=== PATIENT | male | born 1975 | race American Indian/Alaskan Native ===

== ENCOUNTER 2017-01-14 10:23 | Emergency (ER) | payer MEDICAID ==
[2017-01-14 10:25] VITALS: BMI 20.9
[2017-01-14 10:57] VITALS: TEMP 98.2
[2017-01-14] MEDS ORDERED: Sodium Chloride 0.9% 1,000 ML IV STA (11:09)
[2017-01-14] MEDS ORDERED: Multivitamin (MVI) 10 ML, Thiamine 100 MG, Folic Acid 1 MG in Sodium Chloride 0.9% 1,00... IV ONE (11:30)
--- NOTE | 2017-01-14 12:15 | ED PDOC ---
Arrival/HPI - General Chief Complaint: GI Problem Time Seen by Provider: 01/14/17 11:08 Historian: Patient - History of Present Illness Narrative History of Present Illness (Text): 01/14/17 10:09 A 41 year old male, whose past medical history includes alcohol abuse and anxiety, presents to the emergency department complaining of diffuse abdominal pain associated with nausea and non bloody non bilious vomiting since this morning. Patient reports his last drink was last night. He denies any fever, chest pain, shortness of breath or any other complaints at this time. PMD: Dr. Heard Time/Duration: 1-3 hours Symptom Onset: Sudden Symptom Course: Unchanged Quality: Other Activities at Onset: Rest Modifying Factors (Text): none Context: Home Associated Symptoms (Text): nausea and vomiting Past Medical History - Provider Review Nursing Documentation Reviewed: Yes - Infectious Disease Hx of Infectious Diseases: None - Tetanus Immunization Tetanus Immunization: Unknown - Past Medical History Past Medical History: No Previous - Cardiac Hx Cardiac Disorders: Yes Hx Congestive Heart Failure: No Hx Hypertension: Yes - Pulmonary Hx Chronic Obstructive Pulmonary Disease (COPD): No - Neurological HX Cerebrovascular Accident: No - HEENT Hx HEENT Disorder: Yes (wears glasses) Hx Blind: No Hx Cataracts: No Hx Deafness: No Hx Difficulty Chewing: No Hx Epistaxis: No Hx Glaucoma: No Hx Macular Degeneration: No - Renal Hx Renal Failure: No - Endocrine/Metabolic Hx Diabetes Mellitus Type 1: No Hx Diabetes Mellitus Type 2: No Hx Hypothyroidism: No - Hematological/Oncological Hx Blood Disorders: No Hx AIDS: No Hx Anemia: No Hx Cancer: No Hx Chemotherapy: No Hx Cirrhosis: No Hx Hemophilia: No Hx Hepatitis A: No Hx Hepatitis B: No Hx Hepatitis C: No Hx Metastasis: No Hx Shingles: No Hx Sickle Cell Disease: No Hx Unexplained Bleeding: No - Integumentary Hx Dermatological Disorder: No Hx Basal Cell Carcinoma: No Hx Eczema: No Hx Melanoma: No Hx Psoriasis: No Hx Squamous Cell Carcinoma: No - Musculoskeletal/Rheumatological Hx Arthritis: No - Gastrointestinal Hx Gastrointestinal Disorders: Yes Hx Colostomy: No Hx Crohn's Disease: No Hx Diverticulitis: No Hx Gall Bladder Disease: No Hx Gastroesophageal Reflux: Yes Hx Gastrointestinal Ulcer: No Hx Ileostomy: No Hx Liver Failure: No Hx Pancreatitis: No HX Swallowing Problems: No - Genitourinary/Gynecological Hx Genitourinary Disorders: No Hx Hematuria: No Hx Incontinence: No Hx Prostate Problems: No Hx Sexually Transmitted Diseases: No Hx Urinary Tract Infection: No - Psychiatric Hx Psychophysiologic Disorder: Yes (ETOH, substance abuse) Hx Anxiety: Yes Hx Bipolar Disorder: No Hx Depression: Yes Hx Emotional Abuse: No Hx Hallucinations: No Hx Panic Disorder: Yes Hx Post Traumatic Stress Disorder: No Hx Psychosis: No Hx Physical Abuse: No Hx Schizophrenia: No Hx Sexual Abuse: No Hx Substance Use: Yes (cocaine use) - Past Surgical History Past Surgical History: Non-Contributing - Surgical History Hx Amputation: No Hx Appendectomy: No Hx Cardiac Catheterization: No Hx Cholecystectomy: No Hx Coronary Stent: No Hx Gastric Bypass Surgery: No Hx Hysterectomy: No Hx Joint Replacement: No Hx Kidney Transplant: No Hx Liver Transplant: No Hx Mastectomy: No Hx Musculoskeletal Surgery: Yes Hx Open Heart Surgery: No Hx Orthopedic Surgery: Yes Hx Splenectomy: No Hx Valve Replacement: No - Anesthesia Hx Anesthesia: Yes Hx Anesthesia Reactions: No Hx Malignant Hyperthermia: No - Suicidal Assessment Feels Threatened In Home Enviroment: No Family/Social History - Physician Review Nursing Documentation Reviewed: Yes Family/Social History: No Known Family HX Smoking Status: Light Smoker < 10 Cigarettes Daily Hx Alcohol Use: Yes (1 pint of vodka and a couple beers per day) Hx Substance Use: Yes (cocaine use) Substance used: marijuana & coaine Hx Substance Use Treatment: No Allergies/Home Meds Allergies/Adverse Reactions: Allergies No Known Allergies Allergy (Verified 01/14/17 10:28) Review of Systems - Physician Review All systems were reviewed & negative as marked: Yes - Review of Systems Constitutional: absent: Fevers Respiratory: absent: SOB Cardiovascular: absent: Chest Pain Gastrointestinal: Abdominal Pain, Nausea, Vomiting. absent: Hematemesis Physical Exam Vital Signs Reviewed: Yes Vital Signs Temp Pulse Resp BP Pulse Ox 01/14/17 12:04 76 18 144/79 100 01/14/17 10:56 98.2 F 81 18 146/82 100 Temperature: Afebrile Blood Pressure: Normal Pulse: Regular Respiratory Rate: Normal Appearance: Positive for: Well-Appearing, Non-Toxic, Comfortable Pain Distress: None Mental Status: Positive for: Alert and Oriented X 3 - Systems Exam Head: Present: Atraumatic, Normocephalic Pupils: Present: PERRL Extroacular Muscles: Present: EOMI Conjunctiva: Present: Normal Mouth: Present: Moist Mucous Membranes Neck: Present: Normal Range of Motion Respiratory/Chest: Present: Clear to Auscultation, Good Air Exchange. No: Respiratory Distress, Accessory Muscle Use Cardiovascular: Present: Regular Rate and Rhythm, Normal S1, S2. No: Murmurs Abdomen: Present: Tenderness (diffuse mild tenderness with palpation), Normal Bowel Sounds. No: Distention, Peritoneal Signs, Rebound, Guarding Back: Present: Normal Inspection Upper Extremity: Present: Normal Inspection. No: Cyanosis, Edema Lower Extremity: Present: Normal Inspection. No: Edema Neurological: Present: GCS=15, CN II-XII Intact, Speech Normal Skin: Present: Warm, Dry, Normal Color. No: Rashes Psychiatric: Present: Alert, Oriented x 3, Normal Insight, Normal Concentration , Other (tremors noted.) Medical Decision Making ED Course and Treatment: 01/14/17 11:09 Impression: A 41 year old male with multiple visit to the emergency department for similar complaints. Patient presents with diffuse abdominal pain associated with nausea and vomiting. Differential Diagnosis include but are not limited to: gastritis vs. alcohol withdrawal Plan: -- Labs -- Ativan, Banana bag, Pepcid, Zofran and IV Fluids -- Reassess and disposition Prior Visits: Notes and results from previous visits were reviewed. The patient was last in the emergency department on 01/03/17 for evaluation of similar complaints. Patient received Ativan, Pepcid, Zofran and Banana bag. Once patient felt better he was discharged home. Progress Notes: 01/14/17 13:52 Patient resting in bed, eating a sandwich. Labs reviewed. Patient to be discharged and was told to f/u with PMD in 2-3 days. Patient understands plan. - Lab Interpretations Lab Results: 01/14/17 13:00 01/14/17 13:00 Lab Results 01/14/17 13:00: WBC 4.2 L, RBC 4.23, Hgb 12.0 L, Hct 36.1 L, MCV 85.3, MCH 28.4 , MCHC 33.2, RDW 15.5 H, Plt Count 260, MPV 10.3, Gran % 63.3, Lymph % (Auto) 26.4, [place] % (Auto) 9.8 H, Eos % (Auto) 0.0 L, Baso % (Auto) 0.5, Gran # 2.64, Lymph # 1.1 L, [place] # 0.4, Eos # 0.0, Baso # 0.02, Sodium 139, Potassium 4.4, Chloride 101, Carbon Dioxide 24, Anion Gap 18, BUN 17, Creatinine 0.8, Est GFR ( Amer) > 60, Est GFR (Non-Af Amer) > 60, Random Glucose 86, Calcium 10.1 , Total Bilirubin 1.0, AST 67 H, ALT 34, Alkaline Phosphatase 50, Total Protein 8.9 H, Albumin 5.0 H, Globulin 3.9, Albumin/Globulin Ratio 1.3, Lipase 85, Alcohol, Quantitative < 10 I have reviewed the lab results: Yes - Medication Orders Current Medication Orders: Discontinued Medications Famotidine (Pepcid) 20 mg IVP STAT STA Stop: 01/14/17 11:10 Last Admin: 01/14/17 13:01 Dose: 20 MG IVP Administration Document 01/14/17 13:01 [place] (Rec: 01/14/17 13:01 [id number]) Charges for Administration # of IVP Administrations 1 Multivitamins/Vitamin C 10 ml/Thiamine HCl 100 mg/ Folic Acid 1 mg/ Sodium Chloride 1,011.2 mls @ 1,000 mls/hr IV .Q1H1M ONE Stop: 01/14/17 12:30 Last Admin: 01/14/17 13:01 Dose: 1,000 MLS/HR eMAR Start Stop Document 01/14/17 13:01 [place] (Rec: 01/14/17 13:01 [id number]) Intravenous Solution Start Date 01/14/17 Start Time 13:01 End Date 01/14/17 End time 14:01 Total Infusion Time 60 Lorazepam (Ativan) 2 mg IVP STAT STA PRN Reason: Protocol Stop: 01/14/17 11:42 Last Admin: 01/14/17 13:01 Dose: 2 MG Behavioural Document 01/14/17 13:01 [place] (Rec: 01/14/17 13:02 [id number]) Maintenance Maintenance Dose No Nonmedicinal Nonmedicinal Interventions Redirect Behavior Behavior for Medication: Anxiety IVP Administration Document 01/14/17 13:01 [place] (Rec: 01/14/17 13:02 [id number]) Charges for Administration # of IVP Administrations 1 Ondansetron HCl (Zofran Inj) 4 mg IVP STAT STA Stop: 01/14/17 11:10 Last Admin: 01/14/17 13:01 Dose: 4 MG IVP Administration Document 01/14/17 13:01 [place] (Rec: 01/14/17 13:01 [id number]) Charges for Administration # of IVP Administrations 1 - Scribe Statement The provider has reviewed the documentation as recorded by the Ruth Méndez Provider Scribe Attestation: All medical record entries made by the Scribe were at my direction and personally dictated by me. I have reviewed the chart and agree that the record accurately reflects my personal performance of the history, physical exam, medical decision making, and the department course for this patient. I have also personally directed, reviewed, and agree with the discharge instructions and disposition. Disposition/Present on Arrival - Present on Arrival Any Indicators Present on Arrival: No History of DVT/PE: No History of Uncontrolled Diabetes: No Urinary Catheter: No History of Decub. Ulcer: No History Surgical Site Infection Following: None - Disposition Have Diagnosis and Disposition been Completed?: Yes Diagnosis: Alcohol use disorder Disposition: HOME/ ROUTINE Disposition Time: 13:45 Condition: IMPROVED Discharge Instructions (ExitCare): Abuse of Alcohol (ED) Additional Instructions: Thank you for letting us take care of you today. Your provider was Dr. Fields. You were treated for alcohol withdrawal. The emergency medical care you received today was directed at your acute symptoms. If you were prescribed any medication, please fill it and take as directed. It may take several days for your symptoms to resolve. Return to the Emergency Department if your symptoms worsen, do not improve, or if you have any other problems. Please contact your doctor or call one of the physicians/clinics you have been referred to that are listed on the Patient Visit Information form that is included in your discharge packet. Bring any paperwork you were given at discharge with you along with any medications you are taking to your follow up visit. Our treatment cannot replace ongoing medical care by a primary care provider (PCP) outside of the emergency department. Thank you for allowing the [facility] team to be part of your care today. Follow up with your primary doctor in 2-3 days for re-evaluation. Referrals: Griselda Heard MD [Primary Care Provider] - Follow up with primary
[2017-01-14 13:10] LABS: ADD MANUAL DIFF? NO
[2017-01-14 13:18] LABS: BASO # 0.02 K/mm3 (0.0-2.0); BASO % 0.5 % (0.0-3.0); GRAN # 2.64 (1.4-6.5); GRAN % 63.3 % (50.0-68.0); HEMATOCRIT 36.1 % (42.0-52.0); LYMPH # 1.1 (1.2-3.4); LYMPH % 26.4 % (22.0-35.0); MEAN CELL VOLUME 85.3 fL (80.0-105.0); MEAN CORPUSCULAR HEMOGLOBIN 28.4 pg (25.0-35.0); MEAN CORPUSCULAR HGB CONC 33.2 g/dl (31.0-37.0); MEAN PLATELET VOLUME 10.3 fl (7.0-11.0); MONO # 0.4 (0.1-0.6); MONO % 9.8 % (1.0-6.0); PLATELET COUNT 260 10^3/uL (120.0-450.0); RED CELL DISTRIBUTION WIDTH 15.5 % (11.5-14.5); WHITE BLOOD COUNT 4.2 10^3/ul (4.5-11.0)
[2017-01-14 13:22] LABS: ALB/GLOB RATIO 1.3 (1.1-1.8); ALKALINE PHOSPHATASE 50 U/L (38-133); ALT/SGPT 34 U/L (7-56); AST/SGOT 67 U/L (15-59); BLOOD UREA NITROGEN 17 mg/dL (7-21); CALCIUM 10.1 mg/dL (8.4-10.5); CARBON DIOXIDE 24 mmol/L (21-33); CHLORIDE 101 mmol/L (98-107); GFR AFRICAN-AMERICAN > 60; GLUCOSE,RANDOM 86 mg/dL (70-110); LIPASE 85 U/L (23-300); POTASSIUM 4.4 mmol/L (3.6-5.0); SODIUM 139 mmol/L (132-148); TOTAL PROTEIN 8.9 g/dL (5.8-8.3)
[2017-01-14 15:02] VITALS: BP 153/91; PULSE 94; RESP 16; O2SAT 99
== END 2017-01-14 14:15 | disposition home or self-care (01) ==
LOC: ED 10:23
DX: Z72.89 Other problems related to lifestyle (principal)
CPT/HCPCS: 80053; 80320; 83690; 85025; 96365; 96375; 99284; J2060; J2405; J3411; J7040

== ENCOUNTER 2017-01-17 13:02 | Emergency (ER) | payer MEDICAID ==
[2017-01-17 13:14] VITALS: RESP 18; TEMP 98.2; BMI 22.4
[2017-01-17] MEDS ORDERED: Sodium Chloride 0.9% 1,000 ML IV STA (14:11)
--- NOTE | 2017-01-17 14:15 | ED PDOC ---
Arrival/HPI - General Time Seen by Provider: 01/17/17 13:10 Historian: Patient - History of Present Illness Narrative History of Present Illness (Text): 01/17/17 14:15 41 year old male patient with a past medical history that includes alcohol abuse and anxiety presents to emergency department complaining of abdominal pain and "non-stop" vomiting that started last night. Patient claims that he vomited about 8-9 times last night, and continued to vomit today. Patient is currently not vomiting in the ER and is drinking water during the exam. He denies dysuria or diarrhea/constipation. He reports that these symptoms are similar to previous episodes. PMD: Félix Villalobos Time/Duration: 24 hours Symptom Onset: Sudden Symptom Course: Unchanged Modifying Factors (Text): None Associated Symptoms (Text): vomiting, abdominal pain, diarrhea, and shortness of breath. Past Medical History - Provider Review Nursing Documentation Reviewed: Yes - Infectious Disease Hx of Infectious Diseases: None - Tetanus Immunization Tetanus Immunization: Unknown - Past Medical History Past Medical History: No Previous - Cardiac Hx Cardiac Disorders: Yes Hx Congestive Heart Failure: No Hx Hypertension: Yes - Pulmonary Hx Chronic Obstructive Pulmonary Disease (COPD): No - Neurological HX Cerebrovascular Accident: No - HEENT Hx HEENT Disorder: Yes (wears glasses) Hx Blind: No Hx Cataracts: No Hx Deafness: No Hx Difficulty Chewing: No Hx Epistaxis: No Hx Glaucoma: No Hx Macular Degeneration: No - Renal Hx Renal Failure: No - Endocrine/Metabolic Hx Diabetes Mellitus Type 1: No Hx Diabetes Mellitus Type 2: No Hx Hypothyroidism: No - Hematological/Oncological Hx Blood Disorders: No Hx AIDS: No Hx Anemia: No Hx Cancer: No Hx Chemotherapy: No Hx Cirrhosis: No Hx Hemophilia: No Hx Hepatitis A: No Hx Hepatitis B: No Hx Hepatitis C: No Hx Metastasis: No Hx Shingles: No Hx Sickle Cell Disease: No Hx Unexplained Bleeding: No - Integumentary Hx Dermatological Disorder: No Hx Basal Cell Carcinoma: No Hx Eczema: No Hx Melanoma: No Hx Psoriasis: No Hx Squamous Cell Carcinoma: No - Musculoskeletal/Rheumatological Hx Arthritis: No - Gastrointestinal Hx Gastrointestinal Disorders: Yes Hx Colostomy: No Hx Crohn's Disease: No Hx Diverticulitis: No Hx Gall Bladder Disease: No Hx Gastroesophageal Reflux: Yes Hx Gastrointestinal Ulcer: No Hx Ileostomy: No Hx Liver Failure: No Hx Pancreatitis: No HX Swallowing Problems: No - Genitourinary/Gynecological Hx Genitourinary Disorders: No Hx Hematuria: No Hx Incontinence: No Hx Prostate Problems: No Hx Sexually Transmitted Diseases: No Hx Urinary Tract Infection: No - Psychiatric Hx Psychophysiologic Disorder: Yes (ETOH, substance abuse) Hx Anxiety: Yes Hx Bipolar Disorder: No Hx Depression: Yes Hx Emotional Abuse: No Hx Hallucinations: No Hx Panic Disorder: Yes Hx Post Traumatic Stress Disorder: No Hx Psychosis: No Hx Physical Abuse: No Hx Schizophrenia: No Hx Sexual Abuse: No Hx Substance Use: Yes (cocaine use) - Past Surgical History Past Surgical History: Non-Contributing - Surgical History Hx Amputation: No Hx Appendectomy: No Hx Cardiac Catheterization: No Hx Cholecystectomy: No Hx Coronary Stent: No Hx Gastric Bypass Surgery: No Hx Hysterectomy: No Hx Joint Replacement: No Hx Kidney Transplant: No Hx Liver Transplant: No Hx Mastectomy: No Hx Musculoskeletal Surgery: Yes Hx Open Heart Surgery: No Hx Orthopedic Surgery: Yes Hx Splenectomy: No Hx Valve Replacement: No - Anesthesia Hx Anesthesia: Yes Hx Anesthesia Reactions: No Hx Malignant Hyperthermia: No - Suicidal Assessment Feels Threatened In Home Enviroment: No Family/Social History - Physician Review Nursing Documentation Reviewed: Yes Family/Social History: Unknown Family HX Smoking Status: Light Smoker < 10 Cigarettes Daily Hx Alcohol Use: Yes (1 pint of vodka and a couple beers per day) Hx Substance Use: Yes (cocaine use) Substance used: marijuana & coaine Hx Substance Use Treatment: No Allergies/Home Meds Allergies/Adverse Reactions: Allergies No Known Allergies Allergy (Verified 01/14/17 10:28) Review of Systems - Review of Systems Constitutional: absent: Fevers Eyes: absent: Vision Changes ENT: absent: Hearing Changes Respiratory: absent: SOB, Cough, Sputum, Wheezing Cardiovascular: absent: Chest Pain Gastrointestinal: Abdominal Pain, Vomiting. absent: Constipation, Diarrhea Genitourinary Male: absent: Dysuria Musculoskeletal: absent: Back Pain Skin: absent: Rash Neurological: absent: Dizziness, Focal Weakness, Speech Changes Endocrine: absent: Diaphoresis Physical Exam Vital Signs Reviewed: Yes Vital Signs Temp Pulse Resp BP Pulse Ox 01/17/17 17:00 70 18 156/89 H 99 01/17/17 15:03 68 18 146/87 98 01/17/17 13:14 98.2 F 71 18 148/85 100 Temperature: Afebrile Blood Pressure: Normal Pulse: Regular Respiratory Rate: Normal Appearance: Positive for: Well-Appearing Pain Distress: Mild Mental Status: Positive for: Alert and Oriented X 3 - Systems Exam Head: Present: Atraumatic, Normocephalic Pupils: Present: PERRL Extroacular Muscles: Present: EOMI Conjunctiva: Present: Normal Mouth: Present: Moist Mucous Membranes Neck: Present: Normal Range of Motion Respiratory/Chest: Present: Clear to Auscultation, Good Air Exchange. No: Respiratory Distress, Accessory Muscle Use Cardiovascular: Present: Regular Rate and Rhythm, Normal S1, S2. No: Murmurs Abdomen: Present: Tenderness (mild epigastric tenderness), Normal Bowel Sounds. No: Distention, Peritoneal Signs Upper Extremity: Present: Normal Inspection. No: Cyanosis, Edema Lower Extremity: Present: Normal Inspection Neurological: Present: GCS=15, CN II-XII Intact, Speech Normal Skin: Present: Warm, Dry, Normal Color. No: Rashes Psychiatric: Present: Alert, Oriented x 3 Medical Decision Making ED Course and Treatment: Impression: 41 year old male presents to emergency department complaining of vomiting and abdominal pain that started last night. Patient has a hx of alcohol abuse and is presenting with diffuse abdominal pain and nausea/vomiting. He reports last drink last night. He has multiple visits for same. Differential Diagnosis included but are not limited to: Gastritis Plan: -- Zofran, IVF -- labs -- Reassess and disposition Prior Visits: Notes and results from previous visits were reviewed. On 01/14/17 patient came in complaining of abdominal pain, nausea, and vomiting. Patient was discharged home. Progress Notes: 01/17/17 16:29 Patient's labs are grossly normal. Given food and will continue to monitor but if tolerates will dc. 01/17/17 17:03 On reevaluation. patient denies pain and has soft NT/ND abdomen. He is tolerating po. - Lab Interpretations Lab Results: 01/17/17 15:10 01/17/17 15:10 Lab Results 01/17/17 15:23: Urine Color Yellow, Urine Appearance Clear, Urine pH 7.5, Ur Specific [place] 1.020, Urine Protein Trace H, Urine Glucose (UA) Negative, Urine Ketones 15 H, Urine Blood Negative, Urine Nitrate Negative, Urine Bilirubin Negative, Urine Urobilinogen 0.2, Ur Leukocyte Esterase Negative, Urine RBC 0 - 2, Urine WBC 0 - 2, Ur Epithelial Cells 0 - 2, Urine Bacteria Trace 01/17/17 15:10: WBC 4.6, RBC 4.47, Hgb 12.8 L, Hct 38.3 L, MCV 85.7, MCH 28.6, MCHC 33.4, RDW 15.2 H, Plt Count 219, MPV 10.0, Gran % 62.6, Lymph % (Auto) 29.0 , [place] % (Auto) 7.8 H, Eos % (Auto) 0.2 L, Baso % (Auto) 0.4, Gran # 2.89, Lymph # 1.3, [place] # 0.4, Eos # 0.0, Baso # 0.02, Sodium 139, Potassium 3.8, Chloride 99, Carbon Dioxide 25, Anion Gap 19, BUN 13, Creatinine 0.8, Est GFR ( Amer) > 60, Est GFR (Non-Af Amer) > 60, Random Glucose 86, Calcium 9.9, Phosphorus 2.8, Magnesium 1.7, Total Bilirubin 0.9, AST 55, ALT 42, Alkaline Phosphatase 58, Total Protein 8.8 H, Albumin 5.1 H, Globulin 3.8, Albumin/ Globulin Ratio 1.3, Lipase 67, Alcohol, Quantitative < 10 - Medication Orders Current Medication Orders: Discontinued Medications Acetaminophen (Tylenol 325mg Tab) 975 mg PO STAT STA Stop: 01/17/17 16:22 Last Admin: 01/17/17 16:30 Dose: 975 MG MAR Pain/Vitals Document 01/17/17 16:30 OCS (Rec: 01/17/17 16:30 [facility] [id number][place] Pain Reassessment Is This A Pain ReAssessment? Yes Sleep Is patient sleeping during reassessment? No Presence of Pain Presence of Pain Yes Pain Scale Used Pain Scale Used Numeric Location Pain Location Body Aoc Plans [employer] Chief Sodium Chloride (Sodium Chloride 0.9%) 1,000 mls @ 999 mls/hr IV .Q1H1M STA Stop: 01/17/17 15:11 Last Admin: 01/17/17 14:55 Dose: 999 MLS/HR eMAR Start Stop Document 01/17/17 14:55 OCS (Rec: 01/17/17 14:55 [facility] [id number]) Intravenous Solution Start Date 01/17/17 Start Time 14:55 Ondansetron HCl (Zofran Inj) 4 mg IVP STAT STA Stop: 01/17/17 14:12 Last Admin: 01/17/17 14:55 Dose: 4 MG IVP Administration Document 01/17/17 14:55 OCS (Rec: 01/17/17 14:55 [place] [facility] [id number] Charges for Administration # of IVP Administrations 1 - Scribe Statement The provider has reviewed the documentation as recorded by the Scribe Lorna Foreman, training with David Rich All medical record entries made by the Scribe were at my direction and personally dictated by me. I have reviewed the chart and agree that the record accurately reflects my personal performance of the history, physical exam, medical decision making, and the department course for this patient. I have also personally directed, reviewed, and agree with the discharge instructions and disposition. Disposition/Present on Arrival - Present on Arrival Any Indicators Present on Arrival: No History of DVT/PE: No History of Uncontrolled Diabetes: No Urinary Catheter: No History Surgical Site Infection Following: None - Disposition Have Diagnosis and Disposition been Completed?: Yes Diagnosis: Gastritis Disposition: HOME/ ROUTINE Disposition Time: 17:04 Patient Plan: Discharge Patient Problems: Current Active Problems Problem Status Diagnosed Gastritis Acute Condition: GOOD Discharge Instructions (ExitCare): Gastritis (ED) Additional Instructions: Follow up with PMD within 2 days. Return to ED if condition worsens. Referrals: Griselda Heard MD [Primary Care Provider] - Follow up with primary
[2017-01-17 15:22] LABS: ADD MANUAL DIFF? NO; BASO # 0.02 K/mm3 (0.0-2.0); BASO % 0.4 % (0.0-3.0); EOS % 0.2 % (1.5-5.0); GRAN # 2.89 (1.4-6.5); GRAN % 62.6 % (50.0-68.0); HEMATOCRIT 38.3 % (42.0-52.0); LYMPH # 1.3 (1.2-3.4); MEAN CELL VOLUME 85.7 fL (80.0-105.0); MEAN CORPUSCULAR HEMOGLOBIN 28.6 pg (25.0-35.0); MEAN CORPUSCULAR HGB CONC 33.4 g/dl (31.0-37.0); MONO # 0.4 (0.1-0.6); MONO % 7.8 % (1.0-6.0); PLATELET COUNT 219 10^3/uL (120.0-450.0); RED CELL DISTRIBUTION WIDTH 15.2 % (11.5-14.5); WHITE BLOOD COUNT 4.6 10^3/ul (4.5-11.0)
[2017-01-17 15:31] LABS: ALB/GLOB RATIO 1.3 (1.1-1.8); ALKALINE PHOSPHATASE 58 U/L (38-133); ALT/SGPT 42 U/L (7-56); AST/SGOT 55 U/L (15-59); BILIRUBIN,TOTAL 0.9 mg/dL (0.2-1.3); BLOOD UREA NITROGEN 13 mg/dL (7-21); CALCIUM 9.9 mg/dL (8.4-10.5); CARBON DIOXIDE 25 mmol/L (21-33); CHLORIDE 99 mmol/L (98-107); GFR AFRICAN-AMERICAN > 60; GLUCOSE,RANDOM 86 mg/dL (70-110); LIPASE 67 U/L (23-300); MAGNESIUM 1.7 mg/dL (1.7-2.2); PHOSPHOROUS 2.8 mg/dL (2.5-4.5); POTASSIUM 3.8 mmol/L (3.6-5.0); SODIUM 139 mmol/L (132-148); TOTAL PROTEIN 8.8 g/dL (5.8-8.3)
[2017-01-17 15:34] LABS: PH,URINE 7.5 (4.7-8.0); URINE BILIRUBIN NEGATIVE (NEGATIVE); URINE BLOOD NEGATIVE (NEGATIVE); URINE GLUCOSE (UA) NEGATIVE (NEGATIVE); URINE KETONE 15 mg/dL (NEGATIVE); URINE LEUKOCYTE ESTERASE NEGATIVE Leu/uL (NEGATIVE); URINE PROTEIN TRACE mg/dL (<30 mg/dL); URINE UROBILINOGEN 0.2 E.U./dL (<1 E.U./dL)
[2017-01-17 15:36] LABS: URINE APPEARANCE CLEAR (CLEAR); URINE COLOR YELLOW (YELLOW)
[2017-01-17 16:04] LABS: URINE EPITHELIAL CELLS 0 - 2 /hpf (0-5); URINE RBC 0 - 2 /hpf (0-2); URINE WBC 0 - 2 /hpf (0-6)
[2017-01-17 16:05] LABS: URINE BACTERIA TRACE (NEG)
[2017-01-17 17:07] VITALS: BP 156/89; PULSE 70; O2SAT 99
== END 2017-01-17 17:21 | disposition home or self-care (01) ==
LOC: ED 13:02
DX: K29.70 Gastritis, unspecified, without bleeding (principal)
CPT/HCPCS: 80053; 80320; 81001; 83690; 83735; 84100; 85025; 96374; 99283; J2405; J7040

== ENCOUNTER 2017-01-22 12:00 | Emergency (ER) | payer MEDICAID ==
[2017-01-22 12:01] VITALS: BMI 22.4
--- NOTE | 2017-01-22 12:13 | ED PDOC ---
Arrival/HPI - General Chief Complaint: Abdominal Pain Time Seen by Provider: 01/22/17 12:09 Historian: Patient - History of Present Illness Narrative History of Present Illness (Text): 01/22/17 12:13 A 41 year old male, whose past medical history includes alcohol abuse and anxiety, who presents to emergency department complaining non bloody non bilious vomiting that started 20 minutes ago. Patient notes associated left sided abdominal pain. Patient last drank alcohol and used cocaine was last night. Patient denies having any fever, chest pain, shortness of breath, urinary /bowel changes, suicidal/homicidal ideations or any other complaints at this time. PMD: Griselda Flowers Time/Duration: 1/2 hour (20 minutes ago) Symptom Onset: Sudden Symptom Course: Unchanged Quality: Other ("pain") Activities at Onset: Rest Modifying Factors (Text): none Context: Home Associated Symptoms (Text): abdominal pain Past Medical History - Provider Review Nursing Documentation Reviewed: Yes - Infectious Disease Hx of Infectious Diseases: None - Tetanus Immunization Tetanus Immunization: Unknown - Past Medical History Past Medical History: No Previous - Cardiac Hx Cardiac Disorders: Yes Hx Congestive Heart Failure: No Hx Hypertension: Yes - Pulmonary Hx Chronic Obstructive Pulmonary Disease (COPD): No - Neurological HX Cerebrovascular Accident: No - HEENT Hx HEENT Disorder: Yes (wears glasses) Hx Blind: No Hx Cataracts: No Hx Deafness: No Hx Difficulty Chewing: No Hx Epistaxis: No Hx Glaucoma: No Hx Macular Degeneration: No - Renal Hx Renal Failure: No - Endocrine/Metabolic Hx Diabetes Mellitus Type 1: No Hx Diabetes Mellitus Type 2: No Hx Hypothyroidism: No - Hematological/Oncological Hx Blood Disorders: No Hx AIDS: No Hx Anemia: No Hx Cancer: No Hx Chemotherapy: No Hx Cirrhosis: No Hx Hemophilia: No Hx Hepatitis A: No Hx Hepatitis B: No Hx Hepatitis C: No Hx Metastasis: No Hx Shingles: No Hx Sickle Cell Disease: No Hx Unexplained Bleeding: No - Integumentary Hx Dermatological Disorder: No Hx Basal Cell Carcinoma: No Hx Eczema: No Hx Melanoma: No Hx Psoriasis: No Hx Squamous Cell Carcinoma: No - Musculoskeletal/Rheumatological Hx Arthritis: No - Gastrointestinal Hx Gastrointestinal Disorders: Yes Hx Colostomy: No Hx Crohn's Disease: No Hx Diverticulitis: No Hx Gall Bladder Disease: No Hx Gastroesophageal Reflux: Yes Hx Gastrointestinal Ulcer: No Hx Ileostomy: No Hx Liver Failure: No Hx Pancreatitis: No HX Swallowing Problems: No - Genitourinary/Gynecological Hx Genitourinary Disorders: No Hx Hematuria: No Hx Incontinence: No Hx Prostate Problems: No Hx Sexually Transmitted Diseases: No Hx Urinary Tract Infection: No - Psychiatric Hx Psychophysiologic Disorder: Yes (ETOH, substance abuse) Hx Anxiety: Yes Hx Bipolar Disorder: No Hx Depression: Yes Hx Emotional Abuse: No Hx Hallucinations: No Hx Panic Disorder: Yes Hx Post Traumatic Stress Disorder: No Hx Psychosis: No Hx Physical Abuse: No Hx Schizophrenia: No Hx Sexual Abuse: No Hx Substance Use: Yes (cocaine use) - Past Surgical History Past Surgical History: Non-Contributing - Surgical History Hx Amputation: No Hx Appendectomy: No Hx Cardiac Catheterization: No Hx Cholecystectomy: No Hx Coronary Stent: No Hx Gastric Bypass Surgery: No Hx Hysterectomy: No Hx Joint Replacement: No Hx Kidney Transplant: No Hx Liver Transplant: No Hx Mastectomy: No Hx Musculoskeletal Surgery: Yes Hx Open Heart Surgery: No Hx Orthopedic Surgery: Yes Hx Splenectomy: No Hx Valve Replacement: No - Anesthesia Hx Anesthesia: Yes Hx Anesthesia Reactions: No Hx Malignant Hyperthermia: No - Suicidal Assessment Feels Threatened In Home Enviroment: No Family/Social History - Physician Review Nursing Documentation Reviewed: Yes Family/Social History: Unknown Family HX Smoking Status: Light Smoker < 10 Cigarettes Daily Hx Alcohol Use: Yes (1 pint of vodka and a couple beers per day) Hx Substance Use: Yes (cocaine use) Substance used: marijuana & coaine Hx Substance Use Treatment: No Allergies/Home Meds Allergies/Adverse Reactions: Allergies No Known Allergies Allergy (Verified 01/14/17 10:28) Review of Systems - Physician Review All systems were reviewed & negative as marked: Yes - Review of Systems Constitutional: Fatigue Respiratory: absent: SOB Cardiovascular: absent: Chest Pain Gastrointestinal: Abdominal Pain, Vomiting. absent: Stool Changes, Constipation , Diarrhea Genitourinary Male: absent: Dysuria, Frequency, Hematuria, Urinary Output Changes Skin: absent: Rash Physical Exam Vital Signs Reviewed: Yes Vital Signs Temp Pulse Resp BP Pulse Ox 01/22/17 12:14 98.6 F 91 H 16 151/95 H 100 Temperature: Afebrile Blood Pressure: Hypertensive Pulse: Regular Respiratory Rate: Normal Appearance: Positive for: Well-Appearing, Non-Toxic, Comfortable Pain Distress: None Mental Status: Positive for: Alert and Oriented X 3 - Systems Exam Head: Present: Atraumatic, Normocephalic Pupils: Present: PERRL Extroacular Muscles: Present: EOMI Conjunctiva: Present: Normal Mouth: Present: Moist Mucous Membranes Neck: Present: Normal Range of Motion Respiratory/Chest: Present: Clear to Auscultation, Good Air Exchange. No: Respiratory Distress, Accessory Muscle Use Cardiovascular: Present: Regular Rate and Rhythm, Normal S1, S2. No: Murmurs Abdomen: Present: Tenderness (Left Upper tenderness ), Normal Bowel Sounds. No : Distention, Peritoneal Signs, Rebound, Guarding Back: Present: Normal Inspection Upper Extremity: Present: Normal Inspection. No: Cyanosis, Edema Lower Extremity: Present: Normal Inspection. No: Edema Neurological: Present: GCS=15, CN II-XII Intact, Speech Normal, Other (tremor) Skin: Present: Warm, Dry, Normal Color. No: Rashes Psychiatric: Present: Alert, Oriented x 3, Normal Insight, Normal Concentration Medical Decision Making ED Course and Treatment: 01/22/17 12:13 Impression: 41 year old male with abdominal pain and vomiting. Differential Diagnosis included but are not limited to: alcohol withdrawal Plan: -- EKG -- Chest X-ray -- Labs -- Urinalysis -- Ativan, Pepcid, Zofran and IV Fluids -- Reassess and disposition Prior Visits: Notes and results from previous visits were reviewed. The patient last presented to the emergency department on 01/17/17 for evaluation of abdominal pain and vomiting. Progress Notes: EKG: Ordered, reviewed, and independently interpreted the EKG. Rate : 87 BPM Rhythm : NSR Interpretation : T waves in leads V2-V3 (unchanged); LVH by voltage, normal intervals, normal axis. Comparison : No change from previous EKG on 07/06/2017 for comparison. 01/22/17 13:00 Chest X-ray: [place] Consultant : Nathaniel Ho MD COMPARISON: 12/28/2016 FINDINGS: LUNGS: No active pulmonary disease. PLEURA: No significant pleural effusion identified, no pneumothorax apparent. CARDIOVASCULAR: Normal. OSSEOUS STRUCTURES: No significant abnormalities. VISUALIZED UPPER ABDOMEN: Normal. OTHER FINDINGS: None. IMPRESSION: No active disease. 01/22/17 15:44 Patient now with full resolution of symptoms and feeling much better. He has had several sandwiches in the emegency room - will d/c on librium to prevent etoh withdrawal. - Lab Interpretations Lab Results: 01/22/17 12:30 01/22/17 12:30 Lab Results 01/22/17 12:30: WBC 3.9 L, RBC 4.28, Hgb 12.1 L, Hct 37.3 L, MCV 87.1, MCH 28.3 , MCHC 32.4, RDW 15.5 H, Plt Count 205, MPV 10.3, Gran % 65.1, Lymph % (Auto) 25.9, [place] % (Auto) 8.5 H, Eos % (Auto) 0.0 L, Baso % (Auto) 0.5, Gran # 2.51, Lymph # 1.0 L, Hyde # 0.3, Eos # 0.0, Baso # 0.02, PT 10.8, INR 1.00, APTT 25.0 , Sodium 138, Potassium 3.8, Chloride 96 L, Carbon Dioxide 18 L, Anion Gap 28 H , BUN 19, Creatinine 0.9, Est GFR ( Amer) > 60, Est GFR (Non-Af Amer) > 60, Random Glucose 69 L, Calcium 9.4, Magnesium 1.7, Total Bilirubin 0.8, AST 100 H, ALT 45, Alkaline Phosphatase 63, Lactate Dehydrogenase 622, Total Creatine Kinase 318 H, CK-MB (CK-2) 2.4, CK-MB (CK-2) % Cancelled, Troponin I < 0.01, Total Protein 8.8 H, Albumin 5.1 H, Globulin 3.7, Albumin/Globulin Ratio 1.4, Lipase 75, Alcohol, Quantitative 12 H 01/22/17 12:20: Urine Color Yellow, Urine Appearance Clear, Urine pH 5.5, Ur Specific [place] >= 1.030, Urine Protein Trace H, Urine Glucose (UA) Negative, Urine Ketones 15 H, Urine Blood Trace-intact H, Urine Nitrate Negative, Urine Bilirubin Negative, Urine Urobilinogen 0.2, Ur Leukocyte Esterase Negative, Urine RBC 1 - 3, Urine WBC 0 - 2, Ur Epithelial Cells 0 - 2, Urine Bacteria Few , Coarse Granular Casts Gis Technician, Urine Opiates Screen Negative, Urine Methadone Screen Negative, Ur Barbiturates Screen Negative, Ur Phencyclidine Scrn Negative , Ur Amphetamines Screen Negative, U Benzodiazepines Scrn Negative, U Oth Cocaine Metabols Positive H, U Cannabinoids Screen Negative I have reviewed the lab results: Yes - RAD Interpretation Radiology Orders: 01/22/17 12:14 CHEST PORTABLE [RAD] Stat - Medication Orders Current Medication Orders: Discontinued Medications Chlordiazepoxide (Librium) 50 mg PO STAT STA PRN Reason: Protocol Stop: 01/22/17 14:09 Last Admin: 01/22/17 15:02 Dose: 50 MG Behavioural Document 01/22/17 15:02 SE (Rec: 01/22/17 15:02 SE [id number]) Maintenance Maintenance Dose No Nonmedicinal Nonmedicinal Interventions See nurse's notes Behavior Behavior for Medication: Anxiety Famotidine (Pepcid) 20 mg IVP STAT STA Stop: 01/22/17 12:17 Last Admin: 01/22/17 12:40 Dose: 20 MG IVP Administration Document 01/22/17 12:40 SE (Rec: 01/22/17 12:40 SE [id number]) Charges for Administration # of IVP Administrations 1 Sodium Chloride (Sodium Chloride 0.9%) 1,000 mls @ 999 mls/hr IV .Q1H1M STA Stop: 01/22/17 13:15 Last Admin: 01/22/17 12:41 Dose: 999 MLS/HR eMAR Start Stop Document 01/22/17 12:41 SE (Rec: 01/22/17 12:41 SE [id number]) Intravenous Solution Start Date 01/22/17 Start Time 12:41 Folic Acid 1 mg/ Thiamine HCl 100 mg/ Multivitamins/Vitamin C 10 ml/ Dextrose/ Sodium Chloride 1,011.2 mls @ 500 mls/hr IV ONCE ONE Stop: 01/22/17 14:17 Last Admin: 01/22/17 12:53 Dose: 500 MLS/HR eMAR Start Stop Document 01/22/17 12:53 SE (Rec: 01/22/17 12:54 SE [id number]) Intravenous Solution Start Date 01/22/17 Start Time 12:54 Lorazepam (Ativan) 2 mg IVP ONCE ONE PRN Reason: Protocol Stop: 01/22/17 12:16 Last Admin: 01/22/17 12:40 Dose: 2 MG Behavioural Document 01/22/17 12:40 SE (Rec: 01/22/17 12:40 SE [id number]) Maintenance Maintenance Dose No Nonmedicinal Nonmedicinal Interventions See nurse's notes Behavior Behavior for Medication: Anxiety IVP Administration Document 01/22/17 12:40 SE (Rec: 01/22/17 12:40 SE [id number]) Charges for Administration # of IVP Administrations 1 Ondansetron HCl (Zofran Inj) 4 mg IVP STAT STA Stop: 01/22/17 12:17 Last Admin: 01/22/17 12:40 Dose: 4 MG IVP Administration Document 01/22/17 12:40 SE (Rec: 01/22/17 12:40 SE [id number]) Charges for Administration # of IVP Administrations 1 - Scribe Statement The provider has reviewed the documentation as recorded by the Scribe Lorna Foreman, training with Nathaly Méndez Provider Scribe Attestation: All medical record entries made by the Scribe were at my direction and personally dictated by me. I have reviewed the chart and agree that the record accurately reflects my personal performance of the history, physical exam, medical decision making, and the department course for this patient. I have also personally directed, reviewed, and agree with the discharge instructions and disposition. Disposition/Present on Arrival - Present on Arrival Any Indicators Present on Arrival: No History of DVT/PE: No History of Uncontrolled Diabetes: No Urinary Catheter: No History Surgical Site Infection Following: None - Disposition Have Diagnosis and Disposition been Completed?: Yes Diagnosis: Alcohol withdrawal, Vomiting Disposition: HOME/ ROUTINE Disposition Time: 15:50 Patient Plan: Discharge Condition: GOOD Discharge Instructions (ExitCare): Abuse of Alcohol (ED), Alcohol Withdrawal ( ED) Additional Instructions: Drink plenty of fluids. Avoid alcohol use. Use the librium as prescribed for alcohol withdrawal. Follow up in the medical clinic. Return to the emergency department if any new concerning symptoms. Prescriptions: chlordiazePOXIDE [Librium] 2 cap PO Q8H #24 cap Referrals: Griselda Heard MD [Primary Care Provider] - Follow up with primary [facility] [place] [Outside] - Follow up with primary
[2017-01-22 12:14] VITALS: BP 151/95; PULSE 91; RESP 16; TEMP 98.6; O2SAT 100
[2017-01-22] MEDS ORDERED: Sodium Chloride 0.9% 1,000 ML IV STA (12:15)
[2017-01-22] MEDS ORDERED: Folic Acid 1 MG, Thiamine 100 MG, Multivitamin (MVI) 10 ML in Dextrose 5%/0.45% NS 1,00... IV ONE (12:16)
[2017-01-22 12:38] LABS: PH,URINE 5.5 (4.7-8.0); URINE BILIRUBIN NEGATIVE (NEGATIVE); URINE BLOOD TRACE-INTACT (NEGATIVE); URINE GLUCOSE (UA) NEGATIVE (NEGATIVE); URINE KETONE 15 mg/dL (NEGATIVE); URINE LEUKOCYTE ESTERASE NEGATIVE Leu/uL (NEGATIVE); URINE PROTEIN TRACE mg/dL (<30 mg/dL); URINE UROBILINOGEN 0.2 E.U./dL (<1 E.U./dL)
[2017-01-22 12:39] LABS: URINE APPEARANCE CLEAR (CLEAR); URINE COLOR YELLOW (YELLOW)
[2017-01-22 12:43] LABS: URINE BACTERIA FEW (NEG); URINE EPITHELIAL CELLS 0 - 2 /hpf (0-5); URINE WBC 0 - 2 /hpf (0-6)
[2017-01-22 12:45] LABS: ADD MANUAL DIFF? NO
[2017-01-22 12:54] LABS: BASO # 0.02 K/mm3 (0.0-2.0); BASO % 0.5 % (0.0-3.0); GRAN # 2.51 (1.4-6.5); GRAN % 65.1 % (50.0-68.0); HEMATOCRIT 37.3 % (42.0-52.0); LYMPH % 25.9 % (22.0-35.0); MEAN CELL VOLUME 87.1 fL (80.0-105.0); MEAN CORPUSCULAR HEMOGLOBIN 28.3 pg (25.0-35.0); MEAN CORPUSCULAR HGB CONC 32.4 g/dl (31.0-37.0); MEAN PLATELET VOLUME 10.3 fl (7.0-11.0); MONO # 0.3 (0.1-0.6); MONO % 8.5 % (1.0-6.0); PLATELET COUNT 205 10^3/uL (120.0-450.0); RED CELL DISTRIBUTION WIDTH 15.5 % (11.5-14.5); WHITE BLOOD COUNT 3.9 10^3/ul (4.5-11.0)
--- NOTE | 2017-01-22 12:54 | RAD ---
HISTORY: etoh withdrawal COMPARISON: 12/28/2016 FINDINGS: LUNGS: No active pulmonary disease. PLEURA: No significant pleural effusion identified, no pneumothorax apparent. CARDIOVASCULAR: Normal. OSSEOUS STRUCTURES: No significant abnormalities. VISUALIZED UPPER ABDOMEN: Normal. OTHER FINDINGS: None. IMPRESSION: No active disease.
[2017-01-22 13:05] LABS: ALB/GLOB RATIO 1.4 (1.1-1.8); ALKALINE PHOSPHATASE 63 U/L (38-133); ALT/SGPT 45 U/L (7-56); AST/SGOT 100 U/L (15-59); BILIRUBIN,TOTAL 0.8 mg/dL (0.2-1.3); BLOOD UREA NITROGEN 19 mg/dL (7-21); CALCIUM 9.4 mg/dL (8.4-10.5); CARBON DIOXIDE 18 mmol/L (21-33); CHLORIDE 96 mmol/L (98-107); GFR AFRICAN-AMERICAN > 60; GLUCOSE,RANDOM 69 mg/dL (70-110); LIPASE 75 U/L (23-300); MAGNESIUM 1.7 mg/dL (1.7-2.2); POTASSIUM 3.8 mmol/L (3.6-5.0); SODIUM 138 mmol/L (132-148); TOTAL PROTEIN 8.8 g/dL (5.8-8.3)
[2017-01-22 13:15] LABS: TROPONIN I < 0.01 ng/mL
--- NOTE | 2017-01-23 09:09 | CARD ---
APPROVED REPORT EKG Measurement Heart [id number] <Conclusion> Normal sinus rhythm Voltage criteria for left ventricular hypertrophy Abnormal ECG
== END 2017-01-22 16:01 | disposition home or self-care (01) ==
LOC: ED 12:00
DX: F10.239 Alcohol dependence with withdrawal, unspecified (principal); R11.10 Vomiting, unspecified; Y90.0 Blood alcohol level of less than 20 mg/100 ml
CPT/HCPCS: 71010; 80053; 80320; 80324; 80345; 80346; 80349; 80353; 80358; 80361; 81001; 82550; 82553; 83615; 83690; 83735; 83992; 84484; 85025; 85610; 85730; 93005; 96374; 96375; 99284; J2060; J2405; J3411; J7040; J7042

== ENCOUNTER 2017-02-11 08:22 | Inpatient (IN) | payer MEDICAID ==
[2017-02-11 08:34] VITALS: BMI 21.0
--- NOTE | 2017-02-11 08:37 | ED PDOC ---
Arrival/HPI - General Time Seen by Provider: 02/11/17 08:24 Historian: Patient - History of Present Illness Narrative History of Present Illness (Text): 02/11/17 08:37 A 41 year old male, whose past medical history includes alcohol abuse, presents to the emergency department complaining of body tremors since this morning. Patient states this feels similar to his usual alcohol withdrawal symptoms. Patient admits to drinking alcohol last night. Patient denies any fever, nausea , vomiting, abdominal pain, chest pain, shortness of breath, suicidal ideation, homicidal ideation or any other complaints. PMD: Dr. Griselda Heard Time/Duration: Other (This morning) Symptom Course: Unchanged Quality: Other Context: Other Past Medical History - Provider Review Nursing Documentation Reviewed: Yes - Infectious Disease Hx of Infectious Diseases: None - Tetanus Immunization Tetanus Immunization: Unknown - Past Medical History Past Medical History: No Previous - Cardiac Hx Cardiac Disorders: Yes Hx Congestive Heart Failure: No Hx Hypertension: Yes - Pulmonary Hx Chronic Obstructive Pulmonary Disease (COPD): No - Neurological HX Cerebrovascular Accident: No - HEENT Hx HEENT Disorder: Yes (wears glasses) Hx Blind: No Hx Cataracts: No Hx Deafness: No Hx Difficulty Chewing: No Hx Epistaxis: No Hx Glaucoma: No Hx Macular Degeneration: No - Renal Hx Renal Failure: No - Endocrine/Metabolic Hx Diabetes Mellitus Type 1: No Hx Diabetes Mellitus Type 2: No Hx Hypothyroidism: No - Hematological/Oncological Hx Blood Disorders: No Hx AIDS: No Hx Anemia: No Hx Cancer: No Hx Chemotherapy: No Hx Cirrhosis: No Hx Hemophilia: No Hx Hepatitis A: No Hx Hepatitis B: No Hx Hepatitis C: No Hx Metastasis: No Hx Shingles: No Hx Sickle Cell Disease: No Hx Unexplained Bleeding: No - Integumentary Hx Dermatological Disorder: No Hx Basal Cell Carcinoma: No Hx Eczema: No Hx Melanoma: No Hx Psoriasis: No Hx Squamous Cell Carcinoma: No - Musculoskeletal/Rheumatological Hx Arthritis: No - Gastrointestinal Hx Gastrointestinal Disorders: Yes Hx Colostomy: No Hx Crohn's Disease: No Hx Diverticulitis: No Hx Gall Bladder Disease: No Hx Gastroesophageal Reflux: Yes Hx Gastrointestinal Ulcer: No Hx Ileostomy: No Hx Liver Failure: No Hx Pancreatitis: No HX Swallowing Problems: No - Genitourinary/Gynecological Hx Genitourinary Disorders: No Hx Hematuria: No Hx Incontinence: No Hx Prostate Problems: No Hx Sexually Transmitted Diseases: No Hx Urinary Tract Infection: No - Psychiatric Hx Psychophysiologic Disorder: Yes (ETOH, substance abuse) Hx Anxiety: Yes Hx Bipolar Disorder: No Hx Depression: Yes Hx Emotional Abuse: No Hx Hallucinations: No Hx Panic Disorder: Yes Hx Post Traumatic Stress Disorder: No Hx Psychosis: No Hx Physical Abuse: No Hx Schizophrenia: No Hx Sexual Abuse: No Hx Substance Use: Yes (cocaine use) - Past Surgical History Past Surgical History: Non-Contributing - Surgical History Hx Amputation: No Hx Appendectomy: No Hx Cardiac Catheterization: No Hx Cholecystectomy: No Hx Coronary Stent: No Hx Gastric Bypass Surgery: No Hx Hysterectomy: No Hx Joint Replacement: No Hx Kidney Transplant: No Hx Liver Transplant: No Hx Mastectomy: No Hx Musculoskeletal Surgery: Yes Hx Open Heart Surgery: No Hx Orthopedic Surgery: Yes Hx Splenectomy: No Hx Valve Replacement: No - Anesthesia Hx Anesthesia: Yes Hx Anesthesia Reactions: No Hx Malignant Hyperthermia: No - Suicidal Assessment Feels Threatened In Home Enviroment: No Family/Social History - Physician Review Nursing Documentation Reviewed: Yes Family/Social History: No Known Family HX Smoking Status: Light Smoker < 10 Cigarettes Daily Hx Alcohol Use: Yes (1 pint of vodka and a couple beers per day) Hx Substance Use: Yes (cocaine use) Substance used: marijuana & coaine Hx Substance Use Treatment: No Allergies/Home Meds Allergies/Adverse Reactions: Allergies No Known Allergies Allergy (Verified 02/11/17 08:34) Physical Exam - Physical Exam Narrative Physical Exam (Text): - Review of Systems Constitutional: (+) Tremulous absent: Fatigue, Weight Change, Fevers Eyes: Normal ENT: Normal Respiratory: Normal absent: SOB, Cough, Sputum Cardiovascular: Normal absent: Chest pain, Palpitations, Syncope Gastrointestinal: Normal absent: Abdominal pain, Diarrhea, Nausea, Vomiting Genitourinary: Normal. absent: Dysuria, Frequency, Hematuria Musculoskeletal: Normal. absent: Arthralgias, Back Pain, Neck Pain Skin: Normal Neurological: Normal absent: Focal Weakness Endocrine: Normal Hemo/Lymphatic: Normal Psychiatric: Normal - Physical exam Patient appears age appropriate, speaking full sentences without difficulty - Systems Exam Head: Present: Atraumatic, Normocephalic Pupils: Present: PERRL Extraocular Muscles: Present: EOMI Conjunctiva: Present: Normal Mouth: Present: Moist Mucous Membranes Neck: Present: Normal Range of Motion. No: MIDLINE TENDERNESS, Paraspinal Tenderness Respiratory/Chest: Present: Clear to Auscultation, Good Air Exchange. No: Respiratory Distress, Accessory Muscle Use, Tachypneic Cardiovascular: Present: Regular Rate and Rhythm, Normal S1, S2, Peripheral Pulses Present. No: Murmurs Abdomen: Present: Normal Bowel Sounds, No: Tenderness, Peritoneal Signs, Rebound, Guarding, Distention Back: Present: Normal Inspection. No: Midline Tenderness, Paraspinal Tenderness Upper Extremity: Present: Normal Inspection. No: Cyanosis, Edema Lower Extremity: Present: Normal Inspection. No: Edema Neurological: Present: GCS=15, Speech Normal, cranial nerves II through XII fully intact with no cerebellar abnormality, neuro-sensory fully intact. No focal neurological deficits. Skin: Present: Warm, Dry, Normal Color. No: Rashes Lymphatic: Present: OX3, NI, NC Psychiatric: Present: Alert, Oriented x 3, Normal Insight, Normal Concentration Vital Signs Reviewed: Yes Vital Signs Temp Pulse Resp BP Pulse Ox 02/11/17 10:19 71 16 135/87 99 02/11/17 09:06 69 16 129/90 97 02/11/17 08:35 98.3 F 69 16 137/100 H 100 Temperature: Afebrile Blood Pressure: Hypertensive Pulse: Regular Respiratory Rate: Normal Appearance: Positive for: Other (Temulous) Pain Distress: None Mental Status: Positive for: Alert and Oriented X 3 Medical Decision Making ED Course and Treatment: 02/11/17 08:37 Impression: A 41 year old with body tremors. States that his last drink was yesterday evening, and states this feels identical to his previous alcohol withdrawal symptoms he experienced in the past. Tremulous on exam, otherwise unremarkable. Differential Diagnosis included but are not limited to: Alcohol withdrawal Plan: -- Chest xray -- EKG -- Labs -- Aspirin, Ativan and Banana Bag -- Reassess and disposition Progress Notes: Report Date : 02/11/2017 09:13:01 Procedure: Chest xray Dictator : Nathaniel Ho MD IMPRESSION: No active disease. 02/11/17 11:00 Patient reports symptomatic relief after the Ativan Discussed with Dr. Silverio, accepted admission to remote telemetry for alcohol withdrawal. EKG interpreted by ER physician. Normal sinus. No ST-segment elevations. Normal intervals. - Lab Interpretations Lab Results: 02/11/17 10:20 02/11/17 10:20 Lab Results 02/11/17 10:20: WBC 3.8 L, RBC 4.09, Hgb 11.6 L, Hct 35.0 L, MCV 85.6, MCH 28.4 , MCHC 33.1, RDW 16.1 H, Plt Count 193, MPV 10.3, Gran % 57.5, Lymph % (Auto) 32.6, [place] % (Auto) 9.1 H, Eos % (Auto) 0.3 L, Baso % (Auto) 0.5, Gran # 2.20, Lymph # 1.3, [place] # 0.4, Eos # 0.0, Baso # 0.02, PT 11.2, INR 1.04, APTT 26.6, Sodium 143, Potassium 4.0, Chloride 102, Carbon Dioxide 28, Anion Gap 17, BUN 15 , Creatinine 0.9, Est GFR ( Amer) > 60, Est GFR (Non-Af Amer) > 60, Random Glucose 77, Calcium 8.7, Total Bilirubin 0.9, AST 126 H, ALT 73 H, Alkaline Phosphatase 58, Lactate Dehydrogenase 698, Total Creatine Kinase 677 H , CK-MB (CK-2) Pending, CK-MB (CK-2) % Pending, Troponin I Pending, Total Protein 7.7, Albumin 4.1, Globulin 3.5, Albumin/Globulin Ratio 1.2, Lipase 186 - RAD Interpretation Radiology Orders: 02/11/17 08:38 CHEST PORTABLE [RAD] Stat - Medication Orders Current Medication Orders: Folic Acid 1 mg/ Thiamine HCl 100 mg/ Multivitamins/Vitamin C 10 ml/ Dextrose 1 ,011.2 mls @ 100 mls/hr IV .Q10H7M [facility] Last Admin: 02/11/17 10:50 Dose: 100 MLS/HR eMAR Start Stop Document 02/11/17 10:50 HI (Rec: 02/11/17 10:50 HI [id number]) Intravenous Solution Start Date 02/11/17 Start Time 10:50 Discontinued Medications Aspirin (Aspirin Chewable) 324 mg PO STAT STA Stop: 02/11/17 08:39 Last Admin: 02/11/17 10:08 Dose: 324 MG Lorazepam (Ativan) 2 mg IVP ONCE ONE Stop: 02/11/17 08:39 Last Admin: 02/11/17 10:09 Dose: 2 MG Behavioural Document 02/11/17 10:09 HI (Rec: 02/11/17 10:09 [id number] Maintenance Maintenance Dose No Nonmedicinal Nonmedicinal Interventions Redirect Behavior Behavior for Medication: Anxiety IVP Administration Document 02/11/17 10:09 HI (Rec: 02/11/17 10:09 [id number] Charges for Administration # of IVP Administrations 1 - Scribe Statement The provider has reviewed the documentation as recorded by the Viralibtylor Rceinos Provider Scribe Attestation: All medical record entries made by the Scribe were at my direction and personally dictated by me. I have reviewed the chart and agree that the record accurately reflects my personal performance of the history, physical exam, medical decision making, and the department course for this patient. I have also personally directed, reviewed, and agree with the discharge instructions and disposition. Disposition/Present on Arrival - Present on Arrival Any Indicators Present on Arrival: No History of DVT/PE: No History of Uncontrolled Diabetes: No Urinary Catheter: No History Surgical Site Infection Following: None - Disposition Have Diagnosis and Disposition been Completed?: Yes Diagnosis: Alcohol withdrawal Disposition: HOSPITALIZED Disposition Time: 11:02 Patient Plan: Admission Condition: FAIR
[2017-02-11] MEDS ORDERED: Folic Acid 1 MG, Thiamine 100 MG, Multivitamin (MVI) 10 ML in Dextrose 5% In Water 1,00... IV SCH (08:45)
--- NOTE | 2017-02-11 09:14 | RAD ---
HISTORY: cough COMPARISON: 01/22/2017 FINDINGS: LUNGS: No active pulmonary disease. PLEURA: No significant pleural effusion identified, no pneumothorax apparent. CARDIOVASCULAR: Normal. OSSEOUS STRUCTURES: No significant abnormalities. VISUALIZED UPPER ABDOMEN: Normal. OTHER FINDINGS: None. IMPRESSION: No active disease.
[2017-02-11 10:30] LABS: ADD MANUAL DIFF? NO
[2017-02-11 10:33] LABS: BASO # 0.02 K/mm3 (0.0-2.0); BASO % 0.5 % (0.0-3.0); EOS % 0.3 % (1.5-5.0); GRAN % 57.5 % (50.0-68.0); LYMPH # 1.3 (1.2-3.4); LYMPH % 32.6 % (22.0-35.0); MEAN CELL VOLUME 85.6 fL (80.0-105.0); MEAN CORPUSCULAR HEMOGLOBIN 28.4 pg (25.0-35.0); MEAN CORPUSCULAR HGB CONC 33.1 g/dl (31.0-37.0); MEAN PLATELET VOLUME 10.3 fl (7.0-11.0); MONO # 0.4 (0.1-0.6); MONO % 9.1 % (1.0-6.0); PLATELET COUNT 193 10^3/uL (120.0-450.0); RED CELL DISTRIBUTION WIDTH 16.1 % (11.5-14.5); WHITE BLOOD COUNT 3.8 10^3/ul (4.5-11.0)
[2017-02-11 10:44] LABS: ALB/GLOB RATIO 1.2 (1.1-1.8); ALKALINE PHOSPHATASE 58 U/L (38-133); ALT/SGPT 73 U/L (7-56); AST/SGOT 126 U/L (15-59); BILIRUBIN,TOTAL 0.9 mg/dL (0.2-1.3); BLOOD UREA NITROGEN 15 mg/dL (7-21); CALCIUM 8.7 mg/dL (8.4-10.5); CARBON DIOXIDE 28 mmol/L (21-33); CHLORIDE 102 mmol/L (98-107); GFR AFRICAN-AMERICAN > 60; GLUCOSE,RANDOM 77 mg/dL (70-110); INR 1.04 (0.93-1.08); LIPASE 186 U/L (23-300); PARTIAL THROMBOPLASTIN TIME 26.6 Seconds (23.7-30.8); SODIUM 143 mmol/L (132-148); TOTAL PROTEIN 7.7 g/dL (5.8-8.3)
[2017-02-11 11:03] LABS: TROPONIN I < 0.01 ng/mL
--- NOTE | 2017-02-11 12:12 | CARD ---
APPROVED REPORT EKG Measurement Heart [id number] [place] [id number] <Conclusion> Normal sinus rhythm Minimal voltage criteria for LVH, may be normal variant Borderline ECG
--- NOTE | 2017-02-11 14:11 | CP.PCM.HP ---
<Bronwyn Burch - Last Filed: 02/11/17 14:34> History of Present Illness - History of Present Illness History of Present Illness: Note for Hospitalist service HPI: Patient is a 41 yo male with a history of ETOH abuse, hypertension who presents c/o b/l arm tremors, headache, and nausea. Patient reports to drinking one pint of vodka and unknown amount of beer last night. Patient stated that headache, tremors and nausea started upon waking up this morning after last night's drinking and was previously admitted to [facility] for similar symptoms multiple times this year, including last month. Patient reports last use of cocaine insuffulation to be last week. Denies abdominal pain , constipation/diarrhea, dysuria, frequency, urgency, focal weakness, numbness tingling. PMHx: alcohol abuse, anxiety/depression, hypertension, gerd, cocaine PSHx: R foot surgery Allergies: NKDA Family Hx: non-contributory Social Hx: smokes about 1/4 pack daily; drinks one vodka pink daily with additional beers daily; reports intermittent cocaine usage Present on Admission - Present on Admission Any Indicators Present on Admission: No Review of Systems - Review of Systems All systems: reviewed and no additional remarkable complaints except - Constitutional Constitutional: absent: Chills, Fever - Cardiovascular Cardiovascular: absent: Chest Pain, Dyspnea - Respiratory Respiratory: absent: Cough, Dyspnea on Exertion - Gastrointestinal Gastrointestinal: absent: Abdominal Pain, Constipation, Diarrhea - Genitourinary Genitourinary: absent: Change in Urinary Stream, Hematuria Past Patient History - Infectious Disease Hx of Infectious Diseases: None - Tetanus Immunizations Tetanus Immunization: Unknown - Past Medical History & Family History Past Medical History?: Yes - Past Social History Smoking Status: Light Smoker < 10 Cigarettes Daily - CARDIAC Hx Cardiac Disorders: Yes Hx Congestive Heart Failure: No Hx Hypertension: Yes - PULMONARY Hx Chronic Obstructive Pulmonary Disease (COPD): No - NEUROLOGICAL HX Cerebrovascular Accident: No - HEENT Hx HEENT Problems: Yes (wears glasses) Hx Blind: No Hx Cataracts: No Hx Deafness: No Hx Difficulty Chewing: No Hx Epistaxis: No Hx Glaucoma: No Hx Macular Degeneration: No - RENAL Hx Renal Failure: No - ENDOCRINE/METABOLIC Hx Diabetes Mellitus Type 1: No Hx Diabetes Mellitus Type 2: No Hx Hypothyroidism: No - HEMATOLOGICAL/ONCOLOGICAL Hx Blood Disorders: No Hx AIDS: No Hx Anemia: No Hx Cancer: No Hx Chemotherapy: No Hx Cirrhosis: No Hx Hemophilia: No Hx Hepatitis A: No Hx Hepatitis B: No Hx Hepatitis C: No Hx Metastesis: No Hx Shingles: No Hx Sickle Cell Disease: No Hx Unexplained Bleeding: No - INTEGUMENTARY Hx Dermatological Problems: No Hx Basil Cell: No Hx Eczema: No Hx Melanoma: No Hx Psoriasis: No Hx Squamous Cell: No - MUSCULOSKELETAL/RHEUMATOLOGICAL Hx Arthritis: No - GASTROINTESTINAL Hx Gastrointestinal Disorders: Yes Hx Colostomy: No Hx Crohn's Disease: No Hx Diverticulitis: No Hx Gall Bladder Disease: No Hx Gastroesophageal Reflux: Yes Hx Ileostomy: No Hx Liver Failure: No Hx Pancreatitis: No HX Swallowing Problems: No - GENITOURINARY/GYNECOLOGICAL Hx Genitourinary Disorders: No Hx Hematuria: No Hx Incontinence: No Hx Prostate Problems: No Hx Sexually Transmitted Disorders: No Hx Urinary Tract Infection: No - PSYCHIATRIC Hx Psychophysiologic Disorder: Yes (ETOH, substance abuse) Hx Anxiety: Yes Hx Bipolar Disorder: No Hx Depression: Yes Hx Emotional Abuse: No Hx Hallucinations: No Hx Panic Symptoms: Yes Hx Post Traumatic Stress Disorder: No Hx Psychosis: No Hx Physical Abuse: No Hx Schizophrenia: No Hx Sexual Abuse: No Hx Substance Use: Yes (cocaine use) - SURGICAL HISTORY Hx Amputation: No Hx Appendectomy: No Hx Cardiac Catheterization: No Hx Cholecystectomy: No Hx Coronary Stent: No Hx Gastric Bypass Surgery: No Hx Hysterectomy: No Hx Joint Replacement: No Hx Kidney Transplant: No Hx Liver Transplant: No Hx Mastectomy: No Hx Musculoskeletal Surgery: Yes Hx Open Heart Surgery: No Hx Orthopedic Surgery: Yes Hx Splenectomy: No Hx Valve Replacement: No - ANESTHESIA Hx Anesthesia: Yes Hx Anesthesia Reactions: No Hx Malignant Hyperthermia: No Meds Allergies/Adverse Reactions: Allergies Allergy/AdvReac Type Severity Reaction Status Date / Time No Known Allergies Allergy Verified 02/11/17 17:53 Physical Exam - Constitutional Appears: Agitated - Head Exam Head Exam: ATRAUMATIC, NORMOCEPHALIC - Eye Exam Eye Exam: EOMI, Normal appearance Pupil Exam: NORMAL ACCOMODATION, PERRL - Respiratory Exam Respiratory Exam: Clear to Auscultation Bilateral, NORMAL BREATHING PATTERN - Cardiovascular Exam Cardiovascular Exam: Tachycardia, RRR, +S1, +S2 - GI/Abdominal Exam GI & Abdominal Exam: Soft. absent: Tenderness - Exam External exam: absent: Ecchymosis, Erythema - Extremities Exam Extremities exam: Positive for: normal capillary refill, pedal pulses present Additional comments: pt reports metal rods in R ankle - Back Exam Back exam: absent: CVA tenderness (L), CVA tenderness (R) - Neurological Exam Neurological exam: Alert, CN II-XII Intact, Oriented x3 - Psychiatric Exam Additional comments: denies suicidal nor homicidal ideation - Skin Skin Exam: Intact, Warm Results - Vital Signs Recent Vital Signs: Last Vital Signs Temp 98.5 F 02/11/17 12:17 Pulse 97 H 02/11/17 12:17 Resp 16 02/11/17 12:17 BP 128/76 02/11/17 12:17 Pulse Ox 99 02/11/17 12:17 - Labs Result Diagrams: 02/11/17 10:20 02/11/17 10:20 Assessment & Plan - Assessment and Plan (Free Text) Plan: This is a 41Y M with PMH of HTN, Anxiety/depression, alcoholism, cocaine abuse admitted for alcohol withdrawal. Plan: 1. Alcohol withdrawal - Banana bag, thiamine, multivitamin, folic acid - Protonix - Zofran - Librium prn - Neuro check - CIWA protocol - Aspiration and seizure precaution - Alcohol level less than 10 - Counseled on alcohol - NPO diet 2. Hx of HTN - Continue Norvasc 3. Hx of Depression/Anxiety - Continue Paxil 4. Cocaine Abuse - UDS positive - Counseled on drug cessation GI ppx: Protonix DVT ppx: mario alberto thornton Case seen, reviewed and discussed with attending Efrem Burch PGY1 <Nusrat FRANKS,[facility] - Last Filed: 02/13/17 15:51> Results - Vital Signs Recent Vital Signs: Last Vital Signs Temp 97.7 F 02/13/17 06:00 Pulse 83 02/13/17 14:00 Resp 20 02/13/17 06:00 BP 128/79 02/13/17 09:57 Pulse Ox 99 02/13/17 06:00 - Labs Result Diagrams: 02/13/17 07:00 02/13/17 07:00 Labs: Laboratory Results - last 24 hr 02/13/17 07:00 WBC 3.7 L D RBC 4.33 Hgb 12.4 L Hct 36.9 L MCV 85.2 MCH 28.6 MCHC 33.6 RDW 15.3 H Plt Count 173 MPV 10.3 Gran % 55.4 Lymph % (Auto) 35.1 H [place] % (Auto) 7.8 H Eos % (Auto) 1.4 L Baso % (Auto) 0.3 Gran # 2.05 Lymph # 1.3 [place] # 0.3 Eos # 0.1 Baso # 0.01 Sodium 135 Potassium 3.6 Chloride 99 Carbon Dioxide 27 Anion Gap 13 BUN 8 Creatinine 0.9 Est GFR ( Amer) > 60 Est GFR (Non-Af Amer) > 60 Random Glucose 98 Calcium 9.4 Total Bilirubin 0.8 AST 98 H ALT 68 H Alkaline Phosphatase 52 Total Protein 7.6 Albumin 4.2 Globulin 3.4 Albumin/Globulin Ratio 1.2 Attending/Attestation - Attestation I have personally seen and examined this patient.: Yes I have fully participated in the care of the patient.: Yes I have reviewed all pertinent clinical information: Yes Notes (Text): Patient was seen and examined with back office medical assistant .Agreed with resident assessment and plan. 41 Yrs old male with PMH of alcohol abuse, anxiety, non compliance with medication is admitted with mild alcohol withdrawl, will monitor patient with CIWA protocal, Will monitor electrolyte, The issue of chronic alcohol abuse was discussed in detail with patient. Management plan was discussed in detail with patient Education was provided.
[2017-02-11] MEDS ORDERED: Pneumococcal 23-Valent Vaccine IM ONE (18:17)
[2017-02-12] MEDS: Folic Acid 1 MG, Thiamine 100 MG, Multivitamin (MVI) 10 ML in Dextrose 5% In Water 1,00... IV SCH ×3 (04:53→21:24)
[2017-02-12 08:47] VITALS: RESP 20
[2017-02-12 09:17] LABS: ADD MANUAL DIFF? NO
[2017-02-12 09:28] LABS: BASO # 0.02 K/mm3 (0.0-2.0); BASO % 0.7 % (0.0-3.0); EOS # 0.1 (0.0-0.7); EOS % 1.7 % (1.5-5.0); GRAN # 1.42 (1.4-6.5); GRAN % 49.1 % (50.0-68.0); HEMATOCRIT 35.8 % (42.0-52.0); LYMPH # 1.1 (1.2-3.4); LYMPH % 37.4 % (22.0-35.0); MEAN CELL VOLUME 85.4 fL (80.0-105.0); MEAN CORPUSCULAR HEMOGLOBIN 28.4 pg (25.0-35.0); MEAN CORPUSCULAR HGB CONC 33.2 g/dl (31.0-37.0); MEAN PLATELET VOLUME 10.2 fl (7.0-11.0); MONO # 0.3 (0.1-0.6); MONO % 11.1 % (1.0-6.0); PLATELET COUNT 174 10^3/uL (120.0-450.0); RED CELL DISTRIBUTION WIDTH 15.4 % (11.5-14.5)
[2017-02-12 09:31] LABS: WHITE BLOOD COUNT 2.9 10^3/ul (4.5-11.0)
[2017-02-12 09:32] LABS: ALB/GLOB RATIO 1.2 (1.1-1.8); ALKALINE PHOSPHATASE 53 U/L (38-133); ALT/SGPT 72 U/L (7-56); AST/SGOT 106 U/L (15-59); BILIRUBIN,TOTAL 1.3 mg/dL (0.2-1.3); BLOOD UREA NITROGEN 8 mg/dL (7-21); CALCIUM 8.8 mg/dL (8.4-10.5); CARBON DIOXIDE 28 mmol/L (21-33); CHLORIDE 98 mmol/L (98-107); GFR AFRICAN-AMERICAN > 60; GLUCOSE,RANDOM 96 mg/dL (70-110); POTASSIUM 3.3 mmol/L (3.6-5.0); SODIUM 135 mmol/L (132-148); TOTAL PROTEIN 7.3 g/dL (5.8-8.3)
[2017-02-12] MEDS ORDERED: Potassium Chloride 20 mEq ER Tab PO ONE (10:21)
--- NOTE | 2017-02-12 18:23 | CP.PCM.PN ---
<Bronwyn Burch - Last Filed: 02/12/17 18:28> Subjective - Date & Time of Evaluation Date of Evaluation: 02/12/17 Time of Evaluation: 07:45 - Subjective Subjective: pt seen and evaluated at bedside. Pt reports FALCON, and denies vomiting abdominal pain, urinary symptoms. Reports normal BM yesterday. Afebrile overnight. Objective - Vital Signs/Intake and Output Vital Signs (last 24 hours): Temp Pulse Resp BP Pulse Ox 97.9 F 73 20 125/90 98 02/12/17 06:00 02/12/17 14:00 02/12/17 06:00 02/12/17 09:41 02/12/17 06:00 Intake and Output: 02/12/17 02/12/17 06:59 18:59 Intake Total 0 360 Output Total 500 Balance -500 360 - Medications Medications: Current Medications Amlodipine Besylate (Norvasc) 5 mg PO DAILY [facility] Last Admin: 02/12/17 09:41 Dose: 5 mg Chlordiazepoxide (Librium) 25 mg PO Q6 PRN; Protocol PRN Reason: Symptoms of alcohol withdrawl Last Admin: 02/12/17 13:51 Dose: 25 mg Folic Acid 1 mg/ Thiamine HCl 100 mg/ Multivitamins/Vitamin C 10 ml/ Dextrose 1 ,011.2 mls @ 100 mls/hr IV .Q10H7M [facility] Last Admin: 02/12/17 09:40 Dose: 100 mls/hr Ondansetron HCl (Zofran Inj) 4 mg IVP Q4H PRN PRN Reason: Nausea/Vomiting Last Admin: 02/12/17 14:17 Dose: 4 mg Pantoprazole Sodium (Protonix Inj) 40 mg IVP DAILY [facility] Last Admin: 02/12/17 09:41 Dose: 40 mg Paroxetine HCl (Paxil) 10 mg PO HS [facility] - Labs Labs: 02/12/17 09:16 02/12/17 09:16 PT 11.2 Seconds (9.9-11.8) 02/11/17 10:20 INR 1.04 (0.93-1.08) 02/11/17 10:20 APTT 26.6 Seconds (23.7-30.8) 02/11/17 10:20 - Additional Findings Additional findings: - Constitutional Appears: in no acute distress - Head Exam Head Exam: ATRAUMATIC, NORMOCEPHALIC - Eye Exam Eye Exam: EOMI, Normal appearance Pupil Exam: NORMAL ACCOMODATION, PERRL - Respiratory Exam Respiratory Exam: Clear to Auscultation Bilateral, NORMAL BREATHING PATTERN - Cardiovascular Exam Cardiovascular Exam: Bradycardia, +S1, +S2 - GI/Abdominal Exam GI & Abdominal Exam: Soft. absent: Tenderness - Exam External exam: absent: Ecchymosis, Erythema - Extremities Exam Extremities exam: Positive for: normal capillary refill, pedal pulses present Additional comments: pt reports metal rods in R ankle - Back Exam Back exam: absent: CVA tenderness (L), CVA tenderness (R) - Neurological Exam Neurological exam: Alert, Oriented x3 - Psychiatric Exam Additional comments: denies suicidal nor homicidal ideation - Skin Skin Exam: Intact, Warm Assessment and Plan - Assessment and Plan (Free Text) Plan: This is a 41Y M with PMH of HTN, Anxiety/depression, alcoholism, cocaine abuse admitted for alcohol withdrawal. Plan: 1. Alcohol withdrawal - PO thiamine, multivitamin, folic acid - Protonix - Zofran - Librium prn - Neuro check - CIWA protocol - Aspiration and seizure precaution - Alcohol level less than 10 - Counseled on alcohol - reg diet 2. Hx of HTN - Continue Norvasc 3. Hx of Depression/Anxiety - Continue Paxil 4. Cocaine Abuse - UDS positive - Counseled on drug cessation GI ppx: Protonix DVT ppx: mario alberto stocking Pt observed walking unsteadily with nursing assistance this PM, will review in AM Case seen, reviewed and discussed with attending Efrem Burch PGY1 <Nusrat FRANKS,[facility] - Last Filed: 02/13/17 15:52> Objective - Vital Signs/Intake and Output Vital Signs (last 24 hours): Temp Pulse Resp BP Pulse Ox 97.7 F 83 20 128/79 99 02/13/17 06:00 02/13/17 14:00 02/13/17 06:00 02/13/17 09:57 02/13/17 06:00 Intake and Output: 02/13/17 02/13/17 06:59 18:59 Intake Total 2760 840 Output Total 1800 200 Balance 960 640 - Labs Labs: 02/13/17 07:00 02/13/17 07:00 PT 11.2 Seconds (9.9-11.8) 02/11/17 10:20 INR 1.04 (0.93-1.08) 02/11/17 10:20 APTT 26.6 Seconds (23.7-30.8) 02/11/17 10:20 Attending/Attestation - Attestation I have personally seen and examined this patient.: Yes I have fully participated in the care of the patient.: Yes I have reviewed all pertinent clinical information, including history, physical exam and plan: Yes Notes (Text): 02/13/17 15:51 Patient was seen and examined with rn medical surgical .Agreed with resident assessment and plan. Management plan was discussed in detail with patient Education was provided.
[2017-02-13] MEDS: Folic Acid 1 MG, Thiamine 100 MG, Multivitamin (MVI) 10 ML in Dextrose 5% In Water 1,00... IV SCH (05:46)
[2017-02-13 07:30] LABS: ADD MANUAL DIFF? NO
[2017-02-13 07:37] LABS: BASO # 0.01 K/mm3 (0.0-2.0); BASO % 0.3 % (0.0-3.0); EOS # 0.1 (0.0-0.7); EOS % 1.4 % (1.5-5.0); GRAN # 2.05 (1.4-6.5); GRAN % 55.4 % (50.0-68.0); HEMATOCRIT 36.9 % (42.0-52.0); LYMPH # 1.3 (1.2-3.4); LYMPH % 35.1 % (22.0-35.0); MEAN CELL VOLUME 85.2 fL (80.0-105.0); MEAN CORPUSCULAR HEMOGLOBIN 28.6 pg (25.0-35.0); MEAN CORPUSCULAR HGB CONC 33.6 g/dl (31.0-37.0); MEAN PLATELET VOLUME 10.3 fl (7.0-11.0); MONO # 0.3 (0.1-0.6); MONO % 7.8 % (1.0-6.0); PLATELET COUNT 173 10^3/uL (120.0-450.0); RED CELL DISTRIBUTION WIDTH 15.3 % (11.5-14.5); WHITE BLOOD COUNT 3.7 10^3/ul (4.5-11.0)
[2017-02-13 08:25] VITALS: BP 128/79; TEMP 97.7; O2SAT 99
[2017-02-13 08:57] LABS: ALB/GLOB RATIO 1.2 (1.1-1.8); ALKALINE PHOSPHATASE 52 U/L (38-133); ALT/SGPT 68 U/L (7-56); AST/SGOT 98 U/L (15-59); BILIRUBIN,TOTAL 0.8 mg/dL (0.2-1.3); BLOOD UREA NITROGEN 8 mg/dL (7-21); CALCIUM 9.4 mg/dL (8.4-10.5); CARBON DIOXIDE 27 mmol/L (21-33); CHLORIDE 99 mmol/L (95-110); GFR AFRICAN-AMERICAN > 60; GLUCOSE,RANDOM 98 mg/dL (70-110); POTASSIUM 3.6 mmol/L (3.6-5.0); SODIUM 135 mmol/L (132-148); TOTAL PROTEIN 7.6 g/dL (5.8-8.3)
--- NOTE | 2017-02-13 14:20 | CP.PCM.DIS ---
<Bronwyn Burch - Last Filed: 02/13/17 14:28> Provider - Provider Date of Admission: 02/11/17 11:02 Attending physician: Luisito Silverio MD Primary care physician: Griselda Heard MD Consults: none Time Spent in preparation of Discharge (in minutes): 25 Hospital Course - Lab Results Lab Results: Most Recent Lab Values WBC 3.7 10^3/ul (4.5-11.0) L D 02/13/17 07:00 RBC 4.33 10^6/uL (3.5-6.1) 02/13/17 07:00 Hgb 12.4 gm/dL (14.0-18.0) L 02/13/17 07:00 Hct 36.9 % (42.0-52.0) L 02/13/17 07:00 MCV 85.2 fL (80.0-105.0) 02/13/17 07:00 MCH 28.6 pg (25.0-35.0) 02/13/17 07:00 MCHC 33.6 g/dl (31.0-37.0) 02/13/17 07:00 RDW 15.3 % (11.5-14.5) H 02/13/17 07:00 Plt Count 173 10^3/uL (120.0-450.0) 02/13/17 07:00 MPV 10.3 fl (7.0-11.0) 02/13/17 07:00 Gran % 55.4 % (50.0-68.0) 02/13/17 07:00 Lymph % (Auto) 35.1 % (22.0-35.0) H 02/13/17 07:00 [place] % (Auto) 7.8 % (1.0-6.0) H 02/13/17 07:00 Eos % (Auto) 1.4 % (1.5-5.0) L 02/13/17 07:00 Baso % (Auto) 0.3 % (0.0-3.0) 02/13/17 07:00 Gran # 2.05 (1.4-6.5) 02/13/17 07:00 Lymph # 1.3 (1.2-3.4) 02/13/17 07:00 [place] # 0.3 (0.1-0.6) 02/13/17 07:00 Eos # 0.1 (0.0-0.7) 02/13/17 07:00 Baso # 0.01 K/mm3 (0.0-2.0) 02/13/17 07:00 PT 11.2 Seconds (9.9-11.8) 02/11/17 10:20 INR 1.04 (0.93-1.08) 02/11/17 10:20 APTT 26.6 Seconds (23.7-30.8) 02/11/17 10:20 Sodium 135 mmol/L (132-148) 02/13/17 07:00 Potassium 3.6 mmol/L (3.6-5.0) 02/13/17 07:00 Chloride 99 mmol/L (95-110) 02/13/17 07:00 Carbon Dioxide 27 mmol/L (21-33) 02/13/17 07:00 Anion Gap 13 (10-20) 02/13/17 07:00 BUN 8 mg/dL (7-21) 02/13/17 07:00 Creatinine 0.9 mg/dL (0.5-1.4) 02/13/17 07:00 Est GFR ( Amer) > 60 02/13/17 07:00 Est GFR (Non-Af Amer) > 60 02/13/17 07:00 Random Glucose 98 mg/dL (70-110) 02/13/17 07:00 Calcium 9.4 mg/dL (8.4-10.5) 02/13/17 07:00 Total Bilirubin 0.8 mg/dL (0.2-1.3) 02/13/17 07:00 AST 98 U/L (15-59) H 02/13/17 07:00 ALT 68 U/L (7-56) H 02/13/17 07:00 Alkaline Phosphatase 52 U/L (38-133) 02/13/17 07:00 Lactate Dehydrogenase 698 U/L (333-699) 02/11/17 10:20 Total Creatine Kinase 677 U/L (35-230) H 02/11/17 10:20 CK-MB (CK-2) 3.6 ng/mL (0.0-3.6) 02/11/17 10:20 CK-MB (CK-2) % Cancelled 02/11/17 10:20 Troponin I < 0.01 ng/mL 02/11/17 10:20 Total Protein 7.6 g/dL (5.8-8.3) 02/13/17 07:00 Albumin 4.2 g/dL (3.0-4.8) 02/13/17 07:00 Globulin 3.4 gm/dL 02/13/17 07:00 Albumin/Globulin Ratio 1.2 (1.1-1.8) 02/13/17 07:00 Lipase 186 U/L (23-300) 02/11/17 10:20 - Hospital Course Hospital Course: 41 yo male with a history of ETOH abuse, hypertension who presents c/o b/l arm tremors, headache, and nausea. Patient reports to drinking one pint of vodka and unknown amount of beer last night. Pt placed in remote telemetry in fair condition for alcohol withdrawal. On the floor, Pt received IV hydration, multivitamins, folic acid and thiamine while being monitored under ciwa protocol and librium prn for ETOH withdrawal. Diet was advanced as tolerated. Pt discharged home in good condition with prescriptions for PO multivitamins, folic acid and thiamine, instructions to resume home medications because as per patient, pt does not need refills on home medications, and instructions to follow0-up with PMD within two weeks. Pt also discharged with a list with resources for alcoholic rehabilitation. Discharge Exam - Head Exam Head Exam: ATRAUMATIC, NORMOCEPHALIC - Eye Exam Eye Exam: EOMI, Normal appearance - Respiratory Exam Respiratory Exam: NORMAL BREATHING PATTERN, UNREMARKABLE - Cardiovascular Exam Cardiovascular Exam: +S1, +S2. absent: Tachycardia - GI/Abdominal Exam GI & Abdominal Exam: Soft. absent: Tenderness - Exam External exam: absent: Ecchymosis, Erythema - Extremities Exam Extremities exam: normal capillary refill, pedal pulses present - Neurological Exam Neurological exam: Alert, Normal Gait, Oriented x3 - Skin Skin Exam: Intact, Warm Discharge Plan - Discharge Medications Prescriptions: Folic Acid 1 mg PO DAILY #14 tab Multivitamin Therapeutic Tab [Thera Tab] 1 tab PO DAILY #14 tab Thiamine [Vitamin B1 Tab] 100 mg PO DAILY #14 tab - Follow Up Plan Condition: GOOD Disposition: HOME/ ROUTINE Instructions: Acute Abdominal Pain (DC), Acute Abdominal Pain (GEN) Additional Instructions: You are discharged home. Please visit your primary medical physician within two weeks. Please take one tab of folic acid, multivitamins and thiamine per day. Please return to the emergency department for worsening of symptoms. Please resume your home medications. You are given a list of contacts and locations for alcoholic rehabilitation resources to refer to. Referrals: Griselda Heard MD [Primary Care Provider] - <Luisito Silverio MD - Last Filed: 02/13/17 15:54> Provider - Provider Date of Admission: 02/11/17 11:02 Attending physician: Luisito Silverio MD Primary care physician: Griselda Heard MD Hospital Course - Lab Results Lab Results: Most Recent Lab Values WBC 3.7 10^3/ul (4.5-11.0) L D 02/13/17 07:00 RBC 4.33 10^6/uL (3.5-6.1) 02/13/17 07:00 Hgb 12.4 gm/dL (14.0-18.0) L 02/13/17 07:00 Hct 36.9 % (42.0-52.0) L 02/13/17 07:00 MCV 85.2 fL (80.0-105.0) 02/13/17 07:00 MCH 28.6 pg (25.0-35.0) 02/13/17 07:00 MCHC 33.6 g/dl (31.0-37.0) 02/13/17 07:00 RDW 15.3 % (11.5-14.5) H 02/13/17 07:00 Plt Count 173 10^3/uL (120.0-450.0) 02/13/17 07:00 MPV 10.3 fl (7.0-11.0) 02/13/17 07:00 Gran % 55.4 % (50.0-68.0) 02/13/17 07:00 Lymph % (Auto) 35.1 % (22.0-35.0) H 02/13/17 07:00 [place] % (Auto) 7.8 % (1.0-6.0) H 02/13/17 07:00 Eos % (Auto) 1.4 % (1.5-5.0) L 02/13/17 07:00 Baso % (Auto) 0.3 % (0.0-3.0) 02/13/17 07:00 Gran # 2.05 (1.4-6.5) 02/13/17 07:00 Lymph # 1.3 (1.2-3.4) 02/13/17 07:00 [place] # 0.3 (0.1-0.6) 02/13/17 07:00 Eos # 0.1 (0.0-0.7) 02/13/17 07:00 Baso # 0.01 K/mm3 (0.0-2.0) 02/13/17 07:00 PT 11.2 Seconds (9.9-11.8) 02/11/17 10:20 INR 1.04 (0.93-1.08) 02/11/17 10:20 APTT 26.6 Seconds (23.7-30.8) 02/11/17 10:20 Sodium 135 mmol/L (132-148) 02/13/17 07:00 Potassium 3.6 mmol/L (3.6-5.0) 02/13/17 07:00 Chloride 99 mmol/L (95-110) 02/13/17 07:00 Carbon Dioxide 27 mmol/L (21-33) 02/13/17 07:00 Anion Gap 13 (10-20) 02/13/17 07:00 BUN 8 mg/dL (7-21) 02/13/17 07:00 Creatinine 0.9 mg/dL (0.5-1.4) 02/13/17 07:00 Est GFR ( Amer) > 60 02/13/17 07:00 Est GFR (Non-Af Amer) > 60 02/13/17 07:00 Random Glucose 98 mg/dL (70-110) 02/13/17 07:00 Calcium 9.4 mg/dL (8.4-10.5) 02/13/17 07:00 Total Bilirubin 0.8 mg/dL (0.2-1.3) 02/13/17 07:00 AST 98 U/L (15-59) H 02/13/17 07:00 ALT 68 U/L (7-56) H 02/13/17 07:00 Alkaline Phosphatase 52 U/L (38-133) 02/13/17 07:00 Lactate Dehydrogenase 698 U/L (333-699) 02/11/17 10:20 Total Creatine Kinase 677 U/L (35-230) H 02/11/17 10:20 CK-MB (CK-2) 3.6 ng/mL (0.0-3.6) 02/11/17 10:20 CK-MB (CK-2) % Cancelled 02/11/17 10:20 Troponin I < 0.01 ng/mL 02/11/17 10:20 Total Protein 7.6 g/dL (5.8-8.3) 02/13/17 07:00 Albumin 4.2 g/dL (3.0-4.8) 02/13/17 07:00 Globulin 3.4 gm/dL 02/13/17 07:00 Albumin/Globulin Ratio 1.2 (1.1-1.8) 02/13/17 07:00 Lipase 186 U/L (23-300) 02/11/17 10:20 Attending/Attestation - Attestation I have personally seen and examined this patient.: Yes I have fully participated in the care of the patient.: Yes I have reviewed all pertinent clinical information, including history, physical exam and plan: Yes Notes (Text): 02/13/17 15:52 Patient was seen and examined with medical lab tech instructor .Agreed with resident assessment and plan. Patient is feeling better.His alcohol withdrawal has improved.He is ambulatory and is tolerating diet.He has refused to be seen by Psychiatry.He is not suicidal , just anxious The issue of chronic alcohol abuse was discussed in detail with him Management plan was discussed in detail with patient Education was provided.
[2017-02-13 15:15] VITALS: PULSE 83
== END 2017-02-13 03:00 | disposition home or self-care (01) | DRG 751 ==
LOC: ED 08:22 → ERH 11:02 → 3RSO 15:17
PROVIDERS: ADMIT Internal Medicine; ATTEND Internal Medicine
DX: F10.239 Alcohol dependence with withdrawal, unspecified (principal); F14.10 Cocaine abuse, uncomplicated; I10 Essential (primary) hypertension; R51 Headache; K21.9 Gastro-esophageal reflux disease without esophagitis; F32.9 Major depressive disorder, single episode, unspecified; F41.9 Anxiety disorder, unspecified; F17.210 Nicotine dependence, cigarettes, uncomplicated; Z91.14 Patient's other noncompliance with medication regimen

== ENCOUNTER 2017-02-18 12:34 | Inpatient (IN) | payer MEDICAID ==
[2017-02-18 12:34] VITALS: BMI 21.0
[2017-02-18 14:04] LABS: ADD MANUAL DIFF? NO
[2017-02-18 14:07] LABS: BASO # 0.03 K/mm3 (0.0-2.0); BASO % 0.8 % (0.0-3.0); EOS % 0.3 % (1.5-5.0); GRAN # 1.82 (1.4-6.5); GRAN % 51.6 % (50.0-68.0); HEMATOCRIT 32.8 % (42.0-52.0); LYMPH # 1.2 (1.2-3.4); LYMPH % 35.1 % (22.0-35.0); MEAN CELL VOLUME 87.5 fL (80.0-105.0); MEAN CORPUSCULAR HEMOGLOBIN 28.8 pg (25.0-35.0); MEAN CORPUSCULAR HGB CONC 32.9 g/dl (31.0-37.0); MONO # 0.4 (0.1-0.6); MONO % 12.2 % (1.0-6.0); PLATELET COUNT 171 10^3/uL (120.0-450.0); RED CELL DISTRIBUTION WIDTH 16.3 % (11.5-14.5); WHITE BLOOD COUNT 3.5 10^3/ul (4.5-11.0)
--- NOTE | 2017-02-18 14:10 | RAD ---
HISTORY: cough COMPARISON: 02/11/2017 FINDINGS: LUNGS: No active pulmonary disease. PLEURA: No significant pleural effusion identified, no pneumothorax apparent. CARDIOVASCULAR: Normal. OSSEOUS STRUCTURES: No significant abnormalities. VISUALIZED UPPER ABDOMEN: Normal. OTHER FINDINGS: None. IMPRESSION: No active disease.
[2017-02-18 14:16] LABS: ALB/GLOB RATIO 1.3 (1.1-1.8); ALKALINE PHOSPHATASE 61 U/L (38-133); ALT/SGPT 73 U/L (7-56); AST/SGOT 75 U/L (15-59); BILIRUBIN,TOTAL 0.6 mg/dL (0.2-1.3); BLOOD UREA NITROGEN 18 mg/dL (7-21); CALCIUM 8.9 mg/dL (8.4-10.5); CARBON DIOXIDE 23 mmol/L (21-33); CHLORIDE 101 mmol/L (98-107); GFR AFRICAN-AMERICAN > 60; GLUCOSE,RANDOM 53 mg/dL (70-110); LIPASE 58 U/L (23-300); POTASSIUM 3.8 mmol/L (3.6-5.0); SODIUM 142 mmol/L (132-148)
[2017-02-18 14:19] LABS: INR 1.02 (0.93-1.08); PARTIAL THROMBOPLASTIN TIME 25.2 Seconds (23.7-30.8)
--- NOTE | 2017-02-18 14:19 | ED PDOC ---
Arrival/HPI - General Chief Complaint: GI Problem Time Seen by Provider: 02/18/17 13:49 Historian: Patient - History of Present Illness Narrative History of Present Illness (Text): 02/18/17 14:15 A 41 year old male, whose past medical history includes alcohol abuse, presents to the Emergency department complaining of alcohol withdrawal symptoms. Patient reports having last drink yesterday evening. Patient now presents with nausea, vomiting, upper extremity tremor. Patient reports feels like previous withdrawal symptoms. Time/Duration: Other Symptom Onset: Sudden Symptom Course: Unchanged Activities at Onset: Rest Modifying Factors (Text): none Context: Home Associated Symptoms (Text): nausea, vomiting, upper extremity tremor Past Medical History - Provider Review Nursing Documentation Reviewed: Yes - Infectious Disease Hx of Infectious Diseases: None - Tetanus Immunization Tetanus Immunization: Unknown - Past Medical History Past Medical History: No Previous - Cardiac Hx Cardiac Disorders: Yes Hx Congestive Heart Failure: No Hx Hypertension: Yes - Pulmonary Hx Respiratory Disorders: No Hx Chronic Obstructive Pulmonary Disease (COPD): No - Neurological HX Cerebrovascular Accident: No - HEENT Hx HEENT Disorder: Yes (wears glasses) Hx Blind: No Hx Cataracts: No Hx Deafness: No Hx Difficulty Chewing: No Hx Epistaxis: No Hx Glaucoma: No Hx Macular Degeneration: No - Renal Hx Renal Disorder: No Hx Renal Failure: No - Endocrine/Metabolic Hx Endocrine Disorders: No Hx Diabetes Mellitus Type 1: No Hx Diabetes Mellitus Type 2: No Hx Hypothyroidism: No - Hematological/Oncological Hx Blood Disorders: No Hx AIDS: No Hx Anemia: No Hx Cancer: No Hx Chemotherapy: No Hx Cirrhosis: No Hx Hemophilia: No Hx Hepatitis A: No Hx Hepatitis B: No Hx Hepatitis C: No Hx Metastasis: No Hx Shingles: No Hx Sickle Cell Disease: No Hx Unexplained Bleeding: No - Integumentary Hx Dermatological Disorder: No Hx Basal Cell Carcinoma: No Hx Eczema: No Hx Melanoma: No Hx Psoriasis: No Hx Squamous Cell Carcinoma: No - Musculoskeletal/Rheumatological Hx Arthritis: No - Gastrointestinal Hx Gastrointestinal Disorders: Yes Hx Colostomy: No Hx Crohn's Disease: No Hx Diverticulitis: No Hx Gall Bladder Disease: No Hx Gastroesophageal Reflux: Yes Hx Ileostomy: No Hx Liver Failure: No Hx Pancreatitis: No HX Swallowing Problems: No - Genitourinary/Gynecological Hx Genitourinary Disorders: No Hx Hematuria: No Hx Incontinence: No Hx Prostate Problems: No Hx Sexually Transmitted Diseases: No Hx Urinary Tract Infection: No - Psychiatric Hx Psychophysiologic Disorder: Yes (ETOH, substance abuse,SMOKES CIGARETTES) Hx Anxiety: Yes Hx Bipolar Disorder: No Hx Depression: Yes Hx Emotional Abuse: No Hx Hallucinations: No Hx Panic Disorder: Yes Hx Post Traumatic Stress Disorder: No Hx Psychosis: No Hx Physical Abuse: No Hx Schizophrenia: No Hx Sexual Abuse: No Hx Substance Use: No (denies) - Past Surgical History Past Surgical History: Non-Contributing - Surgical History Hx Amputation: No Hx Appendectomy: No Hx Cardiac Catheterization: No Hx Cholecystectomy: No Hx Coronary Stent: No Hx Gastric Bypass Surgery: No Hx Hysterectomy: No Hx Joint Replacement: No Hx Kidney Transplant: No Hx Liver Transplant: No Hx Mastectomy: No Hx Musculoskeletal Surgery: Yes (RIGHT FOOT SX) Hx Open Heart Surgery: No Hx Orthopedic Surgery: Yes Hx Splenectomy: No Hx Valve Replacement: No - Anesthesia Hx Anesthesia: Yes Hx Anesthesia Reactions: No Hx Malignant Hyperthermia: No - Suicidal Assessment Feels Threatened In Home Enviroment: No Family/Social History - Physician Review Nursing Documentation Reviewed: Yes Family/Social History: No Known Family HX Smoking Status: Current Some Days Smoker Hx Alcohol Use: Yes (DRINKS DAILY PINT OF VODKA AND BEER) Frequency of alcohol use: Daily Hx Substance Use: No (denies) Substance used: marijuana & coaine Hx Substance Use Treatment: No Allergies/Home Meds Allergies/Adverse Reactions: Allergies No Known Allergies Allergy (Verified 02/18/17 13:23) Review of Systems - Physician Review All systems were reviewed & negative as marked: Yes Physical Exam - Physical Exam Narrative Physical Exam (Text): 02/18/17 14:19 - Review of Systems Constitutional: Present: upper extremity tremor absent: Fatigue, Weight Change, Fevers Eyes: Normal ENT: Normal Respiratory: Normal absent: SOB, Cough, Sputum Cardiovascular: Normal absent: Chest pain, Palpitations, Syncope Gastrointestinal: Present: nausea, vomiting absent: Abdominal pain, Diarrhea Genitourinary: Normal. absent: Dysuria, Frequency, Hematuria Musculoskeletal: Normal. absent: Arthralgias, Back Pain, Neck Pain Skin: Normal Neurological: Normal absent: Focal Weakness Endocrine: Normal Hemo/Lymphatic: Normal Psychiatric: no suicidal or homicidal ideations - Physical exam Patient appears age appropriate, speaking full sentences without difficulty - Systems Exam Head: Present: Atraumatic, Normocephalic Pupils: Present: PERRL Extraocular Muscles: Present: EOMI Conjunctiva: Present: Normal Mouth: Present: Moist Mucous Membranes Neck: Present: Normal Range of Motion. No: MIDLINE TENDERNESS, Paraspinal Tenderness Respiratory/Chest: Present: Clear to Auscultation, Good Air Exchange. No: Respiratory Distress, Accessory Muscle Use, Tachypneic Cardiovascular: Present: Tachycardic No: Murmurs Abdomen: Present: Normal Bowel Sounds, No: Tenderness, Peritoneal Signs, Rebound, Guarding, Distention Back: Present: Normal Inspection. No: Midline Tenderness, Paraspinal Tenderness Upper Extremity: Present: Normal Inspection. No: Cyanosis, Edema Lower Extremity: Present: Normal Inspection. No: Edema Neurological: Present: GCS=15, Speech Normal, cranial nerves II through XII fully intact with no cerebellar abnormality, neuro-sensory fully intact. No focal neurological deficits. Skin: Present: Warm, Dry, Normal Color. No: Rashes Lymphatic: Present: OX3, NI, NC Psychiatric: Present: Alert, Oriented x 3, Normal Insight, Normal Concentration Vital Signs Reviewed: Yes Vital Signs Temp Pulse Resp BP Pulse Ox 02/18/17 13:21 98.3 F 100 H 16 137/81 98 Temperature: Afebrile Blood Pressure: Normal Pulse: Tachycardic Respiratory Rate: Normal Appearance: Positive for: Well-Appearing, Non-Toxic, Comfortable Pain Distress: None Mental Status: Positive for: Alert and Oriented X 3 Medical Decision Making ED Course and Treatment: 02/18/17 14:22 Impression: 41 year old male with alcohol withdrawal, presents with nausea, vomiting, and upper extremity shaking. No acute findings on physical exam. Differential Diagnosis include but are not limited to: dehydration vs. alcohol withdrawal Plan: -- EKG -- Chest xray -- Labs -- Ativan -- Reassess and disposition Prior Visits: Notes and results from previous visits were reviewed. Patient was recently reported to the Emergency department on 02/11/17 for evaluation of alcohol withdrawal. Progress Notes: EKG: Ordered, reviewed, and independently interpreted the EKG. Rate : 94 BPM Rhythm : NSR Interpretation : No ST-segment elevations or depressions, no T-wave inversions, normal intervals. Comparison : No previous EKG for comparison. Chest xray: Creator : Nathaniel Ho MD IMPRESSION: No active disease. 02/18/17 14:[address] Gunner Lorenzo, accepted pt to remote tele pt aware of and agrees with plan - Lab Interpretations Lab Results: 02/18/17 13:50 02/18/17 13:50 Lab Results 02/18/17 13:50: WBC 3.5 L, RBC 3.75, Hgb 10.8 L, Hct 32.8 L, MCV 87.5, MCH 28.8 , MCHC 32.9, RDW 16.3 H, Plt Count 171, MPV 10.0, Gran % 51.6, Lymph % (Auto) 35.1 H, Hawkins % (Auto) 12.2 H, Eos % (Auto) 0.3 L, Baso % (Auto) 0.8, Gran # 1.82 , Lymph # 1.2, Hawkins # 0.4, Eos # 0.0, Baso # 0.03, PT 11.0, INR 1.02, APTT 25.2 , Sodium 142, Potassium 3.8, Chloride 101, Carbon Dioxide 23, Anion Gap 22 H, BUN 18, Creatinine 0.9, Est GFR ( Amer) > 60, Est GFR (Non-Af Amer) > 60 , Random Glucose 53 L, Calcium 8.9, Total Bilirubin 0.6, AST 75 H, ALT 73 H, Alkaline Phosphatase 61, Total Protein 8.0, Albumin 4.5, Globulin 3.4, Albumin/ Globulin Ratio 1.3, Lipase 58 I have reviewed the lab results: Yes - RAD Interpretation Radiology Orders: 02/18/17 13:50 CHEST PORTABLE [RAD] Stat - EKG Interpretation Interpreted by ED Physician: Yes Type: 12 lead EKG - Medication Orders Current Medication Orders: Folic Acid 1 mg/ Thiamine HCl 100 mg/ Multivitamins/Vitamin C 10 ml/ Dextrose 1 ,011.2 mls @ 100 mls/hr IV .[id number] ALEXANDRA Discontinued Medications Lorazepam (Ativan) 2 mg IVP ONCE ONE Stop: 02/18/17 13:51 Last Admin: 02/18/17 14:07 Dose: 2 MG Behavioural Document 02/18/17 14:07 JOL (Rec: 02/18/17 14:07 JOL [facility] – [id number]) Maintenance Maintenance Dose No Nonmedicinal Nonmedicinal Interventions Redirect Therapeutic Communication Activity Behavior Behavior for Medication: Anxiety IVP Administration Document 02/18/17 14:07 GOLDY (Rec: 02/18/17 14:07 GOLDY [facility] – [id number]) Charges for Administration # of IVP Administrations 1 - Scribe Statement Korin Vasquez All medical record entries made by the Scribe were at my direction and personally dictated by me. I have reviewed the chart and agree that the record accurately reflects my personal performance of the history, physical exam, medical decision making, and the department course for this patient. I have also personally directed, reviewed, and agree with the discharge instructions and disposition. Disposition/Present on Arrival - Present on Arrival Any Indicators Present on Arrival: No History of DVT/PE: No History of Uncontrolled Diabetes: No Urinary Catheter: No History of Decub. Ulcer: No History Surgical Site Infection Following: None - Disposition Have Diagnosis and Disposition been Completed?: Yes Diagnosis: Alcohol withdrawal Disposition: HOSPITALIZED Disposition Time: 14:54 Patient Plan: Admission Condition: FAIR
[2017-02-18] MEDS: Folic Acid 1 MG, Thiamine 100 MG, Multivitamin (MVI) 10 ML in Dextrose 5% In Water 1,00... IV SCH (15:18)
--- NOTE | 2017-02-18 15:39 | CP.PCM.HP ---
<Bronwyn Burch - Last Filed: 02/18/17 16:14> History of Present Illness - History of Present Illness History of Present Illness: 41 yo M w/ PMHx of ETOH abuse, gerd, anxiety/depression, presents with three episodes of vomiting starting this AM. Drank his usual of one pint of vodka and 2 beers the evening before, and woke up this AM vomiting clear emesis w/o blood x3. Also reports tremors, L sided abdominal pain and one episode of diarrhea overnight. Pt denies fever, SOB, cough, chest pain, or urinary changes. PMHx: ETOH abuse, gerd, anxiety/depression Sx HX: R ankle Allergies: NKDA social: 4-5 cig/day x 29 years, MJ use, cocaine insuffulation but not within past week, one pint vodka and 2 beers daily. Present on Admission - Present on Admission Any Indicators Present on Admission: No Review of Systems - Review of Systems All systems: reviewed and no additional remarkable complaints except - Constitutional Constitutional: absent: Chills, Fever - Cardiovascular Cardiovascular: absent: Chest Pain, Dyspnea - Respiratory Respiratory: absent: Cough, Hemoptysis - Gastrointestinal Gastrointestinal: Abdominal Pain, Diarrhea - Genitourinary Genitourinary: Change in Urinary Stream. absent: Hematuria Past Patient History - Infectious Disease Hx of Infectious Diseases: None - Tetanus Immunizations Tetanus Immunization: Unknown - Past Medical History & Family History Past Medical History?: Yes - Past Social History Smoking Status: Current Some Days Smoker - CARDIAC Hx Cardiac Disorders: Yes Hx Congestive Heart Failure: No Hx Hypertension: Yes - PULMONARY Hx Respiratory Disorders: No Hx Chronic Obstructive Pulmonary Disease (COPD): No - NEUROLOGICAL HX Cerebrovascular Accident: No - HEENT Hx HEENT Problems: Yes (wears glasses) Hx Blind: No Hx Cataracts: No Hx Deafness: No Hx Difficulty Chewing: No Hx Epistaxis: No Hx Glaucoma: No Hx Macular Degeneration: No - RENAL Hx Chronic Kidney Disease: No Hx Renal Failure: No - ENDOCRINE/METABOLIC Hx Endocrine Disorders: No Hx Diabetes Mellitus Type 1: No Hx Diabetes Mellitus Type 2: No Hx Hypothyroidism: No - HEMATOLOGICAL/ONCOLOGICAL Hx Blood Disorders: No Hx AIDS: No Hx Anemia: No Hx Cancer: No Hx Chemotherapy: No Hx Cirrhosis: No Hx Hemophilia: No Hx Hepatitis A: No Hx Hepatitis B: No Hx Hepatitis C: No Hx Metastesis: No Hx Shingles: No Hx Sickle Cell Disease: No Hx Unexplained Bleeding: No - INTEGUMENTARY Hx Dermatological Problems: No Hx Basil Cell: No Hx Eczema: No Hx Melanoma: No Hx Psoriasis: No Hx Squamous Cell: No - MUSCULOSKELETAL/RHEUMATOLOGICAL Hx Arthritis: No - GASTROINTESTINAL Hx Gastrointestinal Disorders: Yes Hx Colostomy: No Hx Crohn's Disease: No Hx Diverticulitis: No Hx Gall Bladder Disease: No Hx Gastroesophageal Reflux: Yes Hx Ileostomy: No Hx Liver Failure: No Hx Pancreatitis: No HX Swallowing Problems: No - GENITOURINARY/GYNECOLOGICAL Hx Genitourinary Disorders: No Hx Hematuria: No Hx Incontinence: No Hx Prostate Problems: No Hx Sexually Transmitted Disorders: No Hx Urinary Tract Infection: No - PSYCHIATRIC Hx Psychophysiologic Disorder: Yes (ETOH, substance abuse,SMOKES CIGARETTES) Hx Anxiety: Yes Hx Bipolar Disorder: No Hx Depression: Yes Hx Emotional Abuse: No Hx Hallucinations: No Hx Panic Symptoms: Yes Hx Post Traumatic Stress Disorder: No Hx Psychosis: No Hx Physical Abuse: No Hx Schizophrenia: No Hx Sexual Abuse: No Hx Substance Use: No (denies) - SURGICAL HISTORY Hx Amputation: No Hx Appendectomy: No Hx Cardiac Catheterization: No Hx Cholecystectomy: No Hx Coronary Stent: No Hx Gastric Bypass Surgery: No Hx Hysterectomy: No Hx Joint Replacement: No Hx Kidney Transplant: No Hx Liver Transplant: No Hx Mastectomy: No Hx Musculoskeletal Surgery: Yes (RIGHT FOOT SX) Hx Open Heart Surgery: No Hx Orthopedic Surgery: Yes Hx Splenectomy: No Hx Valve Replacement: No - ANESTHESIA Hx Anesthesia: Yes Hx Anesthesia Reactions: No Hx Malignant Hyperthermia: No Meds Allergies/Adverse Reactions: Allergies Allergy/AdvReac Type Severity Reaction Status Date / Time No Known Allergies Allergy Verified 02/18/17 13:23 Physical Exam - Constitutional Appears: No Acute Distress, Unkempt - Head Exam Head Exam: ATRAUMATIC, NORMOCEPHALIC - Eye Exam Eye Exam: EOMI, Normal appearance - Respiratory Exam Respiratory Exam: Clear to Auscultation Bilateral, NORMAL BREATHING PATTERN - Cardiovascular Exam Cardiovascular Exam: Tachycardia, +S1, +S2 - GI/Abdominal Exam GI & Abdominal Exam: Soft, Tenderness (LUQ). absent: Guarding - Exam External exam: absent: Ecchymosis, Erythema - Extremities Exam Extremities exam: Positive for: normal capillary refill, pedal pulses present. Negative for: tenderness - Neurological Exam Neurological exam: Alert, Oriented x3 - Skin Skin Exam: Intact, Normal Color Results - Vital Signs Recent Vital Signs: Last Vital Signs Temp 98.3 F 02/18/17 13:21 Pulse 91 H 02/18/17 15:00 Resp 18 02/18/17 15:00 BP 132/79 02/18/17 15:00 Pulse Ox 98 02/18/17 15:00 - Labs Result Diagrams: 02/18/17 13:50 02/18/17 13:50 Labs: Laboratory Results - last 24 hr 02/18/17 13:50 WBC 3.5 L RBC 3.75 Hgb 10.8 L Hct 32.8 L MCV 87.5 MCH 28.8 MCHC 32.9 RDW 16.3 H Plt Count 171 MPV 10.0 Gran % 51.6 Lymph % (Auto) 35.1 H Hyde % (Auto) 12.2 H Eos % (Auto) 0.3 L Baso % (Auto) 0.8 Gran # 1.82 Lymph # 1.2 Hyde # 0.4 Eos # 0.0 Baso # 0.03 PT 11.0 INR 1.02 APTT 25.2 Sodium 142 Potassium 3.8 Chloride 101 Carbon Dioxide 23 Anion Gap 22 H BUN 18 Creatinine 0.9 Est GFR ( Amer) > 60 Est GFR (Non-Af Amer) > 60 Random Glucose 53 L Calcium 8.9 Total Bilirubin 0.6 AST 75 H ALT 73 H Alkaline Phosphatase 61 Total Protein 8.0 Albumin 4.5 Globulin 3.4 Albumin/Globulin Ratio 1.3 Lipase 58 Assessment & Plan - Assessment and Plan (Free Text) Plan: This is a 41Y M with PMHx of ETOH abuse/withdrawal, polysubstance abuse, Anxiety /depression, admitted for alcohol withdrawal. Alcohol withdrawal - Banana bag, thiamine, multivitamin, folic acid - Protonix - Zofran - Ativan prn and marlene - Neuro check - CIWA protocol - Aspiration and seizure precaution - Alcohol level 12 - Counseled on alcohol - NPO diet Hx of Depression/Anxiety - Continue Paxil Cocaine Abuse - UDS positive - Counseled on drug cessation GI ppx: Protonix DVT ppx: mario alberto thornton Case seen, reviewed and discussed with attending Efrem Burch PGY1 <Addie Melendez - Last Filed: 02/18/17 17:15> Results - Vital Signs Recent Vital Signs: Last Vital Signs Temp 98.3 F 02/18/17 13:21 Pulse 91 H 02/18/17 15:00 Resp 18 02/18/17 15:00 BP 132/79 02/18/17 15:00 Pulse Ox 98 02/18/17 15:00 - Labs Result Diagrams: 02/18/17 13:50 02/18/17 13:50 Attending/Attestation - Attestation I have personally seen and examined this patient.: Yes I have fully participated in the care of the patient.: Yes I have reviewed all pertinent clinical information: Yes Notes (Text): 02/18/17 17:08 41 year old male with past medical history of chronic ETOH abuse, substance abuse, anxiety, and depression who presented with complaint of nausea, vomiting , left sided abdominal pain and alcohol withdrawal. Will start on banana bag and ativan marlene/prn for withdrawal symptoms. Patient was counselled on alcohol abstinence on multiple admissions, unfortunately he fails to comply. On examination he has left sided abdomen tenderness. Lipase is negative. He also complains of loose stools. Will obtain CT abd/pelvis to rule out colitis in addition to checking stool for cdif. NPO with iv fluids, protonix and antiemetics for now. Can advance to liquid diet as tolerated if CT scan is negative. Addie Melendez MD Hospitalist.
[2017-02-18] MEDS ORDERED: Dextrose 50% SYRINGE Inj (50 ml) IVP ONE (20:05)
[2017-02-18] MEDS ORDERED: Dextrose 50% SYRINGE Inj (50 ml) ONE (20:08)
--- NOTE | 2017-02-18 21:12 | CT ---
EXAM: CT Abdomen and Pelvis Without Intravenous Contrast CLINICAL HISTORY: 41 years old, male; Pain; Abdominal pain; Localized; Left; Additional info: L sided abdominal pain TECHNIQUE: Axial computed tomography images of the abdomen and pelvis without intravenous contrast. This CT exam was performed using one or more of the following dose reduction techniques: automated exposure control, adjustment of the mA and/or kV according to patient size, and/or use of iterative reconstruction technique. Coronal and sagittal reformatted images were created and reviewed. EXAM DATE/TIME: 02/18/2017 3:33 PM COMPARISON: Prior CT abdomen and pelvis of 12/29/2016 FINDINGS: LIMITATIONS: Exam is somewhat limited by mild streak/motion artifact. LOWER THORAX: No infiltrate seen in the lung bases. ABDOMEN: LIVER: No acute abnormality of the liver identified. GALLBLADDER AND BILE DUCTS: No CT evidence of acute cholecystitis. No evidence of significant biliary ductal dilatation. PANCREAS: No CT evidence of acute pancreatitis. SPLEEN: No acute abnormality of the spleen identified. ADRENALS: No acute abnormality of the adrenal glands identified. KIDNEYS AND URETERS: No acute abnormality of the kidneys seen. No evidence of hydroureteronephrosis. STOMACH AND BOWEL: Scattered colonic diverticulosis, without evidence of diverticulitis. Otherwise, no significant abnormality of the bowel is identified. No acute abnormality of the stomach or duodenum identified. No evidence of small bowel obstruction. APPENDIX: High density material seen in the lumen of the appendix. This could represent retained oral contrast from a prior study versus appendicoliths. There are no findings to suggest acute appendicitis. PELVIS: BLADDER: No acute abnormality of the bladder identified. REPRODUCTIVE: Prostate gland is mildly enlarged. ABDOMEN and PELVIS: INTRAPERITONEAL SPACE: No evidence of free intraperitoneal air or fluid. BONES/JOINTS: No acute fractures or other acute bony abnormality noted. SOFT TISSUES: No acute abnormality of the visualized soft tissues is seen. VASCULATURE: No evidence of abdominal aortic aneurysm. No evidence of periaortic hemorrhage. LYMPH NODES: No evidence of diffuse lymphadenopathy. IMPRESSION: - No evidence of significant acute process on this unenhanced exam. No definite cause for pain identified. - See above for remaining findings.
[2017-02-18] MEDS ORDERED: Pneumococcal 23-Valent Vaccine IM ONE (23:19)
[2017-02-19 00:42] VITALS: RESP 20
[2017-02-19] MEDS: Folic Acid 1 MG, Thiamine 100 MG, Multivitamin (MVI) 10 ML in Dextrose 5% In Water 1,00... IV SCH ×2 (01:15→15:31)
[2017-02-19 08:44] LABS: BASO # 0.01 K/mm3 (0.0-2.0); BASO % 0.5 % (0.0-3.0); EOS % 1.4 % (1.5-5.0); GRAN # 0.56 (1.4-6.5); HEMATOCRIT 33.9 % (42.0-52.0); LYMPH # 1.1 (1.2-3.4); LYMPH % 51.6 % (22.0-35.0); MEAN CELL VOLUME 85.8 fL (80.0-105.0); MEAN CORPUSCULAR HEMOGLOBIN 28.4 pg (25.0-35.0); MEAN PLATELET VOLUME 10.1 fl (7.0-11.0); MONO # 0.4 (0.1-0.6); MONO % 20.5 % (1.0-6.0); PLATELET COUNT 189 10^3/uL (120.0-450.0); RED CELL DISTRIBUTION WIDTH 15.7 % (11.5-14.5)
[2017-02-19 08:50] LABS: ADD MANUAL DIFF? NO; WHITE BLOOD COUNT 2.2 10^3/ul (4.5-11.0)
[2017-02-19 08:54] LABS: ALB/GLOB RATIO 1.3 (1.1-1.8); ALKALINE PHOSPHATASE 55 U/L (38-133); ALT/SGPT 69 U/L (7-56); AST/SGOT 62 U/L (15-59); BILIRUBIN,TOTAL 1.1 mg/dL (0.2-1.3); BLOOD UREA NITROGEN 13 mg/dL (7-21); CALCIUM 8.9 mg/dL (8.4-10.5); CARBON DIOXIDE 28 mmol/L (21-33); CHLORIDE 94 mmol/L (98-107); GFR AFRICAN-AMERICAN > 60; GLUCOSE,RANDOM 93 mg/dL (70-110); POTASSIUM 3.6 mmol/L (3.6-5.0); SODIUM 134 mmol/L (132-148); TOTAL PROTEIN 7.8 g/dL (5.8-8.3)
--- NOTE | 2017-02-19 10:59 | CP.PCM.PN ---
Addendum entered and electronically signed by Bronwyn Burch DO 02/19/17 13:46: - Constitutional Appears: No Acute Distress, Unkempt - Head Exam Head Exam: ATRAUMATIC, NORMOCEPHALIC - Eye Exam Eye Exam: EOMI, Normal appearance - Respiratory Exam Respiratory Exam: Clear to Auscultation Bilateral, NORMAL BREATHING PATTERN - Cardiovascular Exam Cardiovascular Exam: +S1, +S2, Negative for: bradycardia - GI/Abdominal Exam GI & Abdominal Exam: Soft absent: Guarding - Exam External exam: absent: Ecchymosis, Erythema - Extremities Exam Extremities exam: Positive for: normal capillary refill, pedal pulses present. Negative for: tenderness - Neurological Exam Neurological exam: Alert, Oriented x3 - Skin Skin Exam: Intact, Normal Color Original Note: <Bronwyn Burch - Last Filed: 02/19/17 13:45> Subjective - Date & Time of Evaluation Date of Evaluation: 02/19/17 Time of Evaluation: 07:30 - Subjective Subjective: Pt seen and evaluated at the bedside. Pt denies SOB, abdominal pain, n/v. No urinary complaints and last BM was days prior. Afebrile overnight. Objective - Vital Signs/Intake and Output Vital Signs (last 24 hours): Temp Pulse Resp BP Pulse Ox 98 F 74 20 121/81 100 02/19/17 00:01 02/19/17 02:00 02/19/17 00:01 02/19/17 00:01 02/18/17 17:00 Intake and Output: 02/19/17 02/19/17 06:59 18:59 Intake Total 1200 Output Total 0 Balance 1200 - Medications Medications: Current Medications Folic Acid (Folic Acid) 1 mg PO DAILY [facility] Lorazepam (Ativan) 2 mg IVP Q3H PRN; Protocol PRN Reason: Anxiety Lorazepam (Ativan) 2 mg IVP Q6H MARLENE PRN Reason: Protocol Last Admin: 02/19/17 10:17 Dose: 2 mg Multivitamins (Thera Tab) 1 tab PO DAILY [facility] Ondansetron HCl (Zofran Inj) 4 mg IVP Q4H PRN PRN Reason: Nausea/Vomiting Last Admin: 02/18/17 15:51 Dose: 4 mg Pantoprazole Sodium (Protonix Inj) 40 mg IVP DAILY [facility] Last Admin: 02/19/17 10:17 Dose: 40 mg Paroxetine HCl (Paxil) 10 mg PO HS MARLENE Thiamine HCl (Vitamin B1 Tab) 100 mg PO DAILY MARLENE - Labs Labs: 02/19/17 08:20 02/19/17 08:20 PT 11.0 Seconds (9.9-11.8) 02/18/17 13:50 INR 1.02 (0.93-1.08) 02/18/17 13:50 APTT 25.2 Seconds (23.7-30.8) 02/18/17 13:50 Assessment and Plan - Assessment and Plan (Free Text) Plan: This is a 41Y M with PMHx of ETOH abuse/withdrawal, polysubstance abuse, Anxiety /depression, admitted for alcohol withdrawal. Alcohol withdrawal - ADAT, (will try regular diet for dinner), PO thiamine, multivitamin, and folic acid - Protonix - Zofran - Ativan prn and marlene - Neuro check - CIWA protocol - Aspiration and seizure precaution - Alcohol level 12 - Counseled on alcohol L Abdominal tenderness CT abd w/o positive findings c.diff stool ordered Hx of Depression/Anxiety - Continue Paxil Cocaine Abuse - UDS positive - Counseled on drug cessation GI ppx: Protonix DVT ppx: SCD Case seen, reviewed and discussed with attending Efrem Burch PGY1 <Addie Melendez - Last Filed: 02/19/17 16:10> Objective - Vital Signs/Intake and Output Vital Signs (last 24 hours): Temp Pulse Resp BP Pulse Ox 99.0 F 80 20 136/77 100 02/19/17 12:00 02/19/17 14:00 02/19/17 12:00 02/19/17 12:00 02/18/17 17:00 Intake and Output: 02/19/17 02/19/17 06:59 18:59 Intake Total 1200 1040 Output Total 0 Balance 1200 1040 - Medications Medications: Current Medications Folic Acid (Folic Acid) 1 mg PO DAILY [facility] Last Admin: 02/19/17 13:20 Dose: 1 mg Lorazepam (Ativan) 1 mg IVP Q3H PRN; Protocol PRN Reason: Anxiety Lorazepam (Ativan) 1 mg IVP Q6H MARLENE PRN Reason: Protocol Last Admin: 02/19/17 15:41 Dose: 1 mg Multivitamins (Thera Tab) 1 tab PO DAILY [facility] Ondansetron HCl (Zofran Inj) 4 mg IVP Q4H PRN PRN Reason: Nausea/Vomiting Last Admin: 02/18/17 15:51 Dose: 4 mg Pantoprazole Sodium (Protonix Inj) 40 mg IVP DAILY [facility] Last Admin: 02/19/17 10:17 Dose: 40 mg Paroxetine HCl (Paxil) 10 mg PO HS [facility] Thiamine HCl (Vitamin B1 Tab) 100 mg PO DAILY [facility] Last Admin: 02/19/17 13:21 Dose: 100 mg - Labs Labs: 02/19/17 08:20 02/19/17 08:20 PT 11.0 Seconds (9.9-11.8) 02/18/17 13:50 INR 1.02 (0.93-1.08) 02/18/17 13:50 APTT 25.2 Seconds (23.7-30.8) 02/18/17 13:50 Attending/Attestation - Attestation I have personally seen and examined this patient.: Yes I have fully participated in the care of the patient.: Yes I have reviewed all pertinent clinical information, including history, physical exam and plan: Yes Notes (Text): 02/19/17 16:09 41 year old male with past medical history of chronic ETOH abuse, substance abuse, anxiety, and depression who presented with complaint of nausea, vomiting , left sided abdominal pain and alcohol withdrawal. He has received banana bag. He is on multivitamin, folic acid and thiamine. He is on ativan prn and marlene for withdrawal symptoms which we will begin to taper. He was counselled on alcohol abstinence. His left sided abdominal pain has improved. CT scan was negative. Will advance diet as tolerated. Diarrhea has also resolved. Addie Melendez MD Hospitalist.
--- NOTE | 2017-02-19 11:24 | CARD ---
APPROVED REPORT EKG Measurement Heart [id number] <Conclusion> Normal sinus rhythm Voltage criteria for left ventricular hypertrophy Abnormal ECG
[2017-02-20 08:30] LABS: HEMATOCRIT 36.3 % (42.0-52.0); MEAN CELL VOLUME 86.4 fL (80.0-105.0); MEAN CORPUSCULAR HEMOGLOBIN 28.6 pg (25.0-35.0); MEAN CORPUSCULAR HGB CONC 33.1 g/dl (31.0-37.0); MEAN PLATELET VOLUME 10.3 fl (7.0-11.0); PLATELET COUNT 195 10^3/uL (120.0-450.0); RED CELL DISTRIBUTION WIDTH 15.5 % (11.5-14.5); WHITE BLOOD COUNT 3.3 10^3/ul (4.5-11.0)
[2017-02-20 08:32] VITALS: BP 116/87; PULSE 69; TEMP 98.2; O2SAT 100
[2017-02-20 08:39] LABS: ALB/GLOB RATIO 1.3 (1.1-1.8); ALKALINE PHOSPHATASE 56 U/L (38-133); ALT/SGPT 61 U/L (7-56); AST/SGOT 50 U/L (15-59); BILIRUBIN,TOTAL 0.4 mg/dL (0.2-1.3); BLOOD UREA NITROGEN 15 mg/dL (7-21); CALCIUM 9.6 mg/dL (8.4-10.5); CARBON DIOXIDE 28 mmol/L (21-33); CHLORIDE 98 mmol/L (95-110); GFR AFRICAN-AMERICAN > 60; GLUCOSE,RANDOM 106 mg/dL (70-110); SODIUM 137 mmol/L (132-148); TOTAL PROTEIN 7.7 g/dL (5.8-8.3)
[2017-02-20 09:02] LABS: ADD MANUAL DIFF? YES
[2017-02-20 09:31] LABS: ANISOCYTOSIS SLIGHT; BAND 1 % (0-2); NEUTROPHIL 31 % (50.0-70.0); PLATELET ESTIMATE NORMAL (NORMAL)
[2017-02-20] MEDS ORDERED: Multivitamin Therapeutic Tab PO SCH (10:00)
--- NOTE | 2017-02-20 13:31 | CP.PCM.DIS ---
<Bronwyn Burch - Last Filed: 02/20/17 15:41> Provider - Provider Date of Admission: 02/18/17 14:55 Attending physician: Addie Melendez MD Primary care physician: Griselda Heard MD Consults: none Time Spent in preparation of Discharge (in minutes): 35 Hospital Course - Lab Results Lab Results: Most Recent Lab Values WBC 3.3 10^3/ul (4.5-11.0) L D 02/20/17 08:00 RBC 4.20 10^6/uL (3.5-6.1) 02/20/17 08:00 Hgb 12.0 gm/dL (14.0-18.0) L 02/20/17 08:00 Hct 36.3 % (42.0-52.0) L 02/20/17 08:00 MCV 86.4 fL (80.0-105.0) 02/20/17 08:00 MCH 28.6 pg (25.0-35.0) 02/20/17 08:00 MCHC 33.1 g/dl (31.0-37.0) 02/20/17 08:00 RDW 15.5 % (11.5-14.5) H 02/20/17 08:00 Plt Count 195 10^3/uL (120.0-450.0) 02/20/17 08:00 MPV 10.3 fl (7.0-11.0) 02/20/17 08:00 Gran % Metal Spray Operator 02/20/17 08:00 Lymph % (Auto) Metal Spray Operator 02/20/17 08:00 [place] % (Auto) Metal Spray Operator 02/20/17 08:00 Eos % (Auto) Metal Spray Operator 02/20/17 08:00 Baso % (Auto) Metal Spray Operator 02/20/17 08:00 Gran # Metal Spray Operator 02/20/17 08:00 Lymph # Metal Spray Operator 02/20/17 08:00 [place] # Metal Spray Operator 02/20/17 08:00 Eos # Metal Spray Operator 02/20/17 08:00 Baso # Metal Spray Operator 02/20/17 08:00 Neutrophils % (Manual) 31 % (50.0-70.0) L 02/20/17 08:00 Band Neutrophils % 1 % (0-2) 02/20/17 08:00 Lymphocytes % (Manual) 50 % (22.0-35.0) H 02/20/17 08:00 Monocytes % (Manual) 18 % (1.0-6.0) H 02/20/17 08:00 Platelet Evaluation Normal (NORMAL) 02/20/17 08:00 Anisocytosis (manual) Slight 02/20/17 08:00 PT 11.0 Seconds (9.9-11.8) 02/18/17 13:50 INR 1.02 (0.93-1.08) 02/18/17 13:50 APTT 25.2 Seconds (23.7-30.8) 02/18/17 13:50 Sodium 137 mmol/L (132-148) 02/20/17 08:00 Potassium 4.0 mmol/L (3.6-5.0) 02/20/17 08:00 Chloride 98 mmol/L (95-110) 02/20/17 08:00 Carbon Dioxide 28 mmol/L (21-33) 02/20/17 08:00 Anion Gap 15 (10-20) 02/20/17 08:00 BUN 15 mg/dL (7-21) 02/20/17 08:00 Creatinine 0.9 mg/dL (0.5-1.4) 02/20/17 08:00 Est GFR ( Amer) > 60 02/20/17 08:00 Est GFR (Non-Af Amer) > 60 02/20/17 08:00 POC Glucose (mg/dL) 147 mg/dL (65-110) H 02/19/17 16:08 Random Glucose 106 mg/dL (70-110) 02/20/17 08:00 Calcium 9.6 mg/dL (8.4-10.5) 02/20/17 08:00 Total Bilirubin 0.4 mg/dL (0.2-1.3) 02/20/17 08:00 AST 50 U/L (15-59) 02/20/17 08:00 ALT 61 U/L (7-56) H 02/20/17 08:00 Alkaline Phosphatase 56 U/L (38-133) 02/20/17 08:00 Total Protein 7.7 g/dL (5.8-8.3) 02/20/17 08:00 Albumin 4.4 g/dL (3.0-4.8) 02/20/17 08:00 Globulin 3.4 gm/dL 02/20/17 08:00 Albumin/Globulin Ratio 1.3 (1.1-1.8) 02/20/17 08:00 Lipase 58 U/L (23-300) 02/18/17 13:50 Urine Opiates Screen Negative (NEGATIVE) 02/18/17 18:20 Urine Methadone Screen Negative (NEGATIVE) 02/18/17 18:20 Ur Barbiturates Screen Negative (NEGATIVE) 02/18/17 18:20 Ur Phencyclidine Scrn Negative (NEGATIVE) 02/18/17 18:20 Ur Amphetamines Screen Negative (NEGATIVE) 02/18/17 18:20 U Benzodiazepines Scrn Positive (NEGATIVE) H 02/18/17 18:20 U Oth Cocaine Metabols Positive (NEGATIVE) H 02/18/17 18:20 U Cannabinoids Screen Negative (NEGATIVE) 02/18/17 18:20 - Hospital Course Hospital Course: 41 yo M w/ PMHx of ETOH abuse, gerd, anxiety/depression, presents with three episodes of vomiting AM of admission. Drank his usual of one pint of vodka and 2 beers the evening before, and woke up AM of admission, vomiting clear emesis w /o blood x3. Also reports tremors, L sided abdominal pain and one episode of diarrhea overnight. Pt admitted in patient for alcohol withdrawal. On the floor, Pt received IV hydration, multivitamins, folic acid and thiamine while being monitored under ciwa protocol and ativan for ETOH withdrawal. Diet was advanced as tolerated. Pt discharged home in good condition with instructions to resume home medications, and because as per patient, pt does not need refills on home medications, so no new prescriptions, and pt given instructions to follow-up with PMD within a week. Discharge Exam - Head Exam Head Exam: ATRAUMATIC, NORMOCEPHALIC - Eye Exam Eye Exam: EOMI, Normal appearance - ENT Exam ENT Exam: Mucous Membranes Moist, Normal Exam - Respiratory Exam Respiratory Exam: NORMAL BREATHING PATTERN, UNREMARKABLE - Cardiovascular Exam Cardiovascular Exam: +S1, +S2. absent: Bradycardia - GI/Abdominal Exam GI & Abdominal Exam: Soft. absent: Tenderness - Exam External exam: absent: Ecchymosis, Erythema - Extremities Exam Extremities exam: normal capillary refill, pedal pulses present - Neurological Exam Neurological exam: Alert, Oriented x3 - Skin Skin Exam: Intact, Normal Color Discharge Plan - Follow Up Plan Condition: GOOD Disposition: HOME/ ROUTINE Instructions: Alcohol Withdrawal (DC), Anxiety (DC), Conjunctivitis (GEN) Additional Instructions: You are discharged home. Please follow up with your PMD within one week of discharge. Please restart your home medications. You indicated that you are not in need of refills for folate, thiamine and multivitamins, so no scripts were given. Please return to the emergency department for worsening of symtoms. Referrals: Griselda Heard MD [Primary Care Provider] - <Addie Melendez - Last Filed: 02/20/17 16:22> Provider - Provider Date of Admission: 02/18/17 14:55 Attending physician: Addie Melendez MD Primary care physician: Griselda Heard MD Hospital Course - Lab Results Lab Results: Most Recent Lab Values WBC 3.3 10^3/ul (4.5-11.0) L D 02/20/17 08:00 RBC 4.20 10^6/uL (3.5-6.1) 02/20/17 08:00 Hgb 12.0 gm/dL (14.0-18.0) L 02/20/17 08:00 Hct 36.3 % (42.0-52.0) L 02/20/17 08:00 MCV 86.4 fL (80.0-105.0) 02/20/17 08:00 MCH 28.6 pg (25.0-35.0) 02/20/17 08:00 MCHC 33.1 g/dl (31.0-37.0) 02/20/17 08:00 RDW 15.5 % (11.5-14.5) H 02/20/17 08:00 Plt Count 195 10^3/uL (120.0-450.0) 02/20/17 08:00 MPV 10.3 fl (7.0-11.0) 02/20/17 08:00 Gran % Metal Spray Operator 02/20/17 08:00 Lymph % (Auto) Metal Spray Operator 02/20/17 08:00 [place] % (Auto) Metal Spray Operator 02/20/17 08:00 Eos % (Auto) Metal Spray Operator 02/20/17 08:00 Baso % (Auto) Metal Spray Operator 02/20/17 08:00 Gran # Metal Spray Operator 02/20/17 08:00 Lymph # Metal Spray Operator 02/20/17 08:00 [place] # Metal Spray Operator 02/20/17 08:00 Eos # Metal Spray Operator 02/20/17 08:00 Baso # Metal Spray Operator 02/20/17 08:00 Neutrophils % (Manual) 31 % (50.0-70.0) L 02/20/17 08:00 Band Neutrophils % 1 % (0-2) 02/20/17 08:00 Lymphocytes % (Manual) 50 % (22.0-35.0) H 02/20/17 08:00 Monocytes % (Manual) 18 % (1.0-6.0) H 02/20/17 08:00 Platelet Evaluation Normal (NORMAL) 02/20/17 08:00 Anisocytosis (manual) Slight 02/20/17 08:00 PT 11.0 Seconds (9.9-11.8) 02/18/17 13:50 INR 1.02 (0.93-1.08) 02/18/17 13:50 APTT 25.2 Seconds (23.7-30.8) 02/18/17 13:50 Sodium 137 mmol/L (132-148) 02/20/17 08:00 Potassium 4.0 mmol/L (3.6-5.0) 02/20/17 08:00 Chloride 98 mmol/L (95-110) 02/20/17 08:00 Carbon Dioxide 28 mmol/L (21-33) 02/20/17 08:00 Anion Gap 15 (10-20) 02/20/17 08:00 BUN 15 mg/dL (7-21) 02/20/17 08:00 Creatinine 0.9 mg/dL (0.5-1.4) 02/20/17 08:00 Est GFR ( Amer) > 60 02/20/17 08:00 Est GFR (Non-Af Amer) > 60 02/20/17 08:00 POC Glucose (mg/dL) 147 mg/dL (65-110) H 02/19/17 16:08 Random Glucose 106 mg/dL (70-110) 02/20/17 08:00 Calcium 9.6 mg/dL (8.4-10.5) 02/20/17 08:00 Total Bilirubin 0.4 mg/dL (0.2-1.3) 02/20/17 08:00 AST 50 U/L (15-59) 02/20/17 08:00 ALT 61 U/L (7-56) H 02/20/17 08:00 Alkaline Phosphatase 56 U/L (38-133) 02/20/17 08:00 Total Protein 7.7 g/dL (5.8-8.3) 02/20/17 08:00 Albumin 4.4 g/dL (3.0-4.8) 02/20/17 08:00 Globulin 3.4 gm/dL 02/20/17 08:00 Albumin/Globulin Ratio 1.3 (1.1-1.8) 02/20/17 08:00 Lipase 58 U/L (23-300) 02/18/17 13:50 Urine Opiates Screen Negative (NEGATIVE) 02/18/17 18:20 Urine Methadone Screen Negative (NEGATIVE) 02/18/17 18:20 Ur Barbiturates Screen Negative (NEGATIVE) 02/18/17 18:20 Ur Phencyclidine Scrn Negative (NEGATIVE) 02/18/17 18:20 Ur Amphetamines Screen Negative (NEGATIVE) 02/18/17 18:20 U Benzodiazepines Scrn Positive (NEGATIVE) H 02/18/17 18:20 U Oth Cocaine Metabols Positive (NEGATIVE) H 02/18/17 18:20 U Cannabinoids Screen Negative (NEGATIVE) 02/18/17 18:20 Attending/Attestation - Attestation I have personally seen and examined this patient.: Yes I have fully participated in the care of the patient.: Yes I have reviewed all pertinent clinical information, including history, physical exam and plan: Yes Notes (Text): 02/20/17 16:19 41 year old male with past medical history of chronic ETOH abuse, substance abuse, anxiety, and depression who presented with complaint of nausea, vomiting , left sided abdominal pain and alcohol withdrawal. His symptoms improved with banana bag, multivitamin, folic acid, thiamine tapering ativan. He was counselled on alcohol abstinence. CT scan of abd/pelvis was negative. His abdominal pain improved and he is tolerating diet. Patient is discharged home to follow up with his pmd. He was counselled on alcohol abstinence. However overall prognosis is guarded given history of chronic ETOH abuse and noncompliance. Addie Melendez MD Hospitalist.
== END 2017-02-20 13:09 | disposition home or self-care (01) | DRG 751 ==
LOC: ED 12:34 → ERH 14:55 → 2RNO 18:58 → 3RNO 02-19 17:56
PROVIDERS: ADMIT Hospitalist; ATTEND Internal Medicine
DX: F10.239 Alcohol dependence with withdrawal, unspecified (principal); F14.10 Cocaine abuse, uncomplicated; F32.9 Major depressive disorder, single episode, unspecified; F41.9 Anxiety disorder, unspecified; K21.9 Gastro-esophageal reflux disease without esophagitis; Z91.19 Patient's noncompliance with other medical treatment and regimen

== ENCOUNTER 2017-02-22 07:43 | Inpatient (IN) | payer MEDICAID ==
[2017-02-22 07:47] VITALS: BMI 20.3
[2017-02-22] MEDS ORDERED: Sodium Chloride 0.9% 1,000 ML IV STA (07:59)
--- NOTE | 2017-02-22 08:02 | ED PDOC ---
Arrival/HPI - General Chief Complaint: GI Problem Time Seen by Provider: 02/22/17 07:45 Historian: Patient - History of Present Illness Narrative History of Present Illness (Text): 02/22/17 07:59 41 year old male, well known to the emergency department, presents to the emergency department with abdominal pain and vomiting today. Patient admits to drinking alcohol, last drink 23:00 last night. No fever or other complaints. Time/Duration: 24 hours Symptom Onset: Gradual Symptom Course: Unchanged Modifying Factors (Text): None Associated Symptoms (Text): None Past Medical History - Provider Review Nursing Documentation Reviewed: Yes - Infectious Disease Hx of Infectious Diseases: None - Tetanus Immunization Tetanus Immunization: Unknown - Reproductive Currently : No - Past Medical History Past Medical History: No Previous - Cardiac Hx Cardiac Disorders: Yes Hx Hypertension: Yes - Pulmonary Hx Chronic Obstructive Pulmonary Disease (COPD): No - Neurological Hx Dizziness: Yes Other/Comment: neuropathy - HEENT Hx HEENT Disorder: Yes (wears glasses) Hx Blind: No Hx Cataracts: No Hx Deafness: No Hx Difficulty Chewing: No Hx Epistaxis: No Hx Glaucoma: No Hx Macular Degeneration: No - Renal Hx Renal Failure: No - Endocrine/Metabolic Hx Diabetes Mellitus Type 1: No Hx Diabetes Mellitus Type 2: No Hx Hypothyroidism: No - Hematological/Oncological Hx Blood Disorders: No - Integumentary Hx Dermatological Disorder: No - Musculoskeletal/Rheumatological Hx Arthritis: No - Gastrointestinal Hx Gastrointestinal Disorders: Yes Hx Gastroesophageal Reflux: Yes - Genitourinary/Gynecological Hx Genitourinary Disorders: No - Psychiatric Hx Psychophysiologic Disorder: Yes (ETOH, substance abuse,SMOKES CIGARETTES) Hx Anxiety: Yes Hx Depression: Yes Hx Panic Disorder: Yes Hx Substance Use: Yes (cocaine 1 month ago) Other/Comment: used cocaine 1 month ago, 1 pt vodka and beer daily - Past Surgical History Past Surgical History: Non-Contributing - Surgical History Hx Musculoskeletal Surgery: Yes (RIGHT FOOT SXrod and screws) Hx Orthopedic Surgery: Yes - Anesthesia Hx Anesthesia: Yes Hx Anesthesia Reactions: No Hx Malignant Hyperthermia: No - Suicidal Assessment Feels Threatened In Home Enviroment: No Family/Social History - Physician Review Nursing Documentation Reviewed: Yes Family/Social History: Unknown Family HX Smoking Status: Light Smoker < 10 Cigarettes Daily Hx Alcohol Use: Yes (1` pt vodka and beer daily) Frequency of alcohol use: Daily Hx Substance Use: Yes (cocaine 1 month ago) Substance used: marijuana & coaine Hx Substance Use Treatment: No Allergies/Home Meds Allergies/Adverse Reactions: Allergies No Known Allergies Allergy (Verified 02/22/17 07:48) Review of Systems - Physician Review All systems were reviewed & negative as marked: Yes - Review of Systems Constitutional: absent: Fevers Respiratory: absent: SOB Gastrointestinal: Abdominal Pain, Vomiting Neurological: absent: Dizziness Physical Exam Vital Signs Reviewed: Yes Vital Signs Temp Pulse Resp BP Pulse Ox 02/22/17 12:22 90 18 141/85 100 02/22/17 10:10 87 18 148/92 H 100 02/22/17 07:44 98 F 93 H 18 152/94 H 97 Temperature: Afebrile Blood Pressure: Normal Pulse: Regular Respiratory Rate: Normal Appearance: Positive for: Well-Appearing, Non-Toxic, Comfortable Pain Distress: None Mental Status: Positive for: Alert and Oriented X 3 - Systems Exam Head: Present: Atraumatic, Normocephalic Pupils: Present: PERRL Extroacular Muscles: Present: EOMI Conjunctiva: Present: Normal Mouth: Present: Moist Mucous Membranes Neck: Present: Normal Range of Motion Respiratory/Chest: Present: Clear to Auscultation, Good Air Exchange. No: Respiratory Distress, Accessory Muscle Use Cardiovascular: Present: Regular Rate and Rhythm, Normal S1, S2. No: Murmurs Abdomen: Present: Tenderness (Mild epigastric tenderness), Normal Bowel Sounds. No: Distention, Peritoneal Signs Back: Present: Normal Inspection Upper Extremity: Present: Normal Inspection. No: Cyanosis, Edema Lower Extremity: Present: Normal Inspection. No: Edema Neurological: Present: GCS=15, CN II-XII Intact, Speech Normal Skin: Present: Warm, Dry, Normal Color. No: Rashes Psychiatric: Present: Alert, Oriented x 3, Normal Insight, Normal Concentration Medical Decision Making ED Course and Treatment: Impression: 41 year old male, well known to the emergency department, presents to the emergency department with abdominal pain and vomiting today. Differential Diagnosis include but are not limited to: Plan: -- EKG, CXR -- Zofran, Protonix -- Labs -- Reassess and disposition Prior Visits: Notes and results from previous visits were reviewed. Patient last seen in ED on 02/18/17 for nausea, vomiting and admitted for alcohol withdrawal. Progress Notes: 02/22/17 08:50 pt reassesed. persistent vomiting, pain. ct added PROCEDURE: CT Abdomen and Pelvis with contrast Frame Sample And Pattern Supervisor : Dorinda Valdez MD LIVER: Hypoattenuation of the liver compatible with hepatic steatosis more focal fatty infiltration noted near the falciform ligament. KIDNEYS AND URETERS: The kidneys enhance symmetrically. No hydronephrosis or obstructing calculus identified. BOWEL: The stomach is nondistended. Lack of oral contrast limits evaluation for bowel pathology. Bowel loops appear within normal limits of caliber without evidence of obstruction. Diffuse colonic wall thickening consistent with colitis (i.e. infectious, inflammatory, ischemic). APPENDIX: The appendix appears within normal limits of caliber. No secondary signs of acute appendicitis. BLADDER: Somewhat thick-walled posterior urinary bladder wall; incompletely assessed due to underdistention. REPRODUCTIVE: Enlarged heterogeneous prostate gland. IMPRESSION: Diffuse colonic wall thickening consistent with colitis (i.e. infectious, inflammatory, ischemic). Enlarged heterogeneous prostate gland. Recommend correlation with PSA. Somewhat thick-walled posterior urinary bladder wall; incompletely assessed due to underdistention. Additional incidental findings as above. 02/22/17 13:03 Patient is ipersistent retching, vomiting, and tremulous. Patient is a poor outpatient candidate since he is homeless. Dr. Silverio accepts the patient. h/o of etoh withdrawal 02/22/17 13:33 - Lab Interpretations Lab Results: 02/22/17 08:00 02/22/17 08:00 Lab Results 02/22/17 08:00: Sodium 143, Potassium 3.8, Chloride 100, Carbon Dioxide 21, Anion Gap 26 H, BUN 13, Creatinine 0.9, Est GFR ( Amer) > 60, Est GFR ( Non-Af Amer) > 60, Random Glucose 85, Calcium 9.3, Total Bilirubin 0.5, AST 91 H , ALT 73 H, Alkaline Phosphatase 56, Total Protein 8.9 H, Albumin 5.1 H, Globulin 3.9, Albumin/Globulin Ratio 1.3, Lipase 90 02/22/17 08:00: PT 10.6, INR 0.98, APTT 24.4 02/22/17 08:00: WBC 4.6 D, RBC 4.25, Hgb 12.2 L, Hct 36.6 L, MCV 86.1, MCH 28.7 , MCHC 33.3, RDW 15.9 H, Plt Count 229, MPV 9.9, Gran % 38.6 L, Lymph % (Auto) 46.4 H, [place] % (Auto) 13.4 H, Eos % (Auto) 0.7 L, Baso % (Auto) 0.9, Gran # 1.76 , Lymph # 2.1, [place] # 0.6, Eos # 0.0, Baso # 0.04 02/22/17 08:00: Alcohol, Quantitative 152 H - RAD Interpretation Radiology Orders: 02/22/17 10:22 ABD & PELVIS IV CONTRAST ONLY [CT] Stat CHEST ONE VIEW [RAD] Stat - EKG Interpretation EKG Interpretation (Text): EKG shows NSR at 87 BPM with LVH, no interval changes. Interpreted by ED Physician: Yes Type: 12 lead EKG - Medication Orders Current Medication Orders: Discontinued Medications Chlordiazepoxide (Librium) 50 mg PO STAT STA PRN Reason: Protocol Stop: 02/22/17 12:38 Last Admin: 02/22/17 12:43 Dose: 50 mg Sodium Chloride (Sodium Chloride 0.9%) 1,000 mls @ 999 mls/hr IV .Q1H1M STA Stop: 02/22/17 08:59 Last Admin: 02/22/17 08:24 Dose: 999 mls/hr Piperacillin Sod/Tazobactam Sod (Zosyn 3.375 In Ns 100ml) 100 mls @ 200 mls/hr IVPB STAT STA PRN Reason: Protocol Stop: 02/22/17 13:18 Last Admin: 02/22/17 13:01 Dose: 200 mls/hr Iohexol (Omnipaque 350 100 Ml) Confirm Administered Dose 350 mg .ROUTE .STK-MED ONE Stop: 02/22/17 10:48 Ketorolac Tromethamine (Toradol) 30 mg IVP STAT STA Stop: 02/22/17 12:50 Last Admin: 02/22/17 13:00 Dose: 30 mg Ondansetron HCl (Zofran Inj) 4 mg IVP STAT STA Stop: 02/22/17 08:00 Last Admin: 02/22/17 08:07 Dose: 4 mg Ondansetron HCl (Zofran Inj) 4 mg IVP STAT STA Stop: 02/22/17 10:23 Last Admin: 02/22/17 10:30 Dose: 4 mg Pantoprazole Sodium (Protonix Inj) 40 mg IVP STAT STA Stop: 02/22/17 08:00 Last Admin: 02/22/17 08:07 Dose: 40 mg - Viralibtylor Statement The provider has reviewed the documentation as recorded by the Ruth Rich Provider Scribe Attestation: All medical record entries made by the Ruth were at my direction and personally dictated by me. I have reviewed the chart and agree that the record accurately reflects my personal performance of the history, physical exam, medical decision making, and the department course for this patient. I have also personally directed, reviewed, and agree with the discharge instructions and disposition. Disposition/Present on Arrival - Present on Arrival Any Indicators Present on Arrival: No History of DVT/PE: No History of Uncontrolled Diabetes: No Urinary Catheter: No History of Decub. Ulcer: No History Surgical Site Infection Following: None - Disposition Have Diagnosis and Disposition been Completed?: Yes Diagnosis: Abdominal pain Disposition: HOME/ ROUTINE Disposition Time: 08:47 Patient Problems: Current Active Problems Problem Status Onset Abdominal pain Acute Condition: STABLE
[2017-02-22 08:09] LABS: ADD MANUAL DIFF? NO
[2017-02-22 08:13] LABS: BASO # 0.04 K/mm3 (0.0-2.0); BASO % 0.9 % (0.0-3.0); EOS % 0.7 % (1.5-5.0); GRAN # 1.76 (1.4-6.5); GRAN % 38.6 % (50.0-68.0); HEMATOCRIT 36.6 % (42.0-52.0); LYMPH # 2.1 (1.2-3.4); LYMPH % 46.4 % (22.0-35.0); MEAN CELL VOLUME 86.1 fL (80.0-105.0); MEAN CORPUSCULAR HEMOGLOBIN 28.7 pg (25.0-35.0); MEAN CORPUSCULAR HGB CONC 33.3 g/dl (31.0-37.0); MEAN PLATELET VOLUME 9.9 fl (7.0-11.0); MONO # 0.6 (0.1-0.6); MONO % 13.4 % (1.0-6.0); PLATELET COUNT 229 10^3/uL (120.0-450.0); RED CELL DISTRIBUTION WIDTH 15.9 % (11.5-14.5); WHITE BLOOD COUNT 4.6 10^3/ul (4.5-11.0)
[2017-02-22 08:28] LABS: INR 0.98 (0.93-1.08); PARTIAL THROMBOPLASTIN TIME 24.4 Seconds (23.7-30.8)
[2017-02-22 08:35] LABS: ALB/GLOB RATIO 1.3 (1.1-1.8); ALKALINE PHOSPHATASE 56 U/L (38-133); ALT/SGPT 73 U/L (7-56); AST/SGOT 91 U/L (15-59); BILIRUBIN,TOTAL 0.5 mg/dL (0.2-1.3); BLOOD UREA NITROGEN 13 mg/dL (7-21); CALCIUM 9.3 mg/dL (8.4-10.5); CARBON DIOXIDE 21 mmol/L (21-33); CHLORIDE 100 mmol/L (98-107); GFR AFRICAN-AMERICAN > 60; GLUCOSE,RANDOM 85 mg/dL (70-110); LIPASE 90 U/L (23-300); POTASSIUM 3.8 mmol/L (3.6-5.0); SODIUM 143 mmol/L (132-148); TOTAL PROTEIN 8.9 g/dL (5.8-8.3)
[2017-02-22] MEDS ORDERED: Iohexol 350 MG/100 ML VIAL ONE (10:47)
--- NOTE | 2017-02-22 12:46 | CT ---
PROCEDURE: CT Abdomen and Pelvis with contrast HISTORY: abd pain, vomiting COMPARISON: CT abdomen and pelvis without oral or IV contrast performed 02/18/17 TECHNIQUE: Contrast dose: 100 mL Omnipaque 350 Radiation dose: Total exam DLP = 246.4 mGy-cm. This CT exam was performed using one or more of the following dose reduction techniques: Automated exposure control, adjustment of the mA and/or kV according to patient size, and/or use of iterative reconstruction technique. FINDINGS: LOWER THORAX: No visible consolidation, pleural effusion, or pneumothorax. LIVER: Hypoattenuation of the liver compatible with hepatic steatosis more focal fatty infiltration noted near the falciform ligament. GALLBLADDER AND BILE DUCTS: Unremarkable. PANCREAS: Unremarkable. SPLEEN: Unremarkable. ADRENALS: Unremarkable. KIDNEYS AND URETERS: The kidneys enhance symmetrically. No hydronephrosis or obstructing calculus identified. VASCULATURE: No aortic aneurysm. BOWEL: The stomach is nondistended. Lack of oral contrast limits evaluation for bowel pathology. Bowel loops appear within normal limits of caliber without evidence of obstruction. Diffuse colonic wall thickening consistent with colitis (i.e. infectious, inflammatory, ischemic). APPENDIX: The appendix appears within normal limits of caliber. No secondary signs of acute appendicitis. PERITONEUM: No significant free fluid. No definite free air. LYMPH NODES: No bulky adenopathy identified. BLADDER: Somewhat thick-walled posterior urinary bladder wall; incompletely assessed due to underdistention. REPRODUCTIVE: Enlarged heterogeneous prostate gland. BONES: No acute osseous abnormality is detected. OTHER FINDINGS: None. IMPRESSION: Diffuse colonic wall thickening consistent with colitis (i.e. infectious, inflammatory, ischemic). Enlarged heterogeneous prostate gland. Recommend correlation with PSA. Somewhat thick-walled posterior urinary bladder wall; incompletely assessed due to underdistention. Additional incidental findings as above.
--- NOTE | 2017-02-22 12:47 | RAD ---
PROCEDURE: CHEST RADIOGRAPH, 1 VIEW HISTORY: abd pain COMPARISON: 02/18/2017 FINDINGS: LUNGS: Clear. PLEURA: No pneumothorax or pleural fluid seen. CARDIOVASCULAR: Normal. OSSEOUS STRUCTURES: No significant abnormalities. VISUALIZED UPPER ABDOMEN: Normal. OTHER FINDINGS: None. IMPRESSION: No active disease.
[2017-02-22] MEDS ORDERED: Piperacillin/Tazobact 3.375 gm 100 ML IVPB STA (12:49)
[2017-02-22] MEDS ORDERED: Multivitamin (MVI) 10 ML, Thiamine 100 MG, Folic Acid 1 MG in Sodium Chloride 0.9% 1,00... IV ONE (13:43)
[2017-02-22] MEDS ORDERED: Morphine 2 mg/ml ISec IVP PRN (13:59)
[2017-02-22] MEDS: metroNIDAZOLE IV 500 mg/100 ml 500 MG/100 ML BAG IVPB SCH ×2 (14:06→21:41)
[2017-02-22] MEDS: Enoxaparin 30 mg Syringe SC SCH (14:06)
[2017-02-22 14:07] LABS: PH,URINE 6.5 (4.7-8.0); URINE BILIRUBIN NEGATIVE (NEGATIVE); URINE BLOOD NEGATIVE (NEGATIVE); URINE GLUCOSE (UA) NEGATIVE (NEGATIVE); URINE KETONE 15 mg/dL (NEGATIVE); URINE LEUKOCYTE ESTERASE NEGATIVE Leu/uL (NEGATIVE); URINE PROTEIN NEGATIVE mg/dL (<30 mg/dL); URINE UROBILINOGEN 0.2 E.U./dL (<1 E.U./dL)
[2017-02-22 14:13] LABS: URINE APPEARANCE CLEAR (CLEAR); URINE COLOR YELLOW (YELLOW)
--- NOTE | 2017-02-22 14:28 | CP.PCM.HP ---
<Marina Burch - Last Filed: 02/22/17 14:30> History of Present Illness - History of Present Illness History of Present Illness: Note for Hospitalist service HPI: Patient is a 41 yo male with a history of ETOH abuse, hypertension, smoker who presents with abdominal pain, N/V/D that started yesterday. Pt was recently discharged for EtOH withdrwal. He drank 3 pints of vodka. Patient stated that headache, tremors and nausea started upon waking up this morning after last night's drinking and was previously admitted to [facility] for similar symptoms multiple times this year. Patient reports use of cocaine use. Pain is located on LLQ. Non radiating. Burning pain. Also reports SOB and LE tingling. Denies dysuria, frequency, urgency, focal weakness, numbness. PMHx: alcohol abuse, anxiety/depression, hypertension, gerd, cocaine PSHx: R foot surgery Allergies: NKDA Family Hx: non-contributory Social Hx: smokes about 1/4 pack daily; drinks one vodka pink daily with additional beers daily; reports intermittent cocaine usage. Lives with sister. Present on Admission - Present on Admission Any Indicators Present on Admission: No Review of Systems - Review of Systems Review of Systems: See HPI Past Patient History - Infectious Disease Hx of Infectious Diseases: None - Tetanus Immunizations Tetanus Immunization: Unknown - Past Medical History & Family History Past Medical History?: Yes - Past Social History Smoking Status: Light Smoker < 10 Cigarettes Daily - CARDIAC Hx Cardiac Disorders: Yes Hx Hypertension: Yes - PULMONARY Hx Chronic Obstructive Pulmonary Disease (COPD): No - NEUROLOGICAL Hx Dizziness: Yes Other/Comment: neuropathy - HEENT Hx HEENT Problems: Yes (wears glasses) Hx Blind: No Hx Cataracts: No Hx Deafness: No Hx Difficulty Chewing: No Hx Epistaxis: No Hx Glaucoma: No Hx Macular Degeneration: No - RENAL Hx Renal Failure: No - ENDOCRINE/METABOLIC Hx Diabetes Mellitus Type 1: No Hx Diabetes Mellitus Type 2: No Hx Hypothyroidism: No - HEMATOLOGICAL/ONCOLOGICAL Hx Blood Disorders: No - INTEGUMENTARY Hx Dermatological Problems: No - MUSCULOSKELETAL/RHEUMATOLOGICAL Hx Arthritis: No - GASTROINTESTINAL Hx Gastrointestinal Disorders: Yes Hx Gastroesophageal Reflux: Yes - GENITOURINARY/GYNECOLOGICAL Hx Genitourinary Disorders: No - PSYCHIATRIC Hx Psychophysiologic Disorder: Yes (ETOH, substance abuse,SMOKES CIGARETTES) Hx Anxiety: Yes Hx Depression: Yes Hx Panic Symptoms: Yes Hx Substance Use: Yes (cocaine 1 month ago) Other/Comment: used cocaine 1 month ago, 1 pt vodka and beer daily - SURGICAL HISTORY Hx Musculoskeletal Surgery: Yes (RIGHT FOOT SXrod and screws) Hx Orthopedic Surgery: Yes - ANESTHESIA Hx Anesthesia: Yes Hx Anesthesia Reactions: No Hx Malignant Hyperthermia: No Meds Home Medications: Home Medication List Medication Instructions Recorded Confirmed Type Famotidine [Pepcid] 20 mg PO DAILY #20 tab 02/22/17 Rx Allergies/Adverse Reactions: Allergies Allergy/AdvReac Type Severity Reaction Status Date / Time No Known Allergies Allergy Verified 02/22/17 07:48 Physical Exam - Constitutional Appears: Non-toxic - Head Exam Head Exam: ATRAUMATIC, NORMAL INSPECTION, NORMOCEPHALIC - Eye Exam Eye Exam: EOMI, Normal appearance, PERRL Pupil Exam: NORMAL ACCOMODATION, PERRL - ENT Exam ENT Exam: Mucous Membranes Moist, Normal Exam - Neck Exam Neck exam: Positive for: Normal Inspection - Respiratory Exam Respiratory Exam: Clear to Auscultation Bilateral, NORMAL BREATHING PATTERN. absent: Accessory Muscle Use, Respiratory Distress - Cardiovascular Exam Cardiovascular Exam: REGULAR RHYTHM, +S1, +S2 - GI/Abdominal Exam GI & Abdominal Exam: Soft, Tenderness. absent: Distended, Firm, Guarding, Hernia, Rebound, Rigid Additional comments: LLQ TTP - Extremities Exam Extremities exam: Positive for: normal inspection - Back Exam Back exam: NORMAL INSPECTION - Neurological Exam Neurological exam: Alert, CN II-XII Intact, Oriented x3 - Skin Skin Exam: Dry, Intact, Normal Color, Warm Results - Vital Signs Recent Vital Signs: Last Vital Signs Temp 98 F 02/22/17 07:44 Pulse 84 02/22/17 13:55 Resp 18 02/22/17 13:55 BP 139/82 02/22/17 13:55 Pulse Ox 99 02/22/17 13:55 - Labs Result Diagrams: 02/22/17 08:00 02/22/17 08:00 Assessment & Plan - Assessment and Plan (Free Text) Assessment: This is a 41Y M with PMHx of ETOH abuse/withdrawal, polysubstance abuse, Anxiety /depression, admitted for colitis and alcohol withdrawal. Colitis on CT No leukocytosis Afebrile -Levaquin 500 IV -Flagyl 500 IV -GI consult Alcohol withdrawal - Banana bag @100 - Protonix IV - Zofran PRN - Ativan prn -Librium PO - Neuro check - CIWA protocol - Aspiration and seizure precaution - Alcohol level 152 - Counseled on alcohol - NPO diet Hx of Depression/Anxiety - Continue Paxil Cocaine Abuse - Counseled on drug cessation GI ppx: Protonix DVT ppx: Lovenox Case seen, reviewed and discussed with attending <Nusrat FRANKS,Luisito - Last Filed: 02/22/17 17:39> Results - Vital Signs Recent Vital Signs: Last Vital Signs Temp 98 F 02/22/17 07:44 Pulse 76 02/22/17 17:27 Resp 16 02/22/17 17:27 BP 137/86 02/22/17 17:27 Pulse Ox 100 02/22/17 17:27 - Labs Result Diagrams: 02/22/17 08:00 02/22/17 08:00 Labs: Laboratory Results - last 24 hr 02/22/17 13:40 Urine Color Yellow Urine Appearance Clear Urine pH 6.5 Ur Specific [place] 1.010 Urine Protein Negative Urine Glucose (UA) Negative Urine Ketones 15 H Urine Blood Negative Urine Nitrate Negative Urine Bilirubin Negative Urine Urobilinogen 0.2 Ur Leukocyte Esterase Negative Attending/Attestation - Attestation I have personally seen and examined this patient.: Yes I have fully participated in the care of the patient.: Yes I have reviewed all pertinent clinical information: Yes Notes (Text): Patient was seen and examined with emergency medical technician .Agreed with resident assessment and plan. 40 M with PMH of alcohol abuse, Depression , multiple admission in hospital for alcohol related problem with alcohol intoxication and colitis, We will watch for alcohol withdrawal,We will start patient on IV fluid, NPO , Levaquin/ Flagyl .We will also check stool cultures.We will also get GI consult. Management plan was discussed in detail with patient Education was provided.
[2017-02-22] MEDS: levoFLOXacin 500 mg in D5W 500 MG/100 ML BAG IVPB SCH (14:54)
--- NOTE | 2017-02-22 15:03 | CARD ---
APPROVED REPORT EKG Measurement Heart [id number] [id number] <Conclusion> Normal sinus rhythm Moderate voltage criteria for LVH OR may be normal variant.
[2017-02-22] MEDS ORDERED: Pneumococcal 23-Valent Vaccine IM ONE (20:25)
[2017-02-23] MEDS: metroNIDAZOLE IV 500 mg/100 ml 500 MG/100 ML BAG IVPB SCH ×3 (05:21→21:28)
[2017-02-23 07:58] LABS: ADD MANUAL DIFF? NO
[2017-02-23 08:06] LABS: BASO # 0.01 K/mm3 (0.0-2.0); BASO % 0.3 % (0.0-3.0); EOS % 0.9 % (1.5-5.0); GRAN # 1.53 (1.4-6.5); GRAN % 44.9 % (50.0-68.0); LYMPH # 1.3 (1.2-3.4); LYMPH % 38.7 % (22.0-35.0); MEAN CELL VOLUME 87.1 fL (80.0-105.0); MEAN CORPUSCULAR HEMOGLOBIN 28.2 pg (25.0-35.0); MEAN CORPUSCULAR HGB CONC 32.4 g/dl (31.0-37.0); MEAN PLATELET VOLUME 10.5 fl (7.0-11.0); MONO # 0.5 (0.1-0.6); MONO % 15.2 % (1.0-6.0); PLATELET COUNT 199 10^3/uL (120.0-450.0); RED CELL DISTRIBUTION WIDTH 15.9 % (11.5-14.5); WHITE BLOOD COUNT 3.4 10^3/ul (4.5-11.0)
[2017-02-23 08:17] LABS: ALB/GLOB RATIO 1.4 (1.1-1.8); ALKALINE PHOSPHATASE 48 U/L (38-133); ALT/SGPT 59 U/L (7-56); AST/SGOT 59 U/L (15-59); BILIRUBIN,TOTAL 1.1 mg/dL (0.2-1.3); BLOOD UREA NITROGEN 12 mg/dL (7-21); CALCIUM 8.6 mg/dL (8.4-10.5); CARBON DIOXIDE 22 mmol/L (21-33); CHLORIDE 101 mmol/L (98-107); GFR AFRICAN-AMERICAN > 60; GLUCOSE,RANDOM 62 mg/dL (70-110); POTASSIUM 3.5 mmol/L (3.6-5.0); SODIUM 137 mmol/L (132-148)
[2017-02-23] MEDS ORDERED: Potassium Chloride 40 mEq/30 ml LIQ UD PO ONE (09:16)
[2017-02-23] MEDS: levoFLOXacin 500 mg in D5W 500 MG/100 ML BAG IVPB SCH (09:43)
[2017-02-23] MEDS: Enoxaparin 30 mg Syringe SC SCH (09:44)
--- NOTE | 2017-02-23 12:03 | CP.PCM.PN ---
<Aracelis Padilla - Last Filed: 02/23/17 11:53> Subjective - Date & Time of Evaluation Date of Evaluation: 02/23/17 Time of Evaluation: 11:53 - Subjective Subjective: HOSPITALIST PROGRESS NOTE Pt is seen and examined at bedside. No acute events overnight. Diarrhea has improved. Denies having any Cp, SOB abd pain N/V. Denies having any anxiety or hallucinations. Objective - Vital Signs/Intake and Output Vital Signs (last 24 hours): Temp Pulse Resp BP Pulse Ox 98.4 F 68 15 125/85 98 02/23/17 06:00 02/23/17 06:00 02/23/17 06:00 02/23/17 06:00 02/23/17 06:00 - Medications Medications: Current Medications Chlordiazepoxide (Librium) 10 mg PO Q8 ALEXANDRA PRN Reason: Protocol Enoxaparin Sodium (Lovenox) 30 mg SC DAILY ALEXANDRA PRN Reason: Protocol Last Admin: 02/23/17 09:44 Dose: 30 mg Metronidazole (Flagyl) 500 mg in 100 mls @ 100 mls/hr IVPB Q8 ALEXANDRA PRN Reason: Protocol Last Admin: 02/23/17 05:21 Dose: 100 mls/hr Levofloxacin/Dextrose (Levaquin 500mg) 500 mg in 100 mls @ 100 mls/hr IVPB DAILY [facility] Last Admin: 02/23/17 09:43 Dose: 100 mls/hr Lorazepam (Ativan) 1 mg IVP Q6H PRN; Protocol PRN Reason: Symptoms of alcohol withdrawl Morphine Sulfate (Morphine) 2 mg IVP Q6 PRN PRN Reason: Pain, moderate (4-7) Ondansetron HCl (Zofran Inj) 4 mg IVP Q4 PRN PRN Reason: Nausea/Vomiting Pantoprazole Sodium (Protonix Inj) 40 mg IVP DAILY [facility] Last Admin: 02/23/17 09:43 Dose: 40 mg Paroxetine HCl (Paxil) 10 mg PO DAILY [facility] Last Admin: 02/23/17 09:42 Dose: 10 mg - Labs Labs: PT 10.6 Seconds (9.9-11.8) 02/22/17 08:00 INR 0.98 (0.93-1.08) 02/22/17 08:00 APTT 24.4 Seconds (23.7-30.8) 02/22/17 08:00 - Constitutional Appears: Non-toxic, No Acute Distress - Head Exam Head Exam: ATRAUMATIC - Eye Exam Eye Exam: EOMI Pupil Exam: PERRL - ENT Exam ENT Exam: Mucous Membranes Moist - Respiratory Exam Respiratory Exam: Clear to Ausculation Bilateral. absent: Rales, Rhonchi, Wheezes - Cardiovascular Exam Cardiovascular Exam: REGULAR RHYTHM, +S1, +S2. absent: Gallop, Rubs, Murmur - GI/Abdominal Exam GI & Abdominal Exam: Soft, Normal Bowel Sounds. absent: Distended, Firm, Guarding, Rigid, Tenderness - Extremities Exam Extremities Exam: absent: Pedal Edema, Tenderness - Neurological Exam Neurological Exam: Alert, Awake, Oriented x3 - Psychiatric Exam Psychiatric exam: Normal Affect, Normal Mood - Skin Skin Exam: Dry, Intact, Normal Color, Warm Assessment and Plan - Assessment and Plan (Free Text) Assessment: This is a 41Y M with PMHx of ETOH abuse/withdrawal, polysubstance abuse, Anxiety /depression, admitted for colitis and alcohol withdrawal. Colitis on CT No leukocytosis Low grade fever overnight at 99.9 -Levaquin 500 IV -Flagyl 500 IV -GI consult - Tylenol prn for fevers - Will start CLD for lunch and advance as tolerated Alcohol withdrawal - Banana bag @100 - Protonix IV - Zofran PRN - Ativan 1 mg q6 prn - Librium 10 mg po PO q8 [facility] - Neuro check - [facility] protocol - Aspiration and seizure precaution - Alcohol level 152 - Counseled on alcohol Hx of Depression/Anxiety - Continue Paxil Cocaine Abuse - Counseled on drug cessation GI ppx: Protonix DVT ppx: Lovenox Case seen, reviewed and discussed with attending <Addie Melendez - Last Filed: 02/23/17 12:34> Objective - Vital Signs/Intake and Output Vital Signs (last 24 hours): Temp Pulse Resp BP Pulse Ox 98.4 F 68 15 125/85 98 02/23/17 06:00 02/23/17 06:00 02/23/17 06:00 02/23/17 06:00 02/23/17 06:00 - Medications Medications: Current Medications Acetaminophen (Tylenol 325mg Tab) 650 mg PO Q6H PRN PRN Reason: Fever >100.4 F Chlordiazepoxide (Librium) 10 mg PO Q8 [facility] PRN Reason: Protocol Enoxaparin Sodium (Lovenox) 30 mg SC DAILY ALEXANDRA PRN Reason: Protocol Last Admin: 02/23/17 09:44 Dose: 30 mg Folic Acid (Folic Acid) 1 mg PO DAILY [facility] Metronidazole (Flagyl) 500 mg in 100 mls @ 100 mls/hr IVPB Q8 ALEXANDRA PRN Reason: Protocol Last Admin: 02/23/17 05:21 Dose: 100 mls/hr Levofloxacin/Dextrose (Levaquin 500mg) 500 mg in 100 mls @ 100 mls/hr IVPB DAILY [facility] Last Admin: 02/23/17 09:43 Dose: 100 mls/hr Lorazepam (Ativan) 1 mg IVP Q6H PRN; Protocol PRN Reason: Symptoms of alcohol withdrawl Morphine Sulfate (Morphine) 2 mg IVP Q6 PRN PRN Reason: Pain, moderate (4-7) Multivitamins/Minerals (Therapeutic-M Tab) 1 tab PO DAILY [facility] Ondansetron HCl (Zofran Inj) 4 mg IVP Q4 PRN PRN Reason: Nausea/Vomiting Pantoprazole Sodium (Protonix Inj) 40 mg IVP DAILY [facility] Last Admin: 02/23/17 09:43 Dose: 40 mg Paroxetine HCl (Paxil) 10 mg PO DAILY [facility] Last Admin: 02/23/17 09:42 Dose: 10 mg Thiamine HCl (Vitamin B1 Tab) 50 mg PO DAILY [facility] - Labs Labs: PT 10.6 Seconds (9.9-11.8) 02/22/17 08:00 INR 0.98 (0.93-1.08) 02/22/17 08:00 APTT 24.4 Seconds (23.7-30.8) 02/22/17 08:00 Attending/Attestation - Attestation I have personally seen and examined this patient.: Yes I have fully participated in the care of the patient.: Yes I have reviewed all pertinent clinical information, including history, physical exam and plan: Yes Notes (Text): 02/23/17 12:30 40 year old male with past medical history of alcohol abuse and depression with multiple admissions for ETOH abuse/withdrawal (most recently discharged few days prior) presented with alcohol withdrawal and abdominal pain. He was found to have colitis on CT scan. He is on antibiotics. GI evaluation was requested. He reports his pain is improving. Will advance his diet to clear liquids and advance as tolerated. Stool study for CDif is ordered if patient is having diarrhea. He is on multivitamin, folic acid and thiamine. He is on ativan prn and librium which we will taper. He was counselled on alcohol abstinence. He is on paxil for depression. Addie Melendez MD Hospitalist.
[2017-02-23] MEDS: Multivitamin With Minerals Tab PO SCH (13:02)
--- NOTE | 2017-02-23 22:38 | CON ---
DATE: 02/23/2017 This patient was seen and evaluated earlier and discussed with nursing staff earlier. REASON FOR CONSULTATION: Colitis. HISTORY OF PRESENT ILLNESS: This 41-year-old patient with a long history of ETOH use, hypertension, alcohol, admitted with abdominal pain, nausea and vomiting. He was [facility] following treatment for alcohol withdrawal. The patient since admission denies any further epis odes of vomiting. The patient was complaining of significant abdominal discomfort. The patient did have a CAT scan done again, which found to have pancolitis. GI consult was requested to evaluate thi s. The patient denies any history of bleeding per rectum. History of loose bowel movements, which h e states has stopped now. PAST MEDICAL HISTORY: Significant for as above, history of anxiety, depression, hypertension, disease. SOCIAL HISTORY: Right foot surgery done. ALLERGIES: No known drug allergy. FAMILY HISTORY: Noncontributory. SOCIAL HISTORY: He smokes about 1/4 per pack per day. He also drinks vodka, a pint, daily. In camrina tion to, he also drinks beer. History of cocaine use before. REVIEW OF SYSTEMS: Positive as above. Other systems reviewed. Presently, he wants to eat, feeling hungry and denies any diarrhea. No vomiting. PHYSICAL EXAMINATION: GENERAL: The patient is lying on the bed, not in acute distress. VITAL SIGNS: Temperature is 98, blood pressure is 131/94, respirations 18 and O2 sat is 100%. HEENT: Atraumatic, anicteric. NECK: Supple. HEART: S1, S2 heard. LUNGS: Bilateral air entry present. ABDOMEN: Soft. There is mild tenderness present in the left lower quadrant area. No rebound or gua rding. EXTREMITIES: No edema. No cyanosis. LABORATORY DATA: Hemoglobin 12.2 when admitted in the ER, now it is 10.7 probably due to hydration, as WBC count also has come down to 3.4, platelets 199. Chemistry shows LFTs, ALT is 59. The patient had a CT scan of the abdomen and pelvis done, which was reviewed, which showed pancolitis. IMPRESSION: This 41-year-old patient with a long history of alcohol use, now admitted with diarrhea, vomiting and abdominal pain. The patient's CAT scan shows some diffuse colitis. The differential d iagnosis should include infectious versus inflammatory and also to rule out Clostridium difficile col itis. The patient is presently on Levaquin and Flagyl. Clinically, he is improving. RECOMMENDATIONS: 1. We will start the patient on a clear liquid diet. 2. Send stool cultures and stool for Clostridium difficile. 3. The patient does have elevated LFTs, may be related to alcohol use. The patient had a hepatitis profile done in the past; it was negative. We will continue to closely follow up his care and suggest further recommendation based on the clinic al course. Thank you very much for allowing me to participate in the care of the patient. Mauricio Nolasco MD cc: [id number] TT: 02/23/2017 22:37:07 Confirmation # [id number] Dictation # [id number] mn
[2017-02-24] MEDS: metroNIDAZOLE IV 500 mg/100 ml 500 MG/100 ML BAG IVPB SCH ×2 (05:10→13:46)
[2017-02-24 07:26] LABS: ADD MANUAL DIFF? NO
[2017-02-24 07:41] LABS: BASO # 0.02 K/mm3 (0.0-2.0); BASO % 0.7 % (0.0-3.0); EOS % 0.7 % (1.5-5.0); GRAN # 0.96 (1.4-6.5); GRAN % 34.9 % (50.0-68.0); HEMATOCRIT 33.9 % (42.0-52.0); LYMPH # 1.4 (1.2-3.4); LYMPH % 49.5 % (22.0-35.0); MEAN CELL VOLUME 86.3 fL (80.0-105.0); MEAN CORPUSCULAR HEMOGLOBIN 28.5 pg (25.0-35.0); MEAN PLATELET VOLUME 10.7 fl (7.0-11.0); MONO # 0.4 (0.1-0.6); MONO % 14.2 % (1.0-6.0); PLATELET COUNT 205 10^3/uL (120.0-450.0); RED CELL DISTRIBUTION WIDTH 15.3 % (11.5-14.5)
[2017-02-24 07:43] LABS: ALB/GLOB RATIO 1.3 (1.1-1.8); ALKALINE PHOSPHATASE 51 U/L (38-133); ALT/SGPT 62 U/L (7-56); AST/SGOT 49 U/L (15-59); BILIRUBIN,TOTAL 0.6 mg/dL (0.2-1.3); BLOOD UREA NITROGEN 5 mg/dL (7-21); CALCIUM 9.3 mg/dL (8.4-10.5); CARBON DIOXIDE 27 mmol/L (21-33); CHLORIDE 101 mmol/L (95-110); GFR AFRICAN-AMERICAN > 60; GLUCOSE,RANDOM 90 mg/dL (70-110); POTASSIUM 3.4 mmol/L (3.6-5.0); SODIUM 137 mmol/L (132-148); TOTAL PROTEIN 6.9 g/dL (5.8-8.3)
[2017-02-24 07:50] LABS: WHITE BLOOD COUNT 2.8 10^3/ul (4.5-11.0)
[2017-02-24] MEDS ORDERED: Potassium Chloride 40 mEq/30 ml LIQ UD PO ONE (08:02)
[2017-02-24 08:57] VITALS: BP 122/75; RESP 18; TEMP 97.3; O2SAT 99
[2017-02-24] MEDS: levoFLOXacin 500 mg in D5W 500 MG/100 ML BAG IVPB SCH (09:52)
[2017-02-24] MEDS: Enoxaparin 30 mg Syringe SC SCH (09:53)
[2017-02-24] MEDS: Multivitamin With Minerals Tab PO SCH (09:53)
[2017-02-24 14:22] VITALS: PULSE 65
--- NOTE | 2017-02-24 17:41 | CP.PCM.DIS ---
<Maurilio Paulino - Last Filed: 02/25/17 13:47> Provider - Provider Date of Admission: 02/23/17 09:16 Attending physician: Addie Melendez MD Primary care physician: Griselda Heard MD Consults: Dr. Mauricio Nolasco Time Spent in preparation of Discharge (in minutes): 45 Hospital Course - Lab Results Lab Results: Micro Results 02/23/17 14:04 Stool C. difficile Antigen & Toxin A,B (M - Final Most Recent Lab Values WBC 2.8 10^3/ul (4.5-11.0) L* 02/24/17 07:00 RBC 3.93 10^6/uL (3.5-6.1) 02/24/17 07:00 Hgb 11.2 gm/dL (14.0-18.0) L 02/24/17 07:00 Hct 33.9 % (42.0-52.0) L 02/24/17 07:00 MCV 86.3 fL (80.0-105.0) 02/24/17 07:00 MCH 28.5 pg (25.0-35.0) 02/24/17 07:00 MCHC 33.0 g/dl (31.0-37.0) 02/24/17 07:00 RDW 15.3 % (11.5-14.5) H 02/24/17 07:00 Plt Count 205 10^3/uL (120.0-450.0) 02/24/17 07:00 MPV 10.7 fl (7.0-11.0) 02/24/17 07:00 Gran % 34.9 % (50.0-68.0) L 02/24/17 07:00 Lymph % (Auto) 49.5 % (22.0-35.0) H 02/24/17 07:00 [place] % (Auto) 14.2 % (1.0-6.0) H 02/24/17 07:00 Eos % (Auto) 0.7 % (1.5-5.0) L 02/24/17 07:00 Baso % (Auto) 0.7 % (0.0-3.0) 02/24/17 07:00 Gran # 0.96 (1.4-6.5) L 02/24/17 07:00 Lymph # 1.4 (1.2-3.4) 02/24/17 07:00 [place] # 0.4 (0.1-0.6) 02/24/17 07:00 Eos # 0.0 (0.0-0.7) 02/24/17 07:00 Baso # 0.02 K/mm3 (0.0-2.0) 02/24/17 07:00 PT 10.6 Seconds (9.9-11.8) 02/22/17 08:00 INR 0.98 (0.93-1.08) 02/22/17 08:00 APTT 24.4 Seconds (23.7-30.8) 02/22/17 08:00 Sodium 137 mmol/L (132-148) 02/24/17 07:00 Potassium 3.4 mmol/L (3.6-5.0) L 02/24/17 07:00 Chloride 101 mmol/L (95-110) 02/24/17 07:00 Carbon Dioxide 27 mmol/L (21-33) 02/24/17 07:00 Anion Gap 12 (10-20) 02/24/17 07:00 BUN 5 mg/dL (7-21) L 02/24/17 07:00 Creatinine 0.8 mg/dL (0.5-1.4) 02/24/17 07:00 Est GFR ( Amer) > 60 02/24/17 07:00 Est GFR (Non-Af Amer) > 60 02/24/17 07:00 Random Glucose 90 mg/dL (70-110) 02/24/17 07:00 Calcium 9.3 mg/dL (8.4-10.5) 02/24/17 07:00 Total Bilirubin 0.6 mg/dL (0.2-1.3) 02/24/17 07:00 AST 49 U/L (15-59) 02/24/17 07:00 ALT 62 U/L (7-56) H 02/24/17 07:00 Alkaline Phosphatase 51 U/L (38-133) 02/24/17 07:00 Total Protein 6.9 g/dL (5.8-8.3) 02/24/17 07:00 Albumin 3.9 g/dL (3.0-4.8) 02/24/17 07:00 Globulin 3.0 gm/dL 02/24/17 07:00 Albumin/Globulin Ratio 1.3 (1.1-1.8) 02/24/17 07:00 Lipase 90 U/L (23-300) 02/22/17 08:00 Urine Color Yellow (YELLOW) 02/22/17 13:40 Urine Appearance Clear (CLEAR) 02/22/17 13:40 Urine pH 6.5 (4.7-8.0) 02/22/17 13:40 Ur Specific Surveyor 1.010 (1.005-1.035) 02/22/17 13:40 Urine Protein Negative mg/dL (<30 mg/dL) 02/22/17 13:40 Urine Glucose (UA) Negative mg/dL (NEGATIVE) 02/22/17 13:40 Urine Ketones 15 mg/dL (NEGATIVE) H 02/22/17 13:40 Urine Blood Negative (NEGATIVE) 02/22/17 13:40 Urine Nitrate Negative (NEGATIVE) 02/22/17 13:40 Urine Bilirubin Negative (NEGATIVE) 02/22/17 13:40 Urine Urobilinogen 0.2 E.U./dL (<1 E.U./dL) 02/22/17 13:40 Ur Leukocyte Esterase Negative Georges/uL (NEGATIVE) 02/22/17 13:40 Stool Occult Blood Positive (NEGATIVE) H 02/23/17 11:00 Alcohol, Quantitative 152 mg/dL (0-10) H 02/22/17 08:00 - Hospital Course Hospital Course: H&P: Patient is a 41 yo male with a history of ETOH abuse, hypertension, smoker who presents with abdominal pain, N/V/D that started yesterday. Pt was recently discharged for EtOH withdrwal. He drank 3 pints of vodka. Patient stated that headache, tremors and nausea started upon waking up this morning after last night's drinking and was previously admitted to [facility] for similar symptoms multiple times this year. Patient reports use of cocaine use. Pain is located on LLQ. Non radiating. Burning pain. Also reports SOB and LE tingling. Denies dysuria, frequency, urgency, focal weakness, numbness. Patient is a 41 y/o AA M who presented to the hospital with complaint of abdominal pain, nausea, vomiting, and diarrhea. An initial abdominal CT showed diffuse colonic wall thickening consistent with colitis; enlarged heterogenous prostate gland, thick walled posterior urinary bladder wall. He had a low grade fever but no leukocytosis. He was placed on IV fluids and alcohol withdrawal precautions due to history of alcoholism with withdrawals. GI was consulted. His symptoms improved and his diet was advanced. He had loose bowel movements which were sent of C. diff testing and were negative. He as able to tolerate a regular diet and determined stable for discharge home. He was advised to: resume home medications and take as prescribed; follow up with your primary care physician and [employer] infrastructure architect within a week; drink more fluids and abstain from alcohol, tobacco, or drug use; and if your condition worsens or new symptoms arise, please return to the emergency room. He verbalized understanding and was discharged home. This is a brief summary of the patient's stay. For more detail, see patient's full chart. - Date & Time of H&P Date of H&P: 02/22/17 Time of H&P: 14:23 Discharge Exam - Head Exam Head Exam: ATRAUMATIC, NORMOCEPHALIC - Eye Exam Eye Exam: EOMI, Normal appearance, PERRL Pupil Exam: NORMAL ACCOMODATION, PERRL - ENT Exam ENT Exam: Mucous Membranes Moist. absent: Normal Oropharynx - Respiratory Exam Respiratory Exam: NORMAL BREATHING PATTERN. absent: Rales, Rhonchi, Wheezes - Cardiovascular Exam Cardiovascular Exam: REGULAR RHYTHM, +S1, +S2. absent: Gallop, Rubs, Systolic Murmur - GI/Abdominal Exam GI & Abdominal Exam: Normal Bowel Sounds, Soft. absent: Distended, Guarding, Tenderness - Extremities Exam Extremities exam: normal capillary refill, normal inspection, pedal pulses present - Back Exam Back exam: NORMAL INSPECTION. absent: rash noted, tenderness - Neurological Exam Neurological exam: Alert, CN II-XII Intact, Oriented x3 - Psychiatric Exam Psychiatric exam: Normal Affect, Normal Mood - Skin Skin Exam: Dry, Intact, Normal Color, Warm Discharge Plan - Follow Up Plan Condition: STABLE Disposition: HOME/ ROUTINE Instructions: Pancreatitis (DC), Gastroenteritis (DC), Abuse of Alcohol (DC), Acute Nausea and Vomiting (DC), Acute Abdominal Pain (DC), Acute Abdominal Pain (GEN) Additional Instructions: You are medically stable for discharge. Please resume home medications and take as prescribed. Please follow up with your primary care physician and [employer] infrastructure architect within a week. Please drink more fluids and abstain from alcohol, tobacco, or drug use. If your condition worsens or new symptoms arise, please return to the emergency room. Referrals: Griselda Heard MD [Primary Care Provider] - Mauricio Nolasco MD [Medical Doctor] - <Addie Melendez - Last Filed: 03/03/17 15:17> Provider - Provider Date of Admission: 02/23/17 09:16 Attending physician: Addie Melendez MD Primary care physician: Griselda Heard MD Hospital Course - Lab Results Lab Results: Micro Results 02/23/17 14:04 Stool C. difficile Antigen & Toxin A,B (M - Final Most Recent Lab Values WBC 2.8 10^3/ul (4.5-11.0) L* 02/24/17 07:00 RBC 3.93 10^6/uL (3.5-6.1) 02/24/17 07:00 Hgb 11.2 gm/dL (14.0-18.0) L 02/24/17 07:00 Hct 33.9 % (42.0-52.0) L 02/24/17 07:00 MCV 86.3 fL (80.0-105.0) 02/24/17 07:00 MCH 28.5 pg (25.0-35.0) 02/24/17 07:00 MCHC 33.0 g/dl (31.0-37.0) 02/24/17 07:00 RDW 15.3 % (11.5-14.5) H 02/24/17 07:00 Plt Count 205 10^3/uL (120.0-450.0) 02/24/17 07:00 MPV 10.7 fl (7.0-11.0) 02/24/17 07:00 Gran % 34.9 % (50.0-68.0) L 02/24/17 07:00 Lymph % (Auto) 49.5 % (22.0-35.0) H 02/24/17 07:00 [place] % (Auto) 14.2 % (1.0-6.0) H 02/24/17 07:00 Eos % (Auto) 0.7 % (1.5-5.0) L 02/24/17 07:00 Baso % (Auto) 0.7 % (0.0-3.0) 02/24/17 07:00 Gran # 0.96 (1.4-6.5) L 02/24/17 07:00 Lymph # 1.4 (1.2-3.4) 02/24/17 07:00 [place] # 0.4 (0.1-0.6) 02/24/17 07:00 Eos # 0.0 (0.0-0.7) 02/24/17 07:00 Baso # 0.02 K/mm3 (0.0-2.0) 02/24/17 07:00 PT 10.6 Seconds (9.9-11.8) 02/22/17 08:00 INR 0.98 (0.93-1.08) 02/22/17 08:00 APTT 24.4 Seconds (23.7-30.8) 02/22/17 08:00 Sodium 137 mmol/L (132-148) 02/24/17 07:00 Potassium 3.4 mmol/L (3.6-5.0) L 02/24/17 07:00 Chloride 101 mmol/L (95-110) 02/24/17 07:00 Carbon Dioxide 27 mmol/L (21-33) 02/24/17 07:00 Anion Gap 12 (10-20) 02/24/17 07:00 BUN 5 mg/dL (7-21) L 02/24/17 07:00 Creatinine 0.8 mg/dL (0.5-1.4) 02/24/17 07:00 Est GFR ( Amer) > 60 02/24/17 07:00 Est GFR (Non-Af Amer) > 60 02/24/17 07:00 Random Glucose 90 mg/dL (70-110) 02/24/17 07:00 Calcium 9.3 mg/dL (8.4-10.5) 02/24/17 07:00 Total Bilirubin 0.6 mg/dL (0.2-1.3) 02/24/17 07:00 AST 49 U/L (15-59) 02/24/17 07:00 ALT 62 U/L (7-56) H 02/24/17 07:00 Alkaline Phosphatase 51 U/L (38-133) 02/24/17 07:00 Total Protein 6.9 g/dL (5.8-8.3) 02/24/17 07:00 Albumin 3.9 g/dL (3.0-4.8) 02/24/17 07:00 Globulin 3.0 gm/dL 02/24/17 07:00 Albumin/Globulin Ratio 1.3 (1.1-1.8) 02/24/17 07:00 Lipase 90 U/L (23-300) 02/22/17 08:00 Urine Color Yellow (YELLOW) 02/22/17 13:40 Urine Appearance Clear (CLEAR) 02/22/17 13:40 Urine pH 6.5 (4.7-8.0) 02/22/17 13:40 Ur Specific Surveyor 1.010 (1.005-1.035) 02/22/17 13:40 Urine Protein Negative mg/dL (<30 mg/dL) 02/22/17 13:40 Urine Glucose (UA) Negative mg/dL (NEGATIVE) 02/22/17 13:40 Urine Ketones 15 mg/dL (NEGATIVE) H 02/22/17 13:40 Urine Blood Negative (NEGATIVE) 02/22/17 13:40 Urine Nitrate Negative (NEGATIVE) 02/22/17 13:40 Urine Bilirubin Negative (NEGATIVE) 02/22/17 13:40 Urine Urobilinogen 0.2 E.U./dL (<1 E.U./dL) 02/22/17 13:40 Ur Leukocyte Esterase Negative Georges/uL (NEGATIVE) 02/22/17 13:40 Stool Occult Blood Positive (NEGATIVE) H 02/23/17 11:00 Alcohol, Quantitative 152 mg/dL (0-10) H 02/22/17 08:00 Attending/Attestation - Attestation I have personally seen and examined this patient.: Yes I have fully participated in the care of the patient.: Yes I have reviewed all pertinent clinical information, including history, physical exam and plan: Yes Notes (Text): 03/03/17 15:14 40 year old male with past medical history of alcohol abuse and depression with multiple admissions for ETOH abuse/withdrawal presented with alcohol withdrawal and abdominal pain. He was found to have colitis on CT scan and started on iv antibiotics. His symptoms improved and his diet was advanced as tolerated. Stool for cdiff was negative. He was on multivitamin, folic acid and thiamine. He was on ativan/librium taper. He was counselled on alcohol abstinence. He is on paxil for depression. He is discharged home. Recommended to follow up with pmd. Counselled on alcohol abstinence. Overall prognosis is poor given noncompliance and continuous etoh abuse. Addie Melendez MD Hospitalist.
--- NOTE | 2017-02-25 08:08 | PN ---
DATE: 02/24/2017 SUBJECTIVE: This patient was seen and evaluated earlier today. The patient is now tolerating the di et, has episodes of loose bowel movements. Abdominal discomfort has significantly improved. PHYSICAL EXAMINATION: VITAL SIGNS: Temperature is 97.3, blood pressure is /75, pulse , O2 saturation 99. HEENT: Atraumatic, anicteric. NECK: Supple. HEART: S1, S2 heard. LUNGS: Bilateral normal vesicular breath sounds. ABDOMEN: Soft. No tenderness. EXTREMITIES: No cyanosis, no clubbing, no edema. LABORATORY DATA: WBC 2.8, hemoglobin 11.2, hematocrit 33.9, platelets 205. Chemistry showed the AST and ALT supplemented. IMPRESSION: This is a 41-year-old patient admitted with episodes of nausea, vomiting and had abdomin al discomfort. CAT scan shows colitis. The patient was started on antibiotics, Levaquin and Flagyl. The patient has been clinically doing well. Had some loose episodes of stool. Stool for Clostridi um difficile was negative. The 48-hour cultures were negative. RECOMMENDATIONS: Would recommend to complete the antibiotic course. Advance the diet. Advised stro ngly the patient to avoid alcohol use and is advised to follow up at least for the medical and also the GI clinic. Thank you very much for allowing us to participate in the care of the patient. Mauricio Nolasco MD cc: [id number] TT: 02/24/2017 20:57:52 Confirmation # [id number] Dictation # [id number]
== END 2017-02-24 18:50 | disposition home or self-care (01) | DRG 751 ==
LOC: ED 07:43 → ERH 13:01 → 3RNO 17:43 → OBSVTOIN 02-23 09:16
PROVIDERS: ADMIT Hospitalist; ATTEND Internal Medicine
DX: F10.239 Alcohol dependence with withdrawal, unspecified (principal); K52.9 Noninfective gastroenteritis and colitis, unspecified; F14.10 Cocaine abuse, uncomplicated; I10 Essential (primary) hypertension; F32.9 Major depressive disorder, single episode, unspecified; F41.9 Anxiety disorder, unspecified; Y90.6 Blood alcohol level of 120-199 mg/100 ml

== ENCOUNTER 2017-03-04 13:15 | Emergency (ER) | payer MEDICAID ==
[2017-03-04 13:40] VITALS: BMI 21.0
[2017-03-04 13:43] VITALS: TEMP 99.5; O2SAT 97
[2017-03-04] MEDS ORDERED: Famotidine 20mg/50ml 20 MG/50 ML BAG IV STA (13:44)
--- NOTE | 2017-03-04 13:50 | ED PDOC ---
Arrival/HPI - General Chief Complaint: Abdominal Pain Time Seen by Provider: 03/04/17 13:44 Historian: Patient - History of Present Illness Narrative History of Present Illness (Text): 03/04/17 13:42 A 41 year old male, whose past medical history includes alcohol abuse, presents to the emergency department complaining of nausea, non bloody non bilious vomiting associated with abdominal pain. Patient states identical symptoms in the past, for which he was going through alcohol withdrawal. He notes his last drink was last night. He denies any fever, or other complaints at this time. PMD: Dr. Heard Time/Duration: Prior to Arrival Symptom Onset: Sudden Symptom Course: Unchanged Quality: Other Activities at Onset: Rest Context: Home Past Medical History - Provider Review Nursing Documentation Reviewed: Yes - Infectious Disease Hx of Infectious Diseases: None - Tetanus Immunization Tetanus Immunization: Unknown - Reproductive Currently : No - Past Medical History Past Medical History: No Previous - Cardiac Hx Cardiac Disorders: Yes Hx Hypertension: Yes - Pulmonary Hx Respiratory Disorders: No Hx Chronic Obstructive Pulmonary Disease (COPD): No - Neurological Hx Neurological Disorder: Yes Hx Dizziness: Yes Other/Comment: neuropathy - HEENT Hx HEENT Disorder: No Hx Blind: No Hx Cataracts: No Hx Deafness: No Hx Difficulty Chewing: No Hx Epistaxis: No Hx Glaucoma: No Hx Macular Degeneration: No - Renal Hx Renal Disorder: No Hx Renal Failure: No - Endocrine/Metabolic Hx Endocrine Disorders: No Hx Diabetes Mellitus Type 1: No Hx Diabetes Mellitus Type 2: No Hx Hypothyroidism: No - Hematological/Oncological Hx Blood Disorders: No - Integumentary Hx Dermatological Disorder: No - Musculoskeletal/Rheumatological Hx Musculoskeletal Disorders: Yes Hx Arthritis: No Hx Falls: Yes - Gastrointestinal Hx Gastrointestinal Disorders: Yes Hx Gastroesophageal Reflux: Yes - Genitourinary/Gynecological Hx Genitourinary Disorders: No - Psychiatric Hx Psychophysiologic Disorder: Yes (ETOH, substance abuse,SMOKES CIGARETTES) Hx Anxiety: Yes Hx Depression: Yes Hx Panic Disorder: Yes Hx Substance Use: No (denies) Other/Comment: used cocaine 1 month ago, 1 pt vodka and beer daily - Past Surgical History Past Surgical History: Non-Contributing - Surgical History Hx Musculoskeletal Surgery: Yes (RIGHT FOOT SXrod and screws) Hx Orthopedic Surgery: Yes - Anesthesia Hx Anesthesia: Yes Hx Anesthesia Reactions: No Hx Malignant Hyperthermia: No - Suicidal Assessment Feels Threatened In Home Enviroment: No Family/Social History - Physician Review Nursing Documentation Reviewed: Yes Family/Social History: Unknown Family HX Smoking Status: Current Some Days Smoker Hx Alcohol Use: Yes (DRINKS PINT OF VODKA AND BEER DAILY) Frequency of alcohol use: Daily Hx Substance Use: No (denies) Substance used: marijuana & coaine Hx Substance Use Treatment: No Allergies/Home Meds Allergies/Adverse Reactions: Allergies No Known Allergies Allergy (Verified 03/04/17 13:40) Physical Exam - Physical Exam Narrative Physical Exam (Text): - Review of Systems Constitutional: Normal. absent: Fatigue, Weight Change, Fevers Eyes: Normal ENT: Normal Respiratory: Normal absent: SOB, Cough, Sputum Cardiovascular: Normal absent: Chest pain, Palpitations, Syncope Gastrointestinal: Nausea, Vomiting, Abdominal pain. absent: Diarrhea Genitourinary: Normal. absent: Dysuria, Frequency, Hematuria Musculoskeletal: Normal. absent: Arthralgias, Back Pain, Neck Pain Skin: Normal Neurological: Normal absent: Focal Weakness Endocrine: Normal Hemo/Lymphatic: Normal Psychiatric: Normal - Physical exam Patient appears age appropriate, speaking full sentences without difficulty - Systems Exam Head: Present: Atraumatic, Normocephalic Pupils: Present: PERRL Extraocular Muscles: Present: EOMI Conjunctiva: Present: Normal Mouth: Present: Moist Mucous Membranes Neck: Present: Normal Range of Motion. No: MIDLINE TENDERNESS, Paraspinal Tenderness Respiratory/Chest: Present: Clear to Auscultation, Good Air Exchange. No: Respiratory Distress, Accessory Muscle Use, Tachypneic Cardiovascular: Present: Regular Rate and Rhythm, Normal S1, S2, Peripheral Pulses Present. No: Murmurs Abdomen: Present: Normal Bowel Sounds, No: Tenderness, Peritoneal Signs, Rebound, Guarding, Distention Back: Present: Normal Inspection. No: Midline Tenderness, Paraspinal Tenderness Upper Extremity: Present: Normal Inspection. No: Cyanosis, Edema Lower Extremity: Present: Normal Inspection. No: Edema Neurological: Present: GCS=15, Speech Normal, cranial nerves II through XII fully intact with no cerebellar abnormality, neuro-sensory fully intact. No focal neurological deficits. Skin: Present: Warm, Dry, Normal Color. No: Rashes Lymphatic: Present: OX3, NI, NC Psychiatric: Present: Alert, Oriented x 3, Normal Insight, Normal Concentration Vital Signs Reviewed: Yes Vital Signs Temp Pulse Resp BP Pulse Ox 05/08/17 13:43 99.5 F 68 16 140/96 H 97 Temperature: Afebrile Blood Pressure: Normal Pulse: Regular Respiratory Rate: Normal Appearance: Positive for: Well-Appearing, Non-Toxic, Comfortable Pain Distress: None Mental Status: Positive for: Alert and Oriented X 3 Medical Decision Making ED Course and Treatment: 03/04/17 13:42 Impression: A 41 year old male with nausea, vomiting and abdominal pain. Patient states these symptoms are similar to previous withdrawal symptoms. Physical examination reveals no acute findings. Patient has no tremors, is not tachycardia or hypertensive. Differential Diagnosis include but are not limited to: withdrawal Plan: -- EKG -- Labs -- Ativan and Pepcid -- Reassess and disposition Prior Visits: Notes and results from previous visits were reviewed. The patient was seen by GI on 02/24/17 and was diagnosed with colitis and started on antibiotics. His stool was negative fore C.diff. Patient was recommended to avoid alcohol at that time. Progress Notes: EKG interpreted by ER physician. Normal sinus. No ST-segment elevations. Normal intervals. 03/04/17 16:25 pt has no acute lab abnormalities previously had anemia and decreased WBCs on reevaluation, pt states he has no abd pain, denies n/v, no tremors, denies any complaints pt ambulating with steady gait ate 2 turkey sandwiches and drank juice states he feels comfortable being dc'd home with outpatient f/u, asked for librium Rx On reevaluation, patient's abdomen is soft nontender nondistended with positive bowel sounds in all 4 quadrants and no peritoneal signs. Pt states he understands to return to the ER right away for new or worsening symptoms or for inability to f/u with PMD or specialist as instructed. Patient states that he fully agrees with and understands discharge instructions. States that he agrees with the plan and disposition. Verbalized and repeated discharge instructions and plan. I have given the patient opportunity to ask any additional questions. - Lab Interpretations Lab Results: 03/04/17 12:40 03/04/17 12:40 Lab Results 03/04/17 12:40: Sodium 138, Potassium 3.9, Chloride 104, Carbon Dioxide 21, Anion Gap 17, BUN 18, Creatinine 0.9, Est GFR ( Amer) > 60, Est GFR (Non- Af Amer) > 60, Random Glucose 85, Calcium 9.1, Total Bilirubin 0.7, AST 82 H, ALT 68 H, Alkaline Phosphatase 55, Total Protein 7.9, Albumin 4.3, Globulin 3.6 , Albumin/Globulin Ratio 1.2, Lipase 143 03/04/17 12:40: PT 11.2, INR 1.04, APTT 27.6 03/04/17 12:40: WBC 2.4 L*, RBC 4.11, Hgb 11.9 L, Hct 35.6 L, MCV 86.6, MCH 29.0 , MCHC 33.4, RDW 15.5 H, Plt Count 246, MPV 10.3, Gran % 37.1 L, Lymph % (Auto) 52.9 H, [place] % (Auto) 8.3 H, Eos % (Auto) 0.4 L, Baso % (Auto) 1.3, Gran # 0.89 L, Lymph # 1.3, [place] # 0.2, Eos # 0.0, Baso # 0.03 I have reviewed the lab results: Yes - Medication Orders Current Medication Orders: Discontinued Medications Famotidine (Pepcid 20mg/50ml Premix) 20 mg in 50 mls @ 100 mls/hr IV STAT STA Stop: 03/04/17 14:13 Last Admin: 03/04/17 13:55 Dose: 100 mls/hr Lorazepam (Ativan) 2 mg IVP ONCE ONE Stop: 03/04/17 13:45 Last Admin: 03/04/17 13:55 Dose: 2 mg - Scribe Statement The provider has reviewed the documentation as recorded by the Ruth Méndez Provider Viralibe Attestation: All medical record entries made by the Ruth were at my direction and personally dictated by me. I have reviewed the chart and agree that the record accurately reflects my personal performance of the history, physical exam, medical decision making, and the department course for this patient. I have also personally directed, reviewed, and agree with the discharge instructions and disposition. Disposition/Present on Arrival - Present on Arrival Any Indicators Present on Arrival: No History of DVT/PE: No History of Uncontrolled Diabetes: No Urinary Catheter: No History of Decub. Ulcer: No History Surgical Site Infection Following: None - Disposition Have Diagnosis and Disposition been Completed?: Yes Diagnosis: Abdominal pain Disposition: HOME/ ROUTINE Disposition Time: 16:30 Patient Plan: Discharge Condition: GOOD Discharge Instructions (ExitCare): Abdominal Pain (ED), Alcohol Withdrawal (ED) Additional Instructions: PLEASE RETURN TO THE EMERGENCY DEPARTMENT FOR NEW OR WORSENING SYMPTOMS. RETURN RIGHT AWAY IF YOU CANNOT FOLLOW UP WITH YOUR PRIMARY CARE DOCTOR, CLINIC, OR SPECIALIST IN 1-2 DAYS. Prescriptions: chlordiazePOXIDE [Chlordiazepoxide HCl] 50 mg PO BID PRN #20 cap PRN Reason: Symptoms Of Alcohol Withdrawl Ondansetron [Zofran Odt] 4 mg PO Q6 PRN #14 odt PRN Reason: Nausea/Vomiting Referrals: [facility] Fortunato Choudhury, [Primary Care Provider] - Follow up with primary Concepción Barraza MD [Staff Provider] - Follow up with primary Mauricio Nolasco MD [Medical Doctor] - Follow up with primary
[2017-03-04 13:55] LABS: ADD MANUAL DIFF? NO
[2017-03-04 13:58] LABS: BASO # 0.03 K/mm3 (0.0-2.0); BASO % 1.3 % (0.0-3.0); EOS % 0.4 % (1.5-5.0); GRAN # 0.89 (1.4-6.5); GRAN % 37.1 % (50.0-68.0); HEMATOCRIT 35.6 % (42.0-52.0); LYMPH # 1.3 (1.2-3.4); LYMPH % 52.9 % (22.0-35.0); MEAN CELL VOLUME 86.6 fL (80.0-105.0); MEAN CORPUSCULAR HGB CONC 33.4 g/dl (31.0-37.0); MEAN PLATELET VOLUME 10.3 fl (7.0-11.0); MONO # 0.2 (0.1-0.6); MONO % 8.3 % (1.0-6.0); PLATELET COUNT 246 10^3/uL (120.0-450.0); RED CELL DISTRIBUTION WIDTH 15.5 % (11.5-14.5)
[2017-03-04 14:08] LABS: INR 1.04 (0.93-1.08); PARTIAL THROMBOPLASTIN TIME 27.6 Seconds (23.7-30.8)
[2017-03-04 14:09] LABS: WHITE BLOOD COUNT 2.4 10^3/ul (4.5-11.0)
[2017-03-04 14:18] LABS: ALB/GLOB RATIO 1.2 (1.1-1.8); ALKALINE PHOSPHATASE 55 U/L (38-133); ALT/SGPT 68 U/L (7-56); AST/SGOT 82 U/L (15-59); BILIRUBIN,TOTAL 0.7 mg/dL (0.2-1.3); BLOOD UREA NITROGEN 18 mg/dL (7-21); CALCIUM 9.1 mg/dL (8.4-10.5); CARBON DIOXIDE 21 mmol/L (21-33); CHLORIDE 104 mmol/L (98-107); GFR AFRICAN-AMERICAN > 60; GLUCOSE,RANDOM 85 mg/dL (70-110); LIPASE 143 U/L (23-300); POTASSIUM 3.9 mmol/L (3.6-5.0); SODIUM 138 mmol/L (132-148); TOTAL PROTEIN 7.9 g/dL (5.8-8.3)
--- NOTE | 2017-03-04 15:12 | CARD ---
APPROVED REPORT EKG Measurement Heart [id number] <Conclusion> Normal sinus rhythm Minimal voltage criteria for LVH Tremor artifact present
[2017-03-04 16:32] VITALS: BP 138/87; PULSE 66; RESP 18
== END 2017-03-04 16:54 | disposition home or self-care (01) ==
LOC: ED 13:15
DX: R10.9 Unspecified abdominal pain (principal); I10 Essential (primary) hypertension; K21.9 Gastro-esophageal reflux disease without esophagitis; Z72.0 Tobacco use
CPT/HCPCS: 80053; 83690; 85025; 85610; 85730; 93005; 96374; 99283; J2060

== ENCOUNTER 2017-03-14 07:33 | Observation (INO) | payer MEDICAID ==
[2017-03-14] MEDS ORDERED: Morphine 4 mg/ml ISec IVP ONE ×2 (11:30→17:30)
[2017-03-14 22:41] LABS: ADD MANUAL DIFF? NO
[2017-03-15 04:53] LABS: ALB/GLOB RATIO 1.3 (1.1-1.8); ALKALINE PHOSPHATASE 54 U/L (38-133); ALT/SGPT 52 U/L (7-56); AST/SGOT 111 U/L (15-59); BLOOD UREA NITROGEN 14 mg/dL (7-21); CALCIUM 9.3 mg/dL (8.4-10.5); CARBON DIOXIDE 25 mmol/L (21-33); CHLORIDE 99 mmol/L (98-107); GFR AFRICAN-AMERICAN > 60; GLUCOSE,RANDOM 88 mg/dL (70-110); LIPASE 134 U/L (23-300); MAGNESIUM 1.6 mg/dL (1.7-2.2); POTASSIUM 3.7 mmol/L (3.6-5.0); SODIUM 139 mmol/L (132-148); TOTAL PROTEIN 7.9 g/dL (5.8-8.3)
[2017-03-15 07:10] LABS: HEMATOCRIT 35.6 % (42.0-52.0); MEAN CELL VOLUME 85.8 fL (80.0-105.0); MEAN CORPUSCULAR HEMOGLOBIN 28.4 pg (25.0-35.0); MEAN CORPUSCULAR HGB CONC 33.1 g/dl (31.0-37.0); MEAN PLATELET VOLUME 10.8 fl (7.0-11.0); RED CELL DISTRIBUTION WIDTH 15.1 % (11.5-14.5)
[2017-03-15 07:44] LABS: ALB/GLOB RATIO 1.2 (1.1-1.8); ALKALINE PHOSPHATASE 52 U/L (38-133); ALT/SGPT 51 U/L (7-56); AST/SGOT 62 U/L (15-59); BILIRUBIN,TOTAL 1.4 mg/dL (0.2-1.3); BLOOD UREA NITROGEN 6 mg/dL (7-21); CARBON DIOXIDE 27 mmol/L (21-33); CHLORIDE 97 mmol/L (98-107); GFR AFRICAN-AMERICAN > 60; GLUCOSE,RANDOM 100 mg/dL (70-110); LIPASE 93 U/L (23-300); MAGNESIUM 2.2 mg/dL (1.7-2.2); POTASSIUM 3.4 mmol/L (3.6-5.0); SODIUM 136 mmol/L (132-148); TOTAL PROTEIN 7.7 g/dL (5.8-8.3)
[2017-03-15 08:20] LABS: WHITE BLOOD COUNT 2.6 10^3/ul (4.5-11.0)
[2017-03-15] MEDS: [UNRECOGNIZED DRUG - OTHER] IV SCH (08:29)
[2017-03-15] MEDS: FOLIC ACID IV SCH (08:29)
[2017-03-15] MEDS: THIAMINE IV SCH (08:29)
[2017-03-15] MEDS: MULTIVITAMIN IV SCH (08:29)
[2017-03-15] MEDS: MAGNESIUM SULFATE IV SCH (08:29)
--- NOTE | 2017-03-15 10:45 | CP.PCM.PN ---
<Rosalinda Ojeda - Last Filed: 03/15/17 13:28> Subjective - Date & Time of Evaluation Date of Evaluation: 03/15/17 Time of Evaluation: 10:41 - Subjective Subjective: PGY-1 Medicine Progess note Patient seen and examined at bedside in tele. No acute distress. Nurse reports no events no acute events overnight. Patient states that he has not vomited overnight. Patient states that the abd pain has improved. He is requesting a reg diet, stating he is hungry. He denies nausea, fever, chill,chest pain, sob. Objective - Vital Signs/Intake and Output Vital Signs (last 24 hours): Temp Pulse Resp BP Pulse Ox 98.4 F 72 18 133/92 H 100 03/15/17 06:38 03/15/17 06:38 03/15/17 06:38 03/15/17 06:38 03/15/17 06:38 Intake and Output: 03/15/17 03/15/17 06:59 18:59 Intake Total 0 500 Output Total 500 Balance -500 500 - Medications Medications: Current Medications Folic Acid 1 mg/ Thiamine HCl 100 mg/ Multivitamins/Vitamin C 10 ml/ Magnesium Sulfate 2 gm/ Potassium Chloride 40 meq/Dextrose 1,035.2 mls @ 100 mls/hr IV .[id number] ALEXANDRA Last Admin: 03/15/17 08:29 Dose: 100 mls/hr Potassium Chloride (Potassium Chloride 20 Meq/100 Ml) 20 meq in 100 mls @ 50 mls/hr IVPB ONCE ONE Stop: 03/15/17 11:33 Lorazepam (Ativan) 1 mg IV Q3H PRN PRN Reason: Agitation Ondansetron HCl (Zofran Inj) 4 mg IVP Q4H PRN PRN Reason: Nausea/Vomiting - Labs Labs: 03/15/17 06:30 03/15/17 06:30 - Constitutional Appears: Well, No Acute Distress - Head Exam Head Exam: ATRAUMATIC, NORMOCEPHALIC - Eye Exam Eye Exam: Normal appearance - ENT Exam ENT Exam: Mucous Membranes Moist - Respiratory Exam Respiratory Exam: Clear to Ausculation Bilateral, NORMAL BREATHING PATTERN. absent: Rhonchi, Wheezes, Respiratory Distress - Cardiovascular Exam Cardiovascular Exam: REGULAR RHYTHM. absent: Tachycardia, Murmur - GI/Abdominal Exam GI & Abdominal Exam: Soft, Normal Bowel Sounds. absent: Firm, Guarding, Tenderness - Neurological Exam Neurological Exam: Alert, Awake, Oriented x3 - Skin Skin Exam: Dry, Intact, Normal Color, Warm Assessment and Plan - Assessment and Plan (Free Text) Assessment: 42 yo male with PMH of HTN, anxiety and alcohol abuse presented with nausea, vomiting and alcohol withdrawal. Plan: 1. nausea/vomiting - improved - CT abd/pel, read pending - advance diet as tolerated - zofran as needed - stool studies ordered 2. Alcohol withdrawal - CIWA protocol - banana bag - ativan 1mg q3h PRN 3. HTN - cont home medication, norvasc - monitor HTN 4. anxeity - cont home med paxil ppx - GI- protonix - DVT- scds d/c tele <Yi Oliver - Last Filed: 03/15/17 14:26> Objective - Vital Signs/Intake and Output Vital Signs (last 24 hours): Temp Pulse Resp BP Pulse Ox 98.2 F 85 20 139/103 H 99 03/15/17 12:00 03/15/17 12:00 03/15/17 12:00 03/15/17 12:00 03/15/17 12:00 Intake and Output: 03/15/17 03/15/17 06:59 18:59 Intake Total 0 500 Output Total 500 Balance -500 500 - Medications Medications: Current Medications Amlodipine Besylate (Norvasc) 5 mg PO DAILY [facility] Gabapentin (Neurontin) 400 mg PO TID ALEXANDRA PRN Reason: Protocol Last Admin: 03/15/17 13:36 Dose: 400 mg Folic Acid 1 mg/ Thiamine HCl 100 mg/ Multivitamins/Vitamin C 10 ml/ Magnesium Sulfate 2 gm/ Potassium Chloride 40 meq/Dextrose 1,035.2 mls @ 100 mls/hr IV .[id number] [facility] Last Admin: 03/15/17 08:29 Dose: 100 mls/hr Lorazepam (Ativan) 1 mg IV Q3H PRN PRN Reason: Agitation Ondansetron HCl (Zofran Inj) 4 mg IVP Q4H PRN PRN Reason: Nausea/Vomiting Pantoprazole Sodium (Protonix Ec Tab) 40 mg PO 0630 ALEXANDRA Paroxetine HCl (Paxil) 10 mg PO HS [facility] - Labs Labs: 03/15/17 06:30 03/15/17 06:30 Attending/Attestation - Attestation I have personally seen and examined this patient.: Yes I have fully participated in the care of the patient.: Yes I have reviewed all pertinent clinical information, including history, physical exam and plan: Yes Notes (Text): 03/15/17 14:25 attending note; Patient seen and examined With resident. patient is a 41-year-old male admitted with nausea and vomiting after binge drinking. Mild withdrawal symptoms. Improved. Currently on IV banana bag. Continue potassium and magnesium replacement via IV. Continue IV Ativan prn. Depression; continue Paxil. Complete alcohol cessation Is advised. possible discharge home tomorrow.
--- NOTE | 2017-03-15 13:43 | CT ---
PROCEDURE: CT abdomen and pelvis 03/14/2017. HISTORY: COMPARISON: Comparison made with prior CT scan abdomen pelvis 02/22/2017. TECHNIQUE: Contiguous axial images of the abdomen and pelvis following intravenous injection of approximately 100 cc Omnipaque 350 contrast material. Coronal and Sagittal reformats generated. Radiation dose: Total exam DLP = 316.45 mGy-cm. This CT exam was performed using one or more of the following dose reduction techniques: Automated exposure control, adjustment of the mA and/or kV according to patient size, and/or use of iterative reconstruction technique. FINDINGS: LOWER THORAX: Minor passive type atelectasis both posterior lower lung zones. LIVER: Liver exhibits normal size measuring approximately 17 cm in CC dimension. Mild diffuse fatty hepatic infiltration. No obvious hepatic mass or collection. Portal and splenic veins are opacified. GALLBLADDER AND BILE DUCTS: Gallbladder is physiologically distended. No evidence of intraluminal gallbladder calculi. PANCREAS: The visualized portions the pancreas appear grossly unremarkable. SPLEEN: Spleen exhibits normal size and attenuation pattern without mass collection or calcification. ADRENALS: There are no adrenal lesions. KIDNEYS AND URETERS: Kidneys exhibit symmetric nephrograms. No evidence of nephrolithiasis or hydronephrosis. BLADDER: Urinary bladder is physiologically distended. No evidence of intraluminal urinary bladder calculi. REPRODUCTIVE: Prostate gland appears enlarged measuring approximately 5.2 cm in transverse dimension. Correlation with PSA recommended. . APPENDIX: What is felt to represent normal appendix best seen on coronal image # [id number]. BOWEL: Evaluation of bowel is limited due to the lack of oral contrast material. . Previously noted wall thickening of the colon on prior exam has a improved though some very minor residual wall thickening short-segment distal descending/ sigmoid colon. There are few scattered left-sided colonic diverticula and a few right-sided colonic diverticula best identified on axial images 78- 80. No definitive radiographic evidence of acute diverticulitis. PERITONEUM: Unremarkable. No fluid collection. No free air. LYMPH NODES: Unremarkable. No enlarged lymph nodes. VASCULATURE: Unremarkable. No aortic aneurysm. BONES: The osseous structures appear intact. No fracture or destructive lesion. OTHER FINDINGS: None. IMPRESSION: Interval improvement previously noted diffuse colonic wall thickening/colitis though there is some minor residual wall thickening short-segment distal descending/ proximal sigmoid colon. These few scattered colonic diverticula including a few right-sided diverticula however no radiographic evidence of acute diverticulitis. No evidence of acute appendicitis. Mild fatty hepatic infiltration. Enlargement of the prostate gland. Correlation with PSA recommended
[2017-03-15 16:40] LABS: BASO # 0.03 K/mm3 (0.0-2.0); BASO % 1.5 % (0.0-3.0); EOS % 1.5 % (1.5-5.0); GRAN # 0.49 (1.4-6.5); GRAN % 24.4 % (50.0-68.0); HEMATOCRIT 34.1 % (42.0-52.0); LYMPH # 1.1 (1.2-3.4); LYMPH % 55.7 % (22.0-35.0); MEAN CELL VOLUME 85.3 fL (80.0-105.0); MEAN PLATELET VOLUME 10.9 fl (7.0-11.0); MONO # 0.3 (0.1-0.6); MONO % 16.9 % (1.0-6.0); PLATELET COUNT 160 10^3/uL (120.0-450.0); RED CELL DISTRIBUTION WIDTH 15.5 % (11.5-14.5)
[2017-03-15] MEDS ORDERED: Naproxen 550 mg Tab PO SCH (18:00)
[2017-03-15 19:19] LABS: VENOUS BLOOD GAS BASE EXCESS 2.1 mmol/L (0.0-2.0)
--- NOTE | 2017-03-15 23:15 | CARD ---
APPROVED REPORT EKG Measurement Heart [id number] <Conclusion> Normal sinus rhythm Voltage criteria for left ventricular hypertrophy Abnormal ECG
[2017-03-16] MEDS: FOLIC ACID IV SCH (05:33)
[2017-03-16] MEDS: MAGNESIUM SULFATE IV SCH (05:33)
[2017-03-16] MEDS: MULTIVITAMIN IV SCH (05:33)
[2017-03-16] MEDS: THIAMINE IV SCH (05:33)
[2017-03-16] MEDS: [UNRECOGNIZED DRUG - OTHER] IV SCH (05:33)
[2017-03-16] MEDS ORDERED: Pantoprazole 40 mg EC Tab PO SCH (06:30)
[2017-03-16 07:05] LABS: ADD MANUAL DIFF? NO
[2017-03-16 07:15] LABS: BASO # 0.01 K/mm3 (0.0-2.0); BASO % 0.3 % (0.0-3.0); EOS % 0.7 % (1.5-5.0); GRAN # 1.56 (1.4-6.5); GRAN % 50.8 % (50.0-68.0); HEMATOCRIT 35.7 % (42.0-52.0); LYMPH # 1.2 (1.2-3.4); LYMPH % 39.1 % (22.0-35.0); MEAN CELL VOLUME 86.9 fL (80.0-105.0); MEAN CORPUSCULAR HEMOGLOBIN 28.7 pg (25.0-35.0); MEAN CORPUSCULAR HGB CONC 33.1 g/dl (31.0-37.0); MEAN PLATELET VOLUME 10.7 fl (7.0-11.0); MONO # 0.3 (0.1-0.6); MONO % 9.1 % (1.0-6.0); PLATELET COUNT 149 10^3/uL (120.0-450.0); WHITE BLOOD COUNT 3.1 10^3/ul (4.5-11.0)
[2017-03-16 07:23] LABS: ALB/GLOB RATIO 1.5 (1.1-1.8); ALKALINE PHOSPHATASE 50 U/L (38-133); ALT/SGPT 58 U/L (7-56); AST/SGOT 62 U/L (15-59); BILIRUBIN,TOTAL 0.8 mg/dL (0.2-1.3); BLOOD UREA NITROGEN 11 mg/dL (7-21); CALCIUM 9.3 mg/dL (8.4-10.5); CARBON DIOXIDE 25 mmol/L (21-33); CHLORIDE 100 mmol/L (98-107); GFR AFRICAN-AMERICAN > 60; GLUCOSE,RANDOM 103 mg/dL (70-110); POTASSIUM 4.1 mmol/L (3.6-5.0); SODIUM 133 mmol/L (132-148); TOTAL PROTEIN 7.3 g/dL (5.8-8.3)
[2017-03-16 08:05] VITALS: RESP 18
[2017-03-16] MEDS ORDERED: Multivitamin Therapeutic Tab PO SCH (10:00)
[2017-03-16 17:07] VITALS: BP 116/71; PULSE 77; TEMP 98; O2SAT 100
--- NOTE | 2017-03-16 17:17 | CP.PCM.DIS ---
<Rosalinda Ojeda - Last Filed: 03/16/17 19:32> Provider - Provider Date of Admission: 03/14/17 17:10 Attending physician: Yi Oliver MD Primary care physician: NO PRIMARY CARE PROVIDER Time Spent in preparation of Discharge (in minutes): 35 Hospital Course - Lab Results Lab Results: Most Recent Lab Values WBC 3.1 10^3/ul (4.5-11.0) L 03/16/17 07:03 RBC 4.11 10^6/uL (3.5-6.1) 03/16/17 07:03 Hgb 11.8 gm/dL (14.0-18.0) L 03/16/17 07:03 Hct 35.7 % (42.0-52.0) L 03/16/17 07:03 MCV 86.9 fL (80.0-105.0) 03/16/17 07:03 MCH 28.7 pg (25.0-35.0) 03/16/17 07:03 MCHC 33.1 g/dl (31.0-37.0) 03/16/17 07:03 RDW 15.0 % (11.5-14.5) H 03/16/17 07:03 Plt Count 149 10^3/uL (120.0-450.0) 03/16/17 07:03 MPV 10.7 fl (7.0-11.0) 03/16/17 07:03 Gran % 50.8 % (50.0-68.0) 03/16/17 07:03 Lymph % (Auto) 39.1 % (22.0-35.0) H 03/16/17 07:03 [place] % (Auto) 9.1 % (1.0-6.0) H 03/16/17 07:03 Eos % (Auto) 0.7 % (1.5-5.0) L 03/16/17 07:03 Baso % (Auto) 0.3 % (0.0-3.0) 03/16/17 07:03 Gran # 1.56 (1.4-6.5) 03/16/17 07:03 Lymph # 1.2 (1.2-3.4) 03/16/17 07:03 [place] # 0.3 (0.1-0.6) 03/16/17 07:03 Eos # 0.0 (0.0-0.7) 03/16/17 07:03 Baso # 0.01 K/mm3 (0.0-2.0) 03/16/17 07:03 pO2 223 mm/Hg (30-55) H 03/14/17 10:00 VBG pH 7.40 (7.32-7.43) 03/14/17 10:00 VBG pCO2 28.7 (40-60) L 03/14/17 10:00 VBG HCO3 27.3 mmol/l (21-28) 03/14/17 10:00 VBG Total CO2 28.7 mmol.L (22-28) H 03/14/17 10:00 VBG O2 Sat (Calc) 99.4 % (40-65) H 03/14/17 10:00 VBG Base Excess 2.1 mmol/L (0.0-2.0) H 03/14/17 10:00 VBG Potassium 3.4 mmol/L (3.6-5.2) L 03/14/17 10:00 Sodium 136.0 mmol/L (132-148) 03/14/17 10:00 Chloride 106.0 mmol/L (98-107) 03/14/17 10:00 Glucose 82 mg/dl (75-110) 03/14/17 10:00 Lactate 0.7 mmol/L (0.7-2.1) 03/14/17 10:00 FiO2 21 % 03/14/17 10:00 Sodium 133 mmol/L (132-148) 03/16/17 07:03 Potassium 4.1 mmol/L (3.6-5.0) 03/16/17 07:03 Chloride 100 mmol/L (98-107) 03/16/17 07:03 Carbon Dioxide 25 mmol/L (21-33) 03/16/17 07:03 Anion Gap 12 (10-20) 03/16/17 07:03 BUN 11 mg/dL (7-21) 03/16/17 07:03 Creatinine 0.8 mg/dL (0.5-1.4) 03/16/17 07:03 Est GFR ( Amer) > 60 03/16/17 07:03 Est GFR (Non-Af Amer) > 60 03/16/17 07:03 Random Glucose 103 mg/dL (70-110) 03/16/17 07:03 Calcium 9.3 mg/dL (8.4-10.5) 03/16/17 07:03 Magnesium 2.2 mg/dL (1.7-2.2) 03/15/17 06:30 Total Bilirubin 0.8 mg/dL (0.2-1.3) 03/16/17 07:03 AST 62 U/L (15-59) H 03/16/17 07:03 ALT 58 U/L (7-56) H 03/16/17 07:03 Alkaline Phosphatase 50 U/L (38-133) 03/16/17 07:03 Total Protein 7.3 g/dL (5.8-8.3) 03/16/17 07:03 Albumin 4.4 g/dL (3.0-4.8) 03/16/17 07:03 Globulin 2.9 gm/dL 03/16/17 07:03 Albumin/Globulin Ratio 1.5 (1.1-1.8) 03/16/17 07:03 Lipase 93 U/L (23-300) 03/15/17 06:30 Prostate Specific Ag 1.1 ng/mL (0.00-2.5) 03/16/17 07:03 Venous Blood Potassium 3.4 mmol/L (3.6-5.2) L 03/14/17 10:00 - Hospital Course Hospital Course: 42 yo male with PMH of HTN, anxiety and alcohol abuse presented with nausea, vomiting and alcohol withdrawal. CT abd/pel showed improvement of previous diffuse colonic wall thicken/colitis, diverticula without diverticulitis, fatty liver, no appendicitis and prostates enlargement. Patient was started on banana bag IVF. Zofran as needed. During hospital course patient did not vomit and nausea improved. Patient's diet was advance as tolerated. Patient was placed on CIWA protocol. Once patient was able to tolerate PO, his home medications were started. PSA was within normal limits. Patient is stable for discharge home. No new medications. He is to follow up with PMD. Patient is aware of hospital course and is in agreement with discharge plan. Discharge Exam - Head Exam Head Exam: ATRAUMATIC, NORMOCEPHALIC - Eye Exam Eye Exam: Normal appearance - ENT Exam ENT Exam: Mucous Membranes Moist - Respiratory Exam Respiratory Exam: Clear to PA & Lateral, NORMAL BREATHING PATTERN, UNREMARKABLE. absent: Decreased Breath Sounds, Rales, Rhonchi, Wheezes, Respiratory Distress - Cardiovascular Exam Cardiovascular Exam: REGULAR RHYTHM. absent: Tachycardia, Systolic Murmur - GI/Abdominal Exam GI & Abdominal Exam: Normal Bowel Sounds, Unremarkable. absent: Distended, Firm , Soft, Tenderness - Extremities Exam Extremities exam: normal inspection - Neurological Exam Neurological exam: Alert, Oriented x3 - Skin Skin Exam: Dry, Intact, Normal Color, Warm Discharge Plan - Follow Up Plan Condition: GOOD Disposition: HOME/ ROUTINE Instructions: Alcohol Intoxication (DC), Abuse of Alcohol (DC) Additional Instructions: Patient is medically stable for discharge home. Follow up with PMD No new medications Referrals: PCP,PRINCESS [Primary Care Provider] - <Yi Oliver - Last Filed: 03/17/17 11:35> Provider - Provider Date of Admission: 03/14/17 17:10 Attending physician: Yi Oliver MD Primary care physician: PRINCESS PRIMARY CARE PROVIDER Hospital Course - Lab Results Lab Results: Most Recent Lab Values WBC 3.1 10^3/ul (4.5-11.0) L 03/16/17 07:03 RBC 4.11 10^6/uL (3.5-6.1) 03/16/17 07:03 Hgb 11.8 gm/dL (14.0-18.0) L 03/16/17 07:03 Hct 35.7 % (42.0-52.0) L 03/16/17 07:03 MCV 86.9 fL (80.0-105.0) 03/16/17 07:03 MCH 28.7 pg (25.0-35.0) 03/16/17 07:03 MCHC 33.1 g/dl (31.0-37.0) 03/16/17 07:03 RDW 15.0 % (11.5-14.5) H 03/16/17 07:03 Plt Count 149 10^3/uL (120.0-450.0) 03/16/17 07:03 MPV 10.7 fl (7.0-11.0) 03/16/17 07:03 Gran % 50.8 % (50.0-68.0) 03/16/17 07:03 Lymph % (Auto) 39.1 % (22.0-35.0) H 03/16/17 07:03 [place] % (Auto) 9.1 % (1.0-6.0) H 03/16/17 07:03 Eos % (Auto) 0.7 % (1.5-5.0) L 03/16/17 07:03 Baso % (Auto) 0.3 % (0.0-3.0) 03/16/17 07:03 Gran # 1.56 (1.4-6.5) 03/16/17 07:03 Lymph # 1.2 (1.2-3.4) 03/16/17 07:03 [place] # 0.3 (0.1-0.6) 03/16/17 07:03 Eos # 0.0 (0.0-0.7) 03/16/17 07:03 Baso # 0.01 K/mm3 (0.0-2.0) 03/16/17 07:03 pO2 223 mm/Hg (30-55) H 03/14/17 10:00 VBG pH 7.40 (7.32-7.43) 03/14/17 10:00 VBG pCO2 28.7 (40-60) L 03/14/17 10:00 VBG HCO3 27.3 mmol/l (21-28) 03/14/17 10:00 VBG Total CO2 28.7 mmol.L (22-28) H 03/14/17 10:00 VBG O2 Sat (Calc) 99.4 % (40-65) H 03/14/17 10:00 VBG Base Excess 2.1 mmol/L (0.0-2.0) H 03/14/17 10:00 VBG Potassium 3.4 mmol/L (3.6-5.2) L 03/14/17 10:00 Sodium 136.0 mmol/L (132-148) 03/14/17 10:00 Chloride 106.0 mmol/L (98-107) 03/14/17 10:00 Glucose 82 mg/dl (75-110) 03/14/17 10:00 Lactate 0.7 mmol/L (0.7-2.1) 03/14/17 10:00 FiO2 21 % 03/14/17 10:00 Sodium 133 mmol/L (132-148) 03/16/17 07:03 Potassium 4.1 mmol/L (3.6-5.0) 03/16/17 07:03 Chloride 100 mmol/L (98-107) 03/16/17 07:03 Carbon Dioxide 25 mmol/L (21-33) 03/16/17 07:03 Anion Gap 12 (10-20) 03/16/17 07:03 BUN 11 mg/dL (7-21) 03/16/17 07:03 Creatinine 0.8 mg/dL (0.5-1.4) 03/16/17 07:03 Est GFR ( Amer) > 60 03/16/17 07:03 Est GFR (Non-Af Amer) > 60 03/16/17 07:03 Random Glucose 103 mg/dL (70-110) 03/16/17 07:03 Calcium 9.3 mg/dL (8.4-10.5) 03/16/17 07:03 Magnesium 2.2 mg/dL (1.7-2.2) 03/15/17 06:30 Total Bilirubin 0.8 mg/dL (0.2-1.3) 03/16/17 07:03 AST 62 U/L (15-59) H 03/16/17 07:03 ALT 58 U/L (7-56) H 03/16/17 07:03 Alkaline Phosphatase 50 U/L (38-133) 03/16/17 07:03 Total Protein 7.3 g/dL (5.8-8.3) 03/16/17 07:03 Albumin 4.4 g/dL (3.0-4.8) 03/16/17 07:03 Globulin 2.9 gm/dL 03/16/17 07:03 Albumin/Globulin Ratio 1.5 (1.1-1.8) 03/16/17 07:03 Lipase 93 U/L (23-300) 03/15/17 06:30 Prostate Specific Ag 1.1 ng/mL (0.00-2.5) 03/16/17 07:03 Venous Blood Potassium 3.4 mmol/L (3.6-5.2) L 03/14/17 10:00 Attending/Attestation - Attestation I have personally seen and examined this patient.: Yes I have fully participated in the care of the patient.: Yes I have reviewed all pertinent clinical information, including history, physical exam and plan: Yes Notes (Text): 03/17/17 11:34 attending note; Patient seen and examined With resident. patient is a 41-year-old male admitted with nausea and vomiting after binge drinking. Mild withdrawal symptoms. Improved. Treated with IV banana bag. Treated with Continue IV Ativan prn. Depression; continue Paxil. Complete alcohol cessation Is advised. diagnosis; Alcohol abuse Depression Noncompliance with follow-up
== END 2017-03-16 16:24 | disposition home or self-care (01) ==
LOC: ED 07:33 → INTOOBSV 17:10 → ERH 17:10 → 2RNO 03-15 01:18 → 3RSO 03-15 12:10
PROVIDERS: ADMIT Internal Medicine; ATTEND Internal Medicine
DX: F10.239 Alcohol dependence with withdrawal, unspecified (principal); Y90.9 Presence of alcohol in blood, level not specified; F32.9 Major depressive disorder, single episode, unspecified; Z91.19 Patient's noncompliance with other medical treatment and regimen; R11.2 Nausea with vomiting, unspecified; I10 Essential (primary) hypertension; F41.9 Anxiety disorder, unspecified
CPT/HCPCS: 36415; 74177; 80053; 82803; 83690; 83735; 84153; 85025; 85027; 93005; 97116; 97161; 99281; G0378; G8978; G8979; G8980; J3411; J3475; J7070; Q9967

== ENCOUNTER 2017-03-24 14:57 | Emergency (ER) | payer MEDICAID, OTHER ==
[2017-03-24 14:57] VITALS: BMI 21.0
[2017-03-24] MEDS ORDERED: Famotidine 20mg/50ml 20 MG/50 ML BAG IV STA (15:32)
[2017-03-24] MEDS ORDERED: Sodium Chloride 0.9% 1,000 ML IV STA (15:32)
--- NOTE | 2017-03-24 15:34 | ED PDOC ---
Arrival/HPI - General Chief Complaint: GI Problem Time Seen by Provider: 03/24/17 15:00 Historian: Patient - History of Present Illness Narrative History of Present Illness (Text): 03/24/17 15:33 41 year old male, whose past medical history includes alcohol abuse, presents to the emergency department complaining of nausea, non bloody non bilious vomiting, watery diarrhea and abdominal cramping for the past day. He also states he is anxious. Denies suicidal ideation or homicidal ideation. He reports his last drink was last night. He denies any fever or other complaints at this time. Time/Duration: 24 hours Symptom Onset: Gradual Symptom Course: Unchanged Modifying Factors (Text): None Past Medical History - Provider Review Nursing Documentation Reviewed: Yes - Infectious Disease Hx of Infectious Diseases: None - Tetanus Immunization Tetanus Immunization: Unknown - Reproductive Currently : No - Past Medical History Past Medical History: No Previous - Cardiac Hx Hypertension: Yes - Pulmonary Hx Respiratory Disorders: No Hx Chronic Obstructive Pulmonary Disease (COPD): No - Neurological Hx Neurological Disorder: Yes Hx Dizziness: Yes Other/Comment: neuropathy - HEENT Hx HEENT Disorder: No Hx Blind: No Hx Cataracts: No Hx Deafness: No Hx Difficulty Chewing: No Hx Epistaxis: No Hx Glaucoma: No Hx Macular Degeneration: No - Renal Hx Renal Disorder: No Hx Renal Failure: No - Endocrine/Metabolic Hx Endocrine Disorders: No Hx Diabetes Mellitus Type 1: No Hx Diabetes Mellitus Type 2: No Hx Hypothyroidism: No - Hematological/Oncological Hx Blood Disorders: No - Integumentary Hx Dermatological Disorder: No - Musculoskeletal/Rheumatological Hx Falls: No - Gastrointestinal Hx Gastrointestinal Disorders: Yes Hx Gastroesophageal Reflux: Yes - Genitourinary/Gynecological Hx Genitourinary Disorders: No - Psychiatric Hx Anxiety: Yes Hx Substance Use: No (denies) - Past Surgical History Past Surgical History: Non-Contributing - Surgical History Hx Musculoskeletal Surgery: Yes (RIGHT FOOT SXrod and screws) Hx Orthopedic Surgery: Yes - Anesthesia Hx Anesthesia: Yes Hx Anesthesia Reactions: No Hx Malignant Hyperthermia: No - Suicidal Assessment Feels Threatened In Home Enviroment: No Family/Social History - Physician Review Nursing Documentation Reviewed: Yes Family/Social History: Unknown Family HX Smoking Status: Current Some Days Smoker Hx Alcohol Use: Yes (DRINKS PINT OF VODKA AND BEER DAILY) Hx Substance Use: No (denies) Substance used: marijuana & coaine Hx Substance Use Treatment: No Allergies/Home Meds Allergies/Adverse Reactions: Allergies No Known Allergies Allergy (Verified 03/24/17 15:08) Home Medications: Home Meds Medication Instructions Recorded Confirmed Naproxen [Naprosyn] 500 mg PO BID PRN 03/15/17 03/24/17 Review of Systems - Physician Review All systems were reviewed & negative as marked: Yes Physical Exam - Physical Exam Narrative Physical Exam (Text): - Review of Systems Constitutional: Normal. absent: Fatigue, Weight Change, Fevers Eyes: Normal ENT: Normal Respiratory: Normal absent: SOB, Cough, Sputum Cardiovascular: Normal absent: Chest pain, Palpitations, Syncope Gastrointestinal: Abdominal cramping, Diarrhea, Nausea, Vomiting Genitourinary: Normal. absent: Dysuria, Frequency, Hematuria Musculoskeletal: Normal. absent: Arthralgias, Back Pain, Neck Pain Skin: Normal Neurological: Normal absent: Focal Weakness Endocrine: Normal Hemo/Lymphatic: Normal Psychiatric: Anxiety absent: Suicidal ideation, Homicidal ideation - Physical exam Patient appears age appropriate, speaking full sentences without difficulty - Systems Exam Head: Present: Atraumatic, Normocephalic Pupils: Present: PERRL Extraocular Muscles: Present: EOMI Conjunctiva: Present: Normal Mouth: Present: Moist Mucous Membranes Neck: Present: Normal Range of Motion. No: MIDLINE TENDERNESS, Paraspinal Tenderness Respiratory/Chest: Present: Clear to Auscultation, Good Air Exchange. No: Respiratory Distress, Accessory Muscle Use, Tachypnic Cardiovascular: Present: Regular Rate and Rhythm, Normal S1, S2, Peripheral Pulses Present. No: Murmurs Abdomen: Present: Normal Bowel Sounds, No: Tenderness, Peritoneal Signs, Rebound, Guarding, Distention Back: Present: Normal Inspection. No: Midline Tenderness, Paraspinal Tenderness Upper Extremity: Present: Normal Inspection. No: Cyanosis, Edema Lower Extremity: Present: Normal Inspection. No: Edema Neurological: Present: GCS=15, Speech Normal, cranial nerves II through XII fully intact with no cerebellar abnormality, neuro-sensory fully intact. No focal neurological deficits. No tremors. No signs or symptoms of alcohol withdrawal. Skin: Present: Warm, Dry, Normal Color. No: Rashes Lymphatic: Present: OX3, NI, NC Psychiatric: Present: Alert, Oriented x 3, Normal Insight, Normal Concentration Vital Signs Reviewed: Yes Vital Signs Temp Pulse Resp BP Pulse Ox 03/24/17 16:12 98.7 F 86 18 124/79 98 03/24/17 15:08 99.2 F 90 18 126/85 98 03/24/17 15:04 99.2 F 90 18 126/85 100 Temperature: Afebrile Blood Pressure: Normal Pulse: Regular Respiratory Rate: Normal Appearance: Positive for: Well-Appearing, Non-Toxic, Comfortable Pain Distress: None Mental Status: Positive for: Alert and Oriented X 3 Finger Stick Blood Glucose: 148 Medical Decision Making ED Course and Treatment: Impression: A 41 year old male, whose past medical history includes alcohol abuse, presents to the emergency department complaining of nausea, non bloody non bilious vomiting, watery diarrhea and abdominal cramping for the past day. On physical exam, patient has no signs or symptoms of alcohol withdrawal. Differential Diagnosis included but are not limited to: Nonspecific abdominal pain vs dehydration vs anxiety Plan: -- Ativan, Pepcid, Zofran -- IV fluids -- Labs -- Reassess and disposition Prior Visits: Notes and results from previous visits were reviewed. Patient last seen in the ED on 03/14/17 for abdominal pain, vomiting, diarrhea and discharged home. Progress Notes: 03/24/17 16:19 Noted elevated liver enzymes. They have been elevated on prior occasions. Patient's white count is also low, which is chronic as well. pt informed that he needs to f/u with his PMD early next week for further w/u, pt verbalized understanding. 03/24/17 16:35 On reevaluation, patient reports that he feels much better and would like to be discharged home. Patient's repeat abdominal exam is soft, nontender, non distended with positive bowel sounds in all 4 quadrants and no peritoneal signs. Patient is tolerating PO without any difficulty. Patient is not tremulous, not tachycardic, no signs or symptoms of alcohol withdrawal. Pt states he understands to return to the ER right away for new or worsening symptoms or for inability to f/u with PMD or specialist as instructed. Patient states that he fully agrees with and understands discharge instructions. States that he agrees with the plan and disposition. Verbalized and repeated discharge instructions and plan. I have given the patient opportunity to ask any additional questions. - Lab Interpretations Lab Results: 03/24/17 15:20 03/24/17 15:20 Lab Results 03/24/17 15:20: Sodium 140, Potassium 3.7, Chloride 102, Carbon Dioxide 25, Anion Gap 17, BUN 18, Creatinine 1.0, Est GFR ( Amer) > 60, Est GFR (Non- Af Amer) > 60, Random Glucose 85, Calcium 9.6, Total Bilirubin 0.5, AST 74 H, ALT 67 H, Alkaline Phosphatase 51, Total Protein 8.1, Albumin 4.7, Globulin 3.4 , Albumin/Globulin Ratio 1.4, Lipase 121 03/24/17 15:20: PT 11.2, INR 1.04, APTT 25.0 03/24/17 15:20: WBC 2.6 L*, RBC 4.19, Hgb 12.2 L, Hct 36.0 L, MCV 85.9, MCH 29.1 , MCHC 33.9, RDW 15.5 H, Plt Count 198, MPV 10.5, Neutrophils % (Manual) 29 L, Lymphocytes % (Manual) 64 H, Atypical Lymphs % 0, Monocytes % (Manual) 6, Eosinophils % (Manual) 1 - Medication Orders Current Medication Orders: Discontinued Medications Famotidine (Pepcid 20mg/50ml Premix) 20 mg in 50 mls @ 100 mls/hr IV STAT STA Stop: 03/24/17 16:01 Last Admin: 03/24/17 15:57 Dose: 100 mls/hr Sodium Chloride (Sodium Chloride 0.9%) 1,000 mls @ 1,000 mls/hr IV .Q1H STA Stop: 03/24/17 16:31 Last Admin: 03/24/17 15:00 Dose: 1,000 mls/hr Lorazepam (Ativan) 2 mg IVP ONCE ONE Stop: 03/24/17 15:33 Last Admin: 03/24/17 15:57 Dose: 2 mg Ondansetron HCl (Zofran Inj) 4 mg IVP STAT STA Stop: 03/24/17 15:33 Last Admin: 03/24/17 15:56 Dose: 4 mg - Scribe Statement The provider has reviewed the documentation as recorded by the Ruth Rich Provider Scribe Attestation: All medical record entries made by the Ruth were at my direction and personally dictated by me. I have reviewed the chart and agree that the record accurately reflects my personal performance of the history, physical exam, medical decision making, and the department course for this patient. I have also personally directed, reviewed, and agree with the discharge instructions and disposition. Disposition/Present on Arrival - Present on Arrival Any Indicators Present on Arrival: No History of DVT/PE: No History of Uncontrolled Diabetes: No Urinary Catheter: No History of Decub. Ulcer: No History Surgical Site Infection Following: CABG - Mediastinitis, None - Disposition Have Diagnosis and Disposition been Completed?: Yes Diagnosis: Abdominal pain Disposition: HOME/ ROUTINE Disposition Time: 16:36 Patient Plan: Discharge Condition: GOOD Discharge Instructions (ExitCare): Abdominal Pain (ED), Abuse of Alcohol (ED) Additional Instructions: PLEASE RETURN TO THE EMERGENCY DEPARTMENT FOR NEW OR WORSENING SYMPTOMS. RETURN RIGHT AWAY IF YOU CANNOT FOLLOW UP WITH YOUR PRIMARY CARE DOCTOR, CLINIC, OR SPECIALIST IN 1-2 DAYS. Prescriptions: chlordiazePOXIDE [Chlordiazepoxide HCl] 50 mg PO TID PRN #30 cap PRN Reason: Symptoms Of Alcohol Withdrawl Referrals: Griselda Heard MD [Primary Care Provider] - Follow up with primary
[2017-03-24 15:50] LABS: MEAN CELL VOLUME 85.9 fL (80.0-105.0); MEAN CORPUSCULAR HEMOGLOBIN 29.1 pg (25.0-35.0); MEAN CORPUSCULAR HGB CONC 33.9 g/dl (31.0-37.0); MEAN PLATELET VOLUME 10.5 fl (7.0-11.0); PLATELET COUNT 198 10^3/uL (120.0-450.0); RED CELL DISTRIBUTION WIDTH 15.5 % (11.5-14.5)
[2017-03-24 15:54] LABS: ADD MANUAL DIFF? YES; WHITE BLOOD COUNT 2.6 10^3/ul (4.5-11.0)
[2017-03-24 15:58] LABS: ALB/GLOB RATIO 1.4 (1.1-1.8); ALKALINE PHOSPHATASE 51 U/L (38-133); ALT/SGPT 67 U/L (7-56); AST/SGOT 74 U/L (15-59); BILIRUBIN,TOTAL 0.5 mg/dL (0.2-1.3); BLOOD UREA NITROGEN 18 mg/dL (7-21); CALCIUM 9.6 mg/dL (8.4-10.5); CARBON DIOXIDE 25 mmol/L (21-33); CHLORIDE 102 mmol/L (98-107); GFR AFRICAN-AMERICAN > 60; GLUCOSE,RANDOM 85 mg/dL (70-110); INR 1.04 (0.93-1.08); LIPASE 121 U/L (23-300); POTASSIUM 3.7 mmol/L (3.6-5.0); SODIUM 140 mmol/L (132-148); TOTAL PROTEIN 8.1 g/dL (5.8-8.3)
[2017-03-24 16:12] VITALS: TEMP 98.7
[2017-03-24 16:33] LABS: ATYPICAL LYMPHOCYTE 0 % (0.0-0.0); EOSINOPHIL 1 % (0.0-3.0); NEUTROPHIL 29 % (50.0-70.0)
[2017-03-24 17:05] VITALS: BP 125/80; PULSE 82; RESP 17; O2SAT 99
== END 2017-03-24 17:05 | disposition home or self-care (01) ==
LOC: ED 14:57
DX: R10.9 Unspecified abdominal pain (principal)
CPT/HCPCS: 80053; 83690; 85025; 85610; 85730; 96361; 96365; 96375; 99285; J2060; J2405; J7040

== ENCOUNTER 2017-04-02 13:09 | Emergency (ER) | payer MEDICAID ==
[2017-04-02 13:10] VITALS: BMI 21.0
[2017-04-02 13:21] VITALS: O2SAT 100
[2017-04-02] MEDS ORDERED: THIAMINE IV ONE (13:26)
[2017-04-02] MEDS ORDERED: [UNRECOGNIZED DRUG - OTHER] IV ONE (13:26)
[2017-04-02] MEDS ORDERED: MULTIVITAMIN IV ONE (13:26)
[2017-04-02] MEDS ORDERED: FOLIC ACID IV ONE (13:26)
[2017-04-02 13:29] VITALS: TEMP 97.5
--- NOTE | 2017-04-02 13:43 | RAD ---
HISTORY: Shortness of breath COMPARISON: 02/22/2017. FINDINGS: LUNGS: The lungs are well inflated and clear. PLEURA: No significant pleural effusion identified, no pneumothorax apparent. CARDIOVASCULAR: Normal. OSSEOUS STRUCTURES: No significant abnormalities. VISUALIZED UPPER ABDOMEN: Normal. OTHER FINDINGS: None. IMPRESSION: No active pulmonary disease.
[2017-04-02] MEDS ORDERED: Folic Acid 1 MG, Thiamine 100 MG, Multivitamin (MVI) 10 ML in Dextrose 5%/0.45% NS 1,00... IV ONE (13:47)
--- NOTE | 2017-04-02 13:47 | ED PDOC ---
Arrival/HPI - General Time Seen by Provider: 04/02/17 13:10 Historian: Patient - History of Present Illness Narrative History of Present Illness (Text): 04/02/17 13:20 A 41 year old male, whose past medical history includes alcohol abuse, presents to the emergency department complaining of nausea, vomiting, diarrhea, abdominal cramping and tremors since this morning. Patient notes symptoms are similar to previous episodes of alcohol withdrawal. He denies any fever, chest pain or other complaints at this time. Patient states his last drink was last night. PMD: Dr. Heard Time/Duration: 1-3 hours Symptom Onset: Sudden Symptom Course: Unchanged Quality: Cramping, Other Activities at Onset: Rest Context: Home Past Medical History - Provider Review Nursing Documentation Reviewed: Yes - Infectious Disease Hx of Infectious Diseases: None - Tetanus Immunization Tetanus Immunization: Unknown - Reproductive Currently : No - Past Medical History Past Medical History: No Previous - Cardiac Hx Hypertension: Yes - Pulmonary Hx Respiratory Disorders: No Hx Chronic Obstructive Pulmonary Disease (COPD): No - Neurological Hx Neurological Disorder: Yes Hx Dizziness: Yes Other/Comment: neuropathy - HEENT Hx HEENT Disorder: No Hx Blind: No Hx Cataracts: No Hx Deafness: No Hx Difficulty Chewing: No Hx Epistaxis: No Hx Glaucoma: No Hx Macular Degeneration: No - Renal Hx Renal Disorder: No Hx Renal Failure: No - Endocrine/Metabolic Hx Endocrine Disorders: No Hx Diabetes Mellitus Type 1: No Hx Diabetes Mellitus Type 2: No Hx Hypothyroidism: No - Hematological/Oncological Hx Blood Disorders: No - Integumentary Hx Dermatological Disorder: No - Musculoskeletal/Rheumatological Hx Falls: No - Gastrointestinal Hx Gastrointestinal Disorders: Yes Hx Gastroesophageal Reflux: Yes - Genitourinary/Gynecological Hx Genitourinary Disorders: No - Psychiatric Hx Anxiety: Yes Hx Substance Use: No (denies) - Past Surgical History Past Surgical History: Non-Contributing - Surgical History Hx Musculoskeletal Surgery: Yes (RIGHT FOOT SXrod and screws) Hx Orthopedic Surgery: Yes - Anesthesia Hx Anesthesia: Yes Hx Anesthesia Reactions: No Hx Malignant Hyperthermia: No - Suicidal Assessment Feels Threatened In Home Enviroment: No Family/Social History - Physician Review Nursing Documentation Reviewed: Yes Family/Social History: Unknown Family HX Smoking Status: Current Some Days Smoker Hx Alcohol Use: Yes (DRINKS PINT OF VODKA AND BEER DAILY) Hx Substance Use: No (denies) Substance used: marijuana & coaine Hx Substance Use Treatment: No Allergies/Home Meds Allergies/Adverse Reactions: Allergies No Known Allergies Allergy (Verified 03/24/17 15:08) Home Medications: Home Meds Medication Instructions Recorded Confirmed Naproxen [Naprosyn] 500 mg PO BID PRN 03/15/17 03/24/17 Review of Systems - Physician Review All systems were reviewed & negative as marked: Yes - Review of Systems Constitutional: absent: Fevers Cardiovascular: absent: Chest Pain Gastrointestinal: Abdominal Pain, Diarrhea, Nausea, Vomiting Physical Exam Vital Signs Reviewed: Yes Vital Signs Temp Pulse Resp BP Pulse Ox 04/02/17 14:36 69 18 148/89 100 04/02/17 13:29 97.5 F L 76 18 150/98 H 100 04/02/17 13:21 98.2 F 72 18 142/81 100 Temperature: Afebrile Blood Pressure: Normal Pulse: Regular Respiratory Rate: Normal Appearance: Positive for: Well-Appearing, Non-Toxic, Uncomfortable Pain Distress: None Mental Status: Positive for: Alert and Oriented X 3 - Systems Exam Head: Present: Atraumatic, Normocephalic Pupils: Present: PERRL Extroacular Muscles: Present: EOMI Conjunctiva: Present: Normal Mouth: Present: Moist Mucous Membranes Neck: Present: Normal Range of Motion Respiratory/Chest: Present: Clear to Auscultation, Good Air Exchange. No: Respiratory Distress, Accessory Muscle Use Cardiovascular: Present: Regular Rate and Rhythm, Normal S1, S2. No: Murmurs Abdomen: Present: Normal Bowel Sounds. No: Tenderness, Distention, Peritoneal Signs Back: Present: Normal Inspection Upper Extremity: Present: Normal Inspection. No: Cyanosis, Edema Lower Extremity: Present: Normal Inspection. No: Edema Neurological: Present: GCS=15, CN II-XII Intact, Speech Normal, Motor Func Grossly Intact, Normal Sensory Function Skin: Present: Warm, Dry, Normal Color, Diaphoretic. No: Rashes Psychiatric: Present: Alert, Oriented x 3, Normal Insight, Normal Concentration , Other (tremulous) Medical Decision Making ED Course and Treatment: 04/02/17 13:20 Impression: A 41 year old male with nausea, vomiting, diarrhea, abdominal pain and tremor. Differential Diagnosis include but are not limited to: alcohol withdrawal Plan: -- EKG -- Chest X-ray -- Labs -- Urinalysis -- Banana Bag, Pepcid, and Zofran -- Reassess and disposition Prior Visits: Notes and results from previous visits were reviewed. This patient is well known to the emergency department, he presents multiple times within a month. He last presented to the emergency department on 03/24/17 for evaluation of nausea, vomiting, diarrhea and abdominal cramping. Progress Notes: 04/02/17 13:41 Chest X-ray: Dictated by Dr. Mayi Edwards Impression: No active pulmonary disease. 04/02/17 16:29 Patient's vitals, ekg, and labs are unremarkable, and he now feels much better with resolution of all symptoms and asking to go home. He says he has librium at home, which he will take. Ok for d/c. - Lab Interpretations Lab Results: 04/02/17 14:20 04/02/17 14:20 Lab Results 04/02/17 14:20: Alcohol, Quantitative 23 H 04/02/17 14:20: Urine Opiates Screen Negative, Urine Methadone Screen Negative, Ur Barbiturates Screen Negative, Ur Phencyclidine Scrn Negative, Ur Amphetamines Screen Negative, U Benzodiazepines Scrn Positive H, U Oth Cocaine Metabols Positive H, U Cannabinoids Screen Negative 04/02/17 14:20: Sodium 138, Potassium 3.8, Chloride 99, Carbon Dioxide 27, Anion Gap 16, BUN 13, Creatinine 0.8, Est GFR ( Amer) > 60, Est GFR (Non- Af Amer) > 60, Random Glucose 84, Calcium 9.7, Magnesium 1.3 L, Total Bilirubin 0.5, AST 119 H, ALT 75 H, Alkaline Phosphatase 59, Lactate Dehydrogenase 657, Total Creatine Kinase 322 H, CK-MB (CK-2) 2.9, CK-MB (CK-2) % Cancelled, Troponin I < 0.01, Total Protein 7.7, Albumin 4.6, Globulin 3.1, Albumin/ Globulin Ratio 1.5, Lipase 172 04/02/17 14:20: Urine Color Yellow, Urine Appearance Clear, Urine pH 7.0, Ur Specific [place] 1.020, Urine Protein Trace H, Urine Glucose (UA) Negative, Urine Ketones Negative, Urine Blood Negative, Urine Nitrate Negative, Urine Bilirubin Negative, Urine Urobilinogen 0.2, Ur Leukocyte Esterase Negative, Urine RBC Negative, Urine WBC Negative 04/02/17 14:20: WBC 2.6 L*, RBC 4.32, Hgb 12.5 L, Hct 37.8 L, MCV 87.5, MCH 28.9 , MCHC 33.1, RDW 15.5 H, Plt Count 135, MPV 11.0, Gran % 58.9, Lymph % (Auto) 31.9, [place] % (Auto) 8.0 H, Eos % (Auto) 0.4 L, Baso % (Auto) 0.8, Gran # 1.55, Lymph # 0.8 L, [place] # 0.2, Eos # 0.0, Baso # 0.02 04/02/17 14:15: PT 11.3, INR 1.05, APTT 25.5 I have reviewed the lab results: Yes - RAD Interpretation Radiology Orders: 04/02/17 13:24 CHEST PORTABLE [RAD] Stat - EKG Interpretation EKG Interpretation (Text): 04/02/17 16:29 NSR @ 71; no ST/T changes; normal intervals; normal access. Interpreted by ED Physician: Yes Type: 12 lead EKG - Medication Orders Current Medication Orders: Discontinued Medications Famotidine (Pepcid) 20 mg IVP STAT STA Stop: 04/02/17 13:27 Last Admin: 04/02/17 14:15 Dose: 20 mg Folic Acid 1 mg/ Thiamine HCl 100 mg/ Multivitamins/Vitamin C 10 ml/ Dextrose/ Sodium Chloride 1,011.2 mls @ 500 mls/hr IV ONCE ONE Stop: 04/02/17 15:27 Folic Acid 1 mg/ Thiamine HCl 100 mg/ Multivitamins/Vitamin C 10 ml/ Dextrose/ Sodium Chloride 1,011.2 mls @ 500 mls/hr IV ONCE ONE Stop: 04/02/17 15:27 Last Admin: 04/02/17 14:25 Dose: 500 mls/hr Lorazepam (Ativan) 2 mg IVP ONCE ONE PRN Reason: Protocol Stop: 04/02/17 14:57 Last Admin: 04/02/17 15:02 Dose: 2 mg Ondansetron HCl (Zofran Inj) 4 mg IVP STAT STA Stop: 04/02/17 13:27 Last Admin: 04/02/17 14:15 Dose: 4 mg - Scribe Statement The provider has reviewed the documentation as recorded by the Ruth Méndez Provider Ruth Attestation: All medical record entries made by the Ruth were at my direction and personally dictated by me. I have reviewed the chart and agree that the record accurately reflects my personal performance of the history, physical exam, medical decision making, and the department course for this patient. I have also personally directed, reviewed, and agree with the discharge instructions and disposition. Disposition/Present on Arrival - Present on Arrival Any Indicators Present on Arrival: No History of DVT/PE: No History of Uncontrolled Diabetes: No Urinary Catheter: No History Surgical Site Infection Following: None - Disposition Have Diagnosis and Disposition been Completed?: Yes Diagnosis: Alcohol withdrawal, Vomiting Disposition: HOME/ ROUTINE Disposition Time: 16:30 Patient Plan: Discharge Patient Problems: Current Active Problems Problem Status Onset Alcohol withdrawal Acute Vomiting Acute Condition: GOOD Discharge Instructions (ExitCare): Alcohol Withdrawal (ED) Additional Instructions: Avoid alcohol use and use your librium as previously prescribed. Drink plenty of fluids. Return to the emergency department if any new concerning symptoms. Referrals: Griselda Heard MD [Primary Care Provider] - Follow up with primary
[2017-04-02 14:30] LABS: ADD MANUAL DIFF? NO
[2017-04-02 14:38] LABS: URINE BILIRUBIN NEGATIVE (NEGATIVE); URINE BLOOD NEGATIVE (NEGATIVE); URINE GLUCOSE (UA) NEGATIVE (NEGATIVE); URINE KETONE NEGATIVE (NEGATIVE); URINE LEUKOCYTE ESTERASE NEGATIVE Leu/uL (NEGATIVE); URINE PROTEIN TRACE mg/dL (<30 mg/dL); URINE UROBILINOGEN 0.2 E.U./dL (<1 E.U./dL)
[2017-04-02 14:40] LABS: BASO # 0.02 K/mm3 (0.0-2.0); BASO % 0.8 % (0.0-3.0); EOS % 0.4 % (1.5-5.0); GRAN # 1.55 (1.4-6.5); GRAN % 58.9 % (50.0-68.0); HEMATOCRIT 37.8 % (42.0-52.0); LYMPH # 0.8 (1.2-3.4); LYMPH % 31.9 % (22.0-35.0); MEAN CELL VOLUME 87.5 fL (80.0-105.0); MEAN CORPUSCULAR HEMOGLOBIN 28.9 pg (25.0-35.0); MEAN CORPUSCULAR HGB CONC 33.1 g/dl (31.0-37.0); MONO # 0.2 (0.1-0.6); PLATELET COUNT 135 10^3/uL (120.0-450.0); RED CELL DISTRIBUTION WIDTH 15.5 % (11.5-14.5); URINE APPEARANCE CLEAR (CLEAR); URINE COLOR YELLOW (YELLOW)
[2017-04-02 14:43] LABS: WHITE BLOOD COUNT 2.6 10^3/ul (4.5-11.0)
[2017-04-02 14:47] LABS: INR 1.05 (0.93-1.08); PARTIAL THROMBOPLASTIN TIME 25.5 Seconds (23.7-30.8)
[2017-04-02 14:53] LABS: URINE RBC NEGATIVE /hpf (0-2); URINE WBC NEGATIVE /hpf (0-6)
[2017-04-02 15:28] LABS: ALB/GLOB RATIO 1.5 (1.1-1.8); ALKALINE PHOSPHATASE 59 U/L (38-133); ALT/SGPT 75 U/L (7-56); AST/SGOT 119 U/L (15-59); BILIRUBIN,TOTAL 0.5 mg/dL (0.2-1.3); BLOOD UREA NITROGEN 13 mg/dL (7-21); CALCIUM 9.7 mg/dL (8.4-10.5); CARBON DIOXIDE 27 mmol/L (21-33); CHLORIDE 99 mmol/L (98-107); GFR AFRICAN-AMERICAN > 60; GLUCOSE,RANDOM 84 mg/dL (70-110); LIPASE 172 U/L (23-300); MAGNESIUM 1.3 mg/dL (1.7-2.2); POTASSIUM 3.8 mmol/L (3.6-5.0); SODIUM 138 mmol/L (132-148); TOTAL PROTEIN 7.7 g/dL (5.8-8.3)
[2017-04-02 15:39] LABS: TROPONIN I < 0.01 ng/mL
[2017-04-02 16:49] VITALS: BP 158/99; PULSE 74; RESP 16
--- NOTE | 2017-04-03 11:02 | CARD ---
APPROVED REPORT EKG Measurement Heart [id number] <Conclusion> Normal sinus rhythm Moderate voltage criteria for LVH, may be normal variant J-point elevations c/w early repolarization
== END 2017-04-02 16:49 | disposition home or self-care (01) ==
LOC: ED 13:09
DX: R11.10 Vomiting, unspecified (principal); F10.239 Alcohol dependence with withdrawal, unspecified; Y90.1 Blood alcohol level of 20-39 mg/100 ml; I10 Essential (primary) hypertension; K21.9 Gastro-esophageal reflux disease without esophagitis; Z72.0 Tobacco use
CPT/HCPCS: 71010; 80053; 80320; 80324; 80345; 80346; 80349; 80353; 80358; 80361; 81001; 82550; 82553; 83615; 83690; 83735; 83992; 84484; 85025; 85610; 85730; 93005; 96374; 96375; 99284; J2060; J2405; J3411; J7042

== ENCOUNTER 2017-04-10 13:54 | Observation (INO) | payer MEDICAID ==
[2017-04-10 13:58] VITALS: TEMP 98.2; O2SAT 99
[2017-04-10] MEDS ORDERED: Sodium Chloride 0.9% 1,000 ML IV STA ×2 (14:04→17:20)
[2017-04-10 14:05] VITALS: BMI 20.2
[2017-04-10] MEDS ORDERED: Folic Acid 1 MG, Thiamine 100 MG, Multivitamin (MVI) 10 ML, Magnesium Sulfate 2 GM in D... IV ONE (14:05)
--- NOTE | 2017-04-10 14:06 | ED PDOC ---
Arrival/HPI <Zuleyka Johnson - Last Filed: 04/10/17 20:19> <Gwen Betancourt - Last Filed: 04/10/17 20:48> - General Chief Complaint: Abdominal Pain Time Seen by Provider: 04/10/17 13:57 - History of Present Illness Narrative History of Present Illness (Text): 04/10/17 14:16 41 y/o M w/ PMHx of HTN, GERD, Depression/Anxiety, EtOH presents to the ED c/o abd pain, vomiting and diarrhea. Pt states suddenly felt nauseous w/ vomiting x1 yesterday, after which pt felt better. This morning pt admits to second episode NBNB vomiting accompanied by LLQ abd pain and diarrhea x5 episodes. Diarrhea described as watery. LLQ pain constant 10/10 described as painful. Pt admits to FALCON and lightheadedness following this AM vomiting. Pt denies sick contacts, recent illness, F/C, CP. Pt reports SOB 2/2 abd pain. (Zuleyka Johnson) Past Medical History - Provider Review Nursing Documentation Reviewed: Yes - Infectious Disease Hx of Infectious Diseases: None - Tetanus Immunization Tetanus Immunization: Unknown - Reproductive Currently : No - Past Medical History Past Medical History: No Previous - Cardiac Hx Hypertension: Yes - Pulmonary Hx Respiratory Disorders: No Hx Chronic Obstructive Pulmonary Disease (COPD): No - Neurological Hx Neurological Disorder: Yes Hx Dizziness: Yes Other/Comment: neuropathy - HEENT Hx HEENT Disorder: No Hx Blind: No Hx Cataracts: No Hx Deafness: No Hx Difficulty Chewing: No Hx Epistaxis: No Hx Glaucoma: No Hx Macular Degeneration: No - Renal Hx Renal Disorder: No Hx Renal Failure: No - Endocrine/Metabolic Hx Endocrine Disorders: No Hx Diabetes Mellitus Type 1: No Hx Diabetes Mellitus Type 2: No Hx Hypothyroidism: No - Hematological/Oncological Hx Blood Disorders: No - Integumentary Hx Dermatological Disorder: No - Musculoskeletal/Rheumatological Hx Falls: No - Gastrointestinal Hx Gastrointestinal Disorders: Yes Hx Gastroesophageal Reflux: Yes - Genitourinary/Gynecological Hx Genitourinary Disorders: No - Psychiatric Hx Anxiety: Yes Hx Substance Use: No (denies) - Past Surgical History Past Surgical History: Non-Contributing - Surgical History Hx Musculoskeletal Surgery: Yes (RIGHT FOOT SXrod and screws) Hx Orthopedic Surgery: Yes - Anesthesia Hx Anesthesia: Yes Hx Anesthesia Reactions: No Hx Malignant Hyperthermia: No - Suicidal Assessment Feels Threatened In Home Enviroment: No <Zuleyka Johnson - Last Filed: 04/10/17 20:19> Family/Social History - Physician Review Nursing Documentation Reviewed: Yes Family/Social History: No Known Family HX Smoking Status: Current Some Days Smoker Hx Alcohol Use: Yes (DRINKS P[employer] OF VODKA AND BEER DAILY) Hx Substance Use: No (denies) Substance used: marijuana & coaine Hx Substance Use Treatment: No <Zuleyka Johnson - Last Filed: 04/10/17 20:19> Allergies/Home Meds <Zuleyka Johnson - Last Filed: 04/10/17 20:19> <Ángel Betancourtjuana - Last Filed: 04/10/17 20:48> Allergies/Adverse Reactions: Allergies No Known Allergies Allergy (Verified 03/24/17 15:08) Home Medications: Home Meds Medication Instructions Recorded Confirmed Naproxen [Naprosyn] 500 mg PO BID PRN 03/15/17 04/10/17 Review of Systems - Physician Review All systems were reviewed & negative as marked: Yes - Review of Systems Constitutional: absent: Fevers Cardiovascular: absent: Chest Pain <Zuleyka Johnson Last Filed: 04/10/17 20:19> Physical Exam Vital Signs Reviewed: Yes Temperature: Afebrile Blood Pressure: Normal Pulse: Regular Respiratory Rate: Normal Appearance: Positive for: Non-Toxic, Uncomfortable Pain Distress: Moderate Mental Status: Positive for: Alert and Oriented X 3 - Systems Exam Head: Present: Atraumatic, Normocephalic Pupils: Present: PERRL Extroacular Muscles: Present: EOMI Conjunctiva: Present: Normal Mouth: Present: Moist Mucous Membranes Respiratory/Chest: Present: Good Air Exchange, Rhonchi (LLL). No: Respiratory Distress, Accessory Muscle Use Cardiovascular: Present: Regular Rate and Rhythm, Normal S1, S2. No: Murmurs Abdomen: Present: Tenderness (diffuse TTP, worse epigastric and LLQ), Normal Bowel Sounds. No: Distention, Peritoneal Signs, Rebound, Guarding Upper Extremity: Present: Normal Inspection Lower Extremity: Present: Normal Inspection. No: Edema Neurological: Present: GCS=15, Speech Normal Skin: Present: Warm, Dry, Normal Color Psychiatric: Present: Alert, Oriented x 3, Normal Affect, Normal Mood <Zuleyka Johnson - Last Filed: 04/10/17 20:19> Medical Decision Making - Lab Interpretations I have reviewed the lab results: Yes - EKG Interpretation Interpreted by ED Physician: Yes (NSR, rate 66, no ST changes) Type: 12 lead EKG <Zuleyka Johnson - Last Filed: 04/10/17 20:19> <Gwen Betancourt - Last Filed: 04/10/17 20:48> ED Course and Treatment: 04/10/17 14:22 41 y/o M w/ abd pain - Labs - UA, Urine drug - NS bolus - Zofran, Pepcid, Toradol - Ativan 2mg - EKG - reassess and dispo 04/10/17 15:43 Pt resting comfortably. Pain improved. c/o generalized weakness. (Zuleyka Johnson) Patient Seen With Resident: In agreement with resident note which contains more details about the patient. Patient was seen and evaluated with resident. Came up with plan and treatment together. A 41 year old male presents with abdominal pain, vomiting and diarrhea. Additional HPI details as noted by resident. On physical exam, patient had rhonchi and diffuse tenderness to palpation, worse epigastric and left lower quadrant of abdomen. EKG, labs and Urinalysis ordered. Will give Pepcid, Ativan , Folic acid, Toradol, IV fluids and Zofran. (Gwen Betancourt) - RAD Interpretation Narrative RAD Interpretations (Text): 04/10/17 18:54 CT A/P FINDINGS: LOWER THORAX: No visible consolidation, pleural effusion, or pneumothorax. LIVER: Hypoattenuation of the liver consistent with hepatic steatosis. GALLBLADDER AND BILE DUCTS: Unremarkable. PANCREAS: Unremarkable. SPLEEN: Unremarkable. ADRENALS: Unremarkable. KIDNEYS AND URETERS: The kidneys enhance symmetrically. No hydronephrosis or obstructing calculus identified. VASCULATURE: No aortic aneurysm. BOWEL: Stomach is nondistended. Lack of oral contrast limits evaluation for bowel pathology. Bowel loops appear within normal limits of caliber without evidence of obstruction. Diverticulosis without CT evidence of acute diverticulitis. Mild wall thickening throughout the undistended colon without associated inflammatory changes evident ; colitis cannot be excluded (i.e. infectious, inflammatory, ischemic). Correlate clinically. APPENDIX: The appendix appears within normal limits of caliber. No secondary signs of acute appendicitis. PERITONEUM: No significant free fluid. No definite free air. LYMPH NODES: No bulky adenopathy identified. BLADDER: Unremarkable. REPRODUCTIVE: The prostate gland measures approximately 3.7 x 4.2 cm. BONES: No acute osseous abnormality is detected. OTHER FINDINGS: Bilateral gynecomastia. IMPRESSION: Diverticulosis without CT evidence of acute diverticulitis. Mild wall thickening throughout the undistended colon without associated inflammatory changes evident ; colitis cannot be excluded (i.e. infectious, inflammatory, ischemic). Correlate clinically. (Zuleyka Johnson) - Medication Orders Current Medication Orders: Discontinued Medications Famotidine (Pepcid) 20 mg IVP STAT STA Stop: 04/10/17 14:05 Last Admin: 04/10/17 14:44 Dose: 20 mg Folic Acid 1 mg/ Thiamine HCl 100 mg/ Multivitamins/Vitamin C 10 ml/ Magnesium Sulfate 2 gm/ Dextrose/Sodium Chloride 1,015.2 mls @ 500 mls/hr IV ONCE ONE Stop: 04/10/17 16:06 Last Admin: 04/10/17 15:05 Dose: 500 mls/hr Sodium Chloride (Sodium Chloride 0.9%) 1,000 mls @ 1,000 mls/hr IV .Q1H STA Stop: 04/10/17 15:03 Last Admin: 04/10/17 14:43 Dose: 1,000 mls/hr Sodium Chloride (Sodium Chloride 0.9%) 1,000 mls @ 500 mls/hr IV .Q2H STA Stop: 04/10/17 19:19 Last Admin: 04/10/17 17:47 Dose: 500 mls/hr Iohexol (Omnipaque 350 100 Ml) Confirm Administered Dose 350 mg .ROUTE .STK-MED ONE Stop: 04/10/17 18:11 Ketorolac Tromethamine (Toradol) 30 mg IVP STAT STA Stop: 04/10/17 14:26 Last Admin: 04/10/17 14:53 Dose: 30 mg Re-Assess: [place] Pain Assessment Document 04/10/17 15:53 HI (Rec: 04/10/17 17:48 [place] [facility] [id number] Pain Reassessment Is this a pain reassessment? Yes Sleep Is patient sleeping during reassessment? No Presence of Pain Presence of Pain Yes Location Pain Location Body Site Abdomen Lorazepam (Ativan) 2 mg IVP ONCE ONE PRN Reason: Protocol Stop: 04/10/17 14:26 Last Admin: 04/10/17 14:53 Dose: 2 mg Morphine Sulfate (Morphine) 2 mg IVP ONCE STA Stop: 04/10/17 17:21 Last Admin: 04/10/17 17:47 Dose: 2 mg Re-Assess: [place] Pain Assessment Document 04/10/17 18:47 HI (Rec: 04/10/17 19:03 HI [facility] [id number]) Pain Reassessment Is this a pain reassessment? Yes Sleep Is patient sleeping during reassessment? Yes Ondansetron HCl (Zofran Inj) 4 mg IVP STAT STA Stop: 04/10/17 14:05 Last Admin: 04/10/17 14:43 Dose: 4 mg ED OBSERVATION Date of observation admission: 04/10/17 Time of observation admission: 14:05 <Zuleyka Johnson - Last Filed: 04/10/17 20:19> Discharge: Yes <Gwen Betancourt - Last Filed: 04/10/17 20:48> - Observation admission statement Patient is being placed in observation because:: vomiting (Zuleyka Johnson) - Goals of Observation Goals of observation are:: improve pt symptoms recheck blood work IV hydration (Zuleyka Johnson) - Progress Note Progress Note: 04/10/17 15:00 Pt receiving medications and IV fluids. Abd nontender. 04/10/17 16:00 Pt GI symptoms improving but complaining of generalized weaknes. CDK 1100. Continuing IV hydration and will recheck labs 04/10/17 18:[address] Results pending. 04/10/17 18:32 Pain much improved. No vomiting in ED. CT read pending. Repeat labs pending completion of IVF. 04/10/17 20:12 Pt denies pain, nausea, vomiting or diarrhea. reports general fatigue. CPK improved w/ fluids. Discussed plan to discharge, pt agreeable. (Zuleyka Johnson) 04/10/17 16:30 Patient complaining of recurrence of diarrhea with abdominal pain. Patient has a history of colitis. Will obtain CT scan. 04/10/17 17:20 Patient continuing to complaining of abd pain. Will give additional IVF and analgesia. 04/10/17 19:09 IVF are complete. Will repeat CPK. 04/10/17 20:39 Patient's repeat CPK is trending down. He says his abdominal pain has resolved and feels much better. He has librium at home and says he will take them. Vitals are unremarkable. Will d/c. (Gwen Betancourt) <Zuleyka Johnson - Last Filed: 04/10/17 20:19> - Scribe Statement The provider has reviewed the documentation as recorded by the Scribe <Gwen Betancourt - Last Filed: 04/10/17 20:48> - Scribe Statement Korin Vasquez Provider Scribe Attestation: All medical record entries made by the Scribe were at my direction and personally dictated by me. I have reviewed the chart and agree that the record accurately reflects my personal performance of the history, physical exam, medical decision making, and the department course for this patient. I have also personally directed, reviewed, and agree with the discharge instructions and disposition. (Gwen Betancourt) Disposition/Present on Arrival - Present on Arrival Any Indicators Present on Arrival: No History of DVT/PE: No History of Uncontrolled Diabetes: No Urinary Catheter: No History of Decub. Ulcer: No History Surgical Site Infection Following: None - Disposition Have Diagnosis and Disposition been Completed?: Yes Disposition Time: 20:15 Patient Plan: Discharge <Zuleyka Johnson - Last Filed: 04/10/17 20:19> <Gwen Betancourt - Last Filed: 04/10/17 20:48> - Disposition Diagnosis: Abdominal pain, Alcohol withdrawal, Vomiting, Rhabdomyolysis Disposition: HOME/ ROUTINE Patient Problems: Current Active Problems Problem Status Onset Abdominal pain Acute Alcohol withdrawal Acute Rhabdomyolysis Acute Vomiting Acute Condition: GOOD
[2017-04-10 14:55] LABS: URINE BILIRUBIN NEGATIVE (NEGATIVE); URINE BLOOD NEGATIVE (NEGATIVE); URINE GLUCOSE (UA) NEGATIVE (NEGATIVE); URINE KETONE NEGATIVE (NEGATIVE); URINE LEUKOCYTE ESTERASE NEGATIVE Leu/uL (NEGATIVE); URINE PROTEIN NEGATIVE mg/dL (<30 mg/dL); URINE UROBILINOGEN 0.2 E.U./dL (<1 E.U./dL)
[2017-04-10 14:56] LABS: BASO # 0.02 K/mm3 (0.0-2.0); BASO % 0.7 % (0.0-3.0); EOS % 0.7 % (1.5-5.0); GRAN # 1.46 (1.4-6.5); GRAN % 50.7 % (50.0-68.0); HEMATOCRIT 36.9 % (42.0-52.0); LYMPH % 35.1 % (22.0-35.0); MEAN CELL VOLUME 88.5 fL (80.0-105.0); MEAN CORPUSCULAR HEMOGLOBIN 29.3 pg (25.0-35.0); MEAN CORPUSCULAR HGB CONC 33.1 g/dl (31.0-37.0); MEAN PLATELET VOLUME 11.2 fl (7.0-11.0); MONO # 0.4 (0.1-0.6); MONO % 12.8 % (1.0-6.0); PLATELET COUNT 129 10^3/uL (120.0-450.0); RED CELL DISTRIBUTION WIDTH 15.4 % (11.5-14.5)
[2017-04-10 14:59] LABS: ADD MANUAL DIFF? NO; WHITE BLOOD COUNT 2.9 10^3/ul (4.5-11.0)
[2017-04-10 15:05] LABS: ALB/GLOB RATIO 1.5 (1.1-1.8); ALKALINE PHOSPHATASE 54 U/L (38-133); ALT/SGPT 70 U/L (7-56); AST/SGOT 108 U/L (15-59); BILIRUBIN,DIRECT 0.3 mg/dL (0.0-0.4); BILIRUBIN,TOTAL 0.4 mg/dL (0.2-1.3); BLOOD UREA NITROGEN 18 mg/dL (7-21); CALCIUM 9.5 mg/dL (8.4-10.5); CARBON DIOXIDE 24 mmol/L (21-33); CHLORIDE 103 mmol/L (98-107); GFR AFRICAN-AMERICAN > 60; GLUCOSE,RANDOM 96 mg/dL (70-110); LIPASE 98 U/L (23-300); MAGNESIUM 1.5 mg/dL (1.7-2.2); POTASSIUM 3.7 mmol/L (3.6-5.0); SODIUM 139 mmol/L (132-148); TOTAL PROTEIN 7.3 g/dL (5.8-8.3)
[2017-04-10 15:06] LABS: URINE APPEARANCE CLEAR (CLEAR); URINE COLOR YELLOW (YELLOW)
[2017-04-10 15:06] LABS: INR 1.1 (0.93-1.08); PARTIAL THROMBOPLASTIN TIME 27.4 Seconds (23.7-30.8)
[2017-04-10 15:22] LABS: TROPONIN I < 0.01 ng/mL
[2017-04-10] MEDS ORDERED: Morphine 2 mg/ml ISec IVP STA (17:20)
[2017-04-10] MEDS ORDERED: Iohexol 350 MG/100 ML VIAL ONE (18:10)
--- NOTE | 2017-04-10 18:47 | CT ---
PROCEDURE: CT Abdomen and Pelvis with contrast HISTORY: LLQ abd pain, r/o colitis COMPARISON: CT abdomen and pelvis with IV contrast performed 03/14/17 TECHNIQUE: Contrast dose: 96 cc Omnipaque 350 Radiation dose: Total exam DLP = 332.18 mGy-cm. This CT exam was performed using one or more of the following dose reduction techniques: Automated exposure control, adjustment of the mA and/or kV according to patient size, and/or use of iterative reconstruction technique. FINDINGS: LOWER THORAX: No visible consolidation, pleural effusion, or pneumothorax. LIVER: Hypoattenuation of the liver consistent with hepatic steatosis. GALLBLADDER AND BILE DUCTS: Unremarkable. PANCREAS: Unremarkable. SPLEEN: Unremarkable. ADRENALS: Unremarkable. KIDNEYS AND URETERS: The kidneys enhance symmetrically. No hydronephrosis or obstructing calculus identified. VASCULATURE: No aortic aneurysm. BOWEL: Stomach is nondistended. Lack of oral contrast limits evaluation for bowel pathology. Bowel loops appear within normal limits of caliber without evidence of obstruction. Diverticulosis without CT evidence of acute diverticulitis. Mild wall thickening throughout the undistended colon without associated inflammatory changes evident ; colitis cannot be excluded (i.e. infectious, inflammatory, ischemic). Correlate clinically. APPENDIX: The appendix appears within normal limits of caliber. No secondary signs of acute appendicitis. PERITONEUM: No significant free fluid. No definite free air. LYMPH NODES: No bulky adenopathy identified. BLADDER: Unremarkable. REPRODUCTIVE: The prostate gland measures approximately 3.7 x 4.2 cm. BONES: No acute osseous abnormality is detected. OTHER FINDINGS: Bilateral gynecomastia. IMPRESSION: Diverticulosis without CT evidence of acute diverticulitis. Mild wall thickening throughout the undistended colon without associated inflammatory changes evident ; colitis cannot be excluded (i.e. infectious, inflammatory, ischemic). Correlate clinically. Additional findings as above.
[2017-04-10 21:03] VITALS: BP 132/80; PULSE 69; RESP 16
--- NOTE | 2017-04-11 23:28 | CARD ---
APPROVED REPORT EKG Measurement Heart [id number] CT [id number] <Conclusion> Normal sinus rhythm Minimal voltage criteria for LVH, may be normal variant Borderline ECG
== END 2017-04-10 20:48 | disposition home or self-care (01) ==
LOC: ED 13:54 → EROBSV 14:05
PROVIDERS: ADMIT Emergency Medicine; ATTEND Emergency Medicine
DX: F10.239 Alcohol dependence with withdrawal, unspecified (principal); Y90.0 Blood alcohol level of less than 20 mg/100 ml; M62.82 Rhabdomyolysis; R10.9 Unspecified abdominal pain; R11.10 Vomiting, unspecified; F17.200 Nicotine dependence, unspecified, uncomplicated
CPT/HCPCS: 74177; 80053; 80320; 80324; 80345; 80346; 80349; 80353; 80358; 80361; 81003; 82248; 82550; 82553; 83615; 83690; 83735; 83992; 84484; 85025; 85610; 85730; 93005; 96374; 96375; 99284; G0378; J1885; J2060; J2270; J2405; J3411; J3475; J7040; J7042; Q9967

== ENCOUNTER 2017-04-17 16:32 | Emergency (ER) | payer MEDICAID ==
[2017-04-17 16:33] VITALS: BMI 20.2
[2017-04-17 16:50] VITALS: BP 143/96; PULSE 75; RESP 18; TEMP 98.2; O2SAT 100
[2017-04-17] MEDS ORDERED: Sodium Chloride 0.9% 1,000 ML IV STA (16:58)
--- NOTE | 2017-04-17 17:01 | ED PDOC ---
Arrival/HPI - General Chief Complaint: Anxiety Time Seen by Provider: 04/17/17 16:35 - History of Present Illness Narrative History of Present Illness (Text): 04/17/17 16:59 41 yo male, hx of etoh abuse presents with "anxiety", vomiting and palpitations pt well know to er. reports vomiting. pt states last drink 100 last night. no fevers, no cp, c/o of palpitation, no urianry changes, no other complaints. 04/17/17 17:53 Past Medical History - Infectious Disease Hx of Infectious Diseases: None - Tetanus Immunization Tetanus Immunization: Unknown - Reproductive Currently : No - Past Medical History Past Medical History: No Previous - Cardiac Hx Hypertension: Yes - Pulmonary Hx Respiratory Disorders: No Hx Chronic Obstructive Pulmonary Disease (COPD): No - Neurological Hx Neurological Disorder: Yes Hx Dizziness: Yes Other/Comment: neuropathy - HEENT Hx HEENT Disorder: No Hx Blind: No Hx Cataracts: No Hx Deafness: No Hx Difficulty Chewing: No Hx Epistaxis: No Hx Glaucoma: No Hx Macular Degeneration: No - Renal Hx Renal Disorder: No Hx Renal Failure: No - Endocrine/Metabolic Hx Endocrine Disorders: No Hx Diabetes Mellitus Type 1: No Hx Diabetes Mellitus Type 2: No Hx Hypothyroidism: No - Hematological/Oncological Hx Blood Disorders: No - Integumentary Hx Dermatological Disorder: No - Musculoskeletal/Rheumatological Hx Falls: No - Gastrointestinal Hx Gastrointestinal Disorders: Yes Hx Gastroesophageal Reflux: Yes - Genitourinary/Gynecological Hx Genitourinary Disorders: No - Psychiatric Hx Psychophysiologic Disorder: Yes Hx Anxiety: Yes Hx Substance Use: No (denies) - Past Surgical History Past Surgical History: Non-Contributing - Surgical History Hx Musculoskeletal Surgery: Yes (RIGHT FOOT SXrod and screws) Hx Orthopedic Surgery: Yes - Anesthesia Hx Anesthesia: Yes Hx Anesthesia Reactions: No Hx Malignant Hyperthermia: No - Suicidal Assessment Feels Threatened In Home Enviroment: No Family/Social History Family/Social History: Unknown Family HX Smoking Status: Current Some Days Smoker Hx Alcohol Use: Yes (DRINKS P[employer] VODKA AND BEER DAILY) Frequency of alcohol use: Daily Hx Substance Use: No (denies) Substance used: marijuana & coaine Hx Substance Use Treatment: No Allergies/Home Meds Allergies/Adverse Reactions: Allergies No Known Allergies Allergy (Verified 04/17/17 16:38) Home Medications: Home Meds Medication Instructions Recorded Confirmed Naproxen [Naprosyn] 500 mg PO BID PRN 03/15/17 04/17/17 Physical Exam Vital Signs Temp Pulse Resp BP Pulse Ox 04/17/17 16:48 98.2 F 75 18 143/96 H 100 Temperature: Afebrile Blood Pressure: Normal Pulse: Regular Respiratory Rate: Normal Appearance: Positive for: Well-Appearing, Non-Toxic, Comfortable Pain Distress: None Mental Status: Positive for: Alert and Oriented X 3 - Systems Exam Head: Present: Atraumatic, Normocephalic Pupils: Present: PERRL Extroacular Muscles: Present: EOMI Conjunctiva: Present: Normal Mouth: Present: Moist Mucous Membranes Neck: Present: Normal Range of Motion Respiratory/Chest: Present: Clear to Auscultation, Good Air Exchange. No: Respiratory Distress, Accessory Muscle Use Cardiovascular: Present: Regular Rate and Rhythm, Normal S1, S2. No: Murmurs Abdomen: Present: Normal Bowel Sounds. No: Tenderness, Distention, Peritoneal Signs Back: Present: Normal Inspection Upper Extremity: Present: Normal Inspection. No: Cyanosis, Edema Lower Extremity: Present: Normal Inspection. No: Edema Neurological: Present: GCS=15, CN II-XII Intact, Speech Normal, Motor Func Grossly Intact, Normal Cerebellar Funct, Other (no tremors) Skin: Present: Warm, Dry, Normal Color. No: Rashes Psychiatric: Present: Alert, Oriented x 3, Normal Insight, Normal Concentration Medical Decision Making ED Course and Treatment: 04/17/17 17:00 pt well known to er- r/o cardiac, gastritis, pancreatitis nsr ekg [address] t wave chagnes normal interval.s 04/17/17 17:53 pt reassessed: in bed in nad, watching tv. not tachycardic, etoh on board, no tremors. no e/o of withdrawal. not tachycardic. 04/20/17 07:08 - Lab Interpretations Lab Results: 04/17/17 16:53 04/17/17 16:53 Lab Results 04/17/17 17:00: Urine Color Yellow, Urine Appearance Clear, Urine pH 6.0, Ur Specific [place] 1.020, Urine Protein Negative, Urine Glucose (UA) Negative, Urine Ketones Negative, Urine Blood Negative, Urine Nitrate Negative, Urine Bilirubin Negative, Urine Urobilinogen 0.2, Ur Leukocyte Esterase Negative 04/17/17 16:53: PT 11.9 H, INR 1.10 H, APTT 26.5 04/17/17 16:53: WBC 1.9 L* D, RBC 4.03, Hgb 11.8 L, Hct 35.4 L, MCV 87.8, MCH 29.3, MCHC 33.3, RDW 15.0 H, Plt Count 181, MPV 10.5, Gran % 33.2 L, Lymph % ( Auto) 51.3 H, [place] % (Auto) 13.4 H, Eos % (Auto) 0.5 L, Baso % (Auto) 1.6, Gran # 0.62 L, Lymph # 1.0 L, [place] # 0.3, Eos # 0.0, Baso # 0.03 04/17/17 16:53: Sodium 137, Potassium 4.0, Chloride 102, Carbon Dioxide 22, Anion Gap 17, BUN 12, Creatinine 0.8, Est GFR ( Amer) > 60, Est GFR (Non- Af Amer) > 60, Random Glucose 83, Calcium 9.2, Magnesium 1.3 L, Total Bilirubin 0.6, AST 149 H, ALT 97 H, Alkaline Phosphatase 52, Lactate Dehydrogenase 992 H, Total Creatine Kinase 538 H, CK-MB (CK-2) 2.4, CK-MB (CK-2) % 0.4 L, Troponin I 0.02 D, Total Protein 7.3, Albumin 4.2, Globulin 3.0, Albumin/Globulin Ratio 1.4, Lipase 129 04/17/17 16:53: Alcohol, Quantitative 33 H - RAD Interpretation Radiology Orders: 04/17/17 16:57 CHEST PORTABLE [RAD] Stat - Medication Orders Current Medication Orders: Discontinued Medications Famotidine (Pepcid) 20 mg IVP STAT STA Stop: 04/17/17 17:01 Last Admin: 04/17/17 17:11 Dose: 20 mg Sodium Chloride (Sodium Chloride 0.9%) 1,000 mls @ 999 mls/hr IV .Q1H1M STA Stop: 04/17/17 17:58 Last Admin: 04/17/17 17:10 Dose: 999 mls/hr Ondansetron HCl (Zofran Inj) 4 mg IVP STAT STA Stop: 04/17/17 16:59 Last Admin: 04/17/17 17:11 Dose: 4 mg Disposition/Present on Arrival - Present on Arrival Any Indicators Present on Arrival: No History of DVT/PE: No History of Uncontrolled Diabetes: No Urinary Catheter: No History of Decub. Ulcer: No History Surgical Site Infection Following: None - Disposition Have Diagnosis and Disposition been Completed?: Yes Diagnosis: Palpitations Disposition: HOME/ ROUTINE Disposition Time: 06:00 Condition: STABLE Discharge Instructions (ExitCare): Palpitations (ED), Acute Abdominal Pain (ED) Referrals: Griselda Heard MD [Primary Care Provider] - Follow up with primary
[2017-04-17 17:05] LABS: ADD MANUAL DIFF? NO
--- NOTE | 2017-04-17 17:15 | RAD ---
HISTORY: abd pain COMPARISON: Chest x-ray performed 04/02/17 TECHNIQUE: Chest, one view. FINDINGS: LUNGS: No focal consolidation. Please note that chest x-ray has limited sensitivity for the detection of pulmonary masses. PLEURA: No significant pleural effusion identified. No definite pneumothorax . CARDIOVASCULAR: Heart size appears within normal limits. OSSEOUS STRUCTURES: No acute osseous abnormality identified. VISUALIZED UPPER ABDOMEN: Unremarkable. OTHER FINDINGS: None. IMPRESSION: No focal consolidation, significant pleural effusion, or definite pneumothorax identified.
[2017-04-17 17:16] LABS: BASO # 0.03 K/mm3 (0.0-2.0); BASO % 1.6 % (0.0-3.0); EOS % 0.5 % (1.5-5.0); GRAN # 0.62 (1.4-6.5); GRAN % 33.2 % (50.0-68.0); HEMATOCRIT 35.4 % (42.0-52.0); LYMPH % 51.3 % (22.0-35.0); MEAN CELL VOLUME 87.8 fL (80.0-105.0); MEAN CORPUSCULAR HEMOGLOBIN 29.3 pg (25.0-35.0); MEAN CORPUSCULAR HGB CONC 33.3 g/dl (31.0-37.0); MEAN PLATELET VOLUME 10.5 fl (7.0-11.0); MONO # 0.3 (0.1-0.6); MONO % 13.4 % (1.0-6.0); PLATELET COUNT 181 10^3/uL (120.0-450.0)
[2017-04-17 17:23] LABS: INR 1.1 (0.93-1.08); PARTIAL THROMBOPLASTIN TIME 26.5 Seconds (23.7-30.8)
[2017-04-17 17:24] LABS: ALB/GLOB RATIO 1.4 (1.1-1.8); ALKALINE PHOSPHATASE 52 U/L (38-133); ALT/SGPT 97 U/L (7-56); AST/SGOT 149 U/L (15-59); BILIRUBIN,TOTAL 0.6 mg/dL (0.2-1.3); BLOOD UREA NITROGEN 12 mg/dL (7-21); CALCIUM 9.2 mg/dL (8.4-10.5); CARBON DIOXIDE 22 mmol/L (21-33); CHLORIDE 102 mmol/L (98-107); GFR AFRICAN-AMERICAN > 60; GLUCOSE,RANDOM 83 mg/dL (70-110); LIPASE 129 U/L (23-300); MAGNESIUM 1.3 mg/dL (1.7-2.2); SODIUM 137 mmol/L (132-148); TOTAL PROTEIN 7.3 g/dL (5.8-8.3)
[2017-04-17 17:25] LABS: URINE BILIRUBIN NEGATIVE (NEGATIVE); URINE BLOOD NEGATIVE (NEGATIVE); URINE GLUCOSE (UA) NEGATIVE (NEGATIVE); URINE KETONE NEGATIVE (NEGATIVE); URINE LEUKOCYTE ESTERASE NEGATIVE Leu/uL (NEGATIVE); URINE PROTEIN NEGATIVE mg/dL (<30 mg/dL); URINE UROBILINOGEN 0.2 E.U./dL (<1 E.U./dL)
[2017-04-17 17:26] LABS: WHITE BLOOD COUNT 1.9 10^3/ul (4.5-11.0)
[2017-04-17 17:29] LABS: URINE APPEARANCE CLEAR (CLEAR); URINE COLOR YELLOW (YELLOW)
[2017-04-17 17:35] LABS: TROPONIN I 0.02 ng/mL
--- NOTE | 2017-04-19 00:01 | CARD ---
APPROVED REPORT EKG Measurement Heart [id number] <Conclusion> Normal sinus rhythm Moderate voltage criteria for LVH, may be normal variant Borderline ECG
== END 2017-04-17 18:03 | disposition home or self-care (01) ==
LOC: ED 16:32
DX: R00.2 Palpitations (principal); I10 Essential (primary) hypertension; Z72.0 Tobacco use
CPT/HCPCS: 71010; 80053; 80320; 81003; 82550; 82553; 83615; 83690; 83735; 84484; 85025; 85610; 85730; 96374; 96375; 99283; J2405; J7040

== ENCOUNTER 2017-05-01 08:05 | Emergency (ER) | payer MEDICAID ==
[2017-05-01 08:09] VITALS: BMI 20.9
[2017-05-01 08:17] VITALS: RESP 18; O2SAT 97
--- NOTE | 2017-05-01 08:43 | ED PDOC ---
Arrival/HPI - General Historian: Patient - History of Present Illness Time/Duration: 1 hour Symptom Onset: Sudden Symptom Course: Unchanged Quality: Stabbing <Elpidio Castillo - Last Filed: 05/01/17 10:07> <Sonny Tejeda - Last Filed: 05/01/17 10:49> - General Chief Complaint: Abdominal Pain Time Seen by Provider: 05/01/17 08:06 - History of Present Illness Narrative History of Present Illness (Text): 05/01/17 08:32 42 year old with past medical history of hypertension, anxiety , depression, GERD, and alcohol abuse [place] [facility] [place] with left lower abdominal and vomiting. Patient reports his symptoms all started at 7:30 this morning. Patient had BBQ with his family last night, where He admits to alcohol consumption including beers and hard liquors. He does not remember how many he had. He vomited 3 times in total, they were non bloody and non bilious. Patient reports he ran out of Librium 1 week ago. Patient states the abdominal pain is similar to the pain he had in the past. Patient also complains of hand tremors and shortness of breath since the onset of the symptoms. He denies having auditory or visual hallucinations, headache, fever, chest pain, diarrhea, recent travels or sick contacts. (Elpidio Castillo) Past Medical History - Provider Review Nursing Documentation Reviewed: Yes - Infectious Disease Hx of Infectious Diseases: None - Tetanus Immunization Tetanus Immunization: Unknown - Reproductive Currently : No - Past Medical History Past Medical History: No Previous - Cardiac Hx Hypertension: Yes - Pulmonary Hx Respiratory Disorders: No Hx Chronic Obstructive Pulmonary Disease (COPD): No - Neurological Hx Neurological Disorder: Yes Hx Dizziness: Yes Other/Comment: neuropathy - HEENT Hx HEENT Disorder: No Hx Blind: No Hx Cataracts: No Hx Deafness: No Hx Difficulty Chewing: No Hx Epistaxis: No Hx Glaucoma: No Hx Macular Degeneration: No - Renal Hx Renal Disorder: No Hx Renal Failure: No - Endocrine/Metabolic Hx Endocrine Disorders: No - Hematological/Oncological Hx Blood Disorders: No - Integumentary Hx Dermatological Disorder: No - Musculoskeletal/Rheumatological Hx Falls: No - Gastrointestinal Hx Gastrointestinal Disorders: Yes Hx Gastroesophageal Reflux: Yes - Genitourinary/Gynecological Hx Genitourinary Disorders: No - Psychiatric Hx Psychophysiologic Disorder: Yes (ETOH, substance abuse,SMOKES CIGARETTES) Hx Substance Use: No (denies) - Past Surgical History Past Surgical History: Non-Contributing - Surgical History Hx Musculoskeletal Surgery: Yes (RIGHT FOOT SXrod and screws) Hx Orthopedic Surgery: Yes - Anesthesia Hx Anesthesia: Yes Hx Anesthesia Reactions: No Hx Malignant Hyperthermia: No - Suicidal Assessment Feels Threatened In Home Enviroment: No <Elpidio Castillo - Last Filed: 05/01/17 10:07> Family/Social History - Physician Review Nursing Documentation Reviewed: Yes Family/Social History: Unknown Family HX Smoking Status: Current Some Days Smoker Hx Alcohol Use: Yes (DRINKS PINT OF VODKA AND BEER DAILY) Hx Substance Use: No (denies) Substance used: marijuana & coaine Hx Substance Use Treatment: No <JonathanFerniesriram - Last Filed: 05/01/17 10:07> Allergies/Home Meds <Elpidio Castillo - Last Filed: 05/01/17 10:07> <Sonny Tejeda - Last Filed: 05/01/17 10:49> Allergies/Adverse Reactions: Allergies No Known Allergies Allergy (Verified 04/17/17 16:38) Review of Systems - Physician Review All systems were reviewed & negative as marked: Yes - Review of Systems Constitutional: Normal. absent: Fevers, Night Sweats Eyes: Normal. absent: Photophobia ENT: Normal Respiratory: SOB. absent: Wheezing Cardiovascular: Normal. absent: Chest Pain, Palpitations, Syncope Gastrointestinal: Abdominal Pain, Nausea, Vomiting. absent: Diarrhea Musculoskeletal: Normal. absent: Back Pain, Neck Pain Skin: Normal. absent: Rash, Pruritis Neurological: Other (hand tremors). absent: Headache, Speech Changes Endocrine: Normal. absent: Diaphoresis Hemo/Lymphatic: Normal Psychiatric: Normal. absent: Suicidal Ideation <Elpidio Castillo - Last Filed: 05/01/17 10:07> Physical Exam Vital Signs Reviewed: Yes Temperature: Afebrile Blood Pressure: Hypertensive Pulse: Regular Respiratory Rate: Normal Appearance: Positive for: Uncomfortable Pain Distress: Moderate Mental Status: Positive for: Alert and Oriented X 3 - Systems Exam Head: Present: Atraumatic, Normocephalic Pupils: Present: PERRL Extroacular Muscles: Present: EOMI Conjunctiva: Present: Normal Mouth: Present: Moist Mucous Membranes Neck: Present: Normal Range of Motion Respiratory/Chest: Present: Clear to Auscultation, Good Air Exchange. No: Respiratory Distress, Accessory Muscle Use Cardiovascular: Present: Regular Rate and Rhythm, Normal S1, S2. No: Murmurs Abdomen: Present: Tenderness (diffused tenderness, more on left lower quadrant) . No: Distention, Hernias Upper Extremity: Present: Normal Inspection, NORMAL PULSES. No: Cyanosis, Edema Lower Extremity: Present: Normal Inspection, NORMAL PULSES. No: Edema Neurological: Present: GCS=15, CN II-XII Intact, Speech Normal, Other ( Bilateral upper extremity tremors) Skin: Present: Warm, Dry, Normal Color. No: Rashes Psychiatric: Present: Alert, Oriented x 3, Normal Insight, Normal Concentration <Elpidio Castillo - Last Filed: 05/01/17 10:07> Medical Decision Making Re-evaluation Time: 09:55 Reassessment Condition: Improved - Lab Interpretations I have reviewed the lab results: Yes <Elpidio Castillo - Last Filed: 05/01/17 10:07> - Lab Interpretations I have reviewed the lab results: Yes <Sonny Tejeda - Last Filed: 05/01/17 10:49> ED Course and Treatment: 05/01/17 09:08 -EKG -Banana bag -Serum alcohol -Ativan -CT abdomen -Zofran DDx: alcohol withdrawal symptoms, pancreatitis, diverticulitis Last ED visit: 04/17/17 for anxiety 05/01/17 9:00 Potassium 3.3, LFT slightly elevated, normal lipase. 05/01/17 9:40 Patient has no more vomiting episodes. Vitals are stable. Patient has no more abdominal pain, resting comfortably (Elpidio Castillo) Patient seen and examined with resident. Came up with treatment and disposition plan with resident. The patient is a 42 year old male, who is well known to this emergency department staff. He reports the the emergency department complaining of left lower abdominal pain associated with nausea and vomiting. Pain is identical to prior episodes. Additional details as noted by the resident. On physical examination the patient has diffuse abdominal tenderness with palpation and is tremulous. EKG, Abdomen/Pelvis CT and lab work ordered to rule out ACS vs. alcohol withdrawal vs. pancreatitis vs. diverticulitis. Patient given Ativan, Zofran and a Banana bag for symptomatic control. EKG shows NSR at [address] elevations. Abdomen/Pelvis CT shows: The appendix is less clearly delineated on this exam. No pericecal inflammatory changes noted. No gross diverticulitis. Grossly the bowel loops appear unremarkable. No obstruction or free air seen. Patient potassium was low, it was replaced. On re-evaluation, the patient feels better and is in no acute distress. Patient able to tolerate PO without difficulty and abdomen is soft and non tender. Results and plan were discussed with the patient, who expresses understanding. Patient in agreement with plan to discharged home. Patient is stable for discharge. Patient was instructed to follow up with physician/clinic in 1-2 days or return if symptoms worsen or new concerning symptoms arise. (Sonny Tejeda ) - Lab Interpretations Lab Results: 05/01/17 08:20 05/01/17 08:20 Lab Results 05/01/17 08:20: WBC 3.5 L D, RBC 4.00, Hgb 11.7 L, Hct 35.4 L, MCV 88.5, MCH 29.3, MCHC 33.1, RDW 15.5 H, Plt Count 227, MPV 10.5, Neutrophils % (Manual) 32 L, Lymphocytes % (Manual) 54 H, Monocytes % (Manual) 11 H, Eosinophils % (Manual ) 1, Basophils % (Manual) 2 H, Platelet Evaluation Normal 05/01/17 08:20: Sodium 142, Potassium 3.3 L, Chloride 102, Carbon Dioxide 23, Anion Gap 20, BUN 8, Creatinine 0.8, Est GFR ( Amer) > 60, Est GFR (Non- Af Amer) > 60, Random Glucose 79, Calcium 9.1, Total Bilirubin 0.5, AST 94 H, ALT 68 H, Alkaline Phosphatase 63, Total Protein 7.8, Albumin 4.7, Globulin 3.1 , Albumin/Globulin Ratio 1.5, Lipase 85 05/01/17 08:20: Alcohol, Quantitative 155 H - RAD Interpretation Narrative RAD Interpretations (Text): 05/01/17 10:07 PROCEDURE: CT Abdomen and Pelvis with contrast HISTORY: abdominal pain COMPARISON: 04/10/2017 TECHNIQUE: Contrast dose: 100 mL Omnipaque 350 Radiation dose: Total exam DLP = 309 mGy-cm. This CT exam was performed using one or more of the following dose reduction techniques: Automated exposure control, adjustment of the mA and/or kV according to patient size, and/or use of iterative reconstruction technique. FINDINGS: LOWER THORAX: Unremarkable. LIVER: A diffuse fatty infiltration of the liver suspect. No gross lesion or ductal dilatation. GALLBLADDER AND BILE DUCTS: Unremarkable. PANCREAS: Unremarkable. No gross lesion or ductal dilatation. SPLEEN: Unremarkable. ADRENALS: Unremarkable. No mass. KIDNEYS AND URETERS: Probable small 4 mm left upper renal pole intra cortical cyst No hydronephrosis. No suspicious-appearing solid mass. VASCULATURE: Unremarkable. No aortic aneurysm. BOWEL: Probable few diverticuli. No diverticulitis suggested. No obstruction. No gross mural thickening. The terminal ileum appears contiguous with the cecum - previously this was by a a fat planes. No gross keny cecal inflammatory changes noted APPENDIX: The appendix is less well seen on the current exam PERITONEUM: Unremarkable. No free fluid. No free air. LYMPH NODES: Unremarkable. No enlarged lymph nodes. BLADDER: Unremarkable. REPRODUCTIVE: Unremarkable. BONES: Anterior superior bilateral sacroiliac sclerotic arthrosis. L4 anterior spondylosis. No fracture or lytic lesion appreciated OTHER FINDINGS: None. IMPRESSION: The appendix is less clearly delineated on this exam. No pericecal inflammatory changes noted. No gross diverticulitis. Grossly the bowel loops appear unremarkable. No obstruction or free air seen (Elpidio Castillo) Radiology Orders: 05/01/17 08:28 ABDOMEN & PELVIS [ABD & PELVIS IV CONTRAST ONLY] [CT] Stat - EKG Interpretation EKG Interpretation (Text): 05/01/17 10:10 NSR @86bpm, no ST elevations. Read by me. (Elpidio Castillo) - Medication Orders Current Medication Orders: Multivitamins/Vitamin C 10 ml/Thiamine HCl 100 mg/ Folic Acid 1 mg/ Sodium Chloride 1,011.2 mls @ 100 mls/hr IV .Q10H7M ONE Stop: 05/01/17 18:32 Last Admin: 05/01/17 08:59 Dose: 100 mls/hr Discontinued Medications Iohexol (Omnipaque 350 100 Ml) Confirm Administered Dose 350 mg .ROUTE .STK-MED ONE Stop: 05/01/17 09:10 Ketorolac Tromethamine (Toradol) 30 mg IVP STAT STA Stop: 05/01/17 08:46 Last Admin: 05/01/17 08:52 Dose: 30 mg Lorazepam (Ativan) 1 mg IVP ONCE ONE PRN Reason: Protocol Stop: 05/01/17 08:30 Last Admin: 05/01/17 08:48 Dose: Ondansetron HCl (Zofran Inj) 4 mg IVP STAT STA Stop: 05/01/17 08:31 Last Admin: 05/01/17 08:48 Dose: 4 mg Potassium Chloride (K-Dur 20 Meq Er Tab) 20 meq PO STAT STA Stop: 05/01/17 09:19 Last Admin: 05/01/17 09:37 Dose: 20 meq - PA / PROFESSOR OF BUSINESS ADMINISTRATION / Resident Statement / has reviewed & agrees with the documentation as recorded. MD/ has examined the patient and agrees with the treatment plan. <Elpidio Castillo - Last Filed: 05/01/17 10:07> - PA / PROFESSOR OF BUSINESS ADMINISTRATION / Resident Statement / has reviewed & agrees with the documentation as recorded. / has examined the patient and agrees with the treatment plan. - Scribe Statement The provider has reviewed the documentation as recorded by the Scribe <Sonny Tejeda - Last Filed: 05/01/17 10:49> - Scribe Statement Nathaly Méndez Provider Scribe Attestation: All medical record entries made by the Scribe were at my direction and personally dictated by me. I have reviewed the chart and agree that the record accurately reflects my personal performance of the history, physical exam, medical decision making, and the department course for this patient. I have also personally directed, reviewed, and agree with the discharge instructions and disposition. (Sonny Tejeda) Disposition/Present on Arrival - Present on Arrival Any Indicators Present on Arrival: No History of DVT/PE: No History of Uncontrolled Diabetes: No Urinary Catheter: No History of Decub. Ulcer: No History Surgical Site Infection Following: None - Disposition Have Diagnosis and Disposition been Completed?: Yes Disposition Time: 10:05 <Elpidio Castillo - Last Filed: 05/01/17 10:07> <Sonny Tejeda - Last Filed: 05/01/17 10:49> - Disposition Diagnosis: Abdominal pain, Withdrawal symptoms, alcohol Disposition: HOME/ ROUTINE Patient Problems: Current Active Problems Problem Status Onset Abdominal pain Acute Withdrawal symptoms, alcohol Acute Condition: FAIR Discharge Instructions (ExitCare): Alcohol Withdrawal (ED), Abdominal Pain (ED) Additional Instructions: Piyush Craig, thank you for letting us take care of you today. Your provider was Dr. Tejeda. You were treated for alcohol withdrawal and abdominal pain. The emergency medical care you received today was directed at your acute symptoms. If you were prescribed any medication, please fill it and take as directed. It may take several days for your symptoms to resolve. Return to the Emergency Department if your symptoms worsen, do not improve, or if you have any other problems. Please contact your doctor or call one of the physicians/clinics you have been referred to that are listed on the Patient Visit Information form that is included in your discharge packet. Bring any paperwork you were given at discharge with you along with any medications you are taking to your follow up visit. Our treatment cannot replace ongoing medical care by a primary care provider (PCP) outside of the emergency department. Thank you for allowing the [facility] team to be part of your care today. Prescriptions: chlordiazePOXIDE [Chlordiazepoxide HCl] 50 mg PO TID PRN #30 cap PRN Reason: Symptoms Of Alcohol Withdrawl chlordiazePOXIDE [Chlordiazepoxide HCl] 25 mg PO TID #30 cap Referrals: Griselda Heard MD [Primary Care Provider] - Follow up with primary
[2017-05-01] MEDS: Multivitamin (MVI) 10 ML, Thiamine 100 MG, Folic Acid 1 MG in Sodium Chloride 0.9% 1,00... IV ONE ×2 (08:46→08:59)
[2017-05-01 08:57] LABS: HEMOGLOBIN 11.7 gm/dL (14.0-18.0); MEAN CELL VOLUME 88.5 fL (80.0-105.0); MEAN CORPUSCULAR HEMOGLOBIN 29.3 pg (25.0-35.0); MEAN CORPUSCULAR HGB CONC 33.1 g/dl (31.0-37.0); MEAN PLATELET VOLUME 10.5 fl (7.0-11.0); PLATELET COUNT 227 10^3/uL (120.0-450.0); RED CELL DISTRIBUTION WIDTH 15.5 % (11.5-14.5); WHITE BLOOD COUNT 3.5 10^3/ul (4.5-11.0)
[2017-05-01 09:05] LABS: ALB/GLOB RATIO 1.5 (1.1-1.8); ALBUMIN 4.7 g/dL (3.0-4.8); ALT/SGPT 68 U/L (7-56); AST/SGOT 94 U/L (15-59); BLOOD UREA NITROGEN 8 mg/dL (7-21); CALCIUM 9.1 mg/dL (8.4-10.5); GFR AFRICAN-AMERICAN > 60; GFR NON-AFRICAN AMERICAN > 60; LIPASE 85 U/L (23-300)
[2017-05-01] MEDS ORDERED: Iohexol 350 MG/100 ML VIAL ONE (09:09)
[2017-05-01] MEDS ORDERED: Potassium Chloride 20 mEq ER Tab PO STA (09:18)
[2017-05-01 09:44] LABS: NEUTROPHIL 32 % (50.0-70.0)
[2017-05-01 09:45] LABS: BASOPHIL 2 % (0.0-1.0); EOSINOPHIL 1 % (0.0-3.0); LYMPHOCYTE 54 % (22.0-35.0); MONOCYTE 11 % (1.0-6.0); PLATELET ESTIMATE NORMAL (NORMAL)
--- NOTE | 2017-05-01 10:03 | CT ---
PROCEDURE: CT Abdomen and Pelvis with contrast HISTORY: abdominal pain COMPARISON: 04/10/2017 TECHNIQUE: Contrast dose: 100 mL Omnipaque 350 Radiation dose: Total exam DLP = 309 mGy-cm. This CT exam was performed using one or more of the following dose reduction techniques: Automated exposure control, adjustment of the mA and/or kV according to patient size, and/or use of iterative reconstruction technique. FINDINGS: LOWER THORAX: Unremarkable. LIVER: A diffuse fatty infiltration of the liver suspect. No gross lesion or ductal dilatation. GALLBLADDER AND BILE DUCTS: Unremarkable. PANCREAS: Unremarkable. No gross lesion or ductal dilatation. SPLEEN: Unremarkable. ADRENALS: Unremarkable. No mass. KIDNEYS AND URETERS: Probable small 4 mm left upper renal pole intra cortical cyst No hydronephrosis. No suspicious-appearing solid mass. VASCULATURE: Unremarkable. No aortic aneurysm. BOWEL: Probable few diverticuli. No diverticulitis suggested. No obstruction. No gross mural thickening. The terminal ileum appears contiguous with the cecum -previously this was by a a fat planes. No gross keny cecal inflammatory changes noted APPENDIX: The appendix is less well seen on the current exam PERITONEUM: Unremarkable. No free fluid. No free air. LYMPH NODES: Unremarkable. No enlarged lymph nodes. BLADDER: Unremarkable. REPRODUCTIVE: Unremarkable. BONES: Anterior superior bilateral sacroiliac sclerotic arthrosis. L4 anterior spondylosis. No fracture or lytic lesion appreciated OTHER FINDINGS: None. IMPRESSION: The appendix is less clearly delineated on this exam. No pericecal inflammatory changes noted. No gross diverticulitis. Grossly the bowel loops appear unremarkable. No obstruction or free air seen
[2017-05-01 11:51] VITALS: BP 129/79; PULSE 86; TEMP 98.2
--- NOTE | 2017-05-01 13:26 | CARD ---
APPROVED REPORT EKG Measurement Heart [id number] [place] [id number] <Conclusion> Normal sinus rhythm LVH by voltage J-point elevations c/w early repolarization
== END 2017-05-01 11:52 | disposition home or self-care (01) ==
LOC: ED 08:05
DX: F10.239 Alcohol dependence with withdrawal, unspecified (principal); Y90.6 Blood alcohol level of 120-199 mg/100 ml; R10.9 Unspecified abdominal pain; I10 Essential (primary) hypertension; K21.9 Gastro-esophageal reflux disease without esophagitis; F41.9 Anxiety disorder, unspecified; F32.9 Major depressive disorder, single episode, unspecified; Z72.0 Tobacco use
CPT/HCPCS: 74177; 80053; 80320; 83690; 85025; 93005; 96374; 96375; 99284; J1885; J2405; J3411; J7040; Q9967

== ENCOUNTER 2017-05-01 17:37 | Emergency (ER) | payer MEDICAID ==
[2017-05-01 17:54] VITALS: BP 141/69; PULSE 67; RESP 16; TEMP 98.3; O2SAT 98; BMI 20.2
[2017-05-01] MEDS ORDERED: Alum-Mag Hydrox-Simethicone Susp (30 mL) PO STA (18:03)
--- NOTE | 2017-05-01 18:07 | ED PDOC ---
Arrival/HPI - General Chief Complaint: Abdominal Pain Time Seen by Provider: 05/01/17 17:51 - History of Present Illness Narrative History of Present Illness (Text): 42 year old M c Past medical history alcohol abuse, anxiety p/w abdominal pain. Patient was in this ER earlier today with the same complaint and states he is in this ER multiple times with the same complaint. He is well known to ER for alcohol intoxication and abdominal pain. Earlier today, he had an abdominal CT which did not show any acute disease. Denies fever, dysuria. Past Medical History - Infectious Disease Hx of Infectious Diseases: None - Tetanus Immunization Tetanus Immunization: Unknown - Reproductive Currently : No - Past Medical History Past Medical History: No Previous - Cardiac Hx Hypertension: Yes - Pulmonary Hx Respiratory Disorders: No Hx Chronic Obstructive Pulmonary Disease (COPD): No - Neurological Hx Neurological Disorder: Yes Hx Dizziness: Yes Other/Comment: neuropathy - HEENT Hx HEENT Disorder: No Hx Blind: No Hx Cataracts: No Hx Deafness: No Hx Difficulty Chewing: No Hx Epistaxis: No Hx Glaucoma: No Hx Macular Degeneration: No - Renal Hx Renal Disorder: No Hx Renal Failure: No - Endocrine/Metabolic Hx Endocrine Disorders: No - Hematological/Oncological Hx Blood Disorders: No - Integumentary Hx Dermatological Disorder: No - Musculoskeletal/Rheumatological Hx Falls: No - Gastrointestinal Hx Gastrointestinal Disorders: Yes Hx Gastroesophageal Reflux: Yes - Genitourinary/Gynecological Hx Genitourinary Disorders: No - Psychiatric Hx Psychophysiologic Disorder: Yes (ETOH, substance abuse,SMOKES CIGARETTES) Hx Substance Use: No (denies) - Past Surgical History Past Surgical History: Non-Contributing - Surgical History Hx Musculoskeletal Surgery: Yes (RIGHT FOOT SXrod and screws) Hx Orthopedic Surgery: Yes - Anesthesia Hx Anesthesia: Yes Hx Anesthesia Reactions: No Hx Malignant Hyperthermia: No - Suicidal Assessment Feels Threatened In Home Enviroment: No Family/Social History Family/Social History: No Known Family HX Smoking Status: Current Some Days Smoker Hx Alcohol Use: Yes (DRINKS PINT OF VODKA AND BEER DAILY) Hx Substance Use: No (denies) Substance used: marijuana & coaine Hx Substance Use Treatment: No Allergies/Home Meds Allergies/Adverse Reactions: Allergies No Known Allergies Allergy (Verified 04/17/17 16:38) Review of Systems - Physician Review All systems were reviewed & negative as marked: Yes - Review of Systems Constitutional: absent: Fevers Cardiovascular: absent: Chest Pain Physical Exam - Physical Exam Narrative Physical Exam (Text): Constitutional: No acute distress. Head: Normocephalic. Atraumatic. Eyes: PERRL. ENT: Moist mucous membranes. Neck: Supple. Cardiovascular: Regular rate. Chest: No tenderness. Respiratory: Clear to auscultation bilaterally. GI: Soft. L sided tenderness. Nondistended. Back: No CVA tenderness. Musculoskeletal: No tenderness or swelling of extremities. Skin: No rash. Neurologic: Alert, no focal deficit. Patient with hand and leg tremor, known to occur when provider enters room and not existent when patient observed from afar. Vital Signs Temp Pulse Resp BP Pulse Ox 05/01/17 17:52 98.3 F 67 16 141/69 98 Medical Decision Making ED Course and Treatment: I instructed patient to follow up with PMD and GI and counseled patient on alcohol cessation and option of detox at [facility] if/when he is willing. Otherwise, no further indication for emergency department evaluation now as patient had extensive evaluation just hours ago in this same ER, has normal vital signs, not overtly hypertensive and normal HR and in no acute distress. Disposition/Present on Arrival - Present on Arrival Any Indicators Present on Arrival: No History of DVT/PE: No History of Uncontrolled Diabetes: No Urinary Catheter: No History of Decub. Ulcer: No History Surgical Site Infection Following: None - Disposition Have Diagnosis and Disposition been Completed?: Yes Diagnosis: Alcohol abuse, Abdominal pain Disposition: HOME/ ROUTINE Disposition Time: 18:04 Patient Plan: Discharge Condition: STABLE Discharge Instructions (ExitCare): Abuse of Alcohol (ED) Prescriptions: Famotidine/Ca Carb/Mag Hydrox [Pepcid Complete Tablet Chew] 1 each PO BID #[id number] tab.chew Referrals: Griselda Heard MD [Non-Staff] - Follow up with primary
== END 2017-05-01 18:05 | disposition home or self-care (01) ==
LOC: ED 17:37
DX: F10.10 Alcohol abuse, uncomplicated (principal); R10.9 Unspecified abdominal pain

== ENCOUNTER 2017-05-14 07:42 | Emergency (ER) | payer MEDICAID ==
[2017-05-14 07:52] VITALS: BMI 20.9
[2017-05-14] MEDS ORDERED: Multivitamin (MVI) 10 ML, Thiamine 100 MG, Folic Acid 1 MG in Sodium Chloride 0.9% 1,00... IV ONE (07:52)
--- NOTE | 2017-05-14 07:55 | ED PDOC ---
Arrival/HPI - General Chief Complaint: Abdominal Pain Time Seen by Provider: 05/14/17 07:46 Historian: Patient - History of Present Illness Time/Duration: Prior to Arrival Symptom Onset: Sudden Symptom Course: Unchanged Quality: Aching Severity Level: Moderate Activities at Onset: Rest Associated Symptoms (Text): 05/14/17 07:53 Patient is well-known to the emergency department staff. He presents to the emergency department from home via ambulance complaining of abdominal pain nausea vomiting and diarrhea beginning this morning. His last drink was approximately 24 hours ago. He had an unrevealing CT scan of the abdomen and pelvis less than 2 weeks ago. Past Medical History - Infectious Disease Hx of Infectious Diseases: None - Tetanus Immunization Tetanus Immunization: Unknown - Reproductive Currently : No - Past Medical History Past Medical History: No Previous - Cardiac Hx Hypertension: Yes - Pulmonary Hx Respiratory Disorders: No Hx Chronic Obstructive Pulmonary Disease (COPD): No - Neurological Hx Neurological Disorder: Yes Hx Dizziness: Yes Other/Comment: neuropathy - HEENT Hx HEENT Disorder: No Hx Blind: No Hx Cataracts: No Hx Deafness: No Hx Difficulty Chewing: No Hx Epistaxis: No Hx Glaucoma: No Hx Macular Degeneration: No - Renal Hx Renal Disorder: No Hx Renal Failure: No - Endocrine/Metabolic Hx Endocrine Disorders: No - Hematological/Oncological Hx Blood Disorders: No - Integumentary Hx Dermatological Disorder: No - Musculoskeletal/Rheumatological Hx Falls: No - Gastrointestinal Hx Gastrointestinal Disorders: Yes Hx Gastroesophageal Reflux: Yes - Genitourinary/Gynecological Hx Genitourinary Disorders: No - Psychiatric Hx Psychophysiologic Disorder: Yes (ETOH, substance abuse,SMOKES CIGARETTES) Hx Substance Use: No (denies) - Past Surgical History Past Surgical History: Non-Contributing - Surgical History Hx Musculoskeletal Surgery: Yes (RIGHT FOOT SXrod and screws) Hx Orthopedic Surgery: Yes - Anesthesia Hx Anesthesia: Yes Hx Anesthesia Reactions: No Hx Malignant Hyperthermia: No - Suicidal Assessment Feels Threatened In Home Enviroment: No Family/Social History - Physician Review Nursing Documentation Reviewed: Yes Family/Social History: Unknown Family HX Smoking Status: Current Some Days Smoker Hx Alcohol Use: Yes (DRINKS PINT OF VODKA AND BEER DAILY) Hx Substance Use: No (denies) Substance used: marijuana & coaine Hx Substance Use Treatment: No Allergies/Home Meds Allergies/Adverse Reactions: Allergies No Known Allergies Allergy (Verified 04/17/17 16:38) Review of Systems - Physician Review All systems were reviewed & negative as marked: Yes - Review of Systems Constitutional: Normal Respiratory: Normal Cardiovascular: Normal Gastrointestinal: Abdominal Pain, Diarrhea, Nausea, Vomiting Genitourinary Male: absent: Dysuria, Frequency, Hematuria Neurological: absent: Headache, Dizziness Physical Exam Vital Signs Temp Pulse Resp BP Pulse Ox 05/14/17 08:23 98.4 F 05/14/17 07:45 76 16 146/74 99 Temperature: Afebrile Blood Pressure: Normal Pulse: Regular Respiratory Rate: Normal Appearance: Positive for: Well-Appearing, Non-Toxic, Comfortable Pain Distress: None Mental Status: Positive for: Alert and Oriented X 3 - Systems Exam Head: Present: Atraumatic, Normocephalic Pupils: Present: PERRL Extroacular Muscles: Present: EOMI Conjunctiva: Present: Normal Mouth: Present: Moist Mucous Membranes Pharnyx: No: ERYTHEMA, EXUDATE, TONSILS ENLARGED Neck: Present: Normal Range of Motion Respiratory/Chest: Present: Clear to Auscultation, Good Air Exchange. No: Respiratory Distress, Accessory Muscle Use Cardiovascular: Present: Regular Rate and Rhythm, Normal S1, S2. No: Murmurs Abdomen: Present: Normal Bowel Sounds. No: Tenderness, Distention, Peritoneal Signs, Rebound, Guarding Upper Extremity: Present: Normal Inspection. No: Cyanosis, Edema Lower Extremity: Present: Normal Inspection. No: Edema Neurological: Present: GCS=15, CN II-XII Intact, Speech Normal, Motor Func Grossly Intact Skin: Present: Warm, Dry, Normal Color. No: Rashes Psychiatric: Present: Alert, Oriented x 3, Normal Insight, Normal Concentration Medical Decision Making ED Course and Treatment: 05/14/17 07:55 Patient is not interested in alcohol detox 05/14/17 10:30 Symptoms improved. No vomiting or diarrhea in the department. - Lab Interpretations Lab Results: 05/14/17 08:25 05/14/17 08:25 Lab Results 05/14/17 09:10: Alcohol, Quantitative 18 H 05/14/17 08:25: Sodium 137, Potassium 3.9, Chloride 101, Carbon Dioxide 23, Anion Gap 17, BUN 16, Creatinine 0.8, Est GFR ( Amer) > 60, Est GFR (Non- Af Amer) > 60, Random Glucose 98, Calcium 9.0, Total Bilirubin 0.8, AST 817 H, ALT 367 H, Alkaline Phosphatase 68, Total Protein 7.4, Albumin 4.1, Globulin 3.3 , Albumin/Globulin Ratio 1.2, Lipase 125 05/14/17 08:25: WBC 2.1 L* D, RBC 4.50, Hgb 13.2 L, Hct 39.3 L, MCV 87.3, MCH 29.3, MCHC 33.6, RDW 14.3, Plt Count 161, MPV 11.0, Neutrophils % (Manual) 40 L , Lymphocytes % (Manual) 42 H, Monocytes % (Manual) 17 H, Eosinophils % (Manual ) 1, Platelet Evaluation Normal, Large Platelets Present - Medication Orders Current Medication Orders: Discontinued Medications Famotidine (Pepcid) 20 mg IVP STAT STA Stop: 05/14/17 07:53 Last Admin: 05/14/17 08:27 Dose: 20 mg Multivitamins/Vitamin C 10 ml/Thiamine HCl 100 mg/ Folic Acid 1 mg/ Sodium Chloride 1,011.2 mls @ 1,000 mls/hr IV .Q1H1M ONE Stop: 05/14/17 08:52 Last Admin: 05/14/17 09:21 Dose: 1,000 mls/hr Ketorolac Tromethamine (Toradol) 30 mg IVP STAT STA Stop: 05/14/17 07:53 Last Admin: 05/14/17 08:32 Dose: 30 mg Ondansetron HCl (Zofran Inj) 4 mg IVP STAT STA Stop: 05/14/17 07:53 Last Admin: 05/14/17 08:25 Dose: 4 mg Disposition/Present on Arrival - Present on Arrival Any Indicators Present on Arrival: No History of DVT/PE: No History of Uncontrolled Diabetes: No Urinary Catheter: No History of Decub. Ulcer: No History Surgical Site Infection Following: None - Disposition Have Diagnosis and Disposition been Completed?: Yes Diagnosis: Nausea vomiting and diarrhea, Alcohol abuse, Abdominal pain Disposition: HOME/ ROUTINE Disposition Time: 10:30 Patient Plan: Discharge Condition: IMPROVED Discharge Instructions (ExitCare): Acute Abdominal Pain (ED), Gastroenteritis ( ED), Acute Nausea and Vomiting (ED), Acute Diarrhea (ED), Abuse of Alcohol (ED) Prescriptions: Ondansetron [Zofran Odt] 4 mg SL Q6 #20 odt
[2017-05-14 08:23] VITALS: TEMP 98.4
[2017-05-14 08:39] LABS: HEMOGLOBIN 13.2 gm/dL (14.0-18.0); MEAN CELL VOLUME 87.3 fL (80.0-105.0); MEAN CORPUSCULAR HEMOGLOBIN 29.3 pg (25.0-35.0); MEAN CORPUSCULAR HGB CONC 33.6 g/dl (31.0-37.0); PLATELET COUNT 161 10^3/uL (120.0-450.0); RED CELL DISTRIBUTION WIDTH 14.3 % (11.5-14.5)
[2017-05-14 08:41] LABS: WHITE BLOOD COUNT 2.1 10^3/ul (4.5-11.0)
[2017-05-14 08:56] LABS: ALB/GLOB RATIO 1.2 (1.1-1.8); ALBUMIN 4.1 g/dL (3.0-4.8); ALT/SGPT 367 U/L (7-56); BLOOD UREA NITROGEN 16 mg/dL (7-21); GFR AFRICAN-AMERICAN > 60; GFR NON-AFRICAN AMERICAN > 60; LIPASE 125 U/L (23-300)
[2017-05-14 09:05] LABS: AST/SGOT 817 U/L (15-59)
[2017-05-14 09:15] LABS: LYMPHOCYTE 42 % (22.0-35.0); MONOCYTE 17 % (1.0-6.0); NEUTROPHIL 40 % (50.0-70.0)
[2017-05-14 09:16] LABS: EOSINOPHIL 1 % (0.0-3.0); LARGE PLATELETS PRESENT; PLATELET ESTIMATE NORMAL (NORMAL)
[2017-05-14 10:51] VITALS: BP 120/90; PULSE 78; RESP 17; O2SAT 100
== END 2017-05-14 10:53 | disposition home or self-care (01) ==
LOC: ED 07:42
DX: R11.2 Nausea with vomiting, unspecified (principal); R19.7 Diarrhea, unspecified; R10.9 Unspecified abdominal pain; F10.10 Alcohol abuse, uncomplicated; Y90.0 Blood alcohol level of less than 20 mg/100 ml; I10 Essential (primary) hypertension; K21.9 Gastro-esophageal reflux disease without esophagitis; Z72.0 Tobacco use
CPT/HCPCS: 80053; 80320; 83690; 85025; 96365; 96375; 99283; J1885; J2405; J3411; J7040

== ENCOUNTER 2017-05-27 15:18 | Emergency (ER) | payer MEDICAID ==
[2017-05-27 15:19] VITALS: BMI 20.9
[2017-05-27] MEDS ORDERED: Multivitamin (MVI) 10 ML, Thiamine 100 MG, Folic Acid 1 MG in Sodium Chloride 0.9% 1,00... IV ONE (15:36)
--- NOTE | 2017-05-27 15:50 | ED PDOC ---
Arrival/HPI - General Chief Complaint: Alcohol Ingestion Time Seen by Provider: 05/27/17 15:34 Historian: Patient - History of Present Illness Narrative History of Present Illness (Text): 05/27/17 15:35 42 y/o, pmh including rhabdomylosis/electrolyte abnormalities/gastritis, psychiatric history of alcohol abuse, nkda, biba for alcohol intoxication. Pt. stated that he was drinking vodka and beer earlier this afternoon with his girlfriend, left the girlfriend and trying to walk home, walking with unsteady gait and hit the rt. sided head and rt. sided shoulder, found by the bystander which hold him up and sat him on the residential stair steps, ambulance was call and arrive. Pt. is here at the ER with no medical or psychological complaints. Pt. stated that he did took his usual allergy medication ronda this morning with no other medication. Pt. has no abdominal pain, no nausea or vomiting, no fever or chills, no night sweat, no rash, no neck or back pain, no other medical or psychological complaints. Past Medical History - Provider Review Nursing Documentation Reviewed: Yes - Infectious Disease Hx of Infectious Diseases: None - Tetanus Immunization Tetanus Immunization: Unknown - Reproductive Currently : No - Past Medical History Past Medical History: No Previous - Cardiac Hx Hypertension: Yes - Pulmonary Hx Respiratory Disorders: No Hx Chronic Obstructive Pulmonary Disease (COPD): No - Neurological Hx Neurological Disorder: Yes Hx Dizziness: Yes Other/Comment: neuropathy - HEENT Hx HEENT Disorder: No Hx Blind: No Hx Cataracts: No Hx Deafness: No Hx Difficulty Chewing: No Hx Epistaxis: No Hx Glaucoma: No Hx Macular Degeneration: No - Renal Hx Renal Disorder: No Hx Renal Failure: No - Endocrine/Metabolic Hx Endocrine Disorders: No - Hematological/Oncological Hx Blood Disorders: No - Integumentary Hx Dermatological Disorder: No - Musculoskeletal/Rheumatological Hx Falls: No - Gastrointestinal Hx Gastrointestinal Disorders: Yes Hx Gastroesophageal Reflux: Yes - Genitourinary/Gynecological Hx Genitourinary Disorders: No - Psychiatric Hx Psychophysiologic Disorder: Yes (ETOH, substance abuse,SMOKES CIGARETTES) Hx Substance Use: No (denies) - Past Surgical History Past Surgical History: Non-Contributing - Surgical History Hx Musculoskeletal Surgery: Yes (RIGHT FOOT SXrod and screws) Hx Orthopedic Surgery: Yes - Anesthesia Hx Anesthesia: Yes Hx Anesthesia Reactions: No Hx Malignant Hyperthermia: No - Suicidal Assessment Feels Threatened In Home Enviroment: No Family/Social History - Physician Review Nursing Documentation Reviewed: Yes Family/Social History: Unknown Family HX Smoking Status: Current Some Days Smoker Hx Alcohol Use: Yes (DRINKS PINT OF VODKA AND BEER DAILY) Hx Substance Use: No (denies) Substance used: marijuana & coaine Hx Substance Use Treatment: No Allergies/Home Meds Allergies/Adverse Reactions: Allergies No Known Allergies Allergy (Verified 04/17/17 16:38) Review of Systems - Review of Systems Systems not reviewed;Unavailable: Intoxicated Constitutional: absent: Fatigue, Fevers Eyes: absent: Vision Changes ENT: absent: Hearing Changes Respiratory: absent: SOB, Cough Cardiovascular: absent: Chest Pain Gastrointestinal: absent: Abdominal Pain, Nausea, Vomiting Musculoskeletal: absent: Arthralgias, Back Pain, Neck Pain, Joint Swelling, Myalgias Skin: absent: Rash, Pruritis, Skin Lesions Neurological: absent: Headache, Dizziness, Focal Weakness Physical Exam Vital Signs Temp Pulse Resp BP Pulse Ox 05/27/17 20:12 80 17 135/72 100 05/27/17 17:50 84 18 138/76 100 05/27/17 16:45 98.4 F 89 18 141/80 100 - Systems Exam Head: Present: Atraumatic, Normocephalic Pupils: Present: PERRL Extroacular Muscles: Present: EOMI Conjunctiva: Present: Normal Ears: Present: NORMAL TM, Normal Canal. No: Erythema Mouth: Present: Moist Mucous Membranes Neck: Present: Normal Range of Motion Respiratory/Chest: Present: Clear to Auscultation, Good Air Exchange. No: Respiratory Distress, Accessory Muscle Use, Wheezes, Decreased Breath Sounds, Rales, Retracting, Tachypneic, Tender to Palpation Cardiovascular: Present: Regular Rate and Rhythm, Normal S1, S2. No: Murmurs Abdomen: Present: Normal Bowel Sounds. No: Tenderness, Distention, Peritoneal Signs, Rebound, Guarding Genitourinary Male: No: Prostate Enlargement Back: Present: Normal Inspection. No: CVA Tenderness, Midline Tenderness, Paraspinal Tenderness, Decubitus Ulcer Upper Extremity: Present: Normal Inspection, Normal ROM, Neurovascularly Intact , Capillary Refill < 2s. No: Cyanosis, Edema, Tenderness, Swelling, Deformity Lower Extremity: Present: Normal Inspection, Normal ROM, Neurovascularly Intact , Capillary Refill < 2 s. No: Edema, Tenderness, Swelling, Deformity Neurological: Present: GCS=15, Motor Func Grossly Intact, Memory Normal Skin: Present: Warm, Dry, Normal Color. No: Rashes Psychiatric: Present: Alert, Oriented x 3, Normal Insight, Normal Concentration Medical Decision Making ED Course and Treatment: 05/27/17 15:55 -labs -CT head -Rt. shoulder xray -IV bananana bag/pepcid -Observe and reassess 05/27/17 19:59 -CT Head show no acute findings -Rt. shoulder show no fracture or dislocation, +degenerative joint changes. -Labs are non-significant except magnesium 1.6 which I corrected it. -Pt. feels well, completely awake, no medical or psychological complaints, walking with normal gait and posture without clinical physician assistant. -Discharge home with education on follow up with your own pmd within 2 days, avoid drinking, follow up with your own pmd within 2 days, return to the ER for any new or worsening signs or symptoms. - Lab Interpretations Lab Results: 05/27/17 16:00 05/27/17 16:00 Lab Results 05/27/17 16:00: Sodium 145, Potassium 3.6, Chloride 106, Carbon Dioxide 24, Anion Gap 19, BUN 21, Creatinine 1.0, Est GFR ( Amer) > 60, Est GFR (Non- Af Amer) > 60, Random Glucose 104, Calcium 9.1, Magnesium 1.6 L, Total Bilirubin 0.3, AST 94 H, ALT 106 H, Alkaline Phosphatase 67, Total Creatine Kinase 354 H, CK-MB (CK-2) 2.8, CK-MB (CK-2) % Cancelled, Total Protein 6.7, Albumin 3.5, Globulin 3.1, Albumin/Globulin Ratio 1.1 05/27/17 16:00: WBC 4.9 D, RBC 3.88, Hgb 11.4 L, Hct 34.2 L, MCV 88.1, MCH 29.4 , MCHC 33.3, RDW 14.1, Plt Count 141, MPV 10.9, Gran % 49.8 L, Lymph % (Auto) 45.3 H, Grayson % (Auto) 3.9, Eos % (Auto) 0.6 L, Baso % (Auto) 0.4, Gran # 2.45, Lymph # 2.2, Grayson # 0.2, Eos # 0.0, Baso # 0.02 I have reviewed the lab results: Yes Interpretation: Abnormal lab values (magnesium 1.6) - RAD Interpretation Radiology Orders: 05/27/17 15:50 HEAD W/O CONTRAST [CT] Stat 05/27/17 15:52 SHOULDER RIGHT [RAD] Stat CT Head IMPRESSION: No acute intracranial pathology identified. Rt. shoulder: no acute fracture or dislocation, +degenerative joint changes. Routing Equipment Tender: Radiologist - Medication Orders Current Medication Orders: Discontinued Medications Famotidine (Pepcid) 20 mg IVP STAT STA Stop: 05/27/17 15:58 Last Admin: 05/27/17 16:39 Dose: 20 mg Multivitamins/Vitamin C 10 ml/Thiamine HCl 100 mg/ Folic Acid 1 mg/ Sodium Chloride 1,011.2 mls @ 500 mls/hr IV .Q2H2M ONE Stop: 05/27/17 17:37 Last Admin: 05/27/17 16:25 Dose: 500 mls/hr Magnesium Sulfate/Dextrose (Magnesium Sulfate 1 Gm/100 Ml D5w) 1 gm in 100 mls @ 100 mls/hr IVPB ONCE ONE Stop: 05/27/17 17:32 Last Admin: 05/27/17 17:06 Dose: 100 mls/hr ED OBSERVATION Discharge: Yes Date of observation admission: 05/27/17 Time of observation admission: 16:00 - Observation admission statement Patient is being placed in observation because:: alcohol intoxication - Goals of Observation Goals of observation are:: sober - Progress Note Progress Note: 05/27/17 16:00 -Labs and radiology tests ordered -IV banana bag/pepcid -will reassess 05/27/17 18:00 -Pt. is sleeping, no medical or psychological complaints. 05/27/17 20:00 -CT head and xray show no acute traumatic findings. - PA / [employer] / Resident Statement MD/DO has reviewed & agrees with the documentation as recorded. Disposition/Present on Arrival - Present on Arrival Any Indicators Present on Arrival: No History of DVT/PE: No History of Uncontrolled Diabetes: No Urinary Catheter: No History of Decub. Ulcer: No History Surgical Site Infection Following: None - Disposition Have Diagnosis and Disposition been Completed?: Yes Diagnosis: Alcohol intoxication Disposition: HOME/ ROUTINE Disposition Time: 20:02 Patient Plan: Discharge Condition: IMPROVED Additional Instructions: -Discharge home with education on follow up with your own pmd within 2 days, avoid drinking, follow up with your own pmd within 2 days, return to the ER for any new or worsening signs or symptoms. Referrals: Griselda Heard MD [Primary Care Provider] - Follow up with primary Forms: [employer] ([place]), WORK NOTE
[2017-05-27 16:09] LABS: ADD MANUAL DIFF? NO
[2017-05-27 16:23] LABS: BASO # 0.02 K/mm3 (0.0-2.0); BASO % 0.4 % (0.0-3.0); EOS % 0.6 % (1.5-5.0); GRAN # 2.45 (1.4-6.5); GRAN % 49.8 % (50.0-68.0); HEMATOCRIT 34.2 % (42.0-52.0); LYMPH # 2.2 (1.2-3.4); LYMPH % 45.3 % (22.0-35.0); MEAN CELL VOLUME 88.1 fL (80.0-105.0); MEAN CORPUSCULAR HEMOGLOBIN 29.4 pg (25.0-35.0); MEAN CORPUSCULAR HGB CONC 33.3 g/dl (31.0-37.0); MEAN PLATELET VOLUME 10.9 fl (7.0-11.0); MONO # 0.2 (0.1-0.6); MONO % 3.9 % (1.0-6.0); PLATELET COUNT 141 10^3/uL (120.0-450.0); RED CELL DISTRIBUTION WIDTH 14.1 % (11.5-14.5); WHITE BLOOD COUNT 4.9 10^3/ul (4.5-11.0)
[2017-05-27 16:28] LABS: ALB/GLOB RATIO 1.1 (1.1-1.8); ALKALINE PHOSPHATASE 67 U/L (38-133); ALT/SGPT 106 U/L (7-56); AST/SGOT 94 U/L (15-59); BILIRUBIN,TOTAL 0.3 mg/dL (0.2-1.3); BLOOD UREA NITROGEN 21 mg/dL (7-21); CALCIUM 9.1 mg/dL (8.4-10.5); CARBON DIOXIDE 24 mmol/L (21-33); CHLORIDE 106 mmol/L (98-107); GFR AFRICAN-AMERICAN > 60; GLUCOSE,RANDOM 104 mg/dL (70-110); MAGNESIUM 1.6 mg/dL (1.7-2.2); POTASSIUM 3.6 mmol/L (3.6-5.0); SODIUM 145 mmol/L (132-148); TOTAL PROTEIN 6.7 g/dL (5.8-8.3)
[2017-05-27] MEDS ORDERED: Magnesium Sulfate 1 gm in D5W 1 GM/100 ML BAG IVPB ONE (16:33)
[2017-05-27 16:46] VITALS: TEMP 98.4; O2SAT 100
--- NOTE | 2017-05-27 18:01 | CT ---
PROCEDURE: CT HEAD WITHOUT CONTRAST. HISTORY: head injury, intoxicated COMPARISON: Noncontrast head CT performed 10/20/16 TECHNIQUE: Axial computed tomography images were obtained through the head/brain without intravenous contrast. Radiation dose: Total exam DLP = 853.50 mGy-cm. This CT exam was performed using one or more of the following dose reduction techniques: Automated exposure control, adjustment of the mA and/or kV according to patient size, and/or use of iterative reconstruction technique. FINDINGS: Streak artifact obscures evaluation of the skullbase. HEMORRHAGE: No intracranial hemorrhage. BRAIN: No mass effect or edema. Cintron-white matter differentiation appears intact. Please note that MRI with diffusion imaging is more sensitive in the detection of acute ischemic event. VENTRICLES: No hydrocephalus. CALVARIUM: Unremarkable. PARANASAL SINUSES: Unremarkable as visualized. No significant inflammatory changes. MASTOID AIR CELLS: Unremarkable as visualized. No inflammatory changes. OTHER FINDINGS: None. IMPRESSION: No acute intracranial pathology identified. See above.
[2017-05-27 20:13] VITALS: BP 135/72; PULSE 80; RESP 17
--- NOTE | 2017-05-28 07:36 | RAD ---
PROCEDURE: Radiographs of the Right Shoulder HISTORY: fall on the rt. shoulder COMPARISON: No prior. FINDINGS: BONES: Normal. No fracture. JOINTS: Degenerative joint changes are mild to moderate the right acromioclavicular joint and the glenohumeral joint appears unremarkable. SOFT TISSUES: Normal. OTHER FINDINGS: None. IMPRESSION: No acute fracture or dislocation right shoulder. [id number] degenerative joint changes seen at the right acromioclavicular joint.
== END 2017-05-27 20:10 | disposition home or self-care (01) ==
LOC: ED 15:18
DX: F10.129 Alcohol abuse with intoxication, unspecified (principal)
CPT/HCPCS: 70450; 73030; 80053; 82550; 82553; 83735; 85025; 96365; 96366; 96368; 96375; 99285; J3411; J3475; J7040

== ENCOUNTER 2017-06-01 19:17 | Inpatient (IN) | payer MEDICAID ==
[2017-06-01 19:17] VITALS: BMI 20.9
[2017-06-01] MEDS ORDERED: Pantoprazole 40 MG in Sodium Chloride 0.9% 100 ML IV STA (19:48)
[2017-06-01] MEDS ORDERED: Sodium Chloride 0.9% 1,000 ML IV STA (19:48)
[2017-06-01 20:46] LABS: HEMOGLOBIN 14.3 gm/dL (14.0-18.0); MEAN CELL VOLUME 88.4 fL (80.0-105.0); MEAN CORPUSCULAR HEMOGLOBIN 32.5 pg (25.0-35.0); MEAN CORPUSCULAR HGB CONC 36.8 g/dl (31.0-37.0); PLATELET COUNT 194 10^3/uL (120.0-450.0); RED CELL DISTRIBUTION WIDTH 14.9 % (11.5-14.5); WHITE BLOOD COUNT 3.4 10^3/ul (4.5-11.0)
--- NOTE | 2017-06-01 21:29 | ED PDOC ---
Arrival/HPI - General Chief Complaint: Abdominal Pain Time Seen by Provider: 06/01/17 19:24 Historian: Patient - History of Present Illness Narrative History of Present Illness (Text): 06/01/17 19:45 Piyush Craig is a 41 year old male, with a history of chronic alcohol abuse, hypertension, and anxiety, presents to the emergency department complaining of alcohol withdrawal. Patient states he has not had an alcohol drink in 2 days. Patient denies any fever, chills, chest pain, shortness of breath, urinary symptoms, back pain, neck pain, headache, dizziness, or any other complaints. Time/Duration: < week (2 days) Symptom Onset: Gradual Symptom Course: Unchanged Activities at Onset: Rest, Light Context: Home Past Medical History - Provider Review Nursing Documentation Reviewed: Yes - Infectious Disease Hx of Infectious Diseases: None - Tetanus Immunization Tetanus Immunization: Unknown - Reproductive Currently : No - Past Medical History Past Medical History: No Previous - Cardiac Hx Hypertension: Yes - Pulmonary Hx Respiratory Disorders: No Hx Chronic Obstructive Pulmonary Disease (COPD): No - Neurological Hx Neurological Disorder: Yes Hx Dizziness: Yes Other/Comment: neuropathy - HEENT Hx HEENT Disorder: No Hx Blind: No Hx Cataracts: No Hx Deafness: No Hx Difficulty Chewing: No Hx Epistaxis: No Hx Glaucoma: No Hx Macular Degeneration: No - Renal Hx Renal Disorder: No Hx Renal Failure: No - Endocrine/Metabolic Hx Endocrine Disorders: No - Hematological/Oncological Hx Blood Disorders: No - Integumentary Hx Dermatological Disorder: No - Musculoskeletal/Rheumatological Hx Falls: No - Gastrointestinal Hx Gastrointestinal Disorders: Yes Hx Gastroesophageal Reflux: Yes - Genitourinary/Gynecological Hx Genitourinary Disorders: No - Psychiatric Hx Psychophysiologic Disorder: Yes (ETOH, substance abuse,SMOKES CIGARETTES) Hx Substance Use: No (denies) - Past Surgical History Past Surgical History: Non-Contributing - Surgical History Hx Musculoskeletal Surgery: Yes (RIGHT FOOT SXrod and screws) Hx Orthopedic Surgery: Yes - Anesthesia Hx Anesthesia: Yes Hx Anesthesia Reactions: No Hx Malignant Hyperthermia: No - Suicidal Assessment Feels Threatened In Home Enviroment: No Family/Social History - Physician Review Nursing Documentation Reviewed: Yes Family/Social History: Unknown Family HX Smoking Status: Current Some Days Smoker Hx Alcohol Use: Yes (DRINKS PINT OF VODKA AND BEER DAILY) Frequency of alcohol use: Daily Hx Substance Use: No (denies) Substance used: marijuana & coaine Hx Substance Use Treatment: No Allergies/Home Meds Allergies/Adverse Reactions: Allergies No Known Allergies Allergy (Verified 04/17/17 16:38) Review of Systems - Physician Review All systems were reviewed & negative as marked: Yes - Review of Systems Constitutional: Other (+alcohol withdrawal). absent: Fevers Eyes: Normal ENT: Normal Respiratory: Normal. absent: SOB, Cough Cardiovascular: Normal. absent: Chest Pain Genitourinary Male: Normal. absent: Dysuria, Hematuria, Urinary Output Changes Musculoskeletal: Normal. absent: Back Pain, Neck Pain Skin: Normal. absent: Rash Neurological: Normal. absent: Headache, Dizziness Endocrine: Normal Hemo/Lymphatic: Normal Psychiatric: Normal Physical Exam Vital Signs Reviewed: Yes Vital Signs Temp Pulse Resp BP Pulse Ox 06/02/17 06:00 98.5 F 68 20 134/98 H 99 06/02/17 05:48 88 18 150/90 98 06/01/17 19:33 98.6 F 86 20 124/94 H 98 Temperature: Afebrile Blood Pressure: Normal Pulse: Regular Respiratory Rate: Normal Appearance: Positive for: Well-Appearing, Non-Toxic, Comfortable Pain Distress: None Mental Status: Positive for: Alert and Oriented X 3 - Systems Exam Head: Present: Atraumatic, Normocephalic Pupils: Present: PERRL Extroacular Muscles: Present: EOMI Conjunctiva: Present: Normal Mouth: Present: Moist Mucous Membranes Neck: Present: Normal Range of Motion Respiratory/Chest: Present: Clear to Auscultation, Good Air Exchange. No: Respiratory Distress, Accessory Muscle Use Cardiovascular: Present: Regular Rate and Rhythm, Normal S1, S2. No: Murmurs Abdomen: Present: Normal Bowel Sounds. No: Tenderness, Distention, Peritoneal Signs Back: Present: Normal Inspection Upper Extremity: Present: Normal Inspection. No: Cyanosis, Edema Lower Extremity: Present: Normal Inspection. No: Edema Neurological: Present: GCS=15, CN II-XII Intact, Speech Normal Skin: Present: Warm, Dry, Normal Color. No: Rashes Psychiatric: Present: Alert, Oriented x 3, Normal Insight, Normal Concentration Medical Decision Making ED Course and Treatment: 06/01/17 19:45 Impression: 42 year old male complaining of alcohol withdrawal. Plan: -- EKG -- CXR -- Labs, alcohol level, amylase, lipase, cardiac enzymes -- Urinalysis -- IV fluids -- Zofran -- Protonix -- Ativan -- Reassess and disposition Prior Visits: Notes and results from previous visits were reviewed. - Lab Interpretations Lab Results: 06/01/17 20:20 06/01/17 21:30 Lab Results 06/02/17 00:05: Urine Color Yellow, Urine Appearance Clear, Urine pH 6.0, Ur Specific [place] 1.025, Urine Protein Negative, Urine Glucose (UA) Negative, Urine Ketones Negative, Urine Blood Negative, Urine Nitrate Negative, Urine Bilirubin Negative, Urine Urobilinogen 0.2, Ur Leukocyte Esterase Negative 06/01/17 21:30: Sodium 139, Potassium 5.1 H, Chloride 102, Carbon Dioxide 18 L, Anion Gap 24 H, BUN 18, Creatinine 0.9, Est GFR ( Amer) > 60, Est GFR ( Non-Af Amer) > 60, Random Glucose 88, Calcium 8.6, Total Bilirubin 2.3 H, AST 147 H, ALT 62 H, Alkaline Phosphatase 113, Lactate Dehydrogenase 3131 H, Total Creatine Kinase 275 H, CK-MB (CK-2) 2.1, CK-MB (CK-2) % Pending, Troponin I 0.03 D, Total Protein 8.4 H, Albumin 4.6, Globulin 3.8, Albumin/Globulin Ratio 1.2, Amylase 66, Lipase 181 06/01/17 20:20: Alcohol, Quantitative 164 H 06/01/17 20:20: WBC 3.4 L D, RBC 4.40, Hgb 14.3, Hct 38.9 L, MCV 88.4, MCH 32.5 , MCHC 36.8, RDW 14.9 H, Plt Count 194, Neutrophils % (Manual) 15 L, Band Neutrophils % 0, Lymphocytes % (Manual) 77 H, Atypical Lymphs % 0, Monocytes % ( Manual) 7 H, Eosinophils % (Manual) 1, Platelet Evaluation Normal, Stomatocytes Slight I have reviewed the lab results: Yes - RAD Interpretation Radiology Orders: 06/01/17 19:48 CHEST PORTABLE [RAD] Stat [employer] Operator: ED Physician - Medication Orders Current Medication Orders: Amlodipine Besylate (Norvasc) 5 mg PO DAILY ALEXANDRA Last Admin: 06/03/17 10:24 Dose: 5 mg Chlordiazepoxide (Librium) 25 mg PO BID ALEXANDRA PRN Reason: Protocol Last Admin: 06/03/17 17:20 Dose: 25 mg Re-Assess: Reassess Psych Meds Document 06/03/17 19:00 MLS (Rec: 06/03/17 20:22 MLS [facility] [id number]) Reassess Psych Med Effective Gabapentin (Neurontin) 400 mg PO TID ALEXANDRA PRN Reason: Protocol Last Admin: 06/03/17 17:20 Dose: 400 mg Re-Assess: Reassess Psych Meds Document 06/03/17 19:00 MLS (Rec: 06/03/17 20:22 MLS [facility] [id number]) Reassess Psych Med Effective Multivitamins/Vitamin C 10 ml/Thiamine HCl 100 mg/ Folic Acid 1 mg/ Sodium Chloride 1,011.2 mls @ 100 mls/hr IV .Q10H7M [facility] Last Admin: 06/03/17 16:01 Dose: 100 mls/hr Loperamide HCl (Imodium) 2 mg PO QID PRN PRN Reason: Diarrhea Last Admin: 06/02/17 13:28 Dose: 2 mg Lorazepam (Ativan) 1 mg IVP Q2H PRN; Protocol PRN Reason: Agitation Ondansetron HCl (Zofran Inj) 4 mg IVP Q4H PRN PRN Reason: Nausea/Vomiting Last Admin: 06/02/17 09:02 Dose: 4 mg Pantoprazole Sodium (Protonix Inj) 40 mg IVP DAILY [facility] Last Admin: 06/03/17 10:25 Dose: 40 mg Paroxetine HCl (Paxil) 10 mg PO HS [facility] Last Admin: 06/02/17 22:10 Dose: 10 mg Discontinued Medications Chlordiazepoxide (Librium) 25 mg PO Q8 ALEXANDRA PRN Reason: Protocol Last Admin: 06/03/17 06:51 Dose: 25 mg Re-Assess: Reassess Psych Meds Document 06/03/17 07:51 SD (Rec: 06/03/17 08:08 SD [facility] [id number]) Reassess Psych Med Effective Pantoprazole Sodium 40 mg/ (Sodium Chloride) 100 mls @ 400 mls/hr IV STAT STA Stop: 06/01/17 20:02 Last Admin: 06/01/17 20:32 Dose: 400 mls/hr Sodium Chloride (Sodium Chloride 0.9%) 1,000 mls @ 100 mls/hr IV .Q10H STA Stop: 06/02/17 05:47 Last Admin: 06/01/17 20:25 Dose: 100 mls/hr Multivitamins/Vitamin C 10 ml/Thiamine HCl 100 mg/ Folic Acid 1 mg/ Sodium Chloride 1,011.2 mls @ 100 mls/hr IV .Q10H7M ONE Stop: 06/02/17 14:56 Last Admin: 06/02/17 05:40 Dose: 100 mls/hr Sodium Chloride (Sodium Chloride 0.9%) 1,000 mls @ 100 mls/hr IV .Q10H ALXEANDRA Last Admin: 06/02/17 04:55 Dose: Magnesium Sulfate 2 gm/ Sodium (Chloride) 104 mls @ 102 mls/hr IVPB ONCE ONE Stop: 06/02/17 10:47 Last Admin: 06/02/17 10:05 Dose: 102 mls/hr Lorazepam (Ativan) 1 mg IVP ONCE ONE PRN Reason: Protocol Stop: 06/01/17 19:50 Last Admin: 06/01/17 20:22 Dose: 1 mg Lorazepam (Ativan) 1 mg IVP Q3H PRN; Protocol PRN Reason: Anxiety Last Admin: 06/02/17 06:04 Dose: 1 mg Re-Assess: Reassess Psych Meds Document 06/02/17 06:34 DLL (Rec: 06/02/17 09:49 DLL [id number]) Reassess Psych Med Effective Ondansetron HCl (Zofran Inj) 4 mg IVP STAT STA Stop: 06/01/17 19:49 Last Admin: 06/01/17 20:20 Dose: 4 mg Ondansetron HCl (Zofran Inj) 4 mg IVP STAT STA Stop: 06/02/17 04:10 Last Admin: 06/02/17 04:23 Dose: 4 mg Potassium Chloride (Potassium Chloride Oral Soln) 40 meq PO ONCE ONE Stop: 06/03/17 11:02 Last Admin: 06/03/17 14:06 Dose: 40 meq ED OBSERVATION Date of observation admission: 06/01/17 Time of observation admission: 22:00 - Observation admission statement Patient is being placed in observation because:: alcohol intoxication - Goals of Observation Goals of observation are:: sobriety, observe for signs of withdrawal - Progress Note Progress Note: 06/01/17 22:00 Pt presented for alcohol intoxication. Will observe until morning. 06/02/17 00:00 Reviewed radiology, CXR shows no acute processes. 06/02/17 02:00 Pt resting comfortably, in no acute distress. 06/02/17 04:00 RN reports pt is vomiting, Zofran ordered. 06/02/17 04:12 Case discussed with medical device engineer salesperson automobiles, who is aware and agrees with plan. 06/02/17 04:[address] Smith, who is aware and agrees with plan. Accepts pt in to hospitalist service. Pt admitted to remote telemetry for alcohol withdrawal syndrome. 06/02/17 04:54 Reviewed EKG, NSR at [address] bpm[address] Non-specific ST/T wave changes. - Scribe Statement The provider has reviewed the documentation as recorded by the Scribe Maira Pastor All medical record entries made by the Scribe were at my direction and personally dictated by me. I have reviewed the chart and agree that the record accurately reflects my personal performance of the history, physical exam, medical decision making, and the department course for this patient. I have also personally directed, reviewed, and agree with the discharge instructions and disposition. Disposition/Present on Arrival - Present on Arrival Any Indicators Present on Arrival: No History of DVT/PE: No History of Uncontrolled Diabetes: No Urinary Catheter: No History of Decub. Ulcer: No History Surgical Site Infection Following: None - Disposition Have Diagnosis and Disposition been Completed?: Yes Diagnosis: Alcohol withdrawal Disposition: HOSPITALIZED Disposition Time: 04:15 Condition: FAIR
[2017-06-01 21:54] LABS: ATYPICAL LYMPHOCYTE 0 % (0.0-0.0); BAND 0 % (0-2); EOSINOPHIL 1 % (0.0-3.0); LYMPHOCYTE 77 % (22.0-35.0); MONOCYTE 7 % (1.0-6.0); NEUTROPHIL 15 % (50.0-70.0)
[2017-06-01 21:55] LABS: PLATELET ESTIMATE NORMAL (NORMAL); STOMATOCYTE SLIGHT
[2017-06-01 22:08] LABS: ALB/GLOB RATIO 1.2 (1.1-1.8); ALBUMIN 4.6 g/dL (3.0-4.8); ALT/SGPT 62 U/L (7-56); AMYLASE 66 U/L (35-125); AST/SGOT 147 U/L (15-59); BLOOD UREA NITROGEN 18 mg/dL (7-21); CALCIUM 8.6 mg/dL (8.4-10.5); GFR AFRICAN-AMERICAN > 60; GFR NON-AFRICAN AMERICAN > 60; LIPASE 181 U/L (23-300)
[2017-06-01 22:19] LABS: TROPONIN I 0.03 ng/mL
[2017-06-01 22:59] LABS: CK-MB 2.1 ng/mL (0.0-3.6)
[2017-06-02 00:14] LABS: URINE BILIRUBIN NEGATIVE (NEGATIVE); URINE BLOOD NEGATIVE (NEGATIVE); URINE GLUCOSE (UA) NEGATIVE (NEGATIVE); URINE LEUKOCYTE ESTERASE NEGATIVE Leu/uL (NEGATIVE); URINE NITRATE NEGATIVE (NEGATIVE); URINE PROTEIN NEGATIVE mg/dL (<30 mg/dL); URINE UROBILINOGEN 0.2 E.U./dL (<1 E.U./dL)
[2017-06-02 00:23] LABS: URINE COLOR YELLOW (YELLOW)
[2017-06-02 00:24] LABS: URINE APPEARANCE CLEAR (CLEAR)
[2017-06-02] MEDS ORDERED: Multivitamin (MVI) 10 ML, Thiamine 100 MG, Folic Acid 1 MG in Sodium Chloride 0.9% 1,00... IV ONE (04:50)
[2017-06-02] MEDS: Sodium Chloride 0.9% 1,000 ML IV SCH ×2 (04:55→05:10)
--- NOTE | 2017-06-02 05:09 | CP.PCM.HP ---
<DAVIDYULISA - Last Filed: 06/02/17 04:57> History of Present Illness - History of Present Illness History of Present Illness: CC: Nausea/Vomiting/Alcohol Withdrawal HPI: Mr. Kiara Salinas is a 41 year old male, with a past medical history of chronic alcohol abuse, hypertension, and anxiety, who presented to the ED complaining of a two duration of nausea and NBNB vomiting in the setting of alcohol withdrawal. Patient states he had his last drink in the afternoon around 1900 on 05/30 and since has had continuous nausea with multiple episodes of NBNB vomiting and 3 episodes of non-bloody diarrhea. Patient also endorses LLQ abdominal tenderness to palpation that he states gets worse when he has diarrhea. Patient states that he stopped drinking two days ago because his PMD told him that he needed to slow down. He also reports that he hasn't taken any of his home medications in "a few days" because he left them on the bus. Currently, patient reports that his nausea and vomiting are not well controlled and was actively vomiting during interview. He does reports that he hasn't had any diarrhea since he's been in the hospital. Patient denies any fever, chills, headache, dizziness, chest pain, shortness of breath, urinary symptoms, back pain, neck pain, or any other complaints at this time. PMH: Alcohol Abuse/Withdrawal, HTN, and Anxiety PSH: Ankle repair Family History: None per patient Social History: Denies tobacco or illicit drug use; endorses drinking 1 pint of vodka and 1-2 beers daily Allergies: NKDA Home Medications: Norvasc, Gabapentin, and Paxil Present on Admission - Present on Admission Any Indicators Present on Admission: No Review of Systems - Review of Systems Review of Systems: Please refer to HPI Past Patient History - Infectious Disease Hx of Infectious Diseases: None - Tetanus Immunizations Tetanus Immunization: Unknown - Past Medical History & Family History Past Medical History?: Yes - Past Social History Smoking Status: Current Some Days Smoker - CARDIAC Hx Hypertension: Yes - PULMONARY Hx Respiratory Disorders: No Hx Chronic Obstructive Pulmonary Disease (COPD): No - NEUROLOGICAL Hx Neurological Disorder: Yes Hx Dizziness: Yes Other/Comment: neuropathy - HEENT Hx HEENT Problems: No Hx Blind: No Hx Cataracts: No Hx Deafness: No Hx Difficulty Chewing: No Hx Epistaxis: No Hx Glaucoma: No Hx Macular Degeneration: No - RENAL Hx Chronic Kidney Disease: No Hx Renal Failure: No - ENDOCRINE/METABOLIC Hx Endocrine Disorders: No - HEMATOLOGICAL/ONCOLOGICAL Hx Blood Disorders: No - INTEGUMENTARY Hx Dermatological Problems: No - MUSCULOSKELETAL/RHEUMATOLOGICAL Hx Falls: No - GASTROINTESTINAL Hx Gastrointestinal Disorders: Yes Hx Gastroesophageal Reflux: Yes - GENITOURINARY/GYNECOLOGICAL Hx Genitourinary Disorders: No - PSYCHIATRIC Hx Psychophysiologic Disorder: Yes (ETOH, substance abuse,SMOKES CIGARETTES) Hx Substance Use: No (denies) - SURGICAL HISTORY Hx Musculoskeletal Surgery: Yes (RIGHT FOOT SXrod and screws) Hx Orthopedic Surgery: Yes - ANESTHESIA Hx Anesthesia: Yes Hx Anesthesia Reactions: No Hx Malignant Hyperthermia: No Meds Allergies/Adverse Reactions: Allergies Allergy/AdvReac Type Severity Reaction Status Date / Time No Known Allergies Allergy Verified 04/17/17 16:38 Physical Exam - Constitutional Appears: No Acute Distress - Head Exam Head Exam: NORMAL INSPECTION, NORMOCEPHALIC - Eye Exam Eye Exam: Conjunctival injection, EOMI, Normal appearance, PERRL - ENT Exam ENT Exam: Mucous Membranes Moist, Normal Exam - Neck Exam Neck exam: Positive for: Full Rom, Normal Inspection. Negative for: Lymphadenopathy, Meningismus, Tenderness - Respiratory Exam Respiratory Exam: Clear to Auscultation Bilateral, NORMAL BREATHING PATTERN. absent: Rales, Rhonchi, Wheezes, Respiratory Distress - Cardiovascular Exam Cardiovascular Exam: REGULAR RHYTHM, RRR, +S1, +S2. absent: Tachycardia, Systolic Murmur - GI/Abdominal Exam GI & Abdominal Exam: Normal Bowel Sounds, Soft, Tenderness. absent: Distended, Firm, Guarding Additional comments: LLQ TTP - Exam Exam: absent: Bladder Distension - Extremities Exam Extremities exam: Positive for: normal capillary refill, normal inspection, pedal pulses present. Negative for: calf tenderness, pedal edema - Neurological Exam Neurological exam: Alert, Oriented x3 - Psychiatric Exam Psychiatric exam: Normal Affect, Normal Mood - Skin Skin Exam: Dry, Intact, Normal Color, Warm Results - Vital Signs Recent Vital Signs: Last Vital Signs Temp 98.6 F 06/01/17 19:33 Pulse 86 06/01/17 19:33 Resp 20 06/01/17 19:33 BP 124/94 H 06/01/17 19:33 Pulse Ox 98 06/01/17 19:33 - Labs Result Diagrams: 06/01/17 20:20 08/05/17 21:30 Labs: Laboratory Results - last 24 hr 06/02/17 00:05 Urine Color Yellow Urine Appearance Clear Urine pH 6.0 Ur Specific [place] 1.025 Urine Protein Negative Urine Glucose (UA) Negative Urine Ketones Negative Urine Blood Negative Urine Nitrate Negative Urine Bilirubin Negative Urine Urobilinogen 0.2 Ur Leukocyte Esterase Negative Assessment & Plan - Assessment and Plan (Free Text) Assessment: 41 year old male, with a past medical history of chronic alcohol abuse, hypertension, and anxiety, who presented to the ED complaining of a two duration of nausea and NBNB vomiting in the setting of alcohol withdrawal Plan: 1. Nausea/Vomiting -Zofran 4mg Q4H PRN -IVF: NS at 100mls/hr -Lipase WNL -afebrile, normotensive, HR wnl and no leukocytosis -cont to monitor clinically 2. Alcohol Withdrawal -alcohol level was found to be 164 -Librium 25mg TID -Ativan 1mg Q3H -Banana Bag in NS -IVF: NS at 100mls/hr after banana bag -CIWA protocol -aspiration, seizure and fall precautions -EKG, mag, phos and UDS pending 3. Diarrhea -low likelihood of infectious etiology -Imodium PRN -IVF: NS at 100mls/hr 4. Hyperkalemia -K+ at 5.1 on 06/01 at 2020 -will await AM labs to assess need for intervention 5. History of HTN -cont norvasc 6. History of anxiety/depression -cont paxil and gabapentin 7. GI/DVT Prophylaxis -protonix/scd's Patient seen and case discussed in detail with attending, Dr. Smith. - Date & Time Date: 06/02/17 Time: 05:10 <Sarah FRANKS,Tate - Last Filed: 06/03/17 09:42> Results - Vital Signs Recent Vital Signs: Last Vital Signs Temp 97.8 F 06/02/17 16:58 Pulse 96 H 06/02/17 18:00 Resp 20 06/02/17 16:58 BP 128/95 H 06/02/17 16:58 Pulse Ox 98 06/02/17 16:58 - Labs Result Diagrams: 06/03/17 07:15 06/02/17 09:00 Labs: Laboratory Results - last 24 hr 06/02/17 06/03/17 09:00 07:15 WBC 2.8 L* RBC 3.99 Hgb 11.6 L Hct 34.7 L MCV 87.0 MCH 29.1 MCHC 33.4 RDW 13.9 Plt Count 128 MPV 11.2 H Troponin I 0.01 D Attending/Attestation - Attestation I have personally seen and examined this patient.: Yes I have fully participated in the care of the patient.: Yes I have reviewed all pertinent clinical information: Yes Notes (Text): -I agree with the above H&P completed by the resident physician with the following additions and/or changes: The patient is a 42 year old man with a history of chronic alcohol abuse and HTN , admitted with recurrent, N/V (non-bilious, non-bloody) and acute alcohol intoxication. The patient's lipase was normal and he also reports acute diarrhea , making acute gastroenteritis a possible etiology for his symptoms. Will treat with IVF's PRN IV Ativan and Librium.
[2017-06-02 06:20] LABS: BARBITURATES, UR NEGATIVE (NEGATIVE); BENZODIAZEPINES, UR POSITIVE (NEGATIVE); OPIATES, UR NEGATIVE (NEGATIVE); PHENCYCLIDINE, UR NEGATIVE (NEGATIVE)
[2017-06-02 09:11] LABS: BASO # 0.03 K/mm3 (0.0-2.0); EOS % 0.3 % (1.5-5.0); GRAN # 1.11 (1.4-6.5); GRAN % 37.2 % (50.0-68.0); LYMPH # 1.4 (1.2-3.4); LYMPH % 47.7 % (22.0-35.0); MEAN CELL VOLUME 86.6 fL (80.0-105.0); MEAN CORPUSCULAR HGB CONC 35.8 g/dl (31.0-37.0); MEAN PLATELET VOLUME 10.5 fl (7.0-11.0); MONO # 0.4 (0.1-0.6); MONO % 13.8 % (1.0-6.0); PLATELET COUNT 142 10^3/uL (120.0-450.0); RBC 4.19 10^6/uL (3.5-6.1); RED CELL DISTRIBUTION WIDTH 14.1 % (11.5-14.5)
[2017-06-02 09:26] LABS: ALB/GLOB RATIO 1.1 (1.1-1.8); ALBUMIN 3.8 g/dL (3.0-4.8); ALT/SGPT 103 U/L (7-56); AST/SGOT 116 U/L (15-59); BLOOD UREA NITROGEN 15 mg/dL (7-21); CALCIUM 8.5 mg/dL (8.4-10.5); GFR AFRICAN-AMERICAN > 60; GFR NON-AFRICAN AMERICAN > 60
[2017-06-02 09:27] LABS: MAGNESIUM 1.2 mg/dL (1.7-2.2)
[2017-06-02] MEDS ORDERED: Magnesium Sulfate 2 GM in Sodium Chloride 0.9% 100 ML IVPB ONE (09:46)
--- NOTE | 2017-06-02 10:05 | CARD ---
APPROVED REPORT EKG Measurement Heart [id number] <Conclusion> Normal sinus rhythm Minimal voltage criteria for LVH, may be normal variant Early repolarization No change
--- NOTE | 2017-06-02 12:49 | RAD ---
HISTORY: abd pain COMPARISON: 04/17/2017 FINDINGS: LUNGS: No active pulmonary disease. PLEURA: No significant pleural effusion identified, no pneumothorax apparent. CARDIOVASCULAR: Normal. OSSEOUS STRUCTURES: No significant abnormalities. VISUALIZED UPPER ABDOMEN: Normal. OTHER FINDINGS: None. IMPRESSION: No active disease.
[2017-06-02] MEDS: Multivitamin (MVI) 10 ML, Thiamine 100 MG, Folic Acid 1 MG in Sodium Chloride 0.9% 1,00... IV SCH ×2 (13:31→23:30)
[2017-06-03 07:41] LABS: HEMOGLOBIN 11.6 gm/dL (14.0-18.0); MEAN CORPUSCULAR HEMOGLOBIN 29.1 pg (25.0-35.0); MEAN CORPUSCULAR HGB CONC 33.4 g/dl (31.0-37.0); MEAN PLATELET VOLUME 11.2 fl (7.0-11.0); PLATELET COUNT 128 10^3/uL (120.0-450.0); RBC 3.99 10^6/uL (3.5-6.1); RED CELL DISTRIBUTION WIDTH 13.9 % (11.5-14.5)
[2017-06-03 07:52] LABS: WHITE BLOOD COUNT 2.8 10^3/ul (4.5-11.0)
[2017-06-03 09:49] LABS: LYMPHOCYTE 54 % (22.0-35.0); MONOCYTE 9 % (1.0-6.0); NEUTROPHIL 37 % (50.0-70.0); PLATELET ESTIMATE LOW (NORMAL)
[2017-06-03 09:50] LABS: LARGE PLATELETS PRESENT
[2017-06-03 10:01] LABS: ALB/GLOB RATIO 1.2 (1.1-1.8); ALBUMIN 3.4 g/dL (3.0-4.8); ALT/SGPT 105 U/L (7-56); AST/SGOT 138 U/L (15-59); BLOOD UREA NITROGEN 6 mg/dL (7-21); CALCIUM 8.3 mg/dL (8.4-10.5); GFR AFRICAN-AMERICAN > 60; GFR NON-AFRICAN AMERICAN > 60
[2017-06-03] MEDS ORDERED: Potassium Chloride 40 mEq/30 ml LIQ UD PO ONE (11:01)
--- NOTE | 2017-06-03 11:32 | CP.PCM.PN ---
<Jackelyn Breen - Last Filed: 06/03/17 11:42> Subjective - Date & Time of Evaluation Date of Evaluation: 06/03/17 Time of Evaluation: 07:00 - Subjective Subjective: Patient seen and examined at bedside. Per nursing no acute events overnight. Patient reports still having LLQ abd pain. Tolerating regular diet, reports diarrhea has resolved. Denies visual/auditory hallucinations. Denies any nausea , vomiting, fevers, chills, headache, dizziness, cp, sob, urinary symptoms. Objective - Vital Signs/Intake and Output Vital Signs (last 24 hours): Temp Pulse Resp BP Pulse Ox 97.8 F 96 H 20 129/91 H 98 06/02/17 16:58 06/02/17 18:00 06/02/17 16:58 06/03/17 10:24 06/02/17 16:58 Intake and Output: 06/03/17 06/03/17 06:59 18:59 Intake Total 780 Balance 780 - Medications Medications: Current Medications Amlodipine Besylate (Norvasc) 5 mg PO DAILY [facility] Last Admin: 06/03/17 10:24 Dose: 5 mg Chlordiazepoxide (Librium) 25 mg PO BID [facility] PRN Reason: Protocol Gabapentin (Neurontin) 400 mg PO TID ALEXANDRA PRN Reason: Protocol Last Admin: 06/03/17 10:24 Dose: 400 mg Multivitamins/Vitamin C 10 ml/Thiamine HCl 100 mg/ Folic Acid 1 mg/ Sodium Chloride 1,011.2 mls @ 100 mls/hr IV .Q10H7M [facility] Last Admin: 06/02/17 23:30 Dose: 100 mls/hr Loperamide HCl (Imodium) 2 mg PO QID PRN PRN Reason: Diarrhea Last Admin: 06/02/17 13:28 Dose: 2 mg Lorazepam (Ativan) 1 mg IVP Q2H PRN; Protocol PRN Reason: Agitation Ondansetron HCl (Zofran Inj) 4 mg IVP Q4H PRN PRN Reason: Nausea/Vomiting Last Admin: 06/02/17 09:02 Dose: 4 mg Pantoprazole Sodium (Protonix Inj) 40 mg IVP DAILY [facility] Last Admin: 06/03/17 10:25 Dose: 40 mg Paroxetine HCl (Paxil) 10 mg PO HS [facility] Last Admin: 06/02/17 22:10 Dose: 10 mg - Labs Labs: 06/03/17 07:15 06/03/17 07:15 - Constitutional Appears: Well, No Acute Distress - Head Exam Head Exam: ATRAUMATIC, NORMAL INSPECTION - Eye Exam Eye Exam: EOMI, Normal appearance Pupil Exam: NORMAL ACCOMODATION - ENT Exam ENT Exam: Mucous Membranes Moist - Neck Exam Neck Exam: Full ROM - Respiratory Exam Respiratory Exam: Clear to Ausculation Bilateral, NORMAL BREATHING PATTERN. absent: Rales, Rhonchi, Wheezes - Cardiovascular Exam Cardiovascular Exam: REGULAR RHYTHM, +S1, +S2 - GI/Abdominal Exam GI & Abdominal Exam: Soft, Tenderness. absent: Guarding, Rigid Additional comments: Mild tenderness in LLQ on palpation noted - Extremities Exam Extremities Exam: Full ROM. absent: Normal Inspection - Back Exam Back Exam: NORMAL INSPECTION - Neurological Exam Neurological Exam: Alert, Awake, Oriented x3 - Psychiatric Exam Psychiatric exam: Normal Affect, Normal Mood - Skin Skin Exam: Normal Color, Warm Assessment and Plan - Assessment and Plan (Free Text) Assessment: 41 year old male, with a past medical history of chronic alcohol abuse, hypertension, and anxiety, who presented to the ED complaining of a two duration of nausea and NBNB vomiting in the setting of alcohol withdrawal Plan: 1. Alcohol Withdrawal -Alcohol level on admission was found to be 164 -Will taper Librium 25mg BID -Ativan 1mg Q2H prn agitation -Continue Banana Bag in NS -Zofran prn nausea -CIWA protocol, aspiration, seizure and fall precautions -UDS positive for Cocaine and Benzos 2. Transaminitis -LFTs slightly worsening -Will taper Librium today, 25mg BID -Continue to monitor 3. Neutropenia 2/2 bone marrow suppression, alcohol abuse -WBC 2.8 today -Will continue to montor 4. Diarrhea -Resolved -Encourage PO hydration 5. Hypokalemia -Hyperkalemic on admission initially -K+ today 3.4, will replete with KCl 40meq PO soln -F/U am labs 6. Hypomagnesemia -Mg 1.2 yesterday, repleted with 2gm mag/NS -AM mag levels still pending 7. History of HTN -Cont Norvasc 8. History of anxiety/depression -Cont Paxil and Gabapentin 9. GI/DVT Prophylaxis -Protonix/scd's Jackelyn Breen, PGY-1 <Addie Melendez - Last Filed: 06/03/17 13:54> Objective - Vital Signs/Intake and Output Vital Signs (last 24 hours): Temp Pulse Resp BP Pulse Ox 97.8 F 96 H 20 129/91 H 98 06/02/17 16:58 06/02/17 18:00 06/02/17 16:58 06/03/17 10:24 06/02/17 16:58 Intake and Output: 06/03/17 06/03/17 06:59 18:59 Intake Total 780 Balance 780 - Medications Medications: Current Medications Amlodipine Besylate (Norvasc) 5 mg PO DAILY [facility] Last Admin: 06/03/17 10:24 Dose: 5 mg Chlordiazepoxide (Librium) 25 mg PO BID ALEXANDRA PRN Reason: Protocol Gabapentin (Neurontin) 400 mg PO TID ALEXANDRA PRN Reason: Protocol Last Admin: 06/03/17 10:24 Dose: 400 mg Multivitamins/Vitamin C 10 ml/Thiamine HCl 100 mg/ Folic Acid 1 mg/ Sodium Chloride 1,011.2 mls @ 100 mls/hr IV .Q10H7M [facility] Last Admin: 06/02/17 23:30 Dose: 100 mls/hr Loperamide HCl (Imodium) 2 mg PO QID PRN PRN Reason: Diarrhea Last Admin: 06/02/17 13:28 Dose: 2 mg Lorazepam (Ativan) 1 mg IVP Q2H PRN; Protocol PRN Reason: Agitation Ondansetron HCl (Zofran Inj) 4 mg IVP Q4H PRN PRN Reason: Nausea/Vomiting Last Admin: 06/02/17 09:02 Dose: 4 mg Pantoprazole Sodium (Protonix Inj) 40 mg IVP DAILY [facility] Last Admin: 06/03/17 10:25 Dose: 40 mg Paroxetine HCl (Paxil) 10 mg PO HS [facility] Last Admin: 06/02/17 22:10 Dose: 10 mg - Labs Labs: 06/03/17 07:15 06/03/17 07:15 Attending/Attestation - Attestation I have personally seen and examined this patient.: Yes I have fully participated in the care of the patient.: Yes I have reviewed all pertinent clinical information, including history, physical exam and plan: Yes Notes (Text): 06/03/17 13:49 42 year old male with past medical history of chronic ETOH abuse, hypertension and anxiety/depression presented with complaint of nausea, abdominal pain and diarrhea which have resolved. He was admitted for alcohol withdrawal. Continue with librium taper and ativan prn. Continue with banana bag. Urine drug screen was positive for cocaine. He was counselled on risks of continued substance abuse. His abdominal pain and nausea have improved. His diarrhea has resolved. His diet was advanced which he is tolerating. Leukopenia likely secondary to alcohol induced bone marrow suppression. Will continue to monitor. Elevated LFTs likely secondary to chronic ETOH abuse. Will continue to monitor. Will replete and repeat lytes. Continue with home medications for hypertension and anxiety/depression. Addie Melendez MD Hospitalist.
[2017-06-03 11:40] LABS: MAGNESIUM 1.7 mg/dL (1.7-2.2)
[2017-06-03] MEDS: Multivitamin (MVI) 10 ML, Thiamine 100 MG, Folic Acid 1 MG in Sodium Chloride 0.9% 1,00... IV SCH (16:01)
[2017-06-04 00:24] VITALS: RESP 18
[2017-06-04] MEDS: Multivitamin (MVI) 10 ML, Thiamine 100 MG, Folic Acid 1 MG in Sodium Chloride 0.9% 1,00... IV SCH (02:23)
[2017-06-04 07:27] LABS: BASO # 0.02 K/mm3 (0.0-2.0); BASO % 0.5 % (0.0-3.0); EOS # 0.1 (0.0-0.7); EOS % 1.3 % (1.5-5.0); GRAN # 2.15 (1.4-6.5); GRAN % 57.6 % (50.0-68.0); HEMOGLOBIN 11.1 g/dL (14.0-18.0); LYMPH # 1.3 (1.2-3.4); LYMPH % 33.4 % (22.0-35.0); MEAN CELL VOLUME 87.7 fl (80.0-105.0); MEAN CORPUSCULAR HEMOGLOBIN 28.5 pg (25.0-35.0); MEAN CORPUSCULAR HGB CONC 32.5 g/dl (31.0-37.0); MEAN PLATELET VOLUME 10.9 fl (7.0-11.0); MONO # 0.3 (0.1-0.6); MONO % 7.2 % (1.0-6.0); PLATELET COUNT 122 10^3/uL (120.0-450.0); RED CELL DISTRIBUTION WIDTH 14.4 % (11.5-14.5); WHITE BLOOD COUNT 3.7 10^3/ul (4.5-11.0)
[2017-06-04 07:37] VITALS: BP 128/90; PULSE 68; TEMP 98; O2SAT 99
[2017-06-04 07:47] LABS: ALB/GLOB RATIO 1.2 (1.1-1.8); ALBUMIN 3.5 g/dL (3.0-4.8); ALT/SGPT 100 U/L (7-56); AST/SGOT 100 U/L (15-59); BLOOD UREA NITROGEN 11 mg/dL (7-21); CALCIUM 8.9 mg/dL (8.4-10.5); GFR AFRICAN-AMERICAN > 60; GFR NON-AFRICAN AMERICAN > 60; MAGNESIUM 1.5 mg/dL (1.7-2.2)
[2017-06-04] MEDS ORDERED: Multivitamin With Minerals Tab PO SCH (08:00)
[2017-06-04] MEDS ORDERED: Magnesium Sulfate 2 GM in Sodium Chloride 0.9% 100 ML IVPB ONE (09:14)
--- NOTE | 2017-06-04 10:39 | CP.PCM.DIS ---
<Jackelyn Breen - Last Filed: 06/04/17 15:12> Provider - Provider Date of Admission: 06/02/17 04:15 Attending physician: Addie Melendez MD Time Spent in preparation of Discharge (in minutes): 31 Hospital Course - Lab Results Lab Results: Most Recent Lab Values WBC 3.7 10^3/ul (4.5-11.0) L D 06/04/17 07:00 RBC 3.90 10^6/uL (3.5-6.1) 06/04/17 07:00 Hgb 11.1 g/dL (14.0-18.0) L 06/04/17 07:00 Hct 34.2 % (42.0-52.0) L 06/04/17 07:00 MCV 87.7 fl (80.0-105.0) 06/04/17 07:00 MCH 28.5 pg (25.0-35.0) 06/04/17 07:00 MCHC 32.5 g/dl (31.0-37.0) 06/04/17 07:00 RDW 14.4 % (11.5-14.5) 06/04/17 07:00 Plt Count 122 10^3/uL (120.0-450.0) 06/04/17 07:00 MPV 10.9 fl (7.0-11.0) 06/04/17 07:00 Gran % 57.6 % (50.0-68.0) 06/04/17 07:00 Lymph % (Auto) 33.4 % (22.0-35.0) 06/04/17 07:00 Graves % (Auto) 7.2 % (1.0-6.0) H 06/04/17 07:00 Eos % (Auto) 1.3 % (1.5-5.0) L 06/04/17 07:00 Baso % (Auto) 0.5 % (0.0-3.0) 06/04/17 07:00 Gran # 2.15 (1.4-6.5) 06/04/17 07:00 Lymph # 1.3 (1.2-3.4) 06/04/17 07:00 Graves # 0.3 (0.1-0.6) 06/04/17 07:00 Eos # 0.1 (0.0-0.7) 06/04/17 07:00 Baso # 0.02 K/mm3 (0.0-2.0) 06/04/17 07:00 Neutrophils % (Manual) 37 % (50.0-70.0) L 06/03/17 07:15 Band Neutrophils % 0 % (0-2) 06/01/17 20:20 Lymphocytes % (Manual) 54 % (22.0-35.0) H 06/03/17 07:15 Atypical Lymphs % 0 % (0.0-0.0) 06/01/17 20:20 Monocytes % (Manual) 9 % (1.0-6.0) H 06/03/17 07:15 Eosinophils % (Manual) 1 % (0.0-3.0) 06/01/17 20:20 Platelet Evaluation Low (NORMAL) 06/03/17 07:15 Large Platelets Present 06/03/17 07:15 Stomatocytes Slight 06/01/17 20:20 Sodium 136 mmol/L (132-148) 06/04/17 07:00 Potassium 3.9 mmol/L (3.6-5.0) 06/04/17 07:00 Chloride 102 mmol/L (95-110) 06/04/17 07:00 Carbon Dioxide 27 mmol/L (21-33) 06/04/17 07:00 Anion Gap 11 (10-20) 06/04/17 07:00 BUN 11 mg/dL (7-21) 06/04/17 07:00 Creatinine 0.8 mg/dL (0.5-1.4) 06/04/17 07:00 Est GFR ( Amer) > 60 06/04/17 07:00 Est GFR (Non-Af Amer) > 60 06/04/17 07:00 Random Glucose 96 mg/dL (70-110) 06/04/17 07:00 Calcium 8.9 mg/dL (8.4-10.5) 06/04/17 07:00 Phosphorus 3.0 mg/dL (2.5-4.5) 06/04/17 07:00 Magnesium 1.5 mg/dL (1.7-2.2) L 06/04/17 07:00 Total Bilirubin 0.4 mg/dL (0.2-1.3) 06/04/17 07:00 AST 100 U/L (15-59) H 06/04/17 07:00 ALT 100 U/L (7-56) H 06/04/17 07:00 Alkaline Phosphatase 63 U/L (38-133) 06/04/17 07:00 Lactate Dehydrogenase 3131 U/L (333-699) H 06/01/17 21:30 Total Creatine Kinase 275 U/L (35-230) H 06/01/17 21:30 CK-MB (CK-2) 2.1 ng/mL (0.0-3.6) 06/01/17 21:30 Troponin I 0.01 ng/mL D 06/02/17 09:00 Total Protein 6.4 g/dL (5.8-8.3) 06/04/17 07:00 Albumin 3.5 g/dL (3.0-4.8) 06/04/17 07:00 Globulin 2.9 gm/dL 06/04/17 07:00 Albumin/Globulin Ratio 1.2 (1.1-1.8) 06/04/17 07:00 Amylase 66 U/L (35-125) 06/01/17 21:30 Lipase 181 U/L (23-300) 06/01/17 21:30 Urine Color Yellow (YELLOW) 06/02/17 00:05 Urine Appearance Clear (CLEAR) 06/02/17 00:05 Urine pH 6.0 (4.7-8.0) 06/02/17 00:05 Ur Specific Arena 1.025 (1.005-1.035) 06/02/17 00:05 Urine Protein Negative mg/dL (<30 mg/dL) 06/02/17 00:05 Urine Glucose (UA) Negative mg/dL (NEGATIVE) 06/02/17 00:05 Urine Ketones Negative mg/dL (NEGATIVE) 06/02/17 00:05 Urine Blood Negative (NEGATIVE) 06/02/17 00:05 Urine Nitrate Negative (NEGATIVE) 06/02/17 00:05 Urine Bilirubin Negative (NEGATIVE) 06/02/17 00:05 Urine Urobilinogen 0.2 E.U./dL (<1 E.U./dL) 06/02/17 00:05 Ur Leukocyte Esterase Negative Georges/uL (NEGATIVE) 06/02/17 00:05 Urine Opiates Screen Negative (NEGATIVE) 06/02/17 05:30 Urine Methadone Screen Negative (NEGATIVE) 06/02/17 05:30 Ur Barbiturates Screen Negative (NEGATIVE) 06/02/17 05:30 Ur Phencyclidine Scrn Negative (NEGATIVE) 06/02/17 05:30 Ur Amphetamines Screen Negative (NEGATIVE) 06/02/17 05:30 U Benzodiazepines Scrn Positive (NEGATIVE) H 06/02/17 05:30 U Oth Cocaine Metabols Positive (NEGATIVE) H 06/02/17 05:30 U Cannabinoids Screen Negative (NEGATIVE) 06/02/17 05:30 Alcohol, Quantitative 164 mg/dL (0-10) H 06/01/17 20:20 - Hospital Course Hospital Course: Mr. Kiara Salinas is a 41 year old male, with a past medical history of chronic alcohol abuse, hypertension, and anxiety, who presented to the ED complaining of a two duration of nausea and NBNB vomiting in the setting of alcohol withdrawal. Patient states he had his last drink in the afternoon around 1900 on 05/30 and since has had continuous nausea with multiple episodes of NBNB vomiting and 3 episodes of non-bloody diarrhea. Patient also endorses LLQ abdominal tenderness to palpation that he states gets worse when he has diarrhea. Patient states that he stopped drinking two days ago because his PMD told him that he needed to slow down. He also reports that he hasn't taken any of his home medications in "a few days" because he left them on the bus. Patient was admitted for alcohol withdrawal. He was monitored on telemetry. Patient was started on a Librium taper and banana bag. Ativan was ordered prn for agitation. CIWA protocol, seizure, fall, aspiration precautions were in place. Patient initially was nauseous and was having diarrhea. Patient was given zofran and started on immodium. GI symptoms improved. For HTN, Norvasc was continued. For anxiety/depression, Paxil was continued. Patient was also hypokalemia and hypomagnesemic, potassium and mag was repleated as needed. Patient presented with transamitis which began to improve. As withdrawal symptoms started to resolve, patient was transitioned to PO folic acid, multivitamins and thiamine. Patient diet was advanced as tolerated. On day of discharge, Patient was ambulating steadily without assistance, tolerating diet. Tremors resolved. Denied visual/auditory hallucinations. Abdominal pain had also improved. He was medically stable prior to discharge. He was discharged with prescription for Librium 10mg BID x 1 day. Patient instructed to followup with PMD within one week. All questions/concerns addressed. Patient was extensively counseled on alcohol cessation. Patient informed that symptoms will only get worse if he continues to drink. Patient verbalized understanding. Discharge Exam - Head Exam Head Exam: ATRAUMATIC, NORMAL INSPECTION - Eye Exam Eye Exam: EOMI, Normal appearance Pupil Exam: NORMAL ACCOMODATION - ENT Exam ENT Exam: Mucous Membranes Moist - Neck Exam Neck exam: Full Rom - Respiratory Exam Respiratory Exam: Clear to PA & Lateral, NORMAL BREATHING PATTERN. absent: Rales, Rhonchi, Wheezes - Cardiovascular Exam Cardiovascular Exam: REGULAR RHYTHM, +S1, +S2. absent: Systolic Murmur - GI/Abdominal Exam GI & Abdominal Exam: Normal Bowel Sounds, Soft. absent: Guarding, Rebound, Rigid, Tenderness - Extremities Exam Extremities exam: normal capillary refill, normal inspection, pedal pulses present - Back Exam Back exam: NORMAL INSPECTION - Neurological Exam Neurological exam: Alert, CN II-XII Intact, Normal Gait, Oriented x3 - Psychiatric Exam Psychiatric exam: Normal Affect, Normal Mood - Skin Skin Exam: Normal Color, Warm Discharge Plan - Discharge Medications Prescriptions: chlordiazePOXIDE [Chlordiazepoxide HCl] 10 mg PO BID #2 cap - Follow Up Plan Condition: FAIR Disposition: HOME/ ROUTINE Instructions: Acute Nausea and Vomiting (DC), Alcohol Withdrawal (DC) Additional Instructions: Patient is clear for discharge home. Prescription for Librium 10mg BID x 1 day given. Patient to follow up with PCP within 1 week. <Addie Melendez - Last Filed: 06/04/17 15:21> Provider - Provider Date of Admission: 06/02/17 04:15 Attending physician: Addie Melendez MD Time Spent in preparation of Discharge (in minutes): 35 Hospital Course - Lab Results Lab Results: Most Recent Lab Values WBC 3.7 10^3/ul (4.5-11.0) L D 06/04/17 07:00 RBC 3.90 10^6/uL (3.5-6.1) 06/04/17 07:00 Hgb 11.1 g/dL (14.0-18.0) L 06/04/17 07:00 Hct 34.2 % (42.0-52.0) L 06/04/17 07:00 MCV 87.7 fl (80.0-105.0) 06/04/17 07:00 MCH 28.5 pg (25.0-35.0) 06/04/17 07:00 MCHC 32.5 g/dl (31.0-37.0) 06/04/17 07:00 RDW 14.4 % (11.5-14.5) 06/04/17 07:00 Plt Count 122 10^3/uL (120.0-450.0) 06/04/17 07:00 MPV 10.9 fl (7.0-11.0) 06/04/17 07:00 Gran % 57.6 % (50.0-68.0) 06/04/17 07:00 Lymph % (Auto) 33.4 % (22.0-35.0) 06/04/17 07:00 Graves % (Auto) 7.2 % (1.0-6.0) H 06/04/17 07:00 Eos % (Auto) 1.3 % (1.5-5.0) L 06/04/17 07:00 Baso % (Auto) 0.5 % (0.0-3.0) 06/04/17 07:00 Gran # 2.15 (1.4-6.5) 06/04/17 07:00 Lymph # 1.3 (1.2-3.4) 06/04/17 07:00 Graves # 0.3 (0.1-0.6) 06/04/17 07:00 Eos # 0.1 (0.0-0.7) 06/04/17 07:00 Baso # 0.02 K/mm3 (0.0-2.0) 06/04/17 07:00 Neutrophils % (Manual) 37 % (50.0-70.0) L 06/03/17 07:15 Band Neutrophils % 0 % (0-2) 06/01/17 20:20 Lymphocytes % (Manual) 54 % (22.0-35.0) H 06/03/17 07:15 Atypical Lymphs % 0 % (0.0-0.0) 06/01/17 20:20 Monocytes % (Manual) 9 % (1.0-6.0) H 06/03/17 07:15 Eosinophils % (Manual) 1 % (0.0-3.0) 06/01/17 20:20 Platelet Evaluation Low (NORMAL) 06/03/17 07:15 Large Platelets Present 06/03/17 07:15 Stomatocytes Slight 06/01/17 20:20 Sodium 136 mmol/L (132-148) 06/04/17 07:00 Potassium 3.9 mmol/L (3.6-5.0) 06/04/17 07:00 Chloride 102 mmol/L (95-110) 06/04/17 07:00 Carbon Dioxide 27 mmol/L (21-33) 06/04/17 07:00 Anion Gap 11 (10-20) 06/04/17 07:00 BUN 11 mg/dL (7-21) 06/04/17 07:00 Creatinine 0.8 mg/dL (0.5-1.4) 06/04/17 07:00 Est GFR ( Amer) > 60 06/04/17 07:00 Est GFR (Non-Af Amer) > 60 06/04/17 07:00 Random Glucose 96 mg/dL (70-110) 06/04/17 07:00 Calcium 8.9 mg/dL (8.4-10.5) 06/04/17 07:00 Phosphorus 3.0 mg/dL (2.5-4.5) 06/04/17 07:00 Magnesium 1.5 mg/dL (1.7-2.2) L 06/04/17 07:00 Total Bilirubin 0.4 mg/dL (0.2-1.3) 06/04/17 07:00 AST 100 U/L (15-59) H 06/04/17 07:00 ALT 100 U/L (7-56) H 06/04/17 07:00 Alkaline Phosphatase 63 U/L (38-133) 06/04/17 07:00 Lactate Dehydrogenase 3131 U/L (333-699) H 06/01/17 21:30 Total Creatine Kinase 275 U/L (35-230) H 08/05/17 21:30 CK-MB (CK-2) 2.1 ng/mL (0.0-3.6) 06/01/17 21:30 Troponin I 0.01 ng/mL D 06/02/17 09:00 Total Protein 6.4 g/dL (5.8-8.3) 06/04/17 07:00 Albumin 3.5 g/dL (3.0-4.8) 06/04/17 07:00 Globulin 2.9 gm/dL 06/04/17 07:00 Albumin/Globulin Ratio 1.2 (1.1-1.8) 06/04/17 07:00 Amylase 66 U/L (35-125) 06/01/17 21:30 Lipase 181 U/L (23-300) 06/01/17 21:30 Urine Color Yellow (YELLOW) 06/02/17 00:05 Urine Appearance Clear (CLEAR) 06/02/17 00:05 Urine pH 6.0 (4.7-8.0) 06/02/17 00:05 Ur Specific Arena 1.025 (1.005-1.035) 06/02/17 00:05 Urine Protein Negative mg/dL (<30 mg/dL) 06/02/17 00:05 Urine Glucose (UA) Negative mg/dL (NEGATIVE) 06/02/17 00:05 Urine Ketones Negative mg/dL (NEGATIVE) 06/02/17 00:05 Urine Blood Negative (NEGATIVE) 06/02/17 00:05 Urine Nitrate Negative (NEGATIVE) 06/02/17 00:05 Urine Bilirubin Negative (NEGATIVE) 06/02/17 00:05 Urine Urobilinogen 0.2 E.U./dL (<1 E.U./dL) 06/02/17 00:05 Ur Leukocyte Esterase Negative Georges/uL (NEGATIVE) 06/02/17 00:05 Urine Opiates Screen Negative (NEGATIVE) 06/02/17 05:30 Urine Methadone Screen Negative (NEGATIVE) 06/02/17 05:30 Ur Barbiturates Screen Negative (NEGATIVE) 06/02/17 05:30 Ur Phencyclidine Scrn Negative (NEGATIVE) 06/02/17 05:30 Ur Amphetamines Screen Negative (NEGATIVE) 06/02/17 05:30 U Benzodiazepines Scrn Positive (NEGATIVE) H 06/02/17 05:30 U Oth Cocaine Metabols Positive (NEGATIVE) H 06/02/17 05:30 U Cannabinoids Screen Negative (NEGATIVE) 06/02/17 05:30 Alcohol, Quantitative 164 mg/dL (0-10) H 06/01/17 20:20 Attending/Attestation - Attestation I have personally seen and examined this patient.: Yes I have fully participated in the care of the patient.: Yes I have reviewed all pertinent clinical information, including history, physical exam and plan: Yes Notes (Text): 06/04/17 15:19 42 year old male with past medical history of chronic ETOH abuse, hypertension and anxiety/depression presented with complaint of nausea, abdominal pain and diarrhea which have resolved. He was admitted for alcohol withdrawal with librium taper and ativan prn. He was counselled on alcohol abstinence. Urine drug screen was positive for cocaine. He was counselled on risks of continued substance abuse. His abdominal pain and nausea have improved. His diarrhea has resolved. His diet was advanced which he is tolerating. Leukopenia likely secondary to alcohol induced bone marrow suppression. Elevated LFTs likely secondary to chronic ETOH abuse which also improved. Patient is discharged home to follow up with pmd. Follow up with [facility]. Counselled on alcohol abstinence. Counselled on risks of continued substance abuse. Addie Melendez MD Hospitalist.
== END 2017-06-04 13:25 | disposition home or self-care (01) | DRG 750 ==
LOC: ED 19:17 → EROBSV 22:00 → UNDOADMOB 06-02 01:06 → OBSVTOIN 06-02 04:15 → ERH 06-02 05:03 → 3RNO 06-02 06:58
PROVIDERS: ADMIT Internal Medicine; ATTEND Internal Medicine
DX: F10.239 Alcohol dependence with withdrawal, unspecified (principal); E87.5 Hyperkalemia; D70.8 Other neutropenia; E83.42 Hypomagnesemia; I10 Essential (primary) hypertension; F32.9 Major depressive disorder, single episode, unspecified; F41.9 Anxiety disorder, unspecified; R19.7 Diarrhea, unspecified; Y90.6 Blood alcohol level of 120-199 mg/100 ml

== ENCOUNTER 2017-06-18 11:50 | Emergency (ER) | payer MEDICAID ==
[2017-06-18 11:59] VITALS: RESP 16; TEMP 99.4; O2SAT 97
[2017-06-18 12:00] VITALS: BMI 20.6
[2017-06-18] MEDS ORDERED: Sodium Chloride 0.9% 1,000 ML IV STA (12:02)
[2017-06-18] MEDS ORDERED: DiphenhydrAMINE 50 mg/ml Inj IVP STA (12:03)
--- NOTE | 2017-06-18 12:05 | ED PDOC ---
Arrival/HPI - General Time Seen by Provider: 06/18/17 12:01 Historian: Patient - History of Present Illness Narrative History of Present Illness (Text): 06/18/17 12:01 42 y/o male, pmh including gerd/htn, psychiatric history including alcohol abuse , c/o fatigue/nausea/vomiting and epigastric abdominal pain after walking 8 blocks under the hot sun. Pt. stated that he has been walking for 1-2 hours under the hot sun, drink a lot of water, feeling fatigue and tire, started to have nausea and vomiting which resulted the abdominal pain, no headache, no night sweat, no chest pain or shortness of breath, no palpitation, no rash, no other medical or psychological complaints. Past Medical History - Provider Review Nursing Documentation Reviewed: Yes - Infectious Disease Hx of Infectious Diseases: None - Tetanus Immunization Tetanus Immunization: Unknown - Reproductive Currently : No - Past Medical History Past Medical History: No Previous - Cardiac Hx Hypertension: Yes - Pulmonary Hx Respiratory Disorders: No Hx Chronic Obstructive Pulmonary Disease (COPD): No - Neurological Hx Neurological Disorder: Yes Hx Dizziness: Yes Other/Comment: neuropathy - HEENT Hx HEENT Disorder: No Hx Blind: No Hx Cataracts: No Hx Deafness: No Hx Difficulty Chewing: No Hx Epistaxis: No Hx Glaucoma: No Hx Macular Degeneration: No - Renal Hx Renal Disorder: No Hx Renal Failure: No - Endocrine/Metabolic Hx Endocrine Disorders: No - Hematological/Oncological Hx Blood Disorders: No - Integumentary Hx Dermatological Disorder: No - Musculoskeletal/Rheumatological Hx Falls: No - Gastrointestinal Hx Gastrointestinal Disorders: Yes Hx Gastroesophageal Reflux: Yes - Genitourinary/Gynecological Hx Genitourinary Disorders: No - Psychiatric Hx Psychophysiologic Disorder: Yes (ETOH, substance abuse,SMOKES CIGARETTES) Hx Substance Use: No (denies) - Past Surgical History Past Surgical History: Non-Contributing - Surgical History Hx Musculoskeletal Surgery: Yes (RIGHT FOOT SXrod and screws) Hx Orthopedic Surgery: Yes - Anesthesia Hx Anesthesia: Yes Hx Anesthesia Reactions: No Hx Malignant Hyperthermia: No - Suicidal Assessment Feels Threatened In Home Enviroment: No Family/Social History - Physician Review Nursing Documentation Reviewed: Yes Family/Social History: Unknown Family HX Smoking Status: Current Some Days Smoker Hx Alcohol Use: Yes (DRINKS PINT OF VODKA AND BEER DAILY) Hx Substance Use: No (denies) Substance used: marijuana & coaine Hx Substance Use Treatment: No Allergies/Home Meds Allergies/Adverse Reactions: Allergies No Known Allergies Allergy (Verified 06/18/17 12:11) Review of Systems - Review of Systems Constitutional: Fatigue. absent: Fevers Eyes: absent: Vision Changes, Photophobia ENT: absent: Hearing Changes, Tinnitus, Epistaxis Respiratory: absent: SOB, Cough Cardiovascular: absent: Chest Pain Gastrointestinal: Abdominal Pain, Nausea, Vomiting. absent: Diarrhea Skin: absent: Rash, Pruritis Neurological: absent: Headache, Dizziness Physical Exam Vital Signs Reviewed: Yes Vital Signs Temp Pulse Resp BP Pulse Ox 06/18/17 11:58 99.4 F 75 16 124/89 97 Temperature: Afebrile Blood Pressure: Normal Pulse: Regular Respiratory Rate: Normal Appearance: Positive for: Well-Appearing, Non-Toxic Pain Distress: None Mental Status: Positive for: Alert and Oriented X 3 - Systems Exam Head: Present: Atraumatic, Normocephalic Pupils: Present: PERRL Extroacular Muscles: Present: EOMI Conjunctiva: Present: Normal Mouth: Present: Moist Mucous Membranes Neck: Present: Normal Range of Motion Respiratory/Chest: Present: Clear to Auscultation, Good Air Exchange. No: Respiratory Distress, Accessory Muscle Use Cardiovascular: Present: Regular Rate and Rhythm, Normal S1, S2. No: Murmurs Abdomen: Present: Tenderness (+epigastric tenderness, negative pizano), Normal Bowel Sounds. No: Distention, Peritoneal Signs Back: Present: Normal Inspection. No: CVA Tenderness Upper Extremity: Present: Normal Inspection. No: Cyanosis, Edema Lower Extremity: Present: Normal Inspection. No: Edema Neurological: Present: GCS=15, CN II-XII Intact, Speech Normal Skin: Present: Warm, Dry, Normal Color. No: Rashes Psychiatric: Present: Alert, Oriented x 3, Normal Insight, Normal Concentration Medical Decision Making ED Course and Treatment: 06/18/17 12:06 -labs -IVF benadryl/ativan/antiemetic -Observe and reassess 06/18/17 13:40 -NSR @ 73 BPM, no ST elevation or depression, no T wave inversion, early repolarization noted on the anterior lateral leads. -Labs are non-significant -Pt. feels completely relief with the IV medications and IVF, labs and ekg discussed. -Pt. has no tremors or tongue fasciculations, vitally stable, no nausea or vomiting, no diarrhea, no facial twitching. -Discharge home with pepcid, zofran, stay hydrated, bed rest, follow up with your own pmd and GI within 2 days, return to the ER for any new or worsening signs or symptoms, avoid walking in the hot weather. - Lab Interpretations Lab Results: 06/18/17 12:59 06/18/17 12:59 Lab Results 06/18/17 12:59: Sodium 143, Potassium 3.8, Chloride 104, Carbon Dioxide 25, Anion Gap 18, BUN 18, Creatinine 0.9, Est GFR ( Amer) > 60, Est GFR (Non- Af Amer) > 60, Random Glucose 80, Calcium 9.0, Total Bilirubin 0.4, AST 48, ALT 58 H, Alkaline Phosphatase 62, Total Creatine Kinase 152, Total Protein 7.1, Albumin 4.3, Globulin 2.9, Albumin/Globulin Ratio 1.5, Lipase 102 06/18/17 12:59: WBC 3.5 L, RBC 3.74, Hgb 10.8 L, Hct 33.4 L, MCV 89.3, MCH 28.9 , MCHC 32.3, RDW 14.8 H, Plt Count 209, MPV 10.3, Gran % 60.0, Lymph % (Auto) 32.2, [place] % (Auto) 7.2 H, Eos % (Auto) 0.3 L, Baso % (Auto) 0.3, Gran # 2.09, Lymph # 1.1 L, [place] # 0.3, Eos # 0.0, Baso # 0.01 I have reviewed the lab results: Yes Interpretation: No clinic. lab abnormalty - EKG Interpretation EKG Interpretation (Text): 06/18/17 13:39 NSR @ 73 BPM, no ST elevation or depression, no T wave inversion, early repolarization noted on the anterior lateral leads. Interpreted by ED Physician: Yes Type: 12 lead EKG - Medication Orders Current Medication Orders: Discontinued Medications Diphenhydramine HCl (Benadryl) 25 mg IVP STAT STA Stop: 06/18/17 12:04 Last Admin: 06/18/17 12:55 Dose: 25 mg Sodium Chloride (Sodium Chloride 0.9%) 1,000 mls @ 999 mls/hr IV .Q1H1M STA Stop: 06/18/17 13:02 Last Admin: 06/18/17 12:54 Dose: 999 mls/hr Lorazepam (Ativan) 1 mg IVP ONCE ONE PRN Reason: Protocol Stop: 06/18/17 12:03 Last Admin: 06/18/17 12:54 Dose: 1 mg Ondansetron HCl (Zofran Inj) 4 mg IVP STAT STA Stop: 06/18/17 12:03 Last Admin: 06/18/17 12:54 Dose: 4 mg - PA / CURB WORKER / Resident Statement / has reviewed & agrees with the documentation as recorded. Disposition/Present on Arrival - Present on Arrival Any Indicators Present on Arrival: No History of DVT/PE: No History of Uncontrolled Diabetes: No Urinary Catheter: No History of Decub. Ulcer: No History Surgical Site Infection Following: None - Disposition Have Diagnosis and Disposition been Completed?: Yes Diagnosis: Gastro-esophageal reflux, Fatigue due to excessive exertion Disposition: HOME/ ROUTINE Disposition Time: 13:41 Patient Plan: Discharge Condition: IMPROVED Additional Instructions: -Discharge home with pepcid, zofran, stay hydrated, bed rest, follow up with your own pmd and GI within 2 days, return to the ER for any new or worsening signs or symptoms, avoid walking in the hot weather. Prescriptions: Famotidine [Pepcid] 20 mg PO BID #14 tab Ondansetron [Zofran] 4 mg PO Q8H PRN #10 tab PRN Reason: Nausea/Vomiting Referrals: Griselda Heard MD [Primary Care Provider] - Follow up with primary Garrick oBnilla MD [Staff Provider] - Follow up with primary Forms: WORK NOTE
[2017-06-18 13:08] LABS: BASO # 0.01 K/mm3 (0.0-2.0); BASO % 0.3 % (0.0-3.0); EOS % 0.3 % (1.5-5.0); GRAN # 2.09 (1.4-6.5); HEMATOCRIT 33.4 % (42.0-52.0); LYMPH # 1.1 (1.2-3.4); LYMPH % 32.2 % (22.0-35.0); MEAN CELL VOLUME 89.3 fl (80.0-105.0); MEAN CORPUSCULAR HEMOGLOBIN 28.9 pg (25.0-35.0); MEAN CORPUSCULAR HGB CONC 32.3 g/dl (31.0-37.0); MEAN PLATELET VOLUME 10.3 fl (7.0-11.0); MONO # 0.3 (0.1-0.6); MONO % 7.2 % (1.0-6.0); RED CELL DISTRIBUTION WIDTH 14.8 % (11.5-14.5); WHITE BLOOD COUNT 3.5 10^3/ul (4.5-11.0)
[2017-06-18 13:13] LABS: ALB/GLOB RATIO 1.5 (1.1-1.8); ALKALINE PHOSPHATASE 62 U/L (38-133); ALT/SGPT 58 U/L (7-56); AST/SGOT 48 U/L (15-59); BILIRUBIN,TOTAL 0.4 mg/dL (0.2-1.3); BLOOD UREA NITROGEN 18 mg/dL (7-21); CARBON DIOXIDE 25 mmol/L (21-33); CHLORIDE 104 mmol/L (98-107); GFR AFRICAN-AMERICAN > 60; GLUCOSE,RANDOM 80 mg/dL (70-110); LIPASE 102 U/L (23-300); POTASSIUM 3.8 mmol/L (3.6-5.0); SODIUM 143 mmol/L (132-148); TOTAL PROTEIN 7.1 g/dL (5.8-8.3)
[2017-06-18 13:54] VITALS: BP 122/79; PULSE 74
--- NOTE | 2017-06-18 19:10 | CARD ---
APPROVED REPORT EKG Measurement Heart [id number] <Conclusion> Normal sinus rhythm Moderate voltage criteria for LVH, may be normal variant Borderline ECG
== END 2017-06-18 13:53 | disposition home or self-care (01) ==
LOC: ED 11:50
DX: K21.9 Gastro-esophageal reflux disease without esophagitis (principal); T73.3XXA Exhaustion due to excessive exertion, initial encounter; X30.XXXA Exposure to excessive natural heat, initial encounter
CPT/HCPCS: 80053; 82550; 83690; 85025; 93005; 96374; 96375; 99285; J1200; J2060; J2405; J7040

== ENCOUNTER 2017-06-20 09:47 | Inpatient (IN) | payer MEDICAID ==
[2017-06-20 09:47] VITALS: BMI 20.6
[2017-06-20] MEDS ORDERED: Sodium Chloride 0.9% 1,000 ML IV STA (10:18)
[2017-06-20 10:41] LABS: BASO # 0.01 K/mm3 (0.0-2.0); BASO % 0.3 % (0.0-3.0); EOS % 0.3 % (1.5-5.0); GRAN # 2.64 (1.4-6.5); GRAN % 69.4 % (50.0-68.0); HEMATOCRIT 32.5 % (42.0-52.0); LYMPH # 0.7 (1.2-3.4); LYMPH % 18.7 % (22.0-35.0); MEAN CELL VOLUME 88.3 fl (80.0-105.0); MEAN CORPUSCULAR HEMOGLOBIN 29.3 pg (25.0-35.0); MEAN CORPUSCULAR HGB CONC 33.2 g/dl (31.0-37.0); MEAN PLATELET VOLUME 11.3 fl (7.0-11.0); MONO # 0.4 (0.1-0.6); MONO % 11.3 % (1.0-6.0); RED CELL DISTRIBUTION WIDTH 14.9 % (11.5-14.5); WHITE BLOOD COUNT 3.8 10^3/ul (4.5-11.0)
--- NOTE | 2017-06-20 11:22 | ED PDOC ---
Arrival/HPI <Al Macario - Last Filed: 06/20/17 15:30> - General Historian: Patient <Anne Kelly PA-C - Last Filed: 06/20/17 16:50> - General Chief Complaint: GI Problem Time Seen by Provider: 06/20/17 10:07 - History of Present Illness Narrative History of Present Illness (Text): 06/20/17 11:18 42 y/o male, pmh including gerd/htn, psychiatric history including alcohol abuse , with known multiple visits to the ER for etoh intoxication and abdominal pain , c/o 3 episodes of diarrhea with nausea/vomiting and LLQ abdominal pain which started this AM. Pt reports eating pizza last night, he felt well, then woke up this AM and developed the following symptoms. Pt reports no headache, no night sweat, no chest pain or shortness of breath, no palpitation, no rash, no recent travel / sick contacts, no recent antibiotic use, no h/o abd surgery, reports no other medical or psychological complaints. (Anne Kelly PA-C) Past Medical History - Provider Review Nursing Documentation Reviewed: Yes - Infectious Disease Hx of Infectious Diseases: None - Tetanus Immunization Tetanus Immunization: Unknown - Reproductive Currently : No - Past Medical History Past Medical History: No Previous - Cardiac Hx Hypertension: Yes - Pulmonary Hx Respiratory Disorders: No Hx Chronic Obstructive Pulmonary Disease (COPD): No - Neurological Hx Neurological Disorder: Yes Hx Dizziness: Yes Other/Comment: neuropathy - HEENT Hx HEENT Disorder: No Hx Blind: No Hx Cataracts: No Hx Deafness: No Hx Difficulty Chewing: No Hx Epistaxis: No Hx Glaucoma: No Hx Macular Degeneration: No - Renal Hx Renal Disorder: No Hx Renal Failure: No - Endocrine/Metabolic Hx Endocrine Disorders: No - Hematological/Oncological Hx Blood Disorders: No - Integumentary Hx Dermatological Disorder: No - Musculoskeletal/Rheumatological Hx Falls: No - Gastrointestinal Hx Gastrointestinal Disorders: Yes Hx Gastroesophageal Reflux: Yes - Genitourinary/Gynecological Hx Genitourinary Disorders: No - Psychiatric Hx Psychophysiologic Disorder: Yes (ETOH, substance abuse,SMOKES CIGARETTES) Hx Substance Use: No (denies) - Past Surgical History Past Surgical History: Non-Contributing - Surgical History Hx Musculoskeletal Surgery: Yes (RIGHT FOOT SXrod and screws) Hx Orthopedic Surgery: Yes - Anesthesia Hx Anesthesia: Yes Hx Anesthesia Reactions: No Hx Malignant Hyperthermia: No - Suicidal Assessment Feels Threatened In Home Enviroment: No <Anne Kelly PA-C - Last Filed: 06/20/17 16:50> Family/Social History - Physician Review Nursing Documentation Reviewed: Yes Family/Social History: No Known Family HX Smoking Status: Current Some Days Smoker Hx Alcohol Use: Yes (DRINKS PINT OF VODKA AND BEER DAILY) Hx Substance Use: No (denies) Substance used: marijuana & coaine Hx Substance Use Treatment: No <Anne Kelly PA-C - Last Filed: 06/20/17 16:50> Allergies/Home Meds <Al Macario - Last Filed: 06/20/17 15:30> <Anne Kelly PA-C - Last Filed: 06/20/17 16:50> Allergies/Adverse Reactions: Allergies No Known Allergies Allergy (Verified 06/20/17 10:01) Home Medications: Home Meds Medication Instructions Recorded Confirmed amLODIPine [Norvasc] 5 mg PO DAILY 06/20/17 06/20/17 Review of Systems - Review of Systems Constitutional: Normal. absent: Fatigue, Weight Change, Fevers Respiratory: Normal. absent: SOB, Cough, Sputum Cardiovascular: Normal. absent: Chest Pain, Palpitations, Edema Gastrointestinal: Normal, Abdominal Pain, Diarrhea, Nausea, Vomiting Musculoskeletal: Normal. absent: Arthralgias, Back Pain, Neck Pain Skin: Normal. absent: Rash, Pruritis, Skin Lesions <Anne Kelly PA-C - Last Filed: 06/20/17 16:50> Physical Exam <Al Macario - Last Filed: 06/20/17 15:30> <Anne Kelly PA-C - Last Filed: 06/20/17 16:50> - Physical Exam Narrative Physical Exam (Text): 06/20/17 11:21 GENERAL APPEARANCE: Patient is awake, alert, oriented x 3, in mild painful distress. No tremors noted. SKIN: Warm, dry; (-) cyanosis. EYES: (-) conjunctival pallor, (-) scleral icterus. ENMT: Mucous membranes dry. NECK: (-) tenderness, (-) stiffness, (-) lymphadenopathy. CHEST AND RESPIRATORY: (-) rales, (-) rhonchi, (-) wheezes; breath sounds equal bilaterally. HEART AND CARDIOVASCULAR: (-) irregularity; (-) murmur, (-) gallop. ABDOMEN AND GI: (-) distention. Bowel sounds active; (+) lower abdominal tenderness, (-) guarding, (-) rebound, (-) palpable masses, (-) CVA tenderness. RECTAL: (-) tenderness, (+) brown stool, guiaic (+). Female EMT was present as a pre k lead teacher during the exam. EXTREMITIES: (-) deformity, (-) edema, (+) distal pulses. NEURO AND PSYCH: Mental status as above; (-) focal findings. (Anne Kelly PA-C) Vital Signs Temp Pulse Resp BP Pulse Ox 06/20/17 13:30 79 16 155/98 H 100 06/20/17 12:08 87 18 148/91 H 99 06/20/17 09:57 98.4 F 77 16 157/100 H 100 Medical Decision Making - EKG Interpretation Interpreted by ED Physician: Yes Type: 12 lead EKG <Al Macario - Last Filed: 06/20/17 15:30> - Lab Interpretations I have reviewed the lab results: Yes <Anne Kelly PA-C - Last Filed: 06/20/17 16:50> ED Course and Treatment: 06/20/17 11:22 42 y/o male, pmh including gerd/htn, psychiatric history including alcohol abuse , with known multiple visits to the ER for etoh intoxication and abdominal pain , c/o developing 3 episodes of diarrhea with nausea/vomiting and LLQ abdominal pain which started this AM. Previous medical records reviewed and patient was last evaluated in this emergency room on 06/18/17 for gastro-esophageal reflux and fatigue due to excessive exertion. Of note, pt has had numerous visits to the ER. He has had a recent normal CT A/P w/ IV contrast on 05/01/17. Plan: -- Labs -- IV fluids -- Urinalysis -- Pepcid / Zofran / Toradol -- Pt placed in ED observation (Anne Kelly PA-C) - Lab Interpretations Lab Results: 06/20/17 10:38 06/20/17 10:50 Lab Results 06/20/17 11:42: Urine Color Yellow, Urine Appearance Clear, Urine pH 6.0, Ur Specific [place] >= 1.030, Urine Protein 30 H, Urine Glucose (UA) Negative, Urine Ketones 15 H, Urine Blood Negative, Urine Nitrate Negative, Urine Bilirubin Negative, Urine Urobilinogen 0.2, Ur Leukocyte Esterase Negative, Urine RBC Negative, Urine WBC 1 - 3, Ur Epithelial Cells 0 - 2, Urine Bacteria Few 06/20/17 10:50: Sodium 142, Potassium 3.5 L, Chloride 105, Carbon Dioxide 23, Anion Gap 18, BUN 12, Creatinine 0.8, Est GFR ( Amer) > 60, Est GFR (Non- Af Amer) > 60, Random Glucose 87, Calcium 8.9, Total Bilirubin 0.6, AST 80 H, ALT 65 H, Alkaline Phosphatase 77, Total Protein 6.9, Albumin 4.1, Globulin 2.9 , Albumin/Globulin Ratio 1.4, Lipase 76 06/20/17 10:38: WBC 3.8 L, RBC 3.68, Hgb 10.8 L, Hct 32.5 L, MCV 88.3, MCH 29.3 , MCHC 33.2, RDW 14.9 H, Plt Count 246, MPV 11.3 H, Gran % 69.4 H, Lymph % (Auto ) 18.7 L, [place] % (Auto) 11.3 H, Eos % (Auto) 0.3 L, Baso % (Auto) 0.3, Gran # 2.64, Lymph # 0.7 L, [place] # 0.4, Eos # 0.0, Baso # 0.01 - RAD Interpretation Narrative RAD Interpretations (Text): 06/20/17 13:36 CT A/P w/ IV contrast: FINDINGS: LOWER THORAX: Unremarkable. LIVER: Unremarkable. No gross lesion or ductal dilatation. GALLBLADDER AND BILE DUCTS: Unremarkable. PANCREAS: Unremarkable. No gross lesion or ductal dilatation. SPLEEN: Unremarkable. ADRENALS: Unremarkable. No mass. KIDNEYS AND URETERS: Unremarkable. No hydronephrosis. No solid mass. VASCULATURE: Unremarkable. No aortic aneurysm. BOWEL: There is mild to moderate mural thickening and edema throughout the colon consistent with colitis. APPENDIX: Normal appendix. PERITONEUM: Unremarkable. No free fluid. No free air. LYMPH NODES: Unremarkable. No enlarged lymph nodes. BLADDER: Unremarkable. REPRODUCTIVE: Unremarkable. BONES: No acute fracture. OTHER FINDINGS: None. IMPRESSION: There is mild to moderate mural thickening and edema throughout the colon consistent with colitis. (Robin TERRELL,Anne Arias) Radiology Orders: 06/20/17 12:47 ABD & PELVIS IV CONTRAST ONLY [CT] Stat - Medication Orders Current Medication Orders: Sodium Chloride (Sodium Chloride 0.9%) 1,000 mls @ 150 mls/hr IV .Q6H40M [facility] Last Admin: 06/20/17 15:00 Dose: 150 mls/hr Potassium Chloride (Potassium Chloride 20 Meq/100 Ml) 20 meq in 100 mls @ 50 mls/hr IVPB Q2H ALEXANDRA Stop: 06/20/17 18:44 Last Admin: 06/20/17 15:00 Dose: 50 mls/hr Multivitamins/Vitamin C 10 ml/Thiamine HCl 100 mg/ Folic Acid 1 mg/ Sodium Chloride 1,011.2 mls @ 100 mls/hr IV .Q10H7M ONE Stop: 06/21/17 02:19 Metronidazole (Flagyl) 500 mg in 100 mls @ 100 mls/hr IVPB Q8 ALEXANDRA PRN Reason: Protocol Ceftriaxone Sodium (Rocephin 1 Gram Ivpb) 1 gm in 100 mls @ 100 mls/hr IVPB DAILY [facility] PRN Reason: Protocol Lorazepam (Ativan) 2 mg IVP Q3H PRN; Protocol PRN Reason: Symptoms of alcohol withdrawl Morphine Sulfate (Morphine) 2 mg IVP Q6H PRN PRN Reason: Pain, moderate (4-7) Ondansetron HCl (Zofran Inj) 4 mg IVP Q6H PRN PRN Reason: Nausea/Vomiting Pantoprazole Sodium (Protonix Inj) 40 mg IVP DAILY [facility] Discontinued Medications Famotidine (Pepcid) 20 mg IVP STAT STA Stop: 06/20/17 10:19 Last Admin: 06/20/17 10:37 Dose: 20 mg Sodium Chloride (Sodium Chloride 0.9%) 1,000 mls @ 1,000 mls/hr IV .Q1H STA Stop: 06/20/17 11:17 Last Admin: 06/20/17 10:35 Dose: 1,000 mls/hr Ciprofloxacin (Cipro 400mg/200ml Dsw) 400 mg in 200 mls @ 133.3 mls/hr IVPB STAT STA PRN Reason: Protocol Stop: 06/20/17 15:07 Last Admin: 06/20/17 15:21 Dose: 133.3 mls/hr Metronidazole (Flagyl) 500 mg in 100 mls @ 100 mls/hr IVPB STAT STA PRN Reason: Protocol Stop: 06/20/17 14:36 Last Admin: 06/20/17 14:19 Dose: 100 mls/hr Magnesium Sulfate 2 gm/ Sodium (Chloride) 104 mls @ 102 mls/hr IVPB ONCE ONE Stop: 06/20/17 15:32 Iohexol (Omnipaque 350 100 Ml) Confirm Administered Dose 350 mg .ROUTE .STK-MED ONE Stop: 06/20/17 12:53 Ketorolac Tromethamine (Toradol) 30 mg IVP STAT STA Stop: 06/20/17 10:19 Last Admin: 06/20/17 10:38 Dose: 30 mg Morphine Sulfate (Morphine) 4 mg IVP STAT STA Stop: 06/20/17 12:48 Last Admin: 06/20/17 13:26 Dose: 4 mg Ondansetron HCl (Zofran Inj) 4 mg IVP STAT STA Stop: 06/20/17 10:19 Last Admin: 06/20/17 10:38 Dose: 4 mg Ondansetron HCl (Zofran Inj) 4 mg IVP STAT STA Stop: 06/20/17 12:48 Last Admin: 06/20/17 13:26 Dose: 4 mg ED OBSERVATION <Al Macario - Last Filed: 06/20/17 15:30> Date of observation admission: 06/20/17 Time of observation admission: 10:18 <Anne Kelly PA-C - Last Filed: 06/20/17 16:50> - Observation admission statement Patient is being placed in observation because:: abdominal pain, diarrhea, for IV hydration (Anne Kelly PA-C) - Goals of Observation Goals of observation are:: to monitor pt's signs and symptoms (Anne Kelly PA-C) - Progress Note Progress Note: 06/20/17 12:50 On reevaluation, the patient is laying in bed in mild painful distress, patient continues to complain of lower abdominal pain greatest in the left lower quadrant associated with diarrhea. On exam, abdomen remained soft with lower abdominal tenderness in the left lower quadrant, no guarding, no rebound. No tremors noted at this time. Labs reviewed, considering patient's continued pain CT abdomen and pelvis with IV contrast ordered. Patient medicated with morphine and Zofran IV. 06/20/17 13:36 CT A/P w/ IV contrast: There is mild to moderate mural thickening and edema throughout the colon consistent with colitis. On re-evaluation, pt continue to c /o LLQ pain. On exam, pt still with tenderness to the lower abd, greates in the LLQ with no rebound and no guarding. Patient is stable, no tremors noted. Cipro IV and flagyl IV ordered. NS hydration continued. Etoh level ordered. Call placed to hospitalist and case d/w Dr. Melendez, agrees with plan for inpt admission to remote tele considering pt's known h/o alcoholism. (Anne Kelly PA-C) - PA / [employer] MACHINE OPERATOR / Resident Statement [facility] has reviewed & agrees with the documentation as recorded. <Al Macario - Last Filed: 06/20/17 15:30> - PA / [employer]VER MACHINE OPERATOR / Resident Statement [employer] has reviewed & agrees with the documentation as recorded. <Anne Kelly PA-C - Last Filed: 06/20/17 16:50> Disposition/Present on Arrival <Al Macario - Last Filed: 06/20/17 15:30> - Present on Arrival Any Indicators Present on Arrival: No History of DVT/PE: No History of Uncontrolled Diabetes: No Urinary Catheter: No History of Decub. Ulcer: No History Surgical Site Infection Following: None - Disposition Have Diagnosis and Disposition been Completed?: Yes Disposition Time: 10:18 (Pt was placed in ED observation) Patient Plan: Admission <Anne Kelly PA-C - Last Filed: 06/20/17 16:50> - Disposition Diagnosis: Abdominal pain, Colitis Disposition: HOSPITALIZED Patient Problems: Current Active Problems Problem Status Onset Abdominal pain Acute Colitis Acute Condition: STABLE
[2017-06-20 11:44] LABS: ALB/GLOB RATIO 1.4 (1.1-1.8); ALKALINE PHOSPHATASE 77 U/L (38-133); ALT/SGPT 65 U/L (7-56); AST/SGOT 80 U/L (15-59); BILIRUBIN,TOTAL 0.6 mg/dL (0.2-1.3); BLOOD UREA NITROGEN 12 mg/dL (7-21); CALCIUM 8.9 mg/dL (8.4-10.5); CARBON DIOXIDE 23 mmol/L (21-33); CHLORIDE 105 mmol/L (98-107); GFR AFRICAN-AMERICAN > 60; GLUCOSE,RANDOM 87 mg/dL (70-110); LIPASE 76 U/L (23-300); POTASSIUM 3.5 mmol/L (3.6-5.0); SODIUM 142 mmol/L (132-148); TOTAL PROTEIN 6.9 g/dL (5.8-8.3)
[2017-06-20 11:46] LABS: URINE BILIRUBIN NEGATIVE (NEGATIVE); URINE BLOOD NEGATIVE (NEGATIVE); URINE GLUCOSE (UA) NEGATIVE (NEGATIVE); URINE KETONE 15 mg/dL (NEGATIVE); URINE LEUKOCYTE ESTERASE NEGATIVE Leu/uL (NEGATIVE); URINE PROTEIN 30 mg/dL (<30 mg/dL); URINE UROBILINOGEN 0.2 E.U./dL (<1 E.U./dL)
[2017-06-20 11:47] LABS: URINE APPEARANCE CLEAR (CLEAR); URINE COLOR YELLOW (YELLOW)
[2017-06-20] MEDS ORDERED: Morphine 4 mg/ml ISec IVP STA (12:47)
[2017-06-20 12:51] LABS: URINE EPITHELIAL CELLS 0 - 2 /hpf (0-5); URINE RBC NEGATIVE /hpf (0-2)
[2017-06-20 12:52] LABS: URINE BACTERIA FEW (NEG)
[2017-06-20] MEDS ORDERED: Iohexol 350 MG/100 ML VIAL ONE (12:52)
--- NOTE | 2017-06-20 13:23 | CT ---
PROCEDURE: CT Abdomen and Pelvis with contrast HISTORY: LLQ pain, diarrhea COMPARISON: 05/01/2017 TECHNIQUE: Contrast dose: 100 cc of Omni 350 Radiation dose: Total exam DLP = 264 mGy-cm. This CT exam was performed using one or more of the following dose reduction techniques: Automated exposure control, adjustment of the mA and/or kV according to patient size, and/or use of iterative reconstruction technique. FINDINGS: LOWER THORAX: Unremarkable. LIVER: Unremarkable. No gross lesion or ductal dilatation. GALLBLADDER AND BILE DUCTS: Unremarkable. PANCREAS: Unremarkable. No gross lesion or ductal dilatation. SPLEEN: Unremarkable. ADRENALS: Unremarkable. No mass. KIDNEYS AND URETERS: Unremarkable. No hydronephrosis. No solid mass. VASCULATURE: Unremarkable. No aortic aneurysm. BOWEL: There is mild to moderate mural thickening and edema throughout the colon consistent with colitis. APPENDIX: Normal appendix. PERITONEUM: Unremarkable. No free fluid. No free air. LYMPH NODES: Unremarkable. No enlarged lymph nodes. BLADDER: Unremarkable. REPRODUCTIVE: Unremarkable. BONES: No acute fracture. OTHER FINDINGS: None. IMPRESSION: There is mild to moderate mural thickening and edema throughout the colon consistent with colitis.
[2017-06-20] MEDS ORDERED: metroNIDAZOLE IV 500 mg/100 ml 500 MG/100 ML BAG IVPB STA (13:37)
[2017-06-20] MEDS ORDERED: Ciprofloxacin 400mg/200ml D5W 400 MG/200 ML BAG IVPB STA (13:37)
[2017-06-20] MEDS ORDERED: Magnesium Sulfate 2 GM in Sodium Chloride 0.9% 100 ML IVPB ONE (14:31)
[2017-06-20] MEDS: Sodium Chloride 0.9% 1,000 ML IV SCH ×2 (15:00→21:54)
[2017-06-20] MEDS ORDERED: Morphine 2 mg/ml ISec IVP PRN (16:13)
[2017-06-20] MEDS ORDERED: Multivitamin (MVI) 10 ML, Thiamine 100 MG, Folic Acid 1 MG in Sodium Chloride 0.9% 1,00... IV ONE (16:13)
--- NOTE | 2017-06-20 19:48 | CARD ---
APPROVED REPORT EKG Measurement Heart [id number] [place] [id number] <Conclusion> Normal sinus rhythm Possible Left atrial enlargement Left ventricular hypertrophy Abnormal ECG
--- NOTE | 2017-06-20 20:53 | CP.PCM.HP ---
<MILLIE ORTEGA - Last Filed: 06/20/17 20:45> History of Present Illness - History of Present Illness History of Present Illness: CC: Vomiting and diarrhea, abdominal pain HPI: Pt is a 42 yo M with significant PMH for EtOH abuse, GERD, and HTN, who reports abdominal pain associated with diarrhea x 4 episodes, nausea, and NBNB vomiting that began this morning. Last episode of diarrhea was this morning, last episode of vomiting was in the ED. Patient additionally noted BRBPR when wiping after having a BM. Pt states that abdominal pain is sharp and is localized to LLQ. Patient states that he ate pizza last night and does not believe that he got food poisoning from it. Pt has had numerous admissions in the past for EtOH abuse. Pt has not attempted to cease EtOH use as he drank beer and vodka last night. Pt was seen in the ED where he was given Pepcid, Zofran, and Toradol for pain with some improvement of symptoms. Pt denies recent sick contacts. Pt denies CP, SOB, constipation, chills, fevers, FALCON, dizziness, dysuria, or polyuria. PMD: Félix PMHx: HTN, anxiety, GERD, EtOH abuse PSHx: R ankle surgery Meds: Paxil, Librium, Amlodipine (past few weeks, was accidentally taking Pepcid instead) Allergies: Denies Family hx: Denies Social hx: - smoking occasionally - EtOH abuse, last drink was last night - marijuana and cocaine use - lives with sister Present on Admission - Present on Admission Any Indicators Present on Admission: No Review of Systems - Review of Systems All systems: reviewed and no additional remarkable complaints except (12 point ROS negative other than what is stated in HPI) Past Patient History - Infectious Disease Hx of Infectious Diseases: None - Tetanus Immunizations Tetanus Immunization: Unknown - Past Medical History & Family History Past Medical History?: Yes - Past Social History Smoking Status: Current Some Days Smoker - CARDIAC Hx Hypertension: Yes - PULMONARY Hx Respiratory Disorders: No Hx Chronic Obstructive Pulmonary Disease (COPD): No - NEUROLOGICAL Hx Neurological Disorder: Yes Hx Dizziness: Yes Other/Comment: neuropathy - HEENT Hx HEENT Problems: No Hx Blind: No Hx Cataracts: No Hx Deafness: No Hx Difficulty Chewing: No Hx Epistaxis: No Hx Glaucoma: No Hx Macular Degeneration: No - RENAL Hx Chronic Kidney Disease: No Hx Renal Failure: No - ENDOCRINE/METABOLIC Hx Endocrine Disorders: No - HEMATOLOGICAL/ONCOLOGICAL Hx Blood Disorders: No - INTEGUMENTARY Hx Dermatological Problems: No - MUSCULOSKELETAL/RHEUMATOLOGICAL Hx Falls: No - GASTROINTESTINAL Hx Gastrointestinal Disorders: Yes Hx Gastroesophageal Reflux: Yes - GENITOURINARY/GYNECOLOGICAL Hx Genitourinary Disorders: No - PSYCHIATRIC Hx Psychophysiologic Disorder: Yes (ETOH, substance abuse,SMOKES CIGARETTES) Hx Substance Use: No (denies) - SURGICAL HISTORY Hx Musculoskeletal Surgery: Yes (RIGHT FOOT SXrod and screws) Hx Orthopedic Surgery: Yes - ANESTHESIA Hx Anesthesia: Yes Hx Anesthesia Reactions: No Hx Malignant Hyperthermia: No Meds Allergies/Adverse Reactions: Allergies Allergy/AdvReac Type Severity Reaction Status Date / Time No Known Allergies Allergy Verified 06/20/17 10:01 Physical Exam - Constitutional Appears: No Acute Distress - Head Exam Head Exam: ATRAUMATIC, NORMOCEPHALIC - Eye Exam Eye Exam: EOMI, PERRL - ENT Exam ENT Exam: Mucous Membranes Dry - Neck Exam Neck exam: Positive for: Full Rom. Negative for: Lymphadenopathy, Tenderness, Thyromegaly - Respiratory Exam Respiratory Exam: Clear to Auscultation Bilateral. absent: Rales, Rhonchi, Wheezes - Cardiovascular Exam Cardiovascular Exam: RRR, +S1, +S2. absent: Gallop, Rubs, Systolic Murmur - GI/Abdominal Exam GI & Abdominal Exam: Soft, Tenderness (LLQ). absent: Guarding, Organomegaly, Rebound, Rigid - Extremities Exam Extremities exam: Positive for: normal inspection - Back Exam Back exam: NORMAL INSPECTION - Neurological Exam Neurological exam: Alert, CN II-XII Intact, Oriented x3 - Psychiatric Exam Psychiatric exam: Normal Affect, Normal Mood - Skin Skin Exam: Dry, Intact, Normal Color, Warm Results - Vital Signs Recent Vital Signs: Last Vital Signs Temp 98.8 F 06/20/17 16:00 Pulse 67 06/20/17 18:01 Resp 20 06/20/17 16:00 BP 159/98 H 06/20/17 17:48 Pulse Ox 99 06/20/17 16:00 - Labs Result Diagrams: 06/20/17 10:38 06/20/17 10:50 Labs: Laboratory Results - last 24 hr 06/20/17 06/20/17 06/20/17 14:14 14:14 14:15 Magnesium 1.5 L Urine Opiates Screen Negative Urine Methadone Screen Negative Ur Barbiturates Screen Negative Ur Phencyclidine Scrn Negative Ur Amphetamines Screen Negative U Benzodiazepines Scrn Positive H U Oth Cocaine Metabols Positive H U Cannabinoids Screen Negative Alcohol, Quantitative < 10 Assessment & Plan - Assessment and Plan (Free Text) Assessment: 42 yo M with PMHx of HTN and anxiety admitted for evaluation and treatment for colitis and alcohol abuse with possible withdrawal. Plan: 1. Colitis - Admitted in-patient on remote telemetry - GI consulted - NPO - Flagyl and Rocephin - Morphine PRN for pain - Zofran PRN for nausea - F/u C. diff, stool cultures, occult blood - CT showed mild to merate mural thickening and edema consistent with colitis 2. Alcohol Abuse, possible withdrawal - [facility] protocol - Banana bag - Ativan 2 mg Q3H prn 3. HTN - Elevated on admission, pt non-compliance - Will cont home med: Amlodipine - Clonidine prn GI/DVT PPx - Protonix - SCDs Pt seen and discussed in detail with Dr. Melendez. <Addie Melendez - Last Filed: 06/21/17 08:15> Results - Vital Signs Recent Vital Signs: Last Vital Signs Temp 98 F 06/21/17 00:01 Pulse 62 06/21/17 02:00 Resp 20 06/21/17 00:01 BP 128/91 H 06/21/17 00:01 Pulse Ox 98 06/21/17 00:01 - Labs Result Diagrams: 06/21/17 06:30 06/21/17 06:30 Labs: Laboratory Results - last 24 hr 06/20/17 06/20/17 06/20/17 14:14 14:14 14:15 WBC RBC Hgb Hct MCV MCH MCHC RDW Plt Count MPV Sodium Potassium Chloride Carbon Dioxide Anion Gap BUN Creatinine Est GFR ( Amer) Est GFR (Non-Af Amer) Random Glucose Calcium Magnesium 1.5 L Total Bilirubin AST ALT Alkaline Phosphatase Total Protein Albumin Globulin Albumin/Globulin Ratio Urine Opiates Screen Negative Urine Methadone Screen Negative Ur Barbiturates Screen Negative Ur Phencyclidine Scrn Negative Ur Amphetamines Screen Negative U Benzodiazepines Scrn Positive H U Oth Cocaine Metabols Positive H U Cannabinoids Screen Negative Alcohol, Quantitative < 10 06/21/17 06/21/17 06:30 06:30 WBC 3.6 L RBC 3.69 Hgb 10.6 L Hct 32.6 L MCV 88.3 MCH 28.7 MCHC 32.5 RDW 14.6 H Plt Count 204 MPV 10.5 Sodium 136 Potassium 3.4 L Chloride 101 Carbon Dioxide 23 Anion Gap 15 BUN 5 L Creatinine 0.8 Est GFR ( Amer) > 60 Est GFR (Non-Af Amer) > 60 Random Glucose 80 Calcium 7.9 L Magnesium Total Bilirubin 0.7 AST 68 H ALT 57 H Alkaline Phosphatase 64 Total Protein 6.4 Albumin 3.7 Globulin 2.7 Albumin/Globulin Ratio 1.4 Urine Opiates Screen Urine Methadone Screen Ur Barbiturates Screen Ur Phencyclidine Scrn Ur Amphetamines Screen U Benzodiazepines Scrn U Oth Cocaine Metabols U Cannabinoids Screen Alcohol, Quantitative Attending/Attestation - Attestation I have personally seen and examined this patient.: Yes I have fully participated in the care of the patient.: Yes I have reviewed all pertinent clinical information: Yes Notes (Text): 06/20/17 42 year old male with past medical history of hypertension and chronic ETOH abuse who presents with complaint of abdominal pain with nausea, vomiting and diarrhea. CT abd/pelvis shows colitis. Continue with NPO, IVF, analgesics and antibiotics. GI evaluation is requested. Stool studies including for CDif is ordered. Continue with ativan prn for alcohol withdrawal symptoms and banana bag. He was counselled on alcohol abstinence. Mildly elevated LFTs likely secondary to chronic ETOH abuse. He is on norvasc for hypertension. Will replete and repeat lytes (magnesium/potassium). Addie Melendez MD Hospitalist.
[2017-06-20] MEDS ORDERED: Pneumococcal 23-Valent Vaccine IM ONE (21:02)
[2017-06-20] MEDS: metroNIDAZOLE IV 500 mg/100 ml 500 MG/100 ML BAG IVPB SCH (21:53)
[2017-06-21] MEDS: Sodium Chloride 0.9% 1,000 ML IV SCH ×4 (02:15→16:03)
[2017-06-21] MEDS: metroNIDAZOLE IV 500 mg/100 ml 500 MG/100 ML BAG IVPB SCH ×3 (06:07→21:17)
[2017-06-21 07:22] LABS: HEMATOCRIT 32.6 % (42.0-52.0); MEAN CELL VOLUME 88.3 fl (80.0-105.0); MEAN CORPUSCULAR HEMOGLOBIN 28.7 pg (25.0-35.0); MEAN CORPUSCULAR HGB CONC 32.5 g/dl (31.0-37.0); MEAN PLATELET VOLUME 10.5 fl (7.0-11.0); RED CELL DISTRIBUTION WIDTH 14.6 % (11.5-14.5); WHITE BLOOD COUNT 3.6 10^3/ul (4.5-11.0)
[2017-06-21 07:52] LABS: ALB/GLOB RATIO 1.4 (1.1-1.8); ALKALINE PHOSPHATASE 64 U/L (38-133); ALT/SGPT 57 U/L (7-56); AST/SGOT 68 U/L (15-59); BILIRUBIN,TOTAL 0.7 mg/dL (0.2-1.3); BLOOD UREA NITROGEN 5 mg/dL (7-21); CALCIUM 7.9 mg/dL (8.4-10.5); CARBON DIOXIDE 23 mmol/L (21-33); CHLORIDE 101 mmol/L (98-107); GFR AFRICAN-AMERICAN > 60; GLUCOSE,RANDOM 80 mg/dL (70-110); POTASSIUM 3.4 mmol/L (3.6-5.0); SODIUM 136 mmol/L (132-148); TOTAL PROTEIN 6.4 g/dL (5.8-8.3)
[2017-06-21] MEDS: cefTRIAXone 1 gm 1 GM/100 ML BAG IVPB SCH (10:56)
--- NOTE | 2017-06-21 11:41 | CP.PCM.CON ---
<Alma Shukla - Last Filed: 06/21/17 11:30> History of Present Illness - History of Present Illness History of Present Illness: Gastroenterology Fellow/PGY5 Consult Note 42 year old male with history of Hypertension, anemia, and Polysubstance abuse presenting with abdominal pain. Patient notes of left sided abdominal pain with associated three episodes of clear vomitus and four episodes of watery diarrhea yesterday. Notes small amount of bright red blood on wiping after each episode of diarrhea. Admits to rare occurrence of bright red blood with wiping once every six months associated with hard stools. Denies fever, chills, sweats, sick contacts, recent travel, recent antibiotics, hematemesis, melena, or unintentional weight loss. No further episodes of vomiting or diarrhea since inpatient. Admits his symptoms are similar to the multiple hospital presentations since 2011 and most recent discharge 06/04/17 for alcohol withdrawal. Admits to cocaine use this past Saturday and Drinks a pint of liquor daily along with occasional beer. No prior EGD or colonoscopy. Family- denies colorectal cancer Social- endorsed 1 pint of liquor daily/marijuana and cocaine once per month/3- 5 cigarettes daily since 12 years of age Surgery- right ankle ORIF Review of Systems - Review of Systems Review of Systems: 12-point review of systems negative except for as above Past Patient History - Infectious Disease Hx of Infectious Diseases: None - Tetanus Immunizations Tetanus Immunization: Unknown - Past Medical History & Family History Past Medical History?: Yes - Past Social History Smoking Status: Current Some Days Smoker - CARDIAC Hx Hypertension: Yes - PULMONARY Hx Respiratory Disorders: No Hx Chronic Obstructive Pulmonary Disease (COPD): No - NEUROLOGICAL Hx Neurological Disorder: Yes Hx Dizziness: Yes Other/Comment: neuropathy - HEENT Hx HEENT Problems: No Hx Blind: No Hx Cataracts: No Hx Deafness: No Hx Difficulty Chewing: No Hx Epistaxis: No Hx Glaucoma: No Hx Macular Degeneration: No - RENAL Hx Chronic Kidney Disease: No Hx Renal Failure: No - ENDOCRINE/METABOLIC Hx Endocrine Disorders: No - HEMATOLOGICAL/ONCOLOGICAL Hx Blood Disorders: No - INTEGUMENTARY Hx Dermatological Problems: No - MUSCULOSKELETAL/RHEUMATOLOGICAL Hx Falls: No - GASTROINTESTINAL Hx Gastrointestinal Disorders: Yes Hx Gastroesophageal Reflux: Yes - GENITOURINARY/GYNECOLOGICAL Hx Genitourinary Disorders: No - PSYCHIATRIC Hx Psychophysiologic Disorder: Yes (ETOH, substance abuse,SMOKES CIGARETTES) Hx Substance Use: No (denies) - SURGICAL HISTORY Hx Musculoskeletal Surgery: Yes (RIGHT FOOT SXrod and screws) Hx Orthopedic Surgery: Yes - ANESTHESIA Hx Anesthesia: Yes Hx Anesthesia Reactions: No Hx Malignant Hyperthermia: No Meds Allergies/Adverse Reactions: Allergies Allergy/AdvReac Type Severity Reaction Status Date / Time No Known Allergies Allergy Verified 06/20/17 10:01 - Medications Medications: Current Medications Amlodipine Besylate (Norvasc) 5 mg PO DAILY [facility] Last Admin: 06/21/17 10:59 Dose: 5 mg Clonidine HCl (Catapres) 0.1 mg PO BID PRN PRN Reason: Systolic Blood Pressure Last Admin: 06/20/17 17:48 Dose: 0.1 mg Sodium Chloride (Sodium Chloride 0.9%) 1,000 mls @ 150 mls/hr IV .Q6H40M [facility] Last Admin: 06/21/17 11:01 Dose: Not Given Metronidazole (Flagyl) 500 mg in 100 mls @ 100 mls/hr IVPB Q8 [facility] PRN Reason: Protocol Last Admin: 06/21/17 06:07 Dose: 100 mls/hr Ceftriaxone Sodium (Rocephin 1 Gram Ivpb) 1 gm in 100 mls @ 100 mls/hr IVPB DAILY [facility] PRN Reason: Protocol Last Admin: 06/21/17 10:56 Dose: 100 mls/hr Potassium Chloride (Potassium Chloride 20 Meq/100 Ml) 20 meq in 100 mls @ 50 mls/hr IVPB Q2H [facility] Stop: 06/21/17 12:14 Last Admin: 06/21/17 11:00 Dose: 50 mls/hr Lorazepam (Ativan) 2 mg IVP Q3H PRN; Protocol PRN Reason: Symptoms of alcohol withdrawl Morphine Sulfate (Morphine) 2 mg IVP Q6H PRN PRN Reason: Pain, moderate (4-7) Ondansetron HCl (Zofran Inj) 4 mg IVP Q6H PRN PRN Reason: Nausea/Vomiting Pantoprazole Sodium (Protonix Inj) 40 mg IVP DAILY [facility] Last Admin: 06/21/17 10:56 Dose: 40 mg Physical Exam - Constitutional Appears: Non-toxic, No Acute Distress - Head Exam Head Exam: ATRAUMATIC, NORMOCEPHALIC - Eye Exam Eye Exam: EOMI, PERRL Pupil Exam: PERRL. absent: Miosis, Mydriatic - ENT Exam ENT Exam: Mucous Membranes Moist, Normal Oropharynx - Neck Exam Neck exam: Positive for: Full Rom, Normal Inspection - Respiratory Exam Respiratory Exam: Clear to Auscultation Bilateral. absent: Rales, Rhonchi, Wheezes - Cardiovascular Exam Cardiovascular Exam: RRR, +S1, +S2. absent: Gallop, Rubs - GI/Abdominal Exam GI & Abdominal Exam: Normal Bowel Sounds, Soft, Tenderness. absent: Distended, Firm, Guarding, Organomegaly, Rebound, Rigid Additional comments: left indy-abdomen discomfort to palpation - Extremities Exam Extremities exam: Positive for: normal inspection. Negative for: pedal edema - Neurological Exam Neurological exam: Alert - Psychiatric Exam Psychiatric exam: Normal Affect, Normal Mood - Skin Skin Exam: Dry, Intact, Normal Color, Warm Results - Vital Signs Recent Vital Signs: Last Vital Signs Temp 98.6 F 06/21/17 08:33 Pulse 72 06/21/17 10:59 Resp 20 06/21/17 08:33 BP 138/96 H 06/21/17 10:59 Pulse Ox 98 06/21/17 08:33 - Labs Result Diagrams: 06/21/17 06:30 06/21/17 06:30 Labs: Laboratory Results - last 24 hr 06/20/17 06/20/17 06/20/17 14:14 14:14 14:15 WBC RBC Hgb Hct MCV MCH MCHC RDW Plt Count MPV Sodium Potassium Chloride Carbon Dioxide Anion Gap BUN Creatinine Est GFR ( Amer) Est GFR (Non-Af Amer) Random Glucose Calcium Magnesium 1.5 L Total Bilirubin AST ALT Alkaline Phosphatase Total Protein Albumin Globulin Albumin/Globulin Ratio Urine Opiates Screen Negative Urine Methadone Screen Negative Ur Barbiturates Screen Negative Ur Phencyclidine Scrn Negative Ur Amphetamines Screen Negative U Benzodiazepines Scrn Positive H U Oth Cocaine Metabols Positive H U Cannabinoids Screen Negative Alcohol, Quantitative < 10 06/21/17 06/21/17 06/21/17 06:30 06:30 06:30 WBC 3.6 L RBC 3.69 Hgb 10.6 L Hct 32.6 L MCV 88.3 MCH 28.7 MCHC 32.5 RDW 14.6 H Plt Count 204 MPV 10.5 Sodium 136 Potassium 3.4 L Chloride 101 Carbon Dioxide 23 Anion Gap 15 BUN 5 L Creatinine 0.8 Est GFR ( Amer) > 60 Est GFR (Non-Af Amer) > 60 Random Glucose 80 Calcium 7.9 L Magnesium 1.8 Total Bilirubin 0.7 AST 68 H ALT 57 H Alkaline Phosphatase 64 Total Protein 6.4 Albumin 3.7 Globulin 2.7 Albumin/Globulin Ratio 1.4 Urine Opiates Screen Urine Methadone Screen Ur Barbiturates Screen Ur Phencyclidine Scrn Ur Amphetamines Screen U Benzodiazepines Scrn U Oth Cocaine Metabols U Cannabinoids Screen Alcohol, Quantitative Assessment & Plan - Assessment and Plan (Free Text) Assessment: 42 year old male with history of Hypertension, anemia, and Polysubstance abuse presenting with abdominal pain. Active treatment of pancolitis on CT A/P. Prior pancolitis on CT 01/2017. No prior EGD or colonoscopy. Plan: >DDx: infectious, inflammatory, ischemic >continue ceftriaxone/flagyl >pending stool workup >ordered fecal calprotectin >supportive care: IVFs, pain control ,anti-emetics >full liquid diet today >if still inpatient by Saturday, will do bowel prep for colonoscopy on Saturday >elevated LFTs since 2013 on record review >Hepatitis panel negative 2014 >ordered Hepatitis panel and autoimmune workup >ordered abdominal Ultrasound >will follow clinical course <Garrick Bonilla - Last Filed: 06/21/17 12:15> Meds - Medications Medications: Current Medications Amlodipine Besylate (Norvasc) 5 mg PO DAILY [facility] Last Admin: 06/21/17 10:59 Dose: 5 mg Clonidine HCl (Catapres) 0.1 mg PO BID PRN PRN Reason: Systolic Blood Pressure Last Admin: 06/20/17 17:48 Dose: 0.1 mg Sodium Chloride (Sodium Chloride 0.9%) 1,000 mls @ 150 mls/hr IV .Q6H40M [facility] Last Admin: 06/21/17 11:01 Dose: Not Given Metronidazole (Flagyl) 500 mg in 100 mls @ 100 mls/hr IVPB Q8 [facility] PRN Reason: Protocol Last Admin: 06/21/17 06:07 Dose: 100 mls/hr Ceftriaxone Sodium (Rocephin 1 Gram Ivpb) 1 gm in 100 mls @ 100 mls/hr IVPB DAILY [facility] PRN Reason: Protocol Last Admin: 06/21/17 10:56 Dose: 100 mls/hr Potassium Chloride (Potassium Chloride 20 Meq/100 Ml) 20 meq in 100 mls @ 50 mls/hr IVPB Q2H [facility] Stop: 06/21/17 12:14 Last Admin: 06/21/17 11:00 Dose: 50 mls/hr Lorazepam (Ativan) 2 mg IVP Q3H PRN; Protocol PRN Reason: Symptoms of alcohol withdrawl Morphine Sulfate (Morphine) 2 mg IVP Q6H PRN PRN Reason: Pain, moderate (4-7) Ondansetron HCl (Zofran Inj) 4 mg IVP Q6H PRN PRN Reason: Nausea/Vomiting Pantoprazole Sodium (Protonix Inj) 40 mg IVP DAILY [facility] Last Admin: 06/21/17 10:56 Dose: 40 mg Results - Vital Signs Recent Vital Signs: Last Vital Signs Temp 98.6 F 06/21/17 08:33 Pulse 72 06/21/17 10:59 Resp 20 06/21/17 08:33 BP 138/96 H 06/21/17 10:59 Pulse Ox 98 06/21/17 08:33 - Labs Result Diagrams: 06/21/17 06:30 06/21/17 06:30 Labs: Laboratory Results - last 24 hr 06/20/17 06/20/17 06/20/17 14:14 14:14 14:15 WBC RBC Hgb Hct MCV MCH MCHC RDW Plt Count MPV Sodium Potassium Chloride Carbon Dioxide Anion Gap BUN Creatinine Est GFR ( Amer) Est GFR (Non-Af Amer) Random Glucose Calcium Magnesium 1.5 L Total Bilirubin AST ALT Alkaline Phosphatase Total Protein Albumin Globulin Albumin/Globulin Ratio Urine Opiates Screen Negative Urine Methadone Screen Negative Ur Barbiturates Screen Negative Ur Phencyclidine Scrn Negative Ur Amphetamines Screen Negative U Benzodiazepines Scrn Positive H U Oth Cocaine Metabols Positive H U Cannabinoids Screen Negative Alcohol, Quantitative < 10 06/21/17 06/21/17 06/21/17 06:30 06:30 06:30 WBC 3.6 L RBC 3.69 Hgb 10.6 L Hct 32.6 L MCV 88.3 MCH 28.7 MCHC 32.5 RDW 14.6 H Plt Count 204 MPV 10.5 Sodium 136 Potassium 3.4 L Chloride 101 Carbon Dioxide 23 Anion Gap 15 BUN 5 L Creatinine 0.8 Est GFR ( Amer) > 60 Est GFR (Non-Af Amer) > 60 Random Glucose 80 Calcium 7.9 L Magnesium 1.8 Total Bilirubin 0.7 AST 68 H ALT 57 H Alkaline Phosphatase 64 Total Protein 6.4 Albumin 3.7 Globulin 2.7 Albumin/Globulin Ratio 1.4 Urine Opiates Screen Urine Methadone Screen Ur Barbiturates Screen Ur Phencyclidine Scrn Ur Amphetamines Screen U Benzodiazepines Scrn U Oth Cocaine Metabols U Cannabinoids Screen Alcohol, Quantitative Attending/Attestation - Attestation I have personally seen and examined this patient.: Yes I have fully participated in the care of the patient.: Yes I have reviewed all pertinent clinical information: Yes Notes (Text): 06/21/17 12:07 I have seen and examined patient with GI fellow. Agree with above documentation with the following additions. In brief, this is a 42 year old male with history of polysubstance abuse, HTN, anemia, who presents to hospital with complaint of abdominal pain. He describes a sharp, 6/10 intensity LLQ pain that is non radiating that started yesterday and was associated with multiple episodes of non-bloody emesis and diarrhea. Since arrival to hospital he has not had any recurrent vomiting or bowel movements. He denies recent sick contacts, travel, or antibiotic use. He does admit to cocaine use 4 days ago and consumes 1 pint of liquor daily. He otherwise denies fever/chills, weight loss. He admits to intermittent blood on toilet tissue when wiping. No prior endoscopic evaluation. Of note, he has had multiple hospital admissions over the course of the past year with greater than 6 CT scans over the past few months. He has had findings of colitis present on prior imaging but has not had any proper outpatient follow up. Polysubstance abuse HTN Anemia Abdominal pain - colitis (unclear etiology, infectious, inflammatory, ischemia particularly given recent cocaine use) Transaminitis - Full liquid diet as tolerated - Continue with antibiotic therapy - Obtain abdominal US, hepatitis panel (negative in 2014), and autoimmune workup - LFTs stable, continue to monitor - Obtain stool studies - Patient ideally requires outpatient endoscopic evaluation following resolution of acute symptoms, however patient compliance is a concern. Suggest continued observation for now, if patient agreeable may consider colonoscopy evaluation on saturday pending clinical progress.
[2017-06-21 12:37] LABS: IRON 78 ug/dL (45-180)
--- NOTE | 2017-06-21 14:18 | CP.PCM.PN ---
Addendum entered and electronically signed by MILLIE ORTEGA DO 06/21/17 14:21 : Assessment/Plan continued: Alcohol Abuse, possible withdrawal - Banana bag d/c - Start PO thiamine, folate, and multivitamin Hypomagnesmia - Mg 1.8 - IV Magnesium sulfate - Cont to monitor, replete as needed Original Note: <MILLIE ORTEGA - Last Filed: 06/21/17 14:12> Subjective - Date & Time of Evaluation Date of Evaluation: 06/21/17 Time of Evaluation: 14:12 - Subjective Subjective: Medicine Progress Note: Pt seen and examined at bedside. Pt denies any acute overnight events. Pt tolerates full liquid diet. 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 Pt denies CP, SOB, n/v/d, chills fevers, FALCON, dizziness, dysuria, BRBPR, or melena. Objective - Vital Signs/Intake and Output Vital Signs (last 24 hours): Temp Pulse Resp BP Pulse Ox 98.6 F 72 20 138/96 H 98 06/21/17 08:33 06/21/17 10:59 06/21/17 08:33 06/21/17 10:59 06/21/17 08:33 Intake and Output: 06/21/17 06/21/17 06:59 18:59 Intake Total 1200 0 Output Total 800 Balance 400 0 - Medications Medications: Current Medications Amlodipine Besylate (Norvasc) 5 mg PO DAILY [facility] Last Admin: 06/21/17 10:59 Dose: 5 mg Clonidine HCl (Catapres) 0.1 mg PO BID PRN PRN Reason: Systolic Blood Pressure Last Admin: 06/20/17 17:48 Dose: 0.1 mg Sodium Chloride (Sodium Chloride 0.9%) 1,000 mls @ 150 mls/hr IV .Q6H40M [facility] Last Admin: 06/21/17 11:01 Dose: Not Given Metronidazole (Flagyl) 500 mg in 100 mls @ 100 mls/hr IVPB Q8 [facility] PRN Reason: Protocol Last Admin: 06/21/17 06:07 Dose: 100 mls/hr Ceftriaxone Sodium (Rocephin 1 Gram Ivpb) 1 gm in 100 mls @ 100 mls/hr IVPB DAILY [facility] PRN Reason: Protocol Last Admin: 06/21/17 10:56 Dose: 100 mls/hr Lorazepam (Ativan) 2 mg IVP Q3H PRN; Protocol PRN Reason: Symptoms of alcohol withdrawl Morphine Sulfate (Morphine) 2 mg IVP Q6H PRN PRN Reason: Pain, moderate (4-7) Ondansetron HCl (Zofran Inj) 4 mg IVP Q6H PRN PRN Reason: Nausea/Vomiting Pantoprazole Sodium (Protonix Inj) 40 mg IVP DAILY [facility] Last Admin: 06/21/17 10:56 Dose: 40 mg - Labs Labs: 06/21/17 06:30 06/21/17 06:30 - Constitutional Appears: No Acute Distress - Head Exam Head Exam: ATRAUMATIC, NORMOCEPHALIC - Eye Exam Eye Exam: EOMI, Normal appearance, PERRL - ENT Exam ENT Exam: Mucous Membranes Moist - Neck Exam Neck Exam: Full ROM. absent: Lymphadenopathy, Tenderness, Thyromegaly - Respiratory Exam Respiratory Exam: Clear to Ausculation Bilateral. absent: Rales, Rhonchi, Wheezes - Cardiovascular Exam Cardiovascular Exam: RRR, +S1, +S2. absent: Gallop, Rubs, Murmur - GI/Abdominal Exam GI & Abdominal Exam: Soft, Tenderness (LLQ). absent: Distended, Guarding, Organomegaly, Rebound - Extremities Exam Extremities Exam: Normal Inspection - Back Exam Back Exam: NORMAL INSPECTION - Neurological Exam Neurological Exam: Alert, Awake, Oriented x3 - Psychiatric Exam Psychiatric exam: Normal Affect, Normal Mood - Skin Skin Exam: Dry, Intact, Normal Color, Warm Assessment and Plan - Assessment and Plan (Free Text) Assessment: 42 yo M with PMHx of HTN and anxiety admitted for evaluation and treatment for colitis and alcohol abuse with possible withdrawal. Plan: 1. Colitis - Admitted in-patient on remote telemetry - GI consulted, recommends abx, abdominal US, hep panel and autoimmune workup - Possible colonoscopy on Saturday pending clinical progress - Full liquids - F/u C. diff, stool cultures, occult blood, abdominal US - Flagyl and Rocephin - Morphine PRN for pain - Zofran PRN for nausea - CT showed mild to merate mural thickening and edema consistent with colitis 2. Alcohol Abuse, possible withdrawal - CIWA score 0 - Banana bag - Ativan 2 mg Q3H prn, none required overnight 3. HTN - Elevated on admission, pt non-compliance - Will cont home med: Amlodipine - Clonidine prn GI/DVT PPx - Protonix - SCDs Pt seen and discussed in detail with Dr. Melendez. <Addie Melendez - Last Filed: 06/21/17 16:02> Objective - Vital Signs/Intake and Output Vital Signs (last 24 hours): Temp Pulse Resp BP Pulse Ox 98.6 F 72 20 138/96 H 98 06/21/17 08:33 06/21/17 10:59 06/21/17 08:33 06/21/17 10:59 06/21/17 08:33 Intake and Output: 06/21/17 06/21/17 06:59 18:59 Intake Total 1200 0 Output Total 800 Balance 400 0 - Medications Medications: Current Medications Amlodipine Besylate (Norvasc) 5 mg PO DAILY [facility] Last Admin: 06/21/17 10:59 Dose: 5 mg Clonidine HCl (Catapres) 0.1 mg PO BID PRN PRN Reason: Systolic Blood Pressure Last Admin: 06/20/17 17:48 Dose: 0.1 mg Folic Acid (Folic Acid) 1 mg PO DAILY [facility] Metronidazole (Flagyl) 500 mg in 100 mls @ 100 mls/hr IVPB Q8 [facility] PRN Reason: Protocol Last Admin: 06/21/17 14:41 Dose: 100 mls/hr Ceftriaxone Sodium (Rocephin 1 Gram Ivpb) 1 gm in 100 mls @ 100 mls/hr IVPB DAILY [facility] PRN Reason: Protocol Last Admin: 06/21/17 10:56 Dose: 100 mls/hr Sodium Chloride (Sodium Chloride 0.9%) 1,000 mls @ 100 mls/hr IV .Q10H [facility] Lorazepam (Ativan) 2 mg IVP Q3H PRN; Protocol PRN Reason: Symptoms of alcohol withdrawl Morphine Sulfate (Morphine) 2 mg IVP Q6H PRN PRN Reason: Pain, moderate (4-7) Multivitamins/Minerals (Therapeutic-M Tab) 1 tab PO 0800 [facility] Ondansetron HCl (Zofran Inj) 4 mg IVP Q6H PRN PRN Reason: Nausea/Vomiting Pantoprazole Sodium (Protonix Inj) 40 mg IVP DAILY [facility] Last Admin: 06/21/17 10:56 Dose: 40 mg Thiamine HCl (Vitamin B1 Tab) 100 mg PO DAILY [facility] - Labs Labs: 06/21/17 06:30 06/21/17 06:30 Attending/Attestation - Attestation I have personally seen and examined this patient.: Yes I have fully participated in the care of the patient.: Yes I have reviewed all pertinent clinical information, including history, physical exam and plan: Yes Notes (Text): 06/21/17 16:00 42 year old male with past medical history of hypertension and chronic ETOH abuse who presented with complaint of abdominal pain with nausea, vomiting and diarrhea. CT abd/pelvis showed colitis. Continue with iv fluids and antibiotics. Continue with liquid diet as tolerated. GI evaluation was appreciated. Plan is for possible colonoscopy on Saturday depending on clinical progress. Stool studies including for CDif is ordered in case of diarrhea which he states has resolved. Continue with ativan prn for alcohol withdrawal symptoms. Continue with multivitamin, folic acid and thiamine. He was counselled on alcohol abstinence. Mildly elevated LFTs likely secondary to chronic ETOH abuse. He is on norvasc for hypertension. Will replete and repeat lytes. Addie Melendez MD Hospitalist.
[2017-06-21] MEDS ORDERED: Magnesium Sulfate 2 GM in Sodium Chloride 0.9% 100 ML IVPB ONE (14:19)
[2017-06-21 16:49] LABS: TRANSFERRIN 223.9 mg/dL (206-381)
[2017-06-21 16:51] LABS: IMMUNOGLOBULIN G 883.2 mg/dL (700.0-1600.0); IMMUNOGLOBULIN M 72.5 mg/dL (40.0-230.0)
[2017-06-21 16:52] LABS: IMMUNOGLOBULIN A 360.2 mg/dL (70.0-400.0)
[2017-06-21 17:35] LABS: FOLATE > 20.0 ng/mL
[2017-06-22] MEDS: metroNIDAZOLE IV 500 mg/100 ml 500 MG/100 ML BAG IVPB SCH ×2 (05:33→14:45)
[2017-06-22] MEDS: Sodium Chloride 0.9% 1,000 ML IV SCH ×2 (05:34→18:20)
--- NOTE | 2017-06-22 06:53 | CP.PCM.PN ---
<Janett Siu - Last Filed: 06/22/17 16:11> Subjective - Date & Time of Evaluation Date of Evaluation: 06/22/17 Time of Evaluation: 09:00 - Subjective Subjective: PGY2 Progress note for Dr. Melendez Patient seen and examined at bedside. Patient continues to report diarrhea that is nonbloody nonmelanotic. Reports LLQ pain is still present. He denies any acute complaints of fever, chills, headache, dizziness, chest pain, palpitations , SOB, cough, nausea, vomiting, bladder complaints, bilateral leg pain/ swelling. Objective - Vital Signs/Intake and Output Vital Signs (last 24 hours): Temp Pulse Resp BP Pulse Ox 98.8 F 65 18 148/100 H 98 06/21/17 16:00 06/22/17 06:00 06/21/17 16:00 06/21/17 16:01 06/21/17 16:00 Intake and Output: 06/21/17 06/22/17 18:59 06:59 Intake Total 0 2260 Output Total 1300 Balance 0 960 - Medications Medications: Current Medications Amlodipine Besylate (Norvasc) 5 mg PO DAILY [facility] Last Admin: 06/21/17 10:59 Dose: 5 mg Clonidine HCl (Catapres) 0.1 mg PO BID PRN PRN Reason: Systolic Blood Pressure Last Admin: 06/21/17 16:01 Dose: 0.1 mg Folic Acid (Folic Acid) 1 mg PO DAILY [facility] Metronidazole (Flagyl) 500 mg in 100 mls @ 100 mls/hr IVPB Q8 [facility]DRA PRN Reason: Protocol Last Admin: 06/22/17 05:33 Dose: 100 mls/hr Ceftriaxone Sodium (Rocephin 1 Gram Ivpb) 1 gm in 100 mls @ 100 mls/hr IVPB DAILY [facility] PRN Reason: Protocol Last Admin: 06/21/17 10:56 Dose: 100 mls/hr Sodium Chloride (Sodium Chloride 0.9%) 1,000 mls @ 100 mls/hr IV .Q10H [facility] Last Admin: 06/22/17 05:34 Dose: 100 mls/hr Lorazepam (Ativan) 2 mg IVP Q3H PRN; Protocol PRN Reason: Symptoms of alcohol withdrawl Morphine Sulfate (Morphine) 2 mg IVP Q6H PRN PRN Reason: Pain, moderate (4-7) Multivitamins/Minerals (Therapeutic-M Tab) 1 tab PO 0800 [facility] Ondansetron HCl (Zofran Inj) 4 mg IVP Q6H PRN PRN Reason: Nausea/Vomiting Pantoprazole Sodium (Protonix Inj) 40 mg IVP DAILY [facility] Last Admin: 06/21/17 10:56 Dose: 40 mg Thiamine HCl (Vitamin B1 Tab) 100 mg PO DAILY [facility] - Labs Labs: 06/21/17 06:30 06/21/17 06:30 - Constitutional Appears: No Acute Distress - Head Exam Head Exam: NORMAL INSPECTION - Eye Exam Eye Exam: EOMI, Normal appearance. absent: Conjunctival injection, Scleral icterus - ENT Exam ENT Exam: Mucous Membranes Moist - Neck Exam Neck Exam: Full ROM - Respiratory Exam Respiratory Exam: Clear to Ausculation Bilateral, NORMAL BREATHING PATTERN. absent: Accessory Muscle Use, Rales, Rhonchi, Wheezes, Respiratory Distress - Cardiovascular Exam Cardiovascular Exam: REGULAR RHYTHM, RRR, +S1, +S2. absent: Murmur - GI/Abdominal Exam GI & Abdominal Exam: Soft, Tenderness (LLQ). absent: Distended, Firm, Guarding - Extremities Exam Extremities Exam: Normal Inspection. absent: Pedal Edema - Neurological Exam Neurological Exam: Alert, Awake, Oriented x3 - Psychiatric Exam Psychiatric exam: Normal Affect, Normal Mood - Skin Skin Exam: Dry, Intact, Normal Color, Warm Assessment and Plan - Assessment and Plan (Free Text) Assessment: 42 yo AA male PMHx HTN and anxiety admitted for evaluation and treatment for colitis and alcohol abuse with possible withdrawal. Plan: Colitis - C Diff antigen + C Diff toxin neg f/u repeat Cdiff - Flagyl 500mg po q8 - Florastor 1 cap po bid - Morphine 2mg ivp q6 prn pain - Zofran 4mg ivp q6 prn nausea - CT abd/pelvis 06/20: mild to moderate mural thickening and edema throughout the colon consistent with colitis - Abd u/s 06/21: grossly unremarkable - Possible colonoscopy on Saturday - Full liquids Alcohol Abuse, possible withdrawal - CIWA score 0 - Vitamin B1 100mg po daily - Multivitamins 1 tab po daily - Ativan 2mg ivp q3 prin withdrawal - Folic acid 1mg po daily - Hep panel negative Hx of anemia - Anemia panel Iron 78 TIBC 261 %Sat 30 Transferrin 223.90 Ferritin 149 Vit B12 699 Folate > 20 Hx of HTN - Norvasc 5mg po daily - Clonidine 0.1mg po bid prn Hx of drug abuse - UDS + benzo and cocaine - Ativan for seizure ppx - Monitor for withdrawal GI ppx: Protonix 40mg ivp daily DVT ppx: SCDs Diet: Liquid Fluids: NS @ 100cc/hr Contact precautions Case discussed with Dr. Nora Siu PGy2 <Addie Melendez - Last Filed: 06/22/17 17:06> Objective - Vital Signs/Intake and Output Vital Signs (last 24 hours): Temp Pulse Resp BP Pulse Ox 98.5 F 66 18 125/91 H 99 06/22/17 08:01 06/22/17 10:00 06/22/17 08:01 06/22/17 10:00 06/22/17 08:01 Intake and Output: 06/22/17 06/22/17 06:59 18:59 Intake Total 2260 720 Output Total 1300 600 Balance 960 120 - Medications Medications: Current Medications Amlodipine Besylate (Norvasc) 5 mg PO DAILY [facility] Last Admin: 06/22/17 10:00 Dose: 5 mg Clonidine HCl (Catapres) 0.1 mg PO BID PRN PRN Reason: Systolic Blood Pressure Last Admin: 06/21/17 16:01 Dose: 0.1 mg Folic Acid (Folic Acid) 1 mg PO DAILY [facility] Last Admin: 06/22/17 10:00 Dose: 1 mg Sodium Chloride (Sodium Chloride 0.9%) 1,000 mls @ 100 mls/hr IV .Q10H [facility] Last Admin: 06/22/17 05:34 Dose: 100 mls/hr Lactobacillus Acidophilus (Bacid Acidophilus) 1 cap PO BID [facility] Lorazepam (Ativan) 2 mg IVP Q3H PRN; Protocol PRN Reason: Symptoms of alcohol withdrawl Metronidazole (Flagyl) 500 mg PO Q8 [facility] PRN Reason: Protocol Morphine Sulfate (Morphine) 2 mg IVP Q6H PRN PRN Reason: Pain, moderate (4-7) Multivitamins/Minerals (Therapeutic-M Tab) 1 tab PO 0800 [facility] Last Admin: 06/22/17 08:42 Dose: 1 tab Ondansetron HCl (Zofran Inj) 4 mg IVP Q6H PRN PRN Reason: Nausea/Vomiting Pantoprazole Sodium (Protonix Inj) 40 mg IVP DAILY [facility] Last Admin: 06/22/17 09:58 Dose: 40 mg Thiamine HCl (Vitamin B1 Tab) 100 mg PO DAILY [facility] Last Admin: 06/22/17 10:00 Dose: 100 mg - Labs Labs: 06/22/17 08:30 06/22/17 08:30 Attending/Attestation - Attestation I have personally seen and examined this patient.: Yes I have fully participated in the care of the patient.: Yes I have reviewed all pertinent clinical information, including history, physical exam and plan: Yes Notes (Text): 06/22/17 17:04 42 year old male with past medical history of hypertension and chronic ETOH abuse who presented with complaint of abdominal pain with nausea, vomiting and diarrhea. CT abd/pelvis showed colitis. C diff antigen is positive. Patient is on flagyl. GI is following. Continue with diet as tolerated. Continue with ativan prn for alcohol withdrawal symptoms. Continue with multivitamin, folic acid and thiamine. He was counselled on alcohol abstinence. Mildly elevated LFTs likely secondary to chronic ETOH abuse. Will continue to monitor. Hepatitis panel was negative. He is on norvasc for hypertension. Addie Melendez MD Hospitalist.
[2017-06-22 08:42] LABS: HEMATOCRIT 34.3 % (42.0-52.0); MEAN CELL VOLUME 89.3 fl (80.0-105.0); MEAN CORPUSCULAR HEMOGLOBIN 29.4 pg (25.0-35.0); MEAN CORPUSCULAR HGB CONC 32.9 g/dl (31.0-37.0); MEAN PLATELET VOLUME 10.7 fl (7.0-11.0); RED CELL DISTRIBUTION WIDTH 14.6 % (11.5-14.5)
[2017-06-22] MEDS: Multivitamin With Minerals Tab PO SCH (08:42)
[2017-06-22 09:06] LABS: ALB/GLOB RATIO 1.3 (1.1-1.8); ALKALINE PHOSPHATASE 68 U/L (38-133); ALT/SGPT 80 U/L (7-56); AST/SGOT 94 U/L (15-59); BILIRUBIN,TOTAL 0.5 mg/dL (0.2-1.3); BLOOD UREA NITROGEN < 2 mg/dL (7-21); CALCIUM 8.9 mg/dL (8.4-10.5); CARBON DIOXIDE 25 mmol/L (21-33); CHLORIDE 104 mmol/L (98-107); GFR AFRICAN-AMERICAN > 60; GLUCOSE,RANDOM 105 mg/dL (70-110); MAGNESIUM 1.9 mg/dL (1.7-2.2); POTASSIUM 3.6 mmol/L (3.6-5.0); SODIUM 139 mmol/L (132-148); TOTAL PROTEIN 6.5 g/dL (5.8-8.3)
--- NOTE | 2017-06-22 09:54 | CP.PCM.PN ---
<Zhou Mnédez - Last Filed: 06/22/17 09:55> Subjective - Date & Time of Evaluation Date of Evaluation: 06/22/17 Time of Evaluation: 08:00 - Subjective Subjective: PGY4 Gi Follow-up NOte Pt Seen and examined bedside No complaints Denies abd pain Still has diarrhea Denies any formed stool states that his hungry tolerated clears Objective - Vital Signs/Intake and Output Vital Signs (last 24 hours): Temp Pulse Resp BP Pulse Ox 98.5 F 66 18 125/91 H 99 06/22/17 08:01 06/22/17 08:01 06/22/17 08:01 06/22/17 08:01 06/22/17 08:01 Intake and Output: 06/22/17 06/22/17 06:59 18:59 Intake Total 2260 Output Total 1300 Balance 960 - Medications Medications: Current Medications Amlodipine Besylate (Norvasc) 5 mg PO DAILY [facility] Last Admin: 06/21/17 10:59 Dose: 5 mg Clonidine HCl (Catapres) 0.1 mg PO BID PRN PRN Reason: Systolic Blood Pressure Last Admin: 06/21/17 16:01 Dose: 0.1 mg Folic Acid (Folic Acid) 1 mg PO DAILY [facility] Metronidazole (Flagyl) 500 mg in 100 mls @ 100 mls/hr IVPB Q8 [facility] PRN Reason: Protocol Last Admin: 06/22/17 05:33 Dose: 100 mls/hr Ceftriaxone Sodium (Rocephin 1 Gram Ivpb) 1 gm in 100 mls @ 100 mls/hr IVPB DAILY [facility] PRN Reason: Protocol Last Admin: 06/21/17 10:56 Dose: 100 mls/hr Sodium Chloride (Sodium Chloride 0.9%) 1,000 mls @ 100 mls/hr IV .Q10H [facility] Last Admin: 06/22/17 05:34 Dose: 100 mls/hr Lorazepam (Ativan) 2 mg IVP Q3H PRN; Protocol PRN Reason: Symptoms of alcohol withdrawl Morphine Sulfate (Morphine) 2 mg IVP Q6H PRN PRN Reason: Pain, moderate (4-7) Multivitamins/Minerals (Therapeutic-M Tab) 1 tab PO 0800 [facility] Last Admin: 06/22/17 08:42 Dose: 1 tab Ondansetron HCl (Zofran Inj) 4 mg IVP Q6H PRN PRN Reason: Nausea/Vomiting Pantoprazole Sodium (Protonix Inj) 40 mg IVP DAILY [facility] Last Admin: 06/21/17 10:56 Dose: 40 mg Thiamine HCl (Vitamin B1 Tab) 100 mg PO DAILY [facility] - Labs Labs: 06/22/17 08:30 06/22/17 08:30 - Constitutional Appears: Well, Non-toxic, No Acute Distress - Head Exam Head Exam: ATRAUMATIC, NORMOCEPHALIC - Eye Exam Eye Exam: Normal appearance - ENT Exam ENT Exam: Mucous Membranes Moist, Normal Exam - Respiratory Exam Respiratory Exam: Clear to Ausculation Bilateral, NORMAL BREATHING PATTERN. absent: Rales, Rhonchi, Wheezes, Respiratory Distress - Cardiovascular Exam Cardiovascular Exam: REGULAR RHYTHM, +S1, +S2 - GI/Abdominal Exam GI & Abdominal Exam: Soft, Hyperactive Bowel Sounds. absent: Tenderness, Diminished Bowel Sounds, Organomegaly - Extremities Exam Extremities Exam: Normal Inspection - Neurological Exam Neurological Exam: Alert, Awake, Oriented x3 - Psychiatric Exam Psychiatric exam: Normal Affect, Normal Mood - Skin Skin Exam: Dry, Intact, Normal Color, Warm Assessment and Plan - Assessment and Plan (Free Text) Assessment: 42 year old male with history of Hypertension, anemia, and Polysubstance abuse presenting with abdominal pain. Active treatment of pancolitis on CT A/P. Prior pancolitis on CT 01/2017. No prior EGD or colonoscopy.DDx: ischemic 2/2 cocaine use?,infectious, inflammatory Colitis etiology unknown, suspect possibly related to cocaine use DDx: IBD, r/o infectous Abd pain likely 2/2 to above Diarrhea likely 2/2 colitis polysubstance abuse Plan: -continue ceftriaxone/flagyl -pending stool workup -ordered fecal calprotectin -supportive care: IVFs, pain control ,anti-emetics -colonoscopy and EGD saturday -Reg Diet today, transition to clear liquid diet tomorrow -will start prep tomorrow afternoon -elevated LFTs since 2013 on record review - abdominal Ultrasound results pending -will follow clinical course D/W Dr. Carolina <Montrell Carolina - Last Filed: 06/22/17 10:03> Objective - Vital Signs/Intake and Output Vital Signs (last 24 hours): Temp Pulse Resp BP Pulse Ox 98.5 F 66 18 125/91 H 99 06/22/17 08:01 06/22/17 08:01 06/22/17 08:01 06/22/17 08:01 06/22/17 08:01 Intake and Output: 06/22/17 06/22/17 06:59 18:59 Intake Total 2260 Output Total 1300 Balance 960 - Medications Medications: Current Medications Amlodipine Besylate (Norvasc) 5 mg PO DAILY [facility] Last Admin: 06/21/17 10:59 Dose: 5 mg Clonidine HCl (Catapres) 0.1 mg PO BID PRN PRN Reason: Systolic Blood Pressure Last Admin: 06/21/17 16:01 Dose: 0.1 mg Folic Acid (Folic Acid) 1 mg PO DAILY [facility] Metronidazole (Flagyl) 500 mg in 100 mls @ 100 mls/hr IVPB Q8 [facility] PRN Reason: Protocol Last Admin: 06/22/17 05:33 Dose: 100 mls/hr Ceftriaxone Sodium (Rocephin 1 Gram Ivpb) 1 gm in 100 mls @ 100 mls/hr IVPB DAILY [facility] PRN Reason: Protocol Last Admin: 06/21/17 10:56 Dose: 100 mls/hr Sodium Chloride (Sodium Chloride 0.9%) 1,000 mls @ 100 mls/hr IV .Q10H [facility] Last Admin: 06/22/17 05:34 Dose: 100 mls/hr Lorazepam (Ativan) 2 mg IVP Q3H PRN; Protocol PRN Reason: Symptoms of alcohol withdrawl Morphine Sulfate (Morphine) 2 mg IVP Q6H PRN PRN Reason: Pain, moderate (4-7) Multivitamins/Minerals (Therapeutic-M Tab) 1 tab PO 0800 [facility] Last Admin: 06/22/17 08:42 Dose: 1 tab Ondansetron HCl (Zofran Inj) 4 mg IVP Q6H PRN PRN Reason: Nausea/Vomiting Pantoprazole Sodium (Protonix Inj) 40 mg IVP DAILY [facility] Last Admin: 06/21/17 10:56 Dose: 40 mg Thiamine HCl (Vitamin B1 Tab) 100 mg PO DAILY [facility] - Labs Labs: 06/22/17 08:30 06/22/17 08:30 Attending/Attestation - Attestation I have personally seen and examined this patient.: Yes I have fully participated in the care of the patient.: Yes I have reviewed all pertinent clinical information, including history, physical exam and plan: Yes Notes (Text): 06/22/17 10:01 42 year old male with h/o Etoh abuse and cocaine abuse admitted with abdominal pain/diarrhea, found to have colitis. 1. Colitis 2. Anemia Plan: -ddx for colitis includes IBD, ischemia due to chronic cocaine use, infectious -await stool studies -recommend egd/colonoscopy saturday -liquid diet tomorrow npo after mn saturday night -golytely 4 liters tomorrow -continue abx -regular diet today
[2017-06-22] MEDS: cefTRIAXone 1 gm 1 GM/100 ML BAG IVPB SCH (09:57)
--- NOTE | 2017-06-22 13:53 | US ---
HISTORY: elevated LFTs COMPARISON: Comparison made with CT scan abdomen pelvis 06/20/2017 TECHNIQUE: Sonographic evaluation of the abdomen. FINDINGS: LIVER: Measures 17 cm. Normal echogenicity of the liver parenchyma. No mass. No intrahepatic bile duct dilatation. GALLBLADDER: No definitive intraluminal shadowing calculi. Technologist did not report sonographic Amezquita sign. COMMON BILE DUCT: Measures 2.5 mm. No stones. No dilatation. PANCREAS: The pancreatic tail is incompletely visualized however the remaining pancreas otherwise appears unremarkable. RIGHT KIDNEY: Measures 10.4 x 4.6 5.3cm. Normal echogenicity. No calculus, mass, or hydronephrosis. LEFT KIDNEY: Measures 11.2 x 7.2 x 4.6cm. Normal echogenicity. No calculus, mass, or hydronephrosis. SPLEEN: Normal in size and contour. No mass. AORTA: No aneurysmal dilatation. IVC: Unremarkable. OTHER FINDINGS: None. IMPRESSION: Slightly limited study as described however the exam is otherwise grossly unremarkable.
[2017-06-22] MEDS: Lactobacillus Acidophilus 500 MU Cap PO SCH (17:56)
[2017-06-23] MEDS: Sodium Chloride 0.9% 1,000 ML IV SCH ×2 (05:35→13:46)
--- NOTE | 2017-06-23 06:33 | CP.PCM.PN ---
<Janett Siu - Last Filed: 06/23/17 14:08> Subjective - Date & Time of Evaluation Date of Evaluation: 06/23/17 Time of Evaluation: 08:00 - Subjective Subjective: PGY2 Progress note for Dr. Melendez Patient seen and examined at bedside. Patient continues to have diarrhea [~10 episodes] that were nonbloody and nonmelanotic. He reports his abdominal pain has improved and reports he is hungry [requested an extra bowl of chicken broth] . He denies any acute complaints of fever, chills, headache, dizziness, chest pain, SOB, cough, nausea, vomiting, bladder complaints, bilateral leg pain/ swelling. Objective - Vital Signs/Intake and Output Vital Signs (last 24 hours): Temp Pulse Resp BP Pulse Ox 99.8 F H 65 20 129/95 H 98 06/22/17 18:00 06/23/17 02:00 06/22/17 18:00 06/22/17 18:00 06/22/17 18:00 Intake and Output: 06/22/17 06/23/17 18:59 06:59 Intake Total 720 480 Output Total 600 Balance 120 480 - Medications Medications: Current Medications Amlodipine Besylate (Norvasc) 5 mg PO DAILY [facility] Last Admin: 06/22/17 10:00 Dose: 5 mg Clonidine HCl (Catapres) 0.1 mg PO BID PRN PRN Reason: Systolic Blood Pressure Last Admin: 06/21/17 16:01 Dose: 0.1 mg Folic Acid (Folic Acid) 1 mg PO DAILY [facility] Last Admin: 06/22/17 10:00 Dose: 1 mg Sodium Chloride (Sodium Chloride 0.9%) 1,000 mls @ 100 mls/hr IV .Q10H [facility] Last Admin: 06/23/17 05:35 Dose: 100 mls/hr Lactobacillus Acidophilus (Bacid Acidophilus) 1 cap PO BID [facility] Last Admin: 06/22/17 17:56 Dose: 1 cap Lorazepam (Ativan) 2 mg IVP Q3H PRN; Protocol PRN Reason: Symptoms of alcohol withdrawl Metronidazole (Flagyl) 500 mg PO Q8 [facility] PRN Reason: Protocol Last Admin: 06/23/17 05:33 Dose: 500 mg Morphine Sulfate (Morphine) 2 mg IVP Q6H PRN PRN Reason: Pain, moderate (4-7) Multivitamins/Minerals (Therapeutic-M Tab) 1 tab PO 0800 [facility] Last Admin: 06/22/17 08:42 Dose: 1 tab Ondansetron HCl (Zofran Inj) 4 mg IVP Q6H PRN PRN Reason: Nausea/Vomiting Pantoprazole Sodium (Protonix Inj) 40 mg IVP DAILY [facility] Last Admin: 06/22/17 09:58 Dose: 40 mg Thiamine HCl (Vitamin B1 Tab) 100 mg PO DAILY [facility] Last Admin: 06/22/17 10:00 Dose: 100 mg - Labs Labs: 06/22/17 08:30 06/22/17 08:30 - Constitutional Appears: Non-toxic, No Acute Distress - Head Exam Head Exam: ATRAUMATIC, NORMOCEPHALIC - Eye Exam Eye Exam: EOMI, Normal appearance, PERRL. absent: Conjunctival injection, Scleral icterus - ENT Exam ENT Exam: Mucous Membranes Moist - Respiratory Exam Respiratory Exam: Clear to Ausculation Bilateral, NORMAL BREATHING PATTERN. absent: Accessory Muscle Use, Rales, Rhonchi, Wheezes, Respiratory Distress - Cardiovascular Exam Cardiovascular Exam: REGULAR RHYTHM, RRR, +S1, +S2. absent: Murmur - GI/Abdominal Exam GI & Abdominal Exam: Soft, Normal Bowel Sounds. absent: Firm, Guarding, Rigid, Tenderness - Extremities Exam Extremities Exam: Normal Capillary Refill, Normal Inspection. absent: Pedal Edema - Neurological Exam Neurological Exam: Alert, Awake, Oriented x3 - Psychiatric Exam Psychiatric exam: Normal Affect, Normal Mood - Skin Skin Exam: Dry, Intact, Normal Color, Warm Assessment and Plan - Assessment and Plan (Free Text) Assessment: 42 yo AA male PMHx HTN and anxiety admitted for evaluation and treatment for colitis and alcohol abuse with possible withdrawal Plan: Colitis - Patient continues to report diarrhea - C Diff antigen + C Diff toxin neg f/u repeat Cdiff - Stool culture: gram negative rods - f/u fecal calprotectin - Flagyl 500mg po q8 Day 2 - Florastor 1 cap po bid - Morphine 2mg ivp q6 prn pain - Zofran 4mg ivp q6 prn nausea - CT abd/pelvis 06/20: mild to moderate mural thickening and edema throughout the colon consistent with colitis - Abd u/s 06/21: grossly unremarkable - EGD/Colonoscopy on Sunday 06/24 Alcohol Abuse, possible withdrawal - CIWA score 0 - Vitamin B1 100mg po daily - Multivitamins 1 tab po daily - Ativan 2mg ivp q3 prin withdrawal - Folic acid 1mg po daily - Hep panel negative Hx of anemia - Anemia panel Iron 78 TIBC 261 %Sat 30 Transferrin 223.90 Ferritin 149 Vit B12 699 Folate > 20 Hx of HTN - Norvasc 5mg po daily - Clonidine 0.1mg po bid prn Hx of drug abuse - UDS + benzo and cocaine - Ativan for seizure ppx - Monitor for withdrawal GI ppx: Protonix 40mg ivp daily DVT ppx: SCDs Diet: Clear Liquid Fluids: NS @ 100cc/hr Contact precautions Case discussed with Dr. Nora Siu PGY2 <Addie Melendez - Last Filed: 06/23/17 14:46> Objective - Vital Signs/Intake and Output Vital Signs (last 24 hours): Temp Pulse Resp BP Pulse Ox 98.5 F 68 18 121/86 98 06/23/17 08:23 06/23/17 11:30 06/23/17 08:23 06/23/17 11:30 06/23/17 08:23 Intake and Output: 06/23/17 06/23/17 06:59 18:59 Intake Total 480 1200 Output Total 450 Balance 480 750 - Medications Medications: Current Medications Amlodipine Besylate (Norvasc) 5 mg PO DAILY [facility] Last Admin: 06/23/17 11:30 Dose: 5 mg Clonidine HCl (Catapres) 0.1 mg PO BID PRN PRN Reason: Systolic Blood Pressure Last Admin: 06/21/17 16:01 Dose: 0.1 mg Folic Acid (Folic Acid) 1 mg PO DAILY [facility] Last Admin: 06/23/17 11:30 Dose: 1 mg Sodium Chloride (Sodium Chloride 0.9%) 1,000 mls @ 100 mls/hr IV .Q10H [facility] Last Admin: 06/23/17 05:35 Dose: 100 mls/hr Lactobacillus Acidophilus (Bacid Acidophilus) 1 cap PO BID [facility] Last Admin: 06/23/17 11:30 Dose: 1 cap Lorazepam (Ativan) 2 mg IVP Q3H PRN; Protocol PRN Reason: Symptoms of alcohol withdrawl Metronidazole (Flagyl) 500 mg PO Q8 [facility] PRN Reason: Protocol Last Admin: 06/23/17 05:33 Dose: 500 mg Morphine Sulfate (Morphine) 2 mg IVP Q6H PRN PRN Reason: Pain, moderate (4-7) Multivitamins/Minerals (Therapeutic-M Tab) 1 tab PO 0800 [facility] Last Admin: 06/23/17 11:30 Dose: 1 tab Ondansetron HCl (Zofran Inj) 4 mg IVP Q6H PRN PRN Reason: Nausea/Vomiting Pantoprazole Sodium (Protonix Inj) 40 mg IVP DAILY [facility] Last Admin: 06/23/17 11:31 Dose: 40 mg Thiamine HCl (Vitamin B1 Tab) 100 mg PO DAILY [facility] Last Admin: 06/23/17 11:29 Dose: 100 mg - Labs Labs: 06/23/17 08:40 06/23/17 08:00 Attending/Attestation - Attestation I have personally seen and examined this patient.: Yes I have fully participated in the care of the patient.: Yes I have reviewed all pertinent clinical information, including history, physical exam and plan: Yes Notes (Text): 06/23/17 14:44 42 year old male with past medical history of hypertension and chronic ETOH abuse who presented with complaint of abdominal pain with nausea, vomiting and diarrhea. CT abd/pelvis showed colitis. C diff antigen was positive and patient is on flagyl. GI is following and plan is for EGD/colonoscopy tomorrow. Continue with ativan prn for alcohol withdrawal symptoms. He is on multivitamin , folic acid and thiamine. He was counselled on alcohol abstinence. He was counselled on risks of continued substance abuse. Mildly elevated LFTs likely secondary to chronic ETOH abuse. Will continue to monitor. Hepatitis panel was negative. He is on norvasc for hypertension. Addie Melendez MD Hospitalist.
[2017-06-23 08:58] LABS: BASO # 0.02 K/mm3 (0.0-2.0); BASO % 0.5 % (0.0-3.0); EOS # 0.1 (0.0-0.7); EOS % 2.6 % (1.5-5.0); GRAN # 2.37 (1.4-6.5); GRAN % 56.8 % (50.0-68.0); HEMATOCRIT 37.1 % (42.0-52.0); LYMPH # 1.2 (1.2-3.4); LYMPH % 29.3 % (22.0-35.0); MEAN CELL VOLUME 89.4 fl (80.0-105.0); MEAN CORPUSCULAR HEMOGLOBIN 28.9 pg (25.0-35.0); MEAN CORPUSCULAR HGB CONC 32.3 g/dl (31.0-37.0); MEAN PLATELET VOLUME 10.3 fl (7.0-11.0); MONO # 0.5 (0.1-0.6); MONO % 10.8 % (1.0-6.0); RED CELL DISTRIBUTION WIDTH 14.8 % (11.5-14.5); WHITE BLOOD COUNT 4.2 10^3/ul (4.5-11.0)
[2017-06-23 09:07] LABS: MAGNESIUM 1.6 mg/dL (1.7-2.2); PHOSPHOROUS 3.9 mg/dL (2.5-4.5)
[2017-06-23] MEDS ORDERED: Magnesium Sulfate 2 GM in Sodium Chloride 0.9% 100 ML IVPB ONE (09:19)
--- NOTE | 2017-06-23 10:06 | CP.PCM.PN ---
<Zhou Méndez - Last Filed: 06/23/17 10:07> Subjective - Date & Time of Evaluation Date of Evaluation: 06/23/17 Time of Evaluation: 07:30 - Subjective Subjective: PGY4 Gi Follow-up NOte Pt Seen and examined bedside No complaints Denies abd pain Still has diarrhea Denies any formed stool states that his hungry Objective - Vital Signs/Intake and Output Vital Signs (last 24 hours): Temp Pulse Resp BP Pulse Ox 98.5 F 68 18 121/86 98 06/23/17 08:23 06/23/17 08:23 06/23/17 08:23 06/23/17 08:23 06/23/17 08:23 Intake and Output: 06/23/17 06/23/17 06:59 18:59 Intake Total 480 Balance 480 - Medications Medications: Current Medications Amlodipine Besylate (Norvasc) 5 mg PO DAILY [facility] Last Admin: 06/22/17 10:00 Dose: 5 mg Bisacodyl (Dulcolax) 10 mg PO ONCE ONE Stop: 06/23/17 13:01 Clonidine HCl (Catapres) 0.1 mg PO BID PRN PRN Reason: Systolic Blood Pressure Last Admin: 06/21/17 16:01 Dose: 0.1 mg Folic Acid (Folic Acid) 1 mg PO DAILY [facility] Last Admin: 06/22/17 10:00 Dose: 1 mg Sodium Chloride (Sodium Chloride 0.9%) 1,000 mls @ 100 mls/hr IV .Q10H [facility] Last Admin: 06/23/17 05:35 Dose: 100 mls/hr Magnesium Sulfate 2 gm/ Sodium (Chloride) 104 mls @ 102 mls/hr IVPB ONCE ONE Stop: 06/23/17 10:20 Lactobacillus Acidophilus (Bacid Acidophilus) 1 cap PO BID [facility] Last Admin: 06/22/17 17:56 Dose: 1 cap Lorazepam (Ativan) 2 mg IVP Q3H PRN; Protocol PRN Reason: Symptoms of alcohol withdrawl Metronidazole (Flagyl) 500 mg PO Q8 [facility] PRN Reason: Protocol Last Admin: 06/23/17 05:33 Dose: 500 mg Morphine Sulfate (Morphine) 2 mg IVP Q6H PRN PRN Reason: Pain, moderate (4-7) Multivitamins/Minerals (Therapeutic-M Tab) 1 tab PO 0800 [facility] Last Admin: 06/22/17 08:42 Dose: 1 tab Ondansetron HCl (Zofran Inj) 4 mg IVP Q6H PRN PRN Reason: Nausea/Vomiting Pantoprazole Sodium (Protonix Inj) 40 mg IVP DAILY [facility] Last Admin: 06/22/17 09:58 Dose: 40 mg Polyethylene Glycol/Electrolytes (Golytely) 4,000 ml PO ONCE ONE Stop: 06/23/17 14:01 Thiamine HCl (Vitamin B1 Tab) 100 mg PO DAILY [facility] Last Admin: 06/22/17 10:00 Dose: 100 mg - Labs Labs: 06/23/17 08:40 06/22/17 08:30 - Constitutional Appears: Well, Non-toxic, No Acute Distress - Head Exam Head Exam: ATRAUMATIC, NORMOCEPHALIC - Eye Exam Eye Exam: Normal appearance - ENT Exam ENT Exam: Mucous Membranes Moist, Normal Exam - Respiratory Exam Respiratory Exam: Clear to Ausculation Bilateral, NORMAL BREATHING PATTERN. absent: Rales, Rhonchi, Wheezes, Respiratory Distress - Cardiovascular Exam Cardiovascular Exam: REGULAR RHYTHM, +S1, +S2 - GI/Abdominal Exam GI & Abdominal Exam: Soft, Normal Bowel Sounds. absent: Distended, Firm, Guarding, Rigid, Tenderness - Extremities Exam Extremities Exam: Full ROM, Normal Capillary Refill - Neurological Exam Neurological Exam: Alert, Awake, Oriented x3 - Psychiatric Exam Psychiatric exam: Normal Affect, Normal Mood - Skin Skin Exam: Dry, Intact, Normal Color, Warm Assessment and Plan - Assessment and Plan (Free Text) Assessment: 42 year old male with history of Hypertension, anemia, and Polysubstance abuse presenting with abdominal pain. Active treatment of pancolitis on CT A/P. Prior pancolitis on CT 01/2017. No prior EGD or colonoscopy.DDx: ischemic 2/2 cocaine use?,infectious, inflammatory C.diff antigen +, toxin PCR neg; unsure of active infection Colitis etiology likely infectious 2/2 c.diff vs infectous vs IBD Abd pain likely 2/2 to above Diarrhea likely 2/2 colitis polysubstance abuse Plan: -continue abx -stool cultures + for gram neg rods, waiting for final path -ordered fecal calprotectin -supportive care: IVFs, pain control ,anti-emetics -colonoscopy and EGD tomorrow - clear liquid diet -prep this afternoon -elevated LFTs since 2013 on record review - abdominal Ultrasound results reviewed and neg D/W Dr. Carolina <Montrell Carolina - Last Filed: 06/23/17 10:18> Objective - Vital Signs/Intake and Output Vital Signs (last 24 hours): Temp Pulse Resp BP Pulse Ox 98.5 F 68 18 121/86 98 06/23/17 08:23 06/23/17 08:23 06/23/17 08:23 06/23/17 08:23 06/23/17 08:23 Intake and Output: 06/23/17 06/23/17 06:59 18:59 Intake Total 480 Balance 480 - Medications Medications: Current Medications Amlodipine Besylate (Norvasc) 5 mg PO DAILY [facility] Last Admin: 06/22/17 10:00 Dose: 5 mg Bisacodyl (Dulcolax) 10 mg PO ONCE ONE Stop: 06/23/17 13:01 Clonidine HCl (Catapres) 0.1 mg PO BID PRN PRN Reason: Systolic Blood Pressure Last Admin: 06/21/17 16:01 Dose: 0.1 mg Folic Acid (Folic Acid) 1 mg PO DAILY [facility] Last Admin: 06/22/17 10:00 Dose: 1 mg Sodium Chloride (Sodium Chloride 0.9%) 1,000 mls @ 100 mls/hr IV .Q10H [facility] Last Admin: 06/23/17 05:35 Dose: 100 mls/hr Magnesium Sulfate 2 gm/ Sodium (Chloride) 104 mls @ 102 mls/hr IVPB ONCE ONE Stop: 06/23/17 10:20 Lactobacillus Acidophilus (Bacid Acidophilus) 1 cap PO BID [facility] Last Admin: 06/22/17 17:56 Dose: 1 cap Lorazepam (Ativan) 2 mg IVP Q3H PRN; Protocol PRN Reason: Symptoms of alcohol withdrawl Metronidazole (Flagyl) 500 mg PO Q8 [facility] PRN Reason: Protocol Last Admin: 06/23/17 05:33 Dose: 500 mg Morphine Sulfate (Morphine) 2 mg IVP Q6H PRN PRN Reason: Pain, moderate (4-7) Multivitamins/Minerals (Therapeutic-M Tab) 1 tab PO 0800 [facility] Last Admin: 06/22/17 08:42 Dose: 1 tab Ondansetron HCl (Zofran Inj) 4 mg IVP Q6H PRN PRN Reason: Nausea/Vomiting Pantoprazole Sodium (Protonix Inj) 40 mg IVP DAILY [facility] Last Admin: 06/22/17 09:58 Dose: 40 mg Polyethylene Glycol/Electrolytes (Golytely) 4,000 ml PO ONCE ONE Stop: 06/23/17 14:01 Thiamine HCl (Vitamin B1 Tab) 100 mg PO DAILY [facility] Last Admin: 06/22/17 10:00 Dose: 100 mg - Labs Labs: 06/23/17 08:40 06/22/17 08:30 Attending/Attestation - Attestation I have personally seen and examined this patient.: Yes I have fully participated in the care of the patient.: Yes I have reviewed all pertinent clinical information, including history, physical exam and plan: Yes Notes (Text): 06/23/17 10:18 42 year old male with h/o Etoh abuse and cocaine abuse admitted with abdominal pain/diarrhea, found to have colitis. 1. Colitis 2. Anemia Plan: -ddx for colitis includes IBD, ischemia due to chronic cocaine use, infectious -cdiff ag positive, toxin negative -clinical history not really suggestive of cdiff -continue abx -recommend egd/colonoscopy tomorrow to help determine etiology of colitis -clear liquid diet / golytely prep / npo after mn -egd/colon tomorrow
[2017-06-23] MEDS: Multivitamin With Minerals Tab PO SCH (11:30)
[2017-06-23] MEDS: Lactobacillus Acidophilus 500 MU Cap PO SCH ×2 (11:30→18:13)
[2017-06-23 12:26] LABS: ALB/GLOB RATIO 1.4 (1.1-1.8); ALKALINE PHOSPHATASE 65 U/L (38-133); ALT/SGPT 74 U/L (7-56); AST/SGOT 66 U/L (15-59); BILIRUBIN,TOTAL 0.5 mg/dL (0.2-1.3); BLOOD UREA NITROGEN 7 mg/dL (7-21); CALCIUM 9.6 mg/dL (8.4-10.5); CARBON DIOXIDE 25 mmol/L (21-33); CHLORIDE 101 mmol/L (98-107); GFR AFRICAN-AMERICAN > 60; GLUCOSE,RANDOM 90 mg/dL (70-110); SODIUM 138 mmol/L (132-148); TOTAL PROTEIN 7.4 g/dL (5.8-8.3)
[2017-06-23] MEDS ORDERED: Bisacodyl 5mg EC Tab PO ONE (13:00)
[2017-06-23] MEDS ORDERED: Peg-Electrolyte Oral Soln 4L (Golytely) PO ONE (14:00)
[2017-06-24] MEDS: Sodium Chloride 0.9% 1,000 ML IV SCH (03:55)
[2017-06-24 07:14] LABS: ALB/GLOB RATIO 1.4 (1.1-1.8); ALKALINE PHOSPHATASE 61 U/L (38-133); ALT/SGPT 88 U/L (7-56); AST/SGOT 89 U/L (15-59); BILIRUBIN,TOTAL 0.5 mg/dL (0.2-1.3); BLOOD UREA NITROGEN 4 mg/dL (7-21); CALCIUM 9.4 mg/dL (8.4-10.5); CARBON DIOXIDE 26 mmol/L (21-33); CHLORIDE 101 mmol/L (98-107); GFR AFRICAN-AMERICAN > 60; GLUCOSE,RANDOM 92 mg/dL (70-110); MAGNESIUM 1.8 mg/dL (1.7-2.2); PHOSPHOROUS 4.5 mg/dL (2.5-4.5); POTASSIUM 3.7 mmol/L (3.6-5.0); SODIUM 139 mmol/L (132-148); TOTAL PROTEIN 6.9 g/dL (5.8-8.3)
[2017-06-24 07:22] LABS: BASO # 0.02 K/mm3 (0.0-2.0); BASO % 0.5 % (0.0-3.0); EOS # 0.1 (0.0-0.7); EOS % 1.6 % (1.5-5.0); GRAN # 2.33 (1.4-6.5); GRAN % 53.5 % (50.0-68.0); HEMATOCRIT 35.5 % (42.0-52.0); LYMPH # 1.4 (1.2-3.4); LYMPH % 32.9 % (22.0-35.0); MEAN CELL VOLUME 88.8 fl (80.0-105.0); MEAN CORPUSCULAR HGB CONC 32.7 g/dl (31.0-37.0); MEAN PLATELET VOLUME 10.2 fl (7.0-11.0); MONO # 0.5 (0.1-0.6); MONO % 11.5 % (1.0-6.0); RED CELL DISTRIBUTION WIDTH 14.9 % (11.5-14.5); WHITE BLOOD COUNT 4.4 10^3/ul (4.5-11.0)
[2017-06-24 08:35] VITALS: TEMP 98.7
[2017-06-24] MEDS: Multivitamin With Minerals Tab PO SCH (09:03)
--- NOTE | 2017-06-24 09:45 | CP.PCM.PN ---
Subjective - Date & Time of Evaluation Date of Evaluation: 06/24/17 Time of Evaluation: 09:39 - Subjective Subjective: Patient seen and examined, resting comfortably in bed. No acute events overnight. He denies abdominal pain, nausea, vomiting, diarrhea, fever/chills. He was tentatively scheduled for endoscopic evaluation today but inadvertently consumed soup for breakfast and procedure was therefore cancelled. Review of vitals from today are normal. 12 point review of systems performed, negative aside from mentioned above. Objective - Vital Signs/Intake and Output Vital Signs (last 24 hours): Temp Pulse Resp BP Pulse Ox 98.7 F 58 L 19 122/84 100 06/24/17 08:34 06/24/17 08:34 06/24/17 08:34 06/24/17 08:34 06/24/17 08:34 Intake and Output: 06/24/17 06/24/17 06:59 18:59 Intake Total 960 Balance 960 - Medications Medications: Current Medications Amlodipine Besylate (Norvasc) 5 mg PO DAILY [facility] Last Admin: 06/23/17 11:30 Dose: 5 mg Clonidine HCl (Catapres) 0.1 mg PO BID PRN PRN Reason: Systolic Blood Pressure Last Admin: 06/21/17 16:01 Dose: 0.1 mg Folic Acid (Folic Acid) 1 mg PO DAILY [facility] Last Admin: 06/23/17 11:30 Dose: 1 mg Sodium Chloride (Sodium Chloride 0.9%) 1,000 mls @ 100 mls/hr IV .Q10H [facility] Last Admin: 06/24/17 03:55 Dose: Not Given Lactobacillus Acidophilus (Bacid Acidophilus) 1 cap PO BID [facility] Last Admin: 06/23/17 18:13 Dose: 1 cap Lorazepam (Ativan) 2 mg IVP Q3H PRN; Protocol PRN Reason: Symptoms of alcohol withdrawl Metronidazole (Flagyl) 500 mg PO Q8 [facility] PRN Reason: Protocol Last Admin: 06/24/17 05:43 Dose: 500 mg Morphine Sulfate (Morphine) 2 mg IVP Q6H PRN PRN Reason: Pain, moderate (4-7) Multivitamins/Minerals (Therapeutic-M Tab) 1 tab PO 0800 [facility] Last Admin: 06/24/17 09:03 Dose: Not Given Ondansetron HCl (Zofran Inj) 4 mg IVP Q6H PRN PRN Reason: Nausea/Vomiting Pantoprazole Sodium (Protonix Inj) 40 mg IVP DAILY [facility] Last Admin: 06/23/17 11:31 Dose: 40 mg Thiamine HCl (Vitamin B1 Tab) 100 mg PO DAILY [facility] Last Admin: 06/23/17 11:29 Dose: 100 mg - Labs Labs: 06/24/17 06:00 06/24/17 06:00 - Constitutional Appears: Non-toxic, No Acute Distress - Head Exam Head Exam: NORMAL INSPECTION - Eye Exam Eye Exam: EOMI, Normal appearance - ENT Exam ENT Exam: Mucous Membranes Moist - Respiratory Exam Respiratory Exam: Clear to Ausculation Bilateral - Cardiovascular Exam Cardiovascular Exam: REGULAR RHYTHM, +S1, +S2 - GI/Abdominal Exam GI & Abdominal Exam: Soft, Normal Bowel Sounds Additional comments: non tender to palpation in four quadrants - Extremities Exam Extremities Exam: Normal Inspection - Skin Skin Exam: Dry, Intact, Normal Color, Warm Assessment and Plan - Assessment and Plan (Free Text) Assessment: Polysubstance abuse Colitis - unclear etiology. C-difficile vs infectious/inflammatory/ischemic origin Plan: - Advance diet as tolerated - Agree with continuing empiric Flagyl therapy - Follow up final stool study results - LFTs stable, continue to monitor and awaiting autoimmune panel results - ETOH and substance abuse cessation counseling - Will defer endoscopic workup at this time, patient can have procedure performed electively as outpatient following resolution of acute symptoms. Will sign off case, please reconsult as necessary, thank you.
[2017-06-24] MEDS: Lactobacillus Acidophilus 500 MU Cap PO SCH ×2 (09:56→17:49)
[2017-06-24 15:36] LABS: SMOOTH MUSCLE AB TITER 1:20 Titer (< 1:20)
[2017-06-24 15:50] VITALS: BP 122/90; PULSE 82; RESP 20; O2SAT 98
--- NOTE | 2017-06-24 18:31 | CP.PCM.DIS ---
"<IbethErnesto - Last Filed: 06/24/17 18:28> Provider - Provider Date of Admission: 06/20/17 14:13 Attending physician: Addie Melendez MD Primary care physician: Griselda Heard MD Consults: GI - Dr. Bonilla Time Spent in preparation of Discharge (in minutes): 40 Hospital Course - Lab Results Lab Results: Micro Results 06/21/17 13:45 Stool Stool Culture - Final NO SALMONELLA, SHIGELLA OR CAMPYLOBACTER ISOLATED. 06/22/17 16:50 Stool C. difficile Antigen & Toxin A,B (M - Final 06/21/17 13:45 Stool C. difficile Antigen & Toxin A,B (M - Final Most Recent Lab Values WBC 4.4 10^3/ul (4.5-11.0) L 06/24/17 06:00 RBC 4.00 10^6/uL (3.5-6.1) 06/24/17 06:00 Hgb 11.6 g/dL (14.0-18.0) L 06/24/17 06:00 Hct 35.5 % (42.0-52.0) L 06/24/17 06:00 MCV 88.8 fl (80.0-105.0) 06/24/17 06:00 MCH 29.0 pg (25.0-35.0) 06/24/17 06:00 MCHC 32.7 g/dl (31.0-37.0) 06/24/17 06:00 RDW 14.9 % (11.5-14.5) H 06/24/17 06:00 Plt Count 212 10^3/uL (120.0-450.0) 06/24/17 06:00 MPV 10.2 fl (7.0-11.0) 06/24/17 06:00 Gran % 53.5 % (50.0-68.0) 06/24/17 06:00 Lymph % (Auto) 32.9 % (22.0-35.0) 06/24/17 06:00 [place] % (Auto) 11.5 % (1.0-6.0) H 06/24/17 06:00 Eos % (Auto) 1.6 % (1.5-5.0) 06/24/17 06:00 Baso % (Auto) 0.5 % (0.0-3.0) 06/24/17 06:00 Gran # 2.33 (1.4-6.5) 06/24/17 06:00 Lymph # 1.4 (1.2-3.4) 06/24/17 06:00 [place] # 0.5 (0.1-0.6) 06/24/17 06:00 Eos # 0.1 (0.0-0.7) 06/24/17 06:00 Baso # 0.02 K/mm3 (0.0-2.0) 06/24/17 06:00 Sodium 139 mmol/L (132-148) 06/24/17 06:00 Potassium 3.7 mmol/L (3.6-5.0) 06/24/17 06:00 Chloride 101 mmol/L (98-107) 06/24/17 06:00 Carbon Dioxide 26 mmol/L (21-33) 06/24/17 06:00 Anion Gap 16 (10-20) 06/24/17 06:00 BUN 4 mg/dL (7-21) L 06/24/17 06:00 Creatinine 0.8 mg/dL (0.5-1.4) 06/24/17 06:00 Est GFR ( Amer) > 60 06/24/17 06:00 Est GFR (Non-Af Amer) > 60 06/24/17 06:00 Random Glucose 92 mg/dL (70-110) 06/24/17 06:00 Calcium 9.4 mg/dL (8.4-10.5) 06/24/17 06:00 Phosphorus 4.5 mg/dL (2.5-4.5) 06/24/17 06:00 Magnesium 1.8 mg/dL (1.7-2.2) 06/24/17 06:00 Iron 78 ug/dL (45-180) 06/21/17 11:00 TIBC 261 ug/dL (261-462) 06/21/17 11:00 % Saturation 30 % (20-55) 06/21/17 11:00 Transferrin 223.90 mg/dL (206-381) 06/21/17 07:30 Ferritin 149.0 ng/mL 06/21/17 07:00 Total Bilirubin 0.5 mg/dL (0.2-1.3) 06/24/17 06:00 AST 89 U/L (15-59) H 06/24/17 06:00 ALT 88 U/L (7-56) H 06/24/17 06:00 Alkaline Phosphatase 61 U/L (38-133) 06/24/17 06:00 Total Protein 6.9 g/dL (5.8-8.3) 06/24/17 06:00 Albumin 4.0 g/dL (3.0-4.8) 06/24/17 06:00 Globulin 2.8 gm/dL 06/24/17 06:00 Albumin/Globulin Ratio 1.4 (1.1-1.8) 06/24/17 06:00 Lipase 76 U/L (23-300) 06/20/17 10:50 Vitamin B1 TNP 06/21/17 07:30 Vitamin B12 699 pg/mL (239-931) 06/21/17 07:00 Folate > 20.0 ng/mL 06/21/17 07:00 Urine Color Yellow (YELLOW) 06/20/17 11:42 Urine Appearance Clear (CLEAR) 06/20/17 11:42 Urine pH 6.0 (4.7-8.0) 06/20/17 11:42 Ur Specific [place] >= 1.030 (1.005-1.035) 06/20/17 11:42 Urine Protein 30 mg/dL (<30 mg/dL) H 06/20/17 11:42 Urine Glucose (UA) Negative mg/dL (NEGATIVE) 06/20/17 11:42 Urine Ketones 15 mg/dL (NEGATIVE) H 06/20/17 11:42 Urine Blood Negative (NEGATIVE) 06/20/17 11:42 Urine Nitrate Negative (NEGATIVE) 06/20/17 11:42 Urine Bilirubin Negative (NEGATIVE) 06/20/17 11:42 Urine Urobilinogen 0.2 E.U./dL (<1 E.U./dL) 06/20/17 11:42 Ur Leukocyte Esterase Negative Georges/uL (NEGATIVE) 06/20/17 11:42 Urine RBC Negative /hpf (0-2) 06/20/17 11:42 Urine WBC 1 - 3 /hpf (0-6) 06/20/17 11:42 Ur Epithelial Cells 0 - 2 /hpf (0-5) 06/20/17 11:42 Urine Bacteria Few (NEG) 06/20/17 11:42 Urine Opiates Screen Negative (NEGATIVE) 06/20/17 14:15 Urine Methadone Screen Negative (NEGATIVE) 06/20/17 14:15 Ur Barbiturates Screen Negative (NEGATIVE) 06/20/17 14:15 Ur Phencyclidine Scrn Negative (NEGATIVE) 06/20/17 14:15 Ur Amphetamines Screen Negative (NEGATIVE) 06/20/17 14:15 U Benzodiazepines Scrn Positive (NEGATIVE) H 06/20/17 14:15 U Oth Cocaine Metabols Positive (NEGATIVE) H 06/20/17 14:15 U Cannabinoids Screen Negative (NEGATIVE) 06/20/17 14:15 Alcohol, Quantitative < 10 mg/dL (0-10) 06/20/17 14:14 IgG 883.2 mg/dL (700.0-1600.0) 06/21/17 07:30 IgA 360.2 mg/dL (70.0-400.0) 06/21/17 07:30 IgM 72.5 mg/dL (40.0-230.0) 06/21/17 07:30 Anti-Mitochondrial Ab Negative (Negative) 06/21/17 07:30 Smooth Muscle Ab Titer 1:20 Titer (< 1:20) H 06/21/17 07:30 Anti-Smooth Muscle Ab Positive (Negative) H 06/21/17 07:30 Hepatitis A IgM Ab Negative (NEGATIVE) 06/21/17 07:00 Hep Bs Antigen Negative (NEGATIVE) 06/21/17 07:00 Hep B Core IgM Ab Negative (NEGATIVE) 06/21/17 07:00 Hepatitis C Antibody Negative (NEGATIVE) 06/21/17 07:00 - Hospital Course Hospital Course: This is a 42 year old male with PMHx of EtOH abuse, GERD, and HTN who presented to [facility] [place] with complaints of abdominal pain with associated diarrhea and non- bloody non-bilious vomiting. UDS was positive for benzos and cocaine. CT abd/ pelvis on admission showed mild to moderate mural thickening and edema throughout the colon consistent with colitis. Stool cultures showed gram (-) rods, C-diff showed positive antigen but negative toxin. Repeat C-diff showed negative antigen and toxin. GI was consulted on the case. Patient was treated with Flagyl, Florastor, Morphine and Zofran. His diet was advanced from NPO to soft regular. Patient was started on CIWA protocol for possible symptoms of Alcohol withdrawal and was counseled on the risk associated of alcohol abuse. He was given Ativan for seizure precaution, multivitamins, Thiamine and B12. Patient was Anemic with Hgb of 10.8 on admission. Iron study results below. Patient is to follow up with PMD. Patient will also follow up with GI physician within 1 week for outpatient EGD and colonoscopy. Patient is agreeable to plan. EKG NSR, possible left atrial enlargement, LVH Abd US Limited Study; unremarkable Iron 78 | TIBC 261|%Sat 30 | Transferrin 223.90 | Ferritin 149 | Vit B12 699 | Folate > 20 Patient reviewed with Attending. Ernesto Cristina PGY-1 - Date & Time of H&P Date of H&P: 06/24/17 Time of H&P: 18:29 Discharge Exam - Head Exam Head Exam: ATRAUMATIC, NORMAL INSPECTION, NORMOCEPHALIC - Eye Exam Eye Exam: EOMI, Normal appearance - ENT Exam ENT Exam: Mucous Membranes Moist - Respiratory Exam Respiratory Exam: Clear to PA & Lateral. absent: Rales, Rhonchi, Wheezes - Cardiovascular Exam Cardiovascular Exam: RRR, +S1, +S2. absent: JVD - GI/Abdominal Exam GI & Abdominal Exam: Normal Bowel Sounds, Soft. absent: Tenderness - Extremities Exam Additional comments: no pedal edema - Neurological Exam Neurological exam: Alert, Oriented x3 Additional comments: No Tremors - Psychiatric Exam Psychiatric exam: Normal Affect, Normal Mood Discharge Plan - Follow Up Plan Condition: STABLE Disposition: HOME/ ROUTINE Instructions: Acute Abdominal Pain (DC), Infectious Colitis (GEN) Additional Instructions: Follow up with GI doctor (Dr. Bonilla - ) or GI physician of choice within 1 week Follow up with your primary physician within 1 week. Continue with soft diet for 48 hours, then advance your diet as tolerated. Referrals: Griselda Heard MD [Primary Care Provider] - Garrick Bonilla MD [Staff Provider] - <Nusrat FRANKS,Luisito - Last Filed: 06/25/17 14:25> Provider - Provider Date of Admission: 06/20/17 14:13 Attending physician: Addie Melendez MD Primary care physician: Griselda Heard MD Hospital Course - Lab Results Lab Results: Micro Results 06/21/17 13:45 Stool Stool Culture - Final NO SALMONELLA, SHIGELLA OR CAMPYLOBACTER ISOLATED. 06/22/17 16:50 Stool C. difficile Antigen & Toxin A,B (M - Final 06/21/17 13:45 Stool C. difficile Antigen & Toxin A,B (M - Final Most Recent Lab Values WBC 4.4 10^3/ul (4.5-11.0) L 06/24/17 06:00 RBC 4.00 10^6/uL (3.5-6.1) 06/24/17 06:00 Hgb 11.6 g/dL (14.0-18.0) L 06/24/17 06:00 Hct 35.5 % (42.0-52.0) L 06/24/17 06:00 MCV 88.8 fl (80.0-105.0) 06/24/17 06:00 MCH 29.0 pg (25.0-35.0) 06/24/17 06:00 MCHC 32.7 g/dl (31.0-37.0) 06/24/17 06:00 RDW 14.9 % (11.5-14.5) H 06/24/17 06:00 Plt Count 212 10^3/uL (120.0-450.0) 06/24/17 06:00 MPV 10.2 fl (7.0-11.0) 06/24/17 06:00 Gran % 53.5 % (50.0-68.0) 06/24/17 06:00 Lymph % (Auto) 32.9 % (22.0-35.0) 06/24/17 06:00 [place] % (Auto) 11.5 % (1.0-6.0) H 06/24/17 06:00 Eos % (Auto) 1.6 % (1.5-5.0) 06/24/17 06:00 Baso % (Auto) 0.5 % (0.0-3.0) 06/24/17 06:00 Gran # 2.33 (1.4-6.5) 06/24/17 06:00 Lymph # 1.4 (1.2-3.4) 06/24/17 06:00 [place] # 0.5 (0.1-0.6) 06/24/17 06:00 Eos # 0.1 (0.0-0.7) 06/24/17 06:00 Baso # 0.02 K/mm3 (0.0-2.0) 06/24/17 06:00 Sodium 139 mmol/L (132-148) 06/24/17 06:00 Potassium 3.7 mmol/L (3.6-5.0) 06/24/17 06:00 Chloride 101 mmol/L (98-107) 06/24/17 06:00 Carbon Dioxide 26 mmol/L (21-33) 06/24/17 06:00 Anion Gap 16 (10-20) 06/24/17 06:00 BUN 4 mg/dL (7-21) L 06/24/17 06:00 Creatinine 0.8 mg/dL (0.5-1.4) 06/24/17 06:00 Est GFR ( Amer) > 60 06/24/17 06:00 Est GFR (Non-Af Amer) > 60 06/24/17 06:00 Random Glucose 92 mg/dL (70-110) 06/24/17 06:00 Calcium 9.4 mg/dL (8.4-10.5) 06/24/17 06:00 Phosphorus 4.5 mg/dL (2.5-4.5) 06/24/17 06:00 Magnesium 1.8 mg/dL (1.7-2.2) 06/24/17 06:00 Iron 78 ug/dL (45-180) 06/21/17 11:00 TIBC 261 ug/dL (261-462) 06/21/17 11:00 % Saturation 30 % (20-55) 06/21/17 11:00 Transferrin 223.90 mg/dL (206-381) 06/21/17 07:30 Ferritin 149.0 ng/mL 06/21/17 07:00 Total Bilirubin 0.5 mg/dL (0.2-1.3) 06/24/17 06:00 AST 89 U/L (15-59) H 06/24/17 06:00 ALT 88 U/L (7-56) H 06/24/17 06:00 Alkaline Phosphatase 61 U/L (38-133) 06/24/17 06:00 Total Protein 6.9 g/dL (5.8-8.3) 06/24/17 06:00 Albumin 4.0 g/dL (3.0-4.8) 06/24/17 06:00 Globulin 2.8 gm/dL 06/24/17 06:00 Albumin/Globulin Ratio 1.4 (1.1-1.8) 06/24/17 06:00 Lipase 76 U/L (23-300) 06/20/17 10:50 Vitamin B1 TNP 06/21/17 07:30 Vitamin B12 699 pg/mL (239-931) 06/21/17 07:00 Folate > 20.0 ng/mL 06/21/17 07:00 Urine Color Yellow (YELLOW) 06/20/17 11:42 Urine Appearance Clear (CLEAR) 06/20/17 11:42 Urine pH 6.0 (4.7-8.0) 06/20/17 11:42 Ur Specific [place] >= 1.030 (1.005-1.035) 06/20/17 11:42 Urine Protein 30 mg/dL (<30 mg/dL) H 06/20/17 11:42 Urine Glucose (UA) Negative mg/dL (NEGATIVE) 06/20/17 11:42 Urine Ketones 15 mg/dL (NEGATIVE) H 06/20/17 11:42 Urine Blood Negative (NEGATIVE) 06/20/17 11:42 Urine Nitrate Negative (NEGATIVE) 06/20/17 11:42 Urine Bilirubin Negative (NEGATIVE) 06/20/17 11:42 Urine Urobilinogen 0.2 E.U./dL (<1 E.U./dL) 06/20/17 11:42 Ur Leukocyte Esterase Negative Georges/uL (NEGATIVE) 06/20/17 11:42 Urine RBC Negative /hpf (0-2) 06/20/17 11:42 Urine WBC 1 - 3 /hpf (0-6) 06/20/17 11:42 Ur Epithelial Cells 0 - 2 /hpf (0-5) 06/20/17 11:42 Urine Bacteria Few (NEG) 06/20/17 11:42 Urine Opiates Screen Negative (NEGATIVE) 06/20/17 14:15 Urine Methadone Screen Negative (NEGATIVE) 06/20/17 14:15 Ur Barbiturates Screen Negative (NEGATIVE) 06/20/17 14:15 Ur Phencyclidine Scrn Negative (NEGATIVE) 06/20/17 14:15 Ur Amphetamines Screen Negative (NEGATIVE) 06/20/17 14:15 U Benzodiazepines Scrn Positive (NEGATIVE) H 06/20/17 14:15 U Oth Cocaine Metabols Positive (NEGATIVE) H 06/20/17 14:15 U Cannabinoids Screen Negative (NEGATIVE) 06/20/17 14:15 Alcohol, Quantitative < 10 mg/dL (0-10) 06/20/17 14:14 IgG 883.2 mg/dL (700.0-1600.0) 06/21/17 07:30 IgA 360.2 mg/dL (70.0-400.0) 06/21/17 07:30 IgM 72.5 mg/dL (40.0-230.0) 06/21/17 07:30 Anti-Mitochondrial Ab Negative (Negative) 06/21/17 07:30 Smooth Muscle Ab Titer 1:20 Titer (< 1:20) H 06/21/17 07:30 Anti-Smooth Muscle Ab Positive (Negative) H 06/21/17 07:30 Hepatitis A IgM Ab Negative (NEGATIVE) 06/21/17 07:00 Hep Bs Antigen Negative (NEGATIVE) 06/21/17 07:00 Hep B Core IgM Ab Negative (NEGATIVE) 06/21/17 07:00 Hepatitis C Antibody Negative (NEGATIVE) 06/21/17 07:00 Attending/Attestation - Attestation I have personally seen and examined this patient.: Yes I have fully participated in the care of the patient.: Yes I have reviewed all pertinent clinical information, including history, physical exam and plan: Yes Notes (Text): 06/25/17 14:20 Patient was seen and examined with medical records director. Agreed with resident assessment and plan. 42 year old male with past medical history of hypertension and chronic ETOH abuse who presented with complaint of abdominal pain with nausea, vomiting and diarrhea. CT abd/pelvis showed colitis. C diff antigen was positive and patient is on flagyl. Patient abdominal pain has improved.He is tolerating diet.There is no diarrhea.There is no sign of alcohol withdrawal.GI has recommended out patient Colonoscopy.The issue of ongoing alcohol abuse and follow up with GI was discussed in detail with him Management plan was discussed in detail with patient Education was provided."
== END 2017-06-24 18:45 | disposition home or self-care (01) | DRG 813 ==
LOC: ED 09:47 → EROBSV 10:18 → OBSVTOIN 14:13 → ERH 14:23 → 3RSO 15:35
PROVIDERS: ADMIT Internal Medicine; ATTEND Internal Medicine
DX: K52.9 Noninfective gastroenteritis and colitis, unspecified (principal); F10.239 Alcohol dependence with withdrawal, unspecified; F14.90 Cocaine use, unspecified, uncomplicated; G62.9 Polyneuropathy, unspecified; I10 Essential (primary) hypertension; D64.9 Anemia, unspecified; F41.9 Anxiety disorder, unspecified; K21.9 Gastro-esophageal reflux disease without esophagitis; R79.89 Other specified abnormal findings of blood chemistry; F12.90 Cannabis use, unspecified, uncomplicated; F17.210 Nicotine dependence, cigarettes, uncomplicated; Z91.19 Patient's noncompliance with other medical treatment and regimen

== ENCOUNTER 2017-07-01 09:07 | Emergency (ER) | payer MEDICAID ==
[2017-07-01 09:07] VITALS: BMI 20.6
[2017-07-01 09:20] VITALS: TEMP 98.4
[2017-07-01] MEDS ORDERED: Sodium Chloride 0.9% 1,000 ML IV STA (09:46)
--- NOTE | 2017-07-01 09:48 | ED PDOC ---
Arrival/HPI - General Chief Complaint: Abdominal Pain Time Seen by Provider: 07/01/17 09:30 Historian: Patient - History of Present Illness Narrative History of Present Illness (Text): 07/01/17 09:41 A 42 year old male, whose past medical history includes hypertension, GERD, and alcohol abuse, presents to the emergency department complaining of nausea and vomiting with associated dizziness since this morning. Patient reports last drink was last night. Patient notes experiencing some abdominal pain, diarrhea , lightheadedness, but denies of any other complaints. PMD: Dr. Griselda Heard Time/Duration: Other (morning today) Past Medical History - Provider Review Nursing Documentation Reviewed: Yes - Infectious Disease Hx of Infectious Diseases: None - Tetanus Immunization Tetanus Immunization: Unknown - Reproductive Currently : No - Past Medical History Past Medical History: No Previous - Cardiac Hx Hypertension: Yes - Pulmonary Hx Respiratory Disorders: No Hx Chronic Obstructive Pulmonary Disease (COPD): No - Neurological Hx Neurological Disorder: Yes Hx Dizziness: Yes Other/Comment: neuropathy - HEENT Hx HEENT Disorder: No Hx Blind: No Hx Cataracts: No Hx Deafness: No Hx Difficulty Chewing: No Hx Epistaxis: No Hx Glaucoma: No Hx Macular Degeneration: No - Renal Hx Renal Disorder: No Hx Renal Failure: No - Endocrine/Metabolic Hx Endocrine Disorders: No - Hematological/Oncological Hx Blood Disorders: No - Integumentary Hx Dermatological Disorder: No - Musculoskeletal/Rheumatological Hx Falls: No - Gastrointestinal Hx Gastrointestinal Disorders: Yes Hx Gastroesophageal Reflux: Yes - Genitourinary/Gynecological Hx Genitourinary Disorders: No - Psychiatric Hx Psychophysiologic Disorder: Yes Hx Anxiety: Yes Hx Depression: Yes Hx Substance Use: No (denies) Other/Comment: ETOH, substance abuse - Past Surgical History Past Surgical History: Non-Contributing - Surgical History Hx Musculoskeletal Surgery: Yes (R foot sx with rods/screws placed) Hx Orthopedic Surgery: Yes - Anesthesia Hx Anesthesia: Yes Hx Anesthesia Reactions: No Hx Malignant Hyperthermia: No - Suicidal Assessment Feels Threatened In Home Enviroment: No Family/Social History - Physician Review Nursing Documentation Reviewed: Yes Family/Social History: No Known Family HX Smoking Status: Current Some Days Smoker Hx Alcohol Use: Yes (DAILY VODKA AND BEER DAILY.) Frequency of alcohol use: Daily Hx Substance Use: No (denies) Substance used: marijuana & coaine Hx Substance Use Treatment: No Allergies/Home Meds Allergies/Adverse Reactions: Allergies No Known Allergies Allergy (Verified 07/01/17 09:18) Home Medications: Home Meds Medication Instructions Recorded Confirmed amLODIPine [Norvasc] 5 mg PO DAILY 06/20/17 07/01/17 Folic Acid [Folic Acid] 1 g PO DAILY 07/01/17 07/01/17 Gabapentin [Neurontin] 400 mg PO TID 07/01/17 07/01/17 PARoxetine [Paxil] 10 mg PO DAILY 07/01/17 07/01/17 Review of Systems - Physician Review All systems were reviewed & negative as marked: Yes - Review of Systems Constitutional: absent: Fevers Respiratory: absent: SOB Physical Exam - Physical Exam Narrative Physical Exam (Text): Constitutional: No acute distress. Head: Normocephalic. Atraumatic. Eyes: PERRL. ENT: Moist mucous membranes. Neck: Supple. Cardiovascular: Regular rate. Chest: No tenderness. Respiratory: Clear to auscultation bilaterally. GI: Soft. Nontender. Nondistended. Back: No CVA tenderness. Musculoskeletal: No tenderness or swelling of extremities. Skin: No rash. Neurologic: Alert, no focal deficit. Vital Signs Reviewed: Yes Vital Signs Temp Pulse Resp BP Pulse Ox 07/01/17 09:18 98.4 F 83 18 117/76 98 Temperature: Afebrile Blood Pressure: Normal Pulse: Regular Respiratory Rate: Normal Appearance: Positive for: Well-Appearing Pain Distress: None Finger Stick Blood Glucose: 101 Medical Decision Making ED Course and Treatment: 07/01/17 09:44 Impression: 42 year old male with nausea and vomiting with associated dizziness. Normal physical exam. Plan: -- Labs -- Zofran -- IV Fluids -- Reassess and disposition Prior Visits: Notes and results from previous visits were reviewed. On 06/20/2017 for 3 episodes of diarrhea with nausea/vomiting and LLQ abdominal pain. Patient was place in ED Observation. Progress Notes: 07/01/2017 09:47 Patient noted to have hand tremors when seen by provider, none when viewed from afar. No Hypertension or tachycardia. Will discharge home, follow up PMD, return to emergency department for worsening pain, vomiting, dyspnea, or any other problem. - Medication Orders Current Medication Orders: Discontinued Medications Sodium Chloride (Sodium Chloride 0.9%) 1,000 mls @ 999 mls/hr IV .Q1H1M STA Stop: 07/01/17 10:46 Last Admin: 07/01/17 09:55 Dose: 999 mls/hr Ondansetron HCl (Zofran Inj) 8 mg IVP STAT STA Stop: 07/01/17 09:47 Last Admin: 07/01/17 10:02 Dose: 8 mg - Scribe Statement The provider has reviewed the documentation as recorded by the Ruth Hope Provider Scribe Attestation: All medical record entries made by the Viralibtylor were at my direction and personally dictated by me. I have reviewed the chart and agree that the record accurately reflects my personal performance of the history, physical exam, medical decision making, and the department course for this patient. I have also personally directed, reviewed, and agree with the discharge instructions and disposition. Disposition/Present on Arrival - Present on Arrival Any Indicators Present on Arrival: No History of DVT/PE: No History of Uncontrolled Diabetes: No Urinary Catheter: No History of Decub. Ulcer: No History Surgical Site Infection Following: None - Disposition Have Diagnosis and Disposition been Completed?: Yes Diagnosis: Alcohol abuse, Vomiting Disposition: HOME/ ROUTINE Disposition Time: 10:47 Patient Plan: Discharge Condition: STABLE Discharge Instructions (ExitCare): Acute Nausea and Vomiting (ED), Abuse of Alcohol (ED) Prescriptions: Ondansetron ODT [Zofran ODT] 4 mg PO Q8 #12 odt Referrals: Griselda Heard MD [Primary Care Provider] - Follow up with primary Forms: [employer] (Gambian)
[2017-07-01 10:54] VITALS: BP 118/80; PULSE 78; RESP 17; O2SAT 99
== END 2017-07-01 10:53 | disposition home or self-care (01) ==
LOC: ED 09:07
DX: F10.10 Alcohol abuse, uncomplicated (principal); R11.10 Vomiting, unspecified
CPT/HCPCS: 96361; 96374; 99285; J2405; J7040

== ENCOUNTER 2017-07-10 07:12 | Emergency (ER) | payer MEDICAID ==
[2017-07-10 07:13] VITALS: BMI 20.6
[2017-07-10] MEDS ORDERED: Sodium Chloride 0.9% 1,000 ML IV STA (07:42)
--- NOTE | 2017-07-10 07:44 | ED PDOC ---
Arrival/HPI - General Historian: Patient - History of Present Illness Time/Duration: 1/2 hour Symptom Onset: Sudden Symptom Course: Unchanged Quality: Aching Severity Level: 6 Activities at Onset: Rest Context: Home <Merari Krishnamurthy - Last Filed: 07/10/17 09:36> <Ezequiel Marino - Last Filed: 07/10/17 09:50> - General Chief Complaint: Dizziness/Lightheaded Time Seen by Provider: 07/10/17 07:28 - History of Present Illness Narrative History of Present Illness (Text): 07/10/17 07:50 This is a 42Y M with PMH alcoholism, substance abuse, Hypertension, GERD who came to emergency department for sudden dizziness and abdominal pain. He was binge drinking last night and also using cocaine. He is not sure how many drinks or cocaine he had. The patient suddenly woke up with morning at 7am with dizziness and some vomiting. He has had this before last week. He came to the emergency department last week on 07/01/17 with similar symptoms. The dizziness is described as the room spinning. The abdominal pain is localized in the epigastric region which is described as a burning sensation. He also complains of n/v/d since this morning. The patient denies CP, SOB, numbness/tingling, fever or chills. (Merari Krishnamurthy) Past Medical History - Provider Review Nursing Documentation Reviewed: Yes - Travel History Have you recently traveled outside [place] w/in the past 3 mons?: No - Infectious Disease Hx of Infectious Diseases: None - Tetanus Immunization Tetanus Immunization: Unknown - Reproductive Currently : No - Past Medical History Past Medical History: No Previous - Cardiac Hx Hypertension: Yes - Pulmonary Hx Respiratory Disorders: No Hx Chronic Obstructive Pulmonary Disease (COPD): No - Neurological Hx Neurological Disorder: Yes Hx Dizziness: Yes Other/Comment: neuropathy - HEENT Hx HEENT Disorder: No Hx Blind: No Hx Cataracts: No Hx Deafness: No Hx Difficulty Chewing: No Hx Epistaxis: No Hx Glaucoma: No Hx Macular Degeneration: No - Renal Hx Renal Disorder: No Hx Renal Failure: No - Endocrine/Metabolic Hx Endocrine Disorders: No - Hematological/Oncological Hx Blood Disorders: No - Integumentary Hx Dermatological Disorder: No - Musculoskeletal/Rheumatological Hx Falls: No - Gastrointestinal Hx Gastrointestinal Disorders: Yes Hx Gastroesophageal Reflux: Yes - Genitourinary/Gynecological Hx Genitourinary Disorders: No - Psychiatric Hx Psychophysiologic Disorder: Yes Hx Anxiety: Yes Hx Depression: Yes Hx Substance Use: No (denies) Other/Comment: ETOH, substance abuse - Past Surgical History Past Surgical History: Non-Contributing - Surgical History Hx Musculoskeletal Surgery: Yes (R foot sx with rods/screws placed) Hx Orthopedic Surgery: Yes - Anesthesia Hx Anesthesia: Yes Hx Anesthesia Reactions: No Hx Malignant Hyperthermia: No - Suicidal Assessment Feels Threatened In Home Enviroment: No <Merari Krishnamurthy - Last Filed: 07/10/17 09:36> Family/Social History Family/Social History: No Known Family HX Smoking Status: Current Some Days Smoker Hx Alcohol Use: Yes (DAILY VODKA AND BEER DAILY.) Hx Substance Use: Yes Substance used: marijuana & cocaine Route: Smoking/Inhalation Hx Substance Use Treatment: No <Merari Krishnamurthy - Last Filed: 07/10/17 09:36> - Physician Review Nursing Documentation Reviewed: Yes <Ezequiel Marino - Last Filed: 07/10/17 09:50> Allergies/Home Meds <Merari Krishnamurthy - Last Filed: 07/10/17 09:36> <Ezequiel Marino - Last Filed: 07/10/17 09:50> Allergies/Adverse Reactions: Allergies No Known Allergies Allergy (Verified 07/10/17 07:19) Home Medications: Home Meds Medication Instructions Recorded Confirmed amLODIPine [Norvasc] 5 mg PO DAILY 06/20/17 07/10/17 Folic Acid [Folic Acid] 1 g PO DAILY 07/01/17 07/10/17 Gabapentin [Neurontin] 400 mg PO TID 07/01/17 07/10/17 PARoxetine [Paxil] 10 mg PO DAILY 07/01/17 07/10/17 Review of Systems - Review of Systems Constitutional: Normal. absent: Fevers Eyes: Normal. absent: Vision Changes ENT: Normal. absent: Hearing Changes Respiratory: Normal. absent: SOB, Cough Cardiovascular: Normal. absent: Palpitations, Edema, Calf Pain Gastrointestinal: Abdominal Pain, Diarrhea, Vomiting Genitourinary Male: Normal. absent: Dysuria, Hematuria Neurological: Dizziness. absent: Headache, Focal Weakness, Gait Changes, Speech Changes Psychiatric: absent: Suicidal Ideation <LizzethKayode alexanderMerari - Last Filed: 07/10/17 09:36> Physical Exam Vital Signs Reviewed: Yes Temperature: Afebrile Blood Pressure: Normal Pulse: Regular Respiratory Rate: Normal Appearance: Positive for: Well-Appearing, Non-Toxic, Comfortable Pain Distress: None Mental Status: Positive for: Alert and Oriented X 3 - Systems Exam Head: Present: Atraumatic, Normocephalic Pupils: Present: PERRL Extroacular Muscles: Present: EOMI Conjunctiva: Present: Normal Mouth: Present: Moist Mucous Membranes Respiratory/Chest: Present: Clear to Auscultation, Good Air Exchange. No: Respiratory Distress, Accessory Muscle Use Cardiovascular: Present: Regular Rate and Rhythm, Normal S1, S2. No: Murmurs Abdomen: Present: Tenderness, Normal Bowel Sounds. No: Peritoneal Signs, Rebound, Guarding Upper Extremity: Present: Normal Inspection Lower Extremity: Present: Normal Inspection. No: Edema Neurological: Present: GCS=15, CN II-XII Intact, Speech Normal Skin: Present: Warm, Dry, Normal Color Psychiatric: Present: Alert, Oriented x 3 <Kayode Krishnamurthyystal - Last Filed: 07/10/17 09:36> Medical Decision Making Re-evaluation Time: 08:58 Reassessment Condition: Improved - EKG Interpretation Interpreted by ED Physician: Yes Type: 12 lead EKG Comparison: Similar to previous EKG <RaghuKayodeMerari - Last Filed: 07/10/17 09:36> <Ezequiel Marino - Last Filed: 07/10/17 09:50> ED Course and Treatment: 07/10/17 07:55 Impression: This is a 42Y M with PMH Hypertension, alcoholism, substance abuse and GERD here for dizziness and abdominal pain x 1hr. Differential Diagnosis included but are not limited to: Alcohol withdrawal v. Intoxication Plan: - EKG - Ativan - Zofran - NS 1L bolus - Reassess and disposition Progress Notes: 07/10/17 08:57 Patient reports feeling better. His dizziness has improved and reports his tongue feels less dry. (Merari Krishnamurthy) 07/10/17 08:14 EKG: Ordered, reviewed, and independently interpreted the EKG. Rate : 73 BPM Rhythm : NSR Interpretation : LVH Patient Seen With Resident: In agreement with resident note which contains more details about the patient. Patient was seen and evaluated with resident. Came up with plan and treatment together. 07/10/17 09:48 On reevaluation ,patient feels much better. No longer feeling dizzy. No dryness in mouth. No ataxia when walking. No tremors. He would like a Librium treatment for his withdrawal is willing to be compliant. He will follow up with his primary care doctor. He was advised to return to the ED if symptoms worsen or any other concerns. (Ezequiel Marino) - EKG Interpretation EKG Interpretation (Text): 07/10/17 07:48 EKG: NSR. Intervals within normal limits. 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 MD/ has examined the patient and agrees with the treatment plan. - Scribe Statement The provider has reviewed the documentation as recorded by the Scribe <Ezequiel Marino - Last Filed: 07/10/17 09:50> - Scribe Statement Lilly More Provider Scribe Attestation: All medical record entries made by the Scribe were at my direction and personally dictated by me. I have reviewed the chart and agree that the record accurately reflects my personal performance of the history, physical exam, medical decision making, and the department course for this patient. I have also personally directed, reviewed, and agree with the discharge instructions and disposition. (Ezequiel Marino) Disposition/Present on Arrival - Present on Arrival Any Indicators Present on Arrival: No History of DVT/PE: No History of Uncontrolled Diabetes: No Urinary Catheter: No History of Decub. Ulcer: No History Surgical Site Infection Following: None - Disposition Have Diagnosis and Disposition been Completed?: Yes Disposition Time: 09:20 Patient Plan: Discharge <Kayode Krishnamurthyystal - Last Filed: 07/10/17 09:36> <Ezequiel Marino - Last Filed: 07/10/17 09:50> - Disposition Diagnosis: Dizziness Disposition: HOME/ ROUTINE Patient Problems: Current Active Problems Problem Status Onset Dizziness Acute Condition: GOOD Print Language: HUNGARIAN Additional Instructions: Mr. Craig, thank you for letting us take care of you today. Your provider was Dr. Krishnamurthy. You were treated for dizziness and abdominal pain. The emergency medical care you received today was directed at your acute symptoms. If you were prescribed any medication, please fill it and take as directed. It may take several days for your symptoms to resolve. Return to the Emergency Department if your symptoms worsen, do not improve, or if you have any other problems. Please contact your doctor or call one of the physicians/clinics you have been referred to that are listed on the Patient Visit Information form that is included in your discharge packet. Bring any paperwork you were given at discharge with you along with any medications you are taking to your follow up visit. Our treatment cannot replace ongoing medical care by a primary care provider (PCP) outside of the emergency department. Thank you for allowing the [facility] team to be part of your care today. Prescriptions: chlordiazePOXIDE [Chlordiazepoxide HCl] See Taper PO DAILY #21 cap Referrals: Griselda Heard MD [Primary Care Provider] - Follow up with primary Forms: [employer] (Libyan)
[2017-07-10 09:51] VITALS: BP 145/95; PULSE 98; RESP 17; TEMP 97.8; O2SAT 98
--- NOTE | 2017-07-10 13:25 | CARD ---
APPROVED REPORT EKG Measurement Heart [id number] <Conclusion> Normal sinus rhythm Minimal voltage criteria for LVH, may be normal variant
== END 2017-07-10 09:51 | disposition home or self-care (01) ==
LOC: ED 07:12
DX: R42 Dizziness and giddiness (principal); I10 Essential (primary) hypertension; K21.9 Gastro-esophageal reflux disease without esophagitis; F17.210 Nicotine dependence, cigarettes, uncomplicated
CPT/HCPCS: 93005; 96361; 96374; 96375; 99285; J2060; J2405; J7040

== ENCOUNTER 2017-08-18 07:43 | Inpatient (IN) | payer MEDICAID ==
[2017-08-18] MEDS ORDERED: HYDROmorphone 1 mg/ml ISec IVP STA (08:05)
[2017-08-18] MEDS ORDERED: Famotidine 20mg/50ml 20 MG/50 ML BAG IVPB STA (08:05)
[2017-08-18] MEDS ORDERED: Sodium Chloride 0.9% 1,000 ML IV STA ×3 (08:05→15:25)
--- NOTE | 2017-08-18 08:13 | ED PDOC ---
Arrival/HPI - General Chief Complaint: Abdominal Pain Time Seen by Provider: 08/18/17 07:46 Historian: Patient - History of Present Illness Narrative History of Present Illness (Text): 08/18/17 08:11 Patient presents to emergency department stating that he developed sweats with upper abdominal pain and nausea upon awakening this morning 2 hours ago. He reports that he has been drinking alcohol, last time last night, but "I've cut down" and "I don't drink every day". Denies headaches. Denies chest pain or shortness of breath. Denies hematemesis. Reports loose stool but denies black or dark stool. No tremors or shaking. Time/Duration: Prior to Arrival Symptom Onset: Gradual Past Medical History - Infectious Disease Hx of Infectious Diseases: None - Tetanus Immunization Tetanus Immunization: Unknown - Reproductive Currently : No - Past Medical History Past Medical History: No Previous - Cardiac Hx Hypertension: Yes - Pulmonary Hx Respiratory Disorders: No - Neurological Hx Neurological Disorder: Yes Hx Dizziness: Yes Other/Comment: neuropathy - HEENT Hx HEENT Disorder: No - Renal Hx Renal Disorder: No - Endocrine/Metabolic Hx Endocrine Disorders: No - Hematological/Oncological Hx Blood Disorders: No - Integumentary Hx Dermatological Disorder: No - Musculoskeletal/Rheumatological Hx Musculoskeletal Disorders: No - Gastrointestinal Hx Gastrointestinal Disorders: Yes Hx Gastroesophageal Reflux: Yes - Genitourinary/Gynecological Hx Genitourinary Disorders: No - Psychiatric Hx Psychophysiologic Disorder: Yes Hx Anxiety: Yes Hx Depression: Yes Hx Substance Use: Yes Other/Comment: ETOH, substance abuse - Past Surgical History Past Surgical History: Non-Contributing - Surgical History Hx Musculoskeletal Surgery: Yes (R foot sx with rods/screws placed) Hx Orthopedic Surgery: Yes - Anesthesia Hx Anesthesia: Yes Hx Anesthesia Reactions: No Hx Malignant Hyperthermia: No - Suicidal Assessment Feels Threatened In Home Enviroment: No Family/Social History Family/Social History: Unknown Family HX Smoking Status: Current Some Days Smoker Hx Alcohol Use: Yes (DAILY VODKA AND BEER DAILY.) Hx Substance Use: Yes Substance used: marijuana & cocaine Hx Substance Use Treatment: No Allergies/Home Meds Allergies/Adverse Reactions: Allergies No Known Allergies Allergy (Verified 08/18/17 07:51) Home Medications: Home Meds Medication Instructions Recorded Confirmed Unobtainable 08/18/17 08/18/17 Review of Systems - Review of Systems Constitutional: Fatigue. absent: Fevers Eyes: absent: Vision Changes ENT: absent: Hearing Changes Respiratory: absent: SOB Cardiovascular: absent: Chest Pain Gastrointestinal: Abdominal Pain, Diarrhea, Nausea, Vomiting, Appetite Changes. absent: Constipation, Hematochezia, Hematemesis, Anorexia Genitourinary Male: absent: Dysuria, Frequency, Hematuria Musculoskeletal: absent: Back Pain, Neck Pain Skin: absent: Rash Neurological: absent: Headache, Dizziness, Focal Weakness Endocrine: absent: Polyuria, Polydipsia Hemo/Lymphatic: absent: Easy Bleeding Physical Exam Vital Signs Reviewed: Yes Vital Signs Temp Pulse Resp BP Pulse Ox 08/18/17 14:59 65 17 135/88 100 08/18/17 11:57 81 17 130/81 98 08/18/17 09:51 98.1 F 88 18 125/77 99 08/18/17 07:44 98.3 F 87 18 132/85 98 Temperature: Afebrile Appearance: Positive for: Ill-Appearing, Uncomfortable Pain Distress: Moderate Mental Status: Positive for: Alert and Oriented X 3 - Systems Exam Head: Present: Atraumatic, Normocephalic Pupils: Present: PERRL Extroacular Muscles: Present: EOMI Mouth: Present: Dry Pharnyx: No: ERYTHEMA Nose (Internal): Present: Normal Inspection Neck: Present: Normal Range of Motion. No: Meningeal Signs Respiratory/Chest: Present: Clear to Auscultation. No: Respiratory Distress Cardiovascular: Present: Regular Rate and Rhythm Abdomen: Present: Tenderness (moderate epigastric pain on palpation, no rebound or guarding, no pulsatile masses), Guarding. No: Peritoneal Signs, Rebound, Feeding Tubes Rectal: No: Occult Blood, Gross Blood, Melena Back: No: CVA Tenderness Upper Extremity: No: Cyanosis, Edema Lower Extremity: No: Edema, CALF TENDERNESS Neurological: Present: Speech Normal, Motor Func Grossly Intact, Normal Sensory Function, Normal Cerebellar Funct, Memory Normal Skin: Present: Warm Psychiatric: Present: Alert. No: Depressed Mood, Suicidal Ideation, Homicidal Ideation Medical Decision Making ED Course and Treatment: 08/18/17 08:17 Patient on initial exam is alert, oriented, with diffuse upper abdominal pain and actively vomiting. IV fluids initiated. Pain medication and iv pepcid, zofran ordered. He admits to drinking alcohol but states he has cut down. Currently no chest pain or shortness of breath. Labs ordered, will monitor and reassess. On re-evaluation, patient with improved nausea but persists. Pain unchanged classified as "10/10". On re-exam pain is now more localized to left upper quadrant. Recta exam refused. No gross blood or melena reported. Additional iv fluids and medication ordered. Extensive conversation had with patient regarding risks of alcohol abuse. I have reviewed most recent multiple visits. 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 Patient had had multiple CT abdomen/pelvis performed. Abnormal findings noted from PREVIOUS ct. Pain persistent and severe on re-evaluation. Patient states he never had colonoscopy or endoscopy performed since last admission. He denies history of colorectal cancer in family. Denies family history of inflammatory bowel disease. As patient has had MULTIPLE ct scans of abdomen/pelvis, attempted to manage patient with serial exams in emergency department. As pain persistent with localized guarding, unrelieved after pain medication, I had thorough discussion regarding patient's pain and risk factors. RISKS OF REPEATED RADIATION including CANCER, malignancy were reviewed with patient. However indications for CT include evaluation for perforation given history of alcohol abuse, risk of perforation/bleeding, and SEVERE persistent pain in context of recent abnormal CT. Patient understands risks of repeated CT scan although agreeable to procedure based on severity of pain. CT repeated, results reviewed with patient. He states pain still severe, thus will admit for serial exams, gi consultation. Will initiate rocephin, flagyl for pancolitis, have reviewed with patient need for alcohol and drug cessation, need for gastroenterology follow-up. IV continued, will keep NPO. Will admit to hospitalist service, case discussed with hospitalist Dr. Catalina Silverio, accepts admission to his service. - Lab Interpretations Lab Results: 08/18/17 08:00 08/18/17 08:00 Lab Results 08/18/17 08:29: Urine Color Yellow, Urine Appearance Clear, Urine pH 6.0, Ur Specific [place] >= 1.030, Urine Protein Trace H, Urine Glucose (UA) Negative, Urine Ketones Negative, Urine Blood Negative, Urine Nitrate Negative, Urine Bilirubin Negative, Urine Urobilinogen 0.2, Ur Leukocyte Esterase Negative, Urine RBC 0 - 2, Urine WBC 0 - 2, Ur Epithelial Cells 0 - 2 08/18/17 08:00: Alcohol, Quantitative 131 H 08/18/17 08:00: Sodium 143, Potassium 3.8, Chloride 104, Carbon Dioxide 24, Anion Gap 19, BUN 16, Creatinine 0.8, Est GFR ( Amer) > 60, Est GFR (Non- Af Amer) > 60, Random Glucose 105, Calcium 9.0, Magnesium 1.5 L, Total Bilirubin 0.3, AST 144 H, ALT 102 H, Alkaline Phosphatase 66, Lactate Dehydrogenase 787 H, Total Creatine Kinase 489 H, CK-MB (CK-2) 1.8, CK-MB (CK-2 ) % Cancelled, Troponin I < 0.01, Total Protein 6.7, Albumin 4.2, Globulin 2.5, Albumin/Globulin Ratio 1.7, Amylase 46, Lipase 130 08/18/17 08:00: PT 13.0 H, INR 1.18 H, APTT 25.2 08/18/17 08:00: WBC 3.1 L D, RBC 3.89, Hgb 11.3 L, Hct 34.2 L, MCV 87.9, MCH 29.0, MCHC 33.0, RDW 14.9 H, Plt Count 145, MPV 10.8, Gran % 50.6, Lymph % (Auto ) 38.9 H, [place] % (Auto) 9.3 H, Eos % (Auto) 0.6 L, Baso % (Auto) 0.6, Gran # 1.57, Lymph # 1.2, Baldwin # 0.3, Eos # 0.0, Baso # 0.02 - RAD Interpretation Radiology Orders: 08/18/17 11:55 ABD & PELVIS W/O PO OR IV CONT [CT] Stat - Medication Orders Current Medication Orders: Metronidazole (Flagyl) 500 mg in 100 mls @ 100 mls/hr IVPB STAT STA PRN Reason: Protocol Stop: 08/18/17 16:24 Sodium Chloride (Sodium Chloride 0.9%) 1,000 mls @ 1,000 mls/hr IV .Q1H STA Stop: 08/18/17 16:24 Last Admin: 08/18/17 15:54 Dose: 1,000 mls/hr eMAR Start Stop Document 08/18/17 15:54 IT (Rec: 08/18/17 15:54 IT [id number]) Intravenous Solution Start Date 08/18/17 Start Time 15:54 End Date 08/18/17 End time 16:54 Total Infusion Time 60 Discontinued Medications Hydromorphone HCl (Dilaudid) 1 mg IVP STAT STA Stop: 08/18/17 08:06 Last Admin: 08/18/17 08:18 Dose: 1 mg MAR Pain Assessment Document 08/18/17 08:18 IT (Rec: 08/18/17 08:18 IT [id number]) Pain Reassessment Is this a pain reassessment? No Sleep Is patient sleeping during reassessment? No Presence of Pain Presence of Pain Yes Pain Scale Used Pain Scale Used Numeric Location Left, Right or Bilateral Bilateral Pain Location Body Site Abdomen IVP Administration Document 08/18/17 08:18 IT (Rec: 08/18/17 08:18 IT [id number]) Charges for Administration # of IVP Administrations 1 Famotidine (Pepcid 20mg/50ml Premix) 20 mg in 50 mls @ 100 mls/hr IVPB STAT STA Stop: 08/18/17 08:34 Last Admin: 08/18/17 08:18 Dose: 100 mls/hr eMAR Start Stop Document 08/18/17 08:18 IT (Rec: 08/18/17 08:19 IT [id number]) Intravenous Solution Start Date 08/18/17 Start Time 08:18 End Date 08/18/17 End time 08:40 Total Infusion Time 22 Sodium Chloride (Sodium Chloride 0.9%) 1,000 mls @ 1,000 mls/hr IV .Q1H STA Stop: 08/18/17 09:04 Last Admin: 08/18/17 08:16 Dose: 1,000 mls/hr eMAR Start Stop Document 08/18/17 08:16 IT (Rec: 08/18/17 08:16 IT [id number]) Intravenous Solution Start Date 08/18/17 Start Time 08:16 End Date 08/18/17 End time 09:16 Total Infusion Time 60 Sodium Chloride (Sodium Chloride 0.9%) 1,000 mls @ 1,000 mls/hr IV .Q1H STA Stop: 08/18/17 11:03 Last Admin: 08/18/17 10:26 Dose: 1,000 mls/hr eMAR Start Stop Document 08/18/17 10:26 IT (Rec: 08/18/17 10:26 IT [id number]) Intravenous Solution Start Date 08/18/17 Start Time 10:26 End Date 08/18/17 End time 11:26 Total Infusion Time 60 Ceftriaxone Sodium (Rocephin 1 Gram Ivpb) 1 gm in 100 mls @ 200 mls/hr IVPB ONCE STA PRN Reason: Protocol Stop: 08/18/17 15:53 Last Admin: 08/18/17 15:53 Dose: 200 mls/hr eMAR Start Stop Document 08/18/17 15:53 IT (Rec: 08/18/17 15:53 IT [id number]) Intravenous Solution Start Date 08/18/17 Start Time 15:53 End Date 08/18/17 End time 16:20 Total Infusion Time 27 Morphine Sulfate (Morphine) 2 mg IVP STAT STA Stop: 08/18/17 11:58 Last Admin: 08/18/17 12:17 Dose: 2 mg MAR Pain Assessment Document 08/18/17 12:17 IT (Rec: 08/18/17 12:21 IT [id number]) Pain Reassessment Is this a pain reassessment? No Sleep Is patient sleeping during reassessment? No Presence of Pain Presence of Pain Yes Pain Scale Used Pain Scale Used Numeric Location Left, Right or Bilateral Bilateral Pain Location Body Site Abdomen IVP Administration Document 08/18/17 12:17 IT (Rec: 08/18/17 12:21 IT [id number]) Charges for Administration # of IVP Administrations 1 Ondansetron HCl (Zofran Inj) 4 mg IVP ONCE ONE Stop: 08/18/17 08:06 Last Admin: 08/18/17 08:18 Dose: 4 mg IVP Administration Document 08/18/17 08:18 IT (Rec: 08/18/17 08:18 IT [id number]) Charges for Administration # of IVP Administrations 1 Ondansetron HCl (Zofran Inj) 4 mg IVP ONCE ONE Stop: 08/18/17 15:26 Last Admin: 08/18/17 15:54 Dose: 4 mg IVP Administration Document 08/18/17 15:54 IT (Rec: 08/18/17 15:54 IT [id number]) Charges for Administration # of IVP Administrations 1 Disposition/Present on Arrival - Present on Arrival Any Indicators Present on Arrival: No History of DVT/PE: No History of Uncontrolled Diabetes: No Urinary Catheter: No History of Decub. Ulcer: No History Surgical Site Infection Following: None - Disposition Have Diagnosis and Disposition been Completed?: Yes Diagnosis: Abdominal pain, Alcohol abuse, Pancolitis Disposition: HOSPITALIZED Disposition Time: 15:00 Patient Plan: Admission Patient Problems: Current Active Problems Problem Status Onset Abdominal pain Acute Pancolitis Acute Alcohol abuse Chronic Condition: FAIR Discharge Instructions (ExitCare): Ulcerative Colitis (ED) Referrals: Griselda Heard MD [Primary Care Provider] - Follow up with primary Forms: [employer] (Khmer)
[2017-08-18 08:17] LABS: BASO # 0.02 K/mm3 (0.0-2.0); BASO % 0.6 % (0.0-3.0); EOS % 0.6 % (1.5-5.0); GRAN # 1.57 (1.4-6.5); GRAN % 50.6 % (50.0-68.0); HEMATOCRIT 34.2 % (42.0-52.0); LYMPH # 1.2 (1.2-3.4); LYMPH % 38.9 % (22.0-35.0); MEAN CELL VOLUME 87.9 fl (80.0-105.0); MEAN PLATELET VOLUME 10.8 fl (7.0-11.0); MONO # 0.3 (0.1-0.6); MONO % 9.3 % (1.0-6.0); RED CELL DISTRIBUTION WIDTH 14.9 % (11.5-14.5); WHITE BLOOD COUNT 3.1 10^3/ul (4.5-11.0)
[2017-08-18 08:35] LABS: INR 1.18 (0.93-1.08); PARTIAL THROMBOPLASTIN TIME 25.2 Seconds (25.1-36.5)
[2017-08-18 08:37] LABS: ALB/GLOB RATIO 1.7 (1.1-1.8); ALKALINE PHOSPHATASE 66 U/L (38-126); ALT/SGPT 102 U/L (7-56); AMYLASE 46 U/L (35-125); AST/SGOT 144 U/L (17-59); BILIRUBIN,TOTAL 0.3 mg/dL (0.2-1.3); BLOOD UREA NITROGEN 16 mg/dL (7-21); CARBON DIOXIDE 24 mmol/L (21-33); CHLORIDE 104 mmol/L (98-107); GFR AFRICAN-AMERICAN > 60; GLUCOSE,RANDOM 105 mg/dL (70-110); LIPASE 130 U/L (23-300); MAGNESIUM 1.5 mg/dL (1.7-2.2); POTASSIUM 3.8 mmol/L (3.6-5.0); SODIUM 143 mmol/L (132-148); TOTAL PROTEIN 6.7 g/dL (5.8-8.3)
[2017-08-18 08:40] LABS: URINE BILIRUBIN NEGATIVE (NEGATIVE); URINE BLOOD NEGATIVE (NEGATIVE); URINE GLUCOSE (UA) NEGATIVE (NEGATIVE); URINE KETONE NEGATIVE (NEGATIVE); URINE LEUKOCYTE ESTERASE NEGATIVE Leu/uL (NEGATIVE); URINE PROTEIN TRACE mg/dL (<30 mg/dL); URINE UROBILINOGEN 0.2 E.U./dL (<1 E.U./dL)
[2017-08-18 08:42] LABS: URINE APPEARANCE CLEAR (CLEAR); URINE COLOR YELLOW (YELLOW)
[2017-08-18 08:43] LABS: URINE EPITHELIAL CELLS 0 - 2 /hpf (0-5); URINE RBC 0 - 2 /hpf (0-2); URINE WBC 0 - 2 /hpf (0-6)
[2017-08-18 08:51] LABS: TROPONIN I < 0.01 ng/mL
[2017-08-18] MEDS ORDERED: Morphine 2 mg/ml ISec IVP STA (11:57)
--- NOTE | 2017-08-18 14:18 | CT ---
PROCEDURE: CT Abdomen and Pelvis without intravenous contrast HISTORY: severe diffuse abdominal pain COMPARISON: CT 06/20/2017 TECHNIQUE: Without oral or IV contrast. Contrast Dose: Radiation dose: Total exam DLP = 478 mGy-cm. This CT exam was performed using one or more of the following dose reduction techniques: Automated exposure control, adjustment of the mA and/or kV according to patient size, and/or use of iterative reconstruction technique. FINDINGS: LOWER THORAX: Unremarkable. LIVER: Unremarkable. No gross lesion or ductal dilatation. GALLBLADDER AND BILE DUCTS: Unremarkable. PANCREAS: Unremarkable. No gross lesion or ductal dilatation. SPLEEN: Unremarkable. ADRENALS: Unremarkable. No mass. KIDNEYS AND URETERS: Unremarkable. No hydronephrosis. No solid mass. VASCULATURE: Unremarkable. No aortic aneurysm. BOWEL: The study is limited by lack of IV and oral contrast. There is mild mural thickening throughout the colon consistent with colitis. This finding was also seen on the previous exam. APPENDIX: Unremarkable. Normal appendix. PERITONEUM: Unremarkable. No free fluid. No free air. LYMPH NODES: Unremarkable. No enlarged lymph nodes. BLADDER: Unremarkable. REPRODUCTIVE: Unremarkable. BONES: No acute fracture. OTHER FINDINGS: None. IMPRESSION: The study is limited by lack of IV and oral contrast. There is mild mural thickening throughout the colon consistent with colitis. This finding was also seen on the previous exam.
[2017-08-18] MEDS ORDERED: cefTRIAXone 1 gm 1 GM/100 ML BAG IVPB STA (15:24)
[2017-08-18] MEDS ORDERED: metroNIDAZOLE IV 500 mg/100 ml 500 MG/100 ML BAG IVPB STA (15:25)
[2017-08-18] MEDS ORDERED: Morphine 4 mg/ml ISec IVP PRN (16:28)
[2017-08-18] MEDS ORDERED: Multivitamin (MVI) 10 ML, Thiamine 100 MG, Folic Acid 1 MG in Sodium Chloride 0.9% 1,00... IV ONE (16:33)
[2017-08-18] MEDS ORDERED: Magnesium Sulfate 2 GM in Sodium Chloride 0.9% 100 ML IVPB ONE (16:34)
--- NOTE | 2017-08-18 16:44 | CP.PCM.HP ---
<Bello Bridges - Last Filed: 08/18/17 16:52> History of Present Illness - History of Present Illness History of Present Illness: CC: abd pain, diarrhea, nausea, vomiting 42M with pmh of etoh abuse, anxiety, and colitis presents to the ED with severe abd pain. Pt states that he went out drinking last night and this morning he woke up with abdominal pain, diarrhea, nausea and vomiting. Patient states that he had >10 episodes of non bloody vomiting and 4 episodes of non bloody diarrhea. He states that his abd pain is located in the L lower quadrant, non radiating and 10/10 in severity. He admits to drinking very heavily yesterday at [place] [employer] and doing some cocaine. He denies eating any this out of the ordinary. Denies any recent sick contacts or travel. 12 Point ROS performed and negative other than stated above. PMH: etoh abuse, anxiety, and colitis PSH: R ankle surgery Med: refer to [facility] ALL: [facility] SH: admits to drinking heavily, cocaine, and smoking 4-5 cig a day FH: denies Present on Admission - Present on Admission Any Indicators Present on Admission: No Review of Systems - Review of Systems All systems: reviewed and no additional remarkable complaints except Past Patient History - Infectious Disease Hx of Infectious Diseases: None - Tetanus Immunizations Tetanus Immunization: Unknown - Past Medical History & Family History Past Medical History?: Yes - Past Social History Smoking Status: Current Some Days Smoker - CARDIAC Hx Hypertension: Yes - PULMONARY Hx Respiratory Disorders: No - NEUROLOGICAL Hx Neurological Disorder: Yes Hx Dizziness: Yes Other/Comment: neuropathy - HEENT Hx HEENT Problems: No - RENAL Hx Chronic Kidney Disease: No - ENDOCRINE/METABOLIC Hx Endocrine Disorders: No - HEMATOLOGICAL/ONCOLOGICAL Hx Blood Disorders: No - INTEGUMENTARY Hx Dermatological Problems: No - MUSCULOSKELETAL/RHEUMATOLOGICAL Hx Musculoskeletal Disorders: No - GASTROINTESTINAL Hx Gastrointestinal Disorders: Yes Hx Gastroesophageal Reflux: Yes - GENITOURINARY/GYNECOLOGICAL Hx Genitourinary Disorders: No - PSYCHIATRIC Hx Psychophysiologic Disorder: Yes Hx Anxiety: Yes Hx Depression: Yes Hx Substance Use: Yes Other/Comment: ETOH, substance abuse - SURGICAL HISTORY Hx Musculoskeletal Surgery: Yes (R foot sx with rods/screws placed) Hx Orthopedic Surgery: Yes - ANESTHESIA Hx Anesthesia: Yes Hx Anesthesia Reactions: No Hx Malignant Hyperthermia: No Meds Allergies/Adverse Reactions: Allergies Allergy/AdvReac Type Severity Reaction Status Date / Time No Known Allergies Allergy Verified 08/18/17 07:51 Physical Exam - Constitutional Appears: No Acute Distress - Head Exam Head Exam: ATRAUMATIC, NORMOCEPHALIC - Eye Exam Eye Exam: EOMI, PERRL - ENT Exam ENT Exam: Mucous Membranes Moist - Respiratory Exam Respiratory Exam: Clear to Auscultation Bilateral. absent: Rales, Rhonchi, Wheezes - Cardiovascular Exam Cardiovascular Exam: REGULAR RHYTHM, +S1, +S2 - GI/Abdominal Exam GI & Abdominal Exam: Normal Bowel Sounds, Soft. absent: Distended, Guarding, Rigid, Tenderness - Extremities Exam Extremities exam: Negative for: calf tenderness, pedal edema - Neurological Exam Neurological exam: Alert, Oriented x3 - Psychiatric Exam Psychiatric exam: Normal Affect, Normal Mood - Skin Skin Exam: Dry, Intact, Warm Results - Vital Signs Recent Vital Signs: Last Vital Signs Temp 98.1 F 08/18/17 09:51 Pulse 65 08/18/17 14:59 Resp 17 08/18/17 14:59 BP 135/88 08/18/17 14:59 Pulse Ox 100 08/18/17 14:59 - Labs Result Diagrams: 08/18/17 08:00 08/18/17 08:00 Labs: Laboratory Results - last 24 hr 08/18/17 08/18/17 08/18/17 08:00 08:00 08:00 WBC 3.1 L D RBC 3.89 Hgb 11.3 L Hct 34.2 L MCV 87.9 MCH 29.0 MCHC 33.0 RDW 14.9 H Plt Count 145 MPV 10.8 Gran % 50.6 Lymph % (Auto) 38.9 H [place] % (Auto) 9.3 H Eos % (Auto) 0.6 L Baso % (Auto) 0.6 Gran # 1.57 Lymph # 1.2 [place] # 0.3 Eos # 0.0 Baso # 0.02 PT 13.0 H INR 1.18 H APTT 25.2 Sodium 143 Potassium 3.8 Chloride 104 Carbon Dioxide 24 Anion Gap 19 BUN 16 Creatinine 0.8 Est GFR ( Amer) > 60 Est GFR (Non-Af Amer) > 60 Random Glucose 105 Calcium 9.0 Magnesium 1.5 L Total Bilirubin 0.3 AST 144 H ALT 102 H Alkaline Phosphatase 66 Lactate Dehydrogenase 787 H Total Creatine Kinase 489 H CK-MB (CK-2) 1.8 CK-MB (CK-2) % Cancelled Troponin I < 0.01 Total Protein 6.7 Albumin 4.2 Globulin 2.5 Albumin/Globulin Ratio 1.7 Amylase 46 Lipase 130 Urine Color Urine Appearance Urine pH Ur Specific [place] Urine Protein Urine Glucose (UA) Urine Ketones Urine Blood Urine Nitrate Urine Bilirubin Urine Urobilinogen Ur Leukocyte Esterase Urine RBC Urine WBC Ur Epithelial Cells Alcohol, Quantitative 08/18/17 08/18/17 08:00 08:29 WBC RBC Hgb Hct MCV MCH MCHC RDW Plt Count MPV Gran % Lymph % (Auto) [place] % (Auto) Eos % (Auto) Baso % (Auto) Gran # Lymph # [place] # Eos # Baso # PT INR APTT Sodium Potassium Chloride Carbon Dioxide Anion Gap BUN Creatinine Est GFR ( Amer) Est GFR (Non-Af Amer) Random Glucose Calcium Magnesium Total Bilirubin AST ALT Alkaline Phosphatase Lactate Dehydrogenase Total Creatine Kinase CK-MB (CK-2) CK-MB (CK-2) % Troponin I Total Protein Albumin Globulin Albumin/Globulin Ratio Amylase Lipase Urine Color Yellow Urine Appearance Clear Urine pH 6.0 Ur Specific [place] >= 1.030 Urine Protein Trace H Urine Glucose (UA) Negative Urine Ketones Negative Urine Blood Negative Urine Nitrate Negative Urine Bilirubin Negative Urine Urobilinogen 0.2 Ur Leukocyte Esterase Negative Urine RBC 0 - 2 Urine WBC 0 - 2 Ur Epithelial Cells 0 - 2 Alcohol, Quantitative 131 H Assessment & Plan - Assessment and Plan (Free Text) Assessment: 42M with pmh of etoh abuse, anxiety, and colitis presents to the ED with severe abd pain accompanied with nausea, vomiting, and diarrhea. CT abd shows some thickening consistent with colitis. 1. Abdominal pain likely 2/2 Colitis - NPO - Afebrile and no leukocytosis - CT abd shows colitis - Pain control - Cont Rocephin and Flagyl - GI consult for recs - Antiemetics - Protonix 40mg IVP daily - Morning labs 2. Transaminitits likely 2/2 ETOH abuse - AST 144, ALT: 102 - Cont to monitor - CT abd shows colitis 3. ETOH withdrwals - ETOH level of 131 - CIWA - Ativan 2mg Q6H ALEXANDRA, 2mg Q2H PRN - Fall precautions - Banana bag - ETOH and drug cessation strongly advised 4. Hypomagnesium - Mg of 1.5 - Replete with Mg SO4 2gm as needed 5. GI/DVT ppx - protonix and SCDs Case and plan was reviewed and discussed in detail with Dr Silverio. <Luisito Silverio - Last Filed: 08/18/17 17:12> Results - Vital Signs Recent Vital Signs: Last Vital Signs Temp 98.1 F 08/18/17 09:51 Pulse 65 08/18/17 14:59 Resp 17 08/18/17 14:59 BP 135/88 08/18/17 14:59 Pulse Ox 100 08/18/17 14:59 - Labs Result Diagrams: 08/18/17 08:00 08/18/17 08:00 Attending/Attestation - Attestation I have personally seen and examined this patient.: Yes I have fully participated in the care of the patient.: Yes I have reviewed all pertinent clinical information: Yes Notes (Text): 08/18/17 17:09 Patient was seen and examined with medical language specialist. Agreed with resident assessment and plan. 42 year old male with past medical history of hypertension, chronic ETOH and cocain abuse who presented with complaint of abdominal pain associated with with nausea , vomiting and diarrhea. CT abd/pelvis showed colitis which is old finding, he was supposed to have outpatient Colonoscopy, never had any follow up. His LFT are mildly up from his base line. We will watch for alcohol withdrawal. Agreed with IV Ceftriaxone and metronidazole.We will get GI consult. Management plan was discussed in detail with patient Education was provided.
--- NOTE | 2017-08-18 20:56 | CARD ---
APPROVED REPORT EKG Measurement Heart [id number] IL [id number] <Conclusion> Sinus rhythm with occasional premature ventricular complexes Minimal voltage criteria for LVH, may be normal variant Borderline ECG
[2017-08-18 21:03] VITALS: BMI 20.9
[2017-08-18] MEDS: metroNIDAZOLE IV 500 mg/100 ml 500 MG/100 ML BAG IVPB SCH (21:57)
[2017-08-19] MEDS: metroNIDAZOLE IV 500 mg/100 ml 500 MG/100 ML BAG IVPB SCH ×3 (05:25→21:45)
[2017-08-19 06:37] LABS: BASO # 0.02 K/mm3 (0.0-2.0); BASO % 0.7 % (0.0-3.0); EOS # 0.1 (0.0-0.7); GRAN # 1.43 (1.4-6.5); GRAN % 51.1 % (50.0-68.0); HEMATOCRIT 34.8 % (42.0-52.0); LYMPH % 36.4 % (22.0-35.0); MEAN CELL VOLUME 87.7 fl (80.0-105.0); MEAN CORPUSCULAR HEMOGLOBIN 28.5 pg (25.0-35.0); MEAN CORPUSCULAR HGB CONC 32.5 g/dl (31.0-37.0); MEAN PLATELET VOLUME 11.8 fl (7.0-11.0); MONO # 0.3 (0.1-0.6); RED CELL DISTRIBUTION WIDTH 14.6 % (11.5-14.5)
[2017-08-19 06:52] LABS: WHITE BLOOD COUNT 2.8 10^3/ul (4.5-11.0)
[2017-08-19 06:53] LABS: EOS % 1.8 % (1.5-5.0)
[2017-08-19 07:21] LABS: ALB/GLOB RATIO 1.5 (1.1-1.8); ALKALINE PHOSPHATASE 71 U/L (38-126); ALT/SGPT 122 U/L (7-56); AST/SGOT 171 U/L (17-59); BILIRUBIN,TOTAL 1.1 mg/dL (0.2-1.3); BLOOD UREA NITROGEN 6 mg/dL (7-21); CALCIUM 8.1 mg/dL (8.4-10.5); CARBON DIOXIDE 27 mmol/L (21-33); CHLORIDE 101 mmol/L (95-110); GFR AFRICAN-AMERICAN > 60; GLUCOSE,RANDOM 89 mg/dL (70-110); MAGNESIUM 1.8 mg/dL (1.7-2.2); POTASSIUM 3.1 mmol/L (3.6-5.0); SODIUM 137 mmol/L (132-148); TOTAL PROTEIN 6.7 g/dL (5.8-8.3)
[2017-08-19] MEDS: Folic Acid 1 MG, Thiamine 100 MG, Multivitamin (MVI) 10 ML in Dextrose 5% In Water 1,00... IV SCH ×2 (11:18→21:44)
[2017-08-19] MEDS: cefTRIAXone 1 gm 1 GM/100 ML BAG IVPB SCH (11:21)
--- NOTE | 2017-08-19 11:29 | CP.PCM.PN ---
<Gertrudis Da Silvan - Last Filed: 08/19/17 11:38> Subjective - Date & Time of Evaluation Date of Evaluation: 08/19/17 Time of Evaluation: 09:30 - Subjective Subjective: Medicine Progress note Patient seen and examined at bedside this morning. No acute events overnight. Patient currently NPO, and states he has an appetite. Complaining of continued Left lower quadrant abdominal pain that is tolerable and better since arrival. Denies current Fevers, chills, chest pain, shortness of breath, nausea, vomiting. Objective - Vital Signs/Intake and Output Vital Signs (last 24 hours): Temp Pulse Resp BP Pulse Ox 98.3 F 84 20 121/95 H 100 08/19/17 08:47 08/19/17 08:47 08/19/17 08:47 08/19/17 08:47 08/19/17 08:47 Intake and Output: 08/19/17 08/19/17 06:59 18:59 Intake Total 1160 Output Total 2125 Balance -965 - Medications Medications: Current Medications Metronidazole (Flagyl) 500 mg in 100 mls @ 100 mls/hr IVPB Q8 ALEXANDRA PRN Reason: Protocol Last Admin: 08/19/17 05:25 Dose: 100 mls/hr Ceftriaxone Sodium (Rocephin 1 Gram Ivpb) 1 gm in 100 mls @ 100 mls/hr IVPB DAILY ALEXANDRA PRN Reason: Protocol Folic Acid 1 mg/ Thiamine HCl 100 mg/ Multivitamins/Vitamin C 10 ml/ Dextrose 1 ,011.2 mls @ 100 mls/hr IV .Q10H7M ALEXANDRA Lorazepam (Ativan) 2 mg IVP Q6H PRN; Protocol PRN Reason: Anxiety Lorazepam (Ativan) 2 mg IVP Q2H PRN; Protocol PRN Reason: Agitation Morphine Sulfate (Morphine) 2 mg IVP Q4H PRN PRN Reason: Pain, severe (8-10) Ondansetron HCl (Zofran Inj) 4 mg IVP Q4H PRN PRN Reason: Nausea/Vomiting Pantoprazole Sodium (Protonix Inj) 40 mg IVP DAILY ALEXANDRA - Labs Labs: 08/19/17 06:27 08/19/17 06:00 PT 13.0 SECONDS (9.4-12.5) H 08/18/17 08:00 INR 1.18 (0.93-1.08) H 08/18/17 08:00 APTT 25.2 Seconds (25.1-36.5) 08/18/17 08:00 - Constitutional Appears: Non-toxic, No Acute Distress - Eye Exam Eye Exam: EOMI. absent: Scleral icterus - ENT Exam ENT Exam: Mucous Membranes Moist - Respiratory Exam Respiratory Exam: NORMAL BREATHING PATTERN. absent: Accessory Muscle Use, Rhonchi, Wheezes, Respiratory Distress - Cardiovascular Exam Cardiovascular Exam: REGULAR RHYTHM, +S1, +S2. absent: Bradycardia, Tachycardia - GI/Abdominal Exam GI & Abdominal Exam: Soft, Tenderness, Normal Bowel Sounds. absent: Distended, Rigid, Mass - Extremities Exam Extremities Exam: Normal Inspection. absent: Calf Tenderness - Neurological Exam Neurological Exam: Alert, Awake, Oriented x3 - Psychiatric Exam Psychiatric exam: Normal Affect - Skin Skin Exam: Normal Color, Warm Assessment and Plan - Assessment and Plan (Free Text) Assessment: 42M PMHx of alcohol abuse, HTN, anxiety, cocaine use admitted for multiple episodes of non-bloody nausea and vomiting, and evaluation and treatment for colitis and alcohol abuse. CT abd/pelvis showed colitis. Colitis CT Scan- mild to moderate mural wall thickening consistent w/ colitis similar to previous CT scan GI consulted Possible colonoscopy as outpatient Pain control- Morphine PRN Nausea- Zofran PRN Start clear liquid diet today Flagyl & CTX Morphine PRN for pain Zofran PRN for nausea CT showed mild to merate mural thickening and edema consistent with colitis Alcohol Abuse, possible withdrawal CIWA score 0 Banana bag in D51/2 Ativan 2 mg Q3H prn, none required overnight counseled patient to quit drinking and smoking Hypomagnesmia/Hypokalemia Mg 1.8 IV Magnesium sulfate K 3.1 K-ned 20meq x2 monitor lytes, replete PRN h/o HTN pt non-compliant w/ medications home med: Amlodipine normotensive since being in hospital. will hold Home meds for now Hydralazine PRN if hypertensive if Systolc > 180 or diastolic > 100, Stop if HR < 55 GI/DVT PPx PTX SCDs <Addie Melendez - Last Filed: 08/19/17 17:52> Objective - Vital Signs/Intake and Output Vital Signs (last 24 hours): Temp Pulse Resp BP Pulse Ox 98.7 F 79 97 H 139/94 H 100 08/19/17 16:00 08/19/17 16:00 08/19/17 16:00 08/19/17 16:00 08/19/17 08:47 Intake and Output: 08/19/17 08/19/17 06:59 18:59 Intake Total 1160 Output Total 2125 Balance -965 - Medications Medications: Current Medications Hydralazine HCl (Apresoline) 10 mg IVP Q6 PRN PRN Reason: Other Metronidazole (Flagyl) 500 mg in 100 mls @ 100 mls/hr IVPB Q8 ALEXANDRA PRN Reason: Protocol Last Admin: 08/19/17 15:27 Dose: 100 mls/hr Ceftriaxone Sodium (Rocephin 1 Gram Ivpb) 1 gm in 100 mls @ 100 mls/hr IVPB DAILY [facility] PRN Reason: Protocol Last Admin: 08/19/17 11:21 Dose: 100 mls/hr Folic Acid 1 mg/ Thiamine HCl 100 mg/ Multivitamins/Vitamin C 10 ml/ Dextrose 1 ,011.2 mls @ 100 mls/hr IV .Q10H7M [facility] Last Admin: 08/19/17 11:18 Dose: 100 mls/hr Lorazepam (Ativan) 2 mg IVP Q6H PRN; Protocol PRN Reason: Anxiety Lorazepam (Ativan) 2 mg IVP Q2H PRN; Protocol PRN Reason: Agitation Morphine Sulfate (Morphine) 2 mg IVP Q4H PRN PRN Reason: Pain, severe (8-10) Last Admin: 08/19/17 11:30 Dose: 2 mg Ondansetron HCl (Zofran Inj) 4 mg IVP Q4H PRN PRN Reason: Nausea/Vomiting Pantoprazole Sodium (Protonix Inj) 40 mg IVP DAILY [facility] Last Admin: 08/19/17 11:26 Dose: 40 mg - Labs Labs: 08/19/17 06:27 08/19/17 06:00 PT 13.0 SECONDS (9.4-12.5) H 08/18/17 08:00 INR 1.18 (0.93-1.08) H 08/18/17 08:00 APTT 25.2 Seconds (25.1-36.5) 08/18/17 08:00 Attending/Attestation - Attestation I have personally seen and examined this patient.: Yes I have fully participated in the care of the patient.: Yes I have reviewed all pertinent clinical information, including history, physical exam and plan: Yes Notes (Text): 08/19/17 17:48 42 year old male with past medical history of alcohol abuse, cocaine abuse and anxiety who presented with complaint of LLQ abdominal pain with nausea and vomiting. CT abd/pelvis showed colitis. He is on iv antibiotics. GI evaluation was appreciated. Recommended colonoscopy as outpatient. Diet is advanced to clear liquids today. He was also counselled on alcohol cessation. He is on banana bag and ativan prn for withdrawal symptoms. Elevated LFTs likely secondary to chronic ETOH abuse. Will continue to monitor. Recent hepatitis panel was negative. His potassium was 3.1 today which we will replete and repeat. Addie Melendez MD Hospitalist.
--- NOTE | 2017-08-19 13:06 | CP.PCM.CON ---
<Dina Pérez - Last Filed: 08/19/17 13:05> History of Present Illness - History of Present Illness History of Present Illness: Seen and examined at the placenta earlier today, the chart was reviewed. Request for GI consult is for colitis. HPI: This is a 42-year-old male with a past medical history of anxiety, EtOH abuse and colitis, came to the emergency room with complaints of severe abdominal pain. The patient stated that he went out drinking the night before and woke up yesterday morning with abdominal pain, diarrhea, nausea, and vomiting. He denies fever or chills. He reported more than 10 episodes of nonbloody vomiting and 4 episodes of diarrhea, no melena or bright red blood per rectum. He denies hematemesis. He complains of pain to the left lower quadrant. Denies any recent antibiotic use, travel, dietary and take, or sick contacts. The patient had a CT scan of abdomen and pelvis which was limited due to lack of IV and oral contrast. Showed mild thickening throughout the colon consistent with colitis.the patient denies any further episodes of diarrhea since admission. He did have in the past back in May episode of colitis, he was recommended to have colonoscopy and GI follow-up but patient reported that he failed to follow-up. He denies any weight loss or loss of appetite. Past medical history: Colitis, anxiety, EtOH abuse Surgical history: Denies abdominal or cardiac procedures, right ankle surgery Allergies: No known drug allergies Medications: Reviewed as per MAR Social history: Positive for heavy drinking, last intake was prior to admission, Positive for cocaine, last intake was a few days ago,Positive tobacco use Family history: Noncontributory ROS: Systems reviewed with positive finding see HPI Past Patient History - Infectious Disease Hx of Infectious Diseases: None - Tetanus Immunizations Tetanus Immunization: Unknown - Past Medical History & Family History Past Medical History?: Yes - Past Social History Smoking Status: Current Some Days Smoker - CARDIAC Hx Hypertension: Yes - PULMONARY Hx Respiratory Disorders: No - NEUROLOGICAL Hx Neurological Disorder: Yes Hx Dizziness: Yes Other/Comment: neuropathy - HEENT Hx HEENT Problems: No - RENAL Hx Chronic Kidney Disease: No - ENDOCRINE/METABOLIC Hx Endocrine Disorders: No - HEMATOLOGICAL/ONCOLOGICAL Hx Blood Disorders: No - INTEGUMENTARY Hx Dermatological Problems: No - MUSCULOSKELETAL/RHEUMATOLOGICAL Hx Falls: No - GASTROINTESTINAL Hx Gastrointestinal Disorders: Yes Hx Gastroesophageal Reflux: Yes - GENITOURINARY/GYNECOLOGICAL Hx Genitourinary Disorders: No - PSYCHIATRIC Hx Psychophysiologic Disorder: Yes Hx Anxiety: Yes Hx Depression: Yes Other/Comment: ETOH, substance abuse - SURGICAL HISTORY Hx Musculoskeletal Surgery: Yes (R foot sx with rods/screws placed) Hx Orthopedic Surgery: Yes - ANESTHESIA Hx Anesthesia: Yes Hx Anesthesia Reactions: No Hx Malignant Hyperthermia: No Meds Allergies/Adverse Reactions: Allergies Allergy/AdvReac Type Severity Reaction Status Date / Time No Known Allergies Allergy Verified 08/18/17 07:51 - Medications Medications: Current Medications Hydralazine HCl (Apresoline) 10 mg IVP Q6 PRN PRN Reason: Other Metronidazole (Flagyl) 500 mg in 100 mls @ 100 mls/hr IVPB Q8 [facility] PRN Reason: Protocol Last Admin: 08/19/17 05:25 Dose: 100 mls/hr Ceftriaxone Sodium (Rocephin 1 Gram Ivpb) 1 gm in 100 mls @ 100 mls/hr IVPB DAILY [facility] PRN Reason: Protocol Last Admin: 08/19/17 11:21 Dose: 100 mls/hr Folic Acid 1 mg/ Thiamine HCl 100 mg/ Multivitamins/Vitamin C 10 ml/ Dextrose 1 ,011.2 mls @ 100 mls/hr IV .Q10H7M [facility] Last Admin: 08/19/17 11:18 Dose: 100 mls/hr Potassium Chloride (Potassium Chloride 20 Meq/100 Ml) 20 meq in 100 mls @ 50 mls/hr IVPB ONCE ONE Stop: 08/19/17 13:39 Lorazepam (Ativan) 2 mg IVP Q6H PRN; Protocol PRN Reason: Anxiety Lorazepam (Ativan) 2 mg IVP Q2H PRN; Protocol PRN Reason: Agitation Morphine Sulfate (Morphine) 2 mg IVP Q4H PRN PRN Reason: Pain, severe (8-10) Last Admin: 08/19/17 11:30 Dose: 2 mg Ondansetron HCl (Zofran Inj) 4 mg IVP Q4H PRN PRN Reason: Nausea/Vomiting Pantoprazole Sodium (Protonix Inj) 40 mg IVP DAILY [facility] Last Admin: 08/19/17 11:26 Dose: 40 mg Physical Exam - Constitutional Appears: No Acute Distress - Head Exam Head Exam: NORMOCEPHALIC - Eye Exam Eye Exam: Normal appearance. absent: Scleral icterus - ENT Exam ENT Exam: Mucous Membranes Moist - Neck Exam Neck exam: Positive for: Normal Inspection - Respiratory Exam Respiratory Exam: Clear to Auscultation Bilateral, NORMAL BREATHING PATTERN. absent: Respiratory Distress - Cardiovascular Exam Cardiovascular Exam: +S1, +S2 - GI/Abdominal Exam GI & Abdominal Exam: Soft, Tenderness (left lower quadrant). absent: Guarding, Rebound - Neurological Exam Neurological exam: Alert, CN II-XII Intact, Oriented x3 - Skin Skin Exam: Dry, Warm Results - Vital Signs Recent Vital Signs: Last Vital Signs Temp 98.3 F 08/19/17 08:47 Pulse 84 08/19/17 08:47 Resp 20 08/19/17 08:47 BP 121/95 H 08/19/17 08:47 Pulse Ox 100 08/19/17 08:47 - Labs Result Diagrams: 08/19/17 06:27 08/19/17 06:00 Labs: Laboratory Results - last 24 hr 08/18/17 08/19/17 08/19/17 20:45 06:00 06:27 WBC 2.8 L* RBC 3.97 Hgb 11.3 L Hct 34.8 L MCV 87.7 MCH 28.5 MCHC 32.5 RDW 14.6 H Plt Count 137 MPV 11.8 H Gran % 51.1 Lymph % (Auto) 36.4 H [place] % (Auto) 10.0 H Eos % (Auto) 1.8 Baso % (Auto) 0.7 Gran # 1.43 Lymph # 1.0 L [place] # 0.3 Eos # 0.1 Baso # 0.02 Sodium 137 Potassium 3.1 L Chloride 101 Carbon Dioxide 27 Anion Gap 12 BUN 6 L Creatinine 0.8 Est GFR ( Amer) > 60 Est GFR (Non-Af Amer) > 60 Random Glucose 89 Calcium 8.1 L Magnesium 1.8 Total Bilirubin 1.1 AST 171 H ALT 122 H Alkaline Phosphatase 71 Total Protein 6.7 Albumin 4.0 Globulin 2.7 Albumin/Globulin Ratio 1.5 Urine Opiates Screen Negative Urine Methadone Screen Negative Ur Barbiturates Screen Negative Ur Phencyclidine Scrn Negative Ur Amphetamines Screen Negative U Benzodiazepines Scrn Positive H U Oth Cocaine Metabols Positive H U Cannabinoids Screen Negative Assessment & Plan - Assessment and Plan (Free Text) Assessment: Assessment: Abdominal pain mostly in the left lower quadrant Nausea, vomiting, diarrhea status post CT scan found to have colitis throughout the colon, unknown etiology EtOH abuse hypokalemia Plan: Clear liquid diet, on IVF w/ MVI Continue IV antibiotics: on Flagyl and Rocephin Stool for C. difficile/culture Continue PPI Continue DVT prophylaxis Monitor electrolytes and replace as necessary Would benefit from 4-6 weeks colonoscopy after resolution of colitis, discuss w / patient. Thank you for this consult and follow us to participate in your patient's care, further recommendations upon clinical course. Seen and discussed with Dr. Nolasco.ERCP <Mauricio Nolasco V - Last Filed: 08/19/17 23:50> Meds - Medications Medications: Current Medications Hydralazine HCl (Apresoline) 10 mg IVP Q6 PRN PRN Reason: Other Metronidazole (Flagyl) 500 mg in 100 mls @ 100 mls/hr IVPB Q8 [facility] PRN Reason: Protocol Last Admin: 08/19/17 21:45 Dose: 100 mls/hr Ceftriaxone Sodium (Rocephin 1 Gram Ivpb) 1 gm in 100 mls @ 100 mls/hr IVPB DAILY [facility] PRN Reason: Protocol Last Admin: 08/19/17 11:21 Dose: 100 mls/hr Folic Acid 1 mg/ Thiamine HCl 100 mg/ Multivitamins/Vitamin C 10 ml/ Dextrose 1 ,011.2 mls @ 100 mls/hr IV .Q10H7M [facility] Last Admin: 08/19/17 21:44 Dose: 100 mls/hr Lorazepam (Ativan) 2 mg IVP Q6H PRN; Protocol PRN Reason: Anxiety Lorazepam (Ativan) 2 mg IVP Q2H PRN; Protocol PRN Reason: Agitation Morphine Sulfate (Morphine) 2 mg IVP Q4H PRN PRN Reason: Pain, severe (8-10) Last Admin: 08/19/17 11:30 Dose: 2 mg Ondansetron HCl (Zofran Inj) 4 mg IVP Q4H PRN PRN Reason: Nausea/Vomiting Pantoprazole Sodium (Protonix Inj) 40 mg IVP DAILY [facility] Last Admin: 08/19/17 11:26 Dose: 40 mg Results - Vital Signs Recent Vital Signs: Last Vital Signs Temp 98.7 F 08/19/17 16:00 Pulse 79 08/19/17 16:00 Resp 97 H 08/19/17 16:00 BP 139/94 H 08/19/17 16:00 Pulse Ox 100 08/19/17 08:47 - Labs Result Diagrams: 08/19/17 06:27 08/19/17 06:00 Labs: Laboratory Results - last 24 hr 08/19/17 08/19/17 06:00 06:27 WBC 2.8 L* RBC 3.97 Hgb 11.3 L Hct 34.8 L MCV 87.7 MCH 28.5 MCHC 32.5 RDW 14.6 H Plt Count 137 MPV 11.8 H Gran % 51.1 Lymph % (Auto) 36.4 H [place] % (Auto) 10.0 H Eos % (Auto) 1.8 Baso % (Auto) 0.7 Gran # 1.43 Lymph # 1.0 L [place] # 0.3 Eos # 0.1 Baso # 0.02 Sodium 137 Potassium 3.1 L Chloride 101 Carbon Dioxide 27 Anion Gap 12 BUN 6 L Creatinine 0.8 Est GFR ( Amer) > 60 Est GFR (Non-Af Amer) > 60 Random Glucose 89 Calcium 8.1 L Magnesium 1.8 Total Bilirubin 1.1 AST 171 H ALT 122 H Alkaline Phosphatase 71 Total Protein 6.7 Albumin 4.0 Globulin 2.7 Albumin/Globulin Ratio 1.5 Attending/Attestation - Attestation I have personally seen and examined this patient.: Yes I have fully participated in the care of the patient.: Yes I have reviewed all pertinent clinical information: Yes Notes (Text): This is an addendum to GI progress report dictated by Dina Pérez APN.The patient was seen and examined earlier. Medical records, lab studies, imagings were reviewed. Last 24 hours events reviewed. Agreed with the above treatment plan as outlined in Dina Pérez APN's notes the with the addition of the following Patient describes acute onset abdominal pain diarrhea started 5 AM yesterday no bleeding per rectum this time so far Previous GI evaluation noticed patient did not to follow up for outpatient GI workup. Imaging studies previous and pleasant CT scans reviewed Continue the antibiotics Follow up cultures Slowly advanced the diet patient would need GI workup. The timing will be based on the clinical course 08/19/17 23:48
[2017-08-20 07:14] LABS: BASO # 0.02 K/mm3 (0.0-2.0); BASO % 0.7 % (0.0-3.0); EOS # 0.1 (0.0-0.7); GRAN # 1.03 (1.4-6.5); HEMATOCRIT 34.5 % (42.0-52.0); LYMPH # 1.2 (1.2-3.4); LYMPH % 44.1 % (22.0-35.0); MEAN CELL VOLUME 87.1 fl (80.0-105.0); MEAN CORPUSCULAR HEMOGLOBIN 28.5 pg (25.0-35.0); MEAN CORPUSCULAR HGB CONC 32.8 g/dl (31.0-37.0); MEAN PLATELET VOLUME 11.6 fl (7.0-11.0); MONO # 0.4 (0.1-0.6); MONO % 13.2 % (1.0-6.0); RED CELL DISTRIBUTION WIDTH 14.4 % (11.5-14.5)
[2017-08-20 07:33] LABS: ALB/GLOB RATIO 1.5 (1.1-1.8); ALKALINE PHOSPHATASE 66 U/L (38-126); ALT/SGPT 104 U/L (7-56); AST/SGOT 106 U/L (17-59); BILIRUBIN,TOTAL 0.9 mg/dL (0.2-1.3); BLOOD UREA NITROGEN 3 mg/dL (7-21); CALCIUM 8.8 mg/dL (8.4-10.5); CARBON DIOXIDE 27 mmol/L (21-33); CHLORIDE 100 mmol/L (95-110); GFR AFRICAN-AMERICAN > 60; GLUCOSE,RANDOM 109 mg/dL (70-110); POTASSIUM 3.1 mmol/L (3.6-5.0); SODIUM 137 mmol/L (132-148); TOTAL PROTEIN 6.7 g/dL (5.8-8.3)
[2017-08-20 07:40] LABS: WHITE BLOOD COUNT 2.7 10^3/ul (4.5-11.0)
[2017-08-20] MEDS: cefTRIAXone 1 gm 1 GM/100 ML BAG IVPB SCH (10:03)
[2017-08-20] MEDS: Folic Acid 1 MG, Thiamine 100 MG, Multivitamin (MVI) 10 ML in Dextrose 5% In Water 1,00... IV SCH ×2 (10:17→21:58)
[2017-08-20] MEDS ORDERED: Magnesium Sulfate 2 GM in Sodium Chloride 0.9% 100 ML IVPB ONE (11:31)
--- NOTE | 2017-08-20 13:50 | CP.PCM.PN ---
<ShivaniRobson - Last Filed: 08/20/17 14:42> Subjective - Date & Time of Evaluation Date of Evaluation: 08/20/17 Time of Evaluation: 13:47 - Subjective Subjective: Patient seen and examined at bedside on general medical floor. No acute events overnight reported. Patient continues to have loose stools from admission. Patient able to tolerate clear liquid diet and denies nausea and vomiting. Patient continues to express mild left lower quadrant abdominal discomfort and multiple loose bowel movements. Patient reports improved symptoms clinically. Patient denies any agitation, sweating, hallucinations or tremors. Patient denies chest pain, shortness of breath, fever and chills. Objective - Vital Signs/Intake and Output Vital Signs (last 24 hours): Temp Pulse Resp BP Pulse Ox 98.9 F 73 20 130/99 H 100 08/20/17 08:17 08/20/17 08:17 08/20/17 08:17 08/20/17 08:17 08/20/17 08:17 Intake and Output: 08/20/17 08/20/17 06:59 18:59 Intake Total 1780 360 Output Total 900 1600 Balance 880 -1240 - Medications Medications: Current Medications Hydralazine HCl (Apresoline) 10 mg IVP Q6 PRN PRN Reason: Other Metronidazole (Flagyl) 500 mg in 100 mls @ 100 mls/hr IVPB Q8 [facility]A PRN Reason: Protocol Last Admin: 08/19/17 21:45 Dose: 100 mls/hr Ceftriaxone Sodium (Rocephin 1 Gram Ivpb) 1 gm in 100 mls @ 100 mls/hr IVPB DAILY [facility] PRN Reason: Protocol Last Admin: 08/20/17 10:03 Dose: 100 mls/hr Folic Acid 1 mg/ Thiamine HCl 100 mg/ Multivitamins/Vitamin C 10 ml/ Dextrose 1 ,011.2 mls @ 100 mls/hr IV .Q10H7M [facility] Last Admin: 08/20/17 10:17 Dose: 100 mls/hr Potassium Chloride (Potassium Chloride 20 Meq/100 Ml) 20 meq in 100 mls @ 50 mls/hr IVPB Q2H [facility] Stop: 08/20/17 15:29 Last Admin: 08/20/17 12:14 Dose: 50 mls/hr Lorazepam (Ativan) 2 mg IVP Q6H PRN; Protocol PRN Reason: Anxiety Lorazepam (Ativan) 2 mg IVP Q2H PRN; Protocol PRN Reason: Agitation Morphine Sulfate (Morphine) 2 mg IVP Q4H PRN PRN Reason: Pain, severe (8-10) Last Admin: 08/19/17 11:30 Dose: 2 mg Ondansetron HCl (Zofran Inj) 4 mg IVP Q4H PRN PRN Reason: Nausea/Vomiting Pantoprazole Sodium (Protonix Inj) 40 mg IVP DAILY [facility] Last Admin: 08/20/17 10:03 Dose: 40 mg - Labs Labs: 08/20/17 07:00 08/20/17 07:00 PT 13.0 SECONDS (9.4-12.5) H 08/18/17 08:00 INR 1.18 (0.93-1.08) H 08/18/17 08:00 APTT 25.2 Seconds (25.1-36.5) 08/18/17 08:00 - Head Exam Head Exam: ATRAUMATIC, NORMAL INSPECTION - Eye Exam Eye Exam: EOMI, PERRL - ENT Exam ENT Exam: Mucous Membranes Moist, Normal Exam - Neck Exam Neck Exam: Full ROM - Respiratory Exam Respiratory Exam: Clear to Ausculation Bilateral, NORMAL BREATHING PATTERN - Cardiovascular Exam Cardiovascular Exam: REGULAR RHYTHM, +S1, +S2 - GI/Abdominal Exam GI & Abdominal Exam: Soft, Tenderness (left lower quadrant with mild palpation) . absent: Rigid, Hyperactive Bowel Sounds, Rebound - Extremities Exam Extremities Exam: Full ROM, Normal Capillary Refill. absent: Calf Tenderness - Back Exam Back Exam: absent: CVA tenderness (L), CVA tenderness (R) - Neurological Exam Neurological Exam: Alert, Awake, CN II-XII Intact, Normal Gait, Oriented x3 Additional comments: motor and sensory grossly intact - Psychiatric Exam Psychiatric exam: Normal Affect, Normal Mood. absent: Depressed - Skin Skin Exam: Dry, Intact, Normal Color Assessment and Plan - Assessment and Plan (Free Text) Assessment: 42 year old male with past medical history of alcohol abuse, HTN, anxiety, cocaine use admitted for multiple episodes of non-bloody nausea and vomiting, and evaluation and treatment for colitis and alcohol abuse. Patient continue to have loose stools with C. Difficile antigen negative Plan: Colitis CT Scan- mild to moderate mural wall thickening consistent w/ colitis similar to previous CT scan GI consulted and following - recommending continued clinical observation with outpatient colonoscopy in 4-6 weeks with resolution of colitis - Advance diet as tolerated - Continue current medical management with flagyl and ceftriaxone, morphine, zofran Patient continues to have loose bowels and will require further observation and repeat testing for C. difficle Ag Alcohol Abuse, possible withdrawal CIWA score 0 Continue with Banana bag in D51/2 Ativan 2 mg Q3H prn, none required overnight counseled patient to quit drinking and smoking Hypomagnesmia/Hypokalemia Replete with Mag sulfate K 3.1, replete with K-ned 20meq x2 Continue to monitor electrolytes and replete as necessary Hx of HTN pt non-compliant w/ medications home med: Amlodipine normotensive since being in hospital. will hold Home meds for now Hydralazine PRN if hypertensive if Systolc > 180 or diastolic > 100, Stop if HR < 55 GI/DVT PPx PTX SCDs Case and plan discussed with attending <Addie Melendez - Last Filed: 08/20/17 15:46> Objective - Vital Signs/Intake and Output Vital Signs (last 24 hours): Temp Pulse Resp BP Pulse Ox 98.9 F 73 20 130/99 H 100 08/20/17 08:17 08/20/17 08:17 08/20/17 08:17 08/20/17 08:17 08/20/17 08:17 Intake and Output: 08/20/17 08/20/17 06:59 18:59 Intake Total 1780 1560 Output Total 900 2300 Balance 880 -740 - Medications Medications: Current Medications Hydralazine HCl (Apresoline) 10 mg IVP Q6 PRN PRN Reason: Other Metronidazole (Flagyl) 500 mg in 100 mls @ 100 mls/hr IVPB Q8 [facility]DRA PRN Reason: Protocol Last Admin: 08/19/17 21:45 Dose: 100 mls/hr Ceftriaxone Sodium (Rocephin 1 Gram Ivpb) 1 gm in 100 mls @ 100 mls/hr IVPB DAILY [facility] PRN Reason: Protocol Last Admin: 08/20/17 10:03 Dose: 100 mls/hr Folic Acid 1 mg/ Thiamine HCl 100 mg/ Multivitamins/Vitamin C 10 ml/ Dextrose 1 ,011.2 mls @ 100 mls/hr IV .Q10H7M [facility] Last Admin: 08/20/17 10:17 Dose: 100 mls/hr Lorazepam (Ativan) 2 mg IVP Q6H PRN; Protocol PRN Reason: Anxiety Lorazepam (Ativan) 2 mg IVP Q2H PRN; Protocol PRN Reason: Agitation Morphine Sulfate (Morphine) 2 mg IVP Q4H PRN PRN Reason: Pain, severe (8-10) Last Admin: 08/19/17 11:30 Dose: 2 mg Ondansetron HCl (Zofran Inj) 4 mg IVP Q4H PRN PRN Reason: Nausea/Vomiting Pantoprazole Sodium (Protonix Inj) 40 mg IVP DAILY [facility] Last Admin: 08/20/17 10:03 Dose: 40 mg - Labs Labs: 08/20/17 07:00 08/20/17 07:00 PT 13.0 SECONDS (9.4-12.5) H 08/18/17 08:00 INR 1.18 (0.93-1.08) H 08/18/17 08:00 APTT 25.2 Seconds (25.1-36.5) 08/18/17 08:00 Attending/Attestation - Attestation I have personally seen and examined this patient.: Yes I have fully participated in the care of the patient.: Yes I have reviewed all pertinent clinical information, including history, physical exam and plan: Yes Notes (Text): 08/20/17 15:44 42 year old male with past medical history of alcohol abuse, cocaine abuse and anxiety who presented with complaint of LLQ abdominal pain with nausea and vomiting. CT abd/pelvis showed colitis. Continue with iv antibiotics. GI evaluation was appreciated who recommended colonoscopy as outpatient. Today he still complains of loose stools although his abdominal pain has improved. Continue with iv fluids. Advance diet as tolerated. Will repeat CDif study. He was also counselled on alcohol cessation. He is on banana bag and ativan prn for withdrawal symptoms which is currently not exhibiting. Elevated LFTs likely secondary to chronic ETOH abuse. Will continue to monitor. Recent hepatitis panel was negative. Will replete and repeat lytes. D/c planning once his diarrhea improves. Addie Melendez MD Hospitalist.
[2017-08-20] MEDS: metroNIDAZOLE IV 500 mg/100 ml 500 MG/100 ML BAG IVPB SCH ×2 (16:19→21:58)
[2017-08-20] MEDS ORDERED: Potassium Chloride 20 mEq ER Tab PO ONE (17:33)
--- NOTE | 2017-08-20 19:23 | CP.PCM.PN ---
<Dina Pérez - Last Filed: 08/20/17 19:22> Subjective - Date & Time of Evaluation Date of Evaluation: 08/20/17 Time of Evaluation: 10:45 - Subjective Subjective: Seen and examined at the bedside earlier today, patient abdominal pain improve, 02/04, no reports of nausea, vomiting, fever or chills. Reports some loose BM. Denies shortness of breath or chest pain. Tolerating clear liquid diet, patient wants to eat. Objective - Vital Signs/Intake and Output Vital Signs (last 24 hours): Temp Pulse Resp BP Pulse Ox 99.9 F H 82 18 130/95 H 100 08/20/17 17:10 08/20/17 17:45 08/20/17 17:10 08/20/17 17:10 08/20/17 17:10 Intake and Output: 08/20/17 08/21/17 18:59 06:59 Intake Total 1560 Output Total 2300 Balance -740 - Medications Medications: Current Medications Hydralazine HCl (Apresoline) 10 mg IVP Q6 PRN PRN Reason: Other Metronidazole (Flagyl) 500 mg in 100 mls @ 100 mls/hr IVPB Q8 [facility] PRN Reason: Protocol Last Admin: 08/20/17 16:19 Dose: 100 mls/hr Ceftriaxone Sodium (Rocephin 1 Gram Ivpb) 1 gm in 100 mls @ 100 mls/hr IVPB DAILY [facility] PRN Reason: Protocol Last Admin: 08/20/17 10:03 Dose: 100 mls/hr Folic Acid 1 mg/ Thiamine HCl 100 mg/ Multivitamins/Vitamin C 10 ml/ Dextrose 1 ,011.2 mls @ 100 mls/hr IV .Q10H7M [facility] Last Admin: 08/20/17 10:17 Dose: 100 mls/hr Lorazepam (Ativan) 2 mg IVP Q6H PRN; Protocol PRN Reason: Anxiety Lorazepam (Ativan) 2 mg IVP Q2H PRN; Protocol PRN Reason: Agitation Morphine Sulfate (Morphine) 2 mg IVP Q4H PRN PRN Reason: Pain, severe (8-10) Last Admin: 08/19/17 11:30 Dose: 2 mg Ondansetron HCl (Zofran Inj) 4 mg IVP Q4H PRN PRN Reason: Nausea/Vomiting Pantoprazole Sodium (Protonix Inj) 40 mg IVP DAILY [facility] Last Admin: 08/20/17 10:03 Dose: 40 mg - Labs Labs: 08/20/17 07:00 08/20/17 07:00 PT 13.0 SECONDS (9.4-12.5) H 08/18/17 08:00 INR 1.18 (0.93-1.08) H 08/18/17 08:00 APTT 25.2 Seconds (25.1-36.5) 08/18/17 08:00 - Constitutional Appears: No Acute Distress - Head Exam Head Exam: NORMOCEPHALIC - Eye Exam Eye Exam: absent: Scleral icterus - ENT Exam ENT Exam: Mucous Membranes Moist - Respiratory Exam Respiratory Exam: Clear to Ausculation Bilateral, NORMAL BREATHING PATTERN. absent: Respiratory Distress - Cardiovascular Exam Cardiovascular Exam: +S1, +S2 - GI/Abdominal Exam GI & Abdominal Exam: Soft, Normal Bowel Sounds. absent: Guarding, Tenderness, Organomegaly, Rebound - Extremities Exam Extremities Exam: Normal Capillary Refill. absent: Calf Tenderness, Pedal Edema - Neurological Exam Neurological Exam: Alert, Awake, Oriented x3 - Skin Skin Exam: Dry, Warm Assessment and Plan - Assessment and Plan (Free Text) Assessment: Assessment: Abdominal pain mostly in the left lower quadrant Nausea, vomiting, diarrhea status post CT scan found to have colitis throughout the colon, unknown etiology EtOH abuse hypokalemia Transaminitis, mainly AST ALT, likely secondary to EtOH, alcohol quantitative was 131. Patient did have hepatitis serology and abdominal ultrasound which was negative for acute findings, this was done on 05/2017. Plan: advance diet to soft low residual on IVF w/ MVI Continue IV antibiotics: on Flagyl and Rocephin Stool for C. difficile/culture, FU results Continue PPI Continue DVT prophylaxis Monitor electrolytes and replace as necessary trend LFT Would benefit from 4-6 weeks colonoscopy after resolution of colitis, discuss w / patient. Seen and discussed with Dr. Nolasco. <Mauricio Nolasco V - Last Filed: 08/20/17 23:35> Objective - Vital Signs/Intake and Output Vital Signs (last 24 hours): Temp Pulse Resp BP Pulse Ox 99.9 F H 82 18 130/95 H 100 08/20/17 17:10 08/20/17 17:45 08/20/17 17:10 08/20/17 17:10 08/20/17 17:10 Intake and Output: 08/20/17 08/21/17 18:59 06:59 Intake Total 1560 420 Output Total 2300 1375 Balance -850 -155 - Medications Medications: Current Medications Hydralazine HCl (Apresoline) 10 mg IVP Q6 PRN PRN Reason: Other Metronidazole (Flagyl) 500 mg in 100 mls @ 100 mls/hr IVPB Q8 [facility] PRN Reason: Protocol Last Admin: 08/20/17 21:58 Dose: 100 mls/hr Ceftriaxone Sodium (Rocephin 1 Gram Ivpb) 1 gm in 100 mls @ 100 mls/hr IVPB DAILY [facility] PRN Reason: Protocol Last Admin: 08/20/17 10:03 Dose: 100 mls/hr Folic Acid 1 mg/ Thiamine HCl 100 mg/ Multivitamins/Vitamin C 10 ml/ Dextrose 1 ,011.2 mls @ 100 mls/hr IV .Q10H7M [facility] Last Admin: 08/20/17 21:58 Dose: 100 mls/hr Lorazepam (Ativan) 2 mg IVP Q6H PRN; Protocol PRN Reason: Anxiety Lorazepam (Ativan) 2 mg IVP Q2H PRN; Protocol PRN Reason: Agitation Morphine Sulfate (Morphine) 2 mg IVP Q4H PRN PRN Reason: Pain, severe (8-10) Last Admin: 08/19/17 11:30 Dose: 2 mg Ondansetron HCl (Zofran Inj) 4 mg IVP Q4H PRN PRN Reason: Nausea/Vomiting Pantoprazole Sodium (Protonix Inj) 40 mg IVP DAILY [facility] Last Admin: 08/20/17 10:03 Dose: 40 mg - Labs Labs: 08/20/17 07:00 08/20/17 07:00 PT 13.0 SECONDS (9.4-12.5) H 08/18/17 08:00 INR 1.18 (0.93-1.08) H 08/18/17 08:00 APTT 25.2 Seconds (25.1-36.5) 08/18/17 08:00 Attending/Attestation - Attestation I have personally seen and examined this patient.: Yes I have fully participated in the care of the patient.: Yes I have reviewed all pertinent clinical information, including history, physical exam and plan: Yes Notes (Text): This is an addendum to GI progress report dictated by Dina Pérez APN.The patient was seen and examined earlier. Medical records, lab studies, imagings were reviewed. Last 24 hours events reviewed. Agreed with the above treatment plan as outlined in Dina Pérez APN's notes the with the addition of the following Clinically patient is improving that has been constant abdomen soft minimal tenderness present now. Colitis clinically improving patient would need a elective colonoscopy evaluation completed the antibiotic course 08/20/17 23:34
[2017-08-21 00:19] VITALS: RESP 20
[2017-08-21 04:36] VITALS: PULSE 75
[2017-08-21] MEDS: metroNIDAZOLE IV 500 mg/100 ml 500 MG/100 ML BAG IVPB SCH ×2 (06:10→13:22)
[2017-08-21 06:42] LABS: BASO # 0.01 K/mm3 (0.0-2.0); BASO % 0.3 % (0.0-3.0); EOS # 0.1 (0.0-0.7); EOS % 2.6 % (1.5-5.0); GRAN # 1.56 (1.4-6.5); HEMATOCRIT 37.1 % (42.0-52.0); LYMPH # 1.5 (1.2-3.4); LYMPH % 43.1 % (22.0-35.0); MEAN CELL VOLUME 88.3 fl (80.0-105.0); MEAN CORPUSCULAR HEMOGLOBIN 28.6 pg (25.0-35.0); MEAN CORPUSCULAR HGB CONC 32.3 g/dl (31.0-37.0); MEAN PLATELET VOLUME 11.3 fl (7.0-11.0); MONO # 0.3 (0.1-0.6); RED CELL DISTRIBUTION WIDTH 14.7 % (11.5-14.5); WHITE BLOOD COUNT 3.5 10^3/ul (4.5-11.0)
[2017-08-21 07:16] LABS: ALB/GLOB RATIO 1.4 (1.1-1.8); ALKALINE PHOSPHATASE 59 U/L (38-126); ALT/SGPT 125 U/L (7-56); AST/SGOT 117 U/L (17-59); BILIRUBIN,TOTAL 0.5 mg/dL (0.2-1.3); BLOOD UREA NITROGEN 4 mg/dL (7-21); CALCIUM 9.3 mg/dL (8.4-10.5); CARBON DIOXIDE 26 mmol/L (21-33); CHLORIDE 103 mmol/L (95-110); GFR AFRICAN-AMERICAN > 60; GLUCOSE,RANDOM 106 mg/dL (70-110); MAGNESIUM 1.9 mg/dL (1.7-2.2); PHOSPHOROUS 3.6 mg/dL (2.5-4.5); POTASSIUM 3.7 mmol/L (3.6-5.0); SODIUM 138 mmol/L (132-148)
[2017-08-21 09:04] VITALS: BP 117/87; TEMP 98.1; O2SAT 100
[2017-08-21] MEDS: cefTRIAXone 1 gm 1 GM/100 ML BAG IVPB SCH (10:32)
--- NOTE | 2017-08-21 11:14 | CP.PCM.DIS ---
<Alexis Da Silva - Last Filed: 08/21/17 11:22> Provider - Provider Date of Admission: 08/18/17 15:48 Attending physician: Addie Melendez MD Primary care physician: Griselda Heard MD Time Spent in preparation of Discharge (in minutes): 45 Hospital Course - Lab Results Lab Results: Micro Results 08/18/17 16:00 Urine Urine Culture - Final No Growth (<1,000 CFU/ML) 08/19/17 13:37 Stool C. difficile Antigen & Toxin A,B (M - Final Most Recent Lab Values WBC 3.5 10^3/ul (4.5-11.0) L D 08/21/17 05:30 RBC 4.20 10^6/uL (3.5-6.1) 08/21/17 05:30 Hgb 12.0 g/dL (14.0-18.0) L 08/21/17 05:30 Hct 37.1 % (42.0-52.0) L 08/21/17 05:30 MCV 88.3 fl (80.0-105.0) 08/21/17 05:30 MCH 28.6 pg (25.0-35.0) 08/21/17 05:30 MCHC 32.3 g/dl (31.0-37.0) 08/21/17 05:30 RDW 14.7 % (11.5-14.5) H 08/21/17 05:30 Plt Count 134 10^3/uL (120.0-450.0) 08/21/17 05:30 MPV 11.3 fl (7.0-11.0) H 08/21/17 05:30 Gran % 45.0 % (50.0-68.0) L 08/21/17 05:30 Lymph % (Auto) 43.1 % (22.0-35.0) H 08/21/17 05:30 [place] % (Auto) 9.0 % (1.0-6.0) H 08/21/17 05:30 Eos % (Auto) 2.6 % (1.5-5.0) 08/21/17 05:30 Baso % (Auto) 0.3 % (0.0-3.0) 08/21/17 05:30 Gran # 1.56 (1.4-6.5) 08/21/17 05:30 Lymph # 1.5 (1.2-3.4) 08/21/17 05:30 [place] # 0.3 (0.1-0.6) 08/21/17 05:30 Eos # 0.1 (0.0-0.7) 08/21/17 05:30 Baso # 0.01 K/mm3 (0.0-2.0) 08/21/17 05:30 PT 13.0 SECONDS (9.4-12.5) H 08/18/17 08:00 INR 1.18 (0.93-1.08) H 08/18/17 08:00 APTT 25.2 Seconds (25.1-36.5) 08/18/17 08:00 Sodium 138 mmol/L (132-148) 08/21/17 05:30 Potassium 3.7 mmol/L (3.6-5.0) 08/21/17 05:30 Chloride 103 mmol/L (95-110) 08/21/17 05:30 Carbon Dioxide 26 mmol/L (21-33) 08/21/17 05:30 Anion Gap 13 (10-20) 08/21/17 05:30 BUN 4 mg/dL (7-21) L 08/21/17 05:30 Creatinine 0.8 mg/dL (0.8-1.5) 08/21/17 05:30 Est GFR ( Amer) > 60 08/21/17 05:30 Est GFR (Non-Af Amer) > 60 08/21/17 05:30 Random Glucose 106 mg/dL (70-110) 08/21/17 05:30 Calcium 9.3 mg/dL (8.4-10.5) 08/21/17 05:30 Phosphorus 3.6 mg/dL (2.5-4.5) 08/21/17 05:30 Magnesium 1.9 mg/dL (1.7-2.2) 08/21/17 05:30 Total Bilirubin 0.5 mg/dL (0.2-1.3) 08/21/17 05:30 AST 117 U/L (17-59) H 08/21/17 05:30 ALT 125 U/L (7-56) H 08/21/17 05:30 Alkaline Phosphatase 59 U/L (38-126) 08/21/17 05:30 Lactate Dehydrogenase 787 U/L (333-699) H 08/18/17 08:00 Total Creatine Kinase 489 U/L (35-230) H 08/18/17 08:00 CK-MB (CK-2) 1.8 ng/mL (0.0-3.6) 08/18/17 08:00 CK-MB (CK-2) % Cancelled 08/18/17 08:00 Troponin I < 0.01 ng/mL 08/18/17 08:00 Total Protein 7.0 g/dL (5.8-8.3) 08/21/17 05:30 Albumin 4.1 g/dL (3.0-4.8) 08/21/17 05:30 Globulin 2.9 gm/dL 08/21/17 05:30 Albumin/Globulin Ratio 1.4 (1.1-1.8) 08/21/17 05:30 Amylase 46 U/L (35-125) 08/18/17 08:00 Lipase 130 U/L (23-300) 08/18/17 08:00 Urine Color Yellow (YELLOW) 08/18/17 08:29 Urine Appearance Clear (CLEAR) 08/18/17 08:29 Urine pH 6.0 (4.7-8.0) 08/18/17 08:29 Ur Specific Delano >= 1.030 (1.005-1.035) 08/18/17 08:29 Urine Protein Trace mg/dL (<30 mg/dL) H 08/18/17 08:29 Urine Glucose (UA) Negative mg/dL (NEGATIVE) 08/18/17 08:29 Urine Ketones Negative mg/dL (NEGATIVE) 08/18/17 08:29 Urine Blood Negative (NEGATIVE) 08/18/17 08:29 Urine Nitrate Negative (NEGATIVE) 08/18/17 08: Urine Bilirubin Negative (NEGATIVE) 08/18/17 08:29 Urine Urobilinogen 0.2 E.U./dL (<1 E.U./dL) 08/18/17 08:29 Ur Leukocyte Esterase Negative Georges/uL (NEGATIVE) 08/18/17 08:29 Urine RBC 0 - 2 /hpf (0-2) 08/18/17 08:29 Urine WBC 0 - 2 /hpf (0-6) 08/18/17 08:29 Ur Epithelial Cells 0 - 2 /hpf (0-5) 08/18/17 08:29 Urine Opiates Screen Negative (NEGATIVE) 08/18/17 20:45 Urine Methadone Screen Negative (NEGATIVE) 08/18/17 20:45 Ur Barbiturates Screen Negative (NEGATIVE) 08/18/17 20:45 Ur Phencyclidine Scrn Negative (NEGATIVE) 08/18/17 20:45 Ur Amphetamines Screen Negative (NEGATIVE) 08/18/17 20:45 U Benzodiazepines Scrn Positive (NEGATIVE) H 08/18/17 20:45 U Oth Cocaine Metabols Positive (NEGATIVE) H 08/18/17 20:45 U Cannabinoids Screen Negative (NEGATIVE) 08/18/17 20:45 Alcohol, Quantitative 131 mg/dL (0-10) H 08/18/17 08:00 - Hospital Course Hospital Course: 42M with pmh of etoh abuse, anxiety, and colitis presents to the ED with severe abd pain. Pt states that he went out drinking and woke up with abdominal pain, diarrhea, nausea and vomiting. Patient states that he had >10 episodes of non bloody vomiting and 4 episodes of non bloody diarrhea. He states that his abd pain is located in the L lower quadrant, non radiating and 10/10 in severity. He admits to drinking heavily and doing some cocaine. He denies eating any this out of the ordinary. Denies any recent sick contacts or travel. CT scan shows mural wall thickening throughout the colon consistent with colitis. These findings are similar to previous CT. GI was consulted. Diet was advanced to regular as tolerated with no nausea or vomiting. C.Diff results came back negative. Physical therapy evaluated patient for unsteadiness most likely due to consistent alcohol use. All labs and vitals are stable. Patient discharged home in good condition. Advised patient to stop drinking and recreational drug use Discharge Exam - Head Exam Head Exam: ATRAUMATIC, NORMOCEPHALIC - Eye Exam Eye Exam: EOMI. absent: Scleral icterus - ENT Exam ENT Exam: Mucous Membranes Moist - Respiratory Exam Respiratory Exam: NORMAL BREATHING PATTERN. absent: Accessory Muscle Use, Respiratory Distress - Cardiovascular Exam Cardiovascular Exam: +S1, +S2. absent: Bradycardia, Tachycardia - GI/Abdominal Exam GI & Abdominal Exam: Normal Bowel Sounds, Soft. absent: Distended, Firm, Guarding, Hernia, Tenderness - Neurological Exam Neurological exam: Alert, Oriented x3 - Psychiatric Exam Psychiatric exam: Normal Affect, Normal Mood - Skin Skin Exam: Normal Color Discharge Plan - Discharge Medications Prescriptions: Ciprofloxacin [Cipro] 500 mg PO BID 10 Days tab Folic Acid 1 mg PO DAILY 10 Days tab Metronidazole [Flagyl] 500 mg PO BID 10 Days tablet Multivitamin Therapeutic Tab [Thera Tab] 1 tab PO 0800 10 Days tab Thiamine [Vitamin B1 Tab] 50 mg PO DAILY 10 Days tab - Follow Up Plan Condition: FAIR Disposition: HOME/ ROUTINE Instructions: Abuse of Alcohol (DC), Abuse of Alcohol (GEN), Acute Abdominal Pain (DC), Acute Abdominal Pain (GEN) Additional Instructions: Strong advise to cease all alcohol or recreational drug use. Take daily B vitamins. Follow up with a millinery copyist as an outpatient for a colonoscopy. Follow up with primary care physician in one to two weeks. If symptoms get worse or new symptoms arise go to the local Emergency Department. Referrals: Griselda Heard MD [Primary Care Provider] - <Addie Melendez - Last Filed: 08/21/17 14:41> Provider - Provider Date of Admission: 08/18/17 15:48 Attending physician: Addie Melendez MD Primary care physician: Griselda Heard MD Hospital Course - Lab Results Lab Results: Micro Results 08/18/17 16:00 Urine Urine Culture - Final No Growth (<1,000 CFU/ML) 08/19/17 13:37 Stool C. difficile Antigen & Toxin A,B (M - Final Most Recent Lab Values WBC 3.5 10^3/ul (4.5-11.0) L D 08/21/17 05:30 RBC 4.20 10^6/uL (3.5-6.1) 08/21/17 05:30 Hgb 12.0 g/dL (14.0-18.0) L 08/21/17 05:30 Hct 37.1 % (42.0-52.0) L 08/21/17 05:30 MCV 88.3 fl (80.0-105.0) 08/21/17 05:30 MCH 28.6 pg (25.0-35.0) 08/21/17 05:30 MCHC 32.3 g/dl (31.0-37.0) 08/21/17 05:30 RDW 14.7 % (11.5-14.5) H 08/21/17 05:30 Plt Count 134 10^3/uL (120.0-450.0) 08/21/17 05:30 MPV 11.3 fl (7.0-11.0) H 08/21/17 05:30 Gran % 45.0 % (50.0-68.0) L 08/21/17 05:30 Lymph % (Auto) 43.1 % (22.0-35.0) H 08/21/17 05:30 [place] % (Auto) 9.0 % (1.0-6.0) H 08/21/17 05:30 Eos % (Auto) 2.6 % (1.5-5.0) 08/21/17 05:30 Baso % (Auto) 0.3 % (0.0-3.0) 08/21/17 05:30 Gran # 1.56 (1.4-6.5) 08/21/17 05:30 Lymph # 1.5 (1.2-3.4) 08/21/17 05:30 [place] # 0.3 (0.1-0.6) 08/21/17 05:30 Eos # 0.1 (0.0-0.7) 08/21/17 05:30 Baso # 0.01 K/mm3 (0.0-2.0) 08/21/17 05:30 PT 13.0 SECONDS (9.4-12.5) H 08/18/17 08:00 INR 1.18 (0.93-1.08) H 08/18/17 08:00 APTT 25.2 Seconds (25.1-36.5) 08/18/17 08:00 Sodium 138 mmol/L (132-148) 08/21/17 05:30 Potassium 3.7 mmol/L (3.6-5.0) 08/21/17 05:30 Chloride 103 mmol/L (95-110) 08/21/17 05:30 Carbon Dioxide 26 mmol/L (21-33) 08/21/17 05:30 Anion Gap 13 (10-20) 08/21/17 05:30 BUN 4 mg/dL (7-21) L 08/21/17 05:30 Creatinine 0.8 mg/dL (0.8-1.5) 08/21/17 05:30 Est GFR ( Amer) > 60 08/21/17 05:30 Est GFR (Non-Af Amer) > 60 08/21/17 05:30 Random Glucose 106 mg/dL (70-110) 08/21/17 05:30 Calcium 9.3 mg/dL (8.4-10.5) 08/21/17 05:30 Phosphorus 3.6 mg/dL (2.5-4.5) 08/21/17 05:30 Magnesium 1.9 mg/dL (1.7-2.2) 08/21/17 05:30 Total Bilirubin 0.5 mg/dL (0.2-1.3) 08/21/17 05:30 AST 117 U/L (17-59) H 08/21/17 05:30 ALT 125 U/L (7-56) H 08/21/17 05:30 Alkaline Phosphatase 59 U/L (38-126) 08/21/17 05:30 Lactate Dehydrogenase 787 U/L (333-699) H 08/18/17 08:00 Total Creatine Kinase 489 U/L (35-230) H 08/18/17 08:00 CK-MB (CK-2) 1.8 ng/mL (0.0-3.6) 08/18/17 08:00 CK-MB (CK-2) % Cancelled 08/18/17 08:00 Troponin I < 0.01 ng/mL 08/18/17 08:00 Total Protein 7.0 g/dL (5.8-8.3) 08/21/17 05:30 Albumin 4.1 g/dL (3.0-4.8) 08/21/17 05:30 Globulin 2.9 gm/dL 08/21/17 05:30 Albumin/Globulin Ratio 1.4 (1.1-1.8) 08/21/17 05:30 Amylase 46 U/L (35-125) 08/18/17 08:00 Lipase 130 U/L (23-300) 08/18/17 08:00 Urine Color Yellow (YELLOW) 08/18/17 08:29 Urine Appearance Clear (CLEAR) 08/18/17 08:29 Urine pH 6.0 (4.7-8.0) 08/18/17 08:29 Ur Specific [place] >= 1.030 (1.005-1.035) 08/18/17 08:29 Urine Protein Trace mg/dL (<30 mg/dL) H 08/18/17 08:29 Urine Glucose (UA) Negative mg/dL (NEGATIVE) 08/18/17 08:29 Urine Ketones Negative mg/dL (NEGATIVE) 08/18/17 08:29 Urine Blood Negative (NEGATIVE) 08/18/17 08:29 Urine Nitrate Negative (NEGATIVE) 08/18/17 08:29 Urine Bilirubin Negative (NEGATIVE) 08/18/17 08:29 Urine Urobilinogen 0.2 E.U./dL (<1 E.U./dL) 08/18/17 08:29 Ur Leukocyte Esterase Negative Georges/uL (NEGATIVE) 08/18/17 08:29 Urine RBC 0 - 2 /hpf (0-2) 08/18/17 08:29 Urine WBC 0 - 2 /hpf (0-6) 08/18/17 08:29 Ur Epithelial Cells 0 - 2 /hpf (0-5) 08/18/17 08:29 Urine Opiates Screen Negative (NEGATIVE) 08/18/17 20:45 Urine Methadone Screen Negative (NEGATIVE) 08/18/17 20:45 Ur Barbiturates Screen Negative (NEGATIVE) 08/18/17 20:45 Ur Phencyclidine Scrn Negative (NEGATIVE) 08/18/17 20:45 Ur Amphetamines Screen Negative (NEGATIVE) 08/18/17 20:45 U Benzodiazepines Scrn Positive (NEGATIVE) H 08/18/17 20:45 U Oth Cocaine Metabols Positive (NEGATIVE) H 08/18/17 20:45 U Cannabinoids Screen Negative (NEGATIVE) 08/18/17 20:45 Alcohol, Quantitative 131 mg/dL (0-10) H 08/18/17 08:00 Attending/Attestation - Attestation I have personally seen and examined this patient.: Yes I have fully participated in the care of the patient.: Yes I have reviewed all pertinent clinical information, including history, physical exam and plan: Yes Notes (Text): 08/21/17 14:38 42 year old male with past medical history of alcohol abuse, cocaine abuse and anxiety who presented with complaint of LLQ abdominal pain with nausea and vomiting. CT abd/pelvis showed colitis and he was started on iv antibiotics. He was seen and evaluated by GI who recommended colonoscopy as outpatient. His symptoms improved and his diet was advanced. He had loose stools yesterday which also improved. CDif study was negative. He was counselled on alcohol cessation and on risks of continued substance abuse. He has elevated LFTs likely secondary to chronic ETOH abuse. Recent hepatitis panel was negative. Patient will be discharged home today to follow up with his pmd. Counselled on alcohol abstinence. Counselled on risks of continued substance abuse. Follow up with GI for elective colonoscopy. Addie Melendez MD Hospitalist.
--- NOTE | 2017-08-21 11:34 | CP.PCM.PN ---
Subjective - Date & Time of Evaluation Date of Evaluation: 08/21/17 Time of Evaluation: 09:30 - Subjective Subjective: Medicine note Patient seen and examined at bedside this morning. No acute events overnight. Diarrhea has decreased significantly. Had one episode of loose BM this morning. Tolerating diet with no Nausea or vomiting. Denies Fevers, Chills, Chest pain, shortness of breath, headaches Objective - Vital Signs/Intake and Output Vital Signs (last 24 hours): Temp Pulse Resp BP Pulse Ox 98.1 F 75 20 117/87 100 08/21/17 09:04 08/21/17 09:04 08/21/17 09:04 08/21/17 09:04 08/21/17 09:04 Intake and Output: 08/21/17 08/21/17 06:59 18:59 Intake Total 1495 240 Output Total 1375 1300 Balance 120 -1060 - Medications Medications: Current Medications Hydralazine HCl (Apresoline) 10 mg IVP Q6 PRN PRN Reason: Other Metronidazole (Flagyl) 500 mg in 100 mls @ 100 mls/hr IVPB Q8 ALEXANDRA PRN Reason: Protocol Last Admin: 08/21/17 06:10 Dose: 100 mls/hr Ceftriaxone Sodium (Rocephin 1 Gram Ivpb) 1 gm in 100 mls @ 100 mls/hr IVPB DAILY ALEXANDRA PRN Reason: Protocol Last Admin: 08/21/17 10:32 Dose: 100 mls/hr Lorazepam (Ativan) 2 mg IVP Q6H PRN; Protocol PRN Reason: Anxiety Lorazepam (Ativan) 2 mg IVP Q2H PRN; Protocol PRN Reason: Agitation Morphine Sulfate (Morphine) 2 mg IVP Q4H PRN PRN Reason: Pain, severe (8-10) Last Admin: 08/19/17 11:30 Dose: 2 mg Ondansetron HCl (Zofran Inj) 4 mg IVP Q4H PRN PRN Reason: Nausea/Vomiting Pantoprazole Sodium (Protonix Inj) 40 mg IVP DAILY [facility] Last Admin: 08/21/17 10:29 Dose: 40 mg - Labs Labs: 08/21/17 05:30 08/21/17 05:30 PT 13.0 SECONDS (9.4-12.5) H 08/18/17 08:00 INR 1.18 (0.93-1.08) H 08/18/17 08:00 APTT 25.2 Seconds (25.1-36.5) 08/18/17 08:00 - Constitutional Appears: Non-toxic, No Acute Distress - Head Exam Head Exam: ATRAUMATIC - Eye Exam Eye Exam: EOMI. absent: Scleral icterus - ENT Exam ENT Exam: Mucous Membranes Moist - Respiratory Exam Respiratory Exam: NORMAL BREATHING PATTERN. absent: Accessory Muscle Use, Respiratory Distress - Cardiovascular Exam Cardiovascular Exam: +S1, +S2. absent: Bradycardia, Tachycardia - GI/Abdominal Exam GI & Abdominal Exam: Soft, Normal Bowel Sounds. absent: Distended, Tenderness - Extremities Exam Extremities Exam: Normal Inspection. absent: Calf Tenderness - Neurological Exam Neurological Exam: Alert, Awake, Oriented x3 - Skin Skin Exam: Normal Color, Warm Assessment and Plan - Assessment and Plan (Free Text) Assessment: 42 year old male with past medical history of alcohol abuse, HTN, anxiety, cocaine use admitted for multiple episodes of non-bloody nausea and vomiting, and evaluation and treatment for colitis and alcohol abuse. Patient continue to have loose stools with C. Difficile antigen negative, repeat pending Colitis CT Scan- mild to moderate mural wall thickening consistent w/ colitis similar to previous CT scan GI consulted and following - recommending continued clinical observation with outpatient colonoscopy in 4-6 weeks with resolution of colitis - Advance to regular diet - Continue current medical management with flagyl and ceftriaxone, morphine, zofran Patient continues to have loose bowels and will require further observation and repeat testing for C. difficle Ag Alcohol Abuse, possible withdrawal CIWA score 0 Banana bag in D51/2 discontinued started on Oral B vitamins Ativan 2 mg Q3H prn, none required overnight counseled patient to quit drinking and smoking Hypomagnesmia/Hypokalemia Mag, Phos, K normalized; Replete with Mag sulfate Repeat K 3.9; K 3.1, replete with K-ned 20meq x2 Continue to monitor electrolytes and replete as necessary Hx of HTN pt non-compliant w/ medications home med: Amlodipine normotensive since being in hospital. will hold Home meds for now Hydralazine PRN if hypertensive if Systolc > 180 or diastolic > 100, Stop if HR < 55 GI/DVT PPx PTX SCDs Plan for discharge on Oral antibiotics and B Vitamins
--- NOTE | 2017-08-21 16:28 | CP.PCM.PN ---
Subjective - Date & Time of Evaluation Date of Evaluation: 08/21/17 Time of Evaluation: 10:35 - Subjective Subjective: Seen and examined at the bedside earlier today, the chart was reviewed. Patient tolerating soft diet. Earlier morning patient had pain after BM but improved. No reports of diarrhea or bleeding per rectum. Denies shortness of breath chest pain, fever or chills. Objective - Vital Signs/Intake and Output Vital Signs (last 24 hours): Temp Pulse Resp BP Pulse Ox 98.1 F 75 20 117/87 100 08/21/17 09:04 08/21/17 09:04 08/21/17 09:04 08/21/17 09:04 08/21/17 12:00 Intake and Output: 08/21/17 08/21/17 06:59 18:59 Intake Total 1495 240 Output Total 1375 1300 Balance 120 -1060 - Medications Medications: Current Medications Folic Acid (Folic Acid) 1 mg PO DAILY [facility] Hydralazine HCl (Apresoline) 10 mg IVP Q6 PRN PRN Reason: Other Metronidazole (Flagyl) 500 mg in 100 mls @ 100 mls/hr IVPB Q8 ALEXANDRA PRN Reason: Protocol Last Admin: 08/21/17 13:22 Dose: 100 mls/hr Ceftriaxone Sodium (Rocephin 1 Gram Ivpb) 1 gm in 100 mls @ 100 mls/hr IVPB DAILY [facility] PRN Reason: Protocol Last Admin: 08/21/17 10:32 Dose: 100 mls/hr Lorazepam (Ativan) 2 mg IVP Q6H PRN; Protocol PRN Reason: Anxiety Lorazepam (Ativan) 2 mg IVP Q2H PRN; Protocol PRN Reason: Agitation Morphine Sulfate (Morphine) 2 mg IVP Q4H PRN PRN Reason: Pain, severe (8-10) Last Admin: 08/19/17 11:30 Dose: 2 mg Multivitamins (Thera Tab) 1 tab PO 0800 [facility] Ondansetron HCl (Zofran Inj) 4 mg IVP Q4H PRN PRN Reason: Nausea/Vomiting Pantoprazole Sodium (Protonix Inj) 40 mg IVP DAILY [facility] Last Admin: 08/21/17 10:29 Dose: 40 mg Thiamine HCl (Vitamin B1 Tab) 50 mg PO DAILY [facility] - Labs Labs: 08/21/17 05:30 08/21/17 05:30 PT 13.0 SECONDS (9.4-12.5) H 08/18/17 08:00 INR 1.18 (0.93-1.08) H 08/18/17 08:00 APTT 25.2 Seconds (25.1-36.5) 08/18/17 08:00 - Constitutional Appears: No Acute Distress - Head Exam Head Exam: NORMOCEPHALIC - Eye Exam Eye Exam: Normal appearance. absent: Scleral icterus - ENT Exam ENT Exam: Mucous Membranes Moist - Neck Exam Neck Exam: Normal Inspection - Respiratory Exam Respiratory Exam: NORMAL BREATHING PATTERN. absent: Respiratory Distress - Cardiovascular Exam Cardiovascular Exam: +S1, +S2 - GI/Abdominal Exam GI & Abdominal Exam: Soft, Normal Bowel Sounds. absent: Guarding, Tenderness, Rebound - Extremities Exam Extremities Exam: Normal Capillary Refill. absent: Calf Tenderness, Pedal Edema - Neurological Exam Neurological Exam: Alert, Awake, Oriented x3 - Skin Skin Exam: Dry, Warm Assessment and Plan - Assessment and Plan (Free Text) Assessment: Assessment: Resolved Abdominal pain mostly in the left lower quadrant Resolved Nausea, vomiting, diarrhea status post CT scan found to have colitis throughout the colon, unknown etiology EtOH abuse Transaminitis, mainly AST ALT, likely secondary to EtOH, alcohol quantitative was 131. Patient did have hepatitis serology and abdominal ultrasound which was negative for acute findings, this was done on 05/2017. Plan: continue soft low residual Continue IV antibiotics: on Flagyl and Rocephin Continue PPI Continue DVT prophylaxis Monitor electrolytes and replace as necessary trend LFT Discussed with medical team and patient, possible discharge today, patient to follow up with a perinatal nurse and recommended to have outpatient colonoscopy after resolution of colitis,patient also recommended to complete a course of oral antibiotics upon discharge. Seen and discussed with Dr. Nolasco.
[2017-08-22] MEDS ORDERED: Multivitamin Therapeutic Tab PO SCH (08:00)
== END 2017-08-21 17:05 | disposition home or self-care (01) | DRG 813 ==
LOC: ED 07:43 → ERH 15:48 → 3RSO 17:51
PROVIDERS: ADMIT Internal Medicine; ATTEND Internal Medicine
DX: K52.9 Noninfective gastroenteritis and colitis, unspecified (principal); E87.6 Hypokalemia; E83.42 Hypomagnesemia; I10 Essential (primary) hypertension; F14.90 Cocaine use, unspecified, uncomplicated; G62.9 Polyneuropathy, unspecified; F10.10 Alcohol abuse, uncomplicated; K21.9 Gastro-esophageal reflux disease without esophagitis; Y90.6 Blood alcohol level of 120-199 mg/100 ml; Z91.14 Patient's other noncompliance with medication regimen; F41.9 Anxiety disorder, unspecified; F32.89 Other specified depressive episodes; F17.210 Nicotine dependence, cigarettes, uncomplicated; B95.7 Other staphylococcus as the cause of diseases classified elsewhere

== ENCOUNTER 2017-09-17 07:30 | Emergency (ER) | payer MEDICAID ==
[2017-09-17 07:44] VITALS: RESP 18; TEMP 98.8; O2SAT 100; BMI 20.6
[2017-09-17] MEDS ORDERED: Multivitamin (MVI) 10 ML, Thiamine 100 MG, Folic Acid 1 MG in Sodium Chloride 0.9% 1,00... IV ONE (08:04)
--- NOTE | 2017-09-17 08:12 | ED PDOC ---
Arrival/HPI - General Chief Complaint: Abdominal Pain Time Seen by Provider: 09/17/17 07:39 Historian: Patient - History of Present Illness Narrative History of Present Illness (Text): 09/17/17 08:09 A 42 year old male, whose past medical history includes hypertension, alcohol abuse and GERD, presents to the emergency department complaining of non-bilious non-bloody vomiting and diarrhea for the past 2 hours. Patient reports his last alcoholic drink was last night, states he drank "a lot of beer and liquor". Patient states his symptoms feel similar to previous multiple visits to the emergency room after alcohol consumption. Patient notes diffuse abdominal pain but denies any trauma, fever, chills, chest pain, shortness of breath or any other complaints. PMD: Dr. Griselda Heard Time/Duration: 1-3 hours Symptom Course: Unchanged Quality: Other Context: Home Past Medical History - Provider Review Nursing Documentation Reviewed: Yes - Infectious Disease Hx of Infectious Diseases: None - Tetanus Immunization Tetanus Immunization: Unknown - Reproductive Currently : No - Past Medical History Past Medical History: No Previous - Cardiac Hx Hypertension: Yes - Pulmonary Hx Respiratory Disorders: No - Neurological Hx Neurological Disorder: Yes Hx Dizziness: Yes Other/Comment: neuropathy - HEENT Hx HEENT Disorder: No - Renal Hx Renal Disorder: No - Endocrine/Metabolic Hx Endocrine Disorders: No - Hematological/Oncological Hx Blood Disorders: No - Integumentary Hx Dermatological Disorder: No - Musculoskeletal/Rheumatological Hx Musculoskeletal Disorders: Yes (RIGHT FOOT SURGERY WITH RODS AND SCREWS, RIGHT ANKLE FX.) - Gastrointestinal Hx Gastrointestinal Disorders: Yes Hx Gastroesophageal Reflux: Yes - Genitourinary/Gynecological Hx Genitourinary Disorders: No - Psychiatric Hx Psychophysiologic Disorder: Yes Hx Anxiety: Yes Hx Depression: Yes Hx Substance Use: Yes (marijuna ,cocaine) Other/Comment: ETOH, substance abuse - Past Surgical History Past Surgical History: Non-Contributing - Surgical History Hx Musculoskeletal Surgery: Yes (R foot sx with rods/screws placed) Hx Orthopedic Surgery: Yes - Anesthesia Hx Anesthesia: Yes Hx Anesthesia Reactions: No Hx Malignant Hyperthermia: No - Suicidal Assessment Feels Threatened In Home Enviroment: No Family/Social History - Physician Review Nursing Documentation Reviewed: Yes Family/Social History: No Known Family HX Smoking Status: Current Some Days Smoker Hx Alcohol Use: Yes (vodka, beer) Frequency of alcohol use: Daily Hx Substance Use: Yes (marijuna ,cocaine) Substance used: marijuana & cocaine Hx Substance Use Treatment: No Allergies/Home Meds Allergies/Adverse Reactions: Allergies No Known Allergies Allergy (Verified 08/18/17 07:51) Review of Systems - Physician Review All systems were reviewed & negative as marked: Yes - Review of Systems Constitutional: absent: Fevers, Night Sweats Respiratory: absent: SOB, Cough Gastrointestinal: Abdominal Pain, Diarrhea, Vomiting Physical Exam - Physical Exam Narrative Physical Exam (Text): Constitutional: No acute distress. Head: Normocephalic. Atraumatic. Eyes: PERRL. ENT: Moist mucous membranes. Neck: Supple. Cardiovascular: Regular rate. Chest: No tenderness. Respiratory: Clear to auscultation bilaterally. GI: Soft. Nontender. Nondistended. Back: No CVA tenderness. Musculoskeletal: No tenderness or swelling of extremities. Skin: No rash. Neurologic: Alert, no focal deficit. Vital Signs Reviewed: Yes Vital Signs Temp Pulse Resp BP Pulse Ox 09/17/17 10:15 138/99 H 09/17/17 09:56 83 18 151/97 H 100 09/17/17 07:41 98.8 F 74 18 146/94 H 100 Temperature: Afebrile Blood Pressure: Hypertensive Pulse: Regular Respiratory Rate: Normal Appearance: Positive for: Well-Appearing, Non-Toxic, Comfortable Pain Distress: None Mental Status: Positive for: Alert and Oriented X 3 Medical Decision Making ED Course and Treatment: Patient in no distress. Normal pulse. Labs baseline. Will discharge, counseled on drug/alcohol use, return to ED for any worsening symptoms, fever, vomiting, dyspnea, or any other problem. - Lab Interpretations Lab Results: 09/17/17 08:30 09/17/17 08:30 Lab Results 09/17/17 09:06: Urine Color Straw, Urine Appearance Clear, Urine pH 8.5, Ur Specific [place] 1.015, Urine Protein Negative, Urine Glucose (UA) Negative, Urine Ketones Negative, Urine Blood Negative, Urine Nitrate Negative, Urine Bilirubin Negative, Urine Urobilinogen 0.2, Ur Leukocyte Esterase Negative 09/17/17 09:06: Urine Opiates Screen Negative, Urine Methadone Screen Negative, Ur Barbiturates Screen Negative, Ur Phencyclidine Scrn Negative, Ur Amphetamines Screen Negative, U Benzodiazepines Scrn Negative, U Oth Cocaine Metabols Positive H, U Cannabinoids Screen Negative 09/17/17 08:30: Alcohol, Quantitative 24 H 09/17/17 08:30: Sodium 142, Potassium 3.7, Chloride 104, Carbon Dioxide 25, Anion Gap 17, BUN 10, Creatinine 0.8, Est GFR ( Amer) > 60, Est GFR (Non- Af Amer) > 60, Random Glucose 101, Calcium 9.7, Total Bilirubin 0.6, AST 64 H D , ALT 64 H, Alkaline Phosphatase 64, Total Protein 7.7, Albumin 4.7, Globulin 3.0, Albumin/Globulin Ratio 1.5, Lipase 80 09/17/17 08:30: WBC 2.1 L* D, RBC 4.31, Hgb 12.5 L, Hct 37.6 L, MCV 87.2, MCH 29.0, MCHC 33.2, RDW 14.7 H, Plt Count 180, MPV 11.3 H, Gran % 46.4 L, Lymph % ( Auto) 43.5 H, [place] % (Auto) 8.7 H, Eos % (Auto) 0.0 L, Baso % (Auto) 1.4, Gran # 0.96 L, Lymph # 0.9 L, [place] # 0.2, Eos # 0.0, Baso # 0.03 I have reviewed the lab results: Yes - Medication Orders Current Medication Orders: Discontinued Medications Famotidine (Pepcid) 20 mg IVP STAT STA Stop: 09/17/17 08:07 Last Admin: 09/17/17 09:03 Dose: 20 mg IVP Administration Document 09/17/17 09:03 MR (Rec: 09/17/17 09:03 [id number]) Charges for Administration # of IVP Administrations 1 Multivitamins/Vitamin C 10 ml/Thiamine HCl 100 mg/ Folic Acid 1 mg/ Sodium Chloride 1,011.2 mls @ 1,000 mls/hr IV .Q1H1M ONE Stop: 09/17/17 09:04 Last Admin: 09/17/17 09:11 Dose: 1,000 mls/hr eMAR Start Stop Document 09/17/17 09:11 MR (Rec: 09/17/17 09:11 MR [id number]) Intravenous Solution Start Date 09/17/17 Start Time 09:11 End Date 09/17/17 End time 10:11 Total Infusion Time 60 Ondansetron HCl (Zofran Inj) 8 mg IVP STAT STA Stop: 09/17/17 08:07 Last Admin: 09/17/17 09:03 Dose: 8 mg IVP Administration Document 09/17/17 09:03 (Rec: 09/17/17 09:03 MR [id number]) Charges for Administration # of IVP Administrations 1 - Scribe Statement The provider has reviewed the documentation as recorded by the Scribe Hui Recinos Provider Scribe Attestation: All medical record entries made by the Scribe were at my direction and personally dictated by me. I have reviewed the chart and agree that the record accurately reflects my personal performance of the history, physical exam, medical decision making, and the department course for this patient. I have also personally directed, reviewed, and agree with the discharge instructions and disposition. Disposition/Present on Arrival - Present on Arrival Any Indicators Present on Arrival: No History of DVT/PE: No History of Uncontrolled Diabetes: No Urinary Catheter: No History of Decub. Ulcer: No History Surgical Site Infection Following: None - Disposition Have Diagnosis and Disposition been Completed?: Yes Diagnosis: Alcohol abuse, Abdominal pain Disposition: HOME/ ROUTINE Disposition Time: 10:38 Patient Plan: Discharge Condition: STABLE Discharge Instructions (ExitCare): Abuse of Alcohol (ED) Prescriptions: Ondansetron ODT [Zofran ODT] 4 mg PO Q8 #12 odt Referrals: Griselda Heard MD [Primary Care Provider] - Follow up with primary Forms: [employer] ([place])
[2017-09-17 08:52] LABS: BASO # 0.03 K/mm3 (0.0-2.0); BASO % 1.4 % (0.0-3.0); GRAN # 0.96 (1.4-6.5); GRAN % 46.4 % (50.0-68.0); HEMATOCRIT 37.6 % (42.0-52.0); LYMPH # 0.9 (1.2-3.4); LYMPH % 43.5 % (22.0-35.0); MEAN CELL VOLUME 87.2 fl (80.0-105.0); MEAN CORPUSCULAR HGB CONC 33.2 g/dl (31.0-37.0); MEAN PLATELET VOLUME 11.3 fl (7.0-11.0); MONO # 0.2 (0.1-0.6); MONO % 8.7 % (1.0-6.0); RED CELL DISTRIBUTION WIDTH 14.7 % (11.5-14.5)
[2017-09-17 08:55] LABS: ALB/GLOB RATIO 1.5 (1.1-1.8); ALKALINE PHOSPHATASE 64 U/L (38-126); ALT/SGPT 64 U/L (7-56); AST/SGOT 64 U/L (17-59); BILIRUBIN,TOTAL 0.6 mg/dL (0.2-1.3); BLOOD UREA NITROGEN 10 mg/dL (7-21); CALCIUM 9.7 mg/dL (8.4-10.5); CARBON DIOXIDE 25 mmol/L (21-33); CHLORIDE 104 mmol/L (98-107); GFR AFRICAN-AMERICAN > 60; GLUCOSE,RANDOM 101 mg/dL (70-110); LIPASE 80 U/L (23-300); POTASSIUM 3.7 mmol/L (3.6-5.0); SODIUM 142 mmol/L (132-148); TOTAL PROTEIN 7.7 g/dL (5.8-8.3)
[2017-09-17 08:57] LABS: WHITE BLOOD COUNT 2.1 10^3/ul (4.5-11.0)
[2017-09-17 09:11] LABS: PH,URINE 8.5 (4.7-8.0); URINE BILIRUBIN NEGATIVE (NEGATIVE); URINE BLOOD NEGATIVE (NEGATIVE); URINE GLUCOSE (UA) NEGATIVE (NEGATIVE); URINE KETONE NEGATIVE (NEGATIVE); URINE LEUKOCYTE ESTERASE NEGATIVE Leu/uL (NEGATIVE); URINE PROTEIN NEGATIVE mg/dL (<30 mg/dL); URINE UROBILINOGEN 0.2 E.U./dL (<1 E.U./dL)
[2017-09-17 09:12] LABS: URINE APPEARANCE CLEAR (CLEAR); URINE COLOR STRAW (YELLOW)
[2017-09-17 09:56] VITALS: PULSE 83
[2017-09-17 10:16] VITALS: BP 138/99
== END 2017-09-17 11:07 | disposition home or self-care (01) ==
LOC: ED 07:30
DX: F10.10 Alcohol abuse, uncomplicated (principal); R10.9 Unspecified abdominal pain; Y90.1 Blood alcohol level of 20-39 mg/100 ml
CPT/HCPCS: 80053; 80320; 80324; 80345; 80346; 80349; 80353; 80358; 80361; 81003; 83690; 83992; 85025; 96365; 96375; 99284; J2405; J3411; J7040

== ENCOUNTER 2017-10-01 10:44 | Emergency (ER) | payer MEDICAID ==
[2017-10-01 10:44] VITALS: BMI 20.6
--- NOTE | 2017-10-01 11:10 | ED PDOC ---
Arrival/HPI - General Historian: Patient - History of Present Illness Time/Duration: Prior to Arrival Symptom Onset: Sudden Symptom Course: Worsening Quality: Unable to Describe Severity Level: Severe - General Time Seen by Provider: 10/01/17 10:45 - History of Present Illness Narrative History of Present Illness (Text): 10/01/17 11:05 This is a 42 yo male with past medical hx of anxiety, alcoholism, HTN, colitis, numerous trips to ER, presenting with chief complaint of abdominal pain. Pain is located in left lower quadrant without radiation. Has happened before and was told he had colitis. Cannot describe sensation. Pain is constant and getting worse. Rates it "100" out of a 10. Denies fevers, chills but reports nausea. Was drinking heavily last night. Reports multiple episodes of non bloody vomiting this morning. Also reports multiple episodes of non bloody diarrhea this morning. Patient stepped outside of home for some air and flagged down a police communications dispatcher who called him an ambulance. PMH: anxiety, alcoholism, HTN, colitis PSH: right ankle sx Allergies: NKDA FH: Denies Home meds: paxil, folic acid, blood pressure pill Social hx: current smoker. alcoholic since age 12. denies drug use. does not work. lives at home with sister. (Alex Guadarrama) Past Medical History - Provider Review Nursing Documentation Reviewed: Yes - Travel History Have you recently traveled outside [place] w/in the past 3 mons?: No - Infectious Disease Hx of Infectious Diseases: None - Tetanus Immunization Tetanus Immunization: Unknown - Reproductive Currently : No - Past Medical History Past Medical History: No Previous - Cardiac Hx Hypertension: Yes - Pulmonary Hx Respiratory Disorders: No - Neurological Hx Neurological Disorder: Yes Hx Dizziness: Yes Other/Comment: neuropathy - HEENT Hx HEENT Disorder: No - Renal Hx Renal Disorder: No - Endocrine/Metabolic Hx Endocrine Disorders: No - Hematological/Oncological Hx Blood Disorders: No - Integumentary Hx Dermatological Disorder: No - Musculoskeletal/Rheumatological Hx Musculoskeletal Disorders: Yes (RIGHT FOOT SURGERY WITH RODS AND SCREWS, RIGHT ANKLE FX.) - Gastrointestinal Hx Gastrointestinal Disorders: Yes Hx Gastroesophageal Reflux: Yes - Genitourinary/Gynecological Hx Genitourinary Disorders: No - Psychiatric Hx Psychophysiologic Disorder: Yes Hx Anxiety: Yes Hx Depression: Yes Hx Substance Use: Yes (marijuna ,cocaine) Other/Comment: ETOH, substance abuse - Past Surgical History Past Surgical History: Non-Contributing - Surgical History Hx Musculoskeletal Surgery: Yes (R foot sx with rods/screws placed) Hx Orthopedic Surgery: Yes - Anesthesia Hx Anesthesia: Yes Hx Anesthesia Reactions: No Hx Malignant Hyperthermia: No - Suicidal Assessment Feels Threatened In Home Enviroment: No Family/Social History - Physician Review Nursing Documentation Reviewed: Yes Family/Social History: No Known Family HX Smoking Status: Current Some Days Smoker Hx Alcohol Use: Yes (vodka, beer) Hx Substance Use: Yes (marijuna ,cocaine) Substance used: marijuana & cocaine Hx Substance Use Treatment: No Allergies/Home Meds Allergies/Adverse Reactions: Allergies No Known Allergies Allergy (Verified 08/18/17 07:51) Home Medications: Home Meds Medication Instructions Recorded Confirmed Omeprazole 20 mg PO DAILY 10/01/17 10/01/17 PARoxetine [Paxil] 10 mg PO DAILY 10/01/17 10/01/17 amLODIPine [Norvasc] 5 mg PO DAILY 10/01/17 10/01/17 Review of Systems - Review of Systems Constitutional: absent: Fevers, Night Sweats Eyes: absent: Vision Changes, Photophobia ENT: absent: Hearing Changes, Tinnitus Respiratory: absent: SOB, Cough Cardiovascular: absent: Chest Pain, Palpitations Gastrointestinal: Abdominal Pain, Diarrhea, Nausea, Vomiting Genitourinary Male: absent: Dysuria, Frequency Musculoskeletal: absent: Arthralgias, Back Pain Skin: absent: Rash, Pruritis Neurological: Headache Endocrine: absent: Diaphoresis, Polyuria Hemo/Lymphatic: absent: Adenopathy, Easy Bleeding Psychiatric: absent: Anxiety, Depression Physical Exam Vital Signs Reviewed: Yes Appearance: Positive for: Uncomfortable Mental Status: Positive for: Alert and Oriented X 3 - Systems Exam Head: Present: Atraumatic, Normocephalic Pupils: Present: PERRL Extroacular Muscles: Present: EOMI Respiratory/Chest: No: Respiratory Distress, Accessory Muscle Use Cardiovascular: Present: Regular Rate and Rhythm, Normal S1, S2 Abdomen: Present: Tenderness. No: Distention, Peritoneal Signs (tenderness left lower quadrant ) Upper Extremity: Present: Normal Inspection. No: Cyanosis, Edema Lower Extremity: Present: Normal Inspection. No: Edema Neurological: Present: CN II-XII Intact, Speech Normal Skin: Present: Warm, Dry Psychiatric: Present: Alert, Oriented x 3, Normal Concentration Vital Signs Temp Pulse Resp BP Pulse Ox 10/01/17 16:19 78 18 138/71 98 10/01/17 14:12 69 18 142/86 98 10/01/17 12:27 75 18 146/79 98 10/01/17 11:12 98.3 F 81 18 148/84 98 Medical Decision Making ED Course and Treatment: pt w multiple ED visits for similar complaints, I believe which are mostly related to alcohol abuse. he tells me he "overdid it" last night. his Ct shows no acute findings and labs are reassuring. Exam is benign, non-surgical abdomen. (Domingo Meade) - Lab Interpretations Lab Results: 10/01/17 11:47 10/01/17 11:47 Lab Results 10/01/17 11:48: Urine Opiates Screen Negative, Urine Methadone Screen Negative, Ur Barbiturates Screen Negative, Ur Phencyclidine Scrn Negative, Ur Amphetamines Screen Negative, U Benzodiazepines Scrn Negative, U Oth Cocaine Metabols Positive H, U Cannabinoids Screen Negative 10/01/17 11:48: Urine Color Yellow, Urine Appearance Clear, Urine pH 6.0, Ur Specific [place] 1.025, Urine Protein Trace H, Urine Glucose (UA) Negative, Urine Ketones Negative, Urine Blood Negative, Urine Nitrate Negative, Urine Bilirubin Negative, Urine Urobilinogen 0.2, Ur Leukocyte Esterase Negative, Urine RBC 0 - 2, Urine WBC 2 - 5, Ur Epithelial Cells 1 - 3, Urine Bacteria Few , Urine Other Usperm 10/01/17 11:47: Alcohol, Quantitative 154 H 10/01/17 11:47: Sodium 145, Potassium 3.8, Chloride 106, Carbon Dioxide 22, Anion Gap 21 H, BUN 14, Creatinine 0.9, Est GFR ( Amer) > 60, Est GFR ( Non-Af Amer) > 60, Random Glucose 90, Calcium 9.0, Total Bilirubin 0.3, AST 59, ALT 52, Alkaline Phosphatase 60, Total Protein 7.6, Albumin 4.6, Globulin 3.0, Albumin/Globulin Ratio 1.6, Lipase 85 10/01/17 11:47: WBC 2.9 L* D, RBC 4.25, Hgb 12.3 L, Hct 37.0 L, MCV 87.1, MCH 28.9, MCHC 33.2, RDW 14.8 H, Plt Count 201, MPV 10.8, Gran % 46.0 L, Lymph % ( Auto) 45.9 H, [place] % (Auto) 7.1 H, Eos % (Auto) 0.0 L, Baso % (Auto) 1.0, Gran # 1.35 L, Lymph # 1.4, [place] # 0.2, Eos # 0.0, Baso # 0.03 - RAD Interpretation Radiology Orders: 10/01/17 12:21 ABD PELVIS PO & IV CONTRAST [CT] Stat - Medication Orders Current Medication Orders: Discontinued Medications Al Hydrox/Mg Hydrox/Simethicone (Maalox Plus 30 Ml) 30 ml PO STAT STA Stop: 10/01/17 16:04 Last Admin: 10/01/17 16:45 Dose: 30 ml Multivitamins/Vitamin C 10 ml/Thiamine HCl 100 mg/ Folic Acid 1 mg/ Sodium Chloride 1,011.2 mls @ 100 mls/hr IV .Q10H7M ONE Stop: 10/01/17 21:22 Last Admin: 10/01/17 11:47 Dose: 100 mls/hr eMAR Start Stop Document 10/01/17 11:47 [facility] (Rec: 10/01/17 11:47 [id number]) Intravenous Solution Start Date 10/01/17 Start Time 11:45 Famotidine (Pepcid 20mg/50ml Premix) 20 mg in 50 mls @ 100 mls/hr IVPB STAT STA Stop: 10/01/17 16:33 Last Admin: 10/01/17 16:35 Dose: 100 mls/hr eMAR Start Stop Document 10/01/17 16:35 [facility] (Rec: 10/01/17 16:51 [id number] Intravenous Solution Start Date 10/01/17 Start Time 16:30 End Date 10/01/17 End time 17:00 Total Infusion Time 30 Ketorolac Tromethamine (Toradol) 15 mg IVP STAT STA Stop: 10/01/17 11:05 Last Admin: 10/01/17 11:42 Dose: 15 mg MAR Pain Assessment Document 10/01/17 11:42 [facility] (Rec: 10/01/17 11:46 [id number]) Pain Reassessment Is this a pain reassessment? No Sleep Is patient sleeping during reassessment? No Presence of Pain Presence of Pain Yes Pain Scale Used Pain Scale Used Numeric Location Pain Location Body Site Abdomen Description Description Sharp Intensity of Pain at present 6 Pain Behavior Guarding Alleviating Factors/Management Medication Techniques IVP Administration Document 10/01/17 11:42 [facility] (Rec: 10/01/17 11:46 [id number]) Charges for Administration # of IVP Administrations 1 Lidocaine (Lidocaine 2% Viscous) 15 ml PO ONCE STA Stop: 10/01/17 16:04 Last Admin: 10/01/17 16:45 Dose: 15 ml Lidocaine HCl (Lidocaine 2% Viscous) 15 ml MM STAT STA Stop: 10/01/17 16:08 Last Admin: 10/01/17 16:45 Dose: 15 ml Ondansetron HCl (Zofran Inj) 4 mg IVP STAT STA Stop: 10/01/17 11:05 Last Admin: 10/01/17 11:40 Dose: 4 mg IVP Administration Document 10/01/17 11:40 [facility] (Rec: 10/01/17 11:47 [id number]) Charges for Administration # of IVP Administrations 1 Disposition/Present on Arrival - Present on Arrival Any Indicators Present on Arrival: No History of DVT/PE: No History of Uncontrolled Diabetes: No Urinary Catheter: No History of Decub. Ulcer: No History Surgical Site Infection Following: None - Disposition Have Diagnosis and Disposition been Completed?: Yes Disposition Time: 17:00 Patient Plan: Discharge - Disposition Diagnosis: Alcohol abuse, Abdominal pain Disposition: HOME/ ROUTINE Condition: STABLE Discharge Instructions (ExitCare): Abuse of Alcohol (ED), Abdominal Pain (ED) Additional Instructions: Please return if condition worsens. Please abstain from alcohol. Please follow up with primary. Referrals: Griselda Heard MD [Primary Care Provider] - Follow up with primary Forms: [employer] (Hungarian)
[2017-10-01 11:14] VITALS: RESP 18; TEMP 98.3; O2SAT 98
[2017-10-01] MEDS ORDERED: Sodium Chloride 0.9% 1,000 ML IV SCH (11:15)
[2017-10-01] MEDS ORDERED: Multivitamin (MVI) 10 ML, Thiamine 100 MG, Folic Acid 1 MG in Sodium Chloride 0.9% 1,00... IV ONE (11:16)
[2017-10-01 12:00] LABS: BASO # 0.03 K/mm3 (0.0-2.0); GRAN # 1.35 (1.4-6.5); LYMPH # 1.4 (1.2-3.4); LYMPH % 45.9 % (22.0-35.0); MEAN CELL VOLUME 87.1 fl (80.0-105.0); MEAN CORPUSCULAR HEMOGLOBIN 28.9 pg (25.0-35.0); MEAN CORPUSCULAR HGB CONC 33.2 g/dl (31.0-37.0); MEAN PLATELET VOLUME 10.8 fl (7.0-11.0); MONO # 0.2 (0.1-0.6); MONO % 7.1 % (1.0-6.0); RED CELL DISTRIBUTION WIDTH 14.8 % (11.5-14.5)
[2017-10-01 12:00] LABS: URINE BILIRUBIN NEGATIVE (NEGATIVE); URINE BLOOD NEGATIVE (NEGATIVE); URINE GLUCOSE (UA) NEGATIVE (NEGATIVE); URINE KETONE NEGATIVE (NEGATIVE); URINE LEUKOCYTE ESTERASE NEGATIVE Leu/uL (NEGATIVE); URINE PROTEIN TRACE mg/dL (<30 mg/dL); URINE UROBILINOGEN 0.2 E.U./dL (<1 E.U./dL)
[2017-10-01 12:05] LABS: WHITE BLOOD COUNT 2.9 10^3/ul (4.5-11.0)
[2017-10-01 12:06] LABS: URINE APPEARANCE CLEAR (CLEAR); URINE COLOR YELLOW (YELLOW)
[2017-10-01 12:09] LABS: ALB/GLOB RATIO 1.6 (1.1-1.8); ALKALINE PHOSPHATASE 60 U/L (38-126); ALT/SGPT 52 U/L (7-56); AST/SGOT 59 U/L (17-59); BILIRUBIN,TOTAL 0.3 mg/dL (0.2-1.3); BLOOD UREA NITROGEN 14 mg/dL (7-21); CARBON DIOXIDE 22 mmol/L (21-33); CHLORIDE 106 mmol/L (98-107); GFR AFRICAN-AMERICAN > 60; GLUCOSE,RANDOM 90 mg/dL (70-110); LIPASE 85 U/L (23-300); POTASSIUM 3.8 mmol/L (3.6-5.0); SODIUM 145 mmol/L (132-148); TOTAL PROTEIN 7.6 g/dL (5.8-8.3)
[2017-10-01 12:09] LABS: URINE BACTERIA FEW (NEG); URINE RBC 0 - 2 /hpf (0-2)
[2017-10-01] MEDS ORDERED: Iohexol 240 (50 ml) ONE (12:31)
[2017-10-01] MEDS ORDERED: Iohexol 350 MG/100 ML VIAL ONE (14:47)
--- NOTE | 2017-10-01 15:57 | CT ---
PROCEDURE: CT Abdomen and Pelvis with contrast HISTORY: abdominal pain COMPARISON: None. TECHNIQUE: Contrast dose: 100 cc of Omni 350 Radiation dose: Total exam DLP = 272 mGy-cm. This CT exam was performed using one or more of the following dose reduction techniques: Automated exposure control, adjustment of the mA and/or kV according to patient size, and/or use of iterative reconstruction technique. FINDINGS: LOWER THORAX: Unremarkable. LIVER: Unremarkable. No gross lesion or ductal dilatation. GALLBLADDER AND BILE DUCTS: Unremarkable. PANCREAS: Unremarkable. No gross lesion or ductal dilatation. SPLEEN: Unremarkable. ADRENALS: Unremarkable. No mass. KIDNEYS AND URETERS: Unremarkable. No hydronephrosis. No solid mass. VASCULATURE: Unremarkable. No aortic aneurysm. BOWEL: Unremarkable. No obstruction. No gross mural thickening. APPENDIX: Normal appendix. PERITONEUM: Unremarkable. No free fluid. No free air. LYMPH NODES: Unremarkable. No enlarged lymph nodes. BLADDER: Unremarkable. REPRODUCTIVE: Unremarkable. BONES: No acute fracture. OTHER FINDINGS: None. IMPRESSION: Unremarkable contrast enhanced CT of the abdomen and pelvis.
[2017-10-01] MEDS ORDERED: Lidocaine 2% Viscous 100 ml PO STA (16:03)
[2017-10-01] MEDS ORDERED: Alum-Mag Hydrox-Simethicone Susp (30 mL) PO STA (16:03)
[2017-10-01] MEDS ORDERED: Famotidine 20mg/50ml 20 MG/50 ML BAG IVPB STA (16:04)
[2017-10-01 16:19] VITALS: BP 138/71; PULSE 78
== END 2017-10-01 17:05 | disposition home or self-care (01) ==
LOC: ED 10:44
DX: F10.10 Alcohol abuse, uncomplicated (principal); Y90.6 Blood alcohol level of 120-199 mg/100 ml; R10.9 Unspecified abdominal pain; I10 Essential (primary) hypertension; F17.210 Nicotine dependence, cigarettes, uncomplicated
CPT/HCPCS: 74177; 80053; 80320; 80324; 80345; 80346; 80349; 80353; 80358; 80361; 81001; 83690; 83992; 85025; 96365; 96375; 99284; J1885; J2405; J3411; J7040; Q9966; Q9967

== ENCOUNTER 2017-10-30 15:54 | Inpatient (IN) | payer MEDICAID ==
[2017-10-30] MEDS ORDERED: Sodium Chloride 0.9% 500 ML IV STA (16:17)
--- NOTE | 2017-10-30 16:21 | ED PDOC ---
Arrival/HPI - General Chief Complaint: GI Problem Time Seen by Provider: 10/30/17 16:17 Historian: Patient - History of Present Illness Narrative History of Present Illness (Text): 10/30/17 16:21 A 42 year old male presents to the emergency department complaining of vomiting since this morning. Patient notes bloody diarrhea and mild left lower abdominal discomfort after episodes of vomiting. Patient reports he is unable to tolerate PO intake. Patient denies any fever, chills, urinary symptoms, chest pain, shortness of breath or any other complaints. PMD: Dr. Griselda Heard Time/Duration: Other (this morning) Symptom Course: Unchanged Quality: Other Context: Home Past Medical History - Provider Review Nursing Documentation Reviewed: Yes - Infectious Disease Hx of Infectious Diseases: None - Tetanus Immunization Tetanus Immunization: Unknown - Past Medical History Past Medical History: No Previous - Cardiac Hx Hypertension: Yes - Pulmonary Hx Respiratory Disorders: No - Neurological Hx Neurological Disorder: Yes Hx Dizziness: Yes Other/Comment: neuropathy - HEENT Hx HEENT Disorder: No - Renal Hx Renal Disorder: No - Endocrine/Metabolic Hx Endocrine Disorders: No - Hematological/Oncological Hx Blood Disorders: No - Integumentary Hx Dermatological Disorder: No - Musculoskeletal/Rheumatological Hx Musculoskeletal Disorders: Yes (RIGHT FOOT SURGERY WITH RODS AND SCREWS, RIGHT ANKLE FX.) - Gastrointestinal Hx Gastrointestinal Disorders: Yes Hx Gastroesophageal Reflux: Yes - Genitourinary/Gynecological Hx Genitourinary Disorders: No - Psychiatric Hx Psychophysiologic Disorder: Yes Hx Anxiety: Yes Hx Depression: Yes Hx Substance Use: Yes (marijuna ,cocaine) Other/Comment: ETOH, substance abuse - Past Surgical History Past Surgical History: Non-Contributing - Surgical History Hx Musculoskeletal Surgery: Yes (R foot sx with rods/screws placed) Hx Orthopedic Surgery: Yes - Anesthesia Hx Anesthesia: Yes Hx Anesthesia Reactions: No Hx Malignant Hyperthermia: No - Suicidal Assessment Feels Threatened In Home Enviroment: No Family/Social History - Physician Review Nursing Documentation Reviewed: Yes Family/Social History: No Known Family HX Smoking Status: Current Some Days Smoker Hx Alcohol Use: Yes (vodka, beer) Hx Substance Use: Yes (marijuna ,cocaine) Substance used: marijuana & cocaine Hx Substance Use Treatment: No Allergies/Home Meds Allergies/Adverse Reactions: Allergies No Known Allergies Allergy (Verified 10/30/17 15:59) Home Medications: Home Meds Medication Instructions Recorded Confirmed PARoxetine [Paxil] 10 mg PO DAILY 10/01/17 10/30/17 amLODIPine [Norvasc] 5 mg PO DAILY 10/01/17 10/30/17 Cholecalciferol [Vitamin D 1000 IU] 50,000 iu PO QWK 10/30/17 10/30/17 Review of Systems - Physician Review All systems were reviewed & negative as marked: Yes - Review of Systems Constitutional: absent: Fevers, Night Sweats Respiratory: absent: SOB Cardiovascular: absent: Chest Pain Gastrointestinal: Abdominal Pain (left lower abdomen), Diarrhea, Vomiting, Hematochezia Genitourinary Male: absent: Dysuria, Frequency, Hematuria, Urinary Output Changes Physical Exam Vital Signs Reviewed: Yes Vital Signs Temp Pulse Resp BP Pulse Ox 10/30/17 18:58 90 18 143/94 H 100 10/30/17 17:25 98.5 F 81 20 145/90 100 10/30/17 16:00 99.0 F 90 22 148/96 H 98 Temperature: Afebrile Blood Pressure: Hypertensive Pulse: Regular Respiratory Rate: Normal Appearance: Positive for: Well-Appearing, Non-Toxic, Comfortable Pain Distress: None Mental Status: Positive for: Alert and Oriented X 3 - Systems Exam Head: Present: Atraumatic, Normocephalic Pupils: Present: PERRL Extroacular Muscles: Present: EOMI Conjunctiva: Present: Normal Mouth: Present: Moist Mucous Membranes Neck: Present: Normal Range of Motion Respiratory/Chest: Present: Clear to Auscultation, Good Air Exchange. No: Respiratory Distress, Accessory Muscle Use Cardiovascular: Present: Regular Rate and Rhythm, Normal S1, S2. No: Murmurs Abdomen: Present: Tenderness (LLQ tenderness to palpation), Normal Bowel Sounds. No: Distention, Peritoneal Signs, Rebound, Guarding Back: Present: Normal Inspection Upper Extremity: Present: Normal Inspection. No: Cyanosis, Edema Lower Extremity: Present: Normal Inspection. No: Edema Neurological: Present: GCS=15, CN II-XII Intact, Speech Normal Skin: Present: Warm, Dry, Normal Color. No: Rashes Psychiatric: Present: Alert, Oriented x 3, Normal Insight, Normal Concentration Medical Decision Making ED Course and Treatment: 10/30/17 16:21 Impression: A 42 year old male with vomiting, diarrhea and left lower abdominal discomfort Plan: -- Abdomen and pelvis CT -- Labs -- Urinalysis -- Influenza A B stat -- Toradol, Zofran and IV fluids -- Reassess and disposition Progress Notes: Report Date : 10/30/2017 19:03:01 PROCEDURE: CT Abdomen and Pelvis with contrast Dictator : Thanh Harper MD IMPRESSION: Thickening of the wall of the entire colon. Mild colitis should be considered. Similar findings were seen on a prior CT 08/18/2017. They were not apparent on the more recent CT of the abdomen pelvis 10/01/2017 10/30/17 19:18 Due to colitis, intractable pain and vomiting, will transfer to observation. Spoke to Dr. Palacios and will admit to hospitalist - Lab Interpretations Lab Results: 10/30/17 16:45 10/30/17 16:45 Lab Results 10/30/17 18:17: Urine Color Yellow, Urine Appearance Clear, Urine pH 7.0, Ur Specific [place] 1.020, Urine Protein Negative, Urine Glucose (UA) Negative, Urine Ketones Trace H, Urine Blood Negative, Urine Nitrate Negative, Urine Bilirubin Negative, Urine Urobilinogen 0.2, Ur Leukocyte Esterase Negative 10/30/17 17:18: Influenza Typ A,B (EIA) Negative for flu a/b 10/30/17 16:45: Sodium 143, Potassium 3.5 L, Chloride 103, Carbon Dioxide 22, Anion Gap 21 H, BUN 15, Creatinine 0.9, Est GFR ( Amer) > 60, Est GFR ( Non-Af Amer) > 60, Random Glucose 102, Calcium 9.3, Phosphorus 2.9, Magnesium 1.6 L, Total Bilirubin 0.5, AST 42, ALT 39, Alkaline Phosphatase 60, Total Protein 7.7, Albumin 4.7, Globulin 3.0, Albumin/Globulin Ratio 1.5, Lipase 70 10/30/17 16:45: WBC 3.7 L D, RBC 4.32, Hgb 12.3 L, Hct 37.5 L, MCV 86.8, MCH 28.5, MCHC 32.8, RDW 14.0, Plt Count 215, MPV 10.6, Gran % 54.0, Lymph % (Auto) 37.8 H, [place] % (Auto) 7.6 H, Eos % (Auto) 0.3 L, Baso % (Auto) 0.3, Gran # 1.99 , Lymph # 1.4, [place] # 0.3, Eos # 0.0, Baso # 0.01 I have reviewed the lab results: Yes - RAD Interpretation Radiology Orders: 10/30/17 16:21 ABD & PELVIS IV CONTRAST ONLY [CT] Stat - Medication Orders Current Medication Orders: Ciprofloxacin (Cipro 400mg/200ml Dsw) 400 mg in 200 mls @ 133.3 mls/hr IVPB STAT STA PRN Reason: Protocol Stop: 10/30/17 20:42 Metronidazole (Flagyl) 500 mg in 100 mls @ 100 mls/hr IVPB STAT STA PRN Reason: Protocol Stop: 10/30/17 20:11 Discontinued Medications Famotidine (Pepcid) 20 mg IVP STAT STA Stop: 10/30/17 18:04 Last Admin: 10/30/17 18:14 Dose: 20 mg IVP Administration Document 10/30/17 18:14 (Rec: 10/30/17 18:14 [id number] Charges for Administration # of IVP Administrations 1 Sodium Chloride (Sodium Chloride 0.9%) 500 mls @ 999 mls/hr IV .Q31M STA Stop: 10/30/17 16:47 Last Admin: 10/30/17 16:45 Dose: 999 mls/hr eMAR Start Stop Document 10/30/17 16:45 RG (Rec: 10/30/17 17:03 [id number] Intravenous Solution Start Date 10/30/17 Start Time 16:45 End Date 10/30/17 Ketorolac Tromethamine (Toradol) 30 mg IVP STAT STA Stop: 10/30/17 16:22 Last Admin: 10/30/17 16:45 Dose: 30 mg MAR Pain Assessment Document 10/30/17 16:45 (Rec: 10/30/17 17:04 [id number]) Pain Reassessment Is this a pain reassessment? Yes Sleep Is patient sleeping during reassessment? No Presence of Pain Presence of Pain Yes Pain Scale Used Pain Scale Used Numeric Location Left, Right or Bilateral Left Upper or Lower Lower Pain Location Body Site Abdomen Description Description Intermittent Intensity of Pain at present 5 Pain Behavior Guarding Aggravating Factors Changing Position Alleviating Factors/Management Inactivity Techniques IVP Administration Document 10/30/17 16:45 RG (Rec: 10/30/17 17:04 [id number]) Charges for Administration # of IVP Administrations 1 Re-Assess: MAR Pain Assessment Document 10/30/17 17:44 RG (Rec: 10/30/17 17:45 [id number]) Pain Reassessment Is this a pain reassessment? Yes Sleep Is patient sleeping during reassessment? No Presence of Pain Presence of Pain Yes Pain Scale Used Pain Scale Used Numeric Location Left, Right or Bilateral Left Upper or Lower Lower Pain Location Body Site Abdomen Description Description Constant Intensity of Pain at present 6 Pain Behavior Guarding Aggravating Factors Contant Morphine Sulfate (Morphine) 4 mg IVP STAT STA Stop: 10/30/17 19:00 Last Admin: 10/30/17 19:07 Dose: 4 mg MAR Pain Assessment Document 10/30/17 19:07 RG (Rec: 10/30/17 19:08 [id number]) Pain Reassessment Is this a pain reassessment? Yes Sleep Is patient sleeping during reassessment? No Presence of Pain Presence of Pain Yes Pain Scale Used Pain Scale Used Numeric Location Left, Right or Bilateral Left Upper or Lower Lower Pain Location Body Site Abdomen Description Description Constant Pain Behavior Moaning Guarding Aggravating Factors Contant IVP Administration Document 10/30/17 19:07 RG (Rec: 10/30/17 19:08 [id number]) Charges for Administration # of IVP Administrations 1 Morphine Sulfate (Morphine) 4 mg IVP STAT STA Stop: 10/30/17 19:17 Ondansetron HCl (Zofran Inj) 4 mg IVP STAT STA Stop: 10/30/17 16:18 Last Admin: 10/30/17 16:59 Dose: 4 mg IVP Administration Document 10/30/17 16:59 RG (Rec: 10/30/17 17:02 [id number]) Charges for Administration # of IVP Administrations 1 - Scribe Statement The provider has reviewed the documentation as recorded by the Scribe Hui Recinos Provider Scribe Attestation: All medical record entries made by the Scribe were at my direction and personally dictated by me. I have reviewed the chart and agree that the record accurately reflects my personal performance of the history, physical exam, medical decision making, and the department course for this patient. I have also personally directed, reviewed, and agree with the discharge instructions and disposition. Disposition/Present on Arrival - Present on Arrival Any Indicators Present on Arrival: No History of DVT/PE: No History of Uncontrolled Diabetes: No Urinary Catheter: No History of Decub. Ulcer: No History Surgical Site Infection Following: None - Disposition Have Diagnosis and Disposition been Completed?: Yes Diagnosis: Colitis Disposition: HOSPITALIZED Disposition Time: 19:13 Patient Plan: Observation Patient Problems: Current Active Problems Problem Status Onset Colitis Acute Condition: FAIR
[2017-10-30 17:04] LABS: BASO # 0.01 K/mm3 (0.0-2.0); BASO % 0.3 % (0.0-3.0); EOS % 0.3 % (1.5-5.0); GRAN # 1.99 (1.4-6.5); HEMOGLOBIN 12.3 g/dL (14.0-18.0); LYMPH # 1.4 (1.2-3.4); LYMPH % 37.8 % (22.0-35.0); MEAN CELL VOLUME 86.8 fl (80.0-105.0); MEAN CORPUSCULAR HEMOGLOBIN 28.5 pg (25.0-35.0); MEAN CORPUSCULAR HGB CONC 32.8 g/dl (31.0-37.0); MEAN PLATELET VOLUME 10.6 fl (7.0-11.0); MONO # 0.3 (0.1-0.6); MONO % 7.6 % (1.0-6.0); RBC 4.32 10^6/uL (3.5-6.1); WHITE BLOOD COUNT 3.7 10^3/ul (4.5-11.0)
[2017-10-30 17:23] LABS: ALB/GLOB RATIO 1.5 (1.1-1.8); ALBUMIN 4.7 g/dL (3.0-4.8); ALT/SGPT 39 U/L (7-56); AST/SGOT 42 U/L (17-59); BLOOD UREA NITROGEN 15 mg/dL (7-21); CALCIUM 9.3 mg/dL (8.4-10.5); GFR AFRICAN-AMERICAN > 60; GFR NON-AFRICAN AMERICAN > 60; LIPASE 70 U/L (23-300); MAGNESIUM 1.6 mg/dL (1.7-2.2)
[2017-10-30] MEDS ORDERED: Iohexol 350 MG/100 ML VIAL ONE (18:07)
[2017-10-30 18:31] LABS: URINE APPEARANCE CLEAR (CLEAR); URINE BILIRUBIN NEGATIVE (NEGATIVE); URINE BLOOD NEGATIVE (NEGATIVE); URINE COLOR YELLOW (YELLOW); URINE GLUCOSE (UA) NEGATIVE (NEGATIVE); URINE LEUKOCYTE ESTERASE NEGATIVE Leu/uL (NEGATIVE); URINE NITRATE NEGATIVE (NEGATIVE); URINE PROTEIN NEGATIVE mg/dL (<30 mg/dL); URINE UROBILINOGEN 0.2 E.U./dL (<1 E.U./dL)
[2017-10-30] MEDS ORDERED: Morphine 4 mg/ml ISec IVP STA ×2 (18:59→19:16)
--- NOTE | 2017-10-30 19:04 | CT ---
PROCEDURE: CT Abdomen and Pelvis with contrast HISTORY: abdominal pain, LLQ Vomiting 1 day duration. COMPARISON: 08/18/2017, 10/01/2017 TECHNIQUE: Contrast dose: 92 cc Omnipaque 350 lake Radiation dose: Total exam DLP = 310.91 mGy-cm. This CT exam was performed using one or more of the following dose reduction techniques: Automated exposure control, adjustment of the mA and/or kV according to patient size, and/or use of iterative reconstruction technique. FINDINGS: LOWER THORAX: Unremarkable. LIVER: Unremarkable. No gross lesion or ductal dilatation. GALLBLADDER AND BILE DUCTS: Unremarkable. PANCREAS: Unremarkable. No gross lesion or ductal dilatation. SPLEEN: Unremarkable. ADRENALS: Unremarkable. No mass. KIDNEYS AND URETERS: Unremarkable. No hydronephrosis. No solid mass. VASCULATURE: Unremarkable. No aortic aneurysm. BOWEL: Diffuse thickening of the wall of the colon accentuated by underfilling, absence of oral contrast. Findings may represent mild colitis. Diverticulosis again identified without evidence of acute diverticulitis. APPENDIX: Normal appendix. PERITONEUM: Unremarkable. No free fluid. No free air. LYMPH NODES: Unremarkable. No enlarged lymph nodes. BLADDER: Unremarkable. REPRODUCTIVE: Unremarkable. BONES: No acute fracture. OTHER FINDINGS: None. IMPRESSION: Thickening of the wall of the entire colon. Mild colitis should be considered. Similar findings were seen on a prior CT 08/18/2017. They were not apparent on the more recent CT of the abdomen pelvis 10/01/2017
[2017-10-30] MEDS ORDERED: metroNIDAZOLE IV 500 mg/100 ml 500 MG/100 ML BAG IVPB STA (19:12)
[2017-10-30] MEDS ORDERED: Ciprofloxacin 400mg/200ml D5W 400 MG/200 ML BAG IVPB STA (19:12)
--- NOTE | 2017-10-30 20:34 | CP.PCM.HP ---
<Leonides Askew - Last Filed: 10/31/17 04:37> History of Present Illness - History of Present Illness History of Present Illness: Mr. 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 Patient reports that while at rest at his home this morning around 0800, he began to feel nauseous with no inciting event reported. Patient then began to vomit nonbloody emesis so often that the patient lost track of the number of episodes of this. He reports that this continued throughout the day and that he was unable to tolerate PO intake, including liquids. He also endorses one episode of normal colored diarrhea and afterwards noticed that he had bright red blood on his toilet paper after wiping without blood in the toilet. 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 Patient denies any fever, chills, headache, changes in his vision, dysphagia, chest pain, palpitations, syncope, SOB, cough, wheezing, melena, hematemesis, burning/pain with urination, any new rashes, easy bleeding/bruising, polyphagia, polydipsia, or any numbness/tingling/weakness of any extremity. PMH: Alcohol Abuse, Anxiety, and Colitis PSH: Right Ankle surgery Family History: Denies Social History: Smokes 4-5 cigarettes/day, drinks one pint of vodka on a daily basis and uses cocaine infrequently Allergies: NKDA Home Medications: As per MAR Present on Admission - Present on Admission Any Indicators Present on Admission: No Review of Systems - Review of Systems Review of Systems: As per HPI Past Patient History - Infectious Disease Hx of Infectious Diseases: None - Tetanus Immunizations Tetanus Immunization: Unknown - Past Medical History & Family History Past Medical History?: Yes - Past Social History Smoking Status: Current Some Days Smoker - CARDIAC Hx Hypertension: Yes - PULMONARY Hx Respiratory Disorders: No - NEUROLOGICAL Hx Neurological Disorder: Yes Hx Dizziness: Yes Other/Comment: neuropathy - HEENT Hx HEENT Problems: No - RENAL Hx Chronic Kidney Disease: No - ENDOCRINE/METABOLIC Hx Endocrine Disorders: No - HEMATOLOGICAL/ONCOLOGICAL Hx Blood Disorders: No - INTEGUMENTARY Hx Dermatological Problems: No - MUSCULOSKELETAL/RHEUMATOLOGICAL Hx Musculoskeletal Disorders: Yes (RIGHT FOOT SURGERY WITH RODS AND SCREWS, RIGHT ANKLE FX.) - GASTROINTESTINAL Hx Gastrointestinal Disorders: Yes Hx Gastroesophageal Reflux: Yes - GENITOURINARY/GYNECOLOGICAL Hx Genitourinary Disorders: No - PSYCHIATRIC Hx Psychophysiologic Disorder: Yes Hx Anxiety: Yes Hx Depression: Yes Hx Substance Use: Yes (marijuna ,cocaine) Other/Comment: ETOH, substance abuse - SURGICAL HISTORY Hx Musculoskeletal Surgery: Yes (R foot sx with rods/screws placed) Hx Orthopedic Surgery: Yes - ANESTHESIA Hx Anesthesia: Yes Hx Anesthesia Reactions: No Hx Malignant Hyperthermia: No Meds Allergies/Adverse Reactions: Allergies Allergy/AdvReac Type Severity Reaction Status Date / Time No Known Allergies Allergy Verified 10/30/17 15:59 Physical Exam - Constitutional Appears: Non-toxic, No Acute Distress - Head Exam Head Exam: ATRAUMATIC, NORMAL INSPECTION, NORMOCEPHALIC - Eye Exam Eye Exam: EOMI, Normal appearance, PERRL Pupil Exam: NORMAL ACCOMODATION, PERRL - ENT Exam ENT Exam: Mucous Membranes Dry. absent: Mucous Membranes Moist, Normal Exam - Neck Exam Neck exam: Positive for: Full Rom, Normal Inspection. Negative for: Lymphadenopathy, Meningismus, Tenderness, Thyromegaly - Respiratory Exam Respiratory Exam: Clear to Auscultation Bilateral, NORMAL BREATHING PATTERN. absent: Accessory Muscle Use, Chest Wall Tenderness, Decreased Breath Sounds, Prolonged Expiratory Phase, Rales, Rhonchi, Wheezes, Respiratory Distress, Stridor - Cardiovascular Exam Cardiovascular Exam: REGULAR RHYTHM, RRR, +S1, +S2. absent: Bradycardia, Tachycardia, Diastolic murmur, Irregular Rhythm, JVD, +S4, Systolic Murmur - GI/Abdominal Exam GI & Abdominal Exam: Normal Bowel Sounds, Soft, Tenderness (Tenderness to deep palpation in LLQ with no rebound or guarding). absent: Bruit, Diminished Bowel Sounds, Distended, Firm, Guarding, Hernia, Hyperactive Bowel Sounds, Hypoactive Bowel Sounds, Organomegaly, Pulsatile Mass, Rebound, Rigid - Rectal Exam Rectal Exam: NORMAL INSPECTION. absent: Black Stool, Bloody Stool, Hemorrhoids , Fecal Impaction - Extremities Exam Extremities exam: Positive for: full ROM, normal capillary refill, normal inspection, pedal pulses present. Negative for: calf tenderness, joint swelling , pedal edema, tenderness - Back Exam Back exam: FULL ROM, NORMAL INSPECTION. absent: CVA tenderness (L), CVA tenderness (R), muscle spasm, paraspinal tenderness, rash noted, tenderness, vertebral tenderness - Neurological Exam Neurological exam: Alert, CN II-XII Intact, Oriented x3 - Psychiatric Exam Psychiatric exam: Normal Affect, Normal Mood - Skin Skin Exam: Dry, Intact, Normal Color, Warm Results - Vital Signs Recent Vital Signs: Last Vital Signs Temp 98.5 F 10/30/17 17:25 Pulse 73 10/30/17 20:00 Resp 20 10/30/17 20:00 BP 156/83 H 10/30/17 20:00 Pulse Ox 100 10/30/17 20:00 - Labs Result Diagrams: 10/30/17 16:45 10/30/17 16:45 Assessment & Plan - Assessment and Plan (Free Text) Assessment: 42 year old AA male with a past medical history of alcohol abuse/withdrawal, colitis, HTN, and anxiety who presents with a chief complaint of intermittent sharp LLQ pain 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 CT abdomen/pelvis showed that thickening of the colon wall throughout colon, a finding noted to be similar to previous CT's but was not present on his most recent CT in 10/13. Patient afebrile with no leukocytosis, tachycardia or tachypnea. 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 Plan: 1. Colitis with associated N/V and diarrhea -CT showing thickening of the wall of the entire colon -IV Cipro and Flagyl -Zofran 4mg IVP Q4H PRN for N/V -C.Diff toxin/antigen, FOBT, blood and stool cultures pending -NPO Diet -Daily CBC -GI Consulted 2. Alcohol Abuse/Withdrawal -Banana Bag IV -Mag/Phos, UDS, Alcohol Serum pending -Daily CMP's -CIWA, Seizure, and Aspiration precautions 3. HTN -Hydralazine 10mg IVP Q6H for SBP >180 -Hold home PO Norvasc GI Prophylaxis: Protonix DVT Prophylaxis: SCD's Patient seen and case discussed with attending, Dr. Palacios. - Date & Time Date: 10/30/17 Time: 21:59 Decision To Admit - Pt Status Changed To: Hospital Disposition Of: Observation - . Bed Request Type: Med/Surg <Gabriele Palacios - Last Filed: 10/31/17 05:52> Results - Vital Signs Recent Vital Signs: Last Vital Signs Temp 99.2 F 10/30/17 23:07 Pulse 20 L 10/30/17 23:07 Resp 20 10/30/17 23:07 BP 150/102 H 10/30/17 23:07 Pulse Ox 100 10/30/17 20:00 - Labs Result Diagrams: 10/30/17 16:45 10/30/17 16:45 Attending/Attestation - Attestation I have personally seen and examined this patient.: Yes I have fully participated in the care of the patient.: Yes I have reviewed all pertinent clinical information: Yes Notes (Text): 10/31/17 05:51 Patient was seen when he was in the ER-[facility] room. Agree with history, physical examination, assessment and plan with following impressions. LLQ discomfort. Vomiting/diarrhoea. Colitis. Hypokalemia. Hypomagnesemia. Borderline anemia. HTN. Dizziness. Neuropathy. Hx Right ankle ORIF. GERD. Anxiety. Depression. ETOH. Marijuana. Cocaine abuse. Smoker.
[2017-10-30] MEDS ORDERED: Vitamins A & D Oint UD Foilpak TOP PRN (21:32)
[2017-10-30] MEDS: Folic Acid 1 MG, Thiamine 100 MG, Multivitamin (MVI) 10 ML in Dextrose 5% In Water 1,00... IV SCH (22:34)
[2017-10-31 02:16] VITALS: BMI 20.9
[2017-10-31] MEDS ORDERED: Magnesium Sulfate 1 gm in D5W 1 GM/100 ML BAG IVPB ONE (03:46)
[2017-10-31] MEDS ORDERED: Potassium Chloride 20 mEq ER Tab PO STA (03:46)
[2017-10-31] MEDS: metroNIDAZOLE IV 500 mg/100 ml 500 MG/100 ML BAG IVPB SCH ×3 (06:21→21:40)
[2017-10-31 07:14] LABS: BASO # 0.01 K/mm3 (0.0-2.0); BASO % 0.3 % (0.0-3.0); EOS % 0.8 % (1.5-5.0); GRAN # 1.55 (1.4-6.5); GRAN % 43.3 % (50.0-68.0); HEMOGLOBIN 12.1 g/dL (14.0-18.0); LYMPH # 1.6 (1.2-3.4); LYMPH % 44.1 % (22.0-35.0); MEAN CELL VOLUME 86.9 fl (80.0-105.0); MEAN CORPUSCULAR HEMOGLOBIN 28.3 pg (25.0-35.0); MEAN CORPUSCULAR HGB CONC 32.6 g/dl (31.0-37.0); MEAN PLATELET VOLUME 10.5 fl (7.0-11.0); MONO # 0.4 (0.1-0.6); MONO % 11.5 % (1.0-6.0); RBC 4.27 10^6/uL (3.5-6.1); WHITE BLOOD COUNT 3.6 10^3/ul (4.5-11.0)
--- NOTE | 2017-10-31 07:43 | CP.PCM.PN ---
<Denilson Nino - Last Filed: 10/31/17 11:27> Subjective - Date & Time of Evaluation Date of Evaluation: 10/31/17 Time of Evaluation: 06:00 - Subjective Subjective: Patient seen and evaluated bedside. Patient lying comfortably in acute distress. Patient says abdominal pain is improving and also states nausea/ vomiting/ and diarrhea has resolved. He has no other complaints and wants to eat. He was told his diet will be advanced as tolerated and agreed. Objective - Vital Signs/Intake and Output Vital Signs (last 24 hours): Temp Pulse Resp BP Pulse Ox 99.2 F 20 L 20 150/102 H 100 10/30/17 23:07 10/30/17 23:07 10/30/17 23:07 10/30/17 23:07 10/30/17 20:00 Intake and Output: 10/31/17 10/31/17 06:59 18:59 Intake Total 0 Output Total 2 Balance -2 - Medications Medications: Current Medications Hydralazine HCl (Apresoline) 10 mg IVP Q6 PRN PRN Reason: Systolic Blood Pressure Folic Acid 1 mg/ Thiamine HCl 100 mg/ Multivitamins/Vitamin C 10 ml/ Dextrose 1 ,011.2 mls @ 100 mls/hr IV .Q10H7M [facility] Last Admin: 10/30/17 22:34 Dose: 100 mls/hr Ciprofloxacin (Cipro 400mg/200ml Dsw) 400 mg in 200 mls @ 133.3 mls/hr IVPB Q12 ALEXANDRA PRN Reason: Protocol Stop: 10/31/17 11:31 Metronidazole (Flagyl) 500 mg in 100 mls @ 100 mls/hr IVPB Q8 ALEXANDRA PRN Reason: Protocol Last Admin: 10/31/17 06:21 Dose: 100 mls/hr Ondansetron HCl (Zofran Inj) 4 mg IVP Q4H PRN PRN Reason: Nausea/Vomiting Pantoprazole Sodium (Protonix Inj) 40 mg IVP DAILY [facility] Vitamin A (Vitamin A & D Oint Ud Foilpak) 1 ea TOP Q4 PRN PRN Reason: Dry Lips - Labs Labs: 10/31/17 06:45 - Constitutional Appears: Non-toxic, No Acute Distress - Head Exam Head Exam: ATRAUMATIC, NORMAL INSPECTION, NORMOCEPHALIC - Eye Exam Eye Exam: EOMI, Normal appearance, PERRL - ENT Exam ENT Exam: Mucous Membranes Moist, Normal Exam - Neck Exam Neck Exam: Full ROM. absent: Lymphadenopathy, Tenderness - Respiratory Exam Respiratory Exam: Clear to Ausculation Bilateral, NORMAL BREATHING PATTERN - Cardiovascular Exam Cardiovascular Exam: REGULAR RHYTHM, +S1, +S2 - GI/Abdominal Exam GI & Abdominal Exam: Soft, Tenderness Additional comments: tenderness to palpation LLQ - Extremities Exam Extremities Exam: Full ROM, Normal Inspection - Neurological Exam Neurological Exam: Alert, Awake, Oriented x3 Assessment and Plan - Assessment and Plan (Free Text) Assessment: 42 year old AA male with a past medical history of alcohol abuse/withdrawal, colitis, HTN, and anxiety who presents with a chief complaint of intermittent sharp LLQ pain 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 CT abdomen/pelvis showed that thickening of the colon wall throughout colon, a finding noted to be similar to previous CT's but was not present on his most recent CT in 10/13. Patient afebrile with no leukocytosis, tachycardia or tachypnea. Patient reports chronic alcohol abuse with his last drink 24 hours JAILER. Plan: 1. Colitis with associated N/V and diarrhea -CT showing thickening of the wall of the entire colon -IV Cipro and Flagyl -Zofran 4mg IVP Q4H PRN for N/V -C.Diff toxin/antigen, FOBT, blood and stool cultures pending -NPO Diet, will advance later on today -Daily CBC -GI Consulted 2. Alcohol Abuse/Withdrawal -Banana Bag IV -Mag 2.0 Phos 3.3 -UDS pending -Alcohol Serum: 74 yesterday -Daily CMP's -CIWA, Seizure, and Aspiration precautions -Ativan PRN for withdrawals 3. HTN -Hydralazine 10mg IVP Q6H for SBP >180 -Hold home PO Norvasc 4 Hypokalemia -K 3.0 -repleted -continue to monitor GI Prophylaxis: Protonix DVT Prophylaxis: SCD's <Addie Melendez - Last Filed: 10/31/17 12:58> Objective - Vital Signs/Intake and Output Vital Signs (last 24 hours): Temp Pulse Resp BP Pulse Ox 98 F 73 16 137/96 H 100 10/31/17 06:00 10/31/17 06:00 10/31/17 06:00 10/31/17 06:00 10/31/17 06:00 Intake and Output: 10/31/17 10/31/17 06:59 18:59 Intake Total 900 Output Total 2 Balance 898 - Medications Medications: Current Medications Hydralazine HCl (Apresoline) 10 mg IVP Q6 PRN PRN Reason: Systolic Blood Pressure Folic Acid 1 mg/ Thiamine HCl 100 mg/ Multivitamins/Vitamin C 10 ml/ Dextrose 1 ,011.2 mls @ 100 mls/hr IV .Q10H7M [facility] Last Admin: 10/31/17 07:45 Dose: 100 mls/hr Metronidazole (Flagyl) 500 mg in 100 mls @ 100 mls/hr IVPB Q8 ALEXANDRA PRN Reason: Protocol Last Admin: 10/31/17 06:21 Dose: 100 mls/hr Ceftriaxone Sodium (Rocephin 2 Gm Ivpb) 2 gm in 100 mls @ 100 mls/hr IVPB DAILY ALEXANDRA PRN Reason: Protocol Last Admin: 10/31/17 12:50 Dose: 100 mls/hr Lorazepam (Ativan) 2 mg IVP Q6H PRN; Protocol PRN Reason: Symptoms of alcohol withdrawl Ondansetron HCl (Zofran Inj) 4 mg IVP Q4H PRN PRN Reason: Nausea/Vomiting Pantoprazole Sodium (Protonix Inj) 40 mg IVP DAILY [facility] Last Admin: 10/31/17 10:58 Dose: 40 mg Vitamin A (Vitamin A & D Oint Ud Foilpak) 1 ea TOP Q4 PRN PRN Reason: Dry Lips - Labs Labs: 10/31/17 06:45 10/31/17 06:45 Attending/Attestation - Attestation I have personally seen and examined this patient.: Yes I have fully participated in the care of the patient.: Yes I have reviewed all pertinent clinical information, including history, physical exam and plan: Yes Notes (Text): 10/31/17 12:55 42 year old male with past medical history of alcohol abuse and substance abuse who presented with LLQ pain. CT scan showed colitis. He is on iv antibiotics. GI evaluation was appreciated. Will advance diet to liquids as tolerated. Continue with banana bag and ativan prn. Monitor for withdrawal symptoms. He was counselled on alcohol abstinence. Will replete and repeat lytes. Addie Melendez MD Hospitalist.
[2017-10-31] MEDS: Folic Acid 1 MG, Thiamine 100 MG, Multivitamin (MVI) 10 ML in Dextrose 5% In Water 1,00... IV SCH (07:45)
[2017-10-31 07:55] LABS: ALB/GLOB RATIO 1.4 (1.1-1.8); ALBUMIN 4.3 g/dL (3.0-4.8); ALT/SGPT 43 U/L (7-56); AST/SGOT 42 U/L (17-59); BLOOD UREA NITROGEN 7 mg/dL (7-21); CALCIUM 9.2 mg/dL (8.4-10.5); GFR AFRICAN-AMERICAN > 60; GFR NON-AFRICAN AMERICAN > 60
[2017-10-31] MEDS ORDERED: Potassium Chloride 20 mEq ER Tab PO ONE (09:03)
[2017-10-31] MEDS ORDERED: Ciprofloxacin 400mg/200ml D5W 400 MG/200 ML BAG IVPB SCH (10:00)
[2017-10-31] MEDS: cefTRIAXone 2 GM IN NS 2 GM/100 ML BAG IVPB SCH (12:50)
--- NOTE | 2017-10-31 13:37 | CON ---
DATE: 10/31/2017 HISTORY OF PRESENT ILLNESS: This is a 42-year-old black male with complaints of nausea and vomiting which started yesterday morning, associated with abdominal discomfort in the left part of the abdomen. The patient has had several episodes like this before. PAST MEDICAL HISTORY: Significant for anxiety, , sores, alcohol use which is extensive. He drinks a pint of vodka daily. Prior to coming to the hospital, the patient's nausea became overwhelming, began to vomit continuously and this was associated with diarrhea as well. The patient subsequently came into the hospital. He denies any fever, chills, cough, shortness of breath, etc. PHYSICAL EXAMINATION VITAL SIGNS: I reviewed this patient's vital signs. HEENT: Significant for dry mouth. LUNGS: Clear to auscultation. HEART: Regular rhythm. ABDOMEN: Mildly distended. Right upper and right lower quadrant noncontributory. Palpation of the periumbilical area with some discomfort in the left lower quadrant. There is a substantial fullness noted in the left periumbilical and the left lower quadrant. Pain reported roughly around 7/10 to 8/10, left lower quadrant. IMAGING: His CT scan indicates diffuse thickening in the lower colon, the more significant in the area of the left lower quadrant and sigmoid. Note that there are scattered diverticula noted on the CT scan. LABORATORY DATA: Indicated white count of 3.7 with an H and H of 12 and 37, platelet count 215. Review of CMP noncontributory. Alcohol level of 74. Serology is negative. ASSESSMENT: This is a 42-year-old black male admitted with complaints of nausea, vomiting, and diarrhea associated with left lower quadrant pain. Based on CT findings and especially physical exam, can interpret possibility of diverticulitis. Note that the patient is currently on metronidazole and Cipro. This could conceivably be changed to Rocephin and Flagyl or Levaquin and Flagyl later on this morning. The patient is on pantoprazole ondansetron for symptom control. Currently, n.p.o. diet as well. Buddy Rodriguez DO [facility] # [id number]
[2017-10-31 13:43] LABS: ALB/GLOB RATIO 1.4 (1.1-1.8); ALBUMIN 4.7 g/dL (3.0-4.8); ALT/SGPT 48 U/L (7-56); AST/SGOT 56 U/L (17-59); BLOOD UREA NITROGEN 5 mg/dL (7-21); CALCIUM 9.6 mg/dL (8.4-10.5); GFR AFRICAN-AMERICAN > 60; GFR NON-AFRICAN AMERICAN > 60
[2017-10-31 23:03] LABS: BARBITURATES, UR NEGATIVE (NEGATIVE); BENZODIAZEPINES, UR NEGATIVE (NEGATIVE); OPIATES, UR NEGATIVE (NEGATIVE); PHENCYCLIDINE, UR NEGATIVE (NEGATIVE)
[2017-11-01] MEDS: Folic Acid 1 MG, Thiamine 100 MG, Multivitamin (MVI) 10 ML in Dextrose 5% In Water 1,00... IV SCH (00:57)
[2017-11-01 04:31] VITALS: BP 132/92; PULSE 85; RESP 18; TEMP 97.9; O2SAT 98
[2017-11-01] MEDS: metroNIDAZOLE IV 500 mg/100 ml 500 MG/100 ML BAG IVPB SCH ×2 (07:03→16:45)
[2017-11-01 07:13] LABS: BASO # 0.01 K/mm3 (0.0-2.0); BASO % 0.3 % (0.0-3.0); EOS # 0.1 (0.0-0.7); EOS % 1.3 % (1.5-5.0); GRAN # 2.07 (1.4-6.5); GRAN % 53.3 % (50.0-68.0); HEMOGLOBIN 12.5 g/dL (14.0-18.0); LYMPH # 1.3 (1.2-3.4); LYMPH % 33.5 % (22.0-35.0); MEAN CELL VOLUME 86.5 fl (80.0-105.0); MEAN CORPUSCULAR HEMOGLOBIN 28.1 pg (25.0-35.0); MEAN CORPUSCULAR HGB CONC 32.5 g/dl (31.0-37.0); MEAN PLATELET VOLUME 11.1 fl (7.0-11.0); MONO # 0.5 (0.1-0.6); MONO % 11.6 % (1.0-6.0); RBC 4.45 10^6/uL (3.5-6.1); RED CELL DISTRIBUTION WIDTH 13.7 % (11.5-14.5); WHITE BLOOD COUNT 3.9 10^3/ul (4.5-11.0)
[2017-11-01 07:37] LABS: ALB/GLOB RATIO 1.5 (1.1-1.8); ALBUMIN 4.5 g/dL (3.0-4.8); ALT/SGPT 41 U/L (7-56); AST/SGOT 50 U/L (17-59); BLOOD UREA NITROGEN 3 mg/dL (7-21); CALCIUM 9.6 mg/dL (8.4-10.5); GFR AFRICAN-AMERICAN > 60; GFR NON-AFRICAN AMERICAN > 60
--- NOTE | 2017-11-01 10:10 | PN ---
DATE: 11/01/2017 SUBJECTIVE: I saw Mr. Craig this morning. He is a [id number] male with complaints of nausea, vomiting, diarrhea, and abdominal pain. The patient was initiated on antibiotic therapy yesterday, which was initiated at [facility], subsequently now on ceftriaxone and metronidazole. This has produced a very good result. Since that relative to day of admission. The patient handled liquid diet without difficulty. PHYSICAL EXAMINATION: VITAL SIGNS: I reviewed this patient's vital signs. HEENT: Noncontributory. LUNGS: Clear to auscultation. HEART: Regular rhythm. ABDOMEN: Still mildly distended. log deck tender in the area of the periumbilical area. Palpation of the left upper quadrant and left lower quadrant indicates a substantial fullness and is glass cut off tender, however, slightly less than yesterday. We would continue on current antibiotic regimen. OVERALL ASSESSMENT: A 42-year-old black male with presumptive diverticulitis, currently on ceftriaxone and metronidazole. He is currently making progress with the current regimen, so continue the same. Maintain a liquid diet at least for now. Budyd Rodriguez DO
[2017-11-01] MEDS: cefTRIAXone 2 GM IN NS 2 GM/100 ML BAG IVPB SCH (11:23)
[2017-11-01] MEDS ORDERED: Potassium Chloride 20 mEq ER Tab PO ONE ×2 (12:55→16:45)
--- NOTE | 2017-11-01 13:02 | CP.PCM.PN ---
<Denilson Nino - Last Filed: 11/01/17 12:58> Subjective - Date & Time of Evaluation Date of Evaluation: 11/01/17 Time of Evaluation: 06:00 - Subjective Subjective: Patient seen and evaluated bedside. He stated he had 4 episodes of diarrhe with last one being 5:30 am. He said he was tolerating the clear liquids and was hungry. He also stated his abdominal pain had subsided. Denied chest pain, nausea, vomiting, or any other compllaints at this time. Objective - Vital Signs/Intake and Output Vital Signs (last 24 hours): Temp Pulse Resp BP Pulse Ox 97.9 F 85 18 132/92 H 98 11/01/17 00:00 11/01/17 00:00 11/01/17 00:00 11/01/17 00:00 11/01/17 00:00 Intake and Output: 11/01/17 11/01/17 06:59 18:59 Intake Total 1340 Output Total 700 Balance 640 - Medications Medications: Current Medications Hydralazine HCl (Apresoline) 10 mg IVP Q6 PRN PRN Reason: Systolic Blood Pressure Folic Acid 1 mg/ Thiamine HCl 100 mg/ Multivitamins/Vitamin C 10 ml/ Dextrose 1 ,011.2 mls @ 100 mls/hr IV .Q10H7M [facility] Last Admin: 11/01/17 00:57 Dose: 100 mls/hr Metronidazole (Flagyl) 500 mg in 100 mls @ 100 mls/hr IVPB Q8 ALEXANDRA PRN Reason: Protocol Last Admin: 11/01/17 07:03 Dose: 100 mls/hr Ceftriaxone Sodium (Rocephin 2 Gm Ivpb) 2 gm in 100 mls @ 100 mls/hr IVPB DAILY [facility] PRN Reason: Protocol Last Admin: 11/01/17 11:23 Dose: 100 mls/hr Lorazepam (Ativan) 2 mg IVP Q6H PRN; Protocol PRN Reason: Symptoms of alcohol withdrawl Ondansetron HCl (Zofran Inj) 4 mg IVP Q4H PRN PRN Reason: Nausea/Vomiting Pantoprazole Sodium (Protonix Inj) 40 mg IVP DAILY [facility] Last Admin: 11/01/17 11:23 Dose: 40 mg Potassium Chloride (K-Dur 20 Meq Er Tab) 40 meq PO ONCE ONE Stop: 11/01/17 12:56 Vitamin A (Vitamin A & D Oint Ud Foilpak) 1 ea TOP Q4 PRN PRN Reason: Dry Lips Last Admin: 11/01/17 11:23 Dose: 1 ea - Labs Labs: 11/01/17 06:50 11/01/17 06:50 - Constitutional Appears: Non-toxic, No Acute Distress - Head Exam Head Exam: ATRAUMATIC, NORMAL INSPECTION, NORMOCEPHALIC - Eye Exam Eye Exam: EOMI, Normal appearance Pupil Exam: NORMAL ACCOMODATION - ENT Exam ENT Exam: Mucous Membranes Moist - Neck Exam Neck Exam: Full ROM - Respiratory Exam Respiratory Exam: Clear to Ausculation Bilateral, NORMAL BREATHING PATTERN - Cardiovascular Exam Cardiovascular Exam: REGULAR RHYTHM, +S1, +S2 - GI/Abdominal Exam GI & Abdominal Exam: Soft, Normal Bowel Sounds. 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 CT abdomen/pelvis showed that thickening of the colon wall throughout colon, a finding noted to be similar to previous CT's but was not present on his most recent CT in 10/13. Patient afebrile with no leukocytosis, tachycardia or tachypnea. 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 Plan: 1. Colitis with associated N/V and diarrhea -CT showing thickening of the wall of the entire colon -IV Cipro and Flagyl -Zofran 4mg IVP Q4H PRN for N/V -C.Diff toxin/antigen, FOBT, blood and stool cultures pending -Patient tolerated clear liquid yesterday, will advance to full liquids today and possible soft diet in afternoon -Daily CBC -GI Consulted 2. Alcohol Abuse/Withdrawal -no signs of active withdrawal -Banana Bag IV -Mag 2.0 Phos 3.3 -UDS neative -Daily CMP's -CIWA, Seizure, and Aspiration precautions -Ativan PRN for withdrawals 3. HTN -Hydralazine 10mg IVP Q6H for SBP >180 -Hold home PO Norvasc 4 Hypokalemia -K 3.3 -repleted -continue to monitor GI Prophylaxis: Protonix DVT Prophylaxis: SCD's <Addie Melendez - Last Filed: 11/01/17 14:26> Objective - Vital Signs/Intake and Output Vital Signs (last 24 hours): Temp Pulse Resp BP Pulse Ox 97.9 F 85 18 132/92 H 98 11/01/17 00:00 11/01/17 00:00 11/01/17 00:00 11/01/17 00:00 11/01/17 00:00 Intake and Output: 11/01/17 11/01/17 06:59 18:59 Intake Total 1340 Output Total 700 Balance 640 - Medications Medications: Current Medications Hydralazine HCl (Apresoline) 10 mg IVP Q6 PRN PRN Reason: Systolic Blood Pressure Folic Acid 1 mg/ Thiamine HCl 100 mg/ Multivitamins/Vitamin C 10 ml/ Dextrose 1 ,011.2 mls @ 100 mls/hr IV .Q10H7M [facility] Last Admin: 11/01/17 00:57 Dose: 100 mls/hr Metronidazole (Flagyl) 500 mg in 100 mls @ 100 mls/hr IVPB Q8 ALEXANDRA PRN Reason: Protocol Last Admin: 11/01/17 07:03 Dose: 100 mls/hr Ceftriaxone Sodium (Rocephin 2 Gm Ivpb) 2 gm in 100 mls @ 100 mls/hr IVPB DAILY [facility] PRN Reason: Protocol Last Admin: 11/01/17 11:23 Dose: 100 mls/hr Lorazepam (Ativan) 2 mg IVP Q6H PRN; Protocol PRN Reason: Symptoms of alcohol withdrawl Ondansetron HCl (Zofran Inj) 4 mg IVP Q4H PRN PRN Reason: Nausea/Vomiting Pantoprazole Sodium (Protonix Inj) 40 mg IVP DAILY [facility] Last Admin: 11/01/17 11:23 Dose: 40 mg Vitamin A (Vitamin A & D Oint Ud Foilpak) 1 ea TOP Q4 PRN PRN Reason: Dry Lips Last Admin: 11/01/17 11:23 Dose: 1 ea - Labs Labs: 11/01/17 06:50 11/01/17 06:50 Attending/Attestation - Attestation I have personally seen and examined this patient.: Yes I have fully participated in the care of the patient.: Yes I have reviewed all pertinent clinical information, including history, physical exam and plan: Yes Notes (Text): 11/01/17 14:21 42 year old male with past medical history of alcohol abuse and substance abuse who presented with LLQ pain. CT scan showed colitis. He is on iv antibiotics. His symptoms continue to improve. Will advance diet. He complained of loose stools last night, now improving. Stool for cdif was ordered. Continue with banana bag and ativan prn. Monitor for withdrawal symptoms. He was counselled on alcohol abstinence. Potassium was supplemented. Case discussed with GI. Possible d/c planning within 24 hrs if stable. Addie Melendez MD Hospitalist.
--- NOTE | 2017-11-02 12:52 | CP.PCM.DIS ---
<Denilson Nino - Last Filed: 11/02/17 12:46> Provider - Provider Date of Admission: 10/31/17 15:59 Attending physician: Addie Melendez MD Primary care physician: Griselda Heard MD Consults: GI- Jennifer Time Spent in preparation of Discharge (in minutes): 70 Hospital Course - Lab Results Lab Results: Micro Results 11/01/17 06:20 Stool C. difficile Antigen & Toxin A,B (M - Final Most Recent Lab Values WBC 3.9 10^3/ul (4.5-11.0) L 11/01/17 06:50 RBC 4.45 10^6/uL (3.5-6.1) 11/01/17 06:50 Hgb 12.5 g/dL (14.0-18.0) L 11/01/17 06:50 Hct 38.5 % (42.0-52.0) L 11/01/17 06:50 MCV 86.5 fl (80.0-105.0) 11/01/17 06:50 MCH 28.1 pg (25.0-35.0) 11/01/17 06:50 MCHC 32.5 g/dl (31.0-37.0) 11/01/17 06:50 RDW 13.7 % (11.5-14.5) 11/01/17 06:50 Plt Count 191 10^3/uL (120.0-450.0) 11/01/17 06:50 MPV 11.1 fl (7.0-11.0) H 11/01/17 06:50 Gran % 53.3 % (50.0-68.0) 11/01/17 06:50 Lymph % (Auto) 33.5 % (22.0-35.0) 11/01/17 06:50 Spencer % (Auto) 11.6 % (1.0-6.0) H 11/01/17 06:50 Eos % (Auto) 1.3 % (1.5-5.0) L 11/01/17 06:50 Baso % (Auto) 0.3 % (0.0-3.0) 11/01/17 06:50 Gran # 2.07 (1.4-6.5) 11/01/17 06:50 Lymph # 1.3 (1.2-3.4) 11/01/17 06:50 Spencer # 0.5 (0.1-0.6) 11/01/17 06:50 Eos # 0.1 (0.0-0.7) 11/01/17 06:50 Baso # 0.01 K/mm3 (0.0-2.0) 11/01/17 06:50 Sodium 136 mmol/L (132-148) 11/01/17 06:50 Potassium 3.3 mmol/L (3.6-5.0) L 11/01/17 06:50 Chloride 98 mmol/L (98-107) 11/01/17 06:50 Carbon Dioxide 28 mmol/L (21-33) 11/01/17 06:50 Anion Gap 14 (10-20) 11/01/17 06:50 BUN 3 mg/dL (7-21) L 11/01/17 06:50 Creatinine 0.9 mg/dl (0.8-1.5) 11/01/17 06:50 Est GFR ( Amer) > 60 11/01/17 06:50 Est GFR (Non-Af Amer) > 60 11/01/17 06:50 Random Glucose 112 mg/dL (70-110) H 11/01/17 06:50 Calcium 9.6 mg/dL (8.4-10.5) 11/01/17 06:50 Phosphorus 3.3 mg/dL (2.5-4.5) 10/31/17 06:45 Magnesium 2.0 mg/dL (1.7-2.2) 10/31/17 06:45 Total Bilirubin 0.9 mg/dL (0.2-1.3) 11/01/17 06:50 AST 50 U/L (17-59) 11/01/17 06:50 ALT 41 U/L (7-56) 11/01/17 06:50 Alkaline Phosphatase 50 U/L (38-126) 11/01/17 06:50 Total Protein 7.6 g/dL (5.8-8.3) 11/01/17 06:50 Albumin 4.5 g/dL (3.0-4.8) 11/01/17 06:50 Globulin 3.0 gm/dL 11/01/17 06:50 Albumin/Globulin Ratio 1.5 (1.1-1.8) 11/01/17 06:50 Lipase 70 U/L (23-300) 10/30/17 16:45 Urine Color Yellow (YELLOW) 10/30/17 18:17 Urine Appearance Clear (CLEAR) 10/30/17 18:17 Urine pH 7.0 (4.7-8.0) 10/30/17 18:17 Ur Specific Bucks 1.020 (1.005-1.035) 10/30/17 18:17 Urine Protein Negative mg/dL (<30 mg/dL) 10/30/17 18:17 Urine Glucose (UA) Negative mg/dL (NEGATIVE) 10/30/17 18:17 Urine Ketones Trace mg/dL (NEGATIVE) H 10/30/17 18:17 Urine Blood Negative (NEGATIVE) 10/30/17 18:17 Urine Nitrate Negative (NEGATIVE) 10/30/17 18:17 Urine Bilirubin Negative (NEGATIVE) 10/30/17 18:17 Urine Urobilinogen 0.2 E.U./dL (<1 E.U./dL) 10/30/17 18:17 Ur Leukocyte Esterase Negative Georges/uL (NEGATIVE) 10/30/17 18:17 Stool Occult Blood Negative (NEGATIVE) 11/01/17 06:20 Urine Opiates Screen Negative (NEGATIVE) 10/31/17 22:40 Urine Methadone Screen Negative (NEGATIVE) 10/31/17 22:40 Ur Barbiturates Screen Negative (NEGATIVE) 10/31/17 22:40 Ur Phencyclidine Scrn Negative (NEGATIVE) 10/31/17 22:40 Ur Amphetamines Screen Negative (NEGATIVE) 10/31/17 22:40 U Benzodiazepines Scrn Negative (NEGATIVE) 10/31/17 22:40 U Oth Cocaine Metabols Negative (NEGATIVE) 10/31/17 22:40 U Cannabinoids Screen Negative (NEGATIVE) 10/31/17 22:40 Alcohol, Quantitative 74 mg/dL (0-10) H 10/30/17 16:45 Influenza Typ A,B (EIA) Negative for flu a/b (NEGATIVE) 10/30/17 17:18 - Hospital Course Hospital Course: 42 year old AA male with a past medical history of alcohol abuse/withdrawal, colitis, HTN, and anxiety who presented with a chief complaint of intermittent sharp LLQ pain for 12 hours [employer] with 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 CT abdomen/pelvis showed that thickening of the colon wall throughout colon, a finding noted to be similar to previous CT's but was not present on his most recent CT in 10/13. Patient was afebrile with no leukocytosis, tachycardia or tachypnea. 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 Ct of the adbomen was done showing thickening of the wall of the entire colon. He was given Cipro and Flagyl. Zofran was given for nausea, he was NPO and diet was slowly advanced from clear liquids to soft foods. C diff toxin was ordered and GI was consulted. For his alcohol abuse he was monitored for signs of withdrawal, banana bag was given, UDS was negative and he was placed on CIWA, seizure and aspiration precautions. His blood pressure was monitored and he was continued on home norvasc. Patient also was hypokalemic and K was repleted as necessary. Patient clinical course improved he tolerated diet and his pain subsided. He was counseled on alcohol use and agreed to decrease his drinking. He was discharged to home with continuation of antibiotocs for 7 days. Discharge Exam - Head Exam Head Exam: ATRAUMATIC, NORMAL INSPECTION, NORMOCEPHALIC - Eye Exam Eye Exam: EOMI, Normal appearance Pupil Exam: NORMAL ACCOMODATION - ENT Exam ENT Exam: Mucous Membranes Moist - Neck Exam Neck exam: Full Rom - Respiratory Exam Respiratory Exam: NORMAL BREATHING PATTERN - Cardiovascular Exam Cardiovascular Exam: REGULAR RHYTHM - GI/Abdominal Exam GI & Abdominal Exam: Normal Bowel Sounds, Unremarkable - Extremities Exam Extremities exam: full ROM, pedal pulses present - Neurological Exam Neurological exam: Alert, CN II-XII Intact, Oriented x3 - Psychiatric Exam Psychiatric exam: Normal Mood Discharge Plan - Discharge Medications Prescriptions: Ciprofloxacin HCl [Cipro] 500 mg PO BID 7 Days tablet Folic Acid 1 mg PO DAILY #15 tab Metronidazole [Flagyl] 500 mg PO Q8H 7 Days tablet Multivitamin [Daily Value] 1 each PO DAILY #15 tablet Thiamine [Vitamin B-1] 100 mg PO DAILY #15 tab - Follow Up Plan Condition: FAIR Disposition: HOME/ ROUTINE Instructions: Pneumococcal Vaccine for Adults (GEN), Diet for Ulcers and Gastritis (GEN), Cigarette Smoking and Your Health (GEN), Influenza Vaccine (DC) , Clostridium Difficile Infection (GEN) Additional Instructions: Please continue both antibiotics 2 times a day for 7 days. Please follow a soft diet and resume normal food slowly as tolerated. Referrals: Griselda Heard MD [Primary Care Provider] - <Addie Melendez - Last Filed: 11/02/17 12:59> Provider - Provider Date of Admission: 10/31/17 15:59 Attending physician: Addie Melendez MD Primary care physician: Griselda Heard MD Hospital Course - Lab Results Lab Results: Micro Results 11/01/17 06:20 Stool C. difficile Antigen & Toxin A,B (M - Final Most Recent Lab Values WBC 3.9 10^3/ul (4.5-11.0) L 11/01/17 06:50 RBC 4.45 10^6/uL (3.5-6.1) 11/01/17 06:50 Hgb 12.5 g/dL (14.0-18.0) L 11/01/17 06:50 Hct 38.5 % (42.0-52.0) L 11/01/17 06:50 MCV 86.5 fl (80.0-105.0) 11/01/17 06:50 MCH 28.1 pg (25.0-35.0) 11/01/17 06:50 MCHC 32.5 g/dl (31.0-37.0) 11/01/17 06:50 RDW 13.7 % (11.5-14.5) 11/01/17 06:50 Plt Count 191 10^3/uL (120.0-450.0) 11/01/17 06:50 MPV 11.1 fl (7.0-11.0) H 11/01/17 06:50 Gran % 53.3 % (50.0-68.0) 11/01/17 06:50 Lymph % (Auto) 33.5 % (22.0-35.0) 11/01/17 06:50 Spencer % (Auto) 11.6 % (1.0-6.0) H 11/01/17 06:50 Eos % (Auto) 1.3 % (1.5-5.0) L 11/01/17 06:50 Baso % (Auto) 0.3 % (0.0-3.0) 11/01/17 06:50 Gran # 2.07 (1.4-6.5) 11/01/17 06:50 Lymph # 1.3 (1.2-3.4) 11/01/17 06:50 Spencer # 0.5 (0.1-0.6) 11/01/17 06:50 Eos # 0.1 (0.0-0.7) 11/01/17 06:50 Baso # 0.01 K/mm3 (0.0-2.0) 11/01/17 06:50 Sodium 136 mmol/L (132-148) 11/01/17 06:50 Potassium 3.3 mmol/L (3.6-5.0) L 11/01/17 06:50 Chloride 98 mmol/L (98-107) 11/01/17 06:50 Carbon Dioxide 28 mmol/L (21-33) 11/01/17 06:50 Anion Gap 14 (10-20) 11/01/17 06:50 BUN 3 mg/dL (7-21) L 11/01/17 06:50 Creatinine 0.9 mg/dl (0.8-1.5) 11/01/17 06:50 Est GFR ( Amer) > 60 11/01/17 06:50 Est GFR (Non-Af Amer) > 60 11/01/17 06:50 Random Glucose 112 mg/dL (70-110) H 11/01/17 06:50 Calcium 9.6 mg/dL (8.4-10.5) 11/01/17 06:50 Phosphorus 3.3 mg/dL (2.5-4.5) 10/31/17 06:45 Magnesium 2.0 mg/dL (1.7-2.2) 10/31/17 06:45 Total Bilirubin 0.9 mg/dL (0.2-1.3) 11/01/17 06:50 AST 50 U/L (17-59) 11/01/17 06:50 ALT 41 U/L (7-56) 11/01/17 06:50 Alkaline Phosphatase 50 U/L (38-126) 11/01/17 06:50 Total Protein 7.6 g/dL (5.8-8.3) 11/01/17 06:50 Albumin 4.5 g/dL (3.0-4.8) 11/01/17 06:50 Globulin 3.0 gm/dL 11/01/17 06:50 Albumin/Globulin Ratio 1.5 (1.1-1.8) 11/01/17 06:50 Lipase 70 U/L (23-300) 10/30/17 16:45 Urine Color Yellow (YELLOW) 10/30/17 18:17 Urine Appearance Clear (CLEAR) 10/30/17 18:17 Urine pH 7.0 (4.7-8.0) 10/30/17 18:17 Ur Specific Bucks 1.020 (1.005-1.035) 10/30/17 18:17 Urine Protein Negative mg/dL (<30 mg/dL) 10/30/17 18:17 Urine Glucose (UA) Negative mg/dL (NEGATIVE) 10/30/17 18:17 Urine Ketones Trace mg/dL (NEGATIVE) H 10/30/17 18:17 Urine Blood Negative (NEGATIVE) 10/30/17 18:17 Urine Nitrate Negative (NEGATIVE) 10/30/17 18:17 Urine Bilirubin Negative (NEGATIVE) 10/30/17 18:17 Urine Urobilinogen 0.2 E.U./dL (<1 E.U./dL) 10/30/17 18:17 Ur Leukocyte Esterase Negative Georges/uL (NEGATIVE) 10/30/17 18:17 Stool Occult Blood Negative (NEGATIVE) 11/01/17 06:20 Urine Opiates Screen Negative (NEGATIVE) 10/31/17 22:40 Urine Methadone Screen Negative (NEGATIVE) 10/31/17 22:40 Ur Barbiturates Screen Negative (NEGATIVE) 10/31/17 22:40 Ur Phencyclidine Scrn Negative (NEGATIVE) 10/31/17 22:40 Ur Amphetamines Screen Negative (NEGATIVE) 10/31/17 22:40 U Benzodiazepines Scrn Negative (NEGATIVE) 10/31/17 22:40 U Oth Cocaine Metabols Negative (NEGATIVE) 10/31/17 22:40 U Cannabinoids Screen Negative (NEGATIVE) 10/31/17 22:40 Alcohol, Quantitative 74 mg/dL (0-10) H 10/30/17 16:45 Influenza Typ A,B (EIA) Negative for flu a/b (NEGATIVE) 10/30/17 17:18 Attending/Attestation - Attestation I have personally seen and examined this patient.: Yes I have fully participated in the care of the patient.: Yes I have reviewed all pertinent clinical information, including history, physical exam and plan: Yes Notes (Text): 11/02/17 12:54 42 year old male with past medical history of alcohol abuse and substance abuse who presented with LLQ pain. He was found to have colitis on CT scan and started on iv antibiotics. He was seen and evaluated by GI. His symptoms improved and his diet was advanced. He complained of loose stools which also improved. Overall his symptoms improved. He is discharged home on po antibiotics. Follow up with pmd. Counselled on alcohol abstinence. Addie Melendez MD Hospitalist.
== END 2017-11-01 20:54 | disposition home or self-care (01) | DRG 813 ==
LOC: ED 15:54 → ERH 19:16 → 5RSO 22:17 → OBSVTOIN 10-31 15:59
PROVIDERS: ADMIT Hospitalist; ATTEND Internal Medicine
DX: K52.9 Noninfective gastroenteritis and colitis, unspecified (principal); E87.6 Hypokalemia; G62.9 Polyneuropathy, unspecified; F41.9 Anxiety disorder, unspecified; I10 Essential (primary) hypertension; F10.10 Alcohol abuse, uncomplicated; K21.9 Gastro-esophageal reflux disease without esophagitis; F17.210 Nicotine dependence, cigarettes, uncomplicated

== ENCOUNTER 2018-01-18 12:12 | Emergency (ER) | payer MEDICAID ==
[2018-01-18 12:13] VITALS: BMI 20.9
[2018-01-18] MEDS ORDERED: Morphine 4 mg/ml ISec IVP STA (12:50)
[2018-01-18] MEDS ORDERED: Sodium Chloride 0.9% 1,000 ML IV STA (12:50)
--- NOTE | 2018-01-18 12:54 | ED PDOC ---
Arrival/HPI - General Chief Complaint: Abdominal Pain Time Seen by Provider: 01/18/18 12:50 Historian: Patient - History of Present Illness Narrative History of Present Illness (Text): 01/18/18 12:51 pt arrived to ED with sudden onset of lower abd pain, severe at 20/10, diffuse location; pt also had multiple BM, ? diarrhea, non-bloody; pt states he was incapcitated on the floor as a result of the abd pain and felt his panic attack coming on; + palpitations, CP, + sob; pt states no fever/chills/sweats, no new cp, + nausea, + 1 episode of vomiting, no urinary changes, pt denied rashes/ bleeding; pt denied other complaints; pt denied LOC; pt is here for further eval. pt with similiar pain in the past (dx with colitis) PCP: unknown? hx of colitis pt was suppose to f/u with GI but did not follow thru Time/Duration: Prior to Arrival Symptom Onset: Sudden Symptom Course: Worsening Quality: Tightness, Stabbing, Cramping Severity Level: 10, Severe Activities at Onset: Rest Context: Home Past Medical History - Provider Review Nursing Documentation Reviewed: Yes - Travel History Have you recently traveled outside [place] w/in the past 3 mons?: No - Past History Past History: No Previous - Infectious Disease Hx of Infectious Diseases: None - Tetanus Immunization Tetanus Immunization: Unknown - Past Medical History Past Medical History: No Previous - Cardiac Hx Hypertension: Yes - Pulmonary Hx Respiratory Disorders: No - Neurological Hx Neurological Disorder: Yes Hx Dizziness: Yes Other/Comment: neuropathy - HEENT Hx HEENT Disorder: No - Renal Hx Renal Disorder: No - Endocrine/Metabolic Hx Endocrine Disorders: No - Hematological/Oncological Hx Blood Disorders: No - Integumentary Hx Dermatological Disorder: No - Musculoskeletal/Rheumatological Hx Musculoskeletal Disorders: Yes (RIGHT FOOT SURGERY WITH RODS AND SCREWS, RIGHT ANKLE FX.) - Gastrointestinal Hx Gastrointestinal Disorders: Yes Hx Gastroesophageal Reflux: Yes - Genitourinary/Gynecological Hx Genitourinary Disorders: No - Psychiatric Hx Psychophysiologic Disorder: Yes Hx Anxiety: Yes Hx Depression: Yes Hx Substance Use: Yes (marijuna ,cocaine) Other/Comment: ETOH, substance abuse - Past Surgical History Past Surgical History: Non-Contributing - Surgical History Hx Musculoskeletal Surgery: Yes (R foot sx with rods/screws placed) Hx Orthopedic Surgery: Yes - Anesthesia Hx Anesthesia: Yes Hx Anesthesia Reactions: No Hx Malignant Hyperthermia: No - Suicidal Assessment Feels Threatened In Home Enviroment: No Family/Social History - Physician Review Nursing Documentation Reviewed: Yes Family/Social History: No Known Family HX Smoking Status: Current Some Days Smoker Hx Alcohol Use: Yes Hx Substance Use: Yes (marijuna ,cocaine) Substance used: marijuana & cocaine Hx Substance Use Treatment: No Allergies/Home Meds Allergies/Adverse Reactions: Allergies No Known Allergies Allergy (Verified 01/18/18 12:19) Review of Systems - Review of Systems Constitutional: Fatigue Eyes: Normal ENT: Normal Respiratory: Normal Cardiovascular: Chest Pain, Palpitations Gastrointestinal: Abdominal Pain, Nausea, Vomiting Genitourinary Male: Normal Musculoskeletal: Normal Skin: Normal Neurological: Normal Endocrine: Normal Hemo/Lymphatic: Normal Psychiatric: Anxiety Physical Exam Vital Signs Reviewed: Yes Vital Signs Temp Pulse Resp BP Pulse Ox 01/18/18 13:10 98.0 F 80 18 106/68 96 Temperature: Afebrile Blood Pressure: Normal Pulse: Regular Respiratory Rate: Normal Appearance: Positive for: Well-Appearing, Non-Toxic, Uncomfortable, Other ( resting in bed, alert/awake, GCS = 15, oriented x 3, mild-moderate distress due to pain, uncomfortable, cooperative) Pain Distress: Moderate Mental Status: Positive for: Alert and Oriented X 3 - Systems Exam Head: Present: Atraumatic, Normocephalic Pupils: Present: PERRL, Other (wearing eye glasses, no nysatgmus, no photophobia , sclera anicteric) Extroacular Muscles: Present: EOMI Conjunctiva: Present: Normal Ears: Present: Normal Mouth: Present: Dry, Normal Teeth, Other (no drooling/stridor, no exudate/ lesions, uvula/tongue are midline; intact dentitions) Pharnyx: Present: Normal Nose (External): Present: Atraumatic Nose (Internal): Present: Normal Inspection Neck: Present: Normal Range of Motion, Trachea Midline, Other (no nuchal rigidity). No: Meningeal Signs, MIDLINE TENDERNESS Respiratory/Chest: Present: Clear to Auscultation, Good Air Exchange, Other ( CTA b/l, no w/r/r, no accessory muscle use noted). No: Respiratory Distress, Accessory Muscle Use Cardiovascular: Present: Regular Rate and Rhythm, Normal S1, S2. No: Murmurs Abdomen: Present: Tenderness, Normal Bowel Sounds, Other (diffuse lower abd pain , no pizano's sign, no mcburney's point tenderness, well nourished male, no guarding/rigidity/masses) Back: Present: Normal Inspection. No: CVA Tenderness, Midline Tenderness Upper Extremity: Present: Normal Inspection, Normal ROM, NORMAL PULSES, Neurovascularly Intact Lower Extremity: Present: Normal Inspection, NORMAL PULSES, Normal ROM, Neurovascularly Intact, Other (strength 5/5 grossly intact in all limbs) Neurological: Present: GCS=15, CN II-XII Intact, Speech Normal Skin: Present: Warm, Normal Color, Other (cap refill ~ 1sec, no ulcerations, no petechiae, no rashes) Psychiatric: Present: Alert, Oriented x 3 Medical Decision Making ED Course and Treatment: 01/18/18 12:52 Impression: lower abd pain i have consider all the differential diagnosis regarding pt's chief medical complaints/clinical findings, including but are not limited to: r/o appy, r/o diverticulitis; r/o colitis, r/o infection, r/o perf?, ? pain A/P: abd pain - labs - iv - ct - ua - observe - supportive care 01/18/18 16:21 pt is feeling much improved pt is now hungry pt is requesting a meal pt tolerated po well pt is made aware of his medical results pt is encouraged bland diet at home pt is encouraged fluids pt is encouraged NO smoking/alcohol pt will f/u as directed pt will be discharged home Re-evaluation Time: 16:20 Reassessment Condition: Improved - Lab Interpretations Lab Results: 01/18/18 13:40 01/18/18 13:40 Lab Results 01/18/18 15:28: Urine Color Light yellow, Urine Appearance Clear, Urine pH 6.0, Ur Specific Eddy 1.010, Urine Protein Negative, Urine Glucose (UA) Negative, Urine Ketones Negative, Urine Blood Negative, Urine Nitrate Negative, Urine Bilirubin Negative, Urine Urobilinogen 0.2, Ur Leukocyte Esterase Negative 01/18/18 13:40: Alcohol, Quantitative 266 H 01/18/18 13:40: pO2 79 H, VBG pH 7.35, VBG pCO2 49.0, VBG HCO3 27.1, VBG Total CO2 28.6 H, VBG O2 Sat (Calc) 96.6 H, VBG Base Excess 0.8, VBG Potassium 3.9, Sodium 142.0, Chloride 107.0, Glucose 102, Lactate 2.5 H, FiO2 21.0, Venous Blood Potassium 3.9 01/18/18 13:40: Sodium 145, Chloride 107, Potassium 4.0, Carbon Dioxide 26, Anion Gap 17, BUN 16, Creatinine 1.1, Est GFR ( Amer) > 60, Est GFR (Non- Af Amer) > 60, Random Glucose 106, Calcium 9.1, Total Bilirubin 0.1 L, AST 54, ALT 65 H, Alkaline Phosphatase 43, Total Protein 7.3, Albumin 4.2, Globulin 3.1 , Albumin/Globulin Ratio 1.3, Lipase 139 01/18/18 13:40: WBC 5.7 D, RBC 4.40, Hgb 12.4 L, Hct 37.4 L, MCV 85.0, MCH 28.2 , MCHC 33.2, RDW 14.4, Plt Count 192, MPV 10.3, Gran % 69.1 H, Lymph % (Auto) 26.1, Edwards % (Auto) 4.6, Eos % (Auto) 0.0 L, Baso % (Auto) 0.2, Gran # 3.92, Lymph # (Auto) 1.5, Edwards # (Auto) 0.3, Eos # (Auto) 0.0, Baso # (Auto) 0.01 I have reviewed the lab results: Yes Interpretation: Abnormal lab values (elevated ETOH) - RAD Interpretation Narrative RAD Interpretations (Text): 01/18/18 16:21 PROCEDURE: CT Abdomen and Pelvis with contrast HISTORY: hx of colitis, with severe lower abd pain COMPARISON: Contrast abdomen and pelvis CT 10/30/2017. TECHNIQUE: Following oral and intravenous contrast administration, a CT examination of the abdomen and pelvis performed from the domes of the diaphragms to the symphysis pubis with reformatted datasets provided not only axial but also sagittal and coronal series. Contrast dose: Omnipaque 240, 100 cc Radiation dose: Total exam DLP = 273.81 mGy-cm. This CT exam was performed using one or more of the following dose reduction techniques: Automated exposure control, adjustment of the mA and/or kV according to patient size, and/or use of iterative reconstruction technique. FINDINGS: LOWER THORAX: Unremarkable. LIVER: Hepatic steatosis reiterated. A tiny sub cm lucency is seen at the right lobe liver too small to characterize, stable. Remainder of liver appears unremarkable. GALLBLADDER AND BILE DUCTS: Unremarkable. PANCREAS: Unremarkable. No gross lesion or ductal dilatation. SPLEEN: Unremarkable. ADRENALS: Unremarkable. No mass. KIDNEYS AND URETERS: Unremarkable. No hydronephrosis. No solid mass. VASCULATURE: Unremarkable. No aortic aneurysm. BOWEL: No bowel obstruction is appreciated however, subtle thickening of the colon is appreciated essentially throughout the entire colon. The terminal ileum is collapsed and poorly evaluated much of the colon is collapsed as well limiting the evaluation. Consider recurrent or persistent mild colitis of infectious or inflammatory causes. Ischemia unlikely given normal enhancement pattern in the abdominal aorta, celiac axis and superior mesenteric arteries. Neoplasm unlikely as well. Stomach is collapsed and poorly evaluated. APPENDIX: Normal appendix. PERITONEUM: Unremarkable. No free fluid. No free air. LYMPH NODES: Unremarkable. No enlarged lymph nodes. BLADDER: Unremarkable. REPRODUCTIVE: Unremarkable. BONES: No acute fracture. OTHER FINDINGS: None. IMPRESSION: Findings suspicious for persistent or recurrent limited perry colitis. Clinically correlate further. No ascites, abscess or free intrarenal gas. Fatty liver again evident with stable tiny lucency at the right lobe. Radiology Orders: 01/18/18 12:50 ABD PELVIS PO & IV CONTRAST [CT] Stat Leather Coater: Radiologist - EKG Interpretation EKG Interpretation (Text): 01/18/18 14:37 NSR at 80 bpm, normal axis, no ectopy, inverted T in leads III, voltage criteria LVH, non-specific st changes, ABNL EKG; unchanged compare with old ekg 07/2017 Interpreted by ED Physician: Yes Type: 12 lead EKG Comparison: Similar to previous EKG - Medication Orders Current Medication Orders: Ciprofloxacin (Cipro) 500 mg PO ONCE STA PRN Reason: Protocol Stop: 01/18/18 16:18 Discontinued Medications Famotidine (Pepcid) 20 mg IVP STAT STA Stop: 01/18/18 12:51 Last Admin: 01/18/18 13:45 Dose: 20 mg IVP Administration Document 01/18/18 13:45 GMD (Rec: 01/18/18 13:45 GMD [id number]) Charges for Administration # of IVP Administrations 1 Sodium Chloride (Sodium Chloride 0.9%) 1,000 mls @ 1,000 mls/hr IV .Q1H STA Stop: 01/18/18 13:49 Last Admin: 01/18/18 13:45 Dose: 1,000 mls/hr eMAR Start Stop Document 01/18/18 13:45 GMD (Rec: 01/18/18 13:46 GMD [id number]) Intravenous Solution Start Date 01/18/18 Start Time 13:46 End Date 01/18/18 End time 14:46 Total Infusion Time 60 Metoclopramide HCl (Reglan) 10 mg IVP STAT STA Stop: 01/18/18 12:51 Last Admin: 01/18/18 13:45 Dose: 10 mg IVP Administration Document 01/18/18 13:45 GMD (Rec: 01/18/18 13:45 GMD [id number]) Charges for Administration # of IVP Administrations 1 Morphine Sulfate (Morphine) 4 mg IVP STAT STA Stop: 01/18/18 12:51 Last Admin: 01/18/18 13:45 Dose: 4 mg MAR Pain Assessment Document 01/18/18 13:45 GMD (Rec: 01/18/18 13:45 GMD [id number]) Pain Reassessment Is this a pain reassessment? No Presence of Pain Presence of Pain Yes IVP Administration Document 01/18/18 13:45 GMD (Rec: 01/18/18 13:45 GMD [id number]) Charges for Administration # of IVP Administrations 1 Disposition/Present on Arrival - Present on Arrival Any Indicators Present on Arrival: No History of DVT/PE: No History of Uncontrolled Diabetes: No Urinary Catheter: No History of Decub. Ulcer: No History Surgical Site Infection Following: Orthopedic Procedures - Disposition Have Diagnosis and Disposition been Completed?: Yes Diagnosis: Abdominal pain, Alcohol intoxication, Colitis Disposition: HOME/ ROUTINE Disposition Time: 16:22 Patient Plan: Discharge Patient Problems: Current Active Problems Problem Status Onset Abdominal pain Acute Alcohol intoxication Acute Condition: STABLE Discharge Instructions (ExitCare): Alcohol Abuse and Alcoholism (DC), Diarrhea in Adolescents and Adults Print Language: MARSHALLESE Additional Instructions: Make sure to see your doctor in 1-2 days DRINK PLENTY OF FLUIDS take your medications as prescribed DONT DRINK alcohol, if you smoke, dont smoke BLAND DIET IS ENCOURAGED RETURN TO ED IF worse pain, cant breath, persistent vomiting, high fever >101- 102 for hours, altered behavior, slurr speech, facial changes, focal weakness ( arm/leg or both), unable to urinate, heavy/persistent bleeding, passing out, chest pain, or other medical emergencies Prescriptions: Ciprofloxacin [Cipro] 500 mg PO BID #19 tab Ibuprofen [Motrin] 400 mg PO TID PRN #30 tab PRN Reason: Pain, Mild (1-3) Metronidazole [Flagyl] 500 mg PO TID #29 tablet Referrals: [facility] [Outside] - Follow up with primary Buddy Rodriguez DO [Staff Provider] - Follow up with primary Forms: [employer] (Thai)
[2018-01-18] MEDS ORDERED: Iohexol 240 (50 ml) ONE (12:57)
[2018-01-18 13:11] VITALS: RESP 18; TEMP 98
[2018-01-18 13:54] LABS: BASO # 0.01 K/mm3 (0.0-2.0); BASO % 0.2 % (0.0-3.0); GRAN # 3.92 (1.4-6.5); GRAN % 69.1 % (50.0-68.0); HEMOGLOBIN 12.4 g/dL (14.0-18.0); LYMPH # 1.5 (1.2-3.4); LYMPH % 26.1 % (22.0-35.0); MEAN CORPUSCULAR HEMOGLOBIN 28.2 pg (25.0-35.0); MEAN CORPUSCULAR HGB CONC 33.2 g/dl (31.0-37.0); MEAN PLATELET VOLUME 10.3 fl (7.0-11.0); MONO # 0.3 (0.1-0.6); MONO % 4.6 % (1.0-6.0); RBC 4.4 10^6/uL (3.5-6.1); RED CELL DISTRIBUTION WIDTH 14.4 % (11.5-14.5); WHITE BLOOD COUNT 5.7 10^3/ul (4.5-11.0)
[2018-01-18 14:08] LABS: ALB/GLOB RATIO 1.3 (1.1-1.8); ALBUMIN 4.2 g/dL (3.0-4.8); ALT/SGPT 65 U/L (7-56); AST/SGOT 54 U/L (17-59); BLOOD UREA NITROGEN 16 mg/dL (7-21); CALCIUM 9.1 mg/dL (8.4-10.5); GFR AFRICAN-AMERICAN > 60; GFR NON-AFRICAN AMERICAN > 60; LIPASE 139 U/L (23-300); VENOUS BLOOD GAS BASE EXCESS 0.8 mmol/L (0.0-2.0); VENOUS BLOOD GAS PO2 79 mm/Hg (30-55); VENOUS BLOOD PH 7.35 (7.32-7.43)
[2018-01-18] MEDS ORDERED: Iohexol 350 MG/100 ML VIAL ONE (15:17)
[2018-01-18 15:31] LABS: URINE BILIRUBIN NEGATIVE (NEGATIVE); URINE BLOOD NEGATIVE (NEGATIVE); URINE GLUCOSE (UA) NEGATIVE (NEGATIVE); URINE LEUKOCYTE ESTERASE NEGATIVE Leu/uL (NEGATIVE); URINE PROTEIN NEGATIVE mg/dL (<30 mg/dL); URINE UROBILINOGEN 0.2 E.U./dL (<1 E.U./dL)
[2018-01-18 15:34] LABS: URINE APPEARANCE CLEAR (CLEAR); URINE COLOR LIGHT YELLOW (YELLOW)
--- NOTE | 2018-01-18 16:00 | CT ---
PROCEDURE: CT Abdomen and Pelvis with contrast HISTORY: hx of colitis, with severe lower abd pain COMPARISON: Contrast abdomen and pelvis CT 10/30/2017. TECHNIQUE: Following oral and intravenous contrast administration, a CT examination of the abdomen and pelvis performed from the domes of the diaphragms to the symphysis pubis with reformatted datasets provided not only axial but also sagittal and coronal series. Contrast dose: Omnipaque 240, 100 cc Radiation dose: Total exam DLP = 273.81 mGy-cm. This CT exam was performed using one or more of the following dose reduction techniques: Automated exposure control, adjustment of the mA and/or kV according to patient size, and/or use of iterative reconstruction technique. FINDINGS: LOWER THORAX: Unremarkable. LIVER: Hepatic steatosis reiterated. A tiny sub cm lucency is seen at the right lobe liver too small to characterize, stable. Remainder of liver appears unremarkable. GALLBLADDER AND BILE DUCTS: Unremarkable. PANCREAS: Unremarkable. No gross lesion or ductal dilatation. SPLEEN: Unremarkable. ADRENALS: Unremarkable. No mass. KIDNEYS AND URETERS: Unremarkable. No hydronephrosis. No solid mass. VASCULATURE: Unremarkable. No aortic aneurysm. BOWEL: No bowel obstruction is appreciated however, subtle thickening of the colon is appreciated essentially throughout the entire colon. The terminal ileum is collapsed and poorly evaluated much of the colon is collapsed as well limiting the evaluation. Consider recurrent or persistent mild colitis of infectious or inflammatory causes. Ischemia unlikely given normal enhancement pattern in the abdominal aorta, celiac axis and superior mesenteric arteries. Neoplasm unlikely as well. Stomach is collapsed and poorly evaluated. APPENDIX: Normal appendix. PERITONEUM: Unremarkable. No free fluid. No free air. LYMPH NODES: Unremarkable. No enlarged lymph nodes. BLADDER: Unremarkable. REPRODUCTIVE: Unremarkable. BONES: No acute fracture. OTHER FINDINGS: None. IMPRESSION: Findings suspicious for persistent or recurrent limited perry colitis. Clinically correlate further. No ascites, abscess or free intrarenal gas. Fatty liver again evident with stable tiny lucency at the right lobe.
[2018-01-18 16:47] VITALS: BP 110/70; PULSE 78; O2SAT 98
--- NOTE | 2018-01-18 23:28 | CARD ---
APPROVED REPORT EKG Measurement Heart [id number] <Conclusion> Normal sinus rhythm Minimal voltage criteria for LVH, may be normal variant Nonspecific T wave abnormality Abnormal ECG
== END 2018-01-18 16:55 | disposition home or self-care (01) ==
LOC: ED 12:12
DX: K52.9 Noninfective gastroenteritis and colitis, unspecified (principal); F10.129 Alcohol abuse with intoxication, unspecified; Y90.8 Blood alcohol level of 240 mg/100 ml or more; I10 Essential (primary) hypertension; F17.210 Nicotine dependence, cigarettes, uncomplicated
CPT/HCPCS: 74177; 80053; 80320; 81003; 82803; 83690; 85025; 93005; 96361; 96374; 96375; 99285; J2270; J2765; J7040; Q9966; Q9967

== ENCOUNTER 2018-01-25 14:07 | Observation (INO) | payer MEDICAID ==
[2018-01-25 14:15] VITALS: BMI 21.7
[2018-01-25] MEDS ORDERED: Sodium Chloride 0.9% 1,000 ML IV STA ×2 (14:24→16:28)
[2018-01-25] MEDS ORDERED: Morphine 2 mg/ml ISec IVP STA (15:22)
[2018-01-25] MEDS ORDERED: Morphine 4 mg/ml ISec IVP STA (15:47)
[2018-01-25] MEDS ORDERED: Morphine 4 mg/ml ISec ONE (15:47)
[2018-01-25 15:49] LABS: BASO # 0.02 K/mm3 (0.0-2.0); BASO % 0.4 % (0.0-3.0); EOS % 0.2 % (1.5-5.0); GRAN # 2.26 (1.4-6.5); GRAN % 45.9 % (50.0-68.0); HEMOGLOBIN 13.3 g/dL (14.0-18.0); LYMPH % 40.9 % (22.0-35.0); MEAN CELL VOLUME 83.9 fl (80.0-105.0); MEAN CORPUSCULAR HEMOGLOBIN 28.9 pg (25.0-35.0); MEAN CORPUSCULAR HGB CONC 34.4 g/dl (31.0-37.0); MEAN PLATELET VOLUME 10.3 fl (7.0-11.0); MONO # 0.6 (0.1-0.6); MONO % 12.6 % (1.0-6.0); RBC 4.61 10^6/uL (3.5-6.1); RED CELL DISTRIBUTION WIDTH 14.5 % (11.5-14.5); WHITE BLOOD COUNT 4.9 10^3/ul (4.5-11.0)
[2018-01-25 15:51] LABS: URINE BILIRUBIN NEGATIVE (NEGATIVE); URINE BLOOD NEGATIVE (NEGATIVE); URINE GLUCOSE (UA) NEGATIVE (NEGATIVE); URINE LEUKOCYTE ESTERASE NEGATIVE Leu/uL (NEGATIVE); URINE PROTEIN 30 mg/dL (<30 mg/dL); URINE UROBILINOGEN 0.2 E.U./dL (<1 E.U./dL)
[2018-01-25 15:52] LABS: URINE APPEARANCE CLEAR (CLEAR); URINE COLOR STRAW (YELLOW)
[2018-01-25 15:58] LABS: ALB/GLOB RATIO 1.3 (1.1-1.8); ALBUMIN 4.4 g/dL (3.0-4.8); ALT/SGPT 65 U/L (7-56); AMYLASE 67 U/L (35-125); AST/SGOT 64 U/L (17-59); BLOOD UREA NITROGEN 20 mg/dL (7-21); CALCIUM 9.7 mg/dL (8.4-10.5); GFR AFRICAN-AMERICAN > 60; GFR NON-AFRICAN AMERICAN > 60; LIPASE 67 U/L (23-300)
[2018-01-25 16:06] LABS: TROPONIN I < 0.01 ng/mL
[2018-01-25 16:08] LABS: URINE RBC 0 - 2 /hpf (0-2)
[2018-01-25 16:09] LABS: URINE BACTERIA FEW (NEG); URINE WBC 0 - 2 /hpf (0-6)
[2018-01-25 16:14] LABS: BARBITURATES, UR NEGATIVE (NEGATIVE); BENZODIAZEPINES, UR NEGATIVE (NEGATIVE); OPIATES, UR NEGATIVE (NEGATIVE); PHENCYCLIDINE, UR NEGATIVE (NEGATIVE)
[2018-01-25] MEDS ORDERED: Piperacillin/Tazobact 3.375 gm 100 ML IVPB STA (16:38)
[2018-01-25] MEDS ORDERED: Multivitamin (MVI) 10 ML, Thiamine 100 MG, Folic Acid 1 MG in Sodium Chloride 0.9% 1,00... IV ONE ×2 (17:00)
[2018-01-25 17:55] LABS: BASO # 0.03 K/mm3 (0.0-2.0); BASO % 0.4 % (0.0-3.0); EOS % 0.1 % (1.5-5.0); GRAN # 4.97 (1.4-6.5); GRAN % 64.5 % (50.0-68.0); HEMOGLOBIN 12.7 g/dL (14.0-18.0); LYMPH % 26.2 % (22.0-35.0); MEAN CELL VOLUME 83.4 fl (80.0-105.0); MEAN CORPUSCULAR HEMOGLOBIN 28.8 pg (25.0-35.0); MEAN CORPUSCULAR HGB CONC 34.5 g/dl (31.0-37.0); MEAN PLATELET VOLUME 10.3 fl (7.0-11.0); MONO # 0.7 (0.1-0.6); MONO % 8.8 % (1.0-6.0); RBC 4.41 10^6/uL (3.5-6.1); RED CELL DISTRIBUTION WIDTH 14.4 % (11.5-14.5); WHITE BLOOD COUNT 7.7 10^3/ul (4.5-11.0)
[2018-01-25] MEDS ORDERED: Morphine 2 mg/ml ISec IVP PRN (17:56)
[2018-01-25] MEDS ORDERED: Magnesium Sulfate 2 GM in Sodium Chloride 0.9% 100 ML IVPB ONE (17:56)
[2018-01-25] MEDS ORDERED: Morphine 4 mg/ml ISec IVP PRN (18:03)
--- NOTE | 2018-01-25 18:09 | ED PDOC ---
Arrival/HPI - General Chief Complaint: Abdominal Pain Time Seen by Provider: 01/25/18 14:13 Historian: Patient - History of Present Illness Narrative History of Present Illness (Text): 01/25/18 18:05 Piyush Craig is a 42 year old male, with no significant past medical history, presents to the Emergency department complaining of multiple episodes of vomiting and diarrhea. Patient was seen last week for similar symptoms and was diagnosed with colitis. Pt was discharged with antibiotics. Patient has been taking antibiotics but has continued to drink alcohol. Patient denies any fevers , chills, chest pain, shortness of breath, abdominal pain, back pain, neck pain , headache, dizziness, or any other complaint. Time/Duration: < month Symptom Onset: Gradual Symptom Course: Unchanged Activities at Onset: Light Context: Home Past Medical History - Provider Review Nursing Documentation Reviewed: Yes - Past History Past History: No Previous - Infectious Disease Hx of Infectious Diseases: None - Tetanus Immunization Tetanus Immunization: Unknown - Past Medical History Past Medical History: No Previous - Cardiac Hx Cardiac Disorders: Yes Hx Hypertension: Yes - Pulmonary Hx Respiratory Disorders: No - Neurological Hx Neurological Disorder: Yes Hx Dizziness: Yes Other/Comment: neuropathy - HEENT Hx HEENT Disorder: No - Renal Hx Renal Disorder: No - Endocrine/Metabolic Hx Endocrine Disorders: No - Hematological/Oncological Hx Blood Disorders: No - Integumentary Hx Dermatological Disorder: No - Musculoskeletal/Rheumatological Hx Musculoskeletal Disorders: Yes (RIGHT FOOT SURGERY WITH RODS AND SCREWS, RIGHT ANKLE FX.) Hx Fractures: Yes - Gastrointestinal Hx Gastrointestinal Disorders: Yes Hx Gastroesophageal Reflux: Yes - Genitourinary/Gynecological Hx Genitourinary Disorders: No - Psychiatric Hx Psychophysiologic Disorder: Yes Hx Anxiety: Yes Hx Depression: Yes Hx Substance Use: Yes (marijuna ,cocaine) Other/Comment: ETOH, substance abuse - Past Surgical History Past Surgical History: Non-Contributing - Surgical History Hx Musculoskeletal Surgery: Yes (R foot sx with rods/screws placed) Hx Orthopedic Surgery: Yes - Anesthesia Hx Anesthesia: Yes Hx Anesthesia Reactions: No Hx Malignant Hyperthermia: No - Suicidal Assessment Feels Threatened In Home Enviroment: No Family/Social History - Physician Review Nursing Documentation Reviewed: Yes Family/Social History: Unknown Family HX Smoking Status: Current Some Days Smoker Hx Alcohol Use: Yes Hx Substance Use: Yes (marijuna ,cocaine) Substance used: marijuana & cocaine Hx Substance Use Treatment: No Allergies/Home Meds Allergies/Adverse Reactions: Allergies No Known Allergies Allergy (Verified 01/18/18 12:19) Review of Systems - Physician Review All systems were reviewed & negative as marked: Yes - Review of Systems Constitutional: Normal Eyes: Normal ENT: Normal, Epistaxis Respiratory: Normal. absent: SOB, Cough Cardiovascular: Normal. absent: Chest Pain Gastrointestinal: Diarrhea, Vomiting. absent: Abdominal Pain Genitourinary Male: Normal. absent: Dysuria, Frequency Musculoskeletal: Normal. absent: Back Pain, Neck Pain Skin: Normal. absent: Rash Neurological: Normal. absent: Headache, Dizziness Endocrine: Normal Hemo/Lymphatic: Normal Psychiatric: Normal Physical Exam Vital Signs Reviewed: Yes Vital Signs Temp Pulse Resp BP Pulse Ox 01/25/18 18:03 89 18 141/89 98 01/25/18 16:36 97 H 18 145/85 98 01/25/18 14:14 98.4 F 101 H 18 135/90 98 Temperature: Afebrile Blood Pressure: Normal Pulse: Tachycardic Respiratory Rate: Normal Appearance: Positive for: Well-Appearing, Non-Toxic, Comfortable Pain Distress: None Mental Status: Positive for: Alert and Oriented X 3 - Systems Exam Head: Present: Atraumatic, Normocephalic Pupils: Present: PERRL Extroacular Muscles: Present: EOMI Conjunctiva: Present: Normal Mouth: No: Moist Mucous Membranes (slightly dry mucous membranes) Neck: Present: Normal Range of Motion Respiratory/Chest: Present: Clear to Auscultation, Good Air Exchange. No: Respiratory Distress, Accessory Muscle Use Cardiovascular: Present: Regular Rate and Rhythm, Normal S1, S2. No: Murmurs Abdomen: Present: Normal Bowel Sounds. No: Tenderness, Distention, Peritoneal Signs Back: Present: Normal Inspection Upper Extremity: Present: Normal Inspection. No: Cyanosis, Edema Lower Extremity: Present: Normal Inspection. No: Edema Neurological: Present: GCS=15, CN II-XII Intact, Speech Normal Skin: Present: Warm, Dry, Normal Color. No: Rashes Psychiatric: Present: Alert, Oriented x 3, Normal Insight, Normal Concentration Medical Decision Making ED Course and Treatment: 01/25/18 18:11 Impression: 42 year old male presents to the Emergency department complaining of multiple vomiting and diarrhea episodes. Plan: -- Arterial blood gas -- EKG -- Labs -- Magnesium -- Phosphorous -- Cardiac Enzymes -- Piperacillin -- Urine Culture -- Sodium Chloride -- Pepcid -- Ativan -- Magnesium Sulfate -- Morphine -- Lipid Panel -- Thyroid Stimulation Hormone -- Fecal Occult, blood routine -- Influenza A B routine -- Blood, stool routine -- Reassess and disposition Progress Notes: 01/25/18 18:45 - Lab Interpretations Lab Results: 01/25/18 15:30 01/25/18 15:30 Lab Results 01/25/18 15:30: Urine Opiates Screen Negative, Urine Methadone Screen Negative, Ur Barbiturates Screen Negative, Ur Phencyclidine Scrn Negative, Ur Amphetamines Screen Negative, U Benzodiazepines Scrn Negative, U Oth Cocaine Metabols Positive H, U Cannabinoids Screen Negative 01/25/18 15:30: Alcohol, Quantitative 66 H 01/25/18 15:30: Sodium 138, Potassium 3.9, Chloride 101, Carbon Dioxide 20 L, Anion Gap 21 H, BUN 20, Creatinine 1.2, Est GFR ( Amer) > 60, Est GFR ( Non-Af Amer) > 60, Random Glucose 74, Calcium 9.7, Total Bilirubin 0.5, AST 64 H , ALT 65 H, Alkaline Phosphatase 64, Lactate Dehydrogenase 551, Total Creatine Kinase 189, Troponin I < 0.01, Total Protein 7.8, Albumin 4.4, Globulin 3.4, Albumin/Globulin Ratio 1.3, Amylase 67, Lipase 67 01/25/18 15:30: Urine Color Straw, Urine Appearance Clear, Urine pH 6.0, Ur Specific Cantil 1.025, Urine Protein 30 H, Urine Glucose (UA) Negative, Urine Ketones Negative, Urine Blood Negative, Urine Nitrate Negative, Urine Bilirubin Negative, Urine Urobilinogen 0.2, Ur Leukocyte Esterase Negative, Urine RBC 0 - 2, Urine WBC 0 - 2, Ur Epithelial Cells 1 - 3, Urine Bacteria Few 01/25/18 15:30: WBC 4.9, RBC 4.61, Hgb 13.3 L, Hct 38.7 L, MCV 83.9, MCH 28.9, MCHC 34.4, RDW 14.5, Plt Count 226, MPV 10.3, Gran % 45.9 L, Lymph % (Auto) 40.9 H, Piute % (Auto) 12.6 H, Eos % (Auto) 0.2 L, Baso % (Auto) 0.4, Gran # 2.26 , Lymph # (Auto) 2.0, Piute # (Auto) 0.6, Eos # (Auto) 0.0, Baso # (Auto) 0.02 01/25/18 15:00: Phosphorus 4.6 H, Magnesium 1.6 L - Medication Orders Current Medication Orders: Heparin Sodium (Porcine) (Heparin) 5,000 units SC Q12 ALEXANDRA PRN Reason: Protocol Multivitamins/Vitamin C 10 ml/Thiamine HCl 100 mg/ Folic Acid 1 mg/ Sodium Chloride 1,011.2 mls @ 100 mls/hr IV .Q10H7M ONE Stop: 01/26/18 03:06 Last Admin: 01/25/18 19:14 Dose: 100 mls/hr eMAR Start Stop Document 01/25/18 19:14 ARNEL (Rec: 01/25/18 19:14 ARNEL [id number]) Intravenous Solution Start Date 01/25/18 Start Time 19:14 Cefepime HCl (Maxipime 1gm) 1 gm in 100 mls @ 100 mls/hr IVPB Q8 ALEXANDRA PRN Reason: Protocol Stop: 02/03/18 22:01 Metronidazole (Flagyl) 250 mg in 50 mls @ 100 mls/hr IVPB Q8 ALEXANDRA PRN Reason: Protocol Stop: 02/03/18 22:01 Lorazepam (Ativan) 1 mg IVP Q6H ALEXANDRA PRN Reason: Protocol Last Admin: 01/25/18 17:38 Dose: 1 mg IVP Administration Document 01/25/18 17:38 ARNEL (Rec: 01/25/18 17:38 [facility] [id number]) Charges for Administration # of IVP Administrations 1 Lorazepam (Ativan) 2 mg IVP Q2H PRN; Protocol PRN Reason: Anxiety Morphine Sulfate (Morphine) 1 mg IVP Q4H PRN PRN Reason: Pain, severe (8-10) Ondansetron HCl (Zofran Inj) 4 mg IVP Q8H PRN PRN Reason: Nausea/Vomiting Pantoprazole Sodium (Protonix Ec Tab) 40 mg PO [facility] Discontinued Medications Famotidine (Pepcid) 20 mg IVP STAT STA Stop: 01/25/18 14:25 Last Admin: 01/25/18 15:22 Dose: 20 mg IVP Administration Document 01/25/18 15:22 ARNEL (Rec: 01/25/18 15:22 ARNEL [id number]) Charges for Administration # of IVP Administrations 1 Sodium Chloride (Sodium Chloride 0.9%) 1,000 mls @ 1,000 mls/hr IV .Q1H STA Stop: 01/25/18 15:23 Last Admin: 01/25/18 15:20 Dose: 1,000 mls/hr eMAR Start Stop Document 01/25/18 15:20 ARNEL (Rec: 01/25/18 15:20 ARNEL [id number]) Intravenous Solution Start Date 01/25/18 Start Time 15:20 End Date 01/25/18 End time 16:20 Total Infusion Time 60 Sodium Chloride (Sodium Chloride 0.9%) 1,000 mls @ 999 mls/hr IV .Q1H1M STA Stop: 01/25/18 17:28 Last Admin: 01/25/18 16:31 Dose: 999 mls/hr eMAR Start Stop Document 01/25/18 16:31 ARNEL (Rec: 01/25/18 16:31 ARNEL [id number]) Intravenous Solution Start Date 01/25/18 Start Time 16:31 End Date 01/25/18 End time 17:31 Total Infusion Time 60 Piperacillin Sod/Tazobactam Sod (Zosyn 3.375 In Ns 100ml) 100 mls @ 200 mls/hr IVPB STAT STA PRN Reason: Protocol Stop: 01/25/18 17:07 Last Admin: 01/25/18 17:37 Dose: 200 mls/hr eMAR Start Stop Document 01/25/18 17:37 ARNEL (Rec: 01/25/18 17:38 ARNEL [id number]) Intravenous Solution Start Date 01/25/18 Start Time 17:38 End Date 01/25/18 End time 18:08 Total Infusion Time 30 Multivitamins/Vitamin C 10 ml/Thiamine HCl 100 mg/ Folic Acid 1 mg/ Sodium Chloride 1,011.2 mls @ 1,000 mls/hr IV .Q1H1M ONE Stop: 01/25/18 18:00 Last Admin: 01/25/18 18:04 Dose: 1,000 mls/hr eMAR Start Stop Document 01/25/18 18:04 ARNEL (Rec: 01/25/18 18:05 ARNEL [id number]) Intravenous Solution Start Date 01/25/18 Start Time 18:04 End Date 01/25/18 End time 19:04 Total Infusion Time 60 Magnesium Sulfate 2 gm/ Sodium (Chloride) 104 mls @ 102 mls/hr IVPB ONCE ONE Stop: 01/25/18 18:57 Last Admin: 01/25/18 18:10 Dose: 102 mls/hr eMAR Start Stop Document 01/25/18 18:10 ARNEL (Rec: 01/25/18 18:10 ARNEL [id number]) Intravenous Solution Start Date 01/25/18 Start Time 18:10 End Date 01/25/18 End time 19:10 Total Infusion Time 60 Morphine Sulfate (Morphine) 2 mg IVP STAT STA Stop: 01/25/18 15:48 Last Admin: 01/25/18 15:53 Dose: 2 mg MAR Pain Assessment Document 01/25/18 15:53 ARNEL (Rec: 01/25/18 15:54 ARNEL [id number]) Pain Reassessment Is this a pain reassessment? Yes Presence of Pain Presence of Pain Yes Pain Scale Used Pain Scale Used Numeric Description Description Intermittent Intensity of Pain at present 7 IVP Administration Document 01/25/18 15:53 ARNEL (Rec: 01/25/18 15:54 ARNEL [id number]) Charges for Administration # of IVP Administrations 1 Ondansetron HCl (Zofran Inj) 4 mg IVP STAT STA Stop: 01/25/18 14:25 Last Admin: 01/25/18 15:20 Dose: 4 mg IVP Administration Document 01/25/18 15:20 ARNEL (Rec: 01/25/18 15:21 ARNEL [id number]) Charges for Administration # of IVP Administrations 1 - Scribe Statement The provider has reviewed the documentation as recorded by the Scribe Cierra Sosa All medical record entries made by the Scribe were at my direction and personally dictated by me. I have reviewed the chart and agree that the record accurately reflects my personal performance of the history, physical exam, medical decision making, and the department course for this patient. I have also personally directed, reviewed, and agree with the discharge instructions and disposition. Disposition/Present on Arrival - Present on Arrival Any Indicators Present on Arrival: No History of DVT/PE: No History of Uncontrolled Diabetes: No Urinary Catheter: No History of Decub. Ulcer: No History Surgical Site Infection Following: Orthopedic Procedures - Disposition Have Diagnosis and Disposition been Completed?: Yes Diagnosis: Colitis, Nausea vomiting and diarrhea Disposition: HOSPITALIZED Disposition Time: 16:30 Condition: STABLE
--- NOTE | 2018-01-25 18:18 | CP.PCM.HP ---
<Bernard Walters - Last Filed: 01/25/18 18:42> History of Present Illness - History of Present Illness History of Present Illness: Medicine H/P: Dr. Lorenzo Chief Complaint: Nausea and vomiting; Chest pain HPI: 42 year old male with past medical history of alcohol abuse, colitis, hypertension, and anxiety presents with 12 hour duration of intractible nausea and vomiting with mild diarrhea. Patient states that there was no inciting event that led tho the nausea and vomiting, that he was laying in bed and the nausea started. He cannot quantify the number of episodes, but states that the nausea and vomiting is more frequent than the diarrhea. Patient denies any melena, gross red blood per rectum, hematemesis. Patient further denies fevers and chills, and denies having any sick contacts at home. Of note, patient has had several past admissions with similar complaints. He was admitted from 10/30-11/02 with similar complaints, at which time he was discharged on cipro/flagyl. At that time, CT abdomen pelvis showed colonic thickening. He was recently here last week, when CT Abdomen Pelvis also showed colitis. Patient also complains of mild chest pain with shortness of breath. Patient has seen a ophthalmic lens inspector in the past, does not recall the name, but states the ophthalmic lens inspector is at [facility]. Patient had a stress test in 2011 per our records , which showed a normal myocardial perfusion study. Patient's last ECHO was in 2013 which showed mild TR/MR and EF of 52.2%. Patient's last few EKG's have shown Voltage criteria for LVH. Patient states he has never had a catheterization of the heart, a heart attack, or history of arrhythmias. PMD: Dr. David Heard Furnace Combination Analyst: Doctor at [facility] Surgical History: Right Ankle surgery Medical History: Alcohol Abuse, Anxiety, and Colitis Allergies: NKDA Social History: Smokes 4-5 cigarettes/day, drinks daily (fifth of vodka), occasional cocaine Hospitalizations: Recently in October for similar complaints Family History: Denies Home Medications: Reviewed, As per DEC Review of Systems: 12 point ROS obtained and negative except as per HPI Present on Admission - Present on Admission Any Indicators Present on Admission: No Past Patient History - Infectious Disease Hx of Infectious Diseases: None - Tetanus Immunizations Tetanus Immunization: Unknown - Past Medical History & Family History Past Medical History?: Yes - Past Social History Smoking Status: Current Some Days Smoker - CARDIAC Hx Cardiac Disorders: Yes Hx Hypertension: Yes - PULMONARY Hx Respiratory Disorders: No - NEUROLOGICAL Hx Neurological Disorder: Yes Hx Dizziness: Yes Other/Comment: neuropathy - HEENT Hx HEENT Problems: No - RENAL Hx Chronic Kidney Disease: No - ENDOCRINE/METABOLIC Hx Endocrine Disorders: No - HEMATOLOGICAL/ONCOLOGICAL Hx Blood Disorders: No - INTEGUMENTARY Hx Dermatological Problems: No - MUSCULOSKELETAL/RHEUMATOLOGICAL Hx Musculoskeletal Disorders: Yes (RIGHT FOOT SURGERY WITH RODS AND SCREWS, RIGHT ANKLE FX.) Hx Fractures: Yes - GASTROINTESTINAL Hx Gastrointestinal Disorders: Yes Hx Gastroesophageal Reflux: Yes - GENITOURINARY/GYNECOLOGICAL Hx Genitourinary Disorders: No - PSYCHIATRIC Hx Psychophysiologic Disorder: Yes Hx Anxiety: Yes Hx Depression: Yes Hx Substance Use: Yes (marijuna ,cocaine) Other/Comment: ETOH, substance abuse - SURGICAL HISTORY Hx Surgeries: Yes Hx Musculoskeletal Surgery: Yes (R foot sx with rods/screws placed) Hx Orthopedic Surgery: Yes - ANESTHESIA Hx Anesthesia: Yes Hx Anesthesia Reactions: No Hx Malignant Hyperthermia: No Meds Allergies/Adverse Reactions: Allergies Allergy/AdvReac Type Severity Reaction Status Date / Time No Known Allergies Allergy Verified 01/18/18 12:19 Physical Exam - Constitutional Appears: Non-toxic, No Acute Distress - Head Exam Head Exam: ATRAUMATIC, NORMAL INSPECTION, NORMOCEPHALIC - Eye Exam Eye Exam: EOMI, Normal appearance, PERRL Pupil Exam: NORMAL ACCOMODATION, PERRL - ENT Exam ENT Exam: Mucous Membranes Moist, Normal Exam - Neck Exam Neck exam: Positive for: Normal Inspection - Respiratory Exam Respiratory Exam: Clear to Auscultation Bilateral, NORMAL BREATHING PATTERN - Cardiovascular Exam Cardiovascular Exam: REGULAR RHYTHM - GI/Abdominal Exam GI & Abdominal Exam: Normal Bowel Sounds, Soft. absent: Tenderness - Extremities Exam Extremities exam: Positive for: normal inspection - Back Exam Back exam: NORMAL INSPECTION - Neurological Exam Neurological exam: Alert, CN II-XII Intact, Normal Gait, Oriented x3, Reflexes Normal - Psychiatric Exam Psychiatric exam: Normal Affect, Normal Mood - Skin Skin Exam: Dry, Intact, Normal Color, Warm Results - Vital Signs Recent Vital Signs: Last Vital Signs Temp 98.4 F 01/25/18 14:14 Pulse 89 01/25/18 18:03 Resp 18 01/25/18 18:03 BP 141/89 01/25/18 18:03 Pulse Ox 98 01/25/18 18:03 - Labs Result Diagrams: 01/25/18 17:45 01/25/18 15:30 Labs: Laboratory Results - last 24 hr 01/25/18 17:45 WBC 7.7 D RBC 4.41 Hgb 12.7 L Hct 36.8 L MCV 83.4 MCH 28.8 MCHC 34.5 RDW 14.4 Plt Count 206 MPV 10.3 Gran % 64.5 Lymph % (Auto) 26.2 [place] % (Auto) 8.8 H Eos % (Auto) 0.1 L Baso % (Auto) 0.4 Gran # 4.97 Lymph # (Auto) 2.0 [place] # (Auto) 0.7 H Eos # (Auto) 0.0 Baso # (Auto) 0.03 Assessment & Plan - Assessment and Plan (Free Text) Assessment: Assessment and Plan: 42 year old male, with a past medical history of colitis, chronic alcohol abuse , hypertension, and anxiety, presents with nausea and NBNB vomiting and possible alcohol withdrawal. Several past visits for same complaints, recently used a course of Cipro and Flagyl, which he failed, possibly due to alcohol use. Recently had CT abdomen pelvis (2 of them) that showed colitis Patient is also complaining of chest pain on this admission, has cardiac risk factors of race, hypertension, and cocaine use. 10 year ASCVD is 10.4%, Lifetime is 69%. Chest pain likely 2/2 Retching, Rule Out ACS - Tropes and EKG series; ECHO; Lipid panel; TSH; A1C ordered - EKG in ED shows LVH and sinus tachy; past EKG's show voltage criteria met for LVH - Suggest outpatient stress test given ASCVD risk Intractible Nausea/Vomiting with Abdominal pain, likely 2/2 Disulfiram Reaction VS Infectious VS Colitis - ABG, Rapid flu - Lipase WNL - Afebrile, normotensive; Tachycardic - NPO, Zofran, Morphine for pain control - GI Consult: Dr. Carolina History of Alcohol Withdrawal - Alcohol level was found to be 66 - Ativan 1 q6 ALEXANDRA - Ativan 2 q2 PRN - Banana Bag bolus and maintenance - CIWA protocol - Aspiration, seizure and fall precautions - Mag: low; Phos: high Diarrhea - Fecal leukocytes, Stool C Diff - There is an anion gap - FOBT Hypomagnesemia - Repleted History of HTN - Norvasc not in patient's home meds list this time. Will restart if patient becomes hypertensive History of Anxiety - No home medications GI/DVT Prophylaxis -Protonix/heparin <Emanuel Lorenzo - Last Filed: 01/26/18 16:00> Results - Vital Signs Recent Vital Signs: Last Vital Signs Temp 98.8 F 01/26/18 06:00 Pulse 71 01/26/18 06:00 Resp 18 01/26/18 06:00 BP 134/90 01/26/18 06:13 Pulse Ox 95 01/26/18 06:00 - Labs Result Diagrams: 01/26/18 05:00 01/26/18 06:30 Labs: Laboratory Results - last 24 hr 01/25/18 01/25/18 01/25/18 17:45 18:00 18:00 WBC 7.7 D RBC 4.41 Hgb 12.7 L Hct 36.8 L MCV 83.4 MCH 28.8 MCHC 34.5 RDW 14.4 Plt Count 206 MPV 10.3 Gran % 64.5 Lymph % (Auto) 26.2 [place] % (Auto) 8.8 H Eos % (Auto) 0.1 L Baso % (Auto) 0.4 Gran # 4.97 Lymph # (Auto) 2.0 [place] # (Auto) 0.7 H Eos # (Auto) 0.0 Baso # (Auto) 0.03 Sodium Potassium Chloride Carbon Dioxide Anion Gap BUN Creatinine Est GFR ( Amer) Est GFR (Non-Af Amer) Random Glucose Calcium Phosphorus Magnesium Total Bilirubin AST ALT Alkaline Phosphatase Troponin I Total Protein Albumin Globulin Albumin/Globulin Ratio Triglycerides 2033 H Cholesterol 221 H LDL Cholesterol Direct < 30 HDL Cholesterol 39 TSH 3rd Generation 0.88 Stool Occult Blood 01/25/18 01/26/18 01/26/18 22:00 05:00 06:30 WBC 4.4 L D RBC 4.38 Hgb 12.5 L Hct 36.9 L MCV 84.2 MCH 28.5 MCHC 33.9 RDW 14.2 Plt Count 190 MPV 10.4 Gran % 55.8 Lymph % (Auto) 30.4 [place] % (Auto) 12.4 H Eos % (Auto) 0.7 L Baso % (Auto) 0.7 Gran # 2.44 Lymph # (Auto) 1.3 [place] # (Auto) 0.5 Eos # (Auto) 0.0 Baso # (Auto) 0.03 Sodium 138 Potassium 3.4 L Chloride 105 Carbon Dioxide 24 Anion Gap 13 BUN 13 Creatinine 1.1 Est GFR ( Amer) > 60 Est GFR (Non-Af Amer) > 60 Random Glucose 90 Calcium 9.2 Phosphorus 3.6 Magnesium 2.2 Total Bilirubin 0.9 AST 61 H ALT 60 H Alkaline Phosphatase 58 Troponin I < 0.01 < 0.01 Total Protein 6.9 Albumin 3.8 Globulin 3.1 Albumin/Globulin Ratio 1.2 Triglycerides Cholesterol LDL Cholesterol Direct HDL Cholesterol TSH 3rd Generation Stool Occult Blood 01/26/18 01/26/18 07:44 11:35 WBC RBC Hgb Hct MCV MCH MCHC RDW Plt Count MPV Gran % Lymph % (Auto) [place] % (Auto) Eos % (Auto) Baso % (Auto) Gran # Lymph # (Auto) [place] # (Auto) Eos # (Auto) Baso # (Auto) Sodium Potassium Chloride Carbon Dioxide Anion Gap BUN Creatinine Est GFR ( Amer) Est GFR (Non-Af Amer) Random Glucose Calcium Phosphorus Magnesium Total Bilirubin AST ALT Alkaline Phosphatase Troponin I Total Protein Albumin Globulin Albumin/Globulin Ratio Triglycerides 979 H Cholesterol 197 LDL Cholesterol Direct < 30 HDL Cholesterol 52 TSH 3rd Generation Stool Occult Blood Positive H Attending/Attestation - Attestation I have personally seen and examined this patient.: Yes I have fully participated in the care of the patient.: Yes I have reviewed all pertinent clinical information: Yes Notes (Text): I have seen and examined the patient at bedside. Agree with the above note with the following additions/ exceptions: Briefly this is 42 year old male with past medical history of hypertension, cocaine abuse and chronic ETOH abuse who presents with complaint of abdominal pain with nausea, vomiting and diarrhea. CT abd/pelvis which was done about a week ago shows colitis. Continue with NPO , IVF, analgesics and antibiotics. GI evaluation is requested. Stool studies including for CDiff is ordered. Continue with ativan prn for alcohol withdrawal symptoms and banana bag. He was counselled on alcohol abstinence. Mildly elevated LFTs likely secondary to chronic ETOH abuse. He is on norvasc for hypertension. Will replete and repeat lytes (magnesium/potassium).Upon discharge patient will follow up with Dr Félix Uribe. Dr Emanuel Lorenzo
[2018-01-25 19:26] LABS: HDL CHOLESTEROL 39 mg/dL (29-60)
[2018-01-25 20:15] LABS: LDL CHOLESTEROL < 30 mg/dL (0-129)
[2018-01-25] MEDS: metroNIDAZOLE IV 250mg/50 ml 250 MG/50 ML BAG IVPB SCH (23:05)
[2018-01-25] MEDS: Cefepime 1gm in NS 100ml 1 GM/100 ML BAG IVPB SCH (23:52)
[2018-01-26] MEDS ORDERED: Influenza Vaccine 60 mcg/0.5 mL SYR (4YR UP) IM ONE (00:52)
[2018-01-26] MEDS ORDERED: Pneumococcal 23-Valent Vaccine IM ONE (00:52)
[2018-01-26] MEDS: Cefepime 1gm in NS 100ml 1 GM/100 ML BAG IVPB SCH ×3 (05:22→21:18)
[2018-01-26] MEDS: Pantoprazole 40 mg EC Tab PO SCH (05:39)
[2018-01-26 06:31] LABS: BASO # 0.03 K/mm3 (0.0-2.0); BASO % 0.7 % (0.0-3.0); EOS % 0.7 % (1.5-5.0); GRAN # 2.44 (1.4-6.5); GRAN % 55.8 % (50.0-68.0); HEMOGLOBIN 12.5 g/dL (14.0-18.0); LYMPH # 1.3 (1.2-3.4); LYMPH % 30.4 % (22.0-35.0); MEAN CELL VOLUME 84.2 fl (80.0-105.0); MEAN CORPUSCULAR HEMOGLOBIN 28.5 pg (25.0-35.0); MEAN CORPUSCULAR HGB CONC 33.9 g/dl (31.0-37.0); MEAN PLATELET VOLUME 10.4 fl (7.0-11.0); MONO # 0.5 (0.1-0.6); MONO % 12.4 % (1.0-6.0); RBC 4.38 10^6/uL (3.5-6.1); RED CELL DISTRIBUTION WIDTH 14.2 % (11.5-14.5); WHITE BLOOD COUNT 4.4 10^3/ul (4.5-11.0)
[2018-01-26] MEDS: metroNIDAZOLE IV 250mg/50 ml 250 MG/50 ML BAG IVPB SCH ×3 (06:45→21:19)
[2018-01-26 06:48] LABS: ALB/GLOB RATIO 1.2 (1.1-1.8); ALBUMIN 3.8 g/dL (3.0-4.8); ALT/SGPT 60 U/L (7-56); AST/SGOT 61 U/L (17-59); BLOOD UREA NITROGEN 13 mg/dL (7-21); CALCIUM 9.2 mg/dL (8.4-10.5); GFR AFRICAN-AMERICAN > 60; GFR NON-AFRICAN AMERICAN > 60
[2018-01-26 06:52] LABS: TROPONIN I < 0.01 ng/mL
[2018-01-26 08:57] LABS: HDL CHOLESTEROL 52 mg/dL (29-60)
[2018-01-26 09:08] LABS: LDL CHOLESTEROL < 30 mg/dL (0-129)
[2018-01-26] MEDS ORDERED: Barium Sulfate Susp 2.1% w/v, 2.0% w/w 450 mL Bottle PO ONE (10:09)
--- NOTE | 2018-01-26 10:52 | CP.PCM.CON ---
<Zhou Méndez - Last Filed: 01/26/18 10:57> History of Present Illness - History of Present Illness History of Present Illness: Piyush Craig is a 42M w/ hx of alcohol abuse, colitis, hypertension, and anxiety presents who presented with abd pain, diarrhea. He states that the onset was sudden and was sharp. He notes that the pain was LLQ and did not radiate. He states that the pain was 7 out of 10. He denies any aggrevating or alleviating factors. He denies any fever, chills. He states that he had 4 episodes of diarrhea yesterday and has not had a BM in 12+ hours. Patient states that there was no inciting event that led tho the nausea and vomiting. Patient denies any melena, gross red blood per rectum, hematemesis. Patient further denies fevers and chills, and denies having any sick contacts at home. His last drink was few hours prior to admission. Patient has had several past admissions with similar complaints. He was admitted from 10/30-11/02 with similar complaints, at which time he was discharged on cipro/flagyl. At that time, CT abdomen pelvis showed colonic thickening. He was recently here last week, when CT Abdomen Pelvis also showed colitis. Surgical History: Right Ankle surgery Medical History: Alcohol Abuse, Anxiety, and Colitis Social History: Smokes 4-5 cigarettes/day, drinks daily (fifth of vodka), occasional cocaine Family History: Denies Review of Systems: 12 point ROS obtained and negative except as per HPI Endo Hx denies Past Patient History - Infectious Disease Hx of Infectious Diseases: None - Tetanus Immunizations Tetanus Immunization: Unknown - Past Medical History & Family History Past Medical History?: Yes - Past Social History Smoking Status: Light Smoker < 10 Cigarettes Daily - CARDIAC Hx Cardiac Disorders: Yes Hx Hypertension: Yes - PULMONARY Hx Respiratory Disorders: No Other/Comment: light smoker - NEUROLOGICAL Hx Neurological Disorder: Yes Hx Dizziness: Yes Other/Comment: neuropathy - HEENT Hx HEENT Problems: No - RENAL Hx Chronic Kidney Disease: No - ENDOCRINE/METABOLIC Hx Endocrine Disorders: No - HEMATOLOGICAL/ONCOLOGICAL Hx Blood Disorders: No - INTEGUMENTARY Hx Dermatological Problems: No - MUSCULOSKELETAL/RHEUMATOLOGICAL Hx Musculoskeletal Disorders: Yes (RIGHT FOOT SURGERY WITH RODS AND SCREWS, RIGHT ANKLE FX.) Hx Falls: Yes Hx Fractures: Yes - GASTROINTESTINAL Hx Gastrointestinal Disorders: Yes Hx Gastroesophageal Reflux: Yes - GENITOURINARY/GYNECOLOGICAL Hx Genitourinary Disorders: No - PSYCHIATRIC Hx Psychophysiologic Disorder: Yes Hx Anxiety: Yes Hx Depression: Yes Hx Substance Use: Yes (cocaine occasionally) Other/Comment: ETOH, substance abuse - SURGICAL HISTORY Hx Musculoskeletal Surgery: Yes (R foot sx with rods/screws placed) Hx Orthopedic Surgery: Yes - ANESTHESIA Hx Anesthesia: Yes Hx Anesthesia Reactions: No Hx Malignant Hyperthermia: No Meds Allergies/Adverse Reactions: Allergies Allergy/AdvReac Type Severity Reaction Status Date / Time No Known Allergies Allergy Verified 01/18/18 12:19 - Medications Medications: Current Medications Heparin Sodium (Porcine) (Heparin) 5,000 units SC Q12 ALEXANDRA PRN Reason: Protocol Last Admin: 01/26/18 10:42 Dose: 5,000 units Cefepime HCl (Maxipime 1gm) 1 gm in 100 mls @ 100 mls/hr IVPB Q8 ALEXANDRA PRN Reason: Protocol Stop: 02/03/18 22:01 Last Admin: 01/26/18 05:22 Dose: 100 mls/hr Metronidazole (Flagyl) 250 mg in 50 mls @ 100 mls/hr IVPB Q8 ALEXANDRA PRN Reason: Protocol Stop: 02/03/18 22:01 Last Admin: 01/25/18 23:05 Dose: 100 mls/hr Lorazepam (Ativan) 1 mg IVP Q6H ALEXANDRA PRN Reason: Protocol Last Admin: 01/26/18 10:40 Dose: 1 mg Lorazepam (Ativan) 2 mg IVP Q2H PRN; Protocol PRN Reason: Anxiety Morphine Sulfate (Morphine) 1 mg IVP Q4H PRN PRN Reason: Pain, severe (8-10) Ondansetron HCl (Zofran Inj) 4 mg IVP Q8H PRN PRN Reason: Nausea/Vomiting Pantoprazole Sodium (Protonix Ec Tab) 40 mg PO 0600 [facility] Last Admin: 01/26/18 05:39 Dose: Not Given Physical Exam - Constitutional Appears: Well, No Acute Distress - Head Exam Head Exam: ATRAUMATIC, NORMOCEPHALIC - Eye Exam Eye Exam: Normal appearance - ENT Exam ENT Exam: Mucous Membranes Moist, Normal Exam - Neck Exam Neck exam: Positive for: Normal Inspection - Respiratory Exam Respiratory Exam: Clear to Auscultation Bilateral, NORMAL BREATHING PATTERN. absent: Prolonged Expiratory Phase, Rales, Rhonchi - Cardiovascular Exam Cardiovascular Exam: REGULAR RHYTHM, +S1, +S2 - GI/Abdominal Exam GI & Abdominal Exam: Normal Bowel Sounds, Soft. absent: Guarding, Rebound, Rigid - Rectal Exam Rectal Exam: NORMAL INSPECTION - Extremities Exam Extremities exam: Negative for: joint swelling, pedal edema - Neurological Exam Neurological exam: Alert, Oriented x3 - Psychiatric Exam Psychiatric exam: Normal Affect, Normal Mood - Skin Skin Exam: Dry, Intact, Normal Color, Warm Results - Vital Signs Recent Vital Signs: Last Vital Signs Temp 98.8 F 01/26/18 06:00 Pulse 71 01/26/18 06:00 Resp 18 01/26/18 06:00 BP 134/90 01/26/18 06:13 Pulse Ox 95 01/26/18 06:00 - Labs Result Diagrams: 01/26/18 05:00 01/26/18 06:30 Labs: Laboratory Results - last 24 hr 01/25/18 01/25/18 01/25/18 17:45 18:00 18:00 WBC 7.7 D RBC 4.41 Hgb 12.7 L Hct 36.8 L MCV 83.4 MCH 28.8 MCHC 34.5 RDW 14.4 Plt Count 206 MPV 10.3 Gran % 64.5 Lymph % (Auto) 26.2 [place] % (Auto) 8.8 H Eos % (Auto) 0.1 L Baso % (Auto) 0.4 Gran # 4.97 Lymph # (Auto) 2.0 [place] # (Auto) 0.7 H Eos # (Auto) 0.0 Baso # (Auto) 0.03 Sodium Potassium Chloride Carbon Dioxide Anion Gap BUN Creatinine Est GFR ( Amer) Est GFR (Non-Af Amer) Random Glucose Calcium Phosphorus Magnesium Total Bilirubin AST ALT Alkaline Phosphatase Troponin I Total Protein Albumin Globulin Albumin/Globulin Ratio Triglycerides 2033 H Cholesterol 221 H LDL Cholesterol Direct < 30 HDL Cholesterol 39 TSH 3rd Generation 0.88 01/25/18 01/26/18 01/26/18 22:00 05:00 06:30 WBC 4.4 L D RBC 4.38 Hgb 12.5 L Hct 36.9 L MCV 84.2 MCH 28.5 MCHC 33.9 RDW 14.2 Plt Count 190 MPV 10.4 Gran % 55.8 Lymph % (Auto) 30.4 [place] % (Auto) 12.4 H Eos % (Auto) 0.7 L Baso % (Auto) 0.7 Gran # 2.44 Lymph # (Auto) 1.3 [place] # (Auto) 0.5 Eos # (Auto) 0.0 Baso # (Auto) 0.03 Sodium 138 Potassium 3.4 L Chloride 105 Carbon Dioxide 24 Anion Gap 13 BUN 13 Creatinine 1.1 Est GFR ( Amer) > 60 Est GFR (Non-Af Amer) > 60 Random Glucose 90 Calcium 9.2 Phosphorus 3.6 Magnesium 2.2 Total Bilirubin 0.9 AST 61 H ALT 60 H Alkaline Phosphatase 58 Troponin I < 0.01 < 0.01 Total Protein 6.9 Albumin 3.8 Globulin 3.1 Albumin/Globulin Ratio 1.2 Triglycerides Cholesterol LDL Cholesterol Direct HDL Cholesterol TSH 3rd Generation 01/26/18 07:44 WBC RBC Hgb Hct MCV MCH MCHC RDW Plt Count MPV Gran % Lymph % (Auto) [place] % (Auto) Eos % (Auto) Baso % (Auto) Gran # Lymph # (Auto) [place] # (Auto) Eos # (Auto) Baso # (Auto) Sodium Potassium Chloride Carbon Dioxide Anion Gap BUN Creatinine Est GFR ( Amer) Est GFR (Non-Af Amer) Random Glucose Calcium Phosphorus Magnesium Total Bilirubin AST ALT Alkaline Phosphatase Troponin I Total Protein Albumin Globulin Albumin/Globulin Ratio Triglycerides 979 H Cholesterol 197 LDL Cholesterol Direct < 30 HDL Cholesterol 52 TSH 3rd Generation Assessment & Plan - Assessment and Plan (Free Text) Assessment: 42 year old male with history of Hypertension, anemia, and Polysubstance abuse presenting with abdominal pain. Active treatment of pancolitis on CT A/P. Prior pancolitis on CT 12/2017, 01/2017. No prior EGD or colonoscopy. Plan: -continue abx -stool cultures pending, c.diff pending -pt already has appt with outpt GI physicians, the [place] [facility], on 02/10 -recommend pt follow-up -advance diet as tolerated -CT reviewed and revealed recurrent pancolitis -recommended etoh cessation -will send for stool calprotectin, esr, and CRP - no plan for endoscopy D/W Dr. Carolina <Montrell Carolina - Last Filed: 01/26/18 16:13> Meds - Medications Medications: Current Medications Gemfibrozil (Lopid) 600 mg PO BID [facility] Heparin Sodium (Porcine) (Heparin) 5,000 units SC Q12 ALEXANDRA PRN Reason: Protocol Last Admin: 01/26/18 10:42 Dose: 5,000 units Cefepime HCl (Maxipime 1gm) 1 gm in 100 mls @ 100 mls/hr IVPB Q8 ALEXANDRA PRN Reason: Protocol Stop: 02/03/18 22:01 Last Admin: 01/26/18 13:17 Dose: 100 mls/hr Metronidazole (Flagyl) 250 mg in 50 mls @ 100 mls/hr IVPB Q8 ALEXANDRA PRN Reason: Protocol Stop: 02/03/18 22:01 Last Admin: 01/26/18 15:54 Dose: 100 mls/hr Lorazepam (Ativan) 1 mg IVP Q6H ALEXANDRA PRN Reason: Protocol Last Admin: 01/26/18 10:40 Dose: 1 mg Lorazepam (Ativan) 2 mg IVP Q2H PRN; Protocol PRN Reason: Anxiety Morphine Sulfate (Morphine) 1 mg IVP Q4H PRN PRN Reason: Pain, severe (8-10) Ondansetron HCl (Zofran Inj) 4 mg IVP Q8H PRN PRN Reason: Nausea/Vomiting Pantoprazole Sodium (Protonix Ec Tab) 40 mg PO 0600 [facility] Last Admin: 01/26/18 05:39 Dose: Not Given Results - Vital Signs Recent Vital Signs: Last Vital Signs Temp 98.8 F 01/26/18 06:00 Pulse 71 01/26/18 06:00 Resp 18 01/26/18 06:00 BP 134/90 01/26/18 06:13 Pulse Ox 95 01/26/18 06:00 - Labs Result Diagrams: 01/26/18 05:00 01/26/18 06:30 Labs: Laboratory Results - last 24 hr 01/25/18 01/25/18 01/25/18 17:45 18:00 18:00 WBC 7.7 D RBC 4.41 Hgb 12.7 L Hct 36.8 L MCV 83.4 MCH 28.8 MCHC 34.5 RDW 14.4 Plt Count 206 MPV 10.3 Gran % 64.5 Lymph % (Auto) 26.2 [place] % (Auto) 8.8 H Eos % (Auto) 0.1 L Baso % (Auto) 0.4 Gran # 4.97 Lymph # (Auto) 2.0 [place] # (Auto) 0.7 H Eos # (Auto) 0.0 Baso # (Auto) 0.03 Sodium Potassium Chloride Carbon Dioxide Anion Gap BUN Creatinine Est GFR ( Amer) Est GFR (Non-Af Amer) Random Glucose Calcium Phosphorus Magnesium Total Bilirubin AST ALT Alkaline Phosphatase Troponin I Total Protein Albumin Globulin Albumin/Globulin Ratio Triglycerides 2033 H Cholesterol 221 H LDL Cholesterol Direct < 30 HDL Cholesterol 39 TSH 3rd Generation 0.88 Stool Occult Blood 01/25/18 01/26/18 01/26/18 22:00 05:00 06:30 WBC 4.4 L D RBC 4.38 Hgb 12.5 L Hct 36.9 L MCV 84.2 MCH 28.5 MCHC 33.9 RDW 14.2 Plt Count 190 MPV 10.4 Gran % 55.8 Lymph % (Auto) 30.4 [place] % (Auto) 12.4 H Eos % (Auto) 0.7 L Baso % (Auto) 0.7 Gran # 2.44 Lymph # (Auto) 1.3 [place] # (Auto) 0.5 Eos # (Auto) 0.0 Baso # (Auto) 0.03 Sodium 138 Potassium 3.4 L Chloride 105 Carbon Dioxide 24 Anion Gap 13 BUN 13 Creatinine 1.1 Est GFR ( Amer) > 60 Est GFR (Non-Af Amer) > 60 Random Glucose 90 Calcium 9.2 Phosphorus 3.6 Magnesium 2.2 Total Bilirubin 0.9 AST 61 H ALT 60 H Alkaline Phosphatase 58 Troponin I < 0.01 < 0.01 Total Protein 6.9 Albumin 3.8 Globulin 3.1 Albumin/Globulin Ratio 1.2 Triglycerides Cholesterol LDL Cholesterol Direct HDL Cholesterol TSH 3rd Generation Stool Occult Blood 01/26/18 01/26/18 07:44 11:35 WBC RBC Hgb Hct MCV MCH MCHC RDW Plt Count MPV Gran % Lymph % (Auto) [place] % (Auto) Eos % (Auto) Baso % (Auto) Gran # Lymph # (Auto) [place] # (Auto) Eos # (Auto) Baso # (Auto) Sodium Potassium Chloride Carbon Dioxide Anion Gap BUN Creatinine Est GFR ( Amer) Est GFR (Non-Af Amer) Random Glucose Calcium Phosphorus Magnesium Total Bilirubin AST ALT Alkaline Phosphatase Troponin I Total Protein Albumin Globulin Albumin/Globulin Ratio Triglycerides 979 H Cholesterol 197 LDL Cholesterol Direct < 30 HDL Cholesterol 52 TSH 3rd Generation Stool Occult Blood Positive H Attending/Attestation - Attestation I have personally seen and examined this patient.: Yes I have fully participated in the care of the patient.: Yes I have reviewed all pertinent clinical information: Yes Notes (Text): 01/26/18 16:12 42 year old male with h/o substance abuse with possible colitis. He already is scheduled for outpatient evaluation with GI. In the meantime, would send stool studies to r/o infectious etiology. Supportive care in the meantime.
[2018-01-26] MEDS ORDERED: Iohexol 350 MG/100 ML VIAL ONE (12:58)
--- NOTE | 2018-01-26 14:29 | CT ---
PROCEDURE: CT Abdomen and Pelvis with contrast HISTORY: r/o pancreatitis and colitis COMPARISON: 01/18/2018 CT abdomen and pelvis. TECHNIQUE: Contrast dose: 100 cc Omnipaque 350. Radiation dose: Total exam DLP = 938.39 mGy-cm. This CT exam was performed using one or more of the following dose reduction techniques: Automated exposure control, adjustment of the mA and/or kV according to patient size, and/or use of iterative reconstruction technique. FINDINGS: LOWER THORAX: Unremarkable. LIVER: Hepatic steatosis. No focal masses. No intrahepatic bile duct dilatation or perihepatic ascites. GALLBLADDER AND BILE DUCTS: Unremarkable. PANCREAS: Unremarkable. No gross lesion or ductal dilatation. SPLEEN: Unremarkable. ADRENALS: Unremarkable. No mass. KIDNEYS AND URETERS: Unremarkable. No hydronephrosis. No solid mass. VASCULATURE: Unremarkable. No aortic aneurysm. BOWEL: Interval improvement in colitis identified on the prior CT scan 01/18/2018. APPENDIX: Normal appendix. PERITONEUM: Unremarkable. No free fluid. No free air. LYMPH NODES: Unremarkable. No enlarged lymph nodes. BLADDER: Unremarkable. REPRODUCTIVE: Unremarkable. BONES: No acute fracture. OTHER FINDINGS: None. IMPRESSION: Resolution of previously identified colitis. Additional benign and/or incidental findings described above.
--- NOTE | 2018-01-26 14:47 | CARD ---
APPROVED REPORT EKG Measurement Heart [id number] MA [id number] <Conclusion> Normal sinus rhythm Moderate voltage criteria for LVH, may be normal variant Borderline ECG
--- NOTE | 2018-01-26 15:07 | CARD ---
APPROVED REPORT EKG Measurement Heart [id number] ME [id number] <Conclusion> Sinus tachycardia Possible Left atrial enlargement Left ventricular hypertrophy Abnormal ECG
--- NOTE | 2018-01-26 18:01 | CP.PCM.PN ---
Subjective - Date & Time of Evaluation Date of Evaluation: 01/26/18 Time of Evaluation: 17:53 - Subjective Subjective: Medicine progress note: Dr. Isra Lorenzo Patient seen and examined at bedside. Patient states he feels much better today and states that the chest pain has completely resolved. He still admits to some LLQ abdominal pain, but states it is much better and states that he has not had any bouts of vomiting. Objective - Vital Signs/Intake and Output Vital Signs (last 24 hours): Temp Pulse Resp BP Pulse Ox 98.1 F 78 20 140/105 H 100 01/26/18 14:00 01/26/18 14:00 01/26/18 14:00 01/26/18 14:00 01/26/18 14:00 Intake and Output: 01/26/18 01/26/18 06:59 18:59 Output Total 1400 Balance -1400 - Medications Medications: Current Medications Gemfibrozil (Lopid) 600 mg PO BID [facility] Last Admin: 01/26/18 17:38 Dose: 600 mg Heparin Sodium (Porcine) (Heparin) 5,000 units SC Q12 ALEXANDRA PRN Reason: Protocol Last Admin: 01/26/18 10:42 Dose: 5,000 units Cefepime HCl (Maxipime 1gm) 1 gm in 100 mls @ 100 mls/hr IVPB Q8 ALEXANDRA PRN Reason: Protocol Stop: 02/03/18 22:01 Last Admin: 01/26/18 13:17 Dose: 100 mls/hr Metronidazole (Flagyl) 250 mg in 50 mls @ 100 mls/hr IVPB Q8 ALEXANDRA PRN Reason: Protocol Stop: 02/03/18 22:01 Last Admin: 01/26/18 15:54 Dose: 100 mls/hr Lorazepam (Ativan) 1 mg IVP Q6H ALEXANDRA PRN Reason: Protocol Last Admin: 01/26/18 17:38 Dose: 1 mg Lorazepam (Ativan) 2 mg IVP Q2H PRN; Protocol PRN Reason: Anxiety Morphine Sulfate (Morphine) 1 mg IVP Q4H PRN PRN Reason: Pain, severe (8-10) Ondansetron HCl (Zofran Inj) 4 mg IVP Q8H PRN PRN Reason: Nausea/Vomiting Pantoprazole Sodium (Protonix Ec Tab) 40 mg PO 0600 [facility] Last Admin: 01/26/18 05:39 Dose: Not Given - Labs Labs: 01/26/18 05:00 01/26/18 06:30 - Constitutional Appears: Well - Head Exam Head Exam: ATRAUMATIC, NORMAL INSPECTION, NORMOCEPHALIC - Eye Exam Eye Exam: EOMI, Normal appearance, PERRL Pupil Exam: NORMAL ACCOMODATION, PERRL - ENT Exam ENT Exam: Mucous Membranes Moist, Normal Exam - Neck Exam Neck Exam: Full ROM, Normal Inspection. absent: Lymphadenopathy - Respiratory Exam Respiratory Exam: Clear to Ausculation Bilateral, NORMAL BREATHING PATTERN - Cardiovascular Exam Cardiovascular Exam: REGULAR RHYTHM, +S1, +S2. absent: Murmur - GI/Abdominal Exam GI & Abdominal Exam: Soft, Normal Bowel Sounds. absent: Tenderness - Extremities Exam Extremities Exam: Full ROM, Normal Capillary Refill, Normal Inspection. absent : Joint Swelling, Pedal Edema - Back Exam Back Exam: NORMAL INSPECTION - Neurological Exam Neurological Exam: Alert, Awake, CN II-XII Intact, Normal Gait, Oriented x3 - Psychiatric Exam Psychiatric exam: Normal Affect, Normal Mood - Skin Skin Exam: Dry, Intact, Normal Color, Warm Assessment and Plan - Assessment and Plan (Free Text) Assessment: Assessment and Plan: 42 year old male, with a past medical history of colitis, chronic alcohol abuse , hypertension, and anxiety, presents with nausea and NBNB vomiting and possible alcohol withdrawal. Several past visits for same complaints, recently used a course of Cipro and Flagyl, which he failed, possibly due to alcohol use. Recently had CT abdomen pelvis (2 of them) that showed colitis Patient is also complaining of chest pain on this admission, has cardiac risk factors of race, hypertension, and cocaine use. 10 year ASCVD is 10.4%, Lifetime is 69%. Chest pain likely 2/2 Retching, Rule Out ACS - Tropes and EKG series - negative; ECHO - pending; Lipid panel; - TSH - normal; A1C ordered - pending - EKG in ED shows LVH and sinus tachy; past EKG's show voltage criteria met for LVH - Suggest outpatient stress test given ASCVD risk Hypertriglyceridemia - Initially was 2200, repeated it, still shows 979. - Will start Gemfibrozil and monitor patient Intractible Nausea/Vomiting with Abdominal pain, likely 2/2 Disulfiram Reaction VS Infectious VS Colitis - ABG, Rapid flu - pending - Lipase WNL - Afebrile, normotensive; Tachycardic - Patient advanced to Full Liquids - GI Consult: Dr. Carolina Recommend patient follow up, advance diet as tolerated, recommend alcohol cessation Sent calprotectin, ESR, and CRP No plan for endoscopy - Patient's CT abdomen pelvis showed resolution of colitis History of Alcohol Withdrawal - Alcohol level was found to be 66 - Ativan 1 q6 ALEXANDRA - Ativan 2 q2 PRN - CIWA protocol - Aspiration, seizure and fall precautions - Mag: low; Phos: high Diarrhea - Fecal leukocytes, Stool C Diff - There is an anion gap - FOBT Hypomagnesemia - Repleted History of HTN - Norvasc not in patient's home meds list this time. Will restart if patient becomes hypertensive History of Anxiety - No home medications GI/DVT Prophylaxis -Protonix/heparin
--- NOTE | 2018-01-26 21:50 | CON ---
DATE: 01/26/2018 LOCATION: The patient is seen in room 568, bed 2. CHIEF COMPLAINT: Abdominal pain and diarrhea times several days. HISTORY OF PRESENT ILLNESS: This is a 42-year-old male who has a history of alcoholism, hypertension, GERD, anxiety, depression, was seen in the emergency room earlier on and was given antibiotics and continued to have nausea and vomiting for the past one week and now admitted to the emergency room last night, and the patient was given Cipro and Flagyl without improvement. REVIEW OF SYSTEMS: Reveals the patient had nausea and vomiting and diffuse abdominal pain, diarrhea. No bright red blood per rectum. No fevers and no chills. There is nausea and vomiting. No chest pain, shortness of breath, or cough. PAST MEDICAL HISTORY: Significant for alcoholism, hypertension, GERD, anxiety, depression. PAST SURGICAL HISTORY: Significant for right foot surgery with rods and screws. ALLERGIES: THE PATIENT HAS NO KNOWN ALLERGIES. MEDICATIONS AT HOME: Include Cipro, Flagyl, and Motrin. PHYSICAL EXAMINATION: GENERAL: The patient is in bed in no acute distress. He is going for food. VITAL SIGNS: Temperature of 98.4, blood pressure is 140/100, pulse of 101, respiratory rate of 20. HEENT: Unremarkable. NECK: Supple. LUNGS: Have decreased breath sounds. HEART: Normal S1, S2. ABDOMEN: Soft, nontender. No organomegaly. No rebound. No guarding. No masses. LABORATORY EXAMINATION: Reveals the patient's white count of 4.9, hemoglobin of 13, platelets of 226. Chemistries reveals a BUN of 20, creatinine of 1.2, AST is 64, ALT of 65, triglycerides over 2000, and cholesterol is 221. Urinalysis is unremarkable, and toxicology reveals alcohol of 66 and also cocaine metabolites are seen. Microbiology is pending. History and physical examination is reviewed. Emergency room chart is reviewed. No other information is available at this time. ASSESSMENT AND PLAN: He is a 42-year-old male with a history of alcoholism, depression, anxiety, hypertension and colitis for a week and on antibiotic Cipro and Flagyl. The patient now admitted with nausea, vomiting, diarrhea. Recurrent colitis. We will treat the patient with Maxipime and Flagyl pending stool cultures, blood cultures. Consider a CAT scan of the abdomen and pelvis. The patient had an human immunodeficiency virus test in the past, which was negative, and initial workup results and clinical response and Gastroenterology consultation is requested, and we will follow closely with you. Dameon Medeiros MD
[2018-01-27] MEDS: metroNIDAZOLE IV 250mg/50 ml 250 MG/50 ML BAG IVPB SCH ×2 (05:15→14:08)
[2018-01-27] MEDS: Cefepime 1gm in NS 100ml 1 GM/100 ML BAG IVPB SCH ×2 (06:26→14:08)
[2018-01-27 07:19] LABS: ALB/GLOB RATIO 1.2 (1.1-1.8); ALBUMIN 3.8 g/dL (3.0-4.8); ALT/SGPT 51 U/L (7-56); AST/SGOT 53 U/L (17-59); BLOOD UREA NITROGEN 6 mg/dL (7-21); CALCIUM 9.4 mg/dL (8.4-10.5); GFR AFRICAN-AMERICAN > 60; GFR NON-AFRICAN AMERICAN > 60
[2018-01-27 08:18] VITALS: RESP 18
[2018-01-27 08:49] LABS: HEPATITIS B SURFACE AG Negative (NEGATIVE)
[2018-01-27 08:56] LABS: HEPATITIS A IGM NEGATIVE (NEGATIVE); HEPATITIS B CORE AB NEGATIVE (NEGATIVE)
[2018-01-27] MEDS ORDERED: Potassium Chloride 20 mEq ER Tab PO STA (08:59)
[2018-01-27 09:06] LABS: HEPATITIS C ANTIBODY NEGATIVE (NEGATIVE)
--- NOTE | 2018-01-27 10:13 | CP.PCM.PN ---
<Zhou Méndez - Last Filed: 01/27/18 10:14> Subjective - Date & Time of Evaluation Date of Evaluation: 01/27/18 Time of Evaluation: 08:00 - Subjective Subjective: PGY4 GI Follow-up Pt seen and examined bedside hungry still having diarrhea denies any abd pain pt states that other than diarrhea, he feels better ROS: 12 point ROS conducted, neg other than above Objective - Vital Signs/Intake and Output Vital Signs (last 24 hours): Temp Pulse Resp BP Pulse Ox 97.8 F 91 H 18 134/93 H 100 01/27/18 08:16 01/27/18 08:16 01/27/18 08:16 01/27/18 08:16 01/27/18 08:16 Intake and Output: 01/27/18 01/27/18 06:59 18:59 Intake Total 720 Balance 720 - Medications Medications: Current Medications Gemfibrozil (Lopid) 600 mg PO BID [facility] Last Admin: 01/26/18 17:38 Dose: 600 mg Heparin Sodium (Porcine) (Heparin) 5,000 units SC Q12 ALEXANDRA PRN Reason: Protocol Last Admin: 01/26/18 21:18 Dose: 5,000 units Cefepime HCl (Maxipime 1gm) 1 gm in 100 mls @ 100 mls/hr IVPB Q8 ALEXANDRA PRN Reason: Protocol Stop: 02/03/18 22:01 Last Admin: 01/27/18 06:26 Dose: 100 mls/hr Metronidazole (Flagyl) 250 mg in 50 mls @ 100 mls/hr IVPB Q8 ALEXANDRA PRN Reason: Protocol Stop: 02/03/18 22:01 Last Admin: 01/27/18 05:15 Dose: 100 mls/hr Lorazepam (Ativan) 1 mg IVP Q6H ALEXANDRA PRN Reason: Protocol Last Admin: 01/27/18 05:20 Dose: 1 mg Lorazepam (Ativan) 2 mg IVP Q2H PRN; Protocol PRN Reason: Anxiety Morphine Sulfate (Morphine) 1 mg IVP Q4H PRN PRN Reason: Pain, severe (8-10) Ondansetron HCl (Zofran Inj) 4 mg IVP Q8H PRN PRN Reason: Nausea/Vomiting Oseltamivir Phosphate (Tamiflu Cap) 75 mg PO BID ALEXANDRA PRN Reason: Protocol Stop: 01/31/18 20:29 Last Admin: 01/26/18 21:18 Dose: 75 mg Pantoprazole Sodium (Protonix Ec Tab) 40 mg PO 0600 ALEXANDRA Last Admin: 01/26/18 05:39 Dose: Not Given Potassium Chloride (K-Dur 20 Meq Er Tab) 40 meq PO ONCE ONE Stop: 01/27/18 13:01 - Labs Labs: 01/26/18 05:00 01/27/18 06:00 - Constitutional Appears: Well, No Acute Distress - Head Exam Head Exam: ATRAUMATIC, NORMOCEPHALIC - Eye Exam Eye Exam: EOMI, Normal appearance - ENT Exam ENT Exam: Mucous Membranes Moist, Normal Exam - Neck Exam Neck Exam: Normal Inspection - Respiratory Exam Respiratory Exam: Clear to Ausculation Bilateral, NORMAL BREATHING PATTERN. absent: Rhonchi, Wheezes, Respiratory Distress - Cardiovascular Exam Cardiovascular Exam: REGULAR RHYTHM, +S1, +S2 - GI/Abdominal Exam GI & Abdominal Exam: Soft, Normal Bowel Sounds. absent: Distended, Firm, Guarding, Rigid, Tenderness, Organomegaly - Extremities Exam Extremities Exam: absent: Joint Swelling, Pedal Edema - Neurological Exam Neurological Exam: Alert, Awake, Oriented x3 - Psychiatric Exam Psychiatric exam: Normal Affect, Normal Mood - Skin Skin Exam: Dry, Intact, Normal Color, Warm Assessment and Plan - Assessment and Plan (Free Text) Assessment: 42 year old male with history of Hypertension, anemia, and Polysubstance abuse presenting with abdominal pain. Active treatment of pancolitis on CT A/P. Influenza +. Prior pancolitis on CT 12/2017, 01/2017. No prior EGD or colonoscopy. Plan: -continue abx -stool cultures pending, c.diff neg -pt already has appt with outpt GI physicians, [facility], on 02/10 -recommend pt follow-up -advance diet as tolerated -CT reviewed and revealed recurrent pancolitis (but improved since previous CT imaging) -recommended etoh cessation and cocaine use - no plan for endoscopy D/W Dr. Bonilla <Garrick Bonilla - Last Filed: 01/27/18 10:25> Objective - Vital Signs/Intake and Output Vital Signs (last 24 hours): Temp Pulse Resp BP Pulse Ox 97.8 F 91 H 18 134/93 H 100 01/27/18 08:16 01/27/18 08:16 01/27/18 08:16 01/27/18 08:16 01/27/18 08:16 Intake and Output: 01/27/18 01/27/18 06:59 18:59 Intake Total 720 Balance 720 - Medications Medications: Current Medications Gemfibrozil (Lopid) 600 mg PO BID [facility] Last Admin: 01/26/18 17:38 Dose: 600 mg Heparin Sodium (Porcine) (Heparin) 5,000 units SC Q12 ALEXANDRA PRN Reason: Protocol Last Admin: 01/26/18 21:18 Dose: 5,000 units Cefepime HCl (Maxipime 1gm) 1 gm in 100 mls @ 100 mls/hr IVPB Q8 ALEXANDRA PRN Reason: Protocol Stop: 02/03/18 22:01 Last Admin: 01/27/18 06:26 Dose: 100 mls/hr Metronidazole (Flagyl) 250 mg in 50 mls @ 100 mls/hr IVPB Q8 [facility] PRN Reason: Protocol Stop: 02/03/18 22:01 Last Admin: 01/27/18 05:15 Dose: 100 mls/hr Lorazepam (Ativan) 1 mg IVP Q6H ALEXANDRA PRN Reason: Protocol Last Admin: 01/27/18 05:20 Dose: 1 mg Lorazepam (Ativan) 2 mg IVP Q2H PRN; Protocol PRN Reason: Anxiety Morphine Sulfate (Morphine) 1 mg IVP Q4H PRN PRN Reason: Pain, severe (8-10) Ondansetron HCl (Zofran Inj) 4 mg IVP Q8H PRN PRN Reason: Nausea/Vomiting Oseltamivir Phosphate (Tamiflu Cap) 75 mg PO BID [facility] PRN Reason: Protocol Stop: 01/31/18 20:29 Last Admin: 01/26/18 21:18 Dose: 75 mg Pantoprazole Sodium (Protonix Ec Tab) 40 mg PO 0600 [facility] Last Admin: 01/26/18 05:39 Dose: Not Given Potassium Chloride (K-Dur 20 Meq Er Tab) 40 meq PO ONCE ONE Stop: 01/27/18 13:01 - Labs Labs: 01/26/18 05:00 01/27/18 06:00 Attending/Attestation - Attestation I have personally seen and examined this patient.: Yes I have fully participated in the care of the patient.: Yes I have reviewed all pertinent clinical information, including history, physical exam and plan: Yes Notes (Text): 01/27/18 10:22 I have seen and examined patient with GI fellow. No acute events overnight, he is seen sitting in bed eating breakfast, appears comfortable. He endorses ongoing loose bowel movements but denies abdominal pain, nausea, vomiting, fever /chills. HTN Anemia Polysubstance abuse +Influenza Colitis - unclear etiology CT imaging reviewed by me showing interval improvement in previously seen colitis - Advance diet as tolerated - Continue with antibiotic therapy - Patient counseled regarding cessation of substance abuse - No further planned GI intervention, patient has scheduled outpatient follow up with GI physician on February 10, he has been advised that he requires follow up colonoscopy. Will sign off case, please reconsult as necessary, thank you.
[2018-01-27] MEDS: Pantoprazole 40 mg EC Tab PO SCH (11:21)
[2018-01-27] MEDS ORDERED: Morphine 2 mg/2 mL syringe IVP PRN (12:34)
[2018-01-27] MEDS ORDERED: Potassium Chloride 20 mEq ER Tab PO ONE (13:00)
--- NOTE | 2018-01-27 14:55 | CP.PCM.DIS ---
<Bernard Walters - Last Filed: 01/27/18 18:24> Provider - Provider Date of Admission: 01/25/18 16:38 Attending physician: Yi Oliver MD Primary care physician: Griselda Heard MD Time Spent in preparation of Discharge (in minutes): 45 Hospital Course - Lab Results Lab Results: Micro Results 01/26/18 06:20 Blood Blood Culture - Preliminary NO GROWTH AFTER 24 HOURS 01/26/18 06:10 Blood Blood Culture - Preliminary NO GROWTH AFTER 24 HOURS 01/26/18 11:35 Stool C. difficile Antigen & Toxin A,B (M - Final Most Recent Lab Values WBC 4.4 10^3/ul (4.5-11.0) L D 01/26/18 05:00 RBC 4.38 10^6/uL (3.5-6.1) 01/26/18 05:00 Hgb 12.5 g/dL (14.0-18.0) L 01/26/18 05:00 Hct 36.9 % (42.0-52.0) L 01/26/18 05:00 MCV 84.2 fl (80.0-105.0) 01/26/18 05:00 MCH 28.5 pg (25.0-35.0) 01/26/18 05:00 MCHC 33.9 g/dl (31.0-37.0) 01/26/18 05:00 RDW 14.2 % (11.5-14.5) 01/26/18 05:00 Plt Count 190 10^3/uL (120.0-450.0) 01/26/18 05:00 MPV 10.4 fl (7.0-11.0) 01/26/18 05:00 Gran % 55.8 % (50.0-68.0) 01/26/18 05:00 Lymph % (Auto) 30.4 % (22.0-35.0) 01/26/18 05:00 [place] % (Auto) 12.4 % (1.0-6.0) H 01/26/18 05:00 Eos % (Auto) 0.7 % (1.5-5.0) L 01/26/18 05:00 Baso % (Auto) 0.7 % (0.0-3.0) 01/26/18 05:00 Gran # 2.44 (1.4-6.5) 01/26/18 05:00 Lymph # (Auto) 1.3 (1.2-3.4) 01/26/18 05:00 [place] # (Auto) 0.5 (0.1-0.6) 01/26/18 05:00 Eos # (Auto) 0.0 (0.0-0.7) 01/26/18 05:00 Baso # (Auto) 0.03 K/mm3 (0.0-2.0) 01/26/18 05:00 Sodium 136 mmol/L (132-148) 01/27/18 06:00 Potassium 3.1 mmol/L (3.6-5.0) L 01/27/18 06:00 Chloride 102 mmol/L (98-107) 01/27/18 06:00 Carbon Dioxide 26 mmol/L (21-33) 01/27/18 06:00 Anion Gap 12 (10-20) 01/27/18 06:00 BUN 6 mg/dL (7-21) L 01/27/18 06:00 Creatinine 0.9 mg/dl (0.8-1.5) 01/27/18 06:00 Est GFR ( Amer) > 60 01/27/18 06:00 Est GFR (Non-Af Amer) > 60 01/27/18 06:00 Random Glucose 117 mg/dL (70-110) H 01/27/18 06:00 Hemoglobin A1c 5.8 % (4.2-6.5) 01/25/18 18:00 Calcium 9.4 mg/dL (8.4-10.5) 01/27/18 06:00 Phosphorus 4.0 mg/dL (2.5-4.5) 01/27/18 06:00 Magnesium 1.8 mg/dL (1.7-2.2) 01/27/18 06:00 Total Bilirubin 0.4 mg/dL (0.2-1.3) 01/27/18 06:00 AST 53 U/L (17-59) 01/27/18 06:00 ALT 51 U/L (7-56) 01/27/18 06:00 Alkaline Phosphatase 52 U/L (38-126) 01/27/18 06:00 Lactate Dehydrogenase 551 U/L (333-699) 01/25/18 15:30 Total Creatine Kinase 189 U/L (35-230) 01/25/18 15:30 Troponin I < 0.01 ng/mL 01/26/18 06:30 Total Protein 6.9 g/dL (5.8-8.3) 01/27/18 06:00 Albumin 3.8 g/dL (3.0-4.8) 01/27/18 06:00 Globulin 3.1 gm/dL 01/27/18 06:00 Albumin/Globulin Ratio 1.2 (1.1-1.8) 01/27/18 06:00 Triglycerides 979 mg/dL (35-160) H 01/26/18 07:44 Cholesterol 197 mg/dL (130-200) 01/26/18 07:44 LDL Cholesterol Direct < 30 mg/dL (0-129) 01/26/18 07:44 HDL Cholesterol 52 mg/dL (29-60) 01/26/18 07:44 Amylase 67 U/L (35-125) 01/25/18 15:30 Lipase 67 U/L (23-300) 01/25/18 15:30 TSH 3rd Generation 0.88 mIU/mL (0.46-4.68) 01/25/18 18:00 Urine Color Straw (YELLOW) 01/25/18 15:30 Urine Appearance Clear (CLEAR) 01/25/18 15:30 Urine pH 6.0 (4.7-8.0) 01/25/18 15:30 Ur Specific Kite 1.025 (1.005-1.035) 01/25/18 15:30 Urine Protein 30 mg/dL (<30 mg/dL) H 01/25/18 15:30 Urine Glucose (UA) Negative mg/dL (NEGATIVE) 01/25/18 15:30 Urine Ketones Negative mg/dL (NEGATIVE) 01/25/18 15:30 Urine Blood Negative (NEGATIVE) 01/25/18 15:30 Urine Nitrate Negative (NEGATIVE) 01/25/18 15:30 Urine Bilirubin Negative (NEGATIVE) 01/25/18 15:30 Urine Urobilinogen 0.2 E.U./dL (<1 E.U./dL) 01/25/18 15:30 Ur Leukocyte Esterase Negative Georges/uL (NEGATIVE) 01/25/18 15:30 Urine RBC 0 - 2 /hpf (0-2) 01/25/18 15:30 Urine WBC 0 - 2 /hpf (0-6) 01/25/18 15:30 Ur Epithelial Cells 1 - 3 /hpf (0-5) 01/25/18 15:30 Urine Bacteria Few (NEG) 01/25/18 15:30 Stool Occult Blood Positive (NEGATIVE) H 01/26/18 11:35 Stool Leukocytes, Qual Negative (NEGATIVE) 01/26/18 11:35 Urine Opiates Screen Negative (NEGATIVE) 01/25/18 15:30 Urine Methadone Screen Negative (NEGATIVE) 01/25/18 15:30 Ur Barbiturates Screen Negative (NEGATIVE) 01/25/18 15:30 Ur Phencyclidine Scrn Negative (NEGATIVE) 01/25/18 15:30 Ur Amphetamines Screen Negative (NEGATIVE) 01/25/18 15:30 U Benzodiazepines Scrn Negative (NEGATIVE) 01/25/18 15:30 U Oth Cocaine Metabols Positive (NEGATIVE) H 01/25/18 15:30 U Cannabinoids Screen Negative (NEGATIVE) 01/25/18 15:30 Alcohol, Quantitative 66 mg/dL (0-10) H 01/25/18 15:30 Hepatitis A IgM Ab Negative (NEGATIVE) 01/25/18 18:00 Hep Bs Antigen Negative (NEGATIVE) 01/25/18 18:00 Hep B Core IgM Ab Negative (NEGATIVE) 01/25/18 18:00 Hepatitis C Antibody Negative (NEGATIVE) 01/25/18 18:00 Influenza Typ A,B (EIA) Pos for influenza a (NEGATIVE) H 01/26/18 19:57 - Hospital Course Hospital Course: HPI: 42 year old male with past medical history of alcohol abuse, colitis, hypertension, and anxiety presents with 12 hour duration of intractible nausea and vomiting with mild diarrhea. Patient states that there was no inciting event that led tho the nausea and vomiting, that he was laying in bed and the nausea started. He cannot quantify the number of episodes, but states that the nausea and vomiting is more frequent than the diarrhea. Patient denies any melena, gross red blood per rectum, hematemesis. Patient further denies fevers and chills, and denies having any sick contacts at home. Of note, patient has had several past admissions with similar complaints. He was admitted from 10/30-11/02 with similar complaints, at which time he was discharged on cipro/flagyl. At that time, CT abdomen pelvis showed colonic thickening. He was recently here last week, when CT Abdomen Pelvis also showed colitis. Patient also complains of mild chest pain with shortness of breath. Patient has seen a hand buffer in the past, does not recall the name, but states the hand buffer is at [place]. Patient had a stress test in 2011 per our records , which showed a normal myocardial perfusion study. Patient's last ECHO was in 2013 which showed mild TR/MR and EF of 52.2%. Patient's last few EKG's have shown Voltage criteria for LVH. Patient states he has never had a catheterization of the heart, a heart attack, or history of arrhythmias. During his course here, Mr. Craig's abdominal pain, nausea, and vomting subsided. Patient did develop some diarrhea while he was here, which also improved. On day 2 of admission, however, his TG's were found to be elevated 2200, on repeat 970. Patient was started on Gemfibrozil. There was no diagnosis of pancreatitis, as patient only met 1/3 criteria. Patient's colitis on CT abdomen pelvis done here was also found to be resolved. Tropes and EKG X 3 showed no evidence of AMI. Patient was found to have flu, was treated and sent with Tamflu. Patient was found to be stable for discharge. GI saw him and said to follow up on February 10 with his GI at [facility]. Discharge Exam - Head Exam Head Exam: ATRAUMATIC, NORMAL INSPECTION, NORMOCEPHALIC - Eye Exam Eye Exam: EOMI, Normal appearance, PERRL Pupil Exam: NORMAL ACCOMODATION, PERRL - Respiratory Exam Respiratory Exam: Clear to PA & Lateral, NORMAL BREATHING PATTERN, UNREMARKABLE - Cardiovascular Exam Cardiovascular Exam: REGULAR RHYTHM - GI/Abdominal Exam GI & Abdominal Exam: Normal Bowel Sounds, Unremarkable - Neurological Exam Neurological exam: Alert, CN II-XII Intact, Normal Gait, Oriented x3, Reflexes Normal - Psychiatric Exam Psychiatric exam: Normal Affect, Normal Mood - Skin Skin Exam: Dry, Intact, Normal Color, Warm Discharge Plan - Discharge Medications Prescriptions: Cefpodoxime [Vantin] 200 mg PO Q12 #12 tab Gemfibrozil [Lopid] 600 mg PO BID #60 tab Metronidazole [Flagyl] 500 mg PO TID #15 tablet Oseltamivir [Tamiflu Cap] 75 mg PO BID #10 cap - Follow Up Plan Condition: STABLE Disposition: HOME/ ROUTINE Instructions: Acute Abdominal Pain (DC), Acute Abdominal Pain (GEN) Additional Instructions: 1 please take ur antibiotics as prescribed 2 please follow up with your GI doctor outpatient on the of this month 3 should your symptoms persist or worsen, please return to the ED 4 DO NOT DRINK ALCOHOL WITH YOUR FLAGYL/METRONIDAZOLE! Referrals: Griselda Heard MD [Primary Care Provider] - <Yi Oliver - Last Filed: 01/28/18 07:31> Provider - Provider Date of Admission: 01/25/18 16:38 Attending physician: Yi Oliver MD Primary care physician: Griselda Heard MD Hospital Course - Lab Results Lab Results: Micro Results 01/26/18 06:20 Blood Blood Culture - Preliminary NO GROWTH AFTER 24 HOURS 01/26/18 06:10 Blood Blood Culture - Preliminary NO GROWTH AFTER 24 HOURS 01/26/18 11:35 Stool C. difficile Antigen & Toxin A,B (M - Final Most Recent Lab Values WBC 4.4 10^3/ul (4.5-11.0) L D 01/26/18 05:00 RBC 4.38 10^6/uL (3.5-6.1) 01/26/18 05:00 Hgb 12.5 g/dL (14.0-18.0) L 01/26/18 05:00 Hct 36.9 % (42.0-52.0) L 01/26/18 05:00 MCV 84.2 fl (80.0-105.0) 01/26/18 05:00 MCH 28.5 pg (25.0-35.0) 01/26/18 05:00 MCHC 33.9 g/dl (31.0-37.0) 01/26/18 05:00 RDW 14.2 % (11.5-14.5) 01/26/18 05:00 Plt Count 190 10^3/uL (120.0-450.0) 01/26/18 05:00 MPV 10.4 fl (7.0-11.0) 01/26/18 05:00 Gran % 55.8 % (50.0-68.0) 01/26/18 05:00 Lymph % (Auto) 30.4 % (22.0-35.0) 01/26/18 05:00 [place] % (Auto) 12.4 % (1.0-6.0) H 01/26/18 05:00 Eos % (Auto) 0.7 % (1.5-5.0) L 01/26/18 05:00 Baso % (Auto) 0.7 % (0.0-3.0) 01/26/18 05:00 Gran # 2.44 (1.4-6.5) 01/26/18 05:00 Lymph # (Auto) 1.3 (1.2-3.4) 01/26/18 05:00 [place] # (Auto) 0.5 (0.1-0.6) 01/26/18 05:00 Eos # (Auto) 0.0 (0.0-0.7) 01/26/18 05:00 Baso # (Auto) 0.03 K/mm3 (0.0-2.0) 01/26/18 05:00 Sodium 136 mmol/L (132-148) 01/27/18 06:00 Potassium 3.1 mmol/L (3.6-5.0) L 01/27/18 06:00 Chloride 102 mmol/L (98-107) 01/27/18 06:00 Carbon Dioxide 26 mmol/L (21-33) 01/27/18 06:00 Anion Gap 12 (10-20) 01/27/18 06:00 BUN 6 mg/dL (7-21) L 01/27/18 06:00 Creatinine 0.9 mg/dl (0.8-1.5) 01/27/18 06:00 Est GFR ( Amer) > 60 01/27/18 06:00 Est GFR (Non-Af Amer) > 60 01/27/18 06:00 Random Glucose 117 mg/dL (70-110) H 01/27/18 06:00 Hemoglobin A1c 5.8 % (4.2-6.5) 01/25/18 18:00 Calcium 9.4 mg/dL (8.4-10.5) 01/27/18 06:00 Phosphorus 4.0 mg/dL (2.5-4.5) 01/27/18 06:00 Magnesium 1.8 mg/dL (1.7-2.2) 01/27/18 06:00 Total Bilirubin 0.4 mg/dL (0.2-1.3) 01/27/18 06:00 AST 53 U/L (17-59) 01/27/18 06:00 ALT 51 U/L (7-56) 01/27/18 06:00 Alkaline Phosphatase 52 U/L (38-126) 01/27/18 06:00 Lactate Dehydrogenase 551 U/L (333-699) 01/25/18 15:30 Total Creatine Kinase 189 U/L (35-230) 01/25/18 15:30 Troponin I < 0.01 ng/mL 01/26/18 06:30 Total Protein 6.9 g/dL (5.8-8.3) 01/27/18 06:00 Albumin 3.8 g/dL (3.0-4.8) 01/27/18 06:00 Globulin 3.1 gm/dL 01/27/18 06:00 Albumin/Globulin Ratio 1.2 (1.1-1.8) 01/27/18 06:00 Triglycerides 979 mg/dL (35-160) H 01/26/18 07:44 Cholesterol 197 mg/dL (130-200) 01/26/18 07:44 LDL Cholesterol Direct < 30 mg/dL (0-129) 01/26/18 07:44 HDL Cholesterol 52 mg/dL (29-60) 01/26/18 07:44 Amylase 67 U/L (35-125) 01/25/18 15:30 Lipase 67 U/L (23-300) 01/25/18 15:30 TSH 3rd Generation 0.88 mIU/mL (0.46-4.68) 01/25/18 18:00 Urine Color Straw (YELLOW) 01/25/18 15:30 Urine Appearance Clear (CLEAR) 01/25/18 15:30 Urine pH 6.0 (4.7-8.0) 01/25/18 15:30 Ur Specific Kite 1.025 (1.005-1.035) 01/25/18 15:30 Urine Protein 30 mg/dL (<30 mg/dL) H 01/25/18 15:30 Urine Glucose (UA) Negative mg/dL (NEGATIVE) 01/25/18 15:30 Urine Ketones Negative mg/dL (NEGATIVE) 01/25/18 15:30 Urine Blood Negative (NEGATIVE) 01/25/18 15:30 Urine Nitrate Negative (NEGATIVE) 01/25/18 15:30 Urine Bilirubin Negative (NEGATIVE) 01/25/18 15:30 Urine Urobilinogen 0.2 E.U./dL (<1 E.U./dL) 01/25/18 15:30 Ur Leukocyte Esterase Negative Georges/uL (NEGATIVE) 01/25/18 15:30 Urine RBC 0 - 2 /hpf (0-2) 01/25/18 15:30 Urine WBC 0 - 2 /hpf (0-6) 01/25/18 15:30 Ur Epithelial Cells 1 - 3 /hpf (0-5) 01/25/18 15:30 Urine Bacteria Few (NEG) 01/25/18 15:30 Stool Occult Blood Positive (NEGATIVE) H 01/26/18 11:35 Stool Leukocytes, Qual Negative (NEGATIVE) 01/26/18 11:35 Urine Opiates Screen Negative (NEGATIVE) 01/25/18 15:30 Urine Methadone Screen Negative (NEGATIVE) 01/25/18 15:30 Ur Barbiturates Screen Negative (NEGATIVE) 01/25/18 15:30 Ur Phencyclidine Scrn Negative (NEGATIVE) 01/25/18 15:30 Ur Amphetamines Screen Negative (NEGATIVE) 01/25/18 15:30 U Benzodiazepines Scrn Negative (NEGATIVE) 01/25/18 15:30 U Oth Cocaine Metabols Positive (NEGATIVE) H 01/25/18 15:30 U Cannabinoids Screen Negative (NEGATIVE) 01/25/18 15:30 Alcohol, Quantitative 66 mg/dL (0-10) H 01/25/18 15:30 Hepatitis A IgM Ab Negative (NEGATIVE) 01/25/18 18:00 Hep Bs Antigen Negative (NEGATIVE) 01/25/18 18:00 Hep B Core IgM Ab Negative (NEGATIVE) 01/25/18 18:00 Hepatitis C Antibody Negative (NEGATIVE) 01/25/18 18:00 Influenza Typ A,B (EIA) Pos for influenza a (NEGATIVE) H 04/01/18 19:57 Attending/Attestation - Attestation I have personally seen and examined this patient.: Yes I have fully participated in the care of the patient.: Yes I have reviewed all pertinent clinical information, including history, physical exam and plan: Yes Notes (Text): 01/28/18 07:26 Attending note; Patient seen and examined with resident. Patient is a 42 year old male with past medical history of cocaine abuse and chronic alcohol abuse who presents with complaint of abdominal pain with nausea , vomiting and diarrhea. CT abd/pelvis which was done about a week ago shows colitis. Treated with NPO, IVF, analgesics and antibiotics. GI evaluation appreciated. C. difficile is negative. Influenza positive. Repeat CT showed resolving colitis. ID evaluation appreciated. Patient will be discharged home with by mouth Flagyl and Vantin. He was counselled on alcohol abstinence. Patient has multiple admissions for the same. Mildly elevated LFTs likely secondary to chronic ETOH abuse. Influenza; patient is afebrile. On Tamiflu. Hypertriglyceridemia; dietary education given. Started on gemfibrozil. Needs repeat lab in 3 months. Upon discharge patient will follow up with Dr Félix Uribe. Diagnosis; Alcohol abuse Hypertriglyceridemia Colitis Influenza A Noncompliance with follow-up 01/28/18 07:31
--- NOTE | 2018-01-27 15:20 | CP.PCM.PN ---
Subjective - Date & Time of Evaluation Date of Evaluation: 01/27/18 Time of Evaluation: 09:45 - Subjective Subjective: No abdominal pain, no nausea, no vomiting, no diarrhea, no fevers. Objective - Vital Signs/Intake and Output Vital Signs (last 24 hours): Temp Pulse Resp BP Pulse Ox 97.8 F 91 H 18 134/93 H 100 01/27/18 08:16 01/27/18 08:16 01/27/18 08:16 01/27/18 08:16 01/27/18 08:16 Intake and Output: 01/27/18 01/27/18 06:59 18:59 Intake Total 720 1080 Balance 720 1080 - Medications Medications: Current Medications Gemfibrozil (Lopid) 600 mg PO BID [facility] Last Admin: 01/27/18 11:20 Dose: 600 mg Heparin Sodium (Porcine) (Heparin) 5,000 units SC Q12 ALEXANDRA PRN Reason: Protocol Last Admin: 01/27/18 11:19 Dose: 5,000 units Cefepime HCl (Maxipime 1gm) 1 gm in 100 mls @ 100 mls/hr IVPB Q8 ALEXANDRA PRN Reason: Protocol Stop: 02/03/18 22:01 Last Admin: 01/27/18 14:08 Dose: 100 mls/hr Metronidazole (Flagyl) 250 mg in 50 mls @ 100 mls/hr IVPB Q8 [facility] PRN Reason: Protocol Stop: 02/03/18 22:01 Last Admin: 01/27/18 14:08 Dose: 100 mls/hr Lorazepam (Ativan) 1 mg IVP Q6H ALEXANDRA PRN Reason: Protocol Last Admin: 01/27/18 11:18 Dose: 1 mg Lorazepam (Ativan) 2 mg IVP Q2H PRN; Protocol PRN Reason: Anxiety Morphine Sulfate (Morphine) 1 mg IVP Q4H PRN PRN Reason: Pain, severe (8-10) Ondansetron HCl (Zofran Inj) 4 mg IVP Q8H PRN PRN Reason: Nausea/Vomiting Oseltamivir Phosphate (Tamiflu Cap) 75 mg PO BID [facility] PRN Reason: Protocol Stop: 01/31/18 20:29 Last Admin: 01/27/18 11:20 Dose: 75 mg Pantoprazole Sodium (Protonix Ec Tab) 40 mg PO 0600 [facility] Last Admin: 01/27/18 11:21 Dose: 40 mg - Labs Labs: 01/26/18 05:00 01/27/18 06:00 - Constitutional Appears: Chronically Ill - Head Exam Head Exam: NORMAL INSPECTION - Respiratory Exam Respiratory Exam: Decreased Breath Sounds - Cardiovascular Exam Cardiovascular Exam: +S1, +S2 - GI/Abdominal Exam GI & Abdominal Exam: Soft. absent: Tenderness Assessment and Plan - Assessment and Plan (Free Text) Plan: Assessment colitis in this patient with history of ethanol abuse systemic viral illness with Influenza A depression anxiety HTN Plan Patient on Cefepime and Flagyl day 2 - can switch to PO Cefpodoxime and Flagyl to complete 5-7 days of therapy complete 5 days of Tamiflu should follow up with GI and PMD as outpatient
[2018-01-27 17:07] VITALS: BP 125/88; PULSE 85; TEMP 98.6; O2SAT 99
--- NOTE | 2018-01-27 19:06 | CARD ---
APPROVED REPORT EXAM: Two-dimensional and M-mode echocardiogram with Doppler and color Doppler. INDICATION Chest Pain 2D DIMENSIONS Left Atrium (2D)3.3 (1.6-4.0cm)IVSd1.1 (0.7-1.1cm) LVDd4.0 (3.9-5.9cm)PWd1.0 (0.7-1.1cm) LVDs2.7 (2.5-4.0cm)FS (%) 31.7 % LVEF (%)60.3 (>50%) M-Mode DIMENSIONS Aortic Root3.10 (2.2-3.7cm)Aortic Cusp Exc.1.90 (1.5-2.0cm) Aortic Valve AoV Peak Xtrczzbj155.0cm/Amarjit Peak GR.10mmHgLVOT Peak Buuzjbnh882.0cm/s LVOT VTI21.50cm Mitral Valve MV E Fpxqzput81.1cm/sMV A Plkzinun38.0cm/sE/A ratio0.9 TDI Lateral E' Peak V10.50cm/sMedial E' Peak V8.38cm/sE/Lateral E'6.6 E/Medial E'8.2 Pulmonary Valve PV Peak Fwjykwwm20.1cm/sPV Peak Grad.2mmHg Tricuspid Valve TR Peak Evnkpwkp013ty/sRAP [id number] Peak Gr.29mmHg [id number] LEFT VENTRICLE The left ventricle is normal size. There is normal left ventricular wall thickness. The left ventricular function is normal. The left ventricular ejection fraction is within the normal range. There is normal LV segmental wall motion. Transmitral Doppler flow pattern is Grade I-abnormal relaxation pattern. RIGHT VENTRICLE The right ventricle is normal size. There is normal right ventricular wall thickness. The right ventricular systolic function is normal. ATRIA The left atrium size is normal. The right atrium size is normal. AORTIC VALVE The aortic valve is not well visualized. No aortic regurgitation is present. There is no aortic valvular stenosis. MITRAL VALVE The mitral valve is normal in structure. There is no mitral valve regurgitation noted. There is no mitral valve stenosis. TRICUSPID VALVE The tricuspid valve is normal in structure. There is mild tricuspid regurgitation. There is mild pulmonary hypertension. GREAT VESSELS The aortic root is normal in size. The IVC is normal in size and collapses >50% with inspiration. PERICARDIAL EFFUSION There is no pericardial effusion. <Conclusion> The left ventricle is normal size. There is normal left ventricular wall thickness. The left ventricular function is normal. The left ventricular ejection fraction is within the normal range. There is normal LV segmental wall motion. Transmitral Doppler flow pattern is Grade I-abnormal relaxation pattern. There is mild tricuspid regurgitation. There is mild pulmonary hypertension.
== END 2018-01-27 18:16 | disposition home or self-care (01) ==
LOC: ED 14:07 → ERH 16:38 → 5RNO 21:15
PROVIDERS: ADMIT Hospitalist; ATTEND Internal Medicine
DX: K52.9 Noninfective gastroenteritis and colitis, unspecified (principal); J10.1 Influenza due to other identified influenza virus with other respiratory manifestations; I10 Essential (primary) hypertension; F41.9 Anxiety disorder, unspecified; F10.10 Alcohol abuse, uncomplicated; Y90.3 Blood alcohol level of 60-79 mg/100 ml; F17.210 Nicotine dependence, cigarettes, uncomplicated; E83.42 Hypomagnesemia; F14.10 Cocaine abuse, uncomplicated; K21.9 Gastro-esophageal reflux disease without esophagitis; F32.9 Major depressive disorder, single episode, unspecified; E78.1 Pure hyperglyceridemia; D64.9 Anemia, unspecified
CPT/HCPCS: 36415; 74177; 80053; 80061; 80074; 80320; 80324; 80345; 80346; 80349; 80353; 80358; 80361; 81001; 82150; 82550; 83036; 83615; 83690; 83735; 83992; 83993; 84100; 84443; 84484; 85025; 87040; 87045; 87086; 87324; 87804; 89055; 93005; 93306; 96361; 96365; 96367; 96368; 96375; 99284; G0328; G0378; J0692; J1644; J2060; J2270; J2405; J2543; J3411; J3475; J7040; Q9967

== ENCOUNTER 2018-02-18 07:48 | Emergency (ER) | payer MEDICAID ==
[2018-02-18 07:49] VITALS: BMI 21.7
[2018-02-18 08:03] VITALS: RESP 18
[2018-02-18] MEDS ORDERED: Sodium Chloride 0.9% 1,000 ML IV STA (08:08)
--- NOTE | 2018-02-18 08:08 | ED PDOC ---
Arrival/HPI - General Chief Complaint: Abdominal Pain Time Seen by Provider: 02/18/18 07:53 Historian: Patient - History of Present Illness Narrative History of Present Illness (Text): 02/18/18 08:05 A 42 year old male, whose past medical history includes alcohol abuse, colitis, hypertension, and anxiety, presents to the emergency department complaining of non-radiating left sided abdominal pain since 06:30 this morning. Patient reports nausea, multiple episodes of non-bilious non-bloody vomiting, and loose stools. He admits to drinking alcohol and using cocaine last night. Patient denies any fever, chills, body aches, chest pain, shortness of breath or any other complaints. 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 on 03/13/18 Time/Duration: Other (06:30 this morning) Symptom Course: Unchanged Quality: Burning Context: Home Past Medical History - Provider Review Nursing Documentation Reviewed: Yes - Past History Past History: No Previous - Infectious Disease Hx of Infectious Diseases: None - Tetanus Immunization Tetanus Immunization: Unknown - Past Medical History Past Medical History: No Previous - Cardiac Hx Cardiac Disorders: Yes Hx Hypertension: Yes - Pulmonary Hx Respiratory Disorders: No Other/Comment: light smoker - Neurological Hx Neurological Disorder: Yes Hx Dizziness: Yes Other/Comment: neuropathy - HEENT Hx HEENT Disorder: No - Renal Hx Renal Disorder: No - Endocrine/Metabolic Hx Endocrine Disorders: No - Hematological/Oncological Hx Blood Disorders: No - Integumentary Hx Dermatological Disorder: No - Musculoskeletal/Rheumatological Hx Musculoskeletal Disorders: Yes (RIGHT FOOT SURGERY WITH RODS AND SCREWS, RIGHT ANKLE FX.) Hx Falls: Yes Hx Fractures: Yes - Gastrointestinal Hx Gastrointestinal Disorders: Yes Hx Gastroesophageal Reflux: Yes - Genitourinary/Gynecological Hx Genitourinary Disorders: No - Psychiatric Hx Psychophysiologic Disorder: Yes Hx Anxiety: Yes Hx Depression: Yes Hx Substance Use: Yes (cocaine occasionally) Other/Comment: ETOH, substance abuse - Past Surgical History Past Surgical History: Non-Contributing - Surgical History Hx Musculoskeletal Surgery: Yes (R foot sx with rods/screws placed) Hx Orthopedic Surgery: Yes - Anesthesia Hx Anesthesia: Yes Hx Anesthesia Reactions: No Hx Malignant Hyperthermia: No - Suicidal Assessment Feels Threatened In Home Enviroment: No Family/Social History - Physician Review Nursing Documentation Reviewed: Yes Family/Social History: No Known Family HX Smoking Status: Light Smoker < 10 Cigarettes Daily Hx Alcohol Use: Yes (2 1/2 pinks of vodka daily) Frequency of alcohol use: Daily Hx Substance Use: Yes (cocaine occasionally) Substance used: marijuana & cocaine Hx Substance Use Treatment: No Allergies/Home Meds Allergies/Adverse Reactions: Allergies No Known Allergies Allergy (Verified 02/18/18 07:57) Review of Systems - Physician Review All systems were reviewed & negative as marked: Yes - Review of Systems Constitutional: absent: Fevers, Night Sweats Respiratory: absent: SOB Cardiovascular: absent: Chest Pain Gastrointestinal: Abdominal Pain, Stool Changes (loose stool), Nausea, Vomiting Musculoskeletal: absent: Myalgias Physical Exam Vital Signs Reviewed: Yes Vital Signs Temp Pulse Resp BP Pulse Ox 02/18/18 10:35 98 F 80 18 139/82 99 02/18/18 07:59 98.3 F 99 H 18 133/98 H 100 Temperature: Afebrile Blood Pressure: Hypertensive Pulse: Tachycardic Respiratory Rate: Normal Appearance: Positive for: Well-Appearing, Non-Toxic, Comfortable Pain Distress: None Mental Status: Positive for: Alert and Oriented X 3 - Systems Exam Head: Present: Atraumatic, Normocephalic Pupils: Present: PERRL Extroacular Muscles: Present: EOMI Conjunctiva: Present: Normal Mouth: Present: Moist Mucous Membranes Respiratory/Chest: Present: Clear to Auscultation, Good Air Exchange. No: Respiratory Distress, Accessory Muscle Use Cardiovascular: Present: Regular Rate and Rhythm, Normal S1, S2. No: Murmurs Abdomen: Present: Tenderness (Left upper/lower quadrant and epigastric tenderness to palpation). No: Distention, Peritoneal Signs, Rebound, Guarding Upper Extremity: Present: Normal Inspection. No: Cyanosis, Edema Lower Extremity: Present: Normal Inspection. No: Edema Neurological: Present: GCS=15, CN II-XII Intact, Speech Normal Skin: Present: Warm, Dry, Normal Color. No: Rashes Psychiatric: Present: Alert, Oriented x 3, Normal Insight, Normal Concentration Medical Decision Making ED Course and Treatment: 02/18/18 08:08 Impression: A 42 year old male with left/epigastric abdominal pain, nausea, vomiting, and loose stool Differential Diagnosis included but are not limited to: Colitis vs. Gastritis vs. Pancreatitis Plan: -- Labs -- Pepcid, Ativan, Zofran and IV fluids -- Reassess and disposition Progress Notes: 02/18/18 10:25 On re-evaluation, patient feels better. States his symptoms have resolved. Abdomen is soft, NT, ND. Tolerating PO fluids. 02/18/18 11:25 I have discussed the results and plan with the patient, who expresses understanding. Patient in agreement with plan to be discharged home. Patient is stable for discharge. Patient was instructed to follow up with physician or return if symptoms worsen or new concerning symptoms arise. - Lab Interpretations Lab Results: 02/18/18 09:00 02/18/18 09:00 Lab Results 02/18/18 09:00: Alcohol, Quantitative < 10 02/18/18 09:00: Sodium 141, Potassium 3.5 L, Chloride 102, Carbon Dioxide 23, Anion Gap 19, BUN 11, Creatinine 0.9, Est GFR ( Amer) > 60, Est GFR (Non- Af Amer) > 60, Random Glucose 86, Calcium 9.4, Total Bilirubin 0.5, AST 58, ALT 55, Alkaline Phosphatase 55, Total Protein 7.5, Albumin 4.8, Globulin 2.7, Albumin/Globulin Ratio 1.8, Lipase 58 02/18/18 09:00: PT 11.2, INR 0.97, APTT 29.1 02/18/18 09:00: WBC 4.6, RBC 3.96, Hgb 11.1 L, Hct 33.4 L, MCV 84.3, MCH 28.0, MCHC 33.2, RDW 15.1 H, Plt Count 224, MPV 10.5, Gran % 67.9, Lymph % (Auto) 27.0 , [place] % (Auto) 4.4, Eos % (Auto) 0.0 L, Baso % (Auto) 0.7, Gran # 3.12, Lymph # (Auto) 1.2, [place] # (Auto) 0.2, Eos # (Auto) 0.0, Baso # (Auto) 0.03 I have reviewed the lab results: Yes - Medication Orders Current Medication Orders: Discontinued Medications Famotidine (Pepcid) 20 mg IVP STAT STA Stop: 02/18/18 08:09 Last Admin: 02/18/18 09:21 Dose: 20 mg IVP Administration Document 02/18/18 09:21 KESHIA (Rec: 02/18/18 09:21 KESHIA [id number]) Charges for Administration # of IVP Administrations 1 Sodium Chloride (Sodium Chloride 0.9%) 1,000 mls @ 1,000 mls/hr IV .Q1H STA Stop: 02/18/18 09:07 Last Admin: 02/18/18 09:59 Dose: 1,000 mls/hr eMAR Start Stop Document 02/18/18 09:59 SZRodolfo (Rec: 02/18/18 09:59 [id number]) Intravenous Solution Start Date 02/18/18 Start Time 09:59 End Date 02/18/18 End time 10:59 Total Infusion Time 60 Lorazepam (Ativan) 2 mg IVP ONCE ONE PRN Reason: Protocol Stop: 02/18/18 08:09 Last Admin: 02/18/18 09:21 Dose: 2 mg IVP Administration Document 02/18/18 09:21 KESHIA (Rec: 02/18/18 09:21 KESHIA [id number]) Charges for Administration # of IVP Administrations 1 Ondansetron HCl (Zofran Inj) 4 mg IVP STAT STA Stop: 02/18/18 08:09 Last Admin: 02/18/18 09:59 Dose: 4 mg IVP Administration Document 02/18/18 09:59 SZA (Rec: 02/18/18 09:59 SZA [id number]) Charges for Administration # of IVP Administrations 1 Potassium Chloride (K-Dur 20 Meq Er Tab) 40 meq PO STAT STA Stop: 02/18/18 09:48 Last Admin: 02/18/18 10:00 Dose: 40 meq - Scribe Statement The provider has reviewed the documentation as recorded by the Scribe Hui Recinos Provider Scribe Attestation: All medical record entries made by the Scribe were at my direction and personally dictated by me. I have reviewed the chart and agree that the record accurately reflects my personal performance of the history, physical exam, medical decision making, and the department course for this patient. I have also personally directed, reviewed, and agree with the discharge instructions and disposition. Disposition/Present on Arrival - Present on Arrival Any Indicators Present on Arrival: No History of DVT/PE: No History of Uncontrolled Diabetes: No Urinary Catheter: No History of Decub. Ulcer: No History Surgical Site Infection Following: Orthopedic Procedures - Disposition Have Diagnosis and Disposition been Completed?: Yes Diagnosis: Abdominal pain Disposition: HOME/ ROUTINE Disposition Time: 11:25 Condition: IMPROVED Discharge Instructions (ExitCare): Acute Abdomen (Belly Pain) Additional Instructions: Mr Craig, thank you for letting us take care of you today. Your provider was Dr. Marino. You were treated for Abdominal Pain. The emergency medical care you received today was directed at your acute symptoms. If you were prescribed any medication, please fill it and take as directed. It may take several days for your symptoms to resolve. Return to the Emergency Department if your symptoms worsen, do not improve, or if you have any other problems. Please contact your doctor or call one of the physicians/clinics you have been referred to that are listed on the Patient Visit Information form that is included in your discharge packet. Bring any paperwork you were given at discharge with you along with any medications you are taking to your follow up visit. Our treatment cannot replace ongoing medical care by a primary care provider (PCP) outside of the emergency department. Thank you for allowing the [facility] team to be part of your care today. If you had an X-Ray or CT scan: A Radiologist will review the ED reading if any change in treatment is needed we will contact you. If you had a blood, urine, or wound culture: It will take several days for the results, if any change in treatment is needed we will contact you. If you had an STI test: It will take 48 hours for the results. Please call after 1 week if you have not heard back. Prescriptions: Aluminum Hydroxide/Magnesium H [Maalox 30 ml] 30 ml PO Q8 #1 bottle Ranitidine HCl [Zantac] 150 mg PO BID PRN #30 tablet PRN Reason: Pain, Mild (1-3) [place] [facility] [place] [facility] [place] - Follow up with primary Forms: [employer] ([place]ican), WORK NOTE
[2018-02-18 09:18] LABS: BASO # 0.03 K/mm3 (0.0-2.0); BASO % 0.7 % (0.0-3.0); GRAN # 3.12 (1.4-6.5); GRAN % 67.9 % (50.0-68.0); HEMOGLOBIN 11.1 g/dL (14.0-18.0); LYMPH # 1.2 (1.2-3.4); MEAN CELL VOLUME 84.3 fl (80.0-105.0); MEAN CORPUSCULAR HGB CONC 33.2 g/dl (31.0-37.0); MEAN PLATELET VOLUME 10.5 fl (7.0-11.0); MONO # 0.2 (0.1-0.6); MONO % 4.4 % (1.0-6.0); RBC 3.96 10^6/uL (3.5-6.1); RED CELL DISTRIBUTION WIDTH 15.1 % (11.5-14.5); WHITE BLOOD COUNT 4.6 10^3/ul (4.5-11.0)
[2018-02-18 09:36] LABS: INR 0.97 (0.93-1.08); PARTIAL THROMBOPLASTIN TIME 29.1 Seconds (25.1-36.5); PROTHROMBIN TIME 11.2 SECONDS (9.4-12.5)
[2018-02-18 09:38] LABS: ALB/GLOB RATIO 1.8 (1.1-1.8); ALBUMIN 4.8 g/dL (3.0-4.8); ALT/SGPT 55 U/L (7-56); AST/SGOT 58 U/L (17-59); BLOOD UREA NITROGEN 11 mg/dL (7-21); CALCIUM 9.4 mg/dL (8.4-10.5); GFR AFRICAN-AMERICAN > 60; GFR NON-AFRICAN AMERICAN > 60; LIPASE 58 U/L (23-300)
[2018-02-18] MEDS ORDERED: Potassium Chloride 20 mEq ER Tab PO STA (09:47)
[2018-02-18 11:21] VITALS: BP 139/82; PULSE 80; TEMP 98; O2SAT 99
== END 2018-02-18 11:30 | disposition home or self-care (01) ==
LOC: ED 07:48
DX: R10.9 Unspecified abdominal pain (principal); I10 Essential (primary) hypertension; K21.9 Gastro-esophageal reflux disease without esophagitis; F17.210 Nicotine dependence, cigarettes, uncomplicated
CPT/HCPCS: 80053; 80320; 83690; 85025; 85610; 85730; 96361; 96374; 96375; 99284; J2060; J2405; J7040

== ENCOUNTER 2018-02-28 07:51 | Emergency (ER) | payer MEDICAID ==
[2018-02-28 07:52] VITALS: BMI 21.7
--- NOTE | 2018-02-28 08:08 | ED PDOC ---
Arrival/HPI - General Time Seen by Provider: 02/28/18 07:54 Historian: Patient - History of Present Illness Narrative History of Present Illness (Text): 02/28/18 08:06 A 42 year old male well known to the ER, whose past medical history includes alcohol abuse, colitis, hypertension, and anxiety, presents to the emergency department complaining of non-bloody non-bilious vomiting since this morning. Patient reports chronic abdominal pain which worsened yesterday. He notes radiating pain to his chest, which he describes as tightness. Patient admits to drinking alcohol daily, states his last drink was yesterday night. Patient has a history of anxiety and reports he has not taken his medication for the past few days. Patient denies any trauma, fever, chills, diarrhea, shortness of breath, headache, dizziness or any other complaints. 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)) Context: Home Past Medical History - Provider Review Nursing Documentation Reviewed: Yes - Past History Past History: No Previous - Infectious Disease Hx of Infectious Diseases: None - Tetanus Immunization Tetanus Immunization: Unknown - Past Medical History Past Medical History: No Previous - Cardiac Hx Cardiac Disorders: Yes Hx Hypertension: Yes - Pulmonary Hx Respiratory Disorders: No Other/Comment: light smoker - Neurological Hx Neurological Disorder: Yes Hx Dizziness: Yes Other/Comment: neuropathy - HEENT Hx HEENT Disorder: No - Renal Hx Renal Disorder: No - Endocrine/Metabolic Hx Endocrine Disorders: No - Hematological/Oncological Hx Blood Disorders: No - Integumentary Hx Dermatological Disorder: No - Musculoskeletal/Rheumatological Hx Musculoskeletal Disorders: Yes (RIGHT FOOT SURGERY WITH RODS AND SCREWS, RIGHT ANKLE FX.) Hx Falls: Yes Hx Fractures: Yes - Gastrointestinal Hx Gastrointestinal Disorders: Yes Hx Gastroesophageal Reflux: Yes - Genitourinary/Gynecological Hx Genitourinary Disorders: No - Psychiatric Hx Psychophysiologic Disorder: Yes Hx Anxiety: Yes Hx Depression: Yes Hx Substance Use: Yes (cocaine occasionally) Other/Comment: ETOH, substance abuse - Past Surgical History Past Surgical History: Non-Contributing - Surgical History Hx Musculoskeletal Surgery: Yes (R foot sx with rods/screws placed) Hx Orthopedic Surgery: Yes - Anesthesia Hx Anesthesia: Yes Hx Anesthesia Reactions: No Hx Malignant Hyperthermia: No - Suicidal Assessment Feels Threatened In Home Enviroment: No Family/Social History - Physician Review Nursing Documentation Reviewed: Yes Family/Social History: No Known Family HX Smoking Status: Light Smoker < 10 Cigarettes Daily Hx Alcohol Use: Yes (2 1/2 pinks of vodka daily) Hx Substance Use: Yes (cocaine occasionally) Substance used: marijuana & cocaine Hx Substance Use Treatment: No Allergies/Home Meds Allergies/Adverse Reactions: Allergies No Known Allergies Allergy (Verified 02/28/18 08:05) Review of Systems - Review of Systems Constitutional: absent: Fatigue, Fevers, Other Respiratory: absent: SOB Cardiovascular: Chest Pain. absent: Edema, Calf Pain, RUBI Gastrointestinal: Abdominal Pain, Vomiting. absent: Diarrhea, Hematochezia, Hematemesis Genitourinary Male: absent: Frequency Musculoskeletal: absent: Neck Pain Neurological: absent: Headache, Dizziness Endocrine: absent: Polyuria Hemo/Lymphatic: absent: Easy Bleeding Psychiatric: Anxiety. absent: Depression, Suicidal Ideation Physical Exam - Physical Exam Narrative Physical Exam (Text): Head: Atraumatic. Normocephalic. Eyes: PERRL. EOMI. Conjunctivae are not pale. ENT: Mucous membranes are moist and intact. Oropharynx is clear and symmetric. Neck: Supple. Full ROM. No JVD. No lymphadenopathy. Cardiovascular: Regular rate. Regular rhythm. No murmurs, rubs, or gallops. Distal pulses are 2+ and symmetric. Pulmonary/Chest: No evidence of respiratory distress. Clear to auscultation bilaterally. No wheezing, rales or rhonchi. Palpable pain to lower chest wall no crepitus or erythema. Abdominal: Soft and non-distended. Mild tenderness to epigastric region and left upper quadrant. No rebound, guarding, or rigidity. No organomegaly. Good bowel sounds. Back: No CVA tenderness. Extremities: No edema. No cyanosis. No clubbing. Full range of motion in all extremities. No calf tenderness. Skin: Skin is warm and dry. No petechiae. No purpura. Neurological: Alert, awake, and oriented to person, place, time, and situation. Normal speech. Appears anxious. Not hyperreflexive. No focal motor or sensory deficits. No slurred speech. Steady gait. Psychiatric: Good eye contact. Normal interaction, affect, and behavior. Reports anxiety. Denies suicidal or homicidal ideation. Vital Signs Reviewed: Yes Vital Signs Temp Pulse Resp BP Pulse Ox 02/28/18 14:23 98 F 84 18 148/86 96 05/04/18 10:08 80 16 146/95 H 97 02/28/18 08:07 98.1 F 97 H 19 161/109 H 98 Temperature: Afebrile Appearance: Positive for: Well-Appearing, Non-Toxic, Other (Anxious) Pain Distress: Mild Mental Status: Positive for: Alert and Oriented X 3 Medical Decision Making ED Course and Treatment: 02/28/18 08:06 Impression: A 42 year old male with vomiting and abdominal pain radiating to chest. Patient appears anxious. Differential Diagnosis included but are not limited to: Anxiety vs. Withdrawal vs. Colitis vs. Pancreatitis vs. Gastritis vs. CAD Plan: -- Chest xray -- EKG -- Labs -- Urinalysis -- IV fluids, Zofran, Pepcid and Ativan -- Reassess and disposition Progress Notes: Current presentation similar to past episodes. Chest pain is palpable and radiates from abdomen. Unlikely cardiac related based on history and exam. Plan is to give IV fluids, Zofran, Pepcid and Ativan. Will monitor in the emergency room for withdrawal. Report Date : 02/28/2018 08:51:21 Procedure: Chest xray Dictator : Nathaniel Ho MD IMPRESSION: No active disease. 02/28/18 14:16 On re-examination, patient feels better. He states his abdominal pain has resolved. Patient is not hypertensive, tachycardic or tremulous. Patient is able to tolerate oral intake. Patient denies any chest pain, shortness of breath , suicidal ideation or homicidal ideation. Advised and discussed the risk of excessive alcohol use. Patient wishing to leave the emergency room, will discharge home. I reviewed recent echocardiogram. He denies depression. He is not tremulous. Labs reviewed with patient in laymen's terms. Risks of alcohol abuse, cocaine abuse reviewed with patient, he expresses understanding. 02/28/18 19:04 - Lab Interpretations Lab Results: 02/28/18 08:19 02/28/18 08:19 Lab Results 02/28/18 10:00: Urine Opiates Screen Negative, Urine Methadone Screen Negative, Ur Barbiturates Screen Negative, Ur Phencyclidine Scrn Negative, Ur Amphetamines Screen Negative, U Benzodiazepines Scrn Negative, U Oth Cocaine Metabols Positive H, U Cannabinoids Screen Negative 02/28/18 10:00: Urine Color Yellow, Urine Appearance Sl cloudy, Urine pH 6.0, Ur Specific [place] >= 1.030, Urine Protein 30 H, Urine Glucose (UA) Negative, Urine Ketones Trace H, Urine Blood Negative, Urine Nitrate Negative, Urine Bilirubin Negative, Urine Urobilinogen 0.2, Ur Leukocyte Esterase Negative, Urine RBC Negative, Urine WBC 1 - 3, Urine Bacteria Few 02/28/18 08:19: Alcohol, Quantitative 31 H 02/28/18 08:19: Salicylates < 1 L, Acetaminophen < 10.0 L 02/28/18 08:19: Sodium 145, Potassium 3.4 L, Chloride 104, Carbon Dioxide 20 L, Anion Gap 24 H, BUN 15, Creatinine 1.0, Est GFR ( Amer) > 60, Est GFR ( Non-Af Amer) > 60, Random Glucose 119 H, Calcium 9.4, Magnesium 1.8, Total Bilirubin 0.3, AST 82 H D, ALT 65 H, Alkaline Phosphatase 58, Lactate Dehydrogenase 552, Total Creatine Kinase 617 H, CK-MB (CK-2) 3.8 H, CK-MB (CK-2 ) % Cancelled, Troponin I < 0.01, Total Protein 8.1, Albumin 5.1 H, Globulin 3.1 , Albumin/Globulin Ratio 1.6, Amylase 84, Lipase 127 02/28/18 08:19: PT 10.3, INR 0.90 L, APTT 26.8 02/28/18 08:19: WBC 3.0 L D, RBC 4.18, Hgb 11.9 L, Hct 35.7 L, MCV 85.4, MCH 28.5, MCHC 33.3, RDW 15.7 H, Plt Count 190, MPV 10.4, Gran % 51.0, Lymph % (Auto ) 38.9 H, [place] % (Auto) 8.8 H, Eos % (Auto) 1.0 L, Baso % (Auto) 0.3, Gran # 1.51, Lymph # (Auto) 1.2, [place] # (Auto) 0.3, Eos # (Auto) 0.0, Baso # (Auto) 0.01 I have reviewed the lab results: Yes - RAD Interpretation Radiology Orders: 02/28/18 08:12 CHEST PORTABLE [RAD] Stat - EKG Interpretation EKG Interpretation (Text): 02/28/18 19:02 EKG at 0816 normal sinus rhythm rate of 88 with lvh, no acute changes when compared to previous Interpreted by ED Physician: Yes Type: 12 lead EKG - Medication Orders Current Medication Orders: Discontinued Medications Chlordiazepoxide (Librium) 50 mg PO STAT STA PRN Reason: Protocol Stop: 02/28/18 12:34 Last Admin: 02/28/18 12:53 Dose: 50 mg Famotidine (Pepcid 20mg/50ml Premix) 20 mg IVPB STAT STA Stop: 02/28/18 08:39 Last Admin: 02/28/18 09:17 Dose: 20 mg eMAR Start Stop Document 02/28/18 09:17 SRE (Rec: 02/28/18 09:17 SRE [id number]) Intravenous Solution Start Date 02/28/18 Start Time 09:17 End Date 02/28/18 End time 10:00 Total Infusion Time 43 Sodium Chloride (Sodium Chloride 0.9%) 1,000 mls @ 1,000 mls/hr IV .Q1H STA Stop: 02/28/18 09:12 Last Admin: 02/28/18 08:36 Dose: 1,000 mls/hr eMAR Start Stop Document 02/28/18 08:36 SRE (Rec: 02/28/18 08:36 SRE [id number]) Intravenous Solution Start Date 02/28/18 Start Time 09:20 End Date 02/28/18 End time 10:20 Total Infusion Time 60 Lorazepam (Ativan) 1 mg IVP ONCE ONE Stop: 02/28/18 08:14 Last Admin: 02/28/18 08:35 Dose: 1 mg IVP Administration Document 02/28/18 08:35 SRE (Rec: 02/28/18 08:35 SRE [id number]) Charges for Administration # of IVP Administrations 1 Ondansetron HCl (Zofran Inj) 4 mg IVP ONCE ONE Stop: 02/28/18 08:14 Last Admin: 02/28/18 08:35 Dose: 4 mg IVP Administration Document 02/28/18 08:35 SRE (Rec: 02/28/18 08:35 SRE [id number]) Charges for Administration # of IVP Administrations 1 Potassium Chloride (K-Dur 20 Meq Er Tab) 20 meq PO STAT STA Stop: 02/28/18 09:39 Last Admin: 02/28/18 10:18 Dose: 20 meq - Scribe Statement The provider has reviewed the documentation as recorded by the Ruth Recinos Provider Scribe Attestation: All medical record entries made by the Scribe were at my direction and personally dictated by me. I have reviewed the chart and agree that the record accurately reflects my personal performance of the history, physical exam, medical decision making, and the department course for this patient. I have also personally directed, reviewed, and agree with the discharge instructions and disposition. Disposition/Present on Arrival - Present on Arrival Any Indicators Present on Arrival: No History of DVT/PE: No History of Uncontrolled Diabetes: No Urinary Catheter: No History Surgical Site Infection Following: Orthopedic Procedures - Disposition Have Diagnosis and Disposition been Completed?: Yes Diagnosis: Abdominal pain, Anxiety, Alcohol abuse Disposition: HOME/ ROUTINE Disposition Time: 14:16 Patient Plan: Discharge Condition: GOOD Discharge Instructions (ExitCare): Anxiety, Adult (DC), Acute Abdomen (Belly Pain), Adult (DC) Additional Instructions: For any fevers, headaches, chest pain, shortness of breath, return of abdominal pain, any bloody urine or stool, any shaking or tremors, any unsteadiness, any leg pain or swelling, any persistent or worsening of symptoms, get rechecked. Abstain from excessive alcohol use. Risks of excessive alcohol use have been reviewed with you. Follow-up with your doctor to monitor liver tests and symptoms. For any chest pain or shortness of breath return to ER immediately. Prescriptions: Pantoprazole Sodium [Protonix] 20 mg PO DAILY #10 ect Forms: [facility] (Welsh)
[2018-02-28] MEDS ORDERED: Sodium Chloride 0.9% 1,000 ML IV STA (08:13)
[2018-02-28 08:24] LABS: BASO # 0.01 K/mm3 (0.0-2.0); BASO % 0.3 % (0.0-3.0); GRAN # 1.51 (1.4-6.5); HEMOGLOBIN 11.9 g/dL (14.0-18.0); LYMPH # 1.2 (1.2-3.4); LYMPH % 38.9 % (22.0-35.0); MEAN CELL VOLUME 85.4 fl (80.0-105.0); MEAN CORPUSCULAR HEMOGLOBIN 28.5 pg (25.0-35.0); MEAN CORPUSCULAR HGB CONC 33.3 g/dl (31.0-37.0); MEAN PLATELET VOLUME 10.4 fl (7.0-11.0); MONO # 0.3 (0.1-0.6); MONO % 8.8 % (1.0-6.0); RBC 4.18 10^6/uL (3.5-6.1); RED CELL DISTRIBUTION WIDTH 15.7 % (11.5-14.5)
[2018-02-28] MEDS ORDERED: Famotidine 20mg/50ml Premix IVPB STA (08:38)
[2018-02-28 08:40] LABS: ACETAMINOPHEN < 10.0 ug/ml (10.0-20.0); SALICYLATE < 1 mg/dL (2.0-20.0)
[2018-02-28 08:41] LABS: PROTHROMBIN TIME 10.3 SECONDS (9.4-12.5)
[2018-02-28 08:42] LABS: INR 0.9 (0.93-1.08); PARTIAL THROMBOPLASTIN TIME 26.8 Seconds (25.1-36.5)
[2018-02-28 08:43] LABS: ALB/GLOB RATIO 1.6 (1.1-1.8); ALBUMIN 5.1 g/dL (3.0-4.8); ALT/SGPT 65 U/L (7-56); AMYLASE 84 U/L (35-125); AST/SGOT 82 U/L (17-59); BLOOD UREA NITROGEN 15 mg/dL (7-21); CALCIUM 9.4 mg/dL (8.4-10.5); GFR AFRICAN-AMERICAN > 60; GFR NON-AFRICAN AMERICAN > 60; LIPASE 127 U/L (23-300)
[2018-02-28 08:52] LABS: TROPONIN I < 0.01 ng/mL
--- NOTE | 2018-02-28 08:53 | RAD ---
HISTORY: chest pain COMPARISON: 06/01/2017 FINDINGS: LUNGS: No active pulmonary disease. PLEURA: No significant pleural effusion identified, no pneumothorax apparent. CARDIOVASCULAR: Normal. OSSEOUS STRUCTURES: No significant abnormalities. VISUALIZED UPPER ABDOMEN: Normal. OTHER FINDINGS: None. IMPRESSION: No active disease.
[2018-02-28 08:56] LABS: CK-MB 3.8 ng/mL (0.0-3.6)
[2018-02-28] MEDS ORDERED: Potassium Chloride 20 mEq ER Tab PO STA (09:38)
[2018-02-28 10:13] LABS: URINE BILIRUBIN NEGATIVE (NEGATIVE); URINE BLOOD NEGATIVE (NEGATIVE); URINE GLUCOSE (UA) NEGATIVE (NEGATIVE); URINE LEUKOCYTE ESTERASE NEGATIVE Leu/uL (NEGATIVE); URINE PROTEIN 30 mg/dL (<30 mg/dL); URINE UROBILINOGEN 0.2 E.U./dL (<1 E.U./dL)
[2018-02-28 10:14] LABS: URINE APPEARANCE SL CLOUDY (CLEAR); URINE COLOR YELLOW (YELLOW)
[2018-02-28 10:21] LABS: URINE BACTERIA FEW (NEG); URINE RBC NEGATIVE /hpf (0-2)
[2018-02-28 10:36] LABS: BARBITURATES, UR NEGATIVE (NEGATIVE); BENZODIAZEPINES, UR NEGATIVE (NEGATIVE); OPIATES, UR NEGATIVE (NEGATIVE); PHENCYCLIDINE, UR NEGATIVE (NEGATIVE)
[2018-02-28 14:24] VITALS: BP 148/86; PULSE 84; RESP 18; TEMP 98; O2SAT 96
--- NOTE | 2018-02-28 18:53 | CARD ---
APPROVED REPORT EKG Measurement Heart [id number] <Conclusion> Normal sinus rhythm Moderate voltage criteria for LVH, may be normal variant Borderline ECG
== END 2018-02-28 14:25 | disposition home or self-care (01) ==
LOC: ED 07:51
DX: F41.9 Anxiety disorder, unspecified (principal); R10.9 Unspecified abdominal pain; F10.10 Alcohol abuse, uncomplicated; Y90.1 Blood alcohol level of 20-39 mg/100 ml; I10 Essential (primary) hypertension; K21.9 Gastro-esophageal reflux disease without esophagitis; F17.210 Nicotine dependence, cigarettes, uncomplicated
CPT/HCPCS: 71045; 80053; 80320; 80324; 80329; 80345; 80346; 80349; 80353; 80358; 80361; 81001; 82150; 82550; 82553; 83615; 83690; 83735; 83992; 84484; 85025; 85610; 85730; 93005; 96365; 96375; 99284; J2060; J2405; J7040

== ENCOUNTER 2018-03-04 08:56 | Emergency (ER) | payer MEDICAID ==
[2018-03-04 09:05] VITALS: BMI 29.8
[2018-03-04] MEDS ORDERED: Sodium Chloride 0.9% 1,000 ML IV STA (09:05)
[2018-03-04 09:09] VITALS: RESP 18; TEMP 98.3
--- NOTE | 2018-03-04 09:13 | ED PDOC ---
Arrival/HPI - General Time Seen by Provider: 03/04/18 09:04 Historian: Patient - History of Present Illness Narrative History of Present Illness (Text): 03/04/18 09:07 42yo male well known to the emergency department with PMHx of alcohol abuse, colitis, hypertension and anxiety who was bib EMS for diarrhea, nausea, nonbloody/bilious vomiting, palpitation since early this morning. He states he usually takes his anxiolytics every morning, but didn't take it this morning because he couldn't keep anything down. He admits to drinking alcohol daily. states his last alcohol intake was last night. This is similar to his previous anxiety symptoms. He denies chest pain, SOB, diaphoresis, dizziness, abdominal pain, sick contact, travel, fever, chills, any other complaint. Past Medical History - Provider Review Nursing Documentation Reviewed: Yes - Past History Past History: No Previous - Infectious Disease Hx of Infectious Diseases: None - Tetanus Immunization Tetanus Immunization: Unknown - Past Medical History Past Medical History: No Previous - Cardiac Hx Cardiac Disorders: Yes Hx Hypertension: Yes - Pulmonary Hx Respiratory Disorders: No Other/Comment: light smoker - Neurological Hx Neurological Disorder: Yes Hx Dizziness: Yes Other/Comment: neuropathy - HEENT Hx HEENT Disorder: No - Renal Hx Renal Disorder: No - Endocrine/Metabolic Hx Endocrine Disorders: No - Hematological/Oncological Hx Blood Disorders: No - Integumentary Hx Dermatological Disorder: No - Musculoskeletal/Rheumatological Hx Musculoskeletal Disorders: Yes (RIGHT FOOT SURGERY WITH RODS AND SCREWS, RIGHT ANKLE FX.) Hx Falls: Yes Hx Fractures: Yes - Gastrointestinal Hx Gastrointestinal Disorders: Yes Hx Gastroesophageal Reflux: Yes - Genitourinary/Gynecological Hx Genitourinary Disorders: No - Psychiatric Hx Psychophysiologic Disorder: Yes Hx Anxiety: Yes Hx Depression: Yes Hx Substance Use: Yes (cocaine occasionally) Other/Comment: ETOH, substance abuse - Past Surgical History Past Surgical History: Non-Contributing - Surgical History Hx Musculoskeletal Surgery: Yes (R foot sx with rods/screws placed) Hx Orthopedic Surgery: Yes - Anesthesia Hx Anesthesia: Yes Hx Anesthesia Reactions: No Hx Malignant Hyperthermia: No - Suicidal Assessment Feels Threatened In Home Enviroment: No Family/Social History - Physician Review Nursing Documentation Reviewed: Yes Family/Social History: Unknown Family HX Smoking Status: Light Smoker < 10 Cigarettes Daily Hx Alcohol Use: Yes (2 1/2 pinks of vodka daily) Hx Substance Use: Yes (cocaine occasionally) Substance used: marijuana & cocaine Hx Substance Use Treatment: No Allergies/Home Meds Allergies/Adverse Reactions: Allergies No Known Allergies Allergy (Verified 02/28/18 08:05) Review of Systems - Physician Review All systems were reviewed & negative as marked: Yes - Review of Systems Constitutional: Normal Eyes: Normal ENT: Normal Respiratory: Normal Cardiovascular: Palpitations. absent: Chest Pain, Edema, Calf Pain, RUBI, Orthopnea Gastrointestinal: Diarrhea, Nausea, Vomiting. absent: Abdominal Pain, Constipation, Hematochezia, Hematemesis Genitourinary Male: Normal Musculoskeletal: Normal Skin: Normal Neurological: Normal Endocrine: Normal Hemo/Lymphatic: Normal Psychiatric: Normal Physical Exam Vital Signs Reviewed: Yes Vital Signs Temp Pulse Resp BP Pulse Ox 03/04/18 12:54 74 18 133/82 99 03/04/18 11:20 78 18 121/85 98 03/04/18 09:08 98.3 F 85 18 119/94 H 99 Temperature: Afebrile Blood Pressure: Normal Pulse: Regular Respiratory Rate: Normal Appearance: Positive for: Well-Appearing, Non-Toxic, Comfortable Pain Distress: None Mental Status: Positive for: Alert and Oriented X 3 - Systems Exam Head: Present: Atraumatic, Normocephalic Pupils: Present: PERRL Extroacular Muscles: Present: EOMI Conjunctiva: Present: Normal Mouth: Present: Moist Mucous Membranes Neck: Present: Normal Range of Motion Respiratory/Chest: Present: Clear to Auscultation, Good Air Exchange. No: Respiratory Distress, Accessory Muscle Use, Wheezes, Decreased Breath Sounds, Rales, Retracting, Rhonchi, Tachypneic Cardiovascular: Present: Regular Rate and Rhythm, Normal S1, S2. No: Murmurs Abdomen: No: Tenderness, Distention, Peritoneal Signs Back: Present: Normal Inspection Upper Extremity: Present: Normal Inspection. No: Cyanosis, Edema Lower Extremity: Present: Normal Inspection. No: Edema Neurological: Present: GCS=15, CN II-XII Intact, Speech Normal Skin: Present: Warm, Dry, Normal Color. No: Rashes Psychiatric: Present: Alert, Oriented x 3, Normal Insight, Normal Concentration Medical Decision Making ED Course and Treatment: 03/04/18 18:15 PT presented for stated history. He was leukopenic and comparable with his previous labs. He was treated with medication and hydration in ED and on re evaluation, states his symptoms resolved. He was able to tolerate PO challenge. He was DC home and referred to his PMD. - Lab Interpretations Lab Results: 03/04/18 09:20 03/04/18 09:20 Lab Results 03/04/18 11:15: Urine Color Yellow, Urine Appearance Clear, Urine pH 6.5, Ur Specific [place] 1.015, Urine Protein Trace H, Urine Glucose (UA) Negative, Urine Ketones Negative, Urine Blood Negative, Urine Nitrate Negative, Urine Bilirubin Negative, Urine Urobilinogen 0.2, Ur Leukocyte Esterase Negative, Urine RBC 0 - 2, Urine WBC 0 - 2, Ur Epithelial Cells 0 - 2, Urine Bacteria Mod 03/04/18 09:20: Alcohol, Quantitative 67 H 03/04/18 09:20: Sodium 146, Potassium 3.6, Chloride 105, Carbon Dioxide 23, Anion Gap 22 H, BUN 19, Creatinine 1.2, Est GFR ( Amer) > 60, Est GFR ( Non-Af Amer) > 60, Random Glucose 99, Calcium 9.6, Magnesium 1.3 L, Total Bilirubin 0.1 L, AST 57, ALT 55, Alkaline Phosphatase 52, Lactate Dehydrogenase 562, Total Creatine Kinase 579 H, CK-MB (CK-2) 3.4, CK-MB (CK-2) % Cancelled, Troponin I < 0.01, Total Protein 7.6, Albumin 4.8, Globulin 2.8, Albumin/ Globulin Ratio 1.7, Lipase 152 03/04/18 09:20: PT 11.1, INR 0.97, APTT 27.6 03/04/18 09:20: WBC 2.9 L*, RBC 4.05, Hgb 11.4 L, Hct 35.1 L, MCV 86.7, MCH 28.1 , MCHC 32.5, RDW 15.6 H, Plt Count 185, MPV 10.3, Gran % 48.8 L, Lymph % (Auto) 41.3 H, [place] % (Auto) 8.9 H, Eos % (Auto) 0.7 L, Baso % (Auto) 0.3, Gran # 1.43 , Lymph # (Auto) 1.2, [place] # (Auto) 0.3, Eos # (Auto) 0.0, Baso # (Auto) 0.01 - Medication Orders Current Medication Orders: Discontinued Medications Famotidine (Pepcid 20mg/50ml Premix) 20 mg IVPB STAT STA Stop: 03/04/18 10:09 Last Admin: 03/04/18 10:47 Dose: 20 mg eMAR Start Stop Document 03/04/18 10:47 SF (Rec: 03/04/18 10:47 [place] [facility] [email or web address] Intravenous Solution Start Date 03/04/18 Start Time 10:47 End Date 03/04/18 Sodium Chloride (Sodium Chloride 0.9%) 1,000 mls @ 1,000 mls/hr IV .Q1H STA Stop: 03/04/18 10:04 Last Admin: 03/04/18 09:15 Dose: 1,000 mls/hr eMAR Start Stop Document 03/04/18 09:15 SF (Rec: 03/04/18 09:49 SF [facility] [email or web address] Intravenous Solution Start Date 03/04/18 Start Time 09:15 End Date 03/04/18 End time 10:15 Total Infusion Time 60 Lorazepam (Ativan) 1 mg IVP ONCE ONE PRN Reason: Protocol Stop: 03/04/18 10:09 Last Admin: 03/04/18 10:47 Dose: 1 mg IVP Administration Document 03/04/18 10:47 SF (Rec: 03/04/18 10:47 SF [email or web address] Charges for Administration # of IVP Administrations 1 Ondansetron HCl (Zofran Inj) 4 mg IVP STAT STA Stop: 03/04/18 09:06 Last Admin: 03/04/18 09:51 Dose: 4 mg IVP Administration Document 03/04/18 09:51 SF (Rec: 03/04/18 09:51 SF [email or web address] Charges for Administration # of IVP Administrations 1 Disposition/Present on Arrival - Present on Arrival Any Indicators Present on Arrival: No History of DVT/PE: No History of Uncontrolled Diabetes: No Urinary Catheter: No History Surgical Site Infection Following: Orthopedic Procedures - Disposition Have Diagnosis and Disposition been Completed?: Yes Diagnosis: Anxiety, Gastritis Disposition: HOME/ ROUTINE Disposition Time: 11:40 Patient Plan: Discharge Condition: STABLE Discharge Instructions (ExitCare): Anxiety, Adult (DC), Gastritis (DC) Additional Instructions: Follow up with your Doctor Return to ED for any new symptoms Referrals: Griselda Heard MD [Primary Care Provider] - Follow up with primary Forms: [employer] (Vietnamese)
[2018-03-04 09:44] LABS: BASO # 0.01 K/mm3 (0.0-2.0); BASO % 0.3 % (0.0-3.0); EOS % 0.7 % (1.5-5.0); GRAN # 1.43 (1.4-6.5); GRAN % 48.8 % (50.0-68.0); HEMOGLOBIN 11.4 g/dL (14.0-18.0); LYMPH # 1.2 (1.2-3.4); LYMPH % 41.3 % (22.0-35.0); MEAN CELL VOLUME 86.7 fl (80.0-105.0); MEAN CORPUSCULAR HEMOGLOBIN 28.1 pg (25.0-35.0); MEAN CORPUSCULAR HGB CONC 32.5 g/dl (31.0-37.0); MEAN PLATELET VOLUME 10.3 fl (7.0-11.0); MONO # 0.3 (0.1-0.6); MONO % 8.9 % (1.0-6.0); RBC 4.05 10^6/uL (3.5-6.1); RED CELL DISTRIBUTION WIDTH 15.6 % (11.5-14.5)
[2018-03-04 09:46] LABS: ALB/GLOB RATIO 1.7 (1.1-1.8); ALBUMIN 4.8 g/dL (3.0-4.8); ALT/SGPT 55 U/L (7-56); AST/SGOT 57 U/L (17-59); BLOOD UREA NITROGEN 19 mg/dL (7-21); CALCIUM 9.6 mg/dL (8.4-10.5); GFR AFRICAN-AMERICAN > 60; GFR NON-AFRICAN AMERICAN > 60; LIPASE 152 U/L (23-300)
[2018-03-04 09:48] LABS: WHITE BLOOD COUNT 2.9 10^3/ul (4.5-11.0)
[2018-03-04 09:49] LABS: INR 0.97 (0.93-1.08); PARTIAL THROMBOPLASTIN TIME 27.6 Seconds (25.1-36.5); PROTHROMBIN TIME 11.1 SECONDS (9.4-12.5)
[2018-03-04 09:57] LABS: TROPONIN I < 0.01 ng/mL
[2018-03-04 10:05] LABS: CK-MB 3.4 ng/mL (0.0-3.6)
[2018-03-04] MEDS ORDERED: Famotidine 20mg/50ml Premix IVPB STA (10:08)
[2018-03-04 11:21] LABS: PH,URINE 6.5 (4.7-8.0); URINE BILIRUBIN NEGATIVE (NEGATIVE); URINE BLOOD NEGATIVE (NEGATIVE); URINE GLUCOSE (UA) NEGATIVE (NEGATIVE); URINE LEUKOCYTE ESTERASE NEGATIVE Leu/uL (NEGATIVE); URINE PROTEIN TRACE mg/dL (<30 mg/dL); URINE UROBILINOGEN 0.2 E.U./dL (<1 E.U./dL)
[2018-03-04 11:28] LABS: URINE APPEARANCE CLEAR (CLEAR); URINE COLOR YELLOW (YELLOW)
[2018-03-04 12:03] LABS: URINE BACTERIA MOD (NEG); URINE EPITHELIAL CELLS 0 - 2 /hpf (0-5); URINE RBC 0 - 2 /hpf (0-2); URINE WBC 0 - 2 /hpf (0-6)
[2018-03-04 12:55] VITALS: BP 133/82; PULSE 74; O2SAT 99
--- NOTE | 2018-03-05 08:09 | CARD ---
APPROVED REPORT EKG Measurement Heart [id number] <Conclusion> Normal sinus rhythm Moderate voltage criteria for LVH, may be normal variant
== END 2018-03-04 11:45 | disposition home or self-care (01) ==
LOC: ED 08:56
DX: K29.70 Gastritis, unspecified, without bleeding (principal); F41.9 Anxiety disorder, unspecified
CPT/HCPCS: 80053; 80320; 81001; 82550; 82553; 83615; 83690; 83735; 84484; 85025; 85610; 85730; 93005; 96361; 96374; 96375; 99285; J2060; J2405; J7040

== ENCOUNTER 2018-03-09 15:59 | Emergency (ER) | payer MEDICAID ==
[2018-03-09 15:59] VITALS: BMI 29.8
[2018-03-09 16:09] VITALS: O2SAT 98
[2018-03-09] MEDS ORDERED: Multivitamin (MVI) 10 ML, Thiamine 100 MG, Folic Acid 1 MG in Sodium Chloride 0.9% 1,00... IV ONE (16:23)
[2018-03-09] MEDS ORDERED: Famotidine 20mg/50ml 20 MG/50 ML BAG IVPB STA (16:27)
[2018-03-09] MEDS ORDERED: Morphine 4 mg/ml ISec IVP STA (16:30)
--- NOTE | 2018-03-09 16:37 | ED PDOC ---
Arrival/HPI - General Historian: Patient <Ananth Berg - Last Filed: 03/09/18 17:30> <siddharthaCaroline - Last Filed: 03/09/18 20:09> - General Chief Complaint: Abdominal Pain Time Seen by Provider: 03/09/18 16:12 - History of Present Illness Narrative History of Present Illness (Text): 03/09/18 16:32 A 42 year old male, whose past medical history includes alcohol abuse, colitis, hypertension and anxiety, presents to the emergency department complaining of diffused abdominal pain, worse in LLQ, which began yesterday. Patient reports pain worsened today and has experienced similar symptom in the past. Due to pain , patient has been unable to eat/sleep. Patient denies any fever, chills, nausea , vomiting, constipation, or any other complaints at this time. PMD: Dr. Denilson Saleem (Ananth Berg) Past Medical History - Provider Review Nursing Documentation Reviewed: Yes - Past History Past History: No Previous - Infectious Disease Hx of Infectious Diseases: None - Tetanus Immunization Tetanus Immunization: Unknown - Past Medical History Past Medical History: No Previous - Cardiac Hx Cardiac Disorders: Yes Hx Hypertension: Yes - Pulmonary Hx Respiratory Disorders: No Other/Comment: light smoker - Neurological Hx Neurological Disorder: Yes Hx Dizziness: Yes Other/Comment: neuropathy - HEENT Hx HEENT Disorder: No - Renal Hx Renal Disorder: No - Endocrine/Metabolic Hx Endocrine Disorders: No - Hematological/Oncological Hx Blood Disorders: No - Integumentary Hx Dermatological Disorder: No - Musculoskeletal/Rheumatological Hx Musculoskeletal Disorders: Yes (RIGHT FOOT SURGERY WITH RODS AND SCREWS, RIGHT ANKLE FX.) Hx Falls: Yes Hx Fractures: Yes - Gastrointestinal Hx Gastrointestinal Disorders: Yes Hx Gastroesophageal Reflux: Yes - Genitourinary/Gynecological Hx Genitourinary Disorders: No - Psychiatric Hx Psychophysiologic Disorder: Yes Hx Anxiety: Yes Hx Depression: Yes Hx Substance Use: Yes (cocaine occasionally) Other/Comment: ETOH, substance abuse - Past Surgical History Past Surgical History: Non-Contributing - Surgical History Hx Musculoskeletal Surgery: Yes (R foot sx with rods/screws placed) Hx Orthopedic Surgery: Yes - Anesthesia Hx Anesthesia: Yes Hx Anesthesia Reactions: No Hx Malignant Hyperthermia: No - Suicidal Assessment Feels Threatened In Home Enviroment: No <Ananth Berg - Last Filed: 03/09/18 17:30> Family/Social History - Physician Review Nursing Documentation Reviewed: Yes Family/Social History: No Known Family HX Smoking Status: Light Smoker < 10 Cigarettes Daily Hx Alcohol Use: Yes (2 1/2 pinks of vodka daily) Hx Substance Use: Yes (cocaine occasionally) Substance used: marijuana & cocaine Hx Substance Use Treatment: No <Ananth Berg - Last Filed: 03/09/18 17:30> Allergies/Home Meds <GabjasonAnanth - Last Filed: 03/09/18 17:30> <Diru,Happiness A - Last Filed: 03/09/18 20:09> Allergies/Adverse Reactions: Allergies No Known Allergies Allergy (Verified 03/09/18 16:06) Review of Systems - Physician Review All systems were reviewed & negative as marked: Yes - Review of Systems Constitutional: absent: Fevers, Night Sweats Gastrointestinal: Abdominal Pain (diffused abdominal pain, worse in LLQ). absent: Constipation, Nausea, Vomiting <Ananth Berg - Last Filed: 03/09/18 17:30> Physical Exam Vital Signs Reviewed: Yes Temperature: Afebrile Blood Pressure: Normal Pulse: Regular Respiratory Rate: Normal Appearance: Positive for: Well-Appearing, Non-Toxic, Comfortable Pain Distress: None Mental Status: Positive for: Alert and Oriented X 3 - Systems Exam Respiratory/Chest: Present: Clear to Auscultation, Good Air Exchange. No: Respiratory Distress, Accessory Muscle Use Cardiovascular: Present: Regular Rate and Rhythm, Normal S1, S2. No: Murmurs Abdomen: Present: Tenderness (all quadrants (more so in LLQ)), Normal Bowel Sounds. No: Distention Upper Extremity: Present: Normal Inspection. No: Cyanosis, Edema Lower Extremity: Present: Normal Inspection. No: Edema Neurological: Present: GCS=15, CN II-XII Intact, Speech Normal Skin: Present: Warm, Dry, Normal Color. No: Rashes Psychiatric: Present: Alert, Oriented x 3, Normal Insight, Normal Concentration <Ananth Berg - Last Filed: 03/09/18 17:30> Vital Signs Temp Pulse Resp BP Pulse Ox 03/09/18 19:47 98.7 F 86 16 144/84 03/09/18 17:10 79 18 128/71 98 03/09/18 16:29 87 18 131/75 98 03/09/18 16:06 98.8 F 87 20 133/89 98 Medical Decision Making - Lab Interpretations I have reviewed the lab results: Yes <Ananth Berg - Last Filed: 03/09/18 17:30> <Caroline Carreon - Last Filed: 03/09/18 20:09> ED Course and Treatment: 03/09/18 16:38 Impression: 42 year old male with diffuse abdominal pain, worse in LLQ. Physical exam shows tenderness in all quadrants of abdomen (more so in LLQ); no other acute findings on examination. Plan: -- EKG -- Abd/Pelvis CT -- Chest X-ray -- Labs -- Venous Blood Gas -- Blood Culture -- Urine Culture -- Urinalysis -- Reassess and disposition Prior Visits: Notes and results from previous visits were reviewed. Patient was last seen in the emergency department on 03/04/2018 for diarrhea, nausea, non-bloody/non- bilious vomiting, palpitation. Patient was discharged home. Progress Notes: EKG: Ordered, reviewed, and independently interpreted the EKG. Rate : 70 BPM Rhythm : Sinus rhythm with occasional premature ventricular complexes. Interpretation : No ST-segment elevations or depressions, no T-wave inversions, normal intervals. Comparison : No previous EKG for comparison. 03/09/2018 16:43 Chest X-ray IMPRESSION: No active disease. Dictator: Heath Pond DO (Ananth Berg) 03/09/18 20:04 PT was seen and endorsed by Dr. Berg to f/u abdomianl CT and dispor accordingly. Pt was comfortable on re evaluation he states his tpain improved. He was noted to tolerate PO challenge Abdominal /Pelvis CT Bladder: Unremarkable. No mass. Reproductive: Unremarkable as visualized. ABDOMEN and PELVIS: Intraperitoneal space: No free fluid or fluid collections. No inflammatory changes. No free air. Bones/joints: No acute fracture. No dislocation. Soft tissues: Unremarkable. Vasculature: Unremarkable. No abdominal aortic aneurysm. Lymph nodes: Unremarkable. No enlarged lymph nodes. IMPRESSION: 1. Mild fatty changes in the liver. 2. Mild diffuse wall thickening in descending and sigmoid colon. Finding is consistent with colitis Pt with known history of colitis. Result was DW the pt and he was DC home. He takes Nexium at home. Referred to his PMD. (Caroline Carreon) - Lab Interpretations Lab Results: 03/09/18 16:25 03/09/18 16:25 Lab Results 03/09/18 18:10: Urine Opiates Screen Positive H, Urine Methadone Screen Negative , Ur Barbiturates Screen Negative, Ur Phencyclidine Scrn Negative, Ur Amphetamines Screen Negative, U Benzodiazepines Scrn Positive, U Oth Cocaine Metabols Negative, U Cannabinoids Screen Negative 03/09/18 18:10: Urine Color Yellow, Urine Appearance Clear, Urine pH 6.0, Ur Specific [place] 1.025, Urine Protein Negative, Urine Glucose (UA) Negative, Urine Ketones Negative, Urine Blood Negative, Urine Nitrate Negative, Urine Bilirubin Negative, Urine Urobilinogen 0.2, Ur Leukocyte Esterase Negative 03/09/18 16:25: Alcohol, Quantitative < 10 03/09/18 16:25: Sodium 144, Chloride 104, Potassium 3.8, Carbon Dioxide 22, Anion Gap 23 H, BUN 16, Creatinine 0.9, Est GFR ( Amer) > 60, Est GFR ( Non-Af Amer) > 60, Random Glucose 89, Calcium 9.1, Total Bilirubin 0.5, AST 54, ALT 43, Alkaline Phosphatase 54, Lactate Dehydrogenase 604, Total Creatine Kinase 557 H, CK-MB (CK-2) 3.1, CK-MB (CK-2) % Cancelled, Troponin I 0.05 D, NT -Pro-B Natriuret Pep 60.7, Total Protein 7.8, Albumin 4.8, Globulin 3.0, Albumin /Globulin Ratio 1.6, Lipase 95 03/09/18 16:25: pO2 225 H, VBG pH 7.47 H, VBG pCO2 34.0 L, VBG HCO3 24.7, VBG Total CO2 25.7, VBG O2 Sat (Calc) 99.9 H, VBG Base Excess 1.5, VBG Potassium 3.9 , Sodium 138.0, Chloride 105.0, Glucose 92, Lactate 3.2 H, FiO2 21.0, Venous Blood Potassium 3.9 03/09/18 16:25: PT 12.0, INR 1.05 03/09/18 16:25: WBC 2.8 L*, RBC 4.04, Hgb 11.6 L, Hct 34.8 L, MCV 86.1, MCH 28.7 , MCHC 33.3, RDW 15.6 H, Plt Count 160, MPV 10.1, Gran % 50.8, Lymph % (Auto) 36.7 H, [place] % (Auto) 11.7 H, Eos % (Auto) 0.4 L, Baso % (Auto) 0.4, Gran # 1.43 , Lymph # (Auto) 1.0 L, [place] # (Auto) 0.3, Eos # (Auto) 0.0, Baso # (Auto) 0.01 03/09/18 16:14: POC Glucose (mg/dL) 80 - RAD Interpretation Radiology Orders: 03/09/18 16:13 CHEST PORTABLE [RAD] Stat 03/09/18 16:31 ABD PELVIS PO & IV CONTRAST [CT] Stat - Medication Orders Current Medication Orders: Discontinued Medications Multivitamins/Vitamin C 10 ml/Thiamine HCl 100 mg/ Folic Acid 1 mg/ Sodium Chloride 1,011.2 mls @ 1,000 mls/hr IV .Q1H1M ONE Stop: 03/09/18 17:23 Last Admin: 03/09/18 18:16 Dose: 1,000 mls/hr eMAR Start Stop Document 03/09/18 18:16 EQ (Rec: 03/09/18 18:18 EQ [id number]) Intravenous Solution Start Date 03/09/18 Start Time 18:16 Famotidine (Pepcid 20mg/50ml Premix) 20 mg in 50 mls @ 200 mls/hr IVPB STAT STA Stop: 03/09/18 16:41 Last Admin: 03/09/18 17:07 Dose: 200 mls/hr eMAR Start Stop Document 03/09/18 17:07 EQ (Rec: 03/09/18 17:07 EQ [id number]) Intravenous Solution Start Date 03/09/18 Start Time 17:07 Metronidazole (Flagyl) 500 mg in 100 mls @ 100 mls/hr IVPB STAT STA PRN Reason: Protocol Stop: 03/09/18 18:57 Last Admin: 03/09/18 18:18 Dose: 100 mls/hr eMAR Start Stop Document 03/09/18 18:18 EQ (Rec: 03/09/18 18:18 EQ [id number]) Intravenous Solution Start Date 03/09/18 Start Time 18:18 Levofloxacin/Dextrose (Levaquin 750mg) 750 mg IVPB ONCE ONE PRN Reason: Protocol Stop: 03/09/18 18:00 Last Admin: 03/09/18 19:40 Dose: 750 mg eMAR Start Stop Document 03/09/18 19:40 ARNEL (Rec: 03/09/18 19:41 ARNEL [id number]) Intravenous Solution Start Date 03/09/18 Start Time 19:41 Morphine Sulfate (Morphine) 4 mg IVP STAT STA Stop: 03/09/18 16:31 Last Admin: 03/09/18 17:07 Dose: 4 mg MAR Pain Assessment Document 03/09/18 17:07 EQ (Rec: 03/09/18 17:08 EQ [id number]) Pain Reassessment Is this a pain reassessment? No Sleep Is patient sleeping during reassessment? No Presence of Pain Presence of Pain Yes IVP Administration Document 03/09/18 17:07 EQ (Rec: 03/09/18 17:08 EQ [id number]) Charges for Administration # of IVP Administrations 1 Ondansetron HCl (Zofran Inj) 4 mg IVP STAT STA Stop: 03/09/18 16:31 Last Admin: 03/09/18 17:07 Dose: 4 mg IVP Administration Document 03/09/18 17:07 EQ (Rec: 03/09/18 17:07 EQ [id number]) Charges for Administration # of IVP Administrations 1 - Scribe Statement The provider has reviewed the documentation as recorded by the Scribe <Ananth Berg - Last Filed: 03/09/18 17:30> <Caroline Carreon - Last Filed: 03/09/18 20:09> - Scribe Statement Eduardo Hope Provider Scribe Attestation: All medical record entries made by the Scribe were at my direction and personally dictated by me. I have reviewed the chart and agree that the record accurately reflects my personal performance of the history, physical exam, medical decision making, and the department course for this patient. I have also personally directed, reviewed, and agree with the discharge instructions and disposition. (Ananth Berg) Disposition/Present on Arrival - Present on Arrival History of DVT/PE: No History of Uncontrolled Diabetes: No Urinary Catheter: No History of Decub. Ulcer: No History Surgical Site Infection Following: Orthopedic Procedures <Ananth Berg - Last Filed: 03/09/18 17:30> - Present on Arrival Any Indicators Present on Arrival: No History of DVT/PE: No History of Uncontrolled Diabetes: No Urinary Catheter: No History of Decub. Ulcer: No History Surgical Site Infection Following: None - Disposition Have Diagnosis and Disposition been Completed?: Yes Disposition Time: 20:10 Patient Plan: Discharge <Caroline Carreon - Last Filed: 03/09/18 20:09> - Disposition Diagnosis: Abdominal pain, Colitis Disposition: HOME/ ROUTINE Condition: STABLE Discharge Instructions (ExitCare): Acute Abdomen (Belly Pain), Adult (DC) Additional Instructions: Follow up with your doctor Return to Emergency department for any new or worsening symptoms Referrals: Denilson Saleem MD [Primary Care Provider] - Follow up with primary Forms: [employer] (Yakut)
[2018-03-09] MEDS ORDERED: Iohexol 240 (50 ml) ONE (16:39)
--- NOTE | 2018-03-09 16:45 | RAD ---
HISTORY: epigastric pain COMPARISON: Comparison made with prior study 02/28/2018 FINDINGS: LUNGS: No active pulmonary disease. PLEURA: No significant pleural effusion identified, no pneumothorax apparent. CARDIOVASCULAR: Normal. OSSEOUS STRUCTURES: No significant abnormalities. VISUALIZED UPPER ABDOMEN: Normal. OTHER FINDINGS: None. IMPRESSION: No active disease.
[2018-03-09 16:50] LABS: BASO # 0.01 K/mm3 (0.0-2.0); BASO % 0.4 % (0.0-3.0); EOS % 0.4 % (1.5-5.0); GRAN # 1.43 (1.4-6.5); GRAN % 50.8 % (50.0-68.0); HEMOGLOBIN 11.6 g/dL (14.0-18.0); LYMPH % 36.7 % (22.0-35.0); MEAN CELL VOLUME 86.1 fl (80.0-105.0); MEAN CORPUSCULAR HEMOGLOBIN 28.7 pg (25.0-35.0); MEAN CORPUSCULAR HGB CONC 33.3 g/dl (31.0-37.0); MEAN PLATELET VOLUME 10.1 fl (7.0-11.0); MONO # 0.3 (0.1-0.6); MONO % 11.7 % (1.0-6.0); RBC 4.04 10^6/uL (3.5-6.1); RED CELL DISTRIBUTION WIDTH 15.6 % (11.5-14.5)
[2018-03-09 16:54] LABS: VENOUS BLOOD GAS BASE EXCESS 1.5 mmol/L (0.0-2.0); VENOUS BLOOD GAS PO2 225 mm/Hg (30-55); VENOUS BLOOD PH 7.47 (7.32-7.43)
[2018-03-09 16:57] LABS: INR 1.05 (0.93-1.08)
[2018-03-09 17:10] LABS: ALB/GLOB RATIO 1.6 (1.1-1.8); ALBUMIN 4.8 g/dL (3.0-4.8); ALT/SGPT 43 U/L (7-56); AST/SGOT 54 U/L (17-59); BLOOD UREA NITROGEN 16 mg/dL (7-21); CALCIUM 9.1 mg/dL (8.4-10.5); GFR AFRICAN-AMERICAN > 60; GFR NON-AFRICAN AMERICAN > 60; LIPASE 95 U/L (23-300)
[2018-03-09 17:11] LABS: WHITE BLOOD COUNT 2.8 10^3/ul (4.5-11.0)
[2018-03-09 17:12] LABS: B-TYPE NATRIURETIC PEPTIDE 60.7 pg/mL (0-450); TROPONIN I 0.05 ng/mL
[2018-03-09 17:16] LABS: CK-MB 3.1 ng/mL (0.0-3.6)
[2018-03-09] MEDS ORDERED: metroNIDAZOLE IV 500 mg/100 ml 500 MG/100 ML BAG IVPB STA (17:58)
[2018-03-09] MEDS ORDERED: levoFLOXacin 750 mg in D5W 150 ML BAG IVPB ONE (17:59)
[2018-03-09 18:24] LABS: URINE BILIRUBIN NEGATIVE (NEGATIVE); URINE BLOOD NEGATIVE (NEGATIVE); URINE GLUCOSE (UA) NEGATIVE (NEGATIVE); URINE LEUKOCYTE ESTERASE NEGATIVE Leu/uL (NEGATIVE); URINE PROTEIN NEGATIVE mg/dL (<30 mg/dL); URINE UROBILINOGEN 0.2 E.U./dL (<1 E.U./dL)
[2018-03-09] MEDS ORDERED: Iohexol 350 MG/100 ML VIAL ONE (18:24)
[2018-03-09 18:28] LABS: URINE APPEARANCE CLEAR (CLEAR); URINE COLOR YELLOW (YELLOW)
[2018-03-09 18:44] LABS: BARBITURATES, UR NEGATIVE (NEGATIVE); BENZODIAZEPINES, UR POSITIVE (NEGATIVE); OPIATES, UR POSITIVE (NEGATIVE); PHENCYCLIDINE, UR NEGATIVE (NEGATIVE)
[2018-03-09 19:49] VITALS: RESP 16; TEMP 98.7
[2018-03-09 21:10] VITALS: BP 140/77; PULSE 88
--- NOTE | 2018-03-10 08:40 | CARD ---
APPROVED REPORT EKG Measurement Heart [id number] <Conclusion> Sinus rhythm 1 PVC LVH by voltage No change
--- NOTE | 2018-03-10 09:52 | CT ---
PROCEDURE: CT Abdomen and Pelvis with contrast HISTORY: Abdominal Pain/Diffuse Tenderness COMPARISON: None. TECHNIQUE: Contrast dose: Radiation dose: Total exam DLP = mGy-cm. This CT exam was performed using one or more of the following dose reduction techniques: Automated exposure control, adjustment of the mA and/or kV according to patient size, and/or use of iterative reconstruction technique. FINDINGS: LOWER THORAX: Unremarkable. LIVER: Mild fatty infiltration of liver. GALLBLADDER AND BILE DUCTS: Unremarkable. PANCREAS: Unremarkable. No gross lesion or ductal dilatation. SPLEEN: Unremarkable. ADRENALS: Unremarkable. No mass. KIDNEYS AND URETERS: Unremarkable. No hydronephrosis. No solid mass. VASCULATURE: Unremarkable. No aortic aneurysm. BOWEL: Mild colonic wall thickening ; correlate clinically for colitis. APPENDIX: Normal appendix. PERITONEUM: Unremarkable. No free fluid. No free air. LYMPH NODES: Unremarkable. No enlarged lymph nodes. BLADDER: Unremarkable. REPRODUCTIVE: Unremarkable. BONES: No acute fracture. OTHER FINDINGS: Bilateral gynecomastia. IMPRESSION: Mild colonic wall thickening ; correlate clinically for colitis. Mild fatty infiltration of the liver.
== END 2018-03-09 21:08 | disposition home or self-care (01) ==
LOC: ED 15:59
DX: K52.9 Noninfective gastroenteritis and colitis, unspecified (principal); R10.32 Left lower quadrant pain; F17.210 Nicotine dependence, cigarettes, uncomplicated; I10 Essential (primary) hypertension
CPT/HCPCS: 71045; 74177; 80053; 80320; 80324; 80345; 80346; 80349; 80353; 80358; 80361; 81003; 82550; 82553; 82803; 82948; 83615; 83690; 83880; 83992; 84484; 85025; 85610; 87040; 87086; 93005; 96365; 96375; 99283; J2270; J2405; J3411; J7040; Q9966; Q9967

== ENCOUNTER 2018-03-18 12:21 | Observation (INO) | payer MEDICAID ==
[2018-03-18 12:31] VITALS: BMI 24.3
[2018-03-18] MEDS ORDERED: Morphine 4 mg/ml ISec IVP STA (13:13)
[2018-03-18] MEDS ORDERED: Alum-Mag Hydrox-Simethicone Susp (30 mL) PO STA (13:13)
[2018-03-18] MEDS ORDERED: Sodium Chloride 0.9% 1,000 ML IV STA (13:13)
--- NOTE | 2018-03-18 13:22 | ED PDOC ---
Arrival/HPI - General Chief Complaint: GI Problem Time Seen by Provider: 03/18/18 12:55 Historian: Patient, EMS - History of Present Illness Narrative History of Present Illness (Text): 03/18/18 13:18 pt p/w + < 1 day onset of epigastric pain, left lower abd pain; pt states he last drank alcohol yesterday (few beers); pt states pain started this morning, severe, at most pain is 8-9/10; pt states + severe nausea, + 1-2 episodes of vomiting; pt states no fever/chills/sweats, no cp/sob/palpitations, no urinary/ bowel changes, no fall/trauma/sick contact, no travel; pt states similar abd pain occurred in the past; pt is due to be evaluated by GI at [facility] for colonoscopy?; pt states no LOC, + dizziness/lightheadedness pt denied any bleeding pt is here for further eval pt's without other complaints. PCP: Dr Heard Time/Duration: Other (since this morning) Symptom Onset: Sudden Symptom Course: Unchanged Quality: Stabbing, Cramping Severity Level: Severe Activities at Onset: Rest Context: Home Past Medical History - Provider Review Nursing Documentation Reviewed: Yes - Travel History Have you recently traveled outside [place] w/in the past 3 mons?: No - Past History Past History: No Previous - Infectious Disease Hx of Infectious Diseases: None - Tetanus Immunization Tetanus Immunization: Unknown - Past Medical History Past Medical History: No Previous - Cardiac Hx Cardiac Disorders: Yes Hx Hypertension: Yes - Pulmonary Hx Respiratory Disorders: No Other/Comment: light smoker - Neurological Hx Neurological Disorder: Yes Hx Dizziness: Yes Other/Comment: neuropathy - HEENT Hx HEENT Disorder: No - Renal Hx Renal Disorder: No - Endocrine/Metabolic Hx Endocrine Disorders: No - Hematological/Oncological Hx Blood Disorders: No - Integumentary Hx Dermatological Disorder: No - Musculoskeletal/Rheumatological Hx Musculoskeletal Disorders: Yes (RIGHT FOOT SURGERY WITH RODS AND SCREWS, RIGHT ANKLE FX.) Hx Falls: Yes Hx Fractures: Yes - Gastrointestinal Hx Gastrointestinal Disorders: Yes Hx Gastroesophageal Reflux: Yes - Genitourinary/Gynecological Hx Genitourinary Disorders: No - Psychiatric Hx Psychophysiologic Disorder: Yes Hx Anxiety: Yes Hx Depression: Yes Hx Substance Use: Yes (cocaine occasionally) Other/Comment: ETOH, substance abuse - Past Surgical History Past Surgical History: Non-Contributing - Surgical History Hx Musculoskeletal Surgery: Yes (R foot sx with rods/screws placed) Hx Orthopedic Surgery: Yes - Anesthesia Hx Anesthesia: Yes Hx Anesthesia Reactions: No Hx Malignant Hyperthermia: No - Suicidal Assessment Feels Threatened In Home Enviroment: No Family/Social History - Physician Review Nursing Documentation Reviewed: Yes Family/Social History: No Known Family HX Smoking Status: Light Smoker < 10 Cigarettes Daily Hx Alcohol Use: Yes (2 1/2 pinks of vodka daily) Hx Substance Use: Yes (cocaine occasionally) Substance used: marijuana & cocaine Hx Substance Use Treatment: No Allergies/Home Meds Allergies/Adverse Reactions: Allergies No Known Allergies Allergy (Verified 03/09/18 16:06) Review of Systems - Review of Systems Constitutional: Fatigue Eyes: Normal ENT: Normal Respiratory: Normal. absent: SOB, Cough Cardiovascular: Normal. absent: Chest Pain, Palpitations Gastrointestinal: Abdominal Pain, Nausea, Vomiting Genitourinary Male: Normal Musculoskeletal: Normal. absent: Arthralgias, Back Pain Skin: Normal. absent: Rash Neurological: Normal. absent: Headache, Dizziness Endocrine: Normal Hemo/Lymphatic: Normal Psychiatric: Normal Physical Exam - Physical Exam Narrative Physical Exam (Text): 03/18/18 13:25 General: alert/awake, GCS = 15, oriented x 3, resting in bed, uncomfortable, cooperative, interactive; mild distress due to pain Head: NC/AT EYE: PERRLA, EOMI, sclera anicteric, no nystagmus, no photophobia; wearing eye glasses, visual field intact b/l Facial: WNL Oral: uvula/tongue are midline, no exudate/lesions, no drooling/stridor, no dysphonia; intact dentitions; mild dry oral mucosa; faint odor of alcohol on breath?? NECK: intact ROM, no midline tenderness, no nuchal rigidity, no meningeal signs ; no step off Chest: CTA b/l, no w/r/r; no tachypenia, no accessory muscle use noted Cardiac: +S1, +S2, no m/r/r, no tachycardia Abdominal: +BS, soft/nd; + diffuse lower left abd tenderness, well nourished patient; no masses/rebound/guarding/rigidity; no pizano's sign, no mcburney's point tenderness Extremities: intact ROM, strength 5/5 grossly intact in all limbs, neurovasc intact b/l; + ambulatory; reflex +2/2 BACK: no step off, no midline tenderness, NO crepitus, no gross deformities noted; Intact ROM SKIN: cap refill ~ 1 sec, no ulcerations, no petechiae, no rashes; no pallor NEURO: CNII-XII WNL, no facial asymmetries, no slurr speech, oriented x 3 NIH stroke scale ~ 0 Psych: normal insight, normal affect; follows command with ease Vital Signs Reviewed: Yes Vital Signs Temp Pulse Resp BP Pulse Ox 03/18/18 17:00 72 20 144/89 98 03/18/18 12:30 98.8 F 74 17 149/94 H 99 Temperature: Afebrile Blood Pressure: Hypertensive Pulse: Regular Respiratory Rate: Normal Appearance: Positive for: Well-Appearing, Non-Toxic, Uncomfortable, Other (alert /awake, GCS = 15, oriented x 3, mild distress due to pain, uncomfortable, resting in bed, cooperative; follows command with ease) Pain Distress: Mild Mental Status: Positive for: Alert and Oriented X 3 - Systems Exam Head: Present: Atraumatic, Normocephalic Medical Decision Making ED Course and Treatment: 03/18/18 13:20 Impression: abd pain, acute on chronic? i have consider all the differential diagnosis regarding pt's chief medical complaints/clinical findings, including but are not limited to: r/o pancreatitis , gastroparesis, unlikely obstruction, alcohol gastritis/gastritis/esophagitis, ? infection? A/P: abd pain - labs - iv - xray - ua - supportive care - observe/reevaluation 1530 pt continues to have abd pain, pt states medications provided to him does not help pt denied vomiting pt has no appetite will continue to monitor 1600 pt continues to have abd pain given pt's continued pain and lack of appetite, will recommend patient for admission/observation pt is made aware of his medical results pt agrees with admission 03/18/18 16:18 Dr. 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 Is agreeable with emergency department recommendation for admission/observation placement. Re-evaluation Time: 16:00 Reassessment Condition: Unchanged - Lab Interpretations Lab Results: 03/18/18 13:40 03/18/18 13:40 Lab Results 03/18/18 13:40: Alcohol, Quantitative 86 H 03/18/18 13:40: Sodium 145, Chloride 104, Potassium 3.6, Carbon Dioxide 24, Anion Gap 20, BUN 16, Creatinine 0.9, Est GFR ( Amer) > 60, Est GFR (Non- Af Amer) > 60, Random Glucose 91, Calcium 8.7, Magnesium 1.6 L, Total Bilirubin 0.4, AST 58, ALT 39, Alkaline Phosphatase 48, Total Protein 7.0, Albumin 4.1, Globulin 2.9, Albumin/Globulin Ratio 1.4, Lipase 99 03/18/18 13:40: pO2 185 H, VBG pH 7.41, VBG pCO2 40.0, VBG HCO3 25.4, VBG Total CO2 26.6, VBG O2 Sat (Calc) 99.7 H, VBG Base Excess 0.7, VBG Potassium 3.4 L, Sodium 140.0, Chloride 108.0 H, Glucose 95, Lactate 2.7 H, FiO2 21.0, Venous Blood Potassium 3.4 L 03/18/18 13:40: Urine Color Yellow, Urine Appearance Clear, Urine pH 6.0, Ur Specific [place] >= 1.030, Urine Protein Negative, Urine Glucose (UA) Negative, Urine Ketones Negative, Urine Blood Negative, Urine Nitrate Negative, Urine Bilirubin Negative, Urine Urobilinogen 0.2, Ur Leukocyte Esterase Negative 03/18/18 13:40: PT 11.9, INR 1.04, APTT 26.6 03/18/18 13:40: WBC 2.3 L*, RBC 3.94, Hgb 11.2 L, Hct 34.0 L, MCV 86.3, MCH 28.4 , MCHC 32.9, RDW 15.3 H, Plt Count 208, MPV 10.3, Gran % 37.2 L, Lymph % (Auto) 51.5 H, [place] % (Auto) 10.0 H, Eos % (Auto) 0.4 L, Baso % (Auto) 0.9, Gran # 0.85 L, Lymph # (Auto) 1.2, [place] # (Auto) 0.2, Eos # (Auto) 0.0, Baso # (Auto) 0.02 I have reviewed the lab results: Yes Interpretation: Abnormal lab values (decr WBCs; elevated lactate, elevated alcohol level) - RAD Interpretation Narrative RAD Interpretations (Text): 03/18/18 14:27 X-ray of abdomen reviewed by radiologist, shows: FINDINGS: BOWEL: Normal. No obstruction. No free air. BONES: Normal. OTHER FINDINGS: None. IMPRESSION: No active disease. 03/18/18 15:30 CT of Abdomen/Pelvis performed on 03/09/18 reviewed by radiologist, showed: FINDINGS: LOWER THORAX: Unremarkable. LIVER: Mild fatty infiltration of liver. GALLBLADDER AND BILE DUCTS: Unremarkable. PANCREAS: Unremarkable. No gross lesion or ductal dilatation. SPLEEN: Unremarkable. ADRENALS: Unremarkable. No mass. KIDNEYS AND URETERS: Unremarkable. No hydronephrosis. No solid mass. VASCULATURE: Unremarkable. No aortic aneurysm. BOWEL: Mild colonic wall thickening ; correlate clinically for colitis. APPENDIX: Normal appendix. PERITONEUM: Unremarkable. No free fluid. No free air. LYMPH NODES: Unremarkable. No enlarged lymph nodes. BLADDER: Unremarkable. REPRODUCTIVE: Unremarkable. BONES: No acute fracture. OTHER FINDINGS: Bilateral gynecomastia. IMPRESSION: Mild colonic wall thickening ; correlate clinically for colitis. Mild fatty infiltration of the liver. Radiology Orders: 03/18/18 13:28 obstructive series [ABD 2 VIEWS (FLAT/UP OR DECUB)] [RAD] Stat Proofer: Radiologist - Medication Orders Current Medication Orders: Discontinued Medications Al Hydrox/Mg Hydrox/Simethicone (Maalox Plus 30 Ml) 30 ml PO STAT STA Stop: 03/18/18 13:14 Last Admin: 03/18/18 13:35 Dose: 30 ml Famotidine (Pepcid) 20 mg IVP STAT STA Stop: 03/18/18 13:14 Last Admin: 03/18/18 13:35 Dose: 20 mg IVP Administration Document 03/18/18 13:35 SS (Rec: 03/18/18 13:35 SS [id number]) Charges for Administration # of IVP Administrations 1 Hydromorphone HCl (Dilaudid) 1 mg IVP STAT STA Stop: 03/18/18 16:15 Last Admin: 03/18/18 16:27 Dose: 1 mg MAR Pain Assessment Document 03/18/18 16:27 SS (Rec: 03/18/18 16:29 SS [id number]) Pain Reassessment Is this a pain reassessment? Yes Sleep Is patient sleeping during reassessment? No Presence of Pain Presence of Pain Yes Pain Scale Used Pain Scale Used Numeric Location Upper or Lower Lower Pain Location Body Site Abdomen Description Description Constant Intensity of Pain at present 9 IVP Administration Document 03/18/18 16:27 SS (Rec: 03/18/18 16:29 SS [id number]) Charges for Administration # of IVP Administrations 1 Sodium Chloride (Sodium Chloride 0.9%) 1,000 mls @ 1,000 mls/hr IV .Q1H STA Stop: 03/18/18 14:12 Last Admin: 03/18/18 14:10 Dose: 1,000 mls/hr eMAR Start Stop Document 03/18/18 14:10 SS (Rec: 03/18/18 14:10 SS [id number]) Intravenous Solution Start Date 03/18/18 Start Time 14:10 End Date 03/18/18 End time 15:10 Total Infusion Time 60 Ketorolac Tromethamine (Toradol) 30 mg IVP STAT STA Stop: 03/18/18 13:14 Last Admin: 03/18/18 14:08 Dose: 30 mg MAR Pain Assessment Document 03/18/18 14:08 SS (Rec: 03/18/18 14:09 SS [id number]) Pain Reassessment Is this a pain reassessment? No Sleep Is patient sleeping during reassessment? No Presence of Pain Presence of Pain Yes Pain Scale Used Pain Scale Used Numeric Location Upper or Lower Lower Pain Location Body Site Abdomen Description Description Constant Intensity of Pain at present 8 Pain Behavior Moaning Restlessness Facial Grimacing IVP Administration Document 03/18/18 14:08 SS (Rec: 03/18/18 14:09 SS [id number]) Charges for Administration # of IVP Administrations 1 Lidocaine HCl (Lidocaine 2% Viscous) 10 ml MM STAT STA Stop: 03/18/18 13:14 Last Admin: 03/18/18 13:35 Dose: 10 ml Morphine Sulfate (Morphine) 4 mg IVP STAT STA Stop: 03/18/18 13:14 Last Admin: 03/18/18 14:09 Dose: 4 mg MAR Pain Assessment Document 03/18/18 14:09 SS (Rec: 03/18/18 14:10 SS [id number]) Pain Reassessment Is this a pain reassessment? No Sleep Is patient sleeping during reassessment? No Presence of Pain Presence of Pain Yes Pain Scale Used Pain Scale Used Numeric Location Upper or Lower Lower Pain Location Body Site Abdomen Description Description Constant Intensity of Pain at present 8 Pain Behavior Moaning Grasping Site Restlessness Facial Grimacing IVP Administration Document 03/18/18 14:09 SS (Rec: 03/18/18 14:10 SS [id number]) Charges for Administration # of IVP Administrations 1 Ondansetron HCl (Zofran Inj) 4 mg IVP STAT STA Stop: 03/18/18 13:14 Last Admin: 03/18/18 14:08 Dose: 4 mg IVP Administration Document 03/18/18 14:08 SS (Rec: 03/18/18 14:08 SS [id number]) Charges for Administration # of IVP Administrations 1 Tramadol HCl (Ultram) 50 mg PO STAT STA Stop: 03/18/18 15:30 Last Admin: 03/18/18 15:40 Dose: 50 mg MAR Pain Assessment Document 03/18/18 15:40 SS (Rec: 03/18/18 15:42 SS [id number]) Pain Reassessment Is this a pain reassessment? No Sleep Is patient sleeping during reassessment? No Presence of Pain Presence of Pain Yes Pain Scale Used Pain Scale Used Numeric Location Pain Location Body Site Abdomen Disposition/Present on Arrival - Present on Arrival Any Indicators Present on Arrival: No History of DVT/PE: No History of Uncontrolled Diabetes: No Urinary Catheter: No History of Decub. Ulcer: No History Surgical Site Infection Following: None - Disposition Have Diagnosis and Disposition been Completed?: Yes Diagnosis: Intractable abdominal pain, Nausea, Alcohol abuse Disposition: HOSPITALIZED Disposition Time: 16:40 Patient Plan: Admission, Observation Condition: STABLE
[2018-03-18 13:48] LABS: VENOUS BLOOD GAS BASE EXCESS 0.7 mmol/L (0.0-2.0); VENOUS BLOOD GAS PO2 185 mm/Hg (30-55); VENOUS BLOOD PH 7.41 (7.32-7.43)
[2018-03-18 13:51] LABS: BASO # 0.02 K/mm3 (0.0-2.0); BASO % 0.9 % (0.0-3.0); EOS % 0.4 % (1.5-5.0); GRAN # 0.85 (1.4-6.5); GRAN % 37.2 % (50.0-68.0); HEMOGLOBIN 11.2 g/dL (14.0-18.0); LYMPH # 1.2 (1.2-3.4); LYMPH % 51.5 % (22.0-35.0); MEAN CELL VOLUME 86.3 fl (80.0-105.0); MEAN CORPUSCULAR HEMOGLOBIN 28.4 pg (25.0-35.0); MEAN CORPUSCULAR HGB CONC 32.9 g/dl (31.0-37.0); MEAN PLATELET VOLUME 10.3 fl (7.0-11.0); MONO # 0.2 (0.1-0.6); RBC 3.94 10^6/uL (3.5-6.1); RED CELL DISTRIBUTION WIDTH 15.3 % (11.5-14.5)
[2018-03-18 13:53] LABS: URINE BILIRUBIN NEGATIVE (NEGATIVE); URINE BLOOD NEGATIVE (NEGATIVE); URINE GLUCOSE (UA) NEGATIVE (NEGATIVE); URINE LEUKOCYTE ESTERASE NEGATIVE Leu/uL (NEGATIVE); URINE PROTEIN NEGATIVE mg/dL (<30 mg/dL); URINE UROBILINOGEN 0.2 E.U./dL (<1 E.U./dL)
[2018-03-18 13:55] LABS: URINE APPEARANCE CLEAR (CLEAR); URINE COLOR YELLOW (YELLOW)
[2018-03-18 13:59] LABS: INR 1.04 (0.93-1.08); PARTIAL THROMBOPLASTIN TIME 26.6 Seconds (25.1-36.5); PROTHROMBIN TIME 11.9 SECONDS (9.4-12.5)
[2018-03-18 14:01] LABS: ALB/GLOB RATIO 1.4 (1.1-1.8); ALBUMIN 4.1 g/dL (3.0-4.8); ALT/SGPT 39 U/L (7-56); AST/SGOT 58 U/L (17-59); BLOOD UREA NITROGEN 16 mg/dL (7-21); CALCIUM 8.7 mg/dL (8.4-10.5); GFR AFRICAN-AMERICAN > 60; GFR NON-AFRICAN AMERICAN > 60; LIPASE 99 U/L (23-300)
[2018-03-18 14:03] LABS: WHITE BLOOD COUNT 2.3 10^3/ul (4.5-11.0)
--- NOTE | 2018-03-18 14:17 | RAD ---
HISTORY: left abd pain COMPARISON: 11/21/2016 FINDINGS: BOWEL: Normal. No obstruction. No free air. BONES: Normal. OTHER FINDINGS: None. IMPRESSION: No active disease.
[2018-03-18] MEDS ORDERED: HYDROmorphone 1 mg/ml ISec IVP STA (16:14)
[2018-03-18 17:34] LABS: VENOUS BLOOD GAS BASE EXCESS -1.3 mmol/L (0.0-2.0); VENOUS BLOOD GAS PO2 76 mm/Hg (30-55); VENOUS BLOOD PH 7.36 (7.32-7.43)
[2018-03-18] MEDS ORDERED: Morphine 4 mg/ml ISec IVP PRN (17:41)
[2018-03-18 17:53] LABS: BENZODIAZEPINES, UR NEGATIVE (NEGATIVE)
[2018-03-18 17:54] LABS: BARBITURATES, UR NEGATIVE (NEGATIVE); OPIATES, UR POSITIVE (NEGATIVE); PHENCYCLIDINE, UR NEGATIVE (NEGATIVE)
[2018-03-18 18:15] VITALS: RESP 20; O2SAT 99
--- NOTE | 2018-03-18 19:33 | CP.PCM.HP ---
<Alex Cook - Last Filed: 03/19/18 06:02> History of Present Illness - History of Present Illness History of Present Illness: PGY1 Medicine H+P for Dr. Melendez Patient is a 42 year old male with a past medical history of alcohol abuse, anxiety and colitis presenting to the emergency room with epigastric and left lower quadrant abdominal pain. The pain started suddenly this morning describing it as very sharp and severe in nature and occurring while patient is at rest. Patient reports dizziness/lightheadedness, severe nausea and 2 episodes of non-bloody, non-bilious emesis prior to arrival. Patient reports multiple episodes of similar abdominal pain in the past. This is confirmed by past encounters, most recently on 03/09 when he was evaluated in the emergency room and discharged home. Patient states that he is supposed to follow up with his GI doctors at [facility] to have a colonoscopy on 04/01/18. Patient reports 6 episodes of watery, loose, non-bloody bowel movements since this morning. Denies recent falls/trauma, travel, fevers, chills, sweats, constipation, chest pain, palpitations, vision changes, numbness, tingling, LOC , bleeding PMH: Alcohol Abuse, Anxiety, and Colitis PSH: Right Ankle surgery Family History: Denies Social History: Smokes 4-5 cigarettes/day, used to drink one pint of vodka daily but has cut down to 3 beers daily, uses cocaine infrequently (last use one week ago) Allergies: NKDA Present on Admission - Present on Admission Any Indicators Present on Admission: No Review of Systems - Review of Systems All systems: reviewed and no additional remarkable complaints except - Constitutional Constitutional: As Per HPI - EENT Eyes: As Per HPI Ears: As Per HPI Nose/Mouth/Throat: As Per HPI - Cardiovascular Cardiovascular: As Per HPI - Respiratory Respiratory: As Per HPI - Gastrointestinal Gastrointestinal: Abdominal Pain, Diarrhea, Loose Stools, Nausea, Vomiting - Musculoskeletal Musculoskeletal: As Per HPI - Integumentary Integumentary: As Per HPI - Neurological Neurological: As Per HPI - Psychiatric Psychiatric: As Per HPI - Endocrine Endocrine: As Per HPI - Hematologic/Lymphatic Hematologic: As Per HPI Past Patient History - Infectious Disease Hx of Infectious Diseases: None - Tetanus Immunizations Tetanus Immunization: Unknown - Past Medical History & Family History Past Medical History?: Yes - Past Social History Smoking Status: Heavy Smoker > 10 Cigarettes Daily - CARDIAC Hx Cardiac Disorders: Yes Hx Hypertension: Yes - PULMONARY Hx Respiratory Disorders: No Other/Comment: light smoker - NEUROLOGICAL Hx Neurological Disorder: Yes Hx Dizziness: Yes Other/Comment: neuropathy - HEENT Hx HEENT Problems: No - RENAL Hx Chronic Kidney Disease: No - ENDOCRINE/METABOLIC Hx Endocrine Disorders: No - HEMATOLOGICAL/ONCOLOGICAL Hx Blood Disorders: No - INTEGUMENTARY Hx Dermatological Problems: No - MUSCULOSKELETAL/RHEUMATOLOGICAL Hx Falls: No - GASTROINTESTINAL Other/Comment: Colitis - GENITOURINARY/GYNECOLOGICAL Hx Genitourinary Disorders: No - PSYCHIATRIC Hx Anxiety: Yes - SURGICAL HISTORY Hx Surgeries: Yes (Fracture of ankle) - ANESTHESIA Hx Anesthesia: Yes Hx Anesthesia Reactions: No Hx Malignant Hyperthermia: No Meds Allergies/Adverse Reactions: Allergies Allergy/AdvReac Type Severity Reaction Status Date / Time No Known Allergies Allergy Verified 03/09/18 16:06 Physical Exam - Constitutional Appears: Non-toxic, In Acute Distress (holding abdomen) - Head Exam Head Exam: ATRAUMATIC, NORMOCEPHALIC - Eye Exam Eye Exam: EOMI, Normal appearance - ENT Exam ENT Exam: Mucous Membranes Moist - Neck Exam Neck exam: Negative for: Lymphadenopathy - Respiratory Exam Respiratory Exam: Clear to Auscultation Bilateral, NORMAL BREATHING PATTERN. absent: Accessory Muscle Use, Rales, Rhonchi, Wheezes, Respiratory Distress - Cardiovascular Exam Cardiovascular Exam: REGULAR RHYTHM, +S1, +S2 - GI/Abdominal Exam GI & Abdominal Exam: Normal Bowel Sounds, Soft. absent: Distended, Firm, Guarding, Rigid, Tenderness - Extremities Exam Extremities exam: Positive for: normal inspection, pedal pulses present. Negative for: calf tenderness, pedal edema - Neurological Exam Neurological exam: Alert, CN II-XII Intact, Oriented x3 - Psychiatric Exam Psychiatric exam: Normal Affect, Normal Mood - Skin Skin Exam: Dry, Warm Results - Vital Signs Recent Vital Signs: Last Vital Signs Temp 98.3 F 03/18/18 18:00 Pulse 67 03/18/18 18:00 Resp 20 03/18/18 18:00 BP 168/94 H 03/18/18 18:00 Pulse Ox 99 03/18/18 18:00 - Labs Result Diagrams: 03/18/18 13:40 03/18/18 13:40 Labs: Laboratory Results - last 24 hr 03/18/18 03/18/18 17:02 17:22 pO2 76 H VBG pH 7.36 VBG pCO2 43.0 VBG HCO3 24.3 VBG Total CO2 25.6 VBG O2 Sat (Calc) 96.6 H VBG Base Excess -1.3 L VBG Potassium 3.5 L Sodium 142.0 Chloride 107.0 Glucose 91 Lactate 2.9 H FiO2 21.0 Venous Blood Potassium 3.5 L Urine Opiates Screen Positive H Urine Methadone Screen Negative Ur Barbiturates Screen Negative Ur Phencyclidine Scrn Negative Ur Amphetamines Screen Negative U Benzodiazepines Scrn Negative U Oth Cocaine Metabols Negative U Cannabinoids Screen Negative Assessment & Plan - Assessment and Plan (Free Text) Assessment: Patient is a 42 year old male with a past medical history of Alcohol abuse, anxiety and colitis presenting to the emergency room with hx of severe abdominal pain, N/V and diarrhea for 1 day. Plan: Abdominal Pain 2/2 to Alcohol abuse VS Infectious VS Colitis Recent ECHO 01/27/18 - EF ~60%, mild TR, mild pulm HTN Recent Abd/Pelvis CT w/IV and PO contrast 03/09/18 - Mild colonic wall thickening ; correlate clinically for colitis. Mild fatty infiltration of the liver. afebrile leukopenia upon admission 2.3 Lipase 99 - normal NPO Zofran 4mg IVP q6h prn Toradol 30mg IVP q6h prn - mod. pain Morphine 1mg IVP q6h prn - severe pain hx of Alcohol Abuse CIWA protocol Ativan 1mg IVP q6h Ativan 2mg IVP q4h prn Banana Bag @100mL/hr Diarrhea Stool Studies: * Fecal leukocyts - f/u * C. Diff - f/u Hx of Anxiety No home medications Prophylactic Care Protonix 40mg IVP daily Lovenox 40mg SC daily Case discussed with Dr. Nora Chan PGY1 - Date & Time Date: 03/18/18 Time: 19:00 <Addie Melendez - Last Filed: 03/19/18 06:55> Results - Vital Signs Recent Vital Signs: Last Vital Signs Temp 98.3 F 03/18/18 18:00 Pulse 67 03/19/18 06:00 Resp 20 03/18/18 18:00 BP 168/94 H 03/18/18 18:00 Pulse Ox 99 03/18/18 18:00 - Labs Result Diagrams: 03/19/18 06:00 03/19/18 06:00 Labs: Laboratory Results - last 24 hr 03/18/18 03/18/18 03/19/18 17:02 17:22 06:00 WBC 3.0 L D RBC 4.19 Hgb 11.7 L Hct 35.8 L MCV 85.4 MCH 27.9 MCHC 32.7 RDW 14.7 H Plt Count 194 MPV 10.4 Gran % 25.0 L Lymph % (Auto) 59.8 H [place] % (Auto) 13.5 H Eos % (Auto) 1.4 L Baso % (Auto) 0.3 Gran # 0.74 L Lymph # (Auto) 1.8 [place] # (Auto) 0.4 Eos # (Auto) 0.0 Baso # (Auto) 0.01 pO2 76 H VBG pH 7.36 VBG pCO2 43.0 VBG HCO3 24.3 VBG Total CO2 25.6 VBG O2 Sat (Calc) 96.6 H VBG Base Excess -1.3 L VBG Potassium 3.5 L Sodium 142.0 Chloride 107.0 Glucose 91 Lactate 2.9 H FiO2 21.0 Potassium Carbon Dioxide Anion Gap BUN Creatinine Est GFR ( Amer) Est GFR (Non-Af Amer) Random Glucose Calcium Total Bilirubin AST ALT Alkaline Phosphatase Total Protein Albumin Globulin Albumin/Globulin Ratio Venous Blood Potassium 3.5 L Urine Opiates Screen Positive H Urine Methadone Screen Negative Ur Barbiturates Screen Negative Ur Phencyclidine Scrn Negative Ur Amphetamines Screen Negative U Benzodiazepines Scrn Negative U Oth Cocaine Metabols Negative U Cannabinoids Screen Negative 03/19/18 06:00 WBC RBC Hgb Hct MCV MCH MCHC RDW Plt Count MPV Gran % Lymph % (Auto) [place] % (Auto) Eos % (Auto) Baso % (Auto) Gran # Lymph # (Auto) [place] # (Auto) Eos # (Auto) Baso # (Auto) pO2 VBG pH VBG pCO2 VBG HCO3 VBG Total CO2 VBG O2 Sat (Calc) VBG Base Excess VBG Potassium Sodium 138 Chloride 97 L Glucose Lactate FiO2 Potassium 3.0 L Carbon Dioxide 27 Anion Gap 17 BUN 8 Creatinine 0.8 Est GFR ( Amer) > 60 Est GFR (Non-Af Amer) > 60 Random Glucose 98 Calcium 8.7 Total Bilirubin 0.8 AST 58 ALT 36 Alkaline Phosphatase 50 Total Protein 7.2 Albumin 4.3 Globulin 2.9 Albumin/Globulin Ratio 1.4 Venous Blood Potassium Urine Opiates Screen Urine Methadone Screen Ur Barbiturates Screen Ur Phencyclidine Scrn Ur Amphetamines Screen U Benzodiazepines Scrn U Oth Cocaine Metabols U Cannabinoids Screen Attending/Attestation - Attestation I have personally seen and examined this patient.: Yes I have fully participated in the care of the patient.: Yes I have reviewed all pertinent clinical information: Yes Notes (Text): 03/18/18 42 year old male with past medical history of alcohol abuse, anxiety and colitis who presents with complaint of left sided abdominal pain, nausea, vomiting and diarrhea. Patient has multiple admissions and ER visits with similar presentation. Most recent CT abd/pelvis was 03/09/18 which showed mild colonic wall thickening. 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 Will keep NPO for now with iv fluids, antiemetics and analgesics. GI evaluation is requested. Stool studies are ordered. Continue with banana bag with ativan marlene/prn for withdrawal symptoms. Patient was counselled on alcohol cessation. Leukopenia/anemia likely secondary to chronic ETOH abuse. Will continue with monitor. Will replete and repeat lytes (magnesium). Addie Melendez MD Hospitalist.
[2018-03-18] MEDS: Folic Acid 1 MG, Thiamine 100 MG, Multivitamin (MVI) 10 ML in Dextrose 5% In Water 1,00... IV SCH (19:54)
[2018-03-19] MEDS: Folic Acid 1 MG, Thiamine 100 MG, Multivitamin (MVI) 10 ML in Dextrose 5% In Water 1,00... IV SCH (05:45)
[2018-03-19 06:18] LABS: BASO # 0.01 K/mm3 (0.0-2.0); BASO % 0.3 % (0.0-3.0); EOS % 1.4 % (1.5-5.0); GRAN # 0.74 (1.4-6.5); HEMOGLOBIN 11.7 g/dL (14.0-18.0); LYMPH # 1.8 (1.2-3.4); LYMPH % 59.8 % (22.0-35.0); MEAN CELL VOLUME 85.4 fl (80.0-105.0); MEAN CORPUSCULAR HEMOGLOBIN 27.9 pg (25.0-35.0); MEAN CORPUSCULAR HGB CONC 32.7 g/dl (31.0-37.0); MEAN PLATELET VOLUME 10.4 fl (7.0-11.0); MONO # 0.4 (0.1-0.6); MONO % 13.5 % (1.0-6.0); RBC 4.19 10^6/uL (3.5-6.1); RED CELL DISTRIBUTION WIDTH 14.7 % (11.5-14.5)
[2018-03-19 06:49] LABS: ALB/GLOB RATIO 1.4 (1.1-1.8); ALBUMIN 4.3 g/dL (3.0-4.8); ALT/SGPT 36 U/L (7-56); AST/SGOT 58 U/L (17-59); BLOOD UREA NITROGEN 8 mg/dL (7-21); CALCIUM 8.7 mg/dL (8.4-10.5); GFR AFRICAN-AMERICAN > 60; GFR NON-AFRICAN AMERICAN > 60
[2018-03-19 07:39] VITALS: BP 137/99; TEMP 97.8
[2018-03-19] MEDS ORDERED: Multivitamin With Minerals Tab PO SCH (08:00)
[2018-03-19] MEDS ORDERED: Potassium Chloride 20 mEq ER Tab PO ONE (08:26)
[2018-03-19] MEDS ORDERED: Magnesium Sulfate 2 GM in Sodium Chloride 0.9% 100 ML IVPB ONE (08:58)
[2018-03-19] MEDS ORDERED: Enoxaparin 40 mg Syringe SC SCH (10:00)
--- NOTE | 2018-03-19 13:47 | CP.PCM.DIS ---
<Alex Cook - Last Filed: 03/19/18 13:59> Provider - Provider Date of Admission: 03/18/18 16:18 Attending physician: Addie Melendez MD Primary care physician: Griselda Heard MD Consults: none Time Spent in preparation of Discharge (in minutes): 35 Hospital Course - Lab Results Lab Results: Most Recent Lab Values WBC 3.0 10^3/ul (4.5-11.0) L D 03/19/18 06:00 RBC 4.19 10^6/uL (3.5-6.1) 03/19/18 06:00 Hgb 11.7 g/dL (14.0-18.0) L 03/19/18 06:00 Hct 35.8 % (42.0-52.0) L 03/19/18 06:00 MCV 85.4 fl (80.0-105.0) 03/19/18 06:00 MCH 27.9 pg (25.0-35.0) 03/19/18 06:00 MCHC 32.7 g/dl (31.0-37.0) 03/19/18 06:00 RDW 14.7 % (11.5-14.5) H 03/19/18 06:00 Plt Count 194 10^3/uL (120.0-450.0) 03/19/18 06:00 MPV 10.4 fl (7.0-11.0) 03/19/18 06:00 Gran % 25.0 % (50.0-68.0) L 03/19/18 06:00 Lymph % (Auto) 59.8 % (22.0-35.0) H 03/19/18 06:00 Gu[place]upe % (Auto) 13.5 % (1.0-6.0) H 03/19/18 06:00 Eos % (Auto) 1.4 % (1.5-5.0) L 03/19/18 06:00 Baso % (Auto) 0.3 % (0.0-3.0) 03/19/18 06:00 Gran # 0.74 (1.4-6.5) L 03/19/18 06:00 Lymph # (Auto) 1.8 (1.2-3.4) 03/19/18 06:00 [place] # (Auto) 0.4 (0.1-0.6) 03/19/18 06:00 Eos # (Auto) 0.0 (0.0-0.7) 03/19/18 06:00 Baso # (Auto) 0.01 K/mm3 (0.0-2.0) 03/19/18 06:00 PT 11.9 SECONDS (9.4-12.5) 03/18/18 13:40 INR 1.04 (0.93-1.08) 03/18/18 13:40 APTT 26.6 Seconds (25.1-36.5) 03/18/18 13:40 pO2 76 mm/Hg (30-55) H 03/18/18 17:22 VBG pH 7.36 (7.32-7.43) 03/18/18 17:22 VBG pCO2 43.0 (40-60) 03/18/18 17:22 VBG HCO3 24.3 mmol/l (21-28) 03/18/18 17:22 VBG Total CO2 25.6 mmol.L (22-28) 03/18/18 17:22 VBG O2 Sat (Calc) 96.6 % (40-65) H 03/18/18 17:22 VBG Base Excess -1.3 mmol/L (0.0-2.0) L 03/18/18 17:22 VBG Potassium 3.5 mmol/L (3.6-5.2) L 03/18/18 17:22 Sodium 142.0 mmol/L (132-148) 03/18/18 17: Chloride 107.0 mmol/L (98-107) 03/18/18 17:22 Glucose 91 mg/dl (75-110) 03/18/18 17:22 Lactate 2.9 mmol/L (0.7-2.1) H 03/18/18 17:22 FiO2 21.0 % 03/18/18 17:22 Sodium 138 mmol/L (132-148) 03/19/18 06:00 Potassium 3.0 mmol/L (3.6-5.0) L 03/19/18 06:00 Chloride 97 mmol/L (98-107) L 03/19/18 06:00 Carbon Dioxide 27 mmol/L (21-33) 03/19/18 06:00 Anion Gap 17 (10-20) 03/19/18 06:00 BUN 8 mg/dL (7-21) 03/19/18 06:00 Creatinine 0.8 mg/dl (0.8-1.5) 03/19/18 06:00 Est GFR ( Amer) > 60 03/19/18 06:00 Est GFR (Non-Af Amer) > 60 03/19/18 06:00 Random Glucose 98 mg/dL (70-110) 03/19/18 06:00 Calcium 8.7 mg/dL (8.4-10.5) 03/19/18 06:00 Magnesium 1.5 mg/dL (1.7-2.2) L 03/19/18 06:30 Total Bilirubin 0.8 mg/dL (0.2-1.3) 03/19/18 06:00 AST 58 U/L (17-59) 03/19/18 06:00 ALT 36 U/L (7-56) 03/19/18 06:00 Alkaline Phosphatase 50 U/L (38-126) 03/19/18 06:00 Total Protein 7.2 g/dL (5.8-8.3) 03/19/18 06:00 Albumin 4.3 g/dL (3.0-4.8) 03/19/18 06:00 Globulin 2.9 gm/dL 03/19/18 06:00 Albumin/Globulin Ratio 1.4 (1.1-1.8) 03/19/18 06:00 Lipase 99 U/L (23-300) 03/18/18 13:40 Venous Blood Potassium 3.5 mmol/L (3.6-5.2) L 03/18/18 17:22 Urine Color Yellow (YELLOW) 03/18/18 13:40 Urine Appearance Clear (CLEAR) 03/18/18 13:40 Urine pH 6.0 (4.7-8.0) 03/18/18 13:40 Ur Specific [place] >= 1.030 (1.005-1.035) 03/18/18 13:40 Urine Protein Negative mg/dL (<30 mg/dL) 03/18/18 13:40 Urine Glucose (UA) Negative mg/dL (NEGATIVE) 03/18/18 13:40 Urine Ketones Negative mg/dL (NEGATIVE) 03/18/18 13:40 Urine Blood Negative (NEGATIVE) 03/18/18 13:40 Urine Nitrate Negative (NEGATIVE) 03/18/18 13:40 Urine Bilirubin Negative (NEGATIVE) 03/18/18 13:40 Urine Urobilinogen 0.2 E.U./dL (<1 E.U./dL) 03/18/18 13:40 Ur Leukocyte Esterase Negative Georges/uL (NEGATIVE) 03/18/18 13:40 Urine Opiates Screen Positive (NEGATIVE) H 03/18/18 17:02 Urine Methadone Screen Negative (NEGATIVE) 03/18/18 17:02 Ur Barbiturates Screen Negative (NEGATIVE) 03/18/18 17:02 Ur Phencyclidine Scrn Negative (NEGATIVE) 03/18/18 17:02 Ur Amphetamines Screen Negative (NEGATIVE) 03/18/18 17:02 U Benzodiazepines Scrn Negative (NEGATIVE) 03/18/18 17:02 U Oth Cocaine Metabols Negative (NEGATIVE) 03/18/18 17:02 U Cannabinoids Screen Negative (NEGATIVE) 03/18/18 17:02 Alcohol, Quantitative 86 mg/dL (0-10) H 03/18/18 13:40 - Hospital Course Hospital Course: As per admission documentation, Patient is a 42 year old male with a past medical history of alcohol abuse, anxiety and colitis presenting to the emergency room with epigastric and left lower quadrant abdominal pain. The pain started suddenly this morning describing it as very sharp and severe in nature and occurring while patient is at rest. Patient reports dizziness/lightheadedness, severe nausea and 2 episodes of non-bloody, non-bilious emesis prior to arrival. Patient reports multiple episodes of similar abdominal pain in the past. This is confirmed by past encounters, most recently on 03/09 when he was evaluated in the emergency room and discharged home. Patient states that he is supposed to follow up with his GI doctors at [facility] to have a colonoscopy on 04/01/18. Patient reports 6 episodes of watery, loose, non-bloody bowel movements since this morning. Denies recent falls/trauma, travel, fevers, chills, sweats, constipation, chest pain, palpitations, vision changes, numbness, tingling, LOC , bleeding Hospital Course Patient was admitted for observation for intractable nausea/vomiting and abdominal pain. This patient was made NPO and treated with IV fluids and nausea medication. Upon waking the following morning, the patient stated he was no longer nauseous and felt hungry. He was started on a clear liquid diet and advanced. Patient did not experience any more episodes of nausea or vomiting while admitted. He was walked around the hospital floor by Resident Joyce without incident. The patient did not show any signs of alcohol withdrawal. He was counseled on cessation of alcohol multiple times. All of the patient's symptoms are believed to be secondary to the patient's alcohol abuse. The patient did not get any imaging while he was admitted due to recent imaging. Recent ECHO 01/27/18 - EF ~60%, mild TR, mild pulm HTN Recent Abd/Pelvis CT w/IV and PO contrast 03/09/18 - Mild colonic wall thickening ; correlate clinically for colitis. Mild fatty infiltration of the liver. afebrile The patient was discharged the following day with the following instructions. Discharge Instructions 1. Patient is to be discharged home. 2. Patient is to follow up with his primary care physician, Dr. Heard, within one week of discharge. 3. Patient is to follow up with his GI physician. - Patient currently has an appointment scheduled for April 01, 2018. 4. Patient is being discharged home on no medications. 5. All of the patient's symptoms are believed to be secondary to his alcohol intake. Patient is to avoid drinking any alcohol. 6. If patient experiences any new or worsening symptoms, please go to the nearest emergency facility. This is just a summary of the patient's hospital course. For full detail, please see EMR. Discharge Exam - Head Exam Head Exam: ATRAUMATIC, NORMOCEPHALIC - Eye Exam Eye Exam: EOMI, Normal appearance - ENT Exam ENT Exam: Mucous Membranes Moist - Respiratory Exam Respiratory Exam: Clear to PA & Lateral, NORMAL BREATHING PATTERN, UNREMARKABLE. absent: Accessory Muscle Use, Rales, Rhonchi, Wheezes, Respiratory Distress - Cardiovascular Exam Cardiovascular Exam: REGULAR RHYTHM, +S1, +S2 - GI/Abdominal Exam GI & Abdominal Exam: Normal Bowel Sounds, Soft, Unremarkable. absent: Distended , Firm, Guarding, Rigid, Tenderness - Extremities Exam Extremities exam: normal inspection, pedal pulses present - Neurological Exam Neurological exam: Alert, CN II-XII Intact, Normal Gait, Oriented x3 - Psychiatric Exam Psychiatric exam: Normal Affect, Normal Mood - Skin Skin Exam: Dry, Warm Discharge Plan - Follow Up Plan Condition: STABLE Disposition: HOME/ ROUTINE Instructions: Nausea and Vomiting, Adult (DC), Alcohol Abuse and Alcoholism (DC ), Abdominal Pain (ED) Additional Instructions: 1. Patient is to be discharged home. 2. Patient is to follow up with his primary care physician, Dr. Heard, within one week of discharge. 3. Patient is to follow up with his GI physician. - Patient currently has an appointment scheduled for April 01, 2018. 4. Patient is being discharged home on no medications. 5. All of the patient's symptoms are believed to be secondary to his alcohol intake. Patient is to avoid drinking any alcohol. 6. If patient experiences any new or worsening symptoms, please go to the nearest emergency facility. Referrals: Griselda Heard MD [Primary Care Provider] - <Addie Melendez - Last Filed: 03/19/18 15:14> Provider - Provider Date of Admission: 03/18/18 16:18 Attending physician: Addie Melendez MD Primary care physician: Griselda Heard MD Hospital Course - Lab Results Lab Results: Most Recent Lab Values WBC 3.0 10^3/ul (4.5-11.0) L D 03/19/18 06:00 RBC 4.19 10^6/uL (3.5-6.1) 03/19/18 06:00 Hgb 11.7 g/dL (14.0-18.0) L 03/19/18 06:00 Hct 35.8 % (42.0-52.0) L 03/19/18 06:00 MCV 85.4 fl (80.0-105.0) 03/19/18 06:00 MCH 27.9 pg (25.0-35.0) 03/19/18 06:00 MCHC 32.7 g/dl (31.0-37.0) 03/19/18 06:00 RDW 14.7 % (11.5-14.5) H 03/19/18 06:00 Plt Count 194 10^3/uL (120.0-450.0) 03/19/18 06:00 MPV 10.4 fl (7.0-11.0) 03/19/18 06:00 Gran % 25.0 % (50.0-68.0) L 03/19/18 06:00 Lymph % (Auto) 59.8 % (22.0-35.0) H 03/19/18 06:00 [place]upe % (Auto) 13.5 % (1.0-6.0) H 03/19/18 06:00 Eos % (Auto) 1.4 % (1.5-5.0) L 03/19/18 06:00 Baso % (Auto) 0.3 % (0.0-3.0) 03/19/18 06:00 Gran # 0.74 (1.4-6.5) L 03/19/18 06:00 Lymph # (Auto) 1.8 (1.2-3.4) 03/19/18 06:00 [place] # (Auto) 0.4 (0.1-0.6) 03/19/18 06:00 Eos # (Auto) 0.0 (0.0-0.7) 03/19/18 06:00 Baso # (Auto) 0.01 K/mm3 (0.0-2.0) 03/19/18 06:00 PT 11.9 SECONDS (9.4-12.5) 03/18/18 13:40 INR 1.04 (0.93-1.08) 03/18/18 13:40 APTT 26.6 Seconds (25.1-36.5) 03/18/18 13:40 pO2 76 mm/Hg (30-55) H 03/18/18 17:22 VBG pH 7.36 (7.32-7.43) 03/18/18 17: VBG pCO2 43.0 (40-60) 03/18/18 17:22 VBG HCO3 24.3 mmol/l (21-28) 03/18/18 17: VBG Total CO2 25.6 mmol.L (22-28) 03/18/18 17:22 VBG O2 Sat (Calc) 96.6 % (40-65) H 03/18/18 17:22 VBG Base Excess -1.3 mmol/L (0.0-2.0) L 03/18/18 17:22 VBG Potassium 3.5 mmol/L (3.6-5.2) L 03/18/18 17:22 Sodium 142.0 mmol/L (132-148) 03/18/18 17:22 Chloride 107.0 mmol/L (98-107) 03/18/18 17:22 Glucose 91 mg/dl (75-110) 03/18/18 17:22 Lactate 2.9 mmol/L (0.7-2.1) H 03/18/18 17:22 FiO2 21.0 % 03/18/18 17:22 Sodium 138 mmol/L (132-148) 03/19/18 06:00 Potassium 3.0 mmol/L (3.6-5.0) L 03/19/18 06:00 Chloride 97 mmol/L (98-107) L 03/19/18 06:00 Carbon Dioxide 27 mmol/L (21-33) 03/19/18 06:00 Anion Gap 17 (10-20) 03/19/18 06:00 BUN 8 mg/dL (7-21) 03/19/18 06:00 Creatinine 0.8 mg/dl (0.8-1.5) 03/19/18 06:00 Est GFR ( Amer) > 60 03/19/18 06:00 Est GFR (Non-Af Amer) > 60 03/19/18 06:00 Random Glucose 98 mg/dL (70-110) 03/19/18 06:00 Calcium 8.7 mg/dL (8.4-10.5) 03/19/18 06:00 Magnesium 1.5 mg/dL (1.7-2.2) L 03/19/18 06:30 Total Bilirubin 0.8 mg/dL (0.2-1.3) 03/19/18 06:00 AST 58 U/L (17-59) 03/19/18 06:00 ALT 36 U/L (7-56) 03/19/18 06:00 Alkaline Phosphatase 50 U/L (38-126) 03/19/18 06:00 Total Protein 7.2 g/dL (5.8-8.3) 03/19/18 06:00 Albumin 4.3 g/dL (3.0-4.8) 03/19/18 06:00 Globulin 2.9 gm/dL 03/19/18 06:00 Albumin/Globulin Ratio 1.4 (1.1-1.8) 03/19/18 06:00 Lipase 99 U/L (23-300) 03/18/18 13:40 Venous Blood Potassium 3.5 mmol/L (3.6-5.2) L 03/18/18 17:22 Urine Color Yellow (YELLOW) 03/18/18 13:40 Urine Appearance Clear (CLEAR) 03/18/18 13:40 Urine pH 6.0 (4.7-8.0) 03/18/18 13:40 Ur Specific [place] >= 1.030 (1.005-1.035) 03/18/18 13:40 Urine Protein Negative mg/dL (<30 mg/dL) 03/18/18 13:40 Urine Glucose (UA) Negative mg/dL (NEGATIVE) 03/18/18 13:40 Urine Ketones Negative mg/dL (NEGATIVE) 03/18/18 13:40 Urine Blood Negative (NEGATIVE) 03/18/18 13:40 Urine Nitrate Negative (NEGATIVE) 03/18/18 13:40 Urine Bilirubin Negative (NEGATIVE) 03/18/18 13:40 Urine Urobilinogen 0.2 E.U./dL (<1 E.U./dL) 03/18/18 13:40 Ur Leukocyte Esterase Negative Georges/uL (NEGATIVE) 03/18/18 13:40 Urine Opiates Screen Positive (NEGATIVE) H 03/18/18 17:02 Urine Methadone Screen Negative (NEGATIVE) 03/18/18 17:02 Ur Barbiturates Screen Negative (NEGATIVE) 03/18/18 17:02 Ur Phencyclidine Scrn Negative (NEGATIVE) 03/18/18 17:02 Ur Amphetamines Screen Negative (NEGATIVE) 03/18/18 17:02 U Benzodiazepines Scrn Negative (NEGATIVE) 03/18/18 17:02 U Oth Cocaine Metabols Negative (NEGATIVE) 03/18/18 17:02 U Cannabinoids Screen Negative (NEGATIVE) 03/18/18 17:02 Alcohol, Quantitative 86 mg/dL (0-10) H 03/18/18 13:40 Attending/Attestation - Attestation I have personally seen and examined this patient.: Yes I have fully participated in the care of the patient.: Yes I have reviewed all pertinent clinical information, including history, physical exam and plan: Yes Notes (Text): 03/19/18 15:07 42 year old male with past medical history of alcohol abuse, anxiety and colitis who presented with complaint of left sided abdominal pain, nausea, vomiting and diarrhea. He has had multiple admissions and ER visits with similar presentation. Most recent CT abd/pelvis was 03/09/18 which showed mild colonic wall thickening. He was admitted and started on iv fluids and antiemetics. The following day his symptoms improved. His diet was advanced which he tolerated. He was counselled on alcohol cessation. Leukopenia/anemia likely secondary to chronic ETOH abuse. His magnesium and potassium were repleted. Overall his symptoms have improved. He is discharged home to follow up with his pmd. Follow up with GI. Counselled on alcohol abstinence. Addie Melendez MD Hospitalist.
[2018-03-19 14:40] VITALS: PULSE 71
== END 2018-03-19 14:46 | disposition home or self-care (01) ==
LOC: ED 12:21 → ERH 16:18 → 5RNO 17:23 → 3RNO 20:53
PROVIDERS: ADMIT Internal Medicine; ATTEND Internal Medicine
DX: K52.9 Noninfective gastroenteritis and colitis, unspecified (principal); F10.10 Alcohol abuse, uncomplicated; D72.819 Decreased white blood cell count, unspecified; D64.9 Anemia, unspecified; G62.9 Polyneuropathy, unspecified; I10 Essential (primary) hypertension; I27.20 Pulmonary hypertension, unspecified; I07.1 Rheumatic tricuspid insufficiency; F17.210 Nicotine dependence, cigarettes, uncomplicated; K76.0 Fatty (change of) liver, not elsewhere classified; F14.90 Cocaine use, unspecified, uncomplicated; F41.9 Anxiety disorder, unspecified; Z87.81 Personal history of (healed) traumatic fracture
CPT/HCPCS: 36415; 74019; 80053; 80320; 80324; 80345; 80346; 80349; 80353; 80358; 80361; 81003; 82803; 83690; 83735; 83992; 85025; 85610; 85730; 96361; 96365; 96372; 96375; 96376; 99285; C9113; G0378; J1170; J1650; J1885; J2060; J2270; J2405; J3411; J3475; J3480; J7040; J7070

== ENCOUNTER 2018-03-24 12:00 | Emergency (ER) | payer MEDICAID ==
[2018-03-24 12:05] VITALS: RESP 18; TEMP 98.3
[2018-03-24 12:08] VITALS: BMI 24.5
[2018-03-24] MEDS ORDERED: Multivitamin (MVI) 10 ML, Thiamine 100 MG, Folic Acid 1 MG in Sodium Chloride 0.9% 1,00... IV ONE (12:12)
[2018-03-24] MEDS ORDERED: Iohexol 240 (50 ml) ONE (12:17)
--- NOTE | 2018-03-24 12:18 | ED PDOC ---
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 Patient notes he drank alcohol last night and felt fine, but woke up this morning with abdominal pain, went to a parade where he experienced an episode of vomiting. Patient went home to lie down but his symptoms caused a panic attack with hyperventilation. Patient denies any fever, chills, chest pain, shortness of breath, diarrhea, back pain , neck pain, headache, dizziness, or any other complaints. Time/Duration: Prior to Arrival Symptom Onset: Gradual Symptom Course: Unchanged Activities at Onset: Light Context: Walking Past Medical History - Provider Review Nursing Documentation Reviewed: Yes - Past History Past History: No Previous - Infectious Disease Hx of Infectious Diseases: None - Tetanus Immunization Tetanus Immunization: Unknown - Past Medical History Past Medical History: No Previous - Cardiac Hx Cardiac Disorders: Yes Hx Hypertension: Yes - Pulmonary Hx Respiratory Disorders: No Other/Comment: light smoker - Neurological Hx Neurological Disorder: Yes Hx Dizziness: Yes Other/Comment: neuropathy - HEENT Hx HEENT Disorder: No - Renal Hx Renal Disorder: No - Endocrine/Metabolic Hx Endocrine Disorders: No - Hematological/Oncological Hx Blood Disorders: No - Integumentary Hx Dermatological Disorder: No - Musculoskeletal/Rheumatological Hx Falls: No - Gastrointestinal Other/Comment: Colitis - Genitourinary/Gynecological Hx Genitourinary Disorders: No - Psychiatric Hx Anxiety: Yes Hx Substance Use: Yes - Past Surgical History Past Surgical History: Non-Contributing - Surgical History Hx Musculoskeletal Surgery: Yes (R foot sx with rods/screws placed) Hx Orthopedic Surgery: Yes - Anesthesia Hx Anesthesia: Yes Hx Anesthesia Reactions: No Hx Malignant Hyperthermia: No - Suicidal Assessment Feels Threatened In Home Enviroment: No Family/Social History - Physician Review Nursing Documentation Reviewed: Yes Family/Social History: Unknown Family HX Smoking Status: Heavy Smoker > 10 Cigarettes Daily Hx Alcohol Use: Yes Hx Substance Use: Yes Substance used: marijuana & cocaine Hx Substance Use Treatment: No Allergies/Home Meds Allergies/Adverse Reactions: Allergies No Known Allergies Allergy (Verified 05/13/18 16:06) Review of Systems - Physician Review All systems were reviewed & negative as marked: Yes - Review of Systems Constitutional: Normal Eyes: Normal ENT: Normal Respiratory: Normal. absent: SOB, Cough Cardiovascular: Normal. absent: Chest Pain Gastrointestinal: Abdominal Pain, Vomiting Genitourinary Male: Normal. absent: Dysuria, Frequency, Hematuria, Urinary Output Changes Musculoskeletal: Normal. absent: Back Pain, Neck Pain Skin: Normal. absent: Rash Neurological: Normal. absent: Headache, Dizziness Endocrine: Normal Hemo/Lymphatic: Normal Psychiatric: Normal Physical Exam Vital Signs Reviewed: Yes Vital Signs Temp Pulse Resp BP Pulse Ox 03/24/18 15:45 68 18 138/81 100 03/24/18 13:50 71 18 140/84 100 03/24/18 12:04 98.3 F 75 18 144/98 H 97 Temperature: Afebrile Blood Pressure: Normal Pulse: Regular Respiratory Rate: Normal Appearance: Positive for: Well-Appearing, Non-Toxic, Comfortable Pain Distress: None Mental Status: Positive for: Alert and Oriented X 3 - Systems Exam Head: Present: Atraumatic, Normocephalic Pupils: Present: PERRL Extroacular Muscles: Present: EOMI Conjunctiva: Present: Normal Mouth: Present: Moist Mucous Membranes Neck: Present: Normal Range of Motion Respiratory/Chest: Present: Clear to Auscultation, Good Air Exchange. No: Respiratory Distress, Accessory Muscle Use Cardiovascular: Present: Regular Rate and Rhythm, Normal S1, S2. No: Murmurs Abdomen: No: Tenderness, Distention, Peritoneal Signs Back: Present: Normal Inspection Upper Extremity: Present: Normal Inspection. No: Cyanosis, Edema Lower Extremity: Present: Normal Inspection. No: Edema Neurological: Present: GCS=15, CN II-XII Intact, Speech Normal Skin: Present: Warm, Dry, Normal Color. 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 Plan: -- CT abd + pelvis -- labs -- lipase -- sodium chloride -- ativan -- zofran -- urinalysis -- Reassess and disposition Progress Notes: 03/24/18 14:59 CT Abd & Pelvis reviewed, shows: LOWER THORAX: Lung bases clear. No infiltrate effusion or basilar pneumothorax. New There is a small hiatal hernia with minor wall thickening of distal esophagus likely due to protrusion of gastric mucosa. Heart size normal. No significant pericardial effusion. LIVER: Liver exhibits relatively normal size measuring nearly 18 cm in CC dimension. Mild diffuse fatty hepatic infiltration. Re- demonstrated is a tiny sub cm low- attenuation focus within the posterior aspect right lobe liver too small to characterize though may represent tiny cyst or hemangioma. Portal and splenic veins are opacified. GALLBLADDER AND BILE DUCTS: Gallbladder is physiologically distended. No evidence of intraluminal gallbladder calculi. PANCREAS: The pancreas appears unremarkable without masses collections or calcifications. SPLEEN: Spleen exhibits normal size and attenuation pattern without mass collection or calcification. . ADRENALS: No adrenal lesions are identified. KIDNEYS AND URETERS: Kidneys demonstrate symmetric nephrograms. No evidence of nephrolithiasis or hydronephrosis. . BLADDER: Urinary bladder is incompletely distended which may in part account for thick- walled appearance. Muscular hypertrophy presumably contributes. Correlation with urinalysis recommended to exclude the possibility of a cystitis would be less likely though not completely excluded. Other intrinsic/invasive wall lesion not excluded. REPRODUCTIVE: Prostate gland is enlarged measuring approximately 5 cm in transverse dimension. Findings likely due to BPH however correlation with PSA recommended APPENDIX: Normal-appearing appendix. BOWEL: Evaluation of the bowel is somewhat limited due to incomplete opacification. The incompletely distended which in part accounts for thick-walled appearance. Visualized loops of small bowel exhibit normal contour and caliber. No evidence of acute mechanical small bowel obstruction with oral contrast material seen extending into the colon to the level of the mid sigmoid colon. There is moderate wall thickening of the cecum ascending and most of the transverse colon consistent with colitis the which is new since the prior exam. Previously noted wall thickening along the descending colon lymph questionably minimally improved. PERITONEUM: Unremarkable. No fluid collection. No free air. Small fat containing umbilical hernia. LYMPH NODES: Unremarkable. No enlarged lymph nodes. VASCULATURE: Unremarkable. No aortic aneurysm. BONES: Minor multilevel degenerative spondylosis of the lower thoracic and lumbar spine. There are no acute compression fractures no retropulsed fragments. OTHER FINDINGS: None. IMPRESSION: Findings consistent with colitis; rule out infectious and or inflammatory causes as described. There are no free or loculated fluid collections. No gross free intraperitoneal air. Mild fatty hepatic infiltration. Enlarged prostate gland likely due to BPH however correlation with PSA recommended. Wall thickening of the urinary bladder likely due to incomplete distention and muscular hypertrophy. Correlation with urinalysis. Rule out other intrinsic wall lesion. Incidental note made of a tiny subcentimeter focus low attenuation posterior aspect right lobe liver too small to characterize. Followup interval could be performed to assess stability - Lab Interpretations Lab Results: 03/24/18 13:26 03/24/18 13:26 Lab Results 03/24/18 13:26: Alcohol, Quantitative 18 H 03/24/18 13:26: Urine Opiates Screen Negative, Urine Methadone Screen Negative, Ur Barbiturates Screen Negative, Ur Phencyclidine Scrn Negative, Ur Amphetamines Screen Negative, U Benzodiazepines Scrn Negative, U Oth Cocaine Metabols Positive H, U Cannabinoids Screen Negative 03/24/18 13:26: Sodium 138, Potassium 4.1, Chloride 102, Carbon Dioxide 20 L, Anion Gap 20, BUN 16, Creatinine 0.9, Est GFR ( Amer) > 60, Est GFR (Non- Af Amer) > 60, Random Glucose 99, Calcium 9.5, Total Bilirubin 0.2, AST 60 H, ALT 50, Alkaline Phosphatase 57, Total Protein 7.6, Albumin 4.6, Globulin 3.0, Albumin/Globulin Ratio 1.5, Lipase 135 03/24/18 13:26: Urine Color Light yellow, Urine Appearance Clear, Urine pH 6.0, Ur Specific [place] 1.025, Urine Protein 30 H, Urine Glucose (UA) Negative, Urine Ketones Negative, Urine Blood Trace-intact H, Urine Nitrate Negative, Urine Bilirubin Negative, Urine Urobilinogen 0.2, Ur Leukocyte Esterase Negative , Urine RBC 1 - 3, Urine WBC 5 - 10, Ur Epithelial Cells 0 - 2, Urine Bacteria Mod 03/24/18 13:26: PT 11.2, INR 0.97 03/24/18 13:26: WBC 3.2 L, RBC 4.07, Hgb 11.6 L, Hct 35.1 L, MCV 86.2, MCH 28.5 , MCHC 33.0, RDW 15.3 H, Plt Count 197, MPV 9.8, Gran % 60.6, Lymph % (Auto) 31.5, [place] % (Auto) 7.3 H, Eos % (Auto) 0.0 L, Baso % (Auto) 0.6, Gran # 1.92, Lymph # (Auto) 1.0 L, [place] # (Auto) 0.2, Eos # (Auto) 0.0, Baso # (Auto) 0.02 - RAD Interpretation Radiology Orders: 03/24/18 12:12 ABD PELVIS PO & IV CONTRAST [CT] Stat - Medication Orders Current Medication Orders: Levofloxacin (Levaquin) 750 mg PO STAT STA PRN Reason: Protocol Stop: 03/24/18 16:16 Metronidazole (Flagyl) 500 mg PO STAT STA PRN Reason: Protocol Stop: 03/24/18 16:16 Discontinued Medications Multivitamins/Vitamin C 10 ml/Thiamine HCl 100 mg/ Folic Acid 1 mg/ Sodium Chloride 1,011.2 mls @ 1,000 mls/hr IV .Q1H1M ONE Stop: 03/24/18 13:12 Last Admin: 03/24/18 13:37 Dose: 1,000 mls/hr eMAR Start Stop Document 03/24/18 13:37 SF (Rec: 03/24/18 13:38 SF [facility] [id number] Intravenous Solution Start Date 03/24/18 Start Time 13:37 End Date 03/24/18 End time 14:38 Total Infusion Time 61 Lorazepam (Ativan) 2 mg IVP ONCE ONE PRN Reason: Protocol Stop: 03/24/18 12:13 Last Admin: 03/24/18 13:35 Dose: 2 mg IVP Administration Document 03/24/18 13:35 SF (Rec: 03/24/18 13:35 SF [email or web address] Charges for Administration # of IVP Administrations 1 Ondansetron HCl (Zofran Inj) 8 mg IVP STAT STA Stop: 03/24/18 12:16 Last Admin: 03/24/18 13:35 Dose: 8 mg IVP Administration Document 03/24/18 13:35 SF (Rec: 03/24/18 13:35 SF [id number] Charges for Administration # of IVP Administrations 1 - Scribe Statement The provider has reviewed the documentation as recorded by the Scribe Cierra Sosa All medical record entries made by the Scribe were at my direction and personally dictated by me. I have reviewed the chart and agree that the record accurately reflects my personal performance of the history, physical exam, medical decision making, and the department course for this patient. I have also personally directed, reviewed, and agree with the discharge instructions and disposition. Disposition/Present on Arrival - Present on Arrival Any Indicators Present on Arrival: No History of DVT/PE: No History of Uncontrolled Diabetes: No Urinary Catheter: No History Surgical Site Infection Following: None - Disposition Have Diagnosis and Disposition been Completed?: Yes Diagnosis: Colitis Disposition: HOME/ ROUTINE Disposition Time: 16:20 Patient Plan: Discharge Condition: GOOD Additional Instructions: Mr Craig - Sorry that you have colitis again. Flagyl is an antibiotic that you can not take alcohol with. If you do you will become violently ill. You need to take the Flagyl and the Levaquin for ten days. No Alcohol or Cocaine during the time you are taking the antibiotics. Return to us if worse or problems. Follow up with your doctor next week. Andrei- Dr. Ananth Berg Prescriptions: levoFLOXacin 750 mg in D5W [Levaquin 750MG] 750 mg IVPB DAILY #10 bag metroNIDAZOLE [Flagyl] 500 mg PO TID #30 tab
[2018-03-24 13:35] LABS: BASO # 0.02 K/mm3 (0.0-2.0); BASO % 0.6 % (0.0-3.0); GRAN # 1.92 (1.4-6.5); GRAN % 60.6 % (50.0-68.0); HEMOGLOBIN 11.6 g/dL (14.0-18.0); LYMPH % 31.5 % (22.0-35.0); MEAN CELL VOLUME 86.2 fl (80.0-105.0); MEAN CORPUSCULAR HEMOGLOBIN 28.5 pg (25.0-35.0); MEAN PLATELET VOLUME 9.8 fl (7.0-11.0); MONO # 0.2 (0.1-0.6); MONO % 7.3 % (1.0-6.0); RBC 4.07 10^6/uL (3.5-6.1); RED CELL DISTRIBUTION WIDTH 15.3 % (11.5-14.5); WHITE BLOOD COUNT 3.2 10^3/ul (4.5-11.0)
[2018-03-24 13:45] LABS: INR 0.97 (0.93-1.08); PROTHROMBIN TIME 11.2 SECONDS (9.4-12.5)
[2018-03-24 13:48] LABS: ALB/GLOB RATIO 1.5 (1.1-1.8); ALBUMIN 4.6 g/dL (3.0-4.8); ALT/SGPT 50 U/L (7-56); AST/SGOT 60 U/L (17-59); BLOOD UREA NITROGEN 16 mg/dL (7-21); CALCIUM 9.5 mg/dL (8.4-10.5); GFR AFRICAN-AMERICAN > 60; GFR NON-AFRICAN AMERICAN > 60; LIPASE 135 U/L (23-300)
[2018-03-24 13:49] LABS: URINE APPEARANCE CLEAR (CLEAR); URINE BILIRUBIN NEGATIVE (NEGATIVE); URINE BLOOD TRACE-INTACT (NEGATIVE); URINE COLOR LIGHT YELLOW (YELLOW); URINE GLUCOSE (UA) NEGATIVE (NEGATIVE); URINE LEUKOCYTE ESTERASE NEGATIVE Leu/uL (NEGATIVE); URINE PROTEIN 30 mg/dL (<30 mg/dL); URINE UROBILINOGEN 0.2 E.U./dL (<1 E.U./dL)
[2018-03-24 13:50] VITALS: O2SAT 100
[2018-03-24] MEDS ORDERED: Iohexol 300 100 ML IJ ONE (13:50)
[2018-03-24 13:55] LABS: BARBITURATES, UR NEGATIVE (NEGATIVE); BENZODIAZEPINES, UR NEGATIVE (NEGATIVE); OPIATES, UR NEGATIVE (NEGATIVE); PHENCYCLIDINE, UR NEGATIVE (NEGATIVE)
[2018-03-24 14:07] LABS: URINE BACTERIA MOD (NEG); URINE EPITHELIAL CELLS 0 - 2 /hpf (0-5)
--- NOTE | 2018-03-24 14:51 | CT ---
PROCEDURE: CT scan abdomen pelvis 03/16/2018 HISTORY: Abdominal pain. History of colitis COMPARISON: Comparison made with prior CT scan abdomen pelvis 03/09/2018 TECHNIQUE: Contiguous helical/ transaxial images of the abdomen and pelvis performed following oral and intravenous contrast. Additional 2D sagittal and coronal reformats generated. This CT exam was performed using one or more of the following dose reduction techniques: Automated exposure control, adjustment of the mA and/or kV according to patient size, and/or use of iterative reconstruction technique. Contrast dose: 100 cc Visipaque 320 contrast material Radiation dose: Total exam DLP = 289.65 mGy-cm. The the the FINDINGS: LOWER THORAX: Lung bases clear. No infiltrate effusion or basilar pneumothorax. New There is a small hiatal hernia with minor wall thickening of distal esophagus likely due to protrusion of gastric mucosa. Heart size normal. No significant pericardial effusion. LIVER: Liver exhibits relatively normal size measuring nearly 18 cm in CC dimension. Mild diffuse fatty hepatic infiltration. Re- demonstrated is a tiny sub cm low-attenuation focus within the posterior aspect right lobe liver too small to characterize though may represent tiny cyst or hemangioma. Portal and splenic veins are opacified. GALLBLADDER AND BILE DUCTS: Gallbladder is physiologically distended. No evidence of intraluminal gallbladder calculi. PANCREAS: The pancreas appears unremarkable without masses collections or calcifications. SPLEEN: Spleen exhibits normal size and attenuation pattern without mass collection or calcification. . ADRENALS: No adrenal lesions are identified. KIDNEYS AND URETERS: Kidneys demonstrate symmetric nephrograms. No evidence of nephrolithiasis or hydronephrosis. . BLADDER: Urinary bladder is incompletely distended which may in part account for thick-walled appearance. Muscular hypertrophy presumably contributes. Correlation with urinalysis recommended to exclude the possibility of a cystitis would be less likely though not completely excluded. Other intrinsic/invasive wall lesion not excluded. REPRODUCTIVE: Prostate gland is enlarged measuring approximately 5 cm in transverse dimension. Findings likely due to BPH however correlation with PSA recommended APPENDIX: Normal-appearing appendix. BOWEL: Evaluation of the bowel is somewhat limited due to incomplete opacification. The incompletely distended which in part accounts for thick-walled appearance. Visualized loops of small bowel exhibit normal contour and caliber. No evidence of acute mechanical small bowel obstruction with oral contrast material seen extending into the colon to the level of the mid sigmoid colon. There is moderate wall thickening of the cecum ascending and most of the transverse colon consistent with colitis the which is new since the prior exam. Previously noted wall thickening along the descending colon lymph questionably minimally improved. PERITONEUM: Unremarkable. No fluid collection. No free air. Small fat containing umbilical hernia. LYMPH NODES: Unremarkable. No enlarged lymph nodes. VASCULATURE: Unremarkable. No aortic aneurysm. BONES: Minor multilevel degenerative spondylosis of the lower thoracic and lumbar spine. There are no acute compression fractures no retropulsed fragments. OTHER FINDINGS: None. IMPRESSION: Findings consistent with colitis; rule out infectious and or inflammatory causes as described. There are no free or loculated fluid collections. No gross free intraperitoneal air. Mild fatty hepatic infiltration. Enlarged prostate gland likely due to BPH however correlation with PSA recommended. Wall thickening of the urinary bladder likely due to incomplete distention and muscular hypertrophy. Correlation with urinalysis. Rule out other intrinsic wall lesion. Incidental note made of a tiny subcentimeter focus low attenuation posterior aspect right lobe liver too small to characterize. Followup interval could be performed to assess stability
[2018-03-24] MEDS ORDERED: levoFLOXacin 750 MG TAB PO STA (16:15)
[2018-03-24 16:42] VITALS: BP 136/78; PULSE 65
== END 2018-03-24 16:48 | disposition home or self-care (01) ==
LOC: ED 12:00
DX: K52.9 Noninfective gastroenteritis and colitis, unspecified (principal); I10 Essential (primary) hypertension; F17.210 Nicotine dependence, cigarettes, uncomplicated
CPT/HCPCS: 74177; 80053; 80320; 80324; 80345; 80346; 80349; 80353; 80358; 80361; 81001; 83690; 83992; 85025; 85610; 87086; 96365; 96375; 99285; J2060; J2405; J3411; J7030; Q9966; Q9967

== ENCOUNTER 2018-04-02 08:36 | Emergency (ER) | payer MEDICAID ==
[2018-04-02 08:36] VITALS: BMI 24.5
[2018-04-02 08:52] VITALS: O2SAT 99
[2018-04-02] MEDS ORDERED: Alum-Mag Hydrox-Simethicone Susp (30 mL) PO STA (09:28)
[2018-04-02] MEDS ORDERED: Atrop/Hyosc/Scopal/PB Elixir (120 ml) PO STA (09:28)
[2018-04-02] MEDS ORDERED: Sodium Chloride 0.9% 1,000 ML IV STA ×2 (09:28→10:45)
--- NOTE | 2018-04-02 09:28 | ED PDOC ---
Arrival/HPI - General Chief Complaint: Abdominal Pain Time Seen by Provider: 04/02/18 09:16 Historian: Patient - History of Present Illness Narrative History of Present Illness (Text): 04/02/18 09:26 A 42 year old male, whose past medical history includes alcohol abuse, colitis, hypertension and anxiety, presents to the emergency department complaining of diffused abdominal pain, nausea, vomiting, and diarrhea since last night. Denies fever, sob, cp, rectal bleeding, or urinary symptoms. Patient admits drinking alcohol last night. Time/Duration: Other (see hpi) Context: Home Past Medical History - Provider Review Nursing Documentation Reviewed: Yes - Past History Past History: No Previous - Infectious Disease Hx of Infectious Diseases: None - Tetanus Immunization Tetanus Immunization: Unknown - Past Medical History Past Medical History: No Previous - Cardiac Hx Cardiac Disorders: Yes Hx Hypertension: Yes - Pulmonary Hx Respiratory Disorders: No Other/Comment: light smoker - Neurological Hx Neurological Disorder: Yes Hx Dizziness: Yes Other/Comment: neuropathy - HEENT Hx HEENT Disorder: No - Renal Hx Renal Disorder: No - Endocrine/Metabolic Hx Endocrine Disorders: No - Hematological/Oncological Hx Blood Disorders: No - Integumentary Hx Dermatological Disorder: No - Musculoskeletal/Rheumatological Hx Falls: No - Gastrointestinal Other/Comment: Colitis - Genitourinary/Gynecological Hx Genitourinary Disorders: No - Psychiatric Hx Anxiety: Yes Hx Substance Use: Yes - Past Surgical History Past Surgical History: Non-Contributing - Surgical History Hx Musculoskeletal Surgery: Yes (R foot sx with rods/screws placed) Hx Orthopedic Surgery: Yes - Anesthesia Hx Anesthesia: Yes Hx Anesthesia Reactions: No Hx Malignant Hyperthermia: No - Suicidal Assessment Feels Threatened In Home Enviroment: No Family/Social History - Physician Review Nursing Documentation Reviewed: Yes Family/Social History: Other (noncontributory) Smoking Status: Heavy Smoker > 10 Cigarettes Daily Hx Alcohol Use: Yes Hx Substance Use: Yes Substance used: marijuana & cocaine Hx Substance Use Treatment: No Allergies/Home Meds Allergies/Adverse Reactions: Allergies No Known Allergies Allergy (Verified 03/09/18 16:06) Review of Systems - Review of Systems Constitutional: Normal. absent: Fatigue, Weight Change, Fevers Eyes: Normal ENT: Normal Respiratory: Normal. absent: SOB, Cough Cardiovascular: Normal. absent: Chest Pain, Palpitations, Edema, Calf Pain, RUBI , Orthopnea, Syncope Gastrointestinal: Abdominal Pain, Diarrhea, Nausea, Vomiting Genitourinary Male: Normal. absent: Dysuria, Frequency, Hematuria Musculoskeletal: Normal Skin: Normal. absent: Rash Neurological: Normal. absent: Headache, Dizziness, Focal Weakness, Gait Changes , Speech Changes, Facial Droop, Disequilibrium, Seizure Endocrine: Normal Hemo/Lymphatic: Normal Psychiatric: Normal Physical Exam Vital Signs Temp Pulse Resp BP Pulse Ox 04/02/18 15:30 98.3 F 65 18 138/81 99 04/02/18 13:37 68 18 142/99 H 99 04/02/18 11:40 71 18 147/125 H 99 04/02/18 10:39 98.5 F 79 17 147/102 H 99 04/02/18 08:49 98.2 F 92 H 18 144/96 H 99 Temperature: Afebrile Blood Pressure: Normal Pulse: Regular Respiratory Rate: Normal Appearance: Positive for: Well-Appearing, Non-Toxic, Comfortable Pain Distress: None Mental Status: Positive for: Alert and Oriented X 3 - Systems Exam Head: Present: Atraumatic, Normocephalic Pupils: Present: PERRL Extroacular Muscles: Present: EOMI Conjunctiva: Present: Normal Mouth: Present: Moist Mucous Membranes Neck: Present: Normal Range of Motion Respiratory/Chest: Present: Clear to Auscultation, Good Air Exchange. No: Respiratory Distress, Accessory Muscle Use Cardiovascular: Present: Regular Rate and Rhythm, Normal S1, S2. No: Murmurs Abdomen: No: Tenderness, Distention, Peritoneal Signs, Rebound, Guarding Back: Present: Normal Inspection. No: CVA Tenderness Upper Extremity: Present: Normal Inspection. No: Cyanosis, Edema Lower Extremity: Present: Normal Inspection, NORMAL PULSES, Temperature Abnormalties, Neurovascularly Intact, Capillary Refill < 2 s. No: Edema Neurological: Present: GCS=15, CN II-XII Intact, Speech Normal Skin: Present: Warm, Dry, Normal Color. No: Rashes Psychiatric: Present: Alert, Oriented x 3, Normal Insight, Normal Concentration Medical Decision Making ED Course and Treatment: 04/02/18 12:00 Patient is currently sleeping comfortably. No acute distress. Patient symptoms has improved. No vomiting during ED visit. 04/02/18 15:15 Re-evaluation. Patient feels better. Discussed results and plan with patient who expresses understanding. All questions answered and there is agreement with the plan to discharge home with instructions. Patient stable for discharge. Return if symptoms persist or worsen. Abdomen soft, nt/nd. Lungs CTA b/l, no wheezing. Patient feels well. He said he s hungry, and he was found eating a sandwich with juice while waiting for ED discharge paper. Re-evaluation Time: 15:15 Reassessment Condition: Re-examined, Improved - Lab Interpretations Lab Results: 04/02/18 10:15 04/02/18 10:15 Lab Results 04/02/18 14:20: pO2 70 H, VBG pH 7.38, VBG pCO2 44.0, VBG HCO3 26.0, VBG Total CO2 27.4, VBG O2 Sat (Calc) 95.6 H, VBG Base Excess 0.5, VBG Potassium 3.6, Sodium 140.0, Chloride 108.0 H, Glucose 88, Lactate 1.5, FiO2 21.0, Venous Blood Potassium 3.6 04/02/18 10:15: Sodium 145, Chloride 102, Potassium 3.9, Carbon Dioxide 22, Anion Gap 24 H, BUN 9, Creatinine 0.8, Est GFR ( Amer) > 60, Est GFR (Non -Af Amer) > 60, Random Glucose 96, Calcium 9.5, Magnesium 1.4 L, Total Bilirubin 0.4, AST 345 H D, ALT 207 H, Alkaline Phosphatase 66, Total Protein 7.9, Albumin 4.8, Globulin 3.1, Albumin/Globulin Ratio 1.6, Lipase 98 04/02/18 10:15: pO2 258 H, VBG pH 7.48 H, VBG pCO2 32.0 L, VBG HCO3 23.8, VBG Total CO2 24.8, VBG O2 Sat (Calc) 100.1 H, VBG Base Excess 0.9, VBG Potassium 3.5 L, Sodium 141.0, Chloride 105.0, Glucose 102, Lactate 5.7 H*, FiO2 21.0, Venous Blood Potassium 3.5 L 04/02/18 10:15: Urine Color Yellow, Urine Appearance Cloudy, Urine pH 7.0, Ur Specific [place] 1.025, Urine Protein 100 H, Urine Glucose (UA) Negative, Urine Ketones Negative, Urine Blood Large H, Urine Nitrate Negative, Urine Bilirubin Negative, Urine Urobilinogen 0.2, Ur Leukocyte Esterase Moderate H, Urine RBC Tntc, Urine WBC Tntc, Urine Bacteria Large 04/02/18 10:15: WBC 2.3 L* D, RBC 4.11, Hgb 12.0 L, Hct 35.5 L, MCV 86.4, MCH 29.2, MCHC 33.8, RDW 15.3 H, Plt Count 223, MPV 10.4, Gran % 52.7, Lymph % (Auto ) 32.6, [place] % (Auto) 13.0 H, Eos % (Auto) 0.4 L, Baso % (Auto) 1.3, Gran # 1.21 L, Lymph # (Auto) 0.8 L, [place] # (Auto) 0.3, Eos # (Auto) 0.0, Baso # (Auto ) 0.03 I have reviewed the lab results: Yes Interpretation: No sign. chg./baseline - Medication Orders Current Medication Orders: Discontinued Medications Al Hydrox/Mg Hydrox/Simethicone (Maalox Plus 30 Ml) 30 ml PO STAT STA Stop: 04/02/18 09:29 Last Admin: 04/02/18 10:21 Dose: 30 ml Belladonna/Phenobarbital ( Elixir) 10 ml PO STAT STA Stop: 04/02/18 09:29 Last Admin: 04/02/18 10:25 Dose: 10 ml Cephalexin Monohydrate (Keflex) 500 mg PO STAT STA PRN Reason: Protocol Stop: 04/02/18 12:12 Last Admin: 04/02/18 12:31 Dose: 500 mg Chlordiazepoxide (Librium) 50 mg PO STAT STA PRN Reason: Protocol Stop: 04/02/18 09:31 Last Admin: 04/02/18 10:24 Dose: 50 mg Sodium Chloride (Sodium Chloride 0.9%) 1,000 mls @ 1,000 mls/hr IV .Q1H STA Stop: 04/02/18 10:27 Last Admin: 04/02/18 10:20 Dose: 1,000 mls/hr eMAR Start Stop Document 04/02/18 10:20 [place] (Rec: 04/02/18 10:21 [email or web address]) Intravenous Solution Start Date 04/02/18 Start Time 10:20 End Date 04/02/18 End time 11:20 Total Infusion Time 60 Sodium Chloride (Sodium Chloride 0.9%) 1,000 mls @ 999 mls/hr IV .Q1H1M STA Stop: 04/02/18 11:45 Last Admin: 04/02/18 12:31 Dose: 999 mls/hr eMAR Start Stop Document 04/02/18 12:31 LA (Rec: 04/02/18 12:31 LA [id number]) Intravenous Solution Start Date 04/02/18 Start Time 12:31 End Date 04/02/18 End time 13:32 Total Infusion Time 61 Lidocaine HCl (Lidocaine 2% Viscous) 10 ml MM STAT STA Stop: 04/02/18 09:29 Last Admin: 04/02/18 10:21 Dose: 10 ml Metoclopramide HCl (Reglan) 10 mg IVP STAT STA Stop: 04/02/18 09:29 Last Admin: 04/02/18 10:24 Dose: 10 mg IVP Administration Document 04/02/18 10:24 LA (Rec: 04/02/18 10:24 [place] [email or web address]) Charges for Administration # of IVP Administrations 1 Pantoprazole Sodium (Protonix Inj) 40 mg IVP STAT STA Stop: 04/02/18 09:29 Last Admin: 04/02/18 10:23 Dose: 40 mg IVP Administration Document 04/02/18 10:23 LA (Rec: 04/02/18 10:23 [place] [email or web address]) Charges for Administration # of IVP Administrations 1 Thiamine HCl (Vitamin B1 Inj) 100 mg IM STAT STA Stop: 04/02/18 09:33 Last Admin: 04/02/18 10:23 Dose: 100 mg IM Administration Charges Document 04/02/18 10:23 [place] (Rec: 04/02/18 10:24 [place] [email or web address]) Injection Site MAR Injection Site Right Arm Charges for Administration # of IM Administrations 1 Disposition/Present on Arrival - Present on Arrival Any Indicators Present on Arrival: No History of DVT/PE: No History of Uncontrolled Diabetes: No Urinary Catheter: No History of Decub. Ulcer: No History Surgical Site Infection Following: None - Disposition Have Diagnosis and Disposition been Completed?: Yes Diagnosis: Nonspecific abdominal pain, Alcohol abuse, History of colitis, Nausea & vomiting, UTI (urinary tract infection) Disposition: HOME/ ROUTINE Disposition Time: 15:16 Patient Plan: Discharge Condition: IMPROVED Discharge Instructions (ExitCare): Urinary Tract Infections in Adults, Alcohol Abuse and Alcoholism (DC), Nausea and Vomiting, Adult (DC) Additional Instructions: Call Dr. Ochoa Urologist for revaluation. Take medication as instructed. Stop abusing alcohol. Eat healthy and drink enough fluids. Return to emergency if symptoms worsen. Call Dr. Hutton sheeter machine operator for revaluation of colitis in 1-2 days Prescriptions: Cephalexin [Keflex] 500 mg PO BID #20 capsule Famotidine [Pepcid] 40 mg PO DAILY #10 tablet Ondansetron ODT [Zofran ODT] 4 mg PO Q4H PRN #15 odt PRN Reason: Nausea/Vomiting Referrals: Griselda Heard MD [Primary Care Provider] - Follow up with primary Salo Hutton MD [Staff Provider] - Follow up with primary Paco Ochoa MD [Staff Provider] - Follow up with primary Forms: [employer] (Romansh)
[2018-04-02] MEDS ORDERED: Thiamine 100 mg/ml Inj IM STA (09:32)
[2018-04-02 10:32] LABS: VENOUS BLOOD GAS BASE EXCESS 0.9 mmol/L (0.0-2.0); VENOUS BLOOD GAS PO2 258 mm/Hg (30-55); VENOUS BLOOD PH 7.48 (7.32-7.43)
[2018-04-02 10:33] LABS: BASO # 0.03 K/mm3 (0.0-2.0); BASO % 1.3 % (0.0-3.0); EOS % 0.4 % (1.5-5.0); GRAN # 1.21 (1.4-6.5); GRAN % 52.7 % (50.0-68.0); LYMPH # 0.8 (1.2-3.4); LYMPH % 32.6 % (22.0-35.0); MEAN CELL VOLUME 86.4 fl (80.0-105.0); MEAN CORPUSCULAR HEMOGLOBIN 29.2 pg (25.0-35.0); MEAN CORPUSCULAR HGB CONC 33.8 g/dl (31.0-37.0); MEAN PLATELET VOLUME 10.4 fl (7.0-11.0); MONO # 0.3 (0.1-0.6); RBC 4.11 10^6/uL (3.5-6.1); RED CELL DISTRIBUTION WIDTH 15.3 % (11.5-14.5)
[2018-04-02 10:46] LABS: URINE BILIRUBIN NEGATIVE (NEGATIVE); URINE BLOOD LARGE (NEGATIVE); URINE GLUCOSE (UA) NEGATIVE (NEGATIVE); URINE LEUKOCYTE ESTERASE MODERATE Leu/uL (NEGATIVE); URINE PROTEIN 100 mg/dL (<30 mg/dL); URINE UROBILINOGEN 0.2 E.U./dL (<1 E.U./dL)
[2018-04-02 10:47] LABS: URINE APPEARANCE CLOUDY (CLEAR); URINE COLOR YELLOW (YELLOW)
[2018-04-02 10:52] LABS: ALB/GLOB RATIO 1.6 (1.1-1.8); ALBUMIN 4.8 g/dL (3.0-4.8); ALT/SGPT 207 U/L (7-56); AST/SGOT 345 U/L (17-59); BLOOD UREA NITROGEN 9 mg/dL (7-21); CALCIUM 9.5 mg/dL (8.4-10.5); GFR AFRICAN-AMERICAN > 60; GFR NON-AFRICAN AMERICAN > 60; LIPASE 98 U/L (23-300); WHITE BLOOD COUNT 2.3 10^3/ul (4.5-11.0)
[2018-04-02 10:57] LABS: URINE BACTERIA LARGE (NEG); URINE RBC TNTC /hpf (0-2); URINE WBC TNTC /hpf (0-6)
[2018-04-02 11:41] VITALS: RESP 18
[2018-04-02 14:31] LABS: VENOUS BLOOD GAS BASE EXCESS 0.5 mmol/L (0.0-2.0); VENOUS BLOOD GAS PO2 70 mm/Hg (30-55); VENOUS BLOOD PH 7.38 (7.32-7.43)
[2018-04-02 15:30] VITALS: BP 138/81; PULSE 65; TEMP 98.3
--- NOTE | 2018-04-02 15:46 | CARD ---
APPROVED REPORT EKG Measurement Heart [id number] <Conclusion> Normal sinus rhythm Minimal voltage criteria for LVH, may be normal variant Early repolarization. No change
== END 2018-04-02 15:30 | disposition home or self-care (01) ==
LOC: ED 08:36
DX: N39.0 Urinary tract infection, site not specified (principal); F10.10 Alcohol abuse, uncomplicated; R10.9 Unspecified abdominal pain; R11.2 Nausea with vomiting, unspecified; K52.9 Noninfective gastroenteritis and colitis, unspecified; I10 Essential (primary) hypertension; F17.210 Nicotine dependence, cigarettes, uncomplicated
CPT/HCPCS: 80053; 81001; 82803; 83690; 83735; 85025; 87086; 93005; 96361; 96372; 96374; 96375; 99284; C9113; J2765; J3411; J7030

== ENCOUNTER 2018-04-07 11:19 | Observation (INO) | payer MEDICAID ==
[2018-04-07 11:21] VITALS: BMI 21.9
[2018-04-07] MEDS ORDERED: Alum-Mag Hydrox-Simethicone Susp (30 mL) PO STA (12:10)
[2018-04-07] MEDS ORDERED: Sodium Chloride 0.9% 1,000 ML IV STA (12:10)
--- NOTE | 2018-04-07 12:17 | ED PDOC ---
Arrival/HPI - General Chief Complaint: Abdominal Pain Time Seen by Provider: 04/07/18 11:54 Historian: Patient - History of Present Illness Narrative History of Present Illness (Text): 04/07/18 12:12 42 year old male, whose history includes colitis and alcohol abuse, presents to the Emergency department complaining of vomiting x4 since this morning. Patient also complains of left lower quadrant abdominal pain, diarrhea, and shortness of breath secondary to anxiety. Patient denies any fever, chills, chest pain, urinary symptoms, back pain, neck pain, headache, dizziness, or any other complaints. Patient is currently scheduled for a GI followup on 04/12/18 for a colonoscopy but reports that he needs cardiac clearance first PMD: Dr. Griselda Heard 04/07/18 17:00 Time/Duration: 4-6 hours Symptom Onset: Sudden Symptom Course: Unchanged Context: Home Past Medical History - Provider Review Nursing Documentation Reviewed: Yes - Past History Past History: No Previous - Infectious Disease Hx of Infectious Diseases: None - Tetanus Immunization Tetanus Immunization: Unknown - Past Medical History Past Medical History: No Previous - Cardiac Hx Cardiac Disorders: Yes Hx Hypertension: Yes - Pulmonary Hx Respiratory Disorders: No Other/Comment: light smoker - Neurological Hx Neurological Disorder: Yes Hx Dizziness: Yes Other/Comment: neuropathy - HEENT Hx HEENT Disorder: No - Renal Hx Renal Disorder: No - Endocrine/Metabolic Hx Endocrine Disorders: No - Hematological/Oncological Hx Blood Disorders: No - Integumentary Hx Dermatological Disorder: No - Musculoskeletal/Rheumatological Hx Falls: No - Gastrointestinal Other/Comment: Colitis - Genitourinary/Gynecological Hx Genitourinary Disorders: No - Psychiatric Hx Anxiety: Yes Hx Substance Use: Yes - Past Surgical History Past Surgical History: Non-Contributing - Surgical History Hx Musculoskeletal Surgery: Yes (R foot sx with rods/screws placed) Hx Orthopedic Surgery: Yes - Anesthesia Hx Anesthesia: Yes Hx Anesthesia Reactions: No Hx Malignant Hyperthermia: No - Suicidal Assessment Feels Threatened In Home Enviroment: No Family/Social History - Physician Review Nursing Documentation Reviewed: Yes Family/Social History: Unknown Family HX Smoking Status: Heavy Smoker > 10 Cigarettes Daily Hx Alcohol Use: Yes Hx Substance Use: Yes Substance used: marijuana & cocaine Hx Substance Use Treatment: No Allergies/Home Meds Allergies/Adverse Reactions: Allergies No Known Allergies Allergy (Verified 03/09/18 16:06) Review of Systems - Review of Systems Constitutional: absent: Fevers, Night Sweats ENT: absent: Rhinorrhea Respiratory: absent: Cough Cardiovascular: absent: Chest Pain Gastrointestinal: Abdominal Pain (left lower quadrant), Diarrhea, Nausea, Vomiting Genitourinary Male: absent: Dysuria Musculoskeletal: absent: Back Pain, Neck Pain Skin: absent: Rash Neurological: absent: Headache, Dizziness Psychiatric: Anxiety (with associated shortness of breath) Physical Exam Vital Signs Reviewed: Yes Vital Signs Temp Pulse Resp BP Pulse Ox 04/07/18 11:21 98.1 F 81 16 142/100 H 99 Temperature: Afebrile Blood Pressure: Hypertensive Pulse: Regular Respiratory Rate: Normal Appearance: Positive for: Well-Appearing, Non-Toxic, Comfortable Pain Distress: None Mental Status: Positive for: Alert and Oriented X 3 - Systems Exam Head: Present: Atraumatic, Normocephalic Pupils: Present: PERRL Extroacular Muscles: Present: EOMI Conjunctiva: Present: Normal Mouth: Present: Moist Mucous Membranes Neck: Present: Normal Range of Motion Respiratory/Chest: Present: Clear to Auscultation, Good Air Exchange. No: Respiratory Distress, Accessory Muscle Use Cardiovascular: Present: Regular Rate and Rhythm, Normal S1, S2. No: Murmurs Abdomen: Present: Tenderness (left lower quadrant). No: Distention, Peritoneal Signs, Rebound, Guarding Back: Present: Normal Inspection Upper Extremity: Present: Normal Inspection. No: Cyanosis, Edema Lower Extremity: Present: Normal Inspection. No: Edema Neurological: Present: GCS=15, CN II-XII Intact, Speech Normal Skin: Present: Warm, Dry, Normal Color. No: Rashes Psychiatric: Present: Alert, Oriented x 3, Normal Insight, Normal Concentration Medical Decision Making ED Course and Treatment: 04/07/18 12:21 Impression: 42 year old male presents to the Emergency department complaining of vomiting this morning with associated diarrhea, abdominal pain, and anxiety. Differential Diagnosis included but are not limited to: colitis Plan: -- CT scan of the abdomen/pelvis -- EKG -- Labs -- Pepcid, Toradol, Maalox, and Sodium Chloride IV fluids -- Reassess and disposition Prior Visits: Notes and results from previous visits were reviewed. Patient was last seen in the emergency department on 04/02/18, was diagnosed with Nonspecific abdominal pain, Alcohol abuse, History of colitis, Nausea & vomiting, UTI (urinary tract infection), and was discharged home. Patient was also evaluated on 03/24/[address] that showed colitis; patient was discharged with Levaquin x10 days and Flagyl x10 days. Progress Notes: 04/07/18 14:07 EKG shows NSR at 84bpm with LVH. 04/07/18 14:34 CT abd/pelvis FINDINGS: LOWER THORAX: Unremarkable. LIVER: Unremarkable. No gross lesion or ductal dilatation. GALLBLADDER AND BILE DUCTS: Unremarkable. PANCREAS: Unremarkable. No gross lesion or ductal dilatation. SPLEEN: Unremarkable. ADRENALS: Unremarkable. No mass. KIDNEYS AND URETERS: Unremarkable. No hydronephrosis. No solid mass. VASCULATURE: Unremarkable. No aortic aneurysm. BOWEL: There is lack of distension and mild mural thickening in the transverse and descending colon consistent with mild colitis. APPENDIX: Normal appendix. PERITONEUM: Unremarkable. No free fluid. No free air. LYMPH NODES: Unremarkable. No enlarged lymph nodes. BLADDER: Unremarkable. REPRODUCTIVE: Unremarkable. BONES: No acute fracture. OTHER FINDINGS: None. IMPRESSION: Lack of distension a mild mural thickening in the transverse and descending colon consistent with mild colitis 04/07/18 16:29 IV antibiotics started. Patient has persistent vomiting and pain after po challenge. Will need IV antibiotics and admission. 04/07/18 16:35 Discussed case in detail with hospitalist who will accept the patient. - Lab Interpretations Lab Results: 04/07/18 12:52 04/07/18 12:52 Lab Results 04/07/18 12:52: Alcohol, Quantitative 45 H 04/07/18 12:52: Sodium 144, Potassium 3.8, Chloride 104, Carbon Dioxide 23, Anion Gap 21 H, BUN 17, Creatinine 0.8, Est GFR ( Amer) > 60, Est GFR ( Non-Af Amer) > 60, Random Glucose 94, Calcium 9.5, Phosphorus 3.5, Magnesium 1.4 L, Total Bilirubin 0.3, AST 85 H D, ALT 125 H, Alkaline Phosphatase 61, Total Protein 8.3, Albumin 5.1 H, Globulin 3.2, Albumin/Globulin Ratio 1.6, Lipase 124 04/07/18 12:52: WBC 2.6 L*, RBC 4.28, Hgb 12.3 L, Hct 37.4 L, MCV 87.4, MCH 28.7 , MCHC 32.9, RDW 15.1 H, Plt Count 163, MPV 10.1, Gran % 55.7, Lymph % (Auto) 35.3 H, [place] % (Auto) 7.8 H, Eos % (Auto) 0.4 L, Baso % (Auto) 0.8, Gran # 1.44 , Lymph # (Auto) 0.9 L, [place] # (Auto) 0.2, Eos # (Auto) 0.0, Baso # (Auto) 0.02 - RAD Interpretation Radiology Orders: 04/07/18 12:11 ABD & PELVIS IV CONTRAST ONLY [CT] Stat - Medication Orders Current Medication Orders: Discontinued Medications Al Hydrox/Mg Hydrox/Simethicone (Maalox Plus 30 Ml) 30 ml PO STAT STA Stop: 04/07/18 12:11 Last Admin: 04/07/18 13:17 Dose: 30 ml Famotidine (Pepcid) 20 mg IVP STAT STA Stop: 04/07/18 12:11 Last Admin: 04/07/18 13:17 Dose: 20 mg IVP Administration Document 04/07/18 13:17 [place] (Rec: 04/07/18 13:17 [place] [id number]) Charges for Administration # of IVP Administrations 1 Sodium Chloride (Sodium Chloride 0.9%) 1,000 mls @ 999 mls/hr IV .Q1H1M STA Stop: 04/07/18 13:10 Last Admin: 04/07/18 13:18 Dose: 999 mls/hr eMAR Start Stop Document 04/07/18 13:18 [place] (Rec: 04/07/18 13:18 [place] [id number]) Intravenous Solution Start Date 04/07/18 Start Time 13:18 Ciprofloxacin (Cipro 400mg/200ml Dsw) 400 mg in 200 mls @ 133.3 mls/hr IVPB STAT STA PRN Reason: Protocol Stop: 04/07/18 16:16 Metronidazole (Flagyl) 500 mg in 100 mls @ 100 mls/hr IVPB STAT STA PRN Reason: Protocol Stop: 04/07/18 15:45 Last Admin: 04/07/18 15:30 Dose: 100 mls/hr eMAR Start Stop Document 06/11/18 15:30 HI (Rec: 04/07/18 15:31 [id number]) Intravenous Solution Start Date 04/07/18 Start Time 15:31 Ketorolac Tromethamine (Toradol) 30 mg IVP STAT STA Stop: 04/07/18 12:11 Last Admin: 04/07/18 13:17 Dose: 30 mg MAR Pain Assessment Document 04/07/18 13:17 HI (Rec: 04/07/18 13:18 [id number]) Pain Reassessment Is this a pain reassessment? No Sleep Is patient sleeping during reassessment? No Presence of Pain Presence of Pain Yes Location Pain Location Body Site Abdomen Description Description Constant Intensity of Pain at present 6 IVP Administration Document 04/07/18 13:17 HI (Rec: 04/07/18 13:18 [id number]) Charges for Administration # of IVP Administrations 1 Re-Assess: MAR Pain Assessment Document 04/07/18 14:17 [place] (Rec: 04/07/18 14:24 [id number]) Pain Reassessment Is this a pain reassessment? Yes Sleep Is patient sleeping during reassessment? No Presence of Pain Presence of Pain Yes Pain Scale Used Pain Scale Used Numeric Location Pain Location Body Site Abdomen Description Description Sharp Intensity of Pain at present 5 Acceptable Level of Pain 0 Pain Behavior Moaning Morphine Sulfate (Morphine) 4 mg IVP STAT STA Stop: 04/07/18 14:47 Last Admin: 04/07/18 15:31 Dose: 4 mg MAR Pain Assessment Document 04/07/18 15:31 [place] (Rec: 04/07/18 15:31 [id number]) Pain Reassessment Is this a pain reassessment? Yes Sleep Is patient sleeping during reassessment? No Presence of Pain Presence of Pain Yes Pain Scale Used Pain Scale Used Numeric Location Pain Location Body Site Abdomen Description Description Constant Intensity of Pain at present 8 Acceptable Level of Pain 0 Pain Behavior Rubbing Site Facial Grimacing IVP Administration Document 04/07/18 15:31 [place] (Rec: 04/07/18 15:31 [id number]) Charges for Administration # of IVP Administrations 1 - Scribe Statement The provider has reviewed the documentation as recorded by the Scribe Dominguez Ennis All medical record entries made by the Scribe were at my direction and personally dictated by me. I have reviewed the chart and agree that the record accurately reflects my personal performance of the history, physical exam, medical decision making, and the department course for this patient. I have also personally directed, reviewed, and agree with the discharge instructions and disposition. Disposition/Present on Arrival - Present on Arrival Any Indicators Present on Arrival: No History of DVT/PE: No History of Uncontrolled Diabetes: No Urinary Catheter: No History of Decub. Ulcer: No History Surgical Site Infection Following: None - Disposition Have Diagnosis and Disposition been Completed?: Yes Diagnosis: Intractable pain, Intractable vomiting, Colitis Disposition: HOSPITALIZED Disposition Time: 16:29 Patient Plan: Observation Patient Problems: Current Active Problems Problem Status Onset Colitis Acute Intractable pain Acute Intractable vomiting Acute Condition: FAIR Prescriptions: Moxifloxacin [Avelox] 400 mg PO DAILY #10 tab Referrals: Griselda Heard MD [Primary Care Provider] - Follow up with primary Forms: [employer] (Tongan)
[2018-04-07 13:31] LABS: BASO # 0.02 K/mm3 (0.0-2.0); BASO % 0.8 % (0.0-3.0); EOS % 0.4 % (1.5-5.0); GRAN # 1.44 (1.4-6.5); GRAN % 55.7 % (50.0-68.0); HEMOGLOBIN 12.3 g/dL (14.0-18.0); LYMPH # 0.9 (1.2-3.4); LYMPH % 35.3 % (22.0-35.0); MEAN CELL VOLUME 87.4 fl (80.0-105.0); MEAN CORPUSCULAR HEMOGLOBIN 28.7 pg (25.0-35.0); MEAN CORPUSCULAR HGB CONC 32.9 g/dl (31.0-37.0); MEAN PLATELET VOLUME 10.1 fl (7.0-11.0); MONO # 0.2 (0.1-0.6); MONO % 7.8 % (1.0-6.0); RBC 4.28 10^6/uL (3.5-6.1); RED CELL DISTRIBUTION WIDTH 15.1 % (11.5-14.5)
[2018-04-07 13:35] LABS: WHITE BLOOD COUNT 2.6 10^3/ul (4.5-11.0)
[2018-04-07] MEDS ORDERED: Iohexol 350 MG/100 ML VIAL ONE (13:40)
[2018-04-07 13:41] LABS: ALB/GLOB RATIO 1.6 (1.1-1.8); ALBUMIN 5.1 g/dL (3.0-4.8); ALT/SGPT 125 U/L (7-56); AST/SGOT 85 U/L (17-59); BLOOD UREA NITROGEN 17 mg/dL (7-21); CALCIUM 9.5 mg/dL (8.4-10.5); GFR AFRICAN-AMERICAN > 60; GFR NON-AFRICAN AMERICAN > 60; LIPASE 124 U/L (23-300)
--- NOTE | 2018-04-07 14:30 | CT ---
PROCEDURE: CT Abdomen and Pelvis with contrast HISTORY: LLQ tenderness, hx of colitis COMPARISON: None. TECHNIQUE: Contrast dose: 100 cc of Omni 350 Radiation dose: Total exam DLP = 268 mGy-cm. This CT exam was performed using one or more of the following dose reduction techniques: Automated exposure control, adjustment of the mA and/or kV according to patient size, and/or use of iterative reconstruction technique. FINDINGS: LOWER THORAX: Unremarkable. LIVER: Unremarkable. No gross lesion or ductal dilatation. GALLBLADDER AND BILE DUCTS: Unremarkable. PANCREAS: Unremarkable. No gross lesion or ductal dilatation. SPLEEN: Unremarkable. ADRENALS: Unremarkable. No mass. KIDNEYS AND URETERS: Unremarkable. No hydronephrosis. No solid mass. VASCULATURE: Unremarkable. No aortic aneurysm. BOWEL: There is lack of distension and mild mural thickening in the transverse and descending colon consistent with mild colitis. APPENDIX: Normal appendix. PERITONEUM: Unremarkable. No free fluid. No free air. LYMPH NODES: Unremarkable. No enlarged lymph nodes. BLADDER: Unremarkable. REPRODUCTIVE: Unremarkable. BONES: No acute fracture. OTHER FINDINGS: None. IMPRESSION: Lack of distension a mild mural thickening in the transverse and descending colon consistent with mild colitis
[2018-04-07] MEDS ORDERED: Morphine 4 mg/ml ISec IVP STA (14:46)
[2018-04-07] MEDS ORDERED: Ciprofloxacin 400mg/200ml D5W 400 MG/200 ML BAG IVPB STA (14:46)
[2018-04-07] MEDS ORDERED: metroNIDAZOLE IV 500 mg/100 ml 500 MG/100 ML BAG IVPB STA (14:46)
[2018-04-07] MEDS ORDERED: Morphine 2 mg/ml ISec IVP PRN (17:22)
[2018-04-07] MEDS ORDERED: Multivitamin (MVI) 10 ML, Thiamine 100 MG, Folic Acid 1 MG in Sodium Chloride 0.9% 1,00... IV ONE (17:23)
--- NOTE | 2018-04-07 18:23 | CP.PCM.HP ---
<Krish Hayes - Last Filed: 04/07/18 19:12> History of Present Illness - History of Present Illness History of Present Illness: 42 year old male with a past medical history of colitis and alcohol abuse comes into the hospital today complaining of abdominal pain since this morning. The patient states it started earlier this morning after waking up. The patiient reports four episodes of non-billious, non-bloody emesis in conjunction with the pain. The patient also reports an episode of diarrhea in conjunction with the abdominal pain. The patient denies any alleviating or modifying factors. He denies any chest pain, shortness of breath, fevers, chills, changes in vision , syncopal episodes, headaches, or any other complaints. PMD: Dr. Griselda Suggs Past medical history: Colitis and alcohol abuse Allergies: Denies Medications: Surgical history: right ankle surgery Social history:history of alcohol abuse. Denies illicit drug use. Present on Admission - Present on Admission Any Indicators Present on Admission: No Review of Systems - Constitutional Constitutional: absent: Chills, Daytime Sleepiness, Headache, Sleep Apnea - EENT Eyes: absent: Change in Vision, Loss of Peripheral Vision, Sees Flashes, Loss of Vision Ears: absent: Ear Discharge, Dizziness Nose/Mouth/Throat: absent: Nasal Discharge, Post Nasal Drip, Sinus Pressure, Dental Pain - Cardiovascular Cardiovascular: absent: Chest Pain, Diaphoresis, Irregular Heart Rhythm, Pain Radiating to Arm/Neck/Jaw, Leg Ulcers, Slow Heart Rate - Respiratory Respiratory: absent: Hemoptysis, Chest Congestion, Change in Mucous Color - Gastrointestinal Gastrointestinal: Abdominal Pain, Nausea, Vomiting. absent: Bloating, Constipation, Heartburn - Genitourinary Genitourinary: absent: Change in Urinary Stream, Difficulty Urinating, Nocturia - Musculoskeletal Musculoskeletal: absent: Arthralgias, Atrophy, Limited Range of Motion, Neck Pain, Numbness - Integumentary Integumentary: absent: Alopecia, Changing Lesions, Lesions, Skin Pain - Neurological Neurological: absent: Abnormal Hearing, Burning Sensations, Numbness, Lack of Coordination - Psychiatric Psychiatric: absent: Anhedonia, Behavioral Changes, Homicidal Ideation, Hopelessness - Hematologic/Lymphatic Hematologic: absent: As Per HPI, Easy Bleeding, Easy Bruising Past Patient History - Infectious Disease Hx of Infectious Diseases: None - Tetanus Immunizations Tetanus Immunization: Unknown - Past Medical History & Family History Past Medical History?: Yes - Past Social History Smoking Status: Heavy Smoker > 10 Cigarettes Daily - CARDIAC Hx Cardiac Disorders: Yes Hx Hypertension: Yes - PULMONARY Hx Respiratory Disorders: No Other/Comment: light smoker - NEUROLOGICAL Hx Neurological Disorder: Yes Hx Dizziness: Yes Other/Comment: neuropathy - HEENT Hx HEENT Problems: No - RENAL Hx Chronic Kidney Disease: No - ENDOCRINE/METABOLIC Hx Endocrine Disorders: No - HEMATOLOGICAL/ONCOLOGICAL Hx Blood Disorders: No - INTEGUMENTARY Hx Dermatological Problems: No - MUSCULOSKELETAL/RHEUMATOLOGICAL Hx Falls: No - GASTROINTESTINAL Other/Comment: Colitis - GENITOURINARY/GYNECOLOGICAL Hx Genitourinary Disorders: No - PSYCHIATRIC Hx Anxiety: Yes Hx Substance Use: Yes - SURGICAL HISTORY Hx Musculoskeletal Surgery: Yes (R foot sx with rods/screws placed) Hx Orthopedic Surgery: Yes - ANESTHESIA Hx Anesthesia: Yes Hx Anesthesia Reactions: No Hx Malignant Hyperthermia: No Meds Home Medications: Home Medication List Medication Instructions Recorded Confirmed Type Moxifloxacin [Avelox] 400 mg PO DAILY #10 tab 04/07/18 Rx Ciprofloxacin HCl [Cipro] 500 mg PO Q12 7 Days tablet 04/08/18 Rx Metronidazole [Flagyl] 500 mg PO Q12 7 Days tablet 04/08/18 Rx Multivit-Minerals/Folic Acid 200 mcg PO DAILY #20 tab.chew 04/08/18 Rx [Adult Multi Gummies] Thiamine [Vitamin B-1] 100 mg PO DAILY #20 tab 04/08/18 Rx Allergies/Adverse Reactions: Allergies Allergy/AdvReac Type Severity Reaction Status Date / Time No Known Allergies Allergy Verified 04/07/18 21:42 Physical Exam - Head Exam Head Exam: ATRAUMATIC, NORMAL INSPECTION, NORMOCEPHALIC - Eye Exam Eye Exam: EOMI, Normal appearance, PERRL Pupil Exam: NORMAL ACCOMODATION - ENT Exam ENT Exam: Mucous Membranes Moist, Normal Oropharynx - Neck Exam Neck exam: Positive for: Normal Inspection - Respiratory Exam Respiratory Exam: Clear to Auscultation Bilateral, NORMAL BREATHING PATTERN - Cardiovascular Exam Cardiovascular Exam: REGULAR RHYTHM, +S1, +S2 - GI/Abdominal Exam GI & Abdominal Exam: Normal Bowel Sounds, Tenderness (LLQ quandrant pain). absent: Hypoactive Bowel Sounds, Organomegaly - Extremities Exam Extremities exam: Positive for: normal inspection. Negative for: full ROM, joint swelling, pedal edema, tenderness - Back Exam Back exam: NORMAL INSPECTION. absent: paraspinal tenderness - Neurological Exam Neurological exam: Alert, CN II-XII Intact, Oriented x3 - Psychiatric Exam Psychiatric exam: Normal Affect, Normal Mood - Skin Skin Exam: Dry, Intact, Normal Color, Warm Results - Vital Signs Recent Vital Signs: Last Vital Signs Temp 98.1 F 04/07/18 11:21 Pulse 81 04/07/18 11:21 Resp 16 04/07/18 11:21 BP 142/100 H 04/07/18 11:21 Pulse Ox 99 04/07/18 11:21 - Labs Result Diagrams: 04/07/18 12:52 04/07/18 12:52 Assessment & Plan - Assessment and Plan (Free Text) Assessment: 42 year old male with a past medical history of colitis and alcohol abuse who is being admitted for colitis. Plan: 1. Colitis -Abdomen/pelvis CT: showed lack of distention, a mild mural thickening in transverse descending colon consistent with colitis -Patient received Ciprofloxacin and Flagyl in the E.D. -Flagyl and Rocephin -GI consulted. Help appreciated. -Patient was to follow up with GI on 04/02/16 for colonoscopy, however must get a stress test prior. 2. Etoh abuse -Ativan 2Q4 IVP PRN for withdrawal symptoms. -Patient currently asymptomatic. Will consider more coverage if patient shows signs of withdrawal. 3.Tranaminitis -AST 85/ ALT 125. Likely secondary to alcohol abuse. -Will monitor at this time. PPX -Protonix -Heparin 5000 Units Q12 SC Plan discussed with Attending Dr. Nusrat Hayes, PGY-1 <Luisito Silverio - Last Filed: 04/08/18 17:23> Results - Vital Signs Recent Vital Signs: Last Vital Signs Temp 97.9 F 04/08/18 07:44 Pulse 71 04/08/18 07:44 Resp 19 04/08/18 07:44 BP 138/96 H 04/08/18 07:44 Pulse Ox 97 04/08/18 07:44 - Labs Result Diagrams: 04/08/18 05:30 04/08/18 05:30 Labs: Laboratory Results - last 24 hr 04/08/18 04/08/18 04/08/18 05:30 05:30 11:31 WBC 2.5 L* RBC 4.04 Hgb 11.5 L Hct 35.4 L MCV 87.6 MCH 28.5 MCHC 32.5 RDW 14.9 H Plt Count 151 MPV 11.1 H Gran % 31.2 L Lymph % (Auto) 52.0 H Yancey % (Auto) 13.2 H Eos % (Auto) 2.4 Baso % (Auto) 1.2 Gran # 0.78 L Lymph # (Auto) 1.3 Yancey # (Auto) 0.3 Eos # (Auto) 0.1 Baso # (Auto) 0.03 Sodium 139 Potassium 3.2 L Chloride 102 Carbon Dioxide 25 Anion Gap 15 BUN 10 Creatinine 0.9 Est GFR ( Amer) > 60 Est GFR (Non-Af Amer) > 60 Random Glucose 95 Calcium 8.7 Total Bilirubin 0.7 AST 60 H D ALT 89 H Alkaline Phosphatase 55 Total Protein 7.1 Albumin 4.3 Globulin 2.7 Albumin/Globulin Ratio 1.6 Urine Opiates Screen Positive H Urine Methadone Screen Negative Ur Barbiturates Screen Positive H Ur Phencyclidine Scrn Negative Ur Amphetamines Screen Negative U Benzodiazepines Scrn Positive H U Oth Cocaine Metabols Positive H U Cannabinoids Screen Negative Attending/Attestation - Attestation I have personally seen and examined this patient.: Yes I have fully participated in the care of the patient.: Yes I have reviewed all pertinent clinical information: Yes Notes (Text): 04/08/18 17:21 Medical record note made by the resident after discussion with my direction and input after the patient was personally seen and examined by me. I have reviewed the chart and agree that the record accurately reflects by personal performance of the history, physical exam, data review, and medical decision-making, in the course for the patient. I have also personally directed the plan of care. 42 year old male with a past medical history of colitis ,alcohol and drug abuse is admitted with abdominal pain Abdomen/pelvis CT: showed lack of distention, a mild mural thickening in transverse descending colon consistent with colitis Agreed with IV fluid, antibiotics . We will watch for alcohol withdrawal. Issue of ongoing alcohol and drug abuse was discussed in detail. Management plan was discussed in detail with patient. Education was provided.
--- NOTE | 2018-04-08 00:30 | CARD ---
APPROVED REPORT EKG Measurement Heart [id number] <Conclusion> Normal sinus rhythm Minimal voltage criteria for LVH, may be normal variant Borderline ECG
[2018-04-08] MEDS ORDERED: metroNIDAZOLE IV 500 mg/100 ml 500 MG/100 ML BAG IVPB SCH (06:00)
[2018-04-08 06:29] LABS: BASO # 0.03 K/mm3 (0.0-2.0); BASO % 1.2 % (0.0-3.0); EOS # 0.1 (0.0-0.7); EOS % 2.4 % (1.5-5.0); GRAN # 0.78 (1.4-6.5); GRAN % 31.2 % (50.0-68.0); HEMOGLOBIN 11.5 g/dL (14.0-18.0); LYMPH # 1.3 (1.2-3.4); MEAN CELL VOLUME 87.6 fl (80.0-105.0); MEAN CORPUSCULAR HEMOGLOBIN 28.5 pg (25.0-35.0); MEAN CORPUSCULAR HGB CONC 32.5 g/dl (31.0-37.0); MEAN PLATELET VOLUME 11.1 fl (7.0-11.0); MONO # 0.3 (0.1-0.6); MONO % 13.2 % (1.0-6.0); RBC 4.04 10^6/uL (3.5-6.1); RED CELL DISTRIBUTION WIDTH 14.9 % (11.5-14.5)
[2018-04-08 06:50] LABS: WHITE BLOOD COUNT 2.5 10^3/ul (4.5-11.0)
[2018-04-08] MEDS ORDERED: Magnesium 2 gm/50 ml NS 2 GM/50 ML BAG IVPB ONE (07:11)
[2018-04-08] MEDS ORDERED: Dextrose 5%/0.45% NS 1,000 ML IV SCH (07:15)
[2018-04-08] MEDS ORDERED: Potassium Chloride 20 MEQ in Dextrose 5%/0.45% NS 1,000 ML IV SCH (07:16)
--- NOTE | 2018-04-08 07:20 | CP.PCM.PN ---
Subjective - Date & Time of Evaluation Date of Evaluation: 04/08/18 Time of Evaluation: 06:45 - Subjective Subjective: Medicine Progress note Objective - Vital Signs/Intake and Output Vital Signs (last 24 hours): Temp Pulse Resp BP Pulse Ox 99.2 F 67 20 138/93 H 95 04/07/18 21:43 04/07/18 21:43 04/07/18 21:43 04/07/18 21:43 04/07/18 20:29 Intake and Output: 04/08/18 04/08/18 06:59 18:59 Intake Total 920 Output Total 425 Balance 495 - Medications Medications: Current Medications Heparin Sodium (Porcine) (Heparin) 5,000 units SC Q12 ALEXANDRA PRN Reason: Protocol Last Admin: 04/07/18 21:15 Dose: 5,000 units Ceftriaxone Sodium (Rocephin 1 Gram Ivpb) 1 gm in 100 mls @ 100 mls/hr IVPB DAILY ALEXANDRA PRN Reason: Protocol Metronidazole (Flagyl) 500 mg in 100 mls @ 100 mls/hr IVPB Q8 ALEXANDRA PRN Reason: Protocol Last Admin: 04/08/18 05:58 Dose: 100 mls/hr Magnesium 2 gm/50 ml NS (Magnesium Sulfate 2 Gm/50 Ml Ns) 2 gm in 50 mls @ 50 mls/hr IVPB ONCE ONE Stop: 04/08/18 08:10 Potassium Chloride/Dextrose 100 ml/ Dextrose/Sodium Chloride 1,100 mls @ 100 mls/hr IV .Q11H ALEXANDRA Lorazepam (Ativan) 2 mg IVP Q6 PRN; Protocol PRN Reason: Symptoms of alcohol withdrawl Morphine Sulfate (Morphine) 2 mg IVP Q4 PRN PRN Reason: Pain, severe (8-10) Last Admin: 04/07/18 21:15 Dose: 2 mg Pantoprazole Sodium (Protonix Inj) 40 mg IVP DAILY ALEXANDRA - Labs Labs: 04/08/18 05:30 Assessment and Plan - Assessment and Plan (Free Text) Assessment: 42M with pmhx of colitis and ETOH abuse who is being admitted for colitis. Plan: Colitis - Abdomen/pelvis CT: showed lack of distention, a mild mural thickening in transverse descending colon consistent with colitis - Patient received Ciprofloxacin and Flagyl in the E.D. - Flagyl and Rocephin - plan to discharge on PO meds - C/S GI; all recs appreciated - Patient was to follow up with GI on 04/02/16 for colonoscopy, however must get a stress test prior. - NPO - IVF Etoh abuse - Ativan 2Q4 IVP PRN for withdrawal symptoms. - Patient currently asymptomatic. Will consider more coverage if patient shows signs of withdrawal. - [facility] protocol Tranaminitis -AST 85/ ALT 125. Likely secondary to alcohol abuse. -Will monitor at this time. PPX -Protonix -Heparin 5000 Units Q12 SC
--- NOTE | 2018-04-08 07:31 | CP.PCM.CON ---
<Linwood Dan - Last Filed: 04/08/18 12:55> History of Present Illness - History of Present Illness History of Present Illness: PGY5 GI Fellow Consult Note Patient is a 42yo male with PMHx significant for recurrent episodes of colitis, polysubstance abuse (EtOH, cocaine, marijuana), HTN who presented to the ED with abdominal pain, nausea and vomiting. The patient developed sudden onset left sided abdominal pain yesterday morning. Soon after, he became nauseated and vomited multiple times, developed diarrhea and felt fatigued. After multiple episodes of vomiting, he became lightheaded and decided to come to the hospital for further evaluation. He has had multiple admissions in the past for similar complaints. On admission, CT with IV contrast only showed some mild transverse and descending colitis. Patient admit to heavy EtOH and cocaine use this past weekend. He was supposed to have outpatient colonoscopy on 04/01/18 but it was cancelled due to an abnormal stress test. Patient was set to have follow up cardiac evaluation this week. Denies any fever, chills, nausea, vomiting, weight loss, rectal bleeding, travel or sick contacts. 12 system ROS performed and negative except where stated PMHx: See HPI PSHx: right ankle ORIF FHx: Discussed with patient and he denies Social: Polysubstance abuse - EtOH, cocaine, marijuana, +tobacco use Endo: No prior endoscopic evaluations Past Patient History - Infectious Disease Hx of Infectious Diseases: None - Tetanus Immunizations Tetanus Immunization: Unknown - Past Medical History & Family History Past Medical History?: Yes - Past Social History Smoking Status: Current Some Days Smoker - CARDIAC Hx Cardiac Disorders: Yes Hx Hypertension: Yes - PULMONARY Hx Respiratory Disorders: No Other/Comment: light smoker - NEUROLOGICAL Hx Neurological Disorder: Yes Hx Dizziness: Yes Other/Comment: neuropathy - HEENT Hx HEENT Problems: No - RENAL Hx Chronic Kidney Disease: No - ENDOCRINE/METABOLIC Hx Endocrine Disorders: No - HEMATOLOGICAL/ONCOLOGICAL Hx Blood Disorders: No - INTEGUMENTARY Hx Dermatological Problems: No - MUSCULOSKELETAL/RHEUMATOLOGICAL Hx Falls: No - GASTROINTESTINAL Other/Comment: Colitis - GENITOURINARY/GYNECOLOGICAL Hx Genitourinary Disorders: No - PSYCHIATRIC Hx Psychophysiologic Disorder: Yes (ETOH ABUSE-2-3 BOTTLES OF VODKA DAILY, COCAINE USE,SMOKES CIGARETES) Hx Anxiety: Yes Hx Substance Use: Yes (COCAINE USE.LAST USED 2 D AGO SML BAG X 1) - SURGICAL HISTORY Hx Surgeries: Yes Hx Musculoskeletal Surgery: Yes (R foot sx with rods/screws placed) Hx Orthopedic Surgery: Yes - ANESTHESIA Hx Anesthesia: Yes Hx Anesthesia Reactions: No Hx Malignant Hyperthermia: No Meds Home Medications: Home Medication List Medication Instructions Recorded Confirmed Type Moxifloxacin [Avelox] 400 mg PO DAILY #10 tab 04/07/18 Rx Allergies/Adverse Reactions: Allergies Allergy/AdvReac Type Severity Reaction Status Date / Time No Known Allergies Allergy Verified 04/07/18 21:42 - Medications Medications: Current Medications Heparin Sodium (Porcine) (Heparin) 5,000 units SC Q12 ALEXANDRA PRN Reason: Protocol Last Admin: 04/07/18 21:15 Dose: 5,000 units Ceftriaxone Sodium (Rocephin 1 Gram Ivpb) 1 gm in 100 mls @ 100 mls/hr IVPB DAILY ALEXANDRA PRN Reason: Protocol Metronidazole (Flagyl) 500 mg in 100 mls @ 100 mls/hr IVPB Q8 ALEXANDRA PRN Reason: Protocol Last Admin: 04/08/18 05:58 Dose: 100 mls/hr Magnesium 2 gm/50 ml NS (Magnesium Sulfate 2 Gm/50 Ml Ns) 2 gm in 50 mls @ 50 mls/hr IVPB ONCE ONE Stop: 04/08/18 08:10 Potassium Chloride 20 meq/ (Dextrose/Sodium Chloride) 1,010 mls @ 100 mls/hr IV .Q10H6M [facility] Lorazepam (Ativan) 2 mg IVP Q6 PRN; Protocol PRN Reason: Symptoms of alcohol withdrawl Morphine Sulfate (Morphine) 2 mg IVP Q4 PRN PRN Reason: Pain, severe (8-10) Last Admin: 04/07/18 21:15 Dose: 2 mg Pantoprazole Sodium (Protonix Inj) 40 mg IVP DAILY [facility] Physical Exam - Constitutional Appears: Non-toxic, No Acute Distress - Eye Exam Eye Exam: EOMI, PERRL - ENT Exam ENT Exam: Mucous Membranes Moist - Respiratory Exam Respiratory Exam: Clear to Auscultation Bilateral. absent: Rales, Rhonchi, Wheezes - Cardiovascular Exam Cardiovascular Exam: RRR, +S1, +S2 - GI/Abdominal Exam GI & Abdominal Exam: Normal Bowel Sounds, Soft. absent: Distended, Firm, Guarding, Hernia, Organomegaly, Rigid, Tenderness - Extremities Exam Extremities exam: Positive for: normal inspection. Negative for: pedal edema - Neurological Exam Neurological exam: Alert, Oriented x3 - Psychiatric Exam Psychiatric exam: Normal Affect, Normal Mood - Skin Skin Exam: Dry, Warm Results - Vital Signs Recent Vital Signs: Last Vital Signs Temp 99.2 F 04/07/18 21:43 Pulse 67 04/07/18 21:43 Resp 20 04/07/18 21:43 BP 138/93 H 04/07/18 21:43 Pulse Ox 95 04/07/18 20:29 - Labs Result Diagrams: 04/08/18 05:30 04/08/18 05:30 Labs: Laboratory Results - last 24 hr 04/08/18 05:30 WBC 2.5 L* RBC 4.04 Hgb 11.5 L Hct 35.4 L MCV 87.6 MCH 28.5 MCHC 32.5 RDW 14.9 H Plt Count 151 MPV 11.1 H Gran % 31.2 L Lymph % (Auto) 52.0 H Boyd % (Auto) 13.2 H Eos % (Auto) 2.4 Baso % (Auto) 1.2 Gran # 0.78 L Lymph # (Auto) 1.3 Boyd # (Auto) 0.3 Eos # (Auto) 0.1 Baso # (Auto) 0.03 Assessment & Plan - Assessment and Plan (Free Text) Assessment: Patient is a 42yo male with PMHx significant for recurrent episodes of colitis, polysubstance abuse (EtOH, cocaine, marijuana), HTN who presented to the ED with abdominal pain, nausea and vomiting -Acute colitis - unclear etiology (infectious, inflammatory, ischemic) -Polysubstance abuse -HTN Plan: -Strongly encourage cessation of cocaine use in the setting of recently abnormal stress test and recurrent episodes of colitis -Agree with empiric coverage with Ceftriaxone/Flagyl -Liquid diet, advance as tolerated -Outpatient follow up with gastroenterology once cardiac work up completed -EtOH/tobacco cessation education given - Date & Time Date: 04/08/18 Time: 06:30 <Montrell Carolina - Last Filed: 04/08/18 14:48> Meds - Medications Medications: Current Medications Heparin Sodium (Porcine) (Heparin) 5,000 units SC Q12 ALEXANDRA PRN Reason: Protocol Last Admin: 04/08/18 10:35 Dose: 5,000 units Ceftriaxone Sodium (Rocephin 1 Gram Ivpb) 1 gm in 100 mls @ 100 mls/hr IVPB DAILY ALEXANDRA PRN Reason: Protocol Last Admin: 04/08/18 10:36 Dose: 100 mls/hr Metronidazole (Flagyl) 500 mg in 100 mls @ 100 mls/hr IVPB Q8 ALEXANDRA PRN Reason: Protocol Last Admin: 04/08/18 05:58 Dose: 100 mls/hr Potassium Chloride 20 meq/ (Dextrose/Sodium Chloride) 1,010 mls @ 100 mls/hr IV .Q10H6M [facility] Last Admin: 04/08/18 10:47 Dose: 100 mls/hr Lorazepam (Ativan) 2 mg IVP Q6 PRN; Protocol PRN Reason: Symptoms of alcohol withdrawl Morphine Sulfate (Morphine) 2 mg IVP Q4H PRN PRN Reason: Pain, severe (8-10) Pantoprazole Sodium (Protonix Inj) 40 mg IVP DAILY [facility] Last Admin: 04/08/18 10:48 Dose: 40 mg Tramadol HCl (Ultram) 50 mg PO TID PRN PRN Reason: Pain, moderate (4-7) Results - Vital Signs Recent Vital Signs: Last Vital Signs Temp 97.9 F 04/08/18 07:44 Pulse 71 04/08/18 07:44 Resp 19 04/08/18 07:44 BP 138/96 H 04/08/18 07:44 Pulse Ox 97 04/08/18 07:44 - Labs Result Diagrams: 04/08/18 05:30 04/08/18 05:30 Labs: Laboratory Results - last 24 hr 04/08/18 11:31 Urine Opiates Screen Positive H Urine Methadone Screen Negative Ur Barbiturates Screen Positive H Ur Phencyclidine Scrn Negative Ur Amphetamines Screen Negative U Benzodiazepines Scrn Positive H U Oth Cocaine Metabols Positive H U Cannabinoids Screen Negative Attending/Attestation - Attestation I have personally seen and examined this patient.: Yes I have fully participated in the care of the patient.: Yes I have reviewed all pertinent clinical information: Yes Notes (Text): 04/08/18 14:46 42 year old with h/o cocaine abuse, also has abdominal pain, question of colitis , awaiting outpatient colonoscopy. Awaiting outpatiet preop cardiac eval prior to colonoscopy. Recommend avoiding cocaine.
[2018-04-08 07:37] LABS: ALB/GLOB RATIO 1.6 (1.1-1.8); ALBUMIN 4.3 g/dL (3.0-4.8); ALT/SGPT 89 U/L (7-56); AST/SGOT 60 U/L (17-59); BLOOD UREA NITROGEN 10 mg/dL (7-21); CALCIUM 8.7 mg/dL (8.4-10.5); GFR AFRICAN-AMERICAN > 60; GFR NON-AFRICAN AMERICAN > 60
[2018-04-08 07:45] VITALS: BP 138/96; PULSE 71; RESP 19; TEMP 97.9; O2SAT 97
[2018-04-08] MEDS ORDERED: cefTRIAXone 1 gm 1 GM/100 ML BAG IVPB SCH (10:00)
[2018-04-08 12:09] LABS: BARBITURATES, UR POSITIVE (NEGATIVE); BENZODIAZEPINES, UR POSITIVE (NEGATIVE); OPIATES, UR POSITIVE (NEGATIVE); PHENCYCLIDINE, UR NEGATIVE (NEGATIVE)
[2018-04-08] MEDS ORDERED: Morphine 2 mg/ml ISec IVP PRN (13:03)
--- NOTE | 2018-04-08 15:24 | CP.PCM.DIS ---
<Alexis Da Silva - Last Filed: 04/08/18 16:13> Provider - Provider Date of Admission: 04/08/18 08:02 Attending physician: Luisito Silverio MD Primary care physician: Griselda Heard MD Time Spent in preparation of Discharge (in minutes): 50 Hospital Course - Lab Results Lab Results: Most Recent Lab Values WBC 2.5 10^3/ul (4.5-11.0) L* 04/08/18 05:30 RBC 4.04 10^6/uL (3.5-6.1) 04/08/18 05:30 Hgb 11.5 g/dL (14.0-18.0) L 04/08/18 05:30 Hct 35.4 % (42.0-52.0) L 04/08/18 05:30 MCV 87.6 fl (80.0-105.0) 04/08/18 05:30 MCH 28.5 pg (25.0-35.0) 04/08/18 05:30 MCHC 32.5 g/dl (31.0-37.0) 04/08/18 05:30 RDW 14.9 % (11.5-14.5) H 04/08/18 05:30 Plt Count 151 10^3/uL (120.0-450.0) 04/08/18 05:30 MPV 11.1 fl (7.0-11.0) H 04/08/18 05:30 Gran % 31.2 % (50.0-68.0) L 04/08/18 05:30 Lymph % (Auto) 52.0 % (22.0-35.0) H 04/08/18 05:30 [place] % (Auto) 13.2 % (1.0-6.0) H 04/08/18 05:30 Eos % (Auto) 2.4 % (1.5-5.0) 04/08/18 05:30 Baso % (Auto) 1.2 % (0.0-3.0) 04/08/18 05:30 Gran # 0.78 (1.4-6.5) L 04/08/18 05:30 Lymph # (Auto) 1.3 (1.2-3.4) 04/08/18 05:30 [place] # (Auto) 0.3 (0.1-0.6) 04/08/18 05:30 Eos # (Auto) 0.1 (0.0-0.7) 04/08/18 05:30 Baso # (Auto) 0.03 K/mm3 (0.0-2.0) 04/08/18 05:30 Sodium 139 mmol/L (132-148) 04/08/18 05:30 Potassium 3.2 mmol/L (3.6-5.0) L 04/08/18 05:30 Chloride 102 mmol/L (98-107) 04/08/18 05:30 Carbon Dioxide 25 mmol/L (21-33) 04/08/18 05:30 Anion Gap 15 (10-20) 04/08/18 05:30 BUN 10 mg/dL (7-21) 04/08/18 05:30 Creatinine 0.9 mg/dl (0.8-1.5) 04/08/18 05:30 Est GFR ( Amer) > 60 04/08/18 05:30 Est GFR (Non-Af Amer) > 60 04/08/18 05:30 Random Glucose 95 mg/dL (70-110) 04/08/18 05:30 Calcium 8.7 mg/dL (8.4-10.5) 04/08/18 05:30 Phosphorus 3.5 mg/dL (2.5-4.5) 04/07/18 12:52 Magnesium 1.4 mg/dL (1.7-2.2) L 04/07/18 12:52 Total Bilirubin 0.7 mg/dL (0.2-1.3) 04/08/18 05:30 AST 60 U/L (17-59) H D 04/08/18 05:30 ALT 89 U/L (7-56) H 04/08/18 05:30 Alkaline Phosphatase 55 U/L (38-126) 04/08/18 05:30 Total Protein 7.1 g/dL (5.8-8.3) 04/08/18 05:30 Albumin 4.3 g/dL (3.0-4.8) 04/08/18 05:30 Globulin 2.7 gm/dL 04/08/18 05:30 Albumin/Globulin Ratio 1.6 (1.1-1.8) 04/08/18 05:30 Lipase 124 U/L (23-300) 04/07/18 12:52 Urine Opiates Screen Positive (NEGATIVE) H 04/08/18 11:31 Urine Methadone Screen Negative (NEGATIVE) 04/08/18 11:31 Ur Barbiturates Screen Positive (NEGATIVE) H 04/08/18 11:31 Ur Phencyclidine Scrn Negative (NEGATIVE) 04/08/18 11:31 Ur Amphetamines Screen Negative (NEGATIVE) 04/08/18 11:31 U Benzodiazepines Scrn Positive (NEGATIVE) H 04/08/18 11:31 U Oth Cocaine Metabols Positive (NEGATIVE) H 04/08/18 11:31 U Cannabinoids Screen Negative (NEGATIVE) 04/08/18 11:31 Alcohol, Quantitative 45 mg/dL (0-10) H 04/07/18 12:52 - Hospital Course Hospital Course: 42 year old male with a past medical history of colitis and alcohol abuse comes into the hospital today complaining of abdominal pain since the morning of his arrival. Reported four episodes of non-billious, non-bloody emesis in conjunction with the pain. The patient also reports an episode of diarrhea in conjunction with the abdominal pain. The patient denies any alleviating or modifying factors. He denies any chest pain, shortness of breath, fevers, chills, changes in vision, syncopal episodes, headaches, or any other complaints. During hospital course patient electrolytes were replete and pain was under control. Gastroenterology saw the patient and recommended further outpatient workup after medical and cardiology clearance. Patient is tolerating regular diet without nausea or vomiting. States regular bowel movement. Cleared to go home today on antibiotics and multi-vitamins Counselled patient in detail about ETOH cessation. Recommend stay for one more day, however patient states he feels significantly better and would continue to recover at home. Discussed the risk and benefits of staying and leaving. Staying one more day would continue to allow further monitoring of intake and output, and better pain control. Encourage taking antibiotics as written, and symptoms should get better after 1- 2 days. Also encourage taking multi-vitamins. Discharge Exam - Head Exam Head Exam: ATRAUMATIC, NORMAL INSPECTION, NORMOCEPHALIC - Eye Exam Eye Exam: EOMI. absent: Scleral icterus - ENT Exam ENT Exam: Mucous Membranes Moist - Respiratory Exam Respiratory Exam: NORMAL BREATHING PATTERN. absent: Accessory Muscle Use, Chest Wall Tenderness, Decreased Breath Sounds - Cardiovascular Exam Cardiovascular Exam: +S1, +S2. absent: Bradycardia, Tachycardia - GI/Abdominal Exam GI & Abdominal Exam: Soft. absent: Tenderness, Unremarkable - Extremities Exam Extremities exam: normal inspection - Back Exam Back exam: absent: CVA tenderness (L), CVA tenderness (R) - Neurological Exam Neurological exam: Alert, Oriented x3 - Skin Skin Exam: Dry, Intact Discharge Plan - Discharge Medications Prescriptions: Ciprofloxacin HCl [Cipro] 500 mg PO Q12 7 Days tablet Metronidazole [Flagyl] 500 mg PO Q12 7 Days tablet Multivit-Minerals/Folic Acid [Adult Multi Gummies] 200 mcg PO DAILY #20 tab.chew Thiamine [Vitamin B-1] 100 mg PO DAILY #20 tab - Follow Up Plan Condition: FAIR Disposition: HOME/ ROUTINE Instructions: Ulcerative Colitis (DC) Additional Instructions: Take antibiotics as prescribed. Eat slowly and soft foods. 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 If pain worsens go to the ER. Referrals: Griselda Heard MD [Primary Care Provider] - <Luisito Silverio - Last Filed: 04/08/18 17:27> Provider - Provider Date of Admission: 04/07/18 16:33 Attending physician: Luisito Silverio MD Primary care physician: Griselda Heard MD Hospital Course - Lab Results Lab Results: Most Recent Lab Values WBC 2.5 10^3/ul (4.5-11.0) L* 04/08/18 05:30 RBC 4.04 10^6/uL (3.5-6.1) 04/08/18 05:30 Hgb 11.5 g/dL (14.0-18.0) L 04/08/18 05:30 Hct 35.4 % (42.0-52.0) L 04/08/18 05:30 MCV 87.6 fl (80.0-105.0) 04/08/18 05:30 MCH 28.5 pg (25.0-35.0) 04/08/18 05:30 MCHC 32.5 g/dl (31.0-37.0) 04/08/18 05:30 RDW 14.9 % (11.5-14.5) H 04/08/18 05:30 Plt Count 151 10^3/uL (120.0-450.0) 04/08/18 05:30 MPV 11.1 fl (7.0-11.0) H 04/08/18 05:30 Gran % 31.2 % (50.0-68.0) L 04/08/18 05:30 Lymph % (Auto) 52.0 % (22.0-35.0) H 04/08/18 05:30 [place] % (Auto) 13.2 % (1.0-6.0) H 04/08/18 05:30 Eos % (Auto) 2.4 % (1.5-5.0) 04/08/18 05:30 Baso % (Auto) 1.2 % (0.0-3.0) 04/08/18 05:30 Gran # 0.78 (1.4-6.5) L 04/08/18 05:30 Lymph # (Auto) 1.3 (1.2-3.4) 04/08/18 05:30 [place] # (Auto) 0.3 (0.1-0.6) 04/08/18 05:30 Eos # (Auto) 0.1 (0.0-0.7) 04/08/18 05:30 Baso # (Auto) 0.03 K/mm3 (0.0-2.0) 04/08/18 05:30 Sodium 139 mmol/L (132-148) 04/08/18 05:30 Potassium 3.2 mmol/L (3.6-5.0) L 04/08/18 05:30 Chloride 102 mmol/L (98-107) 04/08/18 05:30 Carbon Dioxide 25 mmol/L (21-33) 04/08/18 05:30 Anion Gap 15 (10-20) 04/08/18 05:30 BUN 10 mg/dL (7-21) 04/08/18 05:30 Creatinine 0.9 mg/dl (0.8-1.5) 04/08/18 05:30 Est GFR ( Amer) > 60 04/08/18 05:30 Est GFR (Non-Af Amer) > 60 04/08/18 05:30 Random Glucose 95 mg/dL (70-110) 04/08/18 05:30 Calcium 8.7 mg/dL (8.4-10.5) 04/08/18 05:30 Phosphorus 3.5 mg/dL (2.5-4.5) 04/07/18 12:52 Magnesium 1.4 mg/dL (1.7-2.2) L 04/07/18 12:52 Total Bilirubin 0.7 mg/dL (0.2-1.3) 04/08/18 05:30 AST 60 U/L (17-59) H D 04/08/18 05:30 ALT 89 U/L (7-56) H 04/08/18 05:30 Alkaline Phosphatase 55 U/L (38-126) 04/08/18 05:30 Total Protein 7.1 g/dL (5.8-8.3) 04/08/18 05:30 Albumin 4.3 g/dL (3.0-4.8) 04/08/18 05:30 Globulin 2.7 gm/dL 04/08/18 05:30 Albumin/Globulin Ratio 1.6 (1.1-1.8) 04/08/18 05:30 Lipase 124 U/L (23-300) 04/07/18 12:52 Urine Opiates Screen Positive (NEGATIVE) H 04/08/18 11:31 Urine Methadone Screen Negative (NEGATIVE) 04/08/18 11:31 Ur Barbiturates Screen Positive (NEGATIVE) H 04/08/18 11:31 Ur Phencyclidine Scrn Negative (NEGATIVE) 04/08/18 11:31 Ur Amphetamines Screen Negative (NEGATIVE) 04/08/18 11:31 U Benzodiazepines Scrn Positive (NEGATIVE) H 04/08/18 11:31 U Oth Cocaine Metabols Positive (NEGATIVE) H 04/08/18 11:31 U Cannabinoids Screen Negative (NEGATIVE) 04/08/18 11:31 Alcohol, Quantitative 45 mg/dL (0-10) H 04/07/18 12:52 Attending/Attestation - Attestation I have personally seen and examined this patient.: Yes I have fully participated in the care of the patient.: Yes I have reviewed all pertinent clinical information, including history, physical exam and plan: Yes Notes (Text): 04/08/18 17:24 Medical record note made by the resident after discussion with my direction and input after the patient was personally seen and examined by me. I have reviewed the chart and agree that the record accurately reflects by personal performance of the history, physical exam, data review, and medical decision-making, in the course for the patient. I have also personally directed the plan of care. 42 year old male with a past medical history of colitis ,alcohol and drug abuse was admitted with abdominal pain Abdomen/pelvis CT showed a mild mural thickening in transverse descending colon consistent with colitis.Patient was treated with with IV fluid and antibiotics Patient abdominal pain is improved.He is tolerating soft diet.Patient does not want to stay in the hospital.He is feeling at base line There is no sign of alcohol withdrawal at the time of discharge.LFT are coming down Issue of ongoing alcohol and drug abuse was discussed in detail. Patient will need out patient Colonoscopy, was discussed in detail Management plan was discussed in detail with patient. Education was provided. 04/08/18 17:27
== END 2018-04-08 16:59 | disposition home or self-care (01) ==
LOC: ED 11:19 → ERH 16:33 → 3RNO 20:45 → OBSVTOIN 04-08 08:02 → INTOOBSV 04-08 08:02
PROVIDERS: ADMIT Internal Medicine; ATTEND Internal Medicine
DX: K52.9 Noninfective gastroenteritis and colitis, unspecified (principal); I10 Essential (primary) hypertension; G62.9 Polyneuropathy, unspecified; F41.9 Anxiety disorder, unspecified; F17.210 Nicotine dependence, cigarettes, uncomplicated; F14.10 Cocaine abuse, uncomplicated; F12.10 Cannabis abuse, uncomplicated; F10.10 Alcohol abuse, uncomplicated; Y90.2 Blood alcohol level of 40-59 mg/100 ml
CPT/HCPCS: 36415; 74177; 80053; 80320; 80324; 80345; 80346; 80349; 80353; 80358; 80361; 83690; 83735; 83992; 84100; 85025; 87040; 93005; 96372; 96374; 96375; 96376; 99284; C9113; G0378; J0696; J0744; J1644; J1885; J2270; J3411; J3475; J3480; J7030; J7042; Q9967

== ENCOUNTER 2018-04-13 11:11 | Emergency (ER) | payer MEDICAID ==
[2018-04-13 11:11] VITALS: BMI 21.9
[2018-04-13] MEDS ORDERED: Sodium Chloride 0.9% 1,000 ML IV STA ×2 (11:37→12:14)
--- NOTE | 2018-04-13 11:41 | ED PDOC ---
Arrival/HPI - General Chief Complaint: Abdominal Pain Time Seen by Provider: 04/13/18 11:12 Historian: Patient - History of Present Illness Narrative History of Present Illness (Text): 04/13/18 11:50 42 year old male, whose PMH includes hypertension, and ETOH abuse, who presents to the emergency department complaining of similar symptoms from PMH of colitis since 1 day. Patient reports doing excessive drinking one day ago, causing nausea, vomiting, diarrhea. The episodes of vomiting were non-bilious, non- bloody and were 2-3 episodes each. Patient denies chest pain, shortness of breath, fever, dysuria, or other complaints. Time/Duration: 24 hours Symptom Onset: Sudden Symptom Course: Unchanged Past Medical History - Provider Review Nursing Documentation Reviewed: Yes - Past History Past History: No Previous - Infectious Disease Hx of Infectious Diseases: None - Tetanus Immunization Tetanus Immunization: Unknown - Past Medical History Past Medical History: No Previous - Cardiac Hx Cardiac Disorders: Yes Hx Hypertension: Yes - Pulmonary Hx Respiratory Disorders: No Other/Comment: light smoker - Neurological Hx Neurological Disorder: Yes Hx Dizziness: Yes Other/Comment: neuropathy - HEENT Hx HEENT Disorder: No - Renal Hx Renal Disorder: No - Endocrine/Metabolic Hx Endocrine Disorders: No - Hematological/Oncological Hx Blood Disorders: No - Integumentary Hx Dermatological Disorder: No - Musculoskeletal/Rheumatological Hx Falls: No - Gastrointestinal Other/Comment: Colitis - Genitourinary/Gynecological Hx Genitourinary Disorders: No - Psychiatric Hx Psychophysiologic Disorder: Yes (ETOH ABUSE-2-3 BOTTLES OF VODKA DAILY, COCAINE USE,SMOKES CIGARETES) Hx Anxiety: Yes Hx Substance Use: Yes (COCAINE USE.LAST USED 2 D AGO SML BAG X 1) - Past Surgical History Past Surgical History: Non-Contributing - Surgical History Hx Musculoskeletal Surgery: Yes (R foot sx with rods/screws placed) Hx Orthopedic Surgery: Yes - Anesthesia Hx Anesthesia: Yes Hx Anesthesia Reactions: No Hx Malignant Hyperthermia: No - Suicidal Assessment Feels Threatened In Home Enviroment: No Family/Social History - Physician Review Nursing Documentation Reviewed: Yes Family/Social History: Unknown Family HX Smoking Status: Current Some Days Smoker Hx Alcohol Use: Yes (ETOH ABUSE.DRINKS VODKA DAILY. LAST DRANK 2-3 BTLS OF VODKA YESTERDAY.) Hx Substance Use: Yes (COCAINE USE.LAST USED 2 D AGO SML BAG X 1) Substance used: marijuana & cocaine Hx Substance Use Treatment: No Allergies/Home Meds Allergies/Adverse Reactions: Allergies No Known Allergies Allergy (Verified 04/07/18 21:42) Review of Systems - Review of Systems Constitutional: absent: Fevers Respiratory: absent: SOB Cardiovascular: absent: Chest Pain Gastrointestinal: Abdominal Pain, Diarrhea, Nausea, Vomiting. absent: Hematochezia Genitourinary Male: absent: Dysuria Musculoskeletal: absent: Back Pain Skin: absent: Rash Neurological: absent: Headache Endocrine: absent: Diaphoresis Physical Exam Vital Signs Reviewed: Yes Vital Signs Temp Pulse Resp BP Pulse Ox 04/13/18 15:53 98.5 F 86 18 155/95 H 97 04/13/18 15:48 84 18 159/95 H 96 04/13/18 13:16 98.6 F 93 H 18 152/98 H 97 04/13/18 11:24 98 F 116 H 18 129/84 99 Temperature: Afebrile Blood Pressure: Normal Pulse: Tachycardic Respiratory Rate: Normal Appearance: Positive for: Well-Appearing, Non-Toxic, Comfortable Pain Distress: None Mental Status: Positive for: Alert and Oriented X 3 - Systems Exam Head: Present: Atraumatic, Normocephalic Pupils: Present: PERRL Extroacular Muscles: Present: EOMI Conjunctiva: Present: Normal Respiratory/Chest: Present: Clear to Auscultation, Good Air Exchange. No: Respiratory Distress, Accessory Muscle Use, Wheezes, Rales, Rhonchi Cardiovascular: Present: Regular Rate and Rhythm, Normal S1, S2. No: Murmurs Abdomen: Present: Tenderness (upper abdominal tenderness and mild tenderness on the lower abdomen ), Normal Bowel Sounds. No: Distention, Peritoneal Signs Lower Extremity: Present: Normal Inspection, NORMAL PULSES, Normal ROM, Neurovascularly Intact, Capillary Refill < 2 s. No: Edema, Cyanosis, Tenderness , Swelling, Erythema, Deformity Neurological: Present: GCS=15, CN II-XII Intact, Speech Normal Skin: Present: Warm, Dry, Normal Color. No: Rashes Psychiatric: Present: Alert, Oriented x 3, Normal Insight, Normal Concentration Medical Decision Making ED Course and Treatment: 04/13/18 Impression: 42 year old male with upper abdominal tenderness and mild tenderness on the lower abdomen complaining of nausea, vomiting, diarrhea, symptoms are consistent with colitis PMH s/p excessive ETOH. Plan: -- Labs -- Ativan, Dextrose, Folic Acid, Pepcid, Vitamin B, Zofran, and Sodium Chloride -- Reassess and disposition Progress Notes: 04/13/18 17:24 serial bowel exams wnl, passed po challenge, nausea finally abated after 2 round s of emesis. Feels stronger after magnesium repletion . - Lab Interpretations Lab Results: 04/13/18 11:32 04/13/18 11:32 Lab Results 04/13/18 15:29: pO2 139 H, VBG pH 7.39, VBG pCO2 40.0, VBG HCO3 24.2, VBG Total CO2 25.4, VBG O2 Sat (Calc) 100.0 H, VBG Base Excess -0.7 L, VBG Potassium 3.7, Sodium 141.0, Chloride 107.0, Glucose 89, Lactate 1.1, FiO2 21.0, Venous Blood Potassium 3.7 04/13/18 11:32: Sodium 145, Chloride 105, Potassium 3.8, Carbon Dioxide 19 L, Anion Gap 25 H, BUN 13, Creatinine 0.9, Est GFR ( Amer) > 60, Est GFR ( Non-Af Amer) > 60, Random Glucose 83, Calcium 10.0, Magnesium 1.6 L, Total Bilirubin 0.3, AST 85 H D, ALT 115 H, Alkaline Phosphatase 75, Total Protein 8.1 , Albumin 5.2 H, Globulin 2.9, Albumin/Globulin Ratio 1.8, Lipase 105 04/13/18 11:32: pO2 196 H, VBG pH 7.43, VBG pCO2 28.0 L, VBG HCO3 18.6 L, VBG Total CO2 19.5 L, VBG O2 Sat (Calc) 100.4 H, VBG Base Excess -4.4 L, VBG Potassium 3.5 L, Sodium 141.0, Chloride 107.0, Glucose 81, Lactate 5.9 H*, FiO2 21.0, Venous Blood Potassium 3.5 L 04/13/18 11:32: PT 11.4, INR 0.99 04/13/18 11:32: WBC 3.1 L D, RBC 4.19, Hgb 12.3 L, Hct 36.8 L, MCV 87.8, MCH 29.4, MCHC 33.4, RDW 15.1 H, Plt Count 193, MPV 10.8, Gran % 51.8, Lymph % (Auto ) 39.2 H, [place] % (Auto) 8.4 H, Eos % (Auto) 0.0 L, Baso % (Auto) 0.6, Gran # 1.60, Lymph # (Auto) 1.2, [place] # (Auto) 0.3, Eos # (Auto) 0.0, Baso # (Auto) 0.02 I have reviewed the lab results: Yes - Medication Orders Current Medication Orders: Dextrose/Sodium Chloride (Dextrose 5%/0.9% Ns 1000 Ml) 1,000 mls @ 300 mls/hr IV .Q3H20M [id number] Last Admin: 04/13/18 14:46 Dose: 300 mls/hr eMAR Start Stop Document 04/13/18 14:46 LA (Rec: 04/13/18 14:46 MIKE [id number]) Intravenous Solution Start Date 04/13/18 Start Time 14:46 Discontinued Medications Chlordiazepoxide (Librium) 50 mg PO STAT STA PRN Reason: Protocol Stop: 04/13/18 14:47 Last Admin: 04/13/18 15:15 Dose: 50 mg Famotidine (Pepcid) 20 mg IVP STAT STA Stop: 04/13/18 11:38 Last Admin: 04/13/18 12:02 Dose: 20 mg IVP Administration Document 04/13/18 12:02 LA (Rec: 04/13/18 12:02 LA [id number]) Charges for Administration # of IVP Administrations 1 Folic Acid (Folic Acid) 1 mg IVP ONCE ONE Stop: 04/13/18 14:01 Last Admin: 04/13/18 14:18 Dose: 1 mg IVP Administration Document 04/13/18 14:18 LA (Rec: 04/13/18 14:19 LA [id number]) Charges for Administration # of IVP Administrations 1 Sodium Chloride (Sodium Chloride 0.9%) 1,000 mls @ 1,000 mls/hr IV .Q1H STA Stop: 04/13/18 12:36 Last Admin: 04/13/18 12:03 Dose: 1,000 mls/hr eMAR Start Stop Document 04/13/18 12:03 LA (Rec: 04/13/18 12:03 LA [id number]) Intravenous Solution Start Date 04/13/18 Start Time 12:03 End Date 04/13/18 End time 13:03 Total Infusion Time 60 Sodium Chloride (Sodium Chloride 0.9%) 1,000 mls @ 999 mls/hr IV .Q1H1M STA Stop: 04/13/18 13:14 Last Admin: 04/13/18 12:24 Dose: 999 mls/hr eMAR Start Stop Document 04/13/18 12:24 LA (Rec: 04/13/18 12:25 LA [id number]) Intravenous Solution Start Date 04/13/18 Start Time 12:25 End Date 04/13/18 End time 13:26 Total Infusion Time 61 Magnesium Sulfate (Magnesium Sulfate 2 Gm/50 Ml Water) 2 gm in 50 mls @ 50 mls/ hr IVPB ONCE ONE Stop: 04/13/18 17:18 Last Admin: 04/13/18 16:26 Dose: 50 mls/hr eMAR Start Stop Document 04/13/18 16:26 LA (Rec: 04/13/18 16:27 LA [id number]) Intravenous Solution Start Date 04/13/18 Start Time 16:27 End Date 04/13/18 End time 17:27 Total Infusion Time 60 Lorazepam (Ativan) 0.5 mg IVP ONCE ONE PRN Reason: Protocol Stop: 04/13/18 11:47 Last Admin: 04/13/18 12:00 Dose: 0.5 mg IVP Administration Document 04/13/18 12:00 LA (Rec: 04/13/18 12:02 LA [id number]) Charges for Administration # of IVP Administrations 1 Ondansetron HCl (Zofran Inj) 4 mg IVP STAT STA Stop: 04/13/18 11:38 Last Admin: 04/13/18 12:02 Dose: 4 mg IVP Administration Document 04/13/18 12:02 LA (Rec: 04/13/18 12:02 LA [id number]) Charges for Administration # of IVP Administrations 1 Thiamine HCl (Vitamin B1 Inj) 100 mg IV STAT STA Stop: 04/13/18 11:46 Last Admin: 04/13/18 12:00 Dose: 100 mg eMAR Start Stop Document 04/13/18 12:00 LA (Rec: 04/13/18 12:00 LA [id number]) Intravenous Solution Start Date 04/13/18 Start Time 12:00 - Scribe Statement The provider has reviewed the documentation as recorded by the Scribe Lilly More Provider Scribe Attestation: All medical record entries made by the Scribe were at my direction and personally dictated by me. I have reviewed the chart and agree that the record accurately reflects my personal performance of the history, physical exam, medical decision making, and the department course for this patient. I have also personally directed, reviewed, and agree with the discharge instructions and disposition. Disposition/Present on Arrival - Present on Arrival Any Indicators Present on Arrival: No History of DVT/PE: No History of Uncontrolled Diabetes: No Urinary Catheter: No History of Decub. Ulcer: No History Surgical Site Infection Following: None - Disposition Have Diagnosis and Disposition been Completed?: Yes Diagnosis: Alcoholic gastritis without bleeding, Gastroenteritis Disposition: HOME/ ROUTINE Disposition Time: 17:20 Patient Plan: Discharge Condition: IMPROVED Discharge Instructions (ExitCare): Gastroenteritis (ED) Print Language: TURKISH Additional Instructions: Please only slowly advance your diet commencing with bland simple soft foods such as bananas/crackers/toast /cpapayas/apple sauce avoiding all dairy and meats for 1-2 days . Use the antacids and antinausea medicine as needed.Return for worsieninig symptoms . Prescriptions: Famotidine [Pepcid] 20 mg PO BID #10 tab Metoclopramide [Reglan] 10 mg PO Q8 PRN #9 tab PRN Reason: Nausea/Vomiting Forms: [facility] ([employer])
[2018-04-13 11:42] VITALS: RESP 18
[2018-04-13] MEDS ORDERED: Thiamine 100 mg/ml Inj IV STA (11:45)
[2018-04-13] MEDS ORDERED: Dextrose 5%/0.9% NS 1,000 ML IV SCH (12:00)
[2018-04-13 12:04] LABS: VENOUS BLOOD GAS BASE EXCESS -4.4 mmol/L (0.0-2.0); VENOUS BLOOD GAS PO2 196 mm/Hg (30-55); VENOUS BLOOD PH 7.43 (7.32-7.43)
[2018-04-13 12:14] LABS: BASO # 0.02 K/mm3 (0.0-2.0); BASO % 0.6 % (0.0-3.0); GRAN # 1.6 (1.4-6.5); GRAN % 51.8 % (50.0-68.0); HEMOGLOBIN 12.3 g/dL (14.0-18.0); LYMPH # 1.2 (1.2-3.4); LYMPH % 39.2 % (22.0-35.0); MEAN CELL VOLUME 87.8 fl (80.0-105.0); MEAN CORPUSCULAR HEMOGLOBIN 29.4 pg (25.0-35.0); MEAN CORPUSCULAR HGB CONC 33.4 g/dl (31.0-37.0); MEAN PLATELET VOLUME 10.8 fl (7.0-11.0); MONO # 0.3 (0.1-0.6); MONO % 8.4 % (1.0-6.0); RBC 4.19 10^6/uL (3.5-6.1); RED CELL DISTRIBUTION WIDTH 15.1 % (11.5-14.5); WHITE BLOOD COUNT 3.1 10^3/ul (4.5-11.0)
[2018-04-13 12:16] LABS: ALB/GLOB RATIO 1.8 (1.1-1.8); ALBUMIN 5.2 g/dL (3.0-4.8); ALT/SGPT 115 U/L (7-56); AST/SGOT 85 U/L (17-59); BLOOD UREA NITROGEN 13 mg/dL (7-21); GFR AFRICAN-AMERICAN > 60; GFR NON-AFRICAN AMERICAN > 60; LIPASE 105 U/L (23-300)
[2018-04-13 12:17] LABS: INR 0.99 (0.93-1.08); PROTHROMBIN TIME 11.4 SECONDS (9.4-12.5)
[2018-04-13 15:46] LABS: VENOUS BLOOD GAS BASE EXCESS -0.7 mmol/L (0.0-2.0); VENOUS BLOOD GAS PO2 139 mm/Hg (30-55); VENOUS BLOOD PH 7.39 (7.32-7.43)
[2018-04-13] MEDS ORDERED: Magnesium Sulfate 2 gm/50 ml 2 GM/50 ML BAG IVPB ONE (16:19)
[2018-04-13 18:08] VITALS: BP 150/90; PULSE 81; TEMP 98.5; O2SAT 97
== END 2018-04-13 18:06 | disposition home or self-care (01) ==
LOC: ED 11:11
DX: K29.20 Alcoholic gastritis without bleeding (principal)
CPT/HCPCS: 80053; 82803; 83690; 83735; 85025; 85610; 96361; 96365; 96375; 99285; J2060; J2405; J3411; J7030; J7042

== ENCOUNTER 2018-04-20 09:34 | Observation (INO) | payer MEDICAID ==
[2018-04-20] MEDS ORDERED: Sodium Chloride 0.9% 1,000 ML IV STA (10:29)
[2018-04-20 10:37] LABS: BASO # 0.02 K/mm3 (0.0-2.0); BASO % 0.7 % (0.0-3.0); EOS % 0.3 % (1.5-5.0); GRAN # 1.53 (1.4-6.5); GRAN % 49.8 % (50.0-68.0); HEMOGLOBIN 12.4 g/dL (14.0-18.0); LYMPH # 1.3 (1.2-3.4); MEAN CELL VOLUME 86.3 fl (80.0-105.0); MEAN CORPUSCULAR HEMOGLOBIN 28.7 pg (25.0-35.0); MEAN CORPUSCULAR HGB CONC 33.2 g/dl (31.0-37.0); MEAN PLATELET VOLUME 10.8 fl (7.0-11.0); MONO # 0.2 (0.1-0.6); MONO % 7.2 % (1.0-6.0); RBC 4.32 10^6/uL (3.5-6.1); RED CELL DISTRIBUTION WIDTH 14.6 % (11.5-14.5); WHITE BLOOD COUNT 3.1 10^3/ul (4.5-11.0)
[2018-04-20 10:39] LABS: URINE BILIRUBIN NEGATIVE (NEGATIVE); URINE BLOOD NEGATIVE (NEGATIVE); URINE GLUCOSE (UA) NEGATIVE (NEGATIVE); URINE LEUKOCYTE ESTERASE NEGATIVE Leu/uL (NEGATIVE); URINE PROTEIN TRACE mg/dL (<30 mg/dL); URINE UROBILINOGEN 0.2 E.U./dL (<1 E.U./dL)
[2018-04-20 10:47] LABS: ALB/GLOB RATIO 1.7 (1.1-1.8); ALT/SGPT 62 U/L (7-56); AMYLASE 77 U/L (35-125); AST/SGOT 63 U/L (17-59); BLOOD UREA NITROGEN 14 mg/dL (7-21); CALCIUM 9.3 mg/dL (8.4-10.5); GFR AFRICAN-AMERICAN > 60; GFR NON-AFRICAN AMERICAN > 60; LIPASE 78 U/L (23-300)
[2018-04-20 10:56] LABS: TROPONIN I < 0.01 ng/mL
[2018-04-20 11:00] LABS: CK-MB 2.8 ng/mL (0.0-3.6)
[2018-04-20 11:04] LABS: URINE APPEARANCE CLEAR (CLEAR); URINE COLOR YELLOW (YELLOW)
[2018-04-20 11:05] LABS: PARTIAL THROMBOPLASTIN TIME 25.3 Seconds (25.1-36.5); PROTHROMBIN TIME 11.5 SECONDS (9.4-12.5)
[2018-04-20 11:32] LABS: URINE BACTERIA SMALL (NEG); URINE EPITHELIAL CELLS 0 - 2 /hpf (0-5); URINE RBC 0 - 2 /hpf (0-2); URINE WBC 0 - 2 /hpf (0-6)
--- NOTE | 2018-04-20 13:12 | ED PDOC ---
Arrival/HPI - General Chief Complaint: Abdominal Pain Time Seen by Provider: 04/20/18 10:25 Historian: Patient - History of Present Illness Narrative History of Present Illness (Text): 04/20/18 13:06 Patient is a 43 yo male, past medical history of alcohol abuse, past medical history of gastritis, past medical history of anxiety, states that he felt anxious this morning and began experiencing nausea and palpitations he feels from anxiety. He reports that it was his birthday yesterday and he has been drinking. Patient also states he was drinking because "a friend of [place] was Saturday. He denies any headache or chest pain currently. He denies any bloody urine or stool. He states pain is similar to past episodes of anxiety. 04/20/18 13:09 Past Medical History - Provider Review Nursing Documentation Reviewed: Yes - Past History Past History: No Previous - Infectious Disease Hx of Infectious Diseases: None - Tetanus Immunization Tetanus Immunization: Unknown - Past Medical History Past Medical History: No Previous - Cardiac Hx Cardiac Disorders: Yes Hx Hypertension: Yes - Pulmonary Hx Respiratory Disorders: No Other/Comment: light smoker - Neurological Hx Neurological Disorder: Yes Hx Dizziness: Yes Other/Comment: neuropathy - HEENT Hx HEENT Disorder: No - Renal Hx Renal Disorder: No - Endocrine/Metabolic Hx Endocrine Disorders: No - Hematological/Oncological Hx Blood Disorders: No - Integumentary Hx Dermatological Disorder: No - Musculoskeletal/Rheumatological Hx Falls: No - Gastrointestinal Other/Comment: Colitis - Genitourinary/Gynecological Hx Genitourinary Disorders: No - Psychiatric Hx Psychophysiologic Disorder: Yes (ETOH ABUSE-2-3 BOTTLES OF VODKA DAILY, COCAINE USE,SMOKES CIGARETES) Hx Anxiety: Yes Hx Substance Use: Yes (COCAINE USE.LAST USED 2 D AGO SML BAG X 1) - Past Surgical History Past Surgical History: Non-Contributing - Surgical History Hx Musculoskeletal Surgery: Yes (R foot sx with rods/screws placed) Hx Orthopedic Surgery: Yes - Anesthesia Hx Anesthesia: Yes Hx Anesthesia Reactions: No Hx Malignant Hyperthermia: No - Suicidal Assessment Feels Threatened In Home Enviroment: No Family/Social History - Physician Review Nursing Documentation Reviewed: Yes Family/Social History: Unknown Family HX Smoking Status: Current Some Days Smoker Hx Alcohol Use: Yes (ETOH ABUSE.DRINKS VODKA DAILY. LAST DRANK 2-3 BTLS OF VODKA YESTERDAY.) Frequency of alcohol use: Daily Hx Substance Use: Yes (COCAINE USE.LAST USED 2 D AGO SML BAG X 1) Substance used: marijuana & cocaine Hx Substance Use Treatment: No Allergies/Home Meds Allergies/Adverse Reactions: Allergies No Known Allergies Allergy (Verified 04/20/18 09:38) Review of Systems - Review of Systems Constitutional: Fatigue. absent: Fevers Eyes: absent: Vision Changes ENT: absent: Hearing Changes Respiratory: SOB. absent: Cough Cardiovascular: Chest Pain. absent: Edema, Calf Pain, RUBI Gastrointestinal: Abdominal Pain, Nausea, Vomiting, Appetite Changes. absent: Hematochezia, Hematemesis Genitourinary Male: absent: Dysuria, Frequency Musculoskeletal: absent: Back Pain Skin: absent: Rash Neurological: absent: Headache, Dizziness, Focal Weakness Endocrine: absent: Polyuria, Polydipsia Hemo/Lymphatic: absent: Easy Bleeding Psychiatric: absent: Depression Physical Exam - Physical Exam Narrative Physical Exam (Text): 04/20/18 10:30 Head: Atraumatic. Normocephalic. Eyes: PERRL. EOMI. Conjunctivae are not pale. Sclera or anicteric. ENT: Mucous membranes are dry. No blood. No erythema or edema. Neck: Supple. Full ROM. No JVD. No lymphadenopathy. No meningeal signs. Cardiovascular: Regular rate. Regular rhythm. No murmurs, rubs, or gallops. Distal pulses are 2+ and symmetric. Pulmonary/Chest: No evidence of respiratory distress. Clear to auscultation bilaterally. No wheezing, rales or rhonchi. Abdominal: Soft and non-distended. Mild epigastric pain. No rebound or guarding. No pulsatile masses. Rectal: no gross bleeding, no melena Back: No CVA tenderness. No midline tenderness. Extremities: No edema. No cyanosis. No clubbing. Full range of motion in all extremities. No calf tenderness. Skin: Skin is warm and dry. No petechiae. No purpura. No diaphoresis. Neurological: Alert, awake, and oriented to person, place, time, and situation. Normal speech. No facial droop. Minor tremor. Not hyperreflexive. No focal motor sensory deficits. No facial droop or slurring. Psychiatric: Good eye contact. Appears anxious. Denies suicidal or homicidal ideation. 04/20/18 14:48 Vital Signs Reviewed: Yes Vital Signs Temp Pulse Resp BP Pulse Ox 04/20/18 20:17 78 16 130/88 04/20/18 20:07 78 16 130/88 96 04/20/18 18:00 77 16 129/87 97 04/20/18 15:02 77 16 142/94 H 97 04/20/18 12:43 78 16 123/77 98 04/20/18 09:37 127/81 04/20/18 09:36 98.2 F 87 18 99 Temperature: Afebrile Blood Pressure: Normal Pulse: Regular Respiratory Rate: Tachypneic Appearance: Positive for: Uncomfortable Pain Distress: Moderate Mental Status: Positive for: Alert and Oriented X 3 Medical Decision Making ED Course and Treatment: 04/20/18 14:48 Patient on initial examination reports "i got anxious" and then developed nausea and abdominal pain. He admits to drinking alcohol. He is alert and oriented. Denies depression on re-exam. Denies suicidal ideation. He has epigastric pain on initial exam, although with re-exam his pain has resolved and he denies any tremors or chest pain or shortness of breath. EKG with NO acute st elevations. I feel initial symptoms exacerbated by anxiety initially. He has been monitored for several hours, states no pain or discomfort. He is requesting something to eat. He has eaten a meal with no pain or vomiting. Risks of alcohol abuse reviewed with patent. He has normal speech, no tremors, no tachycardia on re-exam. Will discharge with instructions to continue current medication, abstain from excessive alcohol use, follow-up with primary care doctor. 04/20/18 14:53 Re-exam, prior to discharge, patient complains of return of nausea. Zofran ordered, will observe. 04/20/18 18:20 Chest X-ray: Creator : Heath Rodriguez MD COMPARISON: 03/09/2018 FINDINGS: LUNGS: No active pulmonary disease. PLEURA: No significant pleural effusion identified, no pneumothorax apparent. CARDIOVASCULAR: Normal. OSSEOUS STRUCTURES: No significant abnormalities. VISUALIZED UPPER ABDOMEN: Normal. OTHER FINDINGS: None. IMPRESSION: No active disease. 04/20/18 18:53 Patient with persistent nausea, now tremulous. No peritoneal signs. Abdomen nondistended, exam with mild epigastric pain. Pain described as similar to past episodes. At this time will continue serial exams, as have reviewed prior ct abdomen/pelvis and pain described as similar. Suspect possible mild etoh withdrawal with gastritis, as well as component of anxiety. Case d/w Dr. Melendez accepts admission to his service. - Lab Interpretations Lab Results: 04/20/18 10:20 04/20/18 10:20 Lab Results 04/20/18 10:20: Alcohol, Quantitative 136 H 04/20/18 10:20: Sodium 145, Potassium 3.7, Chloride 103, Carbon Dioxide 23, Anion Gap 22 H, BUN 14, Creatinine 0.9, Est GFR ( Amer) > 60, Est GFR ( Non-Af Amer) > 60, Random Glucose 78, Calcium 9.3, Magnesium 1.8, Total Bilirubin 0.3, AST 63 H D, ALT 62 H, Alkaline Phosphatase 67, Lactate Dehydrogenase 505, Total Creatine Kinase 371 H, CK-MB (CK-2) 2.8, CK-MB (CK-2) % Cancelled, Troponin I < 0.01 D, Total Protein 7.9, Albumin 5.0 H, Globulin 3.0, Albumin/Globulin Ratio 1.7, Amylase 77, Lipase 78 04/20/18 10:20: Urine Color Yellow, Urine Appearance Clear, Urine pH 6.0, Ur Specific [place] >= 1.030, Urine Protein Trace H, Urine Glucose (UA) Negative, Urine Ketones Negative, Urine Blood Negative, Urine Nitrate Negative, Urine Bilirubin Negative, Urine Urobilinogen 0.2, Ur Leukocyte Esterase Negative, Urine RBC 0 - 2, Urine WBC 0 - 2, Ur Epithelial Cells 0 - 2, Urine Bacteria Small 04/20/18 10:20: PT 11.5, INR 1.00, APTT 25.3 04/20/18 10:20: WBC 3.1 L, RBC 4.32, Hgb 12.4 L, Hct 37.3 L, MCV 86.3, MCH 28.7 , MCHC 33.2, RDW 14.6 H, Plt Count 227, MPV 10.8, Gran % 49.8 L, Lymph % (Auto) 42.0 H, Collin % (Auto) 7.2 H, Eos % (Auto) 0.3 L, Baso % (Auto) 0.7, Gran # 1.53 , Lymph # (Auto) 1.3, Collin # (Auto) 0.2, Eos # (Auto) 0.0, Baso # (Auto) 0.02 - RAD Interpretation Narrative RAD Interpretations (Text): 04/20/18 14:47 EKG at 1031, nomal sinus rhythm rate of 72 with left ventricular hypertrophy, possible left atrial enlargement Radiology Orders: 04/20/18 10:28 CHEST PORTABLE [RAD] Stat Meteorological Technician: Radiologist - EKG Interpretation Interpreted by ED Physician: Yes Type: 12 lead EKG - Medication Orders Current Medication Orders: Sodium Chloride (Sodium Chloride 0.9%) 1,000 mls @ 150 mls/hr IV .Q6H40M ALEXANDRA Last Admin: 04/21/18 00:04 Dose: 150 mls/hr eMAR Start Stop Document 04/21/18 00:04 RM (Rec: 04/21/18 00:05 [email or web address]) Intravenous Solution Start Date 04/21/18 Start Time 00:04 End Date 04/21/18 End time 06:44 Total Infusion Time 400 Lorazepam (Ativan) 2 mg IVP Q4H PRN; Protocol PRN Reason: Symptoms of alcohol withdrawl Multivitamins (Thera Tab) 1 tab PO DAILY ALEXANDRA Ondansetron HCl (Zofran Inj) 4 mg IVP Q4H PRN PRN Reason: Nausea/Vomiting Pantoprazole Sodium (Protonix Ec Tab) 20 mg PO DAILY ALEXANDRA Last Admin: 04/21/18 05:26 Dose: 20 mg Thiamine HCl (Vitamin B1 Tab) 100 mg PO DAILY ALEXANDRA Discontinued Medications Chlordiazepoxide (Librium) 50 mg PO STAT STA PRN Reason: Protocol Stop: 04/20/18 13:24 Last Admin: 04/20/18 13:35 Dose: 50 mg Chlordiazepoxide (Librium) 50 mg PO STAT STA PRN Reason: Protocol Stop: 04/20/18 18:57 Last Admin: 04/20/18 20:04 Dose: 50 mg Sodium Chloride (Sodium Chloride 0.9%) 1,000 mls @ 1,000 mls/hr IV .Q1H STA Stop: 04/20/18 11:28 Last Admin: 04/20/18 10:39 Dose: 1,000 mls/hr eMAR Start Stop Document 04/20/18 10:39 ARNEL (Rec: 04/20/18 10:40 [email or web address] Intravenous Solution Start Date 04/20/18 Start Time 10:40 End Date 04/20/18 End time 11:40 Total Infusion Time 60 Sodium Chloride (Sodium Chloride 0.9%) 1,000 mls @ 100 mls/hr IV .Q10H ALEXANDRA Last Admin: 04/20/18 16:22 Dose: 100 mls/hr eMAR Start Stop Document 04/20/18 16:22 [facility] (Rec: 04[facility]20[facility]18 16[facility]22 [facility] Intravenous Solution Start Date 04/20/18 Start Time 16:22 Multivitamins/Vitamin C 10 ml/Thiamine HCl 100 mg/ Folic Acid 1 mg/ Dextrose 1, 011.2 mls @ 1,000 mls/hr IV .Q1H1M ONE Stop: 04/20/18 20:44 Last Admin: 04/20/18 23:02 Dose: 1,000 mls/hr eMAR Start Stop Document 04/20/18 23:02 (Rec: 04/20/18 23:02 [facility] Intravenous Solution Start Date 04/20/18 Start Time 22:00 End Date 04/20/18 End time 23:00 Total Infusion Time 60 Lorazepam (Ativan) 1 mg IVP ONCE ONE Stop: 04/20/18 10:30 Last Admin: 04/20/18 10:43 Dose: 1 mg IVP Administration Document 04/20/18 10:43 ARNEL (Rec: 04/20/18 10:43 [facility]NEL [facility]) Charges for Administration # of IVP Administrations 1 Morphine Sulfate (Morphine) 2 mg IVP STAT STA Stop: 04/20/18 17:32 Last Admin: 04/20/18 17:59 Dose: 2 mg MAR Pain Assessment Document 04/20/18 17:59 ARNEL (Rec: 04/20/18 18:00 [facility]EL [facility] Pain Reassessment Is this a pain reassessment? Yes Presence of Pain Presence of Pain Yes Location Pain Location Body Site Abdomen Description Description Constant Intensity of Pain at present 7 IVP Administration Document 04/20/18 17:59 ARNEL (Rec: 04/20/18 18:00 ARNEL [place] [id number]) Charges for Administration # of IVP Administrations 1 Ondansetron HCl (Zofran Inj) 4 mg IVP ONCE ONE Stop: 04/20/18 10:30 Last Admin: 04/20/18 10:43 Dose: 4 mg IVP Administration Document 04/20/18 10:43 ARNEL (Rec: 04/20/18 10:44 [email or web address] Charges for Administration # of IVP Administrations 1 Ondansetron HCl (Zofran Inj) 4 mg IVP ONCE ONE Stop: 04/20/18 14:54 Last Admin: 04/20/18 15:02 Dose: 4 mg IVP Administration Document 04/20/18 15:02 ARNEL (Rec: 04/20/18 15:02 [facility]NEL [facility]) Charges for Administration # of IVP Administrations 1 Potassium Chloride (K-Dur 20 Meq Er Tab) 40 meq PO STAT STA Stop: 04/21/18 08:53 Disposition/Present on Arrival - Present on Arrival Any Indicators Present on Arrival: No History of DVT/PE: No History of Uncontrolled Diabetes: No Urinary Catheter: No History of Decub. Ulcer: No History Surgical Site Infection Following: None - Disposition Have Diagnosis and Disposition been Completed?: Yes Diagnosis: Anxiety, Gastritis, Alcohol withdrawal, Abdominal pain Disposition: HOSPITALIZED Disposition Time: 18:55 Patient Plan: Admission, Telemetry Patient Problems: Current Active Problems Problem Status Onset Alcohol withdrawal Acute Gastritis Acute Anxiety Chronic Condition: FAIR
--- NOTE | 2018-04-20 15:49 | RAD ---
HISTORY: Chest pain COMPARISON: 03/09/2018 FINDINGS: LUNGS: No active pulmonary disease. PLEURA: No significant pleural effusion identified, no pneumothorax apparent. CARDIOVASCULAR: Normal. OSSEOUS STRUCTURES: No significant abnormalities. VISUALIZED UPPER ABDOMEN: Normal. OTHER FINDINGS: None. IMPRESSION: No active disease.
[2018-04-20] MEDS ORDERED: Sodium Chloride 0.9% 1,000 ML IV SCH ×3 (16:00→22:00)
[2018-04-20] MEDS ORDERED: Morphine 2 mg/ml ISec IVP STA (17:31)
--- NOTE | 2018-04-20 19:28 | CP.PCM.HP ---
<Guanaco Alegria - Last Filed: 04/20/18 20:58> History of Present Illness - History of Present Illness History of Present Illness: 43 year old with a past medical history of alcohol abuse, anxiety/depression, and colitis who presents to the ED with intractable nausea, vomiting, and diarrhea. He reports drinking alcohol unable to quantify, snorting cocaine, and smoking marijuana yesterday in celebration of turning [age] years old. He reports waking up this morning g at a friends place on [address] to his apartment on the [place] and becoming short of breath and having to rest. He reports experiencing nausea during his walk and on arrival at home he had 3-4 episodes of NBNB emesis. He also reports diffuse abdominal pain. He denies eating anything out of the ordinary, recent travel, but he does admit to having diarrhea after he drinks . He was admitted on the 07 of April for similar symptoms and discharged with Ciprofloxacin and Metronidazole for colitis. He was supposed to get an outpatient cardiac risk assessment in order to get an outpatient colonoscopy. In the ED he was admitted for abdominal pain and early alcohol withdrawal. PMH: Colitis, anxiety, alcohol, polysubstance abuse PSH: right ankle surgery Allergies: NKA Social: Drinks alcohol heavily since age 12, smokes since age of [age] 5-6 cigarettes a day, cocaine abuse, and marijuana abuse PMD: David Head Present on Admission - Present on Admission Any Indicators Present on Admission: No Review of Systems - Review of Systems All systems: reviewed and no additional remarkable complaints except - Constitutional Constitutional: absent: Fever, Frequent Falls, Headache, Night Sweats - EENT Eyes: absent: Blurred Vision, Diplopia Ears: absent: Decreased Hearing, Tinnitus, Dizziness Nose/Mouth/Throat: absent: Nasal Discharge, Nose Pain, Sinus Pressure - Cardiovascular Cardiovascular: Dyspnea. absent: Chest Pain with Activity, Claudication - Respiratory Respiratory: absent: Cough, Hemoptysis, Pain with Coughing - Gastrointestinal Gastrointestinal: Abdominal Pain, Bloating, Change in Bowel Habits, Loose Stools , Vomiting. absent: Coffee Ground Emesis - Genitourinary Genitourinary: absent: Change in Urinary Stream, Dysuria, Flank Pain - Musculoskeletal Musculoskeletal: absent: Abnormal Gait - Integumentary Integumentary: absent: Bleeding Lesions, Change in Pigmentation - Neurological Neurological: Abnormal Gait. absent: Behavioral Changes, Burning Sensations - Psychiatric Psychiatric: Abnormal Sleep Pattern, Anxiety - Endocrine Endocrine: absent: Deepening of Voice, Heat Intolorance, Polydipsia Past Patient History - Infectious Disease Hx of Infectious Diseases: None - Tetanus Immunizations Tetanus Immunization: Unknown - Past Medical History & Family History Past Medical History?: Yes - Past Social History Smoking Status: Current Some Days Smoker - CARDIAC Hx Cardiac Disorders: Yes Hx Hypertension: Yes - PULMONARY Hx Respiratory Disorders: No Other/Comment: light smoker - NEUROLOGICAL Hx Neurological Disorder: Yes Hx Dizziness: Yes Other/Comment: neuropathy - HEENT Hx HEENT Problems: No - RENAL Hx Chronic Kidney Disease: No - ENDOCRINE/METABOLIC Hx Endocrine Disorders: No - HEMATOLOGICAL/ONCOLOGICAL Hx Blood Disorders: No - INTEGUMENTARY Hx Dermatological Problems: No - MUSCULOSKELETAL/RHEUMATOLOGICAL Hx Falls: No - GASTROINTESTINAL Other/Comment: Colitis - GENITOURINARY/GYNECOLOGICAL Hx Genitourinary Disorders: No - PSYCHIATRIC Hx Psychophysiologic Disorder: Yes (ETOH ABUSE-2-3 BOTTLES OF VODKA DAILY, COCAINE USE,SMOKES CIGARETES) Hx Anxiety: Yes Hx Substance Use: Yes (COCAINE USE.LAST USED 2 D AGO SML BAG X 1) - SURGICAL HISTORY Hx Musculoskeletal Surgery: Yes (R foot sx with rods/screws placed) Hx Orthopedic Surgery: Yes - ANESTHESIA Hx Anesthesia: Yes Hx Anesthesia Reactions: No Hx Malignant Hyperthermia: No Meds Allergies/Adverse Reactions: Allergies Allergy/AdvReac Type Severity Reaction Status Date / Time No Known Allergies Allergy Verified 04/20/18 09:38 Physical Exam - Constitutional Appears: No Acute Distress - Head Exam Head Exam: ATRAUMATIC, NORMOCEPHALIC - Eye Exam Eye Exam: EOMI, Normal appearance - ENT Exam ENT Exam: Mucous Membranes Dry - Neck Exam Neck exam: Positive for: Normal Inspection - Respiratory Exam Respiratory Exam: Prolonged Expiratory Phase. absent: Accessory Muscle Use, Wheezes - Cardiovascular Exam Cardiovascular Exam: RRR, +S1, +S2 - GI/Abdominal Exam GI & Abdominal Exam: Hyperactive Bowel Sounds. absent: Guarding, Rebound - Extremities Exam Extremities exam: Positive for: normal inspection. Negative for: calf tenderness - Back Exam Back exam: NORMAL INSPECTION. absent: CVA tenderness (L), CVA tenderness (R) - Neurological Exam Neurological exam: Alert, Oriented x3 - Psychiatric Exam Psychiatric exam: Normal Affect, Normal Mood - Skin Skin Exam: Dry, Intact, Normal Color, Warm Results - Vital Signs Recent Vital Signs: Last Vital Signs Temp 98.2 F 04/20/18 09:36 Pulse 77 04/20/18 15:02 Resp 16 04/20/18 15:02 BP 142/94 H 04/20/18 15:02 Pulse Ox 97 04/20/18 15:02 - Labs Result Diagrams: 04/20/18 10:20 04/20/18 10:20 - EKG Data EKG Interpreted by: Myself EKG shows normal: Sinus rhythm - EKG Data When Compared to Previous EKG: No Significant Change EKG comments: LVH with possible left atrial enlargement Assessment & Plan - Assessment and Plan (Free Text) Assessment: 43 year old male with a past medical history of polysubstance abuse, colitis, anxiety and depression who presents with abdominal pain and early alcohol withdrawal. Plan: 1) Nausea, vomiting, and diarrhea likely secondary to alcohol and drug abuse - GI consulted - Clear liquid diet starting tomorrow - ADAT - Zofran 4 mg q4h PRN for nausea - Protonix 20 mg PO Daily - Bananna bag x1 and then 150 NS - Start PO MV, Folic acid, and thiamine 2) Drug abuse and NALLELY - BAL of 136 -Ativan 2 mg Q6H IVP PRN for withdrawal symptoms. - CIWA - Amylase and lipase normal 3) Cardiac risk factors - troponin in AM with repeat EKG 4) Mild transaminits -AST/ALT 63/62 likely secondary to alcohol abuse. -Will monitor at this time. - Holding Gemfibrozil at this time 5) Rhabdomyolysis - Mildly elevated CPK - 150 ml/hr NS 6) DVT/GI prophylaxis -Protonix 20 mg PO - SCD Case reviewed and discussed with attending physician, Dr. Palacios Disposition: Patient to follow up with David Head upon discharge Guanaco Alegria, PGY-1 - Date & Time Date: 04/20/18 Time: 20:43 <Gabriele Palacios - Last Filed: 04/21/18 03:20> Results - Vital Signs Recent Vital Signs: Last Vital Signs Temp 98.2 F 04/20/18 09:36 Pulse 77 04/20/18 21:11 Resp 16 04/20/18 21:11 BP 126/84 06/24/18 21:11 Pulse Ox 96 04/20/18 20:07 - Labs Result Diagrams: 04/20/18 10:20 04/20/18 10:20 Attending/Attestation - Attestation I have personally seen and examined this patient.: Yes I have fully participated in the care of the patient.: Yes I have reviewed all pertinent clinical information: Yes Notes (Text): 04/21/18 03:19 Patient was seen when he was in bed # 14 in the ER. Agree with history, physical examination, assessment and plan.
[2018-04-20] MEDS ORDERED: Multivitamin (MVI) 10 ML, Thiamine 100 MG, Folic Acid 1 MG in Dextrose 5% In Water 1,00... IV ONE ×2 (19:31→19:44)
[2018-04-20 20:22] VITALS: BMI 23.3
[2018-04-21 04:17] VITALS: RESP 20
[2018-04-21] MEDS: Pantoprazole 20 mg EC Tab PO SCH ×2 (05:26→09:43)
[2018-04-21 06:17] LABS: BARBITURATES, UR NEGATIVE (NEGATIVE); BENZODIAZEPINES, UR NEGATIVE (NEGATIVE); OPIATES, UR NEGATIVE (NEGATIVE)
[2018-04-21 06:26] LABS: PHENCYCLIDINE, UR NEGATIVE (NEGATIVE)
[2018-04-21 07:16] LABS: BASO # 0.02 K/mm3 (0.0-2.0); BASO % 0.7 % (0.0-3.0); EOS % 1.4 % (1.5-5.0); GRAN # 0.8 (1.4-6.5); GRAN % 28.9 % (50.0-68.0); HEMOGLOBIN 11.3 g/dL (14.0-18.0); LYMPH # 1.6 (1.2-3.4); LYMPH % 57.8 % (22.0-35.0); MEAN CELL VOLUME 86.5 fl (80.0-105.0); MEAN CORPUSCULAR HEMOGLOBIN 28.3 pg (25.0-35.0); MEAN CORPUSCULAR HGB CONC 32.7 g/dl (31.0-37.0); MEAN PLATELET VOLUME 10.5 fl (7.0-11.0); MONO # 0.3 (0.1-0.6); MONO % 11.2 % (1.0-6.0); RED CELL DISTRIBUTION WIDTH 14.4 % (11.5-14.5)
[2018-04-21 07:31] LABS: TROPONIN I < 0.01 ng/mL
[2018-04-21 07:53] LABS: ALB/GLOB RATIO 1.5 (1.1-1.8); ALT/SGPT 51 U/L (7-56); AST/SGOT 51 U/L (17-59); BLOOD UREA NITROGEN 12 mg/dL (7-21); CALCIUM 8.9 mg/dL (8.4-10.5); GFR AFRICAN-AMERICAN > 60; GFR NON-AFRICAN AMERICAN > 60
[2018-04-21 08:00] LABS: WHITE BLOOD COUNT 2.8 10^3/ul (4.5-11.0)
[2018-04-21 08:02] VITALS: BP 128/91; TEMP 97.2; O2SAT 99
--- NOTE | 2018-04-21 08:03 | CP.PCM.CON ---
<Linwood Dan - Last Filed: 04/21/18 12:15> History of Present Illness - History of Present Illness History of Present Illness: PGY5 GI Fellow Consult Note Patient is a 43yo male with PMHx significant for recurrent episodes of colitis, polysubstance abuse (EtOH, cocaine, marijuana), HTN who presented to the ED with abdominal pain and diarrhea. The patient was just admitted to the hospital two weeks ago for the same. This weekend patient states he was stressed out from attending a last week and began using EtOH and cocaine, continuing use for his 43th birthday two days ago. Yesterday morning, he awoke with diffuse abdominal pain, worst in the LLQ along with multiple episodes of loose, watery stool and came to the ED for further evaluation. At discharge from his last admission, patient was supposed to get cardiac clearance with a stress test in anticipation of a colonoscopy but states insurance canceled this exam and has rescheduled him. Still has not had outpatient follow up. Currently, symptoms improved and eager to eat breakfast. No nausea, vomiting or episodes overnight. 12 system ROS performed and negative except where stated PMHx: See HPI PSHx: right ankle ORIF FHx: Discussed with patient and he denies Social: Polysubstance abuse - EtOH, cocaine, marijuana, +tobacco use Endo: No prior endoscopic evaluations Past Patient History - Infectious Disease Hx of Infectious Diseases: None - Tetanus Immunizations Tetanus Immunization: Unknown - Past Medical History & Family History Past Medical History?: Yes - Past Social History Smoking Status: Current Some Days Smoker - CARDIAC Hx Cardiac Disorders: Yes Hx Hypertension: Yes - PULMONARY Hx Respiratory Disorders: No Other/Comment: light smoker - NEUROLOGICAL Hx Neurological Disorder: Yes Hx Dizziness: Yes Other/Comment: neuropathy - HEENT Hx HEENT Problems: No - RENAL Hx Chronic Kidney Disease: No - ENDOCRINE/METABOLIC Hx Endocrine Disorders: No - HEMATOLOGICAL/ONCOLOGICAL Hx Blood Disorders: No - INTEGUMENTARY Hx Dermatological Problems: No - MUSCULOSKELETAL/RHEUMATOLOGICAL Hx Falls: No - GASTROINTESTINAL Other/Comment: Colitis - GENITOURINARY/GYNECOLOGICAL Hx Genitourinary Disorders: No - PSYCHIATRIC Hx Psychophysiologic Disorder: Yes (ETOH ABUSE-2-3 BOTTLES OF VODKA DAILY, COCAINE USE,SMOKES CIGARETES) Hx Anxiety: Yes Hx Substance Use: Yes (COCAINE USE.LAST USED 2 D AGO SML BAG X 1) - SURGICAL HISTORY Hx Musculoskeletal Surgery: Yes (R foot sx with rods/screws placed) Hx Orthopedic Surgery: Yes - ANESTHESIA Hx Anesthesia: Yes Hx Anesthesia Reactions: No Hx Malignant Hyperthermia: No Meds Allergies/Adverse Reactions: Allergies Allergy/AdvReac Type Severity Reaction Status Date / Time No Known Allergies Allergy Verified 04/20/18 09:38 - Medications Medications: Current Medications Sodium Chloride (Sodium Chloride 0.9%) 1,000 mls @ 150 mls/hr IV .Q6H40M [facility] Last Admin: 04/21/18 00:04 Dose: 150 mls/hr Lorazepam (Ativan) 2 mg IVP Q4H PRN; Protocol PRN Reason: Symptoms of alcohol withdrawl Multivitamins (Thera Tab) 1 tab PO DAILY [facility] Ondansetron HCl (Zofran Inj) 4 mg IVP Q4H PRN PRN Reason: Nausea/Vomiting Pantoprazole Sodium (Protonix Ec Tab) 20 mg PO DAILY [facility] Last Admin: 04/21/18 05:26 Dose: 20 mg Thiamine HCl (Vitamin B1 Tab) 100 mg PO DAILY [facility] Physical Exam - Constitutional Appears: Non-toxic, No Acute Distress - Eye Exam Eye Exam: EOMI, PERRL - ENT Exam ENT Exam: Mucous Membranes Moist - Respiratory Exam Respiratory Exam: Clear to Auscultation Bilateral. absent: Rales, Rhonchi, Wheezes - Cardiovascular Exam Cardiovascular Exam: RRR, +S1, +S2 - GI/Abdominal Exam GI & Abdominal Exam: Normal Bowel Sounds, Soft, Tenderness (LLQ). absent: Distended, Firm, Guarding, Hernia, Mass, Organomegaly, Rigid - Extremities Exam Extremities exam: Positive for: normal inspection. Negative for: pedal edema - Neurological Exam Neurological exam: Alert, Oriented x3 - Psychiatric Exam Psychiatric exam: Normal Affect, Normal Mood - Skin Skin Exam: Dry, Warm Results - Vital Signs Recent Vital Signs: Last Vital Signs Temp 98.4 F 04/21/18 00:01 Pulse 90 04/21/18 00:01 Resp 20 04/21/18 00:01 BP 127/88 04/21/18 00:01 Pulse Ox 98 04/21/18 00:01 - Labs Result Diagrams: 04/21/18 07:01 04/21/18 07:01 Labs: Laboratory Results - last 24 hr 04/21/18 04/21/18 05:20 07:01 Sodium 139 Potassium 3.4 L Chloride 102 Carbon Dioxide 26 Anion Gap 15 BUN 12 Creatinine 0.8 Est GFR ( Amer) > 60 Est GFR (Non-Af Amer) > 60 Random Glucose 97 Calcium 8.9 Total Bilirubin 0.8 AST 51 ALT 51 Alkaline Phosphatase 52 Troponin I < 0.01 Total Protein 6.7 Albumin 4.0 Globulin 2.7 Albumin/Globulin Ratio 1.5 Urine Opiates Screen Negative Urine Methadone Screen Negative Ur Barbiturates Screen Negative Ur Phencyclidine Scrn Negative Ur Amphetamines Screen Negative U Benzodiazepines Scrn Negative U Oth Cocaine Metabols Positive H U Cannabinoids Screen Negative Assessment & Plan - Assessment and Plan (Free Text) Assessment: Patient is a 43yo male with PMHx significant for recurrent episodes of colitis, polysubstance abuse (EtOH, cocaine, marijuana), HTN who presented to the ED with abdominal pain and diarrhea -Abdominal pain with recurrent colitis suspected given recent history -Polysubstance abuse - most recent use 1 day [employer] -? CAD Plan: -Recurrent episodes of colitis suspects 2/2 recent/ongoing cocaine use -Patient would benefit from colonoscopy to evaluate, however is in need of cardiac work up/clearance and has been nonadherent outpatient -Stressed importance of lifestyle changes -Can check stool infectious work up given persistence of illness -Consider rechecking HIV given leukopenia and frequent illness -No plan for inpatient endoscopic evaluation - recommend outpatient follow up once acute event has resolved -Consider inpatient cardiac work up if indicated -Encourage patient follow up outpatient with established specialist physicians - Date & Time Date: 04/21/18 Time: 07:30 <Miguel Moreno - Last Filed: 04/21/18 12:22> Meds - Medications Medications: Current Medications Sodium Chloride (Sodium Chloride 0.9%) 1,000 mls @ 150 mls/hr IV .Q6H40M [facility] Last Admin: 04/21/18 00:04 Dose: 150 mls/hr Lorazepam (Ativan) 2 mg IVP Q4H PRN; Protocol PRN Reason: Symptoms of alcohol withdrawl Multivitamins (Thera Tab) 1 tab PO DAILY [facility] Last Admin: 04/21/18 09:44 Dose: 1 tab Ondansetron HCl (Zofran Inj) 4 mg IVP Q4H PRN PRN Reason: Nausea/Vomiting Pantoprazole Sodium (Protonix Ec Tab) 20 mg PO DAILY [facility] Last Admin: 04/21/18 09:43 Dose: 20 mg Thiamine HCl (Vitamin B1 Tab) 100 mg PO DAILY [facility] Last Admin: 04/21/18 09:44 Dose: 100 mg Results - Vital Signs Recent Vital Signs: Last Vital Signs Temp 97.2 F L 04/21/18 08:01 Pulse 68 04/21/18 08:01 Resp 20 04/21/18 08:01 BP 128/91 H 04/21/18 08:01 Pulse Ox 99 04/21/18 08:01 - Labs Result Diagrams: 04/21/18 07:01 04/21/18 07:01 Labs: Laboratory Results - last 24 hr 04/21/18 04/21/18 04/21/18 05:20 07:01 07:01 WBC 2.8 L* RBC 4.00 Hgb 11.3 L Hct 34.6 L MCV 86.5 MCH 28.3 MCHC 32.7 RDW 14.4 Plt Count 194 MPV 10.5 Gran % 28.9 L Lymph % (Auto) 57.8 H [place] % (Auto) 11.2 H Eos % (Auto) 1.4 L Baso % (Auto) 0.7 Gran # 0.80 L Lymph # (Auto) 1.6 [place] # (Auto) 0.3 Eos # (Auto) 0.0 Baso # (Auto) 0.02 Sodium 139 Potassium 3.4 L Chloride 102 Carbon Dioxide 26 Anion Gap 15 BUN 12 Creatinine 0.8 Est GFR ( Amer) > 60 Est GFR (Non-Af Amer) > 60 Random Glucose 97 Calcium 8.9 Total Bilirubin 0.8 AST 51 ALT 51 Alkaline Phosphatase 52 Troponin I < 0.01 Total Protein 6.7 Albumin 4.0 Globulin 2.7 Albumin/Globulin Ratio 1.5 Urine Opiates Screen Negative Urine Methadone Screen Negative Ur Barbiturates Screen Negative Ur Phencyclidine Scrn Negative Ur Amphetamines Screen Negative U Benzodiazepines Scrn Negative U Oth Cocaine Metabols Positive H U Cannabinoids Screen Negative Attending/Attestation - Attestation I have personally seen and examined this patient.: Yes I have fully participated in the care of the patient.: Yes I have reviewed all pertinent clinical information: Yes Notes (Text): 04/21/18 12:20 This is a 43 yr old male with PMHx significant for recurrent episodes of colitis , polysubstance abuse (EtOH, cocaine, marijuana), HTN who presented to the ED with abdominal pain and diarrhea. Stool infectious work up. Lifestyle changes with cessation of drugs and alcohol
--- NOTE | 2018-04-21 08:08 | CARD ---
APPROVED REPORT EKG Measurement Heart [id number] <Conclusion> Normal sinus rhythm Possible Left atrial enlargement Left ventricular hypertrophy Abnormal ECG
[2018-04-21] MEDS ORDERED: Potassium Chloride 20 mEq ER Tab PO STA (08:52)
[2018-04-21] MEDS ORDERED: Multivitamin Therapeutic Tab PO SCH (10:00)
[2018-04-21 14:10] VITALS: PULSE 86
--- NOTE | 2018-04-21 15:35 | CP.PCM.DIS ---
<Mary Medina - Last Filed: 04/21/18 17:05> Provider - Provider Date of Admission: 04/20/18 18:56 Attending physician: Yi Oliver MD Primary care physician: Griselda Heard MD Consults: LUCILLE limon Time Spent in preparation of Discharge (in minutes): 60 Diagnosis - Discharge Diagnosis (1) Nausea and vomiting Status: Acute (2) Cocaine abuse Status: Acute (3) Abdominal pain Status: Acute (4) Alcohol withdrawal Status: Acute Hospital Course - Lab Results Lab Results: Most Recent Lab Values WBC 2.8 10^3/ul (4.5-11.0) L* 04/21/18 07:01 RBC 4.00 10^6/uL (3.5-6.1) 04/21/18 07:01 Hgb 11.3 g/dL (14.0-18.0) L 04/21/18 07:01 Hct 34.6 % (42.0-52.0) L 04/21/18 07:01 MCV 86.5 fl (80.0-105.0) 04/21/18 07:01 MCH 28.3 pg (25.0-35.0) 04/21/18 07:01 MCHC 32.7 g/dl (31.0-37.0) 04/21/18 07:01 RDW 14.4 % (11.5-14.5) 04/21/18 07:01 Plt Count 194 10^3/uL (120.0-450.0) 04/21/18 07:01 MPV 10.5 fl (7.0-11.0) 04/21/18 07:01 Gran % 28.9 % (50.0-68.0) L 04/21/18 07:01 Lymph % (Auto) 57.8 % (22.0-35.0) H 04/21/18 07:01 [place] % (Auto) 11.2 % (1.0-6.0) H 04/21/18 07:01 Eos % (Auto) 1.4 % (1.5-5.0) L 04/21/18 07:01 Baso % (Auto) 0.7 % (0.0-3.0) 04/21/18 07:01 Gran # 0.80 (1.4-6.5) L 04/21/18 07:01 Lymph # (Auto) 1.6 (1.2-3.4) 04/21/18 07:01 [place] # (Auto) 0.3 (0.1-0.6) 04/21/18 07:01 Eos # (Auto) 0.0 (0.0-0.7) 04/21/18 07:01 Baso # (Auto) 0.02 K/mm3 (0.0-2.0) 04/21/18 07:01 PT 11.5 SECONDS (9.4-12.5) 04/20/18 10:20 INR 1.00 (0.93-1.08) 04/20/18 10:20 APTT 25.3 Seconds (25.1-36.5) 04/20/18 10:20 Sodium 139 mmol/L (132-148) 04/21/18 07:01 Potassium 3.4 mmol/L (3.6-5.0) L 04/21/18 07:01 Chloride 102 mmol/L (98-107) 04/21/18 07:01 Carbon Dioxide 26 mmol/L (21-33) 04/21/18 07:01 Anion Gap 15 (10-20) 04/21/18 07:01 BUN 12 mg/dL (7-21) 04/21/18 07:01 Creatinine 0.8 mg/dl (0.8-1.5) 04/21/18 07:01 Est GFR ( Amer) > 60 04/21/18 07:01 Est GFR (Non-Af Amer) > 60 04/21/18 07:01 Random Glucose 97 mg/dL (70-110) 04/21/18 07:01 Calcium 8.9 mg/dL (8.4-10.5) 04/21/18 07:01 Magnesium 1.8 mg/dL (1.7-2.2) 04/20/18 10:20 Total Bilirubin 0.8 mg/dL (0.2-1.3) 04/21/18 07:01 AST 51 U/L (17-59) 04/21/18 07:01 ALT 51 U/L (7-56) 04/21/18 07:01 Alkaline Phosphatase 52 U/L (38-126) 04/21/18 07:01 Lactate Dehydrogenase 505 U/L (333-699) 04/20/18 10:20 Total Creatine Kinase 371 U/L (35-230) H 04/20/18 10:20 CK-MB (CK-2) 2.8 ng/mL (0.0-3.6) 04/20/18 10:20 CK-MB (CK-2) % Cancelled 04/20/18 10:20 Troponin I < 0.01 ng/mL 04/21/18 07:01 Total Protein 6.7 g/dL (5.8-8.3) 04/21/18 07:01 Albumin 4.0 g/dL (3.0-4.8) 04/21/18 07:01 Globulin 2.7 gm/dL 04/21/18 07:01 Albumin/Globulin Ratio 1.5 (1.1-1.8) 04/21/18 07:01 Amylase 77 U/L (35-125) 04/20/18 10:20 Lipase 78 U/L (23-300) 04/20/18 10:20 Urine Color Yellow (YELLOW) 04/20/18 10:20 Urine Appearance Clear (CLEAR) 04/20/18 10:20 Urine pH 6.0 (4.7-8.0) 04/20/18 10:20 Ur Specific [place] >= 1.030 (1.005-1.035) 04/20/18 10:20 Urine Protein Trace mg/dL (<30 mg/dL) H 04/20/18 10:20 Urine Glucose (UA) Negative mg/dL (NEGATIVE) 04/20/18 10:20 Urine Ketones Negative mg/dL (NEGATIVE) 04/20/18 10:20 Urine Blood Negative (NEGATIVE) 04/20/18 10:20 Urine Nitrate Negative (NEGATIVE) 04/20/18 10:20 Urine Bilirubin Negative (NEGATIVE) 04/20/18 10:20 Urine Urobilinogen 0.2 E.U./dL (<1 E.U./dL) 04/20/18 10:20 Ur Leukocyte Esterase Negative Georges/uL (NEGATIVE) 04/20/18 10:20 Urine RBC 0 - 2 /hpf (0-2) 04/20/18 10:20 Urine WBC 0 - 2 /hpf (0-6) 04/20/18 10:20 Ur Epithelial Cells 0 - 2 /hpf (0-5) 04/20/18 10:20 Urine Bacteria Small (NEG) 04/20/18 10:20 Urine Opiates Screen Negative (NEGATIVE) 04/21/18 05:20 Urine Methadone Screen Negative (NEGATIVE) 04/21/18 05:20 Ur Barbiturates Screen Negative (NEGATIVE) 04/21/18 05:20 Ur Phencyclidine Scrn Negative (NEGATIVE) 04/21/18 05:20 Ur Amphetamines Screen Negative (NEGATIVE) 04/21/18 05:20 U Benzodiazepines Scrn Negative (NEGATIVE) 04/21/18 05:20 U Oth Cocaine Metabols Positive (NEGATIVE) H 04/21/18 05:20 U Cannabinoids Screen Negative (NEGATIVE) 04/21/18 05:20 Alcohol, Quantitative 136 mg/dL (0-10) H 04/20/18 10:20 - Hospital Course Hospital Course: 43 year old with a past medical history of alcohol abuse, anxiety/depression, and colitis who presents to the ED with intractable nausea, vomiting, and diarrhea. He reports drinking alcohol unable to quantify, snorting cocaine, and smoking marijuana yesterday in celebration of turning [age] years old. He reports waking up this morning at a friends [address] to his apartment on the [place] and becoming short of breath and having to rest. He was admitted on the 07 of April for similar symptoms and discharged with Ciprofloxacin and Metronidazole for colitis. He was supposed to get an outpatient cardiac risk assessment in order to get an outpatient colonoscopy, but could not get it due to insurance issues. UDS positive for cocaine, etoh level 136. GI consulted, recommended cessation of cocaine. Pt initially started on clear liqquid diet, gradually advanced to regular diet, tolerating well. As per bedside nurses, no diarrheal episodes noted during the admission. This AM, pt denies nausea, vomiting. Pt also observed for alcohol withdrawal, PT evaluated patient and recommended home. Pt to go home when sister comes today around 5 PM, understands that he needs to quit alcohol/drug use. Understands that he needs outpatient colonoscopy, states that he will try to talk to insurance group to figure out which GI doctor and cardiology accepts his insurance. Pt will follow up with [facility] medical group in 1 week. Case seen and discussed with Dr Oliver. Mary Medina, PGY1 Discharge Exam - Head Exam Head Exam: ATRAUMATIC, NORMOCEPHALIC - Eye Exam Eye Exam: EOMI, PERRL. absent: Conjunctival injection, Nystagmus, Scleral icterus Pupil Exam: NORMAL ACCOMODATION, PERRL. absent: Irregular, Miosis, Unequal - ENT Exam ENT Exam: Mucous Membranes Moist - Neck Exam Neck exam: Full Rom - Respiratory Exam Respiratory Exam: Clear to PA & Lateral, NORMAL BREATHING PATTERN. absent: Chest Wall Tenderness, Prolonged Expiratory Phase, Rales, Rhonchi, Wheezes, Respiratory Distress, Stridor - Cardiovascular Exam Cardiovascular Exam: RRR, +S1, +S2. absent: Systolic Murmur - GI/Abdominal Exam GI & Abdominal Exam: Normal Bowel Sounds, Soft. absent: Distended, Firm, Guarding, Mass, Organomegaly, Pulsatile Mass, Rebound, Rigid, Tenderness - Extremities Exam Extremities exam: normal inspection - Back Exam Back exam: NORMAL INSPECTION - Neurological Exam Neurological exam: Alert, Oriented x3 - Psychiatric Exam Psychiatric exam: Normal Affect, Normal Mood - Skin Skin Exam: Dry, Normal Color, Warm Discharge Plan - Follow Up Plan Condition: FAIR Disposition: HOME/ ROUTINE Instructions: Acute Abdomen (Belly Pain), Adult (DC), Nausea and Vomiting, Adult (DC), Alcohol Abuse and Alcoholism (DC) Additional Instructions: - Follow up outpatient with GI doctor in 1 week. Obtain cardiac clearance. - Follow up with [facility] group - pMD in 1 week - Return to ER for any concerns. Referrals: Griselda Heard MD [Primary Care Provider] - <Yi Oliver - Last Filed: 04/22/18 11:26> Provider - Provider Date of Admission: 04/20/18 18:56 Attending physician: Yi Oliver MD Primary care physician: Griselda Heard MD Hospital Course - Lab Results Lab Results: Most Recent Lab Values WBC 2.8 10^3/ul (4.5-11.0) L* 04/21/18 07:01 RBC 4.00 10^6/uL (3.5-6.1) 04/21/18 07:01 Hgb 11.3 g/dL (14.0-18.0) L 04/21/18 07:01 Hct 34.6 % (42.0-52.0) L 04/21/18 07:01 MCV 86.5 fl (80.0-105.0) 04/21/18 07:01 MCH 28.3 pg (25.0-35.0) 04/21/18 07:01 MCHC 32.7 g/dl (31.0-37.0) 04/21/18 07:01 RDW 14.4 % (11.5-14.5) 04/21/18 07:01 Plt Count 194 10^3/uL (120.0-450.0) 04/21/18 07:01 MPV 10.5 fl (7.0-11.0) 04/21/18 07:01 Gran % 28.9 % (50.0-68.0) L 04/21/18 07:01 Lymph % (Auto) 57.8 % (22.0-35.0) H 04/21/18 07:01 [place] % (Auto) 11.2 % (1.0-6.0) H 04/21/18 07:01 Eos % (Auto) 1.4 % (1.5-5.0) L 04/21/18 07:01 Baso % (Auto) 0.7 % (0.0-3.0) 04/21/18 07:01 Gran # 0.80 (1.4-6.5) L 04/21/18 07:01 Lymph # (Auto) 1.6 (1.2-3.4) 04/21/18 07:01 [place] # (Auto) 0.3 (0.1-0.6) 04/21/18 07:01 Eos # (Auto) 0.0 (0.0-0.7) 04/21/18 07:01 Baso # (Auto) 0.02 K/mm3 (0.0-2.0) 04/21/18 07:01 PT 11.5 SECONDS (9.4-12.5) 04/20/18 10:20 INR 1.00 (0.93-1.08) 04/20/18 10:20 APTT 25.3 Seconds (25.1-36.5) 04/20/18 10:20 Sodium 139 mmol/L (132-148) 04/21/18 07:01 Potassium 3.4 mmol/L (3.6-5.0) L 04/21/18 07:01 Chloride 102 mmol/L (98-107) 04/21/18 07:01 Carbon Dioxide 26 mmol/L (21-33) 04/21/18 07:01 Anion Gap 15 (10-20) 04/21/18 07:01 BUN 12 mg/dL (7-21) 04/21/18 07:01 Creatinine 0.8 mg/dl (0.8-1.5) 04/21/18 07:01 Est GFR ( Amer) > 60 04/21/18 07:01 Est GFR (Non-Af Amer) > 60 04/21/18 07:01 Random Glucose 97 mg/dL (70-110) 04/21/18 07:01 Calcium 8.9 mg/dL (8.4-10.5) 04/21/18 07:01 Magnesium 1.8 mg/dL (1.7-2.2) 04/20/18 10:20 Total Bilirubin 0.8 mg/dL (0.2-1.3) 04/21/18 07:01 AST 51 U/L (17-59) 04/21/18 07:01 ALT 51 U/L (7-56) 04/21/18 07:01 Alkaline Phosphatase 52 U/L (38-126) 04/21/18 07:01 Lactate Dehydrogenase 505 U/L (333-699) 04/20/18 10:20 Total Creatine Kinase 371 U/L (35-230) H 04/20/18 10:20 CK-MB (CK-2) 2.8 ng/mL (0.0-3.6) 04/20/18 10:20 CK-MB (CK-2) % Cancelled 04/20/18 10:20 Troponin I < 0.01 ng/mL 04/21/18 07:01 Total Protein 6.7 g/dL (5.8-8.3) 04/21/18 07:01 Albumin 4.0 g/dL (3.0-4.8) 04/21/18 07:01 Globulin 2.7 gm/dL 04/21/18 07:01 Albumin/Globulin Ratio 1.5 (1.1-1.8) 04/21/18 07:01 Amylase 77 U/L (35-125) 04/20/18 10:20 Lipase 78 U/L (23-300) 04/20/18 10:20 Urine Color Yellow (YELLOW) 04/20/18 10:20 Urine Appearance Clear (CLEAR) 04/20/18 10:20 Urine pH 6.0 (4.7-8.0) 04/20/18 10:20 Ur Specific [place] >= 1.030 (1.005-1.035) 04/20/18 10:20 Urine Protein Trace mg/dL (<30 mg/dL) H 04/20/18 10:20 Urine Glucose (UA) Negative mg/dL (NEGATIVE) 04/20/18 10:20 Urine Ketones Negative mg/dL (NEGATIVE) 04/20/18 10:20 Urine Blood Negative (NEGATIVE) 04/20/18 10:20 Urine Nitrate Negative (NEGATIVE) 04/20/18 10:20 Urine Bilirubin Negative (NEGATIVE) 04/20/18 10:20 Urine Urobilinogen 0.2 E.U./dL (<1 E.U./dL) 04/20/18 10:20 Ur Leukocyte Esterase Negative Georges/uL (NEGATIVE) 04/20/18 10:20 Urine RBC 0 - 2 /hpf (0-2) 04/20/18 10:20 Urine WBC 0 - 2 /hpf (0-6) 04/20/18 10:20 Ur Epithelial Cells 0 - 2 /hpf (0-5) 04/20/18 10:20 Urine Bacteria Small (NEG) 04/20/18 10:20 Urine Opiates Screen Negative (NEGATIVE) 04/21/18 05:20 Urine Methadone Screen Negative (NEGATIVE) 04/21/18 05:20 Ur Barbiturates Screen Negative (NEGATIVE) 04/21/18 05:20 Ur Phencyclidine Scrn Negative (NEGATIVE) 04/21/18 05:20 Ur Amphetamines Screen Negative (NEGATIVE) 04/21/18 05:20 U Benzodiazepines Scrn Negative (NEGATIVE) 04/21/18 05:20 U Oth Cocaine Metabols Positive (NEGATIVE) H 04/21/18 05:20 U Cannabinoids Screen Negative (NEGATIVE) 04/21/18 05:20 Alcohol, Quantitative 136 mg/dL (0-10) H 04/20/18 10:20 Attending/Attestation - Attestation I have personally seen and examined this patient.: Yes I have fully participated in the care of the patient.: Yes I have reviewed all pertinent clinical information, including history, physical exam and plan: Yes Notes (Text): 04/22/18 11:25 Attending note; Patient seen and examined with resident. Patient is a 42 year old male with past medical history of cocaine abuse and chronic alcohol abuse who presents with complaint of abdominal pain with nausea , vomiting. patient with a history of continuous alcohol abuse. Complete alcohol cessation is strongly advised. Started on liquid diet. Currently no abdominal pain. Lipase is normal. Advance to low-fat low-cholesterol diet. Discharge home today. Upon discharge patient will follow up with Dr Félix Uribe. Diagnosis; Alcohol abuse Noncompliance with follow-up
--- NOTE | 2018-04-21 22:42 | CARD ---
APPROVED REPORT EKG Measurement Heart [id number] <Conclusion> Normal sinus rhythm Minimal voltage criteria for LVH, may be normal variant Borderline ECG
== END 2018-04-21 17:45 | disposition home or self-care (01) ==
LOC: ED 09:34 → ERH 18:56 → 3RNO 21:36
PROVIDERS: ADMIT Internal Medicine; ATTEND Internal Medicine
DX: F10.239 Alcohol dependence with withdrawal, unspecified (principal); R10.9 Unspecified abdominal pain; F14.10 Cocaine abuse, uncomplicated; F12.10 Cannabis abuse, uncomplicated; K29.00 Acute gastritis without bleeding; F41.9 Anxiety disorder, unspecified; F32.9 Major depressive disorder, single episode, unspecified; G62.9 Polyneuropathy, unspecified; I10 Essential (primary) hypertension; K52.9 Noninfective gastroenteritis and colitis, unspecified; F17.200 Nicotine dependence, unspecified, uncomplicated; Y90.6 Blood alcohol level of 120-199 mg/100 ml; Z91.19 Patient's noncompliance with other medical treatment and regimen
CPT/HCPCS: 36415; 71045; 80053; 80320; 80324; 80345; 80346; 80349; 80353; 80358; 80361; 81001; 82150; 82550; 82553; 83615; 83690; 83735; 83992; 84484; 85025; 85610; 85730; 93005; 96361; 96365; 96375; 96376; 97116; 97161; 99285; G0378; G8978; G8979; G8980; J2060; J2270; J2405; J3411; J7030; J7070

== ENCOUNTER 2018-04-29 09:23 | Emergency (ER) | payer MEDICAID ==
[2018-04-29 09:32] VITALS: BMI 21.9
[2018-04-29 09:37] VITALS: RESP 18
[2018-04-29] MEDS ORDERED: Sodium Chloride 0.9% 1,000 ML IV STA (09:44)
[2018-04-29 10:31] LABS: BASO # 0.01 K/mm3 (0.0-2.0); BASO % 0.4 % (0.0-3.0); EOS % 0.9 % (1.5-5.0); GRAN % 44.7 % (50.0-68.0); LYMPH % 45.5 % (22.0-35.0); MEAN CELL VOLUME 86.3 fl (80.0-105.0); MEAN CORPUSCULAR HEMOGLOBIN 29.3 pg (25.0-35.0); MEAN CORPUSCULAR HGB CONC 33.9 g/dl (31.0-37.0); MEAN PLATELET VOLUME 10.6 fl (7.0-11.0); MONO # 0.2 (0.1-0.6); MONO % 8.5 % (1.0-6.0); RBC 4.1 10^6/uL (3.5-6.1); RED CELL DISTRIBUTION WIDTH 14.2 % (11.5-14.5)
[2018-04-29 10:33] LABS: WHITE BLOOD COUNT 2.2 10^3/ul (4.5-11.0)
[2018-04-29 10:45] LABS: ALB/GLOB RATIO 1.5 (1.1-1.8); ALBUMIN 4.4 g/dL (3.0-4.8); ALT/SGPT 80 U/L (7-56); AST/SGOT 103 U/L (17-59); BLOOD UREA NITROGEN 13 mg/dL (7-21); GFR AFRICAN-AMERICAN > 60; GFR NON-AFRICAN AMERICAN > 60; LIPASE 160 U/L (23-300)
[2018-04-29 10:53] LABS: TROPONIN I < 0.01 ng/mL
[2018-04-29] MEDS ORDERED: Iohexol 350 MG/100 ML VIAL ONE (10:53)
--- NOTE | 2018-04-29 11:39 | ED PDOC ---
Arrival/HPI - General Chief Complaint: Shortness Of Breath Time Seen by Provider: 04/29/18 09:26 Historian: Patient - History of Present Illness Narrative History of Present Illness (Text): 04/29/18 11:32 A 43 year old male, well known to the emergency room, presents to the emergency department complaining of chronic abdominal pain. Patient notes nausea, 1 episode of vomiting and mild shortness of breath. Patient seen and admitted for same complaints. Patient denies any fever, chills, chest pain or any other complaints. Time/Duration: Other (today) Symptom Course: Other (chronic) Quality: Other Context: Other Past Medical History - Provider Review Nursing Documentation Reviewed: Yes - Past History Past History: No Previous - Infectious Disease Hx of Infectious Diseases: None - Tetanus Immunization Tetanus Immunization: Unknown - Past Medical History Past Medical History: No Previous - Cardiac Hx Cardiac Disorders: Yes Hx Hypertension: Yes - Pulmonary Hx Respiratory Disorders: No Other/Comment: light smoker - Neurological Hx Neurological Disorder: Yes Hx Dizziness: Yes Other/Comment: neuropathy - HEENT Hx HEENT Disorder: No - Renal Hx Renal Disorder: No - Endocrine/Metabolic Hx Endocrine Disorders: No - Hematological/Oncological Hx Blood Disorders: No - Integumentary Hx Dermatological Disorder: No - Musculoskeletal/Rheumatological Hx Falls: No - Gastrointestinal Other/Comment: Colitis - Genitourinary/Gynecological Hx Genitourinary Disorders: No - Psychiatric Hx Psychophysiologic Disorder: Yes (ETOH ABUSE-2-3 BOTTLES OF VODKA DAILY, COCAINE USE,SMOKES CIGARETES) Hx Anxiety: Yes Hx Substance Use: Yes (COCAINE USE.LAST USED 2 D AGO SML BAG X 1) - Past Surgical History Past Surgical History: Non-Contributing - Surgical History Hx Musculoskeletal Surgery: Yes (R foot sx with rods/screws placed) Hx Orthopedic Surgery: Yes - Anesthesia Hx Anesthesia: Yes Hx Anesthesia Reactions: No Hx Malignant Hyperthermia: No - Suicidal Assessment Feels Threatened In Home Enviroment: No Family/Social History - Physician Review Nursing Documentation Reviewed: Yes Family/Social History: No Known Family HX Smoking Status: Current Some Days Smoker Hx Alcohol Use: Yes (ETOH ABUSE.DRINKS VODKA DAILY. LAST DRANK 2-3 BTLS OF VODKA YESTERDAY.) Hx Substance Use: Yes (COCAINE USE.LAST USED 2 D AGO SML BAG X 1) Substance used: marijuana & cocaine Hx Substance Use Treatment: No Allergies/Home Meds Allergies/Adverse Reactions: Allergies No Known Allergies Allergy (Verified 04/29/18 09:30) Review of Systems - Physician Review All systems were reviewed & negative as marked: Yes - Review of Systems Constitutional: absent: Fevers, Night Sweats Respiratory: SOB Cardiovascular: absent: Chest Pain Gastrointestinal: Abdominal Pain, Nausea, Vomiting Physical Exam Vital Signs Reviewed: Yes Vital Signs Temp Pulse Resp BP Pulse Ox 04/29/18 13:07 98.3 F 82 18 130/78 98 04/29/18 09:37 18 97 04/29/18 09:31 98.2 F 85 18 133/87 97 Temperature: Afebrile Blood Pressure: Normal Pulse: Regular Respiratory Rate: Normal Appearance: Positive for: Well-Appearing, Non-Toxic, Comfortable Pain Distress: None Mental Status: Positive for: Alert and Oriented X 3 - Systems Exam Head: Present: Atraumatic, Normocephalic Pupils: Present: PERRL Extroacular Muscles: Present: EOMI Conjunctiva: Present: Normal Mouth: Present: Moist Mucous Membranes Neck: Present: Normal Range of Motion Respiratory/Chest: Present: Clear to Auscultation, Good Air Exchange. No: Respiratory Distress, Accessory Muscle Use Cardiovascular: Present: Regular Rate and Rhythm, Normal S1, S2. No: Murmurs Abdomen: Present: Tenderness (mild diffuse tenderness), Normal Bowel Sounds. No : Distention, Peritoneal Signs Back: Present: Normal Inspection Upper Extremity: Present: Normal Inspection. No: Cyanosis, Edema Lower Extremity: Present: Normal Inspection. No: Edema Neurological: Present: GCS=15, CN II-XII Intact, Speech Normal Skin: Present: Warm, Dry, Normal Color. No: Rashes Psychiatric: Present: Alert, Oriented x 3, Normal Insight, Normal Concentration Medical Decision Making ED Course and Treatment: 04/29/18 11:32 Impression: A 43 yea old male with chronic abdominal pain. Patient notes mild nausea and vomiting. Plan: -- Abdomen and pelvis CT -- EKG -- EKG -- Pepcid, Zofran and IV fluids -- Reassess and disposition Progress Notes: EKG shows NSR at 76 BPM with normal axis. Interpreted by me. Report Date : 04/29/2018 12:07:23 PROCEDURE: CT Abdomen and Pelvis with contrast Dictator : Tara Chu IMPRESSION: The incomplete distention/ and mild mural prominence - rectosigmoid segment probably slightly decreased compared to the prior study -no progressive colitis suggested. Minimal mild colitis here possible. No obstruction, free air, abscess or surrounding pericolonic fat inflammatory changes suggested Redundant colon with few scattered diverticuli. No complicating diverticulitis Prominent prostate with left posterolateral slightly hyper dense focal nodular prominence to it. For this urological consultation recommended Fatty liver as before - Lab Interpretations Lab Results: 04/29/18 10:10 04/29/18 10:10 Lab Results 04/29/18 10:10: Alcohol, Quantitative 77 H 04/29/18 10:10: Sodium 143, Potassium 3.9, Chloride 104, Carbon Dioxide 23, Anion Gap 20, BUN 13, Creatinine 0.8, Est GFR ( Amer) > 60, Est GFR (Non- Af Amer) > 60, Random Glucose 85, Calcium 9.0, Magnesium 1.8, Total Bilirubin 0.2, AST 103 H D, ALT 80 H, Alkaline Phosphatase 68, Troponin I < 0.01, Total Protein 7.3, Albumin 4.4, Globulin 2.9, Albumin/Globulin Ratio 1.5, Lipase 160 04/29/18 10:10: WBC 2.2 L* D, RBC 4.10, Hgb 12.0 L, Hct 35.4 L, MCV 86.3, MCH 29.3, MCHC 33.9, RDW 14.2, Plt Count 194, MPV 10.6, Gran % 44.7 L, Lymph % (Auto ) 45.5 H, Leslie % (Auto) 8.5 H, Eos % (Auto) 0.9 L, Baso % (Auto) 0.4, Gran # 1.00 L, Lymph # (Auto) 1.0 L, Leslie # (Auto) 0.2, Eos # (Auto) 0.0, Baso # (Auto ) 0.01 - RAD Interpretation Radiology Orders: 04/29/18 09:44 ABD & PELVIS IV CONTRAST ONLY [CT] Stat - Medication Orders Current Medication Orders: Discontinued Medications Famotidine (Pepcid) 20 mg IVP STAT STA Stop: 04/29/18 09:45 Last Admin: 04/29/18 10:26 Dose: 20 mg IVP Administration Document 04/29/18 10:26 [email or web address] (Rec: 04/29/18 10:26 [email or web address] [id number]) Charges for Administration # of IVP Administrations 1 Sodium Chloride (Sodium Chloride 0.9%) 1,000 mls @ 100 mls/hr IV .Q10H STA Stop: 04/29/18 19:43 Last Admin: 04/29/18 10:26 Dose: 100 mls/hr eMAR Start Stop Document 04/29/18 10:26 [email or web address] (Rec: 04/29/18 10:26 [email or web address] [id number]) Intravenous Solution Start Date 04/29/18 Start Time 10:26 End Date 04/29/18 Ondansetron HCl (Zofran Inj) 4 mg IVP STAT STA Stop: 04/29/18 09:45 Last Admin: 04/29/18 10:26 Dose: 4 mg IVP Administration Document 04/29/18 10:26 [email or web address] (Rec: 04/29/18 10:26 [email or web address] [id number]) Charges for Administration # of IVP Administrations 1 - Scribe Statement The provider has reviewed the documentation as recorded by the Viralibe Hui Recinos Provider Scribe Attestation: All medical record entries made by the Scribe were at my direction and personally dictated by me. I have reviewed the chart and agree that the record accurately reflects my personal performance of the history, physical exam, medical decision making, and the department course for this patient. I have also personally directed, reviewed, and agree with the discharge instructions and disposition. Disposition/Present on Arrival - Present on Arrival Any Indicators Present on Arrival: No History of DVT/PE: No History of Uncontrolled Diabetes: No Urinary Catheter: No History of Decub. Ulcer: No History Surgical Site Infection Following: None - Disposition Have Diagnosis and Disposition been Completed?: Yes Diagnosis: Chronic abdominal pain, Colitis Disposition: HOME/ ROUTINE Disposition Time: 12:00 Condition: GOOD Discharge Instructions (ExitCare): Acute Abdomen (Belly Pain), Adult (DC) Additional Instructions: ROHINI MARTINEZ JR, thank you for letting us take care of you today. The emergency medical care you received today was directed at your acute symptoms. If you were prescribed any medication, please fill it and take as directed. It may take several days for your symptoms to resolve. Return to the Emergency Department if your symptoms worsen, do not improve, or if you have any other problems. Please contact your doctor or call one of the physicians/clinics you have been referred to that are listed on the Patient Visit Information form that is included in your discharge packet. Bring any paperwork you were given at discharge with you along with any medications you are taking to your follow up visit. Our treatment cannot replace ongoing medical care by a primary care provider outside of the emergency department. Thank you for allowing the [facility] team to be part of your care today. Fill and take the antibiotic as prescribed. There was alcohol in your system. Refraining from alcohol may help your symptoms. Follow up with your primary doctor in 2-3 days for re-evaluation and further management. Prescriptions: Ciprofloxacin [Cipro] 500 mg PO BID #14 tab Ibuprofen [Motrin] 600 mg PO Q6 PRN #20 tab PRN Reason: Pain, Moderate (4-7) Referrals: Griselda Heard MD [Family Provider] - Follow up with primary Forms: [employer] (Yoruba)
--- NOTE | 2018-04-29 12:09 | CT ---
PROCEDURE: CT Abdomen and Pelvis with contrast HISTORY: diffuse abdominal pain COMPARISON: 04/07/2008 TECHNIQUE: Contrast dose: 100 mL Omnipaque 350 Radiation dose: Total exam DLP = 277 mGy-cm. This CT exam was performed using one or more of the following dose reduction techniques: Automated exposure control, adjustment of the mA and/or kV according to patient size, and/or use of iterative reconstruction technique. FINDINGS: LOWER THORAX: Unremarkable. LIVER: Fatty liver. No gross lesion or ductal dilatation. GALLBLADDER AND BILE DUCTS: Unremarkable. PANCREAS: Unremarkable. No gross lesion or ductal dilatation. SPLEEN: Unremarkable. ADRENALS: Unremarkable. No mass. KIDNEYS AND URETERS: The sub cm, tiny bilateral nonspecific renal hypodensities are renoted and grossly similar. There are tiny size precludes optimal characterisation. Benign etiology is favored. No hydronephrosis. No suspicious renal mass noted VASCULATURE: Unremarkable. No aortic aneurysm. BOWEL: As before there is incomplete distention of the rectosigmoid colon -the overall colonic wall thickness is prominent in appearance -can be seen with colitis -also can be accentuated without the colonic distension here. No interval progression suggested. No obstruction abscess collections or free air here seen. . There are scattered left diverticuli are present-no complicating diverticulitis suggested Sigmoid and rectosigmoid colon are redundant. APPENDIX: The appendix is elongated but otherwise not distended no periappendiceal inflammatory changes seen. The appendix projects superiorly and closer to the midline (current coronal series 601, image 42 -findings similar on the prior study PERITONEUM: Unremarkable. No free fluid. No free air. LYMPH NODES: Unremarkable. No enlarged lymph nodes. BLADDER: Unremarkable. REPRODUCTIVE: Prominent prostate with left posterolateral slightly hyper dense focal nodular prominence to it. For this urological consultation recommended BONES: No acute fracture. Anterior L4 spondylosis OTHER FINDINGS: None. IMPRESSION: The incomplete distention/ and mild mural prominence - rectosigmoid segment probably slightly decreased compared to the prior study -no progressive colitis suggested. Minimal mild colitis here possible. No obstruction, free air, abscess or surrounding pericolonic fat inflammatory changes suggested Redundant colon with few scattered diverticuli. No complicating diverticulitis Prominent prostate with left posterolateral slightly hyper dense focal nodular prominence to it. For this urological consultation recommended Fatty liver as before
[2018-04-29 13:08] VITALS: BP 130/78; PULSE 82; TEMP 98.3; O2SAT 98
--- NOTE | 2018-04-29 14:02 | CARD ---
APPROVED REPORT EKG Measurement Heart [id number] <Conclusion> Normal sinus rhythm Moderate voltage criteria for LVH, may be normal variant J-point elevations No change
== END 2018-04-29 13:15 | disposition home or self-care (01) ==
LOC: ED 09:23
DX: K52.9 Noninfective gastroenteritis and colitis, unspecified (principal); R10.9 Unspecified abdominal pain; I10 Essential (primary) hypertension; F17.210 Nicotine dependence, cigarettes, uncomplicated
CPT/HCPCS: 74177; 80053; 80320; 83690; 83735; 84484; 85025; 93005; 96374; 96375; 99283; J2405; J7030; Q9967

== ENCOUNTER 2018-05-04 10:10 | Emergency (ER) | payer MEDICAID ==
[2018-05-04 10:10] VITALS: BMI 23.3
[2018-05-04 10:40] VITALS: TEMP 98.5; O2SAT 97
--- NOTE | 2018-05-04 12:52 | ED PDOC ---
Arrival/HPI - General Chief Complaint: GI Problem Time Seen by Provider: 05/04/18 10:37 Historian: Patient - History of Present Illness Narrative History of Present Illness (Text): 05/04/18 12:48 Pt is a 43 yr old male well known to the ED for alcohol and substance abuse, whose PMH includes HTN and colitis, who presents with nausea and vomiting x 3 hrs after drinking heavily last night. Pt describes drinking water this morning resulting in vomiting but denies chest pain, sob, abdominal pain, back pain, fever, tremors, chills, diarrhea or any other complaints. Past Medical History - Provider Review Nursing Documentation Reviewed: Yes - Travel History Have you recently traveled outside [place] w/in the past 3 mons?: No - Past History Past History: No Previous - Infectious Disease Hx of Infectious Diseases: None - Tetanus Immunization Tetanus Immunization: Unknown - Past Medical History Past Medical History: No Previous - Cardiac Hx Cardiac Disorders: Yes Hx Hypertension: Yes - Pulmonary Hx Respiratory Disorders: No Other/Comment: light smoker - Neurological Hx Neurological Disorder: Yes Hx Dizziness: Yes Other/Comment: neuropathy - HEENT Hx HEENT Disorder: No - Renal Hx Renal Disorder: No - Endocrine/Metabolic Hx Endocrine Disorders: No - Hematological/Oncological Hx Blood Disorders: No - Integumentary Hx Dermatological Disorder: No - Musculoskeletal/Rheumatological Hx Falls: No - Gastrointestinal Other/Comment: Colitis - Genitourinary/Gynecological Hx Genitourinary Disorders: No - Psychiatric Hx Psychophysiologic Disorder: Yes (ETOH ABUSE-2-3 BOTTLES OF VODKA DAILY, COCAINE USE,SMOKES CIGARETES) Hx Anxiety: Yes Hx Substance Use: Yes (COCAINE USE) - Past Surgical History Past Surgical History: Non-Contributing - Surgical History Hx Musculoskeletal Surgery: Yes (R foot sx with rods/screws placed) Hx Orthopedic Surgery: Yes - Anesthesia Hx Anesthesia: Yes Hx Anesthesia Reactions: No Hx Malignant Hyperthermia: No - Suicidal Assessment Feels Threatened In Home Enviroment: No Family/Social History Family/Social History: Unknown Family HX Smoking Status: Current Some Days Smoker Hx Alcohol Use: Yes (ETOH ABUSE.DRINKS VODKA DAILY. LAST DRANK 2-3 BTLS OF VODKA YESTERDAY.) Hx Substance Use: Yes (COCAINE USE) Substance used: marijuana & cocaine Hx Substance Use Treatment: No Allergies/Home Meds Allergies/Adverse Reactions: Allergies No Known Allergies Allergy (Verified 04/29/18 09:30) Review of Systems - Review of Systems Systems not reviewed;Unavailable: Intoxicated Constitutional: Fatigue. absent: Fevers Eyes: Normal. absent: Vision Changes ENT: Normal. absent: Hearing Changes Respiratory: Normal. absent: SOB Cardiovascular: Normal. absent: Chest Pain Gastrointestinal: Normal, Abdominal Pain, Constipation, Nausea, Vomiting. absent: Stool Changes, Diarrhea, Appetite Changes Genitourinary Male: Normal. absent: Dysuria, Frequency, Hematuria, Urinary Output Changes Musculoskeletal: Normal. absent: Back Pain, Neck Pain Skin: Normal Neurological: Normal. absent: Headache, Dizziness Endocrine: Normal. absent: Diaphoresis Hemo/Lymphatic: Normal Psychiatric: Normal Physical Exam - Physical Exam Physical Exam Limitations: Intoxication Vital Signs Reviewed: Yes Vital Signs Temp Pulse Resp BP Pulse Ox 05/04/18 18:06 80 16 140/85 97 05/04/18 15:00 75 18 131/78 97 05/04/18 13:40 79 16 133/82 97 05/04/18 12:11 75 18 118/69 97 05/04/18 10:32 98.5 F 77 16 120/71 97 Temperature: Afebrile Blood Pressure: Normal Pulse: Regular Respiratory Rate: Normal Appearance: Positive for: Well-Appearing, Non-Toxic, Comfortable Pain Distress: Mild Mental Status: Positive for: Alert and Oriented X 3 - Systems Exam Head: Present: Atraumatic, Normocephalic Pupils: Present: PERRL Extroacular Muscles: Present: EOMI Conjunctiva: Present: Injected Mouth: Present: Moist Mucous Membranes Nose (External): Present: Atraumatic Neck: Present: Normal Range of Motion Respiratory/Chest: Present: Clear to Auscultation, Good Air Exchange. No: Respiratory Distress, Accessory Muscle Use, Wheezes, Decreased Breath Sounds Cardiovascular: Present: Regular Rate and Rhythm, Normal S1, S2. No: Murmurs Abdomen: Present: Tenderness (LLQ), Normal Bowel Sounds. No: Distention, Peritoneal Signs, Rebound, Guarding, McBurney's Point Tender, Rovsing's Sign Present Back: Present: Normal Inspection Upper Extremity: Present: Normal Inspection. No: Cyanosis, Edema Lower Extremity: Present: Normal Inspection. No: Edema Neurological: Present: GCS=15, CN II-XII Intact, Speech Normal Skin: Present: Warm, Dry, Normal Color. No: Rashes Psychiatric: Present: Alert, Oriented x 3, Normal Insight, Normal Concentration , Intoxicated Medical Decision Making ED Course and Treatment: 05/04/18 12:52 Impression Pt is a 43 yr old male well known to the ED for alcohol and substance abuse, whose PMH includes HTN and colitis, who presents with nausea and vomiting x 3 hrs after drinking heavily last night. On exam, abdomen is mildly tender over the LLQ with no referral, no rovsings, rebound or mcburneys, no cva tenderness Strong odor of alcohol detected on breath of pt CIWA-AR score of 4 Plan Labs UA drug and EtOH levels abdominal US assess and dispo Progress note 05/04/18 13:51 On US, no acute findings EtOH: pending 05/04/18 13:58 Labs still pending and pt remains sleeping comfortably and stable 05/04/18 16:01 Pt A&Ox3 c/o abdominal pain and nausea-->toradol and zofran stat EtOH 195 @13:30--->anticipated d/c if stable, 17:30 (+) for cocaine and benzos all other labs wnl Pt STABLE AND READY FOR D/C Zofran odt for home and advised to avoid alcohol and illicit drug use - Lab Interpretations Lab Results: 05/04/18 13:30 05/04/18 13:30 Lab Results 05/04/18 13:30: Alcohol, Quantitative 195 H 05/04/18 13:30: Urine Opiates Screen Negative, Urine Methadone Screen Negative, Ur Barbiturates Screen Negative, Ur Phencyclidine Scrn Negative, Ur Amphetamines Screen Negative, U Benzodiazepines Scrn Positive H, U Oth Cocaine Metabols Positive H, U Cannabinoids Screen Negative 05/04/18 13:30: Sodium 148, Potassium 3.6, Chloride 106, Carbon Dioxide 26, Anion Gap 20, BUN 16, Creatinine 0.8, Est GFR ( Amer) > 60, Est GFR (Non- Af Amer) > 60, Random Glucose 94, Calcium 9.0, Total Bilirubin 0.4, AST 60 H D, ALT 67 H, Alkaline Phosphatase 56, Total Protein 7.9, Albumin 4.7, Globulin 3.2 , Albumin/Globulin Ratio 1.5 05/04/18 13:30: Urine Color Yellow, Urine Appearance Clear, Urine pH 6.0, Ur Specific [place] >= 1.030, Urine Protein 30 H, Urine Glucose (UA) Negative, Urine Ketones Negative, Urine Blood Negative, Urine Nitrate Negative, Urine Bilirubin Negative, Urine Urobilinogen 0.2, Ur Leukocyte Esterase Negative, Urine RBC 0 - 2, Urine WBC Negative, Ur Epithelial Cells None, Urine Bacteria Neg, Hyaline Casts 0 - 2 05/04/18 13:30: WBC 4.5 D, RBC 4.26, Hgb 12.2 L, Hct 37.0 L, MCV 86.9, MCH 28.6 , MCHC 33.0, RDW 14.6 H, Plt Count 186, MPV 10.6, Gran % 66.2, Lymph % (Auto) 29.4, [place] % (Auto) 4.0, Eos % (Auto) 0.2 L, Baso % (Auto) 0.2, Gran # 2.94, Lymph # (Auto) 1.3, [place] # (Auto) 0.2, Eos # (Auto) 0.0, Baso # (Auto) 0.01 - RAD Interpretation Narrative RAD Interpretations (Text): 05/04/18 13:49 HISTORY: Left lower quadrant pain. History of colitis. COMPARISON: 04/29/2018 CT abdomen and pelvis. 06/21/2017 abdominal ultrasound. TECHNIQUE: Sonographic evaluation of the abdomen. FINDINGS: LIVER: Measures 13.9 cm. Patent portal vein. Portal venous flow: Hepatopetal. Unremarkable echogenicity of the liver parenchyma. No mass. No intrahepatic bile duct dilatation. GALLBLADDER: Unremarkable. No gallstones. COMMON BILE DUCT: Measures 1.6 mm. No stones. No dilatation. PANCREAS: Unremarkable as visualized. No mass. No ductal dilatation. RIGHT KIDNEY: Measures 5.2 x 10.3cm. Normal echogenicity. No calculus, mass, or hydronephrosis. LEFT KIDNEY: Measures 6.5 x 11.2cm. Normal echogenicity. No calculus, mass, or hydronephrosis. SPLEEN: Normal in size and contour. No mass. AORTA: No aneurysmal dilatation. IVC: Unremarkable. OTHER FINDINGS: None. IMPRESSION: No acute findings related to/accounting for the clinical presentation. No significant interval change compared to the prior examination(s). Radiology Orders: 05/04/18 12:01 ABDOMEN COMPLETE [US] Stat - EKG Interpretation Interpreted by ED Physician: Yes (NSR with rate of 81; no ST or T-wave abnormalities) - Medication Orders Current Medication Orders: Discontinued Medications Ketorolac Tromethamine (Toradol) 30 mg IM STAT STA Stop: 05/04/18 15:23 Last Admin: 05/04/18 15:57 Dose: 30 mg MAR Pain Assessment Document 05/04/18 15:57 ARNEL (Rec: 05/04/18 15:58 ARNEL [id number]) Pain Reassessment Is this a pain reassessment? Yes Presence of Pain Presence of Pain Yes Pain Scale Used Pain Scale Used Numeric Location Pain Location Body Site Abdomen Description Description Constant Intensity of Pain at present 7 IM Administration Charges Document 05/04/18 15:57 ARNEL (Rec: 05/04/18 15:58 ARNEL [id number]) Injection Site MAR Injection Site Right Deltoid Charges for Administration # of IM Administrations 1 Ondansetron HCl (Zofran Odt) 4 mg PO STAT STA Stop: 05/04/18 15:23 Last Admin: 05/04/18 15:57 Dose: 4 mg Disposition/Present on Arrival - Present on Arrival Any Indicators Present on Arrival: Yes History of DVT/PE: No History of Uncontrolled Diabetes: No Urinary Catheter: No History of Decub. Ulcer: No History Surgical Site Infection Following: None - Disposition Have Diagnosis and Disposition been Completed?: Yes Diagnosis: Alcohol abuse, Polysubstance abuse, Nausea and vomiting Disposition: HOME/ ROUTINE Disposition Time: 17:51 Patient Plan: Discharge Condition: STABLE Discharge Instructions (ExitCare): Alcohol Abuse and Alcoholism (DC), Polysubstance Abuse (DC) Additional Instructions: ROHINI MARTINEZ JR, thank you for letting us take care of you today. Your provider was Sonny Tejeda MD and DIONNE Boothe and you were treated for ABDOMINAL PAIN AND VOMITING DUE TO ALCOHOL AND DRUG ABUSE. The emergency medical care you received today was directed at your acute symptoms. If you were prescribed any medication, please fill it and take as directed. It may take several days for your symptoms to resolve. Return to the Emergency Department if your symptoms worsen, do not improve, or if you have any other problems. TAKE ZOFRAN FOR NAUSEA AND VOMITING, DRINK PLENTY OF FLUIDS AND SEE YOUR PRIMARY DOCTOR IN THE NEXT 2 DAYS Please contact your doctor or call one of the physicians/clinics you have been referred to that are listed on the Patient Visit Information form that is included in your discharge packet. Bring any paperwork you were given at discharge with you along with any medications you are taking to your follow up visit. Our treatment cannot replace ongoing medical care by a primary care provider outside of the emergency department. Thank you for allowing the [facility] team to be part of your care today. If you had an X-Ray or CT scan: A Radiologist will review the ED reading if any change in treatment is needed we will contact you. Prescriptions: Ondansetron ODT [Zofran ODT] 4 mg PO Q6 5 Days #20 odt Referrals: Griselda Heard MD [Primary Care Provider] - Follow up with primary Forms: [email or web address] (Jordanian)
--- NOTE | 2018-05-04 13:42 | US ---
HISTORY: Left lower quadrant pain. History of colitis. COMPARISON: 04/29/2018 CT abdomen and pelvis. 06/21/2017 abdominal ultrasound. TECHNIQUE: Sonographic evaluation of the abdomen. FINDINGS: LIVER: Measures 13.9 cm. Patent portal vein. Portal venous flow: Hepatopetal. Unremarkable echogenicity of the liver parenchyma. No mass. No intrahepatic bile duct dilatation. GALLBLADDER: Unremarkable. No gallstones. COMMON BILE DUCT: Measures 1.6 mm. No stones. No dilatation. PANCREAS: Unremarkable as visualized. No mass. No ductal dilatation. RIGHT KIDNEY: Measures 5.2 x 10.3cm. Normal echogenicity. No calculus, mass, or hydronephrosis. LEFT KIDNEY: Measures 6.5 x 11.2cm. Normal echogenicity. No calculus, mass, or hydronephrosis. SPLEEN: Normal in size and contour. No mass. AORTA: No aneurysmal dilatation. IVC: Unremarkable. OTHER FINDINGS: None. IMPRESSION: No acute findings related to/accounting for the clinical presentation. No significant interval change compared to the prior examination(s).
[2018-05-04 14:04] LABS: BASO # 0.01 K/mm3 (0.0-2.0); BASO % 0.2 % (0.0-3.0); EOS % 0.2 % (1.5-5.0); GRAN # 2.94 (1.4-6.5); GRAN % 66.2 % (50.0-68.0); HEMOGLOBIN 12.2 g/dL (14.0-18.0); LYMPH # 1.3 (1.2-3.4); LYMPH % 29.4 % (22.0-35.0); MEAN CELL VOLUME 86.9 fl (80.0-105.0); MEAN CORPUSCULAR HEMOGLOBIN 28.6 pg (25.0-35.0); MEAN PLATELET VOLUME 10.6 fl (7.0-11.0); MONO # 0.2 (0.1-0.6); RBC 4.26 10^6/uL (3.5-6.1); RED CELL DISTRIBUTION WIDTH 14.6 % (11.5-14.5); WHITE BLOOD COUNT 4.5 10^3/ul (4.5-11.0)
[2018-05-04 14:05] LABS: URINE BILIRUBIN NEGATIVE (NEGATIVE); URINE BLOOD NEGATIVE (NEGATIVE); URINE GLUCOSE (UA) NEGATIVE (NEGATIVE); URINE LEUKOCYTE ESTERASE NEGATIVE Leu/uL (NEGATIVE); URINE PROTEIN 30 mg/dL (<30 mg/dL); URINE UROBILINOGEN 0.2 E.U./dL (<1 E.U./dL)
[2018-05-04 14:06] LABS: URINE APPEARANCE CLEAR (CLEAR); URINE COLOR YELLOW (YELLOW)
[2018-05-04 14:10] LABS: URINE BACTERIA NEG (NEG); URINE HYALINE CAST 0 - 2 /hpf; URINE RBC 0 - 2 /hpf (0-2); URINE WBC NEGATIVE /hpf (0-6)
[2018-05-04 14:34] LABS: ALB/GLOB RATIO 1.5 (1.1-1.8); ALBUMIN 4.7 g/dL (3.0-4.8); ALT/SGPT 67 U/L (7-56); AST/SGOT 60 U/L (17-59); BLOOD UREA NITROGEN 16 mg/dL (7-21); GFR AFRICAN-AMERICAN > 60; GFR NON-AFRICAN AMERICAN > 60
[2018-05-04 14:44] LABS: BARBITURATES, UR NEGATIVE (NEGATIVE); BENZODIAZEPINES, UR POSITIVE (NEGATIVE); OPIATES, UR NEGATIVE (NEGATIVE); PHENCYCLIDINE, UR NEGATIVE (NEGATIVE)
[2018-05-04 18:07] VITALS: BP 140/85; PULSE 80; RESP 16
--- NOTE | 2018-05-05 08:03 | CARD ---
APPROVED REPORT EKG Measurement Heart [id number] IN 170P63 [id number] <Conclusion> Normal sinus rhythm LVH J-point elevations No change
== END 2018-05-04 18:06 | disposition home or self-care (01) ==
LOC: ED 10:10
DX: F10.10 Alcohol abuse, uncomplicated (principal); R11.2 Nausea with vomiting, unspecified; F19.10 Other psychoactive substance abuse, uncomplicated; I10 Essential (primary) hypertension
CPT/HCPCS: 76700; 80053; 80320; 80324; 80345; 80346; 80349; 80353; 80358; 80361; 81001; 83992; 85025; 93005; 96372; 99283; J1885

== ENCOUNTER 2018-05-04 18:54 | Inpatient (IN) | payer MEDICAID ==
[2018-05-04 19:20] VITALS: BMI 21.9
[2018-05-04] MEDS ORDERED: Sodium Chloride 0.9% 1,000 ML IV SCH (19:45)
[2018-05-04 20:03] LABS: BASO # 0.02 K/mm3 (0.0-2.0); BASO % 0.5 % (0.0-3.0); EOS % 0.3 % (1.5-5.0); GRAN # 1.83 (1.4-6.5); GRAN % 47.5 % (50.0-68.0); HEMOGLOBIN 11.8 g/dL (14.0-18.0); LYMPH # 1.6 (1.2-3.4); LYMPH % 42.3 % (22.0-35.0); MEAN CELL VOLUME 86.6 fl (80.0-105.0); MEAN CORPUSCULAR HEMOGLOBIN 29.3 pg (25.0-35.0); MEAN CORPUSCULAR HGB CONC 33.8 g/dl (31.0-37.0); MEAN PLATELET VOLUME 10.7 fl (7.0-11.0); MONO # 0.4 (0.1-0.6); MONO % 9.4 % (1.0-6.0); RBC 4.03 10^6/uL (3.5-6.1); RED CELL DISTRIBUTION WIDTH 14.5 % (11.5-14.5); WHITE BLOOD COUNT 3.9 10^3/ul (4.5-11.0)
--- NOTE | 2018-05-04 20:12 | ED PDOC ---
Arrival/HPI - General Historian: Patient - History of Present Illness Time/Duration: < week Symptom Onset: Sudden Activities at Onset: Rest Context: Home - General Chief Complaint: Abdominal Pain Time Seen by Provider: 05/04/18 18:55 - History of Present Illness Narrative History of Present Illness (Text): 05/04/18 20:05 This is a 43 year old male with PMH of alcohol and substance abuse, depression, and colitis presenting to the ED for abdominal pain, and vomiting x3. Patient was seen in the ED earlier today for similar complaints after heavy drinking last night. Abdominal US and labs were inconsequential at that time. Patient tested positive for cocaine and benzos earlier today. Patient is well known to the the ED. Abdominal CT done on 04/29/18 showed minimal mild colitis. Patient also reports chest discomfort and nausea. Patient denies headaches, sick contacts at home, recent travel, fevers, and chills. 05/04/18 23:35 (Arlet Spears) Past Medical History - Provider Review Nursing Documentation Reviewed: Yes - Past History Past History: No Previous - Infectious Disease Hx of Infectious Diseases: None - Tetanus Immunization Tetanus Immunization: Unknown - Past Medical History Past Medical History: No Previous - Cardiac Hx Cardiac Disorders: Yes Hx Hypertension: Yes - Pulmonary Hx Respiratory Disorders: No Other/Comment: light smoker - Neurological Hx Neurological Disorder: Yes Hx Dizziness: Yes Other/Comment: neuropathy - HEENT Hx HEENT Disorder: No - Renal Hx Renal Disorder: No - Endocrine/Metabolic Hx Endocrine Disorders: No - Hematological/Oncological Hx Blood Disorders: No - Integumentary Hx Dermatological Disorder: No - Musculoskeletal/Rheumatological Hx Falls: No - Gastrointestinal Other/Comment: Colitis - Genitourinary/Gynecological Hx Genitourinary Disorders: No - Psychiatric Hx Psychophysiologic Disorder: Yes (ETOH ABUSE-2-3 BOTTLES OF VODKA DAILY, COCAINE USE,SMOKES CIGARETES) Hx Anxiety: Yes Hx Substance Use: Yes (COCAINE USE) - Past Surgical History Past Surgical History: Non-Contributing - Surgical History Hx Musculoskeletal Surgery: Yes (R foot sx with rods/screws placed) Hx Orthopedic Surgery: Yes - Anesthesia Hx Anesthesia: Yes Hx Anesthesia Reactions: No Hx Malignant Hyperthermia: No - Suicidal Assessment Feels Threatened In Home Enviroment: No Family/Social History - Physician Review Nursing Documentation Reviewed: Yes Family/Social History: Unknown Family HX Smoking Status: Current Some Days Smoker Hx Alcohol Use: Yes (ETOH ABUSE.DRINKS VODKA DAILY. LAST DRANK 2-3 BTLS OF VODKA YESTERDAY.) Hx Substance Use: Yes (COCAINE USE) Substance used: marijuana & cocaine Hx Substance Use Treatment: No Allergies/Home Meds Allergies/Adverse Reactions: Allergies No Known Allergies Allergy (Verified 04/29/18 09:30) Review of Systems - Physician Review All systems were reviewed & negative as marked: Yes - Review of Systems Constitutional: Normal. absent: Fevers Eyes: Normal ENT: Normal Respiratory: Normal Cardiovascular: Chest Pain. absent: Palpitations, Syncope Gastrointestinal: Abdominal Pain, Nausea, Vomiting Musculoskeletal: Normal Skin: Normal Neurological: Normal. absent: Headache Endocrine: Normal Hemo/Lymphatic: Normal Physical Exam Vital Signs Reviewed: Yes Temperature: Afebrile Blood Pressure: Normal Pulse: Regular Respiratory Rate: Normal Appearance: Positive for: Well-Appearing, Non-Toxic, Comfortable Pain Distress: None Mental Status: Positive for: Alert and Oriented X 3 - Systems Exam Head: Present: Atraumatic, Normocephalic Pupils: Present: PERRL Extroacular Muscles: Present: EOMI Conjunctiva: Present: Normal Mouth: Present: Moist Mucous Membranes Neck: Present: Normal Range of Motion Respiratory/Chest: Present: Clear to Auscultation, Good Air Exchange. No: Respiratory Distress, Accessory Muscle Use Cardiovascular: Present: Regular Rate and Rhythm, Normal S1, S2. No: Murmurs Abdomen: Present: Tenderness, Normal Bowel Sounds. No: Distention, Peritoneal Signs Back: Present: Normal Inspection Upper Extremity: Present: Normal Inspection. No: Cyanosis, Edema Lower Extremity: Present: Normal Inspection. No: Edema Neurological: Present: Speech Normal, Motor Func Grossly Intact, Normal Sensory Function Skin: Present: Warm, Dry, Normal Color. No: Rashes Psychiatric: Present: Alert, Oriented x 3, Normal Insight, Normal Concentration Vital Signs Temp Pulse Resp BP Pulse Ox 05/04/18 23:40 84 18 121/74 100 05/04/18 19:26 98.4 F 86 18 140/89 98 Medical Decision Making ED Course and Treatment: Impression: Pt seen and evaluated with durable medical equipment repairer. Aware and agree with HPI, clinical findings, plan, and management. Pt, whose past medical history includes alcohol abuse, substance abuse, depression, and colitis, presented for abdominal pain, vomiting, chest discomfort and nausea. Plan: -- EKG -- Labs -- IV fluids -- Zofran -- Reglan -- Protonix -- Reassess and disposition 05/05/18 04:[address] Yong Lorenzo, who is aware and agrees with plan. Accepts pt in to hospitalist service. Pt will go to [facility] observation for abdominal pain. [employer] notified. (Salo Lamas) 05/04/18 20:13 Impression: This is a 43 year old male with PMH of colitis and substance abuse presenting to the ER for abdominal pain and vomiting after heavy drinking last night. Plan: -CBC, CMP -EKG -Zofran -Protonix Progress: 05/04/18 20:26 Patient continuing to complain of nausea, will give zofran 4mg. 05/04/18 22:16 Patient given reglan for abdominal pain. 05/04/18 22:17 EKG: rate of 81, Pr 162ms, QRS 100ms. normal sinus rhythm, voltage criteria for LVH. 05/05/18 01:12 Abdominal Xray is normal. 05/05/18 04:34 Patient continuing to complain of abdominal pain. Will admit for observation. (Arlet Spears) - Lab Interpretations Lab Results: 05/04/18 19:54 05/04/18 19:54 Lab Results 05/04/18 19:54: Sodium 146, Potassium 3.5 L, Chloride 104, Carbon Dioxide 20 L, Anion Gap 25 H, BUN 17, Creatinine 0.8, Est GFR ( Amer) > 60, Est GFR ( Non-Af Amer) > 60, Random Glucose 93, Calcium 9.2, Total Bilirubin 0.4, AST 55, ALT 55, Alkaline Phosphatase 51, Total Protein 7.8, Albumin 4.8, Globulin 3.0, Albumin/Globulin Ratio 1.6 05/04/18 19:54: WBC 3.9 L, RBC 4.03, Hgb 11.8 L, Hct 34.9 L, MCV 86.6, MCH 29.3 , MCHC 33.8, RDW 14.5, Plt Count 179, MPV 10.7, Gran % 47.5 L, Lymph % (Auto) 42.3 H, [place] % (Auto) 9.4 H, Eos % (Auto) 0.3 L, Baso % (Auto) 0.5, Gran # 1.83 , Lymph # (Auto) 1.6, [place] # (Auto) 0.4, Eos # (Auto) 0.0, Baso # (Auto) 0.02 - RAD Interpretation Radiology Orders: 05/04/18 22:20 ABD 2 VIEWS (FLAT/UP OR DECUB) [RAD] Stat - Medication Orders Current Medication Orders: Sodium Chloride (Sodium Chloride 0.9%) 1,000 mls @ 100 mls/hr IV .Q10H ALEXANDRA Last Admin: 05/04/18 20:06 Dose: 100 mls/hr eMAR Start Stop Document 05/04/18 20:06 AD (Rec: 05/04/18 20:06 AD [id number]) Intravenous Solution Start Date 05/04/18 Start Time 20:06 Morphine Sulfate (Morphine) 2 mg IVP STAT STA Stop: 05/05/18 04:33 Discontinued Medications Famotidine (Pepcid 20mg/50ml Premix) 20 mg in 50 mls @ 100 mls/hr IVPB STAT STA Stop: 05/04/18 22:44 Last Admin: 05/04/18 22:31 Dose: 100 mls/hr eMAR Start Stop Document 05/04/18 22:31 AD (Rec: 05/04/18 22:32 AD [id number]) Intravenous Solution Start Date 05/04/18 Start Time 22:32 Metoclopramide HCl (Reglan) 10 mg IVP STAT STA Stop: 05/04/18 21:28 Last Admin: 05/04/18 21:45 Dose: 10 mg IVP Administration Document 05/04/18 21:45 AD (Rec: 05/04/18 21:45 AD [id number]) Charges for Administration # of IVP Administrations 1 Ondansetron HCl (Zofran Tab) 4 mg PO STAT STA Stop: 05/04/18 19:27 Last Admin: 05/04/18 20:06 Dose: 4 mg Ondansetron HCl (Zofran Tab) 4 mg PO STAT STA Stop: 05/04/18 20:26 Last Admin: 05/04/18 20:25 Dose: Ondansetron HCl (Zofran Inj) 4 mg IVP STAT STA Stop: 05/04/18 20:43 Last Admin: 05/04/18 20:45 Dose: 4 mg IVP Administration Document 05/04/18 20:45 AD (Rec: 05/04/18 21:02 AD [id number]) Charges for Administration # of IVP Administrations 1 Ondansetron HCl (Zofran Inj) 4 mg IVP STAT STA Stop: 05/05/18 04:01 Last Admin: 05/05/18 04:05 Dose: 4 mg IVP Administration Document 05/05/18 04:05 AD (Rec: 05/05/18 04:05 AD [id number]) Charges for Administration # of IVP Administrations 1 Pantoprazole Sodium (Protonix Inj) 40 mg IVP ONCE STA Stop: 05/04/18 19:32 Last Admin: 05/04/18 20:06 Dose: 40 mg IVP Administration Document 05/04/18 20:06 AD (Rec: 05/04/18 20:06 AD [id number]) Charges for Administration # of IVP Administrations 1 Sucralfate (Carafate Oral Susp) 1 gm PO STAT STA Stop: 05/05/18 04:27 - PA / SONOSCOPE OPERATOR / Resident Statement MD/DO has reviewed & agrees with the documentation as recorded. MD/DO has examined the patient and agrees with the treatment plan. Disposition/Present on Arrival - Present on Arrival Any Indicators Present on Arrival: No History of DVT/PE: No History of Uncontrolled Diabetes: No Urinary Catheter: No History of Decub. Ulcer: No History Surgical Site Infection Following: None - Disposition Have Diagnosis and Disposition been Completed?: Yes Disposition Time: 04:45 - Disposition Diagnosis: Abdominal pain Disposition: HOSPITALIZED Patient Problems: Current Active Problems Problem Status Onset Abdominal pain Acute Condition: FAIR Referrals: Griselda Heard MD [Primary Care Provider] - Follow up with primary Forms: [employer] (Danish)
[2018-05-04 20:15] LABS: ALB/GLOB RATIO 1.6 (1.1-1.8); ALBUMIN 4.8 g/dL (3.0-4.8); ALT/SGPT 55 U/L (7-56); AST/SGOT 55 U/L (17-59); BLOOD UREA NITROGEN 17 mg/dL (7-21); CALCIUM 9.2 mg/dL (8.4-10.5); GFR AFRICAN-AMERICAN > 60; GFR NON-AFRICAN AMERICAN > 60
[2018-05-04] MEDS ORDERED: Famotidine 20mg/50ml 20 MG/50 ML BAG IVPB STA (22:15)
[2018-05-05] MEDS ORDERED: Sucralfate 1 gm/10 ml Oral Susp UD PO STA (04:26)
[2018-05-05] MEDS ORDERED: Morphine 2 mg/ml ISec IVP STA (04:32)
[2018-05-05] MEDS ORDERED: Multivitamin (MVI) 10 ML, Thiamine 100 MG, Folic Acid 1 MG in Dextrose 5% In Water 1,00... IV ONE (05:09)
[2018-05-05] MEDS: Sodium Chloride 0.9% 1,000 ML IV SCH ×2 (05:43→23:08)
--- NOTE | 2018-05-05 05:43 | CP.PCM.HP ---
<Reji Charles - Last Filed: 05/05/18 06:29> History of Present Illness - History of Present Illness History of Present Illness: Reji Charles, PGY-1 History and Physical for Hospitalist Service CC: Abdominal pain HPI: Mr. Craig is a 43 year old Male who presented to the ED with L sided abdominal pain and intractable vomiting since Saturday morning. His abdominal pain radiates to his L chest and lower neck when he retches. The vomit is nonbloody and nonbilious per the patient, but was watery and full of mucus. Patient rates the pain as 7/10 currently, and nothing has made the pain better or worse. Patient describes bouts of diarrhea associated with the vomiting, which he describes as loose but nonbloody as well. Patient admits to drinking "too much" liquor on Saturday evening and was unable to give me an exact quantity. Patient's last ETOH was Saturday night. Patient also admits to cocaine use, the last being on Saturday. Patient complains of shakes, dry mouth, weakness, mild shortness of breath, and a headache but denies palpitations, cough, sick contacts, and weight changes. In ED, patient was given pain and nausea medication. ROS is negative except as described above. PMHx: Anxiety, HTN, colitis and depression PSHx: R ankle NKDA Social: ETOH , cigarettes since age 12, 1/2 pack a day, cocaine on occasion Family Hx: negative for heart disease and cancer Medications: Paxil 10, Amlodipine 5, (Librium only when in hospital for ETOH withdrawal) Present on Admission - Present on Admission Any Indicators Present on Admission: No Review of Systems - Constitutional Constitutional: Fatigue, Headache, Weakness. absent: Chills, Fever, Night Sweats, Weight Loss - EENT Eyes: absent: Blurred Vision, Change in Vision Nose/Mouth/Throat: Dry Mouth. absent: Nasal Discharge, Nose Pain - Gastrointestinal Gastrointestinal: Abdominal Pain, Diarrhea, Loose Stools. absent: Belching, Excessive Flatus, Hematemesis, Hematochezia Past Patient History - Infectious Disease Hx of Infectious Diseases: None - Tetanus Immunizations Tetanus Immunization: Unknown - Past Medical History & Family History Past Medical History?: Yes - Past Social History Smoking Status: Current Some Days Smoker - CARDIAC Hx Cardiac Disorders: Yes Hx Hypertension: Yes - PULMONARY Hx Respiratory Disorders: No Other/Comment: light smoker - NEUROLOGICAL Hx Neurological Disorder: Yes Hx Dizziness: Yes Other/Comment: neuropathy - HEENT Hx HEENT Problems: No - RENAL Hx Chronic Kidney Disease: No - ENDOCRINE/METABOLIC Hx Endocrine Disorders: No - HEMATOLOGICAL/ONCOLOGICAL Hx Blood Disorders: No - INTEGUMENTARY Hx Dermatological Problems: No - MUSCULOSKELETAL/RHEUMATOLOGICAL Hx Falls: No - GASTROINTESTINAL Other/Comment: Colitis - GENITOURINARY/GYNECOLOGICAL Hx Genitourinary Disorders: No - PSYCHIATRIC Hx Psychophysiologic Disorder: Yes (ETOH ABUSE-2-3 BOTTLES OF VODKA DAILY, COCAINE USE,SMOKES CIGARETES) Hx Anxiety: Yes Hx Substance Use: Yes (COCAINE USE) - SURGICAL HISTORY Hx Musculoskeletal Surgery: Yes (R foot sx with rods/screws placed) Hx Orthopedic Surgery: Yes - ANESTHESIA Hx Anesthesia: Yes Hx Anesthesia Reactions: No Hx Malignant Hyperthermia: No Meds Home Medications: Home Medication List Medication Instructions Recorded Confirmed Type amLODIPine [Norvasc] 5 mg PO DAILY tab 05/07/18 Rx Allergies/Adverse Reactions: Allergies Allergy/AdvReac Type Severity Reaction Status Date / Time No Known Allergies Allergy Verified 05/05/18 11:54 Physical Exam - Constitutional Appears: Agitated - Head Exam Head Exam: ATRAUMATIC, NORMAL INSPECTION, NORMOCEPHALIC - Eye Exam Eye Exam: EOMI, Normal appearance, PERRL, Scleral icterus Pupil Exam: NORMAL ACCOMODATION, PERRL Additional comments: Mild scleral icterus - ENT Exam ENT Exam: Mucous Membranes Dry - Neck Exam Neck exam: Positive for: Normal Inspection. Negative for: Tenderness - Respiratory Exam Respiratory Exam: Clear to Auscultation Bilateral, NORMAL BREATHING PATTERN - Cardiovascular Exam Cardiovascular Exam: REGULAR RHYTHM, +S1, +S2 - GI/Abdominal Exam GI & Abdominal Exam: Guarding, Hyperactive Bowel Sounds, Normal Bowel Sounds, Tenderness - Neurological Exam Neurological exam: Alert, CN II-XII Intact, Oriented x3 Results - Vital Signs Recent Vital Signs: Last Vital Signs Temp 98.4 F 05/04/18 19:26 Pulse 87 05/05/18 03:00 Resp 18 05/05/18 03:00 BP 122/79 05/05/18 03:00 Pulse Ox 100 05/05/18 03:00 - Labs Result Diagrams: 05/04/18 19:54 05/04/18 19:54 Labs: Laboratory Results - last 24 hr 05/05/18 05:00 Alcohol, Quantitative < 10 Assessment & Plan - Assessment and Plan (Free Text) Assessment: Mr Craig is a 43 year old Male who presented to the ED with abdominal pain and vomiting since yesterday morning. Patient is admitted for constant pain refractory to pain and nausea medication in the ED. Abdominal Pain 2/2 substance abuse (ETOH and cocaine) vs pancreatitis - last consumption of ETOH and cocaine was Saturday evening - f/u LDH and Amylase and Lipase to r/o pancreatitis- will consider Abdominal CT pending results of the lipase and patient's pain control - Abd XR neg - NS @ 125 cc/hr - EKG NSR 81 bpm - Liquid diet -advance as tolerated Anion Gap Ketoacidosis 2/2 Alcohol Consumption vs dehydration - patient has been admitted for ETOH binge and withdrawals in the past, for which patient receives Librium while in hospital in the past - bicarb 20, anion gap of 25 likely secondary to contraction - banana bag ordered (Thiamine, multivitamin, Folate) - CIWA protocol initiated as well as fall and seizure precautions - Fall and seizure precautions placed, along with VS q4 - blood ETOH < 10 - Ativan 2 q4 prn - f/u UA and UDS HTN: continue Amlodipine 5 as per home med Anxiety: continue Paxil 10 as per home med Prophylaxis SCD Lovenox 40 Protonix 40 Patient seen, case reviewed and plan agreed upon with Dr. Yong Charles, PGY-1 <Mumtaz Lorenzo N - Last Filed: 05/07/18 22:45> Results - Vital Signs Recent Vital Signs: Last Vital Signs Temp 98.4 F 05/07/18 06:00 Pulse 98 H 05/07/18 10:50 Resp 18 05/07/18 06:00 BP 125/90 05/07/18 10:50 Pulse Ox 100 05/07/18 06:00 - Labs Result Diagrams: 05/07/18 06:30 05/07/18 06:30 Labs: Laboratory Results - last 24 hr 05/07/18 05/07/18 06:30 06:30 WBC 4.1 L D RBC 4.06 Hgb 11.7 L Hct 35.3 L MCV 86.9 MCH 28.8 MCHC 33.1 RDW 13.8 Plt Count 158 MPV 11.1 H Gran % 45.8 L Lymph % (Auto) 40.2 H [place] % (Auto) 12.8 H Eos % (Auto) 1.0 L Baso % (Auto) 0.2 Gran # 1.85 Lymph # (Auto) 1.6 [place] # (Auto) 0.5 Eos # (Auto) 0.0 Baso # (Auto) 0.01 Sodium 140 Potassium 3.9 Chloride 102 Carbon Dioxide 29 Anion Gap 13 BUN 11 Creatinine 0.8 Est GFR ( Amer) > 60 Est GFR (Non-Af Amer) > 60 Random Glucose 100 Calcium 9.2 Phosphorus 3.7 Magnesium 1.6 L Total Bilirubin 0.4 AST 39 ALT 42 Alkaline Phosphatase 42 Total Protein 6.8 Albumin 4.0 Globulin 2.7 Albumin/Globulin Ratio 1.5
[2018-05-05 06:34] LABS: BARBITURATES, UR NEGATIVE (NEGATIVE)
[2018-05-05 06:57] LABS: BENZODIAZEPINES, UR POSITIVE (NEGATIVE); OPIATES, UR POSITIVE (NEGATIVE); PHENCYCLIDINE, UR NEGATIVE (NEGATIVE)
[2018-05-05] MEDS: Pantoprazole 20 mg EC Tab PO SCH (07:02)
[2018-05-05 08:18] LABS: BASO # 0.01 K/mm3 (0.0-2.0); BASO % 0.2 % (0.0-3.0); EOS % 0.2 % (1.5-5.0); GRAN # 2.54 (1.4-6.5); GRAN % 56.3 % (50.0-68.0); HEMOGLOBIN 10.9 g/dL (14.0-18.0); LYMPH # 1.5 (1.2-3.4); LYMPH % 33.8 % (22.0-35.0); MEAN CORPUSCULAR HEMOGLOBIN 28.4 pg (25.0-35.0); MEAN CORPUSCULAR HGB CONC 32.6 g/dl (31.0-37.0); MEAN PLATELET VOLUME 10.7 fl (7.0-11.0); MONO # 0.4 (0.1-0.6); MONO % 9.5 % (1.0-6.0); RBC 3.84 10^6/uL (3.5-6.1); RED CELL DISTRIBUTION WIDTH 14.4 % (11.5-14.5); WHITE BLOOD COUNT 4.5 10^3/ul (4.5-11.0)
--- NOTE | 2018-05-05 08:31 | CARD ---
APPROVED REPORT EKG Measurement Heart [id number] CT [id number] <Conclusion> Normal sinus rhythm Moderate voltage criteria for LVH, may be normal variant J-point elevations No change
[2018-05-05 08:47] LABS: ALB/GLOB RATIO 1.5 (1.1-1.8); ALBUMIN 4.4 g/dL (3.0-4.8); ALT/SGPT 55 U/L (7-56); AMYLASE 72 U/L (35-125); AST/SGOT 47 U/L (17-59); BLOOD UREA NITROGEN 12 mg/dL (7-21); CALCIUM 8.6 mg/dL (8.4-10.5); GFR AFRICAN-AMERICAN > 60; GFR NON-AFRICAN AMERICAN > 60; LIPASE 64 U/L (23-300)
[2018-05-05] MEDS ORDERED: Magnesium Sulfate 1 gm in D5W 1 GM/100 ML BAG IVPB ONE (09:20)
--- NOTE | 2018-05-05 10:25 | RAD ---
HISTORY: abd pain COMPARISON: No prior. FINDINGS: BOWEL: Normal. No obstruction. No evidence of free intraperitoneal air seen under the diaphragmatic surfaces BONES: Normal. OTHER FINDINGS: None. IMPRESSION: Nonobstructive/nonspecific bowel gas pattern. No free air identified.
[2018-05-05] MEDS: Multivitamin With Minerals Tab PO SCH (11:16)
[2018-05-05] MEDS: Enoxaparin 40 mg Syringe SC SCH (12:35)
--- NOTE | 2018-05-05 14:50 | CP.PCM.CON ---
<Linwood Dan - Last Filed: 05/05/18 14:59> History of Present Illness - History of Present Illness History of Present Illness: PGY6 GI Fellow Consult Note Patient is a 43yo male with PMHx significant for recurrent episodes of colitis, polysubstance abuse (EtOH, cocaine, marijuana), HTN who presented to the ED with abdominal pain, nausea and vomiting. The patient has had multiple admissions over the past month for the same. He again admits to heavy EtOH and cocaine use prior to arrival despite extensive counseling and education on the ill effects of these substances on his body. He again developed LLQ abdominal pain, nausea and vomiting following this heavy intake and came to the ED for evaluation. He has not followed up to have outpatient stress test which has also been recommended previously and admits that he is aware his cocaine use can lead to cardiac issues, including . Currently, he is resting in bed without issue presently. 12 system ROS performed and negative except where stated PMHx: See HPI PSHx: right ankle ORIF FHx: Discussed with patient and he denies Social: Polysubstance abuse - EtOH, cocaine, marijuana, +tobacco use Endo: No prior endoscopic evaluations Past Patient History - Infectious Disease Hx of Infectious Diseases: None - Tetanus Immunizations Tetanus Immunization: Unknown - Past Medical History & Family History Past Medical History?: Yes - Past Social History Smoking Status: Current Some Days Smoker - CARDIAC Hx Hypertension: Yes - PULMONARY Hx Respiratory Disorders: No Other/Comment: light smoker - NEUROLOGICAL Hx Neurological Disorder: Yes Hx Dizziness: Yes Other/Comment: neuropathy - HEENT Hx HEENT Problems: No - RENAL Hx Chronic Kidney Disease: No - ENDOCRINE/METABOLIC Hx Endocrine Disorders: No - HEMATOLOGICAL/ONCOLOGICAL Hx Blood Disorders: No - INTEGUMENTARY Hx Dermatological Problems: No - MUSCULOSKELETAL/RHEUMATOLOGICAL Hx Falls: No - GASTROINTESTINAL Other/Comment: Colitis - GENITOURINARY/GYNECOLOGICAL Hx Genitourinary Disorders: No - PSYCHIATRIC Hx Substance Use: Yes (COCAINE/MARIJUANA LAST SNIFFED SATURDAY EVENING) - SURGICAL HISTORY Hx Musculoskeletal Surgery: Yes (R foot sx with rods/screws placed) Hx Orthopedic Surgery: Yes - ANESTHESIA Hx Anesthesia: Yes Hx Anesthesia Reactions: No Hx Malignant Hyperthermia: No Meds Allergies/Adverse Reactions: Allergies Allergy/AdvReac Type Severity Reaction Status Date / Time No Known Allergies Allergy Verified 05/05/18 11:54 - Medications Medications: Current Medications Amlodipine Besylate (Norvasc) 5 mg PO DAILY [facility] Last Admin: 05/05/18 11:16 Dose: 5 mg Enoxaparin Sodium (Lovenox) 40 mg SC DAILY [facility] PRN Reason: Protocol Last Admin: 05/05/18 12:35 Dose: 40 mg Folic Acid (Folic Acid) 1 mg PO DAILY [facility] Last Admin: 05/05/18 11:17 Dose: 1 mg Gemfibrozil (Lopid) 600 mg PO BID [facility] Last Admin: 05/05/18 11:16 Dose: 600 mg Sodium Chloride (Sodium Chloride 0.9%) 1,000 mls @ 125 mls/hr IV .Q8H [facility] Last Admin: 05/05/18 05:43 Dose: 125 mls/hr Potassium Chloride (Potassium Chloride 10 Meq/100 Ml) 10 meq in 100 mls @ 50 mls/hr IVPB Q2H [facility] Stop: 05/05/18 17:29 Last Admin: 05/05/18 14:04 Dose: 50 mls/hr Lorazepam (Ativan) 2 mg IVP Q4H PRN; Protocol PRN Reason: Symptoms of alcohol withdrawl Last Admin: 05/05/18 11:15 Dose: 2 mg Multivitamins/Minerals (Therapeutic-M Tab) 1 tab PO DAILY [facility] Last Admin: 05/05/18 11:16 Dose: 1 tab Ondansetron HCl (Zofran Inj) 4 mg IVP Q6H PRN PRN Reason: Nausea/Vomiting Pantoprazole Sodium (Protonix Ec Tab) 20 mg PO 0600 [facility] Last Admin: 05/05/18 07:02 Dose: 20 mg Paroxetine HCl (Paxil) 10 mg PO DAILY [facility] Last Admin: 05/05/18 11:16 Dose: 10 mg Thiamine HCl (Vitamin B1 Tab) 100 mg PO DAILY [facility] Last Admin: 05/05/18 11:16 Dose: 100 mg Physical Exam - Constitutional Appears: Non-toxic, No Acute Distress - Eye Exam Eye Exam: EOMI, PERRL - ENT Exam ENT Exam: Mucous Membranes Moist - Respiratory Exam Respiratory Exam: Clear to Auscultation Bilateral. absent: Rales, Rhonchi, Wheezes - Cardiovascular Exam Cardiovascular Exam: RRR, +S1, +S2 - GI/Abdominal Exam GI & Abdominal Exam: Normal Bowel Sounds, Soft. absent: Distended, Firm, Guarding, Organomegaly, Rigid, Tenderness - Extremities Exam Extremities exam: Positive for: normal inspection. Negative for: pedal edema - Neurological Exam Neurological exam: Alert, Oriented x3 - Psychiatric Exam Psychiatric exam: Normal Affect, Normal Mood - Skin Skin Exam: Dry, Warm Results - Vital Signs Recent Vital Signs: Last Vital Signs Temp 98.5 F 05/05/18 12:20 Pulse 76 05/05/18 12:20 Resp 18 05/05/18 12:20 BP 140/98 H 05/05/18 12:20 Pulse Ox 99 05/05/18 12:00 - Labs Result Diagrams: 05/05/18 07:35 05/05/18 07:35 Labs: Laboratory Results - last 24 hr 05/05/18 05/05/18 05/05/18 05:00 05:45 07:35 WBC 4.5 RBC 3.84 Hgb 10.9 L Hct 33.4 L MCV 87.0 MCH 28.4 MCHC 32.6 RDW 14.4 Plt Count 153 MPV 10.7 Gran % 56.3 Lymph % (Auto) 33.8 [place] % (Auto) 9.5 H Eos % (Auto) 0.2 L Baso % (Auto) 0.2 Gran # 2.54 Lymph # (Auto) 1.5 [place] # (Auto) 0.4 Eos # (Auto) 0.0 Baso # (Auto) 0.01 Sodium Potassium Chloride Carbon Dioxide Anion Gap BUN Creatinine Est GFR ( Amer) Est GFR (Non-Af Amer) Random Glucose Calcium Phosphorus Magnesium Total Bilirubin AST ALT Alkaline Phosphatase Lactate Dehydrogenase Total Protein Albumin Globulin Albumin/Globulin Ratio Amylase Lipase Urine Opiates Screen Positive H Urine Methadone Screen Negative Ur Barbiturates Screen Negative Ur Phencyclidine Scrn Negative Ur Amphetamines Screen Negative U Benzodiazepines Scrn Positive H U Oth Cocaine Metabols Positive H U Cannabinoids Screen Negative Alcohol, Quantitative < 10 05/05/18 07:35 WBC RBC Hgb Hct MCV MCH MCHC RDW Plt Count MPV Gran % Lymph % (Auto) [place] % (Auto) Eos % (Auto) Baso % (Auto) Gran # Lymph # (Auto) [place] # (Auto) Eos # (Auto) Baso # (Auto) Sodium 141 Potassium 3.2 L Chloride 103 Carbon Dioxide 25 Anion Gap 16 BUN 12 Creatinine 0.8 Est GFR ( Amer) > 60 Est GFR (Non-Af Amer) > 60 Random Glucose 103 Calcium 8.6 Phosphorus 2.7 Magnesium 1.4 L Total Bilirubin 0.7 AST 47 ALT 55 Alkaline Phosphatase 52 Lactate Dehydrogenase 475 Total Protein 7.3 Albumin 4.4 Globulin 2.9 Albumin/Globulin Ratio 1.5 Amylase 72 Lipase 64 Urine Opiates Screen Urine Methadone Screen Ur Barbiturates Screen Ur Phencyclidine Scrn Ur Amphetamines Screen U Benzodiazepines Scrn U Oth Cocaine Metabols U Cannabinoids Screen Alcohol, Quantitative Assessment & Plan - Assessment and Plan (Free Text) Assessment: Patient is a 43yo male with PMHx significant for recurrent episodes of colitis, polysubstance abuse (EtOH, cocaine, marijuana), HTN who presented to the ED with abdominal pain, nausea and vomiting -Left sided abdominal pain, suspect recurrent/persistent colitis -Polysubstance abuse - ongoing use -Hypertension Plan: -Suspect frequent episodes of colitis 2/2 recent/ongoing cocaine/EtOH use -I have again stressed the importance of abstinence from all illicit substances and educated the patient on the ill effects -I have reiterated that with unknown underlying cardiac disease and as he is in need of stress testing, he can cause serious harm with ongoing cocaine use, including -The patient would ultimately benefit from colonoscopy once cleared from a cardiac perspective; has been nonadherent outpatient and continues to use illicit drugs -Consider psychiatric evaluation -Will check CTA to rule out any arterial vascular component to ongoing illness though vascular spasm as can occur with cocaine use may not be present on such an exam -Consider rechecking HIV given leukopenia and frequent illness -Consider inpatient cardiac work up if indicated -Encourage patient follow up outpatient with established pain management physician - Date & Time Date: 05/05/18 Time: 14:45 <Miguel Moreno - Last Filed: 05/05/18 18:32> Meds - Medications Medications: Current Medications Amlodipine Besylate (Norvasc) 5 mg PO DAILY [facility] Last Admin: 05/05/18 11:16 Dose: 5 mg Enoxaparin Sodium (Lovenox) 40 mg SC DAILY [facility] PRN Reason: Protocol Last Admin: 05/05/18 12:35 Dose: 40 mg Folic Acid (Folic Acid) 1 mg PO DAILY [facility] Last Admin: 05/05/18 11:17 Dose: 1 mg Gemfibrozil (Lopid) 600 mg PO BID [facility] Last Admin: 05/05/18 17:43 Dose: 600 mg Sodium Chloride (Sodium Chloride 0.9%) 1,000 mls @ 125 mls/hr IV .Q8H [facility] Last Admin: 05/05/18 05:43 Dose: 125 mls/hr Lorazepam (Ativan) 2 mg IVP Q4H PRN; Protocol PRN Reason: Symptoms of alcohol withdrawl Last Admin: 05/05/18 17:44 Dose: 2 mg Multivitamins/Minerals (Therapeutic-M Tab) 1 tab PO DAILY [facility] Last Admin: 05/05/18 11:16 Dose: 1 tab Ondansetron HCl (Zofran Inj) 4 mg IVP Q6H PRN PRN Reason: Nausea/Vomiting Pantoprazole Sodium (Protonix Ec Tab) 20 mg PO 0600 [facility] Last Admin: 05/05/18 07:02 Dose: 20 mg Paroxetine HCl (Paxil) 10 mg PO DAILY [facility] Last Admin: 05/05/18 11:16 Dose: 10 mg Thiamine HCl (Vitamin B1 Tab) 100 mg PO DAILY [facility] Last Admin: 05/05/18 11:16 Dose: 100 mg Results - Vital Signs Recent Vital Signs: Last Vital Signs Temp 98.5 F 05/05/18 14:00 Pulse 89 05/05/18 14:00 Resp 18 05/05/18 14:00 BP 129/89 05/05/18 14:00 Pulse Ox 95 05/05/18 14:00 - Labs Result Diagrams: 05/05/18 07:35 05/05/18 07:35 Labs: Laboratory Results - last 24 hr 05/05/18 05/05/18 05/05/18 05:00 05:45 07:35 WBC 4.5 RBC 3.84 Hgb 10.9 L Hct 33.4 L MCV 87.0 MCH 28.4 MCHC 32.6 RDW 14.4 Plt Count 153 MPV 10.7 Gran % 56.3 Lymph % (Auto) 33.8 [place] % (Auto) 9.5 H Eos % (Auto) 0.2 L Baso % (Auto) 0.2 Gran # 2.54 Lymph # (Auto) 1.5 [place] # (Auto) 0.4 Eos # (Auto) 0.0 Baso # (Auto) 0.01 Sodium Potassium Chloride Carbon Dioxide Anion Gap BUN Creatinine Est GFR ( Amer) Est GFR (Non-Af Amer) Random Glucose Calcium Phosphorus Magnesium Total Bilirubin AST ALT Alkaline Phosphatase Lactate Dehydrogenase Total Protein Albumin Globulin Albumin/Globulin Ratio Amylase Lipase Urine Opiates Screen Positive H Urine Methadone Screen Negative Ur Barbiturates Screen Negative Ur Phencyclidine Scrn Negative Ur Amphetamines Screen Negative U Benzodiazepines Scrn Positive H U Oth Cocaine Metabols Positive H U Cannabinoids Screen Negative Alcohol, Quantitative < 10 05/05/18 07:35 WBC RBC Hgb Hct MCV MCH MCHC RDW Plt Count MPV Gran % Lymph % (Auto) [place] % (Auto) Eos % (Auto) Baso % (Auto) Gran # Lymph # (Auto) [place] # (Auto) Eos # (Auto) Baso # (Auto) Sodium 141 Potassium 3.2 L Chloride 103 Carbon Dioxide 25 Anion Gap 16 BUN 12 Creatinine 0.8 Est GFR ( Amer) > 60 Est GFR (Non-Af Amer) > 60 Random Glucose 103 Calcium 8.6 Phosphorus 2.7 Magnesium 1.4 L Total Bilirubin 0.7 AST 47 ALT 55 Alkaline Phosphatase 52 Lactate Dehydrogenase 475 Total Protein 7.3 Albumin 4.4 Globulin 2.9 Albumin/Globulin Ratio 1.5 Amylase 72 Lipase 64 Urine Opiates Screen Urine Methadone Screen Ur Barbiturates Screen Ur Phencyclidine Scrn Ur Amphetamines Screen U Benzodiazepines Scrn U Oth Cocaine Metabols U Cannabinoids Screen Alcohol, Quantitative Attending/Attestation - Attestation I have personally seen and examined this patient.: Yes I have fully participated in the care of the patient.: Yes I have reviewed all pertinent clinical information: Yes Notes (Text): 05/05/18 18:23 This is a 43yo male with PMHx significant for recurrent episodes of colitis, polysubstance abuse (EtOH, cocaine, marijuana), HTN who presented to the ED with abdominal pain, nausea and vomiting due to alcohol and cocaine combination. Counceling regarding drug and alcohol abuse. Will get Ct angiogram. -I have again stressed the importance of abstinence from all illicit substances and educated the patient on the ill effects -I have reiterated that with unknown underlying cardiac disease and as he is in need of stress testing, he can cause serious harm with ongoing cocaine use, including -The patient would ultimately benefit from colonoscopy once cleared from a cardiac perspective; has been nonadherent outpatient and continues to use illicit drugs -Consider psychiatric evaluation
--- NOTE | 2018-05-05 14:53 | CP.PCM.PN ---
<Vince Westfall - Last Filed: 05/05/18 14:47> Subjective - Date & Time of Evaluation Date of Evaluation: 05/05/18 Time of Evaluation: 09:45 - Subjective Subjective: Vince Westfall DO PGY-1, Video Game T[employer] Hospitalist Progress Note Pt seen and examined at bedside. States he was unable to sleep overnight due to nausea/vomiting sxs. States last time vomited was 4 am this morning, states he has been able to tolerate water this am. Denies tremors, palpitations, or diaphoresis. Appears a little anxious this am. C/o L sided abd pain localized to LUQ and LLQ. Objective - Vital Signs/Intake and Output Vital Signs (last 24 hours): Temp Pulse Resp BP Pulse Ox 98.5 F 76 18 140/98 H 99 05/05/18 12:20 05/05/18 12:20 05/05/18 12:20 05/05/18 12:20 05/05/18 12:00 - Medications Medications: Current Medications Amlodipine Besylate (Norvasc) 5 mg PO DAILY [facility] Last Admin: 05/05/18 11:16 Dose: 5 mg Enoxaparin Sodium (Lovenox) 40 mg SC DAILY [facility] PRN Reason: Protocol Last Admin: 05/05/18 12:35 Dose: 40 mg Folic Acid (Folic Acid) 1 mg PO DAILY [facility] Last Admin: 05/05/18 11:17 Dose: 1 mg Gemfibrozil (Lopid) 600 mg PO BID [facility] Last Admin: 05/05/18 11:16 Dose: 600 mg Sodium Chloride (Sodium Chloride 0.9%) 1,000 mls @ 125 mls/hr IV .Q8H [facility] Last Admin: 05/05/18 05:43 Dose: 125 mls/hr Potassium Chloride (Potassium Chloride 10 Meq/100 Ml) 10 meq in 100 mls @ 50 mls/hr IVPB Q2H [facility] Stop: 05/05/18 17:29 Last Admin: 05/05/18 14:04 Dose: 50 mls/hr Lorazepam (Ativan) 2 mg IVP Q4H PRN; Protocol PRN Reason: Symptoms of alcohol withdrawl Last Admin: 05/05/18 11:15 Dose: 2 mg Multivitamins/Minerals (Therapeutic-M Tab) 1 tab PO DAILY [facility] Last Admin: 05/05/18 11:16 Dose: 1 tab Ondansetron HCl (Zofran Inj) 4 mg IVP Q6H PRN PRN Reason: Nausea/Vomiting Pantoprazole Sodium (Protonix Ec Tab) 20 mg PO 0600 [facility] Last Admin: 05/05/18 07:02 Dose: 20 mg Paroxetine HCl (Paxil) 10 mg PO DAILY [facility] Last Admin: 05/05/18 11:16 Dose: 10 mg Thiamine HCl (Vitamin B1 Tab) 100 mg PO DAILY [facility] Last Admin: 05/05/18 11:16 Dose: 100 mg - Labs Labs: 05/05/18 07:35 05/05/18 07:35 - Constitutional Appears: No Acute Distress, Other (Anxious on exam, appears ill) - Head Exam Head Exam: ATRAUMATIC, NORMAL INSPECTION, NORMOCEPHALIC - Eye Exam Eye Exam: EOMI, Normal appearance, PERRL - ENT Exam ENT Exam: Mucous Membranes Moist, Normal Oropharynx - Neck Exam Neck Exam: Full ROM, Normal Inspection - Respiratory Exam Respiratory Exam: Clear to Ausculation Bilateral, NORMAL BREATHING PATTERN - Cardiovascular Exam Cardiovascular Exam: REGULAR RHYTHM, +S1, +S2 - GI/Abdominal Exam GI & Abdominal Exam: Soft, Normal Bowel Sounds Additional comments: Tenderness to palpation in LUQ and LLQ, no rebound tenderness - Extremities Exam Extremities Exam: Full ROM, Normal Capillary Refill, Normal Inspection - Back Exam Back Exam: Full ROM, NORMAL INSPECTION - Neurological Exam Neurological Exam: Alert, Awake, CN II-XII Intact, Normal Gait, Oriented x3 - Psychiatric Exam Psychiatric exam: Anxious - Skin Skin Exam: Dry, Intact, Normal Color, Warm Assessment and Plan - Assessment and Plan (Free Text) Assessment: Mr Craig is a 43 year old Male who presented to the ED with abdominal pain and vomiting since yesterday morning. Patient is admitted for abdominal pain 2/ 2 colitis 2/2 EtOH abuse, and for alcohol withdrawal. Plan: Abdominal Pain 2/2 substance abuse (ETOH and cocaine) - Likely due to colitis (prior abd CT in ED last week demonstrated colitis) - GI consulted: f/u recs, pt non-compliant on prior admissions to follow-up with GI outpatient for colonoscopy - last consumption of ETOH and cocaine was Saturday evening - Amylase, lipase, LDH wnl - Abd XR neg - NS @ 125 cc/hr - EKG wnl on admission - Liquid diet -advance as tolerated - Encourage cessation of alcohol and drug use - Urine drug screen pos for opiates, benzodiazepines, and cocaine Anion Gap Ketoacidosis 2/2 Alcohol Consumption vs dehydration - patient has been admitted for ETOH binge and withdrawals in the past, for which patient receives Librium while in hospital in the past - bicarb 20, anion gap of 25 likely secondary to contraction - banana bag ordered (Thiamine, multivitamin, Folate) - CIWA protocol, fall and seizure precautions - blood ETOH < 10 - Ativan 2 q4 prn HTN continue Amlodipine 5 Anxiety continue Paxil 10 Prophylaxis SCD Lovenox 40 Protonix 40 Pt seen, examined with, and plan d/w Dr. Silverio, attending Vince Westfall DO PGY-1 #[phone] <Luisito Silverio - Last Filed: 05/08/18 13:36> Objective - Vital Signs/Intake and Output Vital Signs (last 24 hours): Temp Pulse Resp BP Pulse Ox 98.4 F 98 H 18 125/90 100 05/07/18 06:00 05/07/18 10:50 05/07/18 06:00 05/07/18 10:50 05/07/18 06:00 - Labs Labs: 05/07/18 06:30 05/07/18 06:30 Attending/Attestation - Attestation I have personally seen and examined this patient.: Yes I have fully participated in the care of the patient.: Yes I have reviewed all pertinent clinical information, including history, physical exam and plan: Yes Notes (Text): 05/08/18 13:35 Medical record note made by the resident after discussion with my direction and input after the patient was personally seen and examined by me. I have reviewed the chart and agree that the record accurately reflects by personal performance of the history, physical exam, data review, and medical decision-making, in the course for the patient. I have also personally directed the plan of care.
--- NOTE | 2018-05-05 17:44 | CT ---
Date of service: 05/05/2018 PROCEDURE: CT Angiography Abdomen and pelvis HISTORY: recurrent colitis, R/O vascular component COMPARISON: None. TECHNIQUE: Technique: CT angiography of the abdomen and pelvis performed in the arterial phase of enhancement. Coronal and sagittal reformats, and well as rotating MIP images of the vessels generated at the workstation. Intravenous contrast dose: 150 mL Omnipaque 350 Radiation dose: Total exam DLP = 333.6 mGy-cm. This CT exam was performed using one or more of the following dose reduction techniques: Automated exposure control, adjustment of the mA and/or kV according to patient size, and/or use of iterative reconstruction technique. FINDINGS: CT ANGIOGRAPHY: Abdominal aorta normal in caliber without aneurysm, stenosis or gross occlusion. Celiac, superior mesenteric, inferior mesenteric and bilateral renal arteries are widely patent. Common, external and internal iliac arteries are widely patent as are bilateral common femoral and partially imaged superficial and deep femoral arteries. NON-ANGIOGRAPHIC ASPECT OF THE EXAM: LOWER THORAX: Unremarkable. LIVER: Unremarkable. No gross lesion or ductal dilatation. GALLBLADDER AND BILE DUCTS: Unremarkable. PANCREAS: Unremarkable. No gross lesion or ductal dilatation. SPLEEN: Unremarkable. ADRENALS: Unremarkable. No mass. KIDNEYS AND URETERS: Stable too small to characterize bilateral renal hypodensities. No hydronephrosis. No solid mass. STOMACH AND BOWEL: Unremarkable. No evidence of colitis. No obstruction. No gross mural thickening. APPENDIX: No findings to suggest acute appendicitis. PERITONEUM: Small fat containing umbilical hernia. Left lower quadrant subcutaneous infiltration and air, likely iatrogenic. No free fluid. No free air. LYMPH NODES: Unremarkable. No enlarged lymph nodes. BLADDER: Unremarkable. REPRODUCTIVE: Unremarkable. BONES: No acute fracture. OTHER FINDINGS: None. IMPRESSION: No acute abdominal pelvic pathology. Normal CT angiography of the abdomen and pelvis.
[2018-05-06] MEDS: Pantoprazole 20 mg EC Tab PO SCH (06:05)
[2018-05-06] MEDS: Multivitamin With Minerals Tab PO SCH (09:24)
[2018-05-06 09:52] LABS: BASO # 0.01 K/mm3 (0.0-2.0); BASO % 0.3 % (0.0-3.0); GRAN # 1.6 (1.4-6.5); GRAN % 50.8 % (50.0-68.0); HEMOGLOBIN 11.5 g/dL (14.0-18.0); LYMPH # 1.1 (1.2-3.4); LYMPH % 36.2 % (22.0-35.0); MEAN CELL VOLUME 88.2 fl (80.0-105.0); MEAN CORPUSCULAR HEMOGLOBIN 28.3 pg (25.0-35.0); MEAN CORPUSCULAR HGB CONC 32.1 g/dl (31.0-37.0); MEAN PLATELET VOLUME 10.6 fl (7.0-11.0); MONO # 0.4 (0.1-0.6); MONO % 11.7 % (1.0-6.0); RBC 4.06 10^6/uL (3.5-6.1); WHITE BLOOD COUNT 3.2 10^3/ul (4.5-11.0)
[2018-05-06 10:00] LABS: ALB/GLOB RATIO 1.6 (1.1-1.8); ALBUMIN 4.2 g/dL (3.0-4.8); ALT/SGPT 52 U/L (7-56); AST/SGOT 81 U/L (17-59); BLOOD UREA NITROGEN 2 mg/dL (7-21); CALCIUM 8.9 mg/dL (8.4-10.5); GFR AFRICAN-AMERICAN > 60; GFR NON-AFRICAN AMERICAN > 60
--- NOTE | 2018-05-06 14:11 | CP.PCM.PN ---
<Vince Westfall - Last Filed: 05/06/18 14:08> Subjective - Date & Time of Evaluation Date of Evaluation: 05/06/18 Time of Evaluation: 09:10 - Subjective Subjective: Vince Westfall DO PGY-1, Archeology Professor Hospitalist Progress Note Pt seen and examined at bedside. Pt states he had no episodes of nausea/ vomiting overnight into this am. Tolerating liquid diet without concerns. States his abd pain is improving today. Able to ambulate to bathroom. C/o mild headache this am along with occasional tremor when raising R arm, but otherwise denies any acute concerns. Objective - Vital Signs/Intake and Output Vital Signs (last 24 hours): Temp Pulse Resp BP Pulse Ox 98.6 F 77 20 131/90 100 05/06/18 06:00 05/06/18 09:24 05/06/18 06:00 05/06/18 09:24 05/06/18 06:00 - Medications Medications: Current Medications Amlodipine Besylate (Norvasc) 5 mg PO DAILY [facility] Last Admin: 05/06/18 09:24 Dose: 5 mg Enoxaparin Sodium (Lovenox) 40 mg SC DAILY [facility] PRN Reason: Protocol Last Admin: 05/05/18 12:35 Dose: 40 mg Folic Acid (Folic Acid) 1 mg PO DAILY [facility] Last Admin: 05/06/18 09:25 Dose: 1 mg Gemfibrozil (Lopid) 600 mg PO BID [facility] Last Admin: 05/06/18 09:24 Dose: 600 mg Sodium Chloride (Sodium Chloride 0.9%) 1,000 mls @ 125 mls/hr IV .Q8H [facility] Last Admin: 05/05/18 23:08 Dose: 125 mls/hr Lorazepam (Ativan) 2 mg IVP Q4H PRN; Protocol PRN Reason: Symptoms of alcohol withdrawl Last Admin: 05/06/18 09:25 Dose: 2 mg Multivitamins/Minerals (Therapeutic-M Tab) 1 tab PO DAILY [facility] Last Admin: 05/06/18 09:24 Dose: 1 tab Ondansetron HCl (Zofran Inj) 4 mg IVP Q6H PRN PRN Reason: Nausea/Vomiting Pantoprazole Sodium (Protonix Ec Tab) 20 mg PO 0600 [facility] Last Admin: 07/10/18 06:05 Dose: 20 mg Paroxetine HCl (Paxil) 10 mg PO DAILY [facility] Last Admin: 05/06/18 09:25 Dose: 10 mg Thiamine HCl (Vitamin B1 Tab) 100 mg PO DAILY [facility] Last Admin: 05/06/18 09:24 Dose: 100 mg - Labs Labs: 05/06/18 09:45 05/06/18 09:45 - Constitutional Appears: Non-toxic, No Acute Distress - Head Exam Head Exam: ATRAUMATIC, NORMAL INSPECTION, NORMOCEPHALIC - Eye Exam Eye Exam: EOMI, Normal appearance, PERRL - ENT Exam ENT Exam: Mucous Membranes Moist, Normal Oropharynx - Neck Exam Neck Exam: Full ROM, Normal Inspection - Respiratory Exam Respiratory Exam: Clear to Ausculation Bilateral, NORMAL BREATHING PATTERN - Cardiovascular Exam Cardiovascular Exam: REGULAR RHYTHM, +S1, +S2 - GI/Abdominal Exam GI & Abdominal Exam: Soft, Normal Bowel Sounds Additional comments: Mild tenderness to palpation in LUQ and LLQ, no rebound tenderness - Extremities Exam Extremities Exam: Full ROM, Normal Capillary Refill, Normal Inspection - Back Exam Back Exam: Full ROM, NORMAL INSPECTION - Neurological Exam Neurological Exam: Alert, Awake, CN II-XII Intact, Normal Gait, Oriented x3 Additional comments: Mild tremor observed in R upper extremity during Romberg testing - Skin Skin Exam: Dry, Intact, Normal Color, Warm Assessment and Plan - Assessment and Plan (Free Text) Assessment: 43 year old Male who presented to the ED with abdominal pain and vomiting since yesterday morning. Patient is admitted for abdominal pain 2/2 colitis 2/2 EtOH abuse, and for alcohol withdrawal. Plan: Abdominal Pain 2/2 substance abuse (ETOH and cocaine) - Likely due to colitis (prior abd CT in ED last week demonstrated colitis) - GI consulted: f/u recs, pt non-compliant on prior admissions to follow-up with GI outpatient for colonoscopy. Recommend cardiac risk stratification prior to procedure. Cardio consulted, recs appreciated. - last consumption of ETOH and cocaine was Saturday evening - Amylase, lipase, LDH wnl - Abd XR neg - Abd CTA neg - Fluids d/c'd - EKG wnl on admission - No reported episodes of nausea/vomiting, advance diet as tolerated - Encourage cessation of alcohol and drug use - Urine drug screen pos for opiates, benzodiazepines, and cocaine Anion Gap Ketoacidosis 2/2 Alcohol Consumption vs dehydration - patient has been admitted for ETOH binge and withdrawals in the past, for which patient receives Librium while in hospital in the past - bicarb on admission 20, anion gap of 25 likely secondary to contraction - banana bag (Thiamine, multivitamin, Folate) - CIWA protocol, fall and seizure precautions - blood ETOH < 10 - Ativan 2 q4 prn HTN continue Amlodipine 5 Continue to trend bp Anxiety continue Paxil 10 Prophylaxis SCD Lovenox 40 Protonix 40 Pt seen, examined with, and plan d/w Dr. Silverio, attending Vince Westfall DO PGY-1 #[phone] <Luisito Silverio - Last Filed: 05/08/18 13:36> Objective - Vital Signs/Intake and Output Vital Signs (last 24 hours): Temp Pulse Resp BP Pulse Ox 98.4 F 98 H 18 125/90 100 05/07/18 06:00 05/07/18 10:50 05/07/18 06:00 05/07/18 10:50 05/07/18 06:00 - Labs Labs: 05/07/18 06:30 05/07/18 06:30 Attending/Attestation - Attestation I have personally seen and examined this patient.: Yes I have fully participated in the care of the patient.: Yes I have reviewed all pertinent clinical information, including history, physical exam and plan: Yes Notes (Text): 05/08/18 13:36 Medical record note made by the resident after discussion with my direction and input after the patient was personally seen and examined by me. I have reviewed the chart and agree that the record accurately reflects by personal performance of the history, physical exam, data review, and medical decision-making, in the course for the patient. I have also personally directed the plan of care.
[2018-05-07] MEDS: Sodium Chloride 0.9% 1,000 ML IV SCH ×2 (00:30→08:37)
[2018-05-07] MEDS: Pantoprazole 20 mg EC Tab PO SCH (06:24)
[2018-05-07 07:09] LABS: BASO # 0.01 K/mm3 (0.0-2.0); BASO % 0.2 % (0.0-3.0); GRAN # 1.85 (1.4-6.5); GRAN % 45.8 % (50.0-68.0); HEMOGLOBIN 11.7 g/dL (14.0-18.0); LYMPH # 1.6 (1.2-3.4); LYMPH % 40.2 % (22.0-35.0); MEAN CELL VOLUME 86.9 fl (80.0-105.0); MEAN CORPUSCULAR HEMOGLOBIN 28.8 pg (25.0-35.0); MEAN CORPUSCULAR HGB CONC 33.1 g/dl (31.0-37.0); MEAN PLATELET VOLUME 11.1 fl (7.0-11.0); MONO # 0.5 (0.1-0.6); MONO % 12.8 % (1.0-6.0); RBC 4.06 10^6/uL (3.5-6.1); RED CELL DISTRIBUTION WIDTH 13.8 % (11.5-14.5); WHITE BLOOD COUNT 4.1 10^3/ul (4.5-11.0)
[2018-05-07] MEDS ORDERED: Potassium Chloride 40 mEq/30 ml LIQ UD PO STA (07:22)
[2018-05-07 07:23] LABS: ALB/GLOB RATIO 1.5 (1.1-1.8); ALT/SGPT 42 U/L (7-56); AST/SGOT 39 U/L (17-59); BLOOD UREA NITROGEN 11 mg/dL (7-21); CALCIUM 9.2 mg/dL (8.4-10.5); GFR AFRICAN-AMERICAN > 60; GFR NON-AFRICAN AMERICAN > 60
[2018-05-07] MEDS ORDERED: Magnesium Sulfate 1 gm in D5W 1 GM/100 ML BAG IVPB ONE (07:31)
--- NOTE | 2018-05-07 08:04 | CP.PCM.PN ---
Addendum entered and electronically signed by Linwood Dan DO 05/07/18 11:26 : PGY6 GI Fellow Addendum: After discussion on rounds, plan will be to defer endoscopic evaluation to outpatient setting given recent and ongoing cocaine use. Strongly encourage patient to follow up outpatient in clinic setting. Original Note: <Linwood Dan - Last Filed: 05/07/18 09:23> Subjective - Date & Time of Evaluation Date of Evaluation: 05/07/18 Time of Evaluation: 07:30 - Subjective Subjective: PGY6 GI Fellow Progress Note Patient seen and examined bedside this morning. The patient states he is feeling well today and has no complaints at present. No events overnight. Tolerating diet without issue. No nausea/vomiting. Passing stool without issue. 12 system ROS performed and negative except where stated. Objective - Vital Signs/Intake and Output Vital Signs (last 24 hours): Temp Pulse Resp BP Pulse Ox 98.6 F 84 20 120/83 98 05/07/18 00:00 05/07/18 00:00 05/07/18 00:00 05/07/18 00:00 05/07/18 00:00 Intake and Output: 05/07/18 05/07/18 06:59 18:59 Intake Total 1500 Output Total 850 Balance 650 - Medications Medications: Current Medications Amlodipine Besylate (Norvasc) 5 mg PO DAILY [facility] Last Admin: 05/06/18 09:24 Dose: 5 mg Enoxaparin Sodium (Lovenox) 40 mg SC DAILY [facility] PRN Reason: Protocol Last Admin: 05/05/18 12:35 Dose: 40 mg Folic Acid (Folic Acid) 1 mg PO DAILY [facility] Last Admin: 05/06/18 09:25 Dose: 1 mg Gemfibrozil (Lopid) 600 mg PO BID [facility] Last Admin: 05/06/18 09:24 Dose: 600 mg Sodium Chloride (Sodium Chloride 0.9%) 1,000 mls @ 125 mls/hr IV .Q8H [facility] Last Admin: 05/07/18 00:30 Dose: 125 mls/hr Magnesium Sulfate/Dextrose (Magnesium Sulfate 1 Gm/100 Ml D5w) 1 gm in 100 mls @ 100 mls/hr IVPB ONCE ONE Stop: 05/07/18 08:30 Lorazepam (Ativan) 2 mg IVP Q4H PRN; Protocol PRN Reason: Symptoms of alcohol withdrawl Last Admin: 05/06/18 21:20 Dose: 2 mg Multivitamins/Minerals (Therapeutic-M Tab) 1 tab PO DAILY [facility] Last Admin: 05/06/18 09:24 Dose: 1 tab Ondansetron HCl (Zofran Inj) 4 mg IVP Q6H PRN PRN Reason: Nausea/Vomiting Pantoprazole Sodium (Protonix Ec Tab) 20 mg PO 0600 [facility] Last Admin: 05/07/18 06:24 Dose: 20 mg Paroxetine HCl (Paxil) 10 mg PO DAILY [facility] Last Admin: 05/06/18 09:25 Dose: 10 mg Thiamine HCl (Vitamin B1 Tab) 100 mg PO DAILY [facility] Last Admin: 05/06/18 09:24 Dose: 100 mg - Labs Labs: 05/07/18 06:30 05/07/18 06:30 - Constitutional Appears: Non-toxic, No Acute Distress - Eye Exam Eye Exam: EOMI, PERRL - ENT Exam ENT Exam: Mucous Membranes Moist - Respiratory Exam Respiratory Exam: Clear to Ausculation Bilateral. absent: Rales, Rhonchi, Wheezes - Cardiovascular Exam Cardiovascular Exam: RRR, +S1, +S2 - GI/Abdominal Exam GI & Abdominal Exam: Soft, Normal Bowel Sounds. absent: Distended, Firm, Guarding, Rigid, Tenderness, Organomegaly - Extremities Exam Extremities Exam: Normal Inspection. absent: Pedal Edema - Neurological Exam Neurological Exam: Alert, Awake, Oriented x3 - Psychiatric Exam Psychiatric exam: Normal Affect, Normal Mood - Skin Skin Exam: Dry, Warm Assessment and Plan - Assessment and Plan (Free Text) Assessment: Patient is a 43yo male with PMHx significant for recurrent episodes of colitis, polysubstance abuse (EtOH, cocaine, marijuana), HTN who presented to the ED with abdominal pain, nausea and vomiting -Left sided abdominal pain, suspect recurrent/persistent colitis -Polysubstance abuse - ongoing use -Hypertension Plan: -Suspect frequent episodes of colitis 2/2 recent/ongoing cocaine/EtOH use -CTA reviewed, no arterial lesions noted; RLQ near ileo-cecal valve dilation of bowel noted by my interpretation -Cardiology consulted for evaluation given prior positive stress test, patient has been unable to obtain further work up outpatient thus far - cardiology has evaluate prior echo and current EKGs, no active CP - state patient cleared for endoscopic work up -Plan for EGD/Colonoscopy on Saturday -Start clear liquid diet today at noon -2L GoLytely prep today -Dulcolax 10mg PO once tomorrow at noon -4L GoLytely prep tomorrow -Educated on ill effects of ongoing cocaine use <Miguel Moreno - Last Filed: 05/07/18 14:43> Objective - Vital Signs/Intake and Output Vital Signs (last 24 hours): Temp Pulse Resp BP Pulse Ox 98.4 F 98 H 18 125/90 100 05/07/18 06:00 05/07/18 10:50 05/07/18 06:00 05/07/18 10:50 05/07/18 06:00 Intake and Output: 05/07/18 05/07/18 06:59 18:59 Intake Total 1500 Output Total 850 Balance 650 - Medications Medications: Current Medications Amlodipine Besylate (Norvasc) 5 mg PO DAILY [facility] Last Admin: 05/07/18 10:50 Dose: 5 mg Bisacodyl (Dulcolax) 10 mg PO ONCE ONE Stop: 05/08/18 12:01 Enoxaparin Sodium (Lovenox) 40 mg SC DAILY [facility] PRN Reason: Protocol Last Admin: 05/07/18 11:01 Dose: 40 mg Folic Acid (Folic Acid) 1 mg PO DAILY [facility] Last Admin: 05/07/18 10:51 Dose: 1 mg Gemfibrozil (Lopid) 600 mg PO BID [facility] Last Admin: 05/07/18 10:50 Dose: 600 mg Sodium Chloride (Sodium Chloride 0.9%) 1,000 mls @ 125 mls/hr IV .Q8H [facility] Last Admin: 05/07/18 08:37 Dose: 125 mls/hr Lorazepam (Ativan) 2 mg IVP Q4H PRN; Protocol PRN Reason: Symptoms of alcohol withdrawl Last Admin: 05/06/18 21:20 Dose: 2 mg Multivitamins/Minerals (Therapeutic-M Tab) 1 tab PO DAILY [facility] Last Admin: 05/07/18 10:49 Dose: 1 tab Ondansetron HCl (Zofran Inj) 4 mg IVP Q6H PRN PRN Reason: Nausea/Vomiting Pantoprazole Sodium (Protonix Ec Tab) 20 mg PO 0600 [facility] Last Admin: 05/07/18 06:24 Dose: 20 mg Paroxetine HCl (Paxil) 10 mg PO DAILY [facility] Last Admin: 05/07/18 10:49 Dose: 10 mg Thiamine HCl (Vitamin B1 Tab) 100 mg PO DAILY [facility] Last Admin: 05/07/18 10:49 Dose: 100 mg - Labs Labs: 05/07/18 06:30 05/07/18 06:30 Attending/Attestation - Attestation I have personally seen and examined this patient.: Yes I have fully participated in the care of the patient.: Yes I have reviewed all pertinent clinical information, including history, physical exam and plan: Yes Notes (Text): 05/07/18 14:40 This is a 43 year old male with PMHx significant for recurrent episodes of colitis, polysubstance abuse (EtOH, cocaine, marijuana), HTN who presented to the ED with abdominal pain, nausea and vomiting due to alcohol and cocaine combination. Counseling regarding drug and alcohol abuse. -I have again stressed the importance of abstinence from all illicit substances and educated the patient on the ill effects -I have reiterated that with unknown underlying cardiac disease and as he is in need of stress testing, he can cause serious harm with ongoing cocaine use, including
--- NOTE | 2018-05-07 08:20 | CON ---
DATE: 05/07/2018 REQUESTING PHYSICIAN: Dr. Silverio. REASON FOR CONSULTATION: Cardiac clearance prior to endoscopy. HISTORY: This is a 43-year-old man with a longstanding history of substance abuse including alcohol, tobacco and cocaine who presents to the Emergency Room with abdominal discomfort and vomiting. He has been advised a colonoscopy. Cardiac evaluation was requested. He denies any known prior heart disease. An echocardiogram performed earlier this year was relatively unremarkable with normal LV size and systolic function. No significant valvular abnormalities. He states that he underwent a regular stress test in the recent past and some mild abnormality was noted on this. He was advised a nuclear stress test; however, his insurance plan has declined payment for this. He denies any recent chest pain. He states he has had no exertional dyspnea. PAST HISTORY: Notable for hypertension, anxiety, depression, intermittent colitis, prior right ankle fracture surgery. ALLERGIES: NONE. MEDICATIONS: Amlodipine 5 mg daily and Paxil 10 mg daily. FAMILY HISTORY: Unremarkable for premature heart disease. SOCIAL HISTORY: He drnks 2 to 3 bottles of vodka a day and uses cocaine on occasion and smokes half pack per cigarettes per day. REVIEW OF SYSTEMS: A 10-point review of systems is otherwise unremarkable. He states he is fairly active. PHYSICAL EXAMINATION: GENERAL: He is a thin middle-aged man who appears comfortable at rest. His blood pressure is 120/82 with a pulse of 84, respirations 14. He is afebrile. HEENT: No JVD or bruits. Carotid upstrokes are 2+ bilaterally. CHEST: Reveals a few scattered rhonchi. HEART: PMI in normal position. No pathological rubs or gallops noted. ABDOMEN: Soft and nontender with normoactive bowel sounds. EXTREMITIES: No clubbing, cyanosis or edema. SKIN: Warm and dry. PSYCHIATRIC: Normal mood and affect. NEUROLOGIC: Alert and oriented x3. No gross motor or sensory deficit appreciable. DIAGNOSTIC DATA: White count is 4.1, hemoglobin and hematocrit 11.7 and 35.3 with platelet count 158,000, potassium 3.4, BUN and creatinine are 2 and 0.8, phosphorus 2. AST and ALT 81 and 52. Electrocardiogram reveals sinus rhythm with voltage criteria for LVH, no acute abnormalities were seen. Chest x-ray was not found in the system and abdominal CT was performed, which was reportedly unremarkable. IMPRESSION: 1. Abdominal pain, likely gastrointestinal in nature, doubt cardiac cause. 2. History of some abnormality on his regular treadmill stress test, details unavailable. 3. Multiple substance abuse. 4. Mild hypokalemia and hypophosphatemia. RECOMMENDATIONS: With respect to colonoscopy, he appears stable from a cardiac standpoint to proceed with this. He was encouraged to follow up with his primary care physicians at [place] for further plans with respect to completion of his cardiac workup as necessary. Potassium and phosphorus replacements are advised. Tobacco, drug and alcohol abstinence were strongly advised. If we can provide any future help, please re-consult as needed. Sonny Armendariz MD MTDD
[2018-05-07 09:00] VITALS: BP 125/90; PULSE 98; RESP 18; TEMP 98.4; O2SAT 100
[2018-05-07] MEDS: Multivitamin With Minerals Tab PO SCH (10:49)
[2018-05-07] MEDS: Enoxaparin 40 mg Syringe SC SCH (11:01)
--- NOTE | 2018-05-07 11:34 | CP.PCM.DIS ---
<Vince Westfall - Last Filed: 05/07/18 13:49> Provider - Provider Date of Admission: 05/06/18 07:54 Attending physician: Luisito Silverio MD Primary care physician: Griselda Heard MD Consults: GI - Dr. Moreno; Cardio - Dr. Turner Time Spent in preparation of Discharge (in minutes): 45 Hospital Course - Lab Results Lab Results: Most Recent Lab Values WBC 4.1 10^3/ul (4.5-11.0) L D 05/07/18 06:30 RBC 4.06 10^6/uL (3.5-6.1) 05/07/18 06:30 Hgb 11.7 g/dL (14.0-18.0) L 05/07/18 06:30 Hct 35.3 % (42.0-52.0) L 05/07/18 06:30 MCV 86.9 fl (80.0-105.0) 05/07/18 06:30 MCH 28.8 pg (25.0-35.0) 05/07/18 06:30 MCHC 33.1 g/dl (31.0-37.0) 05/07/18 06:30 RDW 13.8 % (11.5-14.5) 05/07/18 06:30 Plt Count 158 10^3/uL (120.0-450.0) 05/07/18 06:30 MPV 11.1 fl (7.0-11.0) H 05/07/18 06:30 Gran % 45.8 % (50.0-68.0) L 05/07/18 06:30 Lymph % (Auto) 40.2 % (22.0-35.0) H 05/07/18 06:30 [place] % (Auto) 12.8 % (1.0-6.0) H 05/07/18 06:30 Eos % (Auto) 1.0 % (1.5-5.0) L 05/07/18 06:30 Baso % (Auto) 0.2 % (0.0-3.0) 05/07/18 06:30 Gran # 1.85 (1.4-6.5) 05/07/18 06:30 Lymph # (Auto) 1.6 (1.2-3.4) 05/07/18 06:30 [place] # (Auto) 0.5 (0.1-0.6) 05/07/18 06:30 Eos # (Auto) 0.0 (0.0-0.7) 05/07/18 06:30 Baso # (Auto) 0.01 K/mm3 (0.0-2.0) 05/07/18 06:30 Sodium 140 mmol/L (132-148) 05/07/18 06:30 Potassium 3.9 mmol/L (3.6-5.0) 05/07/18 06:30 Chloride 102 mmol/L (98-107) 05/07/18 06:30 Carbon Dioxide 29 mmol/L (21-33) 05/07/18 06:30 Anion Gap 13 (10-20) 05/07/18 06:30 BUN 11 mg/dL (7-21) 05/07/18 06:30 Creatinine 0.8 mg/dl (0.8-1.5) 05/07/18 06:30 Est GFR ( Amer) > 60 05/07/18 06:30 Est GFR (Non-Af Amer) > 60 05/07/18 06:30 Random Glucose 100 mg/dL (70-110) 05/07/18 06:30 Calcium 9.2 mg/dL (8.4-10.5) 05/07/18 06:30 Phosphorus 3.7 mg/dL (2.5-4.5) 05/07/18 06:30 Magnesium 1.6 mg/dL (1.7-2.2) L 05/07/18 06:30 Total Bilirubin 0.4 mg/dL (0.2-1.3) 05/07/18 06:30 AST 39 U/L (17-59) 05/07/18 06:30 ALT 42 U/L (7-56) 05/07/18 06:30 Alkaline Phosphatase 42 U/L (38-126) 05/07/18 06:30 Lactate Dehydrogenase 475 U/L (333-699) 05/05/18 07:35 Total Protein 6.8 g/dL (5.8-8.3) 05/07/18 06:30 Albumin 4.0 g/dL (3.0-4.8) 05/07/18 06:30 Globulin 2.7 gm/dL 05/07/18 06:30 Albumin/Globulin Ratio 1.5 (1.1-1.8) 05/07/18 06:30 Amylase 72 U/L (35-125) 05/05/18 07:35 Lipase 64 U/L (23-300) 05/05/18 07:35 Urine Opiates Screen Positive (NEGATIVE) H 05/05/18 05:45 Urine Methadone Screen Negative (NEGATIVE) 05/05/18 05:45 Ur Barbiturates Screen Negative (NEGATIVE) 05/05/18 05:45 Ur Phencyclidine Scrn Negative (NEGATIVE) 05/05/18 05:45 Ur Amphetamines Screen Negative (NEGATIVE) 05/05/18 05:45 U Benzodiazepines Scrn Positive (NEGATIVE) H 05/05/18 05:45 U Oth Cocaine Metabols Positive (NEGATIVE) H 05/05/18 05:45 U Cannabinoids Screen Negative (NEGATIVE) 05/05/18 05:45 Alcohol, Quantitative < 10 mg/dL (0-10) 05/05/18 05:00 - Hospital Course Hospital Course: Vince Westfall DO PGY-1, Meat Manager Medicine Discharge Summary This is a 43 year old Male who presented to the ED on 05/04/18 with L sided abdominal pain and intractable vomiting since Saturday morning. His abdominal pain radiated to his L chest and lower neck when he retched. Vomit was nonbloody and nonbilious per the patient, but was watery and full of mucus. Patient rated the pain as 7/10 currently, and nothing has made the pain better or worse. Patient described bouts of diarrhea associated with the vomiting, which he described as loose but nonbloody. Patient admitted to drinking "too much" liquor on Saturday evening and was unable to give an exact quantity. Patient's last ETOH was Saturday night. Patient also admitted to cocaine use, the last being on Saturday. Patient complained of shakes, dry mouth, weakness, mild shortness of breath, and a headache but denied palpitations, cough, sick contacts, and weight changes. In ED, patient was given pain and nausea medication. Abdominal XR demonstrated no obstruction or acute changes. Pt was placed on IVF, given Zofran, and placed on CIWA protocol for alcohol withdrawal. During course of admission pt improved and was able to tolerate PO diet, and stated abdominal pain improved. GI (Dr. Moreno) was consulted due to pt hx of non-compliance with getting colonscopy as outpatient, and hx of chronic colitis. Pt was evaluated by Cardiology for risk stratification prior to colonoscopy. Per Cardio inpatient, pt was deemed medically stable to undergo colonoscopy. Pt was discharged home in stable condition on 05/07/18, and instructed to follow-up with PCP and GI doctor for colonoscopy scheduling. Pt was instructed to continue with home medications and to stop using alcohol and cocaine. Discharge Exam - Head Exam Head Exam: ATRAUMATIC, NORMAL INSPECTION, NORMOCEPHALIC - Eye Exam Eye Exam: EOMI, Normal appearance, PERRL - ENT Exam ENT Exam: Mucous Membranes Moist, Normal Oropharynx - Neck Exam Neck exam: Full Rom, Normal Inspection - Respiratory Exam Respiratory Exam: Clear to PA & Lateral, NORMAL BREATHING PATTERN, UNREMARKABLE - Cardiovascular Exam Cardiovascular Exam: REGULAR RHYTHM, +S1, +S2 - GI/Abdominal Exam GI & Abdominal Exam: Normal Bowel Sounds, Soft, Unremarkable - Neurological Exam Neurological exam: Alert, CN II-XII Intact, Normal Gait, Oriented x3, Reflexes Normal - Psychiatric Exam Psychiatric exam: Normal Affect, Normal Mood - Skin Skin Exam: Dry, Intact, Normal Color, Warm Discharge Plan - Follow Up Plan Condition: FAIR Disposition: HOME/ ROUTINE Instructions: High Blood Pressure (DC), Alcohol Abuse and Alcoholism (DC), Polysubstance Abuse (DC), Acute Abdominal Pain (DC), Acute Abdominal Pain (GEN) Additional Instructions: Please folllow up with your GI Dr within one week If your symptoms persist or return please come back to the ED Referrals: Griselda Heard MD [Primary Care Provider] - <Luisito Silverio - Last Filed: 05/08/18 13:41> Provider - Provider Date of Admission: 05/06/18 07:54 Attending physician: Luisito Silverio MD Primary care physician: Griselda Heard MD Hospital Course - Lab Results Lab Results: Most Recent Lab Values WBC 4.1 10^3/ul (4.5-11.0) L D 05/07/18 06:30 RBC 4.06 10^6/uL (3.5-6.1) 05/07/18 06:30 Hgb 11.7 g/dL (14.0-18.0) L 05/07/18 06:30 Hct 35.3 % (42.0-52.0) L 05/07/18 06:30 MCV 86.9 fl (80.0-105.0) 05/07/18 06:30 MCH 28.8 pg (25.0-35.0) 05/07/18 06:30 MCHC 33.1 g/dl (31.0-37.0) 05/07/18 06:30 RDW 13.8 % (11.5-14.5) 05/07/18 06:30 Plt Count 158 10^3/uL (120.0-450.0) 05/07/18 06:30 MPV 11.1 fl (7.0-11.0) H 05/07/18 06:30 Gran % 45.8 % (50.0-68.0) L 05/07/18 06:30 Lymph % (Auto) 40.2 % (22.0-35.0) H 05/07/18 06:30 Irion % (Auto) 12.8 % (1.0-6.0) H 05/07/18 06:30 Eos % (Auto) 1.0 % (1.5-5.0) L 05/07/18 06:30 Baso % (Auto) 0.2 % (0.0-3.0) 05/07/18 06:30 Gran # 1.85 (1.4-6.5) 05/07/18 06:30 Lymph # (Auto) 1.6 (1.2-3.4) 05/07/18 06:30 [place] # (Auto) 0.5 (0.1-0.6) 05/07/18 06:30 Eos # (Auto) 0.0 (0.0-0.7) 05/07/18 06:30 Baso # (Auto) 0.01 K/mm3 (0.0-2.0) 05/07/18 06:30 Sodium 140 mmol/L (132-148) 05/07/18 06:30 Potassium 3.9 mmol/L (3.6-5.0) 05/07/18 06:30 Chloride 102 mmol/L (98-107) 07/11/18 06:30 Carbon Dioxide 29 mmol/L (21-33) 05/07/18 06:30 Anion Gap 13 (10-20) 05/07/18 06:30 BUN 11 mg/dL (7-21) 05/07/18 06:30 Creatinine 0.8 mg/dl (0.8-1.5) 05/07/18 06:30 Est GFR ( Amer) > 60 05/07/18 06:30 Est GFR (Non-Af Amer) > 60 05/07/18 06:30 Random Glucose 100 mg/dL (70-110) 05/07/18 06:30 Calcium 9.2 mg/dL (8.4-10.5) 05/07/18 06:30 Phosphorus 3.7 mg/dL (2.5-4.5) 05/07/18 06:30 Magnesium 1.6 mg/dL (1.7-2.2) L 05/07/18 06:30 Total Bilirubin 0.4 mg/dL (0.2-1.3) 05/07/18 06:30 AST 39 U/L (17-59) 05/07/18 06:30 ALT 42 U/L (7-56) 05/07/18 06:30 Alkaline Phosphatase 42 U/L (38-126) 05/07/18 06:30 Lactate Dehydrogenase 475 U/L (333-699) 05/05/18 07:35 Total Protein 6.8 g/dL (5.8-8.3) 05/07/18 06:30 Albumin 4.0 g/dL (3.0-4.8) 05/07/18 06:30 Globulin 2.7 gm/dL 05/07/18 06:30 Albumin/Globulin Ratio 1.5 (1.1-1.8) 05/07/18 06:30 Amylase 72 U/L (35-125) 05/05/18 07:35 Lipase 64 U/L (23-300) 05/05/18 07:35 Urine Opiates Screen Positive (NEGATIVE) H 05/05/18 05:45 Urine Methadone Screen Negative (NEGATIVE) 05/05/18 05:45 Ur Barbiturates Screen Negative (NEGATIVE) 05/05/18 05:45 Ur Phencyclidine Scrn Negative (NEGATIVE) 05/05/18 05:45 Ur Amphetamines Screen Negative (NEGATIVE) 05/05/18 05:45 U Benzodiazepines Scrn Positive (NEGATIVE) H 05/05/18 05:45 U Oth Cocaine Metabols Positive (NEGATIVE) H 05/05/18 05:45 U Cannabinoids Screen Negative (NEGATIVE) 05/05/18 05:45 Alcohol, Quantitative < 10 mg/dL (0-10) 05/05/18 05:00 HIV 1&2 Ag/Ab, 4th Gen Nonreactive (Nonreactive) 05/07/18 06:30 Attending/Attestation - Attestation I have personally seen and examined this patient.: Yes I have fully participated in the care of the patient.: Yes I have reviewed all pertinent clinical information, including history, physical exam and plan: Yes Notes (Text): 05/08/18 13:38 Medical record note made by the resident after discussion with my direction and input after the patient was personally seen and examined by me. I have reviewed the chart and agree that the record accurately reflects by personal performance of the history, physical exam, data review, and medical decision-making, in the course for the patient. I have also personally directed the plan of care. 43 year old male with a past medical history of colitis ,alcohol and drug abuse was admitted with abdominal pain Abdomen/pelvis CT consistent with chronic colitis Patient abdominal pain has improved.He is tolerating diet.There is no sign of alcohol withdrawal at the time of discharge. Patient was evaoluated by GI and cardiology.GI has recommended out patient Colonoscopy. Cardiology has cleared patient for Colonoscopy. Patient has been advised to follow up with his GI doctor and PCP. Issue of ongoing alcohol and drug abuse was discussed in detail. Prognosis is guarded due to non compliance and ongoing drug abuse. Management plan was discussed in detail with patient. Education was provided.
[2018-05-07] MEDS ORDERED: Peg-Electrolyte Oral Soln 4L (Golytely) PO ONE (15:00)
[2018-05-08] MEDS ORDERED: Bisacodyl 5mg EC Tab PO ONE (12:00)
[2018-05-08] MEDS ORDERED: Peg-Electrolyte Oral Soln 4L (Golytely) PO ONE (15:00)
== END 2018-05-07 16:29 | disposition home or self-care (01) | DRG 813 ==
LOC: ED 18:54 → ERH 05-05 04:31 → 5RSO 05-05 06:17 → OBSVTOIN 05-06 07:54
PROVIDERS: ADMIT Internal Medicine; ATTEND Internal Medicine
DX: K52.9 Noninfective gastroenteritis and colitis, unspecified (principal); F10.239 Alcohol dependence with withdrawal, unspecified; E87.6 Hypokalemia; F14.10 Cocaine abuse, uncomplicated; F12.10 Cannabis abuse, uncomplicated; I10 Essential (primary) hypertension; E83.39 Other disorders of phosphorus metabolism; F41.9 Anxiety disorder, unspecified; Z91.19 Patient's noncompliance with other medical treatment and regimen; F17.210 Nicotine dependence, cigarettes, uncomplicated

== ENCOUNTER 2018-05-09 10:47 | Emergency (ER) | payer MEDICAID ==
[2018-05-09 11:03] VITALS: BMI 20.5
[2018-05-09 11:20] VITALS: TEMP 98.4; O2SAT 100
[2018-05-09] MEDS ORDERED: Sodium Chloride 0.9% 1,000 ML IV STA (11:31)
--- NOTE | 2018-05-09 11:36 | ED PDOC ---
Arrival/HPI - General Chief Complaint: Abdominal Pain Time Seen by Provider: 05/09/18 10:54 Historian: Patient - History of Present Illness Narrative History of Present Illness (Text): 05/09/18 11:30 Patient is a 43 year old male who presents to the Emergency Department complaining of diarrhea and associated abdominal pain. He reports that he drank EtOH last night and today started experiencing diarrhea. He mentions being scheduled for a colonoscopy in 5 days. Patient denies fevers, chills, cough, shortness of breath, chest pain, dyspnea on exertion, nausea, vomiting, neck/ back pain, urinary/bowel changes, headache, dizziness, or any other complaint. Time/Duration: 4-6 hours Symptom Onset: Sudden Symptom Course: Unchanged Context: Home Past Medical History - Provider Review Nursing Documentation Reviewed: Yes - Past History Past History: No Previous - Infectious Disease Hx of Infectious Diseases: None - Tetanus Immunization Tetanus Immunization: Unknown - Past Medical History Past Medical History: No Previous - Cardiac Hx Cardiac Disorders: Yes Hx Hypertension: Yes - Pulmonary Hx Respiratory Disorders: No Other/Comment: light smoker - Neurological Hx Neurological Disorder: Yes Hx Dizziness: Yes Other/Comment: neuropathy - HEENT Hx HEENT Disorder: No - Renal Hx Renal Disorder: No - Endocrine/Metabolic Hx Endocrine Disorders: No - Hematological/Oncological Hx Blood Disorders: No - Integumentary Hx Dermatological Disorder: No - Musculoskeletal/Rheumatological Hx Musculoskeletal Disorders: No Hx Falls: No - Gastrointestinal Hx Gastrointestinal Disorders: Yes Hx Colitis: Yes Other/Comment: Colitis - Genitourinary/Gynecological Hx Genitourinary Disorders: No - Psychiatric Hx Psychophysiologic Disorder: Yes Hx Anxiety: Yes Hx Depression: Yes Hx Substance Use: Yes (COCAINE/MARIJUANA LAST SNIFFED SATURDAY EVENING) Other/Comment: substance and alcohol abuse - Past Surgical History Past Surgical History: Non-Contributing - Surgical History Hx Musculoskeletal Surgery: Yes (R foot sx with rods/screws placed) Hx Orthopedic Surgery: Yes - Anesthesia Hx Anesthesia: Yes Hx Anesthesia Reactions: No Hx Malignant Hyperthermia: No - Suicidal Assessment Feels Threatened In Home Enviroment: No Family/Social History - Physician Review Nursing Documentation Reviewed: Yes Family/Social History: No Known Family HX Smoking Status: Current Some Days Smoker Hx Alcohol Use: Yes (ETOH ABUSE. PINT OF VODKA.2-3 BTLS OF VODKA DAILY. LAST DRANK SATU EVENING.) Hx Substance Use: Yes (COCAINE/MARIJUANA LAST SNIFFED SATURDAY EVENING) Substance used: marijuana & cocaine Hx Substance Use Treatment: No Allergies/Home Meds Allergies/Adverse Reactions: Allergies No Known Allergies Allergy (Verified 05/05/18 11:54) Home Medications: Home Meds Medication Instructions Recorded Confirmed PARoxetine [Paxil] 10 mg PO DAILY 05/09/18 05/09/18 Review of Systems - Physician Review All systems were reviewed & negative as marked: Yes - Review of Systems Constitutional: absent: Fevers Respiratory: absent: SOB Physical Exam - Physical Exam Narrative Physical Exam (Text): 05/09/18 11:37 Constitutional: No acute distress. Head: Normocephalic. Atraumatic. Eyes: PERRL. ENT: Moist mucous membranes. Neck: Supple. Cardiovascular: Regular rate. Chest: No tenderness. Respiratory: Clear to auscultation bilaterally. GI: Soft. diffuse abdominal tenderness. No guarding or rebound. Nondistended. Back: No CVA tenderness. Musculoskeletal: No tenderness or swelling of extremities. Skin: No rash. Neurologic: Alert, no focal deficit. Vital Signs Reviewed: Yes Vital Signs Temp Pulse Resp BP Pulse Ox 05/09/18 14:12 69 18 138/78 100 05/09/18 12:48 75 18 142/85 100 05/09/18 11:03 98.4 F 77 18 144/93 H 100 05/09/18 10:48 98.7 F 78 18 144/93 H 100 Temperature: Afebrile Blood Pressure: Hypertensive Pulse: Regular Respiratory Rate: Normal Appearance: Positive for: Well-Appearing Mental Status: Positive for: Alert and Oriented X 3 Medical Decision Making ED Course and Treatment: 05/09/18 11:38 Impression: Patient is a 43 year old male complaining of diarrhea and associated abdominal pain after drinking EtOH last night. Plan: --labs --blood work --Zofran -- IV fluids --Urinalysis -- Reassess and disposition Prior Visits: Notes and results from previous visits were reviewed. He was last seen at the Emergency Department on 05/04/18 and was diagnosed with abdominal pain and was hospitalized. Progress Notes: No vomiting in ED. Vitals stable. labs unremarkable. Patient discharged from ED within the last week and has colonoscopy scheduled for these persistent complaints. - Lab Interpretations Lab Results: 05/09/18 11:11 05/09/18 11:11 Lab Results 05/09/18 12:00: Urine Color Yellow, Urine Appearance Clear, Urine pH 7.0, Ur Specific [place] 1.010, Urine Protein Negative, Urine Glucose (UA) Negative, Urine Ketones Negative, Urine Blood Negative, Urine Nitrate Negative, Urine Bilirubin Negative, Urine Urobilinogen 0.2, Ur Leukocyte Esterase Negative 05/09/18 11:11: Sodium 143, Potassium 3.8, Chloride 104, Carbon Dioxide 21, Anion Gap 22 H, BUN 19, Creatinine 0.8, Est GFR ( Amer) > 60, Est GFR ( Non-Af Amer) > 60, Random Glucose 98, Calcium 9.9, Total Bilirubin 0.2, AST 50, ALT 50, Alkaline Phosphatase 55, Total Protein 8.1, Albumin 5.0 H, Globulin 3.1 , Albumin/Globulin Ratio 1.6, Lipase 87 05/09/18 11:11: WBC 3.6 L, RBC 4.13, Hgb 12.1 L, Hct 35.7 L, MCV 86.4, MCH 29.3 , MCHC 33.9, RDW 14.6 H, Plt Count 183, MPV 10.8, Gran % 45.9 L, Lymph % (Auto) 40.3 H, [place] % (Auto) 12.4 H, Eos % (Auto) 1.1 L, Baso % (Auto) 0.3, Gran # 1.63 , Lymph # (Auto) 1.4, [place] # (Auto) 0.4, Eos # (Auto) 0.0, Baso # (Auto) 0.01 - Medication Orders Current Medication Orders: Discontinued Medications Sodium Chloride (Sodium Chloride 0.9%) 1,000 mls @ 999 mls/hr IV .Q1H1M STA Stop: 05/09/18 12:31 Last Admin: 05/09/18 11:31 Dose: 999 mls/hr eMAR Start Stop Document 05/09/18 11:31 SF ([facility]05 [email or web address] Intravenous Solution Start Date 05/09/18 Start Time 11:31 End Date 05/09/18 End time 12:32 Total Infusion Time 61 Ondansetron HCl (Zofran Inj) 8 mg IVP STAT STA Stop: 05/09/18 11:32 Last Admin: 05/09/18 12:03 Dose: - Scribe Statement The provider has reviewed the documentation as recorded by the Scribe Lacho Baez Provider Scribe Attestation: All medical record entries made by the Scribe were at my direction and personally dictated by me. I have reviewed the chart and agree that the record accurately reflects my personal performance of the history, physical exam, medical decision making, and the department course for this patient. I have also personally directed, reviewed, and agree with the discharge instructions and disposition. Disposition/Present on Arrival - Present on Arrival Any Indicators Present on Arrival: No History of DVT/PE: No History of Uncontrolled Diabetes: No Urinary Catheter: No History of Decub. Ulcer: No History Surgical Site Infection Following: None - Disposition Have Diagnosis and Disposition been Completed?: Yes Diagnosis: Vomiting Disposition: HOME/ ROUTINE Disposition Time: 13:30 Patient Plan: Discharge Patient Problems: Current Active Problems Problem Status Onset Vomiting Acute Condition: STABLE Discharge Instructions (ExitCare): Nausea and Vomiting, Adult Additional Instructions: Keep your appointment for your colonoscopy. Prescriptions: Ondansetron ODT [Zofran ODT] 4 mg PO Q8 #12 odt Referrals: Griselda Heard MD [Primary Care Provider] - Follow up with primary Forms: Fetch It (Lithuanian)
[2018-05-09 11:45] LABS: BASO # 0.01 K/mm3 (0.0-2.0); BASO % 0.3 % (0.0-3.0); EOS % 1.1 % (1.5-5.0); GRAN # 1.63 (1.4-6.5); GRAN % 45.9 % (50.0-68.0); HEMOGLOBIN 12.1 g/dL (14.0-18.0); LYMPH # 1.4 (1.2-3.4); LYMPH % 40.3 % (22.0-35.0); MEAN CELL VOLUME 86.4 fl (80.0-105.0); MEAN CORPUSCULAR HEMOGLOBIN 29.3 pg (25.0-35.0); MEAN CORPUSCULAR HGB CONC 33.9 g/dl (31.0-37.0); MEAN PLATELET VOLUME 10.8 fl (7.0-11.0); MONO # 0.4 (0.1-0.6); MONO % 12.4 % (1.0-6.0); RBC 4.13 10^6/uL (3.5-6.1); RED CELL DISTRIBUTION WIDTH 14.6 % (11.5-14.5); WHITE BLOOD COUNT 3.6 10^3/ul (4.5-11.0)
[2018-05-09 11:55] LABS: ALB/GLOB RATIO 1.6 (1.1-1.8); ALT/SGPT 50 U/L (7-56); AST/SGOT 50 U/L (17-59); BLOOD UREA NITROGEN 19 mg/dL (7-21); CALCIUM 9.9 mg/dL (8.4-10.5); GFR AFRICAN-AMERICAN > 60; GFR NON-AFRICAN AMERICAN > 60; LIPASE 87 U/L (23-300)
[2018-05-09 12:26] LABS: URINE BILIRUBIN NEGATIVE (NEGATIVE); URINE BLOOD NEGATIVE (NEGATIVE); URINE GLUCOSE (UA) NEGATIVE (NEGATIVE); URINE LEUKOCYTE ESTERASE NEGATIVE Leu/uL (NEGATIVE); URINE PROTEIN NEGATIVE mg/dL (<30 mg/dL); URINE UROBILINOGEN 0.2 E.U./dL (<1 E.U./dL)
[2018-05-09 12:30] LABS: URINE APPEARANCE CLEAR (CLEAR); URINE COLOR YELLOW (YELLOW)
[2018-05-09 14:29] VITALS: BP 139/80; PULSE 66; RESP 17
== END 2018-05-09 14:28 | disposition home or self-care (01) ==
LOC: ED 10:47
DX: R11.10 Vomiting, unspecified (principal); I10 Essential (primary) hypertension
CPT/HCPCS: 80053; 81003; 83690; 85025; 96360; 99285; J2405; J7030

== ENCOUNTER 2018-05-09 16:38 | Emergency (ER) | payer MEDICAID ==
[2018-05-09 16:38] VITALS: BMI 20.5
== END 2018-05-09 16:52 | disposition left against medical advice (07) ==
LOC: ED 16:38
DX: Z02.89 Encounter for other administrative examinations (principal); F41.9 Anxiety disorder, unspecified

== ENCOUNTER 2018-06-15 15:54 | Observation (INO) | payer MEDICAID ==
[2018-06-15 16:05] VITALS: BMI 25.0
--- NOTE | 2018-06-15 16:07 | ED PDOC ---
Arrival/HPI - General Time Seen by Provider: 06/15/18 16:01 Historian: Patient, EMS EM Caveat: Intoxicated - History of Present Illness Narrative History of Present Illness (Text): 06/15/18 16:03 43 y/o male, pmh including htn/rhabdomylosis, psychiatric history including alcohol abuse, FS 140, +etoh on breath, nkda, biba for public intoxication. Limited HPI can be obtained as the patient is intoxicated. Pt. was found sleeping on the bench in the public, admits drinking, no fall or trauma, no head /neck/back injury, no homicidal or suicidal ideation, no auditory or visual hallucination, no other medical or psychological complaints. Past Medical History - Provider Review Nursing Documentation Reviewed: Yes - Past History Past History: No Previous - Infectious Disease Hx of Infectious Diseases: None - Tetanus Immunization Tetanus Immunization: Unknown - Past Medical History Past Medical History: No Previous - Cardiac Hx Cardiac Disorders: Yes Hx Hypertension: Yes - Pulmonary Hx Respiratory Disorders: No Other/Comment: light smoker - Neurological Hx Neurological Disorder: Yes Hx Dizziness: Yes Other/Comment: neuropathy - HEENT Hx HEENT Disorder: No - Renal Hx Renal Disorder: No - Endocrine/Metabolic Hx Endocrine Disorders: No - Hematological/Oncological Hx Blood Disorders: No - Integumentary Hx Dermatological Disorder: No - Musculoskeletal/Rheumatological Hx Musculoskeletal Disorders: No Hx Falls: No - Gastrointestinal Hx Gastrointestinal Disorders: Yes Hx Colitis: Yes Other/Comment: Colitis - Genitourinary/Gynecological Hx Genitourinary Disorders: No - Psychiatric Hx Psychophysiologic Disorder: Yes Hx Anxiety: Yes Hx Depression: Yes Hx Substance Use: Yes (COCAINE/MARIJUANA LAST SNIFFED Saturday) Other/Comment: substance and alcohol abuse - Past Surgical History Past Surgical History: Non-Contributing - Surgical History Hx Musculoskeletal Surgery: Yes (R foot sx with rods/screws placed) Hx Orthopedic Surgery: Yes - Anesthesia Hx Anesthesia: Yes Hx Anesthesia Reactions: No Hx Malignant Hyperthermia: No - Suicidal Assessment Feels Threatened In Home Enviroment: No Family/Social History - Physician Review Nursing Documentation Reviewed: Yes Family/Social History: Unknown Family HX Smoking Status: Current Some Days Smoker Hx Alcohol Use: Yes (ETOH ABUSE. PINT OF VODKA.2-3 BTLS OF VODKA DAILY. LAST DRANK EVENING.) Hx Substance Use: Yes (COCAINE/MARIJUANA LAST SNIFFED SATURDAY EVENING) Substance used: marijuana & cocaine Hx Substance Use Treatment: No Allergies/Home Meds Allergies/Adverse Reactions: Allergies No Known Allergies Allergy (Verified 05/05/18 11:54) Home Medications: Home Meds Medication Instructions Recorded Confirmed PARoxetine [Paxil] 10 mg PO DAILY 05/09/18 05/09/18 Review of Systems - Review of Systems Systems not reviewed;Unavailable: Intoxicated Physical Exam - Physical Exam Physical Exam Limitations: Intoxication Vital Signs Reviewed: Yes Vital Signs Temp Pulse Resp BP Pulse Ox 06/15/18 18:14 86 18 141/75 99 06/15/18 16:21 98.2 F 96 H 18 145/85 99 06/15/18 16:04 98.2 F 96 H 18 145/85 99 Temperature: Afebrile Blood Pressure: Normal Pulse: Regular Respiratory Rate: Normal Appearance: Positive for: Well-Appearing, Non-Toxic, Comfortable Pain Distress: None Mental Status: Positive for: other (intoxicated) - Systems Exam Head: Present: Atraumatic, Normocephalic, Other (no facial bony tenderness or swelling. ). No: Tenderness, Contusion, Swelling, Ecchymosis, Abrasion, Laceration Pupils: Present: PERRL Extroacular Muscles: Present: EOMI Conjunctiva: Present: Normal Ears: Present: NORMAL TM, Normal Canal. No: Erythema Mouth: Present: Moist Mucous Membranes Nose (External): Present: Atraumatic. No: Abrasion, Contusion Nose (Internal): Present: Normal Inspection, No Active Bleeding. No: Rhinorrhea , Septal Hematoma, Epistaxis Neck: Present: Normal Range of Motion Respiratory/Chest: Present: Clear to Auscultation, Good Air Exchange. No: Respiratory Distress, Accessory Muscle Use Cardiovascular: Present: Regular Rate and Rhythm, Normal S1, S2. No: Murmurs Abdomen: No: Tenderness, Distention, Peritoneal Signs, Rebound, Guarding Back: Present: Normal Inspection. No: CVA Tenderness, Midline Tenderness, Paraspinal Tenderness Upper Extremity: Present: Normal Inspection, Normal ROM, Neurovascularly Intact , Capillary Refill < 2s. No: Cyanosis, Edema, Tenderness, Swelling, Deformity Lower Extremity: Present: Normal Inspection, NORMAL PULSES, Normal ROM, Neurovascularly Intact. No: Edema, Tenderness, Swelling, Deformity, Temperature Abnormalties Neurological: Present: GCS=15, Motor Func Grossly Intact, Other (limited neurological exam as the patient is intoxicated) Skin: Present: Warm, Dry, Normal Color. No: Rashes Psychiatric: Present: Alert, Intoxicated Medical Decision Making ED Course and Treatment: 06/15/18 16:10 -labs -IV Banana bag -Observe and reassess 06/15/18 19:40 -chest xray show no active disease -Labs show Na 156 (IVF ordered), Mg 2.3 (normal bun/creatine), CK 791 (IVF ordered), Alcohol 508 (Banana bag ordered). -Pt. is intoxicated but able to have basic communication, labs/radiology result discussed with the patient, agreed to be admitted for observation. -Paged the admitting team. 06/15/18 20:10 -I spoke to the medical assistant dermatology and Dr. Tong, discussed about the case/labs/ radiology result, will admit the patient for observation. 06/15/18 21:02 -EKG: NSR @ 82 BPM, no ST elevation or depression, no T wave inversion, early repolarization on V2V3. - Lab Interpretations Lab Results: 06/15/18 16:55 06/15/18 17:20 Lab Results 06/15/18 20:00: Urine Opiates Screen Negative, Urine Methadone Screen Negative, Ur Barbiturates Screen Negative, Ur Phencyclidine Scrn Negative, Ur Amphetamines Screen Negative, U Benzodiazepines Scrn Negative, U Oth Cocaine Metabols Negative, U Cannabinoids Screen Negative 06/15/18 18:56: Alcohol, Quantitative 508 H* 06/15/18 17:20: Sodium 156 H*, Potassium 3.6, Chloride 114 H, Carbon Dioxide 25 , Anion Gap 21 H, BUN 16, Creatinine 0.7 L, Est GFR ( Amer) > 60, Est GFR (Non-Af Amer) > 60, Random Glucose 104, Calcium 9.0, Magnesium 2.3 H, Total Bilirubin 0.2, AST 49, ALT 34, Alkaline Phosphatase 54, Total Creatine Kinase 791 H, CK-MB (CK-2) 3.9 H, CK-MB (CK-2) % Cancelled, Total Protein 7.8, Albumin 4.8, Globulin 3.1, Albumin/Globulin Ratio 1.5 06/15/18 16:55: WBC 4.4 L D, RBC 4.27, Hgb 12.2 L, Hct 36.9 L, MCV 86.4, MCH 28.6, MCHC 33.1, RDW 15.0 H, Plt Count 210, MPV 10.3, Gran % 35.0 L, Lymph % ( Auto) 53.9 H, [place] % (Auto) 10.7 H, Eos % (Auto) 0.2 L, Baso % (Auto) 0.2, Gran # 1.54, Lymph # (Auto) 2.4, [place] # (Auto) 0.5, Eos # (Auto) 0.0, Baso # (Auto) 0.01 - RAD Interpretation Radiology Orders: 06/15/18 18:53 CHEST PORTABLE [RAD] Stat - Medication Orders Current Medication Orders: Discontinued Medications Multivitamins/Vitamin C 10 ml/Thiamine HCl 100 mg/ Folic Acid 1 mg/ Dextrose 1, 011.2 mls @ 1,000 mls/hr IV .Q1H1M ONE Stop: 06/15/18 17:08 Last Admin: 06/15/18 17:41 Dose: 1,000 mls/hr eMAR Start Stop Document 06/15/18 17:41 LA (Rec: 06/15/18 17:46 LA [id number]) Intravenous Solution Start Date 06/15/18 Start Time 17:46 End Date 06/15/18 End time 18:47 Total Infusion Time 61 Sodium Chloride (Sodium Chloride 0.9%) 1,000 mls @ 999 mls/hr IV .Q1H1M STA Stop: 06/15/18 20:06 Last Admin: 06/15/18 19:49 Dose: 999 mls/hr eMAR Start Stop Document 06/15/18 19:49 IT (Rec: 06/15/18 19:49 IT [id number]) Intravenous Solution Start Date 06/15/18 Start Time 19:49 - PA / CERAMIC TILE INSTALLER / Resident Statement MD/DO has reviewed & agrees with the documentation as recorded. Disposition/Present on Arrival - Present on Arrival Any Indicators Present on Arrival: No History of DVT/PE: No History of Uncontrolled Diabetes: No Urinary Catheter: No History of Decub. Ulcer: No History Surgical Site Infection Following: None - Disposition Have Diagnosis and Disposition been Completed?: Yes Diagnosis: Alcohol intoxication, Rhabdomyolysis, Hypernatremia Disposition: HOSPITALIZED Disposition Time: 16:11 Patient Plan: Admission, Observation, Telemetry Patient Problems: Current Active Problems Problem Status Onset Rhabdomyolysis Acute Alcohol intoxication Acute Hypernatremia Acute Condition: STABLE
[2018-06-15] MEDS ORDERED: Multivitamin (MVI) 10 ML, Thiamine 100 MG, Folic Acid 1 MG in Dextrose 5% In Water 1,00... IV ONE (16:08)
[2018-06-15 17:02] LABS: BASO # 0.01 K/mm3 (0.0-2.0); BASO % 0.2 % (0.0-3.0); EOS % 0.2 % (1.5-5.0); GRAN # 1.54 (1.4-6.5); HEMOGLOBIN 12.2 g/dL (14.0-18.0); LYMPH # 2.4 (1.2-3.4); LYMPH % 53.9 % (22.0-35.0); MEAN CELL VOLUME 86.4 fl (80.0-105.0); MEAN CORPUSCULAR HEMOGLOBIN 28.6 pg (25.0-35.0); MEAN CORPUSCULAR HGB CONC 33.1 g/dl (31.0-37.0); MEAN PLATELET VOLUME 10.3 fl (7.0-11.0); MONO # 0.5 (0.1-0.6); MONO % 10.7 % (1.0-6.0); RBC 4.27 10^6/uL (3.5-6.1); WHITE BLOOD COUNT 4.4 10^3/ul (4.5-11.0)
[2018-06-15 17:52] LABS: ALB/GLOB RATIO 1.5 (1.1-1.8); ALBUMIN 4.8 g/dL (3.0-4.8); ALT/SGPT 34 U/L (7-56); AST/SGOT 49 U/L (17-59); BLOOD UREA NITROGEN 16 mg/dL (7-21); GFR AFRICAN-AMERICAN > 60; GFR NON-AFRICAN AMERICAN > 60
[2018-06-15 18:01] LABS: CK-MB 3.9 ng/mL (0.0-3.6)
[2018-06-15] MEDS ORDERED: Sodium Chloride 0.9% 1,000 ML IV STA (19:06)
[2018-06-15 20:24] LABS: BARBITURATES, UR NEGATIVE (NEGATIVE); BENZODIAZEPINES, UR NEGATIVE (NEGATIVE); OPIATES, UR NEGATIVE (NEGATIVE); PHENCYCLIDINE, UR NEGATIVE (NEGATIVE)
[2018-06-15 21:44] LABS: AMYLASE 98 U/L (35-125); LIPASE 173 U/L (23-300)
[2018-06-15 23:08] LABS: URINE BILIRUBIN NEGATIVE (NEGATIVE); URINE BLOOD NEGATIVE (NEGATIVE); URINE GLUCOSE (UA) 100 mg/dL (NEGATIVE); URINE LEUKOCYTE ESTERASE NEGATIVE Leu/uL (NEGATIVE); URINE PROTEIN NEGATIVE mg/dL (<30 mg/dL); URINE UROBILINOGEN 0.2 E.U./dL (<1 E.U./dL)
[2018-06-15 23:09] LABS: URINE APPEARANCE CLEAR (CLEAR); URINE COLOR COLORLESS (YELLOW)
[2018-06-16] LABS: OSMOLALITY,URINE 527 mosm/kg (300-1000)
--- NOTE | 2018-06-16 00:08 | CP.PCM.HP ---
History of Present Illness - History of Present Illness History of Present Illness: Reji Charles, PGY-1 History and Physical for Hospitalist Service CC: ETOH intoxication/abd pain HPI: Mr. Craig is a 43 male with a PMHx of ETOH and substance abuse, colitis, and noncompliance who was brought in by ambulance after being found sleeping on a public bench. Patient reports that he drank more than a half bottle of vodka, and believes is being evaluated for dehydration. Patient could not respond to questions appropriately so could not offer a history of present illness, answer questions regarding medical history, or medications currently taking. Further information attained from previous record. PMHx: Anxiety, HTN, colitis and depression PSHx: R ankle with rods and screws NKDA Social: ETOH , cigarettes since age 12, 1/2 pack a day, cocaine on occasion Family Hx: negative for heart disease and cancer Medications: Paxil 10, Amlodipine 5 (Librium only when in hospital for ETOH withdrawal) PMD: Dr. Heard Present on Admission - Present on Admission Any Indicators Present on Admission: No Past Patient History - Infectious Disease Hx of Infectious Diseases: None - Tetanus Immunizations Tetanus Immunization: Unknown - Past Medical History & Family History Past Medical History?: Yes - Past Social History Smoking Status: Current Some Days Smoker - CARDIAC Hx Cardiac Disorders: Yes Hx Hypertension: Yes - PULMONARY Hx Respiratory Disorders: No Other/Comment: light smoker - NEUROLOGICAL Hx Neurological Disorder: Yes Hx Dizziness: Yes Other/Comment: neuropathy - HEENT Hx HEENT Problems: Yes (uses reading) - RENAL Hx Chronic Kidney Disease: No - ENDOCRINE/METABOLIC Hx Endocrine Disorders: No - HEMATOLOGICAL/ONCOLOGICAL Hx Blood Disorders: No - INTEGUMENTARY Hx Dermatological Problems: No - MUSCULOSKELETAL/RHEUMATOLOGICAL Hx Falls: Yes - GASTROINTESTINAL Hx Gastrointestinal Disorders: Yes (colitis) Other/Comment: Colitis - GENITOURINARY/GYNECOLOGICAL Hx Genitourinary Disorders: No - PSYCHIATRIC Hx Substance Use: (DENIES) - SURGICAL HISTORY Hx Surgeries: Yes Hx Musculoskeletal Surgery: Yes (R foot sx with rods/screws placed) Hx Orthopedic Surgery: Yes - ANESTHESIA Hx Anesthesia: Yes Hx Anesthesia Reactions: No Hx Malignant Hyperthermia: No Meds Allergies/Adverse Reactions: Allergies Allergy/AdvReac Type Severity Reaction Status Date / Time No Known Allergies Allergy Verified 05/05/18 11:54 Physical Exam - Additional Findings Additional findings: Physical Exam - Constitutional Appears: Agitated, tremulous - Head Exam Head Exam: ATRAUMATIC, NORMAL INSPECTION, NORMOCEPHALIC - Eye Exam Eye Exam: EOMI grossly intact, but patient unable to follow directions. Normal appearance. Pupil Exam: PERRL Additional comments: Mild scleral icterus - ENT Exam ENT Exam: Mucous Membranes Dry - Neck Exam Neck exam: Positive for: Normal Inspection. Negative for: Tenderness - Respiratory Exam Respiratory Exam: Clear to Auscultation Bilateral, NORMAL BREATHING PATTERN - Cardiovascular Exam Cardiovascular Exam: REGULAR RHYTHM, +S1, +S2 - GI/Abdominal Exam GI & Abdominal Exam: Guarding, Hyperactive Bowel Sounds, TTP in all 4 quadrants , no rebound - Neurological Exam Neurological exam: Alert, CN II-XII Intact, Oriented x1 Results - Vital Signs Recent Vital Signs: Last Vital Signs Temp 97.8 F 06/15/18 23:41 Pulse 84 06/15/18 23:41 Resp 20 06/15/18 23:41 BP 121/90 06/15/18 23:41 Pulse Ox 98 06/15/18 23:41 - Labs Result Diagrams: 06/15/18 16:55 06/15/18 17:20 Labs: Laboratory Results - last 24 hr 06/15/18 06/15/18 06/15/18 21:25 21:25 21:25 Amylase Lipase Urine Color Colorless Urine Appearance Clear Urine pH 6.0 Ur Specific [place] 1.010 Urine Protein Negative Urine Glucose (UA) 100 H Urine Ketones Negative Urine Blood Negative Urine Nitrate Negative Urine Bilirubin Negative Urine Urobilinogen 0.2 Ur Leukocyte Esterase Negative Ur Random Creatinine 40 Ur Random Sodium 128 06/15/18 21:33 Amylase 98 Lipase 173 Urine Color Urine Appearance Urine pH Ur Specific [place] Urine Protein Urine Glucose (UA) Urine Ketones Urine Blood Urine Nitrate Urine Bilirubin Urine Urobilinogen Ur Leukocyte Esterase Ur Random Creatinine Ur Random Sodium Assessment & Plan - Assessment and Plan (Free Text) Assessment: Assessment: Mr Craig is a 43 year old Male who presented with alcohol intoxication s/p consuming vodka and beer. Abdominal Pain 2/2 substance abuse (ETOH) vs pancreatitis - last consumption of ETOH was this afternoon, cocaine on Saturday - amylase/lipase 98/173 - D5W @ 125 cc/hr - EKG NSR @ 82 BPM, no ST elevation or depression, no T wave inversions - UDS negative except for ETOH - Regular diet - will monitor tolerance Anion Gap Acidosis 2/2 Alcohol Consumption vs dehydration - patient has been admitted for ETOH intoxication and withdrawals in the past, for which patient receives Librium while in hospital - Chloride 114, anion gap of 21 likely secondary to contraction - PO Thiamine, multivitamin, Folate ordered - CIWA protocol initiated as well as fall and seizure precautions - U tox + for etoh 508, otherwise negative - Librium 25 mg q 8 and Ativan 2 q4 prn for withdrawal symptoms - f/u AM labs, Mg, lipid panel Hypernatremia - Na 156 - water deficit calculated to be 4 liters - currently on d5w @ 125 cc/hr - will monitor with f/u BMP, urine lytes, urine osmol, and AM labs - look to correct at rate of no higher than 1.0 mmol/hr Rhabdomyolysis - CK 791 - patient found lying outside for unknown length of time - on fluids - will continue to monitor labs - PT for deconditioning Sugar control - UA positive for glucose - POC 100 - D5W 125 cc/hr - f/u a1c, tsh - will continue to monitor HTN: - continue Amlodipine 5 as per home med Anxiety: - continue Paxil 10 as per home med Prophylaxis - SCD - Protonix 40 IV Patient seen, case reviewed and plan agreed upon with Dr. Ran Charles, PGY-1
[2018-06-16 00:50] LABS: BLOOD UREA NITROGEN 12 mg/dL (7-21); CALCIUM 7.9 mg/dL (8.4-10.5); GFR AFRICAN-AMERICAN > 60; GFR NON-AFRICAN AMERICAN > 60
[2018-06-16 06:45] VITALS: O2SAT 100
[2018-06-16 06:52] LABS: BASO # 0.01 K/mm3 (0.0-2.0); BASO % 0.3 % (0.0-3.0); EOS % 0.3 % (1.5-5.0); GRAN # 1.07 (1.4-6.5); GRAN % 35.6 % (50.0-68.0); HEMOGLOBIN 11.6 g/dL (14.0-18.0); LYMPH # 1.7 (1.2-3.4); LYMPH % 56.8 % (22.0-35.0); MEAN CELL VOLUME 86.2 fl (80.0-105.0); MEAN CORPUSCULAR HEMOGLOBIN 28.5 pg (25.0-35.0); MEAN PLATELET VOLUME 9.3 fl (7.0-11.0); MONO # 0.2 (0.1-0.6); RBC 4.07 10^6/uL (3.5-6.1); RED CELL DISTRIBUTION WIDTH 15.2 % (11.5-14.5)
[2018-06-16 07:04] LABS: ALB/GLOB RATIO 1.5 (1.1-1.8); ALBUMIN 4.4 g/dL (3.0-4.8); ALT/SGPT 38 U/L (7-56); AST/SGOT 41 U/L (17-59); BLOOD UREA NITROGEN 13 mg/dL (7-21); CALCIUM 8.2 mg/dL (8.4-10.5); GFR AFRICAN-AMERICAN > 60; GFR NON-AFRICAN AMERICAN > 60; HDL CHOLESTEROL 79 mg/dL (29-60)
[2018-06-16 07:15] LABS: LDL CHOLESTEROL 43 mg/dL (0-129)
[2018-06-16] MEDS: Multivitamin Therapeutic Tab PO SCH (08:11)
--- NOTE | 2018-06-16 08:40 | RAD ---
Date of service: 06/15/2018 HISTORY: medical clearance COMPARISON: 04/20/2018. FINDINGS: LUNGS: The lungs are well inflated and clear. PLEURA: No significant pleural effusion identified, no pneumothorax apparent. CARDIOVASCULAR: Normal. OSSEOUS STRUCTURES: No significant abnormalities. VISUALIZED UPPER ABDOMEN: Normal. OTHER FINDINGS: None. IMPRESSION: No active pulmonary disease.
--- NOTE | 2018-06-16 09:52 | CARD ---
APPROVED REPORT Date of service: 06/15/2018 EKG Measurement Heart [id number] <Conclusion> Normal sinus rhythm Minimal voltage criteria for LVH, may be normal variant Nonspecific T wave abnormality Abnormal ECG
--- NOTE | 2018-06-16 12:38 | CP.PCM.PN ---
<Aryan Sow - Last Filed: 06/16/18 13:56> Subjective - Date & Time of Evaluation Date of Evaluation: 06/16/18 Time of Evaluation: 08:00 - Subjective Subjective: Internal Medicine Progress Note for Dr. Melody Sow PGY1 43M seen and evaluated at bedside this morning. No acute events overnight. Patient was in and out of sleep and was mumbling. He does not remember why they brought him to the hospital however he is aware of person, place, and time. He complains of some left lower quadrant abdominal pain for which he had a colonoscopy done at [facility] a few weeks ago. He is not aware of the results at this time. Denies fever, chills, nausea, vomiting, diarrhea, chest pain, palpitations, shortness of breath, cough, or urinary symptoms. Objective - Vital Signs/Intake and Output Vital Signs (last 24 hours): Temp Pulse Resp BP Pulse Ox 97.2 F L 92 H 20 127/87 100 06/16/18 11:57 06/16/18 11:57 06/16/18 11:57 06/16/18 11:57 06/16/18 06:00 Intake and Output: 06/16/18 06/16/18 06:59 18:59 Intake Total 1500 Balance 1500 - Medications Medications: Current Medications Amlodipine Besylate (Norvasc) 5 mg PO DAILY [facility] Last Admin: 06/16/18 09:39 Dose: 5 mg Chlordiazepoxide (Librium) 25 mg PO Q8H [facility] PRN Reason: Protocol Last Admin: 06/16/18 04:57 Dose: 25 mg Folic Acid (Folic Acid) 1 mg PO DAILY [facility] Last Admin: 06/16/18 09:40 Dose: 1 mg Dextrose (Dextrose 5% In Water) 1,000 mls @ 125 mls/hr IV .Q8H [facility] Last Admin: 06/16/18 09:51 Dose: 125 mls/hr Lorazepam (Ativan) 2 mg IVP Q4H PRN; Protocol PRN Reason: Symptoms of alcohol withdrawl Last Admin: 06/16/18 09:39 Dose: 2 mg Multivitamins (Thera Tab) 1 tab PO 0800 [facility] Last Admin: 06/16/18 08:11 Dose: 1 tab Pantoprazole Sodium (Protonix Ec Tab) 40 mg PO ACB [facility] Paroxetine HCl (Paxil) 10 mg PO DAILY [facility] Last Admin: 06/16/18 09:40 Dose: 10 mg Thiamine HCl (Vitamin B1 Tab) 100 mg PO DAILY [facility] Last Admin: 06/16/18 09:40 Dose: 100 mg - Labs Labs: 06/16/18 06:40 06/16/18 06:40 - Constitutional Appears: Well, Non-toxic, No Acute Distress - Head Exam Head Exam: ATRAUMATIC, NORMAL INSPECTION, NORMOCEPHALIC - Eye Exam Eye Exam: EOMI Pupil Exam: PERRL - ENT Exam ENT Exam: Mucous Membranes Moist - Respiratory Exam Respiratory Exam: Clear to Ausculation Bilateral, NORMAL BREATHING PATTERN. absent: Wheezes - Cardiovascular Exam Cardiovascular Exam: REGULAR RHYTHM, +S1, +S2. absent: Murmur - GI/Abdominal Exam GI & Abdominal Exam: Soft, Normal Bowel Sounds. absent: Tenderness - Rectal Exam Rectal Exam: Deferred - Neurological Exam Neurological Exam: Alert, Awake, Oriented x3 - Skin Skin Exam: Dry, Intact, Normal Color, Warm Assessment and Plan - Assessment and Plan (Free Text) Assessment: 43M, PMH of alcohol and substance abuse, colitis, anxiety, depression, and HTN, brought in by EMS after being found on a public bench admitted for observation. Plan: 1. Abdominal Pain - Likely secondary to substance abuse (ETOH) vs colitis - States he had a colonoscopy done at [facility] a few weeks ago. Recommend following up with PMD Dr. Heard regarding results and any additional work up as necessary - last consumption of ETOH was yesterday, cocaine on Saturday - EKG NSR @ 82 BPM, no ST elevation or depression, no T wave inversions - UDS negative except for ETOH - Continue D5W @ 125 cc/hr - Continue Regular diet 2. Anion Gap Acidosis, improving - Likely secondary to Alcohol Consumption vs dehydration - patient has been admitted for ETOH intoxication and withdrawals in the past, for which patient receives Librium while in hospital - Continue Thiamine, multivitamin, Folate - CIWA protocol, 2 today - Seizure and Fall precautions - Librium 25 mg Q8 and Ativan 2 Q4 prn for withdrawal symptoms - Continue to monitor 3. Hypernatremia, resolved - Na 145 today - Continue D5W at 125 cc/hr - will monitor with f/u BMP, urine lytes, urine osmol, and AM labs - look to correct at rate of no higher than 1.0 mmol/hr 4. Rhabdomyolysis - CK 791 - patient found lying outside for unknown length of time - Continue IV fluids - PT eval pending for deconditioning 5. History of HTN - continue home medication: Amlodipine 5mg 6. History of Anxiety - continue home medication Paxil 10 - Psych consulted, recommendations appreciated 7. Substance Abuse - Alcohol level 508 at admission - Alcohol cessation encouraged at length - Psych consulted, recommendations appreciated DVT: SCD GI: Protonix 40 IV Diet: Regular Patient seen, case reviewed and plan agreed upon with Dr. Oliver <Yi Oliver - Last Filed: 06/16/18 18:35> Objective - Vital Signs/Intake and Output Vital Signs (last 24 hours): Temp Pulse Resp BP Pulse Ox 98.6 F 98 H 20 141/94 H 100 06/16/18 18:00 06/16/18 18:00 06/16/18 18:00 06/16/18 18:00 06/16/18 06:00 Intake and Output: 06/16/18 06/16/18 06:59 18:59 Intake Total 2480 Output Total 500 Balance 1979 - Medications Medications: Current Medications Amlodipine Besylate (Norvasc) 5 mg PO DAILY [facility] Last Admin: 06/16/18 09:39 Dose: 5 mg Chlordiazepoxide (Librium) 25 mg PO Q8H [facility] PRN Reason: Protocol Last Admin: 06/16/18 15:06 Dose: 25 mg Folic Acid (Folic Acid) 1 mg PO DAILY [facility] Last Admin: 06/16/18 09:40 Dose: 1 mg Dextrose (Dextrose 5% In Water) 1,000 mls @ 125 mls/hr IV .Q8H [facility] Last Admin: 06/16/18 17:47 Dose: 125 mls/hr Lorazepam (Ativan) 2 mg IVP Q4H PRN; Protocol PRN Reason: Symptoms of alcohol withdrawl Last Admin: 06/16/18 17:44 Dose: 2 mg Multivitamins (Thera Tab) 1 tab PO 0800 [facility] Last Admin: 06/16/18 08:11 Dose: 1 tab Pantoprazole Sodium (Protonix Ec Tab) 40 mg PO ACB [facility] Paroxetine HCl (Paxil) 10 mg PO DAILY [facility] Last Admin: 06/16/18 09:40 Dose: 10 mg Thiamine HCl (Vitamin B1 Tab) 100 mg PO DAILY [facility] Last Admin: 06/16/18 09:40 Dose: 100 mg Attending/Attestation - Attestation I have personally seen and examined this patient.: Yes I have fully participated in the care of the patient.: Yes I have reviewed all pertinent clinical information, including history, physical exam and plan: Yes Notes (Text): 06/16/18 18:29 Attending note; Patient seen and examined with resident. Patient is alert and awake. Denies any pain. Denies any nausea, vomiting. Tolerating diet. Complaining of depression. Patient has flat affect. Patient is a 43-year-old male with PMH of alcohol and substance abuse, colitis , anxiety, depression, and HTN, brought in by EMS after being found on a public bench Intoxicated. Patient is currently alert and awake. Denies any complaints. Continue to monitor with CIWA protocol. Hypernatremia resolved. Continue IV fluids. Chronic alcohol abuse ; complete alcohol cessation is strongly advised .Continue multivitamin, thiamine, folic acid. Depression; psychiatric evaluation requested. History of colitis in the past. Currently no active issues. Needs outpatient follow up with GI. Upon discharge the patient will follow-up with PMD Dr. Heard.
[2018-06-17] MEDS ORDERED: Pantoprazole 40 mg EC Tab PO SCH (07:30)
[2018-06-17 07:40] LABS: BASO # 0.01 K/mm3 (0.0-2.0); BASO % 0.2 % (0.0-3.0); EOS % 0.9 % (1.5-5.0); GRAN # 2.49 (1.4-6.5); GRAN % 55.2 % (50.0-68.0); HEMOGLOBIN 11.9 g/dL (14.0-18.0); LYMPH # 1.4 (1.2-3.4); LYMPH % 31.9 % (22.0-35.0); MEAN CELL VOLUME 84.8 fl (80.0-105.0); MEAN CORPUSCULAR HEMOGLOBIN 28.3 pg (25.0-35.0); MEAN CORPUSCULAR HGB CONC 33.4 g/dl (31.0-37.0); MEAN PLATELET VOLUME 10.9 fl (7.0-11.0); MONO # 0.5 (0.1-0.6); MONO % 11.8 % (1.0-6.0); RBC 4.2 10^6/uL (3.5-6.1); RED CELL DISTRIBUTION WIDTH 14.4 % (11.5-14.5); WHITE BLOOD COUNT 4.5 10^3/ul (4.5-11.0)
--- NOTE | 2018-06-17 07:45 | CP.PCM.PN ---
Subjective - Date & Time of Evaluation Date of Evaluation: 06/17/18 Time of Evaluation: 07:43 Objective - Vital Signs/Intake and Output Vital Signs (last 24 hours): Temp Pulse Resp BP Pulse Ox 98.5 F 89 20 132/97 H 100 06/17/18 06:00 06/17/18 06:00 06/17/18 06:00 06/17/18 06:00 06/17/18 06:00 Intake and Output: 06/17/18 06/17/18 06:59 18:59 Intake Total 660 Output Total 2590 Balance -1930 - Medications Medications: Current Medications Amlodipine Besylate (Norvasc) 5 mg PO DAILY [facility] Last Admin: 06/16/18 09:39 Dose: 5 mg Chlordiazepoxide (Librium) 25 mg PO Q8H [facility] PRN Reason: Protocol Last Admin: 06/17/18 06:24 Dose: 25 mg Folic Acid (Folic Acid) 1 mg PO DAILY [facility] Last Admin: 06/16/18 09:40 Dose: 1 mg Dextrose (Dextrose 5% In Water) 1,000 mls @ 125 mls/hr IV .Q8H [facility] Last Admin: 06/17/18 01:58 Dose: 125 mls/hr Lorazepam (Ativan) 2 mg IVP Q4H PRN; Protocol PRN Reason: Symptoms of alcohol withdrawl Last Admin: 06/16/18 17:44 Dose: 2 mg Multivitamins (Thera Tab) 1 tab PO 0800 [facility] Last Admin: 06/16/18 08:11 Dose: 1 tab Pantoprazole Sodium (Protonix Ec Tab) 40 mg PO ACB [facility] Paroxetine HCl (Paxil) 10 mg PO DAILY [facility] Last Admin: 06/16/18 09:40 Dose: 10 mg Thiamine HCl (Vitamin B1 Tab) 100 mg PO DAILY [facility] Last Admin: 06/16/18 09:40 Dose: 100 mg - Labs Labs: 06/17/18 06:30 - Constitutional Appears: Well, No Acute Distress - Head Exam Head Exam: ATRAUMATIC, NORMAL INSPECTION, NORMOCEPHALIC - Eye Exam Eye Exam: EOMI, Normal appearance, PERRL Pupil Exam: NORMAL ACCOMODATION, PERRL - ENT Exam ENT Exam: Mucous Membranes Moist, Normal Exam - Neck Exam Neck Exam: Full ROM, Normal Inspection. absent: Lymphadenopathy - Respiratory Exam Respiratory Exam: Clear to Ausculation Bilateral, NORMAL BREATHING PATTERN - Cardiovascular Exam Cardiovascular Exam: REGULAR RHYTHM, +S1, +S2. absent: Murmur - GI/Abdominal Exam GI & Abdominal Exam: Soft, Tenderness, Normal Bowel Sounds Additional comments: milder lower abdominal tenderness - Extremities Exam Extremities Exam: Full ROM, Normal Capillary Refill, Normal Inspection. absent : Joint Swelling, Pedal Edema - Back Exam Back Exam: NORMAL INSPECTION - Neurological Exam Neurological Exam: Alert, Awake, CN II-XII Intact, Normal Gait, Oriented x3 - Psychiatric Exam Psychiatric exam: Anxious - Skin Skin Exam: Dry, Intact, Normal Color, Warm Assessment and Plan - Assessment and Plan (Free Text) Assessment: 43y/o male with PMH of HTN, alcohol and substance abuse, colitis, anxiety, depression brought in by EMS after being found on a public bench admitted alcohol intoxication. Plan: 1. Abdominal Pain - Likely secondary to substance abuse (ETOH) vs colitis - UDS positive for ETOH on admission - Continue D5W @ 125 cc/hr - Continue Regular diet 2. Anion Gap Acidosis, improving - Likely secondary to Alcohol Consumption vs dehydration - patient has been admitted for ETOH intoxication and withdrawals in the past, for which patient receives Librium while in hospital - Continue Thiamine, multivitamin, Folate - CIWA protocol, 0 today - Seizure and Fall precautions - Librium 25 mg Q8 and Ativan 2 Q4 prn for withdrawal symptoms - Continue to monitor . Rhabdomyolysis - patient found lying outside for unknown length of time - CK 791 - Continue IV fluids - PT eval pending for deconditioning . History of HTN - continue home medication: Amlodipine 5mg . History of Anxiety - continue home medication Paxil 10 - Psych consulted, recommendations appreciated . Substance Abuse - Alcohol level 508 at admission - Alcohol cessation encouraged at length - Psych consulted, recommendations appreciated DVT: SCD GI: Protonix 40 IV Diet: Regular Case reviewed and reviewed with Dr. Oliver
[2018-06-17 07:56] LABS: ALB/GLOB RATIO 1.5 (1.1-1.8); ALBUMIN 4.4 g/dL (3.0-4.8); ALT/SGPT 34 U/L (7-56); AST/SGOT 47 U/L (17-59); BLOOD UREA NITROGEN 10 mg/dL (7-21); CALCIUM 9.6 mg/dL (8.4-10.5); GFR AFRICAN-AMERICAN > 60; GFR NON-AFRICAN AMERICAN > 60
[2018-06-17] MEDS: Multivitamin Therapeutic Tab PO SCH (08:23)
[2018-06-17] MEDS ORDERED: Potassium Chloride 20 mEq ER Tab PO STA (09:02)
[2018-06-17] MEDS ORDERED: Magnesium Sulfate 2 gm/50 ml 2 GM/50 ML BAG IVPB ONE (10:12)
[2018-06-17 11:53] VITALS: BP 122/72; PULSE 80; RESP 21; TEMP 98.7
[2018-06-17] MEDS ORDERED: Potassium Chloride 20 mEq ER Tab PO ONE (13:00)
--- NOTE | 2018-06-17 17:31 | CP.PCM.DIS ---
<LucasnessDominguez - Last Filed: 06/17/18 19:32> Provider - Provider Date of Admission: 06/15/18 20:11 Attending physician: Yi Oliver MD Primary care physician: none Time Spent in preparation of Discharge (in minutes): 45 Hospital Course - Lab Results Lab Results: Most Recent Lab Values WBC 4.5 10^3/ul (4.5-11.0) D 06/17/18 06:30 RBC 4.20 10^6/uL (3.5-6.1) 06/17/18 06:30 Hgb 11.9 g/dL (14.0-18.0) L 06/17/18 06:30 Hct 35.6 % (42.0-52.0) L 06/17/18 06:30 MCV 84.8 fl (80.0-105.0) 06/17/18 06:30 MCH 28.3 pg (25.0-35.0) 06/17/18 06:30 MCHC 33.4 g/dl (31.0-37.0) 06/17/18 06:30 RDW 14.4 % (11.5-14.5) 06/17/18 06:30 Plt Count 201 10^3/uL (120.0-450.0) 06/17/18 06:30 MPV 10.9 fl (7.0-11.0) 06/17/18 06:30 Gran % 55.2 % (50.0-68.0) 06/17/18 06:30 Lymph % (Auto) 31.9 % (22.0-35.0) 06/17/18 06:30 Tift % (Auto) 11.8 % (1.0-6.0) H 06/17/18 06:30 Eos % (Auto) 0.9 % (1.5-5.0) L 06/17/18 06:30 Baso % (Auto) 0.2 % (0.0-3.0) 06/17/18 06:30 Gran # 2.49 (1.4-6.5) 06/17/18 06:30 Lymph # (Auto) 1.4 (1.2-3.4) 06/17/18 06:30 Tift # (Auto) 0.5 (0.1-0.6) 06/17/18 06:30 Eos # (Auto) 0.0 (0.0-0.7) 06/17/18 06:30 Baso # (Auto) 0.01 K/mm3 (0.0-2.0) 06/17/18 06:30 Sodium 138 mmol/L (132-148) 06/17/18 06:30 Potassium 3.2 mmol/L (3.6-5.0) L 06/17/18 06:30 Chloride 99 mmol/L (98-107) 06/17/18 06:30 Carbon Dioxide 27 mmol/L (21-33) 06/17/18 06:30 Anion Gap 15 (10-20) 06/17/18 06:30 BUN 10 mg/dL (7-21) 06/17/18 06:30 Creatinine 0.8 mg/dl (0.8-1.5) 06/17/18 06:30 Est GFR ( Amer) > 60 06/17/18 06:30 Est GFR (Non-Af Amer) > 60 06/17/18 06:30 POC Glucose (mg/dL) 140 mg/dL (65-110) H 06/15/18 16:09 Random Glucose 101 mg/dL (70-110) 06/17/18 06:30 Hemoglobin A1c 5.7 % (4.2-6.5) 06/16/18 06:40 Calcium 9.6 mg/dL (8.4-10.5) 06/17/18 06:30 Magnesium 1.5 mg/dL (1.7-2.2) L 06/17/18 06:30 Total Bilirubin 0.2 mg/dL (0.2-1.3) 06/17/18 06:30 AST 47 U/L (17-59) 06/17/18 06:30 ALT 34 U/L (7-56) 06/17/18 06:30 Alkaline Phosphatase 47 U/L (38-126) 06/17/18 06:30 Total Creatine Kinase 791 U/L (35-230) H 06/15/18 17:20 CK-MB (CK-2) 3.9 ng/mL (0.0-3.6) H 06/15/18 17:20 CK-MB (CK-2) % Cancelled 06/15/18 17:20 Total Protein 7.3 g/dL (5.8-8.3) 06/17/18 06:30 Albumin 4.4 g/dL (3.0-4.8) 06/17/18 06:30 Globulin 2.9 gm/dL 06/17/18 06:30 Albumin/Globulin Ratio 1.5 (1.1-1.8) 06/17/18 06:30 Triglycerides 210 mg/dL (35-160) H 06/16/18 06:40 Cholesterol 152 mg/dL (130-200) 06/16/18 06:40 LDL Cholesterol Direct 43 mg/dL (0-129) 06/16/18 06:40 HDL Cholesterol 79 mg/dL (29-60) H 06/16/18 06:40 Amylase 98 U/L (35-125) 06/15/18 21:33 Lipase 173 U/L (23-300) 06/15/18 21:33 Free T4 0.92 ng/dL (0.78-2.19) 06/17/18 06:30 TSH 3rd Generation 0.07 mIU/mL (0.46-4.68) L 06/16/18 06:40 Urine Color Colorless (YELLOW) 06/15/18 21:25 Urine Appearance Clear (CLEAR) 06/15/18 21:25 Urine pH 6.0 (4.7-8.0) 06/15/18 21:25 Ur Specific Gypsy 1.010 (1.005-1.035) 06/15/18 21:25 Urine Protein Negative mg/dL (<30 mg/dL) 06/15/18 21:25 Urine Glucose (UA) 100 mg/dL (NEGATIVE) H 06/15/18 21:25 Urine Ketones Negative mg/dL (NEGATIVE) 06/15/18 21:25 Urine Blood Negative (NEGATIVE) 06/15/18 21:25 Urine Nitrate Negative (NEGATIVE) 06/15/18 21:25 Urine Bilirubin Negative (NEGATIVE) 06/15/18 21:25 Urine Urobilinogen 0.2 E.U./dL (<1 E.U./dL) 06/15/18 21:25 Ur Leukocyte Esterase Negative Georges/uL (NEGATIVE) 06/15/18 21:25 Urine Osmolality 527 mosm/kg (300-1000) 06/15/18 21:25 Ur Random Creatinine 40 mg/dL 06/15/18 21:25 Ur Random Sodium 128 meq/L 06/15/18 21:25 Urine Chloride 136 mmol/L (32-290) 06/15/18 21:25 Urine Opiates Screen Negative (NEGATIVE) 06/15/18 20:00 Urine Methadone Screen Negative (NEGATIVE) 06/15/18 20:00 Ur Barbiturates Screen Negative (NEGATIVE) 06/15/18 20:00 Ur Phencyclidine Scrn Negative (NEGATIVE) 06/15/18 20:00 Ur Amphetamines Screen Negative (NEGATIVE) 06/15/18 20:00 U Benzodiazepines Scrn Negative (NEGATIVE) 06/15/18 20:00 U Oth Cocaine Metabols Negative (NEGATIVE) 06/15/18 20:00 U Cannabinoids Screen Negative (NEGATIVE) 06/15/18 20:00 Alcohol, Quantitative 508 mg/dL (0-10) H* 06/15/18 18:56 - Hospital Course Hospital Course: On admission: 43 year old male with PMH of alcohol and substance abuse, colitis, anxiety, depression, and HTN, brought in by EMS after being found on a public bench admitted for observation. Blood alcohol level was high, patient admitted to using cocaine few days ago. Patient has been admitted for ETOH intoxication and withdrawals in the past. Hospital course: Patient got admitted for the management of acute abdominal pain in the setting of alcohol intoxication. EKG showed NSR @ 82 BPM, no ST elevation or depression , no T wave inversions. Urine drug screen was negative except for ETOH of 508. Patient was given IV fluids, librium 25 mg Q8 and Ativan 2 Q4 prn for withdrawal symptoms. Thiamine, multivitamin, Folate given. CIWA protocal applied. Patient was found to have anion Gap Acidosis, hypernatremia, IV fluids given, electrolytes monitored and repleted. Patient had rhabdomyolytis for lying outside for unknown length of time with CK of 791. No urinary symptoms or dark urine reported. Patient had a history of hypertension, home medication Amlodipine 5mg continued. Patient had a history of Anxiety, home medication Paxil 10 continued. Today CIWA score was zero, patient did not have signs of tremors, tongue fasciculation, nausea, vomiting or seizure. His anion gap closed , electrolytes repleted. Physical therapy assessed the patient and was cleared for home discharge. Patient was medically optimized to be discharged home. On discharge: Patient to establish a PMD and follow up within 3-5 days upon discharge Take your medications as prescribed to you, new medications on this admission include - Librium 10mg PO TID Cease alcohol consumption encouraged at length with the patient Exercise and diet regimen counseling, low sodium diet discussed with patient If symptoms reoccur, return to nearest emergency department Discharge planning was conducted with patient including outpatient follow up, medication reconciliation, and signs and symptoms to be aware of for return to emergency department. Patient was in understanding and able to recall instructions back to primary team. Patient was deemed to be medically optimized for discharge by consultants involved in her care as well as her primary medical team. For further details regarding hospital stay please refer to full chart. - Date & Time of H&P Date of H&P: 06/17/18 Time of H&P: 14:45 Discharge Exam - Head Exam Head Exam: ATRAUMATIC, NORMAL INSPECTION, NORMOCEPHALIC - Eye Exam Eye Exam: EOMI, Normal appearance, PERRL Pupil Exam: NORMAL ACCOMODATION, PERRL - ENT Exam ENT Exam: Normal Exam - Neck Exam Neck exam: Full Rom, Normal Inspection - Respiratory Exam Respiratory Exam: Clear to PA & Lateral, NORMAL BREATHING PATTERN - Cardiovascular Exam Cardiovascular Exam: REGULAR RHYTHM, +S1, +S2 - GI/Abdominal Exam GI & Abdominal Exam: Normal Bowel Sounds - Rectal Exam Rectal Exam: Deferred - Extremities Exam Extremities exam: full ROM, normal capillary refill, pedal pulses present - Back Exam Back exam: NORMAL INSPECTION - Neurological Exam Neurological exam: Alert, CN II-XII Intact, Normal Gait, Oriented x3, Reflexes Normal - Psychiatric Exam Psychiatric exam: Normal Affect, Normal Mood - Skin Skin Exam: Dry, Intact, Normal Color, Warm Discharge Plan - Discharge Medications Prescriptions: chlordiazePOXIDE [Librium] 10 mg PO TID 3 Days #9 cap - Follow Up Plan Condition: STABLE Disposition: HOME/ ROUTINE Instructions: Rhabdomyolysis (DC), Alcohol Abuse and Alcoholism (DC), Alcohol Intoxication (DC), Acute Abdominal Pain (DC) Additional Instructions: Follow up with your primary care physician with 3-5 days upon discharge Take your medications as prescribed to you, new medications on this admission include - Librium 10mg PO TID Cease alcohol consumption <Yi Oliver - Last Filed: 06/18/18 14:04> Provider - Provider Date of Admission: 06/15/18 20:11 Attending physician: Yi Oliver MD Hospital Course - Lab Results Lab Results: Most Recent Lab Values WBC 4.5 10^3/ul (4.5-11.0) D 06/17/18 06:30 RBC 4.20 10^6/uL (3.5-6.1) 06/17/18 06:30 Hgb 11.9 g/dL (14.0-18.0) L 06/17/18 06:30 Hct 35.6 % (42.0-52.0) L 06/17/18 06:30 MCV 84.8 fl (80.0-105.0) 06/17/18 06:30 MCH 28.3 pg (25.0-35.0) 06/17/18 06:30 MCHC 33.4 g/dl (31.0-37.0) 06/17/18 06:30 RDW 14.4 % (11.5-14.5) 06/17/18 06:30 Plt Count 201 10^3/uL (120.0-450.0) 06/17/18 06:30 MPV 10.9 fl (7.0-11.0) 06/17/18 06:30 Gran % 55.2 % (50.0-68.0) 06/17/18 06:30 Lymph % (Auto) 31.9 % (22.0-35.0) 06/17/18 06:30 Tift % (Auto) 11.8 % (1.0-6.0) H 06/17/18 06:30 Eos % (Auto) 0.9 % (1.5-5.0) L 06/17/18 06:30 Baso % (Auto) 0.2 % (0.0-3.0) 06/17/18 06:30 Gran # 2.49 (1.4-6.5) 06/17/18 06:30 Lymph # (Auto) 1.4 (1.2-3.4) 06/17/18 06:30 Tift # (Auto) 0.5 (0.1-0.6) 06/17/18 06:30 Eos # (Auto) 0.0 (0.0-0.7) 06/17/18 06:30 Baso # (Auto) 0.01 K/mm3 (0.0-2.0) 06/17/18 06:30 Sodium 138 mmol/L (132-148) 06/17/18 06:30 Potassium 3.2 mmol/L (3.6-5.0) L 06/17/18 06:30 Chloride 99 mmol/L (98-107) 06/17/18 06:30 Carbon Dioxide 27 mmol/L (21-33) 06/17/18 06:30 Anion Gap 15 (10-20) 06/17/18 06:30 BUN 10 mg/dL (7-21) 06/17/18 06:30 Creatinine 0.8 mg/dl (0.8-1.5) 06/17/18 06:30 Est GFR ( Amer) > 60 06/17/18 06:30 Est GFR (Non-Af Amer) > 60 06/17/18 06:30 POC Glucose (mg/dL) 140 mg/dL (65-110) H 06/15/18 16:09 Random Glucose 101 mg/dL (70-110) 06/17/18 06:30 Hemoglobin A1c 5.7 % (4.2-6.5) 06/16/18 06:40 Calcium 9.6 mg/dL (8.4-10.5) 06/17/18 06:30 Magnesium 1.5 mg/dL (1.7-2.2) L 06/17/18 06:30 Total Bilirubin 0.2 mg/dL (0.2-1.3) 06/17/18 06:30 AST 47 U/L (17-59) 06/17/18 06:30 ALT 34 U/L (7-56) 06/17/18 06:30 Alkaline Phosphatase 47 U/L (38-126) 06/17/18 06:30 Total Creatine Kinase 791 U/L (35-230) H 06/15/18 17:20 CK-MB (CK-2) 3.9 ng/mL (0.0-3.6) H 06/15/18 17:20 CK-MB (CK-2) % Cancelled 06/15/18 17:20 Total Protein 7.3 g/dL (5.8-8.3) 06/17/18 06:30 Albumin 4.4 g/dL (3.0-4.8) 06/17/18 06:30 Globulin 2.9 gm/dL 06/17/18 06:30 Albumin/Globulin Ratio 1.5 (1.1-1.8) 06/17/18 06:30 Triglycerides 210 mg/dL (35-160) H 06/16/18 06:40 Cholesterol 152 mg/dL (130-200) 06/16/18 06:40 LDL Cholesterol Direct 43 mg/dL (0-129) 06/16/18 06:40 HDL Cholesterol 79 mg/dL (29-60) H 06/16/18 06:40 Amylase 98 U/L (35-125) 06/15/18 21:33 Lipase 173 U/L (23-300) 06/15/18 21:33 Free T4 0.92 ng/dL (0.78-2.19) 06/17/18 06:30 TSH 3rd Generation 0.07 mIU/mL (0.46-4.68) L 06/16/18 06:40 Urine Color Colorless (YELLOW) 06/15/18 21:25 Urine Appearance Clear (CLEAR) 06/15/18 21:25 Urine pH 6.0 (4.7-8.0) 06/15/18 21:25 Ur Specific Gypsy 1.010 (1.005-1.035) 06/15/18 21:25 Urine Protein Negative mg/dL (<30 mg/dL) 06/15/18 21:25 Urine Glucose (UA) 100 mg/dL (NEGATIVE) H 06/15/18 21:25 Urine Ketones Negative mg/dL (NEGATIVE) 06/15/18 21:25 Urine Blood Negative (NEGATIVE) 06/15/18 21:25 Urine Nitrate Negative (NEGATIVE) 06/15/18 21:25 Urine Bilirubin Negative (NEGATIVE) 06/15/18 21:25 Urine Urobilinogen 0.2 E.U./dL (<1 E.U./dL) 06/15/18 21:25 Ur Leukocyte Esterase Negative Georges/uL (NEGATIVE) 06/15/18 21:25 Urine Osmolality 527 mosm/kg (300-1000) 06/15/18 21:25 Ur Random Creatinine 40 mg/dL 06/15/18 21:25 Ur Random Sodium 128 meq/L 06/15/18 21:25 Urine Chloride 136 mmol/L (32-290) 06/15/18 21:25 Urine Opiates Screen Negative (NEGATIVE) 06/15/18 20:00 Urine Methadone Screen Negative (NEGATIVE) 06/15/18 20:00 Ur Barbiturates Screen Negative (NEGATIVE) 06/15/18 20:00 Ur Phencyclidine Scrn Negative (NEGATIVE) 06/15/18 20:00 Ur Amphetamines Screen Negative (NEGATIVE) 06/15/18 20:00 U Benzodiazepines Scrn Negative (NEGATIVE) 06/15/18 20:00 U Oth Cocaine Metabols Negative (NEGATIVE) 06/15/18 20:00 U Cannabinoids Screen Negative (NEGATIVE) 06/15/18 20:00 Alcohol, Quantitative 508 mg/dL (0-10) H* 06/15/18 18:56 Attending/Attestation - Attestation I have personally seen and examined this patient.: Yes I have fully participated in the care of the patient.: Yes I have reviewed all pertinent clinical information, including history, physical exam and plan: Yes Notes (Text): 06/18/18 13:59 Attending note; Patient seen and examined with resident. Patient is alert and awake. Denies any pain. Denies any nausea, vomiting. Tolerating diet. Patient is a 43-year-old male with PMH of alcohol and substance abuse, colitis , anxiety, depression, and HTN, brought in by EMS after being found on a public bench Intoxicated. Patient is currently alert and awake. Denies any complaints. not in alcohol withdrawal. Chronic alcohol abuse ; complete alcohol cessation is strongly advised .Continue multivitamin, thiamine, folic acid. Depression; psychiatric evaluation appreciated. Patient is strongly advised to [place] [facility] [place] upon discharge. History of colitis in the past. Currently no active issues. Needs outpatient follow up with GI. prognosis is poor secondary to continuous alcohol abuse and noncompliance with follow-up. Upon discharge the patient will follow-up with PMD Dr. Heard.
--- NOTE | 2018-06-18 02:31 | CON ---
Copied To: Concepción Barraza MD Attending MD: Concepción Barraza MD DATE: 06/17/2018 HISTORY OF PRESENT ILLNESS: Shortly, the patient is a 43-year-old -[place] male with reports of history of alcohol use disorder, one short previous admission with the [facility] and other under Dr. Christina's services. Patient signs himself against medical advise. At this time, patient was brought for evaluation of altered mental status and alcohol intoxication. Alcohol level was more than 200, psych consult was called because patient has history of depression and case on psychotropic medications. This automotive service writer discussed case with Dr. Oliver in detail. Patient never verbalized any thoughts of killing himself or others, but was very confused being under the influence of alcohol. This automotive service writer evaluated patient. Patient presented to be alert today. Patient states that at times he feels depressed, but he denied that he feels depressed during this automotive service writer's evaluation. Patient reports that he does feel comfortable right now. He denied any withdrawal symptoms. Patient said that he is able to tolerate food well. as per nursing report patient does not exhibit any aggressive or agitated behavior, compliant with her medications and treatment plan. Patient tolerates medications well, no side effects observed or reported. Vital signs reviewed symptoms to be stable. Labs reviewed within normal limits. Mental status examination: Patient presented to be alert and oriented, pleasant and corporative, socially appropriate. Eye contact was fair, mood described "I feel better", affect was reactive and mood congruent. tthought processes coherent and goal-directed, thought content: Patient denied thoughts of harming himself or others Patient denied hearing voices or seeing things, no psychotic symptoms reported or observed. Insight and judgment into his alcohol abuse seems to be limited, impulses are well controlled. Impression: Rule out alcohol-induced mood disorder Alcohol use disorder Alcohol withdrawal symptoms under control Plan: Continue current medications Continue current management Paxil was resumed by medical team agree with that Patient reported that he has appointment at the [facility] outpatient clinic on May 18, encouraged to follow up and keep his appointment Patient pose no imminent danger to self or others This automotive service writer will sign off Should you have any questions give me a call back Case was discussed in details with . Concepción Barraza MD [facility] # [id number] ELISA
== END 2018-06-17 18:05 | disposition home or self-care (01) ==
LOC: ED 15:54 → ERH 20:11 → 2RSO 21:58 → OBSVTOIN 06-16 14:25 → INTOOBSV 06-16 14:25
PROVIDERS: ADMIT Internal Medicine; ATTEND Internal Medicine
DX: F10.229 Alcohol dependence with intoxication, unspecified (principal); F10.239 Alcohol dependence with withdrawal, unspecified; M62.82 Rhabdomyolysis; E87.0 Hyperosmolality and hypernatremia; E87.2 Acidosis; F17.200 Nicotine dependence, unspecified, uncomplicated; F32.89 Other specified depressive episodes; F41.9 Anxiety disorder, unspecified; G62.9 Polyneuropathy, unspecified; I10 Essential (primary) hypertension; K52.9 Noninfective gastroenteritis and colitis, unspecified; Y90.8 Blood alcohol level of 240 mg/100 ml or more; Z91.19 Patient's noncompliance with other medical treatment and regimen; F14.90 Cocaine use, unspecified, uncomplicated
CPT/HCPCS: 36415; 71045; 80053; 80061; 80320; 80324; 80345; 80346; 80349; 80353; 80358; 80361; 81003; 82150; 82436; 82550; 82553; 82570; 82948; 83036; 83690; 83735; 83935; 83992; 84300; 84439; 84443; 85025; 93005; 96365; 96375; 96376; 97116; 97161; 99285; C9113; G0378; G8978; G8979; J2060; J3411; J7030; J7060; J7070

== ENCOUNTER 2018-06-24 08:14 | Emergency (ER) | payer MEDICAID ==
[2018-06-24 08:15] VITALS: BMI 25.0
[2018-06-24 08:32] VITALS: BP 147/83
[2018-06-24] MEDS ORDERED: Famotidine 20mg/50ml 20 MG/50 ML BAG IVPB STA (08:45)
[2018-06-24] MEDS ORDERED: Sodium Chloride 0.9% 1,000 ML IV STA (08:45)
--- NOTE | 2018-06-24 08:45 | ED PDOC ---
Arrival/HPI - General Chief Complaint: Abdominal Pain Time Seen by Provider: 06/24/18 08:31 Historian: Patient - History of Present Illness Narrative History of Present Illness (Text): 06/24/18 08:45 A 43 year old male well known to the emergency department for alcohol and substance abuse, whose past medical history includes hypertension and colitis, presents to the emergency department complaining of abdominal pain since earlier this morning. Patient reports experiencing vomiting and associated stomach pain. Patient notes he had diarrhea 2 times and vomited 5-6 times today. Patient also admits to drinking alcohol and has taken none of his medication today. Patient also reports his stool is normal. Patient denies any fever, chills, shortness of breath, chest pain, urinary symptoms, back pain, neck pain, headache, dizziness, or any other complaints. Time/Duration: 4-6 hours (this morning) Symptom Onset: Gradual Symptom Course: Unchanged Activities at Onset: Light Context: Home Past Medical History - Provider Review Nursing Documentation Reviewed: Yes - Past History Past History: No Previous - Infectious Disease Hx of Infectious Diseases: None - Tetanus Immunization Tetanus Immunization: Unknown - Past Medical History Past Medical History: No Previous - Cardiac Hx Cardiac Disorders: Yes Hx Hypertension: Yes - Pulmonary Hx Respiratory Disorders: No Other/Comment: light smoker - Neurological Hx Neurological Disorder: Yes Hx Dizziness: Yes Other/Comment: neuropathy - HEENT Hx HEENT Disorder: No - Renal Hx Renal Disorder: No - Endocrine/Metabolic Hx Endocrine Disorders: No - Hematological/Oncological Hx Blood Disorders: No - Integumentary Hx Dermatological Disorder: No - Musculoskeletal/Rheumatological Hx Musculoskeletal Disorders: No Hx Falls: No - Gastrointestinal Hx Gastrointestinal Disorders: Yes Hx Colitis: Yes Other/Comment: Colitis - Genitourinary/Gynecological Hx Genitourinary Disorders: No - Psychiatric Hx Psychophysiologic Disorder: Yes Hx Anxiety: Yes Hx Depression: Yes Hx Substance Use: Yes (COCAINE/MARIJUANA LAST SNIFFED SATURDAY EVENING) Other/Comment: substance and alcohol abuse - Past Surgical History Past Surgical History: Non-Contributing - Surgical History Hx Musculoskeletal Surgery: Yes (R foot sx with rods/screws placed) Hx Orthopedic Surgery: Yes - Anesthesia Hx Anesthesia: Yes Hx Anesthesia Reactions: No Hx Malignant Hyperthermia: No - Suicidal Assessment Feels Threatened In Home Enviroment: No Family/Social History - Physician Review Nursing Documentation Reviewed: Yes Family/Social History: Unknown Family HX Smoking Status: Current Some Days Smoker Hx Alcohol Use: Yes (ETOH ABUSE. PINT OF VODKA.2-3 BTLS OF VODKA DAILY. LAST DRANK EVENING.) Hx Substance Use: Yes (COCAINE/MARIJUANA LAST SNIFFED SATURDAY EVENING) Substance used: marijuana & cocaine Hx Substance Use Treatment: No Allergies/Home Meds Allergies/Adverse Reactions: Allergies No Known Allergies Allergy (Verified 06/24/18 08:32) Home Medications: Home Meds Medication Instructions Recorded Confirmed PARoxetine [Paxil] 10 mg PO DAILY 05/09/18 05/09/18 Review of Systems - Physician Review All systems were reviewed & negative as marked: Yes - Review of Systems Constitutional: absent: Fevers, Night Sweats Respiratory: absent: SOB Cardiovascular: absent: Chest Pain Gastrointestinal: Diarrhea, Nausea, Vomiting Genitourinary Male: absent: Urinary Output Changes Musculoskeletal: absent: Back Pain, Neck Pain Neurological: absent: Headache, Dizziness Physical Exam Vital Signs Reviewed: Yes Vital Signs Temp Pulse Resp BP Pulse Ox 06/24/18 12:55 98.0 F 83 18 97 06/24/18 11:12 87 19 97 06/24/18 08:28 98.4 F 88 18 147/83 95 Temperature: Afebrile Blood Pressure: Normal Pulse: Regular Respiratory Rate: Normal Appearance: Positive for: Well-Appearing, Non-Toxic, Comfortable Pain Distress: None Mental Status: Positive for: Alert and Oriented X 3 - Systems Exam Head: Present: Atraumatic, Normocephalic Pupils: Present: PERRL Extroacular Muscles: Present: EOMI Conjunctiva: Present: Normal Mouth: Present: Moist Mucous Membranes Neck: Present: Normal Range of Motion Respiratory/Chest: Present: Clear to Auscultation, Good Air Exchange. No: Respiratory Distress, Accessory Muscle Use Cardiovascular: Present: Regular Rate and Rhythm, Normal S1, S2. No: Murmurs Abdomen: Present: Tenderness (+epigastric tenderness in left upper quadrant). No: Distention, Peritoneal Signs, Rebound, Guarding, McBurney's Point Tender, Rovsing's Sign Present, Hernias, Feeding Tubes, Ostomy Tubes, Mass/Organomegaly Rectal: Present: Normal Rectal Tone. No: Occult Blood, Rectal Tenderness, Gross Blood, Melena, Hemorrhoids, Nodule/Mass/Lesions Back: Present: Normal Inspection Upper Extremity: Present: Normal Inspection. No: Cyanosis, Edema Lower Extremity: Present: Normal Inspection. No: Edema Neurological: Present: GCS=15, CN II-XII Intact, Speech Normal Skin: Present: Warm, Dry, Normal Color. No: Rashes Psychiatric: Present: Alert, Oriented x 3, Normal Insight, Normal Concentration Medical Decision Making ED Course and Treatment: 06/24/18 08:50 Impression: 43 year old presents to the Emergency department complaining of abdominal pain. Well appearing male in NAD with VSS. P/w alcoholic gastritis like pain. Multiple episodes of n/v, without any trauma. Pt notes drinking last night. No withdraw signs. No fever, chills or night sweats. No recent abx. No dark or bloody stool. Plan: -- CMP -- Lipase -- Magnesium -- CBCB with differential -- Zofran -- Pepcid -- IV fluids -- Reassess and disposition Prior Visits: Notes and results from previous visits were reviewed. Patient was last seen in the emergency department on 05/09/18 for diarrhea and associated abdominal pain and was discharged when symptoms stabilized. Progress Notes: 06/24/18 12:35 Dictator: Micheal Mccauley MD Procedure: CT Abdomen & pelvis with contrast Impression: Stable nonacute abdomen pelvis CT examination as discussed above. Mildly prominent prostate gland. On Exam: rectal exam w/ no prostate tenderness. Given no bogginess or tendernss - will have pt f/u with primary in regards to prostate gland. pt is otherwise tolerating clears and has improved pain. - Lab Interpretations Lab Results: 06/24/18 09:45 06/24/18 09:45 Lab Results 06/24/18 09:45: Sodium 144, Potassium 4.0, Chloride 106, Carbon Dioxide 22, Anion Gap 20, BUN 16, Creatinine 0.9, Est GFR ( Amer) > 60, Est GFR (Non- Af Amer) > 60, Random Glucose 86, Calcium 9.1, Magnesium 1.8, Total Bilirubin 0.4, AST 58, ALT 38, Alkaline Phosphatase 57, Total Protein 7.4, Albumin 4.6, Globulin 2.8, Albumin/Globulin Ratio 1.6, Lipase 114 06/24/18 09:45: WBC 2.9 L* D, RBC 3.88, Hgb 11.1 L, Hct 33.4 L, MCV 86.1, MCH 28.6, MCHC 33.2, RDW 15.2 H, Plt Count 211, MPV 10.3, Gran % 49.3 L, Lymph % ( Auto) 34.4, [place] % (Auto) 15.0 H, Eos % (Auto) 1.0 L, Baso % (Auto) 0.3, Gran # 1.45, Lymph # (Auto) 1.0 L, [place] # (Auto) 0.4, Eos # (Auto) 0.0, Baso # (Auto) 0.01 - RAD Interpretation Radiology Orders: 06/24/18 11:04 ABD & PELVIS IV CONTRAST ONLY [CT] Stat - Medication Orders Current Medication Orders: Discontinued Medications Famotidine (Pepcid 20mg/50ml Premix) 20 mg in 50 mls @ 100 mls/hr IVPB STAT STA Stop: 06/24/18 09:14 Last Admin: 06/24/18 09:39 Dose: 100 mls/hr eMAR Start Stop Document 06/24/18 09:39 [email or web address] (Rec: 06/24/18 09:39 [email or web address] [id number]) Intravenous Solution Start Date 06/24/18 Start Time 09:39 End Date 06/24/18 Sodium Chloride (Sodium Chloride 0.9%) 1,000 mls @ 999 mls/hr IV .Q1H1M STA Stop: 06/24/18 09:45 Last Admin: 06/24/18 09:38 Dose: 999 mls/hr eMAR Start Stop Document 06/24/18 09:38 [email or web address] (Rec: 06/24/18 09:38 [email or web address] [id number]) Intravenous Solution Start Date 06/24/18 Start Time 09:38 End Date 06/24/18 Morphine Sulfate (Morphine) 4 mg IVP STAT STA Stop: 06/24/18 11:05 Last Admin: 06/24/18 11:16 Dose: 4 mg MAR Pain Assessment Document 06/24/18 11:16 [email or web address] (Rec: 06/24/18 11:16 [email or web address] [id number]) Pain Reassessment Is this a pain reassessment? Yes Sleep Is patient sleeping during reassessment? No Presence of Pain Presence of Pain Yes Pain Scale Used Pain Scale Used Numeric Location Pain Location Body Site Abdomen Description Description Constant Intensity of Pain at present 10 Pain Behavior Facial Grimacing Aggravating Factors Changing Position Alleviating Factors/Management Position Change Techniques Alleviating Factors Medication IVP Administration Document 06/24/18 11:16 [email or web address] (Rec: 06/24/18 11:16 [email or web address] [id number]) Charges for Administration # of IVP Administrations 1 Ondansetron HCl (Zofran Inj) 4 mg IVP STAT STA Stop: 06/24/18 08:46 Last Admin: 06/24/18 09:38 Dose: 4 mg IVP Administration Document 06/24/18 09:38 [email or web address] (Rec: 06/24/18 09:39 [email or web address] [id number]) Charges for Administration # of IVP Administrations 1 - Scribe Statement The provider has reviewed the documentation as recorded by the Scribtylor Sanderson All medical record entries made by the Scribe were at my direction and personally dictated by me. I have reviewed the chart and agree that the record accurately reflects my personal performance of the history, physical exam, medical decision making, and the department course for this patient. I have also personally directed, reviewed, and agree with the discharge instructions and disposition. Disposition/Present on Arrival - Present on Arrival Any Indicators Present on Arrival: No History of DVT/PE: No History of Uncontrolled Diabetes: No Urinary Catheter: No History of Decub. Ulcer: No History Surgical Site Infection Following: None - Disposition Have Diagnosis and Disposition been Completed?: Yes Diagnosis: Abdominal pain Disposition: HOME/ ROUTINE Disposition Time: 12:00 Condition: GOOD Discharge Instructions (ExitCare): Acute Abdomen (Belly Pain), Adult (DC) Additional Instructions: ROHINI MARTINEZ JR, thank you for letting us take care of you today. Your provider was Jaiden Macario and you were treated for ABDOMINAL PAIN. The emergency medical care you received today was directed at your acute symptoms. If you were prescribed any medication, please fill it and take as directed. It may take several days for your symptoms to resolve. Return to the Emergency Department if your symptoms worsen, do not improve, or if you have any other problems. Please contact your doctor or call one of the physicians/clinics you have been referred to that are listed on the Patient Visit Information form that is included in your discharge packet. Bring any paperwork you were given at discharge with you along with any medications you are taking to your follow up visit. Our treatment cannot replace ongoing medical care by a primary care provider outside of the emergency department. Thank you for allowing the [facility] team to be part of your care today. If you had an X-Ray or CT scan: A Radiologist will review the ED reading if any change in treatment is needed we will contact you. If you had a blood, urine, or wound culture: It will take several days for the results, if any change in treatment is needed we will contact you. If you had an STI test: It will take 48 hours for the results. Please call after 1 week if you have not heard back. Referrals: Garrick Bonilla MD [Staff Provider] - Follow up with primary Ailyn Garsia MD [Medical Doctor] - Follow up with primary Forms: [employer] (Korean)
[2018-06-24 09:53] LABS: BASO # 0.01 K/mm3 (0.0-2.0); BASO % 0.3 % (0.0-3.0); GRAN # 1.45 (1.4-6.5); GRAN % 49.3 % (50.0-68.0); HEMOGLOBIN 11.1 g/dL (14.0-18.0); LYMPH % 34.4 % (22.0-35.0); MEAN CELL VOLUME 86.1 fl (80.0-105.0); MEAN CORPUSCULAR HEMOGLOBIN 28.6 pg (25.0-35.0); MEAN CORPUSCULAR HGB CONC 33.2 g/dl (31.0-37.0); MEAN PLATELET VOLUME 10.3 fl (7.0-11.0); MONO # 0.4 (0.1-0.6); RBC 3.88 10^6/uL (3.5-6.1); RED CELL DISTRIBUTION WIDTH 15.2 % (11.5-14.5)
[2018-06-24 09:54] LABS: WHITE BLOOD COUNT 2.9 10^3/ul (4.5-11.0)
[2018-06-24 10:01] LABS: ALB/GLOB RATIO 1.6 (1.1-1.8); ALBUMIN 4.6 g/dL (3.0-4.8); ALT/SGPT 38 U/L (7-56); AST/SGOT 58 U/L (17-59); BLOOD UREA NITROGEN 16 mg/dL (7-21); CALCIUM 9.1 mg/dL (8.4-10.5); GFR NON-AFRICAN AMERICAN > 60; LIPASE 114 U/L (23-300)
[2018-06-24] MEDS ORDERED: Morphine 4 mg/ml ISec IVP STA (11:04)
[2018-06-24] MEDS ORDERED: Iohexol 350 MG/100 ML VIAL ONE (11:09)
[2018-06-24 11:12] VITALS: O2SAT 97
--- NOTE | 2018-06-24 12:29 | CT ---
Date of service: 06/24/2018 PROCEDURE: CT Abdomen and Pelvis with contrast HISTORY: abdominal pain COMPARISON: Abdomen and pelvis CT with contrast 05/05/2018. TECHNIQUE: Following the intravenous administration of iodinated contrast material, a CT examination of the abdomen and pelvis performed from the domes of the diaphragms to the symphysis pubis with reformatted datasets provided in axial, sagittal and coronal planes. Oral contrast was not administered as per referring physician request. Contrast dose: Omnipaque 350, 100 cc Radiation dose: Total exam DLP = 295.62 mGy-cm. This CT exam was performed using one or more of the following dose reduction techniques: Automated exposure control, adjustment of the mA and/or kV according to patient size, and/or use of iterative reconstruction technique. FINDINGS: LOWER THORAX: Unremarkable. LIVER: Homogeneous parenchymal enhancement is identified nonfocal with no mass appreciable or intrahepatic biliary dilatation. GALLBLADDER AND BILE DUCTS: Unremarkable. PANCREAS: Unremarkable. No gross lesion or ductal dilatation. SPLEEN: Unremarkable. ADRENALS: Unremarkable. No mass. KIDNEYS AND URETERS: There multiple tiny punctate lucencies too small to characterize at the upper poles of both kidneys. No obstructive uropathy or dominant mass identified. No perinephric reaction bilaterally. VASCULATURE: Unremarkable. No aortic aneurysm. BOWEL: No bowel obstruction is appreciated with mild retained fecal material scattered throughout the proximal large-bowel. Distal large bowel is partially collapsed and it does not appear significantly changed in mural thickness compared to 05/05/2018 CT APPENDIX: Normal appendix. PERITONEUM: Unremarkable. No free fluid. No free air. LYMPH NODES: Unremarkable. No enlarged lymph nodes. BLADDER: Unremarkable. REPRODUCTIVE: Moderately enlarged prostate gland at 5.4 cm BONES: No acute fracture. OTHER FINDINGS: Resolution of prior left lower quadrant subcutaneous reactive changes. IMPRESSION: Stable nonacute abdomen pelvis CT examination as discussed above. Mildly prominent prostate gland.
[2018-06-24 12:56] VITALS: PULSE 83; RESP 18; TEMP 98
== END 2018-06-24 12:59 | disposition home or self-care (01) ==
LOC: ED 08:14
DX: R10.9 Unspecified abdominal pain (principal); I10 Essential (primary) hypertension
CPT/HCPCS: 74177; 80053; 83690; 83735; 85025; 96374; 96375; 99283; J2270; J2405; J7030; Q9967

== ENCOUNTER 2018-07-14 08:11 | Emergency (ER) | payer MEDICAID ==
[2018-07-14 08:11] VITALS: BMI 25.0
[2018-07-14 08:35] VITALS: RESP 18; O2SAT 99
[2018-07-14] MEDS ORDERED: Sodium Chloride 0.9% 1,000 ML IV STA (08:55)
--- NOTE | 2018-07-14 08:59 | ED PDOC ---
Arrival/HPI - General Chief Complaint: Abdominal Pain Time Seen by Provider: 07/14/18 08:12 Historian: Patient - History of Present Illness Narrative History of Present Illness (Text): 07/14/18 09:00 A 43 year old male, whose past medical history includes hypertension, presents to the emergency department complaining of vomiting and abdominal pain. Patient has been to the ER for multiple visits of the same symptoms. Patient has no other symptomatic complaints. PMD: Dr. Griselda Heard Past Medical History - Provider Review Nursing Documentation Reviewed: Yes - Past History Past History: No Previous - Infectious Disease Hx of Infectious Diseases: None - Tetanus Immunization Tetanus Immunization: Unknown - Past Medical History Past Medical History: No Previous - Cardiac Hx Cardiac Disorders: Yes Hx Hypertension: Yes - Pulmonary Hx Respiratory Disorders: No Other/Comment: light smoker - Neurological Hx Neurological Disorder: Yes Hx Dizziness: Yes Other/Comment: neuropathy - HEENT Hx HEENT Disorder: No - Renal Hx Renal Disorder: No - Endocrine/Metabolic Hx Endocrine Disorders: No - Hematological/Oncological Hx Blood Disorders: No - Integumentary Hx Dermatological Disorder: No - Musculoskeletal/Rheumatological Hx Musculoskeletal Disorders: No Hx Falls: No - Gastrointestinal Hx Gastrointestinal Disorders: Yes Hx Colitis: Yes Other/Comment: Colitis - Genitourinary/Gynecological Hx Genitourinary Disorders: No - Psychiatric Hx Psychophysiologic Disorder: Yes Hx Anxiety: Yes Hx Depression: Yes Hx Substance Use: Yes (COCAINE/MARIJUANA LAST SNIFFED Saturday) Other/Comment: substance and alcohol abuse - Past Surgical History Past Surgical History: Non-Contributing - Surgical History Hx Musculoskeletal Surgery: Yes (R foot sx with rods/screws placed) Hx Orthopedic Surgery: Yes - Anesthesia Hx Anesthesia: Yes Hx Anesthesia Reactions: No Hx Malignant Hyperthermia: No - Suicidal Assessment Feels Threatened In Home Enviroment: No Family/Social History - Physician Review Nursing Documentation Reviewed: Yes Family/Social History: No Known Family HX Smoking Status: Current Some Days Smoker Hx Alcohol Use: Yes (ETOH ABUSE. PINT OF VODKA.2-3 BTLS OF VODKA DAILY. LAST DRANK EVENING.) Hx Substance Use: Yes (COCAINE/MARIJUANA LAST SNIFFED Saturday) Substance used: marijuana & cocaine Hx Substance Use Treatment: No Allergies/Home Meds Allergies/Adverse Reactions: Allergies No Known Allergies Allergy (Verified 06/24/18 08:32) Home Medications: Home Meds Medication Instructions Recorded Confirmed PARoxetine [Paxil] 10 mg PO DAILY 05/09/18 05/09/18 Review of Systems - Physician Review All systems were reviewed & negative as marked: Yes - Review of Systems Constitutional: absent: Fevers Gastrointestinal: Abdominal Pain, Vomiting Physical Exam Vital Signs Reviewed: Yes Vital Signs Temp Pulse Resp BP Pulse Ox 07/14/18 11:10 98.7 F 91 H 18 139/92 H 99 07/14/18 08:32 98.6 F 90 18 146/90 99 Temperature: Afebrile Blood Pressure: Normal Pulse: Regular Respiratory Rate: Normal Appearance: Positive for: Well-Appearing, Non-Toxic, Comfortable Pain Distress: None Mental Status: Positive for: Alert and Oriented X 3 - Systems Exam Head: Present: Atraumatic, Normocephalic Pupils: Present: PERRL Extroacular Muscles: Present: EOMI Conjunctiva: Present: Normal Mouth: Present: Moist Mucous Membranes Neck: Present: Normal Range of Motion Respiratory/Chest: Present: Clear to Auscultation, Good Air Exchange. No: Respiratory Distress, Accessory Muscle Use Cardiovascular: Present: Regular Rate and Rhythm, Normal S1, S2. No: Murmurs Abdomen: No: Tenderness, Distention, Peritoneal Signs Back: Present: Normal Inspection Upper Extremity: Present: Normal Inspection. No: Cyanosis, Edema Lower Extremity: Present: Normal Inspection. No: Edema Neurological: Present: GCS=15, CN II-XII Intact, Speech Normal Skin: Present: Warm, Dry, Normal Color. No: Rashes Psychiatric: Present: Alert, Oriented x 3, Normal Insight, Normal Concentration Medical Decision Making ED Course and Treatment: 07/14/18 09:01 Impression: 43 year old male with abdominal pain and vomiting. Physical examination is benign. Plan: -- Labs -- Zofran -- Protonix -- IV Fluids -- Urinalysis -- Reassess and disposition Progress Notes: 07/14/18 09:52 Patient's WBC is at baseline. 07/14/18 17:13 pt sleeping through emergency department stayh. abd soft no tremors. advise outpt fu. - Lab Interpretations Lab Results: 07/14/18 09:30 07/14/18 09:30 Lab Results 07/14/18 09:30: Sodium 143, Potassium 3.4 L, Chloride 105, Carbon Dioxide 27, Anion Gap 14, BUN 9, Creatinine 0.8, Est GFR ( Amer) > 60, Est GFR (Non- Af Amer) > 60, Random Glucose 98, Calcium 8.7, Magnesium 1.2 L, Total Bilirubin 0.2, AST 40, ALT 38, Alkaline Phosphatase 48, Total Protein 6.9, Albumin 4.2, Globulin 2.7, Albumin/Globulin Ratio 1.5, Lipase 125 07/14/18 09:30: PT 10.8, INR 0.94, APTT 24.9 L 07/14/18 09:30: WBC 2.9 L*, RBC 3.90, Hgb 11.1 L, Hct 34.0 L, MCV 87.2, MCH 28.5 , MCHC 32.6, RDW 15.7 H, Plt Count 229, MPV 11.0, Gran % 36.1 L, Lymph % (Auto) 46.3 H, [place] % (Auto) 16.1 H, Eos % (Auto) 0.4 L, Baso % (Auto) 1.1, Gran # 1.03 L, Lymph # (Auto) 1.3, [place] # (Auto) 0.5, Eos # (Auto) 0.0, Baso # (Auto) 0.03 I have reviewed the lab results: Yes - Medication Orders Current Medication Orders: Discontinued Medications Sodium Chloride (Sodium Chloride 0.9%) 1,000 mls @ 999 mls/hr IV .Q1H1M STA Stop: 07/14/18 09:55 Last Admin: 07/14/18 09:50 Dose: 999 mls/hr eMAR Start Stop Document 07/14/18 09:50 GMD (Rec: 07/14/18 09:50 GMD [id number]) Intravenous Solution Start Date 07/14/18 Start Time 09:50 End Date 07/14/18 End time 10:51 Total Infusion Time 61 Ondansetron HCl (Zofran Inj) 4 mg IVP STAT STA Stop: 07/14/18 08:55 Last Admin: 07/14/18 09:51 Dose: 4 mg IVP Administration Document 07/14/18 09:51 GMD (Rec: 07/14/18 09:51 GMD [id number]) Charges for Administration # of IVP Administrations 1 Pantoprazole Sodium (Protonix Inj) 40 mg IVP STAT STA Stop: 07/14/18 08:56 Last Admin: 07/14/18 09:51 Dose: 40 mg IVP Administration Document 07/14/18 09:51 GMD (Rec: 07/14/18 09:51 GMD [id number]) Charges for Administration # of IVP Administrations 1 - Scribe Statement The provider has reviewed the documentation as recorded by the Ruth Hope Provider Scribe Attestation: All medical record entries made by the Scribe were at my direction and personally dictated by me. I have reviewed the chart and agree that the record accurately reflects my personal performance of the history, physical exam, medical decision making, and the department course for this patient. I have also personally directed, reviewed, and agree with the discharge instructions and disposition. Disposition/Present on Arrival - Present on Arrival Any Indicators Present on Arrival: No History of DVT/PE: No History of Uncontrolled Diabetes: No Urinary Catheter: No History of Decub. Ulcer: No History Surgical Site Infection Following: None - Disposition Have Diagnosis and Disposition been Completed?: Yes Diagnosis: Abdominal pain Disposition: HOME/ ROUTINE Disposition Time: 11:00 Condition: STABLE Discharge Instructions (ExitCare): Acute Abdomen (Belly Pain), Adult (DC) Additional Instructions: return to er with worsening symptoms or concerns. please follow up in clinic and discuss all lab tests including your white blood cell count as an outpatient. return to any er with worsening symptoms or concerns. Prescriptions: Famotidine [Pepcid] 20 mg PO DAILY #20 tab Referrals: [facility] [Outside] - Follow up with primary [facility] [place] - Follow up with primary Griselda Heard MD [Primary Care Provider] - Follow up with primary Forms: [employer] (British)
[2018-07-14 09:47] LABS: BASO # 0.03 K/mm3 (0.0-2.0); BASO % 1.1 % (0.0-3.0); EOS % 0.4 % (1.5-5.0); GRAN # 1.03 (1.4-6.5); GRAN % 36.1 % (50.0-68.0); HEMOGLOBIN 11.1 g/dL (14.0-18.0); LYMPH # 1.3 (1.2-3.4); LYMPH % 46.3 % (22.0-35.0); MEAN CELL VOLUME 87.2 fl (80.0-105.0); MEAN CORPUSCULAR HEMOGLOBIN 28.5 pg (25.0-35.0); MEAN CORPUSCULAR HGB CONC 32.6 g/dl (31.0-37.0); MONO # 0.5 (0.1-0.6); MONO % 16.1 % (1.0-6.0); RBC 3.9 10^6/uL (3.5-6.1); RED CELL DISTRIBUTION WIDTH 15.7 % (11.5-14.5)
[2018-07-14 09:50] LABS: WHITE BLOOD COUNT 2.9 10^3/ul (4.5-11.0)
[2018-07-14 09:55] LABS: INR 0.94; PARTIAL THROMBOPLASTIN TIME 24.9 Seconds (25.1-36.5); PROTHROMBIN TIME 10.8 SECONDS (9.4-12.5)
[2018-07-14 10:25] LABS: ALB/GLOB RATIO 1.5 (1.1-1.8); ALBUMIN 4.2 g/dL (3.0-4.8); ALT/SGPT 38 U/L (7-56); AST/SGOT 40 U/L (17-59); BLOOD UREA NITROGEN 9 mg/dL (7-21); CALCIUM 8.7 mg/dL (8.4-10.5); GFR NON-AFRICAN AMERICAN > 60; LIPASE 125 U/L (23-300)
[2018-07-14 11:10] VITALS: BP 139/92; PULSE 91; TEMP 98.7
--- NOTE | 2018-07-15 14:05 | CARD ---
APPROVED REPORT Date of service: 07/14/2018 EKG Measurement Heart [id number] <Conclusion> Normal sinus rhythm Minimal voltage criteria for LVH, may be normal variant Borderline ECG
== END 2018-07-14 11:11 | disposition home or self-care (01) ==
LOC: ED 08:11
DX: R10.9 Unspecified abdominal pain (principal); I10 Essential (primary) hypertension; F17.210 Nicotine dependence, cigarettes, uncomplicated
CPT/HCPCS: 80053; 83690; 83735; 85025; 85610; 85730; 93005; 96361; 96374; 96375; 99284; C9113; J2405; J7030

== ENCOUNTER 2018-07-28 08:56 | Emergency (ER) | payer MEDICAID ==
[2018-07-28 08:56] VITALS: BMI 25.0
[2018-07-28] MEDS ORDERED: Sodium Chloride 0.9% 1,000 ML IV STA (09:20)
--- NOTE | 2018-07-28 09:48 | ED PDOC ---
Arrival/HPI - General Chief Complaint: GI Problem Time Seen by Provider: 07/28/18 09:00 Historian: Patient - History of Present Illness Narrative History of Present Illness (Text): 07/28/18 09:20 43 year old male, with past medical history of hypertension and alcohol abuse, presents to the Emergency department complaining of vomiting and abdominal pain s/p alcohol intoxication yesterday. Patient admits to drinking last night and reports his last drink was at 6 pm yesterday. Patient informs similar symptoms in the past and has been seen in the Emergency department numerous times for similar complaints. Patient denies any other somatic complaints. Patient denies any fever, chills, chest pain, shortness of breath, cough, neck pain, back pain, headache, dizziness or any other complaints. Patient denies any substance use. Time/Duration: 4-6 hours Symptom Onset: Gradual Symptom Course: Unchanged Quality: Aching Activities at Onset: Light Context: Home Past Medical History - Provider Review Nursing Documentation Reviewed: Yes - Past History Past History: No Previous - Infectious Disease Hx of Infectious Diseases: None - Tetanus Immunization Tetanus Immunization: Unknown - Past Medical History Past Medical History: No Previous - Cardiac Hx Cardiac Disorders: Yes Hx Hypertension: Yes - Pulmonary Hx Respiratory Disorders: No Other/Comment: light smoker - Neurological Hx Neurological Disorder: Yes Hx Dizziness: Yes Other/Comment: neuropathy - HEENT Hx HEENT Disorder: No - Renal Hx Renal Disorder: No - Endocrine/Metabolic Hx Endocrine Disorders: No - Hematological/Oncological Hx Blood Disorders: No - Integumentary Hx Dermatological Disorder: No - Musculoskeletal/Rheumatological Hx Musculoskeletal Disorders: No Hx Falls: No - Gastrointestinal Hx Gastrointestinal Disorders: Yes Hx Colitis: Yes Other/Comment: Colitis - Genitourinary/Gynecological Hx Genitourinary Disorders: No - Psychiatric Hx Psychophysiologic Disorder: Yes Hx Anxiety: Yes Hx Depression: Yes Hx Substance Use: Yes (COCAINE/MARIJUANA LAST SNIFFED SATURDAY EVENING) Other/Comment: substance and alcohol abuse - Past Surgical History Past Surgical History: Non-Contributing - Surgical History Hx Musculoskeletal Surgery: Yes (R foot sx with rods/screws placed) Hx Orthopedic Surgery: Yes - Anesthesia Hx Anesthesia: Yes Hx Anesthesia Reactions: No Hx Malignant Hyperthermia: No - Suicidal Assessment Feels Threatened In Home Enviroment: No Family/Social History - Physician Review Nursing Documentation Reviewed: Yes Family/Social History: No Known Family HX Smoking Status: Current Some Days Smoker Hx Alcohol Use: Yes (ETOH ABUSE. PINT OF VODKA.2-3 BTLS OF VODKA DAILY. LAST DRANK EVENING.) Frequency of alcohol use: Daily Hx Substance Use: Yes (COCAINE/MARIJUANA LAST SNIFFED SATURDAY EVENING) Substance used: marijuana & cocaine Hx Substance Use Treatment: No Allergies/Home Meds Allergies/Adverse Reactions: Allergies No Known Allergies Allergy (Verified 06/24/18 08:32) Home Medications: Home Meds Medication Instructions Recorded Confirmed RX: PARoxetine [Paxil] 10 mg PO DAILY 05/09/18 05/09/18 Review of Systems - Physician Review All systems were reviewed & negative as marked: Yes - Review of Systems Constitutional: absent: Fevers Respiratory: absent: SOB, Cough Cardiovascular: absent: Chest Pain Gastrointestinal: Abdominal Pain, Nausea, Vomiting Musculoskeletal: absent: Back Pain, Neck Pain Neurological: absent: Headache, Dizziness Physical Exam Vital Signs Reviewed: Yes Vital Signs Temp Pulse Resp BP Pulse Ox 07/28/18 08:56 97.8 F 88 20 149/89 100 Temperature: Afebrile Blood Pressure: Normal Pulse: Regular Respiratory Rate: Normal Appearance: Positive for: Well-Appearing, Non-Toxic, Comfortable Pain Distress: None Mental Status: Positive for: Alert and Oriented X 3 - Systems Exam Head: Present: Atraumatic, Normocephalic Pupils: Present: PERRL Extroacular Muscles: Present: EOMI Conjunctiva: Present: Normal Mouth: Present: Moist Mucous Membranes Neck: Present: Normal Range of Motion Respiratory/Chest: Present: Clear to Auscultation, Good Air Exchange. No: Respi ratory Distress, Accessory Muscle Use Cardiovascular: Present: Regular Rate and Rhythm, Normal S1, S2. No: Murmurs Abdomen: Present: Tenderness (epigastric tenderness). No: Distention, Peritoneal Signs Back: Present: Normal Inspection Upper Extremity: Present: Normal Inspection. No: Cyanosis, Edema Lower Extremity: Present: Normal Inspection. No: Edema Neurological: Present: GCS=15, CN II-XII Intact, Speech Normal Skin: Present: Warm, Dry, Normal Color. No: Rashes Psychiatric: Present: Alert, Oriented x 3, Normal Insight, Normal Concentration Medical Decision Making ED Course and Treatment: 07/28/18 09:20 Impression: 43 year old male presents to the Emergency department complaining of abdominal pain, nausea and vomiting. Plan: -- Labs -- Chest X-ray -- Protonix -- IV Fluids -- Zofran -- Urinalysis -- Reassess and disposition Prior Visits: Notes and results from previous visits were reviewed. Progress Notes: 07/28/18 09:20 EKG: Ordered, reviewed, and independently interpreted the EKG. Rate : 77 BPM Rhythm : NSR Interpretation : No ST-segment elevations or depressions, no T-wave inversions, normal intervals. 07/28/18 10:20 Patient lab results were reviewed. Patient's CBC is at his baseline. Chest X-ray reviewed by me, shows no acute diseases. 07/28/18 18:19 labs neg pt sleepin gin nad pain improved. no tremors no tachycardia no e/o of w/d. recnet neg ct scan. advise outpt fu. - RAD Interpretation Radiology Orders: 07/28/18 09:20 CHEST PORTABLE [RAD] Stat - EKG Interpretation Interpreted by ED Physician: Yes Type: 12 lead EKG - Medication Orders Current Medication Orders: Sodium Chloride (Sodium Chloride 0.9%) 1,000 mls @ 1,000 mls/hr IV .Q1H STA Stop: 07/28/18 10:19 Last Admin: 07/28/18 09:33 Dose: 1,000 mls/hr eMAR Start Stop Document 07/28/18 09:33 EQ (Rec: 07/28/18 09:33 EQ [id number]) Intravenous Solution Start Date 07/28/18 Start Time 09:33 Discontinued Medications Ondansetron HCl (Zofran Inj) 4 mg IVP STAT STA Stop: 07/28/18 09:21 Last Admin: 07/28/18 09:33 Dose: 4 mg IVP Administration Document 07/28/18 09:33 EQ (Rec: 07/28/18 09:33 EQ [id number]) Charges for Administration # of IVP Administrations 1 Pantoprazole Sodium (Protonix Inj) 40 mg IVP STAT STA Stop: 07/28/18 09:21 Last Admin: 07/28/18 09:33 Dose: 40 mg IVP Administration Document 07/28/18 09:33 EQ (Rec: 07/28/18 09:33 EQ [id number]) Charges for Administration # of IVP Administrations 1 - Scribe Statement The provider has reviewed the documentation as recorded by the Scribe Aman Davis. All medical record entries made by the Scribe were at my direction and personally dictated by me. I have reviewed the chart and agree that the record accurately reflects my personal performance of the history, physical exam, medical decision making, and the department course for this patient. I have also personally directed, reviewed, and agree with the discharge instructions and disposition. Disposition/Present on Arrival - Present on Arrival Any Indicators Present on Arrival: No History of DVT/PE: No History of Uncontrolled Diabetes: No Urinary Catheter: No History of Decub. Ulcer: No History Surgical Site Infection Following: None - Disposition Have Diagnosis and Disposition been Completed?: Yes Diagnosis: Abdominal pain Disposition: HOME/ ROUTINE Disposition Time: 11:00 Condition: STABLE Discharge Instructions (ExitCare): Acute Abdomen (Belly Pain), Adult (DC) Additional Instructions: return to er with worsening symptoms or concerns. discuss you lab tests with your doctor/clinic. Prescriptions: Famotidine [Pepcid] 20 mg PO DAILY #20 tab Referrals: [facility] [Outside] - Follow up with primary [facility] [place] [Outside] - Follow up with primary Garrick Bonilla MD [Staff Provider] - Follow up with primary Forms: [facility] (Mongolian)
[2018-07-28 09:56] LABS: BASO # 0.01 K/mm3 (0.0-2.0); BASO % 0.4 % (0.0-3.0); EOS % 0.4 % (1.5-5.0); GRAN # 1.36 (1.4-6.5); GRAN % 50.9 % (50.0-68.0); HEMOGLOBIN 11.8 g/dL (14.0-18.0); LYMPH # 0.9 (1.2-3.4); LYMPH % 35.2 % (22.0-35.0); MEAN CELL VOLUME 86.2 fl (80.0-105.0); MEAN CORPUSCULAR HEMOGLOBIN 28.6 pg (25.0-35.0); MEAN CORPUSCULAR HGB CONC 33.1 g/dl (31.0-37.0); MEAN PLATELET VOLUME 10.3 fl (7.0-11.0); MONO # 0.4 (0.1-0.6); MONO % 13.1 % (1.0-6.0); RBC 4.13 10^6/uL (3.5-6.1); RED CELL DISTRIBUTION WIDTH 15.5 % (11.5-14.5)
[2018-07-28 10:05] LABS: WHITE BLOOD COUNT 2.7 10^3/ul (4.5-11.0)
[2018-07-28 10:09] LABS: INR 0.88; PARTIAL THROMBOPLASTIN TIME 26.2 Seconds (25.1-36.5); PROTHROMBIN TIME 10.1 SECONDS (9.4-12.5)
[2018-07-28 10:23] LABS: ALB/GLOB RATIO 1.6 (1.1-1.8); ALT/SGPT 58 U/L (7-56); AST/SGOT 114 U/L (17-59); BLOOD UREA NITROGEN 9 mg/dL (7-21); CALCIUM 9.6 mg/dL (8.4-10.5); GFR NON-AFRICAN AMERICAN > 60; LIPASE 145 U/L (23-300)
--- NOTE | 2018-07-28 11:01 | RAD ---
Date of service: 07/28/2018 HISTORY: abd pain COMPARISON: 06/15/2018 FINDINGS: LUNGS: No active pulmonary disease. PLEURA: No significant pleural effusion identified, no pneumothorax apparent. CARDIOVASCULAR: Normal. OSSEOUS STRUCTURES: No significant abnormalities. VISUALIZED UPPER ABDOMEN: Normal. OTHER FINDINGS: None. IMPRESSION: No active disease.
[2018-07-28 11:09] VITALS: BP 138/88; PULSE 86; RESP 18; TEMP 98.1; O2SAT 99
[2018-07-28 11:45] LABS: URINE BILIRUBIN NEGATIVE (NEGATIVE); URINE BLOOD TRACE-INTACT (NEGATIVE); URINE GLUCOSE (UA) NEGATIVE (NEGATIVE); URINE LEUKOCYTE ESTERASE NEGATIVE Leu/uL (NEGATIVE); URINE PROTEIN TRACE mg/dL (<30 mg/dL); URINE UROBILINOGEN 0.2 E.U./dL (<1 E.U./dL)
[2018-07-28 11:46] LABS: URINE APPEARANCE CLEAR (CLEAR); URINE COLOR YELLOW (YELLOW)
[2018-07-28 12:00] LABS: URINE BACTERIA MANY (NEG); URINE EPITHELIAL CELLS 0 - 2 /hpf (0-5); URINE WBC 0 - 2 /hpf (0-6)
[2018-07-28 12:01] LABS: URINE AMORPHOUS SEDIMENT FEW
--- NOTE | 2018-07-28 17:48 | CARD ---
APPROVED REPORT Date of service: 07/28/2018 EKG Measurement Heart [id number] <Conclusion> Normal sinus rhythm Voltage criteria for left ventricular hypertrophy Abnormal ECG
== END 2018-07-28 11:21 | disposition home or self-care (01) ==
LOC: ED 08:56
DX: R10.9 Unspecified abdominal pain (principal); I10 Essential (primary) hypertension; F10.10 Alcohol abuse, uncomplicated; F17.210 Nicotine dependence, cigarettes, uncomplicated
CPT/HCPCS: 71045; 80053; 81001; 82948; 83690; 83735; 85025; 85610; 85730; 93005; 96374; 96375; 99283; C9113; J2405; J7030

== ENCOUNTER 2018-08-30 09:23 | Emergency (ER) | payer MEDICAID ==
[2018-08-30 09:26] VITALS: BMI 21.2
[2018-08-30] MEDS ORDERED: Pantoprazole 40mg/100mL NS 40 MG/100 ML BAG IV STA (09:42)
[2018-08-30] MEDS ORDERED: Multivitamin (MVI) 10 ML, Thiamine 100 MG, Folic Acid 1 MG in Sodium Chloride 0.9% 1,00... IV ONE (09:43)
--- NOTE | 2018-08-30 09:47 | ED PDOC ---
Arrival/HPI - General Chief Complaint: Chest Pain Time Seen by Provider: 08/30/18 09:34 Historian: Patient - History of Present Illness Time/Duration: Prior to Arrival, Other (this morning) Symptom Onset: Sudden Symptom Course: Unchanged Severity Level: Moderate Activities at Onset: Rest Associated Symptoms (Text): 08/30/18 09:45 Patient complains of abdominal pain nausea vomiting and diarrhea beginning this morning. Patient has had multiple similar episodes previously. He was on an alcohol binge yesterday. Cocaine binge 3 days ago. Past Medical History - Past History Past History: No Previous - Infectious Disease Hx of Infectious Diseases: None - Tetanus Immunization Tetanus Immunization: Unknown - Past Medical History Past Medical History: No Previous - Cardiac Hx Cardiac Disorders: Yes Hx Hypertension: Yes - Pulmonary Hx Respiratory Disorders: No Other/Comment: light smoker - Neurological Hx Neurological Disorder: Yes Hx Dizziness: Yes Other/Comment: neuropathy - HEENT Hx HEENT Disorder: No - Renal Hx Renal Disorder: No - Endocrine/Metabolic Hx Endocrine Disorders: No - Hematological/Oncological Hx Blood Disorders: No - Integumentary Hx Dermatological Disorder: No - Musculoskeletal/Rheumatological Hx Musculoskeletal Disorders: No Hx Falls: No - Gastrointestinal Hx Gastrointestinal Disorders: Yes Hx Colitis: Yes Other/Comment: Colitis - Genitourinary/Gynecological Hx Genitourinary Disorders: No - Psychiatric Hx Psychophysiologic Disorder: Yes Hx Anxiety: Yes Hx Depression: Yes Hx Substance Use: Yes (COCAINE/MARIJUANA) Other/Comment: substance and alcohol abuse - Past Surgical History Past Surgical History: Non-Contributing - Surgical History Hx Musculoskeletal Surgery: Yes (R foot sx with rods/screws placed) Hx Orthopedic Surgery: Yes - Anesthesia Hx Anesthesia: Yes Hx Anesthesia Reactions: No Hx Malignant Hyperthermia: No - Suicidal Assessment Feels Threatened In Home Enviroment: No Family/Social History - Physician Review Nursing Documentation Reviewed: Yes Family/Social History: Unknown Family HX Smoking Status: Light Smoker < 10 Cigarettes Daily Hx Alcohol Use: Yes (ETOH ABUSE. PINT OF VODKA.2-3 BTLS OF VODKA DAILY. LAST DRANK SATU EVENING.) Frequency of alcohol use: Daily Hx Substance Use: Yes (COCAINE/MARIJUANA) Substance used: marijuana & cocaine Hx Substance Use Treatment: No Allergies/Home Meds Allergies/Adverse Reactions: Allergies No Known Allergies Allergy (Verified 06/24/18 08:32) Home Medications: Home Meds Medication Instructions Recorded Confirmed RX: PARoxetine [Paxil] 10 mg PO DAILY 05/09/18 05/09/18 Review of Systems - Physician Review All systems were reviewed & negative as marked: Yes - Review of Systems Constitutional: Normal Respiratory: Normal Cardiovascular: Normal Gastrointestinal: Abdominal Pain, Diarrhea, Nausea, Vomiting, Anorexia. absent: Constipation Genitourinary Male: absent: Dysuria, Frequency, Hematuria Neurological: absent: Headache, Dizziness, Focal Weakness Physical Exam Vital Signs Temp Pulse Resp BP Pulse Ox 08/30/18 09:34 98.1 F 81 18 144/87 100 Temperature: Afebrile Blood Pressure: Normal Pulse: Regular Respiratory Rate: Normal Appearance: Positive for: Well-Appearing, Non-Toxic, Comfortable, Uncomfortable Pain Distress: Mild Mental Status: Positive for: Alert and Oriented X 3 - Systems Exam Head: Present: Atraumatic, Normocephalic Pupils: Present: PERRL Extroacular Muscles: Present: EOMI Conjunctiva: Present: Normal Mouth: Present: Moist Mucous Membranes Pharnyx: No: ERYTHEMA, EXUDATE, TONSILS ENLARGED Neck: Present: Normal Range of Motion Respiratory/Chest: Present: Clear to Auscultation, Good Air Exchange. No: Respiratory Distress, Accessory Muscle Use Cardiovascular: Present: Regular Rate and Rhythm, Normal S1, S2. No: Murmurs Abdomen: No: Tenderness, Distention, Peritoneal Signs, Rebound, Guarding Back: Present: Normal Inspection Upper Extremity: Present: Normal Inspection. No: Cyanosis, Edema Lower Extremity: Present: Normal Inspection. No: Edema Neurological: Present: GCS=15, CN II-XII Intact, Speech Normal, Motor Func Grossly Intact Skin: Present: Warm, Dry, Normal Color. No: Rashes Psychiatric: Present: Alert, Oriented x 3, Normal Insight, Normal Concentration Medical Decision Making ED Course and Treatment: 08/30/18 09:47 EKG shows normal sinus rhythm rate approximately [address] or T-wave changes. 08/30/18 12:05 Symptoms improved. Drug screen positive for cocaine. Alcohol level 92. Discharge home. Follow-up with PMD. Follow up in ER as needed. - RAD Interpretation Radiology Orders: 08/30/18 09:43 CHEST PORTABLE [RAD] Stat Chest one view shows no infiltrate effusion or cardiomegaly. Utility Hand: Radiologist Disposition/Present on Arrival - Present on Arrival Any Indicators Present on Arrival: No History of DVT/PE: No History of Uncontrolled Diabetes: No Urinary Catheter: No History of Decub. Ulcer: No History Surgical Site Infection Following: None - Disposition Have Diagnosis and Disposition been Completed?: Yes Diagnosis: Vomiting, Gastritis, Alcohol abuse, Tobacco abuse, Nausea, Diarrhea, Cocaine abuse Disposition: HOME/ ROUTINE Disposition Time: 12:07 Patient Plan: Discharge Condition: GOOD Discharge Instructions (ExitCare): Cocaine Use Disorder, Nausea and Vomiting, Adult, Alcohol Abuse and Alcoholism (DC), Drug Abuse Treatment Prescriptions: Ondansetron [Zofran Odt] 4 mg SL Q6 #20 odt Forms: [employer] (Bengali)
--- NOTE | 2018-08-30 10:06 | RAD ---
Date of service: 08/30/2018 HISTORY: ap COMPARISON: 07/28/2018 FINDINGS: LUNGS: No active pulmonary disease. PLEURA: No significant pleural effusion identified, no pneumothorax apparent. CARDIOVASCULAR: No aortic atherosclerotic calcification present. Normal cardiac size. No pulmonary vascular congestion. OSSEOUS STRUCTURES: No significant abnormalities. VISUALIZED UPPER ABDOMEN: Normal. OTHER FINDINGS: None. IMPRESSION: No active disease.
[2018-08-30 10:35] LABS: BASO # 0.01 K/mm3 (0.0-2.0); BASO % 0.5 % (0.0-3.0); EOS % 0.5 % (1.5-5.0); GRAN # 1.34 (1.4-6.5); GRAN % 60.2 % (50.0-68.0); HEMOGLOBIN 11.7 g/dL (14.0-18.0); LYMPH # 0.7 (1.2-3.4); LYMPH % 29.3 % (22.0-35.0); MEAN CELL VOLUME 86.3 fl (80.0-105.0); MEAN CORPUSCULAR HEMOGLOBIN 28.6 pg (25.0-35.0); MEAN CORPUSCULAR HGB CONC 33.1 g/dl (31.0-37.0); MEAN PLATELET VOLUME 10.3 fl (7.0-11.0); MONO # 0.2 (0.1-0.6); MONO % 9.5 % (1.0-6.0); RBC 4.09 10^6/uL (3.5-6.1); RED CELL DISTRIBUTION WIDTH 15.2 % (11.5-14.5); WHITE BLOOD COUNT 2.2 10^3/uL (4.5-11.0)
[2018-08-30 10:43] LABS: PH,URINE 6.5 (4.7-8.0); URINE BILIRUBIN NEGATIVE (NEGATIVE); URINE BLOOD NEGATIVE (NEGATIVE); URINE GLUCOSE (UA) NEGATIVE (NEGATIVE); URINE LEUKOCYTE ESTERASE NEGATIVE Leu/uL (NEGATIVE); URINE PROTEIN TRACE mg/dL (<30 mg/dL); URINE UROBILINOGEN 0.2 E.U./dL (<1 E.U./dL)
[2018-08-30 10:44] LABS: URINE APPEARANCE CLEAR (CLEAR); URINE COLOR YELLOW (YELLOW)
[2018-08-30 10:54] LABS: URINE BACTERIA TRACE (NEG); URINE EPITHELIAL CELLS 0 - 2 /hpf (0-5); URINE RBC NEGATIVE /hpf (0-2); URINE WBC 0 - 2 /hpf (0-6)
[2018-08-30 11:33] LABS: ALB/GLOB RATIO 1.6 (1.1-1.8); ALBUMIN 4.2 g/dL (3.0-4.8); ALT/SGPT 39 U/L (7-56); AMYLASE 83 U/L (35-125); AST/SGOT 49 U/L (17-59); BLOOD UREA NITROGEN 14 mg/dL (7-21); CALCIUM 8.6 mg/dL (8.4-10.5); GFR NON-AFRICAN AMERICAN > 60; LIPASE 123 U/L (23-300)
[2018-08-30 11:36] LABS: BARBITURATES, UR NEGATIVE (NEGATIVE); BENZODIAZEPINES, UR NEGATIVE (NEGATIVE); OPIATES, UR NEGATIVE (NEGATIVE); PHENCYCLIDINE, UR NEGATIVE (NEGATIVE)
[2018-08-30 11:43] LABS: TROPONIN I < 0.01 ng/mL
[2018-08-30 12:48] VITALS: BP 150/90; PULSE 84; RESP 16; TEMP 98; O2SAT 96
--- NOTE | 2018-08-30 15:47 | CARD ---
APPROVED REPORT Date of service: 08/30/2018 EKG Measurement Heart [id number] <Conclusion> Normal sinus rhythm Moderate voltage criteria for LVH, may be normal variant Borderline ECG
== END 2018-08-30 12:42 | disposition home or self-care (01) ==
LOC: ED 09:23
DX: F10.10 Alcohol abuse, uncomplicated (principal); F14.10 Cocaine abuse, uncomplicated; K29.70 Gastritis, unspecified, without bleeding; R11.2 Nausea with vomiting, unspecified; R19.7 Diarrhea, unspecified; Z72.0 Tobacco use; I10 Essential (primary) hypertension
CPT/HCPCS: 71045; 80053; 80320; 80324; 80345; 80346; 80349; 80353; 80358; 80361; 81001; 82150; 82550; 82553; 83615; 83690; 83992; 84484; 85025; 93005; 96365; 96375; 99283; C9113; J2405; J3411; J7030

== ENCOUNTER 2018-08-30 12:57 | Emergency (ER) | payer MEDICAID ==
[2018-08-30 12:58] VITALS: BMI 21.2
[2018-08-30 13:17] VITALS: BP 135/92; PULSE 96; RESP 18; TEMP 98.7; O2SAT 98
--- NOTE | 2018-08-30 13:21 | ED PDOC ---
Arrival/HPI - General Chief Complaint: Dizziness/Lightheaded Time Seen by Provider: 08/30/18 13:18 Historian: Patient - History of Present Illness Time/Duration: Prior to Arrival Symptom Onset: Sudden Symptom Course: Unchanged Severity Level: Mild Associated Symptoms (Text): 08/30/18 13:18 Patient was discharged from the emergency department a few minutes ago. He went to the outpatient pharmacy to fill his prescription for Zofran. While there he felt lightheaded and was put into a wheelchair and brought back to the emergency department. Patient is well-known to the emergency Department staff. He was here with abdominal pain nausea vomiting and diarrhea following an alcohol and cocaine binge. There is no chest pain. He was able to fill his prescription for Zofran. He is ambulatory with no difficulty. Past Medical History - Past History Past History: No Previous - Infectious Disease Hx of Infectious Diseases: None - Tetanus Immunization Tetanus Immunization: Unknown - Past Medical History Past Medical History: No Previous - Cardiac Hx Cardiac Disorders: Yes Hx Hypertension: Yes - Pulmonary Hx Respiratory Disorders: No Other/Comment: light smoker - Neurological Hx Neurological Disorder: Yes Hx Dizziness: Yes Other/Comment: neuropathy - HEENT Hx HEENT Disorder: No - Renal Hx Renal Disorder: No - Endocrine/Metabolic Hx Endocrine Disorders: No - Hematological/Oncological Hx Blood Disorders: No - Integumentary Hx Dermatological Disorder: No - Musculoskeletal/Rheumatological Hx Musculoskeletal Disorders: No Hx Falls: No - Gastrointestinal Hx Gastrointestinal Disorders: Yes Hx Colitis: Yes Other/Comment: Colitis - Genitourinary/Gynecological Hx Genitourinary Disorders: No - Psychiatric Hx Psychophysiologic Disorder: Yes Hx Anxiety: Yes Hx Depression: Yes Hx Substance Use: Yes (COCAINE/MARIJUANA) Other/Comment: substance and alcohol abuse - Past Surgical History Past Surgical History: Non-Contributing - Surgical History Hx Musculoskeletal Surgery: Yes (R foot sx with rods/screws placed) Hx Orthopedic Surgery: Yes - Anesthesia Hx Anesthesia: Yes Hx Anesthesia Reactions: No Hx Malignant Hyperthermia: No - Suicidal Assessment Feels Threatened In Home Enviroment: No Family/Social History - Physician Review Nursing Documentation Reviewed: Yes Family/Social History: Unknown Family HX Smoking Status: Light Smoker < 10 Cigarettes Daily Hx Alcohol Use: Yes (ETOH ABUSE. PINT OF VODKA.2-3 BTLS OF VODKA DAILY. LAST DRANK SATU EVENING.) Hx Substance Use: Yes (COCAINE/MARIJUANA) Substance used: marijuana & cocaine Hx Substance Use Treatment: No Allergies/Home Meds Allergies/Adverse Reactions: Allergies No Known Allergies Allergy (Verified 06/24/18 08:32) Home Medications: Home Meds Medication Instructions Recorded Confirmed PARoxetine [Paxil] 10 mg PO DAILY 05/09/18 05/09/18 Review of Systems - Physician Review All systems were reviewed & negative as marked: Yes Physical Exam Vital Signs Temp Pulse Resp BP Pulse Ox 08/30/18 13:15 98.7 F 96 H 18 135/92 H 98 Temperature: Afebrile Blood Pressure: Normal Pulse: Regular Respiratory Rate: Normal Appearance: Positive for: Well-Appearing, Non-Toxic, Comfortable Pain Distress: None Mental Status: Positive for: Alert and Oriented X 3 - Systems Exam Head: Present: Atraumatic, Normocephalic Respiratory/Chest: Present: Clear to Auscultation, Good Air Exchange. No: Respiratory Distress, Accessory Muscle Use Cardiovascular: Present: Regular Rate and Rhythm, Normal S1, S2. No: Murmurs Abdomen: No: Tenderness, Distention, Peritoneal Signs, Rebound, Guarding Upper Extremity: Present: Normal Inspection. No: Cyanosis, Edema Lower Extremity: Present: Normal Inspection. No: Edema Neurological: Present: GCS=15, CN II-XII Intact, Speech Normal, Motor Func Grossly Intact, Normal Cerebellar Funct, Gait Normal Skin: Present: Warm, Dry, Normal Color. No: Rashes Psychiatric: Present: Alert, Oriented x 3, Normal Insight, Normal Concentration Medical Decision Making ED Course and Treatment: 08/30/18 13:20 Discussed with patient that he just had a complete workup several minutes ago. He is aware that his problem is substance abuse. He will take his Zofran. He is ambulatory and will be discharged home. Disposition/Present on Arrival - Present on Arrival Any Indicators Present on Arrival: No History of DVT/PE: No History of Uncontrolled Diabetes: No Urinary Catheter: No History of Decub. Ulcer: No History Surgical Site Infection Following: None - Disposition Have Diagnosis and Disposition been Completed?: Yes Diagnosis: Substance abuse, Dizziness Disposition: HOME/ ROUTINE Disposition Time: 13:21 Patient Plan: Discharge Condition: GOOD Discharge Instructions (ExitCare): Dizziness, Nonvertigo, (DC), Drug Abuse Tr eatment
== END 2018-08-30 13:35 | disposition home or self-care (01) ==
LOC: ED 12:57
DX: R42 Dizziness and giddiness (principal); F19.10 Other psychoactive substance abuse, uncomplicated; I10 Essential (primary) hypertension; F17.210 Nicotine dependence, cigarettes, uncomplicated

== ENCOUNTER 2018-10-08 09:51 | Observation (INO) | payer MEDICAID ==
[2018-10-08] MEDS ORDERED: Sodium Chloride 0.9% 1,000 ML IV STA (10:42)
[2018-10-08 11:58] LABS: BASO # 0.02 K/mm3 (0.0-2.0); BASO % 0.8 % (0.0-3.0); EOS % 0.4 % (1.5-5.0); GRAN # 1.43 (1.4-6.5); GRAN % 55.4 % (50.0-68.0); HEMOGLOBIN 12.6 g/dL (14.0-18.0); LYMPH % 37.6 % (22.0-35.0); MEAN CELL VOLUME 87.8 fl (80.0-105.0); MEAN CORPUSCULAR HGB CONC 33.1 g/dl (31.0-37.0); MEAN PLATELET VOLUME 10.2 fl (7.0-11.0); MONO # 0.2 (0.1-0.6); MONO % 5.8 % (1.0-6.0); RBC 4.34 10^6/uL (3.5-6.1); RED CELL DISTRIBUTION WIDTH 14.9 % (11.5-14.5); WHITE BLOOD COUNT 2.6 10^3/uL (4.5-11.0)
[2018-10-08 12:03] LABS: PH,URINE 7.5 (4.7-8.0); URINE APPEARANCE CLEAR (CLEAR); URINE BILIRUBIN NEGATIVE (NEGATIVE); URINE BLOOD NEGATIVE (NEGATIVE); URINE COLOR YELLOW (YELLOW); URINE GLUCOSE (UA) NEGATIVE (NEGATIVE); URINE LEUKOCYTE ESTERASE NEGATIVE Leu/uL (NEGATIVE); URINE PROTEIN TRACE mg/dL (<30 mg/dL); URINE UROBILINOGEN 0.2 E.U./dL (<1 E.U./dL)
[2018-10-08 12:05] LABS: INR 1.03; PROTHROMBIN TIME 11.8 SECONDS (9.4-12.5)
[2018-10-08 12:12] LABS: URINE BACTERIA SMALL (NEG); URINE EPITHELIAL CELLS 0 - 2 /hpf (0-5); URINE RBC NEGATIVE /hpf (0-2); URINE WBC 0 - 2 /hpf (0-6)
[2018-10-08 12:17] VITALS: O2SAT 100
--- NOTE | 2018-10-08 13:27 | ED PDOC ---
Arrival/HPI - General Chief Complaint: Abdominal Pain Time Seen by Provider: 10/08/18 09:55 Historian: Patient - History of Present Illness Narrative History of Present Illness (Text): 10/08/18 15:30 Patient is a 43 year old male with PMH of HTN, colitis, alcohol abuse who presents to the Emergency Department complaining of diarrhea, vomiting, and associated abdominal pain x 1 day. Abdominal pain is left sided, sharp. Vomiting and diarrhea is non-bloody, 4-5 episodes since this morning. Also c/o left-sided chest pain that radiates through to the back, with associated SOB that began today. He reports that he drank EtOH last night, none today. Last colonoscopy a few months ago, negative per pt. Patient denies trauma/injury, sick contacts, recent changes in diet, drug use, fevers, chills, cough, palpitations, urinary symptoms, headache, dizziness, or any other complaint. Past Medical History - Provider Review Nursing Documentation Reviewed: Yes - Past History Past History: No Previous - Infectious Disease Hx of Infectious Diseases: None - Tetanus Immunization Tetanus Immunization: Unknown - Past Medical History Past Medical History: No Previous - Cardiac Hx Cardiac Disorders: Yes Hx Hypertension: Yes - Pulmonary Hx Respiratory Disorders: No Other/Comment: light smoker - Neurological Hx Neurological Disorder: Yes Hx Dizziness: Yes Other/Comment: neuropathy - HEENT Hx HEENT Disorder: No - Renal Hx Renal Disorder: No - Endocrine/Metabolic Hx Endocrine Disorders: No - Hematological/Oncological Hx Blood Disorders: No - Integumentary Hx Dermatological Disorder: No - Musculoskeletal/Rheumatological Hx Musculoskeletal Disorders: No Hx Falls: No - Gastrointestinal Hx Gastrointestinal Disorders: Yes Hx Colitis: Yes Other/Comment: Colitis - Genitourinary/Gynecological Hx Genitourinary Disorders: No - Psychiatric Hx Psychophysiologic Disorder: Yes Hx Anxiety: Yes Hx Depression: Yes Hx Substance Use: Yes (COCAINE/MARIJUANA) Other/Comment: substance and alcohol abuse - Past Surgical History Past Surgical History: Non-Contributing - Surgical History Hx Musculoskeletal Surgery: Yes (R foot sx with rods/screws placed) Hx Orthopedic Surgery: Yes - Anesthesia Hx Anesthesia: Yes Hx Anesthesia Reactions: No Hx Malignant Hyperthermia: No - Suicidal Assessment Feels Threatened In Home Enviroment: No Family/Social History - Physician Review Nursing Documentation Reviewed: Yes Family/Social History: No Known Family HX Smoking Status: Light Smoker < 10 Cigarettes Daily Hx Alcohol Use: Yes (ETOH ABUSE. PINT OF VODKA.2-3 BTLS OF VODKA DAILY. LAST DRANK SATU EVENING.) Hx Substance Use: Yes (COCAINE/MARIJUANA) Substance used: marijuana & cocaine Hx Substance Use Treatment: No Allergies/Home Meds Allergies/Adverse Reactions: Allergies No Known Allergies Allergy (Verified 10/08/18 18:47) Home Medications: Home Meds Medication Instructions Recorded Confirmed PARoxetine [Paxil] 10 mg PO DAILY 05/09/18 05/09/18 Review of Systems - Physician Review All systems were reviewed & negative as marked: Yes - Review of Systems Constitutional: Normal. absent: Fatigue, Fevers Eyes: Normal. absent: Vision Changes ENT: Normal. absent: Sinus Congestion Respiratory: SOB. absent: Cough Cardiovascular: Chest Pain. absent: Palpitations, Syncope Gastrointestinal: Abdominal Pain, Diarrhea, Nausea, Vomiting Genitourinary Male: Normal. absent: Dysuria, Frequency Musculoskeletal: Back Pain, Neck Pain Skin: Normal. absent: Rash, Skin Lesions Neurological: Normal. absent: Headache, Dizziness Endocrine: Normal Hemo/Lymphatic: Normal Psychiatric: Normal Physical Exam Vital Signs Reviewed: Yes Vital Signs Temp Pulse Resp BP Pulse Ox 10/08/18 13:03 98.5 F 81 18 149/79 100 10/08/18 11:55 99.0 F 76 18 146/99 H 100 10/08/18 09:51 98.7 F 74 18 146/101 H 98 Temperature: Afebrile Blood Pressure: Hypertensive Pulse: Regular Respiratory Rate: Normal Appearance: Positive for: Well-Appearing, Non-Toxic, Comfortable Pain Distress: None Mental Status: Positive for: Alert and Oriented X 3 - Systems Exam Head: Present: Atraumatic, Normocephalic Pupils: Present: PERRL Extroacular Muscles: Present: EOMI Conjunctiva: Present: Normal Ears: Present: Normal, NORMAL TM. No: Erythema Mouth: Present: Moist Mucous Membranes Nose (External): Present: Atraumatic Nose (Internal): Present: Normal Inspection Neck: Present: Normal Range of Motion. No: Meningeal Signs, MIDLINE TENDERNESS, Paraspinal Tenderness, Lymphadenopathy Respiratory/Chest: Present: Clear to Auscultation, Good Air Exchange. No: Respiratory Distress, Accessory Muscle Use, Tender to Palpation Cardiovascular: Present: Regular Rate and Rhythm, Normal S1, S2, Peripheal Pulses Present. No: Murmurs Abdomen: Present: Tenderness (Generalized, greatest LLQ), Distention, Normal Bowel Sounds, Guarding. No: Peritoneal Signs Back: Present: Normal Inspection. No: CVA Tenderness Upper Extremity: Present: Normal Inspection, Normal ROM, NORMAL PULSES, Neurovascularly Intact. No: Cyanosis, Edema Lower Extremity: Present: Normal Inspection, Normal ROM, Neurovascularly Intact. No: Edema Neurological: Present: GCS=15, CN II-XII Intact, Speech Normal, Motor Func Grossly Intact, Normal Sensory Function, Gait Normal Skin: Present: Warm, Dry, Normal Color. No: Rashes Psychiatric: Present: Alert, Oriented x 3, Normal Insight, Normal Concentration, Normal Affect, Normal Mood Medical Decision Making ED Course and Treatment: Initial Plan: * CBC, CMP * Coags * Mg, Phos * Lipase * Troponin * EKG * CT Dissection Protocol * IVF * Pepcid * Zofran ASA held pending CTA results. Labs per baseline EKG per baseline CTA negative for aneurysm, dissection, or other abdominal pathology. Patient continues to c/o chest pain and abdominal pain after medications. Will admit for observation. ASA given. 15:[address] Gill, who accepts patient for observation for chest pain r/o ACS and intractable abdominal pain. - Lab Interpretations Lab Results: 10/08/18 11:45 Lab Results 10/08/18 11:52: Urine Color Yellow, Urine Appearance Clear, Urine pH 7.5, Ur Specific [place] 1.020, Urine Protein Trace H, Urine Glucose (UA) Negative, Urine Ketones Negative, Urine Blood Negative, Urine Nitrate Negative, Urine Bilirubin Negative, Urine Urobilinogen 0.2, Ur Leukocyte Esterase Negative, Urine RBC Negative, Urine WBC 0 - 2, Ur Epithelial Cells 0 - 2, Urine Bacteria Small 10/08/18 11:45: PT 11.8, INR 1.03, APTT 26.0 10/08/18 11:45: WBC 2.6 L, RBC 4.34, Hgb 12.6 L, Hct 38.1 L, MCV 87.8, MCH 29.0, MCHC 33.1, RDW 14.9 H, Plt Count 147, MPV 10.2, Gran % 55.4, Lymph % (Auto) 37.6 H, [place] % (Auto) 5.8, Eos % (Auto) 0.4 L, Baso % (Auto) 0.8, Gran # 1.43, Lymph # (Auto) 1.0 L, [place] # (Auto) 0.2, Eos # (Auto) 0.0, Baso # (Auto) 0.02 10/08/18 11:45 10/08/18 11:45 Lab Results 10/08/18 11:52: Urine Color Yellow, Urine Appearance Clear, Urine pH 7.5, Ur Specific [place] 1.020, Urine Protein Trace H, Urine Glucose (UA) Negative, Urine Ketones Negative, Urine Blood Negative, Urine Nitrate Negative, Urine Bilirubin Negative, Urine Urobilinogen 0.2, Ur Leukocyte Esterase Negative, Urine RBC Negative, Urine WBC 0 - 2, Ur Epithelial Cells 0 - 2, Urine Bacteria Small 10/08/18 11:45: Troponin I < 0.01 10/08/18 11:45: Sodium 139, Potassium 4.0, Chloride 101, Carbon Dioxide 26, Anion Gap 15, BUN 11, Creatinine 0.7 L, Est GFR ( Amer) > 60, Est GFR (Non-Af Amer) > 60, Random Glucose 98, Calcium 9.5, Magnesium 1.4 L, Total Bilirubin 0.5, AST 109 H D, ALT 65 H, Alkaline Phosphatase 61, Total Protein 8.2, Albumin 4.8, Globulin 3.4, Albumin/Globulin Ratio 1.4, Lipase 134 10/08/18 11:45: PT 11.8, INR 1.03, APTT 26.0 10/08/18 11:45: WBC 2.6 L, RBC 4.34, Hgb 12.6 L, Hct 38.1 L, MCV 87.8, MCH 29.0, MCHC 33.1, RDW 14.9 H, Plt Count 147, MPV 10.2, Gran % 55.4, Lymph % (Auto) 37.6 H, [place] % (Auto) 5.8, Eos % (Auto) 0.4 L, Baso % (Auto) 0.8, Gran # 1.43, Lymph # (Auto) 1.0 L, [place] # (Auto) 0.2, Eos # (Auto) 0.0, Baso # (Auto) 0.02 I have reviewed the lab results: Yes Interpretation: No sign. chg./baseline - RAD Interpretation Narrative RAD Interpretations (Text): 10/08/18 15:50 ADDENDUM: The chest was included in the examination. The lungs are clear. There is no adenopathy or effusion. The aorta is normal in appearance fat evidence of dissection or aneurysm. [ Addendum Report Added by Hector Colon MD at 10/08/2018 15:25:58 ] FINDINGS: CT ANGIOGRAPHY: No aortic atherosclerotic calcification or mural plaque present. ABDOMINAL AORTA:: MAJOR AORTIC BRANCHES: Celiac [place]: Unremarkable. Superior mesenteric artery: Unremarkable. Inferior mesenteric artery: Unremarkable. Renal arteries: Unremarkable. PELVIC ARTERIES: Right Common Iliac: Unremarkable. Right External Iliac: Unremarkable. Right Internal Iliac: Unremarkable. Left Common Iliac: Unremarkable. NON-ANGIOGRAPHIC ASPECT OF THE EXAM: LOWER THORAX: Unremarkable. LIVER: Unremarkable. No gross lesion or ductal dilatation. GALLBLADDER AND BILE DUCTS: Unremarkable. PANCREAS: Unremarkable. No gross lesion or ductal dilatation. SPLEEN: Unremarkable. ADRENALS: Unremarkable. No mass. KIDNEYS AND URETERS: Unremarkable. No hydronephrosis. No solid mass. STOMACH AND BOWEL: Unremarkable. No obstruction. No gross mural thickening. APPENDIX: Normal appendix. PERITONEUM: Unremarkable. No free fluid. No free air. LYMPH NODES: Unremarkable. No enlarged lymph nodes. BLADDER: Unremarkable. REPRODUCTIVE: Unremarkable. BONES: No acute fracture. OTHER FINDINGS: None. IMPRESSION: No dissection. Radiology Orders: 10/08/18 10:43 CHEST PORTABLE [RAD] Stat 10/08/18 12:26 ANGIOGRAPHY DISECTION PROTOCOL [CT] Stat Smooth Stucco Resurfacer: Radiologist - EKG Interpretation EKG Interpretation (Text): 10/08/18 13:27 Rate 76; NSR; Normal intervals; No STEMI or T wave inversions. Similar to prior EKGs on record. Interpreted by ED Physician: Yes Type: 12 lead EKG Comparison: Com.w/previous EKG - Medication Orders Current Medication Orders: Sodium Chloride (Sodium Chloride 0.9%) 1,000 mls @ 100 mls/hr IV .Q10H STA Stop: 10/08/18 20:41 Last Admin: 10/08/18 11:29 Dose: 100 mls/hr eMAR Start Stop Document 10/08/18 11:29 OCS (Rec: 10/08/18 11:29 OCS [id number]) Intravenous Solution Start Date 10/08/18 Start Time 11:29 Discontinued Medications Famotidine (Pepcid) 20 mg IVP STAT STA Stop: 10/08/18 10:43 Last Admin: 10/08/18 11:30 Dose: 20 mg IVP Administration Document 10/08/18 11:30 OCS (Rec: 10/08/18 11:30 OCS [id number]) Charges for Administration # of IVP Administrations 1 Ondansetron HCl (Zofran Inj) 4 mg IVP STAT STA Stop: 10/08/18 10:43 Last Admin: 10/08/18 11:30 Dose: 4 mg IVP Administration Document 10/08/18 11:30 OCS (Rec: 10/08/18 11:30 OCS [id number]) Charges for Administration # of IVP Administrations 1 Disposition/Present on Arrival - Present on Arrival Any Indicators Present on Arrival: No History of DVT/PE: No History of Uncontrolled Diabetes: No Urinary Catheter: No History of Decub. Ulcer: No History Surgical Site Infection Following: None - Disposition Have Diagnosis and Disposition been Completed?: Yes Diagnosis: Intractable abdominal pain, Chest pain Disposition: HOSPITALIZED Disposition Time: 15:40 Patient Plan: Admission, Discharge Patient Problems: Current Active Problems Problem Status Onset Chest pain Acute Intractable abdominal pain Acute Condition: STABLE
[2018-10-08 13:30] LABS: ALB/GLOB RATIO 1.4 (1.1-1.8); ALBUMIN 4.8 g/dL (3.0-4.8); BLOOD UREA NITROGEN 11 mg/dL (7-21); CALCIUM 9.5 mg/dL (8.4-10.5); GFR NON-AFRICAN AMERICAN > 60; LIPASE 134 U/L (23-300)
[2018-10-08 13:33] LABS: ALT/SGPT 65 U/L (7-56); AST/SGOT 109 U/L (17-59)
--- NOTE | 2018-10-08 15:20 | CT ---
Date of service: 10/08/2018 PROCEDURE: CT Angiography Abdomen, Pelvis and Lower Extremity with Contrast HISTORY: chest pain, abdominal pain COMPARISON: None. TECHNIQUE: Technique: CT angiography of the abdomen, pelvis and bilateral lower extremities performed in the arterial phase of enhancement. Coronal and sagittal reformats, and well as rotating MIP images of the vessels generated at the workstation. Intravenous contrast dose: Radiation dose: Total exam DLP = 575.49 mGy-cm. This CT exam was performed using one or more of the following dose reduction techniques: Automated exposure control, adjustment of the mA and/or kV according to patient size, and/or use of iterative reconstruction technique. FINDINGS: CT ANGIOGRAPHY: No aortic atherosclerotic calcification or mural plaque present. ABDOMINAL AORTA:: MAJOR AORTIC BRANCHES: Celiac [place]: Unremarkable. Superior mesenteric artery: Unremarkable. Inferior mesenteric artery: Unremarkable. Renal arteries: Unremarkable. PELVIC ARTERIES: Right Common Iliac: Unremarkable. Right External Iliac: Unremarkable. Right Internal Iliac: Unremarkable. Left Common Iliac: Unremarkable. Left External Iliac: Unremarkable. Left Internal Iliac: Unremarkable. NON-ANGIOGRAPHIC ASPECT OF THE EXAM: LOWER THORAX: Unremarkable. LIVER: Unremarkable. No gross lesion or ductal dilatation. GALLBLADDER AND BILE DUCTS: Unremarkable. PANCREAS: Unremarkable. No gross lesion or ductal dilatation. SPLEEN: Unremarkable. ADRENALS: Unremarkable. No mass. KIDNEYS AND URETERS: Unremarkable. No hydronephrosis. No solid mass. STOMACH AND BOWEL: Unremarkable. No obstruction. No gross mural thickening. APPENDIX: Normal appendix. PERITONEUM: Unremarkable. No free fluid. No free air. LYMPH NODES: Unremarkable. No enlarged lymph nodes. BLADDER: Unremarkable. REPRODUCTIVE: Unremarkable. BONES: No acute fracture. OTHER FINDINGS: None. IMPRESSION: Normal aortic dissection.
[2018-10-08] MEDS ORDERED: Magnesium Sulfate 2 gm/50 ml 2 GM/50 ML BAG IVPB ONE (16:04)
[2018-10-08] MEDS ORDERED: Multivitamin (MVI) 10 ML, Thiamine 100 MG, Folic Acid 1 MG in Sodium Chloride 0.9% 1,00... IV ONE (16:13)
--- NOTE | 2018-10-08 18:23 | CP.PCM.HP ---
<GilbertAbdulazizd - Last Filed: 10/08/18 17:41> History of Present Illness - History of Present Illness History of Present Illness: Deborah Hunt, PGY-1 Medicine H&P note for Dr. Oliver: CC: Abd pain, nausea, vomiting, diarrhea Pt is a 43 yo M with pmhx of HTN, colitis, Etoh abuse, anxiety and depression who presents for abd pain, vomiting, diarrhea which started yesterday morning. Pt reports that he had 3 bouts of clear, non-bloody non-billious vomitus and 5 bouts of loose nonbloody or dark stools. He denies eating at a restaurant, recent travel, or any new foods. He denies any sick contacts. He currently admits to [facility] abd pain that is 8/10 in intensity. He admits at this time to [place], but denies fevers, chills, palpitations, urinary complaints, headache, dizziness or any other complaints. He states that he was having some chest pain before but that was a single episode of about 5 seconds when he was coughing and has since resolved. Pmhx: HTN, colitis, Etoh abuse, anxiety and depression Pshx: R ankle with rods and screws Meds: Paxil 10, Amlodipine 5 All: NKDA Social: 1/2 ppd x 31 yrs, daily etoh abuse 1 pint of vodka, cocaine use last wk, marijuana use daily Fam: non-contributory Present on Admission - Present on Admission Any Indicators Present on Admission: No Review of Systems - Review of Systems Review of Systems: 12 point ROS is reviewed and negative except for noted in HPI Past Patient History - Infectious Disease Hx of Infectious Diseases: None - Tetanus Immunizations Tetanus Immunization: Unknown - Past Medical History & Family History Past Medical History?: Yes - Past Social History Smoking Status: Light Smoker < 10 Cigarettes Daily - CARDIAC Hx Cardiac Disorders: Yes Hx Hypertension: Yes - PULMONARY Hx Respiratory Disorders: No Other/Comment: light smoker - NEUROLOGICAL Hx Neurological Disorder: Yes Hx Dizziness: Yes Other/Comment: neuropathy - HEENT Hx HEENT Problems: No - RENAL Hx Chronic Kidney Disease: No - ENDOCRINE/METABOLIC Hx Endocrine Disorders: No - HEMATOLOGICAL/ONCOLOGICAL Hx Blood Disorders: No - INTEGUMENTARY Hx Dermatological Problems: No - MUSCULOSKELETAL/RHEUMATOLOGICAL Hx Musculoskeletal Disorders: No Hx Falls: No - GASTROINTESTINAL Hx Gastrointestinal Disorders: Yes Hx Colitis: Yes Other/Comment: Colitis - GENITOURINARY/GYNECOLOGICAL Hx Genitourinary Disorders: No - PSYCHIATRIC Hx Psychophysiologic Disorder: Yes Hx Anxiety: Yes Hx Depression: Yes Hx Substance Use: Yes (COCAINE/MARIJUANA) Other/Comment: substance and alcohol abuse - SURGICAL HISTORY Hx Musculoskeletal Surgery: Yes (R foot sx with rods/screws placed) Hx Orthopedic Surgery: Yes - ANESTHESIA Hx Anesthesia: Yes Hx Anesthesia Reactions: No Hx Malignant Hyperthermia: No Meds Home Medications: Home Medication List Medication Instructions Recorded Confirmed Type Folic Acid 1 mg PO DAILY #30 tab 10/09/18 Rx Multivitamin Therapeutic Tab 1 tab PO 0800 #30 tab 10/09/18 Rx [Thera Tab] Thiamine [Vitamin B1 Tab] 100 mg PO DAILY #30 tab 10/09/18 Rx Allergies/Adverse Reactions: Allergies Allergy/AdvReac Type Severity Reaction Status Date / Time No Known Allergies Allergy Verified 10/08/18 18:47 Physical Exam - Constitutional Appears: Well, Non-toxic, No Acute Distress - Head Exam Head Exam: ATRAUMATIC, NORMAL INSPECTION, NORMOCEPHALIC - Eye Exam Eye Exam: EOMI, Normal appearance, PERRL - Respiratory Exam Respiratory Exam: Chest Wall Tenderness, Clear to Auscultation Bilateral, NORMAL BREATHING PATTERN. absent: Accessory Muscle Use, Decreased Breath Sounds, Rales, Rhonchi, Wheezes, Respiratory Distress, Stridor - Cardiovascular Exam Cardiovascular Exam: RRR, +S1, +S2. absent: Gallop, Rubs - GI/Abdominal Exam GI & Abdominal Exam: Normal Bowel Sounds, Soft. absent: Firm, Guarding, Hernia, Tenderness - Extremities Exam Extremities exam: Negative for: calf tenderness, pedal edema, tenderness - Back Exam Back exam: NORMAL INSPECTION. absent: CVA tenderness (L), CVA tenderness (R) - Neurological Exam Neurological exam: Alert, Oriented x3 - Psychiatric Exam Psychiatric exam: Normal Affect, Normal Mood - Skin Skin Exam: Dry, Normal Color, Warm Results - Vital Signs Recent Vital Signs: Last Vital Signs Temp 98.3 F 10/08/18 16:23 Pulse 79 10/08/18 16:23 Resp 18 10/08/18 16:23 BP 144/99 H 10/08/18 16:23 Pulse Ox 100 10/08/18 16:23 - Labs Result Diagrams: 10/08/18 11:45 10/08/18 11:45 Labs: Laboratory Results - last 24 hr 10/08/18 10/08/18 10/08/18 11:45 11:45 11:45 WBC 2.6 L RBC 4.34 Hgb 12.6 L Hct 38.1 L MCV 87.8 MCH 29.0 MCHC 33.1 RDW 14.9 H Plt Count 147 MPV 10.2 Gran % 55.4 Lymph % (Auto) 37.6 H [place] % (Auto) 5.8 Eos % (Auto) 0.4 L Baso % (Auto) 0.8 Gran # 1.43 Lymph # (Auto) 1.0 L [place] # (Auto) 0.2 Eos # (Auto) 0.0 Baso # (Auto) 0.02 PT 11.8 INR 1.03 APTT 26.0 Sodium 139 Potassium 4.0 Chloride 101 Carbon Dioxide 26 Anion Gap 15 BUN 11 Creatinine 0.7 L Est GFR ( Amer) > 60 Est GFR (Non-Af Amer) > 60 Random Glucose 98 Calcium 9.5 Magnesium 1.4 L Total Bilirubin 0.5 AST 109 H D ALT 65 H Alkaline Phosphatase 61 Troponin I Total Protein 8.2 Albumin 4.8 Globulin 3.4 Albumin/Globulin Ratio 1.4 Lipase 134 Urine Color Urine Appearance Urine pH Ur Specific [place] Urine Protein Urine Glucose (UA) Urine Ketones Urine Blood Urine Nitrate Urine Bilirubin Urine Urobilinogen Ur Leukocyte Esterase Urine RBC Urine WBC Ur Epithelial Cells Urine Bacteria Alcohol, Quantitative 10/08/18 10/08/18 10/08/18 11:45 11:52 16:00 WBC RBC Hgb Hct MCV MCH MCHC RDW Plt Count MPV Gran % Lymph % (Auto) [place] % (Auto) Eos % (Auto) Baso % (Auto) Gran # Lymph # (Auto) [place] # (Auto) Eos # (Auto) Baso # (Auto) PT INR APTT Sodium Potassium Chloride Carbon Dioxide Anion Gap BUN Creatinine Est GFR ( Amer) Est GFR (Non-Af Amer) Random Glucose Calcium Magnesium Total Bilirubin AST ALT Alkaline Phosphatase Troponin I < 0.01 Total Protein Albumin Globulin Albumin/Globulin Ratio Lipase Urine Color Yellow Urine Appearance Clear Urine pH 7.5 Ur Specific [place] 1.020 Urine Protein Trace H Urine Glucose (UA) Negative Urine Ketones Negative Urine Blood Negative Urine Nitrate Negative Urine Bilirubin Negative Urine Urobilinogen 0.2 Ur Leukocyte Esterase Negative Urine RBC Negative Urine WBC 0 - 2 Ur Epithelial Cells 0 - 2 Urine Bacteria Small Alcohol, Quantitative 14 H Assessment & Plan - Assessment and Plan (Free Text) Assessment: Pt is a 43 yo M with pmhx of HTN, colitis, Etoh abuse, anxiety and depression who presents for abd pain, vomiting, diarrhea which started yesterday morning. Plan: 1. Viral Gastroenteritis: - NS @ 100/hr - Zofran 4 q6 - Liquid diet 2. Leukopenia likely 2/2 etOH abuse: - Educated on etoh cessation - Will continue to monitor 3. Hx of EtOH abuse: - Last drink was yesterday - UDS - Mag sulfate - folic acid, thiamine - CIWA protocol - Ativan 1 q6 PRN - EtOH cessation education 4. Hx of HTN: - Norvasc 5 5. Chest pain with coughing: - Initial trop (-), f/u serial trops 6. PPX: - GI: Pepcid 20 BID - DVT: SCDs Pt seen and discussed with Dr. Melody Hunt, PGY-1 <Yi Oliver - Last Filed: 10/12/18 12:34> Results - Vital Signs Recent Vital Signs: Last Vital Signs Temp 98.6 F 10/09/18 12:00 Pulse 81 10/09/18 17:17 Resp 20 10/09/18 16:59 BP 139/104 H 10/09/18 17:17 Pulse Ox 100 10/08/18 18:49 - Labs Result Diagrams: 10/09/18 06:20 10/09/18 06:20 Attending/Attestation - Attestation I have personally seen and examined this patient.: Yes I have fully participated in the care of the patient.: Yes I have reviewed all pertinent clinical information: Yes Notes (Text): 10/12/18 12:31 attending note; Patient seen and examined with resident in ER. Patient is alert and awake. Complaining of abdominal discomfort. Complaining of nausea and vomiting. Patient continues to drink alcohol despite multiple admission for alcoholic gastritis and pancreatitis in the past. Patient is a 43 year old male with pmhx of HTN, colitis, Etoh abuse, anxiety and depression who presents for abdominal pain, vomiting, diarrhea which started yesterday morning. Acute alcoholic gastritis. Nothing by mouth. Started on IV fluids. Monitor for alcohol withdrawal symptoms. Continue IV Ativan when necessary. Continue multivitamin, thiamine, folic acid. Complete alcohol cessation is strongly advised. Upon discharge patient will follow up with PMD Dr. Heard. 10/12/18 12:34
--- NOTE | 2018-10-08 20:28 | CARD ---
APPROVED REPORT Date of service: 10/08/2018 EKG Measurement Heart [id number] <Conclusion> Normal sinus rhythm Moderate voltage criteria for LVH, may be normal variant Borderline ECG
[2018-10-08 22:43] VITALS: BMI 21.0
[2018-10-08] MEDS ORDERED: Pneumococcal 23-Valent Vaccine IM ONE (22:43)
[2018-10-08] MEDS ORDERED: Influenza Vaccine 60 mcg/0.5 mL SYR (4YR UP) IM ONE (22:43)
[2018-10-09 07:00] LABS: BASO # 0.01 K/mm3 (0.0-2.0); BASO % 0.3 % (0.0-3.0); EOS # 0.1 (0.0-0.7); EOS % 1.4 % (1.5-5.0); GRAN # 1.64 (1.4-6.5); GRAN % 46.9 % (50.0-68.0); HEMOGLOBIN 11.9 g/dL (14.0-18.0); LYMPH # 1.4 (1.2-3.4); LYMPH % 40.3 % (22.0-35.0); MEAN CELL VOLUME 87.5 fl (80.0-105.0); MEAN CORPUSCULAR HEMOGLOBIN 28.5 pg (25.0-35.0); MEAN CORPUSCULAR HGB CONC 32.6 g/dl (31.0-37.0); MEAN PLATELET VOLUME 11.2 fl (7.0-11.0); MONO # 0.4 (0.1-0.6); MONO % 11.1 % (1.0-6.0); RBC 4.17 10^6/uL (3.5-6.1); RED CELL DISTRIBUTION WIDTH 14.8 % (11.5-14.5); WHITE BLOOD COUNT 3.5 10^3/uL (4.5-11.0)
[2018-10-09 07:24] LABS: ALB/GLOB RATIO 1.5 (1.1-1.8); ALBUMIN 4.5 g/dL (3.0-4.8); ALT/SGPT 57 U/L (7-56); AST/SGOT 83 U/L (17-59); BLOOD UREA NITROGEN 6 mg/dL (7-21); CALCIUM 9.3 mg/dL (8.4-10.5); GFR NON-AFRICAN AMERICAN > 60
[2018-10-09] MEDS ORDERED: Multivitamin Therapeutic Tab PO SCH (08:00)
[2018-10-09 09:34] LABS: BARBITURATES, UR NEGATIVE (NEGATIVE); BENZODIAZEPINES, UR NEGATIVE (NEGATIVE); OPIATES, UR NEGATIVE (NEGATIVE); PHENCYCLIDINE, UR NEGATIVE (NEGATIVE)
[2018-10-09 14:18] VITALS: TEMP 98.6
[2018-10-09 17:00] VITALS: BP 139/104; PULSE 81; RESP 20
--- NOTE | 2018-10-12 14:24 | CP.PCM.DIS ---
<Deborah Hunt - Last Filed: 10/12/18 14:21> Provider - Provider Date of Admission: 10/08/18 15:37 Attending physician: Cabrera Gill MD Primary care physician: Griselda Heard MD Consults: 10/08/18 22:43 Inpatient [employer] Me[employer] Referral Routine Comment: Physician Instructions: Reason For Exam: EVALUATION Transition In Care/Readmission Reduction Routine Comment: Physician Instructions: Reason For Exam: EVALUATION Time Spent in preparation of Discharge (in minutes): 45 Diagnosis - Discharge Diagnosis (1) Abdominal pain Status: Acute Priority: Medium Hospital Course - Lab Results Lab Results: Most Recent Lab Values WBC 3.5 10^3/uL (4.5-11.0) L D 10/09/18 06:20 RBC 4.17 10^6/uL (3.5-6.1) 10/09/18 06:20 Hgb 11.9 g/dL (14.0-18.0) L 10/09/18 06:20 Hct 36.5 % (42.0-52.0) L 10/09/18 06:20 MCV 87.5 fl (80.0-105.0) 10/09/18 06:20 MCH 28.5 pg (25.0-35.0) 10/09/18 06:20 MCHC 32.6 g/dl (31.0-37.0) 10/09/18 06:20 RDW 14.8 % (11.5-14.5) H 10/09/18 06:20 Plt Count 144 10^3/uL (120.0-450.0) 10/09/18 06:20 MPV 11.2 fl (7.0-11.0) H 10/09/18 06:20 Gran % 46.9 % (50.0-68.0) L 10/09/18 06:20 Lymph % (Auto) 40.3 % (22.0-35.0) H 10/09/18 06:20 [place] % (Auto) 11.1 % (1.0-6.0) H 10/09/18 06:20 Eos % (Auto) 1.4 % (1.5-5.0) L 10/09/18 06:20 Baso % (Auto) 0.3 % (0.0-3.0) 10/09/18 06:20 Gran # 1.64 (1.4-6.5) 10/09/18 06:20 Lymph # (Auto) 1.4 (1.2-3.4) 10/09/18 06:20 [place] # (Auto) 0.4 (0.1-0.6) 10/09/18 06:20 Eos # (Auto) 0.1 (0.0-0.7) 10/09/18 06:20 Baso # (Auto) 0.01 K/mm3 (0.0-2.0) 10/09/18 06:20 PT 11.8 SECONDS (9.4-12.5) 10/08/18 11:45 INR 1.03 10/08/18 11:45 APTT 26.0 Seconds (25.1-36.5) 10/08/18 11:45 Sodium 134 mmol/L (132-148) 10/09/18 06:20 Potassium 3.3 mmol/L (3.6-5.0) L 10/09/18 06:20 Chloride 99 mmol/L (98-107) 10/09/18 06:20 Carbon Dioxide 26 mmol/L (21-33) 10/09/18 06:20 Anion Gap 12 (10-20) 10/09/18 06:20 BUN 6 mg/dL (7-21) L 10/09/18 06:20 Creatinine 0.7 mg/dl (0.8-1.5) L 10/09/18 06:20 Est GFR ( Amer) > 60 10/09/18 06:20 Est GFR (Non-Af Amer) > 60 10/09/18 06:20 POC Glucose (mg/dL) 139 mg/dL (65-110) H 10/09/18 16:19 Random Glucose 103 mg/dL (70-110) 10/09/18 06:20 Calcium 9.3 mg/dL (8.4-10.5) 10/09/18 06:20 Phosphorus 3.8 mg/dL (2.5-4.5) 10/09/18 06:20 Magnesium 1.7 mg/dL (1.7-2.2) 10/09/18 06:20 Total Bilirubin 1.1 mg/dL (0.2-1.3) 10/09/18 06:20 AST 83 U/L (17-59) H D 10/09/18 06:20 ALT 57 U/L (7-56) H 10/09/18 06:20 Alkaline Phosphatase 56 U/L (38-126) 10/09/18 06:20 Troponin I < 0.01 ng/mL 10/08/18 23:30 Total Protein 7.6 g/dL (5.8-8.3) 10/09/18 06:20 Albumin 4.5 g/dL (3.0-4.8) 10/09/18 06:20 Globulin 3.1 gm/dL 10/09/18 06:20 Albumin/Globulin Ratio 1.5 (1.1-1.8) 10/09/18 06:20 Lipase 134 U/L (23-300) 10/08/18 11:45 Urine Color Yellow (YELLOW) 10/08/18 11:52 Urine Appearance Clear (CLEAR) 10/08/18 11:52 Urine pH 7.5 (4.7-8.0) 10/08/18 11:52 Ur Specific [place] 1.020 (1.005-1.035) 10/08/18 11:52 Urine Protein Trace mg/dL (<30 mg/dL) H 10/08/18 11:52 Urine Glucose (UA) Negative mg/dL (NEGATIVE) 10/08/18 11:52 Urine Ketones Negative mg/dL (NEGATIVE) 10/08/18 11:52 Urine Blood Negative (NEGATIVE) 10/08/18 11:52 Urine Nitrate Negative (NEGATIVE) 10/08/18 11:52 Urine Bilirubin Negative (NEGATIVE) 10/08/18 11:52 Urine Urobilinogen 0.2 E.U./dL (<1 E.U./dL) 10/08/18 11:52 Ur Leukocyte Esterase Negative Georges/uL (NEGATIVE) 10/08/18 11:52 Urine RBC Negative /hpf (0-2) 10/08/18 11:52 Urine WBC 0 - 2 /hpf (0-6) 10/08/18 11:52 Ur Epithelial Cells 0 - 2 /hpf (0-5) 10/08/18 11:52 Urine Bacteria Small (NEG) 10/08/18 11:52 Urine Opiates Screen Negative (NEGATIVE) 10/08/18 11:52 Urine Methadone Screen Negative (NEGATIVE) 10/08/18 11:52 Ur Barbiturates Screen Negative (NEGATIVE) 10/08/18 11:52 Ur Phencyclidine Scrn Negative (NEGATIVE) 10/08/18 11:52 Ur Amphetamines Screen Negative (NEGATIVE) 10/08/18 11:52 U Benzodiazepines Scrn Negative (NEGATIVE) 10/08/18 11:52 U Oth Cocaine Metabols Negative (NEGATIVE) 10/08/18 11:52 U Cannabinoids Screen Negative (NEGATIVE) 10/08/18 11:52 Alcohol, Quantitative 14 mg/dL (0-10) H 10/08/18 16:00 - Hospital Course Hospital Course: Hospital Course: Pt was being worked up for alcoholic vs viral gasroenteritis. Pt was placed NPO due to continued status of nausea and vomiting. Pt was also started on IVFs while NPO. Pt was also given mutivitamins, folic acid and thiamine. Pt was being monitored for EtOH withdrawl and placed on CIWA protocol. Pt has ativan 1 q6 PRN for the beginnings of withdrawl symptoms. Pt was reassessed in AM and stated that he has improval of symptoms. He then was advanced and tolerated a regular diet. Pt was educated on EtOH cessation. Medical plan for d/c was discussed with the pt and the pt expressed understanding and agreement with medical plan. All of the pts questions and concerns were addressed prior to d/c. Discharge Exam - Head Exam Head Exam: ATRAUMATIC, NORMAL INSPECTION, NORMOCEPHALIC - Eye Exam Eye Exam: EOMI, Normal appearance, PERRL - Respiratory Exam Respiratory Exam: Clear to PA & Lateral, NORMAL BREATHING PATTERN, UNREMARKABLE. absent: Accessory Muscle Use, Rales, Rhonchi, Wheezes, Respiratory Distress, Stridor - Cardiovascular Exam Cardiovascular Exam: RRR, +S1, +S2. absent: Gallop, Rubs - GI/Abdominal Exam GI & Abdominal Exam: Normal Bowel Sounds, Soft, Unremarkable. absent: Distended, Firm, Guarding, Tenderness - Extremities Exam Extremities exam: normal capillary refill, normal inspection, pedal pulses present - Back Exam Back exam: absent: CVA tenderness (L), CVA tenderness (R), NORMAL INSPECTION - Neurological Exam Neurological exam: Alert, Oriented x3 - Psychiatric Exam Psychiatric exam: Normal Affect, Normal Mood - Skin Skin Exam: Dry, Normal Color, Warm Discharge Plan - Discharge Medications Prescriptions: Folic Acid 1 mg PO DAILY #30 tab Multivitamin Therapeutic Tab [Thera Tab] 1 tab PO 0800 #30 tab Thiamine [Vitamin B1 Tab] 100 mg PO DAILY #30 tab - Follow Up Plan Condition: STABLE Disposition: HOME/ ROUTINE Instructions: Chest Pain (DC), Abdominal Pain (ED) Additional Instructions: Please follow up with your primary medical doctor, Dr. Heard in 3-5 days. Please refrain from alcohol and drug use. Take Protonix twice per day Take Multivitamin, Folic acid and Thiamine once daily If your symptoms, worsen please go to nearest emergency department. Referrals: Griselda Heard MD [Primary Care Provider] - <[email or web address] - Last Filed: 10/12/18 14:39> Provider - Provider Date of Admission: 10/08/18 15:37 Attending physician: Cabrera Gill MD Primary care physician: Griselda Heard MD Consults: 10/08/18 22:43 Inpatient [employer] Me[employer] Referral Routine Comment: Physician Instructions: Reason For Exam: EVALUATION Transition In Care/Readmission Reduction Routine Comment: Physician Instructions: Reason For Exam: EVALUATION Hospital Course - Lab Results Lab Results: Most Recent Lab Values WBC 3.5 10^3/uL (4.5-11.0) L D 10/09/18 06:20 RBC 4.17 10^6/uL (3.5-6.1) 10/09/18 06:20 Hgb 11.9 g/dL (14.0-18.0) L 10/09/18 06:20 Hct 36.5 % (42.0-52.0) L 10/09/18 06:20 MCV 87.5 fl (80.0-105.0) 10/09/18 06:20 MCH 28.5 pg (25.0-35.0) 10/09/18 06:20 MCHC 32.6 g/dl (31.0-37.0) 10/09/18 06:20 RDW 14.8 % (11.5-14.5) H 10/09/18 06:20 Plt Count 144 10^3/uL (120.0-450.0) 10/09/18 06:20 MPV 11.2 fl (7.0-11.0) H 10/09/18 06:20 Gran % 46.9 % (50.0-68.0) L 10/09/18 06:20 Lymph % (Auto) 40.3 % (22.0-35.0) H 10/09/18 06:20 [place] % (Auto) 11.1 % (1.0-6.0) H 10/09/18 06:20 Eos % (Auto) 1.4 % (1.5-5.0) L 10/09/18 06:20 Baso % (Auto) 0.3 % (0.0-3.0) 10/09/18 06:20 Gran # 1.64 (1.4-6.5) 10/09/18 06:20 Lymph # (Auto) 1.4 (1.2-3.4) 10/09/18 06:20 [place] # (Auto) 0.4 (0.1-0.6) 10/09/18 06:20 Eos # (Auto) 0.1 (0.0-0.7) 10/09/18 06:20 Baso # (Auto) 0.01 K/mm3 (0.0-2.0) 10/09/18 06:20 PT 11.8 SECONDS (9.4-12.5) 10/08/18 11:45 INR 1.03 10/08/18 11:45 APTT 26.0 Seconds (25.1-36.5) 10/08/18 11:45 Sodium 134 mmol/L (132-148) 10/09/18 06:20 Potassium 3.3 mmol/L (3.6-5.0) L 10/09/18 06:20 Chloride 99 mmol/L (98-107) 10/09/18 06:20 Carbon Dioxide 26 mmol/L (21-33) 10/09/18 06:20 Anion Gap 12 (10-20) 10/09/18 06:20 BUN 6 mg/dL (7-21) L 10/09/18 06:20 Creatinine 0.7 mg/dl (0.8-1.5) L 10/09/18 06:20 Est GFR ( Amer) > 60 10/09/18 06:20 Est GFR (Non-Af Amer) > 60 10/09/18 06:20 POC Glucose (mg/dL) 139 mg/dL (65-110) H 10/09/18 16:19 Random Glucose 103 mg/dL (70-110) 10/09/18 06:20 Calcium 9.3 mg/dL (8.4-10.5) 10/09/18 06:20 Phosphorus 3.8 mg/dL (2.5-4.5) 10/09/18 06:20 Magnesium 1.7 mg/dL (1.7-2.2) 10/09/18 06:20 Total Bilirubin 1.1 mg/dL (0.2-1.3) 10/09/18 06:20 AST 83 U/L (17-59) H D 10/09/18 06:20 ALT 57 U/L (7-56) H 10/09/18 06:20 Alkaline Phosphatase 56 U/L (38-126) 10/09/18 06:20 Troponin I < 0.01 ng/mL 10/08/18 23:30 Total Protein 7.6 g/dL (5.8-8.3) 10/09/18 06:20 Albumin 4.5 g/dL (3.0-4.8) 10/09/18 06:20 Globulin 3.1 gm/dL 10/09/18 06:20 Albumin/Globulin Ratio 1.5 (1.1-1.8) 10/09/18 06:20 Lipase 134 U/L (23-300) 10/08/18 11:45 Urine Color Yellow (YELLOW) 10/08/18 11:52 Urine Appearance Clear (CLEAR) 10/08/18 11:52 Urine pH 7.5 (4.7-8.0) 10/08/18 11:52 Ur Specific [place] 1.020 (1.005-1.035) 10/08/18 11:52 Urine Protein Trace mg/dL (<30 mg/dL) H 10/08/18 11:52 Urine Glucose (UA) Negative mg/dL (NEGATIVE) 10/08/18 11:52 Urine Ketones Negative mg/dL (NEGATIVE) 10/08/18 11:52 Urine Blood Negative (NEGATIVE) 10/08/18 11:52 Urine Nitrate Negative (NEGATIVE) 10/08/18 11:52 Urine Bilirubin Negative (NEGATIVE) 10/08/18 11:52 Urine Urobilinogen 0.2 E.U./dL (<1 E.U./dL) 10/08/18 11:52 Ur Leukocyte Esterase Negative Georges/uL (NEGATIVE) 10/08/18 11:52 Urine RBC Negative /hpf (0-2) 10/08/18 11:52 Urine WBC 0 - 2 /hpf (0-6) 10/08/18 11:52 Ur Epithelial Cells 0 - 2 /hpf (0-5) 10/08/18 11:52 Urine Bacteria Small (NEG) 10/08/18 11:52 Urine Opiates Screen Negative (NEGATIVE) 10/08/18 11:52 Urine Methadone Screen Negative (NEGATIVE) 10/08/18 11:52 Ur Barbiturates Screen Negative (NEGATIVE) 10/08/18 11:52 Ur Phencyclidine Scrn Negative (NEGATIVE) 10/08/18 11:52 Ur Amphetamines Screen Negative (NEGATIVE) 10/08/18 11:52 U Benzodiazepines Scrn Negative (NEGATIVE) 10/08/18 11:52 U Oth Cocaine Metabols Negative (NEGATIVE) 10/08/18 11:52 U Cannabinoids Screen Negative (NEGATIVE) 10/08/18 11:52 Alcohol, Quantitative 14 mg/dL (0-10) H 10/08/18 16:00 Attending/Attestation - Attestation I have personally seen and examined this patient.: Yes I have fully participated in the care of the patient.: Yes I have reviewed all pertinent clinical information, including history, physical exam and plan: Yes Notes (Text): 10/12/18 14:38 attending note; Patient seen and examined with resident. Patient is alert and awake. Complaining of abdominal discomfort. Complaining of nausea and vomiting. Patient continues to drink alcohol despite multiple admission for alcoholic gastritis and pancreatitis in the past. Patient is a 43 year old male with pmhx of HTN, colitis, Etoh abuse, anxiety and depression who presents for abdominal pain, vomiting, diarrhea which started yesterday morning. Acute alcoholic gastritis. currently tolerating diet. Denies any chest pain; cardiac enzymes negative. Continue multivitamin, thiamine, folic acid. Complete alcohol cessation is strongly advised. patient follows up with GI as outpatient. Upon discharge patient will follow up with PMD Dr. Heard.
== END 2018-10-09 18:11 | disposition home or self-care (01) ==
LOC: ED 09:51 → ERH 15:37 → 2RSO 18:52
PROVIDERS: ADMIT Hospitalist; ATTEND Hospitalist
DX: K29.00 Acute gastritis without bleeding (principal); K29.20 Alcoholic gastritis without bleeding; A08.4 Viral intestinal infection, unspecified; D72.818 Other decreased white blood cell count; F10.10 Alcohol abuse, uncomplicated; F12.90 Cannabis use, unspecified, uncomplicated; F14.90 Cocaine use, unspecified, uncomplicated; I10 Essential (primary) hypertension; F41.9 Anxiety disorder, unspecified; F32.89 Other specified depressive episodes; R07.9 Chest pain, unspecified; R05 Cough; F17.210 Nicotine dependence, cigarettes, uncomplicated; R10.9 Unspecified abdominal pain; Y90.0 Blood alcohol level of less than 20 mg/100 ml
CPT/HCPCS: 36415; 71275; 74175; 80053; 80320; 80324; 80345; 80346; 80349; 80353; 80358; 80361; 81001; 82948; 83690; 83735; 83992; 84100; 84484; 85025; 85610; 85730; 93005; 96365; 96375; 96376; 99285; C9113; G0378; J2405; J3411; J7030; Q9967

== ENCOUNTER 2018-10-31 04:10 | Observation (INO) | payer MEDICAID ==
[2018-10-31 04:12] VITALS: BMI 21.6
--- NOTE | 2018-10-31 04:22 | ED PDOC ---
Arrival/HPI - General Chief Complaint: Chest Pain Time Seen by Provider: 10/31/18 04:11 Historian: Patient, EMS - History of Present Illness Narrative History of Present Illness (Text): 10/31/18 04:21 Piyush Craig is a 43 year old male smoker, Piyush Craig is a 43 year old male, whose past medical history includes hypertension, colitis, alcohol abuse, anxiety, alcohol/substance abuse, and depression, who presents to the emergency department brought in by EMS for chest pain. Patient reports he has been experiencing chest/epigastric pain with associated nausea and vomiting. Patient denies any recent alcohol consumption. Patient denies any fever, chills, shortness of breath, diarrhea, urinary symptoms, back pain, neck pain, headache, dizziness, or any other complaints. Symptom Onset: Gradual Symptom Course: Unchanged Activities at Onset: Light Context: Home Past Medical History - Provider Review Nursing Documentation Reviewed: Yes - Past History Past History: No Previous - Infectious Disease Hx of Infectious Diseases: None - Tetanus Immunization Tetanus Immunization: Unknown - Past Medical History Past Medical History: No Previous - Cardiac Hx Cardiac Disorders: Yes Hx Hypertension: Yes - Pulmonary Hx Respiratory Disorders: Yes (SMOKES 5 CIG A DAY) Other/Comment: light smoker - Neurological Hx Neurological Disorder: Yes Hx Dizziness: Yes Other/Comment: neuropathy - HEENT Hx HEENT Disorder: No - Renal Hx Renal Disorder: No - Endocrine/Metabolic Hx Endocrine Disorders: No - Hematological/Oncological Hx Blood Disorders: No - Integumentary Hx Dermatological Disorder: No - Musculoskeletal/Rheumatological Hx Musculoskeletal Disorders: No Hx Falls: Yes - Gastrointestinal Hx Gastrointestinal Disorders: Yes Hx Gastroesophageal Reflux: Yes Other/Comment: Colitis,GASTRITIS - Genitourinary/Gynecological Hx Genitourinary Disorders: No - Psychiatric Hx Psychophysiologic Disorder: Yes Hx Anxiety: Yes Hx Depression: Yes Hx Substance Use: Yes Other/Comment: substance and alcohol abuse - Past Surgical History Past Surgical History: Non-Contributing - Surgical History Hx Musculoskeletal Surgery: Yes (R foot sx with rods/screws placed) Hx Orthopedic Surgery: Yes - Anesthesia Hx Anesthesia: Yes Hx Anesthesia Reactions: No Hx Malignant Hyperthermia: No - Suicidal Assessment Feels Threatened In Home Enviroment: No Family/Social History - Physician Review Nursing Documentation Reviewed: Yes Family/Social History: Unknown Family HX Smoking Status: Current Some Days Smoker Hx Alcohol Use: Yes (DRINKS VODKA DAILY,LAST DRANK YESTERDAY) Hx Substance Use: Yes Substance used: marijuana & cocaine Hx Substance Use Treatment: No Allergies/Home Meds Allergies/Adverse Reactions: Allergies No Known Allergies Allergy (Verified 10/31/18 12:12) Home Medications: Home Meds Medication Instructions Recorded Confirmed PARoxetine [Paxil] 10 mg PO DAILY 05/09/18 10/31/18 Review of Systems - Physician Review All systems were reviewed & negative as marked: Yes - Review of Systems Constitutional: Normal. absent: Fevers Eyes: Normal ENT: Normal Cardiovascular: Chest Pain Gastrointestinal: Abdominal Pain, Nausea, Vomiting. absent: Diarrhea Genitourinary Male: Normal. absent: Dysuria, Frequency, Hematuria, Urinary Output Changes Musculoskeletal: Normal. absent: Back Pain, Neck Pain Skin: Normal. absent: Rash Neurological: Normal. absent: Headache, Dizziness Endocrine: Normal Hemo/Lymphatic: Normal Psychiatric: Normal Physical Exam Vital Signs Reviewed: Yes Vital Signs Temp Pulse Resp BP Pulse Ox 10/31/18 04:12 97.8 F 79 18 154/103 H 98 Temperature: Afebrile Blood Pressure: Normal Pulse: Regular Respiratory Rate: Normal Appearance: Positive for: Well-Appearing, Non-Toxic, Comfortable Pain Distress: None Mental Status: Positive for: Alert and Oriented X 3 - Systems Exam Head: Present: Atraumatic, Normocephalic Pupils: Present: PERRL Extroacular Muscles: Present: EOMI Conjunctiva: Present: Normal Mouth: Present: Moist Mucous Membranes Neck: Present: Normal Range of Motion Respiratory/Chest: Present: Clear to Auscultation, Good Air Exchange. No: Respiratory Distress, Accessory Muscle Use Cardiovascular: Present: Regular Rate and Rhythm, Normal S1, S2. No: Murmurs Abdomen: No: Tenderness, Distention, Peritoneal Signs Back: Present: Normal Inspection Upper Extremity: Present: Normal Inspection. No: Cyanosis, Edema Lower Extremity: Present: Normal Inspection. No: Edema Neurological: Present: GCS=15, CN II-XII Intact, Speech Normal Skin: Present: Warm, Dry, Normal Color. No: Rashes Psychiatric: Present: Alert, Oriented x 3, Normal Insight, Normal Concentration Medical Decision Making ED Course and Treatment: 10/31/18 04:21 Impression: 43 year old male complaining of epigastric/chest pain, nausea, and vomiting. Plan: -- EKG -- CXR -- Labs, lipase, cardiac enzymes -- IV fluids -- Pepcid -- Zofran -- Reassess and disposition Prior Visits: Notes and results from previous visits were reviewed. Progress Notes: Reviewed EKG, NSR at [address]H. Non-specific ST/T wave changes. 10/31/18 05:03 CXR reviewed, shows no acute processes. 10/31/18 05:[address] Palacios, who is aware and agrees with plan. Accepts pt in to hospitalist service. Pt will go to remote telemetry for chest pain. vice president business & corporate development notified. - Lab Interpretations I have reviewed the lab results: Yes - RAD Interpretation Radiology Orders: 10/31/18 04:15 CHEST PORTABLE [RAD] Stat Criminology Teacher: ED Physician - EKG Interpretation Interpreted by ED Physician: Yes Type: 12 lead EKG - Scribe Statement The provider has reviewed the documentation as recorded by the Scribe Maiar Pastor Provider Scribe Attestation: All medical record entries made by the Scribe were at my direction and personally dictated by me. I have reviewed the chart and agree that the record accurately reflects my personal performance of the history, physical exam, medical decision making, and the department course for this patient. I have also personally directed, reviewed, and agree with the discharge instructions and disposition. Disposition/Present on Arrival - Present on Arrival Any Indicators Present on Arrival: No History of DVT/PE: No History of Uncontrolled Diabetes: No Urinary Catheter: No History of Decub. Ulcer: No History Surgical Site Infection Following: None - Disposition Have Diagnosis and Disposition been Completed?: Yes Diagnosis: Chest pain Disposition: HOSPITALIZED Disposition Time: 05:11 Condition: GOOD
[2018-10-31] MEDS ORDERED: Sodium Chloride 0.9% 1,000 ML IV STA (04:28)
[2018-10-31 04:41] LABS: HEMOGLOBIN 11.3 g/dL (14.0-18.0); MEAN CORPUSCULAR HEMOGLOBIN 29.8 pg (25.0-35.0); MEAN CORPUSCULAR HGB CONC 32.8 g/dl (31.0-37.0); MEAN PLATELET VOLUME 9.8 fl (7.0-11.0); RBC 3.79 10^6/uL (3.5-6.1); RED CELL DISTRIBUTION WIDTH 15.9 % (11.5-14.5)
[2018-10-31 04:45] LABS: MEAN CELL VOLUME 90.8 fl (80.0-105.0)
[2018-10-31 04:47] LABS: INR 0.88; PARTIAL THROMBOPLASTIN TIME 26.9 Seconds (25.1-36.5); PROTHROMBIN TIME 10.1 SECONDS (9.4-12.5)
[2018-10-31 04:57] LABS: LIPASE 178 U/L (23-300); TROPONIN I < 0.01 ng/mL
[2018-10-31 05:01] LABS: ALB/GLOB RATIO 1.6 (1.1-1.8); ALBUMIN 4.8 g/dL (3.0-4.8); ALT/SGPT 60 U/L (7-56); AST/SGOT 92 U/L (17-59); BLOOD UREA NITROGEN 13 mg/dL (7-21); CALCIUM 9.7 mg/dL (8.4-10.5); GFR NON-AFRICAN AMERICAN > 60
[2018-10-31] MEDS ORDERED: Morphine 2 mg/ml ISec IVP STA (05:08)
[2018-10-31] MEDS ORDERED: Nitroglycerin 2% Ointment Foilpak UD TOP STA (05:27)
[2018-10-31] MEDS ORDERED: Multivitamin (MVI) 10 ML, Thiamine 100 MG, Folic Acid 1 MG in Sodium Chloride 0.9% 1,00... IV ONE (05:34)
[2018-10-31 06:05] LABS: CK-MB 2.4 ng/mL (0.0-3.6)
--- NOTE | 2018-10-31 06:30 | CP.PCM.HP ---
<PascualRadha - Last Filed: 10/31/18 07:00> History of Present Illness - History of Present Illness History of Present Illness: Radha Garner, PGY-1, Internal Medicine History and Physical for Dr. Palacios 43 year old male well known to [facility] with past medical history of hypertension, colitis, alcohol abuse, tobacco abuse, cocaine abuse, marijuana abuse, depression, and anxiety presents with waking up at 3:00 AM on 10/31/18 with pressure like chest pain and shortness of breath. Patient reports pain woke him out of bed, has no exacerbating or remitting factors, and has pain radiating to the spine and abdomen. Patient last used cocaine a few days ago. He reports wheezing as well. Patient reports productive cough with white sputum and numbness of feet, nausea, vomiting, but denies left arm pain, jaw pain, diaphoresis, fever, constipation, diarrhea, dysuria, and hematuria. Patient reports not remembering what he ate last night and has not had any significant travel history. 12-point ROS was unremarkable except for what was mentioned above. PMH: as mentioned above PSH: Right ankle surgery FMHx: noncontributary SHx: 10/31 PPD for 31 years, 1 pint of vodka daily, cocaine use once a month but last used a few days ago, marijuana use monthly Allergies: NKDA PMD: Dr. Heard Pharmacy: [facility] Rx: paxil, amlodipine Present on Admission - Present on Admission Any Indicators Present on Admission: No Review of Systems - Constitutional Constitutional: absent: Anorexia, Chills, Fever, Headache - EENT Eyes: absent: Blurred Vision Ears: absent: Decreased Hearing - Cardiovascular Cardiovascular: Chest Pain, Dyspnea. absent: Diaphoresis, Pain Radiating to Arm/Neck/Jaw, Leg Edema, Palpitations - Respiratory Respiratory: Cough (white sputum), Dyspnea, Wheezing. absent: Snoring - Gastrointestinal Gastrointestinal: Abdominal Pain, Nausea, Vomiting. absent: Constipation, Diarrhea - Genitourinary Genitourinary: absent: Dysuria, Hematuria - Musculoskeletal Musculoskeletal: Back Pain. absent: Arthralgias - Neurological Neurological: absent: Confusion, Headaches, Tingling, Vertigo Past Patient History - Infectious Disease Hx of Infectious Diseases: None - Tetanus Immunizations Tetanus Immunization: Unknown - Past Medical History & Family History Past Medical History?: Yes - Past Social History Smoking Status: Current Some Days Smoker - CARDIAC Hx Cardiac Disorders: Yes Hx Hypertension: Yes - PULMONARY Hx Respiratory Disorders: Yes (SMOKES 5 CIG A DAY) Other/Comment: light smoker - NEUROLOGICAL Hx Neurological Disorder: Yes Hx Dizziness: Yes Other/Comment: neuropathy - HEENT Hx HEENT Problems: No - RENAL Hx Chronic Kidney Disease: No - ENDOCRINE/METABOLIC Hx Endocrine Disorders: No - HEMATOLOGICAL/ONCOLOGICAL Hx Blood Disorders: No - INTEGUMENTARY Hx Dermatological Problems: No - MUSCULOSKELETAL/RHEUMATOLOGICAL Hx Musculoskeletal Disorders: No Hx Falls: Yes - GASTROINTESTINAL Hx Gastrointestinal Disorders: Yes Hx Gastroesophageal Reflux: Yes Other/Comment: Colitis,GASTRITIS - GENITOURINARY/GYNECOLOGICAL Hx Genitourinary Disorders: No - PSYCHIATRIC Hx Psychophysiologic Disorder: Yes Hx Anxiety: Yes Hx Depression: Yes Hx Substance Use: Yes Other/Comment: substance and alcohol abuse - SURGICAL HISTORY Hx Musculoskeletal Surgery: Yes (R foot sx with rods/screws placed) Hx Orthopedic Surgery: Yes - ANESTHESIA Hx Anesthesia: Yes Hx Anesthesia Reactions: No Hx Malignant Hyperthermia: No Meds Allergies/Adverse Reactions: Allergies Allergy/AdvReac Type Severity Reaction Status Date / Time No Known Allergies Allergy Verified 10/31/18 12:12 Physical Exam - Constitutional Appears: Well, Non-toxic, No Acute Distress - Head Exam Head Exam: ATRAUMATIC, NORMAL INSPECTION, NORMOCEPHALIC - Eye Exam Eye Exam: EOMI Pupil Exam: PERRL - Respiratory Exam Respiratory Exam: Clear to Auscultation Bilateral, NORMAL BREATHING PATTERN - Cardiovascular Exam Cardiovascular Exam: REGULAR RHYTHM, RRR - GI/Abdominal Exam GI & Abdominal Exam: Normal Bowel Sounds, Soft, Tenderness (llq) - Extremities Exam Extremities exam: Positive for: full ROM - Neurological Exam Neurological exam: Alert, CN II-XII Intact, Oriented x3 - Skin Skin Exam: Dry, Intact, Normal Color Results - Vital Signs Recent Vital Signs: Last Vital Signs Temp 97.8 F 10/31/18 04:12 Pulse 79 10/31/18 04:12 Resp 18 10/31/18 04:12 BP 154/103 H 10/31/18 04:12 Pulse Ox 98 10/31/18 04:12 - Labs Result Diagrams: 10/31/18 04:20 10/31/18 04:20 Labs: Laboratory Results - last 24 hr 10/31/18 10/31/18 10/31/18 04:14 04:20 04:20 WBC 3.0 L RBC 3.79 Hgb 11.3 L Hct 34.4 L MCV 90.8 D MCH 29.8 MCHC 32.8 RDW 15.9 H Plt Count 171 MPV 9.8 PT INR APTT Sodium 139 Potassium 3.9 Chloride 103 Carbon Dioxide 23 Anion Gap 17 BUN 13 Creatinine 0.7 L Est GFR ( Amer) > 60 Est GFR (Non-Af Amer) > 60 Random Glucose 110 Calcium 9.7 Total Bilirubin 0.4 AST 92 H ALT 60 H Alkaline Phosphatase 57 Lactate Dehydrogenase 576 Total Creatine Kinase 436 H CK-MB (CK-2) 2.4 CK-MB (CK-2) % Cancelled Troponin I < 0.01 Total Protein 7.8 Albumin 4.8 Globulin 3.0 Albumin/Globulin Ratio 1.6 Lipase 178 Alcohol, Quantitative 68 H 10/31/18 04:20 WBC RBC Hgb Hct MCV MCH MCHC RDW Plt Count MPV PT 10.1 INR 0.88 APTT 26.9 Sodium Potassium Chloride Carbon Dioxide Anion Gap BUN Creatinine Est GFR ( Amer) Est GFR (Non-Af Amer) Random Glucose Calcium Total Bilirubin AST ALT Alkaline Phosphatase Lactate Dehydrogenase Total Creatine Kinase CK-MB (CK-2) CK-MB (CK-2) % Troponin I Total Protein Albumin Globulin Albumin/Globulin Ratio Lipase Alcohol, Quantitative Assessment & Plan - Assessment and Plan (Free Text) Assessment: 43 year old male well known to [facility] with past medical history of hypertension, colitis, alcohol abuse, tobacco abuse, cocaine abuse, marijuana abuse, depression, and anxiety presents with waking up at 3:00 on 10/31/18 with pressure like chest pain and shortness of breath. Plan: Chest pain 2/2 to ACS vs. Costochondritis vs. Cocaine induced chest pain -EKG: NSR at HR: 76 bpm -Chest X ray: shows no acute abnormalities as read by me -Troponinx1: <0.01 -Aspirin 325 in the ED -Aspirin 81 mg daily -Hold beta blockers as patient has history of cocaine use -Tylenol and ibuprofen as needed for pain -Repeat EKG at 7:00 AM and follow up 2 more troponin Q6 -Dr. Turner, Cardiology, consulted for recommendations. History of alcohol abuse -Serum alcohol: 68. -Patient has mildly elevated AST/ALT. Continue to monitor. If AST/ALT increases, avoid librium/valium. -[facility] protocol initiated -Banana bag. -Start multivitamin, thiamine, folic acid tomorrow morning. -Zofran PRN for nausea/vomiting -Ativan 1 mg Q6PRN -Alcohol cessation counseling given. Isolated Elevated Creatine Kinase -BUN/Cr within normal limits at this time -Patient receiving banana bag with NS as fluids at this time. Hypercholesterolemia -Chol: 211. Unremarkable triglycerides. Pending LDL, HDL -Atorvastatin 10 mg daily -Consider another medication if patient's LFTs trend up. Hypertension -Blood pressure: 164/103 -Amlodipine 10 mg daily -Do not give beta blockers as patient has history of cocaine abuse History of tobacco abuse -Nicotine patch -Smoking cessation counseling given. History of polysubstance abuse -Monitor for withdrawal symptoms -UDS ordered -Substance abuse cessation counseling given. History of depression and anxiety -Continue home paxil GI prophylaxis: protonix 40 mg daily DVT prophylaxis: lovenox 40 mg daily Patient seen and examined with Dr. Palacios. - Date & Time Date: 10/31/18 Time: 06:39 <Gabriele Palacios - Last Filed: 10/31/18 22:38> Results - Vital Signs Recent Vital Signs: Last Vital Signs Temp 98.2 F 10/31/18 20:08 Pulse 72 10/31/18 20:08 Resp 20 10/31/18 20:08 BP 130/93 H 10/31/18 20:08 Pulse Ox 96 10/31/18 20:08 - Labs Result Diagrams: 10/31/18 04:20 10/31/18 04:20 Labs: Laboratory Results - last 24 hr 10/31/18 10/31/18 10/31/18 04:14 04:14 04:14 WBC RBC Hgb Hct MCV MCH MCHC RDW Plt Count MPV PT INR APTT Sodium Potassium Chloride Carbon Dioxide Anion Gap BUN Creatinine Est GFR ( Amer) Est GFR (Non-Af Amer) Random Glucose Calcium Total Bilirubin AST ALT Alkaline Phosphatase Lactate Dehydrogenase Total Creatine Kinase CK-MB (CK-2) CK-MB (CK-2) % Troponin I Total Protein Albumin Globulin Albumin/Globulin Ratio Triglycerides 142 Cholesterol 211 H LDL Cholesterol Direct 84 HDL Cholesterol 112 H Lipase Free T4 1.23 TSH 3rd Generation 0.80 Urine Opiates Screen Urine Methadone Screen Ur Barbiturates Screen Ur Phencyclidine Scrn Ur Amphetamines Screen U Benzodiazepines Scrn U Oth Cocaine Metabols U Cannabinoids Screen Alcohol, Quantitative 68 H 10/31/18 10/31/18 10/31/18 04:20 04:20 04:20 WBC 3.0 L RBC 3.79 Hgb 11.3 L Hct 34.4 L MCV 90.8 D MCH 29.8 MCHC 32.8 RDW 15.9 H Plt Count 171 MPV 9.8 PT 10.1 INR 0.88 APTT 26.9 Sodium 139 Potassium 3.9 Chloride 103 Carbon Dioxide 23 Anion Gap 17 BUN 13 Creatinine 0.7 L Est GFR ( Amer) > 60 Est GFR (Non-Af Amer) > 60 Random Glucose 110 Calcium 9.7 Total Bilirubin 0.4 AST 92 H ALT 60 H Alkaline Phosphatase 57 Lactate Dehydrogenase 576 Total Creatine Kinase 436 H CK-MB (CK-2) 2.4 CK-MB (CK-2) % Cancelled Troponin I < 0.01 Total Protein 7.8 Albumin 4.8 Globulin 3.0 Albumin/Globulin Ratio 1.6 Triglycerides Cholesterol LDL Cholesterol Direct HDL Cholesterol Lipase 178 Free T4 TSH 3rd Generation Urine Opiates Screen Urine Methadone Screen Ur Barbiturates Screen Ur Phencyclidine Scrn Ur Amphetamines Screen U Benzodiazepines Scrn U Oth Cocaine Metabols U Cannabinoids Screen Alcohol, Quantitative 10/31/18 10/31/18 10/31/18 05:20 10:52 16:30 WBC RBC Hgb Hct MCV MCH MCHC RDW Plt Count MPV PT INR APTT Sodium Potassium Chloride Carbon Dioxide Anion Gap BUN Creatinine Est GFR ( Amer) Est GFR (Non-Af Amer) Random Glucose Calcium Total Bilirubin AST ALT Alkaline Phosphatase Lactate Dehydrogenase Total Creatine Kinase CK-MB (CK-2) CK-MB (CK-2) % Troponin I < 0.01 < 0.01 Total Protein Albumin Globulin Albumin/Globulin Ratio Triglycerides Cholesterol LDL Cholesterol Direct HDL Cholesterol Lipase Free T4 TSH 3rd Generation Urine Opiates Screen Negative Urine Methadone Screen Negative Ur Barbiturates Screen Negative Ur Phencyclidine Scrn Negative Ur Amphetamines Screen Negative U Benzodiazepines Scrn Negative U Oth Cocaine Metabols Positive H U Cannabinoids Screen Negative Alcohol, Quantitative Attending/Attestation - Attestation I have personally seen and examined this patient.: Yes I have fully participated in the care of the patient.: Yes I have reviewed all pertinent clinical information: Yes Notes (Text): 10/31/18 22:37 Patient was seen when he was in the ER. Agree with history,physical examination, assessment and plan.
[2018-10-31 06:56] LABS: LDL CHOLESTEROL 84 mg/dL (0-129)
[2018-10-31 07:11] LABS: FREE T4 1.23 ng/dL (0.78-2.19)
[2018-10-31 07:16] LABS: HDL CHOLESTEROL 112 mg/dL (29-60)
[2018-10-31 07:16] LABS: BARBITURATES, UR NEGATIVE (NEGATIVE); BENZODIAZEPINES, UR NEGATIVE (NEGATIVE); OPIATES, UR NEGATIVE (NEGATIVE); PHENCYCLIDINE, UR NEGATIVE (NEGATIVE)
[2018-10-31] MEDS ORDERED: Multivitamin Therapeutic Tab PO SCH (08:00)
--- NOTE | 2018-10-31 08:48 | RAD ---
HISTORY: chest pain COMPARISON: Chest x-ray performed 08/30/18 TECHNIQUE: Chest, one view. FINDINGS: The patient is rotated. LUNGS: No focal consolidation. Please note that chest x-ray has limited sensitivity for the detection of pulmonary masses. PLEURA: No significant pleural effusion identified. No definite pneumothorax . CARDIOVASCULAR: Heart size appears within normal limits. No significant atherosclerotic calcification present. OSSEOUS STRUCTURES: No acute osseous abnormality identified. VISUALIZED UPPER ABDOMEN: Unremarkable. OTHER FINDINGS: None. IMPRESSION: No focal consolidation.
--- NOTE | 2018-10-31 09:52 | CARD ---
APPROVED REPORT Date of service: 10/31/2018 EKG Measurement Heart [id number] <Conclusion> Normal sinus rhythm Moderate voltage criteria for LVH, may be normal variant Borderline ECG
[2018-10-31] MEDS ORDERED: Enoxaparin 40 mg Syringe SC SCH (10:00)
--- NOTE | 2018-10-31 11:23 | CARD ---
APPROVED REPORT Date of service: 10/31/2018 EKG Measurement Heart [id number] <Conclusion> Normal sinus rhythm Possible Left atrial enlargement Left ventricular hypertrophy-Voltage.
[2018-10-31] MEDS ORDERED: Influenza Vaccine 60 mcg/0.5 mL SYR (4YR UP) IM ONE (13:40)
[2018-10-31] MEDS ORDERED: Pneumococcal 23-Valent Vaccine IM ONE (13:40)
--- NOTE | 2018-10-31 17:26 | CON ---
DATE: 10/31/2018 REQUESTING PHYSICIAN: Dr. Méndez. REASON FOR CONSULTATION: Chest pain. HISTORY OF PRESENT ILLNESS: This is a 43-year-old man, well known to us from multiple admissions in the past, who presents to the emergency room with complaints of dyspnea and chest pain. He has had many admissions over the past several years for similar complaints. He has a longstanding history of alcohol and tobacco abuse as well as cocaine abuse and marijuana ingestion. He does have a history of hypertension as well. He states he had retrosternal chest discomfort and dyspnea, which awoke him from sleep. He has been drinking heavily lately and continues to smoke. He last used cocaine several days ago. His initial electrocardiogram showed no acute changes. PAST MEDICAL HISTORY: His past history is notable for the problems mentioned above. He has undergone prior ankle surgery. He also has a history of colitis and gastritis. MEDICATIONS: His medications at home included Paxil, folic acid, Norvasc, and vitamin supplements. ALLERGIES: NONE. SOCIAL HISTORY: As mentioned, he does drink heavily. Cocaine use is once or twice per month. FAMILY HISTORY: There is family history of congestive cardiomyopathy. REVIEW OF SYSTEMS: Ten-point review systems is notable mainly for the problems mentioned above. PHYSICAL EXAMINATION: GENERAL: He is a thin, middle-aged man. VITAL SIGNS: His blood pressure is 164/100 with a pulse of 90 and sinus, respirations are 16. He is afebrile. HEENT: Normocephalic, atraumatic. NECK: Supple. No JVD noted. CHEST: Bilateral scattered rhonchi heard. HEART: PMI in normal position. No pathological rubs or gallops noted. ABDOMEN: Soft with epigastric and left upper quadrant tenderness. Bowel sounds are present. EXTREMITIES: No clubbing, cyanosis, or edema. SKIN: Warm and dry. PSYCHIATRIC: Normal mood and affect. NEUROLOGIC: No gross motor or sensory deficits appreciable. DIAGNOSTIC DATA: Two sets of cardiac enzymes are negative. Potassium 3.9. BUN and creatinine are 13 and 0.7. White count 3.0, hemoglobin and hematocrit are 11.3 and 34.4 with a platelet count of 171,000. AST and ALT are 92 and 60. CK 436. Electrocardiogram reveals sinus rhythm with nonspecific abnormalities. Chest x-ray reveals normal cardiac silhouette with clear lung murguia. IMPRESSION: 1. Chest pain and dyspnea, suspect symptoms are more likely be due to gastritis and esophagitis secondary to alcohol abuse. No clear evidence of cardiac ischemia at the present time. His last stress test was approximately 4 to 5 years ago. 2. Rest of problems as noted. RECOMMENDATIONS: Observation admission is reasonable. Repeat enzymes will be planned. A stress test can be repeated in the near future and can be done as an outpatient. Obviously, substance and tobacco abstinence is strongly encouraged. The severe risk to his health in the future with respect to substance abuse was discussed at length with him as well. Thank you for this consultation. I would be happy to see as needed. Sonny Armendariz MD
[2018-10-31 18:09] VITALS: RESP 20
[2018-10-31 20:09] VITALS: O2SAT 96
[2018-11-01] MEDS ORDERED: Pantoprazole 40 mg EC Tab PO SCH (06:00)
[2018-11-01 07:09] LABS: ALB/GLOB RATIO 1.5 (1.1-1.8); ALBUMIN 4.8 g/dL (3.0-4.8); ALT/SGPT 61 U/L (7-56); AST/SGOT 111 U/L (17-59); BLOOD UREA NITROGEN 10 mg/dL (7-21); CALCIUM 9.8 mg/dL (8.4-10.5); GFR NON-AFRICAN AMERICAN > 60
[2018-11-01 07:18] LABS: HEMOGLOBIN 12.3 g/dL (14.0-18.0); MEAN CORPUSCULAR HEMOGLOBIN 29.4 pg (25.0-35.0); MEAN CORPUSCULAR HGB CONC 32.6 g/dl (31.0-37.0); MEAN PLATELET VOLUME 10.5 fl (7.0-11.0); RBC 4.19 10^6/uL (3.5-6.1); RED CELL DISTRIBUTION WIDTH 14.9 % (11.5-14.5); WHITE BLOOD COUNT 3.2 10^3/uL (4.5-11.0)
[2018-11-01] MEDS ORDERED: Multivitamin Therapeutic Tab PO SCH (08:00)
[2018-11-01 08:09] VITALS: BP 123/88; PULSE 86; TEMP 98
[2018-11-01] MEDS ORDERED: Potassium Chloride 20 mEq ER Tab PO STA (08:09)
--- NOTE | 2018-11-01 11:20 | CP.PCM.DIS ---
Provider - Provider Date of Admission: 10/31/18 05:11 Attending physician: Rosa Méndez DO Consults: 10/31/18 06:39 Consult [Physician Consult] Routine Comment: Consulting Provider: Jeremias Turner Consulting Physician: Jeremias Turner Reason for Consult: chest pain 10/31/18 13:40 Inpatient [employer] Core Measures Referral Routine Comment: Physician Instructions: Reason For Exam: EVALUATION Transition In Care/Readmission Reduction Routine Comment: Physician Instructions: Reason For Exam: EVALUATION Time Spent in preparation of Discharge (in minutes): 45 Diagnosis - Discharge Diagnosis (1) Chest pain Status: Resolved (2) Alcohol intoxication Status: Resolved (3) Cocaine abuse Status: Resolved (4) Hypokalemia Status: Acute (5) Alcohol abuse Status: Chronic Priority: Medium (6) Tobacco abuse Status: Chronic Hospital Course - Lab Results Lab Results: Most Recent Lab Values WBC 3.2 10^3/uL (4.5-11.0) L 11/01/18 06:00 RBC 4.19 10^6/uL (3.5-6.1) 11/01/18 06:00 Hgb 12.3 g/dL (14.0-18.0) L 11/01/18 06:00 Hct 37.7 % (42.0-52.0) L 11/01/18 06:00 MCV 90.0 fl (80.0-105.0) 11/01/18 06:00 MCH 29.4 pg (25.0-35.0) 11/01/18 06:00 MCHC 32.6 g/dl (31.0-37.0) 11/01/18 06:00 RDW 14.9 % (11.5-14.5) H 11/01/18 06:00 Plt Count 181 10^3/uL (120.0-450.0) 11/01/18 06:00 MPV 10.5 fl (7.0-11.0) 11/01/18 06:00 PT 10.1 SECONDS (9.4-12.5) 10/31/18 04:20 INR 0.88 10/31/18 04:20 APTT 26.9 Seconds (25.1-36.5) 10/31/18 04:20 Sodium 135 mmol/L (132-148) 11/01/18 06:00 Potassium 3.1 mmol/L (3.6-5.0) L 11/01/18 06:00 Chloride 96 mmol/L (98-107) L 11/01/18 06:00 Carbon Dioxide 27 mmol/L (21-33) 11/01/18 06:00 Anion Gap 15 (10-20) 11/01/18 06:00 BUN 10 mg/dL (7-21) 11/01/18 06:00 Creatinine 0.8 mg/dl (0.8-1.5) 11/01/18 06:00 Est GFR ( Amer) > 60 11/01/18 06:00 Est GFR (Non-Af Amer) > 60 11/01/18 06:00 Random Glucose 99 mg/dL (70-110) 11/01/18 06:00 Calcium 9.8 mg/dL (8.4-10.5) 11/01/18 06:00 Total Bilirubin 1.0 mg/dL (0.2-1.3) 11/01/18 06:00 AST 111 U/L (17-59) H D 11/01/18 06:00 ALT 61 U/L (7-56) H 11/01/18 06:00 Alkaline Phosphatase 54 U/L (38-126) 11/01/18 06:00 Lactate Dehydrogenase 576 U/L (333-699) 10/31/18 04:20 Total Creatine Kinase 436 U/L (35-230) H 10/31/18 04:20 CK-MB (CK-2) 2.4 ng/mL (0.0-3.6) 10/31/18 04:20 CK-MB (CK-2) % Cancelled 10/31/18 04:20 Troponin I < 0.01 ng/mL 10/31/18 16:30 Total Protein 8.1 g/dL (5.8-8.3) 11/01/18 06:00 Albumin 4.8 g/dL (3.0-4.8) 11/01/18 06:00 Globulin 3.3 gm/dL 11/01/18 06:00 Albumin/Globulin Ratio 1.5 (1.1-1.8) 11/01/18 06:00 Triglycerides 142 mg/dL (35-160) 10/31/18 04:14 Cholesterol 211 mg/dL (130-200) H 10/31/18 04:14 LDL Cholesterol Direct 84 mg/dL (0-129) 10/31/18 04:14 HDL Cholesterol 112 mg/dL (29-60) H 10/31/18 04:14 Lipase 178 U/L (23-300) 10/31/18 04:20 Free T4 1.23 ng/dL (0.78-2.19) 10/31/18 04:14 TSH 3rd Generation 0.80 mIU/mL (0.46-4.68) 10/31/18 04:14 Urine Opiates Screen Negative (NEGATIVE) 10/31/18 05:20 Urine Methadone Screen Negative (NEGATIVE) 10/31/18 05:20 Ur Barbiturates Screen Negative (NEGATIVE) 10/31/18 05:20 Ur Phencyclidine Scrn Negative (NEGATIVE) 10/31/18 05:20 Ur Amphetamines Screen Negative (NEGATIVE) 10/31/18 05:20 U Benzodiazepines Scrn Negative (NEGATIVE) 10/31/18 05:20 U Oth Cocaine Metabols Positive (NEGATIVE) H 10/31/18 05:20 U Cannabinoids Screen Negative (NEGATIVE) 10/31/18 05:20 Alcohol, Quantitative 68 mg/dL (0-10) H 10/31/18 04:14 - Hospital Course Hospital Course: 43 year old male with past medical history of hypertension, colitis, alcohol abuse, tobacco abuse, cocaine abuse, marijuana abuse, depression, and anxiety present initially chest pain and shortness of breath. Patient stated he used cocaine within the past several days and admitted to a productive cough. Patient was admitted for chest pain r/o ACS. Troponins were negative x3. EKG demonstrated NSR with no ST abnormalities. Patient had a mildly elevated alcohol level, but CIWA remained 0 throughout stay. Patient was seen by cardiology, Dr. Armendariz, who recommends conservative management and outpatient stress test. Patient was given medication refills at bedside. Patient was counseled on cocaine and alcohol cessation. Patient will return to PMD, Dr. Heard, within 3- 5 days. Discharge Exam - Head Exam Head Exam: ATRAUMATIC, NORMAL INSPECTION, NORMOCEPHALIC - ENT Exam ENT Exam: Mucous Membranes Moist - Respiratory Exam Respiratory Exam: NORMAL BREATHING PATTERN, UNREMARKABLE - Cardiovascular Exam Cardiovascular Exam: RRR, +S1, +S2 - GI/Abdominal Exam GI & Abdominal Exam: Normal Bowel Sounds, Soft. absent: Tenderness - Extremities Exam Extremities exam: normal inspection - Neurological Exam Neurological exam: Alert, CN II-XII Intact, Oriented x3 - Psychiatric Exam Psychiatric exam: Normal Affect, Normal Mood - Skin Skin Exam: Intact, Normal Color, Warm Discharge Plan - Discharge Medications Prescriptions: amLODIPine [Norvasc] 10 mg PO DAILY #14 tab Aspirin [Aspirin Chewable] 81 mg PO DAILY #14 chew Atorvastatin [Lipitor] 10 mg PO DIN #14 tab Folic Acid 1 mg PO DAILY #14 tab Multivitamin Therapeutic Tab [Thera Tab] 1 tab PO 0800 #14 tab PARoxetine [Paxil] 10 mg PO DAILY #14 tab Thiamine [Vitamin B1 Tab] 100 mg PO DAILY #14 tab - Follow Up Plan Condition: GOOD Disposition: HOME/ ROUTINE Instructions: Alcohol Use - When Is Drinking a Problem?, Angina (DC), Chest Pain (DC), Chest Pain (GEN) Additional Instructions: Please take medications as prescribed Follow up with your Primary care doctor within 3-5 days week Please follow up with your g[facility] mobile, Dr. Armendariz, within 1 week to schedule an outpatient stress test Please refrain from using any illegal substances and abstain from alcohol If symptoms return, please return to nearest emergency room Referrals: Sonny Armendariz MD [Staff Provider] -
== END 2018-11-01 11:49 | disposition home or self-care (01) ==
LOC: ED 04:10 → ERH 05:11 → 2RNO 13:02 → 3RNO 19:15
PROVIDERS: ADMIT Hospitalist; ATTEND Hospitalist
DX: R07.9 Chest pain, unspecified (principal); K29.70 Gastritis, unspecified, without bleeding; K21.9 Gastro-esophageal reflux disease without esophagitis; I10 Essential (primary) hypertension; K59.00 Constipation, unspecified; F10.129 Alcohol abuse with intoxication, unspecified; F14.10 Cocaine abuse, uncomplicated; E87.6 Hypokalemia; F17.200 Nicotine dependence, unspecified, uncomplicated
CPT/HCPCS: 36415; 71045; 80053; 80061; 80320; 80324; 80345; 80346; 80349; 80353; 80358; 80361; 82550; 82553; 83615; 83690; 83992; 84439; 84443; 84484; 85027; 85610; 85730; 93005; 96361; 96372; 96374; 96375; 96376; 99283; C9113; G0378; J1650; J2060; J2270; J2405; J3411; J7030

== ENCOUNTER 2018-11-05 21:50 | Observation (INO) | payer MEDICAID ==
[2018-11-05 22:12] VITALS: BMI 21.0
--- NOTE | 2018-11-05 22:14 | ED PDOC ---
Arrival/HPI - General Chief Complaint: Chest Pain Time Seen by Provider: 11/05/18 22:03 Historian: Patient - History of Present Illness Narrative History of Present Illness (Text): 11/05/18 22:12 Piyush Craig is a 43 year old male smoker, Piyush Craig is a 43 year old male, whose past medical history includes hypertension, colitis, alcohol abuse, anxiety, alcohol/substance abuse, and depression, who presents to the emergency department complaining of sharp chest pain tonight. Patient admits to using cocaine yesterday and drinking alcohol tonight. Patient also complaining of a headache. Patient denies any fever, chills, shortness of breath, nausea, vomiting, diarrhea, urinary symptoms, back pain, neck pain, dizziness, or any other complaints. Symptom Onset: Gradual Symptom Course: Unchanged Activities at Onset: Light Context: Home Past Medical History - Provider Review Nursing Documentation Reviewed: Yes - Past History Past History: No Previous - Infectious Disease Hx of Infectious Diseases: None - Tetanus Immunization Tetanus Immunization: Unknown - Past Medical History Past Medical History: No Previous - Cardiac Hx Cardiac Disorders: Yes Hx Hypertension: Yes - Pulmonary Hx Respiratory Disorders: Yes (SMOKES 5 CIG A DAY) Other/Comment: light smoker - Neurological Hx Neurological Disorder: Yes Hx Dizziness: Yes Other/Comment: neuropathy - HEENT Hx HEENT Disorder: No - Renal Hx Renal Disorder: No - Endocrine/Metabolic Hx Endocrine Disorders: No - Hematological/Oncological Hx Blood Disorders: No - Integumentary Hx Dermatological Disorder: No - Musculoskeletal/Rheumatological Hx Musculoskeletal Disorders: No Hx Falls: Yes - Gastrointestinal Hx Gastrointestinal Disorders: Yes Hx Gastroesophageal Reflux: Yes Other/Comment: Colitis,GASTRITIS - Genitourinary/Gynecological Hx Genitourinary Disorders: No - Psychiatric Hx Psychophysiologic Disorder: Yes Hx Anxiety: Yes Hx Depression: Yes Hx Substance Use: Yes Other/Comment: substance and alcohol abuse - Past Surgical History Past Surgical History: Non-Contributing - Surgical History Hx Musculoskeletal Surgery: Yes (R foot sx with rods/screws placed) Hx Orthopedic Surgery: Yes - Anesthesia Hx Anesthesia: Yes Hx Anesthesia Reactions: No Hx Malignant Hyperthermia: No - Suicidal Assessment Feels Threatened In Home Enviroment: No Family/Social History - Physician Review Nursing Documentation Reviewed: Yes Family/Social History: Unknown Family HX Smoking Status: Current Some Days Smoker Hx Alcohol Use: Yes (DRINKS VODKA DAILY,LAST DRANK YESTERDAY) Hx Substance Use: Yes Substance used: marijuana & cocaine Hx Substance Use Treatment: No Allergies/Home Meds Allergies/Adverse Reactions: Allergies No Known Allergies Allergy (Verified 10/31/18 12:12) Review of Systems - Physician Review All systems were reviewed & negative as marked: Yes - Review of Systems Constitutional: Normal. absent: Fevers Eyes: Normal ENT: Normal Respiratory: Normal. absent: SOB, Cough Cardiovascular: Chest Pain Gastrointestinal: Normal. absent: Abdominal Pain, Diarrhea, Nausea, Vomiting Genitourinary Male: Normal. absent: Dysuria, Frequency, Hematuria, Urinary Output Changes Musculoskeletal: Normal. absent: Back Pain, Neck Pain Skin: Normal. absent: Rash Neurological: Headache. absent: Dizziness Endocrine: Normal Hemo/Lymphatic: Normal Psychiatric: Normal Physical Exam Vital Signs Reviewed: Yes Vital Signs Temp Pulse Resp BP Pulse Ox 11/05/18 22:03 98.0 F 75 18 148/98 H 100 Temperature: Afebrile Blood Pressure: Normal Pulse: Regular Respiratory Rate: Normal Appearance: Positive for: Well-Appearing, Non-Toxic, Comfortable Pain Distress: None Mental Status: Positive for: Alert and Oriented X 3 - Systems Exam Head: Present: Atraumatic, Normocephalic Pupils: Present: PERRL Extroacular Muscles: Present: EOMI Conjunctiva: Present: Normal Mouth: Present: Moist Mucous Membranes Neck: Present: Normal Range of Motion Respiratory/Chest: Present: Clear to Auscultation, Good Air Exchange. No: Respiratory Distress, Accessory Muscle Use Cardiovascular: Present: Regular Rate and Rhythm, Normal S1, S2. No: Murmurs Abdomen: No: Tenderness, Distention, Peritoneal Signs Back: Present: Normal Inspection Upper Extremity: Present: Normal Inspection. No: Cyanosis, Edema Lower Extremity: Present: Normal Inspection. No: Edema Neurological: Present: GCS=15, CN II-XII Intact, Speech Normal Skin: Present: Warm, Dry, Normal Color. No: Rashes Psychiatric: Present: Alert, Oriented x 3, Normal Insight, Normal Concentration Medical Decision Making ED Course and Treatment: 11/05/18 22:12 Impression: 43 year old male complaining of sharp chest pain and headache. Plan: -- EKG -- Chest X-ray -- Labs, cardiac enzymes -- Reassess and disposition Prior Visits: Notes and results from previous visits were reviewed. Progress Notes: Reviewed EKG, NSR at [address] LVH. Non-specific ST/T wave changes. 11/05/18 23:30 Chest X-ray reviewed, shows no acute processes. 11/06/18 00:13 Case discussed with medical office technology instructor belt conveyor drier, who is aware and agrees with plan. Case discussed with Dr. Del Rio, who is aware and agrees with plan. Accepts pt in to hospitalist service. Pt will go to remote telemetry observation for chest pain. - Lab Interpretations I have reviewed the lab results: Yes - RAD Interpretation Manager Produce: ED Physician - EKG Interpretation Interpreted by ED Physician: Yes Type: 12 lead EKG - Scribe Statement The provider has reviewed the documentation as recorded by the Ruth Pastor Provider Scribe Attestation: All medical record entries made by the Scribe were at my direction and personally dictated by me. I have reviewed the chart and agree that the record accurately reflects my personal performance of the history, physical exam, medical decision making, and the department course for this patient. I have also personally directed, reviewed, and agree with the discharge instructions and disposition. Disposition/Present on Arrival - Present on Arrival Any Indicators Present on Arrival: No History of DVT/PE: No History of Uncontrolled Diabetes: No Urinary Catheter: No History of Decub. Ulcer: No History Surgical Site Infection Following: None - Disposition Have Diagnosis and Disposition been Completed?: Yes Diagnosis: Chest pain Disposition: HOSPITALIZED Disposition Time: 00:15 Patient Plan: Observation Condition: STABLE
[2018-11-05 23:23] LABS: HEMOGLOBIN 10.8 g/dL (14.0-18.0); MEAN CELL VOLUME 91.2 fl (80.0-105.0); MEAN CORPUSCULAR HEMOGLOBIN 29.6 pg (25.0-35.0); MEAN CORPUSCULAR HGB CONC 32.4 g/dl (31.0-37.0); MEAN PLATELET VOLUME 10.5 fl (7.0-11.0); RBC 3.65 10^6/uL (3.5-6.1); RED CELL DISTRIBUTION WIDTH 15.7 % (11.5-14.5)
[2018-11-05 23:31] LABS: INR 0.91; PARTIAL THROMBOPLASTIN TIME 27.7 Seconds (25.1-36.5); PROTHROMBIN TIME 10.3 SECONDS (9.4-12.5)
[2018-11-05 23:47] LABS: ALB/GLOB RATIO 1.6 (1.1-1.8); ALBUMIN 4.5 g/dL (3.0-4.8); ALT/SGPT 50 U/L (7-56); AST/SGOT 54 U/L (17-59); BLOOD UREA NITROGEN 14 mg/dL (7-21); CALCIUM 9.5 mg/dL (8.4-10.5); GFR NON-AFRICAN AMERICAN > 60
[2018-11-05 23:49] LABS: TROPONIN I < 0.01 ng/mL
[2018-11-05 23:57] LABS: CK-MB 1.5 ng/mL (0.0-3.6)
--- NOTE | 2018-11-06 01:12 | CP.PCM.HP ---
<PascualRadha - Last Filed: 11/06/18 01:05> History of Present Illness - History of Present Illness History of Present Illness: Radha Garner, PGY-1, Internal Medicine History and Physical for Dr. Del Rio 43 year old male well known to [facility] with past medical history of hypertension, colitis, alcohol abuse, tobacco abuse, cocaine abuse, marijuana abuse, depression, and anxiety presents with chest pain, shortness of breath, diaphoresis, fatigue, headache, and dizziness. Pain started at 21:30 on 11/05, and reported that he could not eat. He reports pain was pressure like and had shortness of breath. Pain radiated to his neck. Patient last reported cocaine use yesterday. Patient also complained of sharp headache on the top of his head but denied lacrimation, salivation, change in vision, nasal congestion. There was no radiation of his headache. He also complained of burning of the feet. Patient denied nausea but reported nonbloody diarrhea. Patient denies change in vision, wheezing, nausea, vomiting, constipation, dysuria, hematuria. 12-point ROS was unremarkable except for what was mentioned above. PMH: as mentioned above PSH: Right ankle surgery FMHx: noncontributary SHx: 10/31 PPD for 31 years, 1 pint of vodka daily, cocaine use once a month but last used yesterday, marijuana use monthly Allergies: NKDA PMD: Dr. Heard Pharmacy: [facility] Rx: paxil, amlodipine Present on Admission - Present on Admission Any Indicators Present on Admission: No Review of Systems - Review of Systems Review of Systems: except mentioned in HPI Past Patient History - Infectious Disease Hx of Infectious Diseases: None - Tetanus Immunizations Tetanus Immunization: Unknown - Past Medical History & Family History Past Medical History?: Yes - Past Social History Smoking Status: Current Some Days Smoker - CARDIAC Hx Cardiac Disorders: Yes Hx Hypertension: Yes - PULMONARY Hx Respiratory Disorders: Yes (SMOKES 5 CIG A DAY) Other/Comment: light smoker - NEUROLOGICAL Hx Neurological Disorder: Yes Hx Dizziness: Yes Other/Comment: neuropathy - HEENT Hx HEENT Problems: No - RENAL Hx Chronic Kidney Disease: No - ENDOCRINE/METABOLIC Hx Endocrine Disorders: No - HEMATOLOGICAL/ONCOLOGICAL Hx Blood Disorders: No - INTEGUMENTARY Hx Dermatological Problems: No - MUSCULOSKELETAL/RHEUMATOLOGICAL Hx Musculoskeletal Disorders: No Hx Falls: Yes - GASTROINTESTINAL Hx Gastrointestinal Disorders: Yes Hx Gastroesophageal Reflux: Yes Other/Comment: Colitis,GASTRITIS - GENITOURINARY/GYNECOLOGICAL Hx Genitourinary Disorders: No - PSYCHIATRIC Hx Psychophysiologic Disorder: Yes Hx Anxiety: Yes Hx Depression: Yes Hx Substance Use: Yes Other/Comment: substance and alcohol abuse - SURGICAL HISTORY Hx Musculoskeletal Surgery: Yes (R foot sx with rods/screws placed) Hx Orthopedic Surgery: Yes - ANESTHESIA Hx Anesthesia: Yes Hx Anesthesia Reactions: No Hx Malignant Hyperthermia: No Meds Allergies/Adverse Reactions: Allergies Allergy/AdvReac Type Severity Reaction Status Date / Time No Known Allergies Allergy Verified 10/31/18 12:12 Physical Exam - Constitutional Appears: Well, Non-toxic, No Acute Distress - Head Exam Head Exam: ATRAUMATIC, NORMAL INSPECTION, NORMOCEPHALIC - Eye Exam Eye Exam: EOMI, PERRL - ENT Exam ENT Exam: Mucous Membranes Dry - Respiratory Exam Respiratory Exam: Clear to Auscultation Bilateral, NORMAL BREATHING PATTERN - Cardiovascular Exam Cardiovascular Exam: REGULAR RHYTHM, RRR - GI/Abdominal Exam GI & Abdominal Exam: Normal Bowel Sounds, Soft. absent: Tenderness - Extremities Exam Extremities exam: Positive for: full ROM - Neurological Exam Neurological exam: Alert, CN II-XII Intact, Oriented x3 - Skin Skin Exam: Dry, Intact, Normal Color Results - Vital Signs Recent Vital Signs: Last Vital Signs Temp 98.0 F 11/06/18 00:24 Pulse 71 11/06/18 00:24 Resp 18 11/06/18 00:24 BP 134/85 11/06/18 00:24 Pulse Ox 100 11/06/18 00:24 - Labs Result Diagrams: 11/05/18 23:13 11/05/18 23:13 Labs: Laboratory Results - last 24 hr 11/05/18 11/05/18 11/05/18 23:13 23:13 23:13 WBC 3.0 L RBC 3.65 Hgb 10.8 L Hct 33.3 L MCV 91.2 MCH 29.6 MCHC 32.4 RDW 15.7 H Plt Count 171 MPV 10.5 PT 10.3 INR 0.91 APTT 27.7 Sodium 136 Potassium 3.6 Chloride 100 Carbon Dioxide 27 Anion Gap 12 BUN 14 Creatinine 0.7 L Est GFR ( Amer) > 60 Est GFR (Non-Af Amer) > 60 Random Glucose 101 Calcium 9.5 Total Bilirubin 0.2 AST 54 ALT 50 Alkaline Phosphatase 47 Lactate Dehydrogenase 473 Total Creatine Kinase 344 H CK-MB (CK-2) 1.5 CK-MB (CK-2) % Cancelled Troponin I < 0.01 Total Protein 7.3 Albumin 4.5 Globulin 2.8 Albumin/Globulin Ratio 1.6 Alcohol, Quantitative 11/05/18 23:13 WBC RBC Hgb Hct MCV MCH MCHC RDW Plt Count MPV PT INR APTT Sodium Potassium Chloride Carbon Dioxide Anion Gap BUN Creatinine Est GFR ( Amer) Est GFR (Non-Af Amer) Random Glucose Calcium Total Bilirubin AST ALT Alkaline Phosphatase Lactate Dehydrogenase Total Creatine Kinase CK-MB (CK-2) CK-MB (CK-2) % Troponin I Total Protein Albumin Globulin Albumin/Globulin Ratio Alcohol, Quantitative < 10 Assessment & Plan - Assessment and Plan (Free Text) Assessment: 43 year old male well known to [facility] with past medical history of hypertension, colitis, alcohol abuse, tobacco abuse, cocaine abuse, marijuana abuse, depression, and anxiety presents with chest pain, shortness of breath, diaphoresis, fatigue, headache, and dizziness. Plan: Chest pain 2/2 to ACS vs. Costochondritis vs. Cocaine induced chest pain -EKG: NSR at 78 -Chest X ray: shows no acute abnormalities as read by me -Troponinx1: <0.01. Follow up two more troponins Q6 -Aspirin 325 in the ED -Aspirin 81 mg daily -Hold beta blockers as patient has history of cocaine use -Tylenol and toradol as needed for pain -Dr. Mariano, Cardiology, consulted for recommendations. History of alcohol abuse -Serum alcohol<10 -[facility] protocol initiated -Banana bag. -Start multivitamin, thiamine, folic acid tomorrow morning. -Zofran PRN for nausea/vomiting -Ativan 1 mg Q6PRN -Alcohol cessation counseling given. Isolated Elevated Creatine Kinase -BUN/Cr within normal limits at this time -Patient receiving banana bag with NS as fluids at this time. Hypercholesterolemia -Chol: 211. Unremarkable triglycerides. Pending LDL, HDL -Atorvastatin 10 mg daily -Consider another medication if patient's LFTs trend up. Hypertension -Blood pressure: 134/85 -Amlodipine 10 mg daily -Do not give beta blockers as patient has history of cocaine abuse History of tobacco abuse -Nicotine patch -Smoking cessation counseling given. History of polysubstance abuse -Monitor for withdrawal symptoms -UDS ordered -Substance abuse cessation counseling given. History of depression and anxiety -Continue home paxil GI prophylaxis: protonix 40 mg daily DVT prophylaxis: lovenox 40 mg daily Patient seen and examined with Dr. Del Rio. - Date & Time Date: 11/06/18 Time: 01:16 <Isabela Del Rio - Last Filed: 11/06/18 06:05> Results - Vital Signs Recent Vital Signs: Last Vital Signs Temp 98.0 F 11/06/18 01:54 Pulse 68 11/06/18 02:22 Resp 20 11/06/18 02:22 BP 134/85 11/06/18 01:54 Pulse Ox 100 11/06/18 01:54 - Labs Result Diagrams: 11/05/18 23:13 11/05/18 23:13 Labs: Laboratory Results - last 24 hr 11/05/18 11/05/18 11/05/18 23:13 23:13 23:13 WBC 3.0 L RBC 3.65 Hgb 10.8 L Hct 33.3 L MCV 91.2 MCH 29.6 MCHC 32.4 RDW 15.7 H Plt Count 171 MPV 10.5 PT 10.3 INR 0.91 APTT 27.7 Sodium 136 Potassium 3.6 Chloride 100 Carbon Dioxide 27 Anion Gap 12 BUN 14 Creatinine 0.7 L Est GFR ( Amer) > 60 Est GFR (Non-Af Amer) > 60 Random Glucose 101 Calcium 9.5 Total Bilirubin 0.2 AST 54 ALT 50 Alkaline Phosphatase 47 Lactate Dehydrogenase 473 Total Creatine Kinase 344 H CK-MB (CK-2) 1.5 CK-MB (CK-2) % Cancelled Troponin I < 0.01 Total Protein 7.3 Albumin 4.5 Globulin 2.8 Albumin/Globulin Ratio 1.6 Urine Opiates Screen Urine Methadone Screen Ur Barbiturates Screen Ur Phencyclidine Scrn Ur Amphetamines Screen U Benzodiazepines Scrn U Oth Cocaine Metabols U Cannabinoids Screen Alcohol, Quantitative 11/05/18 11/06/18 23:13 00:20 WBC RBC Hgb Hct MCV MCH MCHC RDW Plt Count MPV PT INR APTT Sodium Potassium Chloride Carbon Dioxide Anion Gap BUN Creatinine Est GFR ( Amer) Est GFR (Non-Af Amer) Random Glucose Calcium Total Bilirubin AST ALT Alkaline Phosphatase Lactate Dehydrogenase Total Creatine Kinase CK-MB (CK-2) CK-MB (CK-2) % Troponin I Total Protein Albumin Globulin Albumin/Globulin Ratio Urine Opiates Screen Negative Urine Methadone Screen Negative Ur Barbiturates Screen Negative Ur Phencyclidine Scrn Negative Ur Amphetamines Screen Negative U Benzodiazepines Scrn Negative U Oth Cocaine Metabols Negative U Cannabinoids Screen Negative Alcohol, Quantitative < 10 Attending/Attestation - Attestation I have personally seen and examined this patient.: Yes I have fully participated in the care of the patient.: Yes I have reviewed all pertinent clinical information: Yes
[2018-11-06] MEDS ORDERED: Multivitamin (MVI) 10 ML, Thiamine 100 MG, Folic Acid 1 MG in Sodium Chloride 0.9% 1,00... IV ONE (01:13)
[2018-11-06 01:46] LABS: BARBITURATES, UR NEGATIVE (NEGATIVE); BENZODIAZEPINES, UR NEGATIVE (NEGATIVE); OPIATES, UR NEGATIVE (NEGATIVE); PHENCYCLIDINE, UR NEGATIVE (NEGATIVE)
[2018-11-06 04:40] VITALS: RESP 20
[2018-11-06 07:41] LABS: ALB/GLOB RATIO 1.6 (1.1-1.8); ALBUMIN 4.2 g/dL (3.0-4.8); ALT/SGPT 47 U/L (7-56); AST/SGOT 37 U/L (17-59); BLOOD UREA NITROGEN 12 mg/dL (7-21); CALCIUM 9.5 mg/dL (8.4-10.5); GFR NON-AFRICAN AMERICAN > 60
--- NOTE | 2018-11-06 07:54 | RAD ---
Date of service: 11/05/2018 HISTORY: chest pain COMPARISON: Portable chest 10/31/2018. FINDINGS: LUNGS: No active pulmonary disease. PLEURA: No significant pleural effusion identified, no pneumothorax apparent. CARDIOVASCULAR: No aortic atherosclerotic calcification present. Normal cardiac size. No pulmonary vascular congestion. OSSEOUS STRUCTURES: No significant abnormalities. VISUALIZED UPPER ABDOMEN: Normal. OTHER FINDINGS: None. IMPRESSION: No interval acute cardiopulmonary disease appreciated.
[2018-11-06] MEDS ORDERED: Multivitamin Therapeutic Tab PO SCH (08:00)
[2018-11-06 08:18] LABS: BASO # 0.01 K/mm3 (0.0-2.0); BASO % 0.2 % (0.0-3.0); EOS # 0.1 (0.0-0.7); EOS % 1.5 % (1.5-5.0); GRAN # 1.68 (1.4-6.5); GRAN % 41.4 % (50.0-68.0); HEMOGLOBIN 11.1 g/dL (14.0-18.0); LYMPH # 1.8 (1.2-3.4); LYMPH % 43.1 % (22.0-35.0); MEAN CELL VOLUME 90.8 fl (80.0-105.0); MEAN CORPUSCULAR HEMOGLOBIN 29.3 pg (25.0-35.0); MEAN CORPUSCULAR HGB CONC 32.3 g/dl (31.0-37.0); MEAN PLATELET VOLUME 10.2 fl (7.0-11.0); MONO # 0.6 (0.1-0.6); MONO % 13.8 % (1.0-6.0); RBC 3.79 10^6/uL (3.5-6.1); RED CELL DISTRIBUTION WIDTH 15.5 % (11.5-14.5); WHITE BLOOD COUNT 4.1 10^3/uL (4.5-11.0)
[2018-11-06 08:21] VITALS: O2SAT 99
[2018-11-06 12:22] VITALS: BP 135/99; PULSE 69; TEMP 97.8
--- NOTE | 2018-11-06 16:39 | CP.PCM.DIS ---
<Ray Maldonado - Last Filed: 11/06/18 16:36> Provider - Provider Date of Admission: 11/06/18 00:13 Attending physician: Yi Oliver MD Consults: 11/06/18 01:00 Cardiology Consult Routine Comment: Consulting Provider: Suhail Mariano Consulting Physician: Suhail Mariano Reason for Consult: chest pain rule out ACS 11/06/18 03:14 Social Work Referral Routine Comment: admission assessment Physician Instructions: Reason For Exam: demarco score 7 11/06/18 04:14 Transition In Care/Readmission Reduction Routine Comment: Physician Instructions: Reason For Exam: admission assessment Time Spent in preparation of Discharge (in minutes): 35 Diagnosis - Discharge Diagnosis (1) Chest pain Status: Acute Priority: High (2) Alcohol abuse Status: Chronic Priority: High (3) Cocaine abuse Status: Chronic Priority: High Hospital Course - Lab Results Lab Results: Most Recent Lab Values WBC 4.1 10^3/uL (4.5-11.0) L D 11/06/18 07:30 RBC 3.79 10^6/uL (3.5-6.1) 11/06/18 07:30 Hgb 11.1 g/dL (14.0-18.0) L 11/06/18 07:30 Hct 34.4 % (42.0-52.0) L 11/06/18 07:30 MCV 90.8 fl (80.0-105.0) 11/06/18 07:30 MCH 29.3 pg (25.0-35.0) 11/06/18 07:30 MCHC 32.3 g/dl (31.0-37.0) 11/06/18 07:30 RDW 15.5 % (11.5-14.5) H 11/06/18 07:30 Plt Count 159 10^3/uL (120.0-450.0) 11/06/18 07:30 MPV 10.2 fl (7.0-11.0) 11/06/18 07:30 Gran % 41.4 % (50.0-68.0) L 11/06/18 07:30 Lymph % (Auto) 43.1 % (22.0-35.0) H 11/06/18 07:30 [place] % (Auto) 13.8 % (1.0-6.0) H 11/06/18 07:30 Eos % (Auto) 1.5 % (1.5-5.0) 11/06/18 07:30 Baso % (Auto) 0.2 % (0.0-3.0) 11/06/18 07:30 Gran # 1.68 (1.4-6.5) 11/06/18 07:30 Lymph # (Auto) 1.8 (1.2-3.4) 11/06/18 07:30 [place] # (Auto) 0.6 (0.1-0.6) 11/06/18 07:30 Eos # (Auto) 0.1 (0.0-0.7) 11/06/18 07:30 Baso # (Auto) 0.01 K/mm3 (0.0-2.0) 11/06/18 07:30 PT 10.3 SECONDS (9.4-12.5) 11/05/18 23:13 INR 0.91 11/05/18 23:13 APTT 27.7 Seconds (25.1-36.5) 11/05/18 23:13 Sodium 135 mmol/L (132-148) 11/06/18 06:00 Potassium 3.7 mmol/L (3.6-5.0) 11/06/18 06:00 Chloride 100 mmol/L (98-107) 11/06/18 06:00 Carbon Dioxide 27 mmol/L (21-33) 11/06/18 06:00 Anion Gap 11 (10-20) 11/06/18 06:00 BUN 12 mg/dL (7-21) 11/06/18 06:00 Creatinine 0.7 mg/dl (0.8-1.5) L 11/06/18 06:00 Est GFR ( Amer) > 60 11/06/18 06:00 Est GFR (Non-Af Amer) > 60 11/06/18 06:00 Random Glucose 98 mg/dL (70-110) 11/06/18 06:00 Calcium 9.5 mg/dL (8.4-10.5) 11/06/18 06:00 Total Bilirubin 0.4 mg/dL (0.2-1.3) 11/06/18 06:00 AST 37 U/L (17-59) 11/06/18 06:00 ALT 47 U/L (7-56) 11/06/18 06:00 Alkaline Phosphatase 46 U/L (38-126) 11/06/18 06:00 Lactate Dehydrogenase 473 U/L (333-699) 11/05/18 23:13 Total Creatine Kinase 344 U/L (35-230) H 11/05/18 23:13 CK-MB (CK-2) 1.5 ng/mL (0.0-3.6) 11/05/18 23:13 CK-MB (CK-2) % Cancelled 11/05/18 23:13 Troponin I < 0.01 ng/mL 11/06/18 11:00 Total Protein 6.8 g/dL (5.8-8.3) 11/06/18 06:00 Albumin 4.2 g/dL (3.0-4.8) 11/06/18 06:00 Globulin 2.6 gm/dL 11/06/18 06:00 Albumin/Globulin Ratio 1.6 (1.1-1.8) 11/06/18 06:00 Urine Opiates Screen Negative (NEGATIVE) 11/06/18 00:20 Urine Methadone Screen Negative (NEGATIVE) 11/06/18 00:20 Ur Barbiturates Screen Negative (NEGATIVE) 11/06/18 00:20 Ur Phencyclidine Scrn Negative (NEGATIVE) 11/06/18 00:20 Ur Amphetamines Screen Negative (NEGATIVE) 11/06/18 00:20 U Benzodiazepines Scrn Negative (NEGATIVE) 11/06/18 00:20 U Oth Cocaine Metabols Negative (NEGATIVE) 11/06/18 00:20 U Cannabinoids Screen Negative (NEGATIVE) 11/06/18 00:20 Alcohol, Quantitative < 10 mg/dL (0-10) 11/05/18 23:13 - Hospital Course Hospital Course: Upon Admission Pt is a 43 yo male well known to [facility] with past medical history of hypertension, colitis, alcohol abuse, tobacco abuse, cocaine abuse, marijuana abuse, depression, and anxiety presents with chest pain, shortness of breath, diaphoresis, fatigue, headache, and dizziness. Patient last reported cocaine use was a day before admission. Patient also complained of sharp headache on the top of his head but denied lacrimation, salivation, change in vision, nasal congestion. Hospitalization Pt was treated for chest pain and an ACS rule out. The chest pain was likely cocaine induced. Troponinx1: <0.01. Aspirin 325 in the ED. Held beta blockers as patient has history of cocaine use. Dr. Mariano, Cardiology, consulted for recommendations. CIWA protocol initiated given banana bag. Discharge Follow up with your Primary care doctor, Dr. Heard, within 3-5 days. Please take medications as prescribed. Given a prescription for all medication last week at last admission. Please follow up with cardiology, Dr. Mariano, as outpatient. The brass sorter who saw you at last admission, Dr. Armendariz recommended outpatient stress test within 1 week of discharge. The stress test number is [phone]. Please refrain from using any illegal substances such as cocaine and abstain from alcohol. This can CAUSE CHEST PAIN. If symptoms return, please return to nearest emergency room - Date & Time of H&P Date of H&P: 11/06/18 Time of H&P: 07:00 Discharge Exam - Head Exam Head Exam: ATRAUMATIC, NORMAL INSPECTION, NORMOCEPHALIC - Eye Exam Eye Exam: EOMI - ENT Exam ENT Exam: Mucous Membranes Moist - Neck Exam Neck exam: Full Rom - Respiratory Exam Respiratory Exam: Accessory Muscle Use, NORMAL BREATHING PATTERN. absent: Respiratory Distress - Cardiovascular Exam Cardiovascular Exam: RRR, +S1, +S2. absent: Diastolic murmur, Systolic Murmur - GI/Abdominal Exam GI & Abdominal Exam: Normal Bowel Sounds, Soft. absent: Tenderness - Extremities Exam Extremities exam: full ROM, pedal pulses present - Neurological Exam Neurological exam: Alert, Oriented x3 - Psychiatric Exam Psychiatric exam: Normal Affect, Normal Mood - Skin Skin Exam: Dry, Intact, Warm Discharge Plan - Follow Up Plan Condition: STABLE Disposition: HOME/ ROUTINE Instructions: Chest Pain (DC) Additional Instructions: Follow up with your Primary care doctor, Dr. Heard, within 3-5 days week Please take medications as prescribed. You were given a prescription for all your medication last week at last admission. Please follow up with cardiology, Dr. Mariano, as outpatient. The brass sorter who saw you at last admission, Dr. Armendariz recommended outpatient stress test within 1 week of discharge. The stress test number is [phone]. Please refrain from using any illegal substances such as cocaine and abstain from alcohol. This can CAUSE CHEST PAIN. If symptoms return, please return to nearest emergency room Referrals: Suhail Mariano MD [Staff Provider] - Sonny Armendariz MD [Staff Provider] - Griselda Heard MD [Medical Doctor] - <Yi Oliver - Last Filed: 11/06/18 17:17> Provider - Provider Date of Admission: 11/06/18 00:13 Attending physician: Yi Oliver MD Consults: 11/06/18 01:00 Cardiology Consult Routine Comment: Consulting Provider: Suhail Mariano Consulting Physician: Suhail Mariano Reason for Consult: chest pain rule out ACS 11/06/18 03:14 Social Work Referral Routine Comment: admission assessment Physician Instructions: Reason For Exam: demarco score 7 11/06/18 04:14 Transition In Care/Readmission Reduction Routine Comment: Physician Instructions: Reason For Exam: admission assessment Hospital Course - Lab Results Lab Results: Most Recent Lab Values WBC 4.1 10^3/uL (4.5-11.0) L D 11/06/18 07:30 RBC 3.79 10^6/uL (3.5-6.1) 11/06/18 07:30 Hgb 11.1 g/dL (14.0-18.0) L 11/06/18 07:30 Hct 34.4 % (42.0-52.0) L 11/06/18 07:30 MCV 90.8 fl (80.0-105.0) 11/06/18 07:30 MCH 29.3 pg (25.0-35.0) 11/06/18 07:30 MCHC 32.3 g/dl (31.0-37.0) 11/06/18 07:30 RDW 15.5 % (11.5-14.5) H 11/06/18 07:30 Plt Count 159 10^3/uL (120.0-450.0) 11/06/18 07:30 MPV 10.2 fl (7.0-11.0) 11/06/18 07:30 Gran % 41.4 % (50.0-68.0) L 11/06/18 07:30 Lymph % (Auto) 43.1 % (22.0-35.0) H 11/06/18 07:30 [place] % (Auto) 13.8 % (1.0-6.0) H 11/06/18 07:30 Eos % (Auto) 1.5 % (1.5-5.0) 11/06/18 07:30 Baso % (Auto) 0.2 % (0.0-3.0) 11/06/18 07:30 Gran # 1.68 (1.4-6.5) 11/06/18 07:30 Lymph # (Auto) 1.8 (1.2-3.4) 11/06/18 07:30 [place] # (Auto) 0.6 (0.1-0.6) 11/06/18 07:30 Eos # (Auto) 0.1 (0.0-0.7) 11/06/18 07:30 Baso # (Auto) 0.01 K/mm3 (0.0-2.0) 11/06/18 07:30 PT 10.3 SECONDS (9.4-12.5) 11/05/18 23:13 INR 0.91 11/05/18 23:13 APTT 27.7 Seconds (25.1-36.5) 11/05/18 23:13 Sodium 135 mmol/L (132-148) 11/06/18 06:00 Potassium 3.7 mmol/L (3.6-5.0) 11/06/18 06:00 Chloride 100 mmol/L (98-107) 11/06/18 06:00 Carbon Dioxide 27 mmol/L (21-33) 11/06/18 06:00 Anion Gap 11 (10-20) 11/06/18 06:00 BUN 12 mg/dL (7-21) 11/06/18 06:00 Creatinine 0.7 mg/dl (0.8-1.5) L 11/06/18 06:00 Est GFR ( Amer) > 60 11/06/18 06:00 Est GFR (Non-Af Amer) > 60 11/06/18 06:00 Random Glucose 98 mg/dL (70-110) 11/06/18 06:00 Calcium 9.5 mg/dL (8.4-10.5) 11/06/18 06:00 Total Bilirubin 0.4 mg/dL (0.2-1.3) 11/06/18 06:00 AST 37 U/L (17-59) 11/06/18 06:00 ALT 47 U/L (7-56) 11/06/18 06:00 Alkaline Phosphatase 46 U/L (38-126) 11/06/18 06:00 Lactate Dehydrogenase 473 U/L (333-699) 11/05/18 23:13 Total Creatine Kinase 344 U/L (35-230) H 11/05/18 23:13 CK-MB (CK-2) 1.5 ng/mL (0.0-3.6) 11/05/18 23:13 CK-MB (CK-2) % Cancelled 11/05/18 23:13 Troponin I < 0.01 ng/mL 11/06/18 11:00 Total Protein 6.8 g/dL (5.8-8.3) 11/06/18 06:00 Albumin 4.2 g/dL (3.0-4.8) 11/06/18 06:00 Globulin 2.6 gm/dL 11/06/18 06:00 Albumin/Globulin Ratio 1.6 (1.1-1.8) 11/06/18 06:00 Urine Opiates Screen Negative (NEGATIVE) 11/06/18 00:20 Urine Methadone Screen Negative (NEGATIVE) 11/06/18 00:20 Ur Barbiturates Screen Negative (NEGATIVE) 11/06/18 00:20 Ur Phencyclidine Scrn Negative (NEGATIVE) 11/06/18 00:20 Ur Amphetamines Screen Negative (NEGATIVE) 11/06/18 00:20 U Benzodiazepines Scrn Negative (NEGATIVE) 11/06/18 00:20 U Oth Cocaine Metabols Negative (NEGATIVE) 11/06/18 00:20 U Cannabinoids Screen Negative (NEGATIVE) 11/06/18 00:20 Alcohol, Quantitative < 10 mg/dL (0-10) 11/05/18 23:13 Attending/Attestation - Attestation I have personally seen and examined this patient.: Yes I have fully participated in the care of the patient.: Yes I have reviewed all pertinent clinical information, including history, physical exam and plan: Yes Notes (Text): 11/06/18 17:15 attending note; Patient seen and examined with resident. Patient is alert and awake. denies any chest pain, shortness of breath. Denies any abdominal pain. denies any palpitation. Tolerating diet well. Patient continues to drink alcohol And uses drugs despite multiple admission for alcoholic gastritis and pancreatitis in the past. Patient is a 43 year old male with pmhx of HTN, colitis, Etoh abuse, anxiety and depression is admitted for chest discomfort. Patient was admitted to telemetry and monitored. Cardiac enzymes 3 negative. Cardiology evaluation appreciated. Outpatient stress test recommended. Information given. Continue multivitamin, thiamine, folic acid. complete drug abuse cessation is strongly advised. Psychiatric evaluation offered. Patient refused. Denies any suicidal, homicidal ideation. Complete alcohol cessation is strongly advised. prognosis is poor secondary to continuous alcohol and drug abuse. Upon discharge patient will follow up with PMD Dr. Heard.
--- NOTE | 2018-11-06 19:35 | CON ---
DATE: 11/06/2018 CARDIOLOGY CONSULTATION REASON FOR CONSULTATION: Chest pain. HISTORY OF PRESENT ILLNESS: The patient is 43 years old male, who has a history of EtOH abuse, hypertension and colitis as well as other substance abuse; presented with chest discomfort, retrosternal, following using cocaine, as he admitted himself. The patient is unaware of any prior heart attack. SOCIAL HISTORY: The patient is a smoker, drinker and has reported cocaine abuse despite his negative urine drug screen. MEDICATIONS: Aspirin 81 mg once a day, Ativan 1 mg intravenously every 6 hours, Lipitor 10 mg once a day, Norvasc 10 mg once a day, multivitamin infusion, Paxil 10 mg once a day, Toradol 30 mg intravenous every 6 hours p.r.n. REVIEW OF SYSTEMS: No nausea or vomiting. No fever or chills. PHYSICAL EXAMINATION: GENERAL: The patient is a middle-aged male, who does not appear to be in any distress. VITAL SIGNS: Blood pressure 134/98, heart rate 68, temperature 98.1. The most recent blood pressure is 124/63. HEENT: Normocephalic. CHEST: Clear. HEART: S1, S2 regular. EXTREMITIES: No edema. DIAGNOSTIC DATA: EKG revealed sinus rhythm at a rate of 78, LVH by voltage. LABORATORY DATA: Urine drug screen is negative. SMA-7 is within normal limits except for creatinine of 0.7. Two sets of troponins are negative. Hemoglobin and hematocrit are 11.1 and 34.4, white count 4.1, platelet count 159,000. The patient tested positive for cocaine on 10/31/2018, i.e., 6 days ago and alcohol level at that day was 68. The most recent echo from 01/2018 revealed normal ejection fraction, mild pulmonary hypertension, and grade 1 abnormal relaxation pattern. ASSESSMENT: 1. Chest pain, myocardial infarction is ruled out. 2. History of cocaine abuse 6 days ago. 3. Depression. RECOMMENDATIONS: Continue current aspirin, Norvasc, Nicoderm patch, Ativan, multivitamin and thiamine. No invasive cardiac workup is justified at this time. Suhail Mariano MD [facility] # [id number]
--- NOTE | 2018-11-06 20:28 | CARD ---
APPROVED REPORT Date of service: 11/05/2018 EKG Measurement Heart [id number] <Conclusion> Normal sinus rhythm Voltage criteria for left ventricular hypertrophy Abnormal ECG
== END 2018-11-06 14:17 | disposition home or self-care (01) ==
LOC: ED 21:50 → ERH 11-06 00:13 → 2RNO 11-06 02:21
PROVIDERS: ADMIT Internal Medicine; ATTEND Internal Medicine
DX: R07.9 Chest pain, unspecified (principal); F10.10 Alcohol abuse, uncomplicated; F14.10 Cocaine abuse, uncomplicated; F17.200 Nicotine dependence, unspecified, uncomplicated; F32.89 Other specified depressive episodes; I10 Essential (primary) hypertension; K21.9 Gastro-esophageal reflux disease without esophagitis; R19.7 Diarrhea, unspecified
CPT/HCPCS: 36415; 71045; 80053; 80320; 80324; 80345; 80346; 80349; 80353; 80358; 80361; 82550; 82553; 83615; 83992; 84484; 85025; 85027; 85610; 85730; 93005; 99285; G0378; J3411; J7030

== ENCOUNTER 2018-11-11 23:45 | Observation (INO) | payer MEDICAID ==
[2018-11-11 23:53] VITALS: BMI 21.0
[2018-11-12] MEDS ORDERED: Sodium Chloride 0.9% 1,000 ML IV STA (00:09)
[2018-11-12] MEDS ORDERED: Morphine 2 mg/ml ISec IVP STA ×2 (00:09→02:14)
--- NOTE | 2018-11-12 00:12 | ED PDOC ---
Arrival/HPI - General Historian: Patient - History of Present Illness Narrative History of Present Illness (Text): 11/12/18 00:09 Piyush Craig is a 43 year old male, whose past medical history includes hypertension, colitis, anxiety, alcohol/substance abuse, and depression, who presents to the emergency department complaining of chest/abdominal pain. Patient states he began experiencing chest pain, upper abdominal pain, nausea, vomiting this evening. Patient admits to consuming alcohol earlier. Patient denies any fever, chills, shortness of breath, diarrhea, urinary symptoms, back pain, neck pain, headache, dizziness, or any other complaints. Symptom Onset: Gradual Symptom Course: Unchanged Activities at Onset: Light Context: Home <Salo Lamas - Last Filed: 11/12/18 04:57> <Ezequiel Marino - Last Filed: 11/12/18 09:19> - General Chief Complaint: Chest Pain Time Seen by Provider: 11/11/18 23:46 Past Medical History - Provider Review Nursing Documentation Reviewed: Yes - Past History Past History: No Previous - Infectious Disease Hx of Infectious Diseases: None - Tetanus Immunization Tetanus Immunization: Unknown - Past Medical History Past Medical History: No Previous - Cardiac Hx Cardiac Disorders: Yes Hx Hypertension: Yes - Pulmonary Hx Respiratory Disorders: Yes (SMOKES 5 CIG A DAY) Other/Comment: light smoker - Neurological Hx Neurological Disorder: Yes Hx Dizziness: Yes Other/Comment: neuropathy - HEENT Hx HEENT Disorder: No - Renal Hx Renal Disorder: No - Endocrine/Metabolic Hx Endocrine Disorders: No - Hematological/Oncological Hx Blood Disorders: No - Integumentary Hx Dermatological Disorder: No - Musculoskeletal/Rheumatological Hx Musculoskeletal Disorders: No Hx Falls: Yes - Gastrointestinal Hx Gastrointestinal Disorders: Yes Hx Gastroesophageal Reflux: Yes Other/Comment: Colitis,GASTRITIS - Genitourinary/Gynecological Hx Genitourinary Disorders: No - Psychiatric Hx Psychophysiologic Disorder: Yes Hx Anxiety: Yes Hx Depression: Yes Hx Substance Use: Yes Other/Comment: substance and alcohol abuse - Past Surgical History Past Surgical History: Non-Contributing - Surgical History Hx Musculoskeletal Surgery: Yes (R foot sx with rods/screws placed) Hx Orthopedic Surgery: Yes - Anesthesia Hx Anesthesia: Yes Hx Anesthesia Reactions: No Hx Malignant Hyperthermia: No - Suicidal Assessment Feels Threatened In Home Enviroment: No <Salo Lamas - Last Filed: 11/12/18 04:57> Family/Social History - Physician Review Nursing Documentation Reviewed: Yes Family/Social History: Unknown Family HX Smoking Status: Current Some Days Smoker Hx Alcohol Use: Yes (DRINKS VODKA DAILY,LAST DRANK YESTERDAY) Hx Substance Use: Yes Substance used: marijuana & cocaine Hx Substance Use Treatment: No <Salo Lamas - Last Filed: 11/12/18 04:57> Allergies/Home Meds <Salo Lamas - Last Filed: 11/12/18 04:57> <Ezequiel Marino - Last Filed: 11/12/18 09:19> Allergies/Adverse Reactions: Allergies No Known Allergies Allergy (Verified 11/11/18 23:53) Review of Systems - Physician Review All systems were reviewed & negative as marked: Yes - Review of Systems Constitutional: Normal. absent: Fevers Eyes: Normal ENT: Normal Respiratory: Normal. absent: SOB, Cough Cardiovascular: Chest Pain Gastrointestinal: Abdominal Pain, Nausea, Vomiting. absent: Diarrhea Genitourinary Male: Normal. absent: Dysuria, Frequency, Hematuria, Urinary Output Changes Musculoskeletal: Normal. absent: Back Pain, Neck Pain Skin: Normal. absent: Rash Neurological: Normal. absent: Headache, Dizziness Endocrine: Normal Hemo/Lymphatic: Normal Psychiatric: Normal <Salo Lamas - Last Filed: 11/12/18 04:57> Physical Exam Vital Signs Reviewed: Yes Vital Signs Temp Pulse Resp BP Pulse Ox 11/11/18 23:57 98.5 F 75 16 148/101 H 100 Temperature: Afebrile Blood Pressure: Normal Pulse: Regular Respiratory Rate: Normal Appearance: Positive for: Well-Appearing, Non-Toxic, Comfortable Pain Distress: None Mental Status: Positive for: Alert and Oriented X 3 - Systems Exam Head: Present: Atraumatic, Normocephalic Pupils: Present: PERRL Extroacular Muscles: Present: EOMI Conjunctiva: Present: Normal Mouth: Present: Moist Mucous Membranes Neck: Present: Normal Range of Motion Respiratory/Chest: Present: Clear to Auscultation, Good Air Exchange. No: Respiratory Distress, Accessory Muscle Use Cardiovascular: Present: Regular Rate and Rhythm, Normal S1, S2. No: Murmurs Abdomen: No: Tenderness, Distention, Peritoneal Signs Back: Present: Normal Inspection Upper Extremity: Present: Normal Inspection. No: Cyanosis, Edema Lower Extremity: Present: Normal Inspection. No: Edema Neurological: Present: GCS=15, CN II-XII Intact, Speech Normal Skin: Present: Warm, Dry, Normal Color. No: Rashes Psychiatric: Present: Alert, Oriented x 3, Normal Insight, Normal Concentration <Salo Lamas - Last Filed: 11/12/18 04:57> Vital Signs Temp Pulse Pulse Resp BP Pulse Ox 11/12/18 08:09 98.6 F 68 18 134/85 98 11/12/18 06:35 98 F 84 18 121/69 98 11/12/18 03:50 76 18 142/84 100 11/12/18 00:23 80 11/11/18 23:57 98.5 F 75 16 148/101 H 100 <JamilaEzequiel L - Last Filed: 11/12/18 09:19> Medical Decision Making ED Course and Treatment: 11/12/18 00:09 Impression: 43 year old male complaining of chest pain, upper abdominal pain, nausea, vomiting. Plan: -- EKG -- Chest X-ray -- Labs, cardiac enzymes, amylase, lipase -- Urinalysis -- IV fluids -- Zofran -- Pepcid -- Morphine -- Reassess and disposition Prior Visits: Notes and results from previous visits were reviewed. Progress Notes: Reviewed EKG, NSR at 75 bpm. LVH. Non-specific ST/T wave changes. 11/12/18 02:35 Chest X-ray reviewed, shows no acute processes. 11/12/18 04:13 Case discussed with medical staff director onyx chip terrazzo worker, who is aware and agrees with plan. 11/12/18 04:[address] Garsia, who is aware and agrees with plan. Accepts pt in to hospitalist service. Pt will go to Telemetry observation for chest pain and intractable vomiting. - Lab Interpretations I have reviewed the lab results: Yes - EKG Interpretation Interpreted by ED Physician: Yes Type: 12 lead EKG <Salo Lamas - Last Filed: 11/12/18 04:57> ED Course and Treatment: 11/12/18 09:17 I reevaluated this patient. His symptoms are stable and he is not in acute painful distress. Troponin negative x 2. He will be transferred to Remote Telemetry. Discussed with Dr. Lentz and Dr. Melendez who are both agree to transfer. - Lab Interpretations Lab Results: PT 11.4 SECONDS (9.4-12.5) 11/12/18 00:23 INR 1.00 11/12/18 00:23 APTT 26.8 Seconds (25.1-36.5) 11/12/18 00:23 Troponin I < 0.01 ng/mL 11/12/18 07:50 Total Bilirubin 0.7 mg/dL (0.2-1.3) 11/12/18 00:23 AST 79 U/L (17-59) H D 11/12/18 00:23 ALT 56 U/L (7-56) 11/12/18 00:23 Alkaline Phosphatase 58 U/L (38-126) 11/12/18 00:23 Total Protein 8.6 g/dL (5.8-8.3) H 11/12/18 00:23 Albumin 5.3 g/dL (3.0-4.8) H 11/12/18 00:23 Globulin 3.4 gm/dL 11/12/18 00:23 Albumin/Globulin Ratio 1.6 (1.1-1.8) 11/12/18 00:23 Amylase 83 U/L (35-125) 11/12/18 00:23 Lipase 107 U/L (23-300) 11/12/18 00:23 Urine Color Yellow (YELLOW) 11/12/18 02:28 Urine Appearance Clear (CLEAR) 11/12/18 02:28 Urine pH 6.0 (4.7-8.0) 11/12/18 02:28 Ur Specific [place] >= 1.030 (1.005-1.035) 11/12/18 02:28 Urine Protein Trace mg/dL (<30 mg/dL) H 11/12/18 02:28 Urine Glucose (UA) Negative mg/dL (NEGATIVE) 11/12/18 02:28 Urine Ketones Negative mg/dL (NEGATIVE) 11/12/18 02:28 Urine Blood Negative (NEGATIVE) 11/12/18 02:28 Urine Nitrate Negative (NEGATIVE) 11/12/18 02:28 Urine Bilirubin Negative (NEGATIVE) 11/12/18 02:28 Urine Urobilinogen 0.2 E.U./dL (<1 E.U./dL) 11/12/18 02:28 Ur Leukocyte Esterase Negative Georges/uL (NEGATIVE) 11/12/18 02:28 Urine RBC 0 - 2 /hpf (0-2) 11/12/18 02:28 Urine WBC 0 - 2 /hpf (0-6) 11/12/18 02:28 Ur Epithelial Cells 1 - 3 /hpf (0-5) 11/12/18 02:28 Urine Other Mucus /hpf 11/12/18 02:28 - RAD Interpretation Radiology Orders: 11/12/18 00:16 CHEST PORTABLE [RAD] Stat - Medication Orders Current Medication Orders: Heparin Sodium (Porcine) (Heparin) 5,000 units SC Q8 ALEXADNRA; Protocol Multivitamins/Vitamin C 10 ml/Thiamine HCl 100 mg/ Folic Acid 1 mg/ Sodium Chloride 1,011.2 mls @ 100 mls/hr IV .Q10H7M ONE Stop: 11/12/18 16:26 Last Admin: 11/12/18 09:01 Dose: 100 mls/hr eMAR Start Stop Document 11/12/18 09:01 HN (Rec: 11/12/18 09:01 HN [facility] [id number]) Intravenous Solution Start Date 11/12/18 Start Time 09:01 Lorazepam (Ativan) 2 mg IVP Q6 PRN; Protocol PRN Reason: Symptoms of alcohol withdrawl Ondansetron HCl (Zofran Inj) 4 mg IVP Q4H PRN PRN Reason: Nausea/Vomiting Pantoprazole Sodium (Protonix Inj) 40 mg IVP DAILY ALEXANDRA Discontinued Medications Famotidine (Pepcid) 20 mg IVP STAT STA Stop: 11/12/18 00:10 Last Admin: 11/12/18 00:25 Dose: 20 mg IVP Administration Document 11/12/18 00:25 RD (Rec: 11/12/18 00:32 RD [id number]) Charges for Administration # of IVP Administrations 1 Sodium Chloride (Sodium Chloride 0.9%) 1,000 mls @ 100 mls/hr IV .Q10H STA Stop: 11/12/18 10:08 Last Admin: 11/12/18 00:23 Dose: 100 mls/hr eMAR Start Stop Document 11/12/18 00:23 RD (Rec: 11/12/18 00:32 RD [id number]) Intravenous Solution Start Date 11/12/18 Start Time 00:23 End Date 11/12/18 End time 09:02 Total Infusion Time 519 Morphine Sulfate (Morphine) 2 mg IVP STAT STA Stop: 11/12/18 00:10 Last Admin: 11/12/18 00:33 Dose: 2 mg MAR Pain Assessment Document 11/12/18 00:33 RD (Rec: 11/12/18 00:33 RD [id number]) Pain Reassessment Is this a pain reassessment? No Sleep Is patient sleeping during reassessment? No Presence of Pain Presence of Pain Yes IVP Administration Document 11/12/18 00:33 RD (Rec: 11/12/18 00:33 RD [id number]) Charges for Administration # of IVP Administrations 1 Morphine Sulfate (Morphine) 2 mg IVP STAT STA Stop: 11/12/18 02:15 Last Admin: 11/12/18 02:25 Dose: 2 mg MAR Pain Assessment Document 11/12/18 02:25 RD (Rec: 11/12/18 02:31 RD [id number]) Pain Reassessment Is this a pain reassessment? No Sleep Is patient sleeping during reassessment? No Presence of Pain Presence of Pain Yes Location Pain Location Body Site Chest Abdomen IVP Administration Document 11/12/18 02:25 RD (Rec: 11/12/18 02:31 RD [id number]) Charges for Administration # of IVP Administrations 1 Ondansetron HCl (Zofran Inj) 4 mg IVP STAT STA Stop: 11/12/18 00:10 Last Admin: 11/12/18 00:23 Dose: 4 mg IVP Administration Document 11/12/18 00:23 RD (Rec: 11/12/18 00:32 RD [id number]) Charges for Administration # of IVP Administrations 1 <Ezequiel Marino - Last Filed: 11/12/18 09:19> - Scribe Statement The provider has reviewed the documentation as recorded by the Ruth Pastor Provider Scribe Attestation: All medical record entries made by the Scribe were at my direction and personally dictated by me. I have reviewed the chart and agree that the record accurately reflects my personal performance of the history, physical exam, medical decision making, and the department course for this patient. I have also personally directed, reviewed, and agree with the discharge instructions and disposition. <Salo Lamas - Last Filed: 11/12/18 04:57> Disposition/Present on Arrival - Present on Arrival History of DVT/PE: No History of Uncontrolled Diabetes: No Urinary Catheter: No History of Decub. Ulcer: No History Surgical Site Infection Following: None <Salo Lamas - Last Filed: 11/12/18 04:57>
[2018-11-12 00:38] LABS: BASO # 0.04 K/mm3 (0.0-2.0); BASO % 1.3 % (0.0-3.0); EOS % 0.3 % (1.5-5.0); GRAN # 1.32 (1.4-6.5); GRAN % 42.9 % (50.0-68.0); HEMOGLOBIN 12.5 g/dL (14.0-18.0); LYMPH # 1.3 (1.2-3.4); LYMPH % 42.2 % (22.0-35.0); MEAN CELL VOLUME 90.2 fl (80.0-105.0); MEAN CORPUSCULAR HEMOGLOBIN 29.9 pg (25.0-35.0); MEAN CORPUSCULAR HGB CONC 33.2 g/dl (31.0-37.0); MEAN PLATELET VOLUME 10.1 fl (7.0-11.0); MONO # 0.4 (0.1-0.6); MONO % 13.3 % (1.0-6.0); RBC 4.18 10^6/uL (3.5-6.1); RED CELL DISTRIBUTION WIDTH 14.7 % (11.5-14.5); WHITE BLOOD COUNT 3.1 10^3/uL (4.5-11.0)
[2018-11-12 00:43] LABS: PARTIAL THROMBOPLASTIN TIME 26.8 Seconds (25.1-36.5); PROTHROMBIN TIME 11.4 SECONDS (9.4-12.5)
[2018-11-12 01:01] LABS: ALB/GLOB RATIO 1.6 (1.1-1.8); ALBUMIN 5.3 g/dL (3.0-4.8); ALT/SGPT 56 U/L (7-56); AMYLASE 83 U/L (35-125); AST/SGOT 79 U/L (17-59); BLOOD UREA NITROGEN 13 mg/dL (7-21); CALCIUM 10.1 mg/dL (8.4-10.5); GFR NON-AFRICAN AMERICAN > 60; LIPASE 107 U/L (23-300); TROPONIN I < 0.01 ng/mL
[2018-11-12 01:05] LABS: CK-MB 3.4 ng/mL (0.0-3.6)
[2018-11-12 02:56] LABS: URINE BILIRUBIN NEGATIVE (NEGATIVE); URINE BLOOD NEGATIVE (NEGATIVE); URINE GLUCOSE (UA) NEGATIVE (NEGATIVE); URINE LEUKOCYTE ESTERASE NEGATIVE Leu/uL (NEGATIVE); URINE PROTEIN TRACE mg/dL (<30 mg/dL); URINE UROBILINOGEN 0.2 E.U./dL (<1 E.U./dL)
[2018-11-12 02:57] LABS: URINE APPEARANCE CLEAR (CLEAR); URINE COLOR YELLOW (YELLOW)
[2018-11-12 03:08] LABS: URINE RBC 0 - 2 /hpf (0-2); URINE WBC 0 - 2 /hpf (0-6)
[2018-11-12 04:18] LABS: BARBITURATES, UR NEGATIVE (NEGATIVE); BENZODIAZEPINES, UR NEGATIVE (NEGATIVE); OPIATES, UR POSITIVE (NEGATIVE); PHENCYCLIDINE, UR NEGATIVE (NEGATIVE)
--- NOTE | 2018-11-12 04:54 | CP.PCM.HP ---
<Fred Tamez - Last Filed: 11/12/18 07:38> History of Present Illness - History of Present Illness History of Present Illness: PGY-1 H&P for Dr. Garsia CC: Chest pain, nausea, and vomiting HPI: 43 year old male with past medical history of hypertension, colitis, alcohol abuse, tobacco abuse, cocaine abuse, marijuana abuse, depression, and anxiety presents with chest pain, upper abdominal pain, nausea, and vomiting. Patient states that he was sitting at home watching TV when the symptoms started in the evening. He describes the chest pain to be achy and burning, radiating to the a bdomen, and 6/10 in severity. Patient admits to consuming several shots of vodka earlier in the day. Patient was recently discharged on 11/06/2017 for alcohol withdrawal. Patient denies any fever, chills, cough, headaches, shortness of breath, diarrhea, or urinary symptoms. 12 system ROS reviewed and negative except PMH: hypertension, colitis, alcohol abuse, tobacco abuse, cocaine abuse, marijuana abuse, depression, and anxiety PSH: Right ankle surgery FMHx: denies SHx: 10/31 PPD for 31 years, 1 pint of vodka daily, cocaine use, marijuana use Allergies: NKDA PMD: Dr. Heard Pharmacy: [facility] Rx: paxil, amlodipine Present on Admission - Present on Admission Any Indicators Present on Admission: No History of DVT/PE: No History of Uncontrolled Diabetes: No Urinary Catheter: No Decubitus Ulcer Present: No Review of Systems - Review of Systems All systems: reviewed and no additional remarkable complaints except Past Patient History - Infectious Disease Hx of Infectious Diseases: None - Tetanus Immunizations Tetanus Immunization: Unknown - Past Medical History & Family History Past Medical History?: Yes - Past Social History Smoking Status: Current Some Days Smoker - CARDIAC Hx Cardiac Disorders: Yes Hx Hypertension: Yes - PULMONARY Hx Respiratory Disorders: Yes (SMOKES 5 CIG A DAY) Other/Comment: light smoker - NEUROLOGICAL Hx Neurological Disorder: Yes Hx Dizziness: Yes Other/Comment: neuropathy - HEENT Hx HEENT Problems: No - RENAL Hx Chronic Kidney Disease: No - ENDOCRINE/METABOLIC Hx Endocrine Disorders: No - HEMATOLOGICAL/ONCOLOGICAL Hx Blood Disorders: No - INTEGUMENTARY Hx Dermatological Problems: No - MUSCULOSKELETAL/RHEUMATOLOGICAL Hx Musculoskeletal Disorders: No Hx Falls: Yes - GASTROINTESTINAL Hx Gastrointestinal Disorders: Yes Hx Gastroesophageal Reflux: Yes Other/Comment: Colitis,GASTRITIS - GENITOURINARY/GYNECOLOGICAL Hx Genitourinary Disorders: No - PSYCHIATRIC Hx Psychophysiologic Disorder: Yes Hx Anxiety: Yes Hx Depression: Yes Hx Substance Use: Yes Other/Comment: substance and alcohol abuse - SURGICAL HISTORY Hx Musculoskeletal Surgery: Yes (R foot sx with rods/screws placed) Hx Orthopedic Surgery: Yes - ANESTHESIA Hx Anesthesia: Yes Hx Anesthesia Reactions: No Hx Malignant Hyperthermia: No Meds Allergies/Adverse Reactions: Allergies Allergy/AdvReac Type Severity Reaction Status Date / Time No Known Allergies Allergy Verified 11/11/18 23:53 Physical Exam - Constitutional Appears: No Acute Distress - Head Exam Head Exam: ATRAUMATIC, NORMAL INSPECTION - Eye Exam Eye Exam: EOMI, Normal appearance - ENT Exam ENT Exam: Mucous Membranes Dry - Respiratory Exam Respiratory Exam: Clear to Auscultation Bilateral. absent: Rales, Rhonchi, Wheezes, Respiratory Distress - Cardiovascular Exam Cardiovascular Exam: REGULAR RHYTHM, +S1, +S2. absent: Gallop, Rubs, Systolic Murmur - GI/Abdominal Exam GI & Abdominal Exam: Normal Bowel Sounds, Soft, Tenderness (Tender to palpation in LUQ). absent: Distended, Firm, Guarding - Extremities Exam Extremities exam: Positive for: normal inspection. Negative for: calf tenderness, pedal edema - Neurological Exam Neurological exam: Alert, CN II-XII Intact, Oriented x3 - Psychiatric Exam Psychiatric exam: Normal Affect, Normal Mood - Skin Skin Exam: Dry, Intact, Normal Color, Warm Results - Vital Signs Recent Vital Signs: Last Vital Signs Temp 98.5 F 11/11/18 23:57 Pulse 76 11/12/18 03:50 Resp 18 11/12/18 03:50 BP 142/84 11/12/18 03:50 Pulse Ox 100 11/12/18 03:50 - Labs Result Diagrams: 11/12/18 00:23 11/12/18 00:23 Labs: Laboratory Results - last 24 hr 11/12/18 11/12/18 11/12/18 00:23 00:23 00:23 WBC 3.1 L D RBC 4.18 Hgb 12.5 L Hct 37.7 L MCV 90.2 MCH 29.9 MCHC 33.2 RDW 14.7 H Plt Count 263 MPV 10.1 Gran % 42.9 L Lymph % (Auto) 42.2 H Gilchrist % (Auto) 13.3 H Eos % (Auto) 0.3 L Baso % (Auto) 1.3 Gran # 1.32 L Lymph # (Auto) 1.3 Gilchrist # (Auto) 0.4 Eos # (Auto) 0.0 Baso # (Auto) 0.04 PT 11.4 INR 1.00 APTT 26.8 Sodium 140 Potassium 4.0 Chloride 100 Carbon Dioxide 25 Anion Gap 18 BUN 13 Creatinine 0.8 Est GFR ( Amer) > 60 Est GFR (Non-Af Amer) > 60 Random Glucose 98 Calcium 10.1 Total Bilirubin 0.7 AST 79 H D ALT 56 Alkaline Phosphatase 58 Lactate Dehydrogenase 620 Total Creatine Kinase 531 H CK-MB (CK-2) 3.4 CK-MB (CK-2) % Cancelled Troponin I < 0.01 Total Protein 8.6 H Albumin 5.3 H Globulin 3.4 Albumin/Globulin Ratio 1.6 Amylase 83 Lipase 107 Urine Color Urine Appearance Urine pH Ur Specific [place] Urine Protein Urine Glucose (UA) Urine Ketones Urine Blood Urine Nitrate Urine Bilirubin Urine Urobilinogen Ur Leukocyte Esterase Urine RBC Urine WBC Ur Epithelial Cells Urine Other Urine Opiates Screen Urine Methadone Screen Ur Barbiturates Screen Ur Phencyclidine Scrn Ur Amphetamines Screen U Benzodiazepines Scrn U Oth Cocaine Metabols U Cannabinoids Screen 11/12/18 11/12/18 02:28 02:28 WBC RBC Hgb Hct MCV MCH MCHC RDW Plt Count MPV Gran % Lymph % (Auto) Gilchrist % (Auto) Eos % (Auto) Baso % (Auto) Gran # Lymph # (Auto) Gilchrist # (Auto) Eos # (Auto) Baso # (Auto) PT INR APTT Sodium Potassium Chloride Carbon Dioxide Anion Gap BUN Creatinine Est GFR ( Amer) Est GFR (Non-Af Amer) Random Glucose Calcium Total Bilirubin AST ALT Alkaline Phosphatase Lactate Dehydrogenase Total Creatine Kinase CK-MB (CK-2) CK-MB (CK-2) % Troponin I Total Protein Albumin Globulin Albumin/Globulin Ratio Amylase Lipase Urine Color Yellow Urine Appearance Clear Urine pH 6.0 Ur Specific [place] >= 1.030 Urine Protein Trace H Urine Glucose (UA) Negative Urine Ketones Negative Urine Blood Negative Urine Nitrate Negative Urine Bilirubin Negative Urine Urobilinogen 0.2 Ur Leukocyte Esterase Negative Urine RBC 0 - 2 Urine WBC 0 - 2 Ur Epithelial Cells 1 - 3 Urine Other Mucus Urine Opiates Screen Positive H Urine Methadone Screen Negative Ur Barbiturates Screen Negative Ur Phencyclidine Scrn Negative Ur Amphetamines Screen Negative U Benzodiazepines Scrn Negative U Oth Cocaine Metabols Negative U Cannabinoids Screen Negative Assessment & Plan - Assessment and Plan (Free Text) Assessment: 43 year old male with past medical history of hypertension, colitis, alcohol abuse, tobacco abuse, cocaine abuse, marijuana abuse, depression, and anxiety presents with chest pain, upper abdominal pain, nausea, and vomiting. Plan: Chest pain, unspecified, r/o ACS - Troponin: 0.01 x 1 - Trend troponins - CXR: no acute processes - EKG: NSR at 75 bpm. LVH. Non-specific ST/T wave changes - TSH: pending Nausea and vomiting - Zofran 4mg - NPO - IV fluid given in ED Alcohol abuse - CIWA protocol - Fall, seizure precautions - Ativan 2mg Q6 PRN - Banana bag - Alcohol level: pending Rhabdomyolysis - IV fluids - CK: 531 - LDH: 620 - Continue to monitor CK and LDH Transaminitis, likely 2/2 alcohol abuse - AST/ALT: 79/56 - Continue to monitor Hx of HTN - Home medications not given due to vomiting - Continue to monitor Hx of HLD - Home medications not given due to vomiting - Lipid panel: pending - Continue to monitor Hx of depression and anxiety - Home medications not given due to vomiting Tobacco use disorder - Educated patient on smoking cessation Cocaine abuse - Educated patient on drug cessation Prophylaxis: - DVT: Heparin 5000 SC Q8 - GI: Protonix 40mg IV QD Case discussed with Dr. Sun Tamez, PGY-1 <Ailyn Garsia - Last Filed: 11/12/18 07:47> Results - Vital Signs Recent Vital Signs: Last Vital Signs Temp 98 F 11/12/18 06:35 Pulse 84 11/12/18 06:35 Resp 18 11/12/18 06:35 BP 121/69 11/12/18 06:35 Pulse Ox 98 11/12/18 06:35 - Labs Result Diagrams: 11/12/18 00:23 11/12/18 00:23 Labs: Laboratory Results - last 24 hr 11/12/18 11/12/18 11/12/18 00:23 00:23 00:23 WBC 3.1 L D RBC 4.18 Hgb 12.5 L Hct 37.7 L MCV 90.2 MCH 29.9 MCHC 33.2 RDW 14.7 H Plt Count 263 MPV 10.1 Gran % 42.9 L Lymph % (Auto) 42.2 H Gil[place] % (Auto) 13.3 H Eos % (Auto) 0.3 L Baso % (Auto) 1.3 Gran # 1.32 L Lymph # (Auto) 1.3 Gilchrist # (Auto) 0.4 Eos # (Auto) 0.0 Baso # (Auto) 0.04 PT 11.4 INR 1.00 APTT 26.8 Sodium 140 Potassium 4.0 Chloride 100 Carbon Dioxide 25 Anion Gap 18 BUN 13 Creatinine 0.8 Est GFR ( Amer) > 60 Est GFR (Non-Af Amer) > 60 Random Glucose 98 Calcium 10.1 Total Bilirubin 0.7 AST 79 H D ALT 56 Alkaline Phosphatase 58 Lactate Dehydrogenase 620 Total Creatine Kinase 531 H CK-MB (CK-2) 3.4 CK-MB (CK-2) % Cancelled Troponin I < 0.01 Total Protein 8.6 H Albumin 5.3 H Globulin 3.4 Albumin/Globulin Ratio 1.6 Amylase 83 Lipase 107 Urine Color Urine Appearance Urine pH Ur Specific [place] Urine Protein Urine Glucose (UA) Urine Ketones Urine Blood Urine Nitrate Urine Bilirubin Urine Urobilinogen Ur Leukocyte Esterase Urine RBC Urine WBC Ur Epithelial Cells Urine Other Urine Opiates Screen Urine Methadone Screen Ur Barbiturates Screen Ur Phencyclidine Scrn Ur Amphetamines Screen U Benzodiazepines Scrn U Oth Cocaine Metabols U Cannabinoids Screen 11/12/18 11/12/18 02:28 02:28 WBC RBC Hgb Hct MCV MCH MCHC RDW Plt Count MPV Gran % Lymph % (Auto) [place] % (Auto) Eos % (Auto) Baso % (Auto) Gran # Lymph # (Auto) [place] # (Auto) Eos # (Auto) Baso # (Auto) PT INR APTT Sodium Potassium Chloride Carbon Dioxide Anion Gap BUN Creatinine Est GFR ( Amer) Est GFR (Non-Af Amer) Random Glucose Calcium Total Bilirubin AST ALT Alkaline Phosphatase Lactate Dehydrogenase Total Creatine Kinase CK-MB (CK-2) CK-MB (CK-2) % Troponin I Total Protein Albumin Globulin Albumin/Globulin Ratio Amylase Lipase Urine Color Yellow Urine Appearance Clear Urine pH 6.0 Ur Specific [place] >= 1.030 Urine Protein Trace H Urine Glucose (UA) Negative Urine Ketones Negative Urine Blood Negative Urine Nitrate Negative Urine Bilirubin Negative Urine Urobilinogen 0.2 Ur Leukocyte Esterase Negative Urine RBC 0 - 2 Urine WBC 0 - 2 Ur Epithelial Cells 1 - 3 Urine Other Mucus Urine Opiates Screen Positive H Urine Methadone Screen Negative Ur Barbiturates Screen Negative Ur Phencyclidine Scrn Negative Ur Amphetamines Screen Negative U Benzodiazepines Scrn Negative U Oth Cocaine Metabols Negative U Cannabinoids Screen Negative Attending/Attestation - Attestation I have personally seen and examined this patient.: Yes I have fully participated in the care of the patient.: Yes I have reviewed all pertinent clinical information: Yes Notes (Text): 11/12/18 07:46 Pt seen with the resident by the bedside. Case discussed in detail. Agree with documentation, assessments, and plan of treatment.
[2018-11-12] MEDS ORDERED: Multivitamin (MVI) 10 ML, Thiamine 100 MG, Folic Acid 1 MG in Sodium Chloride 0.9% 1,00... IV ONE (06:20)
[2018-11-12 08:13] LABS: HDL CHOLESTEROL 91 mg/dL (29-60)
[2018-11-12 08:24] LABS: LDL CHOLESTEROL 38 mg/dL (0-129); TROPONIN I < 0.01 ng/mL
--- NOTE | 2018-11-12 09:56 | CARD ---
APPROVED REPORT Date of service: 11/11/2018 EKG Measurement Heart [id number] <Conclusion> Normal sinus rhythm LVH Early repolarization No change
--- NOTE | 2018-11-12 10:39 | RAD ---
Date of service: 11/12/2018 HISTORY: cp COMPARISON: 11/05/2018 FINDINGS: LUNGS: No active pulmonary disease. PLEURA: No significant pleural effusion identified, no pneumothorax apparent. CARDIOVASCULAR: No aortic atherosclerotic calcification present. Normal cardiac size. No pulmonary vascular congestion. OSSEOUS STRUCTURES: No significant abnormalities. VISUALIZED UPPER ABDOMEN: Normal. OTHER FINDINGS: None. IMPRESSION: No active disease.
--- NOTE | 2018-11-12 14:11 | CT ---
Date of service: 11/12/2018 PROCEDURE: CT Abdomen and Pelvis without intravenous contrast HISTORY: hx recurrent pancreatitis COMPARISON: None. TECHNIQUE: Technique. Contrast dose: Radiation dose: Total exam DLP = 162.0 mGy-cm. This CT exam was performed using one or more of the following dose reduction techniques: Automated exposure control, adjustment of the mA and/or kV according to patient size, and/or use of iterative reconstruction technique. FINDINGS: LOWER THORAX: Unremarkable. LIVER: Unremarkable. No gross lesion or ductal dilatation. GALLBLADDER AND BILE DUCTS: Unremarkable. PANCREAS: Unremarkable. No gross lesion or ductal dilatation. SPLEEN: Unremarkable. ADRENALS: Unremarkable. No mass. KIDNEYS AND URETERS: Unremarkable. No hydronephrosis. No solid mass. VASCULATURE: Unremarkable. No aortic aneurysm. No aortic atherosclerotic calcification or mural plaque present. BOWEL: Unremarkable. No obstruction. No gross mural thickening. APPENDIX: Unremarkable. Normal appendix. PERITONEUM: Unremarkable. No free fluid. No free air. LYMPH NODES: Unremarkable. No enlarged lymph nodes. BLADDER: Unremarkable. REPRODUCTIVE: Unremarkable. BONES: No acute fracture. OTHER FINDINGS: None. IMPRESSION: Unremarkable non contrast enhanced CT of the abdomen.
[2018-11-12] MEDS ORDERED: Pneumococcal 23-Valent Vaccine IM ONE (18:28)
[2018-11-12] MEDS ORDERED: Influenza Vaccine 60 mcg/0.5 mL SYR (4YR UP) IM ONE (18:28)
[2018-11-13] MEDS ORDERED: Pantoprazole 40 mg EC Tab PO SCH (06:00)
[2018-11-13 06:50] LABS: BASO # 0.01 K/mm3 (0.0-2.0); BASO % 0.3 % (0.0-3.0); EOS % 0.8 % (1.5-5.0); GRAN # 1.47 (1.4-6.5); GRAN % 40.2 % (50.0-68.0); HEMOGLOBIN 11.4 g/dL (14.0-18.0); LYMPH # 1.8 (1.2-3.4); LYMPH % 47.8 % (22.0-35.0); MEAN CELL VOLUME 91.5 fl (80.0-105.0); MEAN CORPUSCULAR HEMOGLOBIN 29.4 pg (25.0-35.0); MEAN CORPUSCULAR HGB CONC 32.1 g/dl (31.0-37.0); MEAN PLATELET VOLUME 10.6 fl (7.0-11.0); MONO # 0.4 (0.1-0.6); MONO % 10.9 % (1.0-6.0); RBC 3.88 10^6/uL (3.5-6.1); RED CELL DISTRIBUTION WIDTH 14.5 % (11.5-14.5); WHITE BLOOD COUNT 3.7 10^3/uL (4.5-11.0)
[2018-11-13 07:17] LABS: ALB/GLOB RATIO 1.5 (1.1-1.8); ALBUMIN 4.4 g/dL (3.0-4.8); ALT/SGPT 44 U/L (7-56); AST/SGOT 52 U/L (17-59); BLOOD UREA NITROGEN 10 mg/dL (7-21); CALCIUM 9.4 mg/dL (8.4-10.5); GFR NON-AFRICAN AMERICAN > 60
[2018-11-13 08:06] VITALS: BP 131/97; RESP 20; TEMP 98; O2SAT 100
[2018-11-13 11:45] VITALS: PULSE 73
--- NOTE | 2018-11-13 12:06 | CP.PCM.DIS ---
Provider - Provider Date of Admission: 11/12/18 04:26 Attending physician: Rosa Méndez DO Primary care physician: Griselda Heard MD Consults: 11/12/18 18:28 Inpatient [employer] Core Measures Referral Routine Comment: cp intermittent vomiting Physician Instructions: Reason For Exam: eval Transition In Care/Readmission Reduction Routine Comment: cp/intermittent vomiting Physician Instructions: Reason For Exam: eval Time Spent in preparation of Discharge (in minutes): 45 Hospital Course - Lab Results Lab Results: Most Recent Lab Values WBC 3.7 10^3/uL (4.5-11.0) L 11/13/18 06:25 RBC 3.88 10^6/uL (3.5-6.1) 11/13/18 06:25 Hgb 11.4 g/dL (14.0-18.0) L 11/13/18 06:25 Hct 35.5 % (42.0-52.0) L 11/13/18 06:25 MCV 91.5 fl (80.0-105.0) 11/13/18 06:25 MCH 29.4 pg (25.0-35.0) 11/13/18 06:25 MCHC 32.1 g/dl (31.0-37.0) 11/13/18 06:25 RDW 14.5 % (11.5-14.5) 11/13/18 06:25 Plt Count 239 10^3/uL (120.0-450.0) 11/13/18 06:25 MPV 10.6 fl (7.0-11.0) 11/13/18 06:25 Gran % 40.2 % (50.0-68.0) L 11/13/18 06:25 Lymph % (Auto) 47.8 % (22.0-35.0) H 11/13/18 06:25 [place] % (Auto) 10.9 % (1.0-6.0) H 11/13/18 06:25 Eos % (Auto) 0.8 % (1.5-5.0) L 11/13/18 06:25 Baso % (Auto) 0.3 % (0.0-3.0) 11/13/18 06:25 Gran # 1.47 (1.4-6.5) 11/13/18 06:25 Lymph # (Auto) 1.8 (1.2-3.4) 11/13/18 06:25 [place] # (Auto) 0.4 (0.1-0.6) 11/13/18 06:25 Eos # (Auto) 0.0 (0.0-0.7) 11/13/18 06:25 Baso # (Auto) 0.01 K/mm3 (0.0-2.0) 11/13/18 06:25 PT 11.4 SECONDS (9.4-12.5) 11/12/18 00:23 INR 1.00 11/12/18 00:23 APTT 26.8 Seconds (25.1-36.5) 11/12/18 00:23 Sodium 136 mmol/L (132-148) 11/13/18 06:25 Potassium 3.7 mmol/L (3.6-5.0) 11/13/18 06:25 Chloride 101 mmol/L (98-107) 11/13/18 06:25 Carbon Dioxide 26 mmol/L (21-33) 11/13/18 06:25 Anion Gap 12 (10-20) 11/13/18 06:25 BUN 10 mg/dL (7-21) 11/13/18 06:25 Creatinine 0.8 mg/dl (0.8-1.5) 11/13/18 06:25 Est GFR ( Amer) > 60 11/13/18 06:25 Est GFR (Non-Af Amer) > 60 11/13/18 06:25 Random Glucose 99 mg/dL (70-110) 11/13/18 06:25 Calcium 9.4 mg/dL (8.4-10.5) 11/13/18 06:25 Phosphorus 3.3 mg/dL (2.5-4.5) 11/13/18 06:25 Magnesium 1.7 mg/dL (1.7-2.2) 11/13/18 06:25 Total Bilirubin 0.7 mg/dL (0.2-1.3) 11/13/18 06:25 AST 52 U/L (17-59) 11/13/18 06:25 ALT 44 U/L (7-56) 11/13/18 06:25 Alkaline Phosphatase 54 U/L (38-126) 11/13/18 06:25 Lactate Dehydrogenase 620 U/L (333-699) 11/12/18 00:23 Total Creatine Kinase 531 U/L (35-230) H 11/12/18 00:23 CK-MB (CK-2) 3.4 ng/mL (0.0-3.6) 11/12/18 00:23 CK-MB (CK-2) % Cancelled 11/12/18 00:23 Troponin I < 0.01 ng/mL 11/12/18 13:48 Total Protein 7.3 g/dL (5.8-8.3) 11/13/18 06:25 Albumin 4.4 g/dL (3.0-4.8) 11/13/18 06:25 Globulin 2.9 gm/dL 11/13/18 06:25 Albumin/Globulin Ratio 1.5 (1.1-1.8) 11/13/18 06:25 Triglycerides 84 mg/dL (35-160) 11/12/18 07:50 Cholesterol 129 mg/dL (130-200) L 11/12/18 07:50 LDL Cholesterol Direct 38 mg/dL (0-129) 11/12/18 07:50 HDL Cholesterol 91 mg/dL (29-60) H 11/12/18 07:50 Amylase 83 U/L (35-125) 11/12/18 00:23 Lipase 107 U/L (23-300) 11/12/18 00:23 TSH 3rd Generation 1.50 mIU/mL (0.46-4.68) 11/12/18 07:50 Urine Color Yellow (YELLOW) 11/12/18 02:28 Urine Appearance Clear (CLEAR) 11/12/18 02:28 Urine pH 6.0 (4.7-8.0) 11/12/18 02:28 Ur Specific [place] >= 1.030 (1.005-1.035) 11/12/18 02:28 Urine Protein Trace mg/dL (<30 mg/dL) H 11/12/18 02:28 Urine Glucose (UA) Negative mg/dL (NEGATIVE) 11/12/18 02:28 Urine Ketones Negative mg/dL (NEGATIVE) 11/12/18 02:28 Urine Blood Negative (NEGATIVE) 11/12/18 02:28 Urine Nitrate Negative (NEGATIVE) 11/12/18 02:28 Urine Bilirubin Negative (NEGATIVE) 11/12/18 02:28 Urine Urobilinogen 0.2 E.U./dL (<1 E.U./dL) 11/12/18 02:28 Ur Leukocyte Esterase Negative Georges/uL (NEGATIVE) 11/12/18 02:28 Urine RBC 0 - 2 /hpf (0-2) 11/12/18 02:28 Urine WBC 0 - 2 /hpf (0-6) 11/12/18 02:28 Ur Epithelial Cells 1 - 3 /hpf (0-5) 11/12/18 02:28 Urine Other Mucus /hpf 11/12/18 02:28 Urine Opiates Screen Positive (NEGATIVE) H 11/12/18 02:28 Urine Methadone Screen Negative (NEGATIVE) 11/12/18 02:28 Ur Barbiturates Screen Negative (NEGATIVE) 11/12/18 02:28 Ur Phencyclidine Scrn Negative (NEGATIVE) 11/12/18 02:28 Ur Amphetamines Screen Negative (NEGATIVE) 11/12/18 02:28 U Benzodiazepines Scrn Negative (NEGATIVE) 11/12/18 02:28 U Oth Cocaine Metabols Negative (NEGATIVE) 11/12/18 02:28 U Cannabinoids Screen Negative (NEGATIVE) 11/12/18 02:28 Alcohol, Quantitative < 10 mg/dL (0-10) 11/12/18 07:50 - Hospital Course Hospital Course: Upon admission:43 year old male with past medical history of hypertension, colitis, alcohol abuse, tobacco abuse, cocaine abuse, marijuana abuse, depression, and anxiety presented with chest pain, upper abdominal pain, nausea, and vomiting. Patient states that he was sitting at home watching TV when the symptoms started in the evening. He describes the chest pain to be achy and burning, radiating to the abdomen, and 6/10 in severity. Patient admits to consuming several shots of vodka earlier in the day. Hospital course: Pt was observed to r/o ACS. Troponins were trended and were (-) x 3. No acute EKG changes were noted. CXR revealed no abnormalities. Pt was also treated for ETOH withdrawal. He was given a banana bag, placed on CIWA protocol with ativan IVP prn, seizure and fall precautions. Abdominal CT was performed d/t nausea/vomiting which was unremarkable. He was treated symptomatically with zofran. He was given flu and pneumococcal vaccine. Upon discharge: Pt reports no acute complaints this am, he reports he is feeling better, nausea/vomiting and withdrawal symptoms have improved. Vital signs are stable. His labs are wnl. He was given detailed instructions on follow-up with his primary care physician. He was instructed to continue his medications that he was previously prescribed. He was advised on cessation of alcohol Discharge Exam - Head Exam Head Exam: ATRAUMATIC, NORMAL INSPECTION - Eye Exam Eye Exam: EOMI, Normal appearance - ENT Exam ENT Exam: Mucous Membranes Moist, Normal Exam - Neck Exam Neck exam: Normal Inspection - Respiratory Exam Respiratory Exam: NORMAL BREATHING PATTERN, UNREMARKABLE - Cardiovascular Exam Cardiovascular Exam: REGULAR RHYTHM, +S1, +S2 - GI/Abdominal Exam GI & Abdominal Exam: Unremarkable - Extremities Exam Extremities exam: normal inspection - Back Exam Back exam: NORMAL INSPECTION - Neurological Exam Neurological exam: Alert, Normal Gait, Oriented x3 - Psychiatric Exam Psychiatric exam: Normal Affect, Normal Mood - Skin Skin Exam: Dry, Intact, Warm Discharge Plan - Discharge Medications Prescriptions: Pantoprazole [Protonix] 40 mg PO DAILY #14 ect - Follow Up Plan Condition: GOOD Disposition: HOME/ ROUTINE Instructions: Nausea and Vomiting, Adult (DC), Drug Abuse and Drug Addiction (DC), Alcohol Abuse and Alcoholism (DC) Additional Instructions: Please follow up with your primary care doctor (Dr. Heard) within 3-5 days. Refrain from ALL ALCOHOL AND COCAINE use. Please resume all home medications as previously prescribed. You have been given a script for protonix, please take only as prescribed. If your symptoms return, please present to the nearest emergency department. Referrals: Griselda Heard MD [Primary Care Provider] -
== END 2018-11-13 14:04 | disposition home or self-care (01) ==
LOC: ED 23:45 → ERH 11-12 04:26 → 3RNO 11-12 15:54
PROVIDERS: ADMIT Internal Medicine; ATTEND Hospitalist
DX: R07.9 Chest pain, unspecified (principal); I10 Essential (primary) hypertension; F10.239 Alcohol dependence with withdrawal, unspecified; F14.10 Cocaine abuse, uncomplicated; F12.10 Cannabis abuse, uncomplicated
CPT/HCPCS: 36415; 71045; 74150; 80053; 80061; 80320; 80324; 80345; 80346; 80349; 80353; 80358; 80361; 81001; 82150; 82550; 82553; 83615; 83690; 83735; 83992; 84100; 84443; 84484; 85025; 85610; 85730; 93005; 96360; 96361; 96374; 99285; C9113; G0378; J1644; J2060; J2270; J2405; J3411; J7030

== ENCOUNTER 2018-11-19 07:07 | Emergency (ER) | payer MEDICAID ==
[2018-11-19 07:19] VITALS: BMI 20.9
[2018-11-19 07:24] VITALS: RESP 18
[2018-11-19] MEDS ORDERED: Alum-Mag Hydrox-Simethicone Susp (30 mL) PO STA (07:37)
[2018-11-19] MEDS ORDERED: Atrop/Hyosc/Scopal/PB Elixir (120 ml) PO STA (07:38)
--- NOTE | 2018-11-19 07:51 | ED PDOC ---
Arrival/HPI - General Chief Complaint: Abdominal Pain Time Seen by Provider: 11/19/18 07:14 Historian: Patient - History of Present Illness Narrative History of Present Illness (Text): 11/19/18 07:44 A 43 year old male, whose past medical history includes hypertension, colitis, anxiety, alcohol/substance abuse, and depression, presents to the emergency department complaining of epigastric pain radiating to chest starting 30 minutes [employer] to ER. Patient describes pain as a burning and squeezing sensation. He notes also experiencing nausea, vomiting, and diarrhea. Admits to using cocaine 2 days ago, and has a current history of smoking. Patient denies any bloody stool, or any other complaints at this time. PMD: Dr. Griselda Heard Time/Duration: Prior to Arrival (30 minutes) Past Medical History - Provider Review Nursing Documentation Reviewed: Yes - Past History Past History: No Previous - Infectious Disease Hx of Infectious Diseases: None - Tetanus Immunization Tetanus Immunization: Unknown - Past Medical History Past Medical History: No Previous - Cardiac Hx Cardiac Disorders: Yes Hx Hypertension: Yes - Pulmonary Hx Respiratory Disorders: Yes (SMOKES 5 CIG A DAY) Other/Comment: light smoker - Neurological Hx Neurological Disorder: Yes Hx Dizziness: Yes Other/Comment: neuropathy - HEENT Hx HEENT Disorder: No - Renal Hx Renal Disorder: No - Endocrine/Metabolic Hx Endocrine Disorders: No - Hematological/Oncological Hx Blood Disorders: No - Integumentary Hx Dermatological Disorder: No - Musculoskeletal/Rheumatological Hx Musculoskeletal Disorders: No Hx Falls: Yes - Gastrointestinal Hx Gastrointestinal Disorders: Yes Hx Gastroesophageal Reflux: Yes Other/Comment: Colitis,GASTRITIS - Genitourinary/Gynecological Hx Genitourinary Disorders: No - Psychiatric Hx Psychophysiologic Disorder: Yes Hx Anxiety: Yes Hx Depression: Yes Hx Substance Use: Yes Other/Comment: substance and alcohol abuse - Past Surgical History Past Surgical History: Non-Contributing - Surgical History Hx Musculoskeletal Surgery: Yes (R foot sx with rods/screws placed) Hx Orthopedic Surgery: Yes - Anesthesia Hx Anesthesia: Yes Hx Anesthesia Reactions: No Hx Malignant Hyperthermia: No - Suicidal Assessment Feels Threatened In Home Enviroment: No Family/Social History - Physician Review Nursing Documentation Reviewed: Yes Family/Social History: No Known Family HX Smoking Status: Current Some Days Smoker Hx Alcohol Use: Yes (DRINKS VODKA DAILY,LAST DRANK YESTERDAY) Hx Substance Use: Yes Substance used: marijuana & cocaine Hx Substance Use Treatment: No Allergies/Home Meds Allergies/Adverse Reactions: Allergies No Known Allergies Allergy (Verified 11/11/18 23:53) Review of Systems - Physician Review All systems were reviewed & negative as marked: Yes - Review of Systems Constitutional: Night Sweats. absent: Fevers Cardiovascular: Chest Pain Gastrointestinal: Abdominal Pain (epigastric region radiating to chest pain.), Diarrhea, Nausea, Vomiting. absent: Stool Changes (no bloody stool) Physical Exam Vital Signs Reviewed: Yes Vital Signs Temp Pulse Resp BP Pulse Ox 11/19/18 07:19 98 F 74 18 102/64 98 Temperature: Afebrile Blood Pressure: Normal Pulse: Regular Respiratory Rate: Normal Appearance: Positive for: Well-Appearing, Non-Toxic, Comfortable Pain Distress: None Mental Status: Positive for: Alert and Oriented X 3 - Systems Exam Head: Present: Atraumatic, Normocephalic Pupils: Present: PERRL Extroacular Muscles: Present: EOMI Conjunctiva: Present: Normal Mouth: Present: Moist Mucous Membranes Neck: Present: Normal Range of Motion Respiratory/Chest: Present: Clear to Auscultation, Good Air Exchange. No: Respiratory Distress, Accessory Muscle Use Cardiovascular: Present: Regular Rate and Rhythm, Normal S1, S2. No: Murmurs Abdomen: Present: Tenderness (epigastric). No: Distention, Peritoneal Signs, Rebound, Guarding Back: Present: Normal Inspection Upper Extremity: Present: Normal Inspection. No: Cyanosis, Edema Lower Extremity: Present: Normal Inspection. No: Edema Neurological: Present: GCS=15, CN II-XII Intact, Speech Normal Skin: Present: Warm, Dry, Normal Color. No: Rashes Psychiatric: Present: Alert, Oriented x 3, Normal Insight, Normal Concentration Medical Decision Making ED Course and Treatment: 11/19/18 07:51 Impression: 43 year old male with epigastric pain radiating to chest, nausea, vomiting, and diarrhea. Physical exam shows epigastric tenderness with no guarding.rebound; no other acute findings on examination. Differential Diagnosis included but are not limited to: Gastritis vs. EtOH Plan: -- EKG -- Chest X-ray -- Pepcid -- Elixir -- Pepcid -- Liocaine -- Maalox Plus 30 -- Reassess and disposition Prior Visits: Notes and results from previous visits were reviewed. Patient was last seen in the emergency department on 11/12/2018 for chest/abdominal pain. Patient was admitted. Progress Notes: EKG: Ordered, reviewed, and independently interpreted the EKG. Rate : 74 BPM Rhythm : NSR Interpretation : Moderate LVH. Comparison : 11/05/17 no change in ekg. 11/19/2018 07:59 Chest X-ray IMPRESSION: Dictator: No active disease. 11/19/18 11:21 Patient symptoms improved. He is tolerating PO fluids. His pain has almost resolved. Abdomen is soft, NT, ND. He is alert awake and oriented x 3. His symptoms are typical for his alcohol gastritis and he was advised to please start taking Protonix, Zofran as needed, Zantac and Maalox. He was advised to return to the ED if symptoms worsen or any other concerns. - RAD Interpretation Radiology Orders: 11/19/18 07:37 CHEST PORTABLE [RAD] Stat - Medication Orders Current Medication Orders: Discontinued Medications Al Hydrox/Mg Hydrox/Simethicone (Maalox Plus 30 Ml) 30 ml PO STAT STA Stop: 11/19/18 07:38 Belladonna/Phenobarbital ( Elixir) 5 ml PO STAT STA Stop: 11/19/18 07:39 Famotidine (Pepcid) 20 mg IVP STAT STA Stop: 11/19/18 07:39 Lidocaine HCl (Lidocaine 2% Viscous) 15 ml PO Q3H STA Stop: 11/19/18 07:39 - Scribe Statement The provider has reviewed the documentation as recorded by the Ruth Hope Provider Scribe Attestation: All medical record entries made by the Viralibtylor were at my direction and personally dictated by me. I have reviewed the chart and agree that the record accurately reflects my personal performance of the history, physical exam, medical decision making, and the department course for this patient. I have also personally directed, reviewed, and agree with the discharge instructions and disposition. Disposition/Present on Arrival - Present on Arrival Any Indicators Present on Arrival: No History of DVT/PE: No History of Uncontrolled Diabetes: No Urinary Catheter: No History of Decub. Ulcer: No History Surgical Site Infection Following: None - Disposition Have Diagnosis and Disposition been Completed?: Yes Diagnosis: Alcoholic gastritis Disposition: HOME/ ROUTINE Disposition Time: 11:21 Patient Plan: Discharge Condition: IMPROVED Discharge Instructions (ExitCare): Alcohol Use - When Is Drinking a Problem?, Gastritis (DC) Additional Instructions: ROHINI MARTINEZ JR, thank you for letting us take care of you today. Your provider was Ezequiel Marino DO and you were treated for Alcohol Gastritis. The emergency medical care you received today was directed at your acute symptoms. If you were prescribed any medication, please fill it and take as directed. It may take several days for your symptoms to resolve. Return to the Emergency Department if your symptoms worsen, do not improve, or if you have any other problems. Please contact your doctor or call one of the physicians/clinics you have been referred to that are listed on the Patient Visit Information form that is included in your discharge packet. Bring any paperwork you were given at discharge with you along with any medications you are taking to your follow up visit. Our treatment cannot replace ongoing medical care by a primary care provider outside of the emergency department. Thank you for allowing the [facility] team to be part of your care today. If you had an X-Ray or CT scan: A Radiologist will review the ED reading if any change in treatment is needed we will contact you. If you had a blood, urine, or wound culture: It will take several days for the results, if any change in treatment is needed we will contact you. If you had an STI test: It will take 48 hours for the results. Please call after 1 week if you have not heard back. Prescriptions: Aluminum Hydroxide/Magnesium H [Maalox 30 ml] 30 ml PO Q8 #1 bottle Ondansetron ODT [Zofran ODT] 4 mg PO Q6 #14 odt Pantoprazole [Protonix] 40 mg PO DAILY #30 ect Ranitidine HCl [Zantac] 150 mg PO BID PRN #30 tablet PRN Reason: Pain, Mild (1-3) Referrals: [employer] Fortunato Rearjun, [Non-Staff] - Follow up with primary Garrick Bonilla MD [Staff Provider] - Follow up with primary Forms: [employer] (Hungarian), WORK NOTE
[2018-11-19 07:53] LABS: BASO # 0.03 K/mm3 (0.0-2.0); BASO % 1.1 % (0.0-3.0); EOS % 0.7 % (1.5-5.0); GRAN # 1.07 (1.4-6.5); GRAN % 38.2 % (50.0-68.0); HEMOGLOBIN 11.4 g/dL (14.0-18.0); LYMPH # 1.4 (1.2-3.4); LYMPH % 50.7 % (22.0-35.0); MEAN CELL VOLUME 90.8 fl (80.0-105.0); MEAN CORPUSCULAR HEMOGLOBIN 29.2 pg (25.0-35.0); MEAN CORPUSCULAR HGB CONC 32.2 g/dl (31.0-37.0); MEAN PLATELET VOLUME 10.2 fl (7.0-11.0); MONO # 0.3 (0.1-0.6); MONO % 9.3 % (1.0-6.0); RBC 3.9 10^6/uL (3.5-6.1); RED CELL DISTRIBUTION WIDTH 14.8 % (11.5-14.5); WHITE BLOOD COUNT 2.8 10^3/uL (4.5-11.0)
--- NOTE | 2018-11-19 08:03 | RAD ---
Date of service: 11/19/2018 HISTORY: abd perry COMPARISON: 11/12/2018 FINDINGS: LUNGS: No active pulmonary disease. PLEURA: No significant pleural effusion identified, no pneumothorax apparent. CARDIOVASCULAR: No aortic atherosclerotic calcification present. Normal cardiac size. No pulmonary vascular congestion. OSSEOUS STRUCTURES: Mild thoracic spondylosis. VISUALIZED UPPER ABDOMEN: Normal. OTHER FINDINGS: None. IMPRESSION: No active disease.
[2018-11-19] MEDS ORDERED: Morphine 4 mg/ml ISec IVP STA (09:07)
[2018-11-19 09:33] LABS: ALB/GLOB RATIO 1.5 (1.1-1.8); ALBUMIN 4.7 g/dL (3.0-4.8); ALT/SGPT 44 U/L (7-56); AST/SGOT 64 U/L (17-59); BLOOD UREA NITROGEN 19 mg/dL (7-21); CALCIUM 9.3 mg/dL (8.4-10.5); GFR NON-AFRICAN AMERICAN > 60; LIPASE 173 U/L (23-300)
[2018-11-19 09:36] VITALS: BP 154/99; PULSE 75; O2SAT 100
[2018-11-19 11:22] VITALS: TEMP 97.9
[2018-11-19 11:29] LABS: TROPONIN I 0.01 ng/mL
[2018-11-19 11:32] LABS: CK-MB 1.9 ng/mL (0.0-3.6)
--- NOTE | 2018-11-19 11:55 | CARD ---
APPROVED REPORT Date of service: 11/19/2018 EKG Measurement Heart [id number] <Conclusion> Normal sinus rhythm Moderate voltage criteria for LVH, may be normal variant Borderline ECG
== END 2018-11-19 11:15 | disposition home or self-care (01) ==
LOC: ED 07:07
DX: K29.20 Alcoholic gastritis without bleeding (principal); I10 Essential (primary) hypertension; F17.210 Nicotine dependence, cigarettes, uncomplicated
CPT/HCPCS: 71045; 80053; 80320; 82550; 82553; 83615; 83690; 83735; 84484; 85025; 93005; 96374; 96375; 96376; 99284; C9113; J2270; J2405

== ENCOUNTER 2018-12-02 07:11 | Emergency (ER) | payer MEDICAID ==
[2018-12-02 07:28] VITALS: TEMP 98.2
[2018-12-02 07:29] VITALS: BMI 21.4
[2018-12-02] MEDS ORDERED: Alum-Mag Hydrox-Simethicone Susp (30 mL) PO STA (07:49)
[2018-12-02] MEDS ORDERED: Atrop/Hyosc/Scopal/PB Elixir (120 ml) PO STA (07:50)
--- NOTE | 2018-12-02 07:59 | ED PDOC ---
Arrival/HPI - General Chief Complaint: GI Problem Time Seen by Provider: 12/02/18 07:36 Historian: Patient - History of Present Illness Narrative History of Present Illness (Text): 12/02/18 08:03 43 year old male, whose past medical history includes hypertension, colitis, anxiety, alcohol/substance abuse, and depression, presents to the emergency department complaining of epigastric pain and chest pain. he states the pain originated in the epigastric region and radiates up to his chest. He notes, associated nausea, vomiting, and shortness of breath. Patient states his pain is the same as prior experience of ETOH withdrawal. He reports that he stopped drinking last night at 8pm and he admits cocain use 2 days ago. Of note, patient is well known to the emergency department. He denies fevers, chills, headache, dizziness, chest pain, shortness of breath, dyspnea on exertion, cough, abdominal pain, nausea, vomiting, diarrhea, back pain, neck pain, or any other complaint. PMD: Dr. Griselda Heard Time/Duration: 24 hours Symptom Onset: Gradual Symptom Course: Unchanged Activities at Onset: Light Context: Home Past Medical History - Provider Review Nursing Documentation Reviewed: Yes - Past History Past History: No Previous - Infectious Disease Hx of Infectious Diseases: None - Tetanus Immunization Tetanus Immunization: Unknown - Past Medical History Past Medical History: No Previous - Cardiac Hx Cardiac Disorders: Yes Hx Hypertension: Yes - Pulmonary Hx Respiratory Disorders: Yes (SMOKES 5 CIG A DAY) Other/Comment: light smoker - Neurological Hx Neurological Disorder: Yes Hx Dizziness: Yes Other/Comment: neuropathy - HEENT Hx HEENT Disorder: No - Renal Hx Renal Disorder: No - Endocrine/Metabolic Hx Endocrine Disorders: No - Hematological/Oncological Hx Blood Disorders: No - Integumentary Hx Dermatological Disorder: No - Musculoskeletal/Rheumatological Hx Musculoskeletal Disorders: No Hx Falls: Yes - Gastrointestinal Hx Gastrointestinal Disorders: Yes Hx Gastroesophageal Reflux: Yes Other/Comment: Colitis,GASTRITIS - Genitourinary/Gynecological Hx Genitourinary Disorders: No - Psychiatric Hx Psychophysiologic Disorder: Yes Hx Anxiety: Yes Hx Depression: Yes Hx Substance Use: Yes Other/Comment: substance and alcohol abuse - Past Surgical History Past Surgical History: Non-Contributing - Surgical History Hx Musculoskeletal Surgery: Yes (R foot sx with rods/screws placed) Hx Orthopedic Surgery: Yes - Anesthesia Hx Anesthesia: Yes Hx Anesthesia Reactions: No Hx Malignant Hyperthermia: No - Suicidal Assessment Feels Threatened In Home Enviroment: No Family/Social History - Physician Review Nursing Documentation Reviewed: Yes Family/Social History: No Known Family HX Smoking Status: Current Some Days Smoker Hx Alcohol Use: Yes (DRINKS VODKA DAILY,LAST DRANK YESTERDAY) Frequency of alcohol use: Daily Hx Substance Use: Yes Substance used: marijuana & cocaine Hx Substance Use Treatment: No Allergies/Home Meds Allergies/Adverse Reactions: Allergies No Known Allergies Allergy (Verified 11/11/18 23:53) Review of Systems - Physician Review All systems were reviewed & negative as marked: Yes - Review of Systems Constitutional: absent: Fevers Respiratory: absent: SOB, Cough Cardiovascular: Chest Pain Gastrointestinal: Abdominal Pain, Nausea, Vomiting Musculoskeletal: absent: Back Pain, Neck Pain Neurological: absent: Headache, Dizziness Physical Exam - Physical Exam Narrative Physical Exam (Text): 12/02/18 07:55 Gen: NAD, cooperative, well appearing, non-toxic. Head: NCAT. EYES: PERRL, EOMI, conjunctiva clear, MOUTH: moist MM, posterior pharynx without erythema or exudate, uvula midline. CV: (+) S1S2, RRR, no M/G/R LUNGS: CTA B/L, No W/R/R, good air movement Abd: Epigastric tenderness, soft, NTTP, no guarding, rebound or rigidity. Neuro: AAO x 3, GCS 15, CN 2-12 intact, motor and sensory grossly intact, 5/5 muscle strength B/L UE's and LE's. ext: no cyanosis or edema Vital Signs Reviewed: Yes Vital Signs Temp Pulse Resp BP Pulse Ox 12/02/18 07:28 98.2 F 85 18 141/92 H 96 Temperature: Afebrile Blood Pressure: Hypertensive Pulse: Regular Respiratory Rate: Normal Appearance: Positive for: Well-Appearing, Non-Toxic, Comfortable Pain Distress: None Mental Status: Positive for: Alert and Oriented X 3 Medical Decision Making ED Course and Treatment: 12/02/18 07:55 Impression: 43 year old male who presents to the emergency department complaining of epigastric and chest pain. Plan: -- EKG -- Chest X-ray -- Donntatal elixir -- Lidocaine -- Maalox -- Pepcid -- Reassess and disposition Prior Visits: Notes and results from previous visits were reviewed. Progress Notes: 12/02/18 09:04 Patient has not been seen vomiting in the emergency department evn prior to administering medication. Patient is reassessed and states that he feels better. 12/02/18 09:06 Patient states feeling better and would like to go home. Patient is very well appearing and non-toxic. Vital signs are stable. I discussed the results of the work-up, diagnosis and treatment. Written discharge instructions were provided to patient. Additional verbal instructions were given and discussed with patient. We discussed the importance of follow up with PCP/consultants. I also reiterated reasons to immediately return to the ER including: worsening in current symptoms and/or new, continued, or concerning symptoms. Pt understood and agreed. 12/02/18 09:13 - RAD Interpretation Narrative RAD Interpretations (Text): 12/02/18 08:40 Chest X-ray reviewed by radiologist, shows: IMPRESSION: No active disease. Radiology Orders: 12/02/18 07:51 CXR [CHEST PORTABLE] [RAD] Stat Optical Engineer: Radiologist - EKG Interpretation EKG Interpretation (Text): 12/02/18 08:26 EKG reviewed, shows: NSR at 79bpm, with normal intervals, normal axis, with LVH. No changes from previous EKG done on 11/19/18. Interpreted by ED Physician: Yes Type: 12 lead EKG - Medication Orders Current Medication Orders: Al Hydrox/Mg Hydrox/Simethicone (Maalox Plus 30 Ml) 30 ml PO STAT STA Stop: 12/02/18 07:50 Belladonna/Phenobarbital ( Elixir) 5 ml PO STAT STA Stop: 12/02/18 07:51 Famotidine (Pepcid) 20 mg PO STAT STA Stop: 12/02/18 07:51 Lidocaine HCl (Lidocaine 2% Viscous) 10 ml MM STAT STA Stop: 12/02/18 07:50 - Scribe Statement The provider has reviewed the documentation as recorded by the Scribtylor Hoyos Provider Scribe Attestation: All medical record entries made by the Scribe were at my direction and personally dictated by me. I have reviewed the chart and agree that the record accurately reflects my personal performance of the history, physical exam, medical decision making, and the department course for this patient. I have also personally directed, reviewed, and agree with the discharge instructions and disposition. Disposition/Present on Arrival - Present on Arrival Any Indicators Present on Arrival: No History of DVT/PE: No History of Uncontrolled Diabetes: No Urinary Catheter: No History of Decub. Ulcer: No History Surgical Site Infection Following: None - Disposition Have Diagnosis and Disposition been Completed?: Yes Diagnosis: Alcohol abuse, Vomiting Disposition: HOME/ ROUTINE Disposition Time: 09:06 Patient Plan: Discharge Condition: IMPROVED Discharge Instructions (ExitCare): Alcohol Use - When Is Drinking a Problem?, Nausea and Vomiting, Adult (DC), Alcohol Abuse and Alcoholism (DC) Referrals: Griselda Heard MD [Family Provider] - Follow up with primary Forms: [employer] (Croatian)
--- NOTE | 2018-12-02 08:24 | RAD ---
Date of service: 12/02/2018 HISTORY: vomiting COMPARISON: 11/19/2018 FINDINGS: LUNGS: No active pulmonary disease. PLEURA: No significant pleural effusion identified, no pneumothorax apparent. CARDIOVASCULAR: No aortic atherosclerotic calcification present. Normal cardiac size. No pulmonary vascular congestion. OSSEOUS STRUCTURES: No significant abnormalities. VISUALIZED UPPER ABDOMEN: Normal. OTHER FINDINGS: None. IMPRESSION: No active disease.
[2018-12-02 09:24] VITALS: BP 144/89; PULSE 78; RESP 20; O2SAT 99
--- NOTE | 2018-12-02 12:09 | CARD ---
APPROVED REPORT Date of service: 12/02/2018 EKG Measurement Heart [id number] <Conclusion> Normal sinus rhythm Voltage criteria for left ventricular hypertrophy Abnormal ECG
--- NOTE | 2018-12-03 19:23 | CARD ---
APPROVED REPORT Date of service: 12/02/2018 EKG Measurement Heart [id number] <Conclusion> Normal sinus rhythm Possible Left atrial enlargement Left ventricular hypertrophy Abnormal ECG
== END 2018-12-02 10:07 | disposition home or self-care (01) ==
LOC: ED 07:11
DX: F10.10 Alcohol abuse, uncomplicated (principal); R11.2 Nausea with vomiting, unspecified; I10 Essential (primary) hypertension

== ENCOUNTER 2018-12-02 14:20 | Emergency (ER) | payer MEDICAID ==
[2018-12-02 14:20] VITALS: BMI 21.4
[2018-12-02 15:11] VITALS: BP 143/91; PULSE 89; RESP 18; TEMP 98.7; O2SAT 99
== END 2018-12-02 18:35 | disposition left against medical advice (07) ==
LOC: ED 14:20
DX: Z02.89 Encounter for other administrative examinations (principal); R11.10 Vomiting, unspecified

== ENCOUNTER 2018-12-11 08:59 | Observation (INO) | payer MEDICAID ==
[2018-12-11 09:14] VITALS: BMI 21.0
[2018-12-11 09:47] LABS: BASO # 0.02 K/mm3 (0.0-2.0); BASO % 0.5 % (0.0-3.0); HEMOGLOBIN 12.2 g/dL (14.0-18.0); LYMPH % 22.7 % (22.0-35.0); MEAN CELL VOLUME 91.2 fl (80.0-105.0); MEAN CORPUSCULAR HEMOGLOBIN 29.7 pg (25.0-35.0); MEAN CORPUSCULAR HGB CONC 32.5 g/dl (31.0-37.0); MONO # 0.2 (0.1-0.6); MONO % 4.7 % (1.0-6.0); RBC 4.11 10^6/uL (3.5-6.1); RED CELL DISTRIBUTION WIDTH 13.9 % (11.5-14.5); WHITE BLOOD COUNT 4.3 10^3/uL (4.5-11.0)
[2018-12-11 09:58] LABS: INR 0.97; PARTIAL THROMBOPLASTIN TIME 28.6 Seconds (26.9-38.3)
[2018-12-11 10:09] LABS: TROPONIN I < 0.01 ng/mL
[2018-12-11 10:11] LABS: ALB/GLOB RATIO 1.5 (1.1-1.8); ALBUMIN 5.1 g/dL (3.0-4.8); ALT/SGPT 41 U/L (7-56); AST/SGOT 75 U/L (17-59); BLOOD UREA NITROGEN 18 mg/dL (7-21); CALCIUM 9.5 mg/dL (8.4-10.5); GFR NON-AFRICAN AMERICAN > 60
[2018-12-11] MEDS ORDERED: Atrop/Hyosc/Scopal/PB Elixir (120 ml) PO STA (10:14)
[2018-12-11] MEDS ORDERED: Alum-Mag Hydrox-Simethicone Susp (30 mL) PO STA (10:14)
[2018-12-11 10:21] LABS: CK-MB 2.2 ng/mL (0.0-3.6)
[2018-12-11 10:45] LABS: PH,URINE 5.5 (4.7-8.0); URINE BILIRUBIN NEGATIVE (NEGATIVE); URINE BLOOD NEGATIVE (NEGATIVE); URINE GLUCOSE (UA) 250 mg/dL (NEGATIVE); URINE LEUKOCYTE ESTERASE NEGATIVE Leu/uL (NEGATIVE); URINE PROTEIN NEGATIVE mg/dL (<30 mg/dL); URINE UROBILINOGEN 0.2 E.U./dL (<1 E.U./dL)
[2018-12-11 11:02] LABS: URINE APPEARANCE CLEAR (CLEAR); URINE COLOR YELLOW (YELLOW)
[2018-12-11 11:08] LABS: BARBITURATES, UR NEGATIVE (NEGATIVE)
[2018-12-11 11:16] LABS: BENZODIAZEPINES, UR NEGATIVE (NEGATIVE); OPIATES, UR NEGATIVE (NEGATIVE); PHENCYCLIDINE, UR NEGATIVE (NEGATIVE)
--- NOTE | 2018-12-11 11:35 | ED PDOC ---
Arrival/HPI - General Chief Complaint: Chest Pain Time Seen by Provider: 12/11/18 09:21 Historian: Patient - History of Present Illness Narrative History of Present Illness (Text): 12/11/18 11:20 43yo male with pmhx of colitis, alcohol abuse, drug abuse, hypertension, gastritis, anxiety who was bib EMS with complaint of chest pain, SOB, nausea, vomiting and epigastric pain. Describes pain as burning. States he did not take any of his medications today. Denies diaphoresis, LE edema, calf pain, fever, chills, hemoptysis, dizziness, any other complaint. states the last time he drank alcohol was last night and used cocaine few weeks last. Past Medical History - Provider Review Nursing Documentation Reviewed: Yes - Past History Past History: No Previous - Infectious Disease Hx of Infectious Diseases: None - Tetanus Immunization Tetanus Immunization: Unknown - Past Medical History Past Medical History: No Previous - Cardiac Hx Cardiac Disorders: Yes Hx Hypertension: Yes - Pulmonary Hx Respiratory Disorders: Yes (SMOKES 5 CIG A DAY) Other/Comment: light smoker - Neurological Hx Neurological Disorder: Yes Hx Dizziness: Yes Other/Comment: neuropathy - HEENT Hx HEENT Disorder: No - Renal Hx Renal Disorder: No - Endocrine/Metabolic Hx Endocrine Disorders: No - Hematological/Oncological Hx Blood Disorders: No - Integumentary Hx Dermatological Disorder: No - Musculoskeletal/Rheumatological Hx Musculoskeletal Disorders: No Hx Falls: Yes - Gastrointestinal Hx Gastrointestinal Disorders: Yes Hx Gastroesophageal Reflux: Yes Other/Comment: Colitis,GASTRITIS - Genitourinary/Gynecological Hx Genitourinary Disorders: No - Psychiatric Hx Psychophysiologic Disorder: Yes Hx Anxiety: Yes Hx Depression: Yes Hx Substance Use: Yes Other/Comment: substance and alcohol abuse - Past Surgical History Past Surgical History: Non-Contributing - Surgical History Hx Musculoskeletal Surgery: Yes (R foot sx with rods/screws placed) Hx Orthopedic Surgery: Yes - Anesthesia Hx Anesthesia: Yes Hx Anesthesia Reactions: No Hx Malignant Hyperthermia: No - Suicidal Assessment Feels Threatened In Home Enviroment: No Family/Social History - Physician Review Nursing Documentation Reviewed: Yes Family/Social History: Unknown Family HX Smoking Status: Current Some Days Smoker Hx Alcohol Use: Yes (DRINKS VODKA DAILY,LAST DRANK YESTERDAY) Hx Substance Use: Yes Substance used: marijuana & cocaine Hx Substance Use Treatment: No Allergies/Home Meds Allergies/Adverse Reactions: Allergies No Known Allergies Allergy (Verified 11/11/18 23:53) Review of Systems - Physician Review All systems were reviewed & negative as marked: Yes - Review of Systems Constitutional: Normal Eyes: Normal ENT: Normal Respiratory: Normal Cardiovascular: Chest Pain. absent: Palpitations, Edema, Calf Pain Gastrointestinal: Abdominal Pain, Nausea, Vomiting. absent: Constipation, Diarrhea, Hematemesis Genitourinary Male: Normal Musculoskeletal: Normal Skin: Normal Neurological: Normal Endocrine: Normal Hemo/Lymphatic: Normal Psychiatric: Normal Physical Exam Vital Signs Reviewed: Yes Vital Signs Temp Pulse Resp BP Pulse Ox 12/11/18 09:12 107 H 20 135/92 H 98 12/11/18 09:09 98.5 F 104 H 18 135/92 H 99 Temperature: Afebrile Blood Pressure: Normal Pulse: Tachycardic Respiratory Rate: Normal Appearance: Positive for: Well-Appearing, Non-Toxic, Comfortable, Other (Tremor of upper extremity noted) Pain Distress: None Mental Status: Positive for: Alert and Oriented X 3 - Systems Exam Head: Present: Atraumatic, Normocephalic Pupils: Present: PERRL Extroacular Muscles: Present: EOMI Conjunctiva: Present: Normal Mouth: Present: Moist Mucous Membranes Neck: Present: Normal Range of Motion Respiratory/Chest: Present: Clear to Auscultation, Good Air Exchange. No: Respiratory Distress, Accessory Muscle Use, Wheezes, Decreased Breath Sounds, Rales, Retracting, Rhonchi, Tachypneic Cardiovascular: Present: Regular Rate and Rhythm, Normal S1, S2. No: Murmurs Abdomen: Present: Tenderness (Epgiastric), Normal Bowel Sounds, Other (Soft). No: Distention, Peritoneal Signs, Rebound, Guarding, McBurney's Point Tender, Rovsing's Sign Present Back: Present: Normal Inspection Upper Extremity: Present: Normal Inspection. No: Cyanosis, Edema Lower Extremity: Present: Normal Inspection. No: Edema Neurological: Present: GCS=15, CN II-XII Intact, Speech Normal Skin: Present: Warm, Dry, Normal Color. No: Rashes Psychiatric: Present: Alert, Oriented x 3, Normal Insight, Normal Concentration Medical Decision Making ED Course and Treatment: 12/11/18 20:02 43yo male bib EMS for stated history. He was tachy and tremulous on his upper extremity. He continued to complain of chest pain in ED after medications Labs chest xray EKG Banana bag, Ativan EKG sinus tachy @ 104bpm with 1st degree AV block with PVC. N-stemi. This is different from his previous EKG Labs was reviewed and first CE was negative. Pt was admitted for chest pain and alcohol withdrawal Case was DW Dr. Melendez who accepted pt for admission Result and plan was DW the pt and he agreed. - Lab Interpretations Lab Results: PT 11.0 SECONDS (9.4-12.5) 12/11/18 09:30 INR 0.97 12/11/18 09:30 APTT 28.6 Seconds (26.9-38.3) 12/11/18 09:30 Troponin I < 0.01 ng/mL 12/11/18 09:30 Total Bilirubin 0.5 mg/dL (0.2-1.3) 12/11/18 09:30 AST 75 U/L (17-59) H 12/11/18 09:30 ALT 41 U/L (7-56) 12/11/18 09:30 Alkaline Phosphatase 65 U/L (38-126) 12/11/18 09:30 Total Protein 8.4 g/dL (5.8-8.3) H 12/11/18 09:30 Albumin 5.1 g/dL (3.0-4.8) H 12/11/18 09:30 Globulin 3.3 gm/dL 12/11/18 09:30 Albumin/Globulin Ratio 1.5 (1.1-1.8) 12/11/18 09:30 Urine Color Yellow (YELLOW) 12/11/18 10:35 Urine Appearance Clear (CLEAR) 12/11/18 10:35 Urine pH 5.5 (4.7-8.0) 12/11/18 10:35 Ur Specific Atkinson >= 1.030 (1.005-1.035) 12/11/18 10:35 Urine Protein Negative mg/dL (<30 mg/dL) 12/11/18 10:35 Urine Glucose (UA) 250 mg/dL (NEGATIVE) H 12/11/18 10:35 Urine Ketones 40 mg/dL (NEGATIVE) H 12/11/18 10:35 Urine Blood Negative (NEGATIVE) 12/11/18 10:35 Urine Nitrate Negative (NEGATIVE) 12/11/18 10:35 Urine Bilirubin Negative (NEGATIVE) 12/11/18 10:35 Urine Urobilinogen 0.2 E.U./dL (<1 E.U./dL) 12/11/18 10:35 Ur Leukocyte Esterase Negative Georges/uL (NEGATIVE) 12/11/18 10:35 - RAD Interpretation Radiology Orders: 12/11/18 09:23 CHEST PORTABLE [RAD] Stat - Medication Orders Current Medication Orders: Discontinued Medications Al Hydrox/Mg Hydrox/Simethicone (Maalox Plus 30 Ml) 30 ml PO STAT STA Stop: 12/11/18 10:15 Last Admin: 12/11/18 10:43 Dose: 30 ml Aspirin (Aspirin) 325 mg PO STAT STA Stop: 12/11/18 11:15 Belladonna/Phenobarbital ( Elixir) 5 ml PO STAT STA Stop: 12/11/18 10:15 Last Admin: 12/11/18 10:42 Dose: 5 ml Famotidine (Pepcid) 20 mg IVP STAT STA Stop: 12/11/18 09:25 Last Admin: 12/11/18 09:43 Dose: 20 mg IVP Administration Document 12/11/18 09:43 BB (Rec: 12/11/18 09:43 [id number]) Charges for Administration # of IVP Administrations 1 Lidocaine HCl (Lidocaine 2% Viscous) 15 ml PO ONCE STA Stop: 12/11/18 10:15 Last Admin: 12/11/18 10:43 Dose: 15 ml Ondansetron HCl (Zofran Inj) 4 mg IVP STAT STA Stop: 12/11/18 09:25 Last Admin: 12/11/18 09:43 Dose: 4 mg IVP Administration Document 12/11/18 09:43 BB (Rec: 12/11/18 09:43 [id number]) Charges for Administration # of IVP Administrations 1 Disposition/Present on Arrival - Present on Arrival Any Indicators Present on Arrival: No History of DVT/PE: No History of Uncontrolled Diabetes: No Urinary Catheter: No History of Decub. Ulcer: No History Surgical Site Infection Following: None - Disposition Have Diagnosis and Disposition been Completed?: Yes Diagnosis: Alcohol withdrawal, Chest pain, Abdominal pain Disposition: HOSPITALIZED Disposition Time: 12:00 Patient Plan: Admission Patient Problems: Current Active Problems Problem Status Onset Alcohol withdrawal Acute Chest pain Acute Condition: FAIR
[2018-12-11] MEDS ORDERED: Multivitamin (MVI) 10 ML, Thiamine 100 MG, Folic Acid 1 MG in Sodium Chloride 0.9% 1,00... IV ONE (12:10)
--- NOTE | 2018-12-11 12:21 | RAD ---
Date of service: 12/11/2018 HISTORY: chest pain COMPARISON: 11/01/2018 FINDINGS: LUNGS: No active pulmonary disease. PLEURA: No significant pleural effusion identified, no pneumothorax apparent. CARDIOVASCULAR: No aortic atherosclerotic calcification present. Normal cardiac size. No pulmonary vascular congestion. OSSEOUS STRUCTURES: No significant abnormalities. VISUALIZED UPPER ABDOMEN: Normal. OTHER FINDINGS: None. IMPRESSION: No active disease.
[2018-12-11] MEDS ORDERED: Magnesium Oxide 400 mg Tab UD PO ONE (13:41)
--- NOTE | 2018-12-11 13:49 | CP.PCM.HP ---
<Lacho Farias - Last Filed: 12/11/18 17:07> History of Present Illness - History of Present Illness History of Present Illness: Lacho Farias PGY2 IM H&P Note for Dr. Melendez cc: chest/epigastric pain, +n/v Mr. Craig is a 43 year old male with a PMH of HTN, colitis (due to polysubstance abuse), alcohol abuse, cocaine abuse, anxiety who was bib EMS with complaint of chest pain, SOB, nausea, vomiting x3 and diffuse abdominal pain that started this morning. The pain is rated 10/10, localized mainly to his epigastric region, and has no relieving factors. Patient states he did not take any of his medications today. Patient admits to regular alcohol abuse including 2-half pints of vodka last night, as he does regularly. Patient also admits to m onthly use of cocaine with the most recent a few weeks ago. Denies diaphoresis, LE edema, calf pain, fever, chills, hemoptysis, dizziness, any other complaint. 12-pt ROS was reviewed and is otherwise unremarkable. PMHx: colitis, gastritis, hypertension, anxiety, alcohol abuse, drug abuse, marijuana abuse PSHx: Right ankle ORIF All: NKDA Meds: Amlodipine, Lipitor, Aspirin, Paxil Social: Lives with sister. Admits to sniffing Cocaine, Regular Marijuana, Daily alcohol abuse, & 30 year half-pack smoking Family: - mom: of Alzheimer & stroke - dad: of MVA PMD: Dr. Heard ([facility]) [facility]: [facility] Present on Admission - Present on Admission Any Indicators Present on Admission: No Review of Systems - Review of Systems All systems: reviewed and no additional remarkable complaints except (as per HPI) Past Patient History - Infectious Disease Hx of Infectious Diseases: None - Tetanus Immunizations Tetanus Immunization: Unknown - Past Medical History & Family History Past Medical History?: Yes - Past Social History Smoking Status: Current Some Days Smoker Alcohol: None Drugs: Denies Home Situation {Lives}: With Family - CARDIAC Hx Cardiac Disorders: Yes Hx Hypertension: Yes - PULMONARY Hx Respiratory Disorders: Yes (SMOKES 5 CIG A DAY) Other/Comment: light smoker - NEUROLOGICAL Hx Neurological Disorder: Yes Hx Dizziness: Yes Other/Comment: neuropathy - HEENT Hx HEENT Problems: No - RENAL Hx Chronic Kidney Disease: No - ENDOCRINE/METABOLIC Hx Endocrine Disorders: No - HEMATOLOGICAL/ONCOLOGICAL Hx Blood Disorders: No - INTEGUMENTARY Hx Dermatological Problems: No - MUSCULOSKELETAL/RHEUMATOLOGICAL Hx Musculoskeletal Disorders: No Hx Falls: Yes - GASTROINTESTINAL Hx Gastrointestinal Disorders: Yes Hx Gastroesophageal Reflux: Yes Other/Comment: Colitis,GASTRITIS - GENITOURINARY/GYNECOLOGICAL Hx Genitourinary Disorders: No - PSYCHIATRIC Hx Psychophysiologic Disorder: Yes Hx Anxiety: Yes Hx Depression: Yes Hx Substance Use: Yes Other/Comment: substance and alcohol abuse - SURGICAL HISTORY Hx Musculoskeletal Surgery: Yes (R foot sx with rods/screws placed) Hx Orthopedic Surgery: Yes - ANESTHESIA Hx Anesthesia: Yes Hx Anesthesia Reactions: No Hx Malignant Hyperthermia: No Meds Allergies/Adverse Reactions: Allergies Allergy/AdvReac Type Severity Reaction Status Date / Time No Known Allergies Allergy Verified 11/11/18 23:53 Physical Exam - Constitutional Appears: Well, Non-toxic, No Acute Distress - Head Exam Head Exam: ATRAUMATIC, NORMAL INSPECTION, NORMOCEPHALIC - Eye Exam Eye Exam: EOMI, Normal appearance, PERRL Pupil Exam: NORMAL ACCOMODATION, PERRL - ENT Exam ENT Exam: Mucous Membranes Moist, Normal Exam - Neck Exam Neck exam: Positive for: Normal Inspection - Respiratory Exam Respiratory Exam: Clear to Auscultation Bilateral, NORMAL BREATHING PATTERN. absent: Rales, Rhonchi, Wheezes - Cardiovascular Exam Cardiovascular Exam: REGULAR RHYTHM, RRR, +S1, +S2 - GI/Abdominal Exam GI & Abdominal Exam: Normal Bowel Sounds, Soft. absent: Distended, Tenderness - Rectal Exam Rectal Exam: NORMAL INSPECTION - Extremities Exam Extremities exam: Positive for: normal inspection - Back Exam Back exam: FULL ROM, NORMAL INSPECTION - Neurological Exam Neurological exam: Alert, CN II-XII Intact, Normal Gait, Oriented x3, Reflexes Normal - Psychiatric Exam Psychiatric exam: Normal Affect, Normal Mood - Skin Skin Exam: Dry, Intact, Normal Color, Warm Results - Vital Signs Recent Vital Signs: Last Vital Signs Temp 98.5 F 12/11/18 09:09 Pulse 99 H 12/11/18 13:31 Resp 20 12/11/18 13:31 BP 155/88 H 12/11/18 13:31 Pulse Ox 100 12/11/18 13:31 - Labs Result Diagrams: 12/11/18 09:30 12/11/18 09:30 Labs: Laboratory Results - last 24 hr 12/11/18 12/11/18 12/11/18 09:30 09:30 09:30 WBC 4.3 L D RBC 4.11 Hgb 12.2 L Hct 37.5 L MCV 91.2 MCH 29.7 MCHC 32.5 RDW 13.9 Plt Count 214 MPV 11.0 Neut % (Auto) 72.1 H Lymph % (Auto) 22.7 Sterling % (Auto) 4.7 Eos % (Auto) 0.0 L Baso % (Auto) 0.5 Lymph # (Auto) 1.0 L Sterling # (Auto) 0.2 Eos # (Auto) 0.0 Baso # (Auto) 0.02 Absolute Neuts (auto) 3.08 PT 11.0 INR 0.97 APTT 28.6 Sodium 138 Potassium 3.4 L Chloride 100 Carbon Dioxide 19 L Anion Gap 22 H BUN 18 Creatinine 0.9 Est GFR ( Amer) > 60 Est GFR (Non-Af Amer) > 60 Random Glucose 154 H Calcium 9.5 Magnesium 1.7 Total Bilirubin 0.5 AST 75 H ALT 41 Alkaline Phosphatase 65 Lactate Dehydrogenase 530 Total Creatine Kinase 334 H CK-MB (CK-2) 2.2 CK-MB (CK-2) % Cancelled Troponin I < 0.01 Total Protein 8.4 H Albumin 5.1 H Globulin 3.3 Albumin/Globulin Ratio 1.5 Urine Color Urine Appearance Urine pH Ur Specific Sully Urine Protein Urine Glucose (UA) Urine Ketones Urine Blood Urine Nitrate Urine Bilirubin Urine Urobilinogen Ur Leukocyte Esterase Urine Opiates Screen Urine Methadone Screen Ur Barbiturates Screen Ur Phencyclidine Scrn Ur Amphetamines Screen U Benzodiazepines Scrn U Oth Cocaine Metabols U Cannabinoids Screen Alcohol, Quantitative 12/11/18 12/11/18 12/11/18 09:30 10:35 10:35 WBC RBC Hgb Hct MCV MCH MCHC RDW Plt Count MPV Neut % (Auto) Lymph % (Auto) Sterling % (Auto) Eos % (Auto) Baso % (Auto) Lymph # (Auto) Sterling # (Auto) Eos # (Auto) Baso # (Auto) Absolute Neuts (auto) PT INR APTT Sodium Potassium Chloride Carbon Dioxide Anion Gap BUN Creatinine Est GFR ( Amer) Est GFR (Non-Af Amer) Random Glucose Calcium Magnesium Total Bilirubin AST ALT Alkaline Phosphatase Lactate Dehydrogenase Total Creatine Kinase CK-MB (CK-2) CK-MB (CK-2) % Troponin I Total Protein Albumin Globulin Albumin/Globulin Ratio Urine Color Yellow Urine Appearance Clear Urine pH 5.5 Ur Specific Sully >= 1.030 Urine Protein Negative Urine Glucose (UA) 250 H Urine Ketones 40 H Urine Blood Negative Urine Nitrate Negative Urine Bilirubin Negative Urine Urobilinogen 0.2 Ur Leukocyte Esterase Negative Urine Opiates Screen Negative Urine Methadone Screen Negative Ur Barbiturates Screen Negative Ur Phencyclidine Scrn Negative Ur Amphetamines Screen Negative U Benzodiazepines Scrn Negative U Oth Cocaine Metabols Negative U Cannabinoids Screen Negative Alcohol, Quantitative 40 H Assessment & Plan - Assessment and Plan (Free Text) Assessment: 43 year old male with a PMH of HTN, colitis (due to polysubsta nce abuse), alcohol abuse, cocaine abuse, anxiety who was bib EMS with complaint of chest pain, SOB, nausea, vomiting x3 and diffuse abdominal pain that started this morning. Atypical Chest Pain: -will need to r/o ACS given his risk factors -cont ASA -CXR reviewed -ECG reviewed -admit to telemetry unit for monitoring -troponin q6 Alcohol dependence w/ hx of withdrawal: -CIWA protocol -Fall, seizure precautions -Ativan 2mg-Q6H SCD & 1mg-Q3 PRN -Banana Bag -Potassium and Magnesium repletion -Thiamine, MV, Folate supplementation Gastritis: -Start Zofran 4mg Q4H PRN -PTX & Carafate 1gm PO -IV fluid given in ED Hx of Hypertension: -Continue Amlodipine 10mg QD -Continue to monitor Hx of Hyperlipidemia: -Continue Lipitor 10mg DIN -Continue to monitor Hx of Anxiety: -Continue Paxil 10mg QD Tobacco, Marijuana & Cocaine Abuse: -Educate patient on drug cessation PPX: -GI: Protonix 40mg -DVT: SCDs CLD, advance as tolerated Patient was seen, examined and discussed with Dr. Melendez <Addie Melendez - Last Filed: 12/11/18 19:16> Results - Vital Signs Recent Vital Signs: Last Vital Signs Temp 98.5 F 12/11/18 09:09 Pulse 99 H 12/11/18 13:31 Resp 20 12/11/18 13:31 BP 138/87 12/11/18 15:12 Pulse Ox 100 12/11/18 13:31 - Labs Result Diagrams: 12/11/18 09:30 12/11/18 09:30 Labs: Laboratory Results - last 24 hr 12/11/18 12/11/18 12/11/18 09:30 09:30 09:30 WBC 4.3 L D RBC 4.11 Hgb 12.2 L Hct 37.5 L MCV 91.2 MCH 29.7 MCHC 32.5 RDW 13.9 Plt Count 214 MPV 11.0 Neut % (Auto) 72.1 H Lymph % (Auto) 22.7 Sterling % (Auto) 4.7 Eos % (Auto) 0.0 L Baso % (Auto) 0.5 Lymph # (Auto) 1.0 L Sterling # (Auto) 0.2 Eos # (Auto) 0.0 Baso # (Auto) 0.02 Absolute Neuts (auto) 3.08 PT 11.0 INR 0.97 APTT 28.6 Sodium 138 Potassium 3.4 L Chloride 100 Carbon Dioxide 19 L Anion Gap 22 H BUN 18 Creatinine 0.9 Est GFR ( Amer) > 60 Est GFR (Non-Af Amer) > 60 Random Glucose 154 H Calcium 9.5 Magnesium 1.7 Total Bilirubin 0.5 AST 75 H ALT 41 Alkaline Phosphatase 65 Lactate Dehydrogenase 530 Total Creatine Kinase 334 H CK-MB (CK-2) 2.2 CK-MB (CK-2) % Cancelled Troponin I < 0.01 Total Protein 8.4 H Albumin 5.1 H Globulin 3.3 Albumin/Globulin Ratio 1.5 Urine Color Urine Appearance Urine pH Ur Specific Sully Urine Protein Urine Glucose (UA) Urine Ketones Urine Blood Urine Nitrate Urine Bilirubin Urine Urobilinogen Ur Leukocyte Esterase Urine Opiates Screen Urine Methadone Screen Ur Barbiturates Screen Ur Phencyclidine Scrn Ur Amphetamines Screen U Benzodiazepines Scrn U Oth Cocaine Metabols U Cannabinoids Screen Alcohol, Quantitative 12/11/18 12/11/18 12/11/18 09:30 10:35 10:35 WBC RBC Hgb Hct MCV MCH MCHC RDW Plt Count MPV Neut % (Auto) Lymph % (Auto) Sterling % (Auto) Eos % (Auto) Baso % (Auto) Lymph # (Auto) Sterling # (Auto) Eos # (Auto) Baso # (Auto) Absolute Neuts (auto) PT INR APTT Sodium Potassium Chloride Carbon Dioxide Anion Gap BUN Creatinine Est GFR ( Amer) Est GFR (Non-Af Amer) Random Glucose Calcium Magnesium Total Bilirubin AST ALT Alkaline Phosphatase Lactate Dehydrogenase Total Creatine Kinase CK-MB (CK-2) CK-MB (CK-2) % Troponin I Total Protein Albumin Globulin Albumin/Globulin Ratio Urine Color Yellow Urine Appearance Clear Urine pH 5.5 Ur Specific Sully >= 1.030 Urine Protein Negative Urine Glucose (UA) 250 H Urine Ketones 40 H Urine Blood Negative Urine Nitrate Negative Urine Bilirubin Negative Urine Urobilinogen 0.2 Ur Leukocyte Esterase Negative Urine Opiates Screen Negative Urine Methadone Screen Negative Ur Barbiturates Screen Negative Ur Phencyclidine Scrn Negative Ur Amphetamines Screen Negative U Benzodiazepines Scrn Negative U Oth Cocaine Metabols Negative U Cannabinoids Screen Negative Alcohol, Quantitative 40 H 12/11/18 15:30 WBC RBC Hgb Hct MCV MCH MCHC RDW Plt Count MPV Neut % (Auto) Lymph % (Auto) Sterling % (Auto) Eos % (Auto) Baso % (Auto) Lymph # (Auto) Sterling # (Auto) Eos # (Auto) Baso # (Auto) Absolute Neuts (auto) PT INR APTT Sodium Potassium Chloride Carbon Dioxide Anion Gap BUN Creatinine Est GFR ( Amer) Est GFR (Non-Af Amer) Random Glucose Calcium Magnesium Total Bilirubin AST ALT Alkaline Phosphatase Lactate Dehydrogenase Total Creatine Kinase CK-MB (CK-2) CK-MB (CK-2) % Troponin I < 0.01 Total Protein Albumin Globulin Albumin/Globulin Ratio Urine Color Urine Appearance Urine pH Ur Specific Sully Urine Protein Urine Glucose (UA) Urine Ketones Urine Blood Urine Nitrate Urine Bilirubin Urine Urobilinogen Ur Leukocyte Esterase Urine Opiates Screen Urine Methadone Screen Ur Barbiturates Screen Ur Phencyclidine Scrn Ur Amphetamines Screen U Benzodiazepines Scrn U Oth Cocaine Metabols U Cannabinoids Screen Alcohol, Quantitative Attending/Attestation - Attestation I have personally seen and examined this patient.: Yes I have fully participated in the care of the patient.: Yes I have reviewed all pertinent clinical information: Yes Notes (Text): 12/11/18 19:08 43 year old male with past medical history of hypertension, colitis, gastritis, cocaine abuse and chronic ETOH abuse who presents with complaint of chest pain, abdominal pain, nausea, vomiting and alcohol withdrawal. Will admit to obtain serial cardiac enzymes to rule out ACS. UTox was negative. Alcohol level was elevated. Continue with banana bag and ativan marlene/prn for withdrawal symptoms. He was counselled on alcohol abstinence. Will replete and repeat lytes. 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 Continue with liquid diet as tolerated and protonix. Addie Melendez MD
[2018-12-11] MEDS ORDERED: Thiamine 100 mg/ml Inj ONE (14:24)
[2018-12-11] MEDS: Pantoprazole 40 mg EC Tab PO SCH (15:03)
[2018-12-11] MEDS: Sodium Chloride 0.9% 1,000 ML IV SCH ×2 (15:03→22:44)
--- NOTE | 2018-12-11 15:14 | CARD ---
APPROVED REPORT Date of service: 12/11/2018 EKG Measurement Heart [id number] <Conclusion> Sinus tachycardia with 1st degree AV block with occasional premature ventricular complexes Voltage criteria for left ventricular hypertrophy Nonspecific T wave abnormality Abnormal ECG
[2018-12-11] MEDS: Potassium Chloride 20 mEq ER Tab PO SCH (17:52)
[2018-12-11] MEDS ORDERED: Influenza Vaccine 60 mcg/0.5 mL SYR (4YR UP) IM ONE (22:47)
[2018-12-11] MEDS ORDERED: Pneumococcal 23-Valent Vaccine IM ONE (22:47)
[2018-12-12 06:32] LABS: HEMOGLOBIN 11.8 g/dL (14.0-18.0); MEAN CELL VOLUME 89.6 fl (80.0-105.0); MEAN CORPUSCULAR HEMOGLOBIN 29.3 pg (25.0-35.0); MEAN CORPUSCULAR HGB CONC 32.7 g/dl (31.0-37.0); MEAN PLATELET VOLUME 10.9 fl (7.0-11.0); RBC 4.03 10^6/uL (3.5-6.1); RED CELL DISTRIBUTION WIDTH 13.5 % (11.5-14.5)
[2018-12-12 07:10] LABS: ALB/GLOB RATIO 1.4 (1.1-1.8); ALBUMIN 4.2 g/dL (3.0-4.8); ALT/SGPT 38 U/L (7-56); AST/SGOT 66 U/L (17-59); BLOOD UREA NITROGEN 7 mg/dL (7-21); CALCIUM 8.7 mg/dL (8.4-10.5); GFR NON-AFRICAN AMERICAN > 60
[2018-12-12] MEDS ORDERED: Potassium Chloride 20 mEq ER Tab PO STA (07:44)
[2018-12-12] MEDS: Multivitamin Therapeutic Tab PO SCH (08:08)
[2018-12-12] MEDS: Pantoprazole 40 mg EC Tab PO SCH (09:35)
[2018-12-12] MEDS: Potassium Chloride 20 mEq ER Tab PO SCH (11:37)
--- NOTE | 2018-12-12 12:53 | CP.PCM.PN ---
<Radha Garner - Last Filed: 12/12/18 12:48> Subjective - Date & Time of Evaluation Date of Evaluation: 12/12/18 Time of Evaluation: 12:48 - Subjective Subjective: Radha Garner, PGY-1, Internal Medicine Progress Note for Dr. Melendez Patient was seen and evaluated at bedside. Patient had no acute overnight events. Last CIWA was 4 prior to ativan administration. Patient was only given scheduled ativan overnight. However, it has been less than 24 hours since last drink. Today, patient reports chest pain but denies left arm pain, jaw pain, nausea, vomiting, diaphoresis. Patient reports abdominal pain and diarrhea but denies nausea, vomiting, constipation, dysuria, hematuria. 12-point ROS was unremarkable except for what was mentioned above. Objective - Vital Signs/Intake and Output Vital Signs (last 24 hours): Temp Pulse Resp BP Pulse Ox 97.7 F 86 19 121/88 99 12/12/18 08:14 12/12/18 10:00 12/12/18 08:14 12/12/18 09:35 12/12/18 08:14 Intake and Output: 12/12/18 12/12/18 06:59 18:59 Intake Total 540 2000 Output Total 800 500 Balance -260 1500 - Medications Medications: Current Medications Amlodipine Besylate (Norvasc) 10 mg PO DAILY [facility] Last Admin: 12/12/18 09:35 Dose: 10 mg Aspirin (Aspirin Chewable) 81 mg PO DAILY [facility] Last Admin: 12/12/18 09:34 Dose: 81 mg Atorvastatin Calcium (Lipitor) 10 mg PO DIN [facility] Last Admin: 12/11/18 17:49 Dose: 10 mg Folic Acid (Folic Acid) 1 mg PO DAILY [facility] Last Admin: 12/12/18 09:35 Dose: 1 mg Sodium Chloride (Sodium Chloride 0.9%) 1,000 mls @ 100 mls/hr IV .Q10H [facility] Last Admin: 12/11/18 22:44 Dose: 100 mls/hr Lorazepam (Ativan) 1 mg IVP Q3 PRN; Protocol PRN Reason: Symptoms of alcohol withdrawl Lorazepam (Ativan) 1 mg IVP Q6H [facility]; Protocol Multivitamins (Thera Tab) 1 tab PO 0800 [facility] Last Admin: 12/12/18 08:08 Dose: 1 tab Ondansetron HCl (Zofran Inj) 4 mg IVP Q4H PRN PRN Reason: Nausea/Vomiting Pantoprazole Sodium (Protonix Ec Tab) 40 mg PO DAILY [facility] Last Admin: 12/12/18 09:35 Dose: 40 mg Paroxetine HCl (Paxil) 10 mg PO DAILY [facility] Last Admin: 12/12/18 09:35 Dose: 10 mg Sucralfate (Carafate Tab) 1 gm PO 0630,1130,1630,2200 [facility] Last Admin: 12/12/18 11:37 Dose: 1 gm Thiamine HCl (Vitamin B1 Tab) 100 mg PO DAILY [facility] Last Admin: 12/12/18 09:35 Dose: 100 mg - Labs Labs: 12/12/18 06:15 12/12/18 06:15 PT 11.0 SECONDS (9.4-12.5) 12/11/18 09:30 INR 0.97 12/11/18 09:30 APTT 28.6 Seconds (26.9-38.3) 12/11/18 09:30 - Constitutional Appears: Well, Non-toxic, No Acute Distress - Head Exam Head Exam: ATRAUMATIC, NORMAL INSPECTION, NORMOCEPHALIC - Eye Exam Eye Exam: EOMI, PERRL - ENT Exam ENT Exam: Mucous Membranes Moist - Respiratory Exam Respiratory Exam: Clear to Ausculation Bilateral, NORMAL BREATHING PATTERN - Cardiovascular Exam Cardiovascular Exam: REGULAR RHYTHM, RRR - GI/Abdominal Exam GI & Abdominal Exam: Soft, Normal Bowel Sounds. absent: Tenderness - Extremities Exam Extremities Exam: Full ROM - Back Exam Back Exam: NORMAL INSPECTION - Neurological Exam Neurological Exam: Alert, Awake, CN II-XII Intact, Oriented x3 Additional comments: no tremors on exam. AAOx3 - Skin Skin Exam: Dry, Intact, Normal Color Assessment and Plan - Assessment and Plan (Free Text) Assessment: 43 year old male with past medical history of hypertension, colitis, polysubstance abuse, alcohol abuse, anxiety presented by EMS with complaint of chest pain, shortness of breath, nausea, vomitingx3, and diffuse abdominal pain that started yesterday. Patient was admitted for ACS rule out. Plan: Atypical Chest Pain r/o ACS -EKG: sinus tachycardia with 1st degree AV block with occasional PVC with HR: 104 -Troponinx3 was negative -Unlikely NSTEMI -Continue with aspirin, lipitor Diarrhea -No current antibiotics -Follow up results of stool culture and C. Dif toxin -No current leukocytosis and does not satisfy SIRS -Likely due to recent alcohol use Hypertension -Continue with norvasc Depression/Anxiety -Continue with paxil Alcohol withdrawal -CIWA 4 this morning but 0 upon evaluation. -Alcohol level: 40 -Continue with IV NS at 100/hr, MVI, thiamine, and folic acid -Reduced to ativan 1 mg Q6 and 1 mg Q3PRN for withdrawal symptoms -Continue zofran 4 mg Q6PRN for nausea GI prophylaxis: protonix 40 mg daily DVT prophylaxis: SCD <Addie Melendez A - Last Filed: 12/12/18 17:49> Objective - Vital Signs/Intake and Output Vital Signs (last 24 hours): Temp Pulse Resp BP Pulse Ox 98.2 F 100 H 20 134/91 H 99 12/12/18 17:17 12/12/18 17:17 12/12/18 17:17 12/12/18 17:17 12/12/18 17:17 Intake and Output: 12/12/18 12/12/18 06:59 18:59 Intake Total 540 2000 Output Total 800 500 Balance -260 1500 - Medications Medications: Current Medications Amlodipine Besylate (Norvasc) 10 mg PO DAILY [facility] Last Admin: 12/12/18 09:35 Dose: 10 mg Aspirin (Aspirin Chewable) 81 mg PO DAILY [facility] Last Admin: 12/12/18 09:34 Dose: 81 mg Atorvastatin Calcium (Lipitor) 10 mg PO DIN [facility] Last Admin: 12/12/18 17:11 Dose: 10 mg Folic Acid (Folic Acid) 1 mg PO DAILY [facility] Last Admin: 12/12/18 09:35 Dose: 1 mg Sodium Chloride (Sodium Chloride 0.9%) 1,000 mls @ 100 mls/hr IV .Q10H [facility] Last Admin: 12/12/18 17:14 Dose: 100 mls/hr Lorazepam (Ativan) 1 mg IVP Q3 PRN; Protocol PRN Reason: Symptoms of alcohol withdrawl Lorazepam (Ativan) 1 mg IVP Q6H [facility]; Protocol Last Admin: 12/12/18 17:11 Dose: 1 mg Multivitamins (Thera Tab) 1 tab PO 0800 [facility] Last Admin: 12/12/18 08:08 Dose: 1 tab Ondansetron HCl (Zofran Inj) 4 mg IVP Q4H PRN PRN Reason: Nausea/Vomiting Pantoprazole Sodium (Protonix Ec Tab) 40 mg PO DAILY [facility] Last Admin: 12/12/18 09:35 Dose: 40 mg Paroxetine HCl (Paxil) 10 mg PO DAILY [facility] Last Admin: 12/12/18 09:35 Dose: 10 mg Sucralfate (Carafate Tab) 1 gm PO 0630,1130,1630,2200 [facility] Last Admin: 12/12/18 17:11 Dose: 1 gm Thiamine HCl (Vitamin B1 Tab) 100 mg PO DAILY [facility] Last Admin: 12/12/18 09:35 Dose: 100 mg - Labs Labs: 12/12/18 06:15 12/12/18 06:15 PT 11.0 SECONDS (9.4-12.5) 12/11/18 09:30 INR 0.97 12/11/18 09:30 APTT 28.6 Seconds (26.9-38.3) 12/11/18 09:30 Attending/Attestation - Attestation I have personally seen and examined this patient.: Yes I have fully participated in the care of the patient.: Yes I have reviewed all pertinent clinical information, including history, physical exam and plan: Yes Notes (Text): 12/12/18 17:46 43 year old male with past medical history of hypertension, colitis, gastritis, cocaine abuse and chronic ETOH abuse who presented with complaint of chest pain, abdominal pain, nausea, vomiting and alcohol withdrawal. Serial cardiac enzymes were negative and ACS was ruled out. Abdominal pain has improved and diet is advanced. However now patient is complaining of diarrhea. Will obtain stool studies. Continue with ativan taper for alcohol withdrawal symptoms. Continue with multivitamin, folic acid and thiamine. He was counselled on alcohol abstinence. Addie Melendez MD Hospitalist.
[2018-12-12] MEDS: Sodium Chloride 0.9% 1,000 ML IV SCH ×2 (17:14→20:00)
[2018-12-12 17:18] VITALS: RESP 20
[2018-12-13] MEDS: Sodium Chloride 0.9% 1,000 ML IV SCH (06:00)
[2018-12-13 07:00] LABS: BASO # 0.01 K/mm3 (0.0-2.0); BASO % 0.3 % (0.0-3.0); EOS % 1.3 % (1.5-5.0); HEMOGLOBIN 11.8 g/dL (14.0-18.0); LYMPH # 1.1 (1.2-3.4); LYMPH % 35.1 % (22.0-35.0); MEAN CORPUSCULAR HEMOGLOBIN 29.4 pg (25.0-35.0); MEAN CORPUSCULAR HGB CONC 32.2 g/dl (31.0-37.0); MEAN PLATELET VOLUME 10.5 fl (7.0-11.0); MONO # 0.5 (0.1-0.6); MONO % 14.6 % (1.0-6.0); RBC 4.02 10^6/uL (3.5-6.1); RED CELL DISTRIBUTION WIDTH 13.3 % (11.5-14.5); WHITE BLOOD COUNT 3.1 10^3/uL (4.5-11.0)
[2018-12-13 07:46] LABS: ALB/GLOB RATIO 1.4 (1.1-1.8); ALBUMIN 4.3 g/dL (3.0-4.8); ALT/SGPT 42 U/L (7-56); AST/SGOT 70 U/L (17-59); BLOOD UREA NITROGEN 11 mg/dL (7-21); CALCIUM 9.2 mg/dL (8.4-10.5); GFR NON-AFRICAN AMERICAN > 60
[2018-12-13] MEDS: Multivitamin Therapeutic Tab PO SCH (08:14)
[2018-12-13] MEDS: Pantoprazole 40 mg EC Tab PO SCH (09:05)
[2018-12-13 09:09] VITALS: TEMP 98; O2SAT 98
[2018-12-13 09:13] VITALS: BP 117/86
[2018-12-13 11:38] VITALS: PULSE 99
--- NOTE | 2018-12-13 15:03 | CP.PCM.DIS ---
<Radha Garner - Last Filed: 12/13/18 14:57> Provider - Provider Date of Admission: 12/11/18 12:12 Attending physician: Addie Melendez MD Primary care physician: none Consults: 12/11/18 22:19 Social Work Referral Routine Comment: d/c plan Physician Instructions: Reason For Exam: assess 12/11/18 22:47 Inpatient EDITOR CONTINUITY AND SCRIPT Core Measures Referral Routine Comment: chest pain Physician Instructions: Reason For Exam: eval Transition In Care/Readmission Reduction Routine Comment: chest pain Physician Instructions: Reason For Exam: assess Time Spent in preparation of Discharge (in minutes): 60 Diagnosis - Discharge Diagnosis (1) Alcohol withdrawal Status: Acute (2) Chest pain Status: Acute Hospital Course - Lab Results Lab Results: Micro Results 12/12/18 14:40 Stool C. difficile Antigen & Toxins A,B - Final Most Recent Lab Values WBC 3.1 10^3/uL (4.5-11.0) L 12/13/18 06:20 RBC 4.02 10^6/uL (3.5-6.1) 12/13/18 06:20 Hgb 11.8 g/dL (14.0-18.0) L 12/13/18 06:20 Hct 36.6 % (42.0-52.0) L 12/13/18 06:20 MCV 91.0 fl (80.0-105.0) 12/13/18 06:20 MCH 29.4 pg (25.0-35.0) 12/13/18 06:20 MCHC 32.2 g/dl (31.0-37.0) 12/13/18 06:20 RDW 13.3 % (11.5-14.5) 12/13/18 06:20 Plt Count 177 10^3/uL (120.0-450.0) 12/13/18 06:20 MPV 10.5 fl (7.0-11.0) 12/13/18 06:20 Neut % (Auto) 48.7 % (50.0-68.0) L 12/13/18 06:20 Lymph % (Auto) 35.1 % (22.0-35.0) H 12/13/18 06:20 [place] % (Auto) 14.6 % (1.0-6.0) H 12/13/18 06:20 Eos % (Auto) 1.3 % (1.5-5.0) L 12/13/18 06:20 Baso % (Auto) 0.3 % (0.0-3.0) 12/13/18 06:20 Lymph # (Auto) 1.1 (1.2-3.4) L 12/13/18 06:20 [place] # (Auto) 0.5 (0.1-0.6) 12/13/18 06:20 Eos # (Auto) 0.0 (0.0-0.7) 12/13/18 06:20 Baso # (Auto) 0.01 K/mm3 (0.0-2.0) 12/13/18 06:20 Absolute Neuts (auto) 1.50 (1.4-6.5) 12/13/18 06:20 PT 11.0 SECONDS (9.4-12.5) 12/11/18 09:30 INR 0.97 12/11/18 09:30 APTT 28.6 Seconds (26.9-38.3) 12/11/18 09:30 Sodium 135 mmol/L (132-148) 12/13/18 06:20 Potassium 4.0 mmol/L (3.6-5.0) 12/13/18 06:20 Chloride 101 mmol/L (98-107) 12/13/18 06:20 Carbon Dioxide 27 mmol/L (21-33) 12/13/18 06:20 Anion Gap 11 (10-20) 12/13/18 06:20 BUN 11 mg/dL (7-21) 12/13/18 06:20 Creatinine 0.7 mg/dl (0.8-1.5) L 12/13/18 06:20 Est GFR ( Amer) > 60 12/13/18 06:20 Est GFR (Non-Af Amer) > 60 12/13/18 06:20 POC Glucose (mg/dL) 108 mg/dL (65-110) 12/12/18 07:07 Random Glucose 104 mg/dL (70-110) 12/13/18 06:20 Calcium 9.2 mg/dL (8.4-10.5) 12/13/18 06:20 Phosphorus 2.7 mg/dL (2.5-4.5) 12/12/18 06:15 Magnesium 1.8 mg/dL (1.7-2.2) 12/12/18 06:15 Total Bilirubin 0.5 mg/dL (0.2-1.3) 12/13/18 06:20 AST 70 U/L (17-59) H 12/13/18 06:20 ALT 42 U/L (7-56) 12/13/18 06:20 Alkaline Phosphatase 49 U/L (38-126) 12/13/18 06:20 Lactate Dehydrogenase 530 U/L (333-699) 12/11/18 09:30 Total Creatine Kinase 334 U/L (35-230) H 12/11/18 09:30 CK-MB (CK-2) 2.2 ng/mL (0.0-3.6) 12/11/18 09:30 CK-MB (CK-2) % Cancelled 12/11/18 09:30 Troponin I < 0.01 ng/mL 12/11/18 21:20 Total Protein 7.3 g/dL (5.8-8.3) 12/13/18 06:20 Albumin 4.3 g/dL (3.0-4.8) 12/13/18 06:20 Globulin 3.0 gm/dL 12/13/18 06:20 Albumin/Globulin Ratio 1.4 (1.1-1.8) 12/13/18 06:20 Urine Color Yellow (YELLOW) 12/11/18 10:35 Urine Appearance Clear (CLEAR) 12/11/18 10:35 Urine pH 5.5 (4.7-8.0) 12/11/18 10:35 Ur Specific [place] >= 1.030 (1.005-1.035) 12/11/18 10:35 Urine Protein Negative mg/dL (<30 mg/dL) 12/11/18 10:35 Urine Glucose (UA) 250 mg/dL (NEGATIVE) H 12/11/18 10:35 Urine Ketones 40 mg/dL (NEGATIVE) H 12/11/18 10:35 Urine Blood Negative (NEGATIVE) 12/11/18 10:35 Urine Nitrate Negative (NEGATIVE) 12/11/18 10:35 Urine Bilirubin Negative (NEGATIVE) 12/11/18 10:35 Urine Urobilinogen 0.2 E.U./dL (<1 E.U./dL) 12/11/18 10:35 Ur Leukocyte Esterase Negative Georges/uL (NEGATIVE) 12/11/18 10:35 Urine Opiates Screen Negative (NEGATIVE) 12/11/18 10:35 Urine Methadone Screen Negative (NEGATIVE) 12/11/18 10:35 Ur Barbiturates Screen Negative (NEGATIVE) 12/11/18 10:35 Ur Phencyclidine Scrn Negative (NEGATIVE) 12/11/18 10:35 Ur Amphetamines Screen Negative (NEGATIVE) 12/11/18 10:35 U Benzodiazepines Scrn Negative (NEGATIVE) 12/11/18 10:35 U Oth Cocaine Metabols Negative (NEGATIVE) 12/11/18 10:35 U Cannabinoids Screen Negative (NEGATIVE) 12/11/18 10:35 Alcohol, Quantitative 40 mg/dL (0-10) H 12/11/18 09:30 - Hospital Course Hospital Course: Radha Garner, PGY-1, Internal Medicine Discharge Summary for Dr. Melendez 43 year old male with PMH of HTN, colitis (due to polysubstance abuse), alcohol abuse, cocaine abuse & anxiety who presented to ED with complaint of epigastric chest pain, SOB, nausea, vomiting x3 and diffuse abdominal pain that started the morning of presentation. Patient admitted to consuming 2-half pints of vodka the night prior. Patient also admitted to monthly use of cocaine with the most recent a few weeks ago. Patient was observed to rule out ACS. Troponins were trended and were (-) x 3. No acute EKG changes were noted. CXR revealed no abnormalities. Pt was treated for ETOH withdrawal with Ativan 2mg Q6 & 1mg Q3 prn. He was given a banana bag, placed on CIWA protocol, seizure and fall precautions. He was treated symptomatically with Zofran and Protonix for abdominal symptoms. Ativan dose was reduced on day 2 of admission to 1 mg Q6. Patient did not require PRN ativan. CIWA scores were 1-2 throughout admission. Patient was started on MVI, thiamine, and folic acid on day 2. Patient also reported nonbloody diarrhea episodes. Stool culture and C. Dif st ool toxin were ordered. Patient was positive for C. Dif stool antigen but negative for stool toxin. Patient was discharged with vancomycin PO for treatment of C. Diff. Patient reported no diarrhea today. Patient was stable and ready for discharge on 12/12. He reported feeling better this morning with no acute complaints. He was told to follow up with PCP. He was instructed to continue his home medication regimen and vancomycin for 10 days. He was advised on cessation of alcohol. In addition, he was told to return to the emergency department if he had any recurring or new concerning symptoms. - Date & Time of H&P Date of H&P: 12/13/18 Time of H&P: 14:57 Discharge Exam - Head Exam Head Exam: ATRAUMATIC, NORMAL INSPECTION, NORMOCEPHALIC - Eye Exam Eye Exam: EOMI, PERRL - ENT Exam ENT Exam: Mucous Membranes Moist - Respiratory Exam Respiratory Exam: Clear to PA & Lateral, NORMAL BREATHING PATTERN - Cardiovascular Exam Cardiovascular Exam: REGULAR RHYTHM, RRR - GI/Abdominal Exam GI & Abdominal Exam: Normal Bowel Sounds, Soft. absent: Tenderness - Extremities Exam Extremities exam: full ROM - Neurological Exam Neurological exam: Alert, CN II-XII Intact, Oriented x3 - Psychiatric Exam Psychiatric exam: Normal Affect, Normal Mood - Skin Skin Exam: Dry, Intact, Normal Color Discharge Plan - Discharge Medications Prescriptions: Vancomycin HCl [Vancocin HCl] 125 mg PO QID 10 Days #40 capsule - Follow Up Plan Condition: FAIR Disposition: HOME/ ROUTINE Instructions: Clostridium difficile, Chest Pain (DC), Alcohol Abuse and Alcoholism (DC), Acute Abdominal Pain (DC), Acute Abdominal Pain (GEN) Additional Instructions: 1. Please follow up with new PCP within 7-14 days. 2. Please take vancomycin for 10 days as prescribed for C. Difficile infection and take all other home medications as prescribed. 3. Please return to the emergency department for any new or concerning symptoms 4. Please abstain from alcohol use and polysubstance use due to significant side effects including but not limited to . Referrals: [facility] [Outside] <Addie Melendez - Last Filed: 12/13/18 15:50> Provider - Provider Date of Admission: 12/11/18 12:12 Attending physician: Addie Melendez MD Consults: 12/11/18 22:19 Social Work Referral Routine Comment: d/c plan Physician Instructions: Reason For Exam: assess 12/11/18 22:47 Inpatient EDITOR CONTINUITY AND SCRIPT Core Measures Referral Routine Comment: chest pain Physician Instructions: Reason For Exam: eval Transition In Care/Readmission Reduction Routine Comment: chest pain Physician Instructions: Reason For Exam: assess Hospital Course - Lab Results Lab Results: Micro Results 12/12/18 14:40 Stool C. difficile Antigen & Toxins A,B - Final Most Recent Lab Values WBC 3.1 10^3/uL (4.5-11.0) L 12/13/18 06:20 RBC 4.02 10^6/uL (3.5-6.1) 12/13/18 06:20 Hgb 11.8 g/dL (14.0-18.0) L 12/13/18 06:20 Hct 36.6 % (42.0-52.0) L 12/13/18 06:20 MCV 91.0 fl (80.0-105.0) 12/13/18 06:20 MCH 29.4 pg (25.0-35.0) 12/13/18 06:20 MCHC 32.2 g/dl (31.0-37.0) 12/13/18 06:20 RDW 13.3 % (11.5-14.5) 12/13/18 06:20 Plt Count 177 10^3/uL (120.0-450.0) 12/13/18 06:20 MPV 10.5 fl (7.0-11.0) 12/13/18 06:20 Neut % (Auto) 48.7 % (50.0-68.0) L 12/13/18 06:20 Lymph % (Auto) 35.1 % (22.0-35.0) H 12/13/18 06:20 [place] % (Auto) 14.6 % (1.0-6.0) H 12/13/18 06:20 Eos % (Auto) 1.3 % (1.5-5.0) L 12/13/18 06:20 Baso % (Auto) 0.3 % (0.0-3.0) 12/13/18 06:20 Lymph # (Auto) 1.1 (1.2-3.4) L 12/13/18 06:20 [place] # (Auto) 0.5 (0.1-0.6) 12/13/18 06:20 Eos # (Auto) 0.0 (0.0-0.7) 12/13/18 06:20 Baso # (Auto) 0.01 K/mm3 (0.0-2.0) 12/13/18 06:20 Absolute Neuts (auto) 1.50 (1.4-6.5) 12/13/18 06:20 PT 11.0 SECONDS (9.4-12.5) 12/11/18 09:30 INR 0.97 12/11/18 09:30 APTT 28.6 Seconds (26.9-38.3) 12/11/18 09:30 Sodium 135 mmol/L (132-148) 12/13/18 06:20 Potassium 4.0 mmol/L (3.6-5.0) 12/13/18 06:20 Chloride 101 mmol/L (98-107) 12/13/18 06:20 Carbon Dioxide 27 mmol/L (21-33) 12/13/18 06:20 Anion Gap 11 (10-20) 12/13/18 06:20 BUN 11 mg/dL (7-21) 12/13/18 06:20 Creatinine 0.7 mg/dl (0.8-1.5) L 12/13/18 06:20 Est GFR ( Amer) > 60 12/13/18 06:20 Est GFR (Non-Af Amer) > 60 12/13/18 06:20 POC Glucose (mg/dL) 108 mg/dL (65-110) 12/12/18 07:07 Random Glucose 104 mg/dL (70-110) 12/13/18 06:20 Calcium 9.2 mg/dL (8.4-10.5) 12/13/18 06:20 Phosphorus 2.7 mg/dL (2.5-4.5) 12/12/18 06:15 Magnesium 1.8 mg/dL (1.7-2.2) 12/12/18 06:15 Total Bilirubin 0.5 mg/dL (0.2-1.3) 12/13/18 06:20 AST 70 U/L (17-59) H 12/13/18 06:20 ALT 42 U/L (7-56) 12/13/18 06:20 Alkaline Phosphatase 49 U/L (38-126) 12/13/18 06:20 Lactate Dehydrogenase 530 U/L (333-699) 12/11/18 09:30 Total Creatine Kinase 334 U/L (35-230) H 12/11/18 09:30 CK-MB (CK-2) 2.2 ng/mL (0.0-3.6) 12/11/18 09:30 CK-MB (CK-2) % Cancelled 12/11/18 09:30 Troponin I < 0.01 ng/mL 12/11/18 21:20 Total Protein 7.3 g/dL (5.8-8.3) 12/13/18 06:20 Albumin 4.3 g/dL (3.0-4.8) 12/13/18 06:20 Globulin 3.0 gm/dL 12/13/18 06:20 Albumin/Globulin Ratio 1.4 (1.1-1.8) 12/13/18 06:20 Urine Color Yellow (YELLOW) 12/11/18 10:35 Urine Appearance Clear (CLEAR) 12/11/18 10:35 Urine pH 5.5 (4.7-8.0) 12/11/18 10:35 Ur Specific [place] >= 1.030 (1.005-1.035) 12/11/18 10:35 Urine Protein Negative mg/dL (<30 mg/dL) 12/11/18 10:35 Urine Glucose (UA) 250 mg/dL (NEGATIVE) H 12/11/18 10:35 Urine Ketones 40 mg/dL (NEGATIVE) H 12/11/18 10:35 Urine Blood Negative (NEGATIVE) 12/11/18 10:35 Urine Nitrate Negative (NEGATIVE) 12/11/18 10:35 Urine Bilirubin Negative (NEGATIVE) 12/11/18 10:35 Urine Urobilinogen 0.2 E.U./dL (<1 E.U./dL) 12/11/18 10:35 Ur Leukocyte Esterase Negative Georges/uL (NEGATIVE) 12/11/18 10:35 Urine Opiates Screen Negative (NEGATIVE) 12/11/18 10:35 Urine Methadone Screen Negative (NEGATIVE) 12/11/18 10:35 Ur Barbiturates Screen Negative (NEGATIVE) 12/11/18 10:35 Ur Phencyclidine Scrn Negative (NEGATIVE) 12/11/18 10:35 Ur Amphetamines Screen Negative (NEGATIVE) 12/11/18 10:35 U Benzodiazepines Scrn Negative (NEGATIVE) 12/11/18 10:35 U Oth Cocaine Metabols Negative (NEGATIVE) 12/11/18 10:35 U Cannabinoids Screen Negative (NEGATIVE) 12/11/18 10:35 Alcohol, Quantitative 40 mg/dL (0-10) H 12/11/18 09:30 Attending/Attestation - Attestation I have personally seen and examined this patient.: Yes I have fully participated in the care of the patient.: Yes I have reviewed all pertinent clinical information, including history, physical exam and plan: Yes Notes (Text): 12/13/18 15:48 43 year old male with past medical history of hypertension, colitis, gastritis, cocaine abuse and chronic ETOH abuse who presented with complaint of chest pain, abdominal pain, nausea, vomiting and alcohol withdrawal. Serial cardiac enzymes were negative and ACS was ruled out. Abdominal pain has improved and diet was advanced. Yesterday he reported diarrhea and CDif antigen is positive. Diarrhea has improved. He is started on po vanco. He was on tapering ativan taper for alcohol withdrawal symptoms. Patient is discharged home to follow up with pmd. He was counselled on alcohol abstinence. Addie Melendez MD Hospitalist.
== END 2018-12-13 14:36 | disposition home or self-care (01) ==
LOC: ED 08:59 → ERH 12:12 → 3RNO 20:07
PROVIDERS: ADMIT Internal Medicine; ATTEND Internal Medicine
DX: R07.89 Other chest pain (principal); F10.239 Alcohol dependence with withdrawal, unspecified; E78.5 Hyperlipidemia, unspecified; F12.10 Cannabis abuse, uncomplicated; F14.10 Cocaine abuse, uncomplicated; I10 Essential (primary) hypertension; K21.9 Gastro-esophageal reflux disease without esophagitis; I44.0 Atrioventricular block, first degree; K29.70 Gastritis, unspecified, without bleeding; G62.9 Polyneuropathy, unspecified; Z82.0 Family history of epilepsy and other diseases of the nervous system; Z82.3 Family history of stroke; F17.210 Nicotine dependence, cigarettes, uncomplicated; Y90.2 Blood alcohol level of 40-59 mg/100 ml
CPT/HCPCS: 36415; 71045; 80053; 80320; 80324; 80345; 80346; 80349; 80353; 80358; 80361; 81003; 82550; 82553; 82948; 83615; 83735; 83992; 84100; 84484; 85025; 85027; 85610; 85730; 87045; 87324; 93005; 96374; 96375; 96376; 99285; G0378; J2060; J2405; J3411; J7030

== ENCOUNTER 2018-12-18 08:57 | Inpatient (IN) | payer MEDICAID ==
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
[2018-12-18 09:14] VITALS: BMI 20.9
[2018-12-18] MEDS ORDERED: Sodium Chloride 0.9% 1,000 ML IV ONE (09:15)
[2018-12-18 09:48] LABS: BASO # 0.02 K/mm3 (0.0-2.0); BASO % 0.5 % (0.0-3.0); EOS % 0.3 % (1.5-5.0); HEMOGLOBIN 12.2 g/dL (14.0-18.0); LYMPH # 1.3 (1.2-3.4); LYMPH % 33.1 % (22.0-35.0); MEAN CELL VOLUME 90.6 fl (80.0-105.0); MEAN CORPUSCULAR HEMOGLOBIN 29.5 pg (25.0-35.0); MEAN CORPUSCULAR HGB CONC 32.6 g/dl (31.0-37.0); MEAN PLATELET VOLUME 10.7 fl (7.0-11.0); MONO # 0.4 (0.1-0.6); MONO % 9.4 % (1.0-6.0); RBC 4.13 10^6/uL (3.5-6.1); RED CELL DISTRIBUTION WIDTH 13.6 % (11.5-14.5); WHITE BLOOD COUNT 3.8 10^3/uL (4.5-11.0)
[2018-12-18 10:03] LABS: ALB/GLOB RATIO 1.6 (1.1-1.8); ALT/SGPT 48 U/L (7-56); AST/SGOT 74 U/L (17-59); BLOOD UREA NITROGEN 19 mg/dL (7-21); CALCIUM 9.8 mg/dL (8.4-10.5); GFR NON-AFRICAN AMERICAN > 60; LIPASE 65 U/L (23-300)
[2018-12-18 10:12] LABS: TROPONIN I < 0.01 ng/mL
[2018-12-18] MEDS ORDERED: Iohexol 350 MG/100 ML VIAL ONE (10:21)
[2018-12-18] MEDS ORDERED: Alum-Mag Hydrox-Simethicone Susp (30 mL) PO STA (11:00)
--- NOTE | 2018-12-18 11:52 | CT ---
Date of service: 12/18/2018 PROCEDURE: CT Abdomen and Pelvis with contrast HISTORY: cp/ llq abd pain, hx of colitis COMPARISON: 11/12/2018 TECHNIQUE: Contrast dose: 100 mL Omnipaque 350 Radiation dose: Total exam DLP = 260.99 mGy-cm. This CT exam was performed using one or more of the following dose reduction techniques: Automated exposure control, adjustment of the mA and/or kV according to patient size, and/or use of iterative reconstruction technique. FINDINGS: LOWER THORAX: Unremarkable. LIVER: Unremarkable. No gross lesion or ductal dilatation. GALLBLADDER AND BILE DUCTS: Unremarkable. PANCREAS: Unremarkable. No gross lesion or ductal dilatation. SPLEEN: Unremarkable. ADRENALS: Unremarkable. No mass. KIDNEYS AND URETERS: Nonspecific 6 mm rounded low-attenuation lesion in the upper pole right kidney, unchanged. No other mass. No renal calculus or hydronephrosis VASCULATURE: Unremarkable. No aortic aneurysm. No aortic atherosclerotic calcification or mural plaque present. BOWEL: There is mural thickening of the transverse, descending and rectosigmoid colon consistent with nonspecific colitis. There is diverticulosis of the transverse colon. There is no evidence of diverticulitis. There is intramural lucency seen in the cecum and proximal ascending colon suggesting possible prior colitis such as ulcerative colitis. Please correlate with history. No bowel obstruction. No other abnormal bowel loops are identified. APPENDIX: Normal appendix. PERITONEUM: Unremarkable. No free fluid. No free air. LYMPH NODES: Unremarkable. No enlarged lymph nodes. BLADDER: Nondistended REPRODUCTIVE: Normal prostate BONES: No acute fracture. OTHER FINDINGS: None. IMPRESSION: Nonspecific colitis involving transverse, descending and rectosigmoid colon. Possible evidence of old/prior colitis such as ulcerative colitis involving the cecum and proximal ascending colon. No other acute abnormality. The
[2018-12-18] MEDS ORDERED: metroNIDAZOLE IV 500 mg/100 ml 500 MG/100 ML BAG IVPB STA (12:27)
[2018-12-18] MEDS ORDERED: Ciprofloxacin 400mg/200ml D5W 400 MG/200 ML BAG IVPB STA (12:27)
--- NOTE | 2018-12-18 12:56 | RAD ---
Date of service: 12/18/2018 HISTORY: cp COMPARISON: 12/11/2018 FINDINGS: LUNGS: No active pulmonary disease. PLEURA: No significant pleural effusion identified, no pneumothorax apparent. CARDIOVASCULAR: No aortic atherosclerotic calcification present. Normal cardiac size. No pulmonary vascular congestion. OSSEOUS STRUCTURES: No significant abnormalities. VISUALIZED UPPER ABDOMEN: Normal. OTHER FINDINGS: None. IMPRESSION: No active disease.
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
[2018-12-18 14:10] LABS: URINE BILIRUBIN NEGATIVE (NEGATIVE); URINE BLOOD NEGATIVE (NEGATIVE); URINE GLUCOSE (UA) NEGATIVE (NEGATIVE); URINE LEUKOCYTE ESTERASE NEGATIVE Leu/uL (NEGATIVE); URINE PROTEIN NEGATIVE mg/dL (<30 mg/dL); URINE UROBILINOGEN 0.2 E.U./dL (<1 E.U./dL)
[2018-12-18 14:18] LABS: URINE APPEARANCE CLEAR (CLEAR); URINE COLOR YELLOW (YELLOW)
[2018-12-18 14:22] LABS: BARBITURATES, UR NEGATIVE (NEGATIVE)
[2018-12-18 14:31] LABS: BENZODIAZEPINES, UR NEGATIVE (NEGATIVE); OPIATES, UR NEGATIVE (NEGATIVE); PHENCYCLIDINE, UR NEGATIVE (NEGATIVE)
[2018-12-18 15:14] LABS: CK-MB 1.7 ng/mL (0.0-3.6)
[2018-12-18] MEDS: Enoxaparin 40 mg Syringe SC SCH (16:14)
[2018-12-18] MEDS: cefTRIAXone 1 gm 1 GM/100 ML BAG IVPB SCH (18:16)
[2018-12-18] MEDS ORDERED: Pneumococcal 23-Valent Vaccine IM ONE (19:58)
[2018-12-18] MEDS ORDERED: Influenza Vaccine 60 mcg/0.5 mL SYR (4YR UP) IM ONE (19:58)
--- NOTE | 2018-12-18 21:40 | CARD ---
APPROVED REPORT Date of service: 12/18/2018 EKG Measurement Heart [id number] <Conclusion> Normal sinus rhythm Possible Left atrial enlargement Left ventricular hypertrophy Abnormal ECG
[2018-12-18] MEDS: metroNIDAZOLE IV 500 mg/100 ml 500 MG/100 ML BAG IVPB SCH (22:00)
[2018-12-19] MEDS: metroNIDAZOLE IV 500 mg/100 ml 500 MG/100 ML BAG IVPB SCH ×3 (06:44→22:08)
[2018-12-19] MEDS: Pantoprazole 40 mg EC Tab PO SCH (06:45)
[2018-12-19 06:57] LABS: BASO # 0.01 K/mm3 (0.0-2.0); BASO % 0.3 % (0.0-3.0); EOS % 0.9 % (1.5-5.0); HEMOGLOBIN 11.8 g/dL (14.0-18.0); LYMPH # 1.5 (1.2-3.4); LYMPH % 44.7 % (22.0-35.0); MEAN CELL VOLUME 89.6 fl (80.0-105.0); MEAN CORPUSCULAR HEMOGLOBIN 29.3 pg (25.0-35.0); MEAN CORPUSCULAR HGB CONC 32.7 g/dl (31.0-37.0); MONO # 0.4 (0.1-0.6); MONO % 11.8 % (1.0-6.0); RBC 4.03 10^6/uL (3.5-6.1); RED CELL DISTRIBUTION WIDTH 13.4 % (11.5-14.5); WHITE BLOOD COUNT 3.3 10^3/uL (4.5-11.0)
[2018-12-19 07:25] LABS: ALB/GLOB RATIO 1.5 (1.1-1.8); ALBUMIN 4.4 g/dL (3.0-4.8); ALT/SGPT 37 U/L (7-56); AST/SGOT 59 U/L (17-59); BLOOD UREA NITROGEN 10 mg/dL (7-21); CALCIUM 9.5 mg/dL (8.4-10.5); GFR NON-AFRICAN AMERICAN > 60
[2018-12-19] MEDS ORDERED: Potassium Chloride 20 mEq ER Tab PO STA (07:58)
[2018-12-19] MEDS: Enoxaparin 40 mg Syringe SC SCH (10:06)
[2018-12-19] MEDS: cefTRIAXone 1 gm 1 GM/100 ML BAG IVPB SCH (10:07)
--- NOTE | 2018-12-19 10:44 | CP.PCM.PN ---
<Chandler Boswell - Last Filed: 12/19/18 13:28> Subjective - Date & Time of Evaluation Date of Evaluation: 12/19/18 Time of Evaluation: 10:40 - Subjective Subjective: PGY1 Medicine Progress Note for Dr. Silverio Patient was seen and evaluated at bedside this morning. No acute events overnight. Patient continues to have bouts of watery diarrhea this morning. Patient is tolerating liquid diet, however Patient endorses mild abdominal pain; improved from yesterday. Patient denies chest pain. Patient otherwise denies shortness of breath, numbness/tingling, weakness, nausea, vomiting, hematochezia, dysuria, headache, fever, and/or chills. Objective - Vital Signs/Intake and Output Vital Signs (last 24 hours): Temp Pulse Resp BP Pulse Ox 98.2 F 74 20 125/91 H 100 12/19/18 06:00 12/19/18 10:06 12/19/18 06:00 12/19/18 10:06 12/19/18 06:00 Intake and Output: 12/19/18 12/19/18 06:59 18:59 Intake Total 1440 Output Total 1700 Balance -260 - Medications Medications: Current Medications Acetaminophen (Tylenol 325mg Tab) 650 mg PO Q6H PRN PRN Reason: Fever >100.4 F Aspirin (Ecotrin) 81 mg PO DAILY [facility] Last Admin: 12/19/18 10:06 Dose: 81 mg Enoxaparin Sodium (Lovenox) 40 mg SC DAILY [facility]; Protocol Last Admin: 12/19/18 10:06 Dose: 40 mg Metronidazole (Flagyl) 500 mg in 100 mls @ 100 mls/hr IVPB Q8 [facility]; Protocol Last Admin: 12/19/18 06:44 Dose: 100 mls/hr Ceftriaxone Sodium (Rocephin 1 Gram Ivpb) 1 gm in 100 mls @ 100 mls/hr IVPB DAILY [facility]; Protocol Last Admin: 12/19/18 10:07 Dose: 100 mls/hr Lisinopril (Zestril) 2.5 mg PO DAILY [facility] Last Admin: 12/19/18 10:06 Dose: 2.5 mg Pantoprazole Sodium (Protonix Ec Tab) 40 mg PO 0600 [facility] Last Admin: 12/19/18 06:45 Dose: 40 mg - Labs Labs: 12/19/18 06:30 12/19/18 06:30 - Additional Findings Additional findings: - Constitutional Appears: Non-toxic, No Acute Distress - Head Exam Head Exam: ATRAUMATIC, NORMAL INSPECTION, NORMOCEPHALIC - Eye Exam Eye Exam: EOMI, Normal appearance, PERRL Pupil Exam: NORMAL ACCOMODATION - ENT Exam ENT Exam: Mucous Membranes Moist, Normal Exam - Neck Exam Neck exam: Positive for: Normal Inspection - Respiratory Exam Respiratory Exam: Clear to Auscultation Bilateral, NORMAL BREATHING PATTERN. absent: Accessory Muscle Use, Prolonged Expiratory Phase, Wheezes, Respiratory Distress, Stridor - Cardiovascular Exam Cardiovascular Exam: REGULAR RHYTHM, RRR, +S1, +S2. absent: Bradycardia, Tachycardia, Gallop, Irregular Rhythm, Systolic Murmur - GI/Abdominal Exam GI & Abdominal Exam: Normal Bowel Sounds, Soft, Tenderness (LLQ ). absent: Bruit, Distended, Firm, Guarding, Mass, Organomegaly - Extremities Exam Extremities exam: Positive for: full ROM, normal inspection. Negative for: calf tenderness, joint swelling - Back Exam Back exam: NORMAL INSPECTION - Neurological Exam Neurological exam: Alert, CN II-XII Intact, Oriented x3 - Psychiatric Exam Psychiatric exam: Normal Affect, Normal Mood - Skin Skin Exam: Dry, Intact, Normal Color, Warm Assessment and Plan - Assessment and Plan (Free Text) Assessment: 43 year old male with PMH of HTN, colitis (due to polysubstance abuse), alcohol abuse, cocaine abuse & anxiety who presents to [facility] complaining of chest pain. Patient states he began experiencing LLQ pain and and chest pain this morning. Abdominal pain Likely Secondary to Ischemic Colitis Likely Secondary to Cocaine Use - CT abdomen / Pelvis: Nonspecific colitis involving the transverse, descending and rectosigmoid colon. Possible evidence of old/prior colitis such as UC involving the cecum and proximal ascending colon. No other acute abnormality. - Patient afebrile - No leukocytosis - Hemoglobin stable (12.2; baseline) - Stool Culture ordered - C. Diff stool toxins ordered - UDS negative; Patient admits to cocaine use 2 days prior to arrival - Blood culture ordered - Advanced to full liquid diet - ABX: IV Rocephin and IV Flagyl - Start: Vanco 125mg PO Q6H - Protonix daily - Morphine 1mg IV Q4H PRN for severe pain Hypokalemia, 3.2 - Replete as needed - Mg level 1.7; Repleted magnesium - Phosphorus pending - Monitor CMP Chest pain; Rule-Out ACS - CXR: No active disease - Cardiology consulted (Dr. Elizabeth); recommendations appreciated - EKG: NSR at [address]-segment elevations or depressions, no T-wave inversions, normal intervals. - Troponin Q6H: negative x3 - Risk factors: HTN; Patient admits to recent cocaine use, smoking tobacco - Most recent ECHO 02/12: EF 60.3%, mild tricuspid regurg, mild pulmonary HTN, normal LV wall thickness, normal LV function Mild Transaminitis, resolved - Trend LFTs with daily CMP - Monitor Substance Abuse; Cocaine - UDS negative; Patient admits to cocaine use ETOH Abuse - CIWA - Ativan 1mg PO PRN - Seizure, fall, aspiration precautions - Monitor History of Hypertension - Home med: Amlodipine (HOLD) - Start: Lisinopril 2.5mg PO Daily - Monitor Ppx: - GI: protonix 40mg PO daily - DVT: SCD, Lovenox 40mg SC daily Patient seen and case discussed in detail with Dr. Nusrat Boswell PGY1 <Luisito Silverio - Last Filed: 12/21/18 14:19> Objective - Vital Signs/Intake and Output Vital Signs (last 24 hours): Temp Pulse Resp BP Pulse Ox 98.1 F 78 18 109/77 100 12/21/18 08:22 12/21/18 08:22 12/21/18 08:22 12/21/18 08:22 12/21/18 08:22 Intake and Output: 12/21/18 12/21/18 06:59 18:59 Intake Total 0 Output Total 700 Balance -700 - Medications Medications: Current Medications Acetaminophen (Tylenol 325mg Tab) 650 mg PO Q6H PRN PRN Reason: Fever >100.4 F Aspirin (Ecotrin) 81 mg PO DAILY [facility] Last Admin: 12/21/18 11:36 Dose: 81 mg Enoxaparin Sodium (Lovenox) 40 mg SC DAILY [facility]; Protocol Last Admin: 12/21/18 11:36 Dose: 40 mg Ceftriaxone Sodium (Rocephin 1 Gram Ivpb) 1 gm in 100 mls @ 100 mls/hr IVPB DAILY [facility]; Protocol Last Admin: 12/21/18 11:36 Dose: 100 mls/hr Lisinopril (Zestril) 2.5 mg PO DAILY [facility] Last Admin: 12/21/18 11:37 Dose: 2.5 mg Metronidazole (Flagyl) 500 mg PO Q8 [facility]; Protocol Morphine Sulfate (Morphine) 1 mg IVP Q4H PRN PRN Reason: Pain, severe (8-10) Last Admin: 12/20/18 15:36 Dose: 1 mg Pantoprazole Sodium (Protonix Ec Tab) 40 mg PO 0600 [facility] Last Admin: 12/21/18 06:19 Dose: 40 mg Vancomycin HCl (Vancocin 25 Mg/Ml (Oral Use)) 125 mg PO QID [facility]; Protocol Last Admin: 12/21/18 11:35 Dose: 125 mg - Labs Labs: 12/21/18 07:00 12/21/18 07:00 Attending/Attestation - Attestation I have personally seen and examined this patient.: Yes I have fully participated in the care of the patient.: Yes I have reviewed all pertinent clinical information, including history, physical exam and plan: Yes Notes (Text): 12/21/18 14:17 Medical record note made by the resident after discussion with my direction and input after the patient was personally seen and examined by me. I have reviewed the chart and agree that the record accurately reflects by personal performance of the history, physical exam, data review, and medical decision-making, in the course for the patient. I have also personally directed the plan of care. 43 year old male with PMH of HTN, , chronic colitis (due to polysubstance abuse?), alcohol abuse, cocaine abuse & anxiety who presents to [facility] complaining of chest pain and abdominal pain CT abdomen / Pelvis: Nonspecific colitis involving the transverse, descending and rectosigmoid colon. ACS is rule out. Patient was recently treated for possible C diff colitis but did not complete treatment, now is having diarrhea, we will start patient on oral vancomycin, we will get stools studies for C diff colitis. Patient is on clear liquid diet, once abdominal pain will be betetr, we will advance diet
[2018-12-19] MEDS ORDERED: Magnesium Sulfate 2 gm/50 ml 2 GM/50 ML BAG IVPB ONE (13:32)
[2018-12-19] MEDS ORDERED: Morphine 2 mg/ml ISec IVP PRN (13:32)
[2018-12-19] MEDS: Vancomycin 25 MG/ML PO SCH ×3 (14:05→22:16)
--- NOTE | 2018-12-19 22:41 | CON ---
DATE: 12/19/2018 CARDIOLOGY CONSULTATION HISTORY: The patient is a 43-year-old male who presents with atypical chest pain. His symptoms are described as a focal chest discomfort, not related to exertion. The patient has a history of intermittent cocaine use. He does smoke, it is his cardiac risk factor. In addition, he suffers from hypertension and hypercholesterolemia. No previous cardiac history is noted. No anginal symptoms are noted. SOCIAL HISTORY: He is an active smoker. Does drink alcohol frequently. REVIEW OF SYSTEMS: He denies shortness of breath. Negative edema. Negative previous myocardial infarction. Negative orthopnea. Negative nocturia. PHYSICAL EXAMINATION: VITAL SIGNS: Blood pressure is 125/91, heart rate is in the 70s. NECK: Negative JVD. LUNGS: Without rales. HEART: Reveals S1, S2. EXTREMITIES: Without edema. EKG is within normal limits. Hemoglobin is 11.8. BUN and creatinine are unremarkable. Troponins are negative x3. Glucose is 140. IMPRESSION: 1. Atypical chest pain. 2. No evidence for acute coronary syndrome. 3. Hypertension. 4. Hypercholesterolemia. Given these findings, I have discussed with the patient about the need to stop smoking. We will arrange for an outpatient stress test and echocardiogram given his cardiac risk. We will sign off the case today. Les Elizabeth MD
[2018-12-20] MEDS: Pantoprazole 40 mg EC Tab PO SCH (06:40)
[2018-12-20] MEDS: metroNIDAZOLE IV 500 mg/100 ml 500 MG/100 ML BAG IVPB SCH ×3 (06:40→22:19)
[2018-12-20 06:41] LABS: BASO # 0.02 K/mm3 (0.0-2.0); BASO % 0.6 % (0.0-3.0); EOS # 0.1 (0.0-0.7); EOS % 1.5 % (1.5-5.0); HEMOGLOBIN 11.8 g/dL (14.0-18.0); LYMPH # 1.4 (1.2-3.4); LYMPH % 42.4 % (22.0-35.0); MEAN CELL VOLUME 90.9 fl (80.0-105.0); MEAN CORPUSCULAR HGB CONC 31.9 g/dl (31.0-37.0); MEAN PLATELET VOLUME 10.9 fl (7.0-11.0); MONO # 0.4 (0.1-0.6); MONO % 12.4 % (1.0-6.0); RBC 4.07 10^6/uL (3.5-6.1); RED CELL DISTRIBUTION WIDTH 13.3 % (11.5-14.5); WHITE BLOOD COUNT 3.3 10^3/uL (4.5-11.0)
[2018-12-20 06:48] LABS: ALB/GLOB RATIO 1.5 (1.1-1.8); ALBUMIN 4.8 g/dL (3.0-4.8); ALT/SGPT 41 U/L (7-56); AST/SGOT 54 U/L (17-59); BLOOD UREA NITROGEN 11 mg/dL (7-21); CALCIUM 9.7 mg/dL (8.4-10.5); GFR NON-AFRICAN AMERICAN > 60
[2018-12-20] MEDS: Enoxaparin 40 mg Syringe SC SCH (09:41)
[2018-12-20] MEDS: cefTRIAXone 1 gm 1 GM/100 ML BAG IVPB SCH (09:42)
[2018-12-20] MEDS: Vancomycin 25 MG/ML PO SCH ×4 (09:44→22:19)
--- NOTE | 2018-12-20 10:33 | CP.PCM.PN ---
<Chandler Boswell - Last Filed: 12/20/18 10:41> Subjective - Date & Time of Evaluation Date of Evaluation: 12/20/18 Time of Evaluation: 10:36 - Subjective Subjective: PGY1 Medicine Progress Note for Dr. Silverio Patient was seen and evaluated at bedside this morning. No acute events overnight. Patient continues to have bouts of watery diarrhea overnight/this morning. Patient states he had 8-10 bouts of watery diarrhea. Patient is tolerating regular diet. Patient denies chest pain. Patient otherwise denies shortness of breath, numbness/tingling, weakness, nausea, vomiting, hematochezia, dysuria, headache, fever, and/or chills. Objective - Vital Signs/Intake and Output Vital Signs (last 24 hours): Temp Pulse Resp BP Pulse Ox 98.2 F 65 18 112/77 99 12/20/18 08:29 12/20/18 09:45 12/20/18 08:29 12/20/18 09:45 12/20/18 08:29 Intake and Output: 12/20/18 12/20/18 06:59 18:59 Intake Total 2460 Output Total 1100 Balance 1360 - Medications Medications: Current Medications Acetaminophen (Tylenol 325mg Tab) 650 mg PO Q6H PRN PRN Reason: Fever >100.4 F Aspirin (Ecotrin) 81 mg PO DAILY [facility] Last Admin: 12/20/18 09:41 Dose: 81 mg Enoxaparin Sodium (Lovenox) 40 mg SC DAILY [facility]; Protocol Last Admin: 12/20/18 09:41 Dose: 40 mg Metronidazole (Flagyl) 500 mg in 100 mls @ 100 mls/hr IVPB Q8 [facility]; Protocol Last Admin: 12/20/18 06:40 Dose: 100 mls/hr Ceftriaxone Sodium (Rocephin 1 Gram Ivpb) 1 gm in 100 mls @ 100 mls/hr IVPB DAILY [facility]; Protocol Last Admin: 12/20/18 09:42 Dose: 100 mls/hr Lisinopril (Zestril) 2.5 mg PO DAILY [facility] Last Admin: 12/20/18 09:45 Dose: 2.5 mg Morphine Sulfate (Morphine) 1 mg IVP Q4H PRN PRN Reason: Pain, severe (8-10) Pantoprazole Sodium (Protonix Ec Tab) 40 mg PO 0600 [facility] Last Admin: 12/20/18 06:40 Dose: 40 mg Vancomycin HCl (Vancocin 25 Mg/Ml (Oral Use)) 125 mg PO QID [facility]; Protocol Last Admin: 12/20/18 09:44 Dose: 125 mg - Labs Labs: 12/20/18 05:00 12/20/18 05:00 - Additional Findings Additional findings: - Constitutional Appears: Non-toxic, No Acute Distress - Head Exam Head Exam: ATRAUMATIC, NORMAL INSPECTION, NORMOCEPHALIC - Eye Exam Eye Exam: EOMI, Normal appearance, PERRL Pupil Exam: NORMAL ACCOMODATION - ENT Exam ENT Exam: Mucous Membranes Moist, Normal Exam - Neck Exam Neck exam: Positive for: Normal Inspection - Respiratory Exam Respiratory Exam: Clear to Auscultation Bilateral, NORMAL BREATHING PATTERN. absent: Accessory Muscle Use, Prolonged Expiratory Phase, Wheezes, Respiratory Distress, Stridor - Cardiovascular Exam Cardiovascular Exam: REGULAR RHYTHM, RRR, +S1, +S2. absent: Bradycardia, Tachycardia, Gallop, Irregular Rhythm, Systolic Murmur - GI/Abdominal Exam GI & Abdominal Exam: Normal Bowel Sounds, Soft absent: Tenderness, Bruit, Distended, Firm, Guarding, Mass, Organomegaly - Extremities Exam Extremities exam: Positive for: full ROM, normal inspection. Negative for: calf tenderness, joint swelling - Back Exam Back exam: NORMAL INSPECTION - Neurological Exam Neurological exam: Alert, CN II-XII Intact, Oriented x3 - Psychiatric Exam Psychiatric exam: Normal Affect, Normal Mood - Skin Skin Exam: Dry, Intact, Normal Color, Warm Assessment and Plan - Assessment and Plan (Free Text) Assessment: 43 year old male with PMH of HTN, colitis (due to polysubstance abuse), alcohol abuse, cocaine abuse & anxiety who presents to [facility] complaining of chest pain. 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 Patient positive for C-diff ant igen, but negative for C-diff toxin. Abdominal pain Likely Secondary to Ischemic Colitis Likely Secondary to Cocaine Use - CT abdomen / Pelvis: Nonspecific colitis involving the transverse, descending and rectosigmoid colon. Possible evidence of old/prior colitis such as UC involving the cecum and proximal ascending colon. No other acute abnormality. - Patient afebrile - No leukocytosis - Hemoglobin stable (12.2; baseline) - Stool Culture ordered - C. Diff stool toxins ordered - UDS negative; Patient admits to cocaine use 2 days prior to arrival - Blood culture ordered - Advanced to full liquid diet - ABX: IV Rocephin and IV Flagyl - Start: Vanco 125mg PO Q6H - Protonix daily - Morphine 1mg IV Q4H PRN for severe pain Hypokalemia, resolved - Replete as needed - Monitor CMP Chest pain; Rule-Out ACS - CXR: No active disease - Cardiology consulted (Dr. Elizabeth); recommendations appreciated - EKG: NSR at [address]-segment elevations or depressions, no T-wave inversions, normal intervals. - Troponin Q6H: negative x3 - Risk factors: HTN; Patient admits to recent cocaine use, smoking tobacco - Most recent ECHO 02/12: EF 60.3%, mild tricuspid regurg, mild pulmonary HTN, normal LV wall thickness, normal LV function Mild Transaminitis, resolved - Trend LFTs with daily CMP - Monitor Substance Abuse; Cocaine - UDS negative; Patient admits to cocaine use ETOH Abuse - CIWA 0 - Ativan 1mg PO PRN - Seizure, fall, aspiration precautions - Monitor History of Hypertension - Home med: Amlodipine (HOLD) - Start: Lisinopril 2.5mg PO Daily - Monitor Ppx: - GI: protonix 40mg PO daily - DVT: SCD, Lovenox 40mg SC daily Patient seen and case discussed in detail with Dr. Nusrat Boswell PGY1 <Luisito Silverio - Last Filed: 12/21/18 14:17> Objective - Vital Signs/Intake and Output Vital Signs (last 24 hours): Temp Pulse Resp BP Pulse Ox 98.1 F 78 18 109/77 100 12/21/18 08:22 12/21/18 08:22 12/21/18 08:22 12/21/18 08:22 12/21/18 08:22 Intake and Output: 12/21/18 12/21/18 06:59 18:59 Intake Total 0 Output Total 700 Balance -700 - Medications Medications: Current Medications Acetaminophen (Tylenol 325mg Tab) 650 mg PO Q6H PRN PRN Reason: Fever >100.4 F Aspirin (Ecotrin) 81 mg PO DAILY [facility] Last Admin: 12/21/18 11:36 Dose: 81 mg Enoxaparin Sodium (Lovenox) 40 mg SC DAILY [facility]; Protocol Last Admin: 12/21/18 11:36 Dose: 40 mg Ceftriaxone Sodium (Rocephin 1 Gram Ivpb) 1 gm in 100 mls @ 100 mls/hr IVPB DAILY [facility]; Protocol Last Admin: 12/21/18 11:36 Dose: 100 mls/hr Lisinopril (Zestril) 2.5 mg PO DAILY [facility] Last Admin: 12/21/18 11:37 Dose: 2.5 mg Metronidazole (Flagyl) 500 mg PO Q8 [facility]; Protocol Morphine Sulfate (Morphine) 1 mg IVP Q4H PRN PRN Reason: Pain, severe (8-10) Last Admin: 12/20/18 15:36 Dose: 1 mg Pantoprazole Sodium (Protonix Ec Tab) 40 mg PO 0600 [facility] Last Admin: 12/21/18 06:19 Dose: 40 mg Vancomycin HCl (Vancocin 25 Mg/Ml (Oral Use)) 125 mg PO QID [facility]; Protocol Last Admin: 12/21/18 11:35 Dose: 125 mg - Labs Labs: 12/21/18 07:00 12/21/18 07:00 Attending/Attestation - Attestation I have personally seen and examined this patient.: Yes I have fully participated in the care of the patient.: Yes I have reviewed all pertinent clinical information, including history, physical exam and plan: Yes Notes (Text): 12/21/18 14:16 Medical record note made by the resident after discussion with my direction and input after the patient was personally seen and examined by me. I have reviewed the chart and agree that the record accurately reflects by personal performance of the history, physical exam, data review, and medical decision-making, in the course for the patient. I have also personally directed the plan of care.
[2018-12-21] MEDS: Pantoprazole 40 mg EC Tab PO SCH (06:19)
[2018-12-21] MEDS: metroNIDAZOLE IV 500 mg/100 ml 500 MG/100 ML BAG IVPB SCH (06:19)
[2018-12-21 07:52] LABS: BASO # 0.01 K/mm3 (0.0-2.0); BASO % 0.2 % (0.0-3.0); EOS # 0.1 (0.0-0.7); EOS % 1.5 % (1.5-5.0); HEMOGLOBIN 11.7 g/dL (14.0-18.0); LYMPH # 1.2 (1.2-3.4); LYMPH % 29.6 % (22.0-35.0); MEAN CELL VOLUME 90.8 fl (80.0-105.0); MEAN CORPUSCULAR HEMOGLOBIN 29.1 pg (25.0-35.0); MEAN CORPUSCULAR HGB CONC 32.1 g/dl (31.0-37.0); MEAN PLATELET VOLUME 10.8 fl (7.0-11.0); MONO # 0.6 (0.1-0.6); MONO % 13.3 % (1.0-6.0); RBC 4.02 10^6/uL (3.5-6.1); RED CELL DISTRIBUTION WIDTH 13.3 % (11.5-14.5); WHITE BLOOD COUNT 4.1 10^3/uL (4.5-11.0)
[2018-12-21 08:04] LABS: ALB/GLOB RATIO 1.6 (1.1-1.8); ALBUMIN 4.4 g/dL (3.0-4.8); ALT/SGPT 28 U/L (7-56); AST/SGOT 32 U/L (17-59); BLOOD UREA NITROGEN 18 mg/dL (7-21); CALCIUM 9.6 mg/dL (8.4-10.5); GFR NON-AFRICAN AMERICAN > 60
[2018-12-21 08:23] VITALS: O2SAT 100
[2018-12-21] MEDS: Vancomycin 25 MG/ML PO SCH ×4 (11:35→21:32)
[2018-12-21] MEDS: cefTRIAXone 1 gm 1 GM/100 ML BAG IVPB SCH (11:36)
[2018-12-21] MEDS: Enoxaparin 40 mg Syringe SC SCH (11:36)
--- NOTE | 2018-12-21 12:17 | CP.PCM.PN ---
<Chandler Boswell - Last Filed: 12/21/18 12:14> Subjective - Date & Time of Evaluation Date of Evaluation: 12/21/18 Time of Evaluation: 12:14 - Subjective Subjective: PGY1 Medicine Progress Note for Dr. Silverio Patient was seen and evaluated at bedside this morning. No acute events overnight. Patient continues to have bouts of watery diarrhea overnight/this morning. Patient states he had 7 bouts of watery diarrhea past midnight. Patient is tolerating regular diet. Patient denies chest pain. Patient otherwise denies shortness of breath, numbness/tingling, weakness, nausea, vomiting, hematochezia, dysuria, headache, fever, and/or chills. Objective - Vital Signs/Intake and Output Vital Signs (last 24 hours): Temp Pulse Resp BP Pulse Ox 98.1 F 78 18 109/77 100 12/21/18 08:22 12/21/18 08:22 12/21/18 08:22 12/21/18 08:22 12/21/18 08:22 Intake and Output: 12/21/18 12/21/18 06:59 18:59 Intake Total 0 Output Total 700 Balance -700 - Medications Medications: Current Medications Acetaminophen (Tylenol 325mg Tab) 650 mg PO Q6H PRN PRN Reason: Fever >100.4 F Aspirin (Ecotrin) 81 mg PO DAILY [facility] Last Admin: 12/21/18 11:36 Dose: 81 mg Enoxaparin Sodium (Lovenox) 40 mg SC DAILY [facility]; Protocol Last Admin: 12/21/18 11:36 Dose: 40 mg Ceftriaxone Sodium (Rocephin 1 Gram Ivpb) 1 gm in 100 mls @ 100 mls/hr IVPB DAILY [facility]; Protocol Last Admin: 12/21/18 11:36 Dose: 100 mls/hr Lisinopril (Zestril) 2.5 mg PO DAILY [facility] Last Admin: 12/21/18 11:37 Dose: 2.5 mg Metronidazole (Flagyl) 500 mg PO Q8 [facility]; Protocol Morphine Sulfate (Morphine) 1 mg IVP Q4H PRN PRN Reason: Pain, severe (8-10) Last Admin: 12/20/18 15:36 Dose: 1 mg Pantoprazole Sodium (Protonix Ec Tab) 40 mg PO 0600 [facility] Last Admin: 12/21/18 06:19 Dose: 40 mg Vancomycin HCl (Vancocin 25 Mg/Ml (Oral Use)) 125 mg PO QID [facility]; Protocol Last Admin: 12/21/18 11:35 Dose: 125 mg - Labs Labs: 12/21/18 07:00 12/21/18 07:00 - Additional Findings Additional findings: - Constitutional Appears: Non-toxic, No Acute Distress - Head Exam Head Exam: ATRAUMATIC, NORMAL INSPECTION, NORMOCEPHALIC - Eye Exam Eye Exam: EOMI, Normal appearance, PERRL Pupil Exam: NORMAL ACCOMODATION - ENT Exam ENT Exam: Mucous Membranes Moist, Normal Exam - Neck Exam Neck exam: Positive for: Normal Inspection - Respiratory Exam Respiratory Exam: Clear to Auscultation Bilateral, NORMAL BREATHING PATTERN. absent: Accessory Muscle Use, Prolonged Expiratory Phase, Wheezes, Respiratory Distress, Stridor - Cardiovascular Exam Cardiovascular Exam: REGULAR RHYTHM, RRR, +S1, +S2. absent: Bradycardia, Tachycardia, Gallop, Irregular Rhythm, Systolic Murmur - GI/Abdominal Exam GI & Abdominal Exam: Normal Bowel Sounds, Soft absent: Tenderness, Bruit, Distended, Firm, Guarding, Mass, Organomegaly - Extremities Exam Extremities exam: Positive for: full ROM, normal inspection. Negative for: calf tenderness, joint swelling - Back Exam Back exam: NORMAL INSPECTION - Neurological Exam Neurological exam: Alert, CN II-XII Intact, Oriented x3 - Psychiatric Exam Psychiatric exam: Normal Affect, Normal Mood - Skin Skin Exam: Dry, Intact, Normal Color, Warm Assessment and Plan - Assessment and Plan (Free Text) Assessment: 43 year old male with PMH of HTN, colitis (due to polysubstance abuse), alcohol abuse, cocaine abuse & anxiety who presents to [facility] complaining of chest pain. 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 Patient positive for C-diff antigen, but negative for C-diff toxin. Abdominal pain Likely Secondary to Ischemic Colitis Likely Secondary to Cocaine Use - CT abdomen / Pelvis: Nonspecific colitis involving the transverse, descending and rectosigmoid colon. Possible evidence of old/prior colitis such as UC involving the cecum and proximal ascending colon. No other acute abnormality. - Patient afebrile - No leukocytosis - Hemoglobin stable - Stool Culture ordered - C. Diff stool toxins ordered - UDS negative; Patient admits to cocaine use 2 days prior to arrival - Blood culture ordered - Regular diet - tolerating well - Antibiotics Continue: IV Rocephin Discontinued: Flagyl 500mg IVP Q8H Start: Flagyl 500mg PO Q8H Continue Vanco 125mg PO Q6H (Day 12/07) - Protonix daily - Morphine 1mg IV Q4H PRN for severe pain Hypokalemia, resolved - Replete as needed - Monitor CMP Chest pain; Rule-Out ACS - CXR: No active disease - Cardiology consulted (Dr. Elizabeth); recommendations appreciated - EKG: NSR at [address]-segment elevations or depressions, no T-wave inversions, normal intervals. - Troponin Q6H: negative x3 - Risk factors: HTN; Patient admits to recent cocaine use, smoking tobacco - Most recent ECHO 02/12: EF 60.3%, mild tricuspid regurg, mild pulmonary HTN, normal LV wall thickness, normal LV function Mild Transaminitis, resolved - Trend LFTs with daily CMP - Monitor Substance Abuse; Cocaine - UDS negative; Patient admits to cocaine use ETOH Abuse - CIWA 0 - Ativan 1mg PO PRN - Seizure, fall, aspiration precautions - Monitor History of Hypertension - Home med: Amlodipine (HOLD) - Start: Lisinopril 2.5mg PO Daily - Monitor Ppx: - GI: protonix 40mg PO daily - DVT: SCD, Lovenox 40mg SC daily Patient seen and case discussed in detail with Dr. Nusrat Boswell PGY1 <Luisito Silverio - Last Filed: 12/21/18 14:16> Objective - Vital Signs/Intake and Output Vital Signs (last 24 hours): Temp Pulse Resp BP Pulse Ox 98.1 F 78 18 109/77 100 12/21/18 08:22 12/21/18 08:22 12/21/18 08:22 12/21/18 08:22 12/21/18 08:22 Intake and Output: 12/21/18 12/21/18 06:59 18:59 Intake Total 0 Output Total 700 Balance -700 - Medications Medications: Current Medications Acetaminophen (Tylenol 325mg Tab) 650 mg PO Q6H PRN PRN Reason: Fever >100.4 F Aspirin (Ecotrin) 81 mg PO DAILY [facility] Last Admin: 12/21/18 11:36 Dose: 81 mg Enoxaparin Sodium (Lovenox) 40 mg SC DAILY [facility]; Protocol Last Admin: 12/21/18 11:36 Dose: 40 mg Ceftriaxone Sodium (Rocephin 1 Gram Ivpb) 1 gm in 100 mls @ 100 mls/hr IVPB DAILY [facility]; Protocol Last Admin: 12/21/18 11:36 Dose: 100 mls/hr Lisinopril (Zestril) 2.5 mg PO DAILY [facility] Last Admin: 12/21/18 11:37 Dose: 2.5 mg Metronidazole (Flagyl) 500 mg PO Q8 [facility]; Protocol Morphine Sulfate (Morphine) 1 mg IVP Q4H PRN PRN Reason: Pain, severe (8-10) Last Admin: 12/20/18 15:36 Dose: 1 mg Pantoprazole Sodium (Protonix Ec Tab) 40 mg PO 0600 [facility] Last Admin: 12/21/18 06:19 Dose: 40 mg Vancomycin HCl (Vancocin 25 Mg/Ml (Oral Use)) 125 mg PO QID [facility]; Protocol Last Admin: 12/21/18 11:35 Dose: 125 mg - Labs Labs: 12/21/18 07:00 12/21/18 07:00 Attending/Attestation - Attestation I have personally seen and examined this patient.: Yes I have fully participated in the care of the patient.: Yes I have reviewed all pertinent clinical information, including history, physical exam and plan: Yes Notes (Text): 12/21/18 14:12 Medical record note made by the resident after discussion with my direction and input after the patient was personally seen and examined by me. I have reviewed the chart and agree that the record accurately reflects by personal performance of the history, physical exam, data review, and medical decision-making, in the course for the patient. I have also personally directed the plan of care. 43 year old male with PMH of HTN, , chronic colitis (due to polysubstance abuse?), alcohol abuse, cocaine abuse & anxiety who presents to [facility] complaining of chest pain and abdominal pain. CT abdomen / Pelvis: Nonspecific colitis involving the transverse, descending and rectosigmoid colon. Serial troponins were normal.ACS is rule out. Patient was recently treated for possible C diff colitis but did not complete treatment, now is having diarrhea, stool is positive for C-diff antigen, but negative for C-diff toxin. He is started on PO Vancomycin and Flagyl, Patient had 9 loose stools in last 24 hour.We will continue monitoring. Continue IV Morphine for Pain. Once patient abdominal pain and diarrhea will get better, he can be discharged home. Alcohol withdrawals are better. Issue of ongoing alcohol and drug abuse was discussed in detail with patient. Prognosis is guarded due to ongoing alcohol,drug abuse and non compliance.
[2018-12-22] MEDS: Pantoprazole 40 mg EC Tab PO SCH (05:31)
[2018-12-22 07:02] LABS: BASO # 0.01 K/mm3 (0.0-2.0); BASO % 0.2 % (0.0-3.0); EOS # 0.1 (0.0-0.7); EOS % 1.4 % (1.5-5.0); HEMOGLOBIN 12.1 g/dL (14.0-18.0); LYMPH # 1.4 (1.2-3.4); LYMPH % 32.5 % (22.0-35.0); MEAN CELL VOLUME 91.3 fl (80.0-105.0); MEAN CORPUSCULAR HEMOGLOBIN 29.4 pg (25.0-35.0); MEAN CORPUSCULAR HGB CONC 32.2 g/dl (31.0-37.0); MEAN PLATELET VOLUME 10.8 fl (7.0-11.0); MONO # 0.7 (0.1-0.6); MONO % 16.8 % (1.0-6.0); RBC 4.12 10^6/uL (3.5-6.1); RED CELL DISTRIBUTION WIDTH 13.4 % (11.5-14.5); WHITE BLOOD COUNT 4.3 10^3/uL (4.5-11.0)
[2018-12-22 07:56] LABS: ALB/GLOB RATIO 1.5 (1.1-1.8); ALBUMIN 4.4 g/dL (3.0-4.8); ALT/SGPT 35 U/L (7-56); AST/SGOT 44 U/L (17-59); BLOOD UREA NITROGEN 23 mg/dL (7-21); CALCIUM 9.7 mg/dL (8.4-10.5); GFR NON-AFRICAN AMERICAN > 60
[2018-12-22] MEDS: cefTRIAXone 1 gm 1 GM/100 ML BAG IVPB SCH (10:22)
[2018-12-22] MEDS: Enoxaparin 40 mg Syringe SC SCH (10:24)
[2018-12-22] MEDS: Vancomycin 25 MG/ML PO SCH (10:25)
[2018-12-22 17:02] VITALS: BP 100/60; PULSE 70; RESP 18; TEMP 98
--- NOTE | 2018-12-22 18:40 | CP.PCM.DIS ---
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 Comment: Physician Instructions: Reason For Exam: EVALUATION Transition In Care/Readmission Reduction Routine Comment: Physician Instructions: Reason For Exam: EVALUATION 12/18/18 20:00 Social Work Referral Routine Comment: DISCHARGE PLANNING ,ETOH REHAB,AAA,MULTIPLE ADMISS Physician Instructions: Reason For Exam: EVALUATION Time Spent in preparation of Discharge (in minutes): 60 Diagnosis - Discharge Diagnosis (1) Colitis Status: Acute Hospital Course - Lab Results Lab Results: Micro Results 12/18/18 14:00 Blood-Venous Blood Culture - Preliminary NO GROWTH AFTER 4 DAYS 12/19/18 08:50 Stool Stool Culture - Final NO SALMONELLA, SHIGELLA OR CAMPYLOBACTER ISOLATED. 12/19/18 08:50 Stool C. difficile Antigen & Toxins A,B - Final 12/18/18 13:55 Urine,Clean Catch Urine Culture - Final No Growth (<1,000 CFU/ML) Most Recent Lab Values WBC 4.3 10^3/uL (4.5-11.0) L 12/22/18 06:00 RBC 4.12 10^6/uL (3.5-6.1) 12/22/18 06:00 Hgb 12.1 g/dL (14.0-18.0) L 12/22/18 06:00 Hct 37.6 % (42.0-52.0) L 12/22/18 06:00 MCV 91.3 fl (80.0-105.0) 12/22/18 06:00 MCH 29.4 pg (25.0-35.0) 12/22/18 06:00 MCHC 32.2 g/dl (31.0-37.0) 12/22/18 06:00 RDW 13.4 % (11.5-14.5) 12/22/18 06:00 Plt Count 208 10^3/uL (120.0-450.0) 12/22/18 06:00 MPV 10.8 fl (7.0-11.0) 12/22/18 06:00 Neut % (Auto) 49.1 % (50.0-68.0) L 12/22/18 06:00 Lymph % (Auto) 32.5 % (22.0-35.0) 12/22/18 06:00 [place] % (Auto) 16.8 % (1.0-6.0) H 12/22/18 06:00 Eos % (Auto) 1.4 % (1.5-5.0) L 12/22/18 06:00 Baso % (Auto) 0.2 % (0.0-3.0) 12/22/18 06:00 Lymph # (Auto) 1.4 (1.2-3.4) 12/22/18 06:00 [place] # (Auto) 0.7 (0.1-0.6) H 12/22/18 06:00 Eos # (Auto) 0.1 (0.0-0.7) 12/22/18 06:00 Baso # (Auto) 0.01 K/mm3 (0.0-2.0) 12/22/18 06:00 Absolute Neuts (auto) 2.13 (1.4-6.5) 12/22/18 06:00 Sodium 136 mmol/L (132-148) 12/22/18 06:00 Potassium 4.3 mmol/L (3.6-5.0) 12/22/18 06:00 Chloride 102 mmol/L (98-107) 12/22/18 06:00 Carbon Dioxide 24 mmol/L (21-33) 12/22/18 06:00 Anion Gap 14 (10-20) 12/22/18 06:00 BUN 23 mg/dL (7-21) H 12/22/18 06:00 Creatinine 0.9 mg/dl (0.8-1.5) 12/22/18 06:00 Est GFR ( Amer) > 60 12/22/18 06:00 Est GFR (Non-Af Amer) > 60 12/22/18 06:00 Random Glucose 87 mg/dL (70-110) 12/22/18 06:00 Calcium 9.7 mg/dL (8.4-10.5) 12/22/18 06:00 Phosphorus 3.3 mg/dL (2.5-4.5) 12/19/18 14:40 Magnesium 1.7 mg/dL (1.7-2.2) 12/19/18 06:30 Total Bilirubin < 0.1 mg/dL (0.2-1.3) L 12/22/18 06:00 AST 44 U/L (17-59) 12/22/18 06:00 ALT 35 U/L (7-56) 12/22/18 06:00 Alkaline Phosphatase 42 U/L (38-126) 12/22/18 06:00 Total Creatine Kinase 322 U/L (35-230) H 12/18/18 14:10 CK-MB (CK-2) 1.7 ng/mL (0.0-3.6) 12/18/18 14:10 CK-MB (CK-2) % Cancelled 12/18/18 14:10 Troponin I < 0.01 ng/mL 12/18/18 18:26 Total Protein 7.4 g/dL (5.8-8.3) 12/22/18 06:00 Albumin 4.4 g/dL (3.0-4.8) 12/22/18 06:00 Globulin 2.9 gm/dL 12/22/18 06:00 Albumin/Globulin Ratio 1.5 (1.1-1.8) 12/22/18 06:00 Lipase 65 U/L (23-300) 12/18/18 09:35 Urine Color Yellow (YELLOW) 12/18/18 13:55 Urine Appearance Clear (CLEAR) 12/18/18 13:55 Urine pH 7.0 (4.7-8.0) 12/18/18 13:55 Ur Specific [place] 1.010 (1.005-1.035) 12/18/18 13:55 Urine Protein Negative mg/dL (<30 mg/dL) 12/18/18 13:55 Urine Glucose (UA) Negative mg/dL (NEGATIVE) 12/18/18 13:55 Urine Ketones 15 mg/dL (NEGATIVE) H 12/18/18 13:55 Urine Blood Negative (NEGATIVE) 12/18/18 13:55 Urine Nitrate Negative (NEGATIVE) 12/18/18 13:55 Urine Bilirubin Negative (NEGATIVE) 12/18/18 13:55 Urine Urobilinogen 0.2 E.U./dL (<1 E.U./dL) 12/18/18 13:55 Ur Leukocyte Esterase Negative Georges/uL (NEGATIVE) 12/18/18 13:55 Urine Opiates Screen Negative (NEGATIVE) 12/18/18 13:55 Urine Methadone Screen Negative (NEGATIVE) 12/18/18 13:55 Ur Barbiturates Screen Negative (NEGATIVE) 12/18/18 13:55 Ur Phencyclidine Scrn Negative (NEGATIVE) 12/18/18 13:55 Ur Amphetamines Screen Negative (NEGATIVE) 12/18/18 13:55 U Benzodiazepines Scrn Negative (NEGATIVE) 12/18/18 13:55 U Oth Cocaine Metabols Negative (NEGATIVE) 12/18/18 13:55 U Cannabinoids Screen Negative (NEGATIVE) 12/18/18 13:55 Alcohol, Quantitative < 10 mg/dL (0-10) 12/18/18 14:00 - Hospital Course Hospital Course: Radha Garner, PGY-1, Internal Medicine Discharge Summary for Dr. Gill 43 year old male with PMH of HTN, colitis, alcohol abuse, cocaine abuse and anxiety presented to ED with complaints of substernal chest pain radiating to the left neck, SOB, nausea, vomiting, diarrhea x2 and LLQ abdominal pain that started the morning of presentation. Patient admitted to consuming hard alcohol daily and using cocaine 2 days prior to presentation. This is the patients fifth admission to [facility] in the past two months for similar symptoms. Patient was observed to rule out ACS. Troponins were trended and were negative x 3. EKG showed normal sinus rhythm. CXR revealed no abnormalities. Pt was treated for alcohol withdrawal with Ativan 1mg PO PRN. He was given a banana bag, placed on CIWA protocol, seizure and fall precautions. Patient did not require PRN Ativan. CIWA scores were 0 throughout admission. Patient was started on MVI, thiamine, and folic acid for nutritional supplementation. Patient also reported nonbloody diarrhea episodes. Abdominal CT showed nonspecific colitis involving transverse, descending, and rectosigmoid colon. Stool culture and C. Dif stool toxin were ordered. Patient was positive for C. Dif stool antigen but negative for stool toxin. Patient was initially started on PO Vancomycin, IV Rocephin & PO Flagyl. He was discharged with Flagyl PO for outpatient treatment of C. Diff. Patient reported improved stool caliber today. Stool and blood cultures were both negative. Patient was stable and ready for discharge on 12/22. He reported feeling better this morning with no acute complaints. He was told to follow up with PCP. He was instructed to continue his home medication regimen and flagyl for 3 days. He was once again strongly advised on cessation of alcohol. In addition, he was told to return to the emergency department if he had any recurring or new concerning symptoms. - Date & Time of H&P Date of H&P: 12/18/18 Time of H&P: 13:11 Discharge Exam - Head Exam Head Exam: ATRAUMATIC, NORMAL INSPECTION, NORMOCEPHALIC - Eye Exam Eye Exam: EOMI, PERRL - Respiratory Exam Respiratory Exam: Clear to PA & Lateral, NORMAL BREATHING PATTERN - Cardiovascular Exam Cardiovascular Exam: REGULAR RHYTHM, RRR - GI/Abdominal Exam GI & Abdominal Exam: Normal Bowel Sounds, Soft, Unremarkable. absent: Tenderness - Extremities Exam Extremities exam: full ROM - Neurological Exam Neurological exam: Alert, CN II-XII Intact, Oriented x3 - Skin Skin Exam: Dry, Intact Discharge Plan - Discharge Medications Prescriptions: RX: metroNIDAZOLE [Flagyl] 500 mg PO Q8 3 Days #9 tab - Follow Up Plan Condition: GOOD Disposition: HOME/ ROUTINE Instructions: Colitis (DC) Additional Instructions: Please follow up with your PCP in 7-14 days. Please follow up with Dr Elizabeth, Cardiology for Outpatient Stress test on 01/09/19. Please take all medications as prescribed. Take your prescribed flagyl for 3 days to complete full 7 days for C. Difficile treatment. Please refrain from using alcohol with your antibiotic as explained to you. Please return to the emergency department if you have any new or concerning symptoms. 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 Comment: Physician Instructions: Reason For Exam: EVALUATION Transition In Care/Readmission Reduction Routine Comment: Physician Instructions: Reason For Exam: EVALUATION 12/18/18 20:00 Social Work Referral Routine Comment: DISCHARGE PLANNING ,ETOH REHAB,AAA,MULTIPLE ADMISS Physician Instructions: Reason For Exam: EVALUATION Time Spent in preparation of Discharge (in minutes): 45 Hospital Course - Lab Results Lab Results: Micro Results 12/18/18 14:00 Blood-Venous Blood Culture - Preliminary NO GROWTH AFTER 4 DAYS 12/19/18 08:50 Stool Stool Culture - Final NO SALMONELLA, SHIGELLA OR CAMPYLOBACTER ISOLATED. 12/19/18 08:50 Stool C. difficile Antigen & Toxins A,B - Final 12/18/18 13:55 Urine,Clean Catch Urine Culture - Final No Growth (<1,000 CFU/ML) Most Recent Lab Values WBC 4.3 10^3/uL (4.5-11.0) L 12/22/18 06:00 RBC 4.12 10^6/uL (3.5-6.1) 12/22/18 06:00 Hgb 12.1 g/dL (14.0-18.0) L 12/22/18 06:00 Hct 37.6 % (42.0-52.0) L 12/22/18 06:00 MCV 91.3 fl (80.0-105.0) 12/22/18 06:00 MCH 29.4 pg (25.0-35.0) 12/22/18 06:00 MCHC 32.2 g/dl (31.0-37.0) 12/22/18 06:00 RDW 13.4 % (11.5-14.5) 12/22/18 06:00 Plt Count 208 10^3/uL (120.0-450.0) 12/22/18 06:00 MPV 10.8 fl (7.0-11.0) 12/22/18 06:00 Neut % (Auto) 49.1 % (50.0-68.0) L 12/22/18 06:00 Lymph % (Auto) 32.5 % (22.0-35.0) 12/22/18 06:00 [place] % (Auto) 16.8 % (1.0-6.0) H 12/22/18 06:00 Eos % (Auto) 1.4 % (1.5-5.0) L 12/22/18 06:00 Baso % (Auto) 0.2 % (0.0-3.0) 12/22/18 06:00 Lymph # (Auto) 1.4 (1.2-3.4) 12/22/18 06:00 [place] # (Auto) 0.7 (0.1-0.6) H 12/22/18 06:00 Eos # (Auto) 0.1 (0.0-0.7) 12/22/18 06:00 Baso # (Auto) 0.01 K/mm3 (0.0-2.0) 12/22/18 06:00 Absolute Neuts (auto) 2.13 (1.4-6.5) 12/22/18 06:00 Sodium 136 mmol/L (132-148) 12/22/18 06:00 Potassium 4.3 mmol/L (3.6-5.0) 12/22/18 06:00 Chloride 102 mmol/L (98-107) 12/22/18 06:00 Carbon Dioxide 24 mmol/L (21-33) 12/22/18 06:00 Anion Gap 14 (10-20) 12/22/18 06:00 BUN 23 mg/dL (7-21) H 12/22/18 06:00 Creatinine 0.9 mg/dl (0.8-1.5) 12/22/18 06:00 Est GFR ( Amer) > 60 12/22/18 06:00 Est GFR (Non-Af Amer) > 60 12/22/18 06:00 Random Glucose 87 mg/dL (70-110) 12/22/18 06:00 Calcium 9.7 mg/dL (8.4-10.5) 12/22/18 06:00 Phosphorus 3.3 mg/dL (2.5-4.5) 12/19/18 14:40 Magnesium 1.7 mg/dL (1.7-2.2) 12/19/18 06:30 Total Bilirubin < 0.1 mg/dL (0.2-1.3) L 12/22/18 06:00 AST 44 U/L (17-59) 12/22/18 06:00 ALT 35 U/L (7-56) 12/22/18 06:00 Alkaline Phosphatase 42 U/L (38-126) 12/22/18 06:00 Total Creatine Kinase 322 U/L (35-230) H 12/18/18 14:10 CK-MB (CK-2) 1.7 ng/mL (0.0-3.6) 12/18/18 14:10 CK-MB (CK-2) % Cancelled 12/18/18 14:10 Troponin I < 0.01 ng/mL 12/18/18 18:26 Total Protein 7.4 g/dL (5.8-8.3) 12/22/18 06:00 Albumin 4.4 g/dL (3.0-4.8) 12/22/18 06:00 Globulin 2.9 gm/dL 12/22/18 06:00 Albumin/Globulin Ratio 1.5 (1.1-1.8) 12/22/18 06:00 Lipase 65 U/L (23-300) 12/18/18 09:35 Urine Color Yellow (YELLOW) 12/18/18 13:55 Urine Appearance Clear (CLEAR) 12/18/18 13:55 Urine pH 7.0 (4.7-8.0) 12/18/18 13:55 Ur Specific [place] 1.010 (1.005-1.035) 12/18/18 13:55 Urine Protein Negative mg/dL (<30 mg/dL) 12/18/18 13:55 Urine Glucose (UA) Negative mg/dL (NEGATIVE) 12/18/18 13:55 Urine Ketones 15 mg/dL (NEGATIVE) H 12/18/18 13:55 Urine Blood Negative (NEGATIVE) 12/18/18 13:55 Urine Nitrate Negative (NEGATIVE) 12/18/18 13:55 Urine Bilirubin Negative (NEGATIVE) 12/18/18 13:55 Urine Urobilinogen 0.2 E.U./dL (<1 E.U./dL) 12/18/18 13:55 Ur Leukocyte Esterase Negative Georges/uL (NEGATIVE) 12/18/18 13:55 Urine Opiates Screen Negative (NEGATIVE) 12/18/18 13:55 Urine Methadone Screen Negative (NEGATIVE) 12/18/18 13:55 Ur Barbiturates Screen Negative (NEGATIVE) 12/18/18 13:55 Ur Phencyclidine Scrn Negative (NEGATIVE) 12/18/18 13:55 Ur Amphetamines Screen Negative (NEGATIVE) 12/18/18 13:55 U Benzodiazepines Scrn Negative (NEGATIVE) 12/18/18 13:55 U Oth Cocaine Metabols Negative (NEGATIVE) 12/18/18 13:55 U Cannabinoids Screen Negative (NEGATIVE) 12/18/18 13:55 Alcohol, Quantitative < 10 mg/dL (0-10) 12/18/18 14:00 Attending/Attestation - Attestation I have personally seen and examined this patient.: Yes I have fully participated in the care of the patient.: Yes I have reviewed all pertinent clinical information, including history, physical exam and plan: Yes
== END 2018-12-22 18:40 | disposition home or self-care (01) | DRG 813 ==
LOC: ED 08:57 → ERH 12:30 → 3RSO 15:38 → OBSVTOIN 12-20 13:19
PROVIDERS: ADMIT Internal Medicine; ATTEND Internal Medicine
DX: K52.9 Noninfective gastroenteritis and colitis, unspecified (principal); E87.6 Hypokalemia; F10.239 Alcohol dependence with withdrawal, unspecified; F14.10 Cocaine abuse, uncomplicated; I07.1 Rheumatic tricuspid insufficiency; E78.00 Pure hypercholesterolemia, unspecified; F17.200 Nicotine dependence, unspecified, uncomplicated; F41.0 Panic disorder [episodic paroxysmal anxiety]; I10 Essential (primary) hypertension; I27.20 Pulmonary hypertension, unspecified; K21.9 Gastro-esophageal reflux disease without esophagitis; Z82.0 Family history of epilepsy and other diseases of the nervous system; Z82.3 Family history of stroke; Z91.19 Patient's noncompliance with other medical treatment and regimen

== ENCOUNTER 2018-12-31 06:13 | Emergency (ER) | payer MEDICAID ==
[2018-12-31 06:13] VITALS: BMI 20.9
[2018-12-31] MEDS ORDERED: Sodium Chloride 0.9% 1,000 ML IV STA (07:36)
[2018-12-31] MEDS ORDERED: Alum-Mag Hydrox-Simethicone Susp (30 mL) PO STA (07:36)
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
[2018-12-31] MEDS ORDERED: Atrop/Hyosc/Scopal/PB Elixir (120 ml) PO STA (07:38)
[2018-12-31 07:55] LABS: BASO # 0.02 K/mm3 (0.0-2.0); BASO % 0.6 % (0.0-3.0); EOS % 0.6 % (1.5-5.0); HEMOGLOBIN 11.1 g/dL (14.0-18.0); LYMPH # 1.3 (1.2-3.4); LYMPH % 39.9 % (22.0-35.0); MEAN CELL VOLUME 89.5 fl (80.0-105.0); MEAN CORPUSCULAR HEMOGLOBIN 29.1 pg (25.0-35.0); MEAN CORPUSCULAR HGB CONC 32.5 g/dl (31.0-37.0); MEAN PLATELET VOLUME 10.4 fl (7.0-11.0); MONO # 0.5 (0.1-0.6); MONO % 14.2 % (1.0-6.0); RBC 3.82 10^6/uL (3.5-6.1); RED CELL DISTRIBUTION WIDTH 13.6 % (11.5-14.5); WHITE BLOOD COUNT 3.2 10^3/uL (4.5-11.0)
[2018-12-31 08:14] LABS: ALB/GLOB RATIO 1.5 (1.1-1.8); ALBUMIN 4.7 g/dL (3.0-4.8); ALT/SGPT 74 U/L (7-56); AST/SGOT 78 U/L (17-59); BLOOD UREA NITROGEN 16 mg/dL (7-21); CALCIUM 9.8 mg/dL (8.4-10.5); GFR NON-AFRICAN AMERICAN > 60; LIPASE 209 U/L (23-300)
[2018-12-31 08:23] LABS: TROPONIN I < 0.01 ng/mL
[2018-12-31 08:28] LABS: CK-MB 2.5 ng/mL (0.0-3.6)
--- NOTE | 2018-12-31 09:09 | RAD ---
Date of service: 12/31/2018 HISTORY: pain radiating to chest COMPARISON: 12/18/2018 FINDINGS: LUNGS: No active pulmonary disease. PLEURA: No significant pleural effusion identified, no pneumothorax apparent. CARDIOVASCULAR: No aortic atherosclerotic calcification present. Normal cardiac size. No pulmonary vascular congestion. OSSEOUS STRUCTURES: No significant abnormalities. VISUALIZED UPPER ABDOMEN: Normal. OTHER FINDINGS: None. IMPRESSION: No active disease.
[2018-12-31] MEDS ORDERED: Iohexol 350 MG/100 ML VIAL ONE (09:52)
--- NOTE | 2018-12-31 10:40 | CT ---
Date of service: 12/31/2018 PROCEDURE: CT Abdomen and Pelvis with contrast HISTORY: abd pain COMPARISON: 12/18/2018 TECHNIQUE: Contrast dose: 100 cc of Omni 350 Radiation dose: Total exam DLP = 271.25 mGy-cm. This CT exam was performed using one or more of the following dose reduction techniques: Automated exposure control, adjustment of the mA and/or kV according to patient size, and/or use of iterative reconstruction technique. FINDINGS: LOWER THORAX: Unremarkable. LIVER: Unremarkable. No gross lesion or ductal dilatation. GALLBLADDER AND BILE DUCTS: Unremarkable. PANCREAS: Unremarkable. No gross lesion or ductal dilatation. SPLEEN: Unremarkable. ADRENALS: Unremarkable. No mass. KIDNEYS AND URETERS: Unremarkable. No hydronephrosis. No solid mass. VASCULATURE: Unremarkable. No aortic aneurysm. No aortic atherosclerotic calcification or mural plaque present. BOWEL: There is mild mural thickening in the descending colon similar to the previous study. Findings are consistent with colitis. APPENDIX: Normal appendix. PERITONEUM: Unremarkable. No free fluid. No free air. LYMPH NODES: Unremarkable. No enlarged lymph nodes. BLADDER: Unremarkable. REPRODUCTIVE: Unremarkable. BONES: No acute fracture. OTHER FINDINGS: None. IMPRESSION: There is mild mural thickening in the descending colon similar to the previous study. Findings are consistent with colitis.
[2018-12-31 11:23] VITALS: BP 131/81; PULSE 74; RESP 20; TEMP 98; O2SAT 100
--- NOTE | 2018-12-31 13:56 | CARD ---
APPROVED REPORT Date of service: 12/31/2018 EKG Measurement Heart [id number] <Conclusion> Normal sinus rhythm Moderate voltage criteria for LVH, may be normal variant Borderline ECG
== END 2018-12-31 11:24 | disposition home or self-care (01) ==
LOC: ED 06:13
DX: K52.9 Noninfective gastroenteritis and colitis, unspecified (principal); I10 Essential (primary) hypertension; F41.9 Anxiety disorder, unspecified; F17.210 Nicotine dependence, cigarettes, uncomplicated
CPT/HCPCS: 71045; 74177; 80053; 80320; 82550; 82553; 83690; 84484; 85025; 93005; 96361; 96374; 96375; 99283; J2405; J7030; Q9967

== ENCOUNTER 2019-01-07 15:30 | Emergency (ER) | payer MEDICAID ==
[2019-01-07 15:30] VITALS: BMI 20.9
[2019-01-07] MEDS ORDERED: Alum-Mag Hydrox-Simethicone Susp (30 mL) PO STA (16:05)
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
[2019-01-07 16:57] VITALS: RESP 18; TEMP 98.2
[2019-01-07 17:00] LABS: BASO # 0.02 K/mm3 (0.0-2.0); BASO % 0.5 % (0.0-3.0); HEMOGLOBIN 11.8 g/dL (14.0-18.0); LYMPH # 1.3 (1.2-3.4); LYMPH % 34.5 % (22.0-35.0); MEAN CELL VOLUME 87.1 fl (80.0-105.0); MEAN CORPUSCULAR HEMOGLOBIN 28.7 pg (25.0-35.0); MEAN PLATELET VOLUME 10.4 fl (7.0-11.0); MONO # 0.3 (0.1-0.6); RBC 4.11 10^6/uL (3.5-6.1); RED CELL DISTRIBUTION WIDTH 13.3 % (11.5-14.5); WHITE BLOOD COUNT 3.7 10^3/uL (4.5-11.0)
[2019-01-07 17:12] LABS: ALB/GLOB RATIO 1.5 (1.1-1.8); ALBUMIN 4.8 g/dL (3.0-4.8); ALT/SGPT 49 U/L (7-56); AST/SGOT 63 U/L (17-59); BLOOD UREA NITROGEN 17 mg/dL (7-21); CALCIUM 9.3 mg/dL (8.4-10.5); GFR NON-AFRICAN AMERICAN > 60; LIPASE 97 U/L (23-300)
--- NOTE | 2019-01-07 17:42 | CARD ---
APPROVED REPORT Date of service: 01/07/2019 EKG Measurement Heart [id number] <Conclusion> Normal sinus rhythm Possible Left atrial enlargement Left ventricular hypertrophy Abnormal ECG
[2019-01-07 18:43] VITALS: O2SAT 100
[2019-01-07] MEDS ORDERED: Iohexol 350 MG/100 ML VIAL ONE (19:51)
[2019-01-07 20:19] LABS: BARBITURATES, UR NEGATIVE (NEGATIVE); BENZODIAZEPINES, UR NEGATIVE (NEGATIVE); OPIATES, UR NEGATIVE (NEGATIVE); PHENCYCLIDINE, UR NEGATIVE (NEGATIVE)
--- NOTE | 2019-01-07 21:33 | ED PDOC ---
Physical Exam Vital Signs Temp Pulse Resp BP Pulse Ox 01/07/19 20:31 98.2 F 92 H 18 136/84 100 01/07/19 18:36 94 H 18 123/82 100 01/07/19 15:40 98.2 F 88 18 128/82 99 Medical Decision Making ED Course and Treatment: 01/07/19 21:00 Case endorsed to me by Dr. Tejeda, pending CT, re-evaluation, and disposition. 01/07/19 21:32 CT Abdomen and Pelvis: LUNG BASES: The lung bases appear clear. No pleural effusions are seen. LIVER: Unremarkable. GALLBLADDER AND BILE DUCTS: The gallbladder appears within normal limits. No radioopaque gallstones are seen. No biliary ductal dilatation is evident. PANCREAS: Unremarkable. SPLEEN: Unremarkable. ADRENAL GLANDS: Unremarkable. KIDNEYS, URETERS, AND BLADDER: The kidneys appear within normal limits. There is no hydronephrosis or hydroureter. No urinary calculi are seen. STOMACH AND BOWEL: Thick walled fluid filled duodenum and loops of jejunum as well as ileum compatible with enteritis. Thick walled fluid filled colon is noted with involvement of all segments compatible with diffuse pancolitis. Infectious and inflammatory etiologies are considered. APPENDIX: No evidence of acute appendicitis on CT examination. PERITONEUM: No free fluid. No free air. LYMPH NODES: No lymphadenopathy is evident. REPRODUCTIVE: Unremarkable as visualized. VASCULATURE: No evidence of abdominal aortic aneurysm. BONES: No aggressive appearing osseous lesion. No acute osseous pathology evident. IMPRESSION: Enterocolitis. Infectious and inflammatory etiologies are considered. Electronically signed on Jan 07, 2019 9:22:53 PM EDT by: Crispin Vivas M.D., BRITTANY Certified By [facility] Fellowship Trained MRI and CT Specialist - Lab Interpretations Lab Results: Total Bilirubin 0.8 mg/dL (0.2-1.3) 01/07/19 16:53 AST 63 U/L (17-59) H 01/07/19 16:53 ALT 49 U/L (7-56) 01/07/19 16:53 Alkaline Phosphatase 58 U/L (38-126) 01/07/19 16:53 Total Protein 8.0 g/dL (5.8-8.3) 01/07/19 16:53 Albumin 4.8 g/dL (3.0-4.8) 01/07/19 16:53 Globulin 3.2 gm/dL 01/07/19 16:53 Albumin/Globulin Ratio 1.5 (1.1-1.8) 01/07/19 16:53 Lipase 97 U/L (23-300) 01/07/19 16:53 - RAD Interpretation Radiology Orders: 01/07/19 16:16 ABDOMEN & PELVIS [ABD & PELVIS IV CONTRAST ONLY] [CT] Stat - Medication Orders Current Medication Orders: Discontinued Medications Al Hydrox/Mg Hydrox/Simethicone (Maalox Plus 30 Ml) 30 ml PO STAT STA Stop: 01/07/19 16:06 Last Admin: 01/07/19 16:50 Dose: 30 ml Famotidine (Pepcid) 20 mg IVP STAT STA Stop: 01/07/19 16:05 Last Admin: 01/07/19 16:50 Dose: 20 mg IVP Administration Document 01/07/19 16:50 KAYLAH (Rec: 01/07/19 16:51 KAYLAH [id number]) Charges for Administration # of IVP Administrations 1 Disposition/Present on Arrival - Present on Arrival History of DVT/PE: No History of Uncontrolled Diabetes: No Urinary Catheter: No History of Decub. Ulcer: No History Surgical Site Infection Following: None - Disposition Referrals: Griselda Heard MD [Primary Care Provider] - Follow up with primary Forms: [employer] ([place])
[2019-01-07 21:49] VITALS: BP 126/83; PULSE 86
--- NOTE | 2019-01-08 09:55 | CT ---
Date of service: 01/07/2019 PROCEDURE: CT Abdomen and Pelvis with contrast HISTORY: llq abdominal pain COMPARISON: Comparison is made with the previous study dated 12/31/2018 TECHNIQUE: Contrast dose: 100 mL of Omnipaque 350 intravenously. Axial and reformatted coronal and sagittal CT images of the abdomen and pelvis were obtained after IV contrast administration Radiation dose: Total exam DLP = 249.77 mGy-cm. This CT exam was performed using one or more of the following dose reduction techniques: Automated exposure control, adjustment of the mA and/or kV according to patient size, and/or use of iterative reconstruction technique. FINDINGS: LOWER THORAX: Unremarkable. LIVER: Unremarkable. No gross lesion or ductal dilatation. GALLBLADDER AND BILE DUCTS: Unremarkable. PANCREAS: Unremarkable. No gross lesion or ductal dilatation. SPLEEN: Unremarkable. ADRENALS: Unremarkable. No mass. KIDNEYS AND URETERS: Unremarkable. No hydronephrosis. No solid mass. VASCULATURE: Unremarkable. No aortic aneurysm. No aortic atherosclerotic calcification or mural plaque present. BOWEL: Persistent large bowel wall thickening although improved compared to the previous exam. Small bowel wall thickening is also noted. No evidence of high-grade bowel obstruction. APPENDIX: No CT evidence of appendicitis. PERITONEUM: Unremarkable. No free fluid. No free air. LYMPH NODES: Unremarkable. No enlarged lymph nodes. BLADDER: Mild urinary bladder wall thickening. REPRODUCTIVE: Moderate enlargement of the prostate noted. BONES: No acute fracture. OTHER FINDINGS: None. IMPRESSION: Small and large bowel wall thickening suspicious for enterocolitis. Interval mild improvement in the previously seen left colon wall thickening compared to the prior study. Otherwise no significant interval changes. Preliminary report was submitted by [facility] Radiology contains concordant findings.
== END 2019-01-07 21:57 | disposition home or self-care (01) ==
LOC: ED 15:30
DX: K52.9 Noninfective gastroenteritis and colitis, unspecified (principal); R10.9 Unspecified abdominal pain; F17.210 Nicotine dependence, cigarettes, uncomplicated; I10 Essential (primary) hypertension
CPT/HCPCS: 74177; 80053; 80320; 80324; 80345; 80346; 80349; 80353; 80358; 80361; 83690; 83992; 85025; 93005; 96374; 99283; Q9967

== ENCOUNTER 2019-02-07 21:44 | Inpatient (IN) | payer MEDICAID ==
[2019-02-07] MEDS ORDERED: Sodium Chloride 0.9% 1,000 ML IV STA (22:29)
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
[2019-02-07 22:31] VITALS: BMI 21.9
[2019-02-07 22:53] LABS: URINE BILIRUBIN NEGATIVE (NEGATIVE); URINE BLOOD NEGATIVE (NEGATIVE); URINE GLUCOSE (UA) NEGATIVE (NEGATIVE); URINE LEUKOCYTE ESTERASE NEGATIVE Leu/uL (NEGATIVE); URINE PROTEIN TRACE mg/dL (<30 mg/dL); URINE UROBILINOGEN 0.2 E.U./dL (<1 E.U./dL)
[2019-02-07 22:54] LABS: BASO # 0.02 K/mm3 (0.0-2.0); BASO % 0.6 % (0.0-3.0); EOS % 0.6 % (1.5-5.0); HEMOGLOBIN 12.8 g/dL (14.0-18.0); LYMPH # 1.6 (1.2-3.4); LYMPH % 45.8 % (22.0-35.0); MEAN CELL VOLUME 88.4 fl (80.0-105.0); MEAN CORPUSCULAR HEMOGLOBIN 31.6 pg (25.0-35.0); MEAN CORPUSCULAR HGB CONC 35.8 g/dl (31.0-37.0); MEAN PLATELET VOLUME 10.8 fl (7.0-11.0); MONO # 0.2 (0.1-0.6); MONO % 6.8 % (1.0-6.0); RBC 4.05 10^6/uL (3.5-6.1); RED CELL DISTRIBUTION WIDTH 14.7 % (11.5-14.5); WHITE BLOOD COUNT 3.5 10^3/uL (4.5-11.0)
[2019-02-07 22:55] LABS: URINE APPEARANCE CLEAR (CLEAR); URINE COLOR YELLOW (YELLOW)
[2019-02-07 22:57] LABS: PARTIAL THROMBOPLASTIN TIME 30.3 Seconds (26.9-38.3); PROTHROMBIN TIME 11.1 SECONDS (9.4-12.5)
[2019-02-08 01:00] LABS: ALB/GLOB RATIO 1.3 (1.1-1.8); ALBUMIN 4.3 g/dL (3.0-4.8); ALT/SGPT 56 U/L (7-56); AST/SGOT 234 U/L (17-59); BLOOD UREA NITROGEN 15 mg/dL (7-21); CALCIUM 8.3 mg/dL (8.4-10.5); GFR NON-AFRICAN AMERICAN > 60; LIPASE 131 U/L (23-300)
[2019-02-08] MEDS ORDERED: Morphine 2 mg/ml ISec IVP STA (01:01)
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
[2019-02-08] MEDS ORDERED: Magnesium Sulfate 1 gm in D5W 1 GM/100 ML BAG IVPB ONE (02:50)
[2019-02-08] MEDS: Morphine 2 mg/ml ISec IVP PRN ×2 (04:23→08:43)
[2019-02-08] MEDS: Folic Acid 1 MG, Thiamine 100 MG, Multivitamin (MVI) 10 ML in Dextrose 5% In Water 1,00... IV SCH ×2 (08:42→19:04)
[2019-02-08 08:50] LABS: HEMOGLOBIN 12.3 g/dL (14.0-18.0); MEAN CELL VOLUME 87.5 fl (80.0-105.0); MEAN CORPUSCULAR HEMOGLOBIN 29.1 pg (25.0-35.0); MEAN CORPUSCULAR HGB CONC 33.2 g/dl (31.0-37.0); MEAN PLATELET VOLUME 10.6 fl (7.0-11.0); RBC 4.23 10^6/uL (3.5-6.1); RED CELL DISTRIBUTION WIDTH 14.3 % (11.5-14.5); WHITE BLOOD COUNT 3.8 10^3/uL (4.5-11.0)
[2019-02-08 09:05] LABS: ALB/GLOB RATIO 1.5 (1.1-1.8); ALBUMIN 4.5 g/dL (3.0-4.8); ALT/SGPT 82 U/L (7-56); AST/SGOT 174 U/L (17-59); BLOOD UREA NITROGEN 9 mg/dL (7-21); CALCIUM 9.2 mg/dL (8.4-10.5); GFR NON-AFRICAN AMERICAN > 60
[2019-02-08 09:08] LABS: TROPONIN I < 0.01 ng/mL
[2019-02-08 10:18] LABS: BARBITURATES, UR NEGATIVE (NEGATIVE); BENZODIAZEPINES, UR NEGATIVE (NEGATIVE); OPIATES, UR POSITIVE (NEGATIVE); PHENCYCLIDINE, UR NEGATIVE (NEGATIVE)
--- NOTE | 2019-02-08 11:39 | CT ---
Date of service: 02/08/2019 PROCEDURE: CT abdomen pelvis. HISTORY: Abdominal pain COMPARISON: Comparison made with prior CT scan abdomen pelvis 01/07/2019. TECHNIQUE: Contiguous axial images of the abdomen and pelvis performed without oral or intravenous contrast material. Additional 2D sagittal and coronal reformats generated a Radiation dose: Total exam DLP = 254.63 mGy-cm. This CT exam was performed using one or more of the following dose reduction techniques: Automated exposure control, adjustment of the mA and/or kV according to patient size, and/or use of iterative reconstruction technique. FINDINGS: LOWER THORAX: Unremarkable. LIVER: Liver exhibits normal size without mass collection or calcification. Mild diffuse fatty hepatic infiltration GALLBLADDER AND BILE DUCTS: Gallbladder physiologically distended. No evidence of intraluminal gallbladder calculi. PANCREAS: Unremarkable. No mass. No ductal dilatation. SPLEEN: The exhibits normal size and attenuation pattern.. ADRENALS: No adrenal lesions. KIDNEYS AND URETERS: There is a small hyperdense focus with poorly defined margins anteromedial aspect midpole right kidney that could represent a hyperdense cyst or localized cluster of microcalcifications. Possibility of a small hyperdense solid mass cannot be completely excluded. Recommend follow-up renal ultrasound for further evaluation. BLADDER: The bladder is incompletely distended which in part accounts for slight thick-walled appearance. Muscular hypertrophy may contribute. Correlation with urinalysis recommended. Knee REPRODUCTIVE: Prostate gland appears mildly enlarged measuring approximately 4.8 cm in transverse dimension. APPENDIX: Normal appendix. BOWEL: Evaluation of the bowel is somewhat limited due to the lack of oral contrast material. Stomach is incompletely distended. Most of the visualized loops of small bowel exhibit relatively normal caliber with the exception of 1 or 2 slightly prominent fluid-filled loops in the mid to mid and right parasagittal abdomen that could represent sequela of localized ileus. There are scattered colonic diverticula however no radiographic evidence of acute diverticulitis.. PERITONEUM: Unremarkable. No fluid collection. No free air. LYMPH NODES: Unremarkable. No enlarged lymph nodes. VASCULATURE: Unremarkable. No aortic aneurysm. No aortic atherosclerotic calcification or mural plaque present. BONES: Minor multilevel degenerative spondylosis of the lower thoracic and lumbar spine. OTHER FINDINGS: None. IMPRESSION: Mild fatty hepatic infiltration. There are 1 or 2 minimally prominent fluid-filled loops of small bowel in the mid and right parasagittal abdomen possibly representing mild ileus. Urinary bladder wall slightly thickened in part due to incomplete distention and muscular hypertrophy however correlation with urinalysis to exclude cystitis. There is a small vague hyperdense focus seen in the medial cortex midpole left kidney that could represent small hyperdense cyst or cluster of microcalcifications. Consider follow-up renal ultrasound.
[2019-02-08] MEDS ORDERED: Alum-Mag Hydrox-Simethicone Susp (30 mL) PO ONE (13:17)
--- NOTE | 2019-02-08 14:15 | RAD ---
Date of service: 02/08/2019 HISTORY: Chest pain COMPARISON: Comparison made with prior chest 12/31/2018 TECHNIQUE: 1 view obtained. FINDINGS: LUNGS: No active pulmonary disease. PLEURA: No significant pleural effusion identified, no pneumothorax apparent. CARDIOVASCULAR: No aortic atherosclerotic calcification present. Normal cardiac size. No pulmonary vascular congestion. OSSEOUS STRUCTURES: No significant abnormalities. VISUALIZED UPPER ABDOMEN: Normal. OTHER FINDINGS: None. IMPRESSION: No active disease.
--- NOTE | 2019-02-08 21:00 | CON ---
DATE OF CONSULTATION: 02/08/2019 REQUESTING PHYSICIAN: Dr. Melendez REASON FOR CONSULTATION: Chest pain. HISTORY: This is a 43-year-old me known to me from prior admissions, admitted with complaints of abdominal pain, nausea and vomiting as well as chest discomfort. The patient has a long history of alcohol and tobacco abuse as well as cocaine use. He denies any recent cocaine ingestion. However, according to the chart, he admitted to doing so upon admission. He presented to the emergency room with complaints of abdominal discomfort after eating. He also complained of some sharp left-sided chest pain. His admission electrocardiogram was unremarkable and initial cardiac enzymes were negative. His cardiac risk factors include hypertension and tobacco abuse. CT of the abdomen and pelvis were suggestive of mild small bowel ileus. PAST HISTORY: Also notable for prior episodes of gastritis and colitis. He has a history of anxiety and depression disorder in the past. He has undergone prior ankle surgery. FAMILY HISTORY: Notable for several family members with congestive cardiomyopathy. SOCIAL HISTORY: As mentioned. ALLERGIES: NONE. REVIEW OF SYSTEMS: A 10-point review of systems is otherwise unremarkable. PHYSICAL EXAMINATION: GENERAL: He is a middle-aged man who appears comfortable at rest. VITAL SIGNS: His blood pressure was 158/90 with a pulse of 78, respirations are 16. He is afebrile. HEENT: Normocephalic, atraumatic. NECK: Supple. No JVD noted. CHEST: Few scattered rhonchi heard. HEART: PMI in normal position. No pathological murmurs or gallops noted. ABDOMEN: Soft with mild diffuse tenderness. Bowel sounds present. EXTREMITIES: No clubbing, cyanosis or edema. SKIN: Warm and dry. PSYCHIATRIC: Normal mood and affect. NEUROLOGIC: Alert and oriented x3. No gross motor or sensory deficits. DIAGNOSTIC DATA: Potassium 4.8, BUN and creatinine are 15 and 0.7. White count 3.5, hemoglobin and hematocrit 12.8 and 35.8 with a platelet count of 231,000. PT/PTT normal. Bilirubin is 1.5, AST 234 with an ALT of 56. Troponin is 0.02. Alcohol level is 26. Urine toxicology positive for opiates and cocaine. Chest x-ray will be reviewed. Electrocardiogram reveals sinus rhythm with voltage criteria for LVH and nonspecific ST-T abnormalities. IMPRESSION: 1. Chest pain, sounds fairly atypical based upon description. Doubt acute cardiac ischemia at this time. 2. Abdominal discomfort, chronic, repeat workup in progress. 3. Polysubstance abuse. RECOMMENDATIONS: Followup cardiac enzymes will be checked. Old records will be reviewed. At this time, an extensive cardiac workup does not appear necessary unless he has more significant and suspicious symptoms. Tobacco abstinence was strongly encouraged. Thank you for this consultation. I will follow along as needed. Sonny Armendariz MD
[2019-02-09] MEDS: Folic Acid 1 MG, Thiamine 100 MG, Multivitamin (MVI) 10 ML in Dextrose 5% In Water 1,00... IV SCH ×3 (04:41→20:36)
--- NOTE | 2019-02-09 07:07 | CARD ---
APPROVED REPORT Date of service: 02/08/2019 EKG Measurement Heart [id number] <Conclusion> Normal sinus rhythm Moderate voltage criteria for LVH, may be normal variant Borderline ECG
[2019-02-09 07:11] LABS: BASO # 0.02 K/mm3 (0.0-2.0); BASO % 0.8 % (0.0-3.0); EOS % 1.6 % (1.5-5.0); HEMOGLOBIN 12.9 g/dL (14.0-18.0); LYMPH % 37.3 % (22.0-35.0); MEAN CELL VOLUME 85.2 fl (80.0-105.0); MEAN CORPUSCULAR HEMOGLOBIN 28.1 pg (25.0-35.0); MEAN PLATELET VOLUME 10.2 fl (7.0-11.0); MONO # 0.2 (0.1-0.6); MONO % 7.5 % (1.0-6.0); RBC 4.59 10^6/uL (3.5-6.1); RED CELL DISTRIBUTION WIDTH 14.3 % (11.5-14.5); WHITE BLOOD COUNT 2.6 10^3/uL (4.5-11.0)
--- NOTE | 2019-02-09 07:17 | CARD ---
APPROVED REPORT Date of service: 02/07/2019 EKG Measurement Heart [id number] <Conclusion> Normal sinus rhythm Moderate voltage criteria for LVH, may be normal variant Borderline ECG
[2019-02-09 07:26] LABS: ALB/GLOB RATIO 1.5 (1.1-1.8); ALBUMIN 4.5 g/dL (3.0-4.8); ALT/SGPT 90 U/L (7-56); AST/SGOT 183 U/L (17-59); BLOOD UREA NITROGEN 3 mg/dL (7-21); CALCIUM 9.2 mg/dL (8.4-10.5); GFR NON-AFRICAN AMERICAN > 60
[2019-02-09] MEDS ORDERED: Potassium Chloride 20 mEq/15 ml LIQ UD PO STA (07:37)
--- NOTE | 2019-02-09 08:55 | CARD ---
APPROVED REPORT Date of service: 02/08/2019 EKG Measurement Heart [id number] ID [id number] <Conclusion> Normal sinus rhythm Moderate voltage criteria for LVH, may be normal variant Borderline ECG
--- NOTE | 2019-02-09 09:06 | CP.PCM.PN ---
<Fred Tamez - Last Filed: 02/09/19 13:33> Subjective - Date & Time of Evaluation Date of Evaluation: 02/09/19 Time of Evaluation: 09:05 - Subjective Subjective: PGY-1 Medicine progress note for Dr. Silverio Patient seen and examined at bedside. No acute events overnight. Patient is complaining of watery diarrhea, he states that he had 4 episodes of diarrhea this morning. He states that he is having mild abdominal pain. He denies fevers, chills, shortness of breath, nausea, vomiting, diarrhea, or urinary symptoms. Objective - Vital Signs/Intake and Output Vital Signs (last 24 hours): Temp Pulse Resp BP Pulse Ox 98.1 F 100 H 18 138/93 H 99 02/09/19 06:00 02/09/19 06:00 02/09/19 06:00 02/09/19 06:00 02/09/19 06:00 Intake and Output: 02/09/19 02/09/19 06:59 18:59 Intake Total 960 Output Total 2200 Balance -1240 - Medications Medications: Current Medications Folic Acid (Folic Acid) 1 mg PO DAILY [facility] Folic Acid 1 mg/ Thiamine HCl 100 mg/ Multivitamins/Vitamin C 10 ml/ Dextrose 1,011.2 mls @ 100 mls/hr IV .Q10H7M [facility] Last Admin: 02/09/19 04:41 Dose: 100 mls/hr Potassium Chloride (Potassium Chloride 10 Meq/100 Ml) 10 meq in 100 mls @ 100 mls/hr IVPB Q2H ALEXANDRA Stop: 02/09/19 10:44 Last Admin: 02/09/19 08:35 Dose: 100 mls/hr Ketorolac Tromethamine (Toradol) 30 mg IVP Q6H PRN PRN Reason: Pain, severe (8-10) Last Admin: 02/08/19 10:14 Dose: 30 mg Lorazepam (Ativan) 1 mg IVP Q2H PRN; Protocol PRN Reason: Symptoms of alcohol withdrawl Last Admin: 02/08/19 13:00 Dose: 1 mg Multivitamins/Minerals (Therapeutic-M Tab) 1 tab PO DAILY [facility] Ondansetron HCl (Zofran Inj) 4 mg IVP Q6H PRN PRN Reason: Nausea/Vomiting Pantoprazole Sodium (Protonix Inj) 40 mg IVP Q12 [facility] Last Admin: 02/08/19 21:31 Dose: 40 mg Thiamine HCl (Vitamin B1 Tab) 100 mg PO DAILY [facility] - Labs Labs: 02/09/19 06:30 02/09/19 06:30 PT 11.1 SECONDS (9.4-12.5) 02/07/19 22:34 INR 1.00 02/07/19 22:34 APTT 30.3 Seconds (26.9-38.3) 02/07/19 22:34 - Additional Findings Additional findings: - Constitutional Appears: Non-toxic, No Acute Distress - Head Exam Head Exam: ATRAUMATIC, NORMAL INSPECTION, NORMOCEPHALIC - Eye Exam Eye Exam: EOMI, Normal appearance Pupil Exam: NORMAL ACCOMODATION - ENT Exam ENT Exam: Mucous Membranes Dry - Respiratory Exam Respiratory Exam: Clear to Auscultation Bilateral, NORMAL BREATHING PATTERN. absent: Accessory Muscle Use, Rhonchi, Wheezes, Respiratory Distress - Cardiovascular Exam Cardiovascular Exam: REGULAR RHYTHM, +S1, +S2 - GI/Abdominal Exam GI & Abdominal Exam: Normal Bowel Sounds, Soft, Tenderness (left lower quadrant ). absent: Distended - Extremities Exam Extremities exam: Positive for: full ROM, normal inspection. Negative for: joint swelling - Neurological Exam Neurological exam: Alert, CN II-XII Intact, Oriented x3 - Psychiatric Exam Psychiatric exam: Normal Affect, Normal Mood Assessment and Plan - Assessment and Plan (Free Text) Assessment: 43-year-old M with PMH of HTN, colitis, anxiety, alcohol/substance abuse, and depression, and multiple ED visits who presents to the ED complaining of abdominal pain. Plan: Chest pain, rule out ACS - Risk factors: HTN; Patient admits to recent cocaine use, smoking tobacco - CXR: No active disease - Cardiology consulted, Dr. Armendariz - EKG ordered: NSR, No ST changes - Troponin: <0.01 x 3 - ECHO (02/12): EF 60.3%, mild tricuspid regurg, mild pulmonary HTN, normal LV wall thickness, normal LV function Abdominal pain - CT abd/pelvis: Mild fatty hepatic infiltration. There are 1 or 2 minimally prominent fluid-filled loops of small bowel in the mid and right parasagittal abdomen possibly representing mild ileus. - Lipase 131 - Zofran PRN - Toradol PRN - Protonix 40mg PO QD - Tolerating Full liquid diet - Advance diet as tolerated Watery diarrhea - C. diff Ag positive, Toxin negative - Follow up Stool culture Alcohol abuse - Ativan 2mg IVP Q2 PRN for withdrawal symptoms - Banana bag - Daily folate, thiamine, MV - Seizure, fall, aspiration precautions - CIWA: 0 - Monitor for withdrawal symptoms - Counseled on alcohol cessation Alcoholic liver disease - Avoid hepatotoxic agents - Counseled on alcohol cessation - Continue to monitor Renal Cyst - Small hyperdense cyst incidentally found on CT in left kidney - Follow up with renal ultrasound as outpatient Substance Abuse - UDS positive for cocaine and opiates - Counseled on drugs cessation Ppx: - GI: protonix 40mg PO daily - DVT: SCD Patient seen and case discussed with attending, Dr. Silverio. Fred Tamez, PGY-1 <Luisito Silverio - Last Filed: 02/11/19 17:25> Objective - Vital Signs/Intake and Output Vital Signs (last 24 hours): Temp Pulse Resp BP Pulse Ox 98.3 F 89 18 116/82 99 02/11/19 06:00 02/11/19 06:00 02/11/19 06:00 02/11/19 06:00 02/11/19 06:00 Intake and Output: 02/11/19 02/11/19 06:59 18:59 Intake Total 360 Balance 360 - Labs Labs: 02/11/19 06:00 02/11/19 06:00 PT 11.1 SECONDS (9.4-12.5) 02/07/19 22:34 INR 1.00 02/07/19 22:34 APTT 30.3 Seconds (26.9-38.3) 02/07/19 22:34 Attending/Attestation - Attestation I have personally seen and examined this patient.: Yes I have fully participated in the care of the patient.: Yes I have reviewed all pertinent clinical information, including history, physical exam and plan: Yes Notes (Text): 02/11/19 17:25 Medical record note made by the resident after discussion with my direction and input after the patient was personally seen and examined by me. I have reviewed the chart and agree that the record accurately reflects by personal performance of the history, physical exam, data review, and medical decision-making, in the course for the patient. I have also personally directed the plan of care.
[2019-02-09] MEDS: Pantoprazole 40 mg EC Tab PO SCH (10:00)
[2019-02-09] MEDS: Vancomycin 25 MG/ML PO SCH ×3 (18:50→22:01)
[2019-02-10] MEDS: Folic Acid 1 MG, Thiamine 100 MG, Multivitamin (MVI) 10 ML in Dextrose 5% In Water 1,00... IV SCH ×2 (04:57→15:26)
[2019-02-10 06:53] LABS: BASO # 0.02 K/mm3 (0.0-2.0); BASO % 0.8 % (0.0-3.0); EOS % 1.2 % (1.5-5.0); HEMOGLOBIN 11.8 g/dL (14.0-18.0); LYMPH # 1.1 (1.2-3.4); LYMPH % 43.5 % (22.0-35.0); MEAN CELL VOLUME 86.7 fl (80.0-105.0); MEAN CORPUSCULAR HGB CONC 32.2 g/dl (31.0-37.0); MEAN PLATELET VOLUME 10.6 fl (7.0-11.0); MONO # 0.3 (0.1-0.6); MONO % 10.3 % (1.0-6.0); RBC 4.22 10^6/uL (3.5-6.1); RED CELL DISTRIBUTION WIDTH 14.6 % (11.5-14.5); WHITE BLOOD COUNT 2.5 10^3/uL (4.5-11.0)
[2019-02-10 07:21] LABS: ALB/GLOB RATIO 1.4 (1.1-1.8); ALBUMIN 4.1 g/dL (3.0-4.8); ALT/SGPT 114 U/L (7-56); AST/SGOT 165 U/L (17-59); BLOOD UREA NITROGEN 2 mg/dL (7-21); CALCIUM 9.1 mg/dL (8.4-10.5); GFR NON-AFRICAN AMERICAN > 60
[2019-02-10] MEDS ORDERED: Potassium Chloride 20 mEq ER Tab PO ONE (08:26)
[2019-02-10] MEDS: Multivitamin With Minerals Tab PO SCH (09:18)
[2019-02-10] MEDS: Pantoprazole 40 mg EC Tab PO SCH (09:18)
[2019-02-10] MEDS: Vancomycin 25 MG/ML PO SCH ×4 (09:18→21:36)
--- NOTE | 2019-02-10 09:54 | CP.PCM.PN ---
<Fred Tamez - Last Filed: 02/10/19 12:35> Subjective - Date & Time of Evaluation Date of Evaluation: 02/10/19 Time of Evaluation: 09:51 - Subjective Subjective: PGY-1 Medicine progress note for Dr. Silverio Patient seen and examined at bedside. No acute events overnight. Patient states that he stopped having diarrhea, his last bowel movement was last night with formed stool. He is tolerating a soft diet with no nausea or vomiting. He denies fevers, chills, shortness of breath, abdominal pain, or urinary symptoms. Objective - Vital Signs/Intake and Output Vital Signs (last 24 hours): Temp Pulse Resp BP Pulse Ox 98.8 F 91 H 18 128/91 H 99 02/10/19 06:00 02/10/19 06:00 02/10/19 06:00 02/10/19 06:00 02/10/19 06:00 Intake and Output: 02/10/19 02/10/19 06:59 18:59 Intake Total 740 Output Total 900 Balance -160 - Medications Medications: Current Medications Folic Acid (Folic Acid) 1 mg PO DAILY [facility] Last Admin: 02/10/19 09:17 Dose: 1 mg Folic Acid 1 mg/ Thiamine HCl 100 mg/ Multivitamins/Vitamin C 10 ml/ Dextrose 1,011.2 mls @ 100 mls/hr IV .Q10H7M [facility] Last Admin: 02/10/19 04:57 Dose: 100 mls/hr Ketorolac Tromethamine (Toradol) 30 mg IVP Q6H PRN PRN Reason: Pain, severe (8-10) Last Admin: 02/08/19 10:14 Dose: 30 mg Lorazepam (Ativan) 1 mg IVP Q2H PRN; Protocol PRN Reason: Symptoms of alcohol withdrawl Last Admin: 02/08/19 13:00 Dose: 1 mg Multivitamins/Minerals (Therapeutic-M Tab) 1 tab PO DAILY [facility] Last Admin: 02/10/19 09:18 Dose: 1 tab Ondansetron HCl (Zofran Inj) 4 mg IVP Q6H PRN PRN Reason: Nausea/Vomiting Pantoprazole Sodium (Protonix Ec Tab) 40 mg PO DAILY [facility] Last Admin: 02/10/19 09:18 Dose: 40 mg Thiamine HCl (Vitamin B1 Tab) 100 mg PO DAILY [facility] Last Admin: 02/10/19 09:18 Dose: 100 mg Vancomycin HCl (Vancocin 25 Mg/Ml (Oral Use)) 125 mg PO QID [facility]; Protocol Last Admin: 02/10/19 09:18 Dose: 125 mg - Labs Labs: 02/10/19 06:30 02/10/19 06:30 PT 11.1 SECONDS (9.4-12.5) 02/07/19 22:34 INR 1.00 02/07/19 22:34 APTT 30.3 Seconds (26.9-38.3) 02/07/19 22:34 - Additional Findings Additional findings: - Constitutional Appears: Non-toxic, No Acute Distress - Head Exam Head Exam: ATRAUMATIC, NORMAL INSPECTION, NORMOCEPHALIC - Eye Exam Eye Exam: EOMI, Normal appearance Pupil Exam: NORMAL ACCOMODATION - ENT Exam ENT Exam: Mucous Membranes Dry - Respiratory Exam Respiratory Exam: Clear to Auscultation Bilateral, NORMAL BREATHING PATTERN. absent: Accessory Muscle Use, Rhonchi, Wheezes, Respiratory Distress - Cardiovascular Exam Cardiovascular Exam: REGULAR RHYTHM, +S1, +S2 - GI/Abdominal Exam GI & Abdominal Exam: Normal Bowel Sounds, Soft. absent: Distended Abdomen non-tender to palpation - Extremities Exam Extremities exam: Positive for: full ROM, normal inspection. Negative for: joint swelling - Neurological Exam Neurological exam: Alert, CN II-XII Intact, Oriented x3 - Psychiatric Exam Psychiatric exam: Normal Affect, Normal Mood Assessment and Plan - Assessment and Plan (Free Text) Assessment: 43-year-old M with PMH of HTN, colitis, anxiety, alcohol/substance abuse, and depression, and multiple ED visits who is admitted for ileus. Plan: Abdominal pain - CT abd/pelvis: Mild fatty hepatic infiltration. There are 1 or 2 minimally prominent fluid-filled loops of small bowel in the mid and right parasagittal abdomen possibly representing mild ileus. - Zofran PRN - Protonix 40mg PO QD - Tolerating soft diet - Lipase 131 - Advance diet as tolerated Watery diarrhea - C. diff Ag positive, Toxin negative - Vancomycin 125mg PO QID (Started on 02/09) - Diarrhea has resolved - Follow up Stool culture Chest pain, rule out ACS- resolved - Risk factors: HTN; Patient admits to recent cocaine use, smoking tobacco - CXR: No active disease - Cardiology consulted, Dr. Armendariz - EKG ordered: NSR, No ST changes - Troponin: <0.01 x 3 - ECHO (02/12): EF 60.3%, mild tricuspid regurg, mild pulmonary HTN, normal LV wall thickness, normal LV function Alcohol abuse - Ativan 2mg IVP Q2 PRN for withdrawal symptoms - Banana bag - Daily folate, thiamine, MV - Seizure, fall, aspiration precautions - CIWA: 0 - Monitor for withdrawal symptoms - Counseled on alcohol cessation Alcoholic liver disease - Avoid hepatotoxic agents - Counseled on alcohol cessation - Continue to monitor Renal Cyst - Small hyperdense cyst incidentally found on CT in left kidney - Follow up with renal ultrasound as outpatient Substance Abuse - UDS positive for cocaine and opiates - Counseled on drugs cessation Ppx: - GI: protonix 40mg PO daily - DVT: SCD Patient seen and case discussed with attending, Dr. Silverio. Fred Tamez, PGY-1 <Luisito Silverio - Last Filed: 02/11/19 17:25> Objective - Vital Signs/Intake and Output Vital Signs (last 24 hours): Temp Pulse Resp BP Pulse Ox 98.3 F 89 18 116/82 99 02/11/19 06:00 02/11/19 06:00 02/11/19 06:00 02/11/19 06:00 02/11/19 06:00 Intake and Output: 02/11/19 02/11/19 06:59 18:59 Intake Total 360 Balance 360 - Labs Labs: 02/11/19 06:00 02/11/19 06:00 PT 11.1 SECONDS (9.4-12.5) 02/07/19 22:34 INR 1.00 02/07/19 22:34 APTT 30.3 Seconds (26.9-38.3) 02/07/19 22:34 Attending/Attestation - Attestation I have personally seen and examined this patient.: Yes I have fully participated in the care of the patient.: Yes I have reviewed all pertinent clinical information, including history, physical exam and plan: Yes Notes (Text): 02/11/19 17:25 Medical record note made by the resident after discussion with my direction and input after the patient was personally seen and examined by me. I have reviewed the chart and agree that the record accurately reflects by personal performance of the history, physical exam, data review, and medical decision-making, in the course for the patient. I have also personally directed the plan of care.
[2019-02-10] MEDS ORDERED: Magnesium Sulfate 1 gm in D5W 1 GM/100 ML BAG IVPB ONE (22:52)
[2019-02-11] MEDS: Folic Acid 1 MG, Thiamine 100 MG, Multivitamin (MVI) 10 ML in Dextrose 5% In Water 1,00... IV SCH (01:53)
[2019-02-11 07:13] LABS: BASO # 0.02 K/mm3 (0.0-2.0); BASO % 0.6 % (0.0-3.0); EOS % 1.2 % (1.5-5.0); HEMOGLOBIN 11.9 g/dL (14.0-18.0); LYMPH # 1.3 (1.2-3.4); MEAN CELL VOLUME 87.7 fl (80.0-105.0); MEAN CORPUSCULAR HEMOGLOBIN 28.1 pg (25.0-35.0); MEAN CORPUSCULAR HGB CONC 32.1 g/dl (31.0-37.0); MEAN PLATELET VOLUME 10.8 fl (7.0-11.0); MONO # 0.3 (0.1-0.6); MONO % 9.3 % (1.0-6.0); RBC 4.23 10^6/uL (3.5-6.1); RED CELL DISTRIBUTION WIDTH 14.8 % (11.5-14.5); WHITE BLOOD COUNT 3.2 10^3/uL (4.5-11.0)
[2019-02-11 07:36] VITALS: BP 116/82; PULSE 89; RESP 18; TEMP 98.3; O2SAT 99
[2019-02-11 08:06] LABS: ALB/GLOB RATIO 1.4 (1.1-1.8); ALBUMIN 4.2 g/dL (3.0-4.8); ALT/SGPT 117 U/L (7-56); AST/SGOT 101 U/L (17-59); BLOOD UREA NITROGEN 9 mg/dL (7-21); CALCIUM 9.2 mg/dL (8.4-10.5); GFR NON-AFRICAN AMERICAN > 60
[2019-02-11] MEDS: Multivitamin With Minerals Tab PO SCH (09:40)
[2019-02-11] MEDS: Pantoprazole 40 mg EC Tab PO SCH (09:40)
[2019-02-11] MEDS: Vancomycin 25 MG/ML PO SCH (10:10)
--- NOTE | 2019-02-11 13:37 | CP.PCM.DIS ---
<Fred Tamez - Last Filed: 02/11/19 13:28> Provider - Provider Date of Admission: 02/09/19 11:16 Attending physician: Luisito Silverio MD Consults: 02/08/19 02:38 Cardiology Consult Routine Comment: Consulting Provider: Sonny Armendariz Consulting Physician: Sonny Armendariz Reason for Consult: chest pain in setting of cocaine use Time Spent in preparation of Discharge (in minutes): 45 Diagnosis - Discharge Diagnosis (1) Ileus Status: Chronic (2) Alcohol abuse Status: Chronic Priority: High (3) Abdominal pain Status: Resolved Priority: Medium (4) Hypokalemia Status: Resolved (5) Nausea Status: Resolved (6) Cocaine abuse Status: Chronic Priority: High Hospital Course - Lab Results Lab Results: Micro Results 02/08/19 19:00 Stool Stool Culture - Final NO SALMONELLA, SHIGELLA OR CAMPYLOBACTER ISOLATED. 02/08/19 19:00 Stool C. difficile Antigen & Toxins A,B - Final Most Recent Lab Values WBC 3.2 10^3/uL (4.5-11.0) L D 02/11/19 06:00 RBC 4.23 10^6/uL (3.5-6.1) 02/11/19 06:00 Hgb 11.9 g/dL (14.0-18.0) L 02/11/19 06:00 Hct 37.1 % (42.0-52.0) L 02/11/19 06:00 MCV 87.7 fl (80.0-105.0) 02/11/19 06:00 MCH 28.1 pg (25.0-35.0) 02/11/19 06:00 MCHC 32.1 g/dl (31.0-37.0) 02/11/19 06:00 RDW 14.8 % (11.5-14.5) H 02/11/19 06:00 Plt Count 142 10^3/uL (120.0-450.0) 02/11/19 06:00 MPV 10.8 fl (7.0-11.0) 02/11/19 06:00 Neut % (Auto) 49.9 % (50.0-68.0) L 02/11/19 06:00 Lymph % (Auto) 39.0 % (22.0-35.0) H 02/11/19 06:00 Pratt % (Auto) 9.3 % (1.0-6.0) H 02/11/19 06:00 Eos % (Auto) 1.2 % (1.5-5.0) L 02/11/19 06:00 Baso % (Auto) 0.6 % (0.0-3.0) 02/11/19 06:00 Lymph # (Auto) 1.3 (1.2-3.4) 02/11/19 06:00 Pratt # (Auto) 0.3 (0.1-0.6) 02/11/19 06:00 Eos # (Auto) 0.0 (0.0-0.7) 02/11/19 06:00 Baso # (Auto) 0.02 K/mm3 (0.0-2.0) 02/11/19 06:00 Absolute Neuts (auto) 1.61 (1.4-6.5) 02/11/19 06:00 PT 11.1 SECONDS (9.4-12.5) 02/07/19 22:34 INR 1.00 02/07/19 22:34 APTT 30.3 Seconds (26.9-38.3) 02/07/19 22:34 Sodium 136 mmol/L (132-148) 02/11/19 06:00 Potassium 4.0 mmol/L (3.6-5.0) 02/11/19 06:00 Chloride 100 mmol/L (98-107) 02/11/19 06:00 Carbon Dioxide 26 mmol/L (21-33) 02/11/19 06:00 Anion Gap 14 (10-20) 02/11/19 06:00 BUN 9 mg/dL (7-21) 02/11/19 06:00 Creatinine 0.7 mg/dl (0.8-1.5) L 02/11/19 06:00 Est GFR ( Amer) > 60 02/11/19 06:00 Est GFR (Non-Af Amer) > 60 02/11/19 06:00 Random Glucose 109 mg/dL (70-110) 02/11/19 06:00 Calcium 9.2 mg/dL (8.4-10.5) 02/11/19 06:00 Phosphorus 4.1 mg/dL (2.5-4.5) 02/10/19 06:30 Magnesium 1.4 mg/dL (1.7-2.2) L 02/10/19 06:30 Total Bilirubin 0.3 mg/dL (0.2-1.3) 02/11/19 06:00 AST 101 U/L (17-59) H D 02/11/19 06:00 ALT 117 U/L (7-56) H 02/11/19 06:00 Alkaline Phosphatase 53 U/L (38-126) 02/11/19 06:00 Troponin I < 0.01 ng/mL 02/08/19 15:00 Total Protein 7.1 g/dL (5.8-8.3) 02/11/19 06:00 Albumin 4.2 g/dL (3.0-4.8) 02/11/19 06:00 Globulin 2.9 gm/dL 02/11/19 06:00 Albumin/Globulin Ratio 1.4 (1.1-1.8) 02/11/19 06:00 Lipase 131 U/L (23-300) 02/07/19 23:58 Urine Color Yellow (YELLOW) 02/07/19 22:34 Urine Appearance Clear (CLEAR) 02/07/19 22:34 Urine pH 6.0 (4.7-8.0) 02/07/19 22:34 Ur Specific [place] >= 1.030 (1.005-1.035) 02/07/19 22:34 Urine Protein Trace mg/dL (<30 mg/dL) H 02/07/19 22:34 Urine Glucose (UA) Negative mg/dL (NEGATIVE) 02/07/19 22:34 Urine Ketones Trace mg/dL (NEGATIVE) H 02/07/19 22:34 Urine Blood Negative (NEGATIVE) 02/07/19 22:34 Urine Nitrate Negative (NEGATIVE) 02/07/19 22:34 Urine Bilirubin Negative (NEGATIVE) 02/07/19 22:34 Urine Urobilinogen 0.2 E.U./dL (<1 E.U./dL) 02/07/19 22:34 Ur Leukocyte Esterase Negative Georges/uL (NEGATIVE) 02/07/19 22:34 Urine RBC TEST NOT PERFORMED 02/07/19 22:34 Urine WBC 2 - 5 /hpf (0-6) 02/07/19 22:34 Ur Epithelial Cells 6 - 8 /hpf (0-5) H 02/07/19 22:34 Urine Opiates Screen Positive (NEGATIVE) H 02/08/19 09:30 Urine Methadone Screen Negative (NEGATIVE) 02/08/19 09:30 Ur Barbiturates Screen Negative (NEGATIVE) 02/08/19 09:30 Ur Phencyclidine Scrn Negative (NEGATIVE) 02/08/19 09:30 Ur Amphetamines Screen Negative (NEGATIVE) 02/08/19 09:30 U Benzodiazepines Scrn Negative (NEGATIVE) 02/08/19 09:30 U Oth Cocaine Metabols Positive (NEGATIVE) H 02/08/19 09:30 U Cannabinoids Screen Negative (NEGATIVE) 02/08/19 09:30 Alcohol, Quantitative 26 mg/dL (0-10) H 02/07/19 23:58 - Hospital Course Hospital Course: 43-year-old M with PMH of HTN, colitis, anxiety, alcohol/substance abuse, and depression, and multiple ED visits who presents to the ED complaining of abdominal pain. Patient says that after having eggplant yesterday he began experiencing throbbing abdominal pain localized to the left lower quadrant. Patient states the pain was constant. Of note, Patient reports he consumed 1/2 pint of vodka 1 day before and did cocaine within the last week. Patient reports associated nausea, vomiting (non-bloody/non-bilious), and non-bloody diarrhea. Patient also reports associated left-sided chest pain. Patient also reported nonbloody diarrhea episodes. Abdominal CT showed nonspecific mild fatty hepatic infiltration. There are 1 or 2 minimally prominent fluid-filled loops of small bowel in the mid and right parasagittal abdomen possibly representing mild ileus. Stool culture and C. Dif stool toxin were ordered. Patient was positive for C. Dif stool antigen but negative for stool toxin. Patient was started on PO Vancomycin. Cardiology, Dr. Kruse saw the patient and states that the chest pain is unlikely cardiac in origin. Patient was stable and ready and reported feeling better this morning with no acute complaints. He states that his diarrhea has resolved. He was discharged with Vancomycin PO for outpatient jose tment of C. Diff. He was told to follow up with PCP. He was once again strongly advised on cessation of alcohol and drugs. In addition, he was told to return to the emergency department if he had any recurring or new concerning symptoms. Discharge Exam - Additional Findings Additional findings: - Constitutional Appears: Non-toxic, No Acute Distress - Head Exam Head Exam: ATRAUMATIC, NORMAL INSPECTION, NORMOCEPHALIC - Eye Exam Eye Exam: EOMI, Normal appearance Pupil Exam: NORMAL ACCOMODATION - ENT Exam ENT Exam: Mucous Membranes Dry - Respiratory Exam Respiratory Exam: Clear to Auscultation Bilateral, NORMAL BREATHING PATTERN. absent: Accessory Muscle Use, Rhonchi, Wheezes, Respiratory Distress - Cardiovascular Exam Cardiovascular Exam: REGULAR RHYTHM, +S1, +S2 - GI/Abdominal Exam GI & Abdominal Exam: Normal Bowel Sounds, Soft. absent: Distended Abdomen non-tender to palpation - Extremities Exam Extremities exam: Positive for: full ROM, normal inspection. Negative for: joint swelling - Neurological Exam Neurological exam: Alert, CN II-XII Intact, Oriented x3 - Psychiatric Exam Psychiatric exam: Normal Affect, Normal Mood Discharge Plan - Discharge Medications Prescriptions: Folic Acid 1 mg PO DAILY #30 tab Multimineral/Multivitamin [Therapeutic-M Tab] 1 tab PO DAILY #30 tab Thiamine [Vitamin B1 Tab] 100 mg PO DAILY #30 tab Vancomycin [Vancocin 25 mg/ml (Oral Use)] 125 mg PO QID #28 ml - Follow Up Plan Condition: FAIR Disposition: HOME/ ROUTINE Instructions: Alcohol Use - When Is Drinking a Problem?, Nausea and Vomiting, Adult, Liver Function Test, Effects of Alcohol on Your Health Additional Instructions: Please follow-up with your Primary care doctor, Dr. Heard, within 7 days of discharge so he may be aware of this hospital stay. You are being given new medication on discharge: - Vancomycin 125 mg every 6 hours for 7 days - Thiamine, Folic Acid, and Multivitamin daily Resume home medications as prescribed by your doctor. Hold Lipitor use and have liver function checked by your primary doctor; resume when instructed by Dr. Heard Please abstain from alcohol use and illicit drug use as we have discussed, due to significant side effects including but not limited to . Please do not take Tylenol or medications that contains acetaminophen as you have elevated liver enzymes. If symptoms return please promptly go to nearest emergency department Referrals: Griselda Heard MD [Medical Doctor] - <Luisito Silverio - Last Filed: 02/11/19 17:24> Provider - Provider Date of Admission: 02/09/19 11:16 Attending physician: Luisito Silverio MD Consults: 02/08/19 02:38 Cardiology Consult Routine Comment: Consulting Provider: Sonny Armendariz Consulting Physician: Sonny Armendariz Reason for Consult: chest pain in setting of cocaine use Hospital Course - Lab Results Lab Results: Micro Results 02/08/19 19:00 Stool Stool Culture - Final NO SALMONELLA, SHIGELLA OR CAMPYLOBACTER ISOLATED. 02/08/19 19:00 Stool C. difficile Antigen & Toxins A,B - Final Most Recent Lab Values WBC 3.2 10^3/uL (4.5-11.0) L D 02/11/19 06:00 RBC 4.23 10^6/uL (3.5-6.1) 02/11/19 06:00 Hgb 11.9 g/dL (14.0-18.0) L 02/11/19 06:00 Hct 37.1 % (42.0-52.0) L 02/11/19 06:00 MCV 87.7 fl (80.0-105.0) 02/11/19 06:00 MCH 28.1 pg (25.0-35.0) 02/11/19 06:00 MCHC 32.1 g/dl (31.0-37.0) 02/11/19 06:00 RDW 14.8 % (11.5-14.5) H 02/11/19 06:00 Plt Count 142 10^3/uL (120.0-450.0) 02/11/19 06:00 MPV 10.8 fl (7.0-11.0) 02/11/19 06:00 Neut % (Auto) 49.9 % (50.0-68.0) L 02/11/19 06:00 Lymph % (Auto) 39.0 % (22.0-35.0) H 02/11/19 06:00 Pratt % (Auto) 9.3 % (1.0-6.0) H 02/11/19 06:00 Eos % (Auto) 1.2 % (1.5-5.0) L 02/11/19 06:00 Baso % (Auto) 0.6 % (0.0-3.0) 02/11/19 06:00 Lymph # (Auto) 1.3 (1.2-3.4) 02/11/19 06:00 Pratt # (Auto) 0.3 (0.1-0.6) 02/11/19 06:00 Eos # (Auto) 0.0 (0.0-0.7) 02/11/19 06:00 Baso # (Auto) 0.02 K/mm3 (0.0-2.0) 02/11/19 06:00 Absolute Neuts (auto) 1.61 (1.4-6.5) 02/11/19 06:00 PT 11.1 SECONDS (9.4-12.5) 02/07/19 22:34 INR 1.00 02/07/19 22:34 APTT 30.3 Seconds (26.9-38.3) 02/07/19 22:34 Sodium 136 mmol/L (132-148) 02/11/19 06:00 Potassium 4.0 mmol/L (3.6-5.0) 02/11/19 06:00 Chloride 100 mmol/L (98-107) 02/11/19 06:00 Carbon Dioxide 26 mmol/L (21-33) 02/11/19 06:00 Anion Gap 14 (10-20) 02/11/19 06:00 BUN 9 mg/dL (7-21) 02/11/19 06:00 Creatinine 0.7 mg/dl (0.8-1.5) L 02/11/19 06:00 Est GFR ( Amer) > 60 02/11/19 06:00 Est GFR (Non-Af Amer) > 60 02/11/19 06:00 Random Glucose 109 mg/dL (70-110) 02/11/19 06:00 Calcium 9.2 mg/dL (8.4-10.5) 02/11/19 06:00 Phosphorus 4.1 mg/dL (2.5-4.5) 02/10/19 06:30 Magnesium 1.4 mg/dL (1.7-2.2) L 02/10/19 06:30 Total Bilirubin 0.3 mg/dL (0.2-1.3) 02/11/19 06:00 AST 101 U/L (17-59) H D 02/11/19 06:00 ALT 117 U/L (7-56) H 02/11/19 06:00 Alkaline Phosphatase 53 U/L (38-126) 02/11/19 06:00 Troponin I < 0.01 ng/mL 02/08/19 15:00 Total Protein 7.1 g/dL (5.8-8.3) 02/11/19 06:00 Albumin 4.2 g/dL (3.0-4.8) 02/11/19 06:00 Globulin 2.9 gm/dL 02/11/19 06:00 Albumin/Globulin Ratio 1.4 (1.1-1.8) 02/11/19 06:00 Lipase 131 U/L (23-300) 02/07/19 23:58 Urine Color Yellow (YELLOW) 02/07/19 22:34 Urine Appearance Clear (CLEAR) 02/07/19 22:34 Urine pH 6.0 (4.7-8.0) 02/07/19 22:34 Ur Specific [place] >= 1.030 (1.005-1.035) 02/07/19 22:34 Urine Protein Trace mg/dL (<30 mg/dL) H 02/07/19 22:34 Urine Glucose (UA) Negative mg/dL (NEGATIVE) 02/07/19 22:34 Urine Ketones Trace mg/dL (NEGATIVE) H 02/07/19 22:34 Urine Blood Negative (NEGATIVE) 02/07/19 22:34 Urine Nitrate Negative (NEGATIVE) 02/07/19 22:34 Urine Bilirubin Negative (NEGATIVE) 02/07/19 22:34 Urine Urobilinogen 0.2 E.U./dL (<1 E.U./dL) 02/07/19 22:34 Ur Leukocyte Esterase Negative Georges/uL (NEGATIVE) 02/07/19 22:34 Urine RBC TEST NOT PERFORMED 02/07/19 22:34 Urine WBC 2 - 5 /hpf (0-6) 02/07/19 22:34 Ur Epithelial Cells 6 - 8 /hpf (0-5) H 02/07/19 22:34 Urine Opiates Screen Positive (NEGATIVE) H 02/08/19 09:30 Urine Methadone Screen Negative (NEGATIVE) 02/08/19 09:30 Ur Barbiturates Screen Negative (NEGATIVE) 02/08/19 09:30 Ur Phencyclidine Scrn Negative (NEGATIVE) 02/08/19 09:30 Ur Amphetamines Screen Negative (NEGATIVE) 02/08/19 09:30 U Benzodiazepines Scrn Negative (NEGATIVE) 02/08/19 09:30 U Oth Cocaine Metabols Positive (NEGATIVE) H 02/08/19 09:30 U Cannabinoids Screen Negative (NEGATIVE) 02/08/19 09:30 Alcohol, Quantitative 26 mg/dL (0-10) H 02/07/19 23:58 Attending/Attestation - Attestation I have personally seen and examined this patient.: Yes I have fully participated in the care of the patient.: Yes I have reviewed all pertinent clinical information, including history, physical exam and plan: Yes Notes (Text): 02/11/19 17:18 Medical record note made by the resident after discussion with my direction and input after the patient was personally seen and examined by me. I have reviewed the chart and agree that the record accurately reflects by personal performance of the history, physical exam, data review, and medical decision-making, in the course for the patient. I have also personally directed the plan of care. 43-year-old M with PMH of HTN, colitis, anxiety, alcohol/substance abuse and non compliance with medication was admitted with abdominal pain, diarrhea and alcoho l withdrawal. Stool studies were positive for C diff antigen but were negative for toxin.Patient has H/O Previous C diff colitis and due to severity of diarrhea was started on oral vancomycin for possible C diff colitis Alcohol withdrawal are improved. Abdominal pain and diarrhea has improved.Patient is tolerating food. He will be discharged home and will follow up with PCP 02/11/19 17:21
== END 2019-02-11 14:34 | disposition home or self-care (01) | DRG 180 ==
LOC: ED 21:44 → ERH 02-08 01:59 → 5RNO 02-08 03:59 → OBSVTOIN 02-09 11:16
PROVIDERS: ADMIT Internal Medicine; ATTEND Internal Medicine
DX: K56.7 Ileus, unspecified (principal); F10.239 Alcohol dependence with withdrawal, unspecified; A04.72 Enterocolitis due to Clostridium difficile, not specified as recurrent; E87.6 Hypokalemia; F14.10 Cocaine abuse, uncomplicated; I07.1 Rheumatic tricuspid insufficiency; F41.0 Panic disorder [episodic paroxysmal anxiety]; I27.20 Pulmonary hypertension, unspecified; I10 Essential (primary) hypertension; K21.9 Gastro-esophageal reflux disease without esophagitis; Z82.0 Family history of epilepsy and other diseases of the nervous system; Z82.3 Family history of stroke; Z86.19 Personal history of other infectious and parasitic diseases; F17.200 Nicotine dependence, unspecified, uncomplicated; Z91.14 Patient's other noncompliance with medication regimen; R07.9 Chest pain, unspecified; K70.9 Alcoholic liver disease, unspecified; N28.1 Cyst of kidney, acquired

== ENCOUNTER 2019-02-23 07:24 | Emergency (ER) | payer MEDICAID ==
[2019-02-23 07:45] VITALS: BMI 21.0
[2019-02-23] MEDS ORDERED: Sodium Chloride 0.9% 1,000 ML IV STA (07:45)
[2019-02-23] MEDS ORDERED: Alum-Mag Hydrox-Simethicone Susp (30 mL) PO STA (07:49)
[2019-02-23] MEDS ORDERED: Atrop/Hyosc/Scopal/PB Elixir (120 ml) PO STA (07:49)
[2019-02-23 07:53] VITALS: RESP 18
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
[2019-02-23 08:39] LABS: BASO # 0.02 {null, K/mm3} (0.0-2.0); BASO % 0.5 % (0.0-3.0); EOS % 0.3 % (1.5-5.0); HEMOGLOBIN 11.6 g/dL (14.0-18.0); LYMPH # 1.6 (1.2-3.4); LYMPH % 44.4 % (22.0-35.0); MEAN CELL VOLUME 88.2 fl (80.0-105.0); MEAN CORPUSCULAR HEMOGLOBIN 28.5 pg (25.0-35.0); MEAN CORPUSCULAR HGB CONC 32.3 g/dl (31.0-37.0); MEAN PLATELET VOLUME 10.1 fl (7.0-11.0); MONO # 0.3 (0.1-0.6); MONO % 6.8 % (1.0-6.0); RBC 4.07 {null, 10^6/uL} (3.5-6.1); RED CELL DISTRIBUTION WIDTH 15.8 % (11.5-14.5); WHITE BLOOD COUNT 3.7 {null, 10^3/uL} (4.5-11.0)
[2019-02-23 08:54] LABS: ALB/GLOB RATIO 1.5 (1.1-1.8); ALBUMIN 4.8 g/dL (3.0-4.8); ALT/SGPT 52 U/L (7-56); AST/SGOT 88 U/L (17-59); BLOOD UREA NITROGEN 16 mg/dL (7-21); CALCIUM 9.5 mg/dL (8.4-10.5); GFR NON-AFRICAN AMERICAN > 60; LIPASE 128 U/L (23-300)
[2019-02-23 08:59] LABS: TROPONIN I < 0.01 ng/mL
--- NOTE | 2019-02-23 09:01 | RAD ---
Date of service: 02/23/2019 HISTORY: abd pain COMPARISON: 02/08/2019 TECHNIQUE: 1 view obtained. FINDINGS: LUNGS: No active pulmonary disease. PLEURA: No significant pleural effusion identified, no pneumothorax apparent. CARDIOVASCULAR: No aortic atherosclerotic calcification present. Normal cardiac size. No pulmonary vascular congestion. OSSEOUS STRUCTURES: No significant abnormalities. VISUALIZED UPPER ABDOMEN: Normal. OTHER FINDINGS: None. IMPRESSION: No active disease.
[2019-02-23 09:20] LABS: CK-MB 1.2 ng/mL (0.0-3.6)
[2019-02-23 11:26] VITALS: BP 150/90; PULSE 78; TEMP 98; O2SAT 98
--- NOTE | 2019-02-23 20:11 | CARD ---
APPROVED REPORT Date of service: 02/23/2019 EKG Measurement Heart [id number] <Conclusion> Normal sinus rhythm Moderate voltage criteria for LVH, may be normal variant Borderline ECG
== END 2019-02-23 11:52 | disposition home or self-care (01) ==
LOC: ED 07:24
DX: K52.9 Noninfective gastroenteritis and colitis, unspecified (principal); I10 Essential (primary) hypertension; F41.9 Anxiety disorder, unspecified; F17.210 Nicotine dependence, cigarettes, uncomplicated
CPT/HCPCS: 71045; 80053; 80320; 82550; 82553; 83615; 83690; 83735; 84484; 85025; 93005; 96361; 96374; 96375; 99283; C9113; J2405; J7030

== ENCOUNTER 2019-03-22 07:11 | Observation (INO) | payer MEDICAID ==
[2019-03-22] MEDS ORDERED: Sodium Chloride 0.9% 1,000 ML IV STA (08:06)
[2019-03-22] MEDS ORDERED: Alum-Mag Hydrox-Simethicone Susp (30 mL) PO STA (08:06)
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
[2019-03-22 08:12] LABS: HEMOGLOBIN 11.5 g/dL (14.0-18.0); MEAN CELL VOLUME 87.8 fl (80.0-105.0); MEAN CORPUSCULAR HEMOGLOBIN 28.1 pg (25.0-35.0); MEAN PLATELET VOLUME 10.5 fl (7.0-11.0); RBC 4.09 10^6/uL (3.5-6.1); RED CELL DISTRIBUTION WIDTH 16.1 % (11.5-14.5); WHITE BLOOD COUNT 2.2 10^3/uL (4.5-11.0)
[2019-03-22 08:18] LABS: ALB/GLOB RATIO 1.5 (1.1-1.8); ALBUMIN 4.7 g/dL (3.0-4.8); ALT/SGPT 79 U/L (7-56); AST/SGOT 215 U/L (17-59); BLOOD UREA NITROGEN 10 mg/dL (7-21); CALCIUM 9.1 mg/dL (8.4-10.5); GFR NON-AFRICAN AMERICAN > 60
[2019-03-22 08:30] LABS: URINE BILIRUBIN NEGATIVE (NEGATIVE); URINE BLOOD TRACE-LYSED (NEGATIVE); URINE GLUCOSE (UA) NEGATIVE (NEGATIVE); URINE LEUKOCYTE ESTERASE NEGATIVE Leu/uL (NEGATIVE); URINE PROTEIN 30 mg/dL (<30 mg/dL); URINE UROBILINOGEN 0.2 E.U./dL (<1 E.U./dL)
[2019-03-22 08:31] LABS: URINE APPEARANCE CLEAR (CLEAR); URINE COLOR YELLOW (YELLOW)
[2019-03-22 08:51] LABS: BARBITURATES, UR NEGATIVE (NEGATIVE)
[2019-03-22 08:52] LABS: URINE EPITHELIAL CELLS 0 - 2 /hpf (0-5); URINE RBC 0 - 2 /hpf (0-2)
[2019-03-22 08:53] LABS: BENZODIAZEPINES, UR NEGATIVE (NEGATIVE); OPIATES, UR NEGATIVE (NEGATIVE); PHENCYCLIDINE, UR NEGATIVE (NEGATIVE); URINE BACTERIA FEW /hpf
[2019-03-22 09:30] LABS: LIPASE 222 U/L (23-300)
[2019-03-22 09:41] LABS: TROPONIN I < 0.01 ng/mL
[2019-03-22 09:56] LABS: CK-MB 2.9 ng/mL (0.0-3.6)
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
[2019-03-22] MEDS ORDERED: Multivitamin (MVI) 10 ML, Thiamine 100 MG, Folic Acid 1 MG in Sodium Chloride 0.9% 1,00... IV ONE (11:00)
[2019-03-22 12:06] VITALS: BMI 20.5
[2019-03-22 14:13] LABS: TROPONIN I < 0.01 ng/mL
[2019-03-22 14:25] LABS: CK-MB 2.9 ng/mL (0.0-3.6)
--- NOTE | 2019-03-22 15:42 | CT ---
Date of service: 03/22/2019 PROCEDURE: CT Abdomen and Pelvis without intravenous contrast HISTORY: abdominal pain COMPARISON: CT scan of the abdomen pelvis dated 02/08/2019. TECHNIQUE: Contiguous images were obtained from the domes of the diaphragms to the upper thighs without the administration of intravenous contrast. Oral contrast was not administered. Radiation dose: Total exam DLP = 282.94 mGy-cm. This CT exam was performed using one or more of the following dose reduction techniques: Automated exposure control, adjustment of the mA and/or kV according to patient size, and/or use of iterative reconstruction technique. FINDINGS: LOWER THORAX: Unremarkable. LIVER: Patent steatosis. No gross lesion or ductal dilatation. GALLBLADDER AND BILE DUCTS: Unremarkable. PANCREAS: Unremarkable. No gross lesion or ductal dilatation. SPLEEN: Unremarkable. ADRENALS: Unremarkable. No mass. KIDNEYS AND URETERS: Stable appearance of nonspecific hyperdense parenchymal focus in the medial left interpolar region. No hydronephrosis. No solid mass. VASCULATURE: Unremarkable. No aortic aneurysm. No aortic atherosclerotic calcification or mural plaque present. BOWEL: Colonic diverticulosis. No obstruction. No gross mural thickening. APPENDIX: Unremarkable. Normal appendix. PERITONEUM: Unremarkable. No free fluid. No free air. LYMPH NODES: Unremarkable. No enlarged lymph nodes. BLADDER: Unremarkable. REPRODUCTIVE: Prostatomegaly. BONES: No acute fracture. OTHER FINDINGS: None. IMPRESSION: No acute abdominal pelvic pathology Stable appearance of nonspecific hyperdense focus in the medial cortex of the left renal midpole. No significant interval change.
[2019-03-22] MEDS: Enoxaparin 40 mg Syringe SC SCH (15:53)
[2019-03-22 20:13] LABS: TROPONIN I < 0.01 ng/mL
[2019-03-22 20:32] LABS: CK-MB 3.2 ng/mL (0.0-3.6)
[2019-03-23 00:19] LABS: BLOOD UREA NITROGEN 6 mg/dL (7-21); GFR NON-AFRICAN AMERICAN > 60
[2019-03-23] MEDS ORDERED: Magnesium Sulfate 2 gm/50 ml 2 GM/50 ML BAG IVPB ONE (00:25)
[2019-03-23] MEDS ORDERED: Potassium Chloride 20 mEq ER Tab PO STA (00:27)
[2019-03-23 02:12] VITALS: RESP 20
[2019-03-23] MEDS ORDERED: Potassium Chloride 20 mEq ER Tab PO ONE (02:30)
[2019-03-23] MEDS ORDERED: Pantoprazole 40 mg Susp UD PO SCH (06:00)
[2019-03-23 06:40] LABS: BASO # 0.01 K/mm3 (0.0-2.0); BASO % 0.4 % (0.0-3.0); EOS % 1.6 % (1.5-5.0); MEAN CELL VOLUME 87.8 fl (80.0-105.0); MEAN CORPUSCULAR HEMOGLOBIN 28.2 pg (25.0-35.0); MEAN CORPUSCULAR HGB CONC 32.2 g/dl (31.0-37.0); MEAN PLATELET VOLUME 10.6 fl (7.0-11.0); MONO # 0.2 (0.1-0.6); MONO % 6.1 % (1.0-6.0); RBC 4.25 10^6/uL (3.5-6.1); RED CELL DISTRIBUTION WIDTH 15.5 % (11.5-14.5); WHITE BLOOD COUNT 2.5 10^3/uL (4.5-11.0)
[2019-03-23 07:29] LABS: ALB/GLOB RATIO 1.4 (1.1-1.8); ALBUMIN 4.4 g/dL (3.0-4.8); ALT/SGPT 93 U/L (7-56); AST/SGOT 199 U/L (17-59); BLOOD UREA NITROGEN 5 mg/dL (7-21); CALCIUM 9.2 mg/dL (8.4-10.5); GFR NON-AFRICAN AMERICAN > 60
[2019-03-23] MEDS: Multivitamin Therapeutic Tab PO SCH (08:37)
[2019-03-23 08:50] LABS: HEPATITIS B SURFACE AG Negative (NEGATIVE)
[2019-03-23 08:56] LABS: HEPATITIS A IGM NEGATIVE (NEGATIVE); HEPATITIS B CORE AB NEGATIVE (NEGATIVE)
[2019-03-23 09:04] LABS: HEPATITIS C ANTIBODY NEGATIVE (NEGATIVE)
[2019-03-23] MEDS: Enoxaparin 40 mg Syringe SC SCH (11:15)
--- NOTE | 2019-03-23 11:29 | CARD ---
APPROVED REPORT Date of service: 03/22/2019 EKG Measurement Heart [id number] <Conclusion> Normal sinus rhythm Moderate voltage criteria for LVH, may be normal variant Borderline ECG
--- NOTE | 2019-03-23 14:27 | CP.PCM.PN ---
<Radha Garner - Last Filed: 03/23/19 14:12> Subjective - Date & Time of Evaluation Date of Evaluation: 03/23/19 Time of Evaluation: 14:12 - Subjective Subjective: Radha Garner, PGY-1, Internal Medicine Progress Note for Dr. Silverio Patient was seen and evaluated at bedside this morning. Patient had no acute overnight events. Patient reported 6-7 episodes of diarrhea but was tolerating food well with improvement in chest and abdominal pain. 12-point ROS was unremarkable except for what was mentioned above. Objective - Vital Signs/Intake and Output Vital Signs (last 24 hours): Temp Pulse Resp BP Pulse Ox 98.0 F 98 H 20 129/96 H 98 03/23/19 06:00 03/23/19 11:16 03/23/19 06:00 03/23/19 11:16 03/23/19 06:00 Intake and Output: 03/23/19 03/23/19 06:59 18:59 Intake Total 1620 Output Total 2500 Balance -880 - Medications Medications: Current Medications Amlodipine Besylate (Norvasc) 5 mg PO DAILY [facility] Last Admin: 03/23/19 11:16 Dose: 5 mg Aspirin (Ecotrin) 81 mg PO DAILY [facility] Last Admin: 03/23/19 11:15 Dose: 81 mg Enoxaparin Sodium (Lovenox) 40 mg SC DAILY [facility]; Protocol Last Admin: 03/23/19 11:15 Dose: 40 mg Folic Acid (Folic Acid) 1 mg PO DAILY [facility] Last Admin: 03/23/19 11:15 Dose: 1 mg Lorazepam (Ativan) 1 mg IVP Q2 PRN; Protocol PRN Reason: Symptoms of alcohol withdrawl Last Admin: 03/23/19 08:37 Dose: 1 mg Multivitamins (Thera Tab) 1 tab PO 0800 [facility] Last Admin: 03/23/19 08:37 Dose: 1 tab Ondansetron HCl (Zofran Inj) 4 mg IVP Q6H PRN PRN Reason: Nausea/Vomiting Pantoprazole Sodium (Protonix Susp) 40 mg PO 0600 [facility] Last Admin: 03/23/19 06:26 Dose: 40 mg Paroxetine HCl (Paxil) 10 mg PO DAILY [facility] Last Admin: 03/23/19 11:16 Dose: 10 mg Thiamine HCl (Vitamin B1 Tab) 100 mg PO DAILY [facility] Last Admin: 03/23/19 11:16 Dose: 100 mg - Labs Labs: 03/23/19 06:00 03/23/19 06:00 - Constitutional Appears: Well, Non-toxic, No Acute Distress - Head Exam Head Exam: ATRAUMATIC, NORMAL INSPECTION, NORMOCEPHALIC - Eye Exam Eye Exam: EOMI Pupil Exam: NORMAL ACCOMODATION, PERRL - ENT Exam ENT Exam: Mucous Membranes Moist - Neck Exam Neck Exam: Normal Inspection - Respiratory Exam Respiratory Exam: Clear to Ausculation Bilateral, NORMAL BREATHING PATTERN. absent: Rales, Rhonchi, Wheezes - GI/Abdominal Exam GI & Abdominal Exam: Soft, Normal Bowel Sounds. absent: Firm, Guarding, Rigid, Tenderness - Extremities Exam Extremities Exam: Full ROM, Normal Capillary Refill, Normal Inspection - Neurological Exam Neurological Exam: Alert, Awake, CN II-XII Intact, Oriented x3 - Psychiatric Exam Psychiatric exam: Normal Affect, Normal Mood - Skin Skin Exam: Dry, Intact, Normal Color Assessment and Plan - Assessment and Plan (Free Text) Assessment: 43 year old male with past medical history of hypertension, colitis, anxiety, depression, alcohol abuse, cocaine abuse presented for chest pain, abdominal pain, multiple episodes of vomiting, and diarrhea. Plan: Chest pain with ACS rule out -EKG 03/22: NSR with LVH -Tropx3: negative -Continue with aspirin 81 mg daily -likely cocaine induced Abdominal pain 2/2 to alcohol use -CT abdomen and pelvis 03/22: no acute pathology, stable appearance of nonspecific hyperdense focus in the medial cortex of the left renal midpole. -Continue zofran 4 Q6PRN for nausea -Continue protonix 40 mg for possible gastritis -Patient had multiple episodes of diarrhea today -Will await C. Diff toxin results -Tolerating HHD well Elevated LFTs 2/2 to alcohol abuse -AST improved, ALT worsened, Bilirubin worsened -AST:ALT>2:1 -Continue to monitor Alcohol abuse/withdrawal -Alcohol level on admission: 159 -CIWA protocol initiated -CIWA: 5,2,2,3,2,4 -Continue with ativan 1mg Q2PRN for symptoms of withdrawal -Continue with MVI, thiamine, folic acid -Continue seizure and fall precautions Leukopenia and normocytic anemia -Chronic -Likely due to alcohol abuse Hypertension -Continue with norvasc Depression -Continue with paxil Polysubstance abuse -UDS: positive for cocaine -Counseled patient regarding cocaine abuse GI prophylaxis: protonix DVT prophylaxis: lovenox Patient plan discussed with Dr. Silverio <Luisito Silverio - Last Filed: 03/25/19 15:21> Objective - Vital Signs/Intake and Output Vital Signs (last 24 hours): Temp Pulse Resp BP Pulse Ox 98.5 F 86 20 116/81 99 03/24/19 08:08 03/24/19 11:17 03/24/19 08:08 03/24/19 11:17 03/24/19 08:08 - Labs Labs: 03/24/19 05:30 03/24/19 05:30 Attending/Attestation - Attestation I have personally seen and examined this patient.: Yes I have fully participated in the care of the patient.: Yes I have reviewed all pertinent clinical information, including history, physical exam and plan: Yes Notes (Text): 03/25/19 15:21 Medical record note made by the resident after discussion with my direction and input after the patient was personally seen and examined by me. I have reviewed the chart and agree that the record accurately reflects by personal performance of the history, physical exam, data review, and medical decision-making, in the course for the patient. I have also personally directed the plan of care.
[2019-03-23 16:04] VITALS: O2SAT 99
[2019-03-24] MEDS ORDERED: Pantoprazole 40 mg EC Tab PO SCH (06:00)
[2019-03-24 06:07] LABS: BASO # 0.01 K/mm3 (0.0-2.0); BASO % 0.3 % (0.0-3.0); EOS # 0.1 (0.0-0.7); EOS % 1.7 % (1.5-5.0); HEMOGLOBIN 11.8 g/dL (14.0-18.0); LYMPH # 1.2 (1.2-3.4); LYMPH % 34.4 % (22.0-35.0); MEAN CELL VOLUME 88.7 fl (80.0-105.0); MEAN CORPUSCULAR HEMOGLOBIN 28.4 pg (25.0-35.0); MEAN PLATELET VOLUME 11.1 fl (7.0-11.0); MONO # 0.2 (0.1-0.6); MONO % 5.4 % (1.0-6.0); RBC 4.16 10^6/uL (3.5-6.1); RED CELL DISTRIBUTION WIDTH 15.4 % (11.5-14.5); WHITE BLOOD COUNT 3.5 10^3/uL (4.5-11.0)
[2019-03-24 07:13] LABS: ALB/GLOB RATIO 1.4 (1.1-1.8); ALBUMIN 4.1 g/dL (3.0-4.8); ALT/SGPT 102 U/L (7-56); AST/SGOT 169 U/L (17-59); BLOOD UREA NITROGEN 16 mg/dL (7-21); CALCIUM 9.4 mg/dL (8.4-10.5); GFR NON-AFRICAN AMERICAN > 60
[2019-03-24 08:09] VITALS: BP 116/81; PULSE 86; TEMP 98.5
[2019-03-24] MEDS: Multivitamin Therapeutic Tab PO SCH (08:44)
[2019-03-24] MEDS: Enoxaparin 40 mg Syringe SC SCH (11:14)
--- NOTE | 2019-03-24 17:16 | CP.PCM.DIS ---
<Radha Garner - Last Filed: 03/24/19 17:07> Provider - Provider Date of Admission: 03/22/19 10:01 Attending physician: Luisito Silverio MD Time Spent in preparation of Discharge (in minutes): 45 Hospital Course - Lab Results Lab Results: Micro Results 03/22/19 14:30 Stool C. difficile Antigen & Toxins A,B - Final 03/22/19 08:20 Urine,Clean Catch Urine Culture - Final No Growth (<1,000 CFU/ML) Most Recent Lab Values WBC 3.5 10^3/uL (4.5-11.0) L D 03/24/19 05:30 RBC 4.16 10^6/uL (3.5-6.1) 03/24/19 05:30 Hgb 11.8 g/dL (14.0-18.0) L 03/24/19 05:30 Hct 36.9 % (42.0-52.0) L 03/24/19 05:30 MCV 88.7 fl (80.0-105.0) 03/24/19 05:30 MCH 28.4 pg (25.0-35.0) 03/24/19 05:30 MCHC 32.0 g/dl (31.0-37.0) 03/24/19 05:30 RDW 15.4 % (11.5-14.5) H 03/24/19 05:30 Plt Count 143 10^3/uL (120.0-450.0) 03/24/19 05:30 MPV 11.1 fl (7.0-11.0) H 03/24/19 05:30 Neut % (Auto) 58.2 % (50.0-68.0) 03/24/19 05:30 Lymph % (Auto) 34.4 % (22.0-35.0) 03/24/19 05:30 [place] % (Auto) 5.4 % (1.0-6.0) 03/24/19 05:30 Eos % (Auto) 1.7 % (1.5-5.0) 03/24/19 05:30 Baso % (Auto) 0.3 % (0.0-3.0) 03/24/19 05:30 Lymph # (Auto) 1.2 (1.2-3.4) 03/24/19 05:30 [place] # (Auto) 0.2 (0.1-0.6) 03/24/19 05:30 Eos # (Auto) 0.1 (0.0-0.7) 03/24/19 05:30 Baso # (Auto) 0.01 K/mm3 (0.0-2.0) 03/24/19 05:30 Absolute Neuts (auto) 2.03 (1.4-6.5) 03/24/19 05:30 Sodium 135 mmol/L (132-148) 03/24/19 05:30 Potassium 4.0 mmol/L (3.6-5.0) 03/24/19 05:30 Chloride 99 mmol/L (98-107) 03/24/19 05:30 Carbon Dioxide 25 mmol/L (21-33) 03/24/19 05:30 Anion Gap 14 (10-20) 03/24/19 05:30 BUN 16 mg/dL (7-21) 03/24/19 05:30 Creatinine 0.8 mg/dl (0.8-1.5) 03/24/19 05:30 Est GFR ( Amer) > 60 03/24/19 05:30 Est GFR (Non-Af Amer) > 60 03/24/19 05:30 Random Glucose 105 mg/dL (70-110) 03/24/19 05:30 Calcium 9.4 mg/dL (8.4-10.5) 03/24/19 05:30 Phosphorus 3.3 mg/dL (2.5-4.5) 03/23/19 06:00 Magnesium 2.2 mg/dL (1.7-2.2) 03/23/19 06:00 Total Bilirubin 0.3 mg/dL (0.2-1.3) 03/24/19 05:30 AST 169 U/L (17-59) H 03/24/19 05:30 ALT 102 U/L (7-56) H 03/24/19 05:30 Alkaline Phosphatase 50 U/L (38-126) 03/24/19 05:30 Lactate Dehydrogenase 797 U/L (333-699) H 03/22/19 19:45 Total Creatine Kinase 594 U/L (35-230) H 03/22/19 19:45 CK-MB (CK-2) 3.2 ng/mL (0.0-3.6) 03/22/19 19:45 CK-MB (CK-2) % Cancelled 03/22/19 07:45 Troponin I < 0.01 ng/mL 03/22/19 19:45 Total Protein 7.1 g/dL (5.8-8.3) 03/24/19 05:30 Albumin 4.1 g/dL (3.0-4.8) 03/24/19 05:30 Globulin 3.0 gm/dL 03/24/19 05:30 Albumin/Globulin Ratio 1.4 (1.1-1.8) 03/24/19 05:30 Lipase 222 U/L (23-300) 03/22/19 07:45 Urine Color Yellow (YELLOW) 03/22/19 08:20 Urine Appearance Clear (CLEAR) 03/22/19 08:20 Urine pH 6.0 (4.7-8.0) 03/22/19 08:20 Ur Specific [place] >= 1.030 (1.005-1.035) 03/22/19 08:20 Urine Protein 30 mg/dL (<30 mg/dL) H 03/22/19 08:20 Urine Glucose (UA) Negative mg/dL (NEGATIVE) 03/22/19 08:20 Urine Ketones 15 mg/dL (NEGATIVE) H 03/22/19 08:20 Urine Blood Trace-lysed (NEGATIVE) H 03/22/19 08:20 Urine Nitrate Negative (NEGATIVE) 03/22/19 08:20 Urine Bilirubin Negative (NEGATIVE) 03/22/19 08:20 Urine Urobilinogen 0.2 E.U./dL (<1 E.U./dL) 03/22/19 08:20 Ur Leukocyte Esterase Negative Georg[place]/uL (NEGATIVE) 03/22/19 08:20 Urine RBC 0 - 2 /hpf (0-2) 03/22/19 08:20 Urine WBC 1 - 3 /hpf (0-6) 03/22/19 08:20 Ur Epithelial Cells 0 - 2 /hpf (0-5) 03/22/19 08:20 Urine Bacteria Few /hpf (NONE) 03/22/19 08:20 Urine Opiates Screen Negative (NEGATIVE) 03/22/19 08:20 Urine Methadone Screen Negative (NEGATIVE) 03/22/19 08:20 Ur Barbiturates Screen Negative (NEGATIVE) 03/22/19 08:20 Ur Phencyclidine Scrn Negative (NEGATIVE) 03/22/19 08:20 Ur Amphetamines Screen Negative (NEGATIVE) 03/22/19 08:20 U Benzodiazepines Scrn Negative (NEGATIVE) 03/22/19 08:20 U Oth Cocaine Metabols Positive (NEGATIVE) H 03/22/19 08:20 U Cannabinoids Screen Negative (NEGATIVE) 03/22/19 08:20 Alcohol, Quantitative 159 mg/dL (0-10) H 03/22/19 07:45 Hepatitis A IgM Ab Negative (NEGATIVE) 03/22/19 13:10 Hep Bs Antigen Negative (NEGATIVE) 03/22/19 13:10 Hep B Core IgM Ab Negative (NEGATIVE) 03/22/19 13:10 Hepatitis C Antibody Negative (NEGATIVE) 03/22/19 13:10 HIV 1&2 Antibody Screen Negative (NEGATIVE) 03/22/19 10:50 - Hospital Course Hospital Course: Radha Garner, PGY-1, Internal Medicine Discharge Summary for Dr. Silverio 43 year old male with past medical history of hypertension, colitis, anxiety, depression, alcohol use, illicit drug use presented for chest pain, abdominal pain, and vomiting. He noticed these symptoms on the morning of admission upon awaking. Chest pain was localized to left chest wall and was sharp in nature and associated with shortness of breath. Abdominal pain was in left lower quadrant and was associated with 4-5 episodes of nonbloody, foul smelling diarrhea. He admitted to drinking 4 pints of vodka and smoked cocaine the day before admission. Upon admission, EKG showed nomal sinus rhythm with no ST elevations. Troponinx3 was negative. UDS was positive for cocaine. Patient also had abdominal pain and abdominal CT showed no sign of colitis on this admission. Patient was started on protonix, zofran for nausea, and started NPO. Patient's diet was advanced as tolerated and patient tolerated diets well. Patient complained of multiple episodes of diarrhea yesterday and C. Diff stool toxin was ordered. Patient was antigen+ and toxin -. Patient has had these same results multiple times on prior admissions. Patient has finished multiple rounds of antibiotics for this diagnosis in the past. Patient had elevated LFTs likely 2/2 to alcohol use as AST: ALT was more than 2:1 ratio. In addition, alcohol level on admission was 159. CIWA was initiated. CIWA scores were low during this admission. Today, CIWA scores were low consistently at 4 while patient has been on ativan 1 mg Q2PRN, MVI, thiamine, and folic acid. Patient was on seizure and fall precautions. Patient was counseled regarding substance and alcohol abuse. Patient was found to be stable and ready for discharge. Patient was told to follow up with PCP within 3-5 days. Patient was told to take all medications as prescribed. Patient was told to return to the emergency room if he had any new or concerning symptoms. This is a brief summary of the events that occurred during this hospital visit. For more information, please refer to hospital documentation. Discharge diagnoses Chest pain with ACS rule out Abdominal pain 2/2 to alcohol use Transaminitis 2/2 to alcohol use Alcohol abuse/withdrawal Hypertension Depression Cocaine abuse - Date & Time of H&P Date of H&P: 03/22/19 Time of H&P: 10:29 Discharge Exam - Head Exam Head Exam: ATRAUMATIC, NORMAL INSPECTION, NORMOCEPHALIC - Eye Exam Eye Exam: EOMI, PERRL - Respiratory Exam Respiratory Exam: Clear to PA & Lateral, NORMAL BREATHING PATTERN. absent: Rales, Rhonchi, Wheezes - Cardiovascular Exam Cardiovascular Exam: REGULAR RHYTHM, RRR, +S1, +S2. absent: Clicks, Gallop, Rubs - GI/Abdominal Exam GI & Abdominal Exam: Normal Bowel Sounds, Soft. absent: Distended, Firm, Guarding, Tenderness - Extremities Exam Extremities exam: full ROM - Neurological Exam Neurological exam: Alert, CN II-XII Intact, Normal Gait, Oriented x3 - Psychiatric Exam Psychiatric exam: Normal Affect, Normal Mood - Skin Skin Exam: Dry, Intact, Normal Color Discharge Plan - Discharge Medications Prescriptions: amLODIPine [Norvasc] 5 mg PO DAILY 30 Days #30 tab Aspirin [Ecotrin] 81 mg PO DAILY 30 Days #30 tabec Folic Acid 1 mg PO DAILY 30 Days #30 tab Multivitamin Therapeutic Tab [Thera Tab] 1 tab PO 0800 30 Days #30 tab Thiamine [Vitamin B1 Tab] 100 mg PO DAILY 30 Days #30 tab - Follow Up Plan Condition: FAIR Disposition: HOME/ ROUTINE Instructions: Cocaine Use Disorder, Clostridium difficile, Chest Pain (DC), Drug Abuse and Drug Addiction (DC), Alcohol Withdrawal (DC) Additional Instructions: Please follow up with primary care doctor within 3-5 days. Please take all medications as prescribed. Please abstain from cocaine and alcohol use. Please return to the emergency department if you have any new or concerning symptoms Referrals: Ailyn Garsia MD [Medical Doctor] - <Luisito Silverio - Last Filed: 03/25/19 15:12> Provider - Provider Date of Admission: 03/22/19 10:01 Attending physician: Luisito Silverio MD Hospital Course - Lab Results Lab Results: Micro Results 03/22/19 14:30 Stool C. difficile Antigen & Toxins A,B - Final 03/22/19 08:20 Urine,Clean Catch Urine Culture - Final No Growth (<1,000 CFU/ML) Most Recent Lab Values WBC 3.5 10^3/uL (4.5-11.0) L D 03/24/19 05:30 RBC 4.16 10^6/uL (3.5-6.1) 03/24/19 05:30 Hgb 11.8 g/dL (14.0-18.0) L 03/24/19 05:30 Hct 36.9 % (42.0-52.0) L 03/24/19 05:30 MCV 88.7 fl (80.0-105.0) 03/24/19 05:30 MCH 28.4 pg (25.0-35.0) 03/24/19 05:30 MCHC 32.0 g/dl (31.0-37.0) 03/24/19 05:30 RDW 15.4 % (11.5-14.5) H 03/24/19 05:30 Plt Count 143 10^3/uL (120.0-450.0) 03/24/19 05:30 MPV 11.1 fl (7.0-11.0) H 03/24/19 05:30 Neut % (Auto) 58.2 % (50.0-68.0) 03/24/19 05:30 Lymph % (Auto) 34.4 % (22.0-35.0) 03/24/19 05:30 [place] % (Auto) 5.4 % (1.0-6.0) 03/24/19 05:30 Eos % (Auto) 1.7 % (1.5-5.0) 03/24/19 05:30 Baso % (Auto) 0.3 % (0.0-3.0) 03/24/19 05:30 Lymph # (Auto) 1.2 (1.2-3.4) 03/24/19 05:30 [place] # (Auto) 0.2 (0.1-0.6) 03/24/19 05:30 Eos # (Auto) 0.1 (0.0-0.7) 03/24/19 05:30 Baso # (Auto) 0.01 K/mm3 (0.0-2.0) 03/24/19 05:30 Absolute Neuts (auto) 2.03 (1.4-6.5) 03/24/19 05:30 Sodium 135 mmol/L (132-148) 03/24/19 05:30 Potassium 4.0 mmol/L (3.6-5.0) 03/24/19 05:30 Chloride 99 mmol/L (98-107) 03/24/19 05:30 Carbon Dioxide 25 mmol/L (21-33) 03/24/19 05:30 Anion Gap 14 (10-20) 03/24/19 05:30 BUN 16 mg/dL (7-21) 03/24/19 05:30 Creatinine 0.8 mg/dl (0.8-1.5) 03/24/19 05:30 Est GFR ( Amer) > 60 03/24/19 05:30 Est GFR (Non-Af Amer) > 60 03/24/19 05:30 Random Glucose 105 mg/dL (70-110) 03/24/19 05:30 Calcium 9.4 mg/dL (8.4-10.5) 03/24/19 05:30 Phosphorus 3.3 mg/dL (2.5-4.5) 03/23/19 06:00 Magnesium 2.2 mg/dL (1.7-2.2) 03/23/19 06:00 Total Bilirubin 0.3 mg/dL (0.2-1.3) 03/24/19 05:30 AST 169 U/L (17-59) H 03/24/19 05:30 ALT 102 U/L (7-56) H 03/24/19 05:30 Alkaline Phosphatase 50 U/L (38-126) 03/24/19 05:30 Lactate Dehydrogenase 797 U/L (333-699) H 03/22/19 19:45 Total Creatine Kinase 594 U/L (35-230) H 03/22/19 19:45 CK-MB (CK-2) 3.2 ng/mL (0.0-3.6) 03/22/19 19:45 CK-MB (CK-2) % Cancelled 03/22/19 07:45 Troponin I < 0.01 ng/mL 03/22/19 19:45 Total Protein 7.1 g/dL (5.8-8.3) 03/24/19 05:30 Albumin 4.1 g/dL (3.0-4.8) 03/24/19 05:30 Globulin 3.0 gm/dL 03/24/19 05:30 Albumin/Globulin Ratio 1.4 (1.1-1.8) 03/24/19 05:30 Lipase 222 U/L (23-300) 03/22/19 07:45 Urine Color Yellow (YELLOW) 03/22/19 08:20 Urine Appearance Clear (CLEAR) 03/22/19 08:20 Urine pH 6.0 (4.7-8.0) 03/22/19 08:20 Ur Specific [place] >= 1.030 (1.005-1.035) 03/22/19 08:20 Urine Protein 30 mg/dL (<30 mg/dL) H 03/22/19 08:20 Urine Glucose (UA) Negative mg/dL (NEGATIVE) 03/22/19 08:20 Urine Ketones 15 mg/dL (NEGATIVE) H 03/22/19 08:20 Urine Blood Trace-lysed (NEGATIVE) H 03/22/19 08:20 Urine Nitrate Negative (NEGATIVE) 03/22/19 08:20 Urine Bilirubin Negative (NEGATIVE) 03/22/19 08:20 Urine Urobilinogen 0.2 E.U./dL (<1 E.U./dL) 03/22/19 08:20 Ur Leukocyte Esterase Negative Georges/uL (NEGATIVE) 03/22/19 08:20 Urine RBC 0 - 2 /hpf (0-2) 03/22/19 08:20 Urine WBC 1 - 3 /hpf (0-6) 03/22/19 08:20 Ur Epithelial Cells 0 - 2 /hpf (0-5) 03/22/19 08:20 Urine Bacteria Few /hpf (NONE) 03/22/19 08:20 Urine Opiates Screen Negative (NEGATIVE) 03/22/19 08:20 Urine Methadone Screen Negative (NEGATIVE) 03/22/19 08:20 Ur Barbiturates Screen Negative (NEGATIVE) 03/22/19 08:20 Ur Phencyclidine Scrn Negative (NEGATIVE) 03/22/19 08:20 Ur Amphetamines Screen Negative (NEGATIVE) 03/22/19 08:20 U Benzodiazepines Scrn Negative (NEGATIVE) 03/22/19 08:20 U Oth Cocaine Metabols Positive (NEGATIVE) H 03/22/19 08:20 U Cannabinoids Screen Negative (NEGATIVE) 03/22/19 08:20 Alcohol, Quantitative 159 mg/dL (0-10) H 03/22/19 07:45 Hepatitis A IgM Ab Negative (NEGATIVE) 03/22/19 13:10 Hep Bs Antigen Negative (NEGATIVE) 03/22/19 13:10 Hep B Core IgM Ab Negative (NEGATIVE) 03/22/19 13:10 Hepatitis C Antibody Negative (NEGATIVE) 03/22/19 13:10 HIV 1&2 Antibody Screen Negative (NEGATIVE) 03/22/19 10:50 Attending/Attestation - Attestation I have personally seen and examined this patient.: Yes I have fully participated in the care of the patient.: Yes I have reviewed all pertinent clinical information, including history, physical exam and plan: Yes Notes (Text): 03/25/19 15:07 Medical record note made by the resident after discussion with my direction and input after the patient was personally seen and examined by me. I have reviewed the chart and agree that the record accurately reflects by personal performance of the history, physical exam, data review, and medical decision-making, in the course for the patient. I have also personally directed the plan of care. 43-year-old M with PMH of HTN, colitis, anxiety, alcohol/substance abuse and non compliance with medication was admitted with abdominal pain, diarrhea and alcohol withdrawal.Patient was monitored for alcohol withdrawal with [facility] Protocol.Alcohol withdrawal are improved.LFT are coming down.Alcohol withdrawal are improved.Issue of ongoing alcohol abuse was discussed in detail with patient Stool studies were positive for C diff antigen but were negative for toxin.These finding are chronic, was also noted on last admision.His diarrhea is improved.He is tolerating food. Patient is ambulatory. He will be discharged home and will follow up with PCP. Prognosis is guarded due to ongoing alcohol/drug abuse and non compliance.
== END 2019-03-24 16:57 | disposition home or self-care (01) ==
LOC: ED 07:11 → ERH 10:01 → 3RNO 11:01
PROVIDERS: ADMIT Internal Medicine; ATTEND Internal Medicine
DX: R07.9 Chest pain, unspecified (principal); F10.239 Alcohol dependence with withdrawal, unspecified; A04.72 Enterocolitis due to Clostridium difficile, not specified as recurrent; F14.10 Cocaine abuse, uncomplicated; I10 Essential (primary) hypertension; F32.9 Major depressive disorder, single episode, unspecified; F17.210 Nicotine dependence, cigarettes, uncomplicated; I27.20 Pulmonary hypertension, unspecified; I07.1 Rheumatic tricuspid insufficiency; F41.9 Anxiety disorder, unspecified; K70.10 Alcoholic hepatitis without ascites; D64.9 Anemia, unspecified; D72.819 Decreased white blood cell count, unspecified; N28.1 Cyst of kidney, acquired; Y90.6 Blood alcohol level of 120-199 mg/100 ml; Z91.14 Patient's other noncompliance with medication regimen
CPT/HCPCS: 36415; 74176; 80053; 80074; 80320; 80324; 80345; 80346; 80349; 80353; 80358; 80361; 81001; 82550; 82553; 83615; 83690; 83735; 83992; 84100; 84484; 85025; 85027; 86703; 87086; 87324; 93005; 96361; 96372; 96374; 96375; 96376; 99285; C9113; G0378; J1650; J2060; J2405; J3411; J7030